=== PATIENT | female | born 1985 | race Caucasian/White ===

== ENCOUNTER 2017-02-28 13:53 | Emergency (ER) | payer OTHER ==
[2017-02-28 14:02] VITALS: TEMP 98.9; BMI 12.9
--- NOTE | 2017-02-28 14:42 | PDOC ---
History of Present Illness - General History Source: Patient Exam Limitations: No Limitations - History of Present Illness Initial Comments: 02/28/17 14:47 The patient is a 31 year-old woman with a significant past medical history of hypertension, elevated liver enzymes (1 year ago), gastroesophageal reflux disease and psoriasis who presents to the emergency department for further evaluation of right foot swelling and pain for the past week. Patient states that this has happened before with her left leg, for which she was informed that her leg swelling/pain was due to her elevated liver enzymes. She believes that her right leg is infected as she ripped and might've had a cut. She also notes redness upon her right leg for the past 2-3 days. She reports unbearable pain with a rated 10/10 in severity that is exacerbated when walking. She states that she is unable to move around and is currently ambulatory with her father's wheelchair. Today, she notes that her foot is draining, thus presenting to the ED. She also reports dramatic weight loss over the past 2-3 years. She believes she is currently 75 lbs. She denies loss of appetite. She denies fever, chills, weakness. No numbness, weakness and tingling sensations to her extremities No chest pain, lightheadedness, dizziness, headaches, visual changes No abdominal pain, nausea, vomiting, diarrhea. No urinary complaints She has an appointment with GI Specialist, Dr. Moss on 03/05/2017. Allergies: No Known Drug Allergies Past Surgical History: None reported. Social History: Current everyday smoker (5 cigarettes/day). Occasional ETOH use (recent ETOH use approximately 2 days ago ) No recreational drug use. Primary Care Physician: Dr. Oanh Cordon Retail Delivery Driver: Dr. Wesley Moss <Charlene Ayala - Last Filed: 02/28/17 15:27> <Clare Isabel - Last Filed: 02/28/17 17:59> - General Chief Complaint: Edema Stated Complaint: RT FOOT SWELLING Time Seen by Provider: 02/28/17 14:42 Past History <Charlene Ayala - Last Filed: 02/28/17 15:27> - Past Medical History GI Disorders: Yes (ACID REFLUX.) HTN: Yes Liver Disease: (ELEVATED LIVER ENZYMES.) Other medical history: PSORIASIS. - Psycho/Social/Smoking Cessation Hx Anxiety: No Suicidal Ideation: No Smoking History: Current every day smoker Number of Cigarettes Smoked Daily: 5 Information on smoking cessation initiated: No Hx Alcohol Use: Yes Drug/Substance Use Hx: No Substance Use Type: Alcohol <Clare Isabel - Last Filed: 02/28/17 17:59> - Past Medical History Allergies/Adverse Reactions: Allergies Allergy/AdvReac Type Severity Reaction Status Date / Time No Known Allergies Allergy Verified 02/28/17 13:58 Home Medications: Ambulatory Orders Methadone [Dolophine -] 30 mg PO DAILY 11/15/13 Cefpodoxime Proxetil [Vantin -] 100 mg PO BID #28 tablet 12/29/13 Cephalexin Monohydrate [Keflex -] 500 mg PO Q6H #28 capsule 02/28/17 Review of Systems - Review of Systems Able to Perform ROS?: Yes Comments:: 02/28/17 14:49 Constitutional - Pt denies Fever, Chills, weakness, HEENT: denies vision changes, sore throat Respiratory: Denies cough, sob, hemoptysis Cardiac: denies chest pain, palpitations, light headedness, leg swelling Abd/GI: denies abd pain, nausea, vomiting, blood per rectum, melena, diarrhea : denies dysuria, frequency, discharge Musculoskeletal - Right foot swelling/pain. denies back pain skin - History of psoriasis. denies bruising, erythema, rash neurological: denies headache, numbness, focal weakness, tingling, ataxia, weakness hematologic: denies anemia, easy bruising, easy bleeding <Charlene Ayala - Last Filed: 02/28/17 15:27> *Physical Exam - Vital Signs Last Vital Signs Temp Pulse Resp BP Pulse Ox 98.9 F 115 H 18 97/56 98 02/28/17 13:57 02/28/17 13:57 02/28/17 13:57 02/28/17 13:57 02/28/17 13:57 - Physical Exam Comments: 02/28/17 14:50 GENERAL: The patient is awake, alert, and fully oriented. In no acute distress. +Jaundiced. +Cachetic. Strong alcohol smell on breath. HEAD: Normocephalic, atraumatic. EYES: extraocular movements intact, +sclera icteric, conjunctiva clear. ENT: Normal voice, moist mucous membranes. NECK: Normal range of motion, supple without lymphadenopathy, JVD, or masses. LUNGS: Breath sounds equal, clear to auscultation bilaterally. No wheezes, no crackles, no rales. HEART: Regular rate and rhythm, normal S1 and S2 without murmur, rub or gallop. ABDOMEN: Soft, nontender, normoactive bowel sounds. No guarding, no rebound. No masses. EXTREMITIES: Normal range of motion, bilateral edema of both feet with weeping. No clubbing or cyanosis. No cords, erythema, or tenderness. NEUROLOGICAL: Fully Oriented, Alert, Normal Mood/Affect, Motor Strength 5/5. No facial assymetry, Normal speech SKIN: Jaundiced. <Charlene Ayala - Last Filed: 02/28/17 15:27> - Vital Signs Last Vital Signs Temp Pulse Resp BP Pulse Ox 98.9 F 115 H 18 97/56 98 02/28/17 13:57 02/28/17 13:57 02/28/17 13:57 02/28/17 13:57 02/28/17 13:57 <Clare Isabel - Last Filed: 02/28/17 17:59> Heart Score/ECG Review #1 02/28/17 15:27 Reviewed and interpreted by Dr. Clare Isabel IMPRESSION: Sinus rhythm at 98 bpm with an occasional PVC. No acute ST segment changes. <Charlene Ayala - Last Filed: 02/28/17 15:27> ED Treatment Course - LABORATORY CBC & Chemistry Diagram: 02/28/17 14:40 02/28/17 14:40 <Charlene Ayala - Last Filed: 02/28/17 15:27> - LABORATORY CBC & Chemistry Diagram: 02/28/17 14:40 02/28/17 14:40 <Clare Isabel - Last Filed: 02/28/17 17:59> Medical Decision Making - Medical Decision Making 02/28/17 16:20 I, Dr. Clare Isabel, attest that the scribes documentation that appears above has been prepared under my direction and personally reviewed by me. I confirmed that the note above accurately reflects all work, treatment, procedures, and medical decision-making performed by me. Pt is thin and cachectic, strong smell of alcohol on breathe, pt c/o severe pain in the foot to the point that she cannot walk. Uric acid level added to todays labs along with alcohol level, pt says her last drink was two days ago. Pt with elevated wbc, blood cx and antibiotics ordered will admit to hospital. xray o her foot ordered 02/28/17 16:22 02/28/17 17:56 Pt refusing admision, pt is aware of elevated wbc, liver enzymes, pt is aware that she is at risk for sepsis or even , pt's mother at her bedside. Pt with aob denied drinking in the last two days, alcohol level is 200, Pt still says she has not drank recently, Pt's mother says she will return she just has to take care of her pets, Both mother and pt are aware that she should stay in hospital will order crutches for pt, mother also has a wheel chair that pt can use at home because she says she cannot walk <Clare Isabel - Last Filed: 02/28/17 17:59> *DC/Admit/Observation/Transfer - Attestations Scribe Attestion: 02/28/17 14:50 Documentation prepared by Charlene Ayala, acting as medical staff services coordinator for Clare Isabel DO. <Charlene Ayala - Last Filed: 02/28/17 15:27> <Clare Isabel - Last Filed: 02/28/17 17:59> Diagnosis at time of Disposition: Foot pain - Discharge Dispostion Disposition: AGAINST MEDICAL ADVICE Condition at time of disposition: Stable - Prescriptions Prescriptions: Cephalexin Monohydrate [Keflex -] 500 mg PO Q6H #28 capsule - Referrals Referrals: Oanh Cordon [Primary Care Provider] - - Patient Instructions Printed Discharge Instructions: DI for Sepsis -- Adult, Liver Function Tests Additional Instructions: return to ed for fever, increase pain in feet , abdomen or as needed
[2017-02-28 14:55] LABS: BASOPHIL 0.6 % (0-2.0); MCH 34.4 pg (25.7-33.7); MCHC 33.8 g/dl (32.0-36.0); MEAN CELL VOLUME 101.6 fl (80-96); MEAN PLT VOLUME 7.8 fl (7.5-11.1); NEUTROPHILS 90.1 % (42.8-82.8); PLATELET COUNT 195 K/MM3 (134-434); RDW 13.8 % (11.6-15.6)
[2017-02-28 15:25] LABS: ALBUMIN 1.2 g/dl (3.4-5.0); ALK PHOS 661 U/L (45-117); ANION GAP 13 (8-16); CALCIUM 7.6 mg/dL (8.5-10.1); CO2 25 mmol/L (21-32); COCKROFT - GAULT 109.4375; CREATININE 0.4 mg/dL (0.55-1.02); GLUCOSE,RANDOM 97 mg/dL (74-106); SGOT/AST 277 U/L (15-37); SGPT/ALT 38 U/L (12-78); TOT PROT 7.4 g/dl (6.4-8.2)
[2017-02-28] MEDS ORDERED: CEFTRIAXONE 1 GM in DEXTROSE 5%-WATER - 100 ML IVPB ONE (15:27)
[2017-02-28] MEDS ORDERED: SODIUM CHLORIDE 1,000 ML IV SCH (15:30)
[2017-02-28] MEDS ORDERED: CEFTRIAXONE 50 ML ONE (16:12)
[2017-02-28 17:59] VITALS: BP 103/72; PULSE 113
--- NOTE | 2017-03-02 00:12 | EKG ---
Test Reason : Blood Pressure : / mmHG Vent. Rate : 098 BPM Atrial Rate : 098 BPM P-R Int : 116 ms QRS Dur : 076 ms QT Int : 386 ms P-R-T Axes : 075 082 068 degrees QTc Int : 492 ms POOR DATA QUALITY, INTERPRETATION MAY BE ADVERSELY AFFECTED SINUS RHYTHM WITH PREMATURE ATRIAL COMPLEXES POSSIBLE LEFT ATRIAL ENLARGEMENT NONSPECIFIC ST ABNORMALITY PROLONGED QT ABNORMAL ECG NO PREVIOUS ECGS AVAILABLE Confirmed by EMILIA TAVERAS, MAKENNA ([id number]) on 03/02/2017 12:12:24 AM Referred By: Confirmed By:MAKENNA NIETO MD
== END 2017-02-28 18:04 | disposition left against medical advice (07) ==
LOC: SUPCPDRO 13:53 → JER 13:53
DX: M79.671 Pain in right foot (principal); I10 Essential (primary) hypertension; R74.8 Abnormal levels of other serum enzymes; K21.9 Gastro-esophageal reflux disease without esophagitis; L40.9 Psoriasis, unspecified; F17.210 Nicotine dependence, cigarettes, uncomplicated; F10.10 Alcohol abuse, uncomplicated; Y90.7 Blood alcohol level of 200-239 mg/100 ml
CPT/HCPCS: 36415; 73630-TC-RT; 80053; 80307; 84550; 84703; 85025; 87040; 93005; 93010; 96365; 99284-25

== ENCOUNTER 2017-03-13 18:11 | Emergency (ER) | payer OTHER ==
[2017-03-13 18:35] VITALS: BP 91/54; PULSE 100; TEMP 97.5; BMI 14.1
[2017-03-13] MEDS ORDERED: FOLIC ACID INJECTION - 1 MG, THIAMINE HCL 100 MG, MULTIVIT INJECTION ADULT 10 ML in SOD... IVPB ONE (19:55)
[2017-03-13] MEDS ORDERED: LACTULOSE 20 GM/30 ML UDC (FOR ORAL USE ONLY) PO ONE (19:56)
[2017-03-13] MEDS ORDERED: MAGNESIUM SULF 50% (8.12 MEQ/2 ML-1 GM VIAL) IVPB ONE (19:56)
--- NOTE | 2017-03-13 20:00 | PDOC ---
History of Present Illness - General History Source: Patient Exam Limitations: No Limitations - History of Present Illness Initial Comments: 03/13/17 20:17 The patient is a 31 year old female with a significant past medical history of elevated liver enzymes, alcohol abuse, hypertension, GERD, psoriasis ( previously on a sample portion of Otezla), and significant weight loss, who presents to the ER with bilateral lower extremity swelling for one month. Patient localizes the swelling to the ankles. She states fluid has been draining from the area and the skin has been splitting secondary to edema. Patient has difficulty walking due to pain in swollen ankles. Patient reports she was at this ER one month ago for similar symptoms. She was 75 pounds then and now measures 82 pounds, secondary to the fluid retention. Patient refused admission at that time. She was given Cephalexin and finished the medication two days ago. Patient also complains of slight generalized abdominal pain accompanied with bloating and constipation. She admits she has difficulty breathing and is concerned she may have ascites. Patient also reports feeling chills. Patient denies loss of appetite and reports her last meal was rice, cheese, and vegetables. Patient reports she took a sample portion of Otezlo but her insurance is not able to approve her of additional medication. Denies chest pain, diaphoresis Denies fever Denies nausea, vomiting, diarrhea Social Hx: Patient states she drinks a few glasses of wine and a cocktail. She smokes 5 cigs/day. Allergies: NKDA GI: Dr. Moss <Serena Baker - Last Filed: 03/14/17 00:44> <Elidia Jordan - Last Filed: 03/14/17 05:21> - General Chief Complaint: Edema Stated Complaint: BOTH LEGS SWOLLEN/INFECTED Time Seen by Provider: 03/13/17 19:36 Past History <Serena Baker - Last Filed: 03/14/17 00:44> - Past Medical History GI Disorders: Yes (ACID REFLUX.) HTN: Yes Liver Disease: (ELEVATED LIVER ENZYMES.) Other medical history: PSORIASIS - Psycho/Social/Smoking Cessation Hx Anxiety: No Suicidal Ideation: No Smoking History: Current every day smoker Have you smoked in the past 12 months: Yes Number of Cigarettes Smoked Daily: 5 Information on smoking cessation initiated: No Hx Alcohol Use: Yes Drug/Substance Use Hx: No Substance Use Type: Alcohol <Elidia Jordan - Last Filed: 03/14/17 05:21> - Past Medical History Allergies/Adverse Reactions: Allergies Allergy/AdvReac Type Severity Reaction Status Date / Time No Known Allergies Allergy Verified 03/13/17 18:29 Home Medications: Ambulatory Orders Cephalexin Monohydrate [Keflex -] 500 mg PO Q6H #28 capsule 02/28/17 Cephalexin [Keflex] 250 mg PO QID #28 capsule 03/14/17 Review of Systems - Review of Systems Able to Perform ROS?: Yes Comments:: 03/13/17 20:17 CONSTITUTIONAL: Pesent: (+) chills Absent: fever, diaphoresis, generalized weakness, malaise, loss of appetite HEENT: Absent: rhinorrhea, nasal congestion, throat pain, throat swelling, difficulty swallowing, mouth swelling, ear pain, eye pain, visual Changes CARDIOVASCULAR: Absent: chest pain, syncope, palpitations, irregular heart rate, lightheadedness , peripheral edema RESPIRATORY: Absent: cough, shortness of breath, dyspnea with exertion, orthopnea, wheezing, stridor, hemoptysis GASTROINTESTINAL: Present: (+) abdominal pain, (+) constipation Absent: nausea, vomiting, diarrhea, melena, hematochezia GENITOURINARY: Absent: dysuria, frequency, urgency, hesitancy, hematuria, flank pain, genital pain MUSCULOSKELETAL: Present: (+) bilateral ankle swelling Absent: myalgia, arthralgia, joint swelling SKIN: Present: (+) psoriasis Absent: rash, itching, pallor HEMATOLOGIC/IMMUNOLOGIC: Absent: easy bleeding, easy bruising, lymphadenopathy, frequent infections ENDOCRINE: Present: (+) weight loss Absent: unexplained weight gain, heat intolerance, cold intolerance NEUROLOGIC: Absent: headache, focal weakness or paresthesias, dizziness, unsteady gait, seizure, mental status changes, bladder or bowel incontinence PSYCHIATRIC: Absent: anxiety, depression, suicidal or homicidal ideation, hallucinations. <Serena Baker - Last Filed: 03/14/17 00:44> *Physical Exam - Vital Signs Last Vital Signs Temp Pulse Resp BP Pulse Ox 97.5 F L 100 H 19 91/54 99 03/13/17 18:30 03/13/17 18:30 03/13/17 18:30 03/13/17 18:30 03/13/17 18:30 - Physical Exam Comments: 03/13/17 20:19 GENERAL: (+) Cachectic, well nourished. Awake and alert. No acute distress. HEENT: (+) Sclera icteric. Normocephalic, atraumatic. PERRLA, EOMI. No conjunctival pallor. Moist mucous membranes. Oropharynx is clear. NECK: Supple. Full ROM. No JVD. Carotid pulses 2+ and symmetric, without bruits. No thyromegaly. No lymphadenopathy. CARDIOVASCULAR: (+) Tachycardic. Regular rhythm. No murmurs, rubs, or gallops. Distal pulses are 2+ and symmetric. PULMONARY: No evidence of respiratory distress. Lungs clear to auscultation bilaterally. No wheezing, rales or rhonchi. ABDOMINAL: Soft. Non-tender. Non-distended. No rebound or guarding. No organomegaly. Normoactive bowel sounds. MUSCULOSKELETAL No flank pain. Normal range of motion at all joints. No bony deformities or tenderness. No CVA tenderness. EXTREMITIES: No cyanosis. No clubbing. No edema. No calf tenderness. SKIN: (+) Jaundive. (+) Psoriatic red patches on upper extremities. Weeping pitting edema in the bilateral lower extremities. Normal capillary refill. NEUROLOGICAL: Alert, awake, appropriate. Cranial nerves 2-12 intact. No deficits to light touch and temperature in face, upper extremities and lower extremities. No motor deficits in the in face, upper extremities and lower extremities. Normoreflexic in the upper and lower extremities. Normal speech. Toes are down- going bilaterally. Gait is normal without ataxia. PSYCHIATRIC: Cooperative. Good eye contact. Appropriate mood and affect. <OliviaSerena - Last Filed: 03/14/17 00:44> - Vital Signs Last Vital Signs Temp Pulse Resp BP Pulse Ox 97.5 F L 100 H 19 91/54 99 03/13/17 18:30 03/13/17 18:30 03/13/17 18:30 03/13/17 18:30 03/13/17 18:30 <Elidia Jordan - Last Filed: 03/14/17 05:21> ED Treatment Course - LABORATORY CBC & Chemistry Diagram: 03/13/17 20:24 03/13/17 20:24 - RADIOLOGY Radiograph Interpretation: 03/14/17 00:[address] impression reported by Dr. Kenny Lacey: Ascites. Mild hepatomegaly with a dense echotexture consistent with fatty infiltration versus hepatocellular disease. Gallbladder was no visualized. Limited visualization of a normal size common bile duct. US Uplex 2 legs: There is no evidence of deep venous thromboses in both lower extremities. <Serena Baker - Last Filed: 03/14/17 00:44> - LABORATORY CBC & Chemistry Diagram: 03/13/17 20:24 03/13/17 20:24 <Elidia Jordan - Last Filed: 03/14/17 05:21> Medical Decision Making - Medical Decision Making 03/13/17 22:13 Pt comes in appearing jaudiced and severely cachectic with edematous and weeping calves bilaterally. She has psoriasis that is untreated and she has a history of alcohol abuse and methadone use and tobacco use. Pt complains of leg swelling. SHe was here 2 weeks ago for cellulitis of her legs and she was treated with ceftriaxone in the ER, she refused admission at that time and was sent home with keflex. 03/13/17 22:23 WBC is improving, but still high; Pt's leg edema is worse and weeping bilaterally. Pt is severely jaundiced; T bili is elevated. 03/14/17 05:14 Sono demonstrates ascites. I spoke to Dr. Modi; we discussed admitting the patient. Patient is refusing to stay; she is making up excuses. Wants to go home; she claims she needs to care for her niece. <Elidia Jordan - Last Filed: 03/14/17 05:21> *DC/Admit/Observation/Transfer - Attestations Scribe Attestion: 03/13/17 20:22 Documentation prepared by Serena Baker, acting as medical office assistant instructor for Elidia Jordan MD. <Serena Baker - Last Filed: 03/14/17 00:44> <Elidia Jordan - Last Filed: 03/14/17 05:21> Diagnosis at time of Disposition: Jaundice, Hypoalbuminemia, Alcoholic liver damage, Cachexia, Peripheral edema - Discharge Dispostion Disposition: AGAINST MEDICAL ADVICE Condition at time of disposition: Poor - Prescriptions Prescriptions: Cephalexin [Keflex] 250 mg PO QID #28 capsule - Referrals Referrals: Oanh Cordon [Primary Care Provider] -
[2017-03-13] MEDS ORDERED: LACTULOSE 20 GM/30 ML UDC (FOR ORAL USE ONLY) ONE (20:32)
[2017-03-13] MEDS ORDERED: MAGNESIUM SULF 50% (8.12 MEQ/2 ML-1 GM VIAL) ONE (20:32)
[2017-03-13 20:33] LABS: BASOPHIL 0.8 % (0-2.0); EOSINOPHIL 0.6 % (0-4.5); MCH 34.4 pg (25.7-33.7); MCHC 33.5 g/dl (32.0-36.0); MEAN CELL VOLUME 102.6 fl (80-96); MEAN PLT VOLUME 8.2 fl (7.5-11.1); NEUTROPHILS 85.9 % (42.8-82.8); PLATELET COUNT 232 K/MM3 (134-434); RDW 15.5 % (11.6-15.6); WHITE BLOOD COUNT 15.6 K/mm3 (4.0-10.0)
[2017-03-13 21:10] LABS: ALBUMIN 1.3 g/dl (3.4-5.0); AMYLASE 80 U/L (25-115); ANION GAP 13 (8-16); CALCIUM 7.3 mg/dL (8.5-10.1); CO2 24 mmol/L (21-32); COCKROFT - GAULT 119.6545; CREATININE 0.4 mg/dL (0.55-1.02); GLUCOSE,RANDOM 76 mg/dL (74-106); SGOT/AST 205 U/L (15-37); SGPT/ALT 24 U/L (12-78)
[2017-03-13 21:12] LABS: ALK PHOS 623 U/L (45-117); BILIRUBIN,TOTAL 5.9 mg/dL (0.2-1.0); TOT PROT 7.6 g/dl (6.4-8.2)
--- NOTE | 2017-03-16 12:51 | EKG ---
Test Reason : Blood Pressure : / mmHG Vent. Rate : 073 BPM Atrial Rate : 073 BPM P-R Int : 132 ms QRS Dur : 084 ms QT Int : 448 ms P-R-T Axes : 072 083 068 degrees QTc Int : 493 ms NORMAL SINUS RHYTHM POSSIBLE LEFT ATRIAL ENLARGEMENT RSR' OR QR PATTERN IN V1 SUGGESTS RIGHT VENTRICULAR CONDUCTION DELAY PROLONGED QT ABNORMAL ECG WHEN COMPARED WITH ECG OF 28-FEB-2017 15:04, PREMATURE ATRIAL COMPLEXES ARE NO LONGER PRESENT Confirmed by SOTO GRAFF MD ([id number]) on 03/16/2017 12:51:17 PM Referred By: Confirmed By:SOTO GRAFF MD
== END 2017-03-14 00:45 | disposition left against medical advice (07) ==
LOC: JER 18:11
PROC: 3E0337Z Introduction of Electrolytic and Water Balance Substance into Peripheral Vein, Percutaneous Approach (ICD-10-PCS; principal; 2017-03-13)
PROC: 3E033GC Introduction of Other Therapeutic Substance into Peripheral Vein, Percutaneous Approach (ICD-10-PCS; 2017-03-13)
DX: R17 Unspecified jaundice (principal); L08.89 Other specified local infections of the skin and subcutaneous tissue; R18.8 Other ascites; I10 Essential (primary) hypertension; K21.9 Gastro-esophageal reflux disease without esophagitis; R94.5 Abnormal results of liver function studies; R63.4 Abnormal weight loss; Z68.1 Body mass index [BMI] 19.9 or less, adult; F10.10 Alcohol abuse, uncomplicated; F17.210 Nicotine dependence, cigarettes, uncomplicated
CPT/HCPCS: 36415; 76700-TC; 80053; 82140; 82150; 83690; 83880; 85025; 93005; 93010; 93970-TC; 96361; 96374; 99283-25

== ENCOUNTER 2017-03-19 15:28 | Inpatient (IN) | payer OTHER ==
[2017-03-19 15:38] VITALS: BMI 12.9
[2017-03-19] MEDS ORDERED: SODIUM CHLORIDE 1,000 ML IV ONE (17:18)
--- NOTE | 2017-03-19 17:18 | PDOC ---
History of Present Illness <Channing Cavazos - Last Filed: 03/19/17 19:14> - General History Source: Patient Exam Limitations: No Limitations - History of Present Illness Initial Comments: 03/19/17 20:29 The patient is a 31 year old female with a significant past medical history of elevated liver enzymes, alcohol abuse, hypertension, GERD, psoriasis, and significant weight loss, who presents to the emergency department complaining of midsternal burning for approximately 1 week. The patient reports she has been able to eat small amounts of food, and has some nausea, pt states the pain is similar to her hx of GERD. Patient report bilateral lower extremity swelling for approximately 1 month. She reports her swelling has worsened since her last presentation on 03/13/17, and extended up her right thigh into her right labia. Pt states she had a study to r/o DVT the last time she was here. Patient reports difficulty ambulating secondary to leg swelling and pain in L foot. Denies any chest pain, diaphoresis, or palpitations. Patient reports mild abdominal pain, but denies diarrhea or constipation. She denies any fever, chills, headache, or dizziness. She denies any dysuria, hematuria, frequency, or urgency. Allergies: NKDA Social History: Current everyday smoker. ETOH Abuse. No recreational drug use. GI: Dr. Moss <Mark Canela - Last Filed: 03/19/17 20:38> - General Chief Complaint: Wound Infection Stated Complaint: INFECTION, VOMITING Time Seen by Provider: 03/19/17 17:15 Past History <Channing Cavazos - Last Filed: 03/19/17 19:14> - Past Medical History GI Disorders: Yes (ACID REFLUX.) HTN: Yes Liver Disease: (ELEVATED LIVER ENZYMES.) - Psycho/Social/Smoking Cessation Hx Anxiety: No Suicidal Ideation: No Smoking History: Current every day smoker Have you smoked in the past 12 months: Yes Number of Cigarettes Smoked Daily: 5 Information on smoking cessation initiated: No Hx Alcohol Use: Yes Drug/Substance Use Hx: No Substance Use Type: Alcohol <Mark Canela - Last Filed: 03/19/17 20:38> - Past Medical History Allergies/Adverse Reactions: Allergies Allergy/AdvReac Type Severity Reaction Status Date / Time No Known Allergies Allergy Verified 03/19/17 15:36 Home Medications: Ambulatory Orders Cephalexin Monohydrate [Keflex -] 500 mg PO Q6H #28 capsule 02/28/17 Cephalexin [Keflex] 250 mg PO QID #28 capsule 03/14/17 Review of Systems - Review of Systems Able to Perform ROS?: Yes Comments:: 03/19/17 20:30 CONSTITUTIONAL: No reported: Fever, Chills, Diaphoresis, Generalized Weakness, Malaise, Loss of Appetite HEENT: No reported: Rhinorrhea, Nasal Congestion, Throat Pain, Throat Swelling, Difficulty Swallowing, Mouth Swelling, Ear Pain, Eye Pain, Visual Changes CARDIOVASCULAR: Present: +bilateral lower extremity edema, +right labial edema No reported: Chest Pain, Syncope, Palpitations, Irregular Heart Rate, Lightheadedness RESPIRATORY: No reported: Cough, Shortness of Breath, SOB with Exertion, Orthopnea, Wheezing , Stridor, Hemoptysis GASTROINTESTINAL: Present: +Abdominal pain, +Acid reflux No reported: Abdominal Distension, Nausea, Vomiting, Diarrhea, Constipation, Melena, Hematochezia GENITOURINARY: No reported: Dysuria, Frequency, Urgency, Hesitancy, Flank Pain, Genital Pain MUSCULOSKELETAL: No reported: Myalgia, Arthralgia, Joint Swelling, Back pain, Neck Pain SKIN: Present: +Psoriasis, wound on L foot. No reported: Rash, Itching, Pallor HEMEATOLOGIC/IMMUNOLOGIC: No reported: Easy Bleeding, Easy Bruising, Lymphadenopathy, Frequent infections ENDOCRINE: No reported: Unexplained Weight Gain, Unexplained Weight Loss, Heat Intolerance , Cold Intolerance NEUROLOGIC: No reported: Headache, Focal Weakness, Paresthesias, Vertigo, Lightheadedness, Unsteady Gait, Seizure, Mental Status Changes, Incontinence PSYCHIATRIC: No reported: Anxiety, Depression <Rola,Mark - Last Filed: 03/19/17 20:38> *Physical Exam - Vital Signs Last Vital Signs Temp Pulse Resp BP Pulse Ox 98.5 F 140 H 20 106/62 97 03/19/17 15:36 03/19/17 15:36 03/19/17 15:36 03/19/17 15:36 03/19/17 15:36 <CavazosChanning roth - Last Filed: 03/19/17 19:14> - Vital Signs Last Vital Signs Temp Pulse Resp BP Pulse Ox 98.5 F 140 H 20 106/62 97 03/19/17 15:36 03/19/17 15:36 03/19/17 15:36 03/19/17 15:36 03/19/17 15:36 - Physical Exam Comments: 03/19/17 20:30 GENERAL: The patient is awake, alert, and fully oriented, chacectic appearing. HEAD: Normocephalic, atraumatic. EYES: jaundiced sclera ENT: Normal voice, Moist mucous membranes. NECK: Normal range of motion, supple LUNGS: Breath sounds equal, clear to auscultation bilaterally. No wheezes, no rhonchi, no rales. HEART: Regular rate and rhythm, without murmur, rub or gallop. ABDOMEN: slightly distended abdomen, no focal tenderness, +fluid wave EXTREMITIES: Normal range of motion, +2 pitting edema in RLE, +1 in LLE,. No calf tenderenss. skin breakdown on dorsum of left foot without significant wamrth NEUROLOGICAL: No facial asymmetry, Normal speech. PSYCH: Normal mood, normal affect. SKIN: Warm, Dry, normal turgor, +psoriatic plaques on skin, <Rola,Mark - Last Filed: 03/19/17 20:38> Heart Score/ECG Review - ECG Impressions Comment:: 03/19/17 19:13 Twelve-lead EKG was performed and reviewed by me. There is normal sinus rhythm with a normal rate. Rate of 92 The axis is normal. QTc interval of 492. There is normal R wave progression Nonspecific ST-T wave changes <Rola,Mark - Last Filed: 03/19/17 20:38> ED Treatment Course - LABORATORY CBC & Chemistry Diagram: 03/19/17 16:42 03/19/17 16:42 - ADDITIONAL ORDERS Additional order review: Laboratory Results 03/19/17 03/19/17 03/19/17 16:42 16:42 16:42 Sodium 137 Potassium 3.4 L Chloride 97 L Carbon Dioxide 22 Anion Gap 18 H BUN 5 L D Creatinine 0.6 D Creat Clearance w eGFR > 60 Random Glucose 111 H D Lactic Acid 8.913 H* Calcium 7.9 L Total Bilirubin 6.1 H AST 215 H ALT 24 Alkaline Phosphatase 855 H D Total Protein 7.9 Albumin 1.3 L Serum , Qual Negative 03/19/17 16:42 RBC 2.88 L MCV 103.6 H MCHC 32.9 RDW 14.9 MPV 8.0 Neutrophils % 95.0 H Lymphocytes % 3.0 L D Monocytes % 2.0 L Eosinophils % 0.0 D Basophils % 0.0 - Medications Given in the ED: ED Medications Discontinued Medications Generic Name Dose Route Start Last Admin Trade Name Ruben PRN Reason Stop Dose Admin Al Hydroxide/Mg Hydroxide 30 ml 03/19/17 17:54 03/19/17 18:13 Mylanta Suspension - PO 03/19/17 17:55 30 ml ONCE ONE Administration Sodium Chloride 1,000 mls @ 1,000 mls/hr 03/19/17 17:18 03/19/17 18:13 Normal Saline - IV 03/19/17 18:17 1,000 mls/hr .Q1H ONE Administration Famotidine/Sodium Chloride 20 50 mls @ 100 mls/hr 03/19/17 17:54 03/19/17 18:13 mg/ Miscellaneous IVPB 03/19/17 18:23 100 mls/hr ONCE ONE Administration Ondansetron HCl 4 mg 03/19/17 17:33 03/19/17 18:13 Zofran Injection IVPB 03/19/17 17:34 4 mg ONCE ONE Administration <Channing Cavazos - Last Filed: 03/19/17 19:14> - LABORATORY CBC & Chemistry Diagram: 03/19/17 16:42 03/19/17 16:42 <RolaMark - Last Filed: 03/19/17 20:38> Medical Decision Making - Medical Decision Making 03/19/17 18:51 First call placed to Dr. Modi at 18:51. Awaiting call back. Second call placed to Dr. Modi at 19:15. Case discussed at this time. <Channing Cavazos - Last Filed: 03/19/17 19:14> - Medical Decision Making 03/19/17 18:38 31y F hx of psoriasis pts HR at traige was 140, but i beleive tihs was an error, her HR on my exam was <100 and on th ekg was 92 pt appears well, in no acute distress but does appear cachectic and jaundiced, + skin break down but no obvious souce of infection 03/19/17 19:18 pts labs reviwed noted for leukocytosis, left shift, increasd from prior visit pts LFTs noted with elevated bilirubin, lipase newly elevated --> will obtain GB US although pt had one recently ill give pt vanc zosyn for empiric coverage no abd tenderness on exam, unclear source of leukocytosis --> skin? vs GI case dw dr. Modi pt will likely need admission awaiting US to r/o cholecysitis or other pathology depending repeat LA and US results will dispo patient to med/surg vs. tele vs icu clinically, pt appears well, and is no distress, sitting comfortably in her stretcher and vitals are nroaml <Mark Canela - Last Filed: 03/19/17 20:38> *DC/Admit/Observation/Transfer <Channing Cavazos - Last Filed: 03/19/17 19:14> - Discharge Dispostion Admit: Yes <Mark Canela - Last Filed: 03/19/17 20:38> Diagnosis at time of Disposition: Cachexia, Jaundice, Hypoalbuminemia, Abdominal pain, Peripheral edema, Lactic acid acidosis - Referrals Referrals: Ralph Cordon MD [Primary Care Provider] -
[2017-03-19] MEDS ORDERED: ONDANSETRON 4 MG/2 ML VIAL IVPB ONE (17:33)
[2017-03-19] MEDS ORDERED: MAG HYDROX/AL HYDROX/SIMETH 355 ML ORAL.SUSP PO ONE (17:54)
[2017-03-19] MEDS ORDERED: FAMOTIDINE 20 MG/50 ML IVPB 20 MG in PREMIX 50 IVPB ONE (17:54)
[2017-03-19 17:55] LABS: MCH 34.1 pg (25.7-33.7); MCHC 32.9 g/dl (32.0-36.0); MEAN CELL VOLUME 103.6 fl (80-96); PLATELET COUNT 194 K/MM3 (134-434); RDW 14.9 % (11.6-15.6); WHITE BLOOD COUNT 18.7 K/mm3 (4.0-10.0)
[2017-03-19] MEDS ORDERED: MAG HYDROX/AL HYDROX/SIMETH 30 ML UNIT-DOSE CUP ONE (18:05)
[2017-03-19] MEDS ORDERED: FAMOTIDINE 20 MG/50 ML IVPB 50 ML IVPB ONE (18:06)
[2017-03-19] MEDS ORDERED: ONDANSETRON 4 MG/2 ML VIAL ONE (18:06)
[2017-03-19 18:37] LABS: ALBUMIN 1.3 g/dl (3.4-5.0); ANION GAP 18 (8-16); BILIRUBIN,TOTAL 6.1 mg/dL (0.2-1.0); CALCIUM 7.9 mg/dL (8.5-10.1); CO2 22 mmol/L (21-32); COCKROFT - GAULT 72.9555; CREATININE 0.6 mg/dL (0.55-1.02); GLUCOSE,RANDOM 111 mg/dL (74-106); SGOT/AST 215 U/L (15-37); SGPT/ALT 24 U/L (12-78); TOT PROT 7.9 g/dl (6.4-8.2)
[2017-03-19 18:38] LABS: ALK PHOS 855 U/L (45-117)
[2017-03-19] MEDS ORDERED: PIPERACILLIN/TAZOB 4.5 GM/100 ML PRE-DOCKED IVPB ONE (19:17)
[2017-03-19] MEDS ORDERED: VANCOMYCIN 1,000 MG in DEXTROSE 5%-WATER - 250 ML IVPB ONE (19:19)
[2017-03-19] MEDS ORDERED: VANCOMYCIN 1 GRAM (PRE-DOCKED) 250 ML IVPB ONE (21:33)
[2017-03-19 22:16] LABS: URINE APPEARANCE CLEAR; URINE COLOR AMBER; URINE GLUCOSE (UA) NEGATIVE (NEGATIVE); URINE KETONE NEGATIVE (NEGATIVE); URINE NITRITE NEGATIVE (NEGATIVE); URINE UROBILINOGEN 2.0 E.U/dl E.U./dl (0.2-1.0)
[2017-03-19 22:25] LABS: URINE BLOOD 1+ (NEGATIVE); URINE LEUK ESTERASE TRACE (NEGATIVE); URINE PROTEIN 1+ (NEGATIVE)
[2017-03-19 22:56] LABS: URINE RBC 1 /hpf (0-3); URINE WBC 9 /hpf (3-5)
[2017-03-19 22:57] LABS: URINE MUCUS MANY
[2017-03-19] MEDS ORDERED: PIPERACILLIN/TAZOB 4.5 GM 100 ML IVPB ONE (23:50)
[2017-03-20] MEDS ORDERED: DEXTROSE 5%-0.45% SALINE 1,000 ML IV SCH (01:30)
[2017-03-20] MEDS: PIPERACILLIN/TAZOB 3.375 GM/50 ML PRE-DOCKED IVPB SCH (04:22)
[2017-03-20 06:49] LABS: BASOPHIL 0.5 % (0-2.0); MCH 34.3 pg (25.7-33.7); MCHC 33.3 g/dl (32.0-36.0); MEAN CELL VOLUME 102.8 fl (80-96); MEAN PLT VOLUME 8.2 fl (7.5-11.1); NEUTROPHILS 89.8 % (42.8-82.8); PLATELET COUNT 158 K/MM3 (134-434); RDW 14.8 % (11.6-15.6); WHITE BLOOD COUNT 13.3 K/mm3 (4.0-10.0)
[2017-03-20 07:37] LABS: ALBUMIN 1.1 g/dl (3.4-5.0); AMYLASE 97 U/L (25-115); ANION GAP 14 (8-16); BILIRUBIN,TOTAL 5.7 mg/dL (0.2-1.0); CALCIUM 7.5 mg/dL (8.5-10.1); CO2 25 mmol/L (21-32); COCKROFT - GAULT 109.4375; CREATININE 0.4 mg/dL (0.55-1.02); GLUCOSE,RANDOM 84 mg/dL (74-106); SGOT/AST 167 U/L (15-37); SGPT/ALT 21 U/L (12-78); TOT PROT 6.9 g/dl (6.4-8.2)
[2017-03-20 07:38] LABS: ALK PHOS 744 U/L (45-117)
[2017-03-20] MEDS ORDERED: VANCOMYCIN 1 GRAM (PRE-DOCKED) 1,000 MG/250 ML BAG IVPB SCH (10:00)
--- NOTE | 2017-03-20 12:04 | CONSULT ---
Consult Consult Specialty:: infectious diseases Reason for Consultation:: cellulitis of the legs,ascites and blebs - History of Present Illness Chief Complaint: pain in the legs weakness bad distension ,inability to swallow History of Present Illness: 31 y/o female with PMH significant for chronic ETOH abuse, elevated LFT's, HTN, GERD, psoriasis cachexia. Pt presented to the ER bc of midsternal chest pain/ burning for approximately 1 week. Pt staates that this is similar to her GERD but she has been having more nausea. Pt was recently in the ER for similar complaints and left AMA. Pt also has bilateral lower extremity edema for 1 month. This now has spread up her rt thigh to her labia.She reports her swelling has worsened since her last presentation on 03/13/17, and extended up her right thigh into her right labia. patient also mentions that she has not been able to eat properly and lookng at ther she is extremely emaciated and inability to eat also patient has posriasis she has been non complaint and ahs not being taking treatment Reports midsternal burning that is worse than her baseline reflux. Poor oral intake. Significant N/V. Due to ascites, feels SOB when lying down. No fever or chills. No travel history or sick contacts. - History Source History Provided By: Patient, Medical Record Limitations to Obtaining History: Poor Historian - Alcohol/Substance Use Hx Alcohol Use: Yes - Smoking History Smoking history: Current every day smoker Have you smoked in the past 12 months: Yes Aproximately how many cigarettes per day: 5 Home Medications - Allergies Allergies/Adverse Reactions: Allergies Allergy/AdvReac Type Severity Reaction Status Date / Time No Known Allergies Allergy Verified 03/19/17 15:36 - Home Medications Home Medications: Ambulatory Orders Cephalexin 250 mg PO Q6H 03/21/17 Review of Systems - Review of Systems Constitutional: reports: Loss of Appetite, Weakness, Other Eyes: reports: No Symptoms HENT: reports: No Symptoms Neck: reports: No Symptoms Cardiovascular: reports: No Symptoms Respiratory: reports: No Symptoms Gastrointestinal: reports: Nausea, Vomiting, Other (inability to eat) Musculoskeletal: reports: Extremity Pain, Muscle Pain, Other Integumentary: reports: Rash, Wound, Other Neurological: reports: No Symptoms Endocrine: reports: No Symptoms Hematology/Lymphatic: reports: No Symptoms Psychiatric: reports: No Symptoms Physical Exam Vital Signs: Vital Signs Temperature 97.1 F L 03/20/17 06:42 Pulse Rate 83 03/20/17 08:17 Respiratory Rate 18 03/20/17 08:17 Blood Pressure 103/65 03/20/17 08:17 O2 Sat by Pulse Oximetry (%) 100 03/20/17 08:17 Constitutional: Yes: Anxious, Thin, Other (cahectic failure to thrive) Eyes: Yes: Sclera Icterus HENT: Yes: Atraumatic, Normocephalic Neck: Yes: Supple, Trachea Midline Cardiovascular: Yes: Regular Rate and Rhythm Respiratory: Yes: Poor Air Entry Gastrointestinal: Yes: Normal Bowel Sounds, Soft, Other (ascites) Musculoskeletal: Yes: Other Extremities: Yes: Other Integumentary: Yes: Rash, Other (blebs on the left foot) Neurological: Yes: Alert Psychiatric: Yes: Alert, Oriented Labs: CBC, BMP 03/20/17 06:10 03/20/17 06:10 Imaging - Results Chest X-ray: Report Reviewed, Image Reviewed Cat Scan: Report Reviewed, Image Reviewed Other: Report Reviewed, Image Reviewed Assessment/Plan Problem List - Problems (1) Sepsis Code(s): A41.9 - SEPSIS, UNSPECIFIED ORGANISM (2) Abdominal pain Code(s): R10.9 - UNSPECIFIED ABDOMINAL PAIN (3) Alcoholic liver damage Code(s): K70.9 - ALCOHOLIC LIVER DISEASE, UNSPECIFIED (4) Peripheral edema Code(s): R60.9 - EDEMA, UNSPECIFIED (5) Substance abuse Assessment/Plan: Will get psych consult Code(s): F19.10 - OTHER PSYCHOACTIVE SUBSTANCE ABUSE, UNCOMPLICATED (6) Jaundice Assessment/Plan: Due to liver dz Code(s): R17 - UNSPECIFIED JAUNDICE (7) Cachexia Code(s): R64 - CACHEXIA (8) Hypoalbuminemia Code(s): E88.09 - OTH DISORDERS OF PLASMA-PROTEIN METABOLISM, NEC (9) Lactic acid acidosis Code(s): E87.2 - ACIDOSIS (10) Peripheral edema Code(s): R60.9 - EDEMA, UNSPECIFIED after looking at the patient there is no doubt that she is extremly malnourished with dimnished immunity i also think there is some other issues going on plan will start patient on abx continue to monitor wbc close monitoring of the labial swelling and the ext swelling lactic acid follow rest as per primary
--- NOTE | 2017-03-20 13:27 | CON.PULM ---
Consult Consult Specialty:: PULM/CCM Referred by:: ER Reason for Consultation:: Elevated lactic acid - History of Present Illness Chief Complaint: N/V/SOB/abdominal swelling History of Present Illness: 31 F, ETOH abuse, likely cirrhosis, elevated liver enzymes, hypertension, severe GERD, and psoriasis. Was previously seen by Dr Moss and referred to [facility] for further workup and treatment. However, due to abdominal distention and leg edema, she could not make the visit. Reports midsternal burning that is worse than her baseline reflux. Poor oral intake. Significant N/V. Due to ascites, now feels SOB when lying down. No fever or chills. No travel history or sick contacts. CXR: Clear - History Source History Provided By: Patient Limitations to Obtaining History: No Limitations - Alcohol/Substance Use Hx Alcohol Use: Yes - Smoking History Smoking history: Current every day smoker Have you smoked in the past 12 months: Yes Aproximately how many cigarettes per day: 5 Home Medications - Allergies Allergies/Adverse Reactions: Allergies Allergy/AdvReac Type Severity Reaction Status Date / Time No Known Allergies Allergy Verified 03/19/17 15:36 - Home Medications Home Medications: Ambulatory Orders NK [No Known Home Medication] 03/19/17 Review of Systems - Review of Systems Constitutional: reports: Lethargy, Loss of Appetite, Malaise, Weakness. denies : Chills, Fever, Night Sweats, Unintentional Wgt. Loss Eyes: reports: No Symptoms HENT: reports: Difficult Swallowing. denies: Epistaxis Neck: reports: No Symptoms Cardiovascular: reports: Edema, Shortness of Breath. denies: Chest Pain, Palpitations Respiratory: reports: Cough, Orthopnea, SOB, SOB on Exertion. denies: Hemoptysis, Wheezing Gastrointestinal: reports: Bloating, Dysphagia, Indigestion, Nausea, Vomiting. denies: Diarrhea, Rectal Bleeding, Vomiting Blood Genitourinary: reports: Other (Labial swelling) Musculoskeletal: reports: Back Pain, Joint Pain, Joint Swelling, Muscle Pain, Muscle Cramps Integumentary: reports: Blister, Bruising, Change in Color, Erythema, Lesions, Pruritis, Rash Neurological: reports: No Symptoms Endocrine: reports: No Symptoms Hematology/Lymphatic: reports: No Symptoms Psychiatric: reports: No Symptoms Physical Exam Vital Sings: Vital Signs Temperature 97.1 F L 03/20/17 06:42 Pulse Rate 90 03/20/17 12:53 Respiratory Rate 18 03/20/17 12:53 Blood Pressure 100/65 03/20/17 12:53 O2 Sat by Pulse Oximetry (%) 100 03/20/17 12:53 Constitutional: Yes: Anxious, Cachectic Eyes: Yes: Conjunctiva Clear HENT: Yes: Atraumatic, Normocephalic Neck: Yes: Supple, Trachea Midline Cardiovascular: Yes: Tachycardia Respiratory: Yes: Cough, Diminished, Dullness. No: Accessory Muscle Use, Rales , Rhonchi, Stridor, Tachypnea, Wheezes ...Clubbing: No Gastrointestinal: Yes: Normal Bowel Sounds, Soft, Ascites, Distention, Vomiting. No: Palpable Mass, Pulsatile Mass Musculoskeletal: Yes: Back Pain Extremities: Yes: Erythema Edema: Yes Peripheral Pulses WNL: Yes Integumentary: Yes: Rash, Venous Stasis Changes Neurological: Yes: Alert, Oriented ...Motor Strength: WNL Psychiatric: Yes: WNL, Alert, Oriented Labs: CBC, BMP 03/20/17 06:10 03/20/17 06:10 Imaging - Results Chest X-ray: Report Reviewed, Image Reviewed Problem List - Problems (1) Abdominal pain Code(s): R10.9 - UNSPECIFIED ABDOMINAL PAIN (2) Cachexia Code(s): R64 - CACHEXIA (3) Hypoalbuminemia Code(s): E88.09 - OTH DISORDERS OF PLASMA-PROTEIN METABOLISM, NEC (4) Lactic acid acidosis Code(s): E87.2 - ACIDOSIS (5) Peripheral edema Code(s): R60.9 - EDEMA, UNSPECIFIED (6) Alcoholic liver damage Code(s): K70.9 - ALCOHOLIC LIVER DISEASE, UNSPECIFIED (7) Foot pain Code(s): M79.673 - PAIN IN UNSPECIFIED FOOT Assessment/Plan Suspect persistently elevated Lactic acid due to her liver's inability to clear Possible Cellulitis -> ABX per ID IVF O2 as needed GI evaluation -> Known to Dr Isa ALVAREZ At this time, she is afebrile, with stable hemodynamics, saturating 100% on RA. She can be monitored on the medical floor for now. Please call for any change in condition. Will follow Thank you. Dr Babb
[2017-03-20] MEDS: D5-NS + 40 MEQ KCL - 1,000 ML IV SCH (15:20)
--- NOTE | 2017-03-20 16:16 | EKG ---
Test Reason : Blood Pressure : / mmHG Vent. Rate : 092 BPM Atrial Rate : 100 BPM P-R Int : 112 ms QRS Dur : 070 ms QT Int : 398 ms P-R-T Axes : 077 084 073 degrees QTc Int : 492 ms NORMAL SINUS RHYTHM WITH SINUS ARRHYTHMIA NONSPECIFIC ST AND T WAVE ABNORMALITY PROLONGED QT ABNORMAL ECG WHEN COMPARED WITH ECG OF 13-MAR-2017 21:49, ST NOW DEPRESSED IN INFERIOR LEADS ST NOW DEPRESSED IN ANTERIOR LEADS NONSPECIFIC T WAVE ABNORMALITY NOW EVIDENT IN INFERIOR LEADS Confirmed by LAZARO RAMIREZ MD ([id number]) on 03/20/2017 4:16:09 PM Referred By: Confirmed By:ALZARO RAMIREZ MD
[2017-03-20] MEDS ORDERED: PIPERACILLIN/TAZOB 3.375 GM 50 ML IVPB ONE (16:25)
[2017-03-20] MEDS: PIPERACILLIN/TAZOB 3.375 GM 50 ML IVPB SCH ×2 (16:25→22:45)
--- NOTE | 2017-03-20 17:06 | HP ---
Admitting History and Physical - Admission History of Present Illness: Pt is a 31 y/o female with PMH significant for chronic ETOH abuse, elevated LFT' s, HTN, GERD, psoriasis cachexia. Pt presented to the ER bc of midsternal chest pain/burning for approximately 1 week. Pt staates that this is similar to her GERD but she has been having more nausea. Pt was recently in the ER for similar complaints and left AMA. Pt also has bilateral lower extremity edema for 1 month. This now has spread up her rt thigh to her labia.She reports her swelling has worsened since her last presentation on 03/13/17, and extended up her right thigh into her right labia. History Source: Patient, Medical Record - Past Medical History Gastrointestinal: Yes: Other (GERD) Hepatobiliary: Yes: Cirrhosis, Other (Elevated LFT's) Psych: Yes: Addictions - Smoking History Smoking history: Current every day smoker Have you smoked in the past 12 months: Yes Aproximately how many cigarettes per day: 5 - Alcohol/Substance Use Hx Alcohol Use: Yes Home Medications - Allergies Allergies/Adverse Reactions: Allergies Allergy/AdvReac Type Severity Reaction Status Date / Time No Known Allergies Allergy Verified 03/19/17 15:36 - Home Medications Home Medications: Ambulatory Orders Cephalexin 250 mg PO Q6H 03/21/17 Family Disease History - Family Disease History Family History: Unremarkable Review of Systems - Review of Systems Constitutional: reports: Loss of Appetite, Unintentional Wgt. Loss, Weakness Eyes: reports: No Symptoms HENT: reports: No Symptoms Neck: reports: No Symptoms Cardiovascular: reports: Chest Pain Respiratory: reports: No Symptoms Gastrointestinal: reports: Bloating, Nausea Physical Examination Vital Signs: Vital Signs Temperature 97.1 F L 03/20/17 06:42 Pulse Rate 90 03/20/17 12:53 Respiratory Rate 18 03/20/17 12:53 Blood Pressure 100/65 03/20/17 12:53 O2 Sat by Pulse Oximetry (%) 100 03/20/17 12:53 Constitutional: Yes: Cachectic Eyes: Yes: WNL HENT: Yes: WNL Neck: Yes: WNL Cardiovascular: Yes: WNL Respiratory: Yes: WNL, Regular, CTA Bilaterally Gastrointestinal: Yes: WNL, Normal Bowel Sounds, Distention Edema: Yes Edema: LLE: 1+, RLE: 1+ Neurological: Yes: WNL, Alert, Oriented ...Motor Strength: WNL Labs: CBC, BMP 03/20/17 06:10 03/20/17 06:10 Problem List - Problems (1) Abdominal pain Assessment/Plan: GI consult Cont IVF Advance diet as tolerated Long d/w pt about need to stop drinking wc she is actively still doing Will get psych consult Code(s): R10.9 - UNSPECIFIED ABDOMINAL PAIN (2) Jaundice Code(s): R17 - UNSPECIFIED JAUNDICE (3) Peripheral edema Code(s): R60.9 - EDEMA, UNSPECIFIED (4) Alcoholic liver damage Code(s): K70.9 - ALCOHOLIC LIVER DISEASE, UNSPECIFIED (5) Cachexia Code(s): R64 - CACHEXIA
--- NOTE | 2017-03-20 18:39 | CON.GI ---
Consult Consult Specialty:: GI Referred by:: Dr Modi/Ralph Cordon Reason for Consultation:: Abdominal pain, liver failure - History of Present Illness Chief Complaint: Patient with leg swelling/pain and unable to walk. History of Present Illness: 31 F seen as outpat by Dr Moss, s/p liver biopsy last month with result unk at this time, admitted with LE edema, cachexia, weakness. She has new ascites as well and lactate on admission was >8. She is actively drinking and BAL was 65. Patient is difficult to get history from as she confabulates and has rambling speech. - History Source History Provided By: Patient, Medical Record Limitations to Obtaining History: No Limitations - Past Medical History [employer]: Yes: Other (mild encephalopathy) Hepatobiliary: Yes: Cirrhosis Reproductive: Yes: Other (no menses for "years") - Alcohol/Substance Use Hx Alcohol Use: Yes - Smoking History Smoking history: Current every day smoker Have you smoked in the past 12 months: Yes Aproximately how many cigarettes per day: 5 Home Medications - Allergies Allergies/Adverse Reactions: Allergies Allergy/AdvReac Type Severity Reaction Status Date / Time No Known Allergies Allergy Verified 03/19/17 15:36 - Home Medications Home Medications: Ambulatory Orders Cephalexin 250 mg PO Q6H 03/21/17 Physical Exam-GI Vital Signs: Vital Signs Temperature 97.1 F L 03/20/17 06:42 Pulse Rate 90 03/20/17 12:53 Respiratory Rate 18 03/20/17 12:53 Blood Pressure 100/65 03/20/17 12:53 O2 Sat by Pulse Oximetry (%) 100 03/20/17 12:53 Constitutional: Yes: Cachectic (with bi-temporal wasting.) Eyes: Yes: Other (R exophthalmos with strabismus) HENT: Yes: Atraumatic Neck: Yes: Supple Cardiovascular: Yes: Regular Rate and Rhythm, Tachycardia Respiratory: Yes: CTA Bilaterally Gastrointestinal Inspection: Yes: Ascites ...Auscultate: Yes: Normoactive Bowel Sounds ...Palpate: Yes: Soft. No: Tenderness Breast(s): Yes: Other (no breast development) Musculoskeletal: Yes: Other (cachectic) Edema: LLE: 3+, RLE: 3+ Integumentary: Yes: Other (psoriasis wbilateral hand involvement) Labs: CBC, BMP 03/20/17 06:10 03/20/17 06:10 Hepatic Panel Total Bilirubin 5.7 mg/dL (0.2-1.0) H 03/20/17 06:10 Direct Bilirubin 5.0 mg/dL (0.0-0.2) H 03/19/17 16:42 AST 167 U/L (15-37) H D 03/20/17 06:10 ALT 21 U/L (12-78) 03/20/17 06:10 Alkaline Phosphatase 744 U/L (45-117) H 03/20/17 06:10 Albumin 1.1 g/dl (3.4-5.0) L 03/20/17 06:10 Imaging - Results Ultrasound: Report Reviewed (thick walled gb with stones. ascites. Hyperechoic liver) Assessment/Plan 31 F with ESLD admitted with a lactate of 9, ESLD with t bili >5 and alk phos ~ 900. She has no severe pain at this time. Likely chronic pancreatitis At this time her condition is tenuous. Will get CT with po contrast Check B12, hep C, HIV she belongs in the ICU until we get more information. Lactate down to 2.5 but 31yo with ESLD and pancreatitis.
[2017-03-20] MEDS ORDERED: VANCOMYCIN 1 GRAM (PRE-DOCKED) 250 ML IVPB ONE (21:34)
[2017-03-20] MEDS: VANCOMYCIN 1 GRAM (PRE-DOCKED) 1,000 MG/250 ML BAG IVPB SCH (21:35)
[2017-03-21 04:18] LABS: VENOUS PH 7.37 (7.32-7.42)
[2017-03-21 04:19] LABS: VENOUS BLOOD GAS HCO3 23.8 meq/L (19-25)
[2017-03-21] MEDS: PIPERACILLIN/TAZOB 3.375 GM 50 ML IVPB SCH ×3 (04:29→19:04)
[2017-03-21] MEDS ORDERED: PIPERACILLIN/TAZOB 3.375 GM 50 ML IVPB ONE ×2 (04:31→11:43)
[2017-03-21 08:35] LABS: HIV 1 & 2 AB NEGATIVE; HIV 1 AGp24 NEGATIVE
[2017-03-21] MEDS ORDERED: VANCOMYCIN 1,250 MG in DEXTROSE 5%-WATER - 250 ML IVPB SCH (10:00)
[2017-03-21 11:48] LABS: BASOPHIL 0.3 % (0-2.0); EOSINOPHIL 0.4 % (0-4.5); MCH 35.6 pg (25.7-33.7); MCHC 34.6 g/dl (32.0-36.0); MEAN CELL VOLUME 102.7 fl (80-96); MEAN PLT VOLUME 8.1 fl (7.5-11.1); NEUTROPHILS 90.6 % (42.8-82.8); PLATELET COUNT 111 K/MM3 (134-434); RDW 13.9 % (11.6-15.6); WHITE BLOOD COUNT 10.8 K/mm3 (4.0-10.0)
[2017-03-21 12:11] LABS: ALBUMIN 1.1 g/dl (3.4-5.0); ANION GAP 12 (8-16); CALCIUM 7.1 mg/dL (8.5-10.1); CO2 26 mmol/L (21-32); COCKROFT - GAULT 109.4375; CREATININE 0.4 mg/dL (0.55-1.02); GLUCOSE,RANDOM 75 mg/dL (74-106); SGOT/AST 133 U/L (15-37); SGPT/ALT 21 U/L (12-78)
[2017-03-21 12:13] LABS: ALK PHOS 635 U/L (45-117); BILIRUBIN,TOTAL 5.6 mg/dL (0.2-1.0); TOT PROT 6.1 g/dl (6.4-8.2)
[2017-03-21 13:00] LABS: URINE MARIJUANA THC NEGATIVE ng/ml (CUTOFF=50)
[2017-03-21] MEDS: D5-NS + 40 MEQ KCL - 1,000 ML IV SCH (13:46)
[2017-03-21] MEDS ORDERED: POTASSIUM CHLORIDE ORAL LIQUID 20 MEQ/15 ML PO ONE (16:00)
[2017-03-21] MEDS ORDERED: POTASSIUM CHLORIDE ORAL LIQUID 20 MEQ/15 ML ONE (17:55)
--- NOTE | 2017-03-21 18:39 | PN ---
Progress Note, Physician History of Present Illness: Pt found w/ "heroin" packages and police were call and felt all drug paraphanilia were confiscated - Current Medication List Current Medications: Active Medications Piperacillin Sod/Tazobactam Sod (Zosyn 3.375gm Ivpb (Pre-Docked)) 50 mls @ 100 mls/hr IVPB Q8H-IV RAUL PRN Reason: Protocol Last Admin: 03/21/17 11:30 Dose: 100 mls/hr Dextrose/Sodium Chloride (Dextrose 5%-Normal Saline+40 Meq Kcl -) 1,000 mls @ 83 mls/hr IV ASDIR RAUL Last Admin: 03/21/17 13:46 Dose: 83 mls/hr Vancomycin HCl (Vancomycin (Pre-Docked)) 1,000 mg IVPB DAILY@2100 RAUL Last Admin: 03/20/17 21:35 Dose: 1,000 mg - Objective Vital Signs: Vital Signs Temperature 98.3 F 03/21/17 17:45 Pulse Rate 81 03/21/17 17:45 Respiratory Rate 18 03/21/17 17:45 Blood Pressure 90/73 03/21/17 17:45 O2 Sat by Pulse Oximetry (%) 99 03/21/17 17:45 Constitutional: Yes: Cachectic Eyes: Yes: Sclera Icterus HENT: Yes: WNL Neck: Yes: Supple Cardiovascular: Yes: WNL, Regular Rate and Rhythm Respiratory: Yes: WNL, Regular, CTA Bilaterally Gastrointestinal: Yes: Normal Bowel Sounds, Distention Labs: CBC, BMP 03/21/17 11:40 03/21/17 11:40 Problem List - Problems (1) Abdominal pain Code(s): R10.9 - UNSPECIFIED ABDOMINAL PAIN (2) Cachexia Code(s): R64 - CACHEXIA (3) Jaundice Code(s): R17 - UNSPECIFIED JAUNDICE (4) Peripheral edema Code(s): R60.9 - EDEMA, UNSPECIFIED (5) Sepsis Code(s): A41.9 - SEPSIS, UNSPECIFIED ORGANISM (6) Substance abuse Code(s): F19.10 - OTHER PSYCHOACTIVE SUBSTANCE ABUSE, UNCOMPLICATED
--- NOTE | 2017-03-21 18:44 | PN ---
Progress Note, Physician History of Present Illness: still does not feel well swallowing is concerning her legs starting to feel better but still edmatous and heavy - Current Medication List Current Medications: Active Medications Piperacillin Sod/Tazobactam Sod (Zosyn 3.375gm Ivpb (Pre-Docked)) 50 mls @ 100 mls/hr IVPB Q8H-IV RAUL PRN Reason: Protocol Last Admin: 03/21/17 11:30 Dose: 100 mls/hr Dextrose/Sodium Chloride (Dextrose 5%-Normal Saline+40 Meq Kcl -) 1,000 mls @ 83 mls/hr IV ASDIR RAUL Last Admin: 03/21/17 13:46 Dose: 83 mls/hr Vancomycin HCl (Vancomycin (Pre-Docked)) 1,000 mg IVPB DAILY@2100 RAUL Last Admin: 03/20/17 21:35 Dose: 1,000 mg - Objective Vital Signs: Vital Signs Temperature 98.3 F 03/21/17 17:45 Pulse Rate 81 03/21/17 17:45 Respiratory Rate 18 03/21/17 17:45 Blood Pressure 90/73 03/21/17 17:45 O2 Sat by Pulse Oximetry (%) 99 03/21/17 17:45 Constitutional: Yes: Calm, Mild Distress, Other (failure to thrive,cachetic) Eyes: Yes: Sclera Icterus Cardiovascular: Yes: Regular Rate and Rhythm Respiratory: Yes: Regular, Other Gastrointestinal: Yes: Normal Bowel Sounds, Soft, Other (ascites) Musculoskeletal: Yes: Other Extremities: Yes: Other Edema: LLE: 2+, RLE: 2+ Integumentary: Yes: Rash, Venous Stasis Changes, Other Neurological: Yes: Alert, Oriented Psychiatric: Yes: Alert, Oriented Labs: CBC, BMP 03/21/17 11:40 03/21/17 11:40 Assessment/Plan Problem List - Problems (1) Sepsis Code(s): A41.9 - SEPSIS, UNSPECIFIED ORGANISM (2) Abdominal pain Code(s): R10.9 - UNSPECIFIED ABDOMINAL PAIN (3) Alcoholic liver damage Code(s): K70.9 - ALCOHOLIC LIVER DISEASE, UNSPECIFIED (4) Peripheral edema Code(s): R60.9 - EDEMA, UNSPECIFIED (5) Substance abuse Assessment/Plan: Will get psych consult Code(s): F19.10 - OTHER PSYCHOACTIVE SUBSTANCE ABUSE, UNCOMPLICATED (6) Jaundice Assessment/Plan: Due to liver dz Code(s): R17 - UNSPECIFIED JAUNDICE (7) Cachexia Code(s): R64 - CACHEXIA (8) Hypoalbuminemia Code(s): E88.09 - OTH DISORDERS OF PLASMA-PROTEIN METABOLISM, NEC (9) Lactic acid acidosis Code(s): E87.2 - ACIDOSIS (10) Peripheral edema Code(s): R60.9 - EDEMA, UNSPECIFIED plan will stop vanco will continue zosyn nutrition hydration gi to see the patient rest as per caden
[2017-03-21] MEDS: VANCOMYCIN 1 GRAM (PRE-DOCKED) 1,000 MG/250 ML BAG IVPB SCH (21:05)
[2017-03-22] MEDS: PIPERACILLIN/TAZOB 3.375 GM 50 ML IVPB SCH ×3 (01:01→17:13)
[2017-03-22] MEDS: D5-NS + 40 MEQ KCL - 1,000 ML IV SCH ×2 (01:09→17:13)
[2017-03-22] MEDS: PIPERACILLIN/TAZOB 3.375 GM/50 ML PRE-DOCKED IVPB SCH (08:05)
--- NOTE | 2017-03-22 13:54 | PN ---
GI Progress Note Subjective: Patient in bed. Pain in legs secondary to edema and ? cellulitis - Objective Vital Signs: Vital Signs Temperature 97.9 F 03/22/17 10:00 Pulse Rate 68 03/22/17 10:00 Respiratory Rate 20 03/22/17 10:00 Blood Pressure 96/50 03/22/17 10:00 O2 Sat by Pulse Oximetry (%) 98 03/22/17 10:00 Constitutional: Cachectic Eyes: Yes: Sclera Icterus, Other (R exophthalmos) Cardiovascular: Yes: Regular Rate and Rhythm Respiratory: Yes: CTA Bilaterally Gastrointestinal Inspection: Yes: Ascites, Distention, Other ...Auscultate: Yes: Normoactive Bowel Sounds ...Palpate: Yes: Firm/Rigid, Tenderness (mild diffuse tenderness) Labs: CBC, BMP 03/21/17 11:40 03/21/17 11:40 - ....Imaging Cat Scan: Report Reviewed (cirrhosis, marked ascites, thickened gb wall, gallstones) Assessment/Plan 31 F with ESLD admitted with a lactate of 9, ESLD with t bili >5 and alk phos ~ 900. She has no severe pain at this time. Likely chronic pancreatitis At this time her condition is tenuous. CT with po contrast with marked ascites and gs with thickened gb wall Unlikely cholecystitis-related to ascites. B12 elevated/normal, hep C, HIV negative She was found to have heroin in her possession in the ER and police were notified. She initially denied taking it but after further questioning admitted recent use. (+) Utox. Can't start diuretics because pressures are low Hold IVF Agree with AbRx as she may have SBP Needs large volume paracentesis. Will order
[2017-03-22] MEDS ORDERED: POTASSIUM CHLORIDE TABS 20 MEQ TABLET.ER (FP) PO ONE (19:21)
--- NOTE | 2017-03-22 19:22 | PN ---
Progress Note, Physician - Current Medication List Current Medications: Active Medications Piperacillin Sod/Tazobactam Sod (Zosyn 3.375gm Ivpb (Pre-Docked)) 50 mls @ 100 mls/hr IVPB Q8H-IV RAUL PRN Reason: Protocol Last Admin: 03/22/17 17:13 Dose: 100 mls/hr Dextrose/Sodium Chloride (Dextrose 5%-Normal Saline+40 Meq Kcl -) 1,000 mls @ 83 mls/hr IV ASDIR RAUL Last Admin: 03/22/17 17:13 Dose: 83 mls/hr Vancomycin HCl (Vancomycin (Pre-Docked)) 1,000 mg IVPB DAILY@2100 RAUL Last Admin: 03/21/17 21:05 Dose: 1,000 mg - Objective Vital Signs: Vital Signs Temperature 97.6 F 03/22/17 18:03 Pulse Rate 95 H 03/22/17 18:03 Respiratory Rate 18 03/22/17 18:03 Blood Pressure 120/64 03/22/17 18:03 O2 Sat by Pulse Oximetry (%) 98 03/22/17 10:00 Constitutional: Yes: Cachectic Eyes: Yes: Sclera Icterus HENT: Yes: Other (Temporal wasting) Neck: Yes: Supple Cardiovascular: Yes: WNL, Regular Rate and Rhythm Respiratory: Yes: WNL, Regular, CTA Bilaterally Gastrointestinal: Yes: Normal Bowel Sounds, Distention Edema: LLE: 1+, RLE: 1+ Labs: CBC, BMP 03/21/17 11:40 03/21/17 11:40 Problem List - Problems (1) Sepsis Assessment/Plan: WBC decreasing but lactic acid still elevated Repeat labs in am Cont IV zosyn/vanco Code(s): A41.9 - SEPSIS, UNSPECIFIED ORGANISM (2) Abdominal pain Assessment/Plan: As per GI Cont IVF Advance diet as tolerated Long d/w pt about need to stop drinking wc she is actively still doing Will get psych consult Cont to trend labs Code(s): R10.9 - UNSPECIFIED ABDOMINAL PAIN (3) Alcoholic liver damage Code(s): K70.9 - ALCOHOLIC LIVER DISEASE, UNSPECIFIED (4) Peripheral edema Code(s): R60.9 - EDEMA, UNSPECIFIED (5) Substance abuse Assessment/Plan: Will get psych consult Code(s): F19.10 - OTHER PSYCHOACTIVE SUBSTANCE ABUSE, UNCOMPLICATED (6) Jaundice Assessment/Plan: Due to liver dz Code(s): R17 - UNSPECIFIED JAUNDICE (7) Cachexia Code(s): R64 - CACHEXIA
[2017-03-22 20:26] LABS: ALK PHOS 559 U/L (45-117); ANION GAP 10 (8-16); CO2 22 mmol/L (21-32); COCKROFT - GAULT 75.2505; CREATININE 0.7 mg/dL (0.55-1.02); GLUCOSE,RANDOM 109 mg/dL (74-106); SGPT/ALT 18 U/L (12-78); TOT PROT 5.7 g/dl (6.4-8.2)
[2017-03-22 20:59] LABS: ALBUMIN 0.9 g/dl (3.4-5.0); SGOT/AST 115 U/L (15-37)
[2017-03-22 21:00] LABS: CALCIUM 6.9 mg/dL (8.5-10.1)
[2017-03-22] MEDS: VANCOMYCIN 1 GRAM (PRE-DOCKED) 1,000 MG/250 ML BAG IVPB SCH (21:31)
[2017-03-22] MEDS ORDERED: CALCIUM GLUCONATE 10% - 1,000 MG/10 ML VIAL IVPB ONE (23:45)
[2017-03-23] MEDS: PIPERACILLIN/TAZOB 3.375 GM 50 ML IVPB SCH ×3 (01:12→17:28)
[2017-03-23 08:00] LABS: BASOPHIL 0.4 % (0-2.0); EOSINOPHIL 1.3 % (0-4.5); MCH 35.2 pg (25.7-33.7); MEAN CELL VOLUME 103.5 fl (80-96); MEAN PLT VOLUME 8.8 fl (7.5-11.1); PLATELET COUNT 90 K/MM3 (134-434); RDW 14.2 % (11.6-15.6); WHITE BLOOD COUNT 6.8 K/mm3 (4.0-10.0)
[2017-03-23 08:42] LABS: ALK PHOS 546 U/L (45-117); ANION GAP 12 (8-16); BILIRUBIN,TOTAL 3.8 mg/dL (0.2-1.0); CALCIUM 7.1 mg/dL (8.5-10.1); CO2 21 mmol/L (21-32); CREATININE 0.6 mg/dL (0.55-1.02); GLUCOSE,RANDOM 83 mg/dL (74-106); SGOT/AST 96 U/L (15-37); SGPT/ALT 17 U/L (12-78); TOT PROT 5.4 g/dl (6.4-8.2)
[2017-03-23 08:44] LABS: ALBUMIN 0.9 g/dl (3.4-5.0)
[2017-03-23] MEDS: D5-NS + 40 MEQ KCL - 1,000 ML IV SCH ×3 (09:02→22:48)
[2017-03-23 10:15] LABS: INR 1.63 (0.82-1.09); PROTHROMBIN TIME (PATIENT) 18.1 SEC (9.98-11.88)
[2017-03-23] MEDS ORDERED: POTASSIUM CHLORIDE TABS 20 MEQ TABLET.ER (FP) PO ONE ×3 (11:00→13:15)
--- NOTE | 2017-03-23 17:14 | PN ---
Progress Note, Physician History of Present Illness: starting to feel better still with leg swelling that is one thing bothering her - Current Medication List Current Medications: Active Medications Piperacillin Sod/Tazobactam Sod (Zosyn 3.375gm Ivpb (Pre-Docked)) 50 mls @ 100 mls/hr IVPB Q8H-IV RALU PRN Reason: Protocol Last Admin: 03/23/17 09:01 Dose: 100 mls/hr Dextrose/Sodium Chloride (Dextrose 5%-Normal Saline+40 Meq Kcl -) 1,000 mls @ 83 mls/hr IV ASDIR [facility] Last Admin: 03/23/17 14:01 Dose: Not Given Vancomycin HCl (Vancomycin (Pre-Docked)) 1,000 mg IVPB DAILY@2100 RAUL Last Admin: 03/22/17 21:31 Dose: 1,000 mg - Objective Vital Signs: Vital Signs Temperature 97.7 F 03/23/17 14:38 Pulse Rate 94 H 03/23/17 14:38 Respiratory Rate 20 03/23/17 14:38 Blood Pressure 121/69 03/23/17 14:38 O2 Sat by Pulse Oximetry (%) 100 03/22/17 21:00 Constitutional: Yes: Calm, Mild Distress, Other (failure to thrive) Cardiovascular: Yes: Regular Rate and Rhythm Respiratory: Yes: Regular, CTA Bilaterally Gastrointestinal: Yes: Normal Bowel Sounds, Soft Extremities: Yes: Other (blister sites open now and healing) Edema: LLE: 3+, RLE: 3+ Integumentary: Yes: Other Neurological: Yes: Alert, Oriented Psychiatric: Yes: Alert, Oriented Labs: CBC, BMP 03/23/17 05:40 03/23/17 05:40 INR, PTT INR 1.63 (0.82-1.09) H 03/23/17 09:30 Assessment/Plan Problem List - Problems (1) Sepsis Code(s): A41.9 - SEPSIS, UNSPECIFIED ORGANISM (2) Abdominal pain Code(s): R10.9 - UNSPECIFIED ABDOMINAL PAIN (3) Alcoholic liver damage Code(s): K70.9 - ALCOHOLIC LIVER DISEASE, UNSPECIFIED (4) Peripheral edema Code(s): R60.9 - EDEMA, UNSPECIFIED (5) Substance abuse Assessment/Plan: Will get psych consult Code(s): F19.10 - OTHER PSYCHOACTIVE SUBSTANCE ABUSE, UNCOMPLICATED (6) Jaundice Assessment/Plan: Due to liver dz Code(s): R17 - UNSPECIFIED JAUNDICE (7) Cachexia Code(s): R64 - CACHEXIA (8) Hypoalbuminemia Code(s): E88.09 - OTH DISORDERS OF PLASMA-PROTEIN METABOLISM, NEC (9) Lactic acid acidosis Code(s): E87.2 - ACIDOSIS (10) Peripheral edema Code(s): R60.9 - EDEMA, UNSPECIFIED plan continue zosyn once patients erythema decreases will deescalate rest as per primary await for all reports
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
--- NOTE | 2017-03-23 21:01 | PN ---
Progress Note, Physician History of Present Illness: Pt still w/ diarrhea and not eating - Current Medication List Current Medications: Active Medications Piperacillin Sod/Tazobactam Sod (Zosyn 3.375gm Ivpb (Pre-Docked)) 50 mls @ 100 mls/hr IVPB Q8H-IV RAUL PRN Reason: Protocol Last Admin: 03/23/17 17:28 Dose: 100 mls/hr Dextrose/Sodium Chloride (Dextrose 5%-Normal Saline+40 Meq Kcl -) 1,000 mls @ 83 mls/hr IV ASDIR RAUL Last Admin: 03/23/17 14:01 Dose: Not Given - Objective Vital Signs: Vital Signs Temperature 97.6 F 03/23/17 17:55 Pulse Rate 91 H 03/23/17 17:55 Respiratory Rate 18 03/23/17 17:55 Blood Pressure 104/62 03/23/17 17:55 O2 Sat by Pulse Oximetry (%) 100 03/22/17 21:00 Constitutional: Yes: Cachectic Eyes: Yes: WNL HENT: Yes: Other ((+) temproal wasting) Neck: Yes: Supple Cardiovascular: Yes: WNL, Regular Rate and Rhythm Respiratory: Yes: WNL, Regular, CTA Bilaterally Gastrointestinal: Yes: Normal Bowel Sounds, Soft, Distention Labs: CBC, BMP 03/23/17 05:40 03/23/17 05:40 INR, PTT INR 1.63 (0.82-1.09) H 03/23/17 09:30 Problem List - Problems (1) Sepsis Assessment/Plan: Cont iv zosyn/vanco Repeat labs in am Relace K+ Code(s): A41.9 - SEPSIS, UNSPECIFIED ORGANISM (2) Abdominal pain Assessment/Plan: ESLD Pt still actively drinking LFT's not improving Cont liquid diet ?paracentesis as per GI GI consult appreciated Code(s): R10.9 - UNSPECIFIED ABDOMINAL PAIN (3) Cachexia Code(s): R64 - CACHEXIA (4) Jaundice Assessment/Plan: Due to liver dz Code(s): R17 - UNSPECIFIED JAUNDICE (5) Peripheral edema Code(s): R60.9 - EDEMA, UNSPECIFIED (6) Substance abuse Assessment/Plan: Psych consult noted Code(s): F19.10 - OTHER PSYCHOACTIVE SUBSTANCE ABUSE, UNCOMPLICATED
--- NOTE | 2017-03-23 21:05 | PN ---
GI Progress Note Subjective: Patient resting comfortably. S/P paracentesis earlier with significant relief She is taking po. - Objective Vital Signs: Vital Signs Temperature 97.6 F 03/23/17 17:55 Pulse Rate 91 H 03/23/17 17:55 Respiratory Rate 18 03/23/17 17:55 Blood Pressure 104/62 03/23/17 17:55 O2 Sat by Pulse Oximetry (%) 100 03/22/17 21:00 Constitutional: Cachectic HENT: Yes: Normocephalic, Other (bi-temporal wasting) Cardiovascular: Yes: Regular Rate and Rhythm, Tachycardia Respiratory: Yes: CTA Bilaterally Gastrointestinal Inspection: Yes: Distention ...Auscultate: Yes: Hyperactive Bowel Sounds ...Palpate: Yes: Firm/Rigid. No: Tenderness ...Percussion: Yes: Tympanitic Psychiatric: Yes: Other (see psych consult) Labs: CBC, BMP 03/23/17 05:40 03/23/17 05:40 INR, PTT INR 1.63 (0.82-1.09) H 03/23/17 09:30 Assessment/Plan Patient recovering from acute on chronic malnutrition and dehydration. She is profoundly malnourished and needs a nutrition consult prior to discharge Her liver status has improved with drop in t bili from 5.6 to 3.8. ESLD is chronic and will likely not improve much more. Once she has fully stabilized, she can be discharged. Psych eval read and appreciated. Overall prognosis poor.
[2017-03-24] MEDS: PIPERACILLIN/TAZOB 3.375 GM 50 ML IVPB SCH ×3 (01:31→17:37)
[2017-03-24 07:10] LABS: BASOPHIL 0.4 % (0-2.0); EOSINOPHIL 1.5 % (0-4.5); MCH 34.8 pg (25.7-33.7); MCHC 33.4 g/dl (32.0-36.0); MEAN CELL VOLUME 104.2 fl (80-96); MEAN PLT VOLUME 8.6 fl (7.5-11.1); NEUTROPHILS 81.5 % (42.8-82.8); PLATELET COUNT 90 K/MM3 (134-434); RDW 14.1 % (11.6-15.6); WHITE BLOOD COUNT 7.4 K/mm3 (4.0-10.0)
[2017-03-24 08:13] LABS: ANION GAP 13 (8-16); BILIRUBIN,TOTAL 3.6 mg/dL (0.2-1.0); CO2 20 mmol/L (21-32); CREATININE 0.6 mg/dL (0.55-1.02); GLUCOSE,RANDOM 72 mg/dL (74-106); SGOT/AST 88 U/L (15-37); SGPT/ALT 16 U/L (12-78); TOT PROT 5.6 g/dl (6.4-8.2)
[2017-03-24 08:15] LABS: ALK PHOS 540 U/L (45-117)
[2017-03-24 08:43] LABS: ALBUMIN 0.9 g/dl (3.4-5.0)
--- NOTE | 2017-03-24 10:10 | PN ---
Progress Note, Physician History of Present Illness: starting to feel better still with leg swelling no new issues apart from that - Current Medication List Current Medications: Active Medications Piperacillin Sod/Tazobactam Sod (Zosyn 3.375gm Ivpb (Pre-Docked)) 50 mls @ 100 mls/hr IVPB Q8H-IV RAUL PRN Reason: Protocol Last Admin: 03/24/17 09:34 Dose: 100 mls/hr Dextrose/Sodium Chloride (Dextrose 5%-Normal Saline+40 Meq Kcl -) 1,000 mls @ 83 mls/hr IV ASDIR RAUL Last Admin: 03/23/17 22:48 Dose: 83 mls/hr - Objective Vital Signs: Vital Signs Temperature 98.1 F 03/24/17 01:44 Pulse Rate 94 H 03/24/17 01:44 Respiratory Rate 16 03/24/17 01:44 Blood Pressure 103/69 03/24/17 01:44 O2 Sat by Pulse Oximetry (%) 100 03/22/17 21:00 Constitutional: Yes: Calm, Mild Distress Cardiovascular: Yes: Regular Rate and Rhythm Respiratory: Yes: Regular, CTA Bilaterally Gastrointestinal: Yes: Normal Bowel Sounds, Soft Musculoskeletal: Yes: Other Extremities: Yes: Other Edema: LLE: 3+, RLE: 3+ Integumentary: Yes: Other Wound/Incision: Yes: Clean/Dry, Open to air Neurological: Yes: Alert, Oriented Psychiatric: Yes: Alert, Oriented Labs: CBC, BMP 03/24/17 05:35 03/24/17 05:35 INR, PTT INR 1.63 (0.82-1.09) H 03/23/17 09:30 - ....Imaging Ultrasound: Report Reviewed, Image Reviewed Assessment/Plan Problem List - Problems (1) Sepsis Code(s): A41.9 - SEPSIS, UNSPECIFIED ORGANISM (2) Abdominal pain Code(s): R10.9 - UNSPECIFIED ABDOMINAL PAIN (3) Alcoholic liver damage Code(s): K70.9 - ALCOHOLIC LIVER DISEASE, UNSPECIFIED (4) Peripheral edema Code(s): R60.9 - EDEMA, UNSPECIFIED (5) Substance abuse Assessment/Plan: Will get psych consult Code(s): F19.10 - OTHER PSYCHOACTIVE SUBSTANCE ABUSE, UNCOMPLICATED (6) Jaundice Assessment/Plan: Due to liver dz Code(s): R17 - UNSPECIFIED JAUNDICE (7) Cachexia Code(s): R64 - CACHEXIA (8) Hypoalbuminemia Code(s): E88.09 - OTH DISORDERS OF PLASMA-PROTEIN METABOLISM, NEC (9) Lactic acid acidosis Code(s): E87.2 - ACIDOSIS (10) Peripheral edema Code(s): R60.9 - EDEMA, UNSPECIFIED plan continue zosyn elevation of the leg rest as per primary team
[2017-03-24] MEDS: D5-NS + 40 MEQ KCL - 1,000 ML IV SCH (14:00)
[2017-03-24 15:31] LABS: PERITONEAL FLUID LYMPHOCYTE 7 %; PERITONEAL FLUID MACROPHAGE 57 %; PERITONEAL FLUID MESOTHELIAL 2 %; PERITONEAL FLUID NEUTROPHIL 34 %
[2017-03-24] MEDS ORDERED: PT OWN MED DRAWER 7, Y5N ONE (16:56)
[2017-03-24] MEDS: NEOMYCIN/POLYMYXIN/BACITRACIN (TRIPLE ANTIBIOTIC) 28 GM OINTMENT TP SCH ×2 (17:35→20:59)
--- NOTE | 2017-03-24 19:07 | PN ---
Progress Note, Physician History of Present Illness: No new changes - Current Medication List Current Medications: Active Medications Piperacillin Sod/Tazobactam Sod (Zosyn 3.375gm Ivpb (Pre-Docked)) 50 mls @ 100 mls/hr IVPB Q8H-IV RAUL PRN Reason: Protocol Last Admin: 03/24/17 17:37 Dose: 100 mls/hr Dextrose/Sodium Chloride (Dextrose 5%-Normal Saline+40 Meq Kcl -) 1,000 mls @ 83 mls/hr IV ASDIR RAUL Last Admin: 03/24/17 14:00 Dose: 83 mls/hr Neomycin/Polymyxin/Bacitracin (Neosporin Topical Ointment -) 1 applic TP BID RAUL Last Admin: 03/24/17 17:35 Dose: 1 applic - Objective Vital Signs: Vital Signs Temperature 97.6 F 03/24/17 14:32 Pulse Rate 82 03/24/17 14:32 Respiratory Rate 20 03/24/17 14:32 Blood Pressure 112/74 03/24/17 14:32 O2 Sat by Pulse Oximetry (%) 100 03/22/17 21:00 Constitutional: Yes: Cachectic Eyes: Yes: WNL HENT: Yes: Other ((+) temporal wasting) Cardiovascular: Yes: WNL, Regular Rate and Rhythm Respiratory: Yes: WNL, Regular, CTA Bilaterally Gastrointestinal: Yes: Normal Bowel Sounds, Soft, Distention Labs: CBC, BMP 03/24/17 05:35 03/24/17 05:35 INR, PTT INR 1.63 (0.82-1.09) H 03/23/17 09:30 Problem List - Problems (1) Sepsis Assessment/Plan: Cont iv zosyn/vanco WBC normal Code(s): A41.9 - SEPSIS, UNSPECIFIED ORGANISM (2) Abdominal pain Assessment/Plan: ESLD Pt still actively drinking LFT's improving Advance diet Code(s): R10.9 - UNSPECIFIED ABDOMINAL PAIN (3) Cachexia Code(s): R64 - CACHEXIA (4) Jaundice Code(s): R17 - UNSPECIFIED JAUNDICE (5) Peripheral edema Code(s): R60.9 - EDEMA, UNSPECIFIED (6) Substance abuse Code(s): F19.10 - OTHER PSYCHOACTIVE SUBSTANCE ABUSE, UNCOMPLICATED
[2017-03-25] MEDS: D5-NS + 40 MEQ KCL - 1,000 ML IV SCH ×2 (00:28→13:40)
[2017-03-25] MEDS: PIPERACILLIN/TAZOB 3.375 GM 50 ML IVPB SCH ×3 (01:01→17:42)
[2017-03-25] MEDS: NEOMYCIN/POLYMYXIN/BACITRACIN (TRIPLE ANTIBIOTIC) 28 GM OINTMENT TP SCH ×2 (09:40→22:32)
--- NOTE | 2017-03-25 12:54 | PATH ---
Cytology Non-Gynecological Report Patient Name: MARILIN MADRID [facility]. Rec. #: [id number] /Age/Gender: 1985 (Age: 31) / F Account: [id number] Location: [facility] PEDS/ADOL Taken: 03/23/2017 Received: 03/24/2017 Reported: 03/25/2017 Physicians: Pepe Wiggins M.D. Specimen(s) Received A: ABDOMINAL FLUID IN 50% ALCOHOL B: ABDOMINAL FLUID FRESH Clinical History Ascites Final Diagnosis A,B. ABDOMINAL FLUID, PARACENTESIS: SATISFACTORY FOR EVALUATION. NO MALIGNANT CELLS IDENTIFIED. MESOTHELIAL CELLS, HISTIOCYTES AND LYMPHOCYTES. Electronically Signed Riki Lopez M.D. Gross Description A. Received is a 50 cc of yellow fluid in 50% alcohol. One cytofunnel slide and one cell block are made. B. Received is 4000 cc of yellow fluid fresh. One cytofunnel slide and one cell block are made.
[2017-03-25 15:52] LABS: HCV FIBRO RESUL SEE FILE COPY
--- NOTE | 2017-03-25 22:25 | PN ---
Progress Note, Physician History of Present Illness: No new changes - Current Medication List Current Medications: Active Medications Piperacillin Sod/Tazobactam Sod (Zosyn 3.375gm Ivpb (Pre-Docked)) 50 mls @ 100 mls/hr IVPB Q8H-IV RAUL PRN Reason: Protocol Last Admin: 03/25/17 17:42 Dose: 100 mls/hr Dextrose/Sodium Chloride (Dextrose 5%-Normal Saline+40 Meq Kcl -) 1,000 mls @ 83 mls/hr IV ASDIR RAUL Last Admin: 03/25/17 13:40 Dose: 83 mls/hr Neomycin/Polymyxin/Bacitracin (Neosporin Topical Ointment -) 1 applic TP BID RAUL Last Admin: 03/25/17 09:40 Dose: 1 applic - Objective Vital Signs: Vital Signs Temperature 97.6 F 03/25/17 18:00 Pulse Rate 91 H 03/25/17 18:00 Respiratory Rate 20 03/25/17 18:00 Blood Pressure 92/62 03/25/17 18:00 O2 Sat by Pulse Oximetry (%) 99 03/24/17 21:00 Constitutional: Yes: Cachectic Eyes: Yes: WNL HENT: Yes: Other ((+) temporal wasting) Neck: Yes: WNL Cardiovascular: Yes: WNL, Regular Rate and Rhythm Respiratory: Yes: WNL, Regular, CTA Bilaterally Gastrointestinal: Yes: Normal Bowel Sounds, Soft, Distention Labs: CBC, BMP 03/24/17 05:35 03/24/17 05:35 INR, PTT INR 1.63 (0.82-1.09) H 03/23/17 09:30 Problem List - Problems (1) Sepsis Assessment/Plan: Cont iv zosyn/vanco WBC normal Code(s): A41.9 - SEPSIS, UNSPECIFIED ORGANISM (2) Abdominal pain Assessment/Plan: ESLD Pt still actively drinking LFT's improving Code(s): R10.9 - UNSPECIFIED ABDOMINAL PAIN (3) Cachexia Code(s): R64 - CACHEXIA (4) Jaundice Assessment/Plan: Due to liver dz Code(s): R17 - UNSPECIFIED JAUNDICE (5) Peripheral edema Code(s): R60.9 - EDEMA, UNSPECIFIED (6) Substance abuse Code(s): F19.10 - OTHER PSYCHOACTIVE SUBSTANCE ABUSE, UNCOMPLICATED
[2017-03-25] MEDS ORDERED: PT OWN MED DRAWER 7, Y5N ONE (22:41)
[2017-03-26] MEDS: PIPERACILLIN/TAZOB 3.375 GM 50 ML IVPB SCH ×3 (01:34→18:00)
[2017-03-26] MEDS: D5-NS + 40 MEQ KCL - 1,000 ML IV SCH (01:37)
[2017-03-26 06:44] LABS: BASOPHIL 0.9 % (0-2.0); EOSINOPHIL 1.8 % (0-4.5); MCH 34.2 pg (25.7-33.7); MCHC 32.7 g/dl (32.0-36.0); MEAN CELL VOLUME 104.6 fl (80-96); MEAN PLT VOLUME 8.8 fl (7.5-11.1); NEUTROPHILS 72.8 % (42.8-82.8); PLATELET COUNT 96 K/MM3 (134-434); RDW 14.1 % (11.6-15.6); WHITE BLOOD COUNT 5.7 K/mm3 (4.0-10.0)
[2017-03-26 07:06] LABS: ANION GAP 10 (8-16); CO2 20 mmol/L (21-32); COCKROFT - GAULT 119.2125; CREATININE 0.5 mg/dL (0.55-1.02); GLUCOSE,RANDOM 76 mg/dL (74-106); SGOT/AST 71 U/L (15-37); SGPT/ALT 15 U/L (12-78)
[2017-03-26 07:07] LABS: ALK PHOS 429 U/L (45-117); BILIRUBIN,TOTAL 3.4 mg/dL (0.2-1.0); TOT PROT 5.2 g/dl (6.4-8.2)
[2017-03-26 07:31] LABS: ALBUMIN 0.9 g/dl (3.4-5.0)
[2017-03-26 07:32] LABS: CALCIUM 6.4 mg/dL (8.5-10.1)
[2017-03-26] MEDS ORDERED: D5-NS + 40 MEQ KCL - 1,000 ML IV SCH (09:15)
--- NOTE | 2017-03-26 14:26 | CONSULT ---
Consultation: REQUESTING PROVIDER: Dr. Modi CONSULT REQUEST: We have been asked to medically evaluate this patient for fluid overload HISTORY OF PRESENT ILLNESS: This is a 31 year old female with a current medical history of substance abuse, alcohol abuse, with End stage liver disease, who presented with nausea vomiting for a week, accompanied with progressively worsening bilateral leg swelling. Patient states that her leg swelling is chronic and usually resolved on its own. Currently the swelling has progressed up to her abdomen and back, which she states, causes her to become short of breath. Pedal swelling ahs caused skin breakdown and patient states, "foot infected." Upon admission total bilirubin, alk phos and lactate was elevated. We were called today to evaluate low BUN and creatinine, 1.5/ 0.5 respectively. Patient denies currently alcohol and substance abuse, although as per chart she was found to have heroin in the ER, and admitted to other providers of current alcohol use. Patient denies fever, chills, dysuria, hematuria. Patient has been nauseas, and has not followed regular healthy diet. Past Medical History: End stage liver disease, substance abuse, psoriasis, GERD, malnutrition Past Surgical History: S/p liver biopsy Social History: + alcohol and heroin use, denies tobacco use NKDA REVIEW OF SYSTEMS: CONSTITUTIONAL: Positive: generalized weakness, malaise, loss of appetite, Absent: fever, chills, diaphoresis, weight change HEENT: Absent: rhinorrhea, nasal congestion, throat pain, throat swelling, difficulty swallowing, mouth swelling, ear pain, eye pain, visual changes CARDIOVASCULAR: Absent: chest pain, syncope, palpitations, irregular heart rate, lightheadedness , peripheral edema RESPIRATORY: Positive: shortness of breath, dyspnea with exertion Absent: cough,, orthopnea, wheezing, stridor, hemoptysis GASTROINTESTINAL: Positive: abdominal pain, abdominal distension, nausea, vomiting Absent: , diarrhea, constipation, melena, hematochezia GENITOURINARY: Absent: dysuria, frequency, urgency, hesitancy, hematuria, flank pain, genital pain MUSCULOSKELETAL: Positive: back pain Absent: myalgia, arthralgia, joint swelling,, neck pain SKIN: Positive: skin scaling lesions Absent: rash, itching, pallor HEMATOLOGIC/IMMUNOLOGIC: Absent: easy bleeding, easy bruising, lymphadenopathy, frequent infections ENDOCRINE: Absent: unexplained weight gain, unexplained weight loss, heat intolerance, cold intolerance NEUROLOGIC: Absent: headache, focal weakness or paresthesias, dizziness, unsteady gait, seizure, mental status changes, bladder or bowel incontinence PSYCHIATRIC: Absent: anxiety, depression, suicidal or homicidal ideation, hallucinations. PHYSICAL EXAMINATION Vital Signs Period Temp Pulse Resp BP Sys/Campbell Pulse Ox Last 24 Hr 97.6 F-98.6 F 87-99 18-20 92-130/48-86 100-100 GENERAL: Awake, alert, and fully oriented, anxious, looks scared, short of breath with slight movement HEAD: Normal with no signs of trauma. EYES: sclera icturis LUNGS: Breath sounds equal, clear to auscultation bilaterally. No wheezes, and no crackles. No accessory muscle use. HEART: Regular rate and rhythm, normal S1 and S2 without murmur, rub or gallop. ABDOMEN: Soft, tender, distended, normoactive bowel sounds, no guarding, no rebound, no masses. ascending edema b/l lower quadrants MUSCULOSKELETAL: Normal range of motion at all joints. No bony deformities or tenderness. No CVA tenderness. UPPER EXTREMITIES: 2+ pulses, warm, well-perfused. No cyanosis. No clubbing. Cap refill <2 seconds. No peripheral edema. LOWER EXTREMITIES: 2+ pulses, warm, well-perfused. No calf tenderness. bilateral LE edema form bilateral feet extending up thighs, and back; patient with right foot wrapped due to skin break down/ulcer? SKIN: Warm, dry, normal turgor, severe psoriatic plaques bilateral leg as, knees , extending up abdomen ; no open lesion CBC, BMP 03/26/17 05:35 03/26/17 06:00 Active Medications Generic Name Dose Route Start Last Admin Trade Name Freq PRN Reason Stop Dose Admin Piperacillin Sod/Tazobactam Sod 50 mls @ 100 mls/hr 03/20/17 14:00 03/26/17 11: 18 Zosyn 3.375gm Ivpb (Pre-Docked) IVPB 100 mls/hr Q8H-IV RAUL Administration Protocol Dextrose/Sodium Chloride 1,000 mls @ 50 mls/hr 03/26/17 09:15 03/26/17 11:19 Dextrose 5%-Normal Saline+40 Meq Kcl - IV 50 mls/hr ASDIR RAUL Administration Neomycin/Polymyxin/Bacitracin 1 applic 03/24/17 13:00 03/25/17 22:32 Neosporin Topical Ointment - TP 1 applic BID RAUL Administration ASSESSMENT/PLAN: 31 year old female with ESLD from alcohol abuse, presents with worsening bilateral edema. 1. ascities 2. Liver cirrhosis 3. severe malnutrition 4. Substance abuse #ascities secondary end stage liver disease -stop IVF -restrict fluid to 1 Liter per day -start IV lasics 40mg bid -will add potassium while on diuretic #BUN/CR decreased secondary to severe malnutrition -nutrition consult Dispo: We will continue to follow the patient. Thank you for this consultative opportunity. Problem List - Problems (1) Cachexia Code(s): R64 - CACHEXIA (2) Hypoalbuminemia Code(s): E88.09 - OTH DISORDERS OF PLASMA-PROTEIN METABOLISM, NEC (3) Jaundice Code(s): R17 - UNSPECIFIED JAUNDICE (4) Peripheral edema Code(s): R60.9 - EDEMA, UNSPECIFIED (5) Substance abuse Code(s): F19.10 - OTHER PSYCHOACTIVE SUBSTANCE ABUSE, UNCOMPLICATED (6) Alcoholic liver damage Code(s): K70.9 - ALCOHOLIC LIVER DISEASE, UNSPECIFIED Visit type - Emergency Visit Emergency Visit: Yes ED Registration Date: 03/19/17 Care time: The patient presented to the Emergency Department on the above date and was hospitalized for further evaluation of their emergent condition. - New Patient This patient is new to me today: Yes Date on this admission: 03/26/17 - Critical Care Critical Care patient: No
[2017-03-26] MEDS ORDERED: PT OWN MED DRAWER 7, Y5N ONE ×2 (17:17→21:25)
[2017-03-26] MEDS: NEOMYCIN/POLYMYXIN/BACITRACIN (TRIPLE ANTIBIOTIC) 28 GM OINTMENT TP SCH ×2 (17:27→21:30)
--- NOTE | 2017-03-26 17:30 | PN ---
Teaching Attending Note Name of Resident: Stephanie Rodriguez (Nephrology) ATTENDING PHYSICIAN STATEMENT I saw and evaluated the patient. I reviewed the resident's note and discussed the case with the resident. I agree with the resident's findings and plan as documented. SUBJECTIVE: OBJECTIVE: ASSESSMENT AND PLAN: Nephrology Consult Pt seen and examined at bedside with resident. She presented to the er with midsternal burning initially. I was called to evaluate her for fluid overload. She has history of liver cirrhosis secondary to ETOH, GERD, HTN, and psoriasis. She is still actively drinking. She complains of increased edema to her thighs. She denies chest pain or shortness of breath at the moment. She denies fevers or chills. She did have a paracentesis. PMHX liver cirrhosis etoh abuse gerd psoriasis ascites nkda social hx etoh abuse, opioid use family hx denies ROS edema and swelling of legs Current Active Problems Cachexia (Acute) Hypoalbuminemia (Acute) Jaundice (Acute) Peripheral edema (Acute) Substance abuse (Acute) Last Vital Signs Temp Pulse Resp BP Pulse Ox 98.4 F 87 20 105/48 100 03/26/17 14:00 03/26/17 14:00 03/26/17 14:00 03/26/17 14:00 03/26/17 11:10 Laboratory Tests 03/19/17 03/19/17 03/20/17 16:42 16:42 08:00 Hgb Sodium Potassium Chloride Carbon Dioxide Anion Gap BUN Creatinine Creat Clearance w eGFR Random Glucose Calcium Total Bilirubin Albumin Urine Protein 1+ H Urine Blood 1+ H Opiates Screen Methadone Screen Barbiturate Screen Phencyclidine Screen Ur Amphetamines Screen MDMA (Ecstasy) Screen Benzodiazepines Screen Cocaine Screen U Marijuana (THC) Screen Alcohol, Quantitative 65.5 H* Hepatitis C Antibody Pending HIV 1&2 Antibody Screen HIV P24 Antigen 03/21/17 03/21/17 03/21/17 07:40 11:40 12:18 Hgb 9.2 L Sodium Potassium Chloride Carbon Dioxide Anion Gap BUN Creatinine Creat Clearance w eGFR Random Glucose Calcium Total Bilirubin Albumin Urine Protein Urine Blood Opiates Screen Positive Methadone Screen Negative Barbiturate Screen Negative Phencyclidine Screen Negative Ur Amphetamines Screen Negative MDMA (Ecstasy) Screen Negative Benzodiazepines Screen Negative Cocaine Screen Negative U Marijuana (THC) Screen Negative Alcohol, Quantitative Hepatitis C Antibody HIV 1&2 Antibody Screen Negative HIV P24 Antigen Negative 03/23/17 03/24/17 03/24/17 05:40 05:35 05:35 Hgb 8.3 L 8.7 L Sodium Potassium Chloride Carbon Dioxide Anion Gap BUN Creatinine Creat Clearance w eGFR Random Glucose Calcium 7.0 L Total Bilirubin 3.6 H Albumin Urine Protein Urine Blood Opiates Screen Methadone Screen Barbiturate Screen Phencyclidine Screen Ur Amphetamines Screen MDMA (Ecstasy) Screen Benzodiazepines Screen Cocaine Screen U Marijuana (THC) Screen Alcohol, Quantitative Hepatitis C Antibody HIV 1&2 Antibody Screen HIV P24 Antigen 03/26/17 03/26/17 05:35 06:00 Hgb 8.0 L Sodium 143 Potassium 3.5 Chloride 113 H Carbon Dioxide 20 L Anion Gap 10 BUN 1 L* D Creatinine 0.5 L Creat Clearance w eGFR > 60 Random Glucose 76 Calcium 6.4 L* Total Bilirubin 3.4 H Albumin 0.9 L Urine Protein Urine Blood Opiates Screen Methadone Screen Barbiturate Screen Phencyclidine Screen Ur Amphetamines Screen MDMA (Ecstasy) Screen Benzodiazepines Screen Cocaine Screen U Marijuana (THC) Screen Alcohol, Quantitative Hepatitis C Antibody HIV 1&2 Antibody Screen HIV P24 Antigen cardio s1s2 reg pulm clear GI ascites, umbilical hernia ext plus 3 edema skin psoriasis circ pos pulses neuro awake and alert Impression 1. Fluid overload 2. liver cirrhosis 3. ascites 4. hypoalbuminemia 5. GERD 6. etoh abuse 7. substance abuse 8. psoriasis Plan - will replace potassium - will start to diurese with lasix - repeat labs in am - check urine prot to vice president of operations ratio - repeat ua - GI follow up - will follow closely Thank you for this consultation Dr Chavez
[2017-03-26] MEDS ORDERED: POTASSIUM CHLORIDE TABS 20 MEQ TABLET.ER (FP) PO ONE (17:32)
[2017-03-26] MEDS ORDERED: FUROSEMIDE 40 MG/4 ML INJECTABLE VIAL IVPUSH ONE (17:32)
[2017-03-26] MEDS ORDERED: KCL 10 MEQ IVPB 100 ML IVPB ONE (17:45)
[2017-03-26] MEDS ORDERED: ALBUMIN HUMAN 25% 12.5 GM/50 ML VIAL IVPB ONE (19:30)
--- NOTE | 2017-03-26 20:38 | PN ---
Progress Note, Physician History of Present Illness: No new changes Pt states that she is eating well? - Current Medication List Current Medications: Active Medications Furosemide (Lasix Injection -) 20 mg IVPUSH BID@0600,1400 [facility] Piperacillin Sod/Tazobactam Sod (Zosyn 3.375gm Ivpb (Pre-Docked)) 50 mls @ 100 mls/hr IVPB Q8H-IV RAUL PRN Reason: Protocol Last Admin: 03/26/17 18:00 Dose: 100 mls/hr Neomycin/Polymyxin/Bacitracin (Neosporin Topical Ointment -) 1 applic TP BID RAUL Last Admin: 03/26/17 17:27 Dose: 1 applic - Objective Vital Signs: Vital Signs Temperature 98.2 F 03/26/17 18:40 Pulse Rate 94 H 03/26/17 18:40 Respiratory Rate 20 03/26/17 18:40 Blood Pressure 102/37 03/26/17 18:40 O2 Sat by Pulse Oximetry (%) 100 03/26/17 11:10 Constitutional: Yes: Cachectic Eyes: Yes: WNL HENT: Yes: WNL Neck: Yes: Supple Cardiovascular: Yes: WNL, Regular Rate and Rhythm Respiratory: Yes: WNL, Regular, CTA Bilaterally Gastrointestinal: Yes: Normal Bowel Sounds, Distention Edema: LLE: 1+, RLE: 1+ Labs: CBC, BMP 03/26/17 05:35 03/26/17 06:00 INR, PTT INR 1.63 (0.82-1.09) H 03/23/17 09:30 Problem List - Problems (1) Sepsis Assessment/Plan: Cont iv zosyn/vanco WBC normal Code(s): A41.9 - SEPSIS, UNSPECIFIED ORGANISM (2) Abdominal pain Assessment/Plan: ESLD Ascites due to hypoalbuminemia Pt now on IV lasix Code(s): R10.9 - UNSPECIFIED ABDOMINAL PAIN (3) Cachexia Code(s): R64 - CACHEXIA (4) Jaundice Code(s): R17 - UNSPECIFIED JAUNDICE (5) Peripheral edema Assessment/Plan: Cont IV lasix Code(s): R60.9 - EDEMA, UNSPECIFIED (6) Substance abuse Code(s): F19.10 - OTHER PSYCHOACTIVE SUBSTANCE ABUSE, UNCOMPLICATED
[2017-03-26 23:35] LABS: URINE CREATININE < 13.0 mg/dL (20-320)
[2017-03-26 23:37] LABS: URINE COLOR STRAW
[2017-03-26 23:38] LABS: URINE APPEARANCE CLEAR; URINE GLUCOSE (UA) NEGATIVE (NEGATIVE)
[2017-03-26 23:39] LABS: URINE BILIRUBIN NEGATIVE (NEGATIVE); URINE BLOOD NEGATIVE (NEGATIVE); URINE KETONE NEGATIVE (NEGATIVE); URINE PROTEIN NEGATIVE (NEGATIVE)
[2017-03-26 23:40] LABS: URINE UROBILINOGEN NORMAL (0.2-1.0)
[2017-03-26 23:41] LABS: URINE LEUK ESTERASE NEGATIVE (NEGATIVE); URINE NITRITE NEGATIVE (NEGATIVE)
[2017-03-27] MEDS: PIPERACILLIN/TAZOB 3.375 GM 50 ML IVPB SCH ×3 (00:59→17:07)
[2017-03-27] MEDS: FUROSEMIDE 40 MG/4 ML INJECTABLE VIAL IVPUSH SCH ×2 (06:26→17:59)
[2017-03-27 08:35] LABS: ALBUMIN 1.4 g/dl (3.4-5.0); ALK PHOS 372 U/L (45-117); ANION GAP 9 (8-16); BILIRUBIN,TOTAL 4.5 mg/dL (0.2-1.0); CO2 23 mmol/L (21-32); COCKROFT - GAULT 93.7465; CREATININE 0.6 mg/dL (0.55-1.02); GLUCOSE,RANDOM 60 mg/dL (74-106); MAGNESIUM 0.9 mg/dL (1.8-2.4); SGOT/AST 63 U/L (15-37); SGPT/ALT 15 U/L (12-78); TOT PROT 5.6 g/dl (6.4-8.2)
[2017-03-27 08:41] LABS: CALCIUM 6.4 mg/dL (8.5-10.1)
[2017-03-27] MEDS: NEOMYCIN/POLYMYXIN/BACITRACIN (TRIPLE ANTIBIOTIC) 28 GM OINTMENT TP SCH ×3 (09:15→21:11)
[2017-03-27] MEDS: KCL 10 MEQ IVPB 100 ML IVPB SCH ×4 (09:45→14:33)
[2017-03-27] MEDS ORDERED: CALCIUM GLUCONATE 10% - 1,000 MG/10 ML VIAL IVPB ONE (10:00)
[2017-03-27] MEDS ORDERED: MAGNESIUM OXIDE 400 MG TABLET (FP) PO ONE (10:00)
[2017-03-27] MEDS ORDERED: POTASSIUM CHLORIDE TABS 20 MEQ TABLET.ER (FP) PO ONE ×2 (12:00→20:18)
[2017-03-27] MEDS ORDERED: KCL 10 MEQ IVPB 100 ML IVPB ONE (14:30)
--- NOTE | 2017-03-27 18:28 | PN ---
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 - Current Medication List Current Medications: Active Medications Furosemide (Lasix Injection -) 20 mg IVPUSH BID@0600,1400 [facility] Last Admin: 03/27/17 17:59 Dose: 20 mg Piperacillin Sod/Tazobactam Sod (Zosyn 3.375gm Ivpb (Pre-Docked)) 50 mls @ 100 mls/hr IVPB Q8H-IV RAUL PRN Reason: Protocol Last Admin: 03/27/17 17:07 Dose: 100 mls/hr Neomycin/Polymyxin/Bacitracin (Neosporin Topical Ointment -) 1 applic TP BID [facility] Last Admin: 03/27/17 09:15 Dose: 1 applic - Objective Vital Signs: Vital Signs Temperature 97.7 F 03/27/17 13:52 Pulse Rate 88 03/27/17 13:52 Respiratory Rate 20 03/27/17 13:52 Blood Pressure 93/56 03/27/17 13:52 O2 Sat by Pulse Oximetry (%) 100 03/27/17 09:00 Constitutional: Yes: Calm, Cachectic Eyes: Yes: Sclera Icterus HENT: Yes: Atraumatic Neck: Yes: Supple Cardiovascular: Yes: Regular Rate and Rhythm Respiratory: Yes: CTA Bilaterally Gastrointestinal: Yes: Normal Bowel Sounds, Distention Extremities: Yes: WNL Edema: LLE: 2+, RLE: 2+ Integumentary: Yes: Other (psoriasis) Neurological: Yes: Alert, Oriented Labs: CBC, BMP 03/26/17 05:35 03/27/17 06:00 INR, PTT INR 1.63 (0.82-1.09) H 03/23/17 09:30 Problem List - Problems (1) Abdominal pain Assessment/Plan: RESOLVED Code(s): R10.9 - UNSPECIFIED ABDOMINAL PAIN (2) Cachexia Assessment/Plan: need nutrition consult gi consult Code(s): R64 - CACHEXIA (3) Hypoalbuminemia Assessment/Plan: WAS GIVEN ALBUMIN BY NEPHRO Code(s): E88.09 - OTH DISORDERS OF PLASMA-PROTEIN METABOLISM, NEC (4) Jaundice Assessment/Plan: FOLLOW UP LFTS Code(s): R17 - UNSPECIFIED JAUNDICE (5) Lactic acid acidosis Assessment/Plan: FOLLOW LEVEL Code(s): E87.2 - ACIDOSIS (6) Peripheral edema Assessment/Plan: on diuretics Code(s): R60.9 - EDEMA, UNSPECIFIED (7) Sepsis Assessment/Plan: ON ABX CX NEGATIVE TO DATE Code(s): A41.9 - SEPSIS, UNSPECIFIED ORGANISM (8) Substance abuse Code(s): F19.10 - OTHER PSYCHOACTIVE SUBSTANCE ABUSE, UNCOMPLICATED (9) Alcoholic liver damage Code(s): K70.9 - ALCOHOLIC LIVER DISEASE, UNSPECIFIED
[2017-03-27 19:50] LABS: COCKROFT - GAULT 80.359; CREATININE 0.7 mg/dL (0.55-1.02)
[2017-03-27 20:05] LABS: CALCIUM 6.9 mg/dL (8.5-10.1)
[2017-03-27] MEDS ORDERED: MAGNESIUM SULF 50% (8.12 MEQ/2 ML-1 GM VIAL) IVPB ONE (20:21)
--- NOTE | 2017-03-27 20:23 | PN ---
Progress Note, Physician History of Present Illness: Pt seen and examined at bedside. She is awake and alert. She feels that the edema is improving. - Current Medication List Current Medications: Active Medications Furosemide (Lasix Injection -) 20 mg IVPUSH BID@0600,1400 [facility] Last Admin: 03/27/17 17:59 Dose: 20 mg Piperacillin Sod/Tazobactam Sod (Zosyn 3.375gm Ivpb (Pre-Docked)) 50 mls @ 100 mls/hr IVPB Q8H-IV RAUL PRN Reason: Protocol Last Admin: 03/27/17 17:07 Dose: 100 mls/hr Neomycin/Polymyxin/Bacitracin (Neosporin Topical Ointment -) 1 applic TP BID [facility] Last Admin: 03/27/17 10:00 Dose: Not Given Potassium Chloride (K-Dur -) 40 meq PO ONCE ONE Stop: 03/27/17 20:19 - Objective Vital Signs: Vital Signs Temperature 98.1 F 03/27/17 18:35 Pulse Rate 65 03/27/17 18:35 Respiratory Rate 20 03/27/17 18:35 Blood Pressure 106/66 03/27/17 18:35 O2 Sat by Pulse Oximetry (%) 100 03/27/17 09:00 Constitutional: Yes: Calm Eyes: Yes: Conjunctiva Clear HENT: Yes: Atraumatic Neck: Yes: Supple Cardiovascular: Yes: S1, S2 Gastrointestinal: Yes: Ascites Genitourinary: Yes: WNL Musculoskeletal: Yes: Muscle Weakness Edema: Yes Edema: LLE: 2+, RLE: 2+ Neurological: Yes: Oriented Psychiatric: Yes: Oriented Labs: CBC, BMP 03/26/17 05:35 03/27/17 18:48 INR, PTT INR 1.63 (0.82-1.09) H 03/23/17 09:30 Problem List - Problems (1) Cachexia Code(s): R64 - CACHEXIA (2) Hypoalbuminemia Code(s): E88.09 - OTH DISORDERS OF PLASMA-PROTEIN METABOLISM, NEC (3) Peripheral edema Code(s): R60.9 - EDEMA, UNSPECIFIED (4) Substance abuse Code(s): F19.10 - OTHER PSYCHOACTIVE SUBSTANCE ABUSE, UNCOMPLICATED (5) Alcoholic liver damage Code(s): K70.9 - ALCOHOLIC LIVER DISEASE, UNSPECIFIED Assessment/Plan Current Medications Generic Name Dose Route Start Last Admin Trade Name Ruben PRN Reason Stop Dose Admin Furosemide 20 mg 03/27/17 06:00 03/27/17 17:59 Lasix Injection - IVPUSH 20 mg BID@0600,1400 RAUL Administration Piperacillin Sod/Tazobactam Sod 50 mls @ 100 mls/hr 03/20/17 14:00 03/27/17 17: 07 Zosyn 3.375gm Ivpb (Pre-Docked) IVPB 100 mls/hr Q8H-IV RAUL Administration Protocol Neomycin/Polymyxin/Bacitracin 1 applic 03/24/17 13:00 03/27/17 10:00 Neosporin Topical Ointment - TP Not Given BID [facility] Potassium Chloride 40 meq 03/27/17 20:18 K-Dur - PO 03/27/17 20:19 ONCE ONE Laboratory Tests 03/26/17 03/26/17 22:26 22:26 Urine Protein Negative Urine Blood Negative U Random Total Protein < 5 L Urine Creatinine < 13.0 L Impression 1. Fluid overload 2. liver cirrhosis 3. ascites 4. hypoalbuminemia 5. GERD 6. etoh abuse 7. substance abuse 8. psoriasis 9. hypokalemia Plan - cont with lasix - add spironolactone - assess for albumin tomorrow as well - replace potassium and mag - GI follow up - will follow closely Thank you for this consultation
[2017-03-27] MEDS ORDERED: PT OWN MED DRAWER 7, Y5N ONE (21:47)
[2017-03-27] MEDS: PANTOPRAZOLE 40 MG TABLET (FP) PO SCH (21:59)
[2017-03-27] MEDS ORDERED: MAG HYDROX/AL HYDROX/SIMETH 30 ML UNIT-DOSE CUP PO ONE (22:00)
[2017-03-28] MEDS: PIPERACILLIN/TAZOB 3.375 GM 50 ML IVPB SCH ×2 (02:25→10:14)
[2017-03-28] MEDS: FUROSEMIDE 40 MG/4 ML INJECTABLE VIAL IVPUSH SCH ×2 (06:12→14:58)
[2017-03-28 07:13] LABS: MCH 33.7 pg (25.7-33.7); MCHC 34.1 g/dl (32.0-36.0); MEAN CELL VOLUME 98.8 fl (80-96); MEAN PLT VOLUME 8.9 fl (7.5-11.1); PLATELET COUNT 106 K/MM3 (134-434); RDW 15.8 % (11.6-15.6); WHITE BLOOD COUNT 6.3 K/mm3 (4.0-10.0)
[2017-03-28 07:57] LABS: ALBUMIN 1.2 g/dl (3.4-5.0); ALK PHOS 347 U/L (45-117); ANION GAP 12 (8-16); BILIRUBIN,TOTAL 4.5 mg/dL (0.2-1.0); CO2 25 mmol/L (21-32); COCKROFT - GAULT 107.6865; CREATININE 0.5 mg/dL (0.55-1.02); GLUCOSE,RANDOM 70 mg/dL (74-106); MAGNESIUM 1.4 mg/dL (1.8-2.4); SGOT/AST 71 U/L (15-37); SGPT/ALT 15 U/L (12-78); TOT PROT 5.3 g/dl (6.4-8.2)
[2017-03-28 08:40] LABS: CALCIUM 6.5 mg/dL (8.5-10.1)
--- NOTE | 2017-03-28 10:11 | PN ---
Progress Note, Physician History of Present Illness: patient with complaint of swelling of the leg says appetitie improving patient starting to look much better - Current Medication List Current Medications: Active Medications Furosemide (Lasix Injection -) 20 mg IVPUSH BID@0600,1400 [facility] Last Admin: 03/28/17 06:12 Dose: Not Given Piperacillin Sod/Tazobactam Sod (Zosyn 3.375gm Ivpb (Pre-Docked)) 50 mls @ 100 mls/hr IVPB Q8H-IV RAUL PRN Reason: Protocol Last Admin: 03/28/17 02:25 Dose: 100 mls/hr Neomycin/Polymyxin/Bacitracin (Neosporin Topical Ointment -) 1 applic TP BID [facility] Last Admin: 03/27/17 21:11 Dose: 1 applic Pantoprazole Sodium (Protonix -) 40 mg PO DAILY [facility] Last Admin: 03/27/17 21:59 Dose: 40 mg Spironolactone (Aldactone -) 25 mg PO DAILY [facility] - Objective Vital Signs: Vital Signs Temperature 97.8 F 03/28/17 06:00 Pulse Rate 72 03/28/17 06:00 Respiratory Rate 18 03/28/17 06:00 Blood Pressure 88/52 03/28/17 06:00 O2 Sat by Pulse Oximetry (%) 100 03/27/17 20:18 Constitutional: Yes: Calm, Mild Distress, Other (failure to thrive) Cardiovascular: Yes: Regular Rate and Rhythm Respiratory: Yes: Regular, CTA Bilaterally Gastrointestinal: Yes: Normal Bowel Sounds, Soft Musculoskeletal: Yes: Other Extremities: Yes: Other Edema: LLE: 3+, RLE: 3+ Wound/Incision: Yes: Open to air Neurological: Yes: Alert, Oriented Psychiatric: Yes: Alert Labs: CBC, BMP 03/28/17 06:00 03/28/17 06:00 INR, PTT INR 1.63 (0.82-1.09) H 03/23/17 09:30 Assessment/Plan Problem List - Problems (1) Sepsis Code(s): A41.9 - SEPSIS, UNSPECIFIED ORGANISM (2) Abdominal pain Code(s): R10.9 - UNSPECIFIED ABDOMINAL PAIN (3) Alcoholic liver damage Code(s): K70.9 - ALCOHOLIC LIVER DISEASE, UNSPECIFIED (4) Peripheral edema Code(s): R60.9 - EDEMA, UNSPECIFIED (5) Substance abuse Assessment/Plan: Will get psych consult Code(s): F19.10 - OTHER PSYCHOACTIVE SUBSTANCE ABUSE, UNCOMPLICATED (6) Jaundice Assessment/Plan: Due to liver dz Code(s): R17 - UNSPECIFIED JAUNDICE (7) Cachexia Code(s): R64 - CACHEXIA (8) Hypoalbuminemia Code(s): E88.09 - OTH DISORDERS OF PLASMA-PROTEIN METABOLISM, NEC (9) Lactic acid acidosis Code(s): E87.2 - ACIDOSIS (10) Peripheral edema Code(s): R60.9 - EDEMA, UNSPECIFIED plan continue zosyn elevation of the leg rrenal planning to see the patient rest ct current mgmt
--- NOTE | 2017-03-28 10:13 | PN ---
Progress Note, Physician History of Present Illness: stable diet improving legs improving main issue is heaviness in the leg - Current Medication List Current Medications: Active Medications Furosemide (Lasix Injection -) 20 mg IVPUSH BID@0600,1400 [facility] Last Admin: 03/28/17 06:12 Dose: Not Given Piperacillin Sod/Tazobactam Sod (Zosyn 3.375gm Ivpb (Pre-Docked)) 50 mls @ 100 mls/hr IVPB Q8H-IV RAUL PRN Reason: Protocol Last Admin: 03/28/17 02:25 Dose: 100 mls/hr Neomycin/Polymyxin/Bacitracin (Neosporin Topical Ointment -) 1 applic TP BID [facility] Last Admin: 03/27/17 21:11 Dose: 1 applic Pantoprazole Sodium (Protonix -) 40 mg PO DAILY [facility] Last Admin: 03/27/17 21:59 Dose: 40 mg Spironolactone (Aldactone -) 25 mg PO DAILY [facility] - Objective Vital Signs: Vital Signs Temperature 97.8 F 03/28/17 06:00 Pulse Rate 72 03/28/17 06:00 Respiratory Rate 18 03/28/17 06:00 Blood Pressure 88/52 03/28/17 06:00 O2 Sat by Pulse Oximetry (%) 100 03/27/17 20:18 Constitutional: Yes: Calm, Mild Distress Cardiovascular: Yes: Regular Rate and Rhythm Respiratory: Yes: Regular, CTA Bilaterally Gastrointestinal: Yes: Normal Bowel Sounds, Soft Musculoskeletal: Yes: Other Extremities: Yes: Other Edema: LLE: 3+, RLE: 3+ Neurological: Yes: Alert, Oriented Psychiatric: Yes: Alert, Oriented Labs: CBC, BMP 03/28/17 06:00 03/28/17 06:00 INR, PTT INR 1.63 (0.82-1.09) H 03/23/17 09:30 Assessment/Plan Problem List - Problems (1) Sepsis Code(s): A41.9 - SEPSIS, UNSPECIFIED ORGANISM (2) Abdominal pain Code(s): R10.9 - UNSPECIFIED ABDOMINAL PAIN (3) Alcoholic liver damage Code(s): K70.9 - ALCOHOLIC LIVER DISEASE, UNSPECIFIED (4) Peripheral edema Code(s): R60.9 - EDEMA, UNSPECIFIED (5) Substance abuse Assessment/Plan: Will get psych consult Code(s): F19.10 - OTHER PSYCHOACTIVE SUBSTANCE ABUSE, UNCOMPLICATED (6) Jaundice Assessment/Plan: Due to liver dz Code(s): R17 - UNSPECIFIED JAUNDICE (7) Cachexia Code(s): R64 - CACHEXIA (8) Hypoalbuminemia Code(s): E88.09 - OTH DISORDERS OF PLASMA-PROTEIN METABOLISM, NEC (9) Lactic acid acidosis Code(s): E87.2 - ACIDOSIS (10) Peripheral edema Code(s): R60.9 - EDEMA, UNSPECIFIED plan continue zosyn elevation of the leg will see what renal says will deescalate abx by thursday all cx reports noted
[2017-03-28] MEDS: SPIRONOLACTONE 25 MG TABLET (FP) PO SCH (10:14)
[2017-03-28] MEDS: PANTOPRAZOLE 40 MG TABLET (FP) PO SCH (10:14)
[2017-03-28] MEDS: NEOMYCIN/POLYMYXIN/BACITRACIN (TRIPLE ANTIBIOTIC) 28 GM OINTMENT TP SCH ×2 (10:15→22:02)
--- NOTE | 2017-03-28 10:15 | PN ---
Progress Note, Physician History of Present Illness: feeling much better post diuresis renal following erythema resolved swelling of the leg has decreased - Current Medication List Current Medications: Active Medications Furosemide (Lasix Injection -) 20 mg IVPUSH BID@0600,1400 [facility] Last Admin: 03/28/17 06:12 Dose: Not Given Piperacillin Sod/Tazobactam Sod (Zosyn 3.375gm Ivpb (Pre-Docked)) 50 mls @ 100 mls/hr IVPB Q8H-IV RAUL PRN Reason: Protocol Last Admin: 03/28/17 02:25 Dose: 100 mls/hr Neomycin/Polymyxin/Bacitracin (Neosporin Topical Ointment -) 1 applic TP BID [facility] Last Admin: 03/27/17 21:11 Dose: 1 applic Pantoprazole Sodium (Protonix -) 40 mg PO DAILY [facility] Last Admin: 03/27/17 21:59 Dose: 40 mg Spironolactone (Aldactone -) 25 mg PO DAILY [facility] - Objective Vital Signs: Vital Signs Temperature 97.8 F 03/28/17 06:00 Pulse Rate 72 03/28/17 06:00 Respiratory Rate 18 03/28/17 06:00 Blood Pressure 88/52 03/28/17 06:00 O2 Sat by Pulse Oximetry (%) 100 03/27/17 20:18 Constitutional: Yes: Calm, Mild Distress Cardiovascular: Yes: Regular Rate and Rhythm Respiratory: Yes: Regular, CTA Bilaterally Gastrointestinal: Yes: Normal Bowel Sounds, Soft, Other (ascites) Musculoskeletal: Yes: Other Extremities: Yes: Other Edema: LLE: 2+, RLE: 2+ Wound/Incision: Yes: Clean/Dry Neurological: Yes: Alert, Oriented Labs: CBC, BMP 03/28/17 06:00 03/28/17 06:00 INR, PTT INR 1.63 (0.82-1.09) H 03/23/17 09:30 Assessment/Plan Problem List - Problems (1) Sepsis Code(s): A41.9 - SEPSIS, UNSPECIFIED ORGANISM (2) Abdominal pain Code(s): R10.9 - UNSPECIFIED ABDOMINAL PAIN (3) Alcoholic liver damage Code(s): K70.9 - ALCOHOLIC LIVER DISEASE, UNSPECIFIED (4) Peripheral edema Code(s): R60.9 - EDEMA, UNSPECIFIED (5) Substance abuse Assessment/Plan: Will get psych consult Code(s): F19.10 - OTHER PSYCHOACTIVE SUBSTANCE ABUSE, UNCOMPLICATED (6) Jaundice Assessment/Plan: Due to liver dz Code(s): R17 - UNSPECIFIED JAUNDICE (7) Cachexia Code(s): R64 - CACHEXIA (8) Hypoalbuminemia Code(s): E88.09 - OTH DISORDERS OF PLASMA-PROTEIN METABOLISM, NEC (9) Lactic acid acidosis Code(s): E87.2 - ACIDOSIS (10) Peripheral edema Code(s): R60.9 - EDEMA, UNSPECIFIED plan stopped abx will monitor off of abx continue diuresis as per renal rest as per primary team
--- NOTE | 2017-03-28 11:52 | PN ---
GI Progress Note Subjective: Patient states she feels better. States appetite improved. Some decrease in peripheral edema - Objective Vital Signs: Vital Signs Temperature 97.8 F 03/28/17 06:00 Pulse Rate 92 H 03/28/17 10:20 Respiratory Rate 16 03/28/17 10:20 Blood Pressure 99/50 03/28/17 10:20 O2 Sat by Pulse Oximetry (%) 100 03/27/17 20:18 Constitutional: Cachectic Eyes: Yes: Sclera Icterus HENT: Yes: Normocephalic, Other (Temporal wasting) Neck: Yes: Supple Cardiovascular: Yes: Regular Rate and Rhythm Respiratory: Yes: CTA Bilaterally Gastrointestinal Inspection: Yes: Other (scaphoid) Labs: CBC, BMP 03/28/17 06:00 03/28/17 06:00 INR, PTT INR 1.63 (0.82-1.09) H 03/23/17 09:30 Assessment/Plan Patient with profound malnutrition and ESLD Diuretics held today due to hypotension Hypokalemia, likely secondary to lasix Will replace K Hypocalcemia secondary to hypoproteinemia-calculated Ca is normal 8.5 Rec: Would diurese with care as she is baseline hypotensive and edema is secondary to hypoproteinemia-a condition that is not correctable in the short term. Albumin infusion is only a very temporary fix and will not have a meaningful clinical impact. Avoid Ca infusion. Nutrition consult done. Malnutrition and ESLD are chronic problems that can be followed as an outptient.
--- NOTE | 2017-03-28 12:06 | PN ---
Progress Note, Physician History of Present Illness: No new changes - Current Medication List Current Medications: Active Medications Furosemide (Lasix Injection -) 20 mg IVPUSH BID@0600,1400 [facility] Last Admin: 03/28/17 06:12 Dose: Not Given Neomycin/Polymyxin/Bacitracin (Neosporin Topical Ointment -) 1 applic TP BID [facility] Last Admin: 03/28/17 10:15 Dose: 1 applic Pantoprazole Sodium (Protonix -) 40 mg PO DAILY [facility] Last Admin: 03/28/17 10:14 Dose: 40 mg Spironolactone (Aldactone -) 25 mg PO DAILY [facility] Last Admin: 03/28/17 10:14 Dose: 25 mg - Objective Vital Signs: Vital Signs Temperature 97.8 F 03/28/17 06:00 Pulse Rate 92 H 03/28/17 10:20 Respiratory Rate 16 03/28/17 10:20 Blood Pressure 99/50 03/28/17 10:20 O2 Sat by Pulse Oximetry (%) 100 03/27/17 20:18 Constitutional: Yes: Cachectic Eyes: Yes: WNL HENT: Yes: WNL Neck: Yes: WNL Cardiovascular: Yes: WNL, Regular Rate and Rhythm Respiratory: Yes: WNL, Regular, CTA Bilaterally Gastrointestinal: Yes: WNL, Normal Bowel Sounds, Soft Labs: CBC, BMP 03/28/17 06:00 03/28/17 06:00 INR, PTT INR 1.63 (0.82-1.09) H 03/23/17 09:30 Problem List - Problems (1) Sepsis Code(s): A41.9 - SEPSIS, UNSPECIFIED ORGANISM (2) Abdominal pain Code(s): R10.9 - UNSPECIFIED ABDOMINAL PAIN (3) Cachexia Code(s): R64 - CACHEXIA (4) Jaundice Code(s): R17 - UNSPECIFIED JAUNDICE (5) Peripheral edema Code(s): R60.9 - EDEMA, UNSPECIFIED (6) Substance abuse Code(s): F19.10 - OTHER PSYCHOACTIVE SUBSTANCE ABUSE, UNCOMPLICATED
[2017-03-28] MEDS ORDERED: POTASSIUM CHLORIDE TABS 20 MEQ TABLET.ER (FP) PO SCH (12:15)
--- NOTE | 2017-03-28 12:45 | PN ---
Progress Note (short form) - Note Progress Note: RENAL Pt states she is better concerned about fluid in iv potassium had nausea but felt it was a gas pocket Last Vital Signs Temp Pulse Resp BP Pulse Ox 97.8 F 92 H 16 99/50 100 03/28/17 06:00 03/28/17 10:20 03/28/17 10:20 03/28/17 10:20 03/27/17 20:18 cachectic lungs clear cvs s1s2 rr abd soft ext +edema skin generalized psoriasis neuro a+ox3 Current Medications Generic Name Dose Route Start Last Admin Trade Name Freq PRN Reason Stop Dose Admin Furosemide 20 mg 03/27/17 06:00 03/28/17 06:12 Lasix Injection - IVPUSH Not Given BID@0600,1400 RAUL Neomycin/Polymyxin/Bacitracin 1 applic 03/24/17 13:00 03/28/17 10:15 Neosporin Topical Ointment - TP 1 applic BID RAUL Administration Pantoprazole Sodium 40 mg 03/27/17 22:00 03/28/17 10:14 Protonix - PO 40 mg DAILY RAUL Administration Potassium Chloride 40 meq 03/28/17 12:15 03/28/17 12:25 K-Dur - PO 40 meq DAILY RAUL Administration Spironolactone 25 mg 03/28/17 10:00 03/28/17 10:14 Aldactone - PO 25 mg DAILY RAUL Administration CBC, BMP 03/28/17 06:00 03/28/17 06:00 Impression 1. Fluid overload 2. liver cirrhosis 3. ascites 4. hypoalbuminemia 5. GERD 6. etoh abuse 7. substance abuse 8. psoriasis 9. hypokalemia Plan - hold lasix until k is controlled - can keep on spironolactone - replace potassium and mag - GI follow up noted MV
[2017-03-28] MEDS ORDERED: MAGNESIUM CL 64 MG TABLET.SA PO ONE (19:15)
[2017-03-28] MEDS ORDERED: PT OWN MED DRAWER 7, Y5N ONE (21:49)
[2017-03-28] MEDS: POTASSIUM CHLORIDE TABS 20 MEQ TABLET.ER (FP) PO SCH (22:01)
[2017-03-29 06:56] LABS: BASOPHIL 0.9 % (0-2.0); EOSINOPHIL 1.3 % (0-4.5); MCH 33.2 pg (25.7-33.7); MCHC 33.5 g/dl (32.0-36.0); MEAN CELL VOLUME 99.3 fl (80-96); MEAN PLT VOLUME 9.2 fl (7.5-11.1); NEUTROPHILS 61.7 % (42.8-82.8); PLATELET COUNT 137 K/MM3 (134-434); RDW 15.3 % (11.6-15.6); WHITE BLOOD COUNT 5.4 K/mm3 (4.0-10.0)
[2017-03-29 07:39] LABS: ALBUMIN 1.2 g/dl (3.4-5.0); ANION GAP 10 (8-16); CO2 27 mmol/L (21-32); COCKROFT - GAULT 106.2245; CREATININE 0.5 mg/dL (0.55-1.02); GLUCOSE,RANDOM 70 mg/dL (74-106); SGOT/AST 73 U/L (15-37); SGPT/ALT 16 U/L (12-78)
[2017-03-29 07:41] LABS: ALK PHOS 356 U/L (45-117); BILIRUBIN,TOTAL 3.5 mg/dL (0.2-1.0); TOT PROT 5.5 g/dl (6.4-8.2)
[2017-03-29 07:46] LABS: CALCIUM 6.9 mg/dL (8.5-10.1)
[2017-03-29] MEDS ORDERED: PT OWN MED DRAWER 7, Y5N ONE ×2 (08:52→09:23)
[2017-03-29] MEDS: POTASSIUM CHLORIDE TABS 20 MEQ TABLET.ER (FP) PO SCH (09:14)
[2017-03-29] MEDS: SPIRONOLACTONE 25 MG TABLET (FP) PO SCH (09:15)
[2017-03-29] MEDS: PANTOPRAZOLE 40 MG TABLET (FP) PO SCH (09:15)
[2017-03-29] MEDS: NEOMYCIN/POLYMYXIN/BACITRACIN (TRIPLE ANTIBIOTIC) 28 GM OINTMENT TP SCH (09:16)
[2017-03-29 09:33] VITALS: BP 106/64; PULSE 119; TEMP 99.2
[2017-03-29] MEDS ORDERED: MAGNESIUM CL 64 MG TABLET.SA PO SCH (10:00)
--- NOTE | 2017-03-29 11:14 | PN ---
Progress Note, Physician History of Present Illness: stable main concern is leg pain rt thigh swelling much better still foot edema - Current Medication List Current Medications: Active Medications Magnesium Chloride (Slow-Mag -) 128 mg PO DAILY [facility] Last Admin: 03/29/17 09:14 Dose: 128 mg Neomycin/Polymyxin/Bacitracin (Neosporin Topical Ointment -) 1 applic TP BID [facility] Last Admin: 03/29/17 09:16 Dose: 1 applic Pantoprazole Sodium (Protonix -) 40 mg PO DAILY [facility] Last Admin: 03/29/17 09:15 Dose: 40 mg Potassium Chloride (K-Dur -) 40 meq PO BID [facility] Last Admin: 03/29/17 09:14 Dose: 40 meq Spironolactone (Aldactone -) 25 mg PO DAILY [facility] Last Admin: 03/29/17 09:15 Dose: 25 mg - Objective Vital Signs: Vital Signs Temperature 99.2 F 03/29/17 09:17 Pulse Rate 119 H 03/29/17 09:17 Respiratory Rate 20 03/29/17 09:17 Blood Pressure 106/64 03/29/17 09:17 O2 Sat by Pulse Oximetry (%) 100 03/29/17 09:17 Constitutional: Yes: No Distress, Calm, Other (failure to thrive) Cardiovascular: Yes: Regular Rate and Rhythm Respiratory: Yes: Regular, CTA Bilaterally Gastrointestinal: Yes: Normal Bowel Sounds, Soft Musculoskeletal: Yes: Other Extremities: Yes: Other Edema: LLE: 2+, RLE: 2+ Integumentary: Yes: Other (psoriatic rashes) Neurological: Yes: Alert, Oriented Psychiatric: Yes: Alert, Oriented Labs: CBC, BMP 03/29/17 06:00 03/29/17 06:00 INR, PTT INR 1.63 (0.82-1.09) H 03/23/17 09:30 Assessment/Plan Problem List - Problems (1) Sepsis Code(s): A41.9 - SEPSIS, UNSPECIFIED ORGANISM (2) Abdominal pain Code(s): R10.9 - UNSPECIFIED ABDOMINAL PAIN (3) Alcoholic liver damage Code(s): K70.9 - ALCOHOLIC LIVER DISEASE, UNSPECIFIED (4) Peripheral edema Code(s): R60.9 - EDEMA, UNSPECIFIED (5) Substance abuse Assessment/Plan: Will get psych consult Code(s): F19.10 - OTHER PSYCHOACTIVE SUBSTANCE ABUSE, UNCOMPLICATED (6) Jaundice Assessment/Plan: Due to liver dz Code(s): R17 - UNSPECIFIED JAUNDICE (7) Cachexia Code(s): R64 - CACHEXIA (8) Hypoalbuminemia Code(s): E88.09 - OTH DISORDERS OF PLASMA-PROTEIN METABOLISM, NEC (9) Lactic acid acidosis Code(s): E87.2 - ACIDOSIS (10) Peripheral edema Code(s): R60.9 - EDEMA, UNSPECIFIED plan stable off of abx continue as per renal and primary
--- NOTE | 2017-03-29 11:58 | PN ---
Progress Note (short form) - Note Progress Note: RENAL Pt states she is better swelling is down Last Vital Signs Temp Pulse Resp BP Pulse Ox 99.2 F 119 H 20 106/64 100 03/29/17 09:17 03/29/17 09:17 03/29/17 09:17 03/29/17 09:17 03/29/17 09:17 cachectic lungs clear cvs s1s2 rr abd soft ext trace edema skin generalized psoriasis neuro a+ox3 Current Medications Generic Name Dose Route Start Last Admin Trade Name Ruben PRN Reason Stop Dose Admin Magnesium Chloride 128 mg 03/29/17 10:00 03/29/17 09:14 Slow-Mag - PO 128 mg DAILY RAUL Administration Neomycin/Polymyxin/Bacitracin 1 applic 03/24/17 13:00 03/29/17 09:16 Neosporin Topical Ointment - TP 1 applic BID RAUL Administration Pantoprazole Sodium 40 mg 03/27/17 22:00 03/29/17 09:15 Protonix - PO 40 mg DAILY RAUL Administration Potassium Chloride 40 meq 03/28/17 22:00 03/29/17 09:14 K-Dur - PO 40 meq BID RAUL Administration Spironolactone 25 mg 03/28/17 10:00 03/29/17 09:15 Aldactone - PO 25 mg DAILY RAUL Administration CBC, BMP 03/29/17 06:00 03/29/17 06:00 Impression 1. Fluid overload 2. liver cirrhosis 3. ascites 4. hypoalbuminemia 5. GERD 6. etoh abuse 7. substance abuse 8. psoriasis 9. hypokalemia Plan - hold lasix until k is controlled - can keep on spironolactone - continue k MV
--- NOTE | 2017-04-01 11:00 | PN ---
Progress Note (short form) - Note Progress Note: 04/01/17 Upon review of the chart pt does have a diagnosis of Severe protein calorie malnutrition Problem List - Problems (1) Sepsis Code(s): A41.9 - SEPSIS, UNSPECIFIED ORGANISM (2) Abdominal pain Code(s): R10.9 - UNSPECIFIED ABDOMINAL PAIN (3) Cachexia Code(s): R64 - CACHEXIA (4) Jaundice Code(s): R17 - UNSPECIFIED JAUNDICE (5) Peripheral edema Code(s): R60.9 - EDEMA, UNSPECIFIED (6) Substance abuse Code(s): F19.10 - OTHER PSYCHOACTIVE SUBSTANCE ABUSE, UNCOMPLICATED
== END 2017-03-29 14:10 | disposition home or self-care (01) | DRG 710 ==
LOC: JER 15:28 → JERBED 23:13 → J4S 03-21 18:16
PROVIDERS: ADMIT Internal Medicine; ATTEND Internal Medicine
PROC: 0W9G3ZX Drainage of Peritoneal Cavity, Percutaneous Approach, Diagnostic (ICD-10-PCS; principal; 2017-03-23)
DX: A41.9 Sepsis, unspecified organism (principal); R18.8 Other ascites; E43 Unspecified severe protein-calorie malnutrition; R64 Cachexia; E87.2 Acidosis; K70.31 Alcoholic cirrhosis of liver with ascites; E88.09 Other disorders of plasma-protein metabolism, not elsewhere classified; E87.70 Fluid overload, unspecified; E83.51 Hypocalcemia; E77.8 Other disorders of glycoprotein metabolism; K86.1 Other chronic pancreatitis; H05.20 Unspecified exophthalmos; L03.116 Cellulitis of left lower limb; L03.115 Cellulitis of right lower limb; K70.9 Alcoholic liver disease, unspecified; I10 Essential (primary) hypertension; K21.9 Gastro-esophageal reflux disease without esophagitis; L40.9 Psoriasis, unspecified; F17.210 Nicotine dependence, cigarettes, uncomplicated; Z68.1 Body mass index [BMI] 19.9 or less, adult; E87.6 Hypokalemia; R60.9 Edema, unspecified; F11.10 Opioid abuse, uncomplicated; R19.7 Diarrhea, unspecified; E86.0 Dehydration; F10.10 Alcohol abuse, uncomplicated; H50.9 Unspecified strabismus
CPT/HCPCS: 36415; 36430; 71020-TC; 74176-TC; 76705-TC; 76942-TC; 80048; 80053; 80307; 81003; 81015; 82042; 82140; 82150; 82172; 82248; 82570; 82607; 82945; 82977; 83010; 83605; 83615; 83690; 83735; 83883; 84134; 84156; 84157; 84460; 84478; 84703; 85025; 85027; 85610; 85730; 86803; 86850; 86900; 86901; 86922; 87070; 87075; 87102; 87116; 87205; 87206; 87210; 87389; 87899; 88108; 88305-TC; 89051; 93005; 93010; 99285-25; P9038; P9047; P9058

== ENCOUNTER 2019-02-01 09:03 | Emergency (ER) | payer OTHER ==
[2019-02-01] MEDS ORDERED: DEXTROSE 50%-WATER - 25 GM/50 ML VIAL ONE (09:09)
[2019-02-01] MEDS ORDERED: DEXTROSE 50%-WATER - 25 GM/50 ML VIAL IVPUSH STA (09:14)
[2019-02-01 09:17] VITALS: BMI 10.5
--- NOTE | 2019-02-01 09:18 | PDOC ---
History of Present Illness - History of Present Illness Initial Comments: 02/01/19 10:39 33-year-old female with a past medical history of anorexia nervosa, cirrhosis, ascites, chronic ETOH abuse, HTN, GERD, psoriasis, and cachexia presenting with lethargy and altered mental status since this morning. As per mother at bedside, patient woke up this morning with complaints of generalized weakness and nausea with no reported episodes of emesis. Per mother at bedside, patient was her normal self last night. At presentation, patient is lethargic/obtunded. ROS limited due to patients current clinical condition. Allergies: No Known Allergies Social History: Reported cigarette and alcohol use. Surgical History: Denies. PCP: Dr. Ralph Cordon <Phan Barba - Last Filed: 02/01/19 10:39> - General History Source: Family, Old Records Exam Limitations: Clinical Condition <Janet Crandall - Last Filed: 02/01/19 12:15> - General Chief Complaint: Weakness Stated Complaint: Weakness Time Seen by Provider: 02/01/19 09:13 Past History <Phan Barba - Last Filed: 02/01/19 10:39> - Past Medical History COPD: No GI Disorders: Yes (ACID REFLUX.) HTN: Yes Liver Disease: (ELEVATED LIVER ENZYMES.) - Suicide/Smoking/Psychosocial Hx Smoking History: Current every day smoker Have you smoked in the past 12 months: Yes Number of Cigarettes Smoked Daily: 5 Information on smoking cessation initiated: No Hx Alcohol Use: No Drug/Substance Use Hx: No Substance Use Type: Alcohol, Opiates, Prescribed Hx Substance Use Treatment: Yes ([facility] WALKED OFF March) <Janet Crandall - Last Filed: 02/01/19 12:15> - Past Medical History Allergies/Adverse Reactions: Allergies Allergy/AdvReac Type Severity Reaction Status Date / Time No Known Allergies Allergy Verified 03/19/17 15:36 Home Medications: Ambulatory Orders Cephalexin 250 mg PO Q6H 03/21/17 Amoxicillin/Potassium Clav [Augmentin 875-125 Tablet] 1 each PO BID #20 tablet 03/29/17 Spironolactone [Aldactone -] 25 mg PO DAILY #30 tablet 03/29/17 Review of Systems - Review of Systems Able to Perform ROS?: No (limited due to condition) Comments:: 02/01/19 10:39 ROS limited due to patients current clinical condition. <Phan Barba - Last Filed: 02/01/19 10:39> *Physical Exam - Vital Signs Last Vital Signs Temp Pulse Resp BP Pulse Ox 93.1 F L 60 22 H 113/79 100 02/01/19 09:15 02/01/19 10:07 02/01/19 09:15 02/01/19 09:15 02/01/19 09:15 - Physical Exam Comments: 02/01/19 10:39 General: (+)Disheveled and malnourished.(+)lethargic. (+)Very Cachetic. HEENT: (+)Front dental erosions, (+)dry and cracked lips. (+)Poor dentition. (+ )dry mucous membranes NCAT, PERRL, EOMI, clear conjunctiva, anicteric, clear oropharynx, no oral lesions. Neck: neck supple, FROM Chest wall: kyphotic, rib cage/margins visible Resp: CTAB, normal and even respirations, no respiratory distress CVS: Bradycardic, no murmurs, 2+ peripheral pulses throughout, no peripheral edema Abdomen: soft, NTND, no rebound or guarding. Back: nontender, normal inspection and ROM; kyphotic, bony prominences visible MSK: no edema, No clubbing or cyanosis. No bulk in musculature, very frail and cachectic Extremities: no calf tenderness Neuro: (+)obtunded. Skin: very cool and dry to touch, delayed cap refill =2 sec <FredaPhan - Last Filed: 02/01/19 10:39> - Vital Signs Last Vital Signs Temp Pulse Resp BP Pulse Ox 93.1 F L 40 L 22 H 113/79 100 02/01/19 09:15 02/01/19 09:15 02/01/19 09:15 02/01/19 09:15 02/01/19 09:15 <Janet Crandall - Last Filed: 02/01/19 12:15> Heart Score/ECG Review #1 ECG reviewed & interpreted by me at: 09:00 General ECG Interpretation: Sinus Rhythm Compared to previous ECG there are: Changes noted 02/01/19 11:40 EKG sinus bradycardia at 38 bpm, no interval abnormalities, narrow QRS, ST and T wave segments and morphology normal. Nonspecific T wave abnormalities, low voltage. <Janet Crandall - Last Filed: 02/01/19 12:15> ED Treatment Course - ADDITIONAL ORDERS Additional order review: Laboratory Results 02/01/19 02/01/19 09:27 09:07 POC Glucometer 110 < 10 02/01/19 02/01/19 09:27 09:07 POC Glucometer 110 < 10 - Medications Given in the ED: ED Medications Discontinued Medications Generic Name Dose Route Start Last Admin Trade Name Ruben PRN Reason Stop Dose Admin Dextrose 25 gm 02/01/19 09:14 02/01/19 09:38 D50w (Vial) - IVPUSH 02/01/19 09:15 25 gm NOW STA Administration <Phan Barba - Last Filed: 02/01/19 10:39> - LABORATORY CBC & Chemistry Diagram: 02/01/19 10:34 02/01/19 10:34 - ADDITIONAL ORDERS Additional order review: Laboratory Results 02/01/19 09:07 POC Glucometer < 10 02/01/19 09:07 POC Glucometer < 10 - RADIOLOGY Radiology Studies Ordered: Category Date Time Status CHEST X-RAY PORTABLE* [RAD] Stat Radiology 02/01/19 09:14 Ordered <Janet Crandall - Last Filed: 02/01/19 12:15> Medical Decision Making - Medical Decision Making 02/01/19 11:22 I, Janet Crandall MD, attest that this document has been prepared under my direction and personally reviewed by me in its entirety. I further attest, that it accurately reflects all work, treatment, procedures and medical decision -making performed by me. See HPI for details DDX electrolyte/metabolic derangements, encephalopathy, dehydration, arrhythmia , high ammonia. Vital signs reviewed, hypothermic/bradycardic; normotensive. Altered, lethargic. FS very low. Prior notes reviewed, including admissions, discharges and consultations. laboratory results and imaging reviewed, basic labs and lytes significant for - hyponatremia, likely hypovolemic vs malnutrition. - baseline anemia, no changes compared to prior - acute LFT elevation higher than last admit in 2017. AST >> ALT, c/w baseline alcohol cirrhosis, but worse compared to last results. - coags elevated given cirrhosis. UA and Utox ordered, pending awaiting sample Cardiac panel_neg trop. Lactic normal reassuring less likely severe sepsis, ischemia EKG sinus bradycardia at 38 bpm, no interval abnormalities, narrow QRS, ST and T wave segments and morphology normal. Nonspecific T wave abnormalities, low voltage. ED course - placed on Marvin hugger for low temp, likely hypothermia causing bradycardia, AMS and she is also notably initially hypoglycemic on BGM check. - D10 NS gtt and hydration given, now blood sugar improved, so stopped. - immediate reversal, mental status improving, warming up to 95 deg rectally, more alert and conversive on clinical recheck at 1115AM. - labs and lytes reviewed as above. - advised pt to be admitted to hospital for eval, hydration and correction of metabolic derangements, but pt adamantly refused. - extensive conversation with pt at bedside with her mother present, denying any history of eating disorder or malnutrition, but visibly cachectic with prior history of cirrhosis/ETOH abuse as well. - ambulated to the bathroom, steady gait. AAO x person time and place, oonversive able to repeat back indications, presentation and risks of leaving as cited below. - repeat VS normalizing, temp improved, 95 rectally, normotensive, HR improving , normal sats. The patient has requested to leave the ED against medical advice despite multiple attempts for admission for her metabolic derangements. The patient reason(s) for leaving include, but are not limited to, the following: refusing to be admitted for workup of her metabolic derangements, needs to "take care of things at home.." I believe this patient is of sound mind and competent to refuse medical care. The patient is responding and asking questions appropriately. The patient is oriented to person, place and time. The patient is not psychotic, delusional, suicidal, homicidal or hallucinating. The patient demonstrates a normal mental capacity to make decisions regarding their healthcare. The patient is clinically sober and does not appear to be under the influence of any illicit drugs at this time. The patient has been advised of the risks, in layman terms, of leaving AMA which include, but are not limited to: cardiac arrest, severe infection, dehydration, bleeding, liver failure, electrolyte and metabolic derangements, myocardial infarction, life threatening arrhythmia, stroke, respiratory failure, delay in diagnosis and management, loss of current lifestyle, loss of functional status, multiorgan failure, coma, severe disability and . Alternatives have been offered - the patient remains steadfast in their wish to leave. The patient has been advised that should they change their mind they are welcome to return to this hospital, or any other, at any time. The patient understands that in no way does an AMA discharge mean that I do not want them to have the best medical care available. To this end, I have provided appropriate prescriptions, referrals, and discharge instructions. The patient did/ sign AMA paperwork. The above discussion was witnessed by another member of staff - RN Ashley Villatoro. 02/01/19 11:38 02/01/19 11:41 02/01/19 12:14 02/01/19 12:14 02/01/19 12:15 <Janet Crandall - Last Filed: 02/01/19 12:15> *DC/Admit/Observation/Transfer - Attestations Scribe Attestion: 02/01/19 10:40 Documentation prepared by Phan Barba, acting as medical unit secretary for Janet Crandall MD. <Phan Barba - Last Filed: 02/01/19 10:39> <Janet rCandall - Last Filed: 02/01/19 12:15> Diagnosis at time of Disposition: Hypoglycemia, Altered mental status, unspecified, Hyponatremia, Liver cirrhosis , alcoholic - Discharge Dispostion Disposition: AGAINST MEDICAL ADVICE Condition at time of disposition: Fair - Referrals Referrals: Ralph Cordon MD [Primary Care Provider] - Agnes Modi MD [Staff Physician] - - Patient Instructions Printed Discharge Instructions: Weight Loss, Undesired (Alternative Therapy), DI for Hypothermia, DI for Hypoglycemia, DI for Hyponatremia, DI for Cirrhosis Additional Instructions: you are choosing to Leave Against Medical advice you have been deemed competent to refuse medical care, despite the following diagnoses that prompted your ED visit: low temperature, low glucose, dehydration and low sodium, liver failure. you have been advised of the risks, of leaving Against Medical advice which include, but are not limited to cardiac arrest, severe infection, dehydration, bleeding, liver failure, myocardial infarction, arrhythmia, stroke, respiratory failure, delay in diagnosis and management, loss of current lifestyle, loss of functional status, multiorgan failure, coma, severe disability and . Alternatives have been offered which was an admission for further treatment- If worsening symptoms, you can call 911 or come back to the Emergency Department for further evaluation. worsening symptoms may include the following: fevers, hypothermia, headache, vomiting, visual or hearing disturbances, abdominal pain, chest pain, shortness of breath, syncope, dehydration, inability to take things by mouth/vomiting, altered mental status, lethargy or worsening concerning symptoms. please follow up with primary care physician in 1-2 days. - Post Discharge Activity
[2019-02-01] MEDS ORDERED: DEXTROSE 5%-NORMAL SALINE 1,000 ML IV SCH (09:30)
[2019-02-01] MEDS ORDERED: SODIUM CHLORIDE 0.9% 500 ML INFUS.BAG IV ONE ×2 (10:21→10:33)
[2019-02-01 10:46] LABS: BASO % 0.1 % (0-2.0); EOS % 0.1 % (0-4.5); HEMATOCRIT 29.2 % (32.4-45.2); HEMOGLOBIN 9.9 GM/dL (10.7-15.3); LYMPH % 6.1 % (8-40); MCH 31.1 pg (25.7-33.7); MEAN CELL VOLUME 91.4 fl (80-96); MEAN PLT VOLUME 7.2 fl (7.5-11.1); NEUT % 90.7 % (42.8-82.8); PLATELET COUNT 177 K/MM3 (134-434); RDW 13.9 % (11.6-15.6); WHITE BLOOD COUNT 5.7 K/mm3 (4.0-10.0)
[2019-02-01 10:56] VITALS: TEMP 95
[2019-02-01 10:58] LABS: INR 1.74 (0.83-1.09); PROTHROMBIN TIME (PATIENT) 20.6 SEC (9.7-13.0)
[2019-02-01 11:15] LABS: ALK PHOS 192 U/L (45-117); ANION GAP 7 MMOL/L (8-16); BILIRUBIN,TOTAL 0.8 mg/dL (0.2-1); BLOOD UREA NITROGEN 36 mg/dL (7-18); CHLORIDE 95 mmol/L (98-107); CO2 23 mmol/L (21-32); CREATININE 0.8 mg/dL (0.55-1.3); POTASSIUM 3.9 mmol/L (3.5-5.1); SGOT/AST 801 U/L (15-37); SGPT/ALT 258 U/L (13-61); SODIUM 125 mmol/L (136-145); TOT PROT 6.1 g/dl (6.4-8.2)
[2019-02-01 11:16] LABS: GLUCOSE,RANDOM 515 mg/dL (74-106)
[2019-02-01 12:10] VITALS: BP 106/74; PULSE 54
--- NOTE | 2019-02-02 10:10 | EKG ---
Test Reason : Blood Pressure : / mmHG Vent. Rate : 038 BPM Atrial Rate : 038 BPM P-R Int : 144 ms QRS Dur : 062 ms QT Int : 510 ms P-R-T Axes : 087 086 -69 degrees QTc Int : 405 ms POOR DATA QUALITY, INTERPRETATION MAY BE ADVERSELY AFFECTED MARKED SINUS BRADYCARDIA SEPTAL INFARCT , AGE UNDETERMINED ABNORMAL ECG WHEN COMPARED WITH ECG OF 19-MAR-2017 17:59, SIGNIFICANT CHANGES HAVE OCCURRED Confirmed by KALI TAVERAS, JULIA ([id number]) on 02/02/2019 10:10:38 AM Referred By: Confirmed By:JULIA BASS MD
== END 2019-02-01 12:20 | disposition left against medical advice (07) ==
LOC: JER 09:03
PROC: 3E0337Z Introduction of Electrolytic and Water Balance Substance into Peripheral Vein, Percutaneous Approach (ICD-10-PCS; principal; 2019-02-01)
PROC: 3E0337Z Introduction of Electrolytic and Water Balance Substance into Peripheral Vein, Percutaneous Approach (ICD-10-PCS; 2019-02-01)
DX: E16.2 Hypoglycemia, unspecified (principal); E87.1 Hypo-osmolality and hyponatremia; K70.30 Alcoholic cirrhosis of liver without ascites; F10.10 Alcohol abuse, uncomplicated; F17.210 Nicotine dependence, cigarettes, uncomplicated; I10 Essential (primary) hypertension; K21.9 Gastro-esophageal reflux disease without esophagitis; L40.9 Psoriasis, unspecified
CPT/HCPCS: 36415; 80053; 82140; 82550; 82962; 83605; 84484; 84703; 85025; 85610; 93005; 93010; 96361; 96374; 99283-25

== ENCOUNTER 2020-06-26 17:39 | Emergency (ER) | payer OTHER ==
--- NOTE | 2020-06-26 17:44 | PDOC ---
Rapid Medical Evaluation Time Seen by Provider: 06/26/20 17:41 Medical Evaluation: Allergies Allergy/AdvReac Type Severity Reaction Status Date / Time No Known Allergies Allergy Verified 03/19/17 15:36 06/26/20 17:41 34 year old female pmhx of anorexia complaining of lower abdominal pain with associated nausea HIGH RISK FOR REFEEDING SYNDROME PE: Severely malnourished TTP to lower abdomen A/P: Labs and electrolytes UA NS Pt to precede to ED for further evaluation and treatment.
[2020-06-26 17:48] VITALS: BP 98/74; TEMP 98.4; BMI 22.0
[2020-06-26 19:06] VITALS: PULSE 100
--- NOTE | 2020-06-26 19:20 | PDOC ---
Attending Attestation - Resident Resident Name: Ellis Martinez - ED Attending Attestation I have performed the following: I have examined & evaluated the patient, The case was reviewed & discussed with the resident, I agree w/resident's findings & plan - HPI HPI: 06/26/20 20:53 see resident hpi - Physicial Exam PE: 06/26/20 20:54 see resident exam - Critical Care Time Total Critical Care Time: 90 Critical Care Statement: The care of this patient involved high complexity decision making to prevent further life threatening deterioration of the patient's condition and/or to evaluate & treat vital organ system(s) failure or risk of failure. - Medical Decision Making 06/26/20 20:54 34-year-old female, cachectic in appearance with steady decline in weight over several years now with right-sided abdominal pain We will proceed with CT scan of the abdomen and pelvis, chest x-ray Labs including sepsis evaluation Due to patient's physical condition will plan for admission pending results 06/26/20 23:31 Patient now states she has an emergency at home, she is refusing further care including CAT scan We will DC on antibiotics with strong recommendations to return should she reconsider or follow-up promptly with her primary care physician She was advised that by refusing care she is at risk for complications including but not limited to permanent disability or Patient is alert and oriented x4 and is able to understand instructions, there is no criteria to hold patient against her well at this time. Discharge - Discharge Information Problems reviewed: Yes Clinical Impression/Diagnosis: Abdominal pain, Cachexia, Sepsis UTI (urinary tract infection) Qualifiers: Urinary tract infection type: site unspecified Hematuria presence: without hematuria Qualified Code(s): N39.0 - Urinary tract infection, site not specified Condition: Fair Disposition: AGAINST MEDICAL ADVICE - Additional Discharge Information Prescriptions: Sulfamethoxazole/Trimethoprim [Bactrim Ds -] 1 tab PO BID #14 tablet - Follow up/Referral Referrals: Ralph Cordon MD [Primary Care Provider] - - Patient Discharge Instructions Additional Instructions: You are leaving against medical advise. You have a urinary tract infection. We recommended admission to get antibiotics through the IV. Since you are not staying in the hospital, I sent a prescription for an antibiotic for you to take, take is as directed. Stay well hydrated! Come back to the ER immediately if you feel lightheaded, get fevers, are vomiting, or if any new or concerning symptom develops. Thank you - Post Discharge Activity
--- NOTE | 2020-06-26 20:05 | PDOC ---
History of Present Illness - General Chief Complaint: Pain, Acute Stated Complaint: PELVIC PAIN Time Seen by Provider: 06/26/20 17:41 History Source: Patient - History of Present Illness Initial Comments: 06/26/20 20:04 34yo F with PMH of cachexia (presumed anorexia nervosa, but patient denies it), ETOH abuse complicated by ascites (resolved, and patient reports sobriety), cirrhosis, HTN, GERD, psoriasis, asthma, presenting with suprapubic pain for two days. Patient states it is two types of pain. She has a "muscle" pain that is constant, and an intermittent "gas" pain. She passes gas, but this does not relieve the pain. No exacerbating or relieving factors, no radiation. Mild nausea with the pain, but no vomiting, diarrhea, constipation, or urinary symptoms. No fever or chills. Has not had a period for 5-6 years and is not sexually active. States her urine smelled "sweet" for several months, but this went away when she was recently given antibiotics for a dental issue. PMH/PSH: as above Meds: symbicort Allergies: none PCP: Ralph MARSHALL GENERAL/CONSTITUTIONAL: No fever or chills. No weakness. HEAD, EYES, EARS, NOSE AND THROAT: No change in vision. No ear pain or discharge. No sore throat. CARDIOVASCULAR: No chest pain or shortness of breath RESPIRATORY: No cough, wheezing, or hemoptysis. GASTROINTESTINAL:abdominal pain, nausea. No vomiting, diarrhea or constipation. GENITOURINARY: No dysuria, frequency, or change in urination. MUSCULOSKELETAL: No joint or muscle swelling or pain. No neck or back pain. SKIN: No rash NEUROLOGIC: No headache, vertigo, loss of consciousness, or change in strength/sensation. ENDOCRINE: No increased thirst. No abnormal weight change HEMATOLOGIC/LYMPHATIC: No anemia, easy bleeding, or history of blood clots. ALLERGIC/IMMUNOLOGIC: No hives or skin allergy. PE GENERAL: Awake, alert, and fully oriented, in no acute distress. cachectic HEAD: No signs of trauma, normocephalic, atraumatic EYES: PERRLA, EOMI, sclera anicteric, conjunctiva clear ENT: Auricles normal inspection, hearing grossly normal, nares patent, oropharynx clear without exudates. Moist mucosa. poor dentition NECK: Normal ROM, supple, no lymphadenopathy, JVD, or masses LUNGS: No distress, speaks full sentences, clear to auscultation bilaterally HEART: Regular rate and rhythm, normal S1 and S2, no murmurs, rubs or gallops, peripheral pulses normal and equal bilaterally. ABDOMEN: Soft, suprapubic tenderness, normoactive bowel sounds. No guarding, no rebound. No masses EXTREMITIES : Normal inspection, Normal range of motion, no edema. No clubbing or cyanosis. NEUROLOGICAL: Cranial nerves II through XII grossly intact. Normal speech, no focal sensorimotor deficits SKIN: Warm, Dry, normal turgor, no rashes or lesions noted Vital Signs Temp Pulse Resp BP Pulse Ox 98.4 F 100 H 20 98/74 98 06/26/20 17:44 06/26/20 18:06 06/26/20 17:44 06/26/20 17:44 06/26/20 18:06 MDM 34yo F with PMH of cachexia (presumed anorexia nervosa, but patient denies it), ETOH abuse complicated by ascites (resolved, and patient reports sobriety), cirrhosis, HTN, GERD, psoriasis, asthma, presenting with suprapubic pain for two days. Physical exam notable for suprapubic tenderness. Patient denies having an eating disorder and is dissatisfied with the workup for her cachexia. Per our records and the patient's recollection, she had a CT in 2017, but no endoscopy or colonoscopy. 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 -EKG -CBC, CMP, lipase, coags, UA -CT A/P with oral and IV contrast 06/26/20 20:31 Labs notable for WBC 13.4 with neutrophil 95.6%, Hb 8.2, INR 1.81, BUN/Cr 28.2/0.5, and UA: turbid, 1+ protein, 2+ blood, positive nitrites, 2+ leukocyte esterase, WBC 591, RBC 35, 8 casts, 20 epithelial cells Dispo: admit at least for failure to thrive, UTI. Signed out to night team. Sent add on serum preg so she can get CT. Pending CT A/P. Past History - Medical History Allergies/Adverse Reactions: Allergies Allergy/AdvReac Type Severity Reaction Status Date / Time No Known Allergies Allergy Verified 08/25/20 17:43 Home Medications: Ambulatory Orders Cephalexin 250 mg PO Q6H 03/21/17 Amoxicillin/Potassium Clav [Augmentin 875-125 Tablet] 1 each PO BID #20 tablet 03/29/17 Spironolactone [Aldactone -] 25 mg PO DAILY #30 tablet 03/29/17 Sulfamethoxazole/Trimethoprim [Bactrim Ds -] 1 tab PO BID #14 tablet 06/26/20 COPD: No GI Disorders: Yes (ACID REFLUX.) Disorders: Yes HTN: Yes Liver Disease: Yes (ELEVATED LIVER ENZYMES.) - Reproductive History Is Patient Now?: No - Immunization History Immunization Up to Date: Yes - Psycho-Social/Smoking History Smoking History: Never smoked Have you smoked in the past 12 months: Yes Number of Cigarettes Smoked Daily: 5 - Substance Abuse Hx (Audit-C & DAST Scrn) How often the patient has a drink containing alcohol: Never Score: In Men: 4 or > Positive; In Women: 3 or > Positive: 0 Screen Result (Pos requires Nsg. Audit-10AR): Negative In the last yr the pt used illegal drug/Rx for NonMed reason: No Score: Yes response is considered Positive: 0 Screen Result (Positive result requires Nsg. DAST-10): Negative *Physical Exam - Vital Signs Last Vital Signs Temp Pulse Resp BP Pulse Ox 98.4 F 100 H 20 98/74 98 06/26/20 17:44 06/26/20 18:06 06/26/20 17:44 06/26/20 17:44 06/26/20 18:06 ED Treatment Course - LABORATORY CBC & Chemistry Diagram: 06/26/20 19:41 06/26/20 19:41 - RADIOLOGY Radiology Studies Ordered: Category Date Time Status ABDOMEN & PELVIS CT WITH CONTR [CT] Stat CT Scan 06/26/20 19:29 Ordered Discharge - Discharge Information Problems reviewed: Yes Clinical Impression/Diagnosis: Abdominal pain, Cachexia, Sepsis UTI (urinary tract infection) Qualifiers: Urinary tract infection type: site unspecified Hematuria presence: without hematuria Qualified Code(s): N39.0 - Urinary tract infection, site not specified Condition: Fair Disposition: AGAINST MEDICAL ADVICE - Additional Discharge Information Prescriptions: Sulfamethoxazole/Trimethoprim [Bactrim Ds -] 1 tab PO BID #14 tablet - Follow up/Referral Referrals: Ralph Cordon MD [Primary Care Provider] - - Patient Discharge Instructions Additional Instructions: You are leaving against medical advise. You have a urinary tract infection. We recommended admission to get antibiotics through the IV. Since you are not staying in the hospital, I sent a prescription for an antibiotic for you to take, take is as directed. Stay well hydrated! Come back to the ER immediately if you feel lightheaded, get fevers, are vomiting, or if any new or concerning symptom develops. Thank you - Post Discharge Activity
[2020-06-26 20:10] LABS: BASO % 0.2 % (0-2.0); EOS % 0.1 % (0-4.5); HEMATOCRIT 25.4 % (32.4-45.2); HEMOGLOBIN 8.2 GM/dL (10.7-15.3); LYMPH % 2.6 % (8-40); MCHC 32.3 g/dl (32.0-36.0); MEAN CELL VOLUME 89.9 fl (80-96); MEAN PLT VOLUME 7.1 fl (7.5-11.1); MONO % 1.5 % (3.8-10.2); NEUT % 95.6 % (42.8-82.8); PLATELET COUNT 231 K/MM3 (134-434); RBC 2.83 M/mm3 (3.60-5.2); RDW 14.4 % (11.6-15.6); WHITE BLOOD COUNT 13.4 K/mm3 (4.0-10.0)
[2020-06-26 20:19] LABS: INR 1.81 (0.83-1.09); PROTHROMBIN TIME (PATIENT) 21.5 SEC (9.7-13.0)
[2020-06-26 20:20] LABS: EPI CELLS 20 /uL (0-25.1); HYALINE CASTS 8 /uL (0-3.1); PH,URINE 8.5 (5.0-8.0); URINE APPEARANCE TURBID; URINE BILIRUBIN NEGATIVE (NEGATIVE); URINE GLUCOSE (UA) NEGATIVE (NEGATIVE); URINE KETONE NEGATIVE (NEGATIVE); URINE LEUK ESTERASE 2+ (NEGATIVE); URINE NITRITE POSITIVE (NEGATIVE); URINE PROTEIN 1+ (NEGATIVE); URINE RBC 35 /uL (0-23.9); URINE WBC 591 /uL (0-25.8)
[2020-06-26 20:22] LABS: ACTIVATED PTT 37.6 SECONDS (25.2-36.5)
[2020-06-26 20:35] LABS: MAGNESIUM 1.6 mg/dL (1.8-2.4); PHOSPHOROUS 3.2 mg/dL (2.5-4.9)
[2020-06-26 20:45] LABS: ALBUMIN 1.8 g/dl (3.4-5.0); ALK PHOS 109 U/L (45-117); ANION GAP 6 MMOL/L (8-16); BILIRUBIN,TOTAL 0.3 mg/dL (0.2-1); BLOOD UREA NITROGEN 28.2 mg/dL (7-18); CALCIUM 7.7 mg/dL (8.5-10.1); CHLORIDE 103 mmol/L (98-107); CO2 28 mmol/L (21-32); CREATININE 0.5 mg/dL (0.55-1.3); GLUCOSE,RANDOM 64 mg/dL (74-106); LIPASE 24 U/L (73-393); N-TERMINAL BNP 1990.8 pg/ml (5-125); POTASSIUM 4.5 mmol/L (3.5-5.1); SGOT/AST 36 U/L (15-37); SGPT/ALT 17 U/L (13-61); SODIUM 138 mmol/L (136-145); TOT PROT 6.8 g/dl (6.4-8.2)
[2020-06-26] MEDS ORDERED: SODIUM CHLORIDE 1,000 ML IV STA (22:57)
--- NOTE | 2020-06-26 23:21 | PDOC ---
*Physical Exam - Vital Signs Last Vital Signs Temp Pulse Resp BP Pulse Ox 98.4 F 100 H 20 98/74 98 06/26/20 17:44 06/26/20 18:06 06/26/20 17:44 06/26/20 17:44 06/26/20 18:06 ED Treatment Course - LABORATORY CBC & Chemistry Diagram: 06/26/20 19:41 06/26/20 19:41 - ADDITIONAL ORDERS Additional order review: Laboratory Results 06/26/20 06/26/20 06/26/20 21:30 19:45 19:41 PT with INR INR PTT (Actin FS) Sodium Potassium Chloride Carbon Dioxide Anion Gap BUN Creatinine Est GFR (CKD-EPI)AfAm Est GFR (CKD-EPI)NonAf Random Glucose Lactic Acid 2.2 H* Calcium Phosphorus Magnesium Total Bilirubin AST ALT Alkaline Phosphatase Creatine Kinase Troponin I B-Natriuretic Peptide Total Protein Albumin Lipase TSH Serum , Qual Negative Urine Color Yellow Urine Appearance Turbid Urine pH 8.5 H D Ur Specific [place] 1.020 Urine Protein 1+ H Urine Glucose (UA) Negative Urine Ketones Negative Urine Blood 2+ H Urine Nitrite Positive H Urine Bilirubin Negative Urine Urobilinogen 1.0 Ur Leukocyte Esterase 2+ H Urine WBC (Auto) 591 Urine RBC (Auto) 35 Urine Casts (Auto) 8 U Epithel Cells (Auto) 06/26/20 06/26/20 06/26/20 19:41 19:41 19:41 PT with INR 21.50 H INR 1.81 H PTT (Actin FS) 37.6 H Sodium 138 Potassium 4.5 Chloride 103 Carbon Dioxide 28 Anion Gap 6 L BUN 28.2 H Creatinine 0.5 L Est GFR (CKD-EPI)AfAm 146.35 Est GFR (CKD-EPI)NonAf 126.27 Random Glucose 64 L Lactic Acid Calcium 7.7 L Phosphorus 3.2 Magnesium 1.6 L Total Bilirubin 0.3 AST 36 ALT 17 Alkaline Phosphatase 109 Creatine Kinase 35 Troponin I < 0.02 B-Natriuretic Peptide 1990.8 H Total Protein 6.8 Albumin 1.8 L Lipase 24 L TSH 3.73 Serum , Qual Urine Color Urine Appearance Urine pH Ur Specific [place] Urine Protein Urine Glucose (UA) Urine Ketones Urine Blood Urine Nitrite Urine Bilirubin Urine Urobilinogen Ur Leukocyte Esterase Urine WBC (Auto) Urine RBC (Auto) Urine Casts (Auto) U Epithel Cells (Auto) 06/26/20 19:41 RBC 2.83 L MCV 89.9 MCHC 32.3 RDW 14.4 MPV 7.1 L Neutrophils % 95.6 H Lymphocytes % 2.6 L D Monocytes % 1.5 L Eosinophils % 0.1 Basophils % 0.2 - RADIOLOGY Radiology Studies Ordered: Category Date Time Status CXRPORT [CHEST X-RAY PORTABLE*] [RAD] Stat Radiology 06/26/20 20:53 Taken Medical Decision Making - Medical Decision Making 06/27/20 04:34 pt presenting for lower abdominal pain which feels like gas. rlq tenderness on exam. labs show white count 13, normocytic anemia. chem wnl, lactic 2.2. -fluids ordered UA positive for infection. pt could have cystitis, pyelonephritis. CT pending. will admit for iv abx, failure to thrive. pt stated that she had an emergency at home and wanted to sign out AMA. pt has capacity to make decisions. Pt was told reasons for admission and why it would benefit her. Leaving hospital could result in worsening infection, disability and/or . pt verbalized understanding of risks and stated that she wanted to go home. Says she has doctor appointments she does not want to miss and says she will f/u with her doctors. pt given dose of bactrim here in ER and script sent. Pt advised to return to ED immediately if symptoms worsen. Discharge - Discharge Information Problems reviewed: Yes Clinical Impression/Diagnosis: Abdominal pain, Cachexia, Sepsis UTI (urinary tract infection) Qualifiers: Urinary tract infection type: site unspecified Hematuria presence: without hematuria Qualified Code(s): N39.0 - Urinary tract infection, site not specified Condition: Fair Disposition: AGAINST MEDICAL ADVICE - Additional Discharge Information Prescriptions: Sulfamethoxazole/Trimethoprim [Bactrim Ds -] 1 tab PO BID #14 tablet - Follow up/Referral Referrals: Ralph Cordon MD [Primary Care Provider] - - Patient Discharge Instructions Additional Instructions: You are leaving against medical advise. You have a urinary tract infection. We recommended admission to get antibiotics through the IV. Since you are not staying in the hospital, I sent a prescription for an antibiotic for you to take, take is as directed. Stay well hydrated! Come back to the ER immediately if you feel lightheaded, get fevers, are vomit ing, or if any new or concerning symptom develops. Thank you - Post Discharge Activity
[2020-06-26] MEDS ORDERED: SULFAMETHOXAZOLE/TRIMETHOPRIM 800MG/160MG D.S. TABLET PO ONE (23:25)
[2020-06-26] MEDS ORDERED: SULFAMETHOXAZOLE/TRIMETHOPRIM 800MG/160MG D.S. TABLET ONE (23:32)
[2020-06-26 23:37] LABS: PLATELET ESTIMATE NORMAL
[2020-06-27 00:51] LABS: URINE BACTERIA 1200 /uL (0-1359); URINE COLOR YELLOW
== END 2020-06-27 01:18 | disposition left against medical advice (07) ==
LOC: JER 17:39
PROC: 3E0337Z Introduction of Electrolytic and Water Balance Substance into Peripheral Vein, Percutaneous Approach (ICD-10-PCS; principal; 2020-06-26)
DX: N39.0 Urinary tract infection, site not specified (principal)
CPT/HCPCS: 36415; 71045-TC-FY; 80053; 81003; 82550; 83605; 83690; 83735; 83880; 84100; 84443; 84484; 84703; 85025; 85610; 85730; 87040; 87086; 99291; 99292

== ENCOUNTER 2020-07-01 14:10 | Inpatient (IN) | payer OTHER ==
[2020-07-01] MEDS ORDERED: SODIUM CHLORIDE 1,000 ML IV STA (14:38)
--- NOTE | 2020-07-01 14:44 | PDOC ---
Attending Attestation - Resident Resident Name: John Quijano - ED Attending Attestation I have performed the following: I have examined & evaluated the patient, The case was reviewed & discussed with the resident, I agree w/resident's findings & plan, Exceptions are as noted - HPI HPI: 34 yo F history cachexia, EtOH abuse, heroin abuse, cirrhosis, HTN, GERD, psoriasis, asthma presents with AMS, found to have hypoglycemia with BGM of 34 by EMS. Pt was recently evaluated in this ED, found to have a UTI, signed out AMA. Unclear if she is taking abx, poor historian. Patient appears frail, limited verbal communication. - Physicial Exam PE: GENERAL: Awake, alert. Cachectic with temporal wasting. Appears frail and chronically ill. HEAD: No signs of trauma EYES: PERRLA, EOMI, sclera anicteric, conjunctiva clear ENT: Auricles normal inspection, hearing grossly normal, nares patent, oropharynx clear without exudates. Dry mucosa NECK: Normal ROM, supple, no lymphadenopathy, JVD, or masses LUNGS: Breath sounds equal, clear to auscultation bilaterally. No wheezes, and no crackles HEART: Regular rate and rhythm, normal S1 and S2, no murmurs, rubs or gallops ABDOMEN: Soft, nontender, normoactive bowel sounds. No guarding, no rebound. No masses EXTREMITIES: Normal range of motion, no edema. No clubbing or cyanosis. No cords, erythema, or tenderness NEUROLOGICAL: Cranial nerves II through XII grossly intact. Normal speech. Motor and sensation intact SKIN: Warm, dry, normal turgor, no rashes or lesions noted. - Medical Decision Making Pt with poor insight- stating she eats all day but continues to lose weight, but has clear signs of an eating disorder (tooth enamel is significantly worn down, lab abnormalities). Presents with sepsis and hypoglycemia, likely due to UTI and poor PO intake. Sepsis protocol initiated. Pt placed on D5LR for the hypoglycemia. Await labs and imaging, plan for ICU admission. Discharge - Discharge Information Problems reviewed: Yes Clinical Impression/Diagnosis: Hypoglycemia, At risk for electrolyte imbalance, Bowel obstruction, Pneumonia Sepsis Qualifiers: Sepsis type: sepsis due to unspecified organism Sepsis acute organ dysfunction status: unspecified Qualified Code(s): A41.9 - Sepsis, unspecified organism UTI (urinary tract infection) Qualifiers: Urinary tract infection type: site unspecified Hematuria presence: with hematuria Qualified Code(s): N39.0 - Urinary tract infection, site not specified Syncope Qualifiers: Syncope type: unspecified Qualified Code(s): R55 - Syncope and collapse Condition: Guarded - Follow up/Referral - Patient Discharge Instructions - Post Discharge Activity
[2020-07-01] MEDS ORDERED: DEXTROSE 5%-LACTATED RINGERS 1,000 ML IV SCH (14:45)
--- NOTE | 2020-07-01 14:45 | PDOC ---
History of Present Illness - General Chief Complaint: Blood Sugar Problem Stated Complaint: BLOOD SUGAR PROBLEM Time Seen by Provider: 07/01/20 14:42 History Source: Patient Exam Limitations: No Limitations - History of Present Illness Initial Comments: 07/01/20 14:43 PCP: Ralph Cordon GI: Isa HPI: 34 yo F pmh cachexia (bulimia vs anorexia vs mixed picture), ETOH abuse, heroin abuse, cirrhosis, HTN, GERD, psoriasis / psoriatic arthritis, asthma, presenting after episode of passing out with hypoglycemia at home. Patient BIBEMS with hypoglycemia, hypotension, hypoxia, hyperthermia. Reports she was seen here several days ago, diagnosed with UTI before leaving A with an tibiotics. Endorses generalized weakness and continued "gas pains" since last visit that do not improve with flatus. Denies chest pain, SOB, cough, fevers, nausea, vomiting, diarrhea, constipation, or urinary symptoms. Adamantly denies that she has an eating disorder, says something is wrong with her but no one can figure out what. Previously seen by psychiatry, noted at that time to hav extremely poor insight and judgment. Has not had a period for 5-6 years and is not sexually active. PMH/PSH: as above Meds: symbicort Allergies: none Past History - Travel History Traveled outside of the country in the last 30 days: No Close contact w/someone who was outside of country & ill: No - Medical History Allergies/Adverse Reactions: Allergies Allergy/AdvReac Type Severity Reaction Status Date / Time No Known Allergies Allergy Verified 07/01/20 14:36 Home Medications: Ambulatory Orders Sulfamethoxazole/Trimethoprim [Bactrim Ds -] 1 tab PO BID #14 tablet 06/26/20 COPD: No GI Disorders: Yes (ACID REFLUX.) Disorders: Yes HTN: Yes Liver Disease: Yes (ELEVATED LIVER ENZYMES.) - Reproductive History Is Patient Now?: No - Immunization History Immunization Up to Date: Yes - Psycho-Social/Smoking History Smoking History: Current every day smoker Have you smoked in the past 12 months: Yes Number of Cigarettes Smoked Daily: 3 Information on smoking cessation initiated: No - Substance Abuse Hx (Audit-C & DAST Scrn) How often the patient has a drink containing alcohol: Never Score: In Men: 4 or > Positive; In Women: 3 or > Positive: 0 Screen Result (Pos requires Nsg. Audit-10AR): Negative In the last yr the pt used illegal drug/Rx for NonMed reason: No Score: Yes response is considered Positive: 0 Screen Result (Positive result requires Nsg. DAST-10): Negative Review of Systems - Review of Systems Able to Perform ROS?: Yes Is the patient limited Croatian proficient: Yes Constitutional: Yes: Weakness. No: Chills, Fever HEENTM: No: Recent change in vision, Nose Congestion, Throat Pain Respiratory: No: Cough, Shortness of Breath, Wheezing Cardiac (ROS): No: Chest Pain, Edema, Irregular Heart Rate, Chest Tightness ABD/GI: Yes: See HPI. No: Abdominal Distended, Constipated, Diarrhea, Nausea, Vomiting : No: Burning, Dysuria, Frequency Musculoskeletal: No: Muscle Pain, Muscle Weakness, Neck Pain Integumentary: No: Bruising, Pruritus, Rash Neurological: No: Headache, Numbness, Tingling, Weakness Psychiatric: No: Stressors, Change in Appetite Endocrine: No: Increased Thirst, Increased Urine Hematologic/Lymphatic: No: Anemia, Blood Clots, Easy Bleeding All Other Systems: Reviewed and Negative *Physical Exam - Vital Signs Last Vital Signs Temp Pulse Resp BP Pulse Ox 92.4 F L 78 18 84/57 L 88 L 07/01/20 14:33 07/01/20 14:33 07/01/20 14:33 07/01/20 14:33 07/01/20 14:33 - Physical Exam 07/01/20 14:43 Vitals reviewed, hypotensive, hypothermic, hypoglycemic, hypoxic GEN: Cachectic, severely malnourished, poor dentition with profuse enamal e rosions, appears significantly older than stated age. HEENT: NCAT, EOMI, PERRL. Sclera anicteric, non-injected. No facial asymmetry. Moist mucous membranes. Faint voice. Thin wispy hair. CV: RRR, S1/S2, no murmurs / rubs / gallops appreciated. LUNG: CTABL, normal work of breathing. No wheezes, rales, rhonchi. No cough. Speaking full sentences. Desaturation with speaking. GI: Soft, Non-distended, TTP suprapubically, +BS, no guarding, no rebound. No masses. EXTREMITIES: 2+ distal pulses. No clubbing / cyanosis / edema. Extremely frail. No gross deformity in any extremity. SKIN: Warm, dry, no rashes appreciated, non-jaundiced. PSYCH: Poor insight and judgment, flat affect. NEURO: CN grossly intact. Moving all extremities well. Normal strength and sensation grossly. ED Treatment Course - LABORATORY CBC & Chemistry Diagram: 07/01/20 15:00 07/01/20 17:00 - ADDITIONAL ORDERS Additional order review: Laboratory Results 07/01/20 14:28 POC Glucometer 140 07/01/20 14:28 POC Glucometer 140 Medical Decision Making - Medical Decision Making 07/01/20 14:44 34 yo F pmh cachexia (bulimia vs anorexia vs mixed picture), ETOH abuse, heroin abuse, cirrhosis, HTN, GERD, psoriasis / psoriatic arthritis, asthma, presenting after episode of passing out with hypoglycemia at home. History concerning for most likely eating disorder, unstable vitals today with hypoglycemia, hypoxia, hypothermia, hypotension. Exam notable for severe malnutrition, cachectic as described above, suprapubic tenderness to palpation. DDX: Sepsis (recent UTI) vs end stage eating disorder / FTT vs electolyte abnormalities vs PNA (poor saturation) vs COVID-19. - Sepsis order set - Fluid Resus - COVID-19, hypoxic with improvement on NRB - Replete electrolytes as indicated - Warm blankets, Marvin Hugger as needed 07/01/20 17:35 - Repeat BMP ordered for suspected hemolysis - Patient endorsed to Dr. Modi for telemetry admission - Required telemetry for ?syncope, electrolyte abnormalities and high risk for dysrhythmias Admit Tele Discharge - Discharge Information Problems reviewed: Yes Clinical Impression/Diagnosis: Hypoglycemia, At risk for electrolyte imbalance Sepsis Qualifiers: Sepsis type: sepsis due to unspecified organism Sepsis acute organ dysfunction status: unspecified Qualified Code(s): A41.9 - Sepsis, unspecified organism UTI (urinary tract infection) Qualifiers: Urinary tract infection type: site unspecified Hematuria presence: with hematuria Qualified Code(s): N39.0 - Urinary tract infection, site not specified; R31.9 - Hematuria, unspecified Syncope Qualifiers: Syncope type: unspecified Qualified Code(s): R55 - Syncope and collapse Condition: Guarded - Follow up/Referral - Patient Discharge Instructions - Post Discharge Activity
[2020-07-01 15:19] LABS: BASO % 0.2 % (0-2.0); EOS % 0.4 % (0-4.5); HEMATOCRIT 27.6 % (32.4-45.2); HEMOGLOBIN 9.2 GM/dL (10.7-15.3); LYMPH % 1.4 % (8-40); MCH 28.7 pg (25.7-33.7); MCHC 33.3 g/dl (32.0-36.0); MEAN CELL VOLUME 86.3 fl (80-96); MEAN PLT VOLUME 6.7 fl (7.5-11.1); MONO % 0.2 % (3.8-10.2); NEUT % 97.8 % (42.8-82.8); PLATELET COUNT 375 K/MM3 (134-434); RDW 13.8 % (11.6-15.6); WHITE BLOOD COUNT 16.7 K/mm3 (4.0-10.0)
[2020-07-01 15:42] LABS: ANISOCYTOSIS 1+; MACROCYTOSIS 0; PLATELET ESTIMATE NORMAL
[2020-07-01 15:50] LABS: VENOUS O2 SATURATION 77.2 % (70-80); VENOUS PCO2 40.1 mmHg (38-52); VENOUS PH 7.377 (7.310-7.410)
[2020-07-01 15:56] LABS: INR 2.39 (0.83-1.09); PROTHROMBIN TIME (PATIENT) 28.5 SEC (9.7-13.0)
[2020-07-01 15:58] LABS: EPI CELLS >36 /uL (0-25.1); HYALINE CASTS 43 /uL (0-3.1); URINE APPEARANCE TURBID; URINE BACTERIA >9,000 /uL (0-1359); URINE BILIRUBIN NEGATIVE (NEGATIVE); URINE COLOR DK YELLOW; URINE GLUCOSE (UA) NEGATIVE (NEGATIVE); URINE KETONE NEGATIVE (NEGATIVE); URINE LEUK ESTERASE 3+ (NEGATIVE); URINE NITRITE NEGATIVE (NEGATIVE); URINE PROTEIN 1+ (NEGATIVE); URINE WBC 9751 /uL (0-25.8)
[2020-07-01 15:59] LABS: ACTIVATED PTT 36.1 SECONDS (25.2-36.5)
[2020-07-01 16:00] LABS: ALBUMIN 1.9 g/dl (3.4-5.0); ANION GAP 11 MMOL/L (8-16); BILIRUBIN,TOTAL 0.3 mg/dL (0.2-1); CALCIUM 7.8 mg/dL (8.5-10.1); CHLORIDE 93 mmol/L (98-107); CO2 24 mmol/L (21-32); CREATININE 0.8 mg/dL (0.55-1.3); GLUCOSE,RANDOM 85 mg/dL (74-106); MAGNESIUM 2.2 mg/dL (1.8-2.4); PHOSPHOROUS 4.9 mg/dL (2.5-4.9); SGOT/AST 264 U/L (15-37); SGPT/ALT 105 U/L (13-61); SODIUM 128 mmol/L (136-145); TOT PROT 6.4 g/dl (6.4-8.2)
[2020-07-01 16:08] LABS: ALK PHOS 206 U/L (45-117); BLOOD UREA NITROGEN 68.6 mg/dL (7-18)
[2020-07-01] MEDS ORDERED: VANCOMYCIN 1 GM in D5W (PRE-DOCKED) 1,000 MG/250 ML IVPB ONE (16:25)
[2020-07-01] MEDS ORDERED: PIPERACILLIN/TAZOB 3.375 GM 3.375 GM in DEXTROSE 5%-WATER - 50 ML IVPB ONE (16:25)
[2020-07-01 16:34] LABS: URINE RBC 705 /uL (0-23.9); YEAST NEGATIVE (NEGATIVE)
[2020-07-01] MEDS ORDERED: VANCOMYCIN 1 GRAM (PRE-DOCKED) 1,000 MG/250 ML BAG IVPB ONE (16:52)
[2020-07-01] MEDS ORDERED: PIPERACILLIN/TAZOB 3.375 GM 3.375 GM/50 ML BAG IVPB ONE (16:52)
[2020-07-01 17:42] LABS: COCAINE, UR NEGATIVE ng/ml (CUTOFF=300); PHENCYCLIDINE,URINE NEGATIVE ng/ml (CUTOFF=25); URINE AMPHETAMINES NEGATIVE ng/ml (CUTOFF=500); URINE BARBITURATES NEGATIVE ng/ml (CUTOFF=200)
[2020-07-01 17:45] LABS: METHADONE, UR NEGATIVE ng/ml (CUTOFF=300); URINE BENZODIAZEPINES NEGATIVE ng/ml (CUTOFF=200)
[2020-07-01 17:52] LABS: OPIATES, URI POSITIVE ng/ml (CUTOFF=300)
[2020-07-01 18:10] LABS: BLOOD UREA NITROGEN 63.5 mg/dL (7-18); CALCIUM 7.4 mg/dL (8.5-10.1); CREATININE 0.8 mg/dL (0.55-1.3); POTASSIUM 5.7 mmol/L (3.5-5.1)
[2020-07-01] MEDS ORDERED: ONDANSETRON 4 MG/2 ML VIAL IVPUSH ONE (23:10)
[2020-07-02] MEDS ORDERED: LACTATED RINGERS SOLUTION 1000 ML INFUS.BAG IV ONE (01:02)
[2020-07-02 01:12] LABS: BASO % 0.2 % (0-2.0); EOS % 0.7 % (0-4.5); HEMATOCRIT 25.4 % (32.4-45.2); HEMOGLOBIN 8.5 GM/dL (10.7-15.3); LYMPH % 1.6 % (8-40); MCH 28.5 pg (25.7-33.7); MCHC 33.4 g/dl (32.0-36.0); MEAN CELL VOLUME 85.3 fl (80-96); MEAN PLT VOLUME 6.6 fl (7.5-11.1); MONO % 0.9 % (3.8-10.2); NEUT % 96.6 % (42.8-82.8); PLATELET COUNT 261 K/MM3 (134-434); RBC 2.98 M/mm3 (3.60-5.2); RDW 13.7 % (11.6-15.6); WHITE BLOOD COUNT 13.9 K/mm3 (4.0-10.0)
[2020-07-02 01:31] LABS: ALBUMIN 1.6 g/dl (3.4-5.0); BILIRUBIN,TOTAL 0.4 mg/dL (0.2-1); BLOOD UREA NITROGEN 55.6 mg/dL (7-18); CALCIUM 7.5 mg/dL (8.5-10.1); CREATININE 0.7 mg/dL (0.55-1.3); POTASSIUM 5.3 mmol/L (3.5-5.1); TOT PROT 5.5 g/dl (6.4-8.2)
--- NOTE | 2020-07-02 01:33 | CONSULT ---
Consultation: REQUESTING PROVIDER: Rian CONSULT REQUEST: We have been asked to medically evaluate this patient for ICU admission HISTORY OF PRESENT ILLNESS: This is a 34 year old female with PMH of cachexia, polysubstance abuse (ETOH, heroin), cirrhosis, HTN, psoriasis, and asthma. She presented to the ER after an episode of hypoglycemia at home, and was BIBEMS with hypoglycemia, hypotension, hypoxia, hypothermia. On admission temp 92.4, BP 84/57, SpO2 88%. Currently endorses nausea, denies chest pain, SOB, cough, fevers, vomiting, diarrhea, constipation, or urinary symptoms. Pt was last seen at [facility] on 06/26 and was found to have a UTI. She left AMA before CT:AP could be completed, and was sent a prescription for Bactrim. REVIEW OF SYSTEMS: CONSTITUTIONAL: Absent: fever, chills, diaphoresis, generalized weakness, malaise, loss of appetite, weight change HEENT: Absent: rhinorrhea, nasal congestion, throat pain, throat swelling, difficulty swallowing, mouth swelling, ear pain, eye pain, visual changes CARDIOVASCULAR: Absent: chest pain, syncope, palpitations, irregular heart rate, lightheadedness, peripheral edema RESPIRATORY: Absent: cough, shortness of breath, dyspnea with exertion, orthopnea, wheezing, stridor, hemoptysis GASTROINTESTINAL: Absent: abdominal pain, abdominal distension, nausea, vomiting, diarrhea, constipation, melena, hematochezia GENITOURINARY: Absent: dysuria, frequency, urgency, hesitancy, hematuria, flank pain, genital pain MUSCULOSKELETAL: Absent: myalgia, arthralgia, joint swelling, back pain, neck pain SKIN: Absent: rash, itching, pallor HEMATOLOGIC/IMMUNOLOGIC: Absent: easy bleeding, easy bruising, lymphadenopathy, frequent infections ENDOCRINE: Absent: unexplained weight gain, unexplained weight loss, heat intolerance, cold intolerance NEUROLOGIC: Absent: headache, focal weakness or paresthesias, dizziness, unsteady gait, seizure, mental status changes, bladder or bowel incontinence PSYCHIATRIC: Absent: anxiety, depression, suicidal or homicidal ideation, hallucinations. PHYSICAL EXAMINATION Vital Signs - 24 hr 07/01/20 07/01/20 07/01/20 14:33 16:47 17:55 Temperature 92.4 F L 93.2 F L Pulse Rate 78 Pulse Rate [ 89 70 Apical] Respiratory 18 27 H 18 Rate Blood Pressure 84/57 L Blood Pressure 96/78 90/73 [Right Arm] O2 Sat by Pulse 88 L 100 Oximetry (%) 07/01/20 07/02/20 07/02/20 21:00 01:03 01:13 Temperature 96 F L 98.1 F Pulse Rate Pulse Rate [ 88 82 Apical] Respiratory 15 15 Rate Blood Pressure Blood Pressure 105/67 85/62 L [Right Arm] O2 Sat by Pulse 98 100 100 Oximetry (%) GENERAL: Awake, alert, and fully oriented, in no acute distress. HEAD: Normal with no signs of trauma. EYES: Pupils equal, round and reactive to light, extraocular movements intact, sclera anicteric, conjunctiva clear. No lid lag. EARS, NOSE, THROAT: Ears normal, nares patent, oropharynx clear without exudates. Moist mucous membranes. NECK: Normal range of motion, supple without lymphadenopathy, JVD, or masses. LUNGS: Breath sounds equal, clear to auscultation bilaterally. No wheezes, and no crackles. No accessory muscle use. HEART: Regular rate and rhythm, normal S1 and S2 without murmur, rub or gallop. ABDOMEN: Soft, nontender, not distended, normoactive bowel sounds, no guarding, no rebound, no masses. No hepatomegaly or splenomegaly. MUSCULOSKELETAL: Normal range of motion at all joints. No bony deformities or tenderness. No CVA tenderness. UPPER EXTREMITIES: 2+ pulses, warm, well-perfused. No cyanosis. No clubbing. Cap refill <2 seconds. No peripheral edema. LOWER EXTREMITIES: 2+ pulses, warm, well-perfused. No calf tenderness. No peripheral edema. NEUROLOGICAL: Cranial nerves II-XII intact. Normal speech. Normal gait. PSYCHIATRIC: Cooperative. Good eye contact. Appropriate mood and affect. SKIN: Warm, dry, normal turgor, no rashes or lesions noted. Laboratory Results - last 24 hr 07/01/20 07/01/20 07/01/20 14:28 14:50 15:00 WBC 16.7 H RBC 3.20 L Hgb 9.2 L Hct 27.6 L MCV 86.3 MCH 28.7 MCHC 33.3 RDW 13.8 Plt Count 375 D MPV 6.7 L Absolute Neuts (auto) 16.3 H Neutrophils % 97.8 H Neutrophils % (Manual) 94.0 H Band Neutrophils % 0.0 Lymphocytes % 1.4 L D Lymphocytes % (Manual) 3.0 L Monocytes % 0.2 L D Monocytes % (Manual) 3 L D Eosinophils % 0.4 D Eosinophils % (Manual) 0.0 Basophils % 0.2 Basophils % (Manual) 0.0 Myelocytes % (Man) 0 Promyelocytes % (Man) 0 Blast Cells % (Manual) 0 Nucleated RBC % 0 Metamyelocytes 0 Hypochromia 0 Platelet Estimate Normal Polychromasia 1+ Poikilocytosis 0 Anisocytosis 1+ Microcytosis 1+ Macrocytosis 0 PT with INR INR PTT (Actin FS) VBG pH POC VBG pCO2 POC VBG pO2 VBG HCO3 VBG O2 Sat (Meet) VBG Base Excess Sodium 128 L Potassium 6.0 H Chloride 93 L Carbon Dioxide 24 Anion Gap 11 BUN 68.6 H Creatinine 0.8 Est GFR (CKD-EPI)AfAm 111.48 Est GFR (CKD-EPI)NonAf 96.19 POC Glucometer 140 Random Glucose 85 Lactic Acid Calcium 7.8 L Phosphorus 4.9 Magnesium 2.2 Total Bilirubin 0.3 AST 264 H ALT 105 H Alkaline Phosphatase 206 H Troponin I < 0.02 Total Protein 6.4 Albumin 1.9 L Serum , Qual Urine Color Urine Appearance Urine pH Ur Specific [place] Urine Protein Urine Glucose (UA) Urine Ketones Urine Blood Urine Nitrite Urine Bilirubin Urine Urobilinogen Ur Leukocyte Esterase Urine WBC (Auto) Urine RBC (Auto) Urine Casts (Auto) U Pathogenic Cast Auto U Epithel Cells (Auto) Urine Bacteria (Auto) Urine Yeast (Auto) Opiates Screen Methadone Screen Barbiturate Screen Phencyclidine Screen Ur Amphetamines Screen MDMA (Ecstasy) Screen Benzodiazepines Screen Cocaine Screen U Marijuana (THC) Screen Alcohol, Quantitative < 3 07/01/20 07/01/20 07/01/20 15:00 15:43 15:43 WBC RBC Hgb Hct MCV MCH MCHC RDW Plt Count MPV Absolute Neuts (auto) Neutrophils % Neutrophils % (Manual) Band Neutrophils % Lymphocytes % Lymphocytes % (Manual) Monocytes % Monocytes % (Manual) Eosinophils % Eosinophils % (Manual) Basophils % Basophils % (Manual) Myelocytes % (Man) Promyelocytes % (Man) Blast Cells % (Manual) Nucleated RBC % Metamyelocytes Hypochromia Platelet Estimate Polychromasia Poikilocytosis Anisocytosis Microcytosis Macrocytosis PT with INR 28.50 H INR 2.39 H PTT (Actin FS) 36.1 VBG pH 7.377 POC VBG pCO2 40.1 POC VBG pO2 42.4 VBG HCO3 23.0 VBG O2 Sat (Meet) 77.2 VBG Base Excess -2.0 Sodium Potassium Chloride Carbon Dioxide Anion Gap BUN Creatinine Est GFR (CKD-EPI)AfAm Est GFR (CKD-EPI)NonAf POC Glucometer Random Glucose Lactic Acid 3.6 H* Calcium Phosphorus Magnesium Total Bilirubin AST ALT Alkaline Phosphatase Troponin I Total Protein Albumin Serum , Qual Urine Color Urine Appearance Urine pH Ur Specific [place] Urine Protein Urine Glucose (UA) Urine Ketones Urine Blood Urine Nitrite Urine Bilirubin Urine Urobilinogen Ur Leukocyte Esterase Urine WBC (Auto) Urine RBC (Auto) Urine Casts (Auto) U Pathogenic Cast Auto U Epithel Cells (Auto) Urine Bacteria (Auto) Urine Yeast (Auto) Opiates Screen Methadone Screen Barbiturate Screen Phencyclidine Screen Ur Amphetamines Screen MDMA (Ecstasy) Screen Benzodiazepines Screen Cocaine Screen U Marijuana (THC) Screen Alcohol, Quantitative 07/01/20 07/01/20 07/01/20 15:50 17:00 17:00 WBC RBC Hgb Hct MCV MCH MCHC RDW Plt Count MPV Absolute Neuts (auto) Neutrophils % Neutrophils % (Manual) Band Neutrophils % Lymphocytes % Lymphocytes % (Manual) Monocytes % Monocytes % (Manual) Eosinophils % Eosinophils % (Manual) Basophils % Basophils % (Manual) Myelocytes % (Man) Promyelocytes % (Man) Blast Cells % (Manual) Nucleated RBC % Metamyelocytes Hypochromia Platelet Estimate Polychromasia Poikilocytosis Anisocytosis Microcytosis Macrocytosis PT with INR INR PTT (Actin FS) VBG pH POC VBG pCO2 POC VBG pO2 VBG HCO3 VBG O2 Sat (Meet) VBG Base Excess Sodium Potassium Chloride Carbon Dioxide Anion Gap BUN Creatinine Est GFR (CKD-EPI)AfAm Est GFR (CKD-EPI)NonAf POC Glucometer Random Glucose Lactic Acid Calcium Phosphorus Magnesium Total Bilirubin AST ALT Alkaline Phosphatase Troponin I Total Protein Albumin Serum , Qual Negative Urine Color Dk yellow Urine Appearance Turbid Urine pH 7.0 Ur Specific [place] 1.023 Urine Protein 1+ H Urine Glucose (UA) Negative Urine Ketones Negative Urine Blood 3+ H Urine Nitrite Negative Urine Bilirubin Negative Urine Urobilinogen 1.0 Ur Leukocyte Esterase 3+ H Urine WBC (Auto) 9751 Urine RBC (Auto) 705 Urine Casts (Auto) 43 U Pathogenic Cast Auto Negative U Epithel Cells (Auto) >36 Urine Bacteria (Auto) >9,000 Urine Yeast (Auto) Negative Opiates Screen Positive A* Methadone Screen Negative Barbiturate Screen Negative Phencyclidine Screen Negative Ur Amphetamines Screen Negative MDMA (Ecstasy) Screen Negative Benzodiazepines Screen Negative Cocaine Screen Negative U Marijuana (THC) Screen Negative Alcohol, Quantitative 07/01/20 07/01/20 07/02/20 17:00 17:00 00:54 WBC 13.9 H RBC 2.98 L Hgb 8.5 L Hct 25.4 L MCV 85.3 MCH 28.5 MCHC 33.4 RDW 13.7 Plt Count 261 D MPV 6.6 L Absolute Neuts (auto) 13.5 H Neutrophils % 96.6 H Neutrophils % (Manual) Band Neutrophils % Lymphocytes % 1.6 L Lymphocytes % (Manual) Monocytes % 0.9 L D Monocytes % (Manual) Eosinophils % 0.7 Eosinophils % (Manual) Basophils % 0.2 Basophils % (Manual) Myelocytes % (Man) Promyelocytes % (Man) Blast Cells % (Manual) Nucleated RBC % 0 Metamyelocytes Hypochromia Platelet Estimate Polychromasia Poikilocytosis Anisocytosis Microcytosis Macrocytosis PT with INR INR PTT (Actin FS) VBG pH POC VBG pCO2 POC VBG pO2 VBG HCO3 VBG O2 Sat (Meet) VBG Base Excess Sodium 127 L Potassium 5.7 H Chloride 92 L Carbon Dioxide 22 Anion Gap 13 BUN 63.5 H Creatinine 0.8 Est GFR (CKD-EPI)AfAm 111.48 Est GFR (CKD-EPI)NonAf 96.19 POC Glucometer Random Glucose 230 H Lactic Acid 5.9 H* Calcium 7.4 L Phosphorus Magnesium Total Bilirubin AST ALT Alkaline Phosphatase Troponin I Total Protein Albumin Serum , Qual Urine Color Urine Appearance Urine pH Ur Specific [place] Urine Protein Urine Glucose (UA) Urine Ketones Urine Blood Urine Nitrite Urine Bilirubin Urine Urobilinogen Ur Leukocyte Esterase Urine WBC (Auto) Urine RBC (Auto) Urine Casts (Auto) U Pathogenic Cast Auto U Epithel Cells (Auto) Urine Bacteria (Auto) Urine Yeast (Auto) Opiates Screen Methadone Screen Barbiturate Screen Phencyclidine Screen Ur Amphetamines Screen MDMA (Ecstasy) Screen Benzodiazepines Screen Cocaine Screen U Marijuana (THC) Screen Alcohol, Quantitative Active Medications Generic Name Dose Route Start Last Admin Trade Name Ruben PRN Reason Stop Dose Admin Heparin Sodium (Porcine) 5,000 unit 07/02/20 10:00 Heparin - SQ BID RAUL Sodium Chloride 1,000 mls @ 100 mls/hr 07/01/20 22:45 1/2 Normal Saline IV ASDIR RAUL Piperacillin Sod/Tazobactam 50 mls @ 100 mls/hr 07/02/20 02:00 Sod 3.375 gm/ Dextrose IVPB Q8H-IV RAUL Protocol Piperacillin Sod/Tazobactam 50 mls @ 100 mls/hr 07/02/20 02:00 Sod 3.375 gm/ Dextrose IVPB 07/02/20 18:29 Q8H-IV RAUL Protocol ASSESSMENT/PLAN: 34F with PMH of cachexia, polysubstance abuse (ETOH, heroin), cirrhosis, HTN, psoriasis, and asthma, BIBEMS with hypoglycemia, hypotension, hypoxia, hypothermia. On admission temp 92.4, BP 84/57, SpO2 88%. Was diagnosed with UTI 5 days ago, left AMA with Bactrim. 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 Naik consulted, will assess - AST/ALT 264/105, ALP 206, TBili 0.3 - Alcoholic Hepatitis? Would recommend Hep panel, RUQ US - Tarik's discriminant function: 71.6 #Renal - Cr 0.8 #ID - UA with 3+ LE, >9k bacteria - Started on Zosyn #FEN - K+ 6.0 -> 5.7 -> Pending - LR bolus x1, continue N/S #Prophylaxis - Heparin #Dispo - Will continue to monitor the pt, if BP does not improve after further fluid resuscitation, will admit to ICU for closer monitoring/possible pressor support Visit type - Emergency Visit Emergency Visit: Yes ED Registration Date: 07/01/20 Care time: The patient presented to the Emergency Department on the above date and was hospitalized for further evaluation of their emergent condition. - New Patient This patient is new to me today: No - Critical Care Critical Care patient: No ATTENDING PHYSICIAN STATEMENT I saw and evaluated the patient. I reviewed the resident's note and discussed the case with the resident. I agree with the resident's findings and plan as documented. SUBJECTIVE: OBJECTIVE: ASSESSMENT AND PLAN:
[2020-07-02 03:03] LABS: PLATELET ESTIMATE ADEQUATE
[2020-07-02] MEDS ORDERED: PIPERACILLIN/TAZOB 3.375 GM 3.375 GM/50 ML BAG IVPB ONE ×3 (03:26→20:34)
[2020-07-02] MEDS ORDERED: DEXTROSE 50%-WATER - 25 GM/50 ML VIAL IVPUSH ONE ×2 (03:35→15:18)
[2020-07-02] MEDS ORDERED: DEXTROSE 50%-WATER 25 GM/50 ML DISP.SYRIN ONE ×2 (03:36→15:18)
[2020-07-02] MEDS ORDERED: HYDROCORTISONE SOD SUCCINATE 100 MG/2 ML VIAL IVPUSH ONE (03:42)
[2020-07-02] MEDS ORDERED: DEXTROSE 5%-0.45% SALINE 1,000 ML IV SCH ×2 (03:45→15:24)
[2020-07-02] MEDS: PIPERACILLIN/TAZOB 3.375 GM 3.375 GM in DEXTROSE 5%-WATER - 50 ML IVPB SCH ×5 (03:46→21:00)
[2020-07-02] MEDS: SODIUM CHLORIDE 0.45% 1,000 ML IV SCH (03:46)
[2020-07-02] MEDS ORDERED: HYDROCORTISONE SOD SUCCINATE 2 ML ONE (03:48)
--- NOTE | 2020-07-02 04:22 | PDOC ---
*Physical Exam - Vital Signs Last Vital Signs Temp Pulse Resp BP Pulse Ox 98.1 F 82 15 85/62 L 100 07/02/20 01:13 07/02/20 01:13 07/02/20 01:13 07/02/20 01:13 07/02/20 01:13 - Physical Exam 07/02/20 06:35 drowsy but awake, cachectic appearing, hair loss. poor dentitiion, lungs clear bilat heart reg tachycardia. no mrg abd flat, cachectic. skin warm and dry. abrasions over knuckles noted. ED Treatment Course - LABORATORY CBC & Chemistry Diagram: 07/02/20 00:54 07/02/20 00:54 - ADDITIONAL ORDERS Additional order review: Laboratory Results 07/01/20 07/01/20 07/01/20 17:00 17:00 17:00 PT with INR INR PTT (Actin FS) Sodium 127 L Potassium 5.7 H Chloride 92 L Carbon Dioxide 22 Anion Gap 13 BUN 63.5 H Creatinine 0.8 Est GFR (CKD-EPI)AfAm 111.48 Est GFR (CKD-EPI)NonAf 96.19 Random Glucose 230 H Lactic Acid 5.9 H* Calcium 7.4 L Phosphorus Magnesium Total Bilirubin AST ALT Alkaline Phosphatase Troponin I Total Protein Albumin Serum , Qual Urine Color Urine Appearance Urine pH Ur Specific [place] Urine Protein Urine Glucose (UA) Urine Ketones Urine Blood Urine Nitrite Urine Bilirubin Urine Urobilinogen Ur Leukocyte Esterase Urine WBC (Auto) Urine RBC (Auto) Urine Casts (Auto) U Pathogenic Cast Auto U Epithel Cells (Auto) Urine Bacteria (Auto) Urine Yeast (Auto) Opiates Screen Positive A* Methadone Screen Negative Barbiturate Screen Negative Phencyclidine Screen Negative Ur Amphetamines Screen Negative MDMA (Ecstasy) Screen Negative Benzodiazepines Screen Negative Cocaine Screen Negative U Marijuana (THC) Screen Negative Alcohol, Quantitative 07/01/20 07/01/20 07/01/20 17:00 15:50 15:43 PT with INR 28.50 H INR 2.39 H PTT (Actin FS) 36.1 Sodium Potassium Chloride Carbon Dioxide Anion Gap BUN Creatinine Est GFR (CKD-EPI)AfAm Est GFR (CKD-EPI)NonAf Random Glucose Lactic Acid Calcium Phosphorus Magnesium Total Bilirubin AST ALT Alkaline Phosphatase Troponin I Total Protein Albumin Serum , Qual Negative Urine Color Dk yellow Urine Appearance Turbid Urine pH 7.0 Ur Specific [place] 1.023 Urine Protein 1+ H Urine Glucose (UA) Negative Urine Ketones Negative Urine Blood 3+ H Urine Nitrite Negative Urine Bilirubin Negative Urine Urobilinogen 1.0 Ur Leukocyte Esterase 3+ H Urine WBC (Auto) 9751 Urine RBC (Auto) 705 Urine Casts (Auto) 43 U Pathogenic Cast Auto Negative U Epithel Cells (Auto) >36 Urine Bacteria (Auto) >9,000 Urine Yeast (Auto) Negative Opiates Screen Methadone Screen Barbiturate Screen Phencyclidine Screen Ur Amphetamines Screen MDMA (Ecstasy) Screen Benzodiazepines Screen Cocaine Screen U Marijuana (THC) Screen Alcohol, Quantitative 07/01/20 14:50 PT with INR INR PTT (Actin FS) Sodium 128 L Potassium 6.0 H Chloride 93 L Carbon Dioxide 24 Anion Gap 11 BUN 68.6 H Creatinine 0.8 Est GFR (CKD-EPI)AfAm 111.48 Est GFR (CKD-EPI)NonAf 96.19 Random Glucose 85 Lactic Acid Calcium 7.8 L Phosphorus 4.9 Magnesium 2.2 Total Bilirubin 0.3 AST 264 H ALT 105 H Alkaline Phosphatase 206 H Troponin I < 0.02 Total Protein 6.4 Albumin 1.9 L Serum , Qual Urine Color Urine Appearance Urine pH Ur Specific [place] Urine Protein Urine Glucose (UA) Urine Ketones Urine Blood Urine Nitrite Urine Bilirubin Urine Urobilinogen Ur Leukocyte Esterase Urine WBC (Auto) Urine RBC (Auto) Urine Casts (Auto) U Pathogenic Cast Auto U Epithel Cells (Auto) Urine Bacteria (Auto) Urine Yeast (Auto) Opiates Screen Methadone Screen Barbiturate Screen Phencyclidine Screen Ur Amphetamines Screen MDMA (Ecstasy) Screen Benzodiazepines Screen Cocaine Screen U Marijuana (THC) Screen Alcohol, Quantitative < 3 07/01/20 07/01/20 15:00 14:28 RBC 3.20 L MCV 86.3 MCHC 33.3 RDW 13.8 MPV 6.7 L Neutrophils % 97.8 H Lymphocytes % 1.4 L D Monocytes % 0.2 L D Eosinophils % 0.4 D Basophils % 0.2 POC Glucometer 140 - Medications Given in the ED: ED Medications Discontinued Medications Generic Name Dose Route Start Last Admin Trade Name Freq PRN Reason Stop Dose Admin Dextrose/Lactated Ringer's 1,000 mls @ 250 mls/hr 07/01/20 14:45 07/01/20 15:15 D5-Lr - IV 250 mls/hr ASDIR RAUL Administration Piperacillin Sod/Tazobactam 50 mls @ 100 mls/hr 07/01/20 16:25 07/01/20 17:01 Sod 3.375 gm/ Dextrose IVPB 07/01/20 16:54 100 mls/hr ONCE ONE Administration Protocol Lactated Ringer's 1,000 ml 07/02/20 01:02 07/02/20 00:45 Lactated Ringers Solution IV 07/02/20 01:03 1,000 ml ONCE ONE Administration Ondansetron HCl 4 mg 07/01/20 23:10 07/02/20 00:45 Zofran Injection IVPUSH 07/01/20 23:11 4 mg NOW ONE Administration Vancomycin HCl 1,000 mg 07/01/20 16:25 07/01/20 17:47 Vancomycin (Pre-Docked) IVPB 07/01/20 16:26 1,000 mg ONCE ONE Administration Protocol Medical Decision Making - Medical Decision Making 07/02/20 05:14 34 yo F h/o etoh abuse, suspected eating disorder, severe cachexia here with supsected uti/ pt was seen one week ago, diagnosed with uti, concerns for sepsis, pt left ama. tonight feeling worse. signed out to me by day team pt admitted for uti / sepsis. severe FTT/ eating disorder. pt had recurrent hypoglycemia throughout the night. hyperkalemia and hyponatremia. due to eating disorder, sepsis, concerns for adrenal insufficiency. given 100mg hydrocortisone. also given amp d 50 for hypoglycemia. started on D% 1/2 NS at 50 ml / hr. focused ED sono TTE to eval contractility, h/o eating disorder difficult view pt with overall preservd contractility, no appreiciated pericardial effusion no RV dilation or strain. IVC sliver like, complete collapse c/w dehydration, septic shock incidentally noted bilat plueral effusion at the base. plan to obtain ct a/p r/o septic stone, other pathology. ICU consulted as pt with recurrent hypoglycemia, hypotensive, dr Modi informed. 07/02/20 06:[address] a/p noted to have high grade bowel obstruction. d/w dr turner, will see in hospital. Discharge - Discharge Information Problems reviewed: Yes Clinical Impression/Diagnosis: Hypoglycemia, At risk for electrolyte imbalance, Bowel obstruction, Pneumonia Sepsis Qualifiers: Sepsis type: sepsis due to unspecified organism Sepsis acute organ dysfunction status: unspecified Qualified Code(s): A41.9 - Sepsis, unspecified organism UTI (urinary tract infection) Qualifiers: Urinary tract infection type: site unspecified Hematuria presence: with hematuria Qualified Code(s): N39.0 - Urinary tract infection, site not specified Syncope Qualifiers: Syncope type: unspecified Qualified Code(s): R55 - Syncope and collapse Condition: Guarded - Follow up/Referral - Patient Discharge Instructions - Post Discharge Activity
[2020-07-02 07:28] LABS: HEMOGLOBIN 8.7 GM/dL (10.7-15.3); MCH 28.3 pg (25.7-33.7); MCHC 33.6 g/dl (32.0-36.0); MEAN CELL VOLUME 84.2 fl (80-96); MEAN PLT VOLUME 6.9 fl (7.5-11.1); PLATELET COUNT 277 K/MM3 (134-434); RBC 3.09 M/mm3 (3.60-5.2); RDW 13.6 % (11.6-15.6); WHITE BLOOD COUNT 12.7 K/mm3 (4.0-10.0)
[2020-07-02 07:31] LABS: ALBUMIN 1.6 g/dl (3.4-5.0); BILIRUBIN,TOTAL 0.4 mg/dL (0.2-1); CALCIUM 7.6 mg/dL (8.5-10.1); CREATININE 0.6 mg/dL (0.55-1.3); POTASSIUM 4.7 mmol/L (3.5-5.1); TOT PROT 5.5 g/dl (6.4-8.2)
--- NOTE | 2020-07-02 07:41 | CONSULT ---
Consult Consult Specialty:: Nephrology Reason for Consultation:: hyponatremia - History of Present Illness Chief Complaint: hypoglycemia History of Present Illness: Pt is a 34 year old female with pmhx of cachexia, etoh abuse, heroin abuse, liver corrhosis, htn, psoriasis and asthma who presents to the ER for hypoglycemia. She was found to be hypotensive and hypothermic. I was called to evaluate her for hyponatremia, hyperkalemia and azotemia. She is known to me from previous admissions. She is unable to give much history. She did complain of nausea. - History Source History Provided By: Medical Record - Past Medical History [employer] FORMULATOR: Yes: Other (mild encephalopathy) Gastrointestinal: Yes: Other (GERD) Hepatobiliary: Yes: Cirrhosis, Other (Elevated LFT's) ...LMP: 02/01/20 ...: No Psych: Yes: Addictions - Alcohol/Substance Use Hx Alcohol Use: No - Smoking History Smoking history: Current every day smoker Have you smoked in the past 12 months: Yes Aproximately how many cigarettes per day: 3 - Social History Usual Living Arrangement: With Parent (clean and neat) Home Medications - Allergies Allergies/Adverse Reactions: Allergies Allergy/AdvReac Type Severity Reaction Status Date / Time No Known Allergies Allergy Verified 07/01/20 14:36 - Home Medications Home Medications: Ambulatory Orders Sulfamethoxazole/Trimethoprim [Bactrim Ds -] 1 tab PO BID #14 tablet 06/26/20 Family Medical History Family History: Unable to Obtain Review of Systems Unable to obtain ROS, reason: lethargic,not cooperative Physical Exam Vital Signs: Vital Signs Temperature 98.3 F 07/02/20 07:03 Pulse Rate 105 H 07/02/20 07:03 Respiratory Rate 22 H 07/02/20 07:03 Blood Pressure 87/63 L 07/02/20 07:03 O2 Sat by Pulse Oximetry (%) 100 07/02/20 07:03 Constitutional: Yes: Cachectic Cardiovascular: Yes: S1, S2 Respiratory: Yes: On Nasal O2 Gastrointestinal: Yes: Soft Renal/: Yes: Uribe Present Musculoskeletal: Yes: Muscle Weakness Edema: No Integumentary: No: Rash Neurological: Yes: Lethargy Labs: CBC, BMP 07/02/20 06:50 Laboratory Tests 02/01/19 06/26/20 07/01/20 10:34 19:41 14:50 WBC Hgb Sodium 128 L Potassium 6.0 H BUN 68.6 H Creatinine 0.8 0.5 L Lactic Acid 07/01/20 07/02/20 07/02/20 17:00 00:54 06:50 WBC 12.7 H Hgb 8.7 L Sodium 127 L 127 L Potassium 5.7 H 5.3 H BUN Creatinine 0.8 0.7 Lactic Acid 07/02/20 07/02/20 06:50 06:50 WBC Hgb Sodium 129 L Potassium 4.7 BUN 50.0 H Creatinine 0.6 Lactic Acid 2.9 H* Imaging - Results Cat Scan: Report Reviewed Problem List - Problems (1) Hypoglycemia Code(s): E16.2 - HYPOGLYCEMIA, UNSPECIFIED (2) Sepsis Code(s): A41.9 - SEPSIS, UNSPECIFIED ORGANISM Qualifiers: Sepsis type: sepsis due to unspecified organism Sepsis acute organ dysfunction status: unspecified Qualified Code(s): A41.9 - Sepsis, unspecified organism (3) Hypoalbuminemia Code(s): E88.09 - OTH DISORDERS OF PLASMA-PROTEIN METABOLISM, NEC (4) Hyponatremia Code(s): E87.1 - HYPO-OSMOLALITY AND HYPONATREMIA Assessment/Plan Current Medications Generic Name Dose Route Start Last Admin Trade Name Freq PRN Reason Stop Dose Admin Heparin Sodium (Porcine) 5,000 unit 07/02/20 10:00 Heparin - SQ BID RAUL Sodium Chloride 1,000 mls @ 100 mls/hr 07/01/20 22:45 07/02/20 03:46 1/2 Normal Saline IV Not Given ASDIR RAUL Piperacillin Sod/Tazobactam 50 mls @ 100 mls/hr 07/02/20 02:00 Sod 3.375 gm/ Dextrose IVPB Q8H-IV RAUL Protocol Piperacillin Sod/Tazobactam 50 mls @ 100 mls/hr 07/02/20 02:00 07/02/20 03:46 Sod 3.375 gm/ Dextrose IVPB 07/02/20 18:29 100 mls/hr Q8H-IV RAUL Administration Protocol Dextrose/Sodium Chloride 1,000 mls @ 50 mls/hr 07/02/20 03:45 07/02/20 04:00 D5-1/2ns - IV 50 mls/hr ASDIR RAUL Administration Impression 1. azotemia 2. hyponatremia 3. hyperkalemia 4. hypotension 5. sepsis 6. sbo 7. uti 8. liver cirrhosis 9. hypoalbuminemia 10. etoh abuse 11. substance abuse 12. psoriasis Plan - cont fluids - monitor bp - sodium is improving - potassium improving - cont abx - follow cultures - monitor lytes - psych eval once she is more stable
--- NOTE | 2020-07-02 08:41 | CONSULT ---
<Vipin Leal P - Last Filed: 07/02/20 09:32> - Consultation REQUESTING PROVIDER: Brandon Naik - General Surgery CONSULT REQUEST: We have been asked to surgically evaluate this patient for SBO. PCP: Agnes Modi HPI: Called to kita 34 yo female with PMHx as noted below. BIBA to [facility] ED for emergent evaluation s/p syncopal episode 2/2 hypoglycemia, hypotension and hypothermia. Patient recently seen here at for UTI but signed out AMA. On admission temp 92.4, BP 84/57, SpO2 88%. Denies PSHx. While in ED, patient had an ABD/PELVIS CT scan which identified bilat LL PNA (R>L) with small bilateral pleural effusions, possibly due to aspiration. SBO without abscess, free or discrete transition point. Small amount of ascites. Currently, in bed win slight trendelenberg position. States she feels a little nauseous. Denies n/v/f/c, CP, palpitations, SOB or FULLER. PMHx: Cachexia (bulemia vs. anorexia), EtOH abuse, Heroin abuse, Cirrhosis, HTN, GERD, Psoriasis / psoriatic arthritis, Asthma PSHx: None. Home Medications: Bactrim DS 1 tab PO BID Symbicort Allergies: NKDA ROS: 12 systems reviewed and considered negative except for what's contained in the HPI. PE: GENERAL: Awake, cachexia EYES: PERRL, sclera anicteric, conjunctiva clear. LUNGS: HEART: RRR ABD: Soft, nontender, not distended, hypoactive bowel sounds in all quadrants. No guarding, no rebound. MUSCULOSKELETAL: No CVA tenderness bilateral UE: 2+ pulses, warm, well-perfused. No cyanosis. Cap refill <2 seconds. No peripheral edema. LE: 2+ pulses, warm, well-perfused. No calf tenderness. No peripheral edema. NEUROLOGICAL: Normal speech, gait not observed. Last Vital Signs Temp Pulse Resp BP Pulse Ox 98.3 F 105 H 22 H 87/63 L 100 07/02/20 07:03 07/02/20 07:03 07/02/20 07:03 07/02/20 07:03 07/02/20 07:03 CBC, BMP 07/02/20 06:50 07/02/20 06:50 Hepatic Panel Total Bilirubin 0.4 mg/dL (0.2-1) 07/02/20 06:50 AST 243 U/L (15-37) H 07/02/20 06:50 ALT 117 U/L (13-61) H 07/02/20 06:50 Alkaline Phosphatase 196 U/L (45-117) H 07/02/20 06:50 Albumin 1.6 g/dl (3.4-5.0) L 07/02/20 06:50 INR, PTT INR 2.39 (0.83-1.09) H 07/01/20 15:43 Urine Test Results Urine Color Dk yellow 07/01/20 15:50 Urine Appearance Turbid 07/01/20 15:50 Urine pH 7.0 (5.0-8.0) 07/01/20 15:50 Ur Specific [place] 1.023 (1.010-1.035) 07/01/20 15:50 Urine Protein 1+ (NEGATIVE) H 07/01/20 15:50 Urine Glucose (UA) Negative (NEGATIVE) 07/01/20 15:50 Urine Ketones Negative (NEGATIVE) 07/01/20 15:50 Urine Blood 3+ (NEGATIVE) H 07/01/20 15:50 Urine Nitrite Negative (NEGATIVE) 07/01/20 15:50 Urine Bilirubin Negative (NEGATIVE) 07/01/20 15:50 Ur Leukocyte Esterase 3+ (NEGATIVE) H 07/01/20 15:50 Serology Tests 07/01/20 07/02/20 15:14 00:54 COVID-19 (ALYSIA) Not detected HIV Ag/Ab Combo Qual Negative A/P: 34 yo female with PMHx of EtOH abuse, heroin abuse, cirrhosis, severe malnutrition/cachexia/FTT, recently treated for UTI but signed out AMA. Returns to ED via ambulance 2/2 syncopal episode, hypoglycemia, hyponatremia, hypotensive and hypothermic. CT scan identified an SBO (most likely associated with elyte abnormality seeing as patient has no surgical scars on her abdomen). -NPO -IVF -GI PPx -DVT PPx -Recommend NGT prn -Nutrition consult -Correct elyte abnormalities -Serial abd exam & xrays -Covid negative -ICU consult pending -Renal Consult pending -- ^ BUN -Trend H/H -No surgical intervention planned -Cont medical management -Above plan discussed with Dr. Naik and agrees. Problem List - Problems (1) SBO (small bowel obstruction) Code(s): K56.609 - UNSP INTESTNL OBST, UNSP TO PARTIAL VERSUS COMPLETE OBST (2) At risk for electrolyte imbalance Code(s): Z91.89 - OTH PERSONAL RISK FACTORS, NOT ELSEWHERE CLASSIFIED (3) Pneumonia Code(s): J18.9 - PNEUMONIA, UNSPECIFIED ORGANISM (4) Alcoholic liver damage Code(s): K70.9 - ALCOHOLIC LIVER DISEASE, UNSPECIFIED (5) Cachexia Code(s): R64 - CACHEXIA (6) Hypoalbuminemia Code(s): E88.09 - OTH DISORDERS OF PLASMA-PROTEIN METABOLISM, NEC (7) Hyponatremia Code(s): E87.1 - HYPO-OSMOLALITY AND HYPONATREMIA (8) Liver cirrhosis, alcoholic Code(s): K70.30 - ALCOHOLIC CIRRHOSIS OF LIVER WITHOUT ASCITES Visit type - Case Type Case Type: ED Admission - Emergency Emergency Visit: Yes ED Registration Date: 07/01/20 Care time: The patient presented to the Emergency Department on the above date and was hospitalized for further evaluation of their emergent condition. - New patient This patient is new to me today: Yes Date on this admission: 07/02/20 <Brandon Naik - Last Filed: 07/24/20 08:41> - Consultation Attending Surgeon: I personally saw and examined the patient. My examination reveals a patient with # [id number] medical comorbidities and probable ileus. I discussed the case with the surgical PA and agree with their findings and plan of care with any exceptions as noted. ~ Brandon Naik MD, FACS
[2020-07-02 10:54] LABS: ANISOCYTOSIS 1+; MACROCYTOSIS 1+; OVALOCYTE 1+; PLATELET ESTIMATE NORMAL; TEAR DROP CELLS 1+
--- NOTE | 2020-07-02 11:16 | EKG ---
Test Reason : Blood Pressure : / mmHG Vent. Rate : 088 BPM Atrial Rate : 088 BPM P-R Int : 102 ms QRS Dur : 072 ms QT Int : 288 ms P-R-T Axes : 086 097 087 degrees QTc Int : 348 ms SINUS RHYTHM WITH SHORT VT POSSIBLE LEFT ATRIAL ENLARGEMENT LOW VOLTAGE QRS POSSIBLE ANTEROLATERAL INFARCT (CITED ON OR BEFORE 01-JUL-2020) ABNORMAL ECG WHEN COMPARED WITH ECG OF 01-JUL-2020 15:21, T WAVE VARIATION Confirmed by SOTO GRAFF MD ([id number]) on 07/02/2020 11:16:06 AM Referred By: Confirmed By:SOTO GRAFF MD
--- NOTE | 2020-07-02 11:17 | EKG ---
Test Reason : Blood Pressure : / mmHG Vent. Rate : 075 BPM Atrial Rate : 075 BPM P-R Int : 114 ms QRS Dur : 086 ms QT Int : 424 ms P-R-T Axes : 084 097 101 degrees QTc Int : 473 ms NORMAL SINUS RHYTHM POSSIBLE LEFT ATRIAL ENLARGEMENT LOW VOLTAGE QRS POSSIBLE ANTEROLATERAL INFARCT (CITED ON OR BEFORE 01-FEB-2019) ABNORMAL ECG WHEN COMPARED WITH ECG OF 01-FEB-2019 08:54, VENT. RATE HAS INCREASED BY 37 BPM Confirmed by SOTO GRAFF MD ([id number]) on 07/02/2020 11:17:27 AM Referred By: Confirmed By:SOTO GRAFF MD
[2020-07-02] MEDS ORDERED: HEPARIN NA (PORCINE) 5,000 UNITS/ML 1ML VIAL ONE (11:41)
[2020-07-02] MEDS: HEPARIN NA (PORCINE) 5,000 UNITS/ML 1ML VIAL SQ SCH (11:55)
[2020-07-02] MEDS ORDERED: SODIUM CHLORIDE 1,000 ML IV STA (12:05)
--- NOTE | 2020-07-02 12:43 | CON.ID ---
Consult Consult Specialty:: infectious diseases Referred by:: hospitalist Reason for Consultation:: infection,cachesxia,drug abuse,hypoglycemia - History of Present Illness Chief Complaint: pneumonia,resp failure History of Present Illness: 34 year old female with PMH of cachexia, polysubstance abuse (ETOH, heroin), cirrhosis, HTN, psoriasis, and asthma. She presented to the ER after an episode of hypoglycemia at home, and was BIBEMS with hypoglycemia, hypotension, hypoxia, hypothermia. On admission temp 92.4, BP 84/57, SpO2 88%. Currently endorses nausea, denies chest pain, SOB, cough, fevers, vomiting, diarrhea, constipation, or urinary symptoms. Pt was last seen at [facility] on 06/26 and was found to have a UTI. She left AMA before CT:AP could be completed, and was sent a prescription for Bactrim. 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) Gastrointestinal: Yes: Other (GERD) Hepatobiliary: Yes: Cirrhosis, Other (Elevated LFT's) ...LMP: 02/01/20 ...: No Psych: Yes: Addictions - Alcohol/Substance Use Hx Alcohol Use: No - Smoking History Smoking history: Current every day smoker Have you smoked in the past 12 months: Yes Aproximately how many cigarettes per day: 3 - Social History Usual Living Arrangement: With Parent (clean and neat) Home Medications - Allergies Allergies/Adverse Reactions: Allergies Allergy/AdvReac Type Severity Reaction Status Date / Time No Known Allergies Allergy Verified 07/01/20 14:36 - Home Medications Home Medications: Ambulatory Orders Sulfamethoxazole/Trimethoprim [Bactrim Ds -] 1 tab PO BID #14 tablet 06/26/20 Review of Systems Unable to obtain ROS, reason: unable to obtain - Review of Systems Constitutional: reports: Weakness, Other Eyes: reports: No Symptoms HENT: reports: No Symptoms Neck: reports: No Symptoms Cardiovascular: reports: No Symptoms Respiratory: reports: No Symptoms Gastrointestinal: reports: No Symptoms Genitourinary: reports: No Symptoms Musculoskeletal: reports: No Symptoms Integumentary: reports: No Symptoms Neurological: reports: No Symptoms Endocrine: reports: No Symptoms Hematology/Lymphatic: reports: No Symptoms Psychiatric: reports: No Symptoms Physical Exam Vital Signs: Vital Signs Temperature 98.3 F 07/02/20 07:03 Pulse Rate 105 H 07/02/20 07:03 Respiratory Rate 22 H 07/02/20 07:03 Blood Pressure 87/63 L 07/02/20 07:03 O2 Sat by Pulse Oximetry (%) 100 07/02/20 07:03 Constitutional: Yes: Other (cachetic,failure to thrive,weak) Eyes: Yes: Conjunctiva Clear HENT: Yes: Atraumatic, Normocephalic Neck: Yes: Supple, Trachea Midline Cardiovascular: Yes: Regular Rate and Rhythm Respiratory: Yes: Regular, CTA Bilaterally Gastrointestinal: Yes: Normal Bowel Sounds, Soft Musculoskeletal: Yes: WNL Extremities: Yes: WNL Neurological: Yes: Alert, Oriented Psychiatric: Yes: Alert, Oriented Labs: CBC, BMP 07/02/20 06:50 07/02/20 06:50 Imaging - Results Chest X-ray: Report Reviewed, Image Reviewed Cat Scan: Report Reviewed, Image Reviewed Assessment/Plan Pneumonia likely Aspiration UTI Sepsis Hyponatremia SBO resolving Alcohol/Heroin Abuse Anemia Failure to Thrive Severe Protein Calorie Malnutrition plan patient extremely hypothermic and probably septic going to icu for further mgmt will start her on abx await for all cx warm the patient will need lot of support nutrition monitor resp status and patient is having some resp distress cc 45 min
[2020-07-02] MEDS: SODIUM CHLORIDE 1,000 ML IV SCH (13:11)
--- NOTE | 2020-07-02 15:53 | PN ---
Progress Note (short form) - Note Progress Note: 34 yo female with pmh cachexia (bulimia vs anorexia vs mixed picture), ETOH abuse, heroin abuse, cirrhosis, HTN, GERD, psoriasis / psoriatic arthritis, asthma, presenting after episode of passing out with hypoglycemia at home. Dr. Armijo spoke to Dr. Gallagher and Dr. Gallagher states that pt is stable for telemetry due to BP and positive trending labs. IF indications for ICU is needed will happy to consult.
[2020-07-02] MEDS ORDERED: VANCOMYCIN 1 GRAM (PRE-DOCKED) 1,000 MG/250 ML BAG IVPB ONE (16:06)
[2020-07-02] MEDS: VANCOMYCIN HCL 1,250 MG in DEXTROSE 5%-WATER - 250 ML IVPB SCH (16:31)
[2020-07-02] MEDS ORDERED: SODIUM CHLORIDE 0.9% 250 ML INFUS.BAG IV ONE (22:27)
--- NOTE | 2020-07-02 22:32 | PN ---
Progress Note, Physician History of Present Illness: Pt seems more lethargic - Current Medication List Current Medications: Active Medications Heparin Sodium (Porcine) (Heparin -) 5,000 unit SQ BID RAUL Last Admin: 07/02/20 11:55 Dose: 5,000 unit Documented by: Sodium Chloride (1/2 Normal Saline) 1,000 mls @ 100 mls/hr IV ASDIR RAUL Last Admin: 07/02/20 03:46 Dose: Not Given Documented by: Sodium Chloride (Normal Saline -) 1,000 mls @ 75 mls/hr IV ASDIR RAUL Last Admin: 07/02/20 13:11 Dose: 75 mls/hr Documented by: Piperacillin Sod/Tazobactam (Sod 3.375 gm/ Dextrose) 50 mls @ 100 mls/hr IVPB Q8H-IV RAUL; Protocol Last Admin: 07/02/20 21:00 Dose: 100 mls/hr Documented by: Vancomycin HCl 1,250 mg/ (Dextrose) 250 mls @ 250 mls/2 hr IVPB Q24H RAUL; Protocol Last Admin: 07/02/20 16:31 Dose: 250 mls/2 hr Documented by: Dextrose/Sodium Chloride (D5-1/2ns -) 1,000 mls @ 75 mls/hr IV ASDIR RAUL Last Admin: 07/02/20 15:46 Dose: 75 mls/hr Documented by: - Objective Vital Signs: Vital Signs Temperature 96.8 F L 07/02/20 21:00 Pulse Rate 75 07/02/20 21:00 Respiratory Rate 22 H 07/02/20 21:00 Blood Pressure 75/53 L 07/02/20 21:00 O2 Sat by Pulse Oximetry (%) 100 07/02/20 21:00 Constitutional: Yes: Cachectic Neck: Yes: WNL, Supple Cardiovascular: Yes: WNL, Regular Rate and Rhythm Respiratory: Yes: WNL, Regular, CTA Bilaterally Gastrointestinal: Yes: WNL, Normal Bowel Sounds, Soft Labs: CBC, BMP 07/02/20 06:50 07/02/20 06:50 INR, PTT INR 2.39 (0.83-1.09) H 07/01/20 15:43 Problem List - Problems (1) Sepsis Assessment/Plan: Lactic acidosis Cont IVF Will bolus NS for hypotension Cont IV antibxs Blood culture/urine culture negative to date Repeat lactic acid in am As per ID Code(s): A41.9 - SEPSIS, UNSPECIFIED ORGANISM Qualifiers: Sepsis type: sepsis due to unspecified organism Sepsis acute organ dysfunc tion status: unspecified Qualified Code(s): A41.9 - Sepsis, unspecified organism (2) At risk for electrolyte imbalance Assessment/Plan: Electrolytes improving Cont to monitor Code(s): Z91.89 - OTH PERSONAL RISK FACTORS, NOT ELSEWHERE CLASSIFIED (3) SBO (small bowel obstruction) Assessment/Plan: Seen by surgery No intervention at this time Code(s): K56.609 - UNSP INTESTNL OBST, UNSP TO PARTIAL VERSUS COMPLETE OBST (4) Liver cirrhosis, alcoholic Assessment/Plan: Will check ammonia level Cont to trend LFT's Code(s): K70.30 - ALCOHOLIC CIRRHOSIS OF LIVER WITHOUT ASCITES (5) Hypoalbuminemia Code(s): E88.09 - OTH DISORDERS OF PLASMA-PROTEIN METABOLISM, NEC (6) Substance abuse Assessment/Plan: Psych consult ?Competency Code(s): F19.10 - OTHER PSYCHOACTIVE SUBSTANCE ABUSE, UNCOMPLICATED (7) Cachexia Assessment/Plan: Due to severe protein malnutrition Code(s): R64 - CACHEXIA
[2020-07-02] MEDS ORDERED: SODIUM CHLORIDE 250 ML IV STA (23:58)
[2020-07-03 01:05] LABS: BLOOD UREA NITROGEN 38.3 mg/dL (7-18); CREATININE 0.5 mg/dL (0.55-1.3); MAGNESIUM 1.5 mg/dL (1.8-2.4); PHOSPHOROUS 2.4 mg/dL (2.5-4.9); POTASSIUM 3.9 mmol/L (3.5-5.1)
[2020-07-03 01:26] LABS: CALCIUM 6.6 mg/dL (8.5-10.1)
[2020-07-03] MEDS: SODIUM CHLORIDE 0.45% 1,000 ML IV SCH (02:15)
[2020-07-03] MEDS ORDERED: SODIUM CHLORIDE 500 ML IV STA (04:16)
--- NOTE | 2020-07-03 04:19 | PN ---
Progress Note (short form) - Note Progress Note: Pt found to be desatting 87% on NC 2L with minimal improvement on 4L, tachypnic to 40s with BP 70s/40s and MAP 65, started on NRB, will bolus 500cc N/S, and will admit to ICU for further monitoring, possible pressors for septic shock.
[2020-07-03] MEDS: HEPARIN NA (PORCINE) 5,000 UNITS/ML 1ML VIAL SQ SCH ×3 (04:26→21:34)
[2020-07-03] MEDS ORDERED: PIPERACILLIN/TAZOB 3.375 GM 3.375 GM/50 ML BAG IVPB ONE (05:30)
[2020-07-03] MEDS ORDERED: MAGNESIUM 1GM/D5W - 1 GM/100 ML IVPB IVPB ONE (05:30)
[2020-07-03] MEDS: PIPERACILLIN/TAZOB 3.375 GM 3.375 GM in DEXTROSE 5%-WATER - 50 ML IVPB SCH ×3 (05:46→18:28)
[2020-07-03 06:09] LABS: BASO % 1.4 % (0-2.0); EOS % 1.6 % (0-4.5); HEMATOCRIT 22.8 % (32.4-45.2); HEMOGLOBIN 7.6 GM/dL (10.7-15.3); LYMPH % 1.3 % (8-40); MCH 28.2 pg (25.7-33.7); MCHC 33.4 g/dl (32.0-36.0); MEAN CELL VOLUME 84.5 fl (80-96); MEAN PLT VOLUME 6.9 fl (7.5-11.1); MONO % 0.5 % (3.8-10.2); NEUT % 95.2 % (42.8-82.8); PLATELET COUNT 251 K/MM3 (134-434); RDW 13.8 % (11.6-15.6); WHITE BLOOD COUNT 14.4 K/mm3 (4.0-10.0)
[2020-07-03 06:56] LABS: ALBUMIN 1.3 g/dl (3.4-5.0); CREATININE 0.6 mg/dL (0.55-1.3); MAGNESIUM 1.5 mg/dL (1.8-2.4); TOT PROT 4.7 g/dl (6.4-8.2)
[2020-07-03 06:57] LABS: BILIRUBIN,TOTAL 0.3 mg/dL (0.2-1); PHOSPHOROUS 2.6 mg/dL (2.5-4.9)
[2020-07-03 08:05] LABS: CALCIUM 6.4 mg/dL (8.5-10.1)
--- NOTE | 2020-07-03 08:46 | PN ---
Progress Note (short form) - Note Progress Note: GENERAL SURGERY 34 yo female severely malnourished, cachexia. Admitted to hospital s/p syncopal episode, hyponatremia, hypothermia and SBO most likely attributed to her elyte abnormalities. While on the floor, it was noted she was 87% on NC 2L with minimal improvement on 4L, tachypenic to 40s with BP 70s/40s and MAP 65. She was switched to a NRB and transferred to ICU for septic shock work-up. Last Vital Signs Temp Pulse Resp BP Pulse Ox 97.9 F 108 H 24 H 94/69 94 L 07/03/20 04:00 07/03/20 06:14 07/03/20 06:14 07/03/20 06:14 07/03/20 06:14 CBC, BMP 07/03/20 05:29 07/03/20 05:52 GEN: PULM: COR: slightly tachy at 108 ABD: soft. NT. ND. : mistry to gravity LE: SCDs bilat. A/P: 34 yo female with PMHx of EtOH abuse, heroin abuse, cirrhosis, severe malnutrition/cachexia/FTT, recently treated for UTI but signed out AMA. Returns to ED via ambulance 2/2 syncopal episode, hypoglycemia, hyponatremia, hypotensive and hypothermic. CT scan identified an SBO (most likely associated with elyte abnormality seeing as patient has no surgical scars on her abdomen). 1.NPO 2.IVF 3.GI PPx 4.DVT PPx 5.Recommend NGT prn 6.Nutrition consult 7.Correct elyte abnormalities 8.Serial abd exam & xrays 9.Renal following 10.Trend H/H 11.No surgical intervention planned 12.Cont ICU management 13.Given her poor nutritional status, she is at increased risk for tissue breakdown. -Reposition every two hours while in bed -Air mattress recommended -Use drawsheets and Trendelenburg when repositioning to reduce friction and shear -Manageincontinence via timely cleansing, use of appropriate incontinence disposables and use of barrier ointment to intact skin -Ensure adequate hydration/nutrition, supplementation per primary team -Ensure off-loading to all bony areas (heels, ankles, hips and tailbone) with Allevyn/Optifoam Above plan discussed with Dr. Naik and agrees. <Vipin Leal P - Last Filed: 07/03/20 09:06> - Note Progress Note: Attending Surgeon: I personally saw and examined the patient. My examination reveals a patient with failure to thrive. I discussed the case with the surgical PA and agree with their findings and plan of care with any exceptions as noted. ~ Brandon Naik MD, FACS <Brandon Naik N - Last Filed: 07/06/20 10:46> Problem List - Problems (1) SBO (small bowel obstruction) Code(s): K56.609 - UNSP INTESTNL OBST, UNSP TO PARTIAL VERSUS COMPLETE OBST (2) At risk for electrolyte imbalance Code(s): Z91.89 - OTH PERSONAL RISK FACTORS, NOT ELSEWHERE CLASSIFIED (3) Pneumonia Code(s): J18.9 - PNEUMONIA, UNSPECIFIED ORGANISM (4) Alcoholic liver damage Code(s): K70.9 - ALCOHOLIC LIVER DISEASE, UNSPECIFIED (5) Cachexia Code(s): R64 - CACHEXIA (6) Hypoalbuminemia Code(s): E88.09 - OTH DISORDERS OF PLASMA-PROTEIN METABOLISM, NEC (7) Hyponatremia Code(s): E87.1 - HYPO-OSMOLALITY AND HYPONATREMIA (8) Liver cirrhosis, alcoholic Code(s): K70.30 - ALCOHOLIC CIRRHOSIS OF LIVER WITHOUT ASCITES <Vipin Leal - Last Filed: 07/03/20 09:06>
[2020-07-03] MEDS ORDERED: PIPERACILLIN/TAZOBACTAM 3.375 GM VIAL IVPB ONE ×2 (08:50→18:26)
[2020-07-03] MEDS ORDERED: DEXTROSE 5%-WATER - 50 ML IVPB ONE ×2 (08:50→18:26)
[2020-07-03] MEDS ORDERED: MAGNESIUM 2GM/50ML STERILE WATER IVPB IVPB ONE (09:15)
[2020-07-03 10:44] LABS: ANISOCYTOSIS 1+; MACROCYTOSIS 0; PLATELET ESTIMATE NORMAL
--- NOTE | 2020-07-03 11:48 | PN ---
Teaching Attending Note Name of Resident: Gio Howard ATTENDING PHYSICIAN STATEMENT I saw and evaluated the patient. I reviewed the resident's note and discussed the case with the resident. I agree with the resident's findings and plan as documented. SUBJECTIVE: Pt seen and examined in the ICU. Lethargic but blood pressures improving with IVF. More normothermic on aretha hugger. Having diarrhea per nursing. OBJECTIVE: Vital Signs Period Temp Pulse Resp BP Sys/Campbell Pulse Ox Last 24 Hr 96.4 F-98.9 F 64-116 15-95 73-95/48-73 94-100 Intake & Output 06/30/20 07/01/20 07/02/20 07/03/20 23:59 23:59 23:59 23:59 Output Total 900 Balance -900 Weight 27.216 kg 27.216 kg Gen: lethargic, cachectic Heart: RRR Lung: decreased breath sounds at the bases Abd: soft, nontender Ext: no edema CBC, BMP 07/03/20 05:29 07/03/20 05:52 Active Medications Chlorhexidine Gluconate (Hibiclens For Decolonization -) 1 applic TP HS RAUL Heparin Sodium (Porcine) (Heparin -) 5,000 unit SQ BID RAUL Last Admin: 07/03/20 10:46 Dose: 5,000 unit Documented by: Sodium Chloride (1/2 Normal Saline) 1,000 mls @ 100 mls/hr IV ASDIR RAUL Last Admin: 07/03/20 02:15 Dose: Not Given Documented by: Sodium Chloride (Normal Saline -) 1,000 mls @ 75 mls/hr IV ASDIR [facility] Last Admin: 07/02/20 13:11 Dose: 75 mls/hr Documented by: Piperacillin Sod/Tazobactam (Sod 3.375 gm/ Dextrose) 50 mls @ 100 mls/hr IVPB Q8H-IV RAUL; Protocol Last Admin: 07/03/20 10:46 Dose: 100 mls/hr Documented by: Vancomycin HCl 1,250 mg/ (Dextrose) 250 mls @ 250 mls/2 hr IVPB Q24H RAUL; Protocol Last Admin: 07/02/20 16:31 Dose: 250 mls/2 hr Documented by: Dextrose/Sodium Chloride (D5-1/2ns -) 1,000 mls @ 75 mls/hr IV ASDIR RAUL Last Admin: 07/02/20 15:46 Dose: 75 mls/hr Documented by: Multivitamins/Minerals (Infuvite Adult -) 10 ml IV DAILY [facility] Mupirocin (Bactroban Ointment (For Decolonization) -) 1 applic NS BID [facility] Stop: 07/08/20 09:59 Thiamine HCl (Vitamin B1 Injection -) 100 mg IVPB ONCE ONE Stop: 07/03/20 11:44 ASSESSMENT AND PLAN: Pneumonia likely Aspiration UTI Sepsis Hyponatremia SBO resolving Alcohol/Heroin Abuse Anemia Failure to Thrive Severe Protein Calorie Malnutrition - IV antibiotics - f/u cultures - O2 to keep SpO2 >90% - IVF - monitor lytes - NGT - start enteral feeds - DVT prophylaxis
[2020-07-03] MEDS ORDERED: THIAMINE HCL 200 MG/2 ML VIAL IVPB ONE (12:00)
[2020-07-03] MEDS ORDERED: DEXTROSE 5%-NORMAL SALINE 1,000 ML IV SCH (12:15)
--- NOTE | 2020-07-03 13:31 | PN ---
Physical Exam: SUBJECTIVE: Patient seen and examined. This is a 34 year old female with PMH of cachexia, polysubstance abuse (ETOH, heroin), cirrhosis, HTN, psoriasis, and asthma. She presented to the ER after an episode of hypoglycemia at home, and was BIBEMS with hypoglycemia, hypotension, hypoxia, hypothermia. Pt is unreliable historian due to AMS. Pt mother was called and history given who states pt does not have eating disorder and is followed by Dr. Moss. Pt started losing weight three years ago. According to mother pt eats "alot". Pt used to drink 196 proof alcohol heavily according to mother. Pt now drinks occasional alcohol and snorts heroin occasionally. Pt was feeling generalized weakness throughout the week denies fever. No psychiatric follow up. Pt today unable to give history but nurse states pt having multiple episodes of diarrhea. PMH: polysubstance abuse (EtOH, heroin), cirrhosis, htn, asthma Home Meds: symbicort Social: Currently occasional drinker and heroin snorter FHx: remote maternal aunt unknown cancer OBJECTIVE: GENERAL: Awake, alert, and oriented to person HEAD: No signs of trauma, normocephalic, atraumatic EYES: PERRLA, EOMI, sclera anicteric, conjunctiva clear ENT: Auricles normal inspection, hearing grossly normal, nares patentHt NECK: Normal ROM, supple, no lymphadenopathy, JVD, or masses LUNGS: No distress, speaks full sentences, clear to auscultation bilaterally HEART: Regular rate and rhythm, normal S1 and S2, no murmurs, rubs or gallops, peripheral pulses normal and equal bilaterally. ABDOMEN: Soft, nontender, normoactive bowel sounds. No guarding, no rebound. No masses EXTREMITIES : cachectic NEUROLOGICAL: Cranial nerves II through XII grossly intact. Normal speech, SKIN:Cachectic Vital Signs Period Temp Pulse Resp BP Sys/Campbell Pulse Ox Last 24 Hr 96.8 F-98.9 F 64-116 17-95 73-95/48-73 94-100 Laboratory Results - last 24 hr 07/02/20 07/02/20 07/02/20 15:17 15:43 22:25 WBC RBC Hgb Hct MCV MCH MCHC RDW Plt Count MPV Absolute Neuts (auto) Neutrophils % Neutrophils % (Manual) Band Neutrophils % Lymphocytes % Lymphocytes % (Manual) Monocytes % Monocytes % (Manual) Eosinophils % Eosinophils % (Manual) Basophils % Basophils % (Manual) Myelocytes % (Man) Promyelocytes % (Man) Blast Cells % (Manual) Nucleated RBC % Metamyelocytes Hypochromia Platelet Estimate Polychromasia Poikilocytosis Anisocytosis Microcytosis Macrocytosis Ho Cells Sodium Potassium Chloride Carbon Dioxide Anion Gap BUN Creatinine Est GFR (CKD-EPI)AfAm Est GFR (CKD-EPI)NonAf POC Glucometer 37 240 131 Random Glucose Lactic Acid Calcium Phosphorus Magnesium Total Bilirubin AST ALT Alkaline Phosphatase Total Protein Albumin 07/03/20 07/03/20 07/03/20 00:15 00:15 05:29 WBC 14.4 H RBC 2.70 L Hgb 7.6 L Hct 22.8 L MCV 84.5 MCH 28.2 MCHC 33.4 RDW 13.8 Plt Count 251 MPV 6.9 L Absolute Neuts (auto) 13.7 H Neutrophils % 95.2 H Neutrophils % (Manual) 93.0 H Band Neutrophils % 5.0 Lymphocytes % 1.3 L Lymphocytes % (Manual) 1.0 L D Monocytes % 0.5 L Monocytes % (Manual) 0 L Eosinophils % 1.6 D Eosinophils % (Manual) 1.0 D Basophils % 1.4 D Basophils % (Manual) 0.0 Myelocytes % (Man) 0 Promyelocytes % (Man) 0 Blast Cells % (Manual) 0 Nucleated RBC % 0 Metamyelocytes 0 Hypochromia 0 Platelet Estimate Normal Polychromasia 1+ Poikilocytosis 2+ Anisocytosis 1+ Microcytosis 1+ Macrocytosis 0 Ho Cells 2+ Sodium 130 L Potassium 3.9 Chloride 101 Carbon Dioxide 20 L Anion Gap 10 BUN 38.3 H Creatinine 0.5 L Est GFR (CKD-EPI)AfAm 146.35 Est GFR (CKD-EPI)NonAf 126.27 POC Glucometer Random Glucose 121 H Lactic Acid 2.3 H* Calcium 6.6 L* Phosphorus 2.4 L Magnesium 1.5 L Total Bilirubin AST ALT Alkaline Phosphatase Total Protein Albumin 07/03/20 07/03/20 07/03/20 05:29 05:52 06:10 WBC RBC Hgb Hct MCV MCH MCHC RDW Plt Count MPV Absolute Neuts (auto) Neutrophils % Neutrophils % (Manual) Band Neutrophils % Lymphocytes % Lymphocytes % (Manual) Monocytes % Monocytes % (Manual) Eosinophils % Eosinophils % (Manual) Basophils % Basophils % (Manual) Myelocytes % (Man) Promyelocytes % (Man) Blast Cells % (Manual) Nucleated RBC % Metamyelocytes Hypochromia Platelet Estimate Polychromasia Poikilocytosis Anisocytosis Microcytosis Macrocytosis Ho Cells Sodium 130 L Potassium 4.0 Chloride 103 Carbon Dioxide 18 L Anion Gap 9 BUN 43.0 H Creatinine 0.6 Est GFR (CKD-EPI)AfAm 137.83 Est GFR (CKD-EPI)NonAf 118.92 POC Glucometer 116 Random Glucose 121 H Lactic Acid 1.7 Calcium 6.4 L* Phosphorus 2.6 Magnesium 1.5 L Total Bilirubin 0.3 AST 194 H ALT 116 H Alkaline Phosphatase 170 H Total Protein 4.7 L Albumin 1.3 L 07/03/20 11:59 WBC RBC Hgb Hct MCV MCH MCHC RDW Plt Count MPV Absolute Neuts (auto) Neutrophils % Neutrophils % (Manual) Band Neutrophils % Lymphocytes % Lymphocytes % (Manual) Monocytes % Monocytes % (Manual) Eosinophils % Eosinophils % (Manual) Basophils % Basophils % (Manual) Myelocytes % (Man) Promyelocytes % (Man) Blast Cells % (Manual) Nucleated RBC % Metamyelocytes Hypochromia Platelet Estimate Polychromasia Poikilocytosis Anisocytosis Microcytosis Macrocytosis Ho Cells Sodium Potassium Chloride Carbon Dioxide Anion Gap BUN Creatinine Est GFR (CKD-EPI)AfAm Est GFR (CKD-EPI)NonAf POC Glucometer 93 Random Glucose Lactic Acid Calcium Phosphorus Magnesium Total Bilirubin AST ALT Alkaline Phosphatase Total Protein Albumin Active Medications Generic Name Dose Route Start Last Admin Trade Name Florencioq PRN Reason Stop Dose Admin Chlorhexidine Gluconate 1 applic 07/03/20 22:00 Hibiclens For Decolonization - TP HS RAUL Heparin Sodium (Porcine) 5,000 unit 07/02/20 10:00 07/03/20 10:46 Heparin - SQ 5,000 unit BID RAUL Administration Sodium Chloride 1,000 mls @ 75 mls/hr 07/02/20 12:15 07/02/20 13:11 Normal Saline - IV 75 mls/hr ASDIR RAUL Administration Piperacillin Sod/Tazobactam 50 mls @ 100 mls/hr 07/02/20 18:00 07/03/20 10:46 Sod 3.375 gm/ Dextrose IVPB 100 mls/hr Q8H-IV RAUL Administration Protocol Vancomycin HCl 1,250 mg/ 250 mls @ 250 mls/2 hr 07/02/20 16:00 07/02/20 16:31 Dextrose IVPB 250 mls/2 hr Q24H RAUL Administration Protocol Dextrose/Sodium Chloride 1,000 mls @ 75 mls/hr 07/02/20 15:24 07/02/20 15:46 D5-1/2ns - IV 75 mls/hr ASDIR RAUL Administration Amino Acids 1,000 mls @ 42 mls/hr 07/03/20 12:15 Clinimix - IV Q24H RAUL Dextrose/Sodium Chloride 1,000 mls @ 75 mls/hr 07/03/20 12:15 D5-Ns - IV ASDIR RAUL Multivitamins/Minerals 10 ml 07/04/20 10:00 Infuvite Adult - IV DAILY RAUL Mupirocin 1 applic 07/03/20 10:00 Bactroban Ointment (For Decolonization) - NS 07/08/20 09:59 BID RAUL ASSESSMENT/PLAN: Neuro - Altered Mental Status- Most likely due to hypoglycemia. Cardiac - HTN- will hold bp meds Resp - pt has history of asthma- will give albuterol if pt has asthma - pt on currently 2L NC saturating at 100% GI - SBO - Appreciate Surgery consult - Will do NG tube PRN - WIll keep pt NPO and give IV hydration ID - Sepsis secondary UTI vs Right sided PNA - Treating via vancomycin and zosyn - ID consult appreciated Endocrine - Hypoglycemia vs refeeding syndrome - Nutirition consult appreciated who states keep daily glucose under 150gm a day - pt keeps going hypoglycemic will monitor q2hr and give more glucose if hypoglycemic and symptomatic FEN - monitor electrolytes including phosphate and magnesium possible refeeding syndrome - Hyponatremia- gave D5NS - Hypomagnesmia- gave Mag PPx - DVT- heparin 5000 units per day Visit type - Emergency Visit Emergency Visit: Yes ED Registration Date: 07/01/20 Care time: The patient presented to the Emergency Department on the above date and was hospitalized for further evaluation of their emergent condition. - New Patient This patient is new to me today: No - Critical Care Critical Care patient: Yes Total Critical Care Time (in minutes): 36 Critical Care Statement: The care of this patient involved high complexity decision making to prevent further life threatening deterioration of the patient's condition and/or to evaluate & treat vital organ system(s) failure or risk of failure. ATTENDING PHYSICIAN STATEMENT I saw and evaluated the patient. I reviewed the resident's note and discussed the case with the resident. I agree with the resident's findings and plan as documented. SUBJECTIVE: OBJECTIVE: ASSESSMENT AND PLAN:
[2020-07-03] MEDS: MUPIROCIN 2% TOPICAL OINTMENT FOR DECOLONIZATION NS SCH ×2 (13:39→21:34)
--- NOTE | 2020-07-03 14:04 | PN ---
Progress Note, Physician History of Present Illness: Pt seen and examined at bedside. She is more awake today. - Current Medication List Current Medications: Active Medications Chlorhexidine Gluconate (Hibiclens For Decolonization -) 1 applic TP HS RAUL Heparin Sodium (Porcine) (Heparin -) 5,000 unit SQ BID RAUL Last Admin: 07/03/20 10:46 Dose: 5,000 unit Documented by: Sodium Chloride (Normal Saline -) 1,000 mls @ 75 mls/hr IV ASDIR RAUL Last Admin: 07/02/20 13:11 Dose: 75 mls/hr Documented by: Piperacillin Sod/Tazobactam (Sod 3.375 gm/ Dextrose) 50 mls @ 100 mls/hr IVPB Q8H-IV RAUL; Protocol Last Admin: 07/03/20 10:46 Dose: 100 mls/hr Documented by: Vancomycin HCl 1,250 mg/ (Dextrose) 250 mls @ 250 mls/2 hr IVPB Q24H RAUL; Protocol Last Admin: 07/02/20 16:31 Dose: 250 mls/2 hr Documented by: Amino Acids (Clinimix -) 1,000 mls @ 42 mls/hr IV Q24H RAUL Dextrose/Sodium Chloride (D5-Ns -) 1,000 mls @ 75 mls/hr IV ASDIR [facility] Last Admin: 07/03/20 09:00 Dose: 75 mls/hr Documented by: Multivitamins/Minerals (Infuvite Adult -) 10 ml IV DAILY RAUL Mupirocin (Bactroban Ointment (For Decolonization) -) 1 applic NS BID RAUL Stop: 07/08/20 09:59 Last Admin: 07/03/20 13:39 Dose: 1 applic Documented by: - Objective Vital Signs: Vital Signs Temperature 97.2 F L 07/03/20 10:00 Pulse Rate 101 H 07/03/20 12:00 Respiratory Rate 24 H 07/03/20 12:00 Blood Pressure 93/65 07/03/20 12:00 O2 Sat by Pulse Oximetry (%) 100 07/03/20 12:00 Constitutional: Yes: Calm Eyes: Yes: Conjunctiva Clear HENT: Yes: Atraumatic Neck: Yes: Supple Cardiovascular: Yes: S1, S2 Respiratory: Yes: CTA Bilaterally, On Nasal O2 Gastrointestinal: Yes: Soft Genitourinary: Yes: WNL Musculoskeletal: Yes: WNL Extremities: Yes: WNL Edema: No Neurological: Yes: Oriented Psychiatric: Yes: Oriented Labs: CBC, BMP 07/03/20 05:29 07/03/20 05:52 INR, PTT INR 2.39 (0.83-1.09) H 07/01/20 15:43 Problem List - Problems (1) Hypoglycemia Code(s): E16.2 - HYPOGLYCEMIA, UNSPECIFIED (2) Sepsis Code(s): A41.9 - SEPSIS, UNSPECIFIED ORGANISM Qualifiers: Sepsis type: sepsis due to unspecified organism Sepsis acute organ dysfunction status: unspecified Qualified Code(s): A41.9 - Sepsis, unspecified organism (3) Hypoalbuminemia Code(s): E88.09 - OTH DISORDERS OF PLASMA-PROTEIN METABOLISM, NEC (4) Hyponatremia Code(s): E87.1 - HYPO-OSMOLALITY AND HYPONATREMIA Assessment/Plan Impression 1. azotemia 2. hyponatremia 3. hyperkalemia 4. hypotension 5. sepsis 6. sbo 7. uti 8. liver cirrhosis 9. hypoalbuminemia 10. etoh abuse 11. substance abuse 12. psoriasis Plan - cont normal saline - repeat labs in am - cont abx - follow cultures - monitor lytes - psych eval once she is more stable - replace mag Current Medications Generic Name Dose Route Start Last Admin Trade Name Ruben PRN Reason Stop Dose Admin Chlorhexidine Gluconate 1 applic 07/03/20 22:00 Hibiclens For Decolonization - TP HS RAUL Heparin Sodium (Porcine) 5,000 unit 07/02/20 10:00 07/03/20 10:46 Heparin - SQ 5,000 unit BID RAUL Administration Sodium Chloride 1,000 mls @ 75 mls/hr 07/02/20 12:15 07/02/20 13:11 Normal Saline - IV 75 mls/hr ASDIR RAUL Administration Piperacillin Sod/Tazobactam 50 mls @ 100 mls/hr 07/02/20 18:00 07/03/20 10:46 Sod 3.375 gm/ Dextrose IVPB 100 mls/hr Q8H-IV RAUL Administration Protocol Vancomycin HCl 1,250 mg/ 250 mls @ 250 mls/2 hr 07/02/20 16:00 07/02/20 16:31 Dextrose IVPB 250 mls/2 hr Q24H RAUL Administration Protocol Amino Acids 1,000 mls @ 42 mls/hr 07/03/20 12:15 Clinimix - IV Q24H RAUL Dextrose/Sodium Chloride 1,000 mls @ 75 mls/hr 07/03/20 12:15 07/03/20 09:00 D5-Ns - IV 75 mls/hr ASDIR RAUL Administration Multivitamins/Minerals 10 ml 07/04/20 10:00 Infuvite Adult - IV DAILY RAUL Mupirocin 1 applic 07/03/20 10:00 07/03/20 13:39 Bactroban Ointment (For Decolonization) - NS 07/08/20 09:59 1 applic BID RAUL Administration
--- NOTE | 2020-07-03 14:23 | PN ---
Progress Note, Physician History of Present Illness: still lethargic was vomiting ng in place failure to thrive - Current Medication List Current Medications: Active Medications Chlorhexidine Gluconate (Hibiclens For Decolonization -) 1 applic TP HS RAUL Heparin Sodium (Porcine) (Heparin -) 5,000 unit SQ BID RAUL Last Admin: 07/03/20 10:46 Dose: 5,000 unit Documented by: Sodium Chloride (Normal Saline -) 1,000 mls @ 75 mls/hr IV ASDIR RAUL Last Admin: 07/02/20 13:11 Dose: 75 mls/hr Documented by: Piperacillin Sod/Tazobactam (Sod 3.375 gm/ Dextrose) 50 mls @ 100 mls/hr IVPB Q8H-IV RAUL; Protocol Last Admin: 07/03/20 10:46 Dose: 100 mls/hr Documented by: Vancomycin HCl 1,250 mg/ (Dextrose) 250 mls @ 250 mls/2 hr IVPB Q24H RAUL; Protocol Last Admin: 07/02/20 16:31 Dose: 250 mls/2 hr Documented by: Amino Acids (Clinimix -) 1,000 mls @ 42 mls/hr IV Q24H RAUL Dextrose/Sodium Chloride (D5-Ns -) 1,000 mls @ 75 mls/hr IV ASDIR [facility] Last Admin: 07/03/20 09:00 Dose: 75 mls/hr Documented by: Multivitamins/Minerals (Infuvite Adult -) 10 ml IV DAILY [facility] Mupirocin (Bactroban Ointment (For Decolonization) -) 1 applic NS BID [facility] Stop: 07/08/20 09:59 Last Admin: 07/03/20 13:39 Dose: 1 applic Documented by: - Objective Vital Signs: Vital Signs Temperature 97.2 F L 07/03/20 10:00 Pulse Rate 101 H 07/03/20 12:00 Respiratory Rate 24 H 07/03/20 12:00 Blood Pressure 93/65 07/03/20 12:00 O2 Sat by Pulse Oximetry (%) 100 07/03/20 12:00 Constitutional: Yes: Other (failure to thrive) Neck: Yes: Supple Cardiovascular: Yes: S1, S2 Respiratory: Yes: Regular, CTA Bilaterally Gastrointestinal: Yes: Soft, Hypoactive Bowel Sounds, Other (ng in place) Musculoskeletal: Yes: WNL Extremities: Yes: WNL Neurological: Yes: Lethargy Labs: CBC, BMP 07/03/20 05:29 07/03/20 05:52 INR, PTT INR 2.39 (0.83-1.09) H 07/01/20 15:43 - ....Imaging Chest X-ray: Report Reviewed, Image Reviewed Cat Scan: Report Reviewed, Image Reviewed Assessment/Plan Pneumonia likely Aspiration UTI Sepsis Hyponatremia SBO resolving Alcohol/Heroin Abuse Anemia Failure to Thrive Severe Protein Calorie Malnutrition plan continue current mgmt abx nutrition awaiting finalization rest as per icu cc 40 min
[2020-07-03] MEDS ORDERED: PT OWN MED DRAWER 7, Y5N ONE (18:26)
[2020-07-03] MEDS: VANCOMYCIN HCL 1,250 MG in DEXTROSE 5%-WATER - 250 ML IVPB SCH (18:29)
[2020-07-03] MEDS: SODIUM CHLORIDE 1,000 ML IV SCH (18:30)
[2020-07-03] MEDS: AMINO ACIDS 4.25%/D5W 1,000 ML IV SCH (18:31)
[2020-07-03] MEDS: CHLORHEXIDINE GLUCONATE 4% CLEANSER FOR DECOLONIZATION TP SCH (21:34)
--- NOTE | 2020-07-03 22:34 | PN ---
Progress Note, Physician History of Present Illness: Above events noted: Hypotensive Hypoxic Hypoglycemic - Current Medication List Current Medications: Active Medications Chlorhexidine Gluconate (Hibiclens For Decolonization -) 1 applic TP HS [facility] Last Admin: 07/03/20 21:34 Dose: 1 applic Documented by: Heparin Sodium (Porcine) (Heparin -) 5,000 unit SQ BID RAUL Last Admin: 07/03/20 21:34 Dose: 5,000 unit Documented by: Sodium Chloride (Normal Saline -) 1,000 mls @ 75 mls/hr IV ASDIR RAUL Last Admin: 07/03/20 18:30 Dose: 75 mls/hr Documented by: Piperacillin Sod/Tazobactam (Sod 3.375 gm/ Dextrose) 50 mls @ 100 mls/hr IVPB Q8H-IV RAUL; Protocol Last Admin: 07/03/20 18:28 Dose: 100 mls/hr Documented by: Vancomycin HCl 1,250 mg/ (Dextrose) 250 mls @ 250 mls/2 hr IVPB Q24H [facility]; Protocol Last Admin: 07/03/20 18:29 Dose: 250 mls/2 hr Documented by: Amino Acids (Clinimix -) 1,000 mls @ 42 mls/hr IV Q24H RAUL Last Admin: 07/03/20 18:31 Dose: 42 mls/hr Documented by: Multivitamins/Minerals (Infuvite Adult -) 10 ml IV DAILY [facility] Mupirocin (Bactroban Ointment (For Decolonization) -) 1 applic NS BID [facility] Stop: 07/08/20 09:59 Last Admin: 07/03/20 21:34 Dose: 1 applic Documented by: - Objective Vital Signs: Vital Signs Temperature 95.8 F L 07/03/20 18:00 Pulse Rate 64 07/03/20 20:00 Respiratory Rate 30 H 07/03/20 20:00 Blood Pressure 85/54 L 07/03/20 20:00 O2 Sat by Pulse Oximetry (%) 98 07/03/20 20:56 Constitutional: Yes: Cachectic Cardiovascular: Yes: WNL, Regular Rate and Rhythm Respiratory: Yes: Diminished Gastrointestinal: Yes: WNL, Normal Bowel Sounds, Soft Labs: CBC, BMP 07/03/20 05:29 07/03/20 05:52 INR, PTT INR 2.39 (0.83-1.09) H 07/01/20 15:43 Problem List - Problems (1) At risk for electrolyte imbalance Assessment/Plan: Electrolytes improving Cont to monitor Code(s): Z91.89 - OT PERSONAL RISK FACTORS, NOT ELSEWHERE CLASSIFIED (2) Sepsis Assessment/Plan: Lactic acidosis Cont IVF Will bolus NS for hypotension Cont IV antibxs Blood culture/urine culture negative to date Repeat lactic acid in am As per ID Code(s): A41.9 - SEPSIS, UNSPECIFIED ORGANISM Qualifiers: Sepsis type: sepsis due to unspecified organism Sepsis acute organ dysf unction status: unspecified Qualified Code(s): A41.9 - Sepsis, unspecified organism (3) SBO (small bowel obstruction) Assessment/Plan: Surgical consult noted Cont NPO Cont IVF Monitor serial abdominal axrays Monitor hypoglycemia CT scan abd showed probable anasacra/ascites Code(s): K56.609 - UNSP INTESTNL OBST, UNSP TO PARTIAL VERSUS COMPLETE OBST (4) Respiratory failure Assessment/Plan: RLL infiltrates ?Asp pneumonia Cont IV antibxs Code(s): J96.90 - RESPIRATORY FAILURE, UNSP, UNSP W HYPOXIA OR HYPERCAPNIA (5) Liver cirrhosis, alcoholic Code(s): K70.30 - ALCOHOLIC CIRRHOSIS OF LIVER WITHOUT ASCITES (6) Hypoalbuminemia Code(s): E88.09 - OT DISORDERS OF PLASMA-PROTEIN METABOLISM, NEC (7) Substance abuse Code(s): F19.10 - OTHER PSYCHOACTIVE SUBSTANCE ABUSE, UNCOMPLICATED (8) Cachexia Code(s): R64 - CACHEXIA
[2020-07-04] MEDS ORDERED: DEXTROSE 50%-WATER - 25 GM/50 ML VIAL IVPUSH ONE ×2 (01:08→11:15)
[2020-07-04] MEDS ORDERED: DEXTROSE 5%-WATER - 50 ML IVPB ONE ×3 (01:27→17:38)
[2020-07-04] MEDS ORDERED: PIPERACILLIN/TAZOBACTAM 3.375 GM VIAL IVPB ONE ×3 (01:27→17:38)
[2020-07-04] MEDS: PIPERACILLIN/TAZOB 3.375 GM 3.375 GM in DEXTROSE 5%-WATER - 50 ML IVPB SCH ×3 (01:29→18:33)
[2020-07-04] MEDS ORDERED: ONDANSETRON 4 MG/2 ML VIAL IVPUSH ONE (02:13)
[2020-07-04] MEDS ORDERED: LORazepam 2 MG/ML SDV VIAL IM ONE (03:22)
[2020-07-04] MEDS ORDERED: LORazepam 2 MG/ML SDV VIAL IVPUSH ONE (03:31)
[2020-07-04] MEDS ORDERED: SODIUM CHLORIDE 1,000 ML IV SCH (05:36)
[2020-07-04 07:01] LABS: BASO % 0.3 % (0-2.0); EOS % 1.2 % (0-4.5); HEMATOCRIT 21.2 % (32.4-45.2); LYMPH % 0.2 % (8-40); MCH 28.2 pg (25.7-33.7); MCHC 32.8 g/dl (32.0-36.0); MEAN PLT VOLUME 7.4 fl (7.5-11.1); MONO % 0.1 % (3.8-10.2); NEUT % 98.2 % (42.8-82.8); PLATELET COUNT 203 K/MM3 (134-434); RBC 2.46 M/mm3 (3.60-5.2); RDW 14.2 % (11.6-15.6)
[2020-07-04 07:16] LABS: WHITE BLOOD COUNT 31.2 K/mm3 (4.0-10.0)
[2020-07-04 07:17] LABS: HEMOGLOBIN 6.9 GM/dL (10.7-15.3)
[2020-07-04 07:35] LABS: BILIRUBIN,TOTAL 0.5 mg/dL (0.2-1); MAGNESIUM 1.3 mg/dL (1.8-2.4); PHOSPHOROUS 1.8 mg/dL (2.5-4.9)
[2020-07-04 08:47] LABS: CALCIUM 5.7 mg/dL (8.5-10.1)
[2020-07-04] MEDS ORDERED: POTASSIUM PHOSPHATE 20 MM in SODIUM CHLORIDE 250 ML IVPB ONE (08:47)
[2020-07-04] MEDS: MUPIROCIN 2% TOPICAL OINTMENT FOR DECOLONIZATION NS SCH ×2 (10:38→22:12)
[2020-07-04 11:07] LABS: HEMATOCRIT 22.9 % (32.4-45.2); HEMOGLOBIN 7.5 GM/dL (10.7-15.3); MCH 27.9 pg (25.7-33.7); MCHC 32.9 g/dl (32.0-36.0); MEAN CELL VOLUME 84.7 fl (80-96); MEAN PLT VOLUME 7.2 fl (7.5-11.1); PLATELET COUNT 191 K/MM3 (134-434); RBC 2.71 M/mm3 (3.60-5.2); RDW 13.8 % (11.6-15.6)
[2020-07-04] MEDS ORDERED: CALCIUM GLUCONATE 10% - 1,000 MG/10 ML VIAL IVPB ONE ×2 (11:15→17:10)
[2020-07-04 11:27] LABS: ANISOCYTOSIS 1+; MACROCYTOSIS 0; PLATELET ESTIMATE NORMAL
[2020-07-04 11:30] LABS: ARTERIAL BLD GAS O2 SATURATION 95.8 mmHg (95-98); ARTERIAL BLOOD GAS BASE EXCESS -8.8 mmol/L (-2-2); ARTERIAL BLOOD GAS PO2 81.3 mmHg (80-100); ARTERIAL BLOOD GAS pH 7.359 (7.350-7.450)
[2020-07-04 11:31] LABS: ALLENS TEST POSITIVE
[2020-07-04 11:41] LABS: WHITE BLOOD COUNT 38.7 K/mm3 (4.0-10.0)
--- NOTE | 2020-07-04 11:41 | PN ---
Progress Note (short form) - Note Progress Note: Pt seen and examined. Lethargic, not responding to questioning. No issues overnight per RN notes. Vital Signs Temp 95.5 F L 07/04/20 10:00 Pulse 104 H 07/04/20 10:00 Resp 44 H 07/04/20 10:00 BP 84/58 L 07/04/20 10:00 Pulse Ox 100 07/04/20 10:00 Intake & Output 07/03/20 07/03/20 07/04/20 11:59 23:59 11:59 Intake Total 1530.5 1036 Output Total 900 500 600 Balance -900 1030.5 436 Weight 67 lb 66 lb 6.4 oz Intake: IV 1180.5 936 D5-Ns - 1,000 ml @ 75 mls 1012.5 /hr IV ASDIR RAUL Rx#: [id number] LUE#22 07/03/20 s/l 168 336 Normal Saline - 1,000 ml 600 @ 100 mls/hr IV ASDIR RAUL Rx#:[id number] IVPB 350 100 Output: Urine 900 500 600 Uribe 900 500 600 Other: Voiding Method Indwelling Catheter Indwelling Catheter Indwelling Catheter Bowel Movement Yes Yes # Bowel Movements 3 2 Height 5 ft 4 in Body Mass Index (BMI) 11.5 Weight Measurement Method Built in [facility] CBC, BMP 07/04/20 10:45 07/04/20 10:45 Gen: lethargic, opens eyes to name but doesn't respond. Resp: tachypnic on nrb cv: tachy to low 100s Abdo: soft, distended, does not appear to be ttp, hypoactive bowel sounds, no prior surgical incisions noted A/P: 34 y/o F w/ PMHx bulemia/anorexia, polysubstance abuse (ETOH, heroin), cirrhosis, HTN, psoriasis, and asthma, BIBEMS with hypoglycemia, hypotension, hypoxia, hypothermia. Found to have SBO, general surgery consulted hypothermic, tachycardic, hypotensive, tachypnic lethargic with icnreased work of breathing significantly elevated wbc as compared to yesterday, per RN pt having diarrhea-??cdiff ngt in place, output overnight not documented axr reviewed with attending polymicrobial urine culture (ecoli, pseudomonas, strep) blood culture neg -recommend r/o cdiff -continue ngt -ct A/P with oral contrast once stable -NPO -IVF -GI PPx -DVT PPx -Continue to correct elyte abnormalities -Serial abd exam & xrays -Cont ICU management -Given her poor nutritional status, she is at increased risk for tissue breakdown. -Reposition every two hours while in bed -Air mattress recommended -Use drawsheets and Trendelenburg when repositioning to reduce friction and shear -Manageincontinence via timely cleansing, use of appropriate incontinence disposables and use of barrier ointment to intact skin -Ensure adequate hydration/nutrition, supplementation per primary team -Ensure off-loading to all bony areas (heels, ankles, hips and tailbone) with Allevyn/Optifoam Above plan discussed with Dr. Naik and agrees. <Kylah Higgins - Last Filed: 07/04/20 12:13> - Note Progress Note: Attending Surgeon: I personally saw and examined the patient. My examination reveals a patient with failure to thrive. I discussed the case with the surgical PA and agree with their findings and plan of care with any exceptions as noted. ~ Brandon Naik MD, FACS <Brandon Naik - Last Filed: 07/06/20 10:29>
[2020-07-04 11:51] LABS: ALBUMIN 1.3 g/dl (3.4-5.0); BILIRUBIN,TOTAL 0.4 mg/dL (0.2-1); BLOOD UREA NITROGEN 38.2 mg/dL (7-18); CREATININE 0.4 mg/dL (0.55-1.3); POTASSIUM 3.5 mmol/L (3.5-5.1); TOT PROT 4.5 g/dl (6.4-8.2)
--- NOTE | 2020-07-04 11:51 | PN ---
Teaching Attending Note Name of Resident: Gio Howard ATTENDING PHYSICIAN STATEMENT I saw and evaluated the patient. I reviewed the resident's note and discussed the case with the resident. I agree with the resident's findings and plan as documented. SUBJECTIVE: Pt seen and examined in the ICU. More awake today but tachypneic, now on NRB. OBJECTIVE: Vital Signs Period Temp Pulse Resp BP Sys/Campbell Pulse Ox Last 24 Hr 95.1 F-97 F 64-116 24-44 78-101/50-86 98-100 Intake & Output 07/01/20 07/02/20 07/03/20 07/04/20 23:59 23:59 23:59 23:59 Intake Total 1530.5 1036 Output Total 1400 600 Balance 130.5 436 Weight 27.216 kg 27.216 kg 30.391 kg 30.119 kg Gen: tachypneic on NRB Heart: RRR Lung: decreased breath sounds at the bases Abd: soft, nontender Ext: no edema CBC, BMP 07/04/20 10:45 Active Medications Chlorhexidine Gluconate (Hibiclens For Decolonization -) 1 applic TP HS RAUL Last Admin: 07/03/20 21:34 Dose: 1 applic Documented by: Heparin Sodium (Porcine) (Heparin -) 5,000 unit SQ BID RAUL Last Admin: 07/03/20 21:34 Dose: 5,000 unit Documented by: Piperacillin Sod/Tazobactam (Sod 3.375 gm/ Dextrose) 50 mls @ 100 mls/hr IVPB Q8H-IV RAUL; Protocol Last Admin: 07/04/20 10:38 Dose: 100 mls/hr Documented by: Vancomycin HCl 1,250 mg/ (Dextrose) 250 mls @ 250 mls/2 hr IVPB Q24H RAUL; Protocol Last Admin: 07/03/20 18:29 Dose: 250 mls/2 hr Documented by: Amino Acids (Clinimix -) 1,000 mls @ 42 mls/hr IV Q24H RAUL Last Admin: 07/03/20 18:31 Dose: 42 mls/hr Documented by: Sodium Chloride (Normal Saline -) 1,000 mls @ 100 mls/hr IV ASDIR RAUL Last Admin: 07/04/20 06:36 Dose: 100 mls/hr Documented by: Potassium Phosphate 30 mm/ (Sodium Chloride) 260 mls @ 43.333 mls/hr IVPB ONCE ONE Stop: 07/04/20 15:30 Multivitamins/Minerals (Infuvite Adult -) 10 ml IV DAILY RAUL Mupirocin (Bactroban Ointment (For Decolonization) -) 1 applic NS BID RAUL Stop: 07/08/20 09:59 Last Admin: 07/04/20 10:38 Dose: 1 applic Documented by: ASSESSMENT AND PLAN: Acute Hypoxic Respiratory Failure Pneumonia likely Aspiration UTI Sepsis Hyponatremia Small Bowel Obstruction Alcohol/Heroin Abuse Anemia Failure to Thrive Severe Protein Calorie Malnutrition - check ABG - may need intubation - continue antibiotics - f/u cultures - O2 to keep SpO2 >90% - IVF - monitor lytes - enteral feeds - DVT prophylaxis critical care time spent in reviewing chart, evaluating patient and formulating plan 35 min
[2020-07-04 12:14] LABS: CALCIUM 6.1 mg/dL (8.5-10.1)
[2020-07-04] MEDS: DEXTROSE 5%-NORMAL SALINE 1,000 ML IV SCH (12:30)
[2020-07-04 12:36] LABS: ANISOCYTOSIS 0; MACROCYTOSIS 0; PLATELET ESTIMATE NORMAL
--- NOTE | 2020-07-04 12:45 | PN ---
Progress Note, Physician History of Present Illness: Pt seen and examined at bedside. SHe is lethargic. - Current Medication List Current Medications: Active Medications Chlorhexidine Gluconate (Hibiclens For Decolonization -) 1 applic TP HS RAUL Last Admin: 07/03/20 21:34 Dose: 1 applic Documented by: Heparin Sodium (Porcine) (Heparin -) 5,000 unit SQ BID RAUL Last Admin: 07/03/20 21:34 Dose: 5,000 unit Documented by: Piperacillin Sod/Tazobactam (Sod 3.375 gm/ Dextrose) 50 mls @ 100 mls/hr IVPB Q8H-IV RAUL; Protocol Last Admin: 07/04/20 10:38 Dose: 100 mls/hr Documented by: Vancomycin HCl 1,250 mg/ (Dextrose) 250 mls @ 250 mls/2 hr IVPB Q24H RAUL; Protocol Last Admin: 07/03/20 18:29 Dose: 250 mls/2 hr Documented by: Amino Acids (Clinimix -) 1,000 mls @ 42 mls/hr IV Q24H RAUL Last Admin: 07/03/20 18:31 Dose: 42 mls/hr Documented by: Sodium Chloride (Normal Saline -) 1,000 mls @ 100 mls/hr IV ASDIR [facility] Last Admin: 07/04/20 06:36 Dose: 100 mls/hr Documented by: Potassium Phosphate 30 mm/ (Sodium Chloride) 260 mls @ 43.333 mls/hr IVPB ONCE ONE Stop: 07/04/20 15:30 Dextrose/Sodium Chloride (D5-Ns -) 1,000 mls @ 75 mls/hr IV ASDIR [facility] Multivitamins/Minerals (Infuvite Adult -) 10 ml IV DAILY [facility] Mupirocin (Bactroban Ointment (For Decolonization) -) 1 applic NS BID [facility] Stop: 07/08/20 09:59 Last Admin: 07/04/20 10:38 Dose: 1 applic Documented by: - Objective Vital Signs: Vital Signs Temperature 95.5 F L 07/04/20 10:00 Pulse Rate 122 H 07/04/20 12:00 Respiratory Rate 41 H 07/04/20 12:00 Blood Pressure 85/64 L 07/04/20 12:00 O2 Sat by Pulse Oximetry (%) 100 07/04/20 12:00 Constitutional: Yes: Moderate Distress HENT: Yes: Atraumatic Cardiovascular: Yes: S1, S2 Respiratory: Yes: On Venti-Mask Gastrointestinal: Yes: Soft Genitourinary: Yes: Uribe Present Musculoskeletal: Yes: Muscle Weakness Edema: No Integumentary: Yes: WNL Neurological: Yes: Confusion Labs: CBC, BMP 07/04/20 10:45 07/04/20 10:45 INR, PTT INR 2.39 (0.83-1.09) H 07/01/20 15:43 - ....Imaging Chest X-ray: Report Reviewed Problem List - Problems (1) Hypoglycemia Code(s): E16.2 - HYPOGLYCEMIA, UNSPECIFIED (2) Sepsis Code(s): A41.9 - SEPSIS, UNSPECIFIED ORGANISM Qualifiers: Sepsis type: sepsis due to unspecified organism Sepsis acute organ dysfunction status: unspecified Qualified Code(s): A41.9 - Sepsis, unspecified organism (3) Hypoalbuminemia Code(s): E88.09 - OTH DISORDERS OF PLASMA-PROTEIN METABOLISM, NEC (4) Hyponatremia Code(s): E87.1 - HYPO-OSMOLALITY AND HYPONATREMIA Assessment/Plan Current Medications Generic Name Dose Route Start Last Admin Trade Name Freq PRN Reason Stop Dose Admin Chlorhexidine Gluconate 1 applic 07/03/20 22:00 07/03/20 21:34 Hibiclens For Decolonization - TP 1 applic HS RAUL Administration Heparin Sodium (Porcine) 5,000 unit 07/02/20 10:00 07/03/20 21:34 Heparin - SQ 5,000 unit BID RAUL Administration Piperacillin Sod/Tazobactam 50 mls @ 100 mls/hr 07/02/20 18:00 07/04/20 10:38 Sod 3.375 gm/ Dextrose IVPB 100 mls/hr Q8H-IV RAUL Administration Protocol Vancomycin HCl 1,250 mg/ 250 mls @ 250 mls/2 hr 07/02/20 16:00 07/03/20 18:29 Dextrose IVPB 250 mls/2 hr Q24H RAUL Administration Protocol Amino Acids 1,000 mls @ 42 mls/hr 07/03/20 12:15 07/03/20 18:31 Clinimix - IV 42 mls/hr Q24H RAUL Administration Sodium Chloride 1,000 mls @ 100 mls/hr 07/04/20 05:36 07/04/20 06:36 Normal Saline - IV 100 mls/hr ASDIR RAUL Administration Potassium Phosphate 30 mm/ 260 mls @ 43.333 mls/hr 07/04/20 09:31 Sodium Chloride IVPB 07/04/20 15:30 ONCE ONE 30 MM/6 HR Dextrose/Sodium Chloride 1,000 mls @ 75 mls/hr 07/04/20 12:30 D5-Ns - IV ASDIR RAUL Multivitamins/Minerals 10 ml 07/04/20 10:00 Infuvite Adult - IV DAILY RAUL Mupirocin 1 applic 07/03/20 10:00 07/04/20 10:38 Bactroban Ointment (For Decolonization) - NS 07/08/20 09:59 1 applic BID RAUL Administration Impression 1. azotemia 2. hyponatremia 3. hyperkalemia 4. hypotension 5. sepsis 6. sbo 7. uti 8. liver cirrhosis 9. hypoalbuminemia 10. etoh abuse 11. substance abuse 12. psoriasis Plan - repeat labs improved - cont dextrose - cont d5ns - monitor lytes closely - am labs likely drawn close to IV - cont ICU care - psych eval once she is more stable
[2020-07-04] MEDS: HEPARIN NA (PORCINE) 5,000 UNITS/ML 1ML VIAL SQ SCH ×2 (12:48→22:12)
[2020-07-04] MEDS ORDERED: PT OWN MED DRAWER 7, Y5N ONE ×2 (14:01→17:11)
--- NOTE | 2020-07-04 14:02 | CON.GI ---
Consult Consult Specialty:: GI - History of Present Illness History of Present Illness: 34 y/o F with PMH of cirrhosis, polysubstance abuse alcohol abuse, protein malnutriotn, ascitis was admitted with Urosepsis, Pneumonia complicated by Respiratory failure and hypotension. Patient Liver enzymes was noted to be 30 times normal. - Past Medical History [employer]: Yes: Other (mild encephalopathy) Gastrointestinal: Yes: Other (GERD) Hepatobiliary: Yes: Cirrhosis, Other (Elevated LFT's) ...LMP: 02/01/20 ...: No Psych: Yes: Addictions - Alcohol/Substance Use Hx Alcohol Use: No - Smoking History Smoking history: Current every day smoker Have you smoked in the past 12 months: Yes Aproximately how many cigarettes per day: 3 - Social History Usual Living Arrangement: With Parent (clean and neat) Home Medications - Allergies Allergies/Adverse Reactions: Allergies Allergy/AdvReac Type Severity Reaction Status Date / Time No Known Allergies Allergy Verified 07/01/20 14:36 - Home Medications Home Medications: Ambulatory Orders Sulfamethoxazole/Trimethoprim [Bactrim Ds -] 1 tab PO BID #14 tablet 06/26/20 Family Medical History Family History: Unable to Obtain Physical Exam-GI Vital Signs: Vital Signs Temperature 95.5 F L 07/04/20 10:00 Pulse Rate 122 H 07/04/20 12:00 Respiratory Rate 41 H 07/04/20 12:00 Blood Pressure 85/64 L 07/04/20 12:00 O2 Sat by Pulse Oximetry (%) 98 07/04/20 12:45 Constitutional: Yes: Cachectic, Other (cachectic,on a nonrebreather,NGT minimal drainage) HENT: Yes: Other (severe bitemporal wasting) Cardiovascular: Yes: Regular Rate and Rhythm Respiratory: Yes: Diminished ...Palpate: Yes: Soft. No: Firm/Rigid, Guarding, Hepatomegaly, Pulsatile Mass, Splenomegaly, Tenderness ...Percussion: Yes: Tympanitic Labs: CBC, BMP 07/04/20 10:45 07/04/20 10:45 INR, PTT INR 2.39 (0.83-1.09) H 07/01/20 15:43 CBC,CMP WBC 38.7 K/mm3 (4.0-10.0) H* 07/04/20 10:45 RBC 2.71 M/mm3 (3.60-5.2) L 07/04/20 10:45 Hgb 7.5 GM/dL (10.7-15.3) L 07/04/20 10:45 Hct 22.9 % (32.4-45.2) L 07/04/20 10:45 MCV 84.7 fl (80-96) 07/04/20 10:45 MCH 27.9 pg (25.7-33.7) 07/04/20 10:45 MCHC 32.9 g/dl (32.0-36.0) 07/04/20 10:45 RDW 13.8 % (11.6-15.6) 07/04/20 10:45 Plt Count 191 K/MM3 (134-434) 07/04/20 10:45 MPV 7.2 fl (7.5-11.1) L 07/04/20 10:45 Absolute Neuts (auto) 30.7 K/mm3 (1.5-8.0) H 07/04/20 06:25 Total Counted 100 07/04/20 10:45 Neutrophils % No Result Required. 07/04/20 10:45 Neutrophils % (Manual) 71.0 % (42.8-82.8) 07/04/20 10:45 Band Neutrophils % 26.0 % 07/04/20 10:45 Lymphocytes % No Result Required. 07/04/20 10:45 Lymphocytes % (Manual) 0.0 % (8-40) L 07/04/20 10:45 Monocytes % 0.1 % (3.8-10.2) L 07/04/20 06:25 Monocytes % (Manual) 0 % (3.8-10.2) L 07/04/20 10:45 Eosinophils % 1.2 % (0-4.5) 07/04/20 06:25 Eosinophils % (Manual) 3.0 % (0-4.5) 07/04/20 10:45 Basophils % 0.3 % (0-2.0) 07/04/20 06:25 Basophils % (Manual) 0.0 % (0-2.0) 07/04/20 10:45 Myelocytes % (Man) 0 % (0-2) 07/04/20 10:45 Promyelocytes % (Man) 0 % (0-2) 07/04/20 10:45 Blast Cells % (Manual) 0 % (0-0) 07/04/20 10:45 Nucleated RBC % 0 % (0-0) 07/04/20 10:45 Metamyelocytes 0 % (0-2) 07/04/20 10:45 Hypochromia 0 07/04/20 10:45 Platelet Estimate Normal 07/04/20 10:45 Platelet Comment No clotting detected 07/02/20 00:54 Platelet Comment No clumping noted 07/02/20 00:54 Polychromasia 0 07/04/20 10:45 Poikilocytosis 2+ 07/04/20 10:45 Anisocytosis 0 07/04/20 10:45 Microcytosis 0 07/04/20 10:45 Macrocytosis 0 07/04/20 10:45 Tear Drop Cells 1+ 07/02/20 06:50 Ovalocytes 1+ 07/02/20 06:50 [place] Cells 2+ 07/03/20 05:29 Fragmented RBCs Occasional 07/02/20 00:54 Schistocytes 2+ 07/02/20 06:50 Sodium 128 mmol/L (136-145) L 07/04/20 10:45 Potassium 3.5 mmol/L (3.5-5.1) 07/04/20 10:45 Chloride 103 mmol/L (98-107) 07/04/20 10:45 Carbon Dioxide 16 mmol/L (21-32) L 07/04/20 10:45 Anion Gap 9 MMOL/L (8-16) 07/04/20 10:45 BUN 38.2 mg/dL (7-18) H 07/04/20 10:45 Creatinine 0.4 mg/dL (0.55-1.3) L 07/04/20 10:45 Est GFR (CKD-EPI)AfAm 157.50 07/04/20 10:45 Est GFR (CKD-EPI)NonAf 135.89 07/04/20 10:45 POC Glucometer 120 UNITS (80-120) 07/04/20 14:18 Random Glucose 30 mg/dL (74-106) L* 07/04/20 10:45 Lactic Acid 1.7 mmol/L (0.4-2.0) 07/03/20 05:29 Calcium 6.1 mg/dL (8.5-10.1) L* 07/04/20 10:45 Phosphorus 1.9 mg/dL (2.5-4.9) L 07/04/20 10:45 Magnesium 1.4 mg/dL (1.8-2.4) L 07/04/20 10:45 Total Bilirubin 0.4 mg/dL (0.2-1) 07/04/20 10:45 AST 908 U/L (15-37) H 07/04/20 10:45 ALT 462 U/L (13-61) H 07/04/20 10:45 Alkaline Phosphatase 659 U/L (45-117) H 07/04/20 10:45 Creatine Kinase 325 U/L (26-192) H 07/04/20 06:25 Creatine Kinase Index 5.2 % (0.0-5.0) H 07/04/20 06:25 CK-MB (CK-2) 17.0 ng/mL (0.5-3.6) H 07/04/20 06:25 Troponin I < 0.02 ng/ml (0.00-0.05) 07/01/20 14:50 B-Natriuretic Peptide 69293.8 pg/ml (5-125) H 07/04/20 06:25 Total Protein 4.5 g/dl (6.4-8.2) L 07/04/20 10:45 Albumin 1.3 g/dl (3.4-5.0) L 07/04/20 10:45 Vitamin B12 2423 pg/ml (193-986) H 07/04/20 06:25 Serum Folate 10 ng/mL (3.1-17.5) 07/04/20 06:25 Serum , Qual Negative 07/01/20 17:00 Problem List - Problems (1) Ischemic hepatitis Assessment/Plan: patients severe hepatocellular injury is most likely secondary to ischemic hepatitis brought about by Sepsis R> 1)Keep well hydrated 2)continue antibiotics The patients liver enzymes will start trending downwards once sepsis is controlled which results in better perfusion of the liver 3) serial LFTS Code(s): K75.9 - INFLAMMATORY LIVER DISEASE, UNSPECIFIED
--- NOTE | 2020-07-04 14:31 | PN ---
Progress Note, Physician History of Present Illness: GETTING INTUBATED - Current Medication List Current Medications: Active Medications Chlorhexidine Gluconate (Hibiclens For Decolonization -) 1 applic TP HS RAUL Last Admin: 07/03/20 21:34 Dose: 1 applic Documented by: Heparin Sodium (Porcine) (Heparin -) 5,000 unit SQ BID RAUL Last Admin: 07/04/20 12:48 Dose: 5,000 unit Documented by: Piperacillin Sod/Tazobactam (Sod 3.375 gm/ Dextrose) 50 mls @ 100 mls/hr IVPB Q8H-IV RAUL; Protocol Last Admin: 07/04/20 10:38 Dose: 100 mls/hr Documented by: Vancomycin HCl 1,250 mg/ (Dextrose) 250 mls @ 250 mls/2 hr IVPB Q24H RAUL; Protocol Last Admin: 07/03/20 18:29 Dose: 250 mls/2 hr Documented by: Amino Acids (Clinimix -) 1,000 mls @ 42 mls/hr IV Q24H RAUL Last Admin: 07/03/20 18:31 Dose: 42 mls/hr Documented by: Sodium Chloride (Normal Saline -) 1,000 mls @ 100 mls/hr IV ASDIR [facility]UL Last Admin: 07/04/20 06:36 Dose: 100 mls/hr Documented by: Potassium Phosphate 30 mm/ (Sodium Chloride) 260 mls @ 43.333 mls/hr IVPB ONCE ONE Stop: 07/04/20 15:30 Dextrose/Sodium Chloride (D5-Ns -) 1,000 mls @ 75 mls/hr IV ASDIR [facility] Last Admin: 07/04/20 12:30 Dose: 75 mls/hr Documented by: Multivitamins/Minerals (Infuvite Adult -) 10 ml IV DAILY [facility] Mupirocin (Bactroban Ointment (For Decolonization) -) 1 applic NS BID RAUL Stop: 07/08/20 09:59 Last Admin: 07/04/20 10:38 Dose: 1 applic Documented by: - Objective Vital Signs: Vital Signs Temperature 95.5 F L 07/04/20 10:00 Pulse Rate 122 H 07/04/20 12:00 Respiratory Rate 41 H 07/04/20 12:00 Blood Pressure 85/64 L 07/04/20 12:00 O2 Sat by Pulse Oximetry (%) 98 09/02/20 12:45 Constitutional: Yes: No Distress HENT: Yes: Atraumatic Neck: Yes: Supple Cardiovascular: Yes: Regular Rate and Rhythm Respiratory: Yes: Rhonchi Gastrointestinal: Yes: Hypoactive Bowel Sounds Extremities: Yes: WNL Neurological: Yes: Lethargy Labs: CBC, BMP 07/04/20 10:45 07/04/20 10:45 INR, PTT INR 2.39 (0.83-1.09) H 07/01/20 15:43 Problem List - Problems (1) At risk for electrolyte imbalance Assessment/Plan: MONITOR AND REPLACE Code(s): Z91.89 - OT PERSONAL RISK FACTORS, NOT ELSEWHERE CLASSIFIED (2) SBO (small bowel obstruction) Assessment/Plan: NPO Code(s): K56.609 - UNSP INTESTNL OBST, UNSP TO PARTIAL VERSUS COMPLETE OBST (3) Sepsis Assessment/Plan: ON IV ABX CXS NOTED ID ON BOARD Code(s): A41.9 - SEPSIS, UNSPECIFIED ORGANISM Qualifiers: Sepsis type: sepsis due to unspecified organism Sepsis acute organ dysfunction status: unspecified Qualified Code(s): A41.9 - Sepsis, unspecified organism (4) Alcoholic liver damage Code(s): K70.9 - ALCOHOLIC LIVER DISEASE, UNSPECIFIED (5) Hypoalbuminemia Code(s): E88.09 - OTH DISORDERS OF PLASMA-PROTEIN METABOLISM, NEC (6) Hyponatremia Code(s): E87.1 - HYPO-OSMOLALITY AND HYPONATREMIA (7) Liver cirrhosis, alcoholic Code(s): K70.30 - ALCOHOLIC CIRRHOSIS OF LIVER WITHOUT ASCITES (8) Ischemic hepatitis Code(s): K75.9 - INFLAMMATORY LIVER DISEASE, UNSPECIFIED (9) Respiratory failure Assessment/Plan: INTUBATED AND SEDATED NOW Code(s): J96.90 - RESPIRATORY FAILURE, UNSP, UNSP W HYPOXIA OR HYPERCAPNIA (10) UTI (urinary tract infection) Assessment/Plan: SEPSIS ON IV ABX Code(s): N39.0 - URINARY TRACT INFECTION, SITE NOT SPECIFIED Qualifiers: Urinary tract infection type: site unspecified Hematuria presence: with hematuria Qualified Code(s): N39.0 - Urinary tract infection, site not specified; R31.9 - Hematuria, unspecified (11) Elevated LFTs Assessment/Plan: SEPSIS , ISCHEMIC TREAT SEPSIS AND HOPEFULLY LFTS WILL TREND DOWN Code(s): R79.89 - OTHER SPECIFIED ABNORMAL FINDINGS OF BLOOD CHEMISTRY Assessment/Plan COVERING FOR DR FOREMAN TODAY SHE IS AWAE OF PATIENTS CONDITION ICU CC TIME 35 MIN
[2020-07-04 15:10] LABS: MAGNESIUM 1.4 mg/dL (1.8-2.4); PHOSPHOROUS 1.9 mg/dL (2.5-4.9)
[2020-07-04 15:25] LABS: POTASSIUM 3.4 mmol/L (3.5-5.1)
[2020-07-04] MEDS: AMINO ACIDS 4.25%/D5W 1,000 ML IV SCH (15:33)
[2020-07-04] MEDS: MULTIVIT INJ. ADULT COMBO WITH VIT K 1 COMBO 10 ML VIAL IV SCH (15:34)
[2020-07-04] MEDS: POTASSIUM PHOSPHATE 30 MM in SODIUM CHLORIDE 250 ML IVPB ONE ×2 (15:36→15:44)
[2020-07-04] MEDS ORDERED: RAPID SEQUENCE INTUBATION KIT NR ONE (15:48)
[2020-07-04 15:58] LABS: ALBUMIN 1.3 g/dl (3.4-5.0); BLOOD UREA NITROGEN 37.3 mg/dL (7-18); CREATININE 0.5 mg/dL (0.55-1.3); N-TERMINAL BNP 21136.8 pg/ml (5-125); TOT PROT 4.3 g/dl (6.4-8.2)
[2020-07-04] MEDS ORDERED: FENTANYL NS IVPB 500 MCG/100 ML BAG IVPB SCH (16:24)
[2020-07-04] MEDS: FENTANYL NS IVPB 500 MCG/100 ML BAG IVPB SCH (16:50)
[2020-07-04] MEDS ORDERED: MAGNESIUM SULF 50% (8.12 MEQ/2 ML-1 GM VIAL) IVPB ONE (17:09)
--- NOTE | 2020-07-04 17:11 | PN ---
Progress Note (short form) - Note Progress Note: Attending Surgeon Seen in f/u in ICU; appears agonal on ventilatory support abdo-tense; not tender and w/o evidence of an acute surgical abdomen; fluid wave is present labs and imaging noted IMP: sepsis of urinary tract origin and pulmonary origin/protein calorie ma lnutrtion and # medical co-mobidities. PLAN: Suggest NGT to LCS; consider CT scan a/p w/oral contrast; no indication for surgical intervention at this time; goals of care should be discussed w/next of kin. Brandon Naik MD FACS
[2020-07-04] MEDS ORDERED: NAPH,MB-DB/K PH,MBDB POWDER PACKET PO ONE (17:13)
[2020-07-04] MEDS: VANCOMYCIN HCL 1,250 MG in DEXTROSE 5%-WATER - 250 ML IVPB SCH (17:15)
--- NOTE | 2020-07-04 17:18 | PROC ---
Intubation - Intubation Reason for Intubation: Respiratory Insufficiency (Xray murphy pt tube is in place ) Time of Intubation: 16:00 Intubation Method: orotracheal Blade used: Glidescope Tube Size (cm): 7.5 Tube position @ lip (cm): 20 Tube position confirmed by: Direct visualization Breath Sounds after Intubation: equal Post Intubation Xray: Yes
--- NOTE | 2020-07-04 17:18 | PN ---
Physical Exam: SUBJECTIVE: Patient seen and examined minimally arousable at baseline and now intubated today. OBJECTIVE: GENERAL: Awake, alert, and oriented to person HEAD: No signs of trauma, normocephalic, atraumatic EYES: PERRLA, EOMI, sclera anicteric, conjunctiva clear ENT: Auricles normal inspection, hearing grossly normal, nares patent NECK: Normal ROM, supple, no lymphadenopathy, JVD, or masses LUNGS: dec breath sounds at bilateral bases HEART: Regular rate and rhythm, normal S1 and S2, no murmurs, rubs or gallops, peripheral pulses normal and equal bilaterally. ABDOMEN: Soft, nontender, normoactive bowel sounds. No guarding, no rebound. No masses EXTREMITIES : cachectic NEUROLOGICAL: Cranial nerves II through XII grossly intact. Normal speech, SKIN:Cachectic Vital Signs Period Temp Pulse Resp BP Sys/Campbell Pulse Ox Last 24 Hr 95.1 F-97.8 F 64-122 30-45 78-100/50-86 98-100 Laboratory Results - last 24 hr 07/03/20 07/03/20 07/03/20 18:59 19:56 22:08 WBC RBC Hgb Hct MCV MCH MCHC RDW Plt Count MPV Absolute Neuts (auto) Total Counted Neutrophils % Neutrophils % (Manual) Band Neutrophils % Lymphocytes % Lymphocytes % (Manual) Monocytes % Monocytes % (Manual) Eosinophils % Eosinophils % (Manual) Basophils % Basophils % (Manual) Myelocytes % (Man) Promyelocytes % (Man) Blast Cells % (Manual) Nucleated RBC % Metamyelocytes Hypochromia Platelet Estimate Polychromasia Poikilocytosis Anisocytosis Microcytosis Macrocytosis Anticoagulation Therapy Puncture Site Patient Temperature ABG pH ABG pCO2 ABG pO2 ABG HCO3 ABG O2 Sat (Measured) ABG O2 Content ABG Base Excess Yandel Test Patient On Oxygen O2 Delivery Device Oxygen Flow Rate Vent Mode Vent Rate Mechanical Rate PEEP Pressure Support Vent Sodium Potassium Chloride Carbon Dioxide Anion Gap BUN Creatinine Est GFR (CKD-EPI)AfAm Est GFR (CKD-EPI)NonAf POC Glucometer 52 80 83 Random Glucose Calcium Phosphorus Magnesium Total Bilirubin AST ALT Alkaline Phosphatase Creatine Kinase Creatine Kinase Index CK-MB (CK-2) B-Natriuretic Peptide Total Protein Albumin Vitamin B12 Serum Folate Blood Type Antibody Screen Crossmatch 07/04/20 07/04/20 07/04/20 00:06 01:04 02:14 WBC RBC Hgb Hct MCV MCH MCHC RDW Plt Count MPV Absolute Neuts (auto) Total Counted Neutrophils % Neutrophils % (Manual) Band Neutrophils % Lymphocytes % Lymphocytes % (Manual) Monocytes % Monocytes % (Manual) Eosinophils % Eosinophils % (Manual) Basophils % Basophils % (Manual) Myelocytes % (Man) Promyelocytes % (Man) Blast Cells % (Manual) Nucleated RBC % Metamyelocytes Hypochromia Platelet Estimate Polychromasia Poikilocytosis Anisocytosis Microcytosis Macrocytosis Anticoagulation Therapy Puncture Site Patient Temperature ABG pH ABG pCO2 ABG pO2 ABG HCO3 ABG O2 Sat (Measured) ABG O2 Content ABG Base Excess Yandel Test Patient On Oxygen O2 Delivery Device Oxygen Flow Rate Vent Mode Vent Rate Mechanical Rate PEEP Pressure Support Vent Sodium Potassium Chloride Carbon Dioxide Anion Gap BUN Creatinine Est GFR (CKD-EPI)AfAm Est GFR (CKD-EPI)NonAf POC Glucometer 58 46 209 Random Glucose Calcium Phosphorus Magnesium Total Bilirubin AST ALT Alkaline Phosphatase Creatine Kinase Creatine Kinase Index CK-MB (CK-2) B-Natriuretic Peptide Total Protein Albumin Vitamin B12 Serum Folate Blood Type Antibody Screen Crossmatch 07/04/20 07/04/20 07/04/20 04:01 06:12 06:25 WBC RBC Hgb Hct MCV MCH MCHC RDW Plt Count MPV Absolute Neuts (auto) Total Counted Neutrophils % Neutrophils % (Manual) Band Neutrophils % Lymphocytes % Lymphocytes % (Manual) Monocytes % Monocytes % (Manual) Eosinophils % Eosinophils % (Manual) Basophils % Basophils % (Manual) Myelocytes % (Man) Promyelocytes % (Man) Blast Cells % (Manual) Nucleated RBC % Metamyelocytes Hypochromia Platelet Estimate Polychromasia Poikilocytosis Anisocytosis Microcytosis Macrocytosis Anticoagulation Therapy Puncture Site Patient Temperature ABG pH ABG pCO2 ABG pO2 ABG HCO3 ABG O2 Sat (Measured) ABG O2 Content ABG Base Excess Yandel Test Patient On Oxygen O2 Delivery Device Oxygen Flow Rate Vent Mode Vent Rate Mechanical Rate PEEP Pressure Support Vent Sodium 119 L Potassium 3.4 L Chloride 92 L Carbon Dioxide 14 L Anion Gap 14 BUN 37.3 H Creatinine 0.5 L Est GFR (CKD-EPI)AfAm 146.35 Est GFR (CKD-EPI)NonAf 126.27 POC Glucometer 127 83 Random Glucose 359 H Calcium 5.7 L* Phosphorus 1.8 L Magnesium 1.3 L Total Bilirubin 0.5 AST 1129 H ALT 484 H Alkaline Phosphatase 643 H Creatine Kinase 325 H Creatine Kinase Index 5.2 H CK-MB (CK-2) 17.0 H B-Natriuretic Peptide 52081.8 H Total Protein 4.3 L Albumin 1.3 L Vitamin B12 2423 H Serum Folate 10 Blood Type Antibody Screen Crossmatch 07/04/20 07/04/20 07/04/20 06:25 07:51 08:34 WBC 31.2 H* RBC 2.46 L Hgb 6.9 L* Hct 21.2 L MCV 86.0 MCH 28.2 MCHC 32.8 RDW 14.2 Plt Count 203 MPV 7.4 L Absolute Neuts (auto) 30.7 H Total Counted Neutrophils % 98.2 H Neutrophils % (Manual) 76.2 Band Neutrophils % 21.9 Lymphocytes % 0.2 L Lymphocytes % (Manual) 0.0 L Monocytes % 0.1 L Monocytes % (Manual) 0 L Eosinophils % 1.2 Eosinophils % (Manual) 1.9 D Basophils % 0.3 Basophils % (Manual) 0.0 Myelocytes % (Man) 0 Promyelocytes % (Man) 0 Blast Cells % (Manual) 0 Nucleated RBC % 0 Metamyelocytes 0 Hypochromia 0 Platelet Estimate Normal Polychromasia 0 Poikilocytosis 0 Anisocytosis 1+ Microcytosis 0 Macrocytosis 0 Anticoagulation Therapy Puncture Site Patient Temperature ABG pH ABG pCO2 ABG pO2 ABG HCO3 ABG O2 Sat (Measured) ABG O2 Content ABG Base Excess Yandel Test Patient On Oxygen O2 Delivery Device Oxygen Flow Rate Vent Mode Vent Rate Mechanical Rate PEEP Pressure Support Vent Sodium Potassium Chloride Carbon Dioxide Anion Gap BUN Creatinine Est GFR (CKD-EPI)AfAm Est GFR (CKD-EPI)NonAf POC Glucometer 63 64 Random Glucose Calcium Phosphorus Magnesium Total Bilirubin AST ALT Alkaline Phosphatase Creatine Kinase Creatine Kinase Index CK-MB (CK-2) B-Natriuretic Peptide Total Protein Albumin Vitamin B12 Serum Folate Blood Type Antibody Screen Crossmatch 07/04/20 07/04/20 07/04/20 10:45 10:45 10:45 WBC 38.7 H* RBC 2.71 L Hgb 7.5 L Hct 22.9 L MCV 84.7 MCH 27.9 MCHC 32.9 RDW 13.8 Plt Count 191 MPV 7.2 L Absolute Neuts (auto) Total Counted 100 Neutrophils % No Result Required. Neutrophils % (Manual) 71.0 Band Neutrophils % 26.0 Lymphocytes % No Result Required. Lymphocytes % (Manual) 0.0 L Monocytes % Monocytes % (Manual) 0 L Eosinophils % Eosinophils % (Manual) 3.0 Basophils % Basophils % (Manual) 0.0 Myelocytes % (Man) 0 Promyelocytes % (Man) 0 Blast Cells % (Manual) 0 Nucleated RBC % 0 Metamyelocytes 0 Hypochromia 0 Platelet Estimate Normal Polychromasia 0 Poikilocytosis 2+ Anisocytosis 0 Microcytosis 0 Macrocytosis 0 Anticoagulation Therapy Puncture Site Patient Temperature ABG pH ABG pCO2 ABG pO2 ABG HCO3 ABG O2 Sat (Measured) ABG O2 Content ABG Base Excess Yandel Test Patient On Oxygen O2 Delivery Device Oxygen Flow Rate Vent Mode Vent Rate Mechanical Rate PEEP Pressure Support Vent Sodium 128 L Potassium 3.5 Chloride 103 Carbon Dioxide 16 L Anion Gap 9 BUN 38.2 H Creatinine 0.4 L Est GFR (CKD-EPI)AfAm 157.50 Est GFR (CKD-EPI)NonAf 135.89 POC Glucometer Random Glucose 30 L* Calcium 6.1 L* Phosphorus 1.9 L Magnesium 1.4 L Total Bilirubin 0.4 AST 908 H ALT 462 H Alkaline Phosphatase 659 H Creatine Kinase Creatine Kinase Index CK-MB (CK-2) B-Natriuretic Peptide Total Protein 4.5 L Albumin 1.3 L Vitamin B12 Serum Folate Blood Type O POSITIVE Antibody Screen Negative Crossmatch See Detail 07/04/20 07/04/20 07/04/20 10:49 10:51 11:10 WBC RBC Hgb Hct MCV MCH MCHC RDW Plt Count MPV Absolute Neuts (auto) Total Counted Neutrophils % Neutrophils % (Manual) Band Neutrophils % Lymphocytes % Lymphocytes % (Manual) Monocytes % Monocytes % (Manual) Eosinophils % Eosinophils % (Manual) Basophils % Basophils % (Manual) Myelocytes % (Man) Promyelocytes % (Man) Blast Cells % (Manual) Nucleated RBC % Metamyelocytes Hypochromia Platelet Estimate Polychromasia Poikilocytosis Anisocytosis Microcytosis Macrocytosis Anticoagulation Therapy No Result Required. Puncture Site Left radial Patient Temperature No Result Required. ABG pH 7.359 ABG pCO2 28.50 L ABG pO2 81.3 ABG HCO3 15.7 L ABG O2 Sat (Measured) 95.8 ABG O2 Content No Result Required. ABG Base Excess -8.8 L Yandel Test Positive Patient On Oxygen Yes O2 Delivery Device Nonrebreather Oxygen Flow Rate 100 Vent Mode No Result Required. Vent Rate No Result Required. Mechanical Rate No Result Required. PEEP No Result Required. Pressure Support Vent No Result Required. Sodium Potassium Chloride Carbon Dioxide Anion Gap BUN Creatinine Est GFR (CKD-EPI)AfAm Est GFR (CKD-EPI)NonAf POC Glucometer 48 50 Random Glucose Calcium Phosphorus Magnesium Total Bilirubin AST ALT Alkaline Phosphatase Creatine Kinase Creatine Kinase Index CK-MB (CK-2) B-Natriuretic Peptide Total Protein Albumin Vitamin B12 Serum Folate Blood Type Antibody Screen Crossmatch 07/04/20 07/04/20 12:20 14:18 WBC RBC Hgb Hct MCV MCH MCHC RDW Plt Count MPV Absolute Neuts (auto) Total Counted Neutrophils % Neutrophils % (Manual) Band Neutrophils % Lymphocytes % Lymphocytes % (Manual) Monocytes % Monocytes % (Manual) Eosinophils % Eosinophils % (Manual) Basophils % Basophils % (Manual) Myelocytes % (Man) Promyelocytes % (Man) Blast Cells % (Manual) Nucleated RBC % Metamyelocytes Hypochromia Platelet Estimate Polychromasia Poikilocytosis Anisocytosis Microcytosis Macrocytosis Anticoagulation Therapy Puncture Site Patient Temperature ABG pH ABG pCO2 ABG pO2 ABG HCO3 ABG O2 Sat (Measured) ABG O2 Content ABG Base Excess Yandel Test Patient On Oxygen O2 Delivery Device Oxygen Flow Rate Vent Mode Vent Rate Mechanical Rate PEEP Pressure Support Vent Sodium Potassium Chloride Carbon Dioxide Anion Gap BUN Creatinine Est GFR (CKD-EPI)AfAm Est GFR (CKD-EPI)NonAf POC Glucometer 135 120 Random Glucose Calcium Phosphorus Magnesium Total Bilirubin AST ALT Alkaline Phosphatase Creatine Kinase Creatine Kinase Index CK-MB (CK-2) B-Natriuretic Peptide Total Protein Albumin Vitamin B12 Serum Folate Blood Type Antibody Screen Crossmatch Active Medications Generic Name Dose Route Start Last Admin Trade Name Freq PRN Reason Stop Dose Admin Calcium Gluconate 1,000 mg 07/04/20 17:10 Calcium Gluconate 10% - IVPB 07/04/20 17:11 ONCE ONE Chlorhexidine Gluconate 1 applic 07/03/20 22:00 07/03/20 21:34 Hibiclens For Decolonization - TP 1 applic HS RAUL Administration Heparin Sodium (Porcine) 5,000 unit 07/02/20 10:00 07/04/20 12:48 Heparin - SQ 5,000 unit BID RAUL Administration Piperacillin Sod/Tazobactam 50 mls @ 100 mls/hr 07/02/20 18:00 07/04/20 10:38 Sod 3.375 gm/ Dextrose IVPB 100 mls/hr Q8H-IV RAUL Administration Protocol Vancomycin HCl 1,250 mg/ 250 mls @ 250 mls/2 hr 07/02/20 16:00 07/04/20 17:15 Dextrose IVPB 250 mls/2 hr Q24H RAUL Administration Protocol Amino Acids 1,000 mls @ 42 mls/hr 07/03/20 12:15 07/04/20 15:33 Clinimix - IV 42 mls/hr Q24H RAUL Administration Dextrose/Sodium Chloride 1,000 mls @ 75 mls/hr 07/04/20 12:30 07/04/20 12:30 D5-Ns - IV 75 mls/hr ASDIR RAUL Administration Fentanyl 500 mcg in 100 mls @ 3 mls/hr 07/04/20 16:30 07/04/20 16:55 Sublimaze Ivpb IVPB 25 mcg/hr TITR RAUL 5 mls/hr Titration 15 MCG/HR Magnesium Sulfate 2 gm 07/04/20 17:09 Magnesium Sulfate IVPB 07/04/20 17:10 ONCE ONE Multivitamins/Minerals 10 ml 07/04/20 10:00 07/04/20 15:34 Infuvite Adult - IV 10 ml DAILY RAUL Administration Mupirocin 1 applic 07/03/20 10:00 07/04/20 10:38 Bactroban Ointment (For Decolonization) - NS 07/08/20 09:59 1 applic BID RAUL Administration Potassium Phos/Sodium Phos 1 packet 07/04/20 17:13 Phos-Nak Packet - PO 07/04/20 17:14 ONCE ONE ASSESSMENT/PLAN: Neuro - Altered Mental Status- Most likely due to hypoglycemia. - Pt now intubated and sedated on 50 Fentanyl. Propofol cautiously used due to dropping MAP Cardiac - HTN- will hold bp meds Resp - pt has history of asthma- will give albuterol if pt has asthma - Pt was tachypnic and having trouble breathing so was intubated today now saturating at 100% GI - SBO - Appreciate Surgery consult - Will do NG tube PRN - WIll keep pt NPO and give IV hydration - CT of abd/pelvis with oral contrast ordered -Liver enzymes likely elevated due to sepsis. WIll down trend with sepsis treated. Appreciate GI consult - repeat labs improved - cont dextrose - cont d5ns - monitor lytes closely - am labs likely drawn close to IV ID - Sepsis secondary UTI vs Right sided PNA - Treating via vancomycin and zosyn - ID consult appreciated Endocrine - Hypoglycemia vs refeeding syndrome - Nutirition consult appreciated who states keep daily glucose under 150gm a day - pt keeps going hypoglycemic will monitor q2hr and give more glucose if hypoglycemic and symptomatic FEN - monitor electrolytes including phosphate and magnesium possible refeeding syndrome - Hyponatremia- gave D5NS - Hypomagnesmia- gave Mag - Hypophospatemia- gave phosphorous - Hypocalcemia- gave Calcium PPx - DVT- heparin 5000 units per day Visit type - Emergency Visit Emergency Visit: Yes ED Registration Date: 07/01/20 Care time: The patient presented to the Emergency Department on the above date and was hospitalized for further evaluation of their emergent condition. - New Patient This patient is new to me today: No - Critical Care Critical Care patient: Yes Total Critical Care Time (in minutes): 36 Critical Care Statement: The care of this patient involved high complexity decision making to prevent further life threatening deterioration of the patient's condition and/or to evaluate & treat vital organ system(s) failure or risk of failure. ATTENDING PHYSICIAN STATEMENT I saw and evaluated the patient. I reviewed the resident's note and discussed the case with the resident. I agree with the resident's findings and plan as documented. SUBJECTIVE: OBJECTIVE: ASSESSMENT AND PLAN:
[2020-07-04] MEDS ORDERED: MAGNESIUM 2GM/50ML STERILE WATER IVPB IVPB ONE (18:45)
[2020-07-04] MEDS ORDERED: MIDAZOLAM IN 0.9 % SOD.CHLORID 1 MG/1 ML PLAST..BAG ONE (21:03)
[2020-07-04] MEDS: MIDAZOLAM 100 MG in SODIUM CHLORIDE 100 ML IVPB SCH (21:15)
[2020-07-04] MEDS: CHLORHEXIDINE GLUCONATE 4% CLEANSER FOR DECOLONIZATION TP SCH (22:12)
[2020-07-05] MEDS ORDERED: DEXTROSE 5%-WATER - 50 ML IVPB ONE ×3 (02:03→17:20)
[2020-07-05] MEDS ORDERED: PIPERACILLIN/TAZOBACTAM 3.375 GM VIAL IVPB ONE ×3 (02:03→17:20)
[2020-07-05] MEDS: PIPERACILLIN/TAZOB 3.375 GM 3.375 GM in DEXTROSE 5%-WATER - 50 ML IVPB SCH ×3 (02:06→17:48)
[2020-07-05] MEDS: FENTANYL NS IVPB 500 MCG/100 ML BAG IVPB SCH ×3 (05:00→20:16)
[2020-07-05 06:57] LABS: BASO % 0.2 % (0-2.0); EOS % 4.2 % (0-4.5); HEMATOCRIT 19.6 % (32.4-45.2); LYMPH % 1.7 % (8-40); MCH 28.4 pg (25.7-33.7); MCHC 34.6 g/dl (32.0-36.0); MEAN CELL VOLUME 82.1 fl (80-96); MEAN PLT VOLUME 7.3 fl (7.5-11.1); MONO % 0.6 % (3.8-10.2); NEUT % 93.3 % (42.8-82.8); PLATELET COUNT 104 K/MM3 (134-434); RBC 2.39 M/mm3 (3.60-5.2); RDW 13.7 % (11.6-15.6); WHITE BLOOD COUNT 10.5 K/mm3 (4.0-10.0)
[2020-07-05 08:18] LABS: HEMOGLOBIN 6.8 GM/dL (10.7-15.3)
[2020-07-05 08:41] LABS: BILIRUBIN,TOTAL 0.5 mg/dL (0.2-1); BLOOD UREA NITROGEN 29.2 mg/dL (7-18); CREATININE 0.2 mg/dL (0.55-1.3); MAGNESIUM 1.7 mg/dL (1.8-2.4); TOT PROT 3.8 g/dl (6.4-8.2)
[2020-07-05 08:45] LABS: CALCIUM 5.6 mg/dL (8.5-10.1); POTASSIUM 2.2 mmol/L (3.5-5.1)
[2020-07-05] MEDS: MUPIROCIN 2% TOPICAL OINTMENT FOR DECOLONIZATION NS SCH ×2 (09:09→21:08)
[2020-07-05] MEDS: THIAMINE HCL 200 MG/2 ML VIAL IVPB SCH ×2 (09:11→20:14)
[2020-07-05] MEDS ORDERED: SODIUM PHOSPHATE IVPB SCH (10:44)
[2020-07-05] MEDS ORDERED: AMINO ACIDS IVPB SCH (10:44)
[2020-07-05] MEDS ORDERED: POTASSIUM PHOSPHATE IVPB SCH (10:44)
[2020-07-05] MEDS ORDERED: [UNRECOGNIZED DRUG - OTHER] IVPB SCH (10:44)
[2020-07-05] MEDS ORDERED: POTASSIUM CHLORIDE ORAL LIQUID 20 MEQ/15 ML PO SCH (10:45)
[2020-07-05] MEDS ORDERED: POTASSIUM CHLORIDE ORAL LIQUID 20 MEQ/15 ML PO ONE (10:45)
[2020-07-05] MEDS: KCL 10 MEQ IVPB 10 MEQ/100 ML INFUS.BAG IVPB SCH ×3 (10:49→14:09)
[2020-07-05] MEDS ORDERED: MAGNESIUM SULF 50% (8.12 MEQ/2 ML-1 GM VIAL) IVPB ONE (10:52)
[2020-07-05 10:57] LABS: ANISOCYTOSIS 0; MACROCYTOSIS 0; PLATELET ESTIMATE DECREASED
[2020-07-05] MEDS ORDERED: MAGNESIUM SULFATE IN WATER 2 GM/50 ML IVPB IVPB ONE (11:00)
[2020-07-05] MEDS ORDERED: PANTOPRAZOLE SODIUM 40 MG VIAL IVPUSH SCH (11:45)
[2020-07-05] MEDS ORDERED: POTASSIUM PHOSPHATE 30 MM in SODIUM CHLORIDE 250 ML IVPB ONE (12:00)
[2020-07-05] MEDS: HEPARIN NA (PORCINE) 5,000 UNITS/ML 1ML VIAL SQ SCH ×2 (12:20→21:42)
[2020-07-05] MEDS ORDERED: CALCIUM GLUCONATE 10% - 1,000 MG/10 ML VIAL IVPB ONE (12:33)
--- NOTE | 2020-07-05 12:40 | PN ---
Teaching Attending Note Name of Resident: Gio Howard ATTENDING PHYSICIAN STATEMENT I saw and evaluated the patient. I reviewed the resident's note and discussed the case with the resident. I agree with the resident's findings and plan as documented. SUBJECTIVE: Pt seen and examined in the ICU. Remains intubated, sedated. No pressors. OBJECTIVE: Vital Signs Period Temp Pulse Resp BP Sys/Campbell Pulse Ox Last 24 Hr 91.7 F-97.8 F 62-109 15-45 77-102/52-87 98-100 Intake & Output 07/02/20 07/03/20 07/04/20 07/05/20 23:59 23:59 23:59 23:59 Intake Total 1530.5 2798 1098 Output Total 1400 1050 650 Balance 130.5 1748 448 Weight 27.216 kg 30.391 kg 30.119 kg 31.751 kg Gen: intubated, sedated Heart: RRR Lung: decreased breath sounds at the bases Abd: soft, nontender Ext: no edema CBC, BMP 07/05/20 06:25 07/05/20 06:25 Active Medications Calcium Gluconate (Calcium Gluconate 10% -) 1,000 mg IVPB ONCE ONE Stop: 07/05/20 12:34 Chlorhexidine Gluconate (Hibiclens For Decolonization -) 1 applic TP HS RAUL Last Admin: 07/04/20 22:12 Dose: 1 applic Documented by: Heparin Sodium (Porcine) (Heparin -) 5,000 unit SQ BID RAUL Last Admin: 07/05/20 12:20 Dose: 5,000 unit Documented by: Piperacillin Sod/Tazobactam (Sod 3.375 gm/ Dextrose) 50 mls @ 100 mls/hr IVPB Q8H-IV RAUL; Protocol Last Admin: 07/05/20 09:09 Dose: 100 mls/hr Documented by: Vancomycin HCl 1,250 mg/ (Dextrose) 250 mls @ 250 mls/2 hr IVPB Q24H RAUL; Protocol Last Admin: 07/04/20 17:15 Dose: 250 mls/2 hr Documented by: Dextrose/Sodium Chloride (D5-Ns -) 1,000 mls @ 75 mls/hr IV ASDIR RAUL Last Admin: 07/04/20 12:30 Dose: 75 mls/hr Documented by: Fentanyl (Sublimaze Ivpb) 500 mcg in 100 mls @ 3 mls/hr IVPB TITR [facility] Last Admin: 07/05/20 05:00 Dose: 50 mcg/hr, 10 mls/hr Documented by: Midazolam HCl 100 mg/ Sodium (Chloride) 100 mls @ 1 mls/hr IVPB TITR [facility]; Protocol Last Titration: 07/05/20 08:00 Dose: 0 mg/hr, 0 mls/hr Documented by: Potassium Chloride (Potassium Chloride 10 Meq Premix Ivpb -) 10 meq in 100 mls @ 100 mls/hr IVPB Q60M [facility] Stop: 07/05/20 13:44 Last Admin: 07/05/20 10:49 Dose: 100 mls/hr Documented by: Potassium Phosphate 30 mm/Sodium Phosphate 30 mm/ Amino Acids 1,020 mls @ 42 mls/hr IVPB Q24H [facility] Last Admin: 07/05/20 12:06 Dose: 42 mls/hr Documented by: Potassium Phosphate 30 mm/ (Sodium Chloride) 260 mls @ 43.333 mls/hr IVPB ONCE ONE Stop: 07/05/20 17:59 Last Admin: 07/05/20 12:19 Dose: 43.333 mls/hr Documented by: Multivitamins/Minerals (Infuvite Adult -) 10 ml IV DAILY [facility] Last Admin: 07/04/20 15:34 Dose: 10 ml Documented by: Mupirocin (Bactroban Ointment (For Decolonization) -) 1 applic NS BID [facility] Stop: 07/08/20 09:59 Last Admin: 07/05/20 09:09 Dose: 1 applic Documented by: Pantoprazole Sodium (Protonix Iv) 40 mg IVPUSH DAILY [facility] Last Admin: 07/05/20 12:20 Dose: 40 mg Documented by: Thiamine HCl (Vitamin B1 Injection -) 100 mg IVPB DAILY [facility] Stop: 07/05/20 23:59 Last Admin: 07/05/20 09:11 Dose: 100 mg Documented by: ASSESSMENT AND PLAN: Acute Hypoxic Respiratory Failure Pneumonia likely Aspiration UTI Sepsis Hyponatremia Small Bowel Obstruction Alcohol/Heroin Abuse Anemia Failure to Thrive Severe Protein Calorie Malnutrition Refeeding Syndrome - replete lytes - monitor BMP closely - continue antibiotics - f/u cultures - O2 to keep SpO2 >90% - sedate for vent synchrony - continue volume assist control - start trickle enteral feeds - DVT prophylaxis - ICU monitoring critical care time spent in reviewing chart, evaluating patient and formulating plan 35 min
[2020-07-05] MEDS: DEXTROSE 5%-NORMAL SALINE 1,000 ML IV SCH ×3 (13:01→20:09)
--- NOTE | 2020-07-05 14:22 | PN ---
Progress Note, Physician History of Present Illness: events noted patient went into further resp failure now intubated failure to thrive - Current Medication List Current Medications: Active Medications Chlorhexidine Gluconate (Hibiclens For Decolonization -) 1 applic TP HS [facility] Last Admin: 07/04/20 22:12 Dose: 1 applic Documented by: Heparin Sodium (Porcine) (Heparin -) 5,000 unit SQ BID RAUL Last Admin: 07/05/20 12:20 Dose: 5,000 unit Documented by: Piperacillin Sod/Tazobactam (Sod 3.375 gm/ Dextrose) 50 mls @ 100 mls/hr IVPB Q8H-IV RAUL; Protocol Last Admin: 07/05/20 09:09 Dose: 100 mls/hr Documented by: Fentanyl (Sublimaze Ivpb) 500 mcg in 100 mls @ 3 mls/hr IVPB TITR [facility] Last Admin: 07/05/20 05:00 Dose: 50 mcg/hr, 10 mls/hr Documented by: Midazolam HCl 100 mg/ Sodium (Chloride) 100 mls @ 1 mls/hr IVPB TITR [facility]; Protocol Last Titration: 07/05/20 08:00 Dose: 0 mg/hr, 0 mls/hr Documented by: Potassium Phosphate 30 mm/ (Sodium Chloride) 260 mls @ 43.333 mls/hr IVPB ONCE ONE Stop: 07/05/20 17:59 Last Admin: 07/05/20 12:19 Dose: 43.333 mls/hr Documented by: Dextrose/Sodium Chloride (D5-Ns -) 1,000 mls @ 30 mls/hr IV ASDIR [facility] Last Admin: 07/05/20 14:09 Dose: 30 mls/hr Documented by: Multivitamins/Minerals (Infuvite Adult -) 10 ml IV DAILY [facility] Last Admin: 07/04/20 15:34 Dose: 10 ml Documented by: Mupirocin (Bactroban Ointment (For Decolonization) -) 1 applic NS BID [facility] Stop: 07/08/20 09:59 Last Admin: 07/05/20 09:09 Dose: 1 applic Documented by: Pantoprazole Sodium (Protonix Iv) 40 mg IVPUSH DAILY [facility] Last Admin: 07/05/20 12:20 Dose: 40 mg Documented by: Thiamine HCl (Vitamin B1 Injection -) 100 mg IVPB DAILY [facility] Stop: 07/09/20 23:59 Last Admin: 07/05/20 09:11 Dose: 100 mg Documented by: - Objective Vital Signs: Vital Signs Temperature 97.1 F L 07/05/20 14:00 Pulse Rate 90 07/05/20 14:00 Respiratory Rate 23 H 07/05/20 14:00 Blood Pressure 76/52 L 07/05/20 14:00 O2 Sat by Pulse Oximetry (%) 100 07/05/20 14:00 Constitutional: Yes: Other (failure to thrive) Cardiovascular: Yes: S1, S2 Respiratory: Yes: Intubated, Mechanically Ventilated Gastrointestinal: Yes: Normal Bowel Sounds, Soft Musculoskeletal: Yes: WNL Extremities: Yes: WNL Labs: CBC, BMP 07/05/20 06:25 INR, PTT INR 2.39 (0.83-1.09) H 07/01/20 15:43 - ....Imaging Chest X-ray: Report Reviewed, Image Reviewed Assessment/Plan Pneumonia likely Aspiration UTI Sepsis Hyponatremia SBO resolving Alcohol/Heroin Abuse Anemia Failure to Thrive Severe Protein Calorie Malnutrition plan continue current mgmt abx nutrition awaiting finalization rest as per icu will stop vanco await for sputum cx cc 40 min
[2020-07-05 14:44] LABS: BLOOD UREA NITROGEN 30.8 mg/dL (7-18); CREATININE 0.3 mg/dL (0.55-1.3); MAGNESIUM 2.9 mg/dL (1.8-2.4); PHOSPHOROUS 1.8 mg/dL (2.5-4.9); POTASSIUM 4.1 mmol/L (3.5-5.1)
[2020-07-05] MEDS: MULTIVIT INJ. ADULT COMBO WITH VIT K 1 COMBO 10 ML VIAL IV SCH (14:47)
[2020-07-05 14:59] LABS: BILIRUBIN,TOTAL 0.6 mg/dL (0.2-1)
[2020-07-05 15:22] LABS: CALCIUM 5.5 mg/dL (8.5-10.1)
--- NOTE | 2020-07-05 17:42 | PN ---
Progress Note, Physician History of Present Illness: Pt seen and examined at bedside. She is intubated. - Current Medication List Current Medications: Active Medications Chlorhexidine Gluconate (Hibiclens For Decolonization -) 1 applic TP HS [facility] Last Admin: 07/04/20 22:12 Dose: 1 applic Documented by: Heparin Sodium (Porcine) (Heparin -) 5,000 unit SQ BID RAUL Last Admin: 07/05/20 12:20 Dose: 5,000 unit Documented by: Piperacillin Sod/Tazobactam (Sod 3.375 gm/ Dextrose) 50 mls @ 100 mls/hr IVPB Q8H-IV RAUL; Protocol Last Admin: 07/05/20 09:09 Dose: 100 mls/hr Documented by: Fentanyl (Sublimaze Ivpb) 500 mcg in 100 mls @ 3 mls/hr IVPB TITR [facility] Last Admin: 07/05/20 14:50 Dose: 50 mcg/hr, 10 mls/hr Documented by: Midazolam HCl 100 mg/ Sodium (Chloride) 100 mls @ 1 mls/hr IVPB TITR [facility]; Protocol Last Titration: 07/05/20 08:00 Dose: 0 mg/hr, 0 mls/hr Documented by: Potassium Phosphate 30 mm/ (Sodium Chloride) 260 mls @ 43.333 mls/hr IVPB ONCE ONE Stop: 07/05/20 17:59 Last Admin: 07/05/20 12:19 Dose: 43.333 mls/hr Documented by: Dextrose/Sodium Chloride (D5-Ns -) 1,000 mls @ 30 mls/hr IV ASDIR [facility] Last Admin: 07/05/20 14:09 Dose: 30 mls/hr Documented by: Multivitamins/Minerals (Infuvite Adult -) 10 ml IV DAILY [facility] Last Admin: 07/05/20 14:47 Dose: Not Given Documented by: Multivitamins/Minerals (Certavite-Antioxidant Liquid) 15 ml PO DAILY [facility] Mupirocin (Bactroban Ointment (For Decolonization) -) 1 applic NS BID [facility] Stop: 07/08/20 09:59 Last Admin: 07/05/20 09:09 Dose: 1 applic Documented by: Pantoprazole Sodium (Protonix Iv) 40 mg IVPUSH DAILY [facility] Last Admin: 07/05/20 12:20 Dose: 40 mg Documented by: Thiamine HCl (Vitamin B1 Injection -) 100 mg IVPB DAILY RAUL Stop: 07/09/20 23:59 Last Admin: 07/05/20 09:11 Dose: 100 mg Documented by: - Objective Vital Signs: Vital Signs Temperature 97.5 F L 07/05/20 16:00 Pulse Rate 64 07/05/20 16:00 Respiratory Rate 28 H 07/05/20 16:10 Blood Pressure 84/54 L 07/05/20 16:00 O2 Sat by Pulse Oximetry (%) 99 07/05/20 16:10 Constitutional: Yes: Calm Eyes: Yes: Conjunctiva Clear HENT: Yes: Atraumatic Cardiovascular: Yes: S1, S2 Respiratory: Yes: Mechanically Ventilated Gastrointestinal: Yes: Normal Bowel Sounds, Soft Genitourinary: Yes: Uribe Present Edema: Yes Edema: LUE: Trace, RUE: Trace, LLE: Trace, RLE: Trace Neurological: Yes: Lethargy Labs: CBC, BMP 07/05/20 06:25 07/05/20 13:35 INR, PTT INR 2.39 (0.83-1.09) H 07/01/20 15:43 Problem List - Problems (1) Hypoglycemia Code(s): E16.2 - HYPOGLYCEMIA, UNSPECIFIED (2) Sepsis Code(s): A41.9 - SEPSIS, UNSPECIFIED ORGANISM Qualifiers: Sepsis type: sepsis due to unspecified organism Sepsis acute organ dysfunction status: unspecified Qualified Code(s): A41.9 - Sepsis, unspecified organism (3) Hypoalbuminemia Code(s): E88.09 - OTH DISORDERS OF PLASMA-PROTEIN METABOLISM, NEC (4) Hyponatremia Code(s): E87.1 - HYPO-OSMOLALITY AND HYPONATREMIA Assessment/Plan Current Medications Generic Name Dose Route Start Last Admin Trade Name Freq PRN Reason Stop Dose Admin Chlorhexidine Gluconate 1 applic 07/03/20 22:00 07/04/20 22:12 Hibiclens For Decolonization - TP 1 applic HS RAUL Administration Heparin Sodium (Porcine) 5,000 unit 07/02/20 10:00 07/05/20 12:20 Heparin - SQ 5,000 unit BID RAUL Administration Piperacillin Sod/Tazobactam 50 mls @ 100 mls/hr 07/02/20 18:00 07/05/20 09:09 Sod 3.375 gm/ Dextrose IVPB 100 mls/hr Q8H-IV RAUL Administration Protocol Fentanyl 500 mcg in 100 mls @ 3 mls/hr 07/04/20 16:30 07/05/20 14:50 Sublimaze Ivpb IVPB 50 mcg/hr TITR RAUL 10 mls/hr Administration 15 MCG/HR Midazolam HCl 100 mg/ Sodium 100 mls @ 1 mls/hr 07/04/20 20:45 07/05/20 08:00 Chloride IVPB 0 mg/hr TITR RAUL 0 mls/hr Titration Protocol 1 MG/HR Potassium Phosphate 30 mm/ 260 mls @ 43.333 mls/hr 07/05/20 12:00 07/05/20 12:19 Sodium Chloride IVPB 07/05/20 17:59 43.333 mls/hr ONCE ONE Administration Dextrose/Sodium Chloride 1,000 mls @ 30 mls/hr 07/05/20 13:30 07/05/20 14:09 D5-Ns - IV 30 mls/hr ASDIR RAUL Administration Multivitamins/Minerals 10 ml 07/04/20 10:00 07/05/20 14:47 Infuvite Adult - IV Not Given DAILY RAUL Multivitamins/Minerals 15 ml 07/06/20 10:00 Certavite-Antioxidant Liquid PO DAILY RAUL Mupirocin 1 applic 07/03/20 10:00 07/05/20 09:09 Bactroban Ointment (For Decolonization) - NS 07/08/20 09:59 1 applic BID RAUL Administration Pantoprazole Sodium 40 mg 07/05/20 11:45 07/05/20 12:20 Protonix Iv IVPUSH 40 mg DAILY RALU Administration Thiamine HCl 100 mg 07/04/20 18:15 07/05/20 09:11 Vitamin B1 Injection - IVPB 07/09/20 23:59 100 mg DAILY RUAL Administration Impression 1. azotemia 2. hyponatremia 3. hyperkalemia 4. hypotension 5. sepsis 6. sbo 7. uti 8. liver cirrhosis 9. hypoalbuminemia 10. etoh abuse 11. substance abuse 12. psoriasis 13. acute resp failure Plan - repeat labs are improved - pt evaluated earlier today - discussed with ICU, tube feeds to be started at 10 cc per hour - cont to monitor lytes and monitor for signs of refeeding syndrome - cont ICU care - cont vent support
--- NOTE | 2020-07-05 17:55 | PN.GI ---
GI Progress Note Subjective: GI: For Dr. Isa Steele for refeeding syndrome (whole not being fed, has been getting dextrose though IV soilutions) No acute events Lytes continue to be corrected Receiving 1 U PRBC No overt bleeding reported + loose bowel movements Repeat CT scan revealed persistent SBO, however with improvement in caliber of bowel distention - Objective Vital Signs: Vital Signs Temperature 97.5 F L 07/05/20 16:00 Pulse Rate 64 07/05/20 16:00 Respiratory Rate 28 H 07/05/20 16:10 Blood Pressure 84/54 L 07/05/20 16:00 O2 Sat by Pulse Oximetry (%) 99 07/05/20 16:10 Constitutional: Calm Eyes: Yes: Sclera Icterus Cardiovascular: Yes: Regular Rate and Rhythm. No: Murmur Respiratory: Yes: Diminished (at bases bilaterally) Gastrointestinal Inspection: Yes: Distention ...Auscultate: Yes: Normoactive Bowel Sounds ...Palpate: No: Tenderness (No grimacing upon palpation) Edema: No (No LE edema) Labs: CBC, BMP 07/05/20 06:25 07/05/20 13:35 INR, PTT INR 2.39 (0.83-1.09) H 07/01/20 15:43 Problem List - Problems (1) SBO (small bowel obstruction) Assessment/Plan: SBO vs. Ileus Surgery following NGT suction Correct lytes Stopped protonix as this can contribute to hypomagnesemia Code(s): K56.609 - UNSP INTESTNL OBST, UNSP TO PARTIAL VERSUS COMPLETE OBST (2) Cirrhosis Assessment/Plan: history of cirrhosis per chart and Dr. Moss's note (? etiology, ? etoh induced, ? if follows at a liver center) with acute dysfunction leading to acute on chronic liver failure. ? ischemic hepatopahty in setting of sepsis. Continuing supportive measures Monitor liver chemistries/coags Avoid hepatotoxic agents Goals of care will need to be clarified. Overall poor prognosis Code(s): K74.60 - UNSPECIFIED CIRRHOSIS OF LIVER Qualifiers: Ascites presence: unspecified
--- NOTE | 2020-07-05 18:06 | PN ---
Physical Exam: SUBJECTIVE: Patient seen and examined intubated and sedated. OBJECTIVE: GENERAL: Intubated and sedated HEAD: No signs of trauma, normocephalic, atraumatic EYES: PERRLA, EOMI, sclera anicteric, conjunctiva clear ENT: Auricles normal inspection, hearing grossly normal, nares patent NECK: Normal ROM, supple, no lymphadenopathy, JVD, or masses LUNGS: dec breath sounds at bilateral bases HEART: Regular rate and rhythm, normal S1 and S2, no murmurs, rubs or gallops, peripheral pulses normal and equal bilaterally. ABDOMEN: Soft, nontender, normoactive bowel sounds. No guarding, no rebound. No masses EXTREMITIES : cachectic NEUROLOGICAL: Cranial nerves II through XII grossly intact. Normal speech, SKIN:Cachectic Vital Signs Period Temp Pulse Resp BP Sys/Campbell Pulse Ox Last 24 Hr 91.7 F-97.6 F 62-90 19-28 76-84/52-66 98-100 Laboratory Results - last 24 hr 07/04/20 07/04/20 07/04/20 10:45 18:48 20:23 WBC RBC Hgb Hct MCV MCH MCHC RDW Plt Count MPV Absolute Neuts (auto) Neutrophils % Neutrophils % (Manual) Band Neutrophils % Lymphocytes % Lymphocytes % (Manual) Monocytes % Monocytes % (Manual) Eosinophils % Eosinophils % (Manual) Basophils % Basophils % (Manual) Myelocytes % (Man) Promyelocytes % (Man) Blast Cells % (Manual) Nucleated RBC % Metamyelocytes Hypochromia Platelet Estimate Polychromasia Poikilocytosis Anisocytosis Microcytosis Macrocytosis Sodium Potassium Chloride Carbon Dioxide Anion Gap BUN Creatinine Est GFR (CKD-EPI)AfAm Est GFR (CKD-EPI)NonAf POC Glucometer 126 117 Random Glucose Calcium Phosphorus Magnesium Total Bilirubin AST ALT Alkaline Phosphatase Total Protein Albumin Blood Type O POSITIVE Antibody Screen Negative Crossmatch See Detail 07/04/20 07/05/20 07/05/20 22:10 00:32 05:40 WBC RBC Hgb Hct MCV MCH MCHC RDW Plt Count MPV Absolute Neuts (auto) Neutrophils % Neutrophils % (Manual) Band Neutrophils % Lymphocytes % Lymphocytes % (Manual) Monocytes % Monocytes % (Manual) Eosinophils % Eosinophils % (Manual) Basophils % Basophils % (Manual) Myelocytes % (Man) Promyelocytes % (Man) Blast Cells % (Manual) Nucleated RBC % Metamyelocytes Hypochromia Platelet Estimate Polychromasia Poikilocytosis Anisocytosis Microcytosis Macrocytosis Sodium Potassium Chloride Carbon Dioxide Anion Gap BUN Creatinine Est GFR (CKD-EPI)AfAm Est GFR (CKD-EPI)NonAf POC Glucometer 121 115 117 Random Glucose Calcium Phosphorus Magnesium Total Bilirubin AST ALT Alkaline Phosphatase Total Protein Albumin Blood Type Antibody Screen Crossmatch 07/05/20 07/05/20 07/05/20 06:25 06:25 09:00 WBC 10.5 H RBC 2.39 L Hgb 6.8 L* Hct 19.6 L MCV 82.1 MCH 28.4 MCHC 34.6 RDW 13.7 Plt Count 104 L D MPV 7.3 L Absolute Neuts (auto) 9.8 H Neutrophils % 93.3 H Neutrophils % (Manual) 74.5 Band Neutrophils % 18.4 Lymphocytes % 1.7 L D Lymphocytes % (Manual) 3.0 L D Monocytes % 0.6 L D Monocytes % (Manual) 0 L Eosinophils % 4.2 D Eosinophils % (Manual) 4.1 Basophils % 0.2 Basophils % (Manual) 0.0 Myelocytes % (Man) 0 Promyelocytes % (Man) 0 Blast Cells % (Manual) 0 Nucleated RBC % 0 Metamyelocytes 0 Hypochromia 0 Platelet Estimate Decreased Polychromasia 0 Poikilocytosis 0 Anisocytosis 0 Microcytosis 0 Macrocytosis 0 Sodium 125 L Potassium 2.2 L* Chloride 100 Carbon Dioxide 15 L Anion Gap 10 BUN 29.2 H Creatinine 0.2 L Est GFR (CKD-EPI)AfAm 197.84 Est GFR (CKD-EPI)NonAf 170.70 POC Glucometer 133 Random Glucose 124 H Calcium 5.6 L* Phosphorus 1.0 L* Magnesium 1.7 L Total Bilirubin 0.5 AST 268 H ALT 289 H Alkaline Phosphatase 477 H Total Protein 3.8 L Albumin 1.0 L Blood Type Antibody Screen Crossmatch 07/05/20 07/05/20 07/05/20 12:25 13:35 14:37 WBC RBC Hgb Hct MCV MCH MCHC RDW Plt Count MPV Absolute Neuts (auto) Neutrophils % Neutrophils % (Manual) Band Neutrophils % Lymphocytes % Lymphocytes % (Manual) Monocytes % Monocytes % (Manual) Eosinophils % Eosinophils % (Manual) Basophils % Basophils % (Manual) Myelocytes % (Man) Promyelocytes % (Man) Blast Cells % (Manual) Nucleated RBC % Metamyelocytes Hypochromia Platelet Estimate Polychromasia Poikilocytosis Anisocytosis Microcytosis Macrocytosis Sodium 128 L Potassium 4.1 Chloride 103 Carbon Dioxide 16 L Anion Gap 9 BUN 30.8 H Creatinine 0.3 L Est GFR (CKD-EPI)AfAm 173.14 Est GFR (CKD-EPI)NonAf 149.38 POC Glucometer 82 Random Glucose 86 Calcium 5.5 L* Phosphorus 1.8 L Magnesium 2.9 H Total Bilirubin 0.6 AST 438 H ALT 339 H Alkaline Phosphatase 654 H Total Protein 4.0 L Albumin 1.0 L Blood Type Cancelled Antibody Screen Cancelled Crossmatch Active Medications Generic Name Dose Route Start Last Admin Trade Name Freq PRN Reason Stop Dose Admin Chlorhexidine Gluconate 1 applic 07/03/20 22:00 07/04/20 22:12 Hibiclens For Decolonization - TP 1 applic HS RAUL Administration Heparin Sodium (Porcine) 5,000 unit 07/02/20 10:00 07/05/20 12:20 Heparin - SQ 5,000 unit BID RAUL Administration Piperacillin Sod/Tazobactam 50 mls @ 100 mls/hr 07/02/20 18:00 07/05/20 17:48 Sod 3.375 gm/ Dextrose IVPB 100 mls/hr Q8H-IV RAUL Administration Protocol Fentanyl 500 mcg in 100 mls @ 3 mls/hr 07/04/20 16:30 07/05/20 14:50 Sublimaze Ivpb IVPB 50 mcg/hr TITR RAUL 10 mls/hr Administration 15 MCG/HR Midazolam HCl 100 mg/ Sodium 100 mls @ 1 mls/hr 07/04/20 20:45 07/05/20 08:00 Chloride IVPB 0 mg/hr TITR RAUL 0 mls/hr Titration Protocol 1 MG/HR Dextrose/Sodium Chloride 1,000 mls @ 30 mls/hr 07/05/20 13:30 07/05/20 14:09 D5-Ns - IV 30 mls/hr ASDIR RAUL Administration Multivitamins/Minerals 10 ml 07/04/20 10:00 07/05/20 14:47 Infuvite Adult - IV Not Given DAILY RAUL Multivitamins/Minerals 15 ml 07/06/20 10:00 Certavite-Antioxidant Liquid PO DAILY RAUL Mupirocin 1 applic 07/03/20 10:00 07/05/20 09:09 Bactroban Ointment (For Decolonization) - NS 07/08/20 09:59 1 applic BID RAUL Administration Thiamine HCl 100 mg 07/04/20 18:15 07/05/20 09:11 Vitamin B1 Injection - IVPB 07/09/20 23:59 100 mg DAILY RAUL Administration ASSESSMENT/PLAN: Neuro - Altered Mental Status- Most likely due to hypoglycemia. - Pt now intubated and sedated on 50 Fentanyl and midazolam Cardiac - HTN- will hold bp meds - Monitoring BP keep >65. Resp - pt has history of asthma- will give albuterol if pt has asthma - Pt was tachypnic and having trouble breathing so was intubated 07/04 now saturating at 100% GI - SBO - Appreciate Surgery consult - Will do NG tube PRN - WIll keep pt NPO and give IV hydration - CT of abd/pelvis with oral contrast- SBO with moderate improvement will continue to monitor Xrays -Liver enzymes likely elevated due to sepsis. WIll down trend with sepsis treated. Appreciate GI consult - repeat labs improved - cont d5ns - Start feeds vital 1.2 @10cc ONLY - Repleted K phos, mg, and calcium - monitor lytes closely ID - Sepsis secondary UTI vs Right sided PNA - Treating via vancomycin and zosyn - ID consult appreciated Endocrine - Hypoglycemia vs refeeding syndrome - Nutirition consult appreciated who states keep daily glucose under 150gm a day - pt keeps going hypoglycemic will monitor q2hr and give more glucose if hypoglycemic and symptomatic FEN - monitor electrolytes including phosphate and magnesium possible refeeding syndrome - Pt will get BMP Mg and Phos BID to monitor electrolyte def PPx - DVT- heparin 5000 units per day - Protonix held due to hypomagnesmia Visit type - Emergency Visit Emergency Visit: Yes ED Registration Date: 07/01/20 Care time: The patient presented to the Emergency Department on the above date and was hospitalized for further evaluation of their emergent condition. - New Patient This patient is new to me today: No - Critical Care Critical Care patient: Yes Total Critical Care Time (in minutes): 36 Critical Care Statement: The care of this patient involved high complexity decision making to prevent further life threatening deterioration of the patient's condition and/or to evaluate & treat vital organ system(s) failure or risk of failure. ATTENDING PHYSICIAN STATEMENT I saw and evaluated the patient. I reviewed the resident's note and discussed the case with the resident. I agree with the resident's findings and plan as documented. SUBJECTIVE: OBJECTIVE: ASSESSMENT AND PLAN:
[2020-07-05] MEDS ORDERED: DEXTROSE 50%-WATER 25 GM/50 ML DISP.SYRIN ONE ×2 (18:53→21:57)
[2020-07-05] MEDS ORDERED: DEXTROSE 50%-WATER - 25 GM/50 ML VIAL IVPUSH ONE ×3 (18:56→21:56)
--- NOTE | 2020-07-05 20:54 | PN ---
Progress Note, Physician - Current Medication List Current Medications: Active Medications Chlorhexidine Gluconate (Hibiclens For Decolonization -) 1 applic TP HS RAUL Last Admin: 07/04/20 22:12 Dose: 1 applic Documented by: Heparin Sodium (Porcine) (Heparin -) 5,000 unit SQ BID RAUL Last Admin: 07/05/20 12:20 Dose: 5,000 unit Documented by: Piperacillin Sod/Tazobactam (Sod 3.375 gm/ Dextrose) 50 mls @ 100 mls/hr IVPB Q8H-IV RAUL; Protocol Last Admin: 07/05/20 17:48 Dose: 100 mls/hr Documented by: Fentanyl (Sublimaze Ivpb) 500 mcg in 100 mls @ 3 mls/hr IVPB TITR RAUL Last Admin: 07/05/20 20:16 Dose: 80 mcg/hr, 16 mls/hr Documented by: Midazolam HCl 100 mg/ Sodium (Chloride) 100 mls @ 1 mls/hr IVPB TITR [facility]; Protocol Last Titration: 07/05/20 20:08 Dose: 1 mg/hr, 1 mls/hr Documented by: Dextrose/Sodium Chloride (D5-Ns -) 1,000 mls @ 30 mls/hr IV ASDIR RAUL Last Admin: 07/05/20 20:09 Dose: 30 mls/hr Documented by: Multivitamins/Minerals (Infuvite Adult -) 10 ml IV DAILY [facility] Last Admin: 07/05/20 14:47 Dose: Not Given Documented by: Multivitamins/Minerals (Certavite-Antioxidant Liquid) 15 ml PO DAILY [facility] Mupirocin (Bactroban Ointment (For Decolonization) -) 1 applic NS BID [facility] Stop: 07/08/20 09:59 Last Admin: 07/05/20 09:09 Dose: 1 applic Documented by: Thiamine HCl (Vitamin B1 Injection -) 100 mg IVPB DAILY RAUL Stop: 07/09/20 23:59 Last Admin: 07/05/20 20:14 Dose: Not Given Documented by: - Objective Vital Signs: Vital Signs Temperature 97.5 F L 07/05/20 16:00 Pulse Rate 64 07/05/20 16:00 Respiratory Rate 28 H 07/05/20 16:10 Blood Pressure 84/54 L 07/05/20 16:00 O2 Sat by Pulse Oximetry (%) 99 07/05/20 16:10 Labs: CBC, BMP 07/05/20 06:25 07/05/20 13:35 INR, PTT INR 2.39 (0.83-1.09) H 07/01/20 15:43 Problem List - Problems (1) At risk for electrolyte imbalance Code(s): Z91.89 - OT PERSONAL RISK FACTORS, NOT ELSEWHERE CLASSIFIED (2) Sepsis Code(s): A41.9 - SEPSIS, UNSPECIFIED ORGANISM Qualifiers: Sepsis type: sepsis due to unspecified organism Sepsis acute organ dysfunction status: unspecified Qualified Code(s): A41.9 - Sepsis, unspecified organism (3) SBO (small bowel obstruction) Code(s): K56.609 - UNSP INTESTNL OBST, UNSP TO PARTIAL VERSUS COMPLETE OBST (4) Respiratory failure Code(s): J96.90 - RESPIRATORY FAILURE, UNSP, UNSP W HYPOXIA OR HYPERCAPNIA (5) Liver cirrhosis, alcoholic Code(s): K70.30 - ALCOHOLIC CIRRHOSIS OF LIVER WITHOUT ASCITES (6) Hypoalbuminemia Code(s): E88.09 - OT DISORDERS OF PLASMA-PROTEIN METABOLISM, NEC (7) Substance abuse Code(s): F19.10 - OTHER PSYCHOACTIVE SUBSTANCE ABUSE, UNCOMPLICATED (8) Cachexia Code(s): R64 - CACHEXIA
[2020-07-05] MEDS: MIDAZOLAM 100 MG in SODIUM CHLORIDE 100 ML IVPB SCH (21:07)
[2020-07-05] MEDS: CHLORHEXIDINE GLUCONATE 4% CLEANSER FOR DECOLONIZATION TP SCH (21:08)
[2020-07-06 00:40] LABS: BLOOD UREA NITROGEN 25.4 mg/dL (7-18); CREATININE 0.2 mg/dL (0.55-1.3); MAGNESIUM 2.2 mg/dL (1.8-2.4); PHOSPHOROUS 2.4 mg/dL (2.5-4.9)
[2020-07-06 01:02] LABS: CALCIUM 6.1 mg/dL (8.5-10.1)
[2020-07-06] MEDS ORDERED: PIPERACILLIN/TAZOBACTAM 3.375 GM VIAL IVPB ONE ×4 (01:18→23:37)
[2020-07-06] MEDS ORDERED: DEXTROSE 5%-WATER - 50 ML IVPB ONE ×4 (01:19→23:37)
[2020-07-06] MEDS: PIPERACILLIN/TAZOB 3.375 GM 3.375 GM in DEXTROSE 5%-WATER - 50 ML IVPB SCH ×3 (02:45→17:00)
[2020-07-06] MEDS ORDERED: DEXTROSE 50%-WATER - 25 GM/50 ML VIAL ONE (05:52)
[2020-07-06] MEDS ORDERED: DEXTROSE 50%-WATER - 25 GM/50 ML VIAL IVPUSH ONE ×2 (05:55→21:33)
[2020-07-06] MEDS: FENTANYL NS IVPB 500 MCG/100 ML BAG IVPB SCH ×2 (06:01→17:29)
[2020-07-06 06:53] LABS: ARTERIAL BLD GAS O2 SATURATION 99.7 mmHg (95-98); ARTERIAL BLOOD GAS BASE EXCESS -9.8 mmol/L (-2-2); ARTERIAL BLOOD GAS PO2 298.1 mmHg (80-100)
[2020-07-06 07:02] LABS: ALLENS TEST POSITIVE
[2020-07-06 07:03] LABS: VENT MODE A/C; VENT RATE 15
[2020-07-06] MEDS: THIAMINE HCL 200 MG/2 ML VIAL IVPB SCH (08:59)
[2020-07-06] MEDS: HEPARIN NA (PORCINE) 5,000 UNITS/ML 1ML VIAL SQ SCH ×2 (09:00→21:45)
[2020-07-06] MEDS: MUPIROCIN 2% TOPICAL OINTMENT FOR DECOLONIZATION NS SCH ×2 (09:00→21:45)
[2020-07-06] MEDS: FOLIC ACID 1 MG TABLET (FP) NGT SCH (09:01)
[2020-07-06] MEDS: MULTIVIT INJ. ADULT COMBO WITH VIT K 1 COMBO 10 ML VIAL IV SCH (09:01)
[2020-07-06 09:35] LABS: BASO % 0.3 % (0-2.0); HEMATOCRIT 31.6 % (32.4-45.2); HEMOGLOBIN 10.6 GM/dL (10.7-15.3); LYMPH % 3.6 % (8-40); MCH 28.6 pg (25.7-33.7); MCHC 33.6 g/dl (32.0-36.0); MEAN CELL VOLUME 85.1 fl (80-96); MEAN PLT VOLUME 7.3 fl (7.5-11.1); MONO % 1.4 % (3.8-10.2); NEUT % 91.7 % (42.8-82.8); PLATELET COUNT 64 K/MM3 (134-434); RBC 3.72 M/mm3 (3.60-5.2); RDW 13.8 % (11.6-15.6); WHITE BLOOD COUNT 14.6 K/mm3 (4.0-10.0)
[2020-07-06 09:36] LABS: INR 2.08 (0.83-1.09); PROTHROMBIN TIME (PATIENT) 24.7 SEC (9.7-13.0)
[2020-07-06] MEDS ORDERED: MULTIVIT-MINERALS ORAL LIQUID PO SCH (10:00)
[2020-07-06 10:08] LABS: ALBUMIN 1.2 g/dl (3.4-5.0); BILIRUBIN,TOTAL 0.9 mg/dL (0.2-1); CREATININE 0.3 mg/dL (0.55-1.3); POTASSIUM 3.6 mmol/L (3.5-5.1); TOT PROT 4.5 g/dl (6.4-8.2)
[2020-07-06 10:11] LABS: BLOOD UREA NITROGEN 25.6 mg/dL (7-18)
[2020-07-06 10:19] LABS: CALCIUM 6.1 mg/dL (8.5-10.1)
--- NOTE | 2020-07-06 11:20 | PN ---
Teaching Attending Note Name of Resident: Gio Howard ATTENDING PHYSICIAN STATEMENT I saw and evaluated the patient. I reviewed the resident's note and discussed the case with the resident. I agree with the resident's findings and plan as documented. SUBJECTIVE: Pt seen and examined in the ICU. Remains intubated, sedated. No pressors. Lytes being repleted. No fevers recorded. OBJECTIVE: Vital Signs Period Temp Pulse Resp BP Sys/Campbell Pulse Ox Last 24 Hr 97.0 F-98.4 F 64-103 16-28 75-90/52-68 98-100 Intake & Output 07/03/20 07/04/20 07/05/20 07/06/20 23:59 23:59 23:59 23:59 Intake Total 1530.5 2798 1920 776 Output Total 1400 1050 1450 600 Balance 130.5 1748 470 176 Weight 30.391 kg 30.119 kg 31.751 kg 33.883 kg Gen: intubated, sedated Heart: RRR Lung: decreased breath sounds at the bases Abd: soft, nontender Ext: no edema CBC, BMP 07/06/20 08:05 07/06/20 08:05 Active Medications Chlorhexidine Gluconate (Hibiclens For Decolonization -) 1 applic TP HS RAUL Last Admin: 07/05/20 21:08 Dose: 1 applic Documented by: Folic Acid (Folic Acid -) 1 mg NGT DAILY RAUL Last Admin: 07/06/20 09:01 Dose: 1 mg Documented by: Heparin Sodium (Porcine) (Heparin -) 5,000 unit SQ BID RAUL Last Admin: 07/06/20 09:00 Dose: 5,000 unit Documented by: Piperacillin Sod/Tazobactam (Sod 3.375 gm/ Dextrose) 50 mls @ 100 mls/hr IVPB Q8H-IV RAUL; Protocol Last Admin: 07/06/20 08:59 Dose: 100 mls/hr Documented by: Fentanyl (Sublimaze Ivpb) 500 mcg in 100 mls @ 3 mls/hr IVPB TITR RAUL Last Admin: 07/06/20 06:01 Dose: 75 mcg/hr, 15 mls/hr Documented by: Midazolam HCl 100 mg/ Sodium (Chloride) 100 mls @ 1 mls/hr IVPB TITR RAUL; Protocol Last Titration: 07/05/20 21:37 Dose: 0.5 mg/hr, 0.5 mls/hr Documented by: Dextrose/Sodium Chloride (D5-Ns -) 1,000 mls @ 30 mls/hr IV ASDIR [facility] Last Admin: 07/05/20 20:09 Dose: 30 mls/hr Documented by: Multivitamins/Minerals (Infuvite Adult -) 10 ml IV DAILY [facility] Last Admin: 07/06/20 09:01 Dose: Not Given Documented by: Mupirocin (Bactroban Ointment (For Decolonization) -) 1 applic NS BID [facility] Stop: 07/08/20 09:59 Last Admin: 07/06/20 09:00 Dose: 1 applic Documented by: Thiamine HCl (Vitamin B1 Injection -) 100 mg IVPB DAILY [facility] Stop: 07/09/20 23:59 Last Admin: 07/06/20 08:59 Dose: 100 mg Documented by: ASSESSMENT AND PLAN: Acute Hypoxic Respiratory Failure Pneumonia likely Aspiration UTI Sepsis Hyponatremia Small Bowel Obstruction Alcohol/Heroin Abuse Anemia Failure to Thrive Severe Protein Calorie Malnutrition Refeeding Syndrome - replete lytes - monitor BMP closely - continue antibiotics - f/u cultures - titrate O2 to keep SpO2 >90% - sedate for vent synchrony - continue volume assist control - slowly increase enteral feeds - DVT prophylaxis - continue ICU monitoring critical care time spent in reviewing chart, evaluating patient and formulating plan 35 min
[2020-07-06 11:24] LABS: ANISOCYTOSIS 0; MACROCYTOSIS 0; PLATELET ESTIMATE DECREASED
[2020-07-06] MEDS: MULTIVIT-MINERALS ORAL LIQUID NGT SCH (12:30)
[2020-07-06] MEDS ORDERED: POTASSIUM PHOSPHATE 30 MM in SODIUM CHLORIDE 500 ML IVPB ONE (12:30)
[2020-07-06] MEDS: DEXTROSE 5%-NORMAL SALINE 1,000 ML IV SCH (14:00)
--- NOTE | 2020-07-06 14:01 | PN ---
Progress Note, Physician History of Present Illness: continues to be intubated wbc has jumped up - Current Medication List Current Medications: Active Medications Chlorhexidine Gluconate (Hibiclens For Decolonization -) 1 applic TP HS [facility] Last Admin: 07/05/20 21:08 Dose: 1 applic Documented by: Folic Acid (Folic Acid -) 1 mg NGT DAILY [facility] Last Admin: 07/06/20 09:01 Dose: 1 mg Documented by: Heparin Sodium (Porcine) (Heparin -) 5,000 unit SQ BID RAUL Last Admin: 07/06/20 09:00 Dose: 5,000 unit Documented by: Piperacillin Sod/Tazobactam (Sod 3.375 gm/ Dextrose) 50 mls @ 100 mls/hr IVPB Q8H-IV [facility]; Protocol Last Admin: 07/06/20 08:59 Dose: 100 mls/hr Documented by: Fentanyl (Sublimaze Ivpb) 500 mcg in 100 mls @ 3 mls/hr IVPB TITR [facility] Last Admin: 07/06/20 06:01 Dose: 75 mcg/hr, 15 mls/hr Documented by: Midazolam HCl 100 mg/ Sodium (Chloride) 100 mls @ 1 mls/hr IVPB TITR [facility]; Protocol Last Titration: 07/05/20 21:37 Dose: 0.5 mg/hr, 0.5 mls/hr Documented by: Dextrose/Sodium Chloride (D5-Ns -) 1,000 mls @ 30 mls/hr IV ASDIR [facility] Last Admin: 07/05/20 20:09 Dose: 30 mls/hr Documented by: Potassium Phosphate 30 mm/ (Sodium Chloride) 510 mls @ 62.5 mls/hr IVPB ONCE ONE Stop: 07/06/20 20:39 Last Admin: 07/06/20 12:30 Dose: 62.5 mls/hr Documented by: Multivitamins/Minerals (Certavite-Antioxidant Liquid) 15 ml NGT DAILY [facility] Last Admin: 07/06/20 12:30 Dose: 15 ml Documented by: Mupirocin (Bactroban Ointment (For Decolonization) -) 1 applic NS BID [facility] Stop: 07/08/20 09:59 Last Admin: 07/06/20 09:00 Dose: 1 applic Documented by: Thiamine HCl (Vitamin B1 Injection -) 100 mg IVPB DAILY [facility]UL Stop: 07/09/20 23:59 Last Admin: 07/06/20 08:59 Dose: 100 mg Documented by: - Objective Vital Signs: Vital Signs Temperature 97.1 F L 07/06/20 10:00 Pulse Rate 77 07/06/20 12:00 Respiratory Rate 17 07/06/20 12:09 Blood Pressure 75/55 L 07/06/20 12:00 O2 Sat by Pulse Oximetry (%) 99 07/06/20 12:29 Constitutional: Yes: Thin, Other (failure to thrive) Cardiovascular: Yes: S1, S2 Respiratory: Yes: Intubated, Mechanically Ventilated Musculoskeletal: Yes: WNL Extremities: Yes: WNL Labs: CBC, BMP 07/06/20 08:05 07/06/20 08:05 INR, PTT INR 2.08 (0.83-1.09) H 07/06/20 08:05 Assessment/Plan Pneumonia likely Aspiration UTI Sepsis Hyponatremia SBO resolving Alcohol/Heroin Abuse Anemia Failure to Thrive Severe Protein Calorie Malnutrition plan continue current mgmt abx nutrition rest as per icu will stop vanco consider changing the mistry wbc has increased monitor wbc losely if continues to increase--pat culture cc 40 min
--- NOTE | 2020-07-06 14:26 | PN ---
Progress Note, Physician History of Present Illness: INTUBATED AND SEDATED - Current Medication List Current Medications: Active Medications Chlorhexidine Gluconate (Hibiclens For Decolonization -) 1 applic TP HS [facility] Last Admin: 07/05/20 21:08 Dose: 1 applic Documented by: Folic Acid (Folic Acid -) 1 mg NGT DAILY [facility] Last Admin: 07/06/20 09:01 Dose: 1 mg Documented by: Heparin Sodium (Porcine) (Heparin -) 5,000 unit SQ BID [facility] Last Admin: 07/06/20 09:00 Dose: 5,000 unit Documented by: Piperacillin Sod/Tazobactam (Sod 3.375 gm/ Dextrose) 50 mls @ 100 mls/hr IVPB Q8H-IV [facility]; Protocol Last Admin: 07/06/20 08:59 Dose: 100 mls/hr Documented by: Fentanyl (Sublimaze Ivpb) 500 mcg in 100 mls @ 3 mls/hr IVPB TITR [facility] Last Admin: 07/06/20 06:01 Dose: 75 mcg/hr, 15 mls/hr Documented by: Midazolam HCl 100 mg/ Sodium (Chloride) 100 mls @ 1 mls/hr IVPB TITR [facility]; Protocol Last Titration: 07/05/20 21:37 Dose: 0.5 mg/hr, 0.5 mls/hr Documented by: Dextrose/Sodium Chloride (D5-Ns -) 1,000 mls @ 30 mls/hr IV ASDIR [facility] Last Admin: 07/05/20 20:09 Dose: 30 mls/hr Documented by: Potassium Phosphate 30 mm/ (Sodium Chloride) 510 mls @ 62.5 mls/hr IVPB ONCE ONE Stop: 07/06/20 20:39 Last Admin: 07/06/20 12:30 Dose: 62.5 mls/hr Documented by: Multivitamins/Minerals (Certavite-Antioxidant Liquid) 15 ml NGT DAILY [facility] Last Admin: 07/06/20 12:30 Dose: 15 ml Documented by: Mupirocin (Bactroban Ointment (For Decolonization) -) 1 applic NS BID [facility] Stop: 07/08/20 09:59 Last Admin: 07/06/20 09:00 Dose: 1 applic Documented by: Thiamine HCl (Vitamin B1 Injection -) 100 mg IVPB DAILY [facility] Stop: 07/09/20 23:59 Last Admin: 09/04/20 08:59 Dose: 100 mg Documented by: - Objective Vital Signs: Vital Signs Temperature 97.1 F L 07/06/20 10:00 Pulse Rate 77 07/06/20 12:00 Respiratory Rate 17 07/06/20 12:09 Blood Pressure 75/55 L 07/06/20 12:00 O2 Sat by Pulse Oximetry (%) 99 07/06/20 12:29 HENT: Yes: Atraumatic Neck: Yes: Supple Cardiovascular: Yes: Regular Rate and Rhythm Respiratory: Yes: Rhonchi Gastrointestinal: Yes: Normal Bowel Sounds Extremities: Yes: WNL Labs: CBC, BMP 07/06/20 08:05 07/06/20 08:05 INR, PTT INR 2.08 (0.83-1.09) H 07/06/20 08:05 Problem List - Problems (1) At risk for electrolyte imbalance Assessment/Plan: MONITOR AND REPLACE Code(s): Z91.89 - OT PERSONAL RISK FACTORS, NOT ELSEWHERE CLASSIFIED (2) SBO (small bowel obstruction) Assessment/Plan: NPO Code(s): K56.609 - UNSP INTESTNL OBST, UNSP TO PARTIAL VERSUS COMPLETE OBST (3) Sepsis Assessment/Plan: ON IV ABX CXS NOTED ID ON BOARD Code(s): A41.9 - SEPSIS, UNSPECIFIED ORGANISM Qualifiers: Sepsis type: sepsis due to unspecified organism Sepsis acute organ dysfunction status: unspecified Qualified Code(s): A41.9 - Sepsis, unspecified organism (4) Alcoholic liver damage Code(s): K70.9 - ALCOHOLIC LIVER DISEASE, UNSPECIFIED (5) Hypoalbuminemia Code(s): E88.09 - OTH DISORDERS OF PLASMA-PROTEIN METABOLISM, NEC (6) Hyponatremia Code(s): E87.1 - HYPO-OSMOLALITY AND HYPONATREMIA (7) Liver cirrhosis, alcoholic Code(s): K70.30 - ALCOHOLIC CIRRHOSIS OF LIVER WITHOUT ASCITES (8) Ischemic hepatitis Code(s): K75.9 - INFLAMMATORY LIVER DISEASE, UNSPECIFIED (9) Respiratory failure Assessment/Plan: INTUBATED AND SEDATED Code(s): J96.90 - RESPIRATORY FAILURE, UNSP, UNSP W HYPOXIA OR HYPERCAPNIA (10) UTI (urinary tract infection) Assessment/Plan: SEPSIS ON IV ABX Code(s): N39.0 - URINARY TRACT INFECTION, SITE NOT SPECIFIED Qualifiers: Urinary tract infection type: site unspecified Hematuria presence: with hematuria Qualified Code(s): N39.0 - Urinary tract infection, site not specified; R31.9 - Hematuria, unspecified (11) Elevated LFTs Code(s): R79.89 - OTHER SPECIFIED ABNORMAL FINDINGS OF BLOOD CHEMISTRY Assessment/Plan COVERING FOR DR FOREMAN TODAY ICU CC TIME 35 MIN
--- NOTE | 2020-07-06 15:18 | PN ---
Progress Note, Physician History of Present Illness: Pt seen and examined at bedside. She remains in the ICU. She remains intubated. - Current Medication List Current Medications: Active Medications Chlorhexidine Gluconate (Hibiclens For Decolonization -) 1 applic TP HS [facility] Last Admin: 07/05/20 21:08 Dose: 1 applic Documented by: Folic Acid (Folic Acid -) 1 mg NGT DAILY [facility] Last Admin: 07/06/20 09:01 Dose: 1 mg Documented by: Heparin Sodium (Porcine) (Heparin -) 5,000 unit SQ BID [facility] Last Admin: 07/06/20 09:00 Dose: 5,000 unit Documented by: Piperacillin Sod/Tazobactam (Sod 3.375 gm/ Dextrose) 50 mls @ 100 mls/hr IVPB Q8H-IV [facility]; Protocol Last Admin: 07/06/20 08:59 Dose: 100 mls/hr Documented by: Fentanyl (Sublimaze Ivpb) 500 mcg in 100 mls @ 3 mls/hr IVPB TITR [facility] Last Admin: 07/06/20 06:01 Dose: 75 mcg/hr, 15 mls/hr Documented by: Midazolam HCl 100 mg/ Sodium (Chloride) 100 mls @ 1 mls/hr IVPB TITR [facility]; Protocol Last Titration: 07/05/20 21:37 Dose: 0.5 mg/hr, 0.5 mls/hr Documented by: Dextrose/Sodium Chloride (D5-Ns -) 1,000 mls @ 30 mls/hr IV ASDIR [facility] Last Admin: 07/05/20 20:09 Dose: 30 mls/hr Documented by: Potassium Phosphate 30 mm/ (Sodium Chloride) 510 mls @ 62.5 mls/hr IVPB ONCE ONE Stop: 07/06/20 20:39 Last Admin: 07/06/20 12:30 Dose: 62.5 mls/hr Documented by: Multivitamins/Minerals (Certavite-Antioxidant Liquid) 15 ml NGT DAILY [facility] Last Admin: 07/06/20 12:30 Dose: 15 ml Documented by: Mupirocin (Bactroban Ointment (For Decolonization) -) 1 applic NS BID [facility] Stop: 07/08/20 09:59 Last Admin: 07/06/20 09:00 Dose: 1 applic Documented by: Thiamine HCl (Vitamin B1 Injection -) 100 mg IVPB DAILY [facility] Stop: 07/09/20 23:59 Last Admin: 07/06/20 08:59 Dose: 100 mg Documented by: - Objective Vital Signs: Vital Signs Temperature 97.2 F L 07/06/20 14:00 Pulse Rate 84 07/06/20 14:00 Respiratory Rate 17 07/06/20 14:00 Blood Pressure 78/60 L 07/06/20 14:00 O2 Sat by Pulse Oximetry (%) 100 07/06/20 14:00 Constitutional: Yes: Calm, Cachectic HENT: Yes: Atraumatic Neck: Yes: Supple Cardiovascular: Yes: S1, S2 Respiratory: Yes: Mechanically Ventilated Gastrointestinal: Yes: Normal Bowel Sounds, Soft Musculoskeletal: Yes: Muscle Weakness Edema: No Neurological: Yes: Lethargy Labs: CBC, BMP 07/06/20 08:05 07/06/20 08:05 INR, PTT INR 2.08 (0.83-1.09) H 07/06/20 08:05 Problem List - Problems (1) Hypoglycemia Code(s): E16.2 - HYPOGLYCEMIA, UNSPECIFIED (2) Sepsis Code(s): A41.9 - SEPSIS, UNSPECIFIED ORGANISM Qualifiers: Sepsis type: sepsis due to unspecified organism Sepsis acute organ dysfunction status: unspecified Qualified Code(s): A41.9 - Sepsis, unspecified organism (3) Hypoalbuminemia Code(s): E88.09 - OTH DISORDERS OF PLASMA-PROTEIN METABOLISM, NEC (4) Hyponatremia Code(s): E87.1 - HYPO-OSMOLALITY AND HYPONATREMIA Assessment/Plan Current Medications Generic Name Dose Route Start Last Admin Trade Name Ruben PRN Reason Stop Dose Admin Chlorhexidine Gluconate 1 applic 07/03/20 22:00 07/05/20 21:08 Hibiclens For Decolonization - TP 1 applic HS [facility] Administration Folic Acid 1 mg 07/06/20 10:00 07/06/20 09:01 Folic Acid - NGT 1 mg DAILY [facility] Administration Heparin Sodium (Porcine) 5,000 unit 07/02/20 10:00 07/06/20 09:00 Heparin - SQ 5,000 unit BID [facility] Administration Piperacillin Sod/Tazobactam 50 mls @ 100 mls/hr 07/02/20 18:00 07/06/20 08:59 Sod 3.375 gm/ Dextrose IVPB 100 mls/hr Q8H-IV [facility] Administration Protocol Fentanyl 500 mcg in 100 mls @ 3 mls/hr 07/04/20 16:30 07/06/20 06:01 Sublimaze Ivpb IVPB 75 mcg/hr TITR [facility] 15 mls/hr Administration 15 MCG/HR Midazolam HCl 100 mg/ Sodium 100 mls @ 1 mls/hr 07/04/20 20:45 07/05/20 21:37 Chloride IVPB 0.5 mg/hr TITR [facility] 0.5 mls/hr Titration Protocol 1 MG/HR Dextrose/Sodium Chloride 1,000 mls @ 30 mls/hr 07/05/20 13:30 07/05/20 20:09 D5-Ns - IV 30 mls/hr ASDIR [facility] Administration Potassium Phosphate 30 mm/ 510 mls @ 62.5 mls/hr 07/06/20 12:30 07/06/20 12:30 Sodium Chloride IVPB 07/06/20 20:39 62.5 mls/hr ONCE ONE Administration Multivitamins/Minerals 15 ml 07/06/20 11:45 07/06/20 12:30 Certavite-Antioxidant Liquid NGT 15 ml DAILY [facility] Administration Mupirocin 1 applic 07/03/20 10:00 07/06/20 09:00 Bactroban Ointment (For Decolonization) - NS 07/08/20 09:59 1 applic BID [facility] Administration Thiamine HCl 100 mg 07/04/20 18:15 07/06/20 08:59 Vitamin B1 Injection - IVPB 07/09/20 23:59 100 mg DAILY [facility] Administration Impression 1. azotemia 2. hyponatremia 3. hyperkalemia 4. hypotension 5. sepsis 6. sbo 7. uti 8. liver cirrhosis 9. hypoalbuminemia 10. etoh abuse 11. substance abuse 12. psoriasis 13. acute resp failure 14. malnutrition Plan - cont to titrate feeds - replace lytes - cont vent support - monitor bicarb level - monitor glucose - discussed with ICU team
[2020-07-06 17:31] LABS: ALBUMIN 1.2 g/dl (3.4-5.0); BILIRUBIN,TOTAL 1.2 mg/dL (0.2-1); BLOOD UREA NITROGEN 23.6 mg/dL (7-18); CREATININE 0.3 mg/dL (0.55-1.3); MAGNESIUM 2.1 mg/dL (1.8-2.4); PHOSPHOROUS 3.6 mg/dL (2.5-4.9); POTASSIUM 3.8 mmol/L (3.5-5.1); TOT PROT 4.4 g/dl (6.4-8.2)
[2020-07-06 17:47] LABS: CALCIUM 6.1 mg/dL (8.5-10.1)
--- NOTE | 2020-07-06 18:16 | PN ---
Physical Exam: SUBJECTIVE: Patient seen and examined intubated and sedated OBJECTIVE: GENERAL: Intubated and sedated HEAD: No signs of trauma, normocephalic, atraumatic EYES: PERRLA, EOMI, sclera anicteric, conjunctiva clear ENT: Auricles normal inspection, hearing grossly normal, nares patent NECK: Normal ROM, supple, no lymphadenopathy, JVD, or masses LUNGS: dec breath sounds at bilateral bases HEART: Regular rate and rhythm, normal S1 and S2, no murmurs, rubs or gallops, peripheral pulses normal and equal bilaterally. ABDOMEN: Soft, nontender, normoactive bowel sounds. No guarding, no rebound. No masses EXTREMITIES : cachectic NEUROLOGICAL: Pt able to respond to command SKIN:Cachectic Vital Signs Period Temp Pulse Resp BP Sys/Campbell Pulse Ox Last 24 Hr 97.1 F-98.4 F 65-103 16-28 75-90/54-68 99-100 Laboratory Results - last 24 hr 07/05/20 07/05/20 07/05/20 14:50 18:50 18:52 WBC RBC Hgb Hct MCV MCH MCHC RDW Plt Count MPV Absolute Neuts (auto) Neutrophils % Neutrophils % (Manual) Band Neutrophils % Lymphocytes % Lymphocytes % (Manual) Monocytes % Monocytes % (Manual) Eosinophils % Eosinophils % (Manual) Basophils % Basophils % (Manual) Myelocytes % (Man) Promyelocytes % (Man) Blast Cells % (Manual) Nucleated RBC % Metamyelocytes Hypochromia Platelet Estimate Polychromasia Poikilocytosis Anisocytosis Microcytosis Macrocytosis PT with INR INR Anticoagulation Therapy Puncture Site Patient Temperature ABG pH ABG pCO2 ABG pO2 ABG HCO3 ABG O2 Sat (Measured) ABG O2 Content ABG Base Excess Yandel Test Patient On Oxygen O2 Delivery Device Oxygen Flow Rate Vent Mode Vent Rate Mechanical Rate PEEP Pressure Support Vent Sodium Potassium Chloride Carbon Dioxide Anion Gap BUN Creatinine Est GFR (CKD-EPI)AfAm Est GFR (CKD-EPI)NonAf POC Glucometer 47 46 Random Glucose Calcium Phosphorus Magnesium Total Bilirubin AST ALT Alkaline Phosphatase Total Protein Albumin Stool Occult Blood Positive 07/05/20 07/05/20 07/06/20 21:44 23:41 05:30 WBC RBC Hgb Hct MCV MCH MCHC RDW Plt Count MPV Absolute Neuts (auto) Neutrophils % Neutrophils % (Manual) Band Neutrophils % Lymphocytes % Lymphocytes % (Manual) Monocytes % Monocytes % (Manual) Eosinophils % Eosinophils % (Manual) Basophils % Basophils % (Manual) Myelocytes % (Man) Promyelocytes % (Man) Blast Cells % (Manual) Nucleated RBC % Metamyelocytes Hypochromia Platelet Estimate Polychromasia Poikilocytosis Anisocytosis Microcytosis Macrocytosis PT with INR INR Anticoagulation Therapy No Result Required. Puncture Site Right radial Patient Temperature No Result Required. ABG pH 7.460 H ABG pCO2 17.20 L ABG pO2 298.1 H ABG HCO3 12.0 L ABG O2 Sat (Measured) 99.7 H ABG O2 Content No Result Required. ABG Base Excess -9.8 L Yandel Test Positive Patient On Oxygen Yes O2 Delivery Device Vent Oxygen Flow Rate 100% Vent Mode A/c Vent Rate 15 Mechanical Rate Yes PEEP 5.0 Pressure Support Vent 350 Sodium 130 L Potassium 4.0 Chloride 105 Carbon Dioxide 14 L Anion Gap 10 BUN 25.4 H Creatinine 0.2 L Est GFR (CKD-EPI)AfAm 197.84 Est GFR (CKD-EPI)NonAf 170.70 POC Glucometer 68 Random Glucose 86 Calcium 6.1 L* Phosphorus 2.4 L Magnesium 2.2 Total Bilirubin AST ALT Alkaline Phosphatase Total Protein Albumin Stool Occult Blood 07/06/20 07/06/20 07/06/20 05:45 05:47 08:05 WBC 14.6 H RBC 3.72 Hgb 10.6 L Hct 31.6 L D MCV 85.1 MCH 28.6 MCHC 33.6 RDW 13.8 Plt Count 64 L D MPV 7.3 L Absolute Neuts (auto) 13.4 H Neutrophils % 91.7 H Neutrophils % (Manual) 90.1 H Band Neutrophils % 0.0 Lymphocytes % 3.6 L D Lymphocytes % (Manual) 5.9 L D Monocytes % 1.4 L D Monocytes % (Manual) 2 L D Eosinophils % 3.0 Eosinophils % (Manual) 2.0 Basophils % 0.3 Basophils % (Manual) 0.0 Myelocytes % (Man) 0 Promyelocytes % (Man) 0 Blast Cells % (Manual) 0 Nucleated RBC % 0 Metamyelocytes 0 Hypochromia 0 Platelet Estimate Decreased Polychromasia 0 Poikilocytosis 0 Anisocytosis 0 Microcytosis 0 Macrocytosis 0 PT with INR INR Anticoagulation Therapy Puncture Site Patient Temperature ABG pH ABG pCO2 ABG pO2 ABG HCO3 ABG O2 Sat (Measured) ABG O2 Content ABG Base Excess Yandel Test Patient On Oxygen O2 Delivery Device Oxygen Flow Rate Vent Mode Vent Rate Mechanical Rate PEEP Pressure Support Vent Sodium Potassium Chloride Carbon Dioxide Anion Gap BUN Creatinine Est GFR (CKD-EPI)AfAm Est GFR (CKD-EPI)NonAf POC Glucometer 56 55 Random Glucose Calcium Phosphorus Magnesium Total Bilirubin AST ALT Alkaline Phosphatase Total Protein Albumin Stool Occult Blood 07/06/20 07/06/20 07/06/20 08:05 08:05 10:02 WBC RBC Hgb Hct MCV MCH MCHC RDW Plt Count MPV Absolute Neuts (auto) Neutrophils % Neutrophils % (Manual) Band Neutrophils % Lymphocytes % Lymphocytes % (Manual) Monocytes % Monocytes % (Manual) Eosinophils % Eosinophils % (Manual) Basophils % Basophils % (Manual) Myelocytes % (Man) Promyelocytes % (Man) Blast Cells % (Manual) Nucleated RBC % Metamyelocytes Hypochromia Platelet Estimate Polychromasia Poikilocytosis Anisocytosis Microcytosis Macrocytosis PT with INR 24.70 H INR 2.08 H Anticoagulation Therapy Puncture Site Patient Temperature ABG pH ABG pCO2 ABG pO2 ABG HCO3 ABG O2 Sat (Measured) ABG O2 Content ABG Base Excess Yandel Test Patient On Oxygen O2 Delivery Device Oxygen Flow Rate Vent Mode Vent Rate Mechanical Rate PEEP Pressure Support Vent Sodium 130 L Potassium 3.6 Chloride 104 Carbon Dioxide 15 L Anion Gap 10 BUN 25.6 H Creatinine 0.3 L Est GFR (CKD-EPI)AfAm 173.14 Est GFR (CKD-EPI)NonAf 149.38 POC Glucometer 85 Random Glucose 62 L Calcium 6.1 L* Phosphorus 2.0 L Magnesium 2.0 Total Bilirubin 0.9 AST 800 H ALT 573 H Alkaline Phosphatase 967 H Total Protein 4.5 L Albumin 1.2 L Stool Occult Blood 07/06/20 16:25 WBC RBC Hgb Hct MCV MCH MCHC RDW Plt Count MPV Absolute Neuts (auto) Neutrophils % Neutrophils % (Manual) Band Neutrophils % Lymphocytes % Lymphocytes % (Manual) Monocytes % Monocytes % (Manual) Eosinophils % Eosinophils % (Manual) Basophils % Basophils % (Manual) Myelocytes % (Man) Promyelocytes % (Man) Blast Cells % (Manual) Nucleated RBC % Metamyelocytes Hypochromia Platelet Estimate Polychromasia Poikilocytosis Anisocytosis Microcytosis Macrocytosis PT with INR INR Anticoagulation Therapy Puncture Site Patient Temperature ABG pH ABG pCO2 ABG pO2 ABG HCO3 ABG O2 Sat (Measured) ABG O2 Content ABG Base Excess Yandel Test Patient On Oxygen O2 Delivery Device Oxygen Flow Rate Vent Mode Vent Rate Mechanical Rate PEEP Pressure Support Vent Sodium 131 L Potassium 3.8 Chloride 106 Carbon Dioxide 17 L Anion Gap 9 BUN 23.6 H Creatinine 0.3 L Est GFR (CKD-EPI)AfAm 173.14 Est GFR (CKD-EPI)NonAf 149.38 POC Glucometer Random Glucose 56 L Calcium 6.1 L* Phosphorus 3.6 Magnesium 2.1 Total Bilirubin 1.2 H AST 1059 H ALT 702 H Alkaline Phosphatase 1081 H Total Protein 4.4 L Albumin 1.2 L Stool Occult Blood Active Medications Generic Name Dose Route Start Last Admin Trade Name Freq PRN Reason Stop Dose Admin Chlorhexidine Gluconate 1 applic 07/03/20 22:00 07/05/20 21:08 Hibiclens For Decolonization - TP 1 applic HS [facility] Administration Folic Acid 1 mg 07/06/20 10:00 07/06/20 09:01 Folic Acid - NGT 1 mg DAILY [facility] Administration Heparin Sodium (Porcine) 5,000 unit 07/02/20 10:00 07/06/20 09:00 Heparin - SQ 5,000 unit BID [facility] Administration Piperacillin Sod/Tazobactam 50 mls @ 100 mls/hr 07/02/20 18:00 07/06/20 17:00 Sod 3.375 gm/ Dextrose IVPB 100 mls/hr Q8H-IV [facility] Administration Protocol Fentanyl 500 mcg in 100 mls @ 3 mls/hr 07/04/20 16:30 07/06/20 17:29 Sublimaze Ivpb IVPB 75 mcg/hr TITR [facility] 15 mls/hr Administration 15 MCG/HR Midazolam HCl 100 mg/ Sodium 100 mls @ 1 mls/hr 07/04/20 20:45 07/05/20 21:37 Chloride IVPB 0.5 mg/hr TITR [facility] 0.5 mls/hr Titration Protocol 1 MG/HR Dextrose/Sodium Chloride 1,000 mls @ 30 mls/hr 07/05/20 13:30 07/06/20 14:00 D5-Ns - IV 30 mls/hr ASDIR [facility] Administration Potassium Phosphate 30 mm/ 510 mls @ 62.5 mls/hr 07/06/20 12:30 07/06/20 12:30 Sodium Chloride IVPB 07/06/20 20:39 62.5 mls/hr ONCE ONE Administration Multivitamins/Minerals 15 ml 07/06/20 11:45 07/06/20 12:30 Certavite-Antioxidant Liquid NGT 15 ml DAILY [facility] Administration Mupirocin 1 applic 07/03/20 10:00 07/06/20 09:00 Bactroban Ointment (For Decolonization) - NS 07/08/20 09:59 1 applic BID [facility] Administration Thiamine HCl 100 mg 07/04/20 18:15 07/06/20 08:59 Vitamin B1 Injection - IVPB 07/09/20 23:59 100 mg DAILY [facility] Administration ASSESSMENT/PLAN: 34 yo female coming in to ICU due to possible sepsis due to UTI and PNA, Refeeding syndrome, and SBO Neuro - Altered Mental Status- Most likely due to hypoglycemia. - Pt now intubated and sedated on Fentanyl and midazolam Cardiac - HTN- will hold bp meds - Monitoring BP keep >65. Resp - pt has history of asthma- will give albuterol if pt has asthma - Pt was tachypnic and having trouble breathing so was intubated 07/04 now saturating at 100% - pts vent settings RR 15, Vt: 350 FiO2: 100 PEEP 5 GI - SBO - Appreciate Surgery consult - Will do NG tube PRN - WIll keep pt NPO and give IV hydration - CT of abd/pelvis with oral contrast- SBO with moderate improvement will continue to monitor Xrays - xray 07/06- shows moderate improvement of SBO -Liver enzymes likely elevated due to sepsis. WIll down trend with sepsis treated. Appreciate GI consult - repeat labs improved - cont d5ns - Repleted K phos, mg, and calcium - monitor lytes closely ID - Sepsis secondary UTI vs Right sided PNA - Treating via zosyn - ID consult appreciated - Will change mistry - if wbc continues uptrending will panculture Endocrine - Hypoglycemia vs refeeding syndrome - Nutirition consult appreciated who states keep daily glucose under 150gm a day - pt keeps going hypoglycemic will monitor q2hr and give more glucose if hypoglycemic and symptomatic (give only half of D25) - Start feeds vital 1.2 @10cc ONLY. Will increase feeds on 07/08 to 20cc only if electrolytes are coming back normal. Then will increase to 30cc on 07/10 if electrolytes again are coming back normal. Goal rate is 42. FEN - monitor electrolytes including phosphate and magnesium possible refeeding syndrome - Pt will get BMP Mg and Phos BID to monitor electrolyte def PPx - DVT- heparin 5000 units per day - Protonix held due to hypomagnesmia Visit type - Emergency Visit Emergency Visit: Yes ED Registration Date: 07/01/20 Care time: The patient presented to the Emergency Department on the above date and was hospitalized for further evaluation of their emergent condition. - New Patient This patient is new to me today: No - Critical Care Critical Care patient: Yes Total Critical Care Time (in minutes): 36 Critical Care Statement: The care of this patient involved high complexity decision making to prevent further life threatening deterioration of the patient's condition and/or to evaluate & treat vital organ system(s) failure or risk of failure. ATTENDING PHYSICIAN STATEMENT I saw and evaluated the patient. I reviewed the resident's note and discussed the case with the resident. I agree with the resident's findings and plan as documented. SUBJECTIVE: OBJECTIVE: ASSESSMENT AND PLAN:
[2020-07-06] MEDS: CHLORHEXIDINE GLUCONATE 4% CLEANSER FOR DECOLONIZATION TP SCH (21:45)
[2020-07-06] MEDS: MIDAZOLAM 100 MG in SODIUM CHLORIDE 100 ML IVPB SCH (21:45)
[2020-07-07] MEDS: PIPERACILLIN/TAZOB 3.375 GM 3.375 GM in DEXTROSE 5%-WATER - 50 ML IVPB SCH ×3 (02:15→17:12)
[2020-07-07] MEDS ORDERED: DEXTROSE 50%-WATER - 25 GM/50 ML VIAL IVPUSH ONE (02:31)
[2020-07-07] MEDS: FENTANYL NS IVPB 500 MCG/100 ML BAG IVPB SCH ×2 (03:55→16:30)
[2020-07-07 06:16] LABS: ARTERIAL BLD GAS O2 SATURATION 99.5 mmHg (95-98); ARTERIAL BLOOD GAS BASE EXCESS -8.1 mmol/L (-2-2); ARTERIAL BLOOD GAS PO2 208.8 mmHg (80-100); ARTERIAL BLOOD GAS pH 7.451 (7.350-7.450)
[2020-07-07 06:26] LABS: ALLENS TEST POSITIVE; VENT MODE A/C; VENT RATE 15
[2020-07-07] MEDS ORDERED: DEXTROSE 5%-WATER - 50 ML IVPB ONE ×2 (08:13→17:05)
[2020-07-07] MEDS ORDERED: PIPERACILLIN/TAZOBACTAM 3.375 GM VIAL IVPB ONE ×2 (08:13→17:05)
[2020-07-07] MEDS: HEPARIN NA (PORCINE) 5,000 UNITS/ML 1ML VIAL SQ SCH ×2 (09:10→22:02)
[2020-07-07] MEDS: MUPIROCIN 2% TOPICAL OINTMENT FOR DECOLONIZATION NS SCH ×2 (09:10→22:02)
[2020-07-07] MEDS: THIAMINE HCL 200 MG/2 ML VIAL IVPB SCH (09:10)
[2020-07-07] MEDS: FOLIC ACID 1 MG TABLET (FP) NGT SCH (09:10)
[2020-07-07] MEDS ORDERED: PT OWN MED DRAWER 7, Y5N ONE (09:15)
[2020-07-07] MEDS: MULTIVIT-MINERALS ORAL LIQUID NGT SCH (09:17)
--- NOTE | 2020-07-07 12:32 | PN ---
Progress Note, Physician History of Present Illness: continues to be intubated - Current Medication List Current Medications: Active Medications Chlorhexidine Gluconate (Hibiclens For Decolonization -) 1 applic TP HS [facility] Last Admin: 07/06/20 21:45 Dose: 1 applic Documented by: Folic Acid (Folic Acid -) 1 mg NGT DAILY [facility] Last Admin: 07/07/20 09:10 Dose: 1 mg Documented by: Heparin Sodium (Porcine) (Heparin -) 5,000 unit SQ BID [facility] Last Admin: 07/07/20 09:10 Dose: 5,000 unit Documented by: Piperacillin Sod/Tazobactam (Sod 3.375 gm/ Dextrose) 50 mls @ 100 mls/hr IVPB Q8H-IV [facility]; Protocol Last Admin: 07/07/20 09:09 Dose: 100 mls/hr Documented by: Fentanyl (Sublimaze Ivpb) 500 mcg in 100 mls @ 3 mls/hr IVPB TITR [facility] Last Admin: 07/07/20 03:55 Dose: 75 mcg/hr, 15 mls/hr Documented by: Midazolam HCl 100 mg/ Sodium (Chloride) 100 mls @ 1 mls/hr IVPB TITR [facility]; Protocol Last Admin: 07/06/20 21:45 Dose: Not Given Documented by: Dextrose/Sodium Chloride (D5-Ns -) 1,000 mls @ 30 mls/hr IV ASDIR [facility] Last Admin: 07/06/20 14:00 Dose: 30 mls/hr Documented by: Multivitamins/Minerals (Certavite-Antioxidant Liquid) 15 ml NGT DAILY [facility] Last Admin: 07/07/20 09:17 Dose: 15 ml Documented by: Mupirocin (Bactroban Ointment (For Decolonization) -) 1 applic NS BID [facility] Stop: 07/08/20 09:59 Last Admin: 07/07/20 09:10 Dose: 1 applic Documented by: Thiamine HCl (Vitamin B1 Injection -) 100 mg IVPB DAILY [facility] Stop: 07/09/20 23:59 Last Admin: 07/07/20 09:10 Dose: 100 mg Documented by: - Objective Vital Signs: Vital Signs Temperature 97.7 F 07/07/20 06:00 Pulse Rate 87 07/07/20 12:04 Respiratory Rate 21 H 07/07/20 12:04 Blood Pressure 85/68 L 07/07/20 06:00 O2 Sat by Pulse Oximetry (%) 100 07/07/20 12:04 Constitutional: Yes: No Distress, Calm Cardiovascular: Yes: Regular Rate and Rhythm Respiratory: Yes: Intubated, Mechanically Ventilated Gastrointestinal: Yes: Normal Bowel Sounds, Soft Musculoskeletal: Yes: WNL Extremities: Yes: WNL Psychiatric: Yes: Other Labs: INR, PTT INR 2.08 (0.83-1.09) H 07/06/20 08:05 - ....Imaging Chest X-ray: Report Reviewed, Image Reviewed Assessment/Plan Pneumonia likely Aspiration UTI Sepsis Hyponatremia SBO resolving Alcohol/Heroin Abuse Anemia Failure to Thrive Severe Protein Calorie Malnutrition plan continue abx feeding resp support rest as per icu cc 36 min
[2020-07-07 12:41] LABS: BASO % 0.5 % (0-2.0); EOS % 3.9 % (0-4.5); HEMATOCRIT 25.9 % (32.4-45.2); LYMPH % 8.3 % (8-40); MCH 29.6 pg (25.7-33.7); MCHC 34.8 g/dl (32.0-36.0); MEAN CELL VOLUME 85.1 fl (80-96); MEAN PLT VOLUME 8.3 fl (7.5-11.1); MONO % 2.7 % (3.8-10.2); NEUT % 84.6 % (42.8-82.8); PLATELET COUNT 52 K/MM3 (134-434); RBC 3.04 M/mm3 (3.60-5.2); RDW 13.9 % (11.6-15.6); WHITE BLOOD COUNT 7.6 K/mm3 (4.0-10.0)
[2020-07-07 13:09] LABS: BILIRUBIN,TOTAL 1.2 mg/dL (0.2-1); BLOOD UREA NITROGEN 20.1 mg/dL (7-18); CREATININE 0.2 mg/dL (0.55-1.3); MAGNESIUM 1.7 mg/dL (1.8-2.4); PHOSPHOROUS 2.3 mg/dL (2.5-4.9); POTASSIUM 3.3 mmol/L (3.5-5.1)
[2020-07-07 13:55] LABS: CALCIUM 6.1 mg/dL (8.5-10.1)
--- NOTE | 2020-07-07 15:13 | PN ---
Progress Note (short form) - Note Progress Note: PULM/CCM Pt seen and examined in the ICU. Remains intubated, sedated. Remains off pressors. Sedated, RASS -3. Patient had episodes of mucous plugging, started on duonebs Vital Signs Period Temp Pulse Resp BP Sys/Campbell Pulse Ox Last 24 Hr 96.8 F-97.7 F 60-105 15-30 74-85/52-68 96-100 Intake & Output 07/04/20 07/05/20 07/06/20 07/07/20 23:59 23:59 23:59 23:59 Intake Total 2798 1920 2304 605 Output Total 1050 1450 1275 600 Balance 5267 211 0443 5 Weight 30.119 kg 31.751 kg 33.883 kg 34.609 kg Gen: intubated, sedated Heart: RRR Lung: decreased breath sounds at the bases Abd: soft, nontender Ext: no edema CBC, BMP 07/07/20 12:00 07/07/20 12:00 Active Medications Albuterol/Ipratropium (Duoneb -) 1 amp NEB Q6H PRN PRN Reason: SHORTNESS OF BREATH Chlorhexidine Gluconate (Hibiclens For Decolonization -) 1 applic TP HS [facility] Last Admin: 07/06/20 21:45 Dose: 1 applic Documented by: Folic Acid (Folic Acid -) 1 mg NGT DAILY [facility] Last Admin: 07/07/20 09:10 Dose: 1 mg Documented by: Heparin Sodium (Porcine) (Heparin -) 5,000 unit SQ BID [facility] Last Admin: 07/07/20 09:10 Dose: 5,000 unit Documented by: Piperacillin Sod/Tazobactam (Sod 3.375 gm/ Dextrose) 50 mls @ 100 mls/hr IVPB Q8H-IV [facility]; Protocol Last Admin: 07/07/20 17:12 Dose: 100 mls/hr Documented by: Fentanyl (Sublimaze Ivpb) 500 mcg in 100 mls @ 3 mls/hr IVPB TITR [facility] Last Admin: 07/07/20 16:30 Dose: 75 mcg/hr, 15 mls/hr Documented by: Midazolam HCl 100 mg/ Sodium (Chloride) 100 mls @ 1 mls/hr IVPB TITR [facility]; Protocol Last Admin: 07/06/20 21:45 Dose: Not Given Documented by: Dextrose/Sodium Chloride (D5-Ns -) 1,000 mls @ 30 mls/hr IV ASDIR [facility] Last Admin: 07/07/20 16:00 Dose: 30 mls/hr Documented by: Multivitamins/Minerals (Certavite-Antioxidant Liquid) 15 ml NGT DAILY [facility] Last Admin: 07/07/20 09:17 Dose: 15 ml Documented by: Mupirocin (Bactroban Ointment (For Decolonization) -) 1 applic NS BID [facility] Stop: 07/08/20 09:59 Last Admin: 07/07/20 09:10 Dose: 1 applic Documented by: Thiamine HCl (Vitamin B1 Injection -) 100 mg IVPB DAILY [facility] Stop: 07/09/20 23:59 Last Admin: 07/07/20 09:10 Dose: 100 mg Documented by: ASSESSMENT AND PLAN: Acute Hypoxic Respiratory Failure Pneumonia likely Aspiration UTI Sepsis Hyponatremia Small Bowel Obstruction Alcohol/Heroin Abuse Anemia Failure to Thrive Severe Protein Calorie Malnutrition Refeeding Syndrome - replete lytes - monitor BMP closely q 8 hours, keep K>4, Mg>2 - continue Zosyn for PNA - f/u cultures, blood cultures NTD - titrate O2 to keep SpO2 >90% - sedate for vent synchrony - continue volume assist control - slowly increase enteral feeds, will increase to 20 ml on 07/08 - Heparin SQ for DVT prophylaxis - Liver function improving - continue ICU monitoring Neda Zavala ACNP [id number]
[2020-07-07] MEDS ORDERED: KCL 10 MEQ IVPB 10 MEQ/100 ML INFUS.BAG IVPB SCH (15:15)
[2020-07-07] MEDS: DEXTROSE 5%-NORMAL SALINE 1,000 ML IV SCH (16:00)
[2020-07-07] MEDS ORDERED: fentaNYL CITRATE 250 MCG/5 ML VIAL ONE (17:06)
[2020-07-07] MEDS ORDERED: FENTANYL IVPB 500 MCG/100 ML BAG IVPB ONE (17:08)
[2020-07-07] MEDS ORDERED: ALBUTEROL SO4 2.5/IPRATROPIUM 0.5 INH SOL 3 ML VIAL.NEB. NEB PRN (19:45)
--- NOTE | 2020-07-07 21:10 | PN ---
Progress Note, Physician - Current Medication List Current Medications: Active Medications Albuterol/Ipratropium (Duoneb -) 1 amp NEB Q6H PRN PRN Reason: SHORTNESS OF BREATH Chlorhexidine Gluconate (Hibiclens For Decolonization -) 1 applic TP HS [facility] Last Admin: 07/06/20 21:45 Dose: 1 applic Documented by: Folic Acid (Folic Acid -) 1 mg NGT DAILY [facility] Last Admin: 07/07/20 09:10 Dose: 1 mg Documented by: Heparin Sodium (Porcine) (Heparin -) 5,000 unit SQ BID [facility] Last Admin: 07/07/20 09:10 Dose: 5,000 unit Documented by: Piperacillin Sod/Tazobactam (Sod 3.375 gm/ Dextrose) 50 mls @ 100 mls/hr IVPB Q8H-IV [facility]; Protocol Last Admin: 07/07/20 17:12 Dose: 100 mls/hr Documented by: Fentanyl (Sublimaze Ivpb) 500 mcg in 100 mls @ 3 mls/hr IVPB TITR [facility] Last Admin: 07/07/20 16:30 Dose: 75 mcg/hr, 15 mls/hr Documented by: Midazolam HCl 100 mg/ Sodium (Chloride) 100 mls @ 1 mls/hr IVPB TITR [facility]; Protocol Last Admin: 07/06/20 21:45 Dose: Not Given Documented by: Dextrose/Sodium Chloride (D5-Ns -) 1,000 mls @ 30 mls/hr IV ASDIR [facility] Last Admin: 07/07/20 16:00 Dose: 30 mls/hr Documented by: Multivitamins/Minerals (Certavite-Antioxidant Liquid) 15 ml NGT DAILY [facility] Last Admin: 07/07/20 09:17 Dose: 15 ml Documented by: Mupirocin (Bactroban Ointment (For Decolonization) -) 1 applic NS BID [facility] Stop: 07/08/20 09:59 Last Admin: 07/07/20 09:10 Dose: 1 applic Documented by: Thiamine HCl (Vitamin B1 Injection -) 100 mg IVPB DAILY [facility] Stop: 07/09/20 23:59 Last Admin: 07/07/20 09:10 Dose: 100 mg Documented by: - Objective Vital Signs: Vital Signs Temperature 97 F L 07/07/20 12:00 Pulse Rate 79 09/05/20 18:00 Respiratory Rate 21 H 07/07/20 20:23 Blood Pressure 79/52 L 07/07/20 18:00 O2 Sat by Pulse Oximetry (%) 96 07/07/20 20:23 Labs: CBC, BMP 07/07/20 12:00 07/07/20 12:00 INR, PTT INR 2.08 (0.83-1.09) H 07/06/20 08:05 Problem List - Problems (1) At risk for electrolyte imbalance Code(s): Z91.89 - OT PERSONAL RISK FACTORS, NOT ELSEWHERE CLASSIFIED (2) Sepsis Code(s): A41.9 - SEPSIS, UNSPECIFIED ORGANISM Qualifiers: Sepsis type: sepsis due to unspecified organism Sepsis acute organ dysfunction status: unspecified Qualified Code(s): A41.9 - Sepsis, unspecified organism (3) SBO (small bowel obstruction) Code(s): K56.609 - UNSP INTESTNL OBST, UNSP TO PARTIAL VERSUS COMPLETE OBST (4) Respiratory failure Code(s): J96.90 - RESPIRATORY FAILURE, UNSP, UNSP W HYPOXIA OR HYPERCAPNIA (5) Liver cirrhosis, alcoholic Code(s): K70.30 - ALCOHOLIC CIRRHOSIS OF LIVER WITHOUT ASCITES (6) Hypoalbuminemia Code(s): E88.09 - OTH DISORDERS OF PLASMA-PROTEIN METABOLISM, NEC (7) Substance abuse Code(s): F19.10 - OTHER PSYCHOACTIVE SUBSTANCE ABUSE, UNCOMPLICATED (8) Cachexia Code(s): R64 - [place]
[2020-07-07] MEDS: CHLORHEXIDINE GLUCONATE 4% CLEANSER FOR DECOLONIZATION TP SCH (22:03)
[2020-07-07] MEDS ORDERED: DEXTROSE 50%-WATER 25 GM/50 ML DISP.SYRIN ONE (23:57)
[2020-07-08] MEDS ORDERED: SODIUM CHLORIDE 250 ML IV STA (01:06)
[2020-07-08] MEDS: PIPERACILLIN/TAZOB 3.375 GM 3.375 GM in DEXTROSE 5%-WATER - 50 ML IVPB SCH ×3 (02:30→17:19)
[2020-07-08] MEDS ORDERED: VASOPRESSIN 20 UNITS/ML VIAL IV ONE (02:52)
[2020-07-08] MEDS: VASOPRESSIN 40 UNITS in SODIUM CHLORIDE 98 ML IVPB SCH ×2 (03:37→10:05)
[2020-07-08] MEDS ORDERED: PIPERACILLIN/TAZOBACTAM 3.375 GM VIAL IVPB ONE ×3 (03:43→16:29)
[2020-07-08] MEDS ORDERED: DEXTROSE 5%-WATER - 50 ML IVPB ONE ×3 (03:43→16:29)
[2020-07-08] MEDS ORDERED: MIDAZOLAM IN 0.9 % SOD.CHLORID 1 MG/1 ML PLAST..BAG ONE (06:01)
[2020-07-08] MEDS ORDERED: DEXTROSE 50%-WATER 25 GM/50 ML DISP.SYRIN ONE (06:01)
[2020-07-08 06:24] LABS: ARTERIAL BLD GAS O2 SATURATION 98.9 mmHg (95-98); ARTERIAL BLOOD GAS PO2 147.4 mmHg (80-100); ARTERIAL BLOOD GAS pH 7.389 (7.350-7.450)
[2020-07-08] MEDS: MIDAZOLAM 100 MG in SODIUM CHLORIDE 100 ML IVPB SCH (06:36)
[2020-07-08 07:07] LABS: BASO % 0.6 % (0-2.0); EOS % 2.9 % (0-4.5); HEMATOCRIT 24.8 % (32.4-45.2); HEMOGLOBIN 8.6 GM/dL (10.7-15.3); LYMPH % 6.2 % (8-40); MCH 29.4 pg (25.7-33.7); MCHC 34.5 g/dl (32.0-36.0); MEAN CELL VOLUME 85.1 fl (80-96); MEAN PLT VOLUME 9.3 fl (7.5-11.1); MONO % 2.4 % (3.8-10.2); NEUT % 87.9 % (42.8-82.8); PLATELET COUNT 53 K/MM3 (134-434); RBC 2.91 M/mm3 (3.60-5.2); RDW 14.4 % (11.6-15.6); WHITE BLOOD COUNT 10.1 K/mm3 (4.0-10.0)
--- NOTE | 2020-07-08 07:13 | PN ---
Progress Note (short form) - Note Progress Note: Pt remains intubated, nonresponsive. I cannot hear any bowel sounds. Yseterday's abd film shows contrast in colon. Yesterday's labs show ominous fall in platelet count (52K), rise in alk phos to 880, small rise in bilirubin to 1.2. WBC is down but given the drop in platelet count as well this may be marrow exhaustion/failure rather than an improvement in her condition. Prognosis very poor.
[2020-07-08 07:21] LABS: BILIRUBIN,TOTAL 0.8 mg/dL (0.2-1); BLOOD UREA NITROGEN 20.1 mg/dL (7-18); CREATININE 0.2 mg/dL (0.55-1.3); MAGNESIUM 1.8 mg/dL (1.8-2.4); PHOSPHOROUS 1.9 mg/dL (2.5-4.9); POTASSIUM 3.7 mmol/L (3.5-5.1); TOT PROT 3.9 g/dl (6.4-8.2)
[2020-07-08 07:28] LABS: ALLENS TEST POSITIVE
[2020-07-08 07:29] LABS: VENT MODE A/C; VENT RATE 15
[2020-07-08] MEDS: DEXTROSE 50%-WATER - 25 GM/50 ML VIAL IVPUSH PRN (07:38)
[2020-07-08] MEDS ORDERED: PT OWN MED DRAWER 7, Y5N ONE (08:00)
--- NOTE | 2020-07-08 09:07 | PN ---
Progress Note (short form) - Note Progress Note: PULM/CCM Pt seen and examined in the ICU. Pt appears wasted, toxic, & gravely ill (BMI = 13). Pt Remains intubated & sedated requiring low dose peripheral pressors. Serum Ca2+ = 6.0 but corrected for an Alb of 1.0 serum Ca2+ is actually ~ 8.4mg/dl (My Calc). LFTs are defervescing: Alk Phos 880 --> 763 AST 368 --> 170 ALT 478 -> 351 T Bili: 1.2 --> 0.8 PLTS Stable in the 50's Active Medications Albuterol/Ipratropium (Duoneb -) 1 amp NEB Q6H PRN PRN Reason: SHORTNESS OF BREATH Last Admin: 07/07/20 22:03 Dose: 1 amp Documented by: Dextrose (D50w (Vial) -) 12.5 gm IVPUSH PRN PRN PRN Reason: HYPOGLYCEMIA Last Admin: 07/08/20 07:38 Dose: 12.5 gm Documented by: Folic Acid (Folic Acid -) 1 mg NGT DAILY [facility] Last Admin: 07/07/20 09:10 Dose: 1 mg Documented by: Heparin Sodium (Porcine) (Heparin -) 5,000 unit SQ BID [facility] Last Admin: 07/07/20 22:02 Dose: 5,000 unit Documented by: Piperacillin Sod/Tazobactam (Sod 3.375 gm/ Dextrose) 50 mls @ 100 mls/hr IVPB Q8H-IV [facility]; Protocol Last Admin: 07/08/20 02:30 Dose: 100 mls/hr Documented by: Fentanyl (Sublimaze Ivpb) 500 mcg in 100 mls @ 3 mls/hr IVPB TITR [facility] Last Admin: 07/07/20 16:30 Dose: 75 mcg/hr, 15 mls/hr Documented by: Dextrose/Sodium Chloride (D5-Ns -) 1,000 mls @ 30 mls/hr IV ASDIR [facility] Last Admin: 07/07/20 16:00 Dose: 30 mls/hr Documented by: Vasopressin 40 units/ Sodium (Chloride) 100 mls @ 5 mls/hr IVPB ASDIR [facility]; Protocol Last Admin: 07/08/20 03:37 Dose: 4 units/hr, 10 mls/hr Documented by: Midazolam HCl 100 mg/ Sodium (Chloride) 100 mls @ 1 mls/hr IVPB TITR [facility]; Protocol Last Admin: 07/08/20 06:36 Dose: 1 mg/hr, 1 mls/hr Documented by: Multivitamins/Minerals (Certavite-Antioxidant Liquid) 15 ml NGT DAILY [facility] Last Admin: 07/07/20 09:17 Dose: 15 ml Documented by: Thiamine HCl (Vitamin B1 Injection -) 100 mg IVPB DAILY [facility] Stop: 07/09/20 23:59 Last Admin: 07/07/20 09:10 Dose: 100 mg Documented by: Vital Signs Period Temp Pulse Resp BP Sys/Campbell Pulse Ox Last 24 Hr 95.8 F-97.5 F 51-103 15-30 65-88/52-63 96-100 Intake & Output 07/05/20 07/06/20 07/07/20 07/08/20 23:59 23:59 23:59 23:59 Intake Total 1920 2304 855 752 Output Total 1450 1275 600 300 Balance 470 1029 255 452 Weight 31.751 kg 33.883 kg 34.609 kg 35.1 kg GEN: Wasted (BMI = 13), severely ill young woman intubated & sedated on the Vent HEENT: gross temporal wasting, PERRL, sclera slightly icteric, dry MM PULM: CTAB Heart: RRR ABD: scaphoid, silent BS, S/S N/T X4Q SKIN: pale, cool, w/ multiple small patches of ecchymosis in different stages of healing EXT: peripheral edema CBC, BMP 07/08/20 05:40 07/08/20 05:40 ABG Results ABG pH 7.389 (7.350-7.450) 07/08/20 05:20 ABG HCO3 15.9 mmol/L (22-27) L 07/08/20 05:20 ABG O2 Sat (Measured) 98.9 mmHg (95-98) H 07/08/20 05:20 ABG O2 Content No Result Required. 07/08/20 05:20 ABG Base Excess -8.0 mmol/L (-2-2) L 07/08/20 05:20 Microbiology 07/04/20 17:00 Sputum - Endotrachea Suction/Ventilator Gram Stain - Final 07/04/20 17:00 Sputum - Endotrachea Suction/Ventilator Sputum Culture - Final Yeast Like Organism 07/01/20 15:50 Blood - Peripheral Venous Blood Culture - Final NO GROWTH AFTER 5 DAYS INCUBATION 07/01/20 15:43 Blood - Peripheral Venous Blood Culture - Final NO GROWTH AFTER 5 DAYS INCUBATION 07/01/20 15:50 Urine - Urine Suprapubic Urine Culture - Final Pseudomonas Aeruginosa Escherichia Coli Enterococcus Avium RECENT IMAGING TO NOTE: CXR 07/07: Single view the chest reveals an endotracheal tube with its tip just below the thoracic inlet and this could be advanced slightly lower. An NG tube remains with its tip below the GE junction and assumably in the stomach. Again are due to congestive and infiltrative changes with pleural fluid. Mediastinum is not widened. Correlation recommended Impression: No significant change since prior study. ET tube could be advanced several centimeters. KUB 07/06: One view of the abdomen again reveals contrast in the colon with some air distended loops of small bowel and no sign of free air or pneumatosis. NG tube is in place. There are bibasilar pulmonary and pleural changes. There is a pelvic probe. There is a groundglass appearance of the abdomen compatible with a scites. The findings indicate again the small bowel obstruction is still undergoing partial resolution. Follow-up recommended. CTAP 07/05: IMPRESSION: 1. Persistent small bowel obstruction with associated edema and prominent wall thickening demonstrates modest interval improvement in caliber of dilatation. No discernible transition point identified. Recommend continued interval follow-ups. 2. High attenuation focus at the terminal ileum may represent retained enteric contrast from prior study or enhancing soft tissue lesion. 3. Large volume ascites. 4. Interval development of large left pleural effusion with left lower lobar atelectasis. Moderate interval size increase of right pleural effusion. Previously noted patchy opacities at the right base demonstrate improved aeration. Superimposed pneumonia at the aforementioned right basilar opacities or left lower lobar atelectasis cannot be excluded in the appropriate clinical context. 5. Cholelithiasis. Evaluation of possible associated gallbladder inflammation is limited by adjacent ascites. Recommend clinical correlation. ASSESS: -Acute Hypoxic Respiratory Fail m/l asp pna -Liver Fail -Bone Marrow Fail -MSOF -UTI -Sepsis -Hyponatremia -SBO -Alcohol/Heroin Abuse -Anemia -FTT -Severe Protein Calorie Malnutrition -Refeeding Syndrome PLAN: - Increase enteral feeds --> Restore weight ЕЛЕНА - D/C Fent in an attemp to promote bowel Fxn - Monitor e-lyes closely & replete prn --> keep K>4, Mg>2, PO4 > 3.5 - F/u w/ Nutrition - F/u w/ GI - continue Zosyn for UTI +/- ASP PNA - f/u cultures, blood cultures NTD - titrate O2 to keep SpO2 >90% - sedate for vent synchrony - continue volume assist control - Heparin SQ for DVT prophylaxis - continue ICU monitoring - Prognosis is grim --> contact family [facility] ICU PULM/CCM [id number]
[2020-07-08] MEDS: FOLIC ACID 1 MG TABLET (FP) NGT SCH (09:18)
[2020-07-08] MEDS: HEPARIN NA (PORCINE) 5,000 UNITS/ML 1ML VIAL SQ SCH ×2 (09:18→21:37)
[2020-07-08] MEDS: THIAMINE HCL 200 MG/2 ML VIAL IVPB SCH (09:19)
[2020-07-08] MEDS: MULTIVIT-MINERALS ORAL LIQUID NGT SCH (10:04)
--- NOTE | 2020-07-08 15:43 | PN ---
Progress Note, Physician History of Present Illness: INTUBATED - Current Medication List Current Medications: Active Medications Albuterol/Ipratropium (Duoneb -) 1 amp NEB Q6H PRN PRN Reason: SHORTNESS OF BREATH Last Admin: 07/07/20 22:03 Dose: 1 amp Documented by: Dextrose (D50w (Vial) -) 12.5 gm IVPUSH PRN PRN PRN Reason: HYPOGLYCEMIA Last Admin: 07/08/20 07:38 Dose: 12.5 gm Documented by: Folic Acid (Folic Acid -) 1 mg NGT DAILY [facility] Last Admin: 07/08/20 09:18 Dose: 1 mg Documented by: Heparin Sodium (Porcine) (Heparin -) 5,000 unit SQ BID [facility] Last Admin: 07/08/20 09:18 Dose: 5,000 unit Documented by: Piperacillin Sod/Tazobactam (Sod 3.375 gm/ Dextrose) 50 mls @ 100 mls/hr IVPB Q8H-IV [facility]; Protocol Last Admin: 07/08/20 09:20 Dose: 100 mls/hr Documented by: Dextrose/Sodium Chloride (D5-Ns -) 1,000 mls @ 30 mls/hr IV ASDIR [facility] Last Admin: 07/07/20 16:00 Dose: 30 mls/hr Documented by: Vasopressin 40 units/ Sodium (Chloride) 100 mls @ 5 mls/hr IVPB ASDIR [facility]; Protocol Last Admin: 07/08/20 10:05 Dose: 5 units/hr, 12.5 mls/hr Documented by: Midazolam HCl 100 mg/ Sodium (Chloride) 100 mls @ 1 mls/hr IVPB TITR [facility]; Protocol Last Admin: 07/08/20 06:36 Dose: 1 mg/hr, 1 mls/hr Documented by: Fentanyl (Sublimaze Ivpb) 500 mcg in 100 mls @ 5 mls/hr IVPB TITR [facility] Multivitamins/Minerals (Certavite-Antioxidant Liquid) 15 ml NGT DAILY [facility] Last Admin: 07/08/20 10:04 Dose: 15 ml Documented by: Thiamine HCl (Vitamin B1 Injection -) 100 mg IVPB DAILY [facility] Stop: 07/09/20 23:59 Last Admin: 07/08/20 09:19 Dose: 100 mg Documented by: - Objective Vital Signs: Vital Signs Temperature 95.9 F L 07/08/20 08:00 Pulse Rate 80 07/08/20 10:05 Respiratory Rate 17 07/08/20 11:50 Blood Pressure 68/54 L 07/08/20 10:05 O2 Sat by Pulse Oximetry (%) 99 07/08/20 13:02 Constitutional: Yes: No Distress HENT: Yes: Atraumatic Neck: Yes: Supple Cardiovascular: Yes: Regular Rate and Rhythm Respiratory: Yes: Rhonchi Gastrointestinal: Yes: Normal Bowel Sounds Extremities: Yes: WNL Neurological: Yes: Other (AWAKE) Labs: CBC, BMP 07/08/20 05:40 07/08/20 05:40 INR, PTT INR 2.08 (0.83-1.09) H 07/06/20 08:05 Problem List - Problems (1) At risk for electrolyte imbalance Assessment/Plan: MONITOR AND REPLACE Code(s): Z91.89 - [facility] PERSONAL RISK FACTORS, NOT ELSEWHERE CLASSIFIED (2) SBO (small bowel obstruction) Assessment/Plan: ON TUBE FEEDS NOW Code(s): K56.609 - UNSP INTESTNL OBST, UNSP TO PARTIAL VERSUS COMPLETE OBST (3) Sepsis Assessment/Plan: ON IV ABX CXS NOTED ID ON BOARD Code(s): A41.9 - SEPSIS, UNSPECIFIED ORGANISM Qualifiers: Sepsis type: sepsis due to unspecified organism Sepsis acute organ dysfunction status: unspecified Qualified Code(s): A41.9 - Sepsis, unspecified organism (4) Alcoholic liver damage Code(s): K70.9 - ALCOHOLIC LIVER DISEASE, UNSPECIFIED (5) Hypoalbuminemia Code(s): E88.09 - OT DISORDERS OF PLASMA-PROTEIN METABOLISM, NEC (6) Hyponatremia Code(s): E87.1 - HYPO-OSMOLALITY AND HYPONATREMIA (7) Liver cirrhosis, alcoholic Code(s): K70.30 - ALCOHOLIC CIRRHOSIS OF LIVER WITHOUT ASCITES (8) Ischemic hepatitis Code(s): K75.9 - INFLAMMATORY LIVER DISEASE, UNSPECIFIED (9) Respiratory failure Assessment/Plan: INTUBATED Code(s): J96.90 - RESPIRATORY FAILURE, UNSP, UNSP W HYPOXIA OR HYPERCAPNIA (10) UTI (urinary tract infection) Assessment/Plan: SEPSIS ON IV ABX Code(s): N39.0 - URINARY TRACT INFECTION, SITE NOT SPECIFIED Qualifiers: Urinary tract infection type: site unspecified Hematuria presence: with hematuria Qualified Code(s): N39.0 - Urinary tract infection, site not specified; R31.9 - Hematuria, unspecified (11) Elevated LFTs Assessment/Plan: IMPROVING Code(s): R79.89 - OTHER SPECIFIED ABNORMAL FINDINGS OF BLOOD CHEMISTRY Assessment/Plan COVERING FOR DR FOREMAN TODAY ICU CC TIME 35 MIN
[2020-07-08] MEDS: FENTANYL NS IVPB 500 MCG/100 ML BAG IVPB SCH (17:18)
[2020-07-08] MEDS: DEXTROSE 5%-NORMAL SALINE 1,000 ML IV SCH (17:18)
[2020-07-09] MEDS ORDERED: PIPERACILLIN/TAZOBACTAM 3.375 GM VIAL IVPB ONE ×3 (00:25→17:19)
[2020-07-09] MEDS ORDERED: DEXTROSE 5%-WATER - 50 ML IVPB ONE ×3 (00:25→17:19)
[2020-07-09] MEDS: PIPERACILLIN/TAZOB 3.375 GM 3.375 GM in DEXTROSE 5%-WATER - 50 ML IVPB SCH ×3 (02:06→18:11)
--- NOTE | 2020-07-09 07:20 | PN ---
Progress Note (short form) - Note Progress Note: Pt now receiving Vital-HN via NG tube, tolerating it. Remains intubated, unresponsive, sedated, cachectic. Abdomen: again, I cannot hear bowel sounds but it is not rigid. WBC 10.1 yesterday, platelets 53K. LFTs down slightly but still very elevated; unclear whether she is improving or has just run out of liver. Case discussed with ICU team. Prognosis remains poor.
[2020-07-09] MEDS: VASOPRESSIN 40 UNITS in SODIUM CHLORIDE 98 ML IVPB SCH (07:30)
[2020-07-09] MEDS: MIDAZOLAM 100 MG in SODIUM CHLORIDE 100 ML IVPB SCH (07:30)
[2020-07-09] MEDS ORDERED: PT OWN MED DRAWER 7, Y5N ONE (08:38)
[2020-07-09] MEDS: FOLIC ACID 1 MG TABLET (FP) NGT SCH (10:27)
[2020-07-09] MEDS: MULTIVIT-MINERALS ORAL LIQUID NGT SCH (10:27)
[2020-07-09] MEDS: THIAMINE HCL 200 MG/2 ML VIAL IVPB SCH (10:28)
--- NOTE | 2020-07-09 11:22 | PN ---
Progress Note, Physician History of Present Illness: continues to be intubated cachestic - Current Medication List Current Medications: Active Medications Albuterol/Ipratropium (Duoneb -) 1 amp NEB Q6H PRN PRN Reason: SHORTNESS OF BREATH Last Admin: 07/07/20 22:03 Dose: 1 amp Documented by: Dextrose (D50w (Vial) -) 12.5 gm IVPUSH PRN PRN PRN Reason: HYPOGLYCEMIA Last Admin: 07/08/20 07:38 Dose: 12.5 gm Documented by: Folic Acid (Folic Acid -) 1 mg NGT DAILY [facility] Last Admin: 07/09/20 10:27 Dose: 1 mg Documented by: Piperacillin Sod/Tazobactam (Sod 3.375 gm/ Dextrose) 50 mls @ 100 mls/hr IVPB Q8H-IV [facility]; Protocol Last Admin: 07/09/20 10:26 Dose: 100 mls/hr Documented by: Dextrose/Sodium Chloride (D5-Ns -) 1,000 mls @ 30 mls/hr IV ASDIR [facility] Last Admin: 07/08/20 17:18 Dose: 30 mls/hr Documented by: Vasopressin 40 units/ Sodium (Chloride) 100 mls @ 5 mls/hr IVPB ASDIR [facility]; Protocol Last Admin: 07/09/20 07:30 Dose: 5 units/hr, 12.5 mls/hr Documented by: Midazolam HCl 100 mg/ Sodium (Chloride) 100 mls @ 1 mls/hr IVPB TITR [facility]; Protocol Last Admin: 07/09/20 07:30 Dose: 6 mg/hr, 6 mls/hr Documented by: Fentanyl (Sublimaze Ivpb) 500 mcg in 100 mls @ 5 mls/hr IVPB TITR [facility] Last Admin: 07/08/20 17:18 Dose: 25 mcg/hr, 5 mls/hr Documented by: Multivitamins/Minerals (Certavite-Antioxidant Liquid) 15 ml NGT DAILY [facility] Last Admin: 07/09/20 10:27 Dose: 15 ml Documented by: Thiamine HCl (Vitamin B1 Injection -) 100 mg IVPB DAILY [facility] Stop: 07/09/20 23:59 Last Admin: 07/09/20 10:28 Dose: 100 mg Documented by: - Objective Vital Signs: Vital Signs Temperature 97.1 F L 07/09/20 08:00 Pulse Rate 54 L 07/09/20 08:16 Respiratory Rate 19 07/09/20 09:00 Blood Pressure 84/60 L 07/09/20 08:00 O2 Sat by Pulse Oximetry (%) 100 07/09/20 09:00 Constitutional: Yes: Other Cardiovascular: Yes: S1, S2 Respiratory: Yes: Intubated, Mechanically Ventilated Gastrointestinal: Yes: Normal Bowel Sounds, Soft Musculoskeletal: Yes: WNL Extremities: Yes: WNL Labs: CBC, BMP 07/08/20 05:40 07/08/20 05:40 INR, PTT INR 2.08 (0.83-1.09) H 07/06/20 08:05 - ....Imaging Chest X-ray: Report Reviewed, Image Reviewed Assessment/Plan Pneumonia likely Aspiration UTI Sepsis Hyponatremia SBO resolving Alcohol/Heroin Abuse Anemia Failure to Thrive Severe Protein Calorie Malnutrition plan continue current mgmt abx nutrition rest as per icu will stop vanco cc 40 min
[2020-07-09] MEDS ORDERED: VASOPRESSIN 20 UNITS/ML VIAL IV ONE ×3 (11:38→18:41)
--- NOTE | 2020-07-09 11:39 | PN ---
Progress Note, Physician History of Present Illness: continues to be intubated cachestic - Current Medication List Current Medications: Active Medications Albuterol/Ipratropium (Duoneb -) 1 amp NEB Q6H PRN PRN Reason: SHORTNESS OF BREATH Last Admin: 07/07/20 22:03 Dose: 1 amp Documented by: Dextrose (D50w (Vial) -) 12.5 gm IVPUSH PRN PRN PRN Reason: HYPOGLYCEMIA Last Admin: 07/08/20 07:38 Dose: 12.5 gm Documented by: Folic Acid (Folic Acid -) 1 mg NGT DAILY [facility] Last Admin: 07/09/20 10:27 Dose: 1 mg Documented by: Piperacillin Sod/Tazobactam (Sod 3.375 gm/ Dextrose) 50 mls @ 100 mls/hr IVPB Q8H-IV [facility]; Protocol Last Admin: 07/09/20 10:26 Dose: 100 mls/hr Documented by: Dextrose/Sodium Chloride (D5-Ns -) 1,000 mls @ 30 mls/hr IV ASDIR [facility] Last Admin: 07/08/20 17:18 Dose: 30 mls/hr Documented by: Vasopressin 40 units/ Sodium (Chloride) 100 mls @ 5 mls/hr IVPB ASDIR [facility]; Protocol Last Admin: 07/09/20 07:30 Dose: 5 units/hr, 12.5 mls/hr Documented by: Midazolam HCl 100 mg/ Sodium (Chloride) 100 mls @ 1 mls/hr IVPB TITR [facility]; Protocol Last Admin: 07/09/20 07:30 Dose: 6 mg/hr, 6 mls/hr Documented by: Fentanyl (Sublimaze Ivpb) 500 mcg in 100 mls @ 5 mls/hr IVPB TITR [facility] Last Admin: 07/08/20 17:18 Dose: 25 mcg/hr, 5 mls/hr Documented by: Multivitamins/Minerals (Certavite-Antioxidant Liquid) 15 ml NGT DAILY [facility] Last Admin: 07/09/20 10:27 Dose: 15 ml Documented by: Thiamine HCl (Vitamin B1 Injection -) 100 mg IVPB DAILY [facility] Stop: 07/09/20 23:59 Last Admin: 07/09/20 10:28 Dose: 100 mg Documented by: - Objective Vital Signs: Vital Signs Temperature 97.1 F L 07/09/20 08:00 Pulse Rate 54 L 07/09/20 08:16 Respiratory Rate 15 07/09/20 11:30 Blood Pressure 84/60 L 07/09/20 08:00 O2 Sat by Pulse Oximetry (%) 100 07/09/20 11:30 Constitutional: Yes: Other Cardiovascular: Yes: S1, S2 Respiratory: Yes: Intubated, Mechanically Ventilated Gastrointestinal: Yes: Normal Bowel Sounds, Soft Musculoskeletal: Yes: WNL Extremities: Yes: WNL Labs: CBC, BMP 07/08/20 05:40 07/08/20 05:40 INR, PTT INR 2.08 (0.83-1.09) H 07/06/20 08:05 - ....Imaging Chest X-ray: Report Reviewed, Image Reviewed Assessment/Plan Pneumonia likely Aspiration UTI Sepsis Hyponatremia SBO resolving Alcohol/Heroin Abuse Anemia Failure to Thrive Severe Protein Calorie Malnutrition plan continue current mgmt abx nutrition rest as per icu will stop vanco cc 40 min
--- NOTE | 2020-07-09 12:19 | PN ---
Teaching Attending Note Name of Resident: Gio Howard ATTENDING PHYSICIAN STATEMENT I saw and evaluated the patient. I reviewed the resident's note and discussed the case with the resident. I agree with the resident's findings and plan as documented. SUBJECTIVE: Patient seen and examined in the ICU. Remains intubated and sedated. Remains on low dose pressors. Intake & Output 07/06/20 07/07/20 07/08/20 07/09/20 23:59 23:59 23:59 23:59 Intake Total 2304 855 1154 682 Output Total 1275 600 750 Balance 1029 255 404 682 Weight 74 lb 11.2 oz 76 lb 4.8 oz 77 lb 6.116 oz 170 lb 10.205 oz Last Vital Signs Temp Pulse Resp BP Pulse Ox 97.1 F L 54 L 15 84/60 L 100 07/09/20 08:00 07/09/20 08:16 07/09/20 11:30 07/09/20 08:00 07/09/20 11:30 Active Medications Albuterol/Ipratropium (Duoneb -) 1 amp NEB Q6H PRN PRN Reason: SHORTNESS OF BREATH Last Admin: 07/07/20 22:03 Dose: 1 amp Documented by: Dextrose (D50w (Vial) -) 12.5 gm IVPUSH PRN PRN PRN Reason: HYPOGLYCEMIA Last Admin: 07/08/20 07:38 Dose: 12.5 gm Documented by: Folic Acid (Folic Acid -) 1 mg NGT DAILY RAUL Last Admin: 07/09/20 10:27 Dose: 1 mg Documented by: Piperacillin Sod/Tazobactam (Sod 3.375 gm/ Dextrose) 50 mls @ 100 mls/hr IVPB Q8H-IV RAUL; Protocol Last Admin: 07/09/20 10:26 Dose: 100 mls/hr Documented by: Dextrose/Sodium Chloride (D5-Ns -) 1,000 mls @ 30 mls/hr IV ASDIR RAUL Last Admin: 07/08/20 17:18 Dose: 30 mls/hr Documented by: Vasopressin 40 units/ Sodium (Chloride) 100 mls @ 5 mls/hr IVPB ASDIR RAUL; Protocol Last Admin: 07/09/20 07:30 Dose: 5 units/hr, 12.5 mls/hr Documented by: Midazolam HCl 100 mg/ Sodium (Chloride) 100 mls @ 1 mls/hr IVPB TITR RAUL; Protocol Last Admin: 07/09/20 07:30 Dose: 6 mg/hr, 6 mls/hr Documented by: Fentanyl (Sublimaze Ivpb) 500 mcg in 100 mls @ 5 mls/hr IVPB TITR [facility] Last Admin: 07/08/20 17:18 Dose: 25 mcg/hr, 5 mls/hr Documented by: Multivitamins/Minerals (Certavite-Antioxidant Liquid) 15 ml NGT DAILY [facility] Last Admin: 07/09/20 10:27 Dose: 15 ml Documented by: Thiamine HCl (Vitamin B1 Injection -) 100 mg IVPB DAILY [facility] Stop: 07/09/20 23:59 Last Admin: 07/09/20 10:28 Dose: 100 mg Documented by: GEN: Wasted (BMI = 13), intubated & sedated HEENT: temporal wasting, sclera slightly icteric, dry MM PULM: Vented, Clear Heart: RRR ABD: scaphoid, (+) BS, S/S N/T SKIN: pale, cool, w/ multiple small patches of ecchymosis in different stages of healing EXT: peripheral edema Laboratory Results - last 24 hr 07/04/20 07/08/20 07/08/20 10:45 12:18 17:07 POC Glucometer 104 79 Blood Type O POSITIVE Antibody Screen Negative Crossmatch See Detail ASSESS: -Acute Hypoxic Respiratory Failure due to Aspiration PNA -Liver Failure -Bone Marrow Failure -MSOF -UTI -Sepsis -Hyponatremia -SBO -Alcohol/Heroin Abuse -Anemia -FTT -Severe Protein Calorie Malnutrition -Refeeding Syndrome PLAN: - Increase enteral feeds to 20ml/hr - Monitor off Fentanyl - Monitor e-lyes closely & replete prn --> keep K>4, Mg>2, PO4 > 3.5 - continue Zosyn for UTI +/- ASP PNA - f/u cultures - titrate O2 to keep SpO2 >90% - Sedation vacation - Heparin SQ for DVT prophylaxis - continue ICU monitoring - Prognosis is grim --> contact family Dr Babb Critical care time spent in reviewing chart, evaluating patient and formulating plan - 36 minutes.
[2020-07-09] MEDS ORDERED: MAGNESIUM 2GM/50ML STERILE WATER IVPB IVPB ONE (12:52)
--- NOTE | 2020-07-09 13:19 | PN ---
Progress Note, Physician History of Present Illness: Pt seen and examined at bedside. She remains in the ICU. She remains intubated. - Current Medication List Current Medications: Active Medications Albuterol/Ipratropium (Duoneb -) 1 amp NEB Q6H PRN PRN Reason: SHORTNESS OF BREATH Last Admin: 07/07/20 22:03 Dose: 1 amp Documented by: Calcium Gluconate (Calcium Gluconate 10% -) 1,000 mg IVPB ONCE ONE Stop: 07/09/20 13:17 Dextrose (D50w (Vial) -) 12.5 gm IVPUSH PRN PRN PRN Reason: HYPOGLYCEMIA Last Admin: 07/08/20 07:38 Dose: 12.5 gm Documented by: Folic Acid (Folic Acid -) 1 mg NGT DAILY RAUL Last Admin: 07/09/20 10:27 Dose: 1 mg Documented by: Piperacillin Sod/Tazobactam (Sod 3.375 gm/ Dextrose) 50 mls @ 100 mls/hr IVPB Q8H-IV RAUL; Protocol Last Admin: 07/09/20 10:26 Dose: 100 mls/hr Documented by: Dextrose/Sodium Chloride (D5-Ns -) 1,000 mls @ 30 mls/hr IV ASDIR RAUL Last Admin: 07/08/20 17:18 Dose: 30 mls/hr Documented by: Vasopressin 40 units/ Sodium (Chloride) 100 mls @ 5 mls/hr IVPB ASDIR RAUL; Protocol Last Admin: 07/09/20 07:30 Dose: 5 units/hr, 12.5 mls/hr Documented by: Midazolam HCl 100 mg/ Sodium (Chloride) 100 mls @ 1 mls/hr IVPB TITR RAUL; Pr otocol Last Admin: 07/09/20 07:30 Dose: 6 mg/hr, 6 mls/hr Documented by: Fentanyl (Sublimaze Ivpb) 500 mcg in 100 mls @ 5 mls/hr IVPB TITR RAUL Last Admin: 07/08/20 17:18 Dose: 25 mcg/hr, 5 mls/hr Documented by: Multivitamins/Minerals (Certavite-Antioxidant Liquid) 15 ml NGT DAILY RAUL Last Admin: 07/09/20 10:27 Dose: 15 ml Documented by: Potassium Phos/Sodium Phos (Phos-Nak Packet -) 1 packet PO TID RAUL Thiamine HCl (Vitamin B1 Injection -) 100 mg IVPB DAILY RAUL Stop: 07/09/20 23:59 Last Admin: 07/09/20 10:28 Dose: 100 mg Documented by: - Objective Vital Signs: Vital Signs Temperature 97.1 F L 07/09/20 08:00 Pulse Rate 54 L 07/09/20 08:16 Respiratory Rate 15 07/09/20 11:30 Blood Pressure 84/60 L 07/09/20 08:00 O2 Sat by Pulse Oximetry (%) 100 07/09/20 11:30 Constitutional: Yes: Calm, Cachectic HENT: Yes: Atraumatic Neck: Yes: Supple Cardiovascular: Yes: S1, S2 Respiratory: Yes: Mechanically Ventilated Gastrointestinal: Yes: Soft Genitourinary: Yes: Uribe Present Musculoskeletal: Yes: Muscle Weakness Edema: Yes Edema: LLE: Trace, RLE: Trace Neurological: Yes: Lethargy Labs: CBC, BMP 07/08/20 05:40 07/08/20 05:40 INR, PTT INR 2.08 (0.83-1.09) H 07/06/20 08:05 Problem List - Problems (1) Hypoglycemia Code(s): E16.2 - HYPOGLYCEMIA, UNSPECIFIED (2) Sepsis Code(s): A41.9 - SEPSIS, UNSPECIFIED ORGANISM Qualifiers: Sepsis type: sepsis due to unspecified organism Sepsis acute organ dysfunction status: unspecified Qualified Code(s): A41.9 - Sepsis, unspecified organism (3) Hypoalbuminemia Code(s): E88.09 - OTH DISORDERS OF PLASMA-PROTEIN METABOLISM, NEC (4) Hyponatremia Code(s): E87.1 - HYPO-OSMOLALITY AND HYPONATREMIA Assessment/Plan Current Medications Generic Name Dose Route Start Last Admin Trade Name Freq PRN Reason Stop Dose Admin Albuterol/Ipratropium 1 amp 07/07/20 19:45 07/07/20 22:03 Duoneb - NEB 1 amp Q6H PRN Administration SHORTNESS OF BREATH Calcium Gluconate 1,000 mg 07/09/20 13:16 Calcium Gluconate 10% - IVPB 07/09/20 13:17 ONCE ONE Dextrose 12.5 gm 07/08/20 07:08 07/08/20 07:38 D50w (Vial) - IVPUSH 12.5 gm PRN PRN Administration HYPOGLYCEMIA Folic Acid 1 mg 07/06/20 10:00 07/09/20 10:27 Folic Acid - NGT 1 mg DAILY RAUL Administration Piperacillin Sod/Tazobactam 50 mls @ 100 mls/hr 07/02/20 18:00 07/09/20 10:26 Sod 3.375 gm/ Dextrose IVPB 100 mls/hr Q8H-IV RAUL Administration Protocol Dextrose/Sodium Chloride 1,000 mls @ 30 mls/hr 07/05/20 13:30 07/08/20 17:18 D5-Ns - IV 30 mls/hr ASDIR RAUL Administration Vasopressin 40 units/ Sodium 100 mls @ 5 mls/hr 07/08/20 07:00 07/09/20 07:30 Chloride IVPB 5 units/hr ASDIR RAUL 12.5 mls/hr Administration Protocol 2 UNITS/HR Midazolam HCl 100 mg/ Sodium 100 mls @ 1 mls/hr 07/08/20 07:15 07/09/20 07:30 Chloride IVPB 6 mg/hr TITR RAUL 6 mls/hr Administration Protocol 1 MG/HR Fentanyl 500 mcg in 100 mls @ 5 mls/hr 07/08/20 15:00 07/08/20 17:18 Sublimaze Ivpb IVPB 25 mcg/hr TITR RAUL 5 mls/hr Administration 25 MCG/HR Multivitamins/Minerals 15 ml 07/06/20 11:45 07/09/20 10:27 Certavite-Antioxidant Liquid NGT 15 ml DAILY RAUL Administration Potassium Phos/Sodium Phos 1 packet 07/09/20 14:00 Phos-Nak Packet - PO TID RAUL Thiamine HCl 100 mg 07/04/20 18:15 07/09/20 10:28 Vitamin B1 Injection - IVPB 07/09/20 23:59 100 mg DAILY RAUL Administration Impression 1. azotemia 2. hyponatremia 3. hyperkalemia 4. hypotension 5. sepsis 6. sbo 7. uti 8. liver cirrhosis 9. hypoalbuminemia 10. etoh abuse 11. substance abuse 12. psoriasis 13. acute resp failure 14. malnutrition Plan - cont feeds, can start to titrate up - dietary follow up - repeat labs in am - replace lytes - monitor glucose - cont vent support
[2020-07-09] MEDS ORDERED: CALCIUM GLUCONATE 10% - 1,000 MG/10 ML VIAL IVPB ONE (13:45)
[2020-07-09] MEDS: NAPH,MB-DB/K PH,MBDB POWDER PACKET PO SCH ×2 (14:14→22:15)
[2020-07-09 15:45] LABS: HEMATOCRIT 17.9 % (32.4-45.2); MCH 29.5 pg (25.7-33.7); MCHC 34.8 g/dl (32.0-36.0); MEAN CELL VOLUME 84.8 fl (80-96); MEAN PLT VOLUME 9.8 fl (7.5-11.1); RBC 2.11 M/mm3 (3.60-5.2); WHITE BLOOD COUNT 5.7 K/mm3 (4.0-10.0)
[2020-07-09 15:52] LABS: HEMOGLOBIN 6.2 GM/dL (10.7-15.3)
[2020-07-09 15:53] LABS: PLATELET COUNT 36 K/MM3 (134-434)
[2020-07-09 16:11] LABS: ALBUMIN 0.9 g/dl (3.4-5.0); BILIRUBIN,DIRECT 0.3 mg/dL (0.0-0.2); BILIRUBIN,TOTAL 0.8 mg/dL (0.2-1); BLOOD UREA NITROGEN 16.5 mg/dL (7-18); CHLORIDE 105 mmol/L (98-107); CO2 18 mmol/L (21-32); CREATININE < 0.2 mg/dL (0.55-1.3); GLUCOSE,RANDOM 93 mg/dL (74-106); MAGNESIUM 3.1 mg/dL (1.8-2.4); PHOSPHOROUS 1.9 mg/dL (2.5-4.9); SGOT/AST 66 U/L (15-37); SGPT/ALT 211 U/L (13-61); SODIUM 133 mmol/L (136-145); TOT PROT 3.4 g/dl (6.4-8.2)
[2020-07-09 16:13] LABS: ALK PHOS 513 U/L (45-117); ANION GAP 10 MMOL/L (8-16)
[2020-07-09 16:20] LABS: POTASSIUM 2.8 mmol/L (3.5-5.1)
[2020-07-09] MEDS ORDERED: POTASSIUM CHLORIDE ORAL LIQUID 20 MEQ/15 ML PO ONE (16:21)
--- NOTE | 2020-07-09 16:26 | PN ---
Physical Exam: SUBJECTIVE: Patient seen and examined intubated and sedated. OBJECTIVE: Vital Signs Period Temp Pulse Resp BP Sys/Campbell Pulse Ox Last 24 Hr 96.3 F-97.1 F 46-100 14-22 70-87/54-71 100-100 GENERAL: Intubated and sedated HEAD: No signs of trauma, normocephalic, atraumatic EYES: PERRLA, EOMI, sclera anicteric, conjunctiva clear ENT: Auricles normal inspection, hearing grossly normal, nares patent NECK: Normal ROM, supple, no lymphadenopathy, JVD, or masses LUNGS: dec breath sounds at bilateral bases HEART: Regular rate and rhythm, normal S1 and S2, no murmurs, rubs or gallops, peripheral pulses normal and equal bilaterally. ABDOMEN: Soft, nontender No guarding, no rebound. No masses EXTREMITIES : cachectic NEUROLOGICAL: Pt fully sedated unable to respond to command SKIN:Cachectic Laboratory Results - last 24 hr 07/08/20 07/09/20 07/09/20 17:07 15:30 15:30 WBC 5.7 RBC 2.11 L Hgb 6.2 L* Hct 17.9 L D MCV 84.8 MCH 29.5 MCHC 34.8 RDW 14.0 Plt Count 36 L* D MPV 9.8 Sodium 133 L Potassium 2.8 L* Chloride 105 Carbon Dioxide 18 L Anion Gap 10 BUN 16.5 Creatinine < 0.2 L Est GFR (CKD-EPI)AfAm 197.85 Est GFR (CKD-EPI)NonAf 170.70 POC Glucometer 79 Random Glucose 93 Calcium 6.0 L* Phosphorus 1.9 L Magnesium 3.1 H Total Bilirubin 0.8 Direct Bilirubin 0.3 H AST 66 H ALT 211 H Alkaline Phosphatase 513 H Creatine Kinase 38 Total Protein 3.4 L Albumin 0.9 L Active Medications Generic Name Dose Route Start Last Admin Trade Name Freq PRN Reason Stop Dose Admin Albuterol/Ipratropium 1 amp 07/07/20 19:45 07/07/20 22:03 Duoneb - NEB 1 amp Q6H PRN Administration SHORTNESS OF BREATH Dextrose 12.5 gm 07/08/20 07:08 07/08/20 07:38 D50w (Vial) - IVPUSH 12.5 gm PRN PRN Administration HYPOGLYCEMIA Folic Acid 1 mg 07/06/20 10:00 07/09/20 10:27 Folic Acid - NGT 1 mg DAILY RAUL Administration Piperacillin Sod/Tazobactam 50 mls @ 100 mls/hr 07/02/20 18:00 07/09/20 10:26 Sod 3.375 gm/ Dextrose IVPB 100 mls/hr Q8H-IV RAUL Administration Protocol Dextrose/Sodium Chloride 1,000 mls @ 30 mls/hr 07/05/20 13:30 07/08/20 17:18 D5-Ns - IV 30 mls/hr ASDIR RAUL Administration Vasopressin 40 units/ Sodium 100 mls @ 5 mls/hr 07/08/20 07:00 07/09/20 07:30 Chloride IVPB 5 units/hr ASDIR RAUL 12.5 mls/hr Administration Protocol 2 UNITS/HR Midazolam HCl 100 mg/ Sodium 100 mls @ 1 mls/hr 07/08/20 07:15 07/09/20 07:30 Chloride IVPB 6 mg/hr TITR RAUL 6 mls/hr Administration Protocol 1 MG/HR Fentanyl 500 mcg in 100 mls @ 5 mls/hr 07/08/20 15:00 07/08/20 17:18 Sublimaze Ivpb IVPB 25 mcg/hr TITR RAUL 5 mls/hr Administration 25 MCG/HR Potassium Chloride 10 meq in 100 mls @ 100 mls/hr 07/09/20 16:30 Potassium Chloride 10 Meq Premix Ivpb - IVPB 07/09/20 19:29 Q60M RAUL Multivitamins/Minerals 15 ml 07/06/20 11:45 07/09/20 10:27 Certavite-Antioxidant Liquid NGT 15 ml DAILY RAUL Administration Potassium Chloride 40 meq 07/09/20 16:21 Potassium Chloride Oral Liquid PO 07/09/20 16:22 ONCE ONE Potassium Phos/Sodium Phos 1 packet 07/09/20 14:00 07/09/20 14:14 Phos-Nak Packet - PO 1 packet TID RAUL Administration Thiamine HCl 100 mg 07/04/20 18:15 07/09/20 10:28 Vitamin B1 Injection - IVPB 07/09/20 23:59 100 mg DAILY RAUL Administration ASSESSMENT/PLAN: 34 yo female coming in to ICU due to possible sepsis due to UTI and PNA, Refeeding syndrome, and SBO Neuro - Altered Mental Status- Most likely due to hypoglycemia. - Pt now intubated and sedated on midazolam. D/c fentanyl due to SBO Cardiac - HTN- will hold bp meds - Monitoring BP keep >65. Resp - pt has history of asthma- will give albuterol if pt has asthma - Pt was tachypnic and having trouble breathing so was intubated 07/04 now saturating at 100% - pts vent settings RR 15, Vt: 350 FiO2: 100 PEEP 5 GI - SBO - Appreciate Surgery consult - Will do NG tube PRN - WIll keep pt NPO and give IV hydration - CT of abd/pelvis with oral contrast- SBO with moderate improvement will continue to monitor Xrays - xray 07/06- shows moderate improvement of SBO - Appreciate GI consult - repeat labs improved - Repleted K phos, mg, and calcium--> Monitor e-lyes closely & replete prn --> keep K>4, Mg>2, PO4 > 3.5. - 07/09 given 2 gms mg prophylactically, nutriphos TID, will also replete K given 3 riders and 40 liquid, will also give Ca Gluconate, and will also give K phos prn - monitor lytes closely Heme - Pt hemoglobin 6.1 will give one PRBC - will continue to monitor - Pt has postive FOBT ID - Sepsis secondary UTI vs Right sided PNA - Treating via zosyn - ID consult appreciated - WBC came down. Will cont to monitor. Endocrine - Hypoglycemia vs refeeding syndrome - Nutirition consult appreciated who states keep daily glucose under 150gm a day - pt keeps going hypoglycemic will monitor q2hr and give more glucose if hypoglycemic and symptomatic (give only half of D25) - vital 1.2 now at 20cc . Then will increase to 30cc on 07/10 if electrolytes again are coming back normal. Goal rate is 42. FEN - monitor electrolytes including phosphate and magnesium possible refeeding syndrome - Pt will get BMP Mg and Phos BID to monitor electrolyte def PPx - DVT- heparin 5000 units per day - Protonix held due to hypomagnesmia Visit type - Emergency Visit Emergency Visit: Yes ED Registration Date: 07/01/20 Care time: The patient presented to the Emergency Department on the above date and was hospitalized for further evaluation of their emergent condition. - New Patient This patient is new to me today: No - Critical Care Critical Care patient: Yes Total Critical Care Time (in minutes): 36 Critical Care Statement: The care of this patient involved high complexity decision making to prevent further life threatening deterioration of the patient's condition and/or to evaluate & treat vital organ system(s) failure or risk of failure. ATTENDING PHYSICIAN STATEMENT I saw and evaluated the patient. I reviewed the resident's note and discussed the case with the resident. I agree with the resident's findings and plan as documented. SUBJECTIVE: OBJECTIVE: ASSESSMENT AND PLAN:
[2020-07-09] MEDS: DEXTROSE 5%-NORMAL SALINE 1,000 ML IV SCH (17:49)
[2020-07-09] MEDS: KCL 10 MEQ IVPB 10 MEQ/100 ML INFUS.BAG IVPB SCH ×3 (17:49→22:16)
[2020-07-09] MEDS ORDERED: POTASSIUM PHOSPHATE 30 MM in SODIUM CHLORIDE 250 ML IVPB ONE (18:00)
[2020-07-09] MEDS ORDERED: FENTANYL NS IVPB 500 MCG/100 ML BAG IVPB ONE (20:01)
[2020-07-09] MEDS ORDERED: MIDAZOLAM IN 0.9 % SOD.CHLORID 1 MG/1 ML PLAST..BAG ONE (20:02)
[2020-07-09 20:31] LABS: BASO % 0.4 % (0-2.0); EOS % 1.1 % (0-4.5); HEMATOCRIT 17.1 % (32.4-45.2); LYMPH % 13.2 % (8-40); MCH 29.8 pg (25.7-33.7); MCHC 35.3 g/dl (32.0-36.0); MEAN CELL VOLUME 84.4 fl (80-96); MEAN PLT VOLUME 8.9 fl (7.5-11.1); MONO % 5.2 % (3.8-10.2); NEUT % 80.1 % (42.8-82.8); RBC 2.03 M/mm3 (3.60-5.2); WHITE BLOOD COUNT 5.2 K/mm3 (4.0-10.0)
[2020-07-09 20:34] LABS: HEMOGLOBIN 6.1 GM/dL (10.7-15.3); PLATELET COUNT 31 K/MM3 (134-434)
--- NOTE | 2020-07-09 21:28 | PN ---
Progress Note, Physician History of Present Illness: Pt remains intubated - Current Medication List Current Medications: Active Medications Albuterol/Ipratropium (Duoneb -) 1 amp NEB Q6H PRN PRN Reason: SHORTNESS OF BREATH Last Admin: 07/07/20 22:03 Dose: 1 amp Documented by: Dextrose (D50w (Vial) -) 12.5 gm IVPUSH PRN PRN PRN Reason: HYPOGLYCEMIA Last Admin: 07/08/20 07:38 Dose: 12.5 gm Documented by: Folic Acid (Folic Acid -) 1 mg NGT DAILY RAUL Last Admin: 07/09/20 10:27 Dose: 1 mg Documented by: Piperacillin Sod/Tazobactam (Sod 3.375 gm/ Dextrose) 50 mls @ 100 mls/hr IVPB Q8H-IV RAUL; Protocol Last Admin: 07/09/20 18:11 Dose: 100 mls/hr Documented by: Dextrose/Sodium Chloride (D5-Ns -) 1,000 mls @ 30 mls/hr IV ASDIR RAUL Last Admin: 07/09/20 17:49 Dose: 30 mls/hr Documented by: Vasopressin 40 units/ Sodium (Chloride) 100 mls @ 5 mls/hr IVPB ASDIR RAUL; Protocol Last Admin: 07/09/20 07:30 Dose: 5 units/hr, 12.5 mls/hr Documented by: Midazolam HCl 100 mg/ Sodium (Chloride) 100 mls @ 1 mls/hr IVPB TITR RAUL; Protocol Last Admin: 07/09/20 07:30 Dose: 6 mg/hr, 6 mls/hr Documented by: Fentanyl (Sublimaze Ivpb) 500 mcg in 100 mls @ 5 mls/hr IVPB TITR RAUL Last Admin: 07/08/20 17:18 Dose: 25 mcg/hr, 5 mls/hr Documented by: Potassium Phosphate 30 mm/ (Sodium Chloride) 260 mls @ 40 mls/hr IVPB ONCE ONE Stop: 07/10/20 00:29 Last Admin: 07/09/20 18:11 Dose: 40 mls/hr Documented by: Multivitamins/Minerals (Certavite-Antioxidant Liquid) 15 ml NGT DAILY RAUL Last Admin: 07/09/20 10:27 Dose: 15 ml Documented by: Potassium Phos/Sodium Phos (Phos-Nak Packet -) 1 packet PO TID [facility] Last Admin: 07/09/20 14:14 Dose: 1 packet Documented by: Thiamine HCl (Vitamin B1 Injection -) 100 mg IVPB DAILY [facility] Stop: 07/09/20 23:59 Last Admin: 07/09/20 10:28 Dose: 100 mg Documented by: - Objective Vital Signs: Vital Signs Temperature 98.2 F 07/09/20 16:58 Pulse Rate 62 07/09/20 21:08 Respiratory Rate 16 07/09/20 20:00 Blood Pressure 73/52 L 07/09/20 16:58 O2 Sat by Pulse Oximetry (%) 100 07/09/20 21:08 Constitutional: Yes: Cachectic Cardiovascular: Yes: Tachycardia Respiratory: Yes: Diminished Gastrointestinal: Yes: WNL, Normal Bowel Sounds, Soft Labs: CBC, BMP 07/09/20 18:30 07/09/20 15:30 INR, PTT INR 2.08 (0.83-1.09) H 07/06/20 08:05 Problem List - Problems (1) At risk for electrolyte imbalance Assessment/Plan: Electrolytes improving Cont to monitor Code(s): Z91.89 - OT PERSONAL RISK FACTORS, NOT ELSEWHERE CLASSIFIED (2) Sepsis Assessment/Plan: Lactic acidosis Cont IVF Cont IV antibxs UTI vs Aspiration pneumonia Blood culture/urine culture negative to date Code(s): A41.9 - SEPSIS, UNSPECIFIED ORGANISM Qualifiers: Sepsis type: sepsis due to unspecified organism Sepsis acute organ dysfunction status: unspecified Qualified Code(s): A41.9 - Sepsis, unspecified organism (3) SBO (small bowel obstruction) Assessment/Plan: Surgical consult noted Cont NPO Cont IVF Monitor serial abdominal xrays Monitor hypoglycemia CT scan abd showed probable anasacra/ascites Code(s): K56.609 - UNSP INTESTNL OBST, UNSP TO PARTIAL VERSUS COMPLETE OBST (4) Respiratory failure Assessment/Plan: RLL infiltrates ?Asp pneumonia Cont IV antibxs Code(s): J96.90 - RESPIRATORY FAILURE, UNSP, UNSP W HYPOXIA OR HYPERCAPNIA (5) Liver cirrhosis, alcoholic Code(s): K70.30 - ALCOHOLIC CIRRHOSIS OF LIVER WITHOUT ASCITES (6) Hypoalbuminemia Code(s): E88.09 - OTH DISORDERS OF PLASMA-PROTEIN METABOLISM, NEC (7) Substance abuse Code(s): F19.10 - OTHER PSYCHOACTIVE SUBSTANCE ABUSE, UNCOMPLICATED (8) Cachexia Code(s): R64 - CACHEXIA
[2020-07-09] MEDS: FENTANYL NS IVPB 500 MCG/100 ML BAG IVPB SCH (22:15)
[2020-07-10] MEDS ORDERED: DEXTROSE 5%-WATER - 50 ML IVPB ONE ×3 (00:16→16:21)
[2020-07-10] MEDS ORDERED: PIPERACILLIN/TAZOBACTAM 3.375 GM VIAL IVPB ONE ×3 (00:16→16:21)
[2020-07-10] MEDS: PIPERACILLIN/TAZOB 3.375 GM 3.375 GM in DEXTROSE 5%-WATER - 50 ML IVPB SCH ×3 (01:39→17:49)
[2020-07-10] MEDS ORDERED: FENTANYL IVPB 500 MCG/100 ML BAG IVPB ONE (02:17)
[2020-07-10] MEDS: NAPH,MB-DB/K PH,MBDB POWDER PACKET PO SCH ×3 (06:27→23:00)
[2020-07-10] MEDS: VASOPRESSIN 40 UNITS in SODIUM CHLORIDE 98 ML IVPB SCH (06:27)
[2020-07-10] MEDS: MIDAZOLAM 100 MG in SODIUM CHLORIDE 100 ML IVPB SCH ×2 (06:35→23:55)
[2020-07-10] MEDS ORDERED: VASOPRESSIN 20 UNITS/ML VIAL IV ONE ×2 (08:31→14:43)
[2020-07-10] MEDS ORDERED: PT OWN MED DRAWER 7, Y5N ONE (08:45)
[2020-07-10] MEDS: MULTIVIT-MINERALS ORAL LIQUID NGT SCH (09:09)
[2020-07-10] MEDS: FOLIC ACID 1 MG TABLET (FP) NGT SCH (09:09)
[2020-07-10 11:11] LABS: BASO % 0.3 % (0-2.0); EOS % 0.2 % (0-4.5); HEMATOCRIT 30.1 % (32.4-45.2); HEMOGLOBIN 10.6 GM/dL (10.7-15.3); LYMPH % 8.9 % (8-40); MCH 30.4 pg (25.7-33.7); MCHC 35.2 g/dl (32.0-36.0); MEAN CELL VOLUME 86.5 fl (80-96); MEAN PLT VOLUME 10.3 fl (7.5-11.1); MONO % 3.1 % (3.8-10.2); NEUT % 87.5 % (42.8-82.8); PLATELET COUNT 56 K/MM3 (134-434); RBC 3.48 M/mm3 (3.60-5.2); RDW 14.2 % (11.6-15.6); WHITE BLOOD COUNT 8.9 K/mm3 (4.0-10.0)
[2020-07-10 11:25] LABS: ALBUMIN 1.1 g/dl (3.4-5.0); ANION GAP 9 MMOL/L (8-16); BILIRUBIN,TOTAL 1.4 mg/dL (0.2-1); BLOOD UREA NITROGEN 20.1 mg/dL (7-18); CHLORIDE 105 mmol/L (98-107); CO2 17 mmol/L (21-32); CREATININE < 0.2 mg/dL (0.55-1.3); GLUCOSE,RANDOM 66 mg/dL (74-106); POTASSIUM 4.5 mmol/L (3.5-5.1); SGOT/AST 82 U/L (15-37); SGPT/ALT 218 U/L (13-61); SODIUM 131 mmol/L (136-145); TOT PROT 4.2 g/dl (6.4-8.2)
[2020-07-10 11:39] LABS: ALK PHOS 576 U/L (45-117)
[2020-07-10] MEDS ORDERED: MORPHINE SULFATE 2 MG/ML VIAL ONE (12:07)
[2020-07-10] MEDS: MORPHINE SULFATE 2 MG/ML VIAL IVPUSH PRN ×2 (12:08→17:48)
[2020-07-10 13:11] LABS: CALCIUM 6.3 mg/dL (8.5-10.1)
--- NOTE | 2020-07-10 13:50 | PN ---
Progress Note, Physician History of Present Illness: continues to be intubated plan to change the central line - Current Medication List Current Medications: Active Medications Albuterol/Ipratropium (Duoneb -) 1 amp NEB Q6H PRN PRN Reason: SHORTNESS OF BREATH Last Admin: 07/07/20 22:03 Dose: 1 amp Documented by: Dextrose (D50w (Vial) -) 12.5 gm IVPUSH PRN PRN PRN Reason: HYPOGLYCEMIA Last Admin: 07/08/20 07:38 Dose: 12.5 gm Documented by: Folic Acid (Folic Acid -) 1 mg NGT DAILY RAUL Last Admin: 07/10/20 09:09 Dose: 1 mg Documented by: Piperacillin Sod/Tazobactam (Sod 3.375 gm/ Dextrose) 50 mls @ 100 mls/hr IVPB Q8H-IV RAUL; Protocol Last Admin: 07/10/20 09:10 Dose: 100 mls/hr Documented by: Dextrose/Sodium Chloride (D5-Ns -) 1,000 mls @ 30 mls/hr IV ASDIR RAUL Last Admin: 07/09/20 17:49 Dose: 30 mls/hr Documented by: Vasopressin 40 units/ Sodium (Chloride) 100 mls @ 5 mls/hr IVPB ASDIR RAUL; Protocol Last Titration: 07/10/20 07:04 Dose: 4 units/hr, 10 mls/hr Documented by: Midazolam HCl 100 mg/ Sodium (Chloride) 100 mls @ 1 mls/hr IVPB TITR RAUL; Protocol Last Admin: 07/10/20 06:35 Dose: 6 mg/hr, 6 mls/hr Documented by: Morphine Sulfate (Morphine Sulfate) 2 mg IVPUSH ONCE PRN PRN Reason: PAIN LEVEL 4 - 6 Stop: 07/11/20 12:03 Last Admin: 07/10/20 12:08 Dose: 2 mg Documented by: Multivitamins/Minerals (Certavite-Antioxidant Liquid) 15 ml NGT DAILY RAUL Last Admin: 07/10/20 09:09 Dose: 15 ml Documented by: Potassium Phos/Sodium Phos (Phos-Nak Packet -) 1 packet PO TID RAUL Last Admin: 07/10/20 06:27 Dose: 1 packet Documented by: - Objective Vital Signs: Vital Signs Temperature 97.7 F 07/10/20 12:41 Pulse Rate 62 07/10/20 12:42 Respiratory Rate 16 07/10/20 12:42 Blood Pressure 90/73 07/10/20 12:00 O2 Sat by Pulse Oximetry (%) 100 07/10/20 12:15 Constitutional: Yes: Other Cardiovascular: Yes: S1, S2 Respiratory: Yes: Intubated, Mechanically Ventilated Gastrointestinal: Yes: Normal Bowel Sounds, Soft, Other (og tube in place) Genitourinary: Yes: Uribe Present Musculoskeletal: Yes: WNL Extremities: Yes: WNL Labs: CBC, BMP 07/10/20 08:30 07/10/20 08:30 INR, PTT INR 2.08 (0.83-1.09) H 07/06/20 08:05 - ....Imaging Chest X-ray: Report Reviewed, Image Reviewed Cat Scan: Report Reviewed, Image Reviewed Assessment/Plan Pneumonia likely Aspiration UTI Sepsis Hyponatremia SBO resolving Alcohol/Heroin Abuse Anemia Failure to Thrive Severe Protein Calorie Malnutrition uti plan continue current mgmt abx nutrition rest as per icu cc 36 min
--- NOTE | 2020-07-10 14:36 | PN ---
Progress Note, Physician History of Present Illness: Pt seen and examined at bedside. She remains in the ICU. She remains intubated. - Current Medication List Current Medications: Active Medications Albuterol/Ipratropium (Duoneb -) 1 amp NEB Q6H PRN PRN Reason: SHORTNESS OF BREATH Last Admin: 07/07/20 22:03 Dose: 1 amp Documented by: Dextrose (D50w (Vial) -) 12.5 gm IVPUSH PRN PRN PRN Reason: HYPOGLYCEMIA Last Admin: 07/08/20 07:38 Dose: 12.5 gm Documented by: Folic Acid (Folic Acid -) 1 mg NGT DAILY RAUL Last Admin: 07/10/20 09:09 Dose: 1 mg Documented by: Piperacillin Sod/Tazobactam (Sod 3.375 gm/ Dextrose) 50 mls @ 100 mls/hr IVPB Q8H-IV RAUL; Protocol Last Admin: 07/10/20 09:10 Dose: 100 mls/hr Documented by: Dextrose/Sodium Chloride (D5-Ns -) 1,000 mls @ 30 mls/hr IV ASDIR RAUL Last Admin: 07/09/20 17:49 Dose: 30 mls/hr Documented by: Vasopressin 40 units/ Sodium (Chloride) 100 mls @ 5 mls/hr IVPB ASDIR RAUL; Protocol Last Titration: 07/10/20 07:04 Dose: 4 units/hr, 10 mls/hr Documented by: Midazolam HCl 100 mg/ Sodium (Chloride) 100 mls @ 1 mls/hr IVPB TITR RAUL; Protocol Last Admin: 07/10/20 06:35 Dose: 6 mg/hr, 6 mls/hr Documented by: Morphine Sulfate (Morphine Sulfate) 2 mg IVPUSH ONCE PRN PRN Reason: PAIN LEVEL 4 - 6 Stop: 07/11/20 12:03 Last Admin: 07/10/20 12:08 Dose: 2 mg Documented by: Multivitamins/Minerals (Certavite-Antioxidant Liquid) 15 ml NGT DAILY RAUL Last Admin: 07/10/20 09:09 Dose: 15 ml Documented by: Potassium Phos/Sodium Phos (Phos-Nak Packet -) 1 packet PO TID RAUL Last Admin: 07/10/20 06:27 Dose: 1 packet Documented by: - Objective Vital Signs: Vital Signs Temperature 97.7 F 07/10/20 12:41 Pulse Rate 68 07/10/20 14:00 Respiratory Rate 20 07/10/20 14:00 Blood Pressure 92/73 07/10/20 14:00 O2 Sat by Pulse Oximetry (%) 100 07/10/20 12:15 Constitutional: Yes: Calm, Cachectic Eyes: Yes: Conjunctiva Clear Cardiovascular: Yes: S1, S2 Respiratory: Yes: Mechanically Ventilated Gastrointestinal: Yes: Soft Genitourinary: Yes: Uribe Present Musculoskeletal: Yes: Muscle Weakness Edema: Yes Edema: LLE: Trace, RLE: Trace Integumentary: Yes: WNL Neurological: Yes: Lethargy Labs: CBC, BMP 07/10/20 08:30 07/10/20 08:30 INR, PTT INR 2.08 (0.83-1.09) H 07/06/20 08:05 Problem List - Problems (1) Hypoglycemia Code(s): E16.2 - HYPOGLYCEMIA, UNSPECIFIED (2) Sepsis Code(s): A41.9 - SEPSIS, UNSPECIFIED ORGANISM Qualifiers: Sepsis type: sepsis due to unspecified organism Sepsis acute organ dysfunction status: unspecified Qualified Code(s): A41.9 - Sepsis, unspecified organism (3) Hypoalbuminemia Code(s): E88.09 - OTH DISORDERS OF PLASMA-PROTEIN METABOLISM, NEC (4) Hyponatremia Code(s): E87.1 - HYPO-OSMOLALITY AND HYPONATREMIA Assessment/Plan Current Medications Generic Name Dose Route Start Last Admin Trade Name Freq PRN Reason Stop Dose Admin Albuterol/Ipratropium 1 amp 07/07/20 19:45 07/07/20 22:03 Duoneb - NEB 1 amp Q6H PRN Administration SHORTNESS OF BREATH Dextrose 12.5 gm 07/08/20 07:08 07/08/20 07:38 D50w (Vial) - IVPUSH 12.5 gm PRN PRN Administration HYPOGLYCEMIA Folic Acid 1 mg 07/06/20 10:00 07/10/20 09:09 Folic Acid - NGT 1 mg DAILY RAUL Administration Piperacillin Sod/Tazobactam 50 mls @ 100 mls/hr 07/02/20 18:00 07/10/20 09:10 Sod 3.375 gm/ Dextrose IVPB 100 mls/hr Q8H-IV RAUL Administration Protocol Dextrose/Sodium Chloride 1,000 mls @ 30 mls/hr 07/05/20 13:30 07/09/20 17:49 D5-Ns - IV 30 mls/hr ASDIR RAUL Administration Vasopressin 40 units/ Sodium 100 mls @ 5 mls/hr 07/08/20 07:00 07/10/20 07:04 Chloride IVPB 4 units/hr ASDIR RAUL 10 mls/hr Titration Protocol 2 UNITS/HR Midazolam HCl 100 mg/ Sodium 100 mls @ 1 mls/hr 07/08/20 07:15 07/10/20 06:35 Chloride IVPB 6 mg/hr TITR RAUL 6 mls/hr Administration Protocol 1 MG/HR Morphine Sulfate 2 mg 07/10/20 12:04 07/10/20 12:08 Morphine Sulfate IVPUSH 07/11/20 12:03 2 mg ONCE PRN Administration PAIN LEVEL 4 - 6 Multivitamins/Minerals 15 ml 07/06/20 11:45 07/10/20 09:09 Certavite-Antioxidant Liquid NGT 15 ml DAILY RAUL Administration Potassium Phos/Sodium Phos 1 packet 07/09/20 14:00 07/10/20 06:27 Phos-Nak Packet - PO 1 packet TID RAUL Administration Impression 1. azotemia 2. hyponatremia 3. hyperkalemia 4. hypotension 5. sepsis 6. sbo 7. uti 8. liver cirrhosis 9. hypoalbuminemia 10. etoh abuse 11. substance abuse 12. psoriasis 13. acute resp failure 14. malnutrition Plan - potassium stable - cont feeds and advance as tolerated - dietary follow up - repeat labs in am - discussed with ICU team - monitor glucose - cont vent support
--- NOTE | 2020-07-10 14:58 | PN ---
Teaching Attending Note Name of Resident: Gio Howard ATTENDING PHYSICIAN STATEMENT I saw and evaluated the patient. I reviewed the resident's note and discussed the case with the resident. I agree with the resident's findings and plan as documented. SUBJECTIVE: Patient seen and examined in the ICU. Remains intubated and sedated. AC Mode of vent. PPlat : 10 4 units of Vasopressin for hemodynamic support. Diarrhea : feedings were doubled to 20cc yesterday. Intake & Output 07/07/20 07/08/20 07/09/20 07/10/20 23:59 23:59 23:59 23:59 Intake Total 855 1154 1858 1444 Output Total 600 750 100 350 Balance 085 735 1513 1094 Weight 76 lb 4.8 oz 77 lb 6.116 oz 170 lb 10.205 oz 73 lb 8 oz Last Vital Signs Temp Pulse Resp BP Pulse Ox 97.7 F 68 20 92/73 100 07/10/20 12:41 07/10/20 14:00 07/10/20 14:00 07/10/20 14:00 07/10/20 12:15 Active Medications Albuterol/Ipratropium (Duoneb -) 1 amp NEB Q6H PRN PRN Reason: SHORTNESS OF BREATH Last Admin: 07/07/20 22:03 Dose: 1 amp Documented by: Dextrose (D50w (Vial) -) 12.5 gm IVPUSH PRN PRN PRN Reason: HYPOGLYCEMIA Last Admin: 07/08/20 07:38 Dose: 12.5 gm Documented by: Folic Acid (Folic Acid -) 1 mg NGT DAILY RAUL Last Admin: 07/10/20 09:09 Dose: 1 mg Documented by: Piperacillin Sod/Tazobactam (Sod 3.375 gm/ Dextrose) 50 mls @ 100 mls/hr IVPB Q8H-IV RAUL; Protocol Last Admin: 07/10/20 09:10 Dose: 100 mls/hr Documented by: Dextrose/Sodium Chloride (D5-Ns -) 1,000 mls @ 30 mls/hr IV ASDIR RAUL Last Admin: 07/09/20 17:49 Dose: 30 mls/hr Documented by: Vasopressin 40 units/ Sodium (Chloride) 100 mls @ 5 mls/hr IVPB ASDIR RAUL; Protocol Last Titration: 07/10/20 07:04 Dose: 4 units/hr, 10 mls/hr Documented by: Midazolam HCl 100 mg/ Sodium (Chloride) 100 mls @ 1 mls/hr IVPB TITR [facility]; Protocol Last Admin: 07/10/20 06:35 Dose: 6 mg/hr, 6 mls/hr Documented by: Morphine Sulfate (Morphine Sulfate) 2 mg IVPUSH ONCE PRN PRN Reason: PAIN LEVEL 4 - 6 Stop: 07/11/20 12:03 Last Admin: 07/10/20 12:08 Dose: 2 mg Documented by: Multivitamins/Minerals (Certavite-Antioxidant Liquid) 15 ml NGT DAILY [facility] Last Admin: 07/10/20 09:09 Dose: 15 ml Documented by: Potassium Phos/Sodium Phos (Phos-Nak Packet -) 1 packet PO TID [facility] Last Admin: 07/10/20 14:44 Dose: 1 packet Documented by: GEN: Wasted (BMI = 13), intubated & sedated HEENT: temporal wasting, sclera slightly icteric, dry MM PULM: Vented, Clear Heart: RRR ABD: scaphoid, (+) BS, S/S N/T SKIN: pale, cool, w/ multiple small patches of ecchymosis in different stages of healing EXT: peripheral edema Laboratory Results - last 24 hr 07/09/20 07/09/20 07/09/20 15:30 15:30 16:28 WBC 5.7 RBC 2.11 L Hgb 6.2 L* Hct 17.9 L D MCV 84.8 MCH 29.5 MCHC 34.8 RDW 14.0 Plt Count 36 L* D MPV 9.8 Absolute Neuts (auto) Neutrophils % Lymphocytes % Monocytes % Eosinophils % Basophils % Nucleated RBC % Sodium 133 L Potassium 2.8 L* Chloride 105 Carbon Dioxide 18 L Anion Gap 10 BUN 16.5 Creatinine < 0.2 L Est GFR (CKD-EPI)AfAm 197.85 Est GFR (CKD-EPI)NonAf 170.70 POC Glucometer 94 Random Glucose 93 Calcium 6.0 L* Phosphorus 1.9 L Magnesium 3.1 H Total Bilirubin 0.8 Direct Bilirubin 0.3 H AST 66 H ALT 211 H Alkaline Phosphatase 513 H Creatine Kinase 38 Total Protein 3.4 L Albumin 0.9 L Blood Type Antibody Screen Crossmatch 09/05/2107/09/20 07/10/20 18:30 18:30 08:30 WBC 5.2 8.9 RBC 2.03 L 3.48 L Hgb 6.1 L* 10.6 L Hct 17.1 L 30.1 L D MCV 84.4 86.5 MCH 29.8 30.4 MCHC 35.3 35.2 RDW 14.0 14.2 Plt Count 31 L* 56 L D MPV 8.9 10.3 D Absolute Neuts (auto) 4.2 7.8 Neutrophils % 80.1 87.5 H Lymphocytes % 13.2 D 8.9 D Monocytes % 5.2 D 3.1 L Eosinophils % 1.1 0.2 D Basophils % 0.4 0.3 Nucleated RBC % 0 0 Sodium Potassium Chloride Carbon Dioxide Anion Gap BUN Creatinine Est GFR (CKD-EPI)AfAm Est GFR (CKD-EPI)NonAf POC Glucometer Random Glucose Calcium Phosphorus Magnesium Total Bilirubin Direct Bilirubin AST ALT Alkaline Phosphatase Creatine Kinase Total Protein Albumin Blood Type O POSITIVE Antibody Screen Negative Crossmatch See Detail 07/10/20 07/10/20 08:30 11:40 WBC RBC Hgb Hct MCV MCH MCHC RDW Plt Count MPV Absolute Neuts (auto) Neutrophils % Lymphocytes % Monocytes % Eosinophils % Basophils % Nucleated RBC % Sodium 131 L Potassium 4.5 Chloride 105 Carbon Dioxide 17 L Anion Gap 9 BUN 20.1 H Creatinine < 0.2 L Est GFR (CKD-EPI)AfAm 197.85 Est GFR (CKD-EPI)NonAf 170.70 POC Glucometer 96 Random Glucose 66 L Calcium 6.3 L* Phosphorus 3.0 Magnesium 2.0 Total Bilirubin 1.4 H Direct Bilirubin AST 82 H ALT 218 H Alkaline Phosphatase 576 H Creatine Kinase Total Protein 4.2 L Albumin 1.1 L Blood Type Antibody Screen Crossmatch ASSESS: -Acute Hypoxic Respiratory Failure due to Aspiration PNA -Liver Failure -Bone Marrow Failure -MSOF -UTI -Sepsis -Hyponatremia -SBO -Alcohol/Heroin Abuse -Anemia -FTT -Severe Protein Calorie Malnutrition -Refeeding Syndrome PLAN: - Insert TLC and Griffin - Continue Enteral feeds @ 20ml/hr : Add banana flakes - Monitor off Fentanyl - Monitor e-lyes closely & replete prn --> keep K>4, Mg>2, PO4 > 3.5 - continue Zosyn for UTI +/- ASP PNA - f/u cultures - titrate O2 to keep SpO2 >90% - Sedation vacation - Heparin SQ for DVT prophylaxis - continue ICU monitoring - Prognosis is grim --> Will need to discuss further GOC with family Dr Babb Critical care time spent in reviewing chart, evaluating patient and formulating plan - 36 minutes.
--- NOTE | 2020-07-10 15:30 | PN ---
Physical Exam: SUBJECTIVE: Patient seen and examined intubated and sedated OBJECTIVE: Vital Signs Period Temp Pulse Resp BP Sys/Campbell Pulse Ox Last 24 Hr 95.5 F-98.4 F 44-68 14-20 73-97/40-73 81-100 GENERAL: Intubated and sedated HEAD: No signs of trauma, normocephalic, atraumatic EYES: PERRLA, EOMI, sclera anicteric, conjunctiva clear ENT: Auricles normal inspection, hearing grossly normal, nares patent NECK: Normal ROM, supple, no lymphadenopathy, JVD, or masses LUNGS: dec breath sounds at bilateral bases HEART: Regular rate and rhythm, normal S1 and S2, no murmurs, rubs or gallops, peripheral pulses normal and equal bilaterally. ABDOMEN: Grimacing when palpating abdomen EXTREMITIES : cachectic and weeping with bilateral pitting edema in upper and lower ext NEUROLOGICAL: Pt awake and able to follow commands and open eyes spontaneously SKIN:Cachectic Laboratory Results - last 24 hr 07/09/20 07/09/20 07/09/20 15:30 15:30 16:28 WBC 5.7 RBC 2.11 L Hgb 6.2 L* Hct 17.9 L D MCV 84.8 MCH 29.5 MCHC 34.8 RDW 14.0 Plt Count 36 L* D MPV 9.8 Absolute Neuts (auto) Neutrophils % Lymphocytes % Monocytes % Eosinophils % Basophils % Nucleated RBC % Sodium 133 L Potassium 2.8 L* Chloride 105 Carbon Dioxide 18 L Anion Gap 10 BUN 16.5 Creatinine < 0.2 L Est GFR (CKD-EPI)AfAm 197.85 Est GFR (CKD-EPI)NonAf 170.70 POC Glucometer 94 Random Glucose 93 Calcium 6.0 L* Phosphorus 1.9 L Magnesium 3.1 H Total Bilirubin 0.8 Direct Bilirubin 0.3 H AST 66 H ALT 211 H Alkaline Phosphatase 513 H Creatine Kinase 38 Total Protein 3.4 L Albumin 0.9 L Blood Type Antibody Screen Crossmatch 07/09/20 07/09/20 07/10/20 18:30 18:30 08:30 WBC 5.2 8.9 RBC 2.03 L 3.48 L Hgb 6.1 L* 10.6 L Hct 17.1 L 30.1 L D MCV 84.4 86.5 MCH 29.8 30.4 MCHC 35.3 35.2 RDW 14.0 14.2 Plt Count 31 L* 56 L D MPV 8.9 10.3 D Absolute Neuts (auto) 4.2 7.8 Neutrophils % 80.1 87.5 H Lymphocytes % 13.2 D 8.9 D Monocytes % 5.2 D 3.1 L Eosinophils % 1.1 0.2 D Basophils % 0.4 0.3 Nucleated RBC % 0 0 Sodium Potassium Chloride Carbon Dioxide Anion Gap BUN Creatinine Est GFR (CKD-EPI)AfAm Est GFR (CKD-EPI)NonAf POC Glucometer Random Glucose Calcium Phosphorus Magnesium Total Bilirubin Direct Bilirubin AST ALT Alkaline Phosphatase Creatine Kinase Total Protein Albumin Blood Type O POSITIVE Antibody Screen Negative Crossmatch See Detail 07/10/20 07/10/20 08:30 11:40 WBC RBC Hgb Hct MCV MCH MCHC RDW Plt Count MPV Absolute Neuts (auto) Neutrophils % Lymphocytes % Monocytes % Eosinophils % Basophils % Nucleated RBC % Sodium 131 L Potassium 4.5 Chloride 105 Carbon Dioxide 17 L Anion Gap 9 BUN 20.1 H Creatinine < 0.2 L Est GFR (CKD-EPI)AfAm 197.85 Est GFR (CKD-EPI)NonAf 170.70 POC Glucometer 96 Random Glucose 66 L Calcium 6.3 L* Phosphorus 3.0 Magnesium 2.0 Total Bilirubin 1.4 H Direct Bilirubin AST 82 H ALT 218 H Alkaline Phosphatase 576 H Creatine Kinase Total Protein 4.2 L Albumin 1.1 L Blood Type Antibody Screen Crossmatch Active Medications Generic Name Dose Route Start Last Admin Trade Name Freq PRN Reason Stop Dose Admin Albuterol/Ipratropium 1 amp 07/07/20 19:45 07/07/20 22:03 Duoneb - NEB 1 amp Q6H PRN Administration SHORTNESS OF BREATH Dextrose 12.5 gm 07/08/20 07:08 07/08/20 07:38 D50w (Vial) - IVPUSH 12.5 gm PRN PRN Administration HYPOGLYCEMIA Folic Acid 1 mg 07/06/20 10:00 07/10/20 09:09 Folic Acid - NGT 1 mg DAILY RAUL Administration Piperacillin Sod/Tazobactam 50 mls @ 100 mls/hr 07/02/20 18:00 07/10/20 09:10 Sod 3.375 gm/ Dextrose IVPB 100 mls/hr Q8H-IV RAUL Administration Protocol Dextrose/Sodium Chloride 1,000 mls @ 30 mls/hr 07/05/20 13:30 07/09/20 17:49 D5-Ns - IV 30 mls/hr ASDIR RAUL Administration Vasopressin 40 units/ Sodium 100 mls @ 5 mls/hr 07/08/20 07:00 07/10/20 07:04 Chloride IVPB 4 units/hr ASDIR RAUL 10 mls/hr Titration Protocol 2 UNITS/HR Midazolam HCl 100 mg/ Sodium 100 mls @ 1 mls/hr 07/08/20 07:15 07/10/20 06:35 Chloride IVPB 6 mg/hr TITR RAUL 6 mls/hr Administration Protocol 1 MG/HR Morphine Sulfate 2 mg 07/10/20 12:04 07/10/20 12:08 Morphine Sulfate IVPUSH 07/11/20 12:03 2 mg ONCE PRN Administration PAIN LEVEL 4 - 6 Multivitamins/Minerals 15 ml 07/06/20 11:45 07/10/20 09:09 Certavite-Antioxidant Liquid NGT 15 ml DAILY RAUL Administration Potassium Phos/Sodium Phos 1 packet 07/09/20 14:00 07/10/20 14:44 Phos-Nak Packet - PO 1 packet TID RAUL Administration ASSESSMENT/PLAN: 34 yo female coming in to ICU due to possible sepsis due to UTI and PNA, Refeeding syndrome, and SBO Neuro - Altered Mental Status- Most likely due to hypoglycemia. - Pt now intubated and sedated on midazolam. D/c fentanyl due to SBO. Started Morphine Prn due to pain. Cardiac - HTN- will hold bp meds - Monitoring BP keep >65. - on 4 of vasopressin Resp - pt has history of asthma- will give albuterol if pt has asthma - Pt was tachypnic and having trouble breathing so was intubated 07/04 now saturating at 100% - pts vent settings RR 15, Vt: 350 FiO2: 50% PEEP 5. Pt FiO2 came down because pt was not desaturating anymore. GI - SBO - Appreciate Surgery consult - Will do NG tube PRN - WIll keep pt NPO and give IV hydration - CT of abd/pelvis with oral contrast- SBO with moderate improvement will continue to monitor Xrays - xray 07/06- shows moderate improvement of SBO - Appreciate GI consult - pt having massive diarrhea so added banana flakes to diet - repeat labs improved - Repleted K phos, mg, and calcium--> Monitor e-lyes closely & replete prn --> keep K>4, Mg>2, PO4 > 3.5. - 07/10 pt lytes today were WNL will continue to monitor daily - monitor lytes closely Heme - Pt hemoglobin 10 will cont to monitor - will continue to monitor - Pt has postive FOBT ID - Sepsis secondary UTI vs Right sided PNA - Treating via zosyn - ID consult appreciated - WBC came down. Will cont to monitor. Endocrine - Hypoglycemia vs refeeding syndrome - Nutirition consult appreciated who states keep daily glucose under 150gm a day - pt keeps going hypoglycemic will monitor q2hr and give more glucose if hypoglycemic and symptomatic (give only half of D25) - vital 1.2 now at 20cc Pt has increased diarrhea possibly due to increased feeds. Will increase to 30cc tomorrow if pt electrolyte and diarrhea decreases Goal rate is 42. FEN - monitor electrolytes including phosphate and magnesium possible refeeding syndrome Lines - central line in [facility] 07/10 - arterial line planned to place tomorrow PPx - DVT- heparin 5000 units per day Held due to anemia and Stool occult positive will restart due to Hgb now at 10 - Protonix held due to hypomagnesmia Visit type - Emergency Visit Emergency Visit: Yes ED Registration Date: 07/01/20 Care time: The patient presented to the Emergency Department on the above date and was hospitalized for further evaluation of their emergent condition. - New Patient This patient is new to me today: No - Critical Care Critical Care patient: Yes Total Critical Care Time (in minutes): 36 Critical Care Statement: The care of this patient involved high complexity decision making to prevent further life threatening deterioration of the patient's condition and/or to evaluate & treat vital organ system(s) failure or risk of failure. ATTENDING PHYSICIAN STATEMENT I saw and evaluated the patient. I reviewed the resident's note and discussed the case with the resident. I agree with the resident's findings and plan as documented. SUBJECTIVE: OBJECTIVE: ASSESSMENT AND PLAN:
--- NOTE | 2020-07-10 15:30 | PROC ---
Central Line Insertion Indication: Poor Venous Access Risks and Benefits Explained: Yes Consent on Chart: Yes Central Line: Triple Lumen Catheter Anesthesia: 1% Lidocaine Sterile Technique: Yes Ultrasound Guided Assistance: Yes Position: Right Internal Jugular Post Insertion: Yes: Chest X-Ray Ordered Sterile Dressing Applied: Yes
[2020-07-10 16:08] LABS: SOLUBLE LIVER ANTIGEN ABS IgG 1.4 units (0.0-20.0)
[2020-07-10] MEDS ORDERED: MIDAZOLAM IN 0.9 % SOD.CHLORID 1 MG/1 ML PLAST..BAG ONE (16:21)
--- NOTE | 2020-07-10 16:22 | PN ---
Progress Note, Physician History of Present Illness: INTUBATED - Current Medication List Current Medications: Active Medications Albuterol/Ipratropium (Duoneb -) 1 amp NEB Q6H PRN PRN Reason: SHORTNESS OF BREATH Last Admin: 07/07/20 22:03 Dose: 1 amp Documented by: Dextrose (D50w (Vial) -) 12.5 gm IVPUSH PRN PRN PRN Reason: HYPOGLYCEMIA Last Admin: 07/08/20 07:38 Dose: 12.5 gm Documented by: Folic Acid (Folic Acid -) 1 mg NGT DAILY RAUL Last Admin: 07/10/20 09:09 Dose: 1 mg Documented by: Piperacillin Sod/Tazobactam (Sod 3.375 gm/ Dextrose) 50 mls @ 100 mls/hr IVPB Q8H-IV RAUL; Protocol Last Admin: 07/10/20 09:10 Dose: 100 mls/hr Documented by: Dextrose/Sodium Chloride (D5-Ns -) 1,000 mls @ 30 mls/hr IV ASDIR RAUL Last Admin: 07/09/20 17:49 Dose: 30 mls/hr Documented by: Vasopressin 40 units/ Sodium (Chloride) 100 mls @ 5 mls/hr IVPB ASDIR RAUL; Protocol Last Titration: 07/10/20 07:04 Dose: 4 units/hr, 10 mls/hr Documented by: Midazolam HCl 100 mg/ Sodium (Chloride) 100 mls @ 1 mls/hr IVPB TITR [facility]UL; Protocol Last Admin: 07/10/20 06:35 Dose: 6 mg/hr, 6 mls/hr Documented by: Morphine Sulfate (Morphine Sulfate) 2 mg IVPUSH ONCE PRN PRN Reason: PAIN LEVEL 4 - 6 Stop: 07/11/20 12:03 Last Admin: 07/10/20 12:08 Dose: 2 mg Documented by: Multivitamins/Minerals (Certavite-Antioxidant Liquid) 15 ml NGT DAILY RAUL Last Admin: 07/10/20 09:09 Dose: 15 ml Documented by: Potassium Phos/Sodium Phos (Phos-Nak Packet -) 1 packet PO TID RAUL Last Admin: 07/10/20 14:44 Dose: 1 packet Documented by: - Objective Vital Signs: Vital Signs Temperature 97.7 F 07/10/20 12:41 Pulse Rate 76 07/10/20 16:00 Respiratory Rate 20 09/08/20 16:00 Blood Pressure 80/69 L 07/10/20 16:00 O2 Sat by Pulse Oximetry (%) 100 07/10/20 12:15 Constitutional: Yes: Calm HENT: Yes: Atraumatic Neck: Yes: Supple Cardiovascular: Yes: Regular Rate and Rhythm Respiratory: Yes: Mechanically Ventilated, Rhonchi Gastrointestinal: Yes: Normal Bowel Sounds Extremities: Yes: WNL Neurological: Yes: Other (SEDATED) Labs: CBC, BMP 07/10/20 08:30 07/10/20 08:30 INR, PTT INR 2.08 (0.83-1.09) H 07/06/20 08:05 Problem List - Problems (1) At risk for electrolyte imbalance Assessment/Plan: MONITOR AND REPLACE Code(s): Z91.89 - OT PERSONAL RISK FACTORS, NOT ELSEWHERE CLASSIFIED (2) SBO (small bowel obstruction) Assessment/Plan: ON TUBE FEEDS NOW Code(s): K56.609 - UNSP INTESTNL OBST, UNSP TO PARTIAL VERSUS COMPLETE OBST (3) Sepsis Assessment/Plan: ON IV ABX CXS NOTED ID ON BOARD Code(s): A41.9 - SEPSIS, UNSPECIFIED ORGANISM Qualifiers: Sepsis type: sepsis due to unspecified organism Sepsis acute organ dysfunction status: unspecified Qualified Code(s): A41.9 - Sepsis, unspecified organism (4) Alcoholic liver damage Code(s): K70.9 - ALCOHOLIC LIVER DISEASE, UNSPECIFIED (5) Hypoalbuminemia Code(s): E88.09 - OTH DISORDERS OF PLASMA-PROTEIN METABOLISM, NEC (6) Hyponatremia Code(s): E87.1 - HYPO-OSMOLALITY AND HYPONATREMIA (7) Liver cirrhosis, alcoholic Code(s): K70.30 - ALCOHOLIC CIRRHOSIS OF LIVER WITHOUT ASCITES (8) Ischemic hepatitis Code(s): K75.9 - INFLAMMATORY LIVER DISEASE, UNSPECIFIED (9) Respiratory failure Assessment/Plan: INTUBATED Code(s): J96.90 - RESPIRATORY FAILURE, UNSP, UNSP W HYPOXIA OR HYPERCAPNIA (10) UTI (urinary tract infection) Assessment/Plan: SEPSIS..RESOLVING ON IV ABX Code(s): N39.0 - URINARY TRACT INFECTION, SITE NOT SPECIFIED Qualifiers: Urinary tract infection type: site unspecified Hematuria presence: with hem aturia Qualified Code(s): N39.0 - Urinary tract infection, site not specified; R31.9 - Hematuria, unspecified (11) Elevated LFTs Assessment/Plan: IMPROVING Code(s): R79.89 - OTHER SPECIFIED ABNORMAL FINDINGS OF BLOOD CHEMISTRY Assessment/Plan COVERING FOR DR FOREMAN TODAY ICU CC TIME 35 MIN
[2020-07-10 18:08] LABS: HEP B CORE AB, TOT Negative (Negative)
[2020-07-10] MEDS: DEXTROSE 5%-NORMAL SALINE 1,000 ML IV SCH (18:24)
[2020-07-10] MEDS: BANATROL PLUS POWDER PACKET GT SCH (23:00)
[2020-07-10] MEDS: HEPARIN NA (PORCINE) 5,000 UNITS/ML 1ML VIAL SQ SCH (23:00)
[2020-07-11] MEDS ORDERED: PIPERACILLIN/TAZOBACTAM 3.375 GM VIAL IVPB ONE ×3 (01:35→18:37)
[2020-07-11] MEDS ORDERED: DEXTROSE 5%-WATER - 50 ML IVPB ONE ×3 (01:35→18:37)
[2020-07-11] MEDS: PIPERACILLIN/TAZOB 3.375 GM 3.375 GM in DEXTROSE 5%-WATER - 50 ML IVPB SCH ×3 (03:06→18:40)
[2020-07-11] MEDS ORDERED: MIDAZOLAM IN 0.9 % SOD.CHLORID 1 MG/1 ML PLAST..BAG ONE ×2 (05:35→20:23)
[2020-07-11 06:49] LABS: BASO % 0.2 % (0-2.0); EOS % 0.1 % (0-4.5); HEMATOCRIT 27.2 % (32.4-45.2); HEMOGLOBIN 9.4 GM/dL (10.7-15.3); LYMPH % 6.6 % (8-40); MCH 29.7 pg (25.7-33.7); MCHC 34.5 g/dl (32.0-36.0); MEAN PLT VOLUME 10.2 fl (7.5-11.1); MONO % 3.1 % (3.8-10.2); PLATELET COUNT 80 K/MM3 (134-434); RBC 3.17 M/mm3 (3.60-5.2); RDW 14.4 % (11.6-15.6); WHITE BLOOD COUNT 12.8 K/mm3 (4.0-10.0)
[2020-07-11] MEDS: BANATROL PLUS POWDER PACKET GT SCH ×3 (07:07→22:18)
[2020-07-11] MEDS: HEPARIN NA (PORCINE) 5,000 UNITS/ML 1ML VIAL SQ SCH ×3 (07:07→22:18)
[2020-07-11] MEDS: VASOPRESSIN 40 UNITS in SODIUM CHLORIDE 98 ML IVPB SCH (07:08)
[2020-07-11] MEDS: NAPH,MB-DB/K PH,MBDB POWDER PACKET PO SCH ×3 (07:08→22:19)
[2020-07-11] MEDS: MIDAZOLAM 100 MG in SODIUM CHLORIDE 100 ML IVPB SCH ×2 (07:12→20:25)
[2020-07-11 07:15] LABS: ALBUMIN 1.1 g/dl (3.4-5.0); BILIRUBIN,TOTAL 1.1 mg/dL (0.2-1); BLOOD UREA NITROGEN 23.3 mg/dL (7-18); CREATININE 0.2 mg/dL (0.55-1.3); MAGNESIUM 1.5 mg/dL (1.8-2.4); PHOSPHOROUS 2.2 mg/dL (2.5-4.9); POTASSIUM 3.4 mmol/L (3.5-5.1); TOT PROT 4.2 g/dl (6.4-8.2)
[2020-07-11 07:23] LABS: CALCIUM 5.9 mg/dL (8.5-10.1)
[2020-07-11] MEDS ORDERED: MAGNESIUM 1GM/D5W 100ML - 100 ML IVPB IVPB ONE (07:28)
[2020-07-11] MEDS ORDERED: POTASSIUM CHLORIDE 20 MEQ PREMIX IVPB 100 ML IVPB ONE (07:30)
[2020-07-11] MEDS ORDERED: MAGNESIUM SULF 50% (8.12 MEQ/2 ML-1 GM VIAL) IVPB ONE (08:20)
[2020-07-11] MEDS ORDERED: POTASSIUM PHOSPHATE 30 MM in SODIUM CHLORIDE 250 ML IVPB ONE (08:21)
[2020-07-11] MEDS: FOLIC ACID 1 MG TABLET (FP) NGT SCH (11:06)
[2020-07-11] MEDS: MULTIVIT-MINERALS ORAL LIQUID NGT SCH (11:08)
[2020-07-11] MEDS ORDERED: PT OWN MED DRAWER 7, Y5N ONE (11:08)
--- NOTE | 2020-07-11 12:42 | PN ---
Teaching Attending Note Name of Resident: Gio Howard ATTENDING PHYSICIAN STATEMENT I saw and evaluated the patient. I reviewed the resident's note and discussed the case with the resident. I agree with the resident's findings and plan as documented. SUBJECTIVE: Pt seen and examined in the ICU. Remains intubated, sedated on vasopressin gtt. Noted to have a sacral decubitus ulcer. OBJECTIVE: Vital Signs Period Temp Pulse Resp BP Sys/Campbell Pulse Ox Last 24 Hr 93.9 F-97.7 F 50-76 15-28 80-100/63-73 96-100 Intake & Output 07/08/20 07/09/20 07/10/20 07/11/20 23:59 23:59 23:59 23:59 Intake Total 1154 1858 2476 1294 Output Total 750 100 650 350 Balance 404 1758 1826 944 Weight 35.1 kg 77.4 kg 33.339 kg 33.475 kg Gen: intubated, sedated Heart: RRR Lung: scattered rhonchi Abd: soft, nontender, +ascites Ext: + edema CBC, BMP 07/11/20 05:15 07/11/20 05:15 Active Medications Albuterol/Ipratropium (Duoneb -) 1 amp NEB Q6H PRN PRN Reason: SHORTNESS OF BREATH Last Admin: 07/07/20 22:03 Dose: 1 amp Documented by: Amino Acids (Prosource No Carb Liquid Pkt) 30 ml PO BID@0800,1730 [facility] Banana Based Medical Food (Banatrol Plus Powder Packet) 1 packet GT TID [facility] Last Admin: 07/11/20 07:07 Dose: 1 packet Documented by: Dextrose (D50w (Vial) -) 12.5 gm IVPUSH PRN PRN PRN Reason: HYPOGLYCEMIA Last Admin: 07/08/20 07:38 Dose: 12.5 gm Documented by: Folic Acid (Folic Acid -) 1 mg NGT DAILY [facility] Last Admin: 07/11/20 11:06 Dose: 1 mg Documented by: Heparin Sodium (Porcine) (Heparin -) 5,000 unit SQ TID [facility] Last Admin: 07/11/20 07:07 Dose: 5,000 unit Documented by: Piperacillin Sod/Tazobactam (Sod 3.375 gm/ Dextrose) 50 mls @ 100 mls/hr IVPB Q8H-IV [facility]; Protocol Last Admin: 07/11/20 11:06 Dose: 100 mls/hr Documented by: Dextrose/Sodium Chloride (D5-Ns -) 1,000 mls @ 30 mls/hr IV [facility] Last Admin: 07/10/20 18:24 Dose: 30 mls/hr Documented by: Vasopressin 40 units/ Sodium (Chloride) 100 mls @ 5 mls/hr IVPB [facility]; Protocol Last Admin: 07/11/20 07:08 Dose: 2 units/hr, 5 mls/hr Documented by: Midazolam HCl 100 mg/ Sodium (Chloride) 100 mls @ 1 mls/hr IVPB TITR [facility]; Protocol Last Admin: 07/11/20 07:12 Dose: 7 mg/hr, 7 mls/hr Documented by: Multivitamins/Minerals (Certavite-Antioxidant Liquid) 15 ml NGT DAILY [facility] Last Admin: 07/11/20 11:08 Dose: 15 ml Documented by: Potassium Phos/Sodium Phos (Phos-Nak Packet -) 1 packet PO TID [facility] Last Admin: 07/11/20 07:08 Dose: 1 packet Documented by: ASSESSMENT AND PLAN: Acute Hypoxic Respiratory Failure Pneumonia likely Aspiration UTI Sepsis Hyponatremia Small Bowel Obstruction Alcohol/Heroin Abuse Anemia Failure to Thrive Severe Protein Calorie Malnutrition Refeeding Syndrome - replete lytes - monitor BMP closely - continue antibiotics - titrate pressors to maintain MAP >65 - titrate O2 to keep SpO2 >90% - sedate for vent synchrony - continue volume assist control - slowly increase enteral feeds - DVT prophylaxis - continue ICU monitoring critical care time spent in reviewing chart, evaluating patient and formulating plan 35 min
--- NOTE | 2020-07-11 13:42 | PN ---
Progress Note, Physician History of Present Illness: patient continues to be intubated on pressors - Current Medication List Current Medications: Active Medications Albuterol/Ipratropium (Duoneb -) 1 amp NEB Q6H PRN PRN Reason: SHORTNESS OF BREATH Last Admin: 07/07/20 22:03 Dose: 1 amp Documented by: Amino Acids (Prosource No Carb Liquid Pkt) 30 ml PO BID@0800,1730 [facility] Banana Based Medical Food (Banatrol Plus Powder Packet) 1 packet GT TID [facility] Last Admin: 07/11/20 07:07 Dose: 1 packet Documented by: Dextrose (D50w (Vial) -) 12.5 gm IVPUSH PRN PRN PRN Reason: HYPOGLYCEMIA Last Admin: 07/08/20 07:38 Dose: 12.5 gm Documented by: Folic Acid (Folic Acid -) 1 mg NGT DAILY [facility] Last Admin: 07/11/20 11:06 Dose: 1 mg Documented by: Heparin Sodium (Porcine) (Heparin -) 5,000 unit SQ TID [facility] Last Admin: 07/11/20 07:07 Dose: 5,000 unit Documented by: Piperacillin Sod/Tazobactam (Sod 3.375 gm/ Dextrose) 50 mls @ 100 mls/hr IVPB Q8H-IV [facility]; Protocol Last Admin: 07/11/20 11:06 Dose: 100 mls/hr Documented by: Dextrose/Sodium Chloride (D5-Ns -) 1,000 mls @ 30 mls/hr IV [facility]IR [facility] Last Admin: 07/10/20 18:24 Dose: 30 mls/hr Documented by: Vasopressin 40 units/ Sodium (Chloride) 100 mls @ 5 mls/hr IVPB [facility]; Protocol Last Admin: 07/11/20 07:08 Dose: 2 units/hr, 5 mls/hr Documented by: Midazolam HCl 100 mg/ Sodium (Chloride) 100 mls @ 1 mls/hr IVPB TITR [facility]; Protocol Last Admin: 07/11/20 07:12 Dose: 7 mg/hr, 7 mls/hr Documented by: Multivitamins/Minerals (Certavite-Antioxidant Liquid) 15 ml NGT DAILY [facility] Last Admin: 07/11/20 11:08 Dose: 15 ml Documented by: Potassium Phos/Sodium Phos (Phos-Nak Packet -) 1 packet PO TID [facility] Last Admin: 07/11/20 07:08 Dose: 1 packet Documented by: Thiamine HCl (Vitamin B1 Injection -) 100 mg IVPB DAILY [facility] - Objective Vital Signs: Vital Signs Temperature 96.6 F L 07/11/20 12:00 Pulse Rate 66 07/11/20 12:00 Respiratory Rate 15 07/11/20 12:28 Blood Pressure 92/63 07/11/20 12:00 O2 Sat by Pulse Oximetry (%) 100 07/11/20 12:28 Constitutional: Yes: Other Cardiovascular: Yes: S1, S2 Respiratory: Yes: Intubated, Mechanically Ventilated Musculoskeletal: Yes: WNL Extremities: Yes: WNL Labs: CBC, BMP 07/11/20 05:15 07/11/20 05:15 INR, PTT INR 2.08 (0.83-1.09) H 07/06/20 08:05 - ....Imaging Chest X-ray: Report Reviewed, Image Reviewed Assessment/Plan Pneumonia likely Aspiration UTI Sepsis Hyponatremia SBO resolving Alcohol/Heroin Abuse Anemia Failure to Thrive Severe Protein Calorie Malnutrition uti plan continue current mgmt abx nutrition rest as per icu monitor wbc wbc has increased cc 36 min
[2020-07-11] MEDS ORDERED: CALCIUM GLUCONATE 10% - 1,000 MG/10 ML VIAL IVPB ONE (14:35)
[2020-07-11] MEDS: THIAMINE HCL 200 MG/2 ML VIAL IVPB SCH (15:09)
[2020-07-11] MEDS: DEXTROSE 5%-NORMAL SALINE 1,000 ML IV SCH (15:12)
--- NOTE | 2020-07-11 18:21 | PN ---
Progress Note, Physician History of Present Illness: Pt seen and examined at bedside. She remains intubated. - Current Medication List Current Medications: Active Medications Albuterol/Ipratropium (Duoneb -) 1 amp NEB Q6H PRN PRN Reason: SHORTNESS OF BREATH Last Admin: 07/07/20 22:03 Dose: 1 amp Documented by: Amino Acids (Prosource No Carb Liquid Pkt) 30 ml PO BID@0800,1730 [facility] Banana Based Medical Food (Banatrol Plus Powder Packet) 1 packet GT TID [facility] Last Admin: 07/11/20 15:16 Dose: 1 packet Documented by: Dextrose (D50w (Vial) -) 12.5 gm IVPUSH PRN PRN PRN Reason: HYPOGLYCEMIA Last Admin: 07/08/20 07:38 Dose: 12.5 gm Documented by: Folic Acid (Folic Acid -) 1 mg NGT DAILY [facility] Last Admin: 07/11/20 11:06 Dose: 1 mg Documented by: Heparin Sodium (Porcine) (Heparin -) 5,000 unit SQ TID [facility] Last Admin: 07/11/20 15:10 Dose: 5,000 unit Documented by: Piperacillin Sod/Tazobactam (Sod 3.375 gm/ Dextrose) 50 mls @ 100 mls/hr IVPB Q8H-IV [facility]; Protocol Last Admin: 07/11/20 11:06 Dose: 100 mls/hr Documented by: Dextrose/Sodium Chloride (D5-Ns -) 1,000 mls @ 30 mls/hr IV [facility] Last Admin: 07/11/20 15:12 Dose: 30 mls/hr Documented by: Vasopressin 40 units/ Sodium (Chloride) 100 mls @ 5 mls/hr IVPB [facility]; Protocol Last Admin: 07/11/20 07:08 Dose: 2 units/hr, 5 mls/hr Documented by: Midazolam HCl 100 mg/ Sodium (Chloride) 100 mls @ 1 mls/hr IVPB TITR [facility]; Protocol Last Admin: 07/11/20 07:12 Dose: 7 mg/hr, 7 mls/hr Documented by: Multivitamins/Minerals (Certavite-Antioxidant Liquid) 15 ml NGT DAILY [facility] Last Admin: 07/11/20 11:08 Dose: 15 ml Documented by: Potassium Phos/Sodium Phos (Phos-Nak Packet -) 1 packet PO TID [facility] Last Admin: 07/11/20 15:07 Dose: 1 packet Documented by: Thiamine HCl (Vitamin B1 Injection -) 100 mg IVPB DAILY [facility] Last Admin: 07/11/20 15:09 Dose: 100 mg Documented by: - Objective Vital Signs: Vital Signs Temperature 98.6 F 07/11/20 16:00 Pulse Rate 84 07/11/20 16:00 Respiratory Rate 17 07/11/20 16:39 Blood Pressure 87/61 L 07/11/20 16:00 O2 Sat by Pulse Oximetry (%) 99 07/11/20 16:39 Constitutional: Yes: Cachectic Eyes: Yes: Conjunctiva Clear HENT: Yes: Atraumatic Neck: Yes: Supple Cardiovascular: Yes: S1, S2 Respiratory: Yes: Mechanically Ventilated Gastrointestinal: Yes: Soft Genitourinary: Yes: Uribe Present Musculoskeletal: Yes: Muscle Weakness Edema: Yes Edema: LLE: 1+, RLE: 1+ Neurological: Yes: Lethargy Labs: CBC, BMP 07/11/20 05:15 07/11/20 05:15 INR, PTT INR 2.08 (0.83-1.09) H 07/06/20 08:05 Problem List - Problems (1) Hypoglycemia Code(s): E16.2 - HYPOGLYCEMIA, UNSPECIFIED (2) Sepsis Code(s): A41.9 - SEPSIS, UNSPECIFIED ORGANISM Qualifiers: Sepsis type: sepsis due to unspecified organism Sepsis acute organ dy sfunction status: unspecified Qualified Code(s): A41.9 - Sepsis, unspecified organism (3) Hypoalbuminemia Code(s): E88.09 - OTH DISORDERS OF PLASMA-PROTEIN METABOLISM, NEC (4) Hyponatremia Code(s): E87.1 - HYPO-OSMOLALITY AND HYPONATREMIA Assessment/Plan Current Medications Generic Name Dose Route Start Last Admin Trade Name Freq PRN Reason Stop Dose Admin Albuterol/Ipratropium 1 amp 07/07/20 19:45 07/07/20 22:03 Duoneb - NEB 1 amp Q6H PRN Administration SHORTNESS OF BREATH Amino Acids 30 ml 07/11/20 17:30 Prosource No Carb Liquid Pkt PO BID@0800,1730 [facility] Banana Based Medical Food 1 packet 07/10/20 22:00 07/11/20 15:16 Banatrol Plus Powder Packet GT 1 packet TID [facility] Administration Dextrose 12.5 gm 07/08/20 07:08 07/08/20 07:38 D50w (Vial) - IVPUSH 12.5 gm PRN PRN Administration HYPOGLYCEMIA Folic Acid 1 mg 07/06/20 10:00 07/11/20 11:06 Folic Acid - NGT 1 mg DAILY [facility] Administration Heparin Sodium (Porcine) 5,000 unit 07/10/20 22:00 07/11/20 15:10 Heparin - SQ 5,000 unit TID [facility] Administration Piperacillin Sod/Tazobactam 50 mls @ 100 mls/hr 07/02/20 18:00 07/11/20 11:06 Sod 3.375 gm/ Dextrose IVPB 100 mls/hr Q8H-IV [facility] Administration Protocol Dextrose/Sodium Chloride 1,000 mls @ 30 mls/hr 07/05/20 13:30 07/11/20 15:12 D5-Ns - IV 30 mls/hr ASDIR [facility] Administration Vasopressin 40 units/ Sodium 100 mls @ 5 mls/hr 07/08/20 07:00 07/11/20 07:08 Chloride IVPB 2 units/hr ASDIR [facility] 5 mls/hr Administration Protocol 2 UNITS/HR Midazolam HCl 100 mg/ Sodium 100 mls @ 1 mls/hr 07/08/20 07:15 07/11/20 07:12 Chloride IVPB 7 mg/hr TITR [facility] 7 mls/hr Administration Protocol 1 MG/HR Multivitamins/Minerals 15 ml 07/06/20 11:45 07/11/20 11:08 Certavite-Antioxidant Liquid NGT 15 ml DAILY [facility] Administration Potassium Phos/Sodium Phos 1 packet 07/09/20 14:00 07/11/20 15:07 Phos-Nak Packet - PO 1 packet TID [facility] Administration Thiamine HCl 100 mg 07/11/20 12:45 07/11/20 15:09 Vitamin B1 Injection - IVPB 100 mg DAILY [facility] Administration Impression 1. azotemia 2. hyponatremia 3. hyperkalemia 4. hypotension 5. sepsis 6. sbo 7. uti 8. liver cirrhosis 9. hypoalbuminemia 10. etoh abuse 11. substance abuse 12. psoriasis 13. acute resp failure 14. malnutrition Plan - cont feeds - titrate as tolerated - replace lytes - d/c d5ns if glucose stable - cont vent support - monitor lytes
--- NOTE | 2020-07-11 18:36 | PN ---
Physical Exam: SUBJECTIVE: Patient seen and examined intubated and sedated. OBJECTIVE: GENERAL: Intubated and sedated HEAD: No signs of trauma, normocephalic, atraumatic EYES: PERRLA, EOMI, sclera anicteric, conjunctiva clear ENT: Auricles normal inspection, nares patent NECK: Normal ROM, supple, no lymphadenopathy, JVD, or masses LUNGS: dec breath sounds at bilateral bases HEART: Regular rate and rhythm, normal S1 and S2, no murmurs, rubs or gallops, peripheral pulses normal and equal bilaterally. abdomen: soft EXTREMITIES : cachectic and weeping with bilateral pitting edema in upper and lower ext improved from yesterday NEUROLOGICAL: Pt fully sedated SKIN:Cachectic Vital Signs Period Temp Pulse Resp BP Sys/Campbell Pulse Ox Last 24 Hr 93.9 F-98.6 F 50-84 15-28 87-100/61-73 96-100 Laboratory Results - last 24 hr 07/10/20 07/11/20 07/11/20 23:24 03:34 05:15 WBC 12.8 H RBC 3.17 L Hgb 9.4 L Hct 27.2 L MCV 86.0 MCH 29.7 MCHC 34.5 RDW 14.4 Plt Count 80 L D MPV 10.2 Absolute Neuts (auto) 11.5 H Neutrophils % 90.0 H Lymphocytes % 6.6 L D Monocytes % 3.1 L Eosinophils % 0.1 Basophils % 0.2 Nucleated RBC % 0 Sodium Potassium Chloride Carbon Dioxide Anion Gap BUN Creatinine Est GFR (CKD-EPI)AfAm Est GFR (CKD-EPI)NonAf POC Glucometer 112 145 Random Glucose Calcium Phosphorus Magnesium Total Bilirubin AST ALT Alkaline Phosphatase Total Protein Albumin 07/11/20 07/11/20 07/11/20 05:15 07:10 13:05 WBC RBC Hgb Hct MCV MCH MCHC RDW Plt Count MPV Absolute Neuts (auto) Neutrophils % Lymphocytes % Monocytes % Eosinophils % Basophils % Nucleated RBC % Sodium 133 L Potassium 3.4 L Chloride 106 Carbon Dioxide 20 L Anion Gap 8 BUN 23.3 H Creatinine 0.2 L Est GFR (CKD-EPI)AfAm 197.84 Est GFR (CKD-EPI)NonAf 170.70 POC Glucometer 122 115 Random Glucose 125 H Calcium 5.9 L* Phosphorus 2.2 L Magnesium 1.5 L Total Bilirubin 1.1 H AST 55 H ALT 185 H Alkaline Phosphatase 510 H Total Protein 4.2 L Albumin 1.1 L 07/11/20 17:56 WBC RBC Hgb Hct MCV MCH MCHC RDW Plt Count MPV Absolute Neuts (auto) Neutrophils % Lymphocytes % Monocytes % Eosinophils % Basophils % Nucleated RBC % Sodium Potassium Chloride Carbon Dioxide Anion Gap BUN Creatinine Est GFR (CKD-EPI)AfAm Est GFR (CKD-EPI)NonAf POC Glucometer 109 Random Glucose Calcium Phosphorus Magnesium Total Bilirubin AST ALT Alkaline Phosphatase Total Protein Albumin Active Medications Generic Name Dose Route Start Last Admin Trade Name Freq PRN Reason Stop Dose Admin Albuterol/Ipratropium 1 amp 07/07/20 19:45 07/07/20 22:03 Duoneb - NEB 1 amp Q6H PRN Administration SHORTNESS OF BREATH Amino Acids 30 ml 07/11/20 17:30 Prosource No Carb Liquid Pkt PO BID@0800,1730 [facility] Banana Based Medical Food 1 packet 07/10/20 22:00 07/11/20 15:16 Banatrol Plus Powder Packet GT 1 packet TID [facility] Administration Dextrose 12.5 gm 07/08/20 07:08 07/08/20 07:38 D50w (Vial) - IVPUSH 12.5 gm PRN PRN Administration HYPOGLYCEMIA Folic Acid 1 mg 07/06/20 10:00 07/11/20 11:06 Folic Acid - NGT 1 mg DAILY [facility] Administration Heparin Sodium (Porcine) 5,000 unit 07/10/20 22:00 07/11/20 15:10 Heparin - SQ 5,000 unit TID [facility] Administration Piperacillin Sod/Tazobactam 50 mls @ 100 mls/hr 07/02/20 18:00 07/11/20 11:06 Sod 3.375 gm/ Dextrose IVPB 100 mls/hr Q8H-IV [facility] Administration Protocol Dextrose/Sodium Chloride 1,000 mls @ 30 mls/hr 07/05/20 13:30 07/11/20 15:12 D5-Ns - IV 30 mls/hr ASDIR [facility] Administration Vasopressin 40 units/ Sodium 100 mls @ 5 mls/hr 07/08/20 07:00 07/11/20 07:08 Chloride IVPB 2 units/hr ASDIR [facility] 5 mls/hr Administration Protocol 2 UNITS/HR Midazolam HCl 100 mg/ Sodium 100 mls @ 1 mls/hr 07/08/20 07:15 07/11/20 07:12 Chloride IVPB 7 mg/hr TITR [facility] 7 mls/hr Administration Protocol 1 MG/HR Multivitamins/Minerals 15 ml 07/06/20 11:45 07/11/20 11:08 Certavite-Antioxidant Liquid NGT 15 ml DAILY [facility] Administration Potassium Phos/Sodium Phos 1 packet 07/09/20 14:00 07/11/20 15:07 Phos-Nak Packet - PO 1 packet TID [facility] Administration Thiamine HCl 100 mg 07/11/20 12:45 07/11/20 15:09 Vitamin B1 Injection - IVPB 100 mg DAILY [facility] Administration ASSESSMENT/PLAN: 34 yo female coming in to ICU due to possible sepsis due to UTI and PNA, Refeeding syndrome, and SBO Neuro - Altered Mental Status- Most likely due to hypoglycemia. - Pt now intubated and sedated on midazolam. D/c fentanyl due to SBO. Started Morphine Prn due to pain. Cardiac - HTN- will hold bp meds - Monitoring BP keep >65. - on 2 of vasopressin Resp - pt has history of asthma- will give albuterol if pt has asthma - Pt was tachypnic and having trouble breathing so was intubated 07/04 now saturating at 100% - pts vent settings RR 15, Vt: 350 FiO2: 50% PEEP 5. GI - SBO - Appreciate Surgery consult - Will do NG tube PRN - WIll keep pt NPO and give IV hydration - CT of abd/pelvis with oral contrast- SBO with moderate improvement will continue to monitor Xrays - xray 07/06- shows moderate improvement of SBO - Appreciate GI consult - pt having massive diarrhea so added banana flakes to diet and pt diarrhea has improved slightly - repeat labs improved - Repleted K phos, mg, and calcium--> Monitor e-lyes closely & replete prn --> keep K>4, Mg>2, PO4 > 3.5. - 07/11 pts electrolytes K low repleted, Phos low repleted, Mg low repleted, Ca low repleted - monitor lytes closely Heme - Pt hemoglobin 9.4 will cont to monitor - will continue to monitor - Pt has postive FOBT ID - Sepsis secondary UTI vs Right sided PNA - Treating via zosyn - ID consult appreciated - WBC has risen to 12 from 5 48 hours prior. Pt still has low temperatures requiring warming blanket. Will pat culture. Endocrine - Hypoglycemia vs refeeding syndrome - Nutirition consult appreciated who states keep daily glucose under 150gm a day - pt keeps going hypoglycemic will monitor q2hr and give more glucose if hypoglycemic and symptomatic (give only half of D25) - vital 1.2 now at 20cc Pt has increased diarrhea possibly due to increased feeds. Goal rate 42. FEN - monitor electrolytes including phosphate and magnesium possible refeeding syndrome Lines - central line in [facility] 07/10 PPx - DVT- heparin 5000 units per TID - Protonix held due to hypomagnesmia Visit type - Emergency Visit Emergency Visit: Yes ED Registration Date: 07/01/20 Care time: The patient presented to the Emergency Department on the above date and was hospitalized for further evaluation of their emergent condition. - New Patient This patient is new to me today: No - Critical Care Critical Care patient: Yes Total Critical Care Time (in minutes): 36 Critical Care Statement: The care of this patient involved high complexity decision making to prevent further life threatening deterioration of the patient's condition and/or to evaluate & treat vital organ system(s) failure or risk of failure. ATTENDING PHYSICIAN STATEMENT I saw and evaluated the patient. I reviewed the resident's note and discussed the case with the resident. I agree with the resident's findings and plan as documented. SUBJECTIVE: OBJECTIVE: ASSESSMENT AND PLAN:
[2020-07-11] MEDS ORDERED: CALCIUM GLUCONATE 10% - 1,000 MG/10 ML VIAL ONE (18:37)
[2020-07-11] MEDS: AMINO ACIDS/PROTEIN HYDROLYS 30 ML LIQUID.PKT PO SCH (18:42)
--- NOTE | 2020-07-11 21:37 | PN ---
Progress Note, Physician - Current Medication List Current Medications: Active Medications Albuterol/Ipratropium (Duoneb -) 1 amp NEB Q6H PRN PRN Reason: SHORTNESS OF BREATH Last Admin: 07/07/20 22:03 Dose: 1 amp Documented by: Amino Acids (Prosource No Carb Liquid Pkt) 30 ml PO BID@0800,1730 [facility] Last Admin: 07/11/20 18:42 Dose: 30 ml Documented by: Banana Based Medical Food (Banatrol Plus Powder Packet) 1 packet GT TID RAUL Last Admin: 07/11/20 15:16 Dose: 1 packet Documented by: Dextrose (D50w (Vial) -) 12.5 gm IVPUSH PRN PRN PRN Reason: HYPOGLYCEMIA Last Admin: 07/08/20 07:38 Dose: 12.5 gm Documented by: Folic Acid (Folic Acid -) 1 mg NGT DAILY [facility] Last Admin: 07/11/20 11:06 Dose: 1 mg Documented by: Heparin Sodium (Porcine) (Heparin -) 5,000 unit SQ TID RAUL Last Admin: 07/11/20 15:10 Dose: 5,000 unit Documented by: Piperacillin Sod/Tazobactam (Sod 3.375 gm/ Dextrose) 50 mls @ 100 mls/hr IVPB Q8H-IV RAUL; Protocol Last Admin: 07/11/20 18:40 Dose: 100 mls/hr Documented by: Dextrose/Sodium Chloride (D5-Ns -) 1,000 mls @ 30 mls/hr IV ASDIR RAUL Last Admin: 07/11/20 15:12 Dose: 30 mls/hr Documented by: Vasopressin 40 units/ Sodium (Chloride) 100 mls @ 5 mls/hr IVPB ASDIR RAUL; Protocol Last Admin: 07/11/20 07:08 Dose: 2 units/hr, 5 mls/hr Documented by: Midazolam HCl 100 mg/ Sodium (Chloride) 100 mls @ 1 mls/hr IVPB TITR RAUL; Protocol Last Admin: 07/11/20 20:25 Dose: 7 mg/hr, 7 mls/hr Documented by: Multivitamins/Minerals (Certavite-Antioxidant Liquid) 15 ml NGT DAILY [facility] Last Admin: 07/11/20 11:08 Dose: 15 ml Documented by: Potassium Phos/Sodium Phos (Phos-Nak Packet -) 1 packet PO TID [facility] Last Admin: 07/11/20 15:07 Dose: 1 packet Documented by: Thiamine HCl (Vitamin B1 Injection -) 100 mg IVPB DAILY [facility] Last Admin: 07/11/20 15:09 Dose: 100 mg Documented by: - Objective Vital Signs: Vital Signs Temperature 97.2 F L 07/11/20 20:00 Pulse Rate 90 07/11/20 20:00 Respiratory Rate 21 H 07/11/20 20:35 Blood Pressure 96/67 07/11/20 20:00 O2 Sat by Pulse Oximetry (%) 100 07/11/20 20:35 Labs: CBC, BMP 07/11/20 05:15 07/11/20 05:15 INR, PTT INR 2.08 (0.83-1.09) H 07/06/20 08:05 <Agnes Modi - Last Filed: 07/11/20 21:37> History of Present Illness: continues to be intubated failure to thrive - Current Medication List Current Medications: Active Medications Banana Based Medical Food (Banatrol Plus Powder Packet) 1 packet GT TID [facility] Last Admin: 07/16/20 13:34 Dose: 1 packet Documented by: Dextrose (D50w (Vial) -) 12.5 gm IVPUSH PRN PRN PRN Reason: HYPOGLYCEMIA Last Admin: 07/08/20 07:38 Dose: 12.5 gm Documented by: Folic Acid (Folic Acid -) 1 mg NGT DAILY [facility] Last Admin: 07/16/20 09:20 Dose: 1 mg Documented by: Furosemide (Lasix Injection -) 40 mg IVPUSH ONCE ONE Stop: 07/16/20 14:31 Last Admin: 07/16/20 13:34 Dose: 40 mg Documented by: Heparin Sodium (Porcine) (Heparin -) 5,000 unit SQ TID [facility] Last Admin: 07/16/20 13:34 Dose: 5,000 unit Documented by: Piperacillin Sod/Tazobactam (Sod 3.375 gm/ Dextrose) 50 mls @ 100 mls/hr IVPB Q8H-IV RAUL; Protocol Last Admin: 07/16/20 09:20 Dose: 100 mls/hr Documented by: Vasopressin 40 units/ Sodium (Chloride) 100 mls @ 5 mls/hr IVPB ASDIR [facility]; Protocol Last Titration: 07/16/20 11:30 Dose: 3 units/hr, 7.5 mls/hr Documented by: Dextrose/Lactated Ringer's (D5-Lr+20 Meq Kcl -) 20 meq in 1,000 mls @ 30 mls/hr IV ASDIR [facility] Last Admin: 07/15/20 23:30 Dose: Not Given Documented by: Midazolam HCl (Midazolam 100mg/100ml-0.9%Nacl) 100 mg in 100 mls @ 1 mls/hr IVP B TITR [facility]; Protocol Last Titration: 07/16/20 10:30 Dose: 0 mg/hr, 0 mls/hr Documented by: Morphine Sulfate (Morphine Sulfate) 1 mg IVPUSH Q6H PRN PRN Reason: PAIN LEVEL 6-10 Multivitamins/Minerals (Certavite-Antioxidant Liquid) 15 ml NGT DAILY [facility] Last Admin: 07/16/20 09:19 Dose: 15 ml Documented by: Potassium Phos/Sodium Phos (Phos-Nak Packet -) 1 packet PO TID [facility] Last Admin: 07/16/20 13:34 Dose: 1 packet Documented by: Thiamine HCl (Vitamin B1 Injection -) 100 mg IVPB DAILY [facility] Last Admin: 07/16/20 09:20 Dose: 100 mg Documented by: - Objective Vital Signs: Vital Signs Temperature 98.4 F 07/16/20 12:40 Pulse Rate 118 H 07/16/20 14:25 Respiratory Rate 16 07/16/20 14:25 Blood Pressure 92/80 07/16/20 14:25 O2 Sat by Pulse Oximetry (%) 99 07/16/20 11:33 Constitutional: Yes: Other (failure to thrive) Cardiovascular: Yes: S1, S2 Respiratory: Yes: Intubated, Mechanically Ventilated Gastrointestinal: Yes: Normal Bowel Sounds, Soft Musculoskeletal: Yes: WNL Extremities: Yes: WNL Labs: CBC, BMP 07/16/20 05:30 07/16/20 06:00 INR, PTT INR 2.08 (0.83-1.09) H 07/06/20 08:05 <Brock Martines M - Last Filed: 07/16/20 14:31> Problem List - Problems (1) Respiratory failure Code(s): J96.90 - RESPIRATORY FAILURE, UNSP, UNSP W HYPOXIA OR HYPERCAPNIA (2) Sepsis Code(s): A41.9 - SEPSIS, UNSPECIFIED ORGANISM Qualifiers: Sepsis type: sepsis due to unspecified organism Sepsis acute organ dysfunction status: unspecified Qualified Code(s): A41.9 - Sepsis, unspecified organism (3) At risk for electrolyte imbalance Code(s): Z91.89 - OT PERSONAL RISK FACTORS, NOT ELSEWHERE CLASSIFIED (4) SBO (small bowel obstruction) Code(s): K56.609 - UNSP INTESTNL OBST, UNSP TO PARTIAL VERSUS COMPLETE OBST (5) Liver cirrhosis, alcoholic Code(s): K70.30 - ALCOHOLIC CIRRHOSIS OF LIVER WITHOUT ASCITES (6) Hypoalbuminemia Code(s): E88.09 - OTH DISORDERS OF PLASMA-PROTEIN METABOLISM, NEC (7) Substance abuse Code(s): F19.10 - OTHER PSYCHOACTIVE SUBSTANCE ABUSE, UNCOMPLICATED (8) Cachexia Code(s): R64 - CACHEXIA <Agnes Modi - Last Filed: 07/11/20 21:37>
[2020-07-12] MEDS ORDERED: PIPERACILLIN/TAZOBACTAM 3.375 GM VIAL IVPB ONE ×3 (01:10→14:50)
[2020-07-12] MEDS ORDERED: DEXTROSE 5%-WATER - 50 ML IVPB ONE ×3 (01:10→14:50)
[2020-07-12] MEDS: PIPERACILLIN/TAZOB 3.375 GM 3.375 GM in DEXTROSE 5%-WATER - 50 ML IVPB SCH ×3 (01:33→17:02)
[2020-07-12] MEDS: HEPARIN NA (PORCINE) 5,000 UNITS/ML 1ML VIAL SQ SCH ×3 (06:20→22:32)
[2020-07-12] MEDS: BANATROL PLUS POWDER PACKET GT SCH ×3 (06:20→22:32)
[2020-07-12] MEDS: NAPH,MB-DB/K PH,MBDB POWDER PACKET PO SCH ×3 (06:20→22:32)
[2020-07-12] MEDS: VASOPRESSIN 40 UNITS in SODIUM CHLORIDE 98 ML IVPB SCH ×2 (06:20→23:35)
[2020-07-12 06:53] LABS: BASO % 0.1 % (0-2.0); HEMATOCRIT 25.6 % (32.4-45.2); HEMOGLOBIN 8.7 GM/dL (10.7-15.3); LYMPH % 7.5 % (8-40); MCH 29.4 pg (25.7-33.7); MCHC 33.8 g/dl (32.0-36.0); MEAN CELL VOLUME 86.8 fl (80-96); MEAN PLT VOLUME 8.9 fl (7.5-11.1); MONO % 2.9 % (3.8-10.2); NEUT % 89.5 % (42.8-82.8); PLATELET COUNT 84 K/MM3 (134-434); RBC 2.95 M/mm3 (3.60-5.2); RDW 14.6 % (11.6-15.6); WHITE BLOOD COUNT 12.1 K/mm3 (4.0-10.0)
[2020-07-12 07:23] LABS: BILIRUBIN,TOTAL 0.8 mg/dL (0.2-1); BLOOD UREA NITROGEN 21.3 mg/dL (7-18); CREATININE 0.2 mg/dL (0.55-1.3); MAGNESIUM 1.6 mg/dL (1.8-2.4); PHOSPHOROUS 2.1 mg/dL (2.5-4.9); POTASSIUM 3.3 mmol/L (3.5-5.1); TOT PROT 4.2 g/dl (6.4-8.2)
[2020-07-12 07:38] LABS: CALCIUM 6.2 mg/dL (8.5-10.1)
[2020-07-12] MEDS ORDERED: PT OWN MED DRAWER 7, Y5N ONE ×4 (08:12→16:22)
[2020-07-12] MEDS: AMINO ACIDS/PROTEIN HYDROLYS 30 ML LIQUID.PKT PO SCH ×2 (08:14→16:55)
[2020-07-12] MEDS ORDERED: MAGNESIUM 2GM/50ML STERILE WATER IVPB IVPB ONE (08:25)
[2020-07-12] MEDS: KCL 10 MEQ IVPB 10 MEQ/100 ML INFUS.BAG IVPB SCH ×3 (09:08→09:21)
[2020-07-12] MEDS: FOLIC ACID 1 MG TABLET (FP) NGT SCH (09:09)
[2020-07-12] MEDS: THIAMINE HCL 200 MG/2 ML VIAL IVPB SCH (09:10)
[2020-07-12] MEDS: MULTIVIT-MINERALS ORAL LIQUID NGT SCH (09:19)
[2020-07-12] MEDS ORDERED: MIDAZOLAM IN 0.9 % SOD.CHLORID 1 MG/1 ML PLAST..BAG ONE ×2 (09:41→23:22)
[2020-07-12] MEDS: MIDAZOLAM 100 MG in SODIUM CHLORIDE 100 ML IVPB SCH ×2 (09:44→23:35)
--- NOTE | 2020-07-12 09:58 | PN ---
Progress Note, Physician History of Present Illness: continues to be intubated failure to thrive - Current Medication List Current Medications: Active Medications Albuterol/Ipratropium (Duoneb -) 1 amp NEB Q6H PRN PRN Reason: SHORTNESS OF BREATH Last Admin: 07/07/20 22:03 Dose: 1 amp Documented by: Amino Acids (Prosource No Carb Liquid Pkt) 30 ml PO BID@0800,1730 [facility] Last Admin: 07/12/20 08:14 Dose: 30 ml Documented by: Banana Based Medical Food (Banatrol Plus Powder Packet) 1 packet GT TID RAUL Last Admin: 07/12/20 06:20 Dose: 1 packet Documented by: Dextrose (D50w (Vial) -) 12.5 gm IVPUSH PRN PRN PRN Reason: HYPOGLYCEMIA Last Admin: 07/08/20 07:38 Dose: 12.5 gm Documented by: Folic Acid (Folic Acid -) 1 mg NGT DAILY [facility] Last Admin: 07/12/20 09:09 Dose: 1 mg Documented by: Heparin Sodium (Porcine) (Heparin -) 5,000 unit SQ TID RAUL Last Admin: 07/12/20 06:20 Dose: 5,000 unit Documented by: Piperacillin Sod/Tazobactam (Sod 3.375 gm/ Dextrose) 50 mls @ 100 mls/hr IVPB Q8H-IV RAUL; Protocol Last Admin: 07/12/20 09:09 Dose: 100 mls/hr Documented by: Dextrose/Sodium Chloride (D5-Ns -) 1,000 mls @ 30 mls/hr IV ASDIR RAUL Last Admin: 07/11/20 15:12 Dose: 30 mls/hr Documented by: Vasopressin 40 units/ Sodium (Chloride) 100 mls @ 5 mls/hr IVPB ASDIR RAUL; Protocol Last Admin: 07/12/20 06:20 Dose: 2 units/hr, 5 mls/hr Documented by: Midazolam HCl 100 mg/ Sodium (Chloride) 100 mls @ 1 mls/hr IVPB TITR RAUL; Protocol Last Admin: 07/12/20 09:44 Dose: 7 mg/hr, 7 mls/hr Documented by: Potassium Chloride (Potassium Chloride 10 Meq Premix Ivpb -) 10 meq in 100 mls @ 100 mls/hr IVPB Q60M [facility] Stop: 07/12/20 11:14 Last Admin: 07/12/20 09:21 Dose: 100 mls/hr Documented by: Multivitamins/Minerals (Certavite-Antioxidant Liquid) 15 ml NGT DAILY [facility] Last Admin: 07/12/20 09:19 Dose: 15 ml Documented by: Potassium Phos/Sodium Phos (Phos-Nak Packet -) 1 packet PO TID [facility] Last Admin: 07/12/20 06:20 Dose: 1 packet Documented by: Thiamine HCl (Vitamin B1 Injection -) 100 mg IVPB DAILY [facility] Last Admin: 07/12/20 09:10 Dose: 100 mg Documented by: - Objective Vital Signs: Vital Signs Temperature 96.7 F L 07/12/20 08:00 Pulse Rate 76 07/12/20 08:21 Respiratory Rate 18 07/12/20 08:30 Blood Pressure 83/75 L 07/12/20 08:00 O2 Sat by Pulse Oximetry (%) 100 07/12/20 08:30 Constitutional: Yes: Other (failure to thrive) Cardiovascular: Yes: S1, S2 Respiratory: Yes: Regular, CTA Bilaterally Gastrointestinal: Yes: Soft Musculoskeletal: Yes: WNL Extremities: Yes: WNL Labs: CBC, BMP 07/12/20 05:30 07/12/20 05:30 INR, PTT INR 2.08 (0.83-1.09) H 07/06/20 08:05 - ....Imaging Chest X-ray: Report Reviewed, Image Reviewed Assessment/Plan Pneumonia likely Aspiration UTI Sepsis Hyponatremia SBO resolving Alcohol/Heroin Abuse Anemia Failure to Thrive Severe Protein Calorie Malnutrition uti plan continue current mgmt abx nutrition rest as per icu monitor wbc wbc decreasing cc 36 min
[2020-07-12] MEDS ORDERED: DEXTROSE 5%-LACTATED RINGERS 1,000 ML IV SCH (12:30)
[2020-07-12] MEDS ORDERED: MORPHINE SULFATE 2 MG/ML VIAL IVPUSH PRN (13:16)
--- NOTE | 2020-07-12 13:51 | PN ---
Physical Exam: SUBJECTIVE: Patient seen and examined intubated and complying to commands. OBJECTIVE: GENERAL: Intubated and sedated HEAD: No signs of trauma, normocephalic, atraumatic EYES: PERRLA, EOMI, sclera anicteric, conjunctiva clear ENT: Auricles normal inspection, nares patent NECK: Normal ROM, supple, no lymphadenopathy, JVD, or masses LUNGS: dec breath sounds at bilateral bases HEART: Regular rate and rhythm, normal S1 and S2, no murmurs, rubs or gallops, peripheral pulses normal and equal bilaterally. abdomen: soft EXTREMITIES : cachectic and weeping with bilateral pitting edema in upper and lower ext improved from yesterday NEUROLOGICAL: Pt able to comply to commands SKIN:Cachectic Vital Signs Period Temp Pulse Resp BP Sys/Campbell Pulse Ox Last 24 Hr 95 F-955 F 64-91 15-24 83-96/60-77 96-100 Laboratory Results - last 24 hr 07/11/20 07/11/20 07/12/20 17:56 22:17 02:21 WBC RBC Hgb Hct MCV MCH MCHC RDW Plt Count MPV Absolute Neuts (auto) Neutrophils % Lymphocytes % Monocytes % Eosinophils % Basophils % Nucleated RBC % Sodium Potassium Chloride Carbon Dioxide Anion Gap BUN Creatinine Est GFR (CKD-EPI)AfAm Est GFR (CKD-EPI)NonAf POC Glucometer 109 115 70 Random Glucose Calcium Phosphorus Magnesium Total Bilirubin AST ALT Alkaline Phosphatase Total Protein Albumin 07/12/20 07/12/20 07/12/20 05:04 05:30 05:30 WBC 12.1 H RBC 2.95 L Hgb 8.7 L Hct 25.6 L MCV 86.8 MCH 29.4 MCHC 33.8 RDW 14.6 Plt Count 84 L MPV 8.9 D Absolute Neuts (auto) 10.8 H Neutrophils % 89.5 H Lymphocytes % 7.5 L Monocytes % 2.9 L Eosinophils % 0.0 D Basophils % 0.1 Nucleated RBC % 0 Sodium 136 Potassium 3.3 L Chloride 109 H Carbon Dioxide 20 L Anion Gap 8 BUN 21.3 H Creatinine 0.2 L Est GFR (CKD-EPI)AfAm 197.84 Est GFR (CKD-EPI)NonAf 170.70 POC Glucometer 109 Random Glucose 83 Calcium 6.2 L* Phosphorus 2.1 L Magnesium 1.6 L Total Bilirubin 0.8 AST 34 ALT 136 H Alkaline Phosphatase 438 H Total Protein 4.2 L Albumin 1.0 L Active Medications Generic Name Dose Route Start Last Admin Trade Name Ruben PRN Reason Stop Dose Admin Albuterol/Ipratropium 1 amp 07/07/20 19:45 07/07/20 22:03 Duoneb - NEB 1 amp Q6H PRN Administration SHORTNESS OF BREATH Amino Acids 30 ml 07/11/20 17:30 07/12/20 08:14 Prosource No Carb Liquid Pkt PO 30 ml BID@0800,1730 RAUL Administration Banana Based Medical Food 1 packet 07/10/20 22:00 07/12/20 13:01 Banatrol Plus Powder Packet GT 1 packet TID RAUL Administration Dextrose 12.5 gm 07/08/20 07:08 07/08/20 07:38 D50w (Vial) - IVPUSH 12.5 gm PRN PRN Administration HYPOGLYCEMIA Folic Acid 1 mg 07/06/20 10:00 07/12/20 09:09 Folic Acid - NGT 1 mg DAILY RAUL Administration Heparin Sodium (Porcine) 5,000 unit 07/10/20 22:00 07/12/20 13:02 Heparin - SQ 5,000 unit TID RAUL Administration Piperacillin Sod/Tazobactam 50 mls @ 100 mls/hr 07/02/20 18:00 07/12/20 09:09 Sod 3.375 gm/ Dextrose IVPB 100 mls/hr Q8H-IV RAUL Administration Protocol Vasopressin 40 units/ Sodium 100 mls @ 5 mls/hr 07/08/20 07:00 07/12/20 06:20 Chloride IVPB 2 units/hr ASDIR RAUL 5 mls/hr Administration Protocol 2 UNITS/HR Midazolam HCl 100 mg/ Sodium 100 mls @ 1 mls/hr 07/08/20 07:15 07/12/20 09:44 Chloride IVPB 7 mg/hr TITR RAUL 7 mls/hr Administration Protocol 1 MG/HR Dextrose/Lactated Ringer's 1,000 mls @ 30 mls/hr 07/12/20 12:30 07/12/20 12:43 D5-Lr - IV 30 mls/hr ASDIR RAUL Administration Morphine Sulfate 2 mg 07/12/20 13:16 Morphine Sulfate IVPUSH Q6H PRN PAIN LEVEL 7 - 10 Multivitamins/Minerals 15 ml 07/06/20 11:45 07/12/20 09:19 Certavite-Antioxidant Liquid NGT 15 ml DAILY RAUL Administration Potassium Phos/Sodium Phos 1 packet 07/09/20 14:00 07/12/20 13:02 Phos-Nak Packet - PO 1 packet TID RAUL Administration Thiamine HCl 100 mg 07/11/20 12:45 07/12/20 09:10 Vitamin B1 Injection - IVPB 100 mg DAILY RAUL Administration ASSESSMENT/PLAN: 34 yo female coming in to ICU due to possible sepsis due to UTI and PNA, Refeeding syndrome, and SBO Neuro - Altered Mental Status- Most likely due to hypoglycemia. - Pt now intubated and sedated on midazolam. Started Morphine Prn due to pain. Cardiac - HTN- will hold bp meds - Monitoring BP keep >65. - on 2 of vasopressin Resp - pt has history of asthma- will give albuterol if pt has asthma - Pt was tachypnic and having trouble breathing so was intubated 07/04 now saturating at 100% - pts vent settings RR 15, Vt: 350 FiO2: 40% PEEP 5. GI - SBO - Appreciate Surgery consult - Will do NG tube PRN - WIll keep pt NPO and give IV hydration - CT of abd/pelvis with oral contrast- SBO with moderate improvement - xray 07/06- shows moderate improvement of SBO - Appreciate GI consult - pt having massive diarrhea so added banana flakes to diet and pt diarrhea has improved slightly - pt feeds have been advanced to 30 cc/hr under dietary recommendations. - repeat labs improved - Repleted K phos, mg, and calcium--> Monitor e-lyes closely & replete prn --> keep K>4, Mg>2, PO4 > 3.5. - 07/12 pts electrolytes K low repleted, Phos low repleted, Mg low repleted - monitor lytes closely Heme - Pt hemoglobin 9.4 will cont to monitor - will continue to monitor - Pt has postive FOBT ID - Sepsis secondary UTI vs Right sided PNA - Treating via zosyn - ID consult appreciated - WBC has plateaued at 12. Endocrine - Hypoglycemia vs refeeding syndrome - Nutirition consult appreciated who states keep daily glucose under 150gm a day - pt keeps going hypoglycemic will monitor q2hr and give more glucose if hypoglycemic and symptomatic (give only half of D25) - vital 1.2 now at 20cc Pt has increased diarrhea possibly due to increased feeds. Goal rate 42. FEN - monitor electrolytes including phosphate and magnesium possible refeeding syndrome Lines - central line in RIJ 07/10 PPx - DVT- heparin 5000 units per TID - Protonix held due to hypomagnesmia Visit type - Emergency Visit Emergency Visit: Yes ED Registration Date: 07/01/20 Care time: The patient presented to the Emergency Department on the above date and was hospitalized for further evaluation of their emergent condition. - New Patient This patient is new to me today: No - Critical Care Critical Care patient: Yes Total Critical Care Time (in minutes): 36 Critical Care Statement: The care of this patient involved high complexity decision making to prevent further life threatening deterioration of the patient's condition and/or to evaluate & treat vital organ system(s) failure or risk of failure. ATTENDING PHYSICIAN STATEMENT I saw and evaluated the patient. I reviewed the resident's note and discussed the case with the resident. I agree with the resident's findings and plan as documented. SUBJECTIVE: OBJECTIVE: ASSESSMENT AND PLAN:
[2020-07-12] MEDS ORDERED: POTASSIUM PHOSPHATE 30 MM in SODIUM CHLORIDE 250 ML IVPB ONE (14:24)
--- NOTE | 2020-07-12 14:38 | PN ---
Teaching Attending Note Name of Resident: Gio Howard ATTENDING PHYSICIAN STATEMENT I saw and evaluated the patient. I reviewed the resident's note and discussed the case with the resident. I agree with the resident's findings and plan as documented. SUBJECTIVE: Patient seen and examined in the ICU. Remains intubated and sedated. AC Mode of vent. PPlat : 10 2 units of Vasopressin for hemodynamic support. Intake & Output 07/09/20 07/10/20 07/11/20 07/12/20 23:59 23:59 23:59 23:59 Intake Total 1858 2476 2398 974 Output Total 100 650 630 75 Balance 1758 1826 1768 899 Weight 170 lb 10.205 oz 73 lb 8 oz 73 lb 12.8 oz 68 lb 1.6 oz Last Vital Signs Temp Pulse Resp BP Pulse Ox 95 F L 66 15 90/68 100 07/12/20 11:00 07/12/20 12:45 07/12/20 12:45 07/12/20 12:00 07/12/20 11:29 Active Medications Albuterol/Ipratropium (Duoneb -) 1 amp NEB Q6H PRN PRN Reason: SHORTNESS OF BREATH Last Admin: 07/07/20 22:03 Dose: 1 amp Documented by: Amino Acids (Prosource No Carb Liquid Pkt) 30 ml PO BID@0800,1730 [facility] Last Admin: 07/12/20 08:14 Dose: 30 ml Documented by: Banana Based Medical Food (Banatrol Plus Powder Packet) 1 packet GT TID RAUL Last Admin: 07/12/20 13:01 Dose: 1 packet Documented by: Dextrose (D50w (Vial) -) 12.5 gm IVPUSH PRN PRN PRN Reason: HYPOGLYCEMIA Last Admin: 07/08/20 07:38 Dose: 12.5 gm Documented by: Folic Acid (Folic Acid -) 1 mg NGT DAILY [facility] Last Admin: 07/12/20 09:09 Dose: 1 mg Documented by: Heparin Sodium (Porcine) (Heparin -) 5,000 unit SQ TID [facility] Last Admin: 07/12/20 13:02 Dose: 5,000 unit Documented by: Piperacillin Sod/Tazobactam (Sod 3.375 gm/ Dextrose) 50 mls @ 100 mls/hr IVPB Q8H-IV RAUL; Protocol Last Admin: 07/12/20 09:09 Dose: 100 mls/hr Documented by: Vasopressin 40 units/ Sodium (Chloride) 100 mls @ 5 mls/hr IVPB ASDIR RAUL; Protocol Last Admin: 07/12/20 06:20 Dose: 2 units/hr, 5 mls/hr Documented by: Midazolam HCl 100 mg/ Sodium (Chloride) 100 mls @ 1 mls/hr IVPB TITR RAUL; Protocol Last Admin: 07/12/20 09:44 Dose: 7 mg/hr, 7 mls/hr Documented by: Dextrose/Lactated Ringer's (D5-Lr -) 1,000 mls @ 30 mls/hr IV ASDIR RAUL Last Admin: 07/12/20 12:43 Dose: 30 mls/hr Documented by: Potassium Phosphate 30 mm/ (Sodium Chloride) 260 mls @ 62.5 mls/hr IVPB ONCE ONE Stop: 07/12/20 18:33 Morphine Sulfate (Morphine Sulfate) 2 mg IVPUSH Q6H PRN PRN Reason: PAIN LEVEL 7 - 10 Multivitamins/Minerals (Certavite-Antioxidant Liquid) 15 ml NGT DAILY [facility] Last Admin: 07/12/20 09:19 Dose: 15 ml Documented by: Potassium Phos/Sodium Phos (Phos-Nak Packet -) 1 packet PO TID [facility] Last Admin: 07/12/20 13:02 Dose: 1 packet Documented by: Thiamine HCl (Vitamin B1 Injection -) 100 mg IVPB DAILY [facility] Last Admin: 07/12/20 09:10 Dose: 100 mg Documented by: GEN: Wasted, intubated & sedated HEENT: temporal wasting, sclera slightly icteric, dry MM PULM: Vented, Clear Heart: RRR ABD: scaphoid, (+) BS, S/S N/T SKIN: pale, cool, w/ multiple small patches of ecchymosis in different stages of healing EXT: peripheral edema Laboratory Results - last 24 hr 07/11/20 07/11/20 07/12/20 17:56 22:17 02:21 WBC RBC Hgb Hct MCV MCH MCHC RDW Plt Count MPV Absolute Neuts (auto) Neutrophils % Lymphocytes % Monocytes % Eosinophils % Basophils % Nucleated RBC % Sodium Potassium Chloride Carbon Dioxide Anion Gap BUN Creatinine Est GFR (CKD-EPI)AfAm Est GFR (CKD-EPI)NonAf POC Glucometer 109 115 70 Random Glucose Calcium Phosphorus Magnesium Total Bilirubin AST ALT Alkaline Phosphatase Total Protein Albumin 07/12/20 07/12/20 07/12/20 05:04 05:30 05:30 WBC 12.1 H RBC 2.95 L Hgb 8.7 L Hct 25.6 L MCV 86.8 MCH 29.4 MCHC 33.8 RDW 14.6 Plt Count 84 L MPV 8.9 D Absolute Neuts (auto) 10.8 H Neutrophils % 89.5 H Lymphocytes % 7.5 L Monocytes % 2.9 L Eosinophils % 0.0 D Basophils % 0.1 Nucleated RBC % 0 Sodium 136 Potassium 3.3 L Chloride 109 H Carbon Dioxide 20 L Anion Gap 8 BUN 21.3 H Creatinine 0.2 L Est GFR (CKD-EPI)AfAm 197.84 Est GFR (CKD-EPI)NonAf 170.70 POC Glucometer 109 Random Glucose 83 Calcium 6.2 L* Phosphorus 2.1 L Magnesium 1.6 L Total Bilirubin 0.8 AST 34 ALT 136 H Alkaline Phosphatase 438 H Total Protein 4.2 L Albumin 1.0 L ASSESS: -Acute Hypoxic Respiratory Failure due to Aspiration PNA -Liver Failure -Bone Marrow Failure -MSOF -UTI -Sepsis -Hyponatremia -SBO -Alcohol/Heroin Abuse -Anemia -FTT -Severe Protein Calorie Malnutrition -Refeeding Syndrome PLAN: - AC Mode of vent - Continue Enteral feeds as tolerated - Monitor off Fentanyl - Monitor e-lyes closely & replete prn --> keep K>4, Mg>2, PO4 > 3.5 - continue Zosyn for UTI +/- ASP PNA - f/u cultures - titrate O2 to keep SpO2 >90% - Sedation vacation - Heparin SQ for DVT prophylaxis - continue ICU monitoring - Prognosis is grim --> Will need to discuss further GOC with family Dr Babb Critical care time spent in reviewing chart, evaluating patient and formulating plan - 36 minutes.
--- NOTE | 2020-07-12 15:12 | PN ---
Progress Note, Physician History of Present Illness: Pt seen and examined at bedside. SHe remains in the ICU intubated. - Current Medication List Current Medications: Active Medications Albuterol/Ipratropium (Duoneb -) 1 amp NEB Q6H PRN PRN Reason: SHORTNESS OF BREATH Last Admin: 07/07/20 22:03 Dose: 1 amp Documented by: Amino Acids (Prosource No Carb Liquid Pkt) 30 ml PO BID@0800,1730 [facility] Last Admin: 07/12/20 08:14 Dose: 30 ml Documented by: Banana Based Medical Food (Banatrol Plus Powder Packet) 1 packet GT TID [facility] Last Admin: 07/12/20 13:01 Dose: 1 packet Documented by: Dextrose (D50w (Vial) -) 12.5 gm IVPUSH PRN PRN PRN Reason: HYPOGLYCEMIA Last Admin: 07/08/20 07:38 Dose: 12.5 gm Documented by: Folic Acid (Folic Acid -) 1 mg NGT DAILY [facility] Last Admin: 07/12/20 09:09 Dose: 1 mg Documented by: Heparin Sodium (Porcine) (Heparin -) 5,000 unit SQ TID [facility] Last Admin: 07/12/20 13:02 Dose: 5,000 unit Documented by: Piperacillin Sod/Tazobactam (Sod 3.375 gm/ Dextrose) 50 mls @ 100 mls/hr IVPB Q8H-IV [facility]; Protocol Last Admin: 07/12/20 09:09 Dose: 100 mls/hr Documented by: Vasopressin 40 units/ Sodium (Chloride) 100 mls @ 5 mls/hr IVPB ASDIR [facility]; Protocol Last Admin: 07/12/20 06:20 Dose: 2 units/hr, 5 mls/hr Documented by: Midazolam HCl 100 mg/ Sodium (Chloride) 100 mls @ 1 mls/hr IVPB TITR [facility]; Protocol Last Admin: 07/12/20 09:44 Dose: 7 mg/hr, 7 mls/hr Documented by: Dextrose/Lactated Ringer's (D5-Lr -) 1,000 mls @ 30 mls/hr IV ASDIR [facility] Last Admin: 07/12/20 12:43 Dose: 30 mls/hr Documented by: Potassium Phosphate 30 mm/ (Sodium Chloride) 260 mls @ 62.5 mls/hr IVPB ONCE ONE Stop: 07/12/20 18:33 Morphine Sulfate (Morphine Sulfate) 2 mg IVPUSH Q6H PRN PRN Reason: PAIN LEVEL 7 - 10 Last Admin: 07/12/20 14:55 Dose: 2 mg Documented by: Multivitamins/Minerals (Certavite-Antioxidant Liquid) 15 ml NGT DAILY [facility] Last Admin: 07/12/20 09:19 Dose: 15 ml Documented by: Potassium Phos/Sodium Phos (Phos-Nak Packet -) 1 packet PO TID [facility] Last Admin: 07/12/20 13:02 Dose: 1 packet Documented by: Thiamine HCl (Vitamin B1 Injection -) 100 mg IVPB DAILY [facility] Last Admin: 07/12/20 09:10 Dose: 100 mg Documented by: - Objective Vital Signs: Vital Signs Temperature 97.0 F L 07/12/20 14:00 Pulse Rate 58 L 07/12/20 15:07 Respiratory Rate 16 07/12/20 15:07 Blood Pressure 86/63 L 07/12/20 15:07 O2 Sat by Pulse Oximetry (%) 100 07/12/20 14:00 Constitutional: Yes: Calm Eyes: Yes: Conjunctiva Clear HENT: Yes: Atraumatic Cardiovascular: Yes: S1, S2 Respiratory: Yes: Mechanically Ventilated Gastrointestinal: Yes: Soft Genitourinary: Yes: Uribe Present Musculoskeletal: Yes: Muscle Weakness Edema: Yes Edema: LLE: 1+, RLE: 1+ Neurological: Yes: Lethargy Labs: CBC, BMP 07/12/20 05:30 07/12/20 05:30 INR, PTT INR 2.08 (0.83-1.09) H 07/06/20 08:05 Problem List - Problems (1) Hypoglycemia Code(s): E16.2 - HYPOGLYCEMIA, UNSPECIFIED (2) Sepsis Code(s): A41.9 - SEPSIS, UNSPECIFIED ORGANISM Qualifiers: Sepsis type: sepsis due to unspecified organism Sepsis acute organ dysfunction status: unspecified Qualified Code(s): A41.9 - Sepsis, unspecified organism (3) Hypoalbuminemia Code(s): E88.09 - OTH DISORDERS OF PLASMA-PROTEIN METABOLISM, NEC (4) Hyponatremia Code(s): E87.1 - HYPO-OSMOLALITY AND HYPONATREMIA Assessment/Plan Current Medications Generic Name Dose Route Start Last Admin Trade Name Freq PRN Reason Stop Dose Admin Albuterol/Ipratropium 1 amp 07/07/20 19:45 07/07/20 22:03 Duoneb - NEB 1 amp Q6H PRN Administration SHORTNESS OF BREATH Amino Acids 30 ml 07/11/20 17:30 07/12/20 08:14 Prosource No Carb Liquid Pkt PO 30 ml BID@0800,1730 RAUL Administration Banana Based Medical Food 1 packet 07/10/20 22:00 07/12/20 13:01 Banatrol Plus Powder Packet GT 1 packet TID [facility] Administration Dextrose 12.5 gm 07/08/20 07:08 07/08/20 07:38 D50w (Vial) - IVPUSH 12.5 gm PRN PRN Administration HYPOGLYCEMIA Folic Acid 1 mg 07/06/20 10:00 07/12/20 09:09 Folic Acid - NGT 1 mg DAILY [facility] Administration Heparin Sodium (Porcine) 5,000 unit 07/10/20 22:00 07/12/20 13:02 Heparin - SQ 5,000 unit TID [facility] Administration Piperacillin Sod/Tazobactam 50 mls @ 100 mls/hr 07/02/20 18:00 07/12/20 09:09 Sod 3.375 gm/ Dextrose IVPB 100 mls/hr Q8H-IV [facility] Administration Protocol Vasopressin 40 units/ Sodium 100 mls @ 5 mls/hr 07/08/20 07:00 07/12/20 06:20 Chloride IVPB 2 units/hr ASDIR RAUL 5 mls/hr Administration Protocol 2 UNITS/HR Midazolam HCl 100 mg/ Sodium 100 mls @ 1 mls/hr 07/08/20 07:15 07/12/20 09:44 Chloride IVPB 7 mg/hr TITR [facility] 7 mls/hr Administration Protocol 1 MG/HR Dextrose/Lactated Ringer's 1,000 mls @ 30 mls/hr 07/12/20 12:30 07/12/20 12:43 D5-Lr - IV 30 mls/hr ASDIR [facility]UL Administration Potassium Phosphate 30 mm/ 260 mls @ 62.5 mls/hr 07/12/20 14:24 Sodium Chloride IVPB 07/12/20 18:33 ONCE ONE Morphine Sulfate 2 mg 07/12/20 13:16 07/12/20 14:55 Morphine Sulfate IVPUSH 2 mg Q6H PRN Administration PAIN LEVEL 7 - 10 Multivitamins/Minerals 15 ml 07/06/20 11:45 07/12/20 09:19 Certavite-Antioxidant Liquid NGT 15 ml DAILY [facility] Administration Potassium Phos/Sodium Phos 1 packet 07/09/20 14:00 07/12/20 13:02 Phos-Nak Packet - PO 1 packet TID [facility] Administration Thiamine HCl 100 mg 07/11/20 12:45 07/12/20 09:10 Vitamin B1 Injection - IVPB 100 mg DAILY [facility] Administration Impression 1. azotemia 2. hyponatremia 3. hyperkalemia 4. hypotension 5. sepsis 6. sbo 7. uti 8. liver cirrhosis 9. hypoalbuminemia 10. etoh abuse 11. substance abuse 12. psoriasis 13. acute resp failure 14. malnutrition Plan - replace lytes - cont feeds - vent support - dietary follow up for recs - monitor bp, maintain map 65
--- NOTE | 2020-07-12 17:15 | PN ---
Progress Note, Physician History of Present Illness: INTUBATED - Current Medication List Current Medications: Active Medications Albuterol/Ipratropium (Duoneb -) 1 amp NEB Q6H PRN PRN Reason: SHORTNESS OF BREATH Last Admin: 07/07/20 22:03 Dose: 1 amp Documented by: Amino Acids (Prosource No Carb Liquid Pkt) 30 ml PO BID@0800,1730 [facility] Last Admin: 07/12/20 16:55 Dose: 30 ml Documented by: Banana Based Medical Food (Banatrol Plus Powder Packet) 1 packet GT TID [facility] Last Admin: 07/12/20 13:01 Dose: 1 packet Documented by: Dextrose (D50w (Vial) -) 12.5 gm IVPUSH PRN PRN PRN Reason: HYPOGLYCEMIA Last Admin: 07/08/20 07:38 Dose: 12.5 gm Documented by: Folic Acid (Folic Acid -) 1 mg NGT DAILY [facility] Last Admin: 07/12/20 09:09 Dose: 1 mg Documented by: Heparin Sodium (Porcine) (Heparin -) 5,000 unit SQ TID [facility] Last Admin: 07/12/20 13:02 Dose: 5,000 unit Documented by: Piperacillin Sod/Tazobactam (Sod 3.375 gm/ Dextrose) 50 mls @ 100 mls/hr IVPB Q8H-IV [facility]; Protocol Last Admin: 07/12/20 17:02 Dose: 100 mls/hr Documented by: Vasopressin 40 units/ Sodium (Chloride) 100 mls @ 5 mls/hr IVPB ASDIR [facility]; Protocol Last Admin: 07/12/20 06:20 Dose: 2 units/hr, 5 mls/hr Documented by: Midazolam HCl 100 mg/ Sodium (Chloride) 100 mls @ 1 mls/hr IVPB TITR [facility]; Protocol Last Admin: 07/12/20 09:44 Dose: 7 mg/hr, 7 mls/hr Documented by: Dextrose/Lactated Ringer's (D5-Lr -) 1,000 mls @ 30 mls/hr IV ASDIR [facility] Last Admin: 07/12/20 12:43 Dose: 30 mls/hr Documented by: Potassium Phosphate 30 mm/ (Sodium Chloride) 260 mls @ 62.5 mls/hr IVPB ONCE ONE Stop: 07/12/20 18:33 Last Admin: 07/12/20 16:55 Dose: 62.5 mls/hr Documented by: Morphine Sulfate (Morphine Sulfate) 2 mg IVPUSH Q6H PRN PRN Reason: PAIN LEVEL 7 - 10 Last Admin: 07/12/20 14:55 Dose: 2 mg Documented by: Multivitamins/Minerals (Certavite-Antioxidant Liquid) 15 ml NGT DAILY [facility] Last Admin: 07/12/20 09:19 Dose: 15 ml Documented by: Potassium Phos/Sodium Phos (Phos-Nak Packet -) 1 packet PO TID [facility] Last Admin: 07/12/20 13:02 Dose: 1 packet Documented by: Thiamine HCl (Vitamin B1 Injection -) 100 mg IVPB DAILY [facility] Last Admin: 07/12/20 09:10 Dose: 100 mg Documented by: - Objective Vital Signs: Vital Signs Temperature 97.0 F L 07/12/20 14:00 Pulse Rate 58 L 07/12/20 15:07 Respiratory Rate 17 07/12/20 15:39 Blood Pressure 86/63 L 07/12/20 15:07 O2 Sat by Pulse Oximetry (%) 100 07/12/20 15:39 Constitutional: Yes: No Distress HENT: Yes: Atraumatic Neck: Yes: Supple Cardiovascular: Yes: Regular Rate and Rhythm Respiratory: Yes: Mechanically Ventilated Gastrointestinal: Yes: Normal Bowel Sounds Extremities: Yes: WNL Labs: CBC, BMP 07/12/20 05:30 07/12/20 05:30 INR, PTT INR 2.08 (0.83-1.09) H 07/06/20 08:05 Problem List - Problems (1) At risk for electrolyte imbalance Assessment/Plan: MONITOR AND REPLACE Code(s): Z91.89 - OTH PERSONAL RISK FACTORS, NOT ELSEWHERE CLASSIFIED (2) SBO (small bowel obstruction) Assessment/Plan: ON TUBE FEEDS NOW Code(s): K56.609 - UNSP INTESTNL OBST, UNSP TO PARTIAL VERSUS COMPLETE OBST (3) Sepsis Assessment/Plan: ON IV ABX CXS NOTED RESOLVING Code(s): A41.9 - SEPSIS, UNSPECIFIED ORGANISM Qualifiers: Sepsis type: sepsis due to unspecified organism Sepsis acute organ dysfun ction status: unspecified Qualified Code(s): A41.9 - Sepsis, unspecified organism (4) Alcoholic liver damage Code(s): K70.9 - ALCOHOLIC LIVER DISEASE, UNSPECIFIED (5) Hypoalbuminemia Code(s): E88.09 - OTH DISORDERS OF PLASMA-PROTEIN METABOLISM, NEC (6) Hyponatremia Code(s): E87.1 - HYPO-OSMOLALITY AND HYPONATREMIA (7) Liver cirrhosis, alcoholic Code(s): K70.30 - ALCOHOLIC CIRRHOSIS OF LIVER WITHOUT ASCITES (8) Ischemic hepatitis Code(s): K75.9 - INFLAMMATORY LIVER DISEASE, UNSPECIFIED (9) Respiratory failure Assessment/Plan: INTUBATED Code(s): J96.90 - RESPIRATORY FAILURE, UNSP, UNSP W HYPOXIA OR HYPERCAPNIA (10) UTI (urinary tract infection) Assessment/Plan: SEPSIS..RESOLVING ON IV ABX Code(s): N39.0 - URINARY TRACT INFECTION, SITE NOT SPECIFIED Qualifiers: Urinary tract infection type: site unspecified Hematuria presence: with hematuria Qualified Code(s): N39.0 - Urinary tract infection, site not specified; R31.9 - Hematuria, unspecified (11) Elevated LFTs Assessment/Plan: IMPROVING MONITOR Code(s): R79.89 - OTHER SPECIFIED ABNORMAL FINDINGS OF BLOOD CHEMISTRY (12) Hypothermia Assessment/Plan: ON BEAR HUGGER TEMP IMPROVING Code(s): T68.XXXA - HYPOTHERMIA, INITIAL ENCOUNTER Assessment/Plan COVERING FOR DR FOREMAN TODAY ICU CC TIME 35 MIN
[2020-07-12] MEDS: D5-LR+20 MEQ KCL - 20 MEQ/1,000 ML INFUS.BAG IV SCH (23:33)
[2020-07-13] MEDS ORDERED: PIPERACILLIN/TAZOBACTAM 3.375 GM VIAL IVPB ONE ×3 (01:52→17:32)
[2020-07-13] MEDS ORDERED: DEXTROSE 5%-WATER - 50 ML IVPB ONE ×3 (01:52→17:32)
[2020-07-13] MEDS: PIPERACILLIN/TAZOB 3.375 GM 3.375 GM in DEXTROSE 5%-WATER - 50 ML IVPB SCH ×3 (02:07→17:39)
[2020-07-13 06:51] LABS: BASO % 0.1 % (0-2.0); EOS % 0.2 % (0-4.5); HEMATOCRIT 23.7 % (32.4-45.2); HEMOGLOBIN 8.1 GM/dL (10.7-15.3); MCH 29.8 pg (25.7-33.7); MCHC 34.1 g/dl (32.0-36.0); MEAN CELL VOLUME 87.5 fl (80-96); MEAN PLT VOLUME 9.7 fl (7.5-11.1); MONO % 3.4 % (3.8-10.2); NEUT % 89.3 % (42.8-82.8); PLATELET COUNT 91 K/MM3 (134-434); RDW 14.3 % (11.6-15.6); WHITE BLOOD COUNT 10.9 K/mm3 (4.0-10.0)
[2020-07-13] MEDS: VASOPRESSIN 40 UNITS in SODIUM CHLORIDE 98 ML IVPB SCH (06:57)
[2020-07-13] MEDS: BANATROL PLUS POWDER PACKET GT SCH ×3 (06:57→23:14)
[2020-07-13] MEDS: HEPARIN NA (PORCINE) 5,000 UNITS/ML 1ML VIAL SQ SCH ×3 (06:57→23:14)
[2020-07-13] MEDS: NAPH,MB-DB/K PH,MBDB POWDER PACKET PO SCH ×3 (06:57→23:14)
[2020-07-13] MEDS: MIDAZOLAM 100 MG in SODIUM CHLORIDE 100 ML IVPB SCH ×2 (06:58→15:53)
[2020-07-13 07:19] LABS: ANION GAP 7 MMOL/L (8-16); BILIRUBIN,TOTAL 0.5 mg/dL (0.2-1); BLOOD UREA NITROGEN 18.8 mg/dL (7-18); CHLORIDE 108 mmol/L (98-107); CO2 20 mmol/L (21-32); CREATININE < 0.2 mg/dL (0.55-1.3); GLUCOSE,RANDOM 84 mg/dL (74-106); MAGNESIUM 1.6 mg/dL (1.8-2.4); PHOSPHOROUS 2.7 mg/dL (2.5-4.9); POTASSIUM 3.5 mmol/L (3.5-5.1); SGOT/AST 28 U/L (15-37); SGPT/ALT 104 U/L (13-61); SODIUM 134 mmol/L (136-145); TOT PROT 4.1 g/dl (6.4-8.2)
[2020-07-13 08:29] LABS: ALK PHOS 369 U/L (45-117)
[2020-07-13] MEDS ORDERED: MAGNESIUM 2GM/50ML STERILE WATER IVPB IVPB ONE (09:00)
[2020-07-13 09:09] LABS: CALCIUM 6.2 mg/dL (8.5-10.1)
[2020-07-13] MEDS ORDERED: PT OWN MED DRAWER 7, Y5N ONE (09:37)
[2020-07-13] MEDS: AMINO ACIDS/PROTEIN HYDROLYS 30 ML LIQUID.PKT PO SCH (09:43)
[2020-07-13] MEDS: FOLIC ACID 1 MG TABLET (FP) NGT SCH (09:48)
[2020-07-13] MEDS: MULTIVIT-MINERALS ORAL LIQUID NGT SCH (09:48)
[2020-07-13] MEDS: THIAMINE HCL 200 MG/2 ML VIAL IVPB SCH (09:59)
--- NOTE | 2020-07-13 11:25 | CON.PSY ---
Psychiatry Consult Chief Complaint: unable to Psych evlka. Patient is intubated.. - Current Medications Current Medications: Active Medications Banana Based Medical Food (Banatrol Plus Powder Packet) 1 packet GT TID [facility] Last Admin: 07/13/20 06:57 Dose: 1 packet Documented by: Dextrose (D50w (Vial) -) 12.5 gm IVPUSH PRN PRN PRN Reason: HYPOGLYCEMIA Last Admin: 07/08/20 07:38 Dose: 12.5 gm Documented by: Folic Acid (Folic Acid -) 1 mg NGT DAILY [facility] Last Admin: 07/13/20 09:48 Dose: 1 mg Documented by: Heparin Sodium (Porcine) (Heparin -) 5,000 unit SQ TID [facility] Last Admin: 07/13/20 06:57 Dose: 5,000 unit Documented by: Piperacillin Sod/Tazobactam (Sod 3.375 gm/ Dextrose) 50 mls @ 100 mls/hr IVPB Q8H-IV RAUL; Protocol Last Admin: 07/13/20 09:49 Dose: 100 mls/hr Documented by: Vasopressin 40 units/ Sodium (Chloride) 100 mls @ 5 mls/hr IVPB ASDIR [facility]; Protocol Last Admin: 07/13/20 06:57 Dose: Not Given Documented by: Midazolam HCl 100 mg/ Sodium (Chloride) 100 mls @ 1 mls/hr IVPB TITR RAUL; Protocol Last Admin: 07/13/20 06:58 Dose: Not Given Documented by: Dextrose/Lactated Ringer's (D5-Lr+20 Meq Kcl -) 20 meq in 1,000 mls @ 30 mls/hr IV ASDIR [facility] Last Admin: 07/12/20 23:33 Dose: 30 mls/hr Documented by: Morphine Sulfate (Morphine Sulfate) 2 mg IVPUSH Q6H PRN PRN Reason: PAIN LEVEL 7 - 10 Last Admin: 07/12/20 14:55 Dose: 2 mg Documented by: Multivitamins/Minerals (Certavite-Antioxidant Liquid) 15 ml NGT DAILY [facility] Last Admin: 07/13/20 09:48 Dose: 15 ml Documented by: Potassium Phos/Sodium Phos (Phos-Nak Packet -) 1 packet PO TID [facility] Last Admin: 07/13/20 06:57 Dose: 1 packet Documented by: Thiamine HCl (Vitamin B1 Injection -) 100 mg IVPB DAILY [facility] Last Admin: 07/13/20 09:59 Dose: 100 mg Documented by: - Allergies Allergies: Allergies Allergy/AdvReac Type Severity Reaction Status Date / Time No Known Allergies Allergy Verified 07/01/20 14:36
--- NOTE | 2020-07-13 14:11 | PN ---
Teaching Attending Note Name of Resident: Gio Howard ATTENDING PHYSICIAN STATEMENT I saw and evaluated the patient. I reviewed the resident's note and discussed the case with the resident. I agree with the resident's findings and plan as documented. SUBJECTIVE: Patient seen and examined in the ICU. Remains intubated and sedated. AC Mode of vent. PPlat : 11 2 units of Vasopressin for hemodynamic support. Intake & Output 07/10/20 07/11/20 07/12/20 07/13/20 23:59 23:59 23:59 23:59 Intake Total 2476 2398 2884 744 Output Total 650 630 225 350 Balance 1826 8208 6079 394 Weight 73 lb 8 oz 73 lb 12.8 oz 68 lb 1.6 oz 66 lb 8 oz Last Vital Signs Temp Pulse Resp BP Pulse Ox 97.6 F 74 21 H 90/69 98 07/13/20 06:00 07/13/20 12:00 07/13/20 12:13 07/13/20 12:00 07/13/20 12:14 Active Medications Banana Based Medical Food (Banatrol Plus Powder Packet) 1 packet GT TID [facility] Last Admin: 07/13/20 06:57 Dose: 1 packet Documented by: Dextrose (D50w (Vial) -) 12.5 gm IVPUSH PRN PRN PRN Reason: HYPOGLYCEMIA Last Admin: 07/08/20 07:38 Dose: 12.5 gm Documented by: Folic Acid (Folic Acid -) 1 mg NGT DAILY [facility] Last Admin: 07/13/20 09:48 Dose: 1 mg Documented by: Heparin Sodium (Porcine) (Heparin -) 5,000 unit SQ TID [facility] Last Admin: 07/13/20 06:57 Dose: 5,000 unit Documented by: Piperacillin Sod/Tazobactam (Sod 3.375 gm/ Dextrose) 50 mls @ 100 mls/hr IVPB Q8H-IV [facility]; Protocol Last Admin: 07/13/20 09:49 Dose: 100 mls/hr Documented by: Vasopressin 40 units/ Sodium (Chloride) 100 mls @ 5 mls/hr IVPB ASDIR [facility]; Protocol Last Admin: 07/13/20 06:57 Dose: Not Given Documented by: Midazolam HCl 100 mg/ Sodium (Chloride) 100 mls @ 1 mls/hr IVPB TITR [facility]; Protocol Last Admin: 07/13/20 06:58 Dose: Not Given Documented by: Dextrose/Lactated Ringer's (D5-Lr+20 Meq Kcl -) 20 meq in 1,000 mls @ 30 mls/hr IV ASDIR RAUL Last Admin: 07/12/20 23:33 Dose: 30 mls/hr Documented by: Morphine Sulfate (Morphine Sulfate) 2 mg IVPUSH Q6H PRN PRN Reason: PAIN LEVEL 7 - 10 Last Admin: 07/12/20 14:55 Dose: 2 mg Documented by: Multivitamins/Minerals (Certavite-Antioxidant Liquid) 15 ml NGT DAILY [facility] Last Admin: 07/13/20 09:48 Dose: 15 ml Documented by: Potassium Phos/Sodium Phos (Phos-Nak Packet -) 1 packet PO TID [facility] Last Admin: 07/13/20 06:57 Dose: 1 packet Documented by: Thiamine HCl (Vitamin B1 Injection -) 100 mg IVPB DAILY [facility] Last Admin: 07/13/20 09:59 Dose: 100 mg Documented by: GEN: Wasted, intubated & sedated HEENT: temporal wasting, sclera slightly icteric, dry MM PULM: Vented, Clear Heart: RRR ABD: scaphoid, (+) BS, S/S N/T SKIN: pale, cool, w/ multiple small patches of ecchymosis in different stages of healing EXT: peripheral edema Laboratory Results - last 24 hr 07/09/20 07/12/20 07/12/20 18:30 16:08 23:03 WBC RBC Hgb Hct MCV MCH MCHC RDW Plt Count MPV Absolute Neuts (auto) Neutrophils % Lymphocytes % Monocytes % Eosinophils % Basophils % Nucleated RBC % Sodium Potassium Chloride Carbon Dioxide Anion Gap BUN Creatinine Est GFR (CKD-EPI)AfAm Est GFR (CKD-EPI)NonAf POC Glucometer 92 74 Random Glucose Calcium Phosphorus Magnesium Total Bilirubin AST ALT Alkaline Phosphatase Total Protein Albumin TSH Free T4 Blood Type O POSITIVE Antibody Screen Negative Crossmatch See Detail 07/13/20 07/13/20 07/13/20 02:58 05:30 05:30 WBC 10.9 H RBC 2.70 L Hgb 8.1 L Hct 23.7 L MCV 87.5 MCH 29.8 MCHC 34.1 RDW 14.3 Plt Count 91 L MPV 9.7 Absolute Neuts (auto) 9.7 H Neutrophils % 89.3 H Lymphocytes % 7.0 L Monocytes % 3.4 L Eosinophils % 0.2 D Basophils % 0.1 Nucleated RBC % 0 Sodium 134 L Potassium 3.5 Chloride 108 H Carbon Dioxide 20 L Anion Gap 7 L BUN 18.8 H Creatinine < 0.2 L Est GFR (CKD-EPI)AfAm 197.85 Est GFR (CKD-EPI)NonAf 170.70 POC Glucometer 95 Random Glucose 84 Calcium 6.2 L* Phosphorus 2.7 Magnesium 1.6 L Total Bilirubin 0.5 AST 28 ALT 104 H Alkaline Phosphatase 369 H Total Protein 4.1 L Albumin 1.0 L TSH 6.61 H Free T4 0.46 L Blood Type Antibody Screen Crossmatch 07/13/20 07/13/20 05:46 13:53 WBC RBC Hgb Hct MCV MCH MCHC RDW Plt Count MPV Absolute Neuts (auto) Neutrophils % Lymphocytes % Monocytes % Eosinophils % Basophils % Nucleated RBC % Sodium Potassium Chloride Carbon Dioxide Anion Gap BUN Creatinine Est GFR (CKD-EPI)AfAm Est GFR (CKD-EPI)NonAf POC Glucometer 85 67 Random Glucose Calcium Phosphorus Magnesium Total Bilirubin AST ALT Alkaline Phosphatase Total Protein Albumin TSH Free T4 Blood Type Antibody Screen Crossmatch ASSESS: -Acute Hypoxic Respiratory Failure due to Aspiration PNA -Liver Failure -Bone Marrow Failure -MSOF -UTI -Sepsis -Hyponatremia -SBO -Alcohol/Heroin Abuse -Anemia -FTT -Severe Protein Calorie Malnutrition -Refeeding Syndrome PLAN: - AC Mode of vent - Continue Enteral feeds as tolerated - Monitor off Fentanyl - Monitor e-lyes closely & replete prn --> keep K>4, Mg>2, PO4 > 3.5 - continue Zosyn for UTI +/- ASP PNA - f/u cultures - titrate O2 to keep SpO2 >90% - Sedation vacation - Heparin SQ for DVT prophylaxis - continue ICU monitoring - Prognosis is grim --> Will need to discuss further GOC with family Dr Babb Critical care time spent in reviewing chart, evaluating patient and formulating plan - 36 minutes.
--- NOTE | 2020-07-13 14:19 | PN ---
Progress Note, Physician History of Present Illness: Pt seen and examined at bedside. She remains in the ICU. She remains intubated. - Current Medication List Current Medications: Active Medications Banana Based Medical Food (Banatrol Plus Powder Packet) 1 packet GT TID [facility] Last Admin: 07/13/20 14:11 Dose: 1 packet Documented by: Dextrose (D50w (Vial) -) 12.5 gm IVPUSH PRN PRN PRN Reason: HYPOGLYCEMIA Last Admin: 07/08/20 07:38 Dose: 12.5 gm Documented by: Folic Acid (Folic Acid -) 1 mg NGT DAILY [facility] Last Admin: 07/13/20 09:48 Dose: 1 mg Documented by: Heparin Sodium (Porcine) (Heparin -) 5,000 unit SQ TID [facility] Last Admin: 07/13/20 14:11 Dose: 5,000 unit Documented by: Piperacillin Sod/Tazobactam (Sod 3.375 gm/ Dextrose) 50 mls @ 100 mls/hr IVPB Q8H-IV [facility]; Protocol Last Admin: 07/13/20 09:49 Dose: 100 mls/hr Documented by: Vasopressin 40 units/ Sodium (Chloride) 100 mls @ 5 mls/hr IVPB ASDIR [facility]; Protocol Last Admin: 07/13/20 06:57 Dose: Not Given Documented by: Midazolam HCl 100 mg/ Sodium (Chloride) 100 mls @ 1 mls/hr IVPB TITR [facility]; Protocol Last Admin: 07/13/20 06:58 Dose: Not Given Documented by: Dextrose/Lactated Ringer's (D5-Lr+20 Meq Kcl -) 20 meq in 1,000 mls @ 30 mls/hr IV ASDIR [facility] Last Admin: 07/12/20 23:33 Dose: 30 mls/hr Documented by: Morphine Sulfate (Morphine Sulfate) 2 mg IVPUSH Q6H PRN PRN Reason: PAIN LEVEL 7 - 10 Last Admin: 07/12/20 14:55 Dose: 2 mg Documented by: Multivitamins/Minerals (Certavite-Antioxidant Liquid) 15 ml NGT DAILY [facility] Last Admin: 07/13/20 09:48 Dose: 15 ml Documented by: Potassium Phos/Sodium Phos (Phos-Nak Packet -) 1 packet PO TID [facility] Last Admin: 07/13/20 14:11 Dose: 1 packet Documented by: Thiamine HCl (Vitamin B1 Injection -) 100 mg IVPB DAILY [facility] Last Admin: 07/13/20 09:59 Dose: 100 mg Documented by: - Objective Vital Signs: Vital Signs Temperature 97.6 F 07/13/20 06:00 Pulse Rate 74 07/13/20 12:00 Respiratory Rate 21 H 07/13/20 12:13 Blood Pressure 90/69 07/13/20 12:00 O2 Sat by Pulse Oximetry (%) 98 07/13/20 12:14 Constitutional: Yes: Calm Eyes: Yes: Conjunctiva Clear Cardiovascular: Yes: S1, S2 Respiratory: Yes: Mechanically Ventilated Gastrointestinal: Yes: Soft Genitourinary: Yes: Uribe Present Musculoskeletal: Yes: Muscle Weakness Edema: Yes Edema: LLE: 1+, RLE: 1+ Neurological: Yes: Lethargy Labs: CBC, BMP 07/13/20 05:30 07/13/20 05:30 INR, PTT INR 2.08 (0.83-1.09) H 07/06/20 08:05 Problem List - Problems (1) Hypoglycemia Code(s): E16.2 - HYPOGLYCEMIA, UNSPECIFIED (2) Sepsis Code(s): A41.9 - SEPSIS, UNSPECIFIED ORGANISM Qualifiers: Sepsis type: sepsis due to unspecified organism Sepsis acute organ dysfunction status: unspecified Qualified Code(s): A41.9 - Sepsis, unspecified organism (3) Hypoalbuminemia Code(s): E88.09 - OTH DISORDERS OF PLASMA-PROTEIN METABOLISM, NEC (4) Hyponatremia Code(s): E87.1 - HYPO-OSMOLALITY AND HYPONATREMIA Assessment/Plan Current Medications Generic Name Dose Route Start Last Admin Trade Name Freq PRN Reason Stop Dose Admin Banana Based Medical Food 1 packet 07/10/20 22:00 07/13/20 14:11 Banatrol Plus Powder Packet GT 1 packet TID [facility] Administration Dextrose 12.5 gm 07/08/20 07:08 07/08/20 07:38 D50w (Vial) - IVPUSH 12.5 gm PRN PRN Administration HYPOGLYCEMIA Folic Acid 1 mg 07/06/20 10:00 07/13/20 09:48 Folic Acid - NGT 1 mg DAILY [facility] Administration Heparin Sodium (Porcine) 5,000 unit 07/10/20 22:00 07/13/20 14:11 Heparin - SQ 5,000 unit TID [facility] Administration Piperacillin Sod/Tazobactam 50 mls @ 100 mls/hr 07/02/20 18:00 07/13/20 09:49 Sod 3.375 gm/ Dextrose IVPB 100 mls/hr Q8H-IV [facility] Administration Protocol Vasopressin 40 units/ Sodium 100 mls @ 5 mls/hr 07/08/20 07:00 07/13/20 06:57 Chloride IVPB Not Given ASDIR [facility] Protocol 2 UNITS/HR Midazolam HCl 100 mg/ Sodium 100 mls @ 1 mls/hr 07/08/20 07:15 07/13/20 06:58 Chloride IVPB Not Given TITR [facility] Protocol 1 MG/HR Dextrose/Lactated Ringer's 20 meq in 1,000 mls @ 30 mls/hr 07/12/20 23:30 07/12/20 23:33 D5-Lr+20 Meq Kcl - IV 30 mls/hr ASDIR [facility] Administration Morphine Sulfate 2 mg 07/12/20 13:16 07/12/20 14:55 Morphine Sulfate IVPUSH 2 mg Q6H PRN Administration PAIN LEVEL 7 - 10 Multivitamins/Minerals 15 ml 07/06/20 11:45 07/13/20 09:48 Certavite-Antioxidant Liquid NGT 15 ml DAILY [facility] Administration Potassium Phos/Sodium Phos 1 packet 07/09/20 14:00 07/13/20 14:11 Phos-Nak Packet - PO 1 packet TID [facility] Administration Thiamine HCl 100 mg 07/11/20 12:45 07/13/20 09:59 Vitamin B1 Injection - IVPB 100 mg DAILY [facility] Administration Impression 1. azotemia 2. hyponatremia 3. hyperkalemia 4. hypotension 5. sepsis 6. sbo 7. uti 8. liver cirrhosis 9. hypoalbuminemia 10. etoh abuse 11. substance abuse 12. psoriasis 13. acute resp failure 14. malnutrition Plan - cont feeds - titrate as tolerated - monitor lytes - repeat labs in am - dietary follow up for recs - monitor bp, maintain map 65
--- NOTE | 2020-07-13 14:31 | PN ---
Progress Note, Physician History of Present Illness: continues to be intubated and on pressors cx reports noted - Current Medication List Current Medications: Active Medications Banana Based Medical Food (Banatrol Plus Powder Packet) 1 packet GT TID RAUL Last Admin: 07/13/20 14:11 Dose: 1 packet Documented by: Dextrose (D50w (Vial) -) 12.5 gm IVPUSH PRN PRN PRN Reason: HYPOGLYCEMIA Last Admin: 07/08/20 07:38 Dose: 12.5 gm Documented by: Folic Acid (Folic Acid -) 1 mg NGT DAILY RAUL Last Admin: 07/13/20 09:48 Dose: 1 mg Documented by: Heparin Sodium (Porcine) (Heparin -) 5,000 unit SQ TID RAUL Last Admin: 07/13/20 14:11 Dose: 5,000 unit Documented by: Piperacillin Sod/Tazobactam (Sod 3.375 gm/ Dextrose) 50 mls @ 100 mls/hr IVPB Q8H-IV RAUL; Protocol Last Admin: 07/13/20 09:49 Dose: 100 mls/hr Documented by: Vasopressin 40 units/ Sodium (Chloride) 100 mls @ 5 mls/hr IVPB ASDIR RAUL; Protocol Last Admin: 07/13/20 06:57 Dose: Not Given Documented by: Midazolam HCl 100 mg/ Sodium (Chloride) 100 mls @ 1 mls/hr IVPB TITR RAUL; Protocol Last Admin: 07/13/20 06:58 Dose: Not Given Documented by: Dextrose/Lactated Ringer's (D5-Lr+20 Meq Kcl -) 20 meq in 1,000 mls @ 30 mls/hr IV ASDIR RAUL Last Admin: 07/12/20 23:33 Dose: 30 mls/hr Documented by: Morphine Sulfate (Morphine Sulfate) 2 mg IVPUSH Q6H PRN PRN Reason: PAIN LEVEL 7 - 10 Last Admin: 07/12/20 14:55 Dose: 2 mg Documented by: Multivitamins/Minerals (Certavite-Antioxidant Liquid) 15 ml NGT DAILY [facility] Last Admin: 07/13/20 09:48 Dose: 15 ml Documented by: Potassium Phos/Sodium Phos (Phos-Nak Packet -) 1 packet PO TID RAUL Last Admin: 07/13/20 14:11 Dose: 1 packet Documented by: Thiamine HCl (Vitamin B1 Injection -) 100 mg IVPB DAILY RAUL Last Admin: 07/13/20 09:59 Dose: 100 mg Documented by: - Objective Vital Signs: Vital Signs Temperature 96.1 F L 07/13/20 14:00 Pulse Rate 70 07/13/20 14:00 Respiratory Rate 17 07/13/20 14:00 Blood Pressure 85/63 L 07/13/20 14:00 O2 Sat by Pulse Oximetry (%) 98 07/13/20 12:14 Constitutional: Yes: No Distress, Calm Respiratory: Yes: Intubated, Mechanically Ventilated Gastrointestinal: Yes: Normal Bowel Sounds, Soft Musculoskeletal: Yes: WNL Extremities: Yes: Other Neurological: Yes: Other Labs: CBC, BMP 07/13/20 05:30 07/13/20 05:30 INR, PTT INR 2.08 (0.83-1.09) H 07/06/20 08:05 Assessment/Plan Pneumonia likely Aspiration UTI Sepsis Hyponatremia SBO resolving Alcohol/Heroin Abuse Anemia Failure to Thrive Severe Protein Calorie Malnutrition uti plan continue current mgmt abx nutrition rest as per icu monitor wbc wbc decreasing cc 36 min
[2020-07-13] MEDS ORDERED: MIDAZOLAM IN 0.9 % SOD.CHLORID 1 MG/1 ML PLAST..BAG ONE (15:02)
[2020-07-13] MEDS: D5-LR+20 MEQ KCL - 20 MEQ/1,000 ML INFUS.BAG IV SCH (19:00)
--- NOTE | 2020-07-13 20:00 | PN ---
Progress Note (short form) - Note Progress Note: Ethics Consult from Resident MD: Dr. Howard Re: ""Grim prognosis; are we making the correct decision regarding current care?" Medical futility is a recurrent question for recent ICU patients. We are in fact going to have an Ethics Committee meeting via Zoom on Jul at 12:30 on this subject. Anyone may participate. The underlying issue is what are the goals of care: for example in this case if the patient had previously expressed that she wanted all treatments and supportive care continued as long as she was still alive in spite of possible pain or possible suffering during invasive procedures,then the current care should be continued as long as the treatments are not harmful, contraindicated or against accepted medical standards. If she did not leave any direction then her Mom would have to make those decisions unless she had a domestic partner or child of her own as she is listed as single. Naturally there is room for interpretation of these words and ethics is often 51% VS 49% in decision making. We have to make certain that our opinion about what is futile is not forced upon the patient or their surrogate. If however the patient has said if he/she would not want to continue care if they were not to return to their normal sate of health or function then supportive care would not be indicated. I will follow.
--- NOTE | 2020-07-13 22:15 | PN ---
Physical Exam: SUBJECTIVE: Patient seen and examined intubated and sedated OBJECTIVE: GENERAL: Intubated and sedated HEAD: No signs of trauma, normocephalic, atraumatic ENT: Auricles normal inspection, nares patent NECK: Normal ROM, supple, no lymphadenopathy, JVD, or masses LUNGS: dec breath sounds at bilateral bases HEART: Regular rate and rhythm, normal S1 and S2, no murmurs, rubs or gallops, peripheral pulses normal and equal bilaterally. abdomen: soft EXTREMITIES : cachectic and weeping with bilateral pitting edema in upper and lower ext improved from yesterday NEUROLOGICAL: Pt able to comply to commands SKIN:Cachectic Vital Signs Period Temp Pulse Resp BP Sys/Campbell Pulse Ox Last 24 Hr 95 F-97.8 F 64-82 15-21 84-99/63-73 98-100 Laboratory Results - last 24 hr 07/12/20 07/13/20 07/13/20 23:03 02:58 05:30 WBC 10.9 H RBC 2.70 L Hgb 8.1 L Hct 23.7 L MCV 87.5 MCH 29.8 MCHC 34.1 RDW 14.3 Plt Count 91 L MPV 9.7 Absolute Neuts (auto) 9.7 H Neutrophils % 89.3 H Lymphocytes % 7.0 L Monocytes % 3.4 L Eosinophils % 0.2 D Basophils % 0.1 Nucleated RBC % 0 Sodium Potassium Chloride Carbon Dioxide Anion Gap BUN Creatinine Est GFR (CKD-EPI)AfAm Est GFR (CKD-EPI)NonAf POC Glucometer 74 95 Random Glucose Calcium Phosphorus Magnesium Total Bilirubin AST ALT Alkaline Phosphatase Total Protein Albumin TSH Free T4 07/13/20 07/13/20 07/13/20 05:30 05:46 13:53 WBC RBC Hgb Hct MCV MCH MCHC RDW Plt Count MPV Absolute Neuts (auto) Neutrophils % Lymphocytes % Monocytes % Eosinophils % Basophils % Nucleated RBC % Sodium 134 L Potassium 3.5 Chloride 108 H Carbon Dioxide 20 L Anion Gap 7 L BUN 18.8 H Creatinine < 0.2 L Est GFR (CKD-EPI)AfAm 197.85 Est GFR (CKD-EPI)NonAf 170.70 POC Glucometer 85 67 Random Glucose 84 Calcium 6.2 L* Phosphorus 2.7 Magnesium 1.6 L Total Bilirubin 0.5 AST 28 ALT 104 H Alkaline Phosphatase 369 H Total Protein 4.1 L Albumin 1.0 L TSH 6.61 H Free T4 0.46 L 07/13/20 07/13/20 15:29 18:26 WBC RBC Hgb Hct MCV MCH MCHC RDW Plt Count MPV Absolute Neuts (auto) Neutrophils % Lymphocytes % Monocytes % Eosinophils % Basophils % Nucleated RBC % Sodium Potassium Chloride Carbon Dioxide Anion Gap BUN Creatinine Est GFR (CKD-EPI)AfAm Est GFR (CKD-EPI)NonAf POC Glucometer 70 96 Random Glucose Calcium Phosphorus Magnesium Total Bilirubin AST ALT Alkaline Phosphatase Total Protein Albumin TSH Free T4 Active Medications Generic Name Dose Route Start Last Admin Trade Name Freq PRN Reason Stop Dose Admin Banana Based Medical Food 1 packet 07/10/20 22:00 07/13/20 14:11 Banatrol Plus Powder Packet GT 1 packet TID RAUL Administration Dextrose 12.5 gm 07/08/20 07:08 07/08/20 07:38 D50w (Vial) - IVPUSH 12.5 gm PRN PRN Administration HYPOGLYCEMIA Folic Acid 1 mg 07/06/20 10:00 07/13/20 09:48 Folic Acid - NGT 1 mg DAILY RAUL Administration Heparin Sodium (Porcine) 5,000 unit 07/10/20 22:00 07/13/20 14:11 Heparin - SQ 5,000 unit TID RAUL Administration Piperacillin Sod/Tazobactam 50 mls @ 100 mls/hr 07/02/20 18:00 07/13/20 17:39 Sod 3.375 gm/ Dextrose IVPB 100 mls/hr Q8H-IV RAUL Administration Protocol Vasopressin 40 units/ Sodium 100 mls @ 5 mls/hr 07/08/20 07:00 07/13/20 18:30 Chloride IVPB 2 units/hr ASDIR RAUL 5 mls/hr Titration Protocol 2 UNITS/HR Midazolam HCl 100 mg/ Sodium 100 mls @ 1 mls/hr 07/08/20 07:15 07/13/20 15:53 Chloride IVPB 7 mg/hr TITR RAUL 7 mls/hr Administration Protocol 1 MG/HR Dextrose/Lactated Ringer's 20 meq in 1,000 mls @ 30 mls/hr 07/12/20 23:30 07/12/20 23:33 D5-Lr+20 Meq Kcl - IV 30 mls/hr ASDIR RAUL Administration Morphine Sulfate 2 mg 07/12/20 13:16 07/12/20 14:55 Morphine Sulfate IVPUSH 2 mg Q6H PRN Administration PAIN LEVEL 7 - 10 Multivitamins/Minerals 15 ml 07/06/20 11:45 07/13/20 09:48 Certavite-Antioxidant Liquid NGT 15 ml DAILY RAUL Administration Potassium Phos/Sodium Phos 1 packet 07/09/20 14:00 07/13/20 14:11 Phos-Nak Packet - PO 1 packet TID RAUL Administration Thiamine HCl 100 mg 07/11/20 12:45 07/13/20 09:59 Vitamin B1 Injection - IVPB 100 mg DAILY RAUL Administration ASSESSMENT/PLAN: 34 yo female coming in to ICU due to possible sepsis due to UTI and PNA, Refeeding syndrome, and SBO Neuro - Altered Mental Status- Most likely due to hypoglycemia. - Pt now intubated and sedated on midazolam. Started Morphine Prn due to pain. Cardiac - HTN- will hold bp meds - Monitoring BP keep >65. - on 2 of vasopressin Resp - pt has history of asthma- will give albuterol if pt has asthma - Pt was tachypnic and having trouble breathing so was intubated 07/04 now saturating at 100% - pts vent settings RR 15, Vt: 350 FiO2: 40% PEEP 5. GI - SBO - Appreciate Surgery consult - Will do NG tube PRN - WIll keep pt NPO and give IV hydration - CT of abd/pelvis with oral contrast- SBO with moderate improvement - xray 07/06- shows moderate improvement of SBO - Appreciate GI consult - pt having massive diarrhea so added banana flakes to diet and pt diarrhea has improved slightly - pt feeds have been advanced to 30 cc/hr under dietary recommendations. PT feeds were held due to residual of 380 but restarted after bowel movement will maintain feeds at 30 and will up feeds to 40 tomorrow via dietary recommendation and possible change of feeds - repeat labs improved - Repleted K phos, mg, and calcium--> Monitor e-lyes closely & replete prn --> keep K>4, Mg>2, PO4 > 3.5. - 07/13 K was normal but MG and phosphate were low so repleted - monitor lytes closely Heme - Pt hemoglobin 8.1 will cont to monitor - will continue to monitor - Pt has postive FOBT ID - Sepsis secondary UTI vs Right sided PNA - Treating via zosyn - ID consult appreciated - WBC has plateaued at 12. Endocrine - Hypoglycemia vs refeeding syndrome - Nutirition consult appreciated who states keep daily glucose under 150gm a day - pt keeps going hypoglycemic will monitor q2hr and give more glucose if hypoglycemic and symptomatic (give only half of D25) - vital 1.2 now at 30cc Pt has increased diarrhea possibly due to increased feeds. Goal rate 42. FEN - monitor electrolytes including phosphate and magnesium possible refeeding syndrome Lines - central line in RIJ 07/10 PPx - DVT- heparin 5000 units per TID - Protonix held due to hypomagnesmia Dispo - GOC of care discussed with mother who wants everything for child. Ethics has been consulted for case Visit type - Emergency Visit Emergency Visit: Yes ED Registration Date: 07/01/20 Care time: The patient presented to the Emergency Department on the above date and was hospitalized for further evaluation of their emergent condition. - New Patient This patient is new to me today: No - Critical Care Critical Care patient: Yes Total Critical Care Time (in minutes): 36 Critical Care Statement: The care of this patient involved high complexity decision making to prevent further life threatening deterioration of the patient's condition and/or to evaluate & treat vital organ system(s) failure or risk of failure. ATTENDING PHYSICIAN STATEMENT I saw and evaluated the patient. I reviewed the resident's note and discussed the case with the resident. I agree with the resident's findings and plan as documented. SUBJECTIVE: OBJECTIVE: ASSESSMENT AND PLAN:
--- NOTE | 2020-07-13 22:20 | PN ---
Progress Note, Physician - Current Medication List Current Medications: Active Medications Banana Based Medical Food (Banatrol Plus Powder Packet) 1 packet GT TID RAUL Last Admin: 07/13/20 14:11 Dose: 1 packet Documented by: Dextrose (D50w (Vial) -) 12.5 gm IVPUSH PRN PRN PRN Reason: HYPOGLYCEMIA Last Admin: 07/08/20 07:38 Dose: 12.5 gm Documented by: Folic Acid (Folic Acid -) 1 mg NGT DAILY RAUL Last Admin: 07/13/20 09:48 Dose: 1 mg Documented by: Heparin Sodium (Porcine) (Heparin -) 5,000 unit SQ TID RAUL Last Admin: 07/13/20 14:11 Dose: 5,000 unit Documented by: Piperacillin Sod/Tazobactam (Sod 3.375 gm/ Dextrose) 50 mls @ 100 mls/hr IVPB Q8H-IV RAUL; Protocol Last Admin: 07/13/20 17:39 Dose: 100 mls/hr Documented by: Vasopressin 40 units/ Sodium (Chloride) 100 mls @ 5 mls/hr IVPB ASDIR RAUL; Protocol Last Titration: 07/13/20 18:30 Dose: 2 units/hr, 5 mls/hr Documented by: Midazolam HCl 100 mg/ Sodium (Chloride) 100 mls @ 1 mls/hr IVPB TITR RAUL; Protocol Last Admin: 07/13/20 15:53 Dose: 7 mg/hr, 7 mls/hr Documented by: Dextrose/Lactated Ringer's (D5-Lr+20 Meq Kcl -) 20 meq in 1,000 mls @ 30 mls/hr IV ASDIR RAUL Last Admin: 07/12/20 23:33 Dose: 30 mls/hr Documented by: Morphine Sulfate (Morphine Sulfate) 2 mg IVPUSH Q6H PRN PRN Reason: PAIN LEVEL 7 - 10 Last Admin: 07/12/20 14:55 Dose: 2 mg Documented by: Multivitamins/Minerals (Certavite-Antioxidant Liquid) 15 ml NGT DAILY RAUL Last Admin: 07/13/20 09:48 Dose: 15 ml Documented by: Potassium Phos/Sodium Phos (Phos-Nak Packet -) 1 packet PO TID RAUL Last Admin: 07/13/20 14:11 Dose: 1 packet Documented by: Thiamine HCl (Vitamin B1 Injection -) 100 mg IVPB DAILY [facility] Last Admin: 07/13/20 09:59 Dose: 100 mg Documented by: - Objective Vital Signs: Vital Signs Temperature 97 F L 07/13/20 18:00 Pulse Rate 66 07/13/20 18:00 Respiratory Rate 17 07/13/20 20:20 Blood Pressure 85/63 L 07/13/20 18:00 O2 Sat by Pulse Oximetry (%) 100 07/13/20 20:20 Labs: CBC, BMP 07/13/20 05:30 07/13/20 05:30 INR, PTT INR 2.08 (0.83-1.09) H 07/06/20 08:05 Problem List - Problems (1) At risk for electrolyte imbalance Code(s): Z91.89 - OT PERSONAL RISK FACTORS, NOT ELSEWHERE CLASSIFIED (2) Sepsis Code(s): A41.9 - SEPSIS, UNSPECIFIED ORGANISM Qualifiers: Qualified Code(s): A41.9 - Sepsis, unspecified organism (3) SBO (small bowel obstruction) Code(s): K56.609 - UNSP INTESTNL OBST, UNSP TO PARTIAL VERSUS COMPLETE OBST (4) Respiratory failure Code(s): J96.90 - RESPIRATORY FAILURE, UNSP, UNSP W HYPOXIA OR HYPERCAPNIA (5) Liver cirrhosis, alcoholic Code(s): K70.30 - ALCOHOLIC CIRRHOSIS OF LIVER WITHOUT ASCITES (6) Hypoalbuminemia Code(s): E88.09 - OT DISORDERS OF PLASMA-PROTEIN METABOLISM, NEC (7) Substance abuse Code(s): F19.10 - OTHER PSYCHOACTIVE SUBSTANCE ABUSE, UNCOMPLICATED (8) Cachexia Code(s): R64 - CACHEXIA
[2020-07-14] MEDS: PIPERACILLIN/TAZOB 3.375 GM 3.375 GM in DEXTROSE 5%-WATER - 50 ML IVPB SCH ×3 (02:14→17:49)
[2020-07-14] MEDS ORDERED: MIDAZOLAM IN 0.9 % SOD.CHLORID 1 MG/1 ML PLAST..BAG ONE ×2 (05:36→17:46)
[2020-07-14] MEDS: BANATROL PLUS POWDER PACKET GT SCH ×3 (06:49→21:41)
[2020-07-14] MEDS: HEPARIN NA (PORCINE) 5,000 UNITS/ML 1ML VIAL SQ SCH ×3 (06:49→21:42)
[2020-07-14] MEDS: NAPH,MB-DB/K PH,MBDB POWDER PACKET PO SCH ×3 (06:49→21:41)
[2020-07-14 07:20] LABS: BASO % 0.1 % (0-2.0); EOS % 0.1 % (0-4.5); HEMATOCRIT 22.6 % (32.4-45.2); HEMOGLOBIN 7.7 GM/dL (10.7-15.3); LYMPH % 4.7 % (8-40); MCH 29.7 pg (25.7-33.7); MCHC 33.8 g/dl (32.0-36.0); MEAN CELL VOLUME 87.8 fl (80-96); MEAN PLT VOLUME 8.7 fl (7.5-11.1); MONO % 2.7 % (3.8-10.2); NEUT % 92.4 % (42.8-82.8); PLATELET COUNT 114 K/MM3 (134-434); RBC 2.58 M/mm3 (3.60-5.2); RDW 14.5 % (11.6-15.6); WHITE BLOOD COUNT 13.5 K/mm3 (4.0-10.0)
[2020-07-14 07:43] LABS: ALBUMIN 1.1 g/dl (3.4-5.0); ANION GAP 7 MMOL/L (8-16); BILIRUBIN,TOTAL 0.4 mg/dL (0.2-1); BLOOD UREA NITROGEN 18.5 mg/dL (7-18); CHLORIDE 109 mmol/L (98-107); CO2 21 mmol/L (21-32); CREATININE < 0.2 mg/dL (0.55-1.3); GLUCOSE,RANDOM 66 mg/dL (74-106); MAGNESIUM 1.9 mg/dL (1.8-2.4); PHOSPHOROUS 1.9 mg/dL (2.5-4.9); POTASSIUM 3.2 mmol/L (3.5-5.1); SGOT/AST 30 U/L (15-37); SGPT/ALT 85 U/L (13-61); SODIUM 137 mmol/L (136-145); TOT PROT 4.2 g/dl (6.4-8.2)
[2020-07-14 08:03] LABS: ALK PHOS 335 U/L (45-117)
[2020-07-14 08:17] LABS: CALCIUM 6.2 mg/dL (8.5-10.1)
[2020-07-14] MEDS ORDERED: MORPHINE SULFATE 2 MG/ML VIAL IVPUSH PRN (08:24)
[2020-07-14 09:20] LABS: ANISOCYTOSIS 1+; MACROCYTOSIS 0; PLATELET ESTIMATE DECREASED
--- NOTE | 2020-07-14 10:15 | PN ---
Teaching Attending Note Name of Resident: Yadira Hamilton ATTENDING PHYSICIAN STATEMENT I saw and evaluated the patient. I reviewed the resident's note and discussed the case with the resident. I agree with the resident's findings and plan as documented. SUBJECTIVE: Patient seen and examined in the ICU. Remains intubated and sedated. AC Mode of vent. PPlat : 10 6 units of Vasopressin for hemodynamic support. Intake & Output 07/11/20 07/12/20 07/13/20 07/14/20 23:59 23:59 23:59 23:59 Intake Total 2398 2884 2154 Output Total 630 225 800 200 Balance 1768 2659 1354 -200 Weight 73 lb 12.8 oz 68 lb 1.6 oz 66 lb 8 oz 68 lb 6.4 oz Last Vital Signs Temp Pulse Resp BP Pulse Ox 98.7 F 73 23 H 90/67 100 07/14/20 06:00 07/14/20 06:00 07/14/20 08:35 07/14/20 06:00 07/14/20 08:35 Active Medications Banana Based Medical Food (Banatrol Plus Powder Packet) 1 packet GT TID [facility] Last Admin: 07/14/20 06:49 Dose: 1 packet Documented by: Dextrose (D50w (Vial) -) 12.5 gm IVPUSH PRN PRN PRN Reason: HYPOGLYCEMIA Last Admin: 07/08/20 07:38 Dose: 12.5 gm Documented by: Folic Acid (Folic Acid -) 1 mg NGT DAILY [facility] Last Admin: 07/13/20 09:48 Dose: 1 mg Documented by: Heparin Sodium (Porcine) (Heparin -) 5,000 unit SQ TID RAUL Last Admin: 07/14/20 06:49 Dose: 5,000 unit Documented by: Piperacillin Sod/Tazobactam (Sod 3.375 gm/ Dextrose) 50 mls @ 100 mls/hr IVPB Q8H-IV RAUL; Protocol Last Admin: 07/14/20 02:14 Dose: 100 mls/hr Documented by: Vasopressin 40 units/ Sodium (Chloride) 100 mls @ 5 mls/hr IVPB ASDIR RAUL; Protocol Last Titration: 07/13/20 19:00 Dose: 2 units/hr, 5 mls/hr Documented by: Midazolam HCl 100 mg/ Sodium (Chloride) 100 mls @ 1 mls/hr IVPB TITR RAUL; Protocol Last Titration: 07/13/20 19:00 Dose: 7 mg/hr, 7 mls/hr Documented by: Dextrose/Lactated Ringer's (D5-Lr+20 Meq Kcl -) 20 meq in 1,000 mls @ 30 mls/hr IV ASDIR [facility] Last Admin: 07/13/20 19:00 Dose: 30 mls/hr Documented by: Morphine Sulfate (Morphine Sulfate) 2 mg IVPUSH Q6H PRN PRN Reason: PAIN LEVEL 7 - 10 Last Admin: 07/12/20 14:55 Dose: 2 mg Documented by: Morphine Sulfate (Morphine Sulfate) 1 mg IVPUSH Q6H PRN PRN Reason: PAIN LEVEL 6-10 Multivitamins/Minerals (Certavite-Antioxidant Liquid) 15 ml NGT DAILY [facility] Last Admin: 07/13/20 09:48 Dose: 15 ml Documented by: Potassium Phos/Sodium Phos (Phos-Nak Packet -) 1 packet PO TID [facility] Last Admin: 07/14/20 06:49 Dose: 1 packet Documented by: Thiamine HCl (Vitamin B1 Injection -) 100 mg IVPB DAILY [facility] Last Admin: 07/13/20 09:59 Dose: 100 mg Documented by: GEN: Wasted, intubated & sedated HEENT: temporal wasting, sclera slightly icteric, dry MM PULM: Vented, Clear Heart: RRR ABD: scaphoid, (+) BS, S/S N/T SKIN: pale, cool, w/ multiple small patches of ecchymosis in different stages of healing EXT: peripheral edema Laboratory Results - last 24 hr 07/13/20 07/13/20 07/13/20 05:30 13:53 15:29 WBC RBC Hgb Hct MCV MCH MCHC RDW Plt Count MPV Absolute Neuts (auto) Neutrophils % Neutrophils % (Manual) Band Neutrophils % Lymphocytes % Lymphocytes % (Manual) Monocytes % Monocytes % (Manual) Eosinophils % Eosinophils % (Manual) Basophils % Basophils % (Manual) Myelocytes % (Man) Promyelocytes % (Man) Blast Cells % (Manual) Nucleated RBC % Metamyelocytes Hypochromia Platelet Estimate Polychromasia Anisocytosis Microcytosis Macrocytosis [place] Cells Fragmented RBCs Sodium Potassium Chloride Carbon Dioxide Anion Gap BUN Creatinine Est GFR (CKD-EPI)AfAm Est GFR (CKD-EPI)NonAf POC Glucometer 67 70 Random Glucose Calcium Phosphorus Magnesium Total Bilirubin AST ALT Alkaline Phosphatase Total Protein Albumin Free T3 1.0 L 07/13/20 07/13/20 07/14/20 18:26 23:34 05:14 WBC RBC Hgb Hct MCV MCH MCHC RDW Plt Count MPV Absolute Neuts (auto) Neutrophils % Neutrophils % (Manual) Band Neutrophils % Lymphocytes % Lymphocytes % (Manual) Monocytes % Monocytes % (Manual) Eosinophils % Eosinophils % (Manual) Basophils % Basophils % (Manual) Myelocytes % (Man) Promyelocytes % (Man) Blast Cells % (Manual) Nucleated RBC % Metamyelocytes Hypochromia Platelet Estimate Polychromasia Anisocytosis Microcytosis Macrocytosis Ho Cells Fragmented RBCs Sodium Potassium Chloride Carbon Dioxide Anion Gap BUN Creatinine Est GFR (CKD-EPI)AfAm Est GFR (CKD-EPI)NonAf POC Glucometer 96 120 71 Random Glucose Calcium Phosphorus Magnesium Total Bilirubin AST ALT Alkaline Phosphatase Total Protein Albumin Free T3 07/14/20 07/14/20 05:16 05:16 WBC 13.5 H RBC 2.58 L Hgb 7.7 L Hct 22.6 L MCV 87.8 MCH 29.7 MCHC 33.8 RDW 14.5 Plt Count 114 L D MPV 8.7 D Absolute Neuts (auto) 12.5 H Neutrophils % 92.4 H Neutrophils % (Manual) 93.1 H Band Neutrophils % 0.0 Lymphocytes % 4.7 L D Lymphocytes % (Manual) 5.9 L Monocytes % 2.7 L Monocytes % (Manual) 1 L Eosinophils % 0.1 Eosinophils % (Manual) 0.0 D Basophils % 0.1 Basophils % (Manual) 0.0 Myelocytes % (Man) 0 Promyelocytes % (Man) 0 Blast Cells % (Manual) 0 Nucleated RBC % 0 Metamyelocytes 0 Hypochromia 0 Platelet Estimate Decreased Polychromasia 0 Anisocytosis 1+ Microcytosis 1+ Macrocytosis 0 Ho Cells 1+ Fragmented RBCs 1+ Sodium 137 Potassium 3.2 L Chloride 109 H Carbon Dioxide 21 Anion Gap 7 L BUN 18.5 H Creatinine < 0.2 L Est GFR (CKD-EPI)AfAm 197.85 Est GFR (CKD-EPI)NonAf 170.70 POC Glucometer Random Glucose 66 L Calcium 6.2 L* Phosphorus 1.9 L Magnesium 1.9 Total Bilirubin 0.4 AST 30 ALT 85 H Alkaline Phosphatase 335 H Total Protein 4.2 L Albumin 1.1 L Free T3 ASSESS: -Acute Hypoxic Respiratory Failure due to Aspiration PNA -Liver Failure -Bone Marrow Failure -MSOF -UTI -Sepsis -Hyponatremia -SBO -Alcohol/Heroin Abuse -Anemia -FTT -Severe Protein Calorie Malnutrition -Refeeding Syndrome PLAN: - AC Mode of vent - Continue Enteral feeds as tolerated - Monitor off Fentanyl - Monitor e-lyes closely & replete prn --> keep K>4, Mg>2, PO4 > 3.5 - continue Zosyn for UTI +/- ASP PNA - f/u cultures - titrate O2 to keep SpO2 >90% - Sedation vacation - Heparin SQ for DVT prophylaxis - continue ICU monitoring - Prognosis is grim --> Will need to discuss further GOC with family Dr Babb Critical care time spent in reviewing chart, evaluating patient and formulating plan - 36 minutes.
[2020-07-14] MEDS ORDERED: PIPERACILLIN/TAZOBACTAM 3.375 GM VIAL IVPB ONE ×2 (10:37→17:41)
[2020-07-14] MEDS ORDERED: DEXTROSE 5%-WATER - 50 ML IVPB ONE ×2 (10:37→17:41)
[2020-07-14] MEDS: THIAMINE HCL 200 MG/2 ML VIAL IVPB SCH (10:45)
[2020-07-14] MEDS ORDERED: PT OWN MED DRAWER 7, Y5N ONE ×2 (10:49→18:31)
[2020-07-14] MEDS: FOLIC ACID 1 MG TABLET (FP) NGT SCH (10:49)
[2020-07-14] MEDS: VASOPRESSIN 40 UNITS in SODIUM CHLORIDE 98 ML IVPB SCH ×2 (10:50→21:58)
[2020-07-14] MEDS: MULTIVIT-MINERALS ORAL LIQUID NGT SCH (10:50)
[2020-07-14] MEDS: MIDAZOLAM 100 MG in SODIUM CHLORIDE 100 ML IVPB SCH ×2 (10:51→17:49)
[2020-07-14] MEDS ORDERED: DEXTROSE 50%-WATER 25 GM/50 ML DISP.SYRIN ONE (12:41)
[2020-07-14] MEDS ORDERED: DEXTROSE 50%-WATER - 25 GM/50 ML VIAL IVPUSH ONE (13:00)
--- NOTE | 2020-07-14 15:41 | PN ---
Progress Note, Physician History of Present Illness: Pt seen and examined at bedside. She remains in the ICU. She remains vented. - Current Medication List Current Medications: Active Medications Banana Based Medical Food (Banatrol Plus Powder Packet) 1 packet GT TID RAUL Last Admin: 07/14/20 14:36 Dose: 1 packet Documented by: Dextrose (D50w (Vial) -) 12.5 gm IVPUSH PRN PRN PRN Reason: HYPOGLYCEMIA Last Admin: 07/08/20 07:38 Dose: 12.5 gm Documented by: Folic Acid (Folic Acid -) 1 mg NGT DAILY RAUL Last Admin: 07/14/20 10:49 Dose: 1 mg Documented by: Heparin Sodium (Porcine) (Heparin -) 5,000 unit SQ TID RAUL Last Admin: 07/14/20 14:40 Dose: 5,000 unit Documented by: Piperacillin Sod/Tazobactam (Sod 3.375 gm/ Dextrose) 50 mls @ 100 mls/hr IVPB Q8H-IV RAUL; Protocol Last Admin: 07/14/20 10:45 Dose: 100 mls/hr Documented by: Vasopressin 40 units/ Sodium (Chloride) 100 mls @ 5 mls/hr IVPB ASDIR RAUL; Protocol Last Admin: 07/14/20 10:50 Dose: Not Given Documented by: Midazolam HCl 100 mg/ Sodium (Chloride) 100 mls @ 1 mls/hr IVPB TITR RAUL; Protocol Last Admin: 07/14/20 10:51 Dose: Not Given Documented by: Dextrose/Lactated Ringer's (D5-Lr+20 Meq Kcl -) 20 meq in 1,000 mls @ 30 mls/hr IV ASDIR RAUL Last Admin: 07/13/20 19:00 Dose: 30 mls/hr Documented by: Morphine Sulfate (Morphine Sulfate) 2 mg IVPUSH Q6H PRN PRN Reason: PAIN LEVEL 7 - 10 Last Admin: 07/12/20 14:55 Dose: 2 mg Documented by: Morphine Sulfate (Morphine Sulfate) 1 mg IVPUSH Q6H PRN PRN Reason: PAIN LEVEL 6-10 Multivitamins/Minerals (Certavite-Antioxidant Liquid) 15 ml NGT DAILY RAUL Last Admin: 07/14/20 10:50 Dose: 15 ml Documented by: Potassium Phos/Sodium Phos (Phos-Nak Packet -) 1 packet PO TID RAUL Last Admin: 07/14/20 14:36 Dose: 1 packet Documented by: Thiamine HCl (Vitamin B1 Injection -) 100 mg IVPB DAILY RAUL Last Admin: 07/14/20 10:45 Dose: 100 mg Documented by: - Objective Vital Signs: Vital Signs Temperature 98.7 F 07/14/20 06:00 Pulse Rate 73 07/14/20 06:00 Respiratory Rate 23 H 07/14/20 08:35 Blood Pressure 90/67 07/14/20 06:00 O2 Sat by Pulse Oximetry (%) 100 07/14/20 08:35 Constitutional: Yes: Calm, Cachectic HENT: Yes: Atraumatic Neck: Yes: Supple Cardiovascular: Yes: S1, S2 Respiratory: Yes: Mechanically Ventilated Gastrointestinal: Yes: Normal Bowel Sounds, Soft Genitourinary: Yes: Incontinence Musculoskeletal: Yes: Muscle Weakness Edema: No Neurological: Yes: Lethargy Labs: CBC, BMP 07/14/20 05:16 07/14/20 05:16 INR, PTT INR 2.08 (0.83-1.09) H 07/06/20 08:05 Problem List - Problems (1) Hypoglycemia Code(s): E16.2 - HYPOGLYCEMIA, UNSPECIFIED (2) Sepsis Code(s): A41.9 - SEPSIS, UNSPECIFIED ORGANISM Qualifiers: Sepsis type: sepsis due to unspecified organism Sepsis acute organ dysfunction status: unspecified Qualified Code(s): A41.9 - Sepsis, unspecified organism (3) Hypoalbuminemia Code(s): E88.09 - OTH DISORDERS OF PLASMA-PROTEIN METABOLISM, NEC (4) Hyponatremia Code(s): E87.1 - HYPO-OSMOLALITY AND HYPONATREMIA Assessment/Plan Current Medications Generic Name Dose Route Start Last Admin Trade Name Freq PRN Reason Stop Dose Admin Banana Based Medical Food 1 packet 07/10/20 22:00 07/14/20 14:36 Banatrol Plus Powder Packet GT 1 packet TID [facility] Administration Dextrose 12.5 gm 07/08/20 07:08 07/08/20 07:38 D50w (Vial) - IVPUSH 12.5 gm PRN PRN Administration HYPOGLYCEMIA Folic Acid 1 mg 07/06/20 10:00 07/14/20 10:49 Folic Acid - NGT 1 mg DAILY RAUL Administration Heparin Sodium (Porcine) 5,000 unit 07/10/20 22:00 07/14/20 14:40 Heparin - SQ 5,000 unit TID RAUL Administration Piperacillin Sod/Tazobactam 50 mls @ 100 mls/hr 07/02/20 18:00 07/14/20 10:45 Sod 3.375 gm/ Dextrose IVPB 100 mls/hr Q8H-IV RAUL Administration Protocol Vasopressin 40 units/ Sodium 100 mls @ 5 mls/hr 07/08/20 07:00 07/14/20 10:50 Chloride IVPB Not Given ASDIR RAUL Protocol 2 UNITS/HR Midazolam HCl 100 mg/ Sodium 100 mls @ 1 mls/hr 07/08/20 07:15 07/14/20 10:51 Chloride IVPB Not Given TITR RAUL Protocol 1 MG/HR Dextrose/Lactated Ringer's 20 meq in 1,000 mls @ 30 mls/hr 07/12/20 23:30 07/13/20 19:00 D5-Lr+20 Meq Kcl - IV 30 mls/hr ASDIR RAUL Administration Morphine Sulfate 2 mg 07/12/20 13:16 07/12/20 14:55 Morphine Sulfate IVPUSH 2 mg Q6H PRN Administration PAIN LEVEL 7 - 10 Morphine Sulfate 1 mg 07/14/20 08:24 Morphine Sulfate IVPUSH Q6H PRN PAIN LEVEL 6-10 Multivitamins/Minerals 15 ml 07/06/20 11:45 07/14/20 10:50 Certavite-Antioxidant Liquid NGT 15 ml DAILY RAUL Administration Potassium Phos/Sodium Phos 1 packet 07/09/20 14:00 07/14/20 14:36 Phos-Nak Packet - PO 1 packet TID RAUL Administration Thiamine HCl 100 mg 07/11/20 12:45 07/14/20 10:45 Vitamin B1 Injection - IVPB 100 mg DAILY RAUL Administration Impression 1. azotemia 2. hyponatremia 3. hyperkalemia 4. hypotension 5. sepsis 6. sbo 7. uti 8. liver cirrhosis 9. hypoalbuminemia 10. etoh abuse 11. substance abuse 12. psoriasis 13. acute resp failure 14. malnutrition Plan - replace lytes - vent support - cont feeds - discussed with ICU - monitor bp, maintain map 65
--- NOTE | 2020-07-14 16:03 | PN ---
Physical Exam: SUBJECTIVE: Patient seen and examined this morning. Very cachectic with increased temporal wasting. Patient trying to talk but is too weak. Blinking 1x for yes for pain. OBJECTIVE: Vital Signs Temp Pulse Resp BP Pulse Ox 98.7 F 73 16 90/67 100 07/14/20 06:00 07/14/20 06:00 07/14/20 13:00 07/14/20 06:00 07/14/20 08:35 GENERAL: Intubated, alert, too weak to move HEAD: No signs of trauma, temporal wasting EYES: PERRLA, EOMI, sclera anicteric ENT: intubated, ET tube in place NECK: supple LUNGS: dec breath sounds at bilateral bases HEART: RRR normal S1 and S2, ABDOMEN: soft, extremely emaciated EXTREMITIES : cachectic and weeping with bilateral pitting edema in upper and lower ext NEUROLOGICAL: Pt able to comply to commands SKIN: thin, fragile Intake & Output 07/13/20 07/14/20 07/14/20 23:59 07:59 15:59 Intake Total 1410 Output Total 350 200 Balance 1060 -200 Weight 68 lb 6.4 oz Intake: IV 900 D5-LR+20 MEQ KCL - 20 meq 612 In 1,000 ml @ 30 mls/hr IV ASDIR RAUL Rx#: [id number] Pitressin - 40 Units In 120 Normal Saline - 98 ml @ 2 UNITS/HR 5 mls/hr IVPB ASDIR RAUL Rx#:[id number] Versed - 100 mg In Normal 168 Saline - 100 ml @ 1 MG/ HR 1 mls/hr IVPB TITR RAUL Rx#:[id number] IVPB 150 Tube Feeding 360 Output: Urine 350 200 Uribe 350 200 Other: Voiding Method Indwelling Catheter Weight Measurement Method Built in [facility] Laboratory Results - last 24 hr 07/13/20 07/13/20 07/13/20 05:30 18:26 23:34 WBC RBC Hgb Hct MCV MCH MCHC RDW Plt Count MPV Absolute Neuts (auto) Neutrophils % Neutrophils % (Manual) Band Neutrophils % Lymphocytes % Lymphocytes % (Manual) Monocytes % Monocytes % (Manual) Eosinophils % Eosinophils % (Manual) Basophils % Basophils % (Manual) Myelocytes % (Man) Promyelocytes % (Man) Blast Cells % (Manual) Nucleated RBC % Metamyelocytes Hypochromia Platelet Estimate Polychromasia Anisocytosis Microcytosis Macrocytosis Ho Cells Fragmented RBCs Sodium Potassium Chloride Carbon Dioxide Anion Gap BUN Creatinine Est GFR (CKD-EPI)AfAm Est GFR (CKD-EPI)NonAf POC Glucometer 96 120 Random Glucose Calcium Phosphorus Magnesium Total Bilirubin AST ALT Alkaline Phosphatase Total Protein Albumin Free T3 1.0 L 07/14/20 07/14/20 07/14/20 05:14 05:16 05:16 WBC 13.5 H RBC 2.58 L Hgb 7.7 L Hct 22.6 L MCV 87.8 MCH 29.7 MCHC 33.8 RDW 14.5 Plt Count 114 L D MPV 8.7 D Absolute Neuts (auto) 12.5 H Neutrophils % 92.4 H Neutrophils % (Manual) 93.1 H Band Neutrophils % 0.0 Lymphocytes % 4.7 L D Lymphocytes % (Manual) 5.9 L Monocytes % 2.7 L Monocytes % (Manual) 1 L Eosinophils % 0.1 Eosinophils % (Manual) 0.0 D Basophils % 0.1 Basophils % (Manual) 0.0 Myelocytes % (Man) 0 Promyelocytes % (Man) 0 Blast Cells % (Manual) 0 Nucleated RBC % 0 Metamyelocytes 0 Hypochromia 0 Platelet Estimate Decreased Polychromasia 0 Anisocytosis 1+ Microcytosis 1+ Macrocytosis 0 Ho Cells 1+ Fragmented RBCs 1+ Sodium 137 Potassium 3.2 L Chloride 109 H Carbon Dioxide 21 Anion Gap 7 L BUN 18.5 H Creatinine < 0.2 L Est GFR (CKD-EPI)AfAm 197.85 Est GFR (CKD-EPI)NonAf 170.70 POC Glucometer 71 Random Glucose 66 L Calcium 6.2 L* Phosphorus 1.9 L Magnesium 1.9 Total Bilirubin 0.4 AST 30 ALT 85 H Alkaline Phosphatase 335 H Total Protein 4.2 L Albumin 1.1 L Free T3 07/14/20 07/14/20 12:39 13:30 WBC RBC Hgb Hct MCV MCH MCHC RDW Plt Count MPV Absolute Neuts (auto) Neutrophils % Neutrophils % (Manual) Band Neutrophils % Lymphocytes % Lymphocytes % (Manual) Monocytes % Monocytes % (Manual) Eosinophils % Eosinophils % (Manual) Basophils % Basophils % (Manual) Myelocytes % (Man) Promyelocytes % (Man) Blast Cells % (Manual) Nucleated RBC % Metamyelocytes Hypochromia Platelet Estimate Polychromasia Anisocytosis Microcytosis Macrocytosis Ho Cells Fragmented RBCs Sodium Potassium Chloride Carbon Dioxide Anion Gap BUN Creatinine Est GFR (CKD-EPI)AfAm Est GFR (CKD-EPI)NonAf POC Glucometer 41 174 Random Glucose Calcium Phosphorus Magnesium Total Bilirubin AST ALT Alkaline Phosphatase Total Protein Albumin Free T3 Active Medications Generic Name Dose Route Start Last Admin Trade Name Freq PRN Reason Stop Dose Admin Banana Based Medical Food 1 packet 07/10/20 22:00 07/14/20 14:36 Banatrol Plus Powder Packet GT 1 packet TID RAUL Administration Dextrose 12.5 gm 07/08/20 07:08 07/08/20 07:38 D50w (Vial) - IVPUSH 12.5 gm PRN PRN Administration HYPOGLYCEMIA Folic Acid 1 mg 07/06/20 10:00 07/14/20 10:49 Folic Acid - NGT 1 mg DAILY RAUL Administration Heparin Sodium (Porcine) 5,000 unit 07/10/20 22:00 07/14/20 14:40 Heparin - SQ 5,000 unit TID RAUL Administration Piperacillin Sod/Tazobactam 50 mls @ 100 mls/hr 07/02/20 18:00 07/14/20 10:45 Sod 3.375 gm/ Dextrose IVPB 100 mls/hr Q8H-IV RAUL Administration Protocol Vasopressin 40 units/ Sodium 100 mls @ 5 mls/hr 07/08/20 07:00 07/14/20 10:50 Chloride IVPB Not Given ASDIR RAUL Protocol 2 UNITS/HR Midazolam HCl 100 mg/ Sodium 100 mls @ 1 mls/hr 07/08/20 07:15 07/14/20 10:51 Chloride IVPB Not Given TITR RAUL Protocol 1 MG/HR Dextrose/Lactated Ringer's 20 meq in 1,000 mls @ 30 mls/hr 07/12/20 23:30 07/13/20 19:00 D5-Lr+20 Meq Kcl - IV 30 mls/hr ASDIR RAUL Administration Morphine Sulfate 2 mg 07/12/20 13:16 07/12/20 14:55 Morphine Sulfate IVPUSH 2 mg Q6H PRN Administration PAIN LEVEL 7 - 10 Morphine Sulfate 1 mg 07/14/20 08:24 Morphine Sulfate IVPUSH Q6H PRN PAIN LEVEL 6-10 Multivitamins/Minerals 15 ml 07/06/20 11:45 07/14/20 10:50 Certavite-Antioxidant Liquid NGT 15 ml DAILY RAUL Administration Potassium Phos/Sodium Phos 1 packet 07/09/20 14:00 07/14/20 14:36 Phos-Nak Packet - PO 1 packet TID RAUL Administration Thiamine HCl 100 mg 07/11/20 12:45 07/14/20 10:45 Vitamin B1 Injection - IVPB 100 mg DAILY RAUL Administration ASSESSMENT/PLAN: This is a 34 year old female with PMH of cachexia, polysubstance abuse (ETOH, heroin), cirrhosis, HTN, psoriasis, and asthma. She presented to the ER after an episode of hypoglycemia at home, and was BIBEMS with hypoglycemia, hypotension, hypoxia, hypothermia. Admitted to ICU due to possible sepsis due to UTI and PNA, Refeeding syndrome, and SBO. Neuro - lethargic, arousable but weak - Pt now intubated and on versed Cardiac - Hx of HTN >> hold bp meds - Monitoring BP keep > 65. - on 2 of vasopressin Resp - pt has history of asthma/ albuterol PRN - intubated 07/04 GI - pt having massive diarrhea so added banana flakes to diet and pt diarrhea has improved slightly - SBO improved - Transaminitis trending down, continue to monitor - Pt had + FOBT Heme - Pt hemoglobin 7.7 will cont to monitor ID - Sepsis secondary UTI vs Right sided PNA - ID consult appreciated continue Zosyn day 13 monitor wbc if continues to increase will add empiric Vancomycin Endocrine - patient needed 25mg bolus dextrose today, continue to monitor sugars - TSH elevated, fT4 low, reevaluate once patient is more stable FEN - monitor electrolytes including phosphate and magnesium possible refeeding syndrome - keep K> 4, Mg> 2, PO4 > 3.5. - feeds 30 cc/hr, goal rate 42cc/hr - feeds were for an unknown reason turned off last night. Patient restarted on feeds today, dietary unable to advance due to time off feeds. Lines - central line in FLJ 07/10 PPx - DVT- heparin 5000 units per TID - Protonixs held due to hypomagnesmia Dispo Ethics: Medical futility is a recurrent question for recent ICU patients. We are in fact going to have an Ethics Committee meeting via Zoom on Jul at 12:30 on this subject. Anyone may participate. The underlying issue is what are the goals of care: for example in this case if the patient had previously expressed that she wanted all treatments and supportive care continued as long as she was still alive in spite of possible pain or possible suffering during invasive procedures,then the current care should be continued as long as the treatments are not harmful, contraindicated or against accepted medical standards. If she did not leave any direction then her Mom would have to make those decisions unless she had a domestic partner or child of her own as she is listed as single. Naturally there is room for interpretation of these words and ethics is often 51% VS 49% in decision making. We have to make certain that our opinion about what is futile is not forced upon the patient or their surrogate. If however the patient has said if he/she would not want to continue care if they were not to return to their normal sate of health or function then supportive care would not be indicated. I will follow. Visit type - Emergency Visit Emergency Visit: Yes ED Registration Date: 07/01/20 Care time: The patient presented to the Emergency Department on the above date and was hospitalized for further evaluation of their emergent condition. - New Patient This patient is new to me today: No - Critical Care Critical Care patient: Yes Total Critical Care Time (in minutes): 35 Critical Care Statement: The care of this patient involved high complexity decision making to prevent further life threatening deterioration of the patient's condition and/or to evaluate & treat vital organ system(s) failure or risk of failure. - Discharge Referral Referred to [facility] Med [facility].C.: No ATTENDING PHYSICIAN STATEMENT I saw and evaluated the patient. I reviewed the resident's note and discussed the case with the resident. I agree with the resident's findings and plan as documented. SUBJECTIVE: OBJECTIVE: ASSESSMENT AND PLAN:
--- NOTE | 2020-07-14 16:31 | PN ---
Progress Note, Physician History of Present Illness: Pt remains intubated, on pressors. - Current Medication List Current Medications: Active Medications Banana Based Medical Food (Banatrol Plus Powder Packet) 1 packet GT TID RAUL Last Admin: 07/14/20 14:36 Dose: 1 packet Documented by: Dextrose (D50w (Vial) -) 12.5 gm IVPUSH PRN PRN PRN Reason: HYPOGLYCEMIA Last Admin: 07/08/20 07:38 Dose: 12.5 gm Documented by: Folic Acid (Folic Acid -) 1 mg NGT DAILY RAUL Last Admin: 07/14/20 10:49 Dose: 1 mg Documented by: Heparin Sodium (Porcine) (Heparin -) 5,000 unit SQ TID RAUL Last Admin: 07/14/20 14:40 Dose: 5,000 unit Documented by: Piperacillin Sod/Tazobactam (Sod 3.375 gm/ Dextrose) 50 mls @ 100 mls/hr IVPB Q8H-IV RAUL; Protocol Last Admin: 07/14/20 10:45 Dose: 100 mls/hr Documented by: Vasopressin 40 units/ Sodium (Chloride) 100 mls @ 5 mls/hr IVPB ASDIR RAUL; Protocol Last Admin: 07/14/20 10:50 Dose: Not Given Documented by: Midazolam HCl 100 mg/ Sodium (Chloride) 100 mls @ 1 mls/hr IVPB TITR RAUL; Protocol Last Admin: 07/14/20 10:51 Dose: Not Given Documented by: Dextrose/Lactated Ringer's (D5-Lr+20 Meq Kcl -) 20 meq in 1,000 mls @ 30 mls/hr IV ASDIR RAUL Last Admin: 07/13/20 19:00 Dose: 30 mls/hr Documented by: Morphine Sulfate (Morphine Sulfate) 2 mg IVPUSH Q6H PRN PRN Reason: PAIN LEVEL 7 - 10 Last Admin: 07/12/20 14:55 Dose: 2 mg Documented by: Morphine Sulfate (Morphine Sulfate) 1 mg IVPUSH Q6H PRN PRN Reason: PAIN LEVEL 6-10 Multivitamins/Minerals (Certavite-Antioxidant Liquid) 15 ml NGT DAILY RAUL Last Admin: 07/14/20 10:50 Dose: 15 ml Documented by: Potassium Phos/Sodium Phos (Phos-Nak Packet -) 1 packet PO TID RAUL Last Admin: 07/14/20 14:36 Dose: 1 packet Documented by: Thiamine HCl (Vitamin B1 Injection -) 100 mg IVPB DAILY [facility] Last Admin: 07/14/20 10:45 Dose: 100 mg Documented by: - Objective Vital Signs: Vital Signs Temperature 98.7 F 07/14/20 06:00 Pulse Rate 73 07/14/20 06:00 Respiratory Rate 16 07/14/20 13:00 Blood Pressure 90/67 07/14/20 06:00 O2 Sat by Pulse Oximetry (%) 100 07/14/20 08:35 Constitutional: Yes: No Distress Eyes: Yes: Conjunctiva Clear Cardiovascular: Yes: Regular Rate and Rhythm Respiratory: Yes: Regular, Mechanically Ventilated Gastrointestinal: Yes: Normal Bowel Sounds, Soft Genitourinary: Yes: Uribe Present Neurological: Yes: Other (sedated) Labs: CBC, BMP 07/14/20 05:16 07/14/20 05:16 INR, PTT INR 2.08 (0.83-1.09) H 07/06/20 08:05 Microbiology 07/11/20 22:00 Sputum - Endotrachea Suction/Ventilator Gram Stain - Final 07/11/20 22:00 Sputum - Endotrachea Suction/Ventilator Sputum Culture - Final Yeast Like Organism 07/11/20 23:45 Urine - Urine - Catheterized Urine Culture - Final Yeast Like Organism Pseudomonas Aeruginosa 07/11/20 23:45 Blood - Peripheral Venous Blood Culture - Preliminary NO GROWTH OBTAINED AFTER 48 HOURS, INCUBATION TO CONTINUE FOR 3 DAYS. 07/04/20 17:00 Sputum - Endotrachea Suction/Ventilator Gram Stain - Final 07/04/20 17:00 Sputum - Endotrachea Suction/Ventilator Sputum Culture - Fin al Yeast Like Organism 07/01/20 15:50 Blood - Peripheral Venous Blood Culture - Final NO GROWTH AFTER 5 DAYS INCUBATION 07/01/20 15:43 Blood - Peripheral Venous Blood Culture - Final NO GROWTH AFTER 5 DAYS INCUBATION 07/01/20 15:50 Urine - Urine Suprapubic Urine Culture - Final Pseudomonas Aeruginosa Escherichia Coli Enterococcus Avium - ....Imaging Chest X-ray: Report Reviewed Cat Scan: Report Reviewed Problem List - Problems (1) Bowel obstruction Code(s): K56.609 - UNSP INTESTNL OBST, UNSP TO PARTIAL VERSUS COMPLETE OBST (2) Hypothermia Code(s): T68.XXXA - HYPOTHERMIA, INITIAL ENCOUNTER (3) Pneumonia Code(s): J18.9 - PNEUMONIA, UNSPECIFIED ORGANISM (4) SBO (small bowel obstruction) Code(s): K56.609 - UNSP INTESTNL OBST, UNSP TO PARTIAL VERSUS COMPLETE OBST (5) Sepsis Code(s): A41.9 - SEPSIS, UNSPECIFIED ORGANISM Qualifiers: Sepsis type: sepsis due to unspecified organism Sepsis acute organ dysfunction status: unspecified Qualified Code(s): A41.9 - Sepsis, unspecified organism (6) UTI (urinary tract infection) Code(s): N39.0 - URINARY TRACT INFECTION, SITE NOT SPECIFIED Qualifiers: Urinary tract infection type: site unspecified Hematuria presence: with hematuria Qualified Code(s): N39.0 - Urinary tract infection, site not specified; R31.9 - Hematuria, unspecified (7) Alcoholic liver damage Code(s): K70.9 - ALCOHOLIC LIVER DISEASE, UNSPECIFIED (8) Cachexia Code(s): R64 - CACHEXIA (9) Lactic acid acidosis Code(s): E87.2 - ACIDOSIS (10) Substance abuse Code(s): F19.10 - OTHER PSYCHOACTIVE SUBSTANCE ABUSE, UNCOMPLICATED Assessment/Plan Acute respiratory failure on MV Sepsis/shock PNA, Possible Aspiration UTI SBO ETOH/Heroin abuse Failure to thrive Severe malnutrition Leukocytosis -- Pt remains intubated/on vasopressors -- imaging/culture results reviewed -- blood cultures negative -- afebrile, wbc trending up -- continue Zosyn, monitor wbc if continues to increase will add empiric Vancomycin -- prognosis poor cc time: 38 min
[2020-07-14] MEDS ORDERED: POTASSIUM CHLORIDE 20 MEQ PREMIX IVPB 100 ML IVPB ONE (16:52)
--- NOTE | 2020-07-14 22:28 | PN ---
Progress Note, Physician - Current Medication List Current Medications: Active Medications Banana Based Medical Food (Banatrol Plus Powder Packet) 1 packet GT TID RAUL Last Admin: 07/14/20 21:41 Dose: 1 packet Documented by: Dextrose (D50w (Vial) -) 12.5 gm IVPUSH PRN PRN PRN Reason: HYPOGLYCEMIA Last Admin: 07/08/20 07:38 Dose: 12.5 gm Documented by: Folic Acid (Folic Acid -) 1 mg NGT DAILY RAUL Last Admin: 07/14/20 10:49 Dose: 1 mg Documented by: Heparin Sodium (Porcine) (Heparin -) 5,000 unit SQ TID RAUL Last Admin: 07/14/20 21:42 Dose: 5,000 unit Documented by: Piperacillin Sod/Tazobactam (Sod 3.375 gm/ Dextrose) 50 mls @ 100 mls/hr IVPB Q8H-IV RAUL; Protocol Last Admin: 07/14/20 17:49 Dose: 100 mls/hr Documented by: Vasopressin 40 units/ Sodium (Chloride) 100 mls @ 5 mls/hr IVPB ASDIR RAUL; Protocol Last Admin: 07/14/20 21:58 Dose: 2 units/hr, 5 mls/hr Documented by: Midazolam HCl 100 mg/ Sodium (Chloride) 100 mls @ 1 mls/hr IVPB TITR RAUL; Protocol Last Admin: 07/14/20 17:49 Dose: 7 mg/hr, 7 mls/hr Documented by: Dextrose/Lactated Ringer's (D5-Lr+20 Meq Kcl -) 20 meq in 1,000 mls @ 30 mls/hr IV ASDIR RAUL Last Admin: 07/13/20 19:00 Dose: 30 mls/hr Documented by: Morphine Sulfate (Morphine Sulfate) 2 mg IVPUSH Q6H PRN PRN Reason: PAIN LEVEL 7 - 10 Last Admin: 07/12/20 14:55 Dose: 2 mg Documented by: Morphine Sulfate (Morphine Sulfate) 1 mg IVPUSH Q6H PRN PRN Reason: PAIN LEVEL 6-10 Multivitamins/Minerals (Certavite-Antioxidant Liquid) 15 ml NGT DAILY RAUL Last Admin: 07/14/20 10:50 Dose: 15 ml Documented by: Potassium Phos/Sodium Phos (Phos-Nak Packet -) 1 packet PO TID RAUL Last Admin: 07/14/20 21:41 Dose: 1 packet Documented by: Thiamine HCl (Vitamin B1 Injection -) 100 mg IVPB DAILY [facility] Last Admin: 07/14/20 10:45 Dose: 100 mg Documented by: - Objective Vital Signs: Vital Signs Temperature 97.6 F 07/14/20 20:05 Pulse Rate 88 07/14/20 21:58 Respiratory Rate 15 07/14/20 20:25 Blood Pressure 103/82 07/14/20 21:58 O2 Sat by Pulse Oximetry (%) 100 07/14/20 20:25 Labs: CBC, BMP 07/14/20 05:16 07/14/20 05:16 INR, PTT INR 2.08 (0.83-1.09) H 07/06/20 08:05 Problem List - Problems (1) At risk for electrolyte imbalance Code(s): Z91.89 - OT PERSONAL RISK FACTORS, NOT ELSEWHERE CLASSIFIED (2) Sepsis Code(s): A41.9 - SEPSIS, UNSPECIFIED ORGANISM Qualifiers: Sepsis type: sepsis due to unspecified organism Sepsis acute organ dysfunction status: unspecified Qualified Code(s): A41.9 - Sepsis, unspecified organism (3) SBO (small bowel obstruction) Code(s): K56.609 - UNSP INTESTNL OBST, UNSP TO PARTIAL VERSUS COMPLETE OBST (4) Respiratory failure Code(s): J96.90 - RESPIRATORY FAILURE, UNSP, UNSP W HYPOXIA OR HYPERCAPNIA (5) Liver cirrhosis, alcoholic Code(s): K70.30 - ALCOHOLIC CIRRHOSIS OF LIVER WITHOUT ASCITES (6) Hypoalbuminemia Code(s): E88.09 - OT DISORDERS OF PLASMA-PROTEIN METABOLISM, NEC (7) Substance abuse Code(s): F19.10 - OTHER PSYCHOACTIVE SUBSTANCE ABUSE, UNCOMPLICATED (8) Cachexia Code(s): R64 - CACHEXIA
[2020-07-15] MEDS ORDERED: DEXTROSE 5%-WATER - 50 ML IVPB ONE ×3 (00:31→17:23)
[2020-07-15] MEDS ORDERED: PIPERACILLIN/TAZOBACTAM 3.375 GM VIAL IVPB ONE ×3 (00:31→17:23)
[2020-07-15] MEDS: PIPERACILLIN/TAZOB 3.375 GM 3.375 GM in DEXTROSE 5%-WATER - 50 ML IVPB SCH ×3 (01:16→17:33)
[2020-07-15 07:20] LABS: HEMATOCRIT 22.9 % (32.4-45.2); HEMOGLOBIN 7.9 GM/dL (10.7-15.3); MCH 29.9 pg (25.7-33.7); MCHC 34.2 g/dl (32.0-36.0); MEAN CELL VOLUME 87.4 fl (80-96); PLATELET COUNT 151 K/MM3 (134-434); RBC 2.63 M/mm3 (3.60-5.2); RDW 14.5 % (11.6-15.6); WHITE BLOOD COUNT 12.4 K/mm3 (4.0-10.0)
[2020-07-15 07:48] LABS: ALBUMIN 1.1 g/dl (3.4-5.0); BILIRUBIN,TOTAL 0.3 mg/dL (0.2-1); BLOOD UREA NITROGEN 21.4 mg/dL (7-18); CREATININE 0.2 mg/dL (0.55-1.3); MAGNESIUM 1.7 mg/dL (1.8-2.4); POTASSIUM 3.4 mmol/L (3.5-5.1); TOT PROT 4.5 g/dl (6.4-8.2)
[2020-07-15] MEDS ORDERED: MAGNESIUM SULF 50% (8.12 MEQ/2 ML-1 GM VIAL) IVPB ONE (08:06)
[2020-07-15] MEDS ORDERED: MAGNESIUM SULFATE IN WATER 2 GM/50 ML IVPB IVPB ONE (08:15)
[2020-07-15] MEDS ORDERED: KCL 10 MEQ IVPB 10 MEQ/100 ML INFUS.BAG IVPB SCH (08:15)
[2020-07-15 08:16] LABS: CALCIUM 6.5 mg/dL (8.5-10.1)
[2020-07-15] MEDS ORDERED: SODIUM CHLORIDE IVPB ONE (09:00)
[2020-07-15] MEDS ORDERED: POTASSIUM PHOSPHATE IVPB ONE (09:00)
[2020-07-15] MEDS: MIDAZOLAM IN 0.9 % SOD.CHLORID 100 MG/100 ML PLAST..BAG IVPB SCH (09:37)
[2020-07-15] MEDS: FOLIC ACID 1 MG TABLET (FP) NGT SCH (09:38)
[2020-07-15] MEDS: THIAMINE HCL 200 MG/2 ML VIAL IVPB SCH (09:39)
[2020-07-15] MEDS: D5-LR+20 MEQ KCL - 20 MEQ/1,000 ML INFUS.BAG IV SCH ×2 (09:39→23:30)
[2020-07-15] MEDS: VASOPRESSIN 40 UNITS in SODIUM CHLORIDE 98 ML IVPB SCH (09:40)
[2020-07-15] MEDS: BANATROL PLUS POWDER PACKET GT SCH ×3 (09:40→21:44)
[2020-07-15] MEDS ORDERED: PT OWN MED DRAWER 7, Y5N ONE (09:58)
[2020-07-15] MEDS: MULTIVIT-MINERALS ORAL LIQUID NGT SCH (10:00)
[2020-07-15] MEDS ORDERED: POTASSIUM PHOSPHATE 30 MM in SODIUM CHLORIDE 500 ML IVPB ONE (10:30)
--- NOTE | 2020-07-15 12:34 | PN ---
Progress Note (short form) - Note Progress Note: Patient seen and examined in the ICU. Remains intubated and sedated. AC Mode of vent. 2 units of Vasopressin for hemodynamic support. Feeds : 30cc and tolerating. Intake & Output 07/12/20 07/13/20 07/14/20 07/15/20 23:59 23:59 23:59 23:59 Intake Total 2884 2154 744 914 Output Total 225 800 400 200 Balance 2659 1354 344 714 Weight 68 lb 1.6 oz 66 lb 8 oz 68 lb 6.4 oz Last Vital Signs Temp Pulse Resp BP Pulse Ox 97.2 F L 108 H 16 112/68 96 07/15/20 10:00 07/15/20 12:00 07/15/20 12:00 07/15/20 12:00 07/15/20 09:00 Active Medications Banana Based Medical Food (Banatrol Plus Powder Packet) 1 packet GT TID [facility]UL Last Admin: 07/15/20 09:40 Dose: 1 packet Documented by: Dextrose (D50w (Vial) -) 12.5 gm IVPUSH PRN PRN PRN Reason: HYPOGLYCEMIA Last Admin: 07/08/20 07:38 Dose: 12.5 gm Documented by: Folic Acid (Folic Acid -) 1 mg NGT DAILY [facility] Last Admin: 07/15/20 09:38 Dose: 1 mg Documented by: Heparin Sodium (Porcine) (Heparin -) 5,000 unit SQ TID [facility] Last Admin: 07/14/20 21:42 Dose: 5,000 unit Documented by: Piperacillin Sod/Tazobactam (Sod 3.375 gm/ Dextrose) 50 mls @ 100 mls/hr IVPB Q8H-IV [facility]UL; Protocol Last Admin: 07/15/20 09:41 Dose: 100 mls/hr Documented by: Vasopressin 40 units/ Sodium (Chloride) 100 mls @ 5 mls/hr IVPB ASDIR [facility]; Protocol Last Admin: 07/15/20 09:40 Dose: 2 units/hr, 5 mls/hr Documented by: Dextrose/Lactated Ringer's (D5-Lr+20 Meq Kcl -) 20 meq in 1,000 mls @ 30 mls/hr IV ASDIR [facility]UL Last Admin: 07/15/20 09:39 Dose: 30 mls/hr Documented by: Midazolam HCl (Midazolam 100mg/100ml-0.9%Nacl) 100 mg in 100 mls @ 1 mls/hr IVPB TITR [facility]UL; Protocol Last Admin: 07/15/20 09:37 Dose: 1 mg/hr, 1 mls/hr Documented by: Potassium Phosphate 30 mm/ (Sodium Chloride) 510 mls @ 85 mls/hr IVPB ONCE ONE Stop: 07/15/20 16:29 Last Admin: 07/15/20 12:22 Dose: 85 mls/hr Documented by: Morphine Sulfate (Morphine Sulfate) 1 mg IVPUSH Q6H PRN PRN Reason: PAIN LEVEL 6-10 Multivitamins/Minerals (Certavite-Antioxidant Liquid) 15 ml NGT DAILY [facility] Last Admin: 07/15/20 10:00 Dose: 15 ml Documented by: Potassium Phos/Sodium Phos (Phos-Nak Packet -) 1 packet PO TID [facility] Last Admin: 07/14/20 21:41 Dose: 1 packet Documented by: Thiamine HCl (Vitamin B1 Injection -) 100 mg IVPB DAILY [facility] Last Admin: 07/15/20 09:39 Dose: 100 mg Documented by: GEN: Wasted, intubated & sedated HEENT: temporal wasting, sclera slightly icteric, dry MM PULM: Vented, Clear Heart: RRR ABD: scaphoid, (+) BS, S/S N/T SKIN: pale, cool, w/ multiple small patches of ecchymosis in different stages of healing EXT: peripheral edema Laboratory Results - last 24 hr 07/14/20 07/14/20 07/14/20 12:39 13:30 16:50 WBC RBC Hgb Hct MCV MCH MCHC RDW Plt Count MPV Sodium Potassium Chloride Carbon Dioxide Anion Gap BUN Creatinine Est GFR (CKD-EPI)AfAm Est GFR (CKD-EPI)NonAf POC Glucometer 41 174 97 Random Glucose Calcium Phosphorus Magnesium Total Bilirubin AST ALT Alkaline Phosphatase Total Protein Albumin 07/14/20 07/15/20 07/15/20 22:12 05:30 05:30 WBC 12.4 H RBC 2.63 L Hgb 7.9 L Hct 22.9 L MCV 87.4 MCH 29.9 MCHC 34.2 RDW 14.5 Plt Count 151 D MPV 9.0 Sodium 135 L Potassium 3.4 L Chloride 108 H Carbon Dioxide 23 Anion Gap 5 L BUN 21.4 H Creatinine 0.2 L Est GFR (CKD-EPI)AfAm 197.84 Est GFR (CKD-EPI)NonAf 170.70 POC Glucometer 95 Random Glucose 113 H Calcium 6.5 L* Phosphorus 2.0 L Magnesium 1.7 L Total Bilirubin 0.3 AST 28 ALT 74 H Alkaline Phosphatase 333 H Total Protein 4.5 L Albumin 1.1 L 07/15/20 06:21 WBC RBC Hgb Hct MCV MCH MCHC RDW Plt Count MPV Sodium Potassium Chloride Carbon Dioxide Anion Gap BUN Creatinine Est GFR (CKD-EPI)AfAm Est GFR (CKD-EPI)NonAf POC Glucometer 117 Random Glucose Calcium Phosphorus Magnesium Total Bilirubin AST ALT Alkaline Phosphatase Total Protein Albumin ASSESS: -Acute Hypoxic Respiratory Failure due to Aspiration PNA -Liver Failure -Bone Marrow Failure -MSOF -UTI -Sepsis -Hyponatremia -SBO -Alcohol/Heroin Abuse -Anemia -FTT -Severe Protein Calorie Malnutrition -Refeeding Syndrome PLAN: - AC Mode of vent - Continue Enteral feeds as tolerated - Monitor off Fentanyl - Monitor e-lyes closely & replete prn - ABX per ID - Sedation vacation to assess mental status - Heparin SQ for DVT prophylaxis - continue ICU monitoring - Prognosis is grim --> Will need to discuss further GOC with family Dr Babb Critical care time spent in reviewing chart, evaluating patient and formulating plan - 36 minutes.
--- NOTE | 2020-07-15 14:04 | PN ---
Progress Note, Physician History of Present Illness: Pt seen and examined at bedside. She remains in the ICU. She remains intubated. - Current Medication List Current Medications: Active Medications Banana Based Medical Food (Banatrol Plus Powder Packet) 1 packet GT TID [facility] Last Admin: 07/15/20 09:40 Dose: 1 packet Documented by: Dextrose (D50w (Vial) -) 12.5 gm IVPUSH PRN PRN PRN Reason: HYPOGLYCEMIA Last Admin: 07/08/20 07:38 Dose: 12.5 gm Documented by: Folic Acid (Folic Acid -) 1 mg NGT DAILY [facility] Last Admin: 07/15/20 09:38 Dose: 1 mg Documented by: Heparin Sodium (Porcine) (Heparin -) 5,000 unit SQ TID [facility] Last Admin: 07/14/20 21:42 Dose: 5,000 unit Documented by: Piperacillin Sod/Tazobactam (Sod 3.375 gm/ Dextrose) 50 mls @ 100 mls/hr IVPB Q8H-IV RAUL; Protocol Last Admin: 07/15/20 09:41 Dose: 100 mls/hr Documented by: Vasopressin 40 units/ Sodium (Chloride) 100 mls @ 5 mls/hr IVPB ASDIR RAUL; Protocol Last Admin: 07/15/20 09:40 Dose: 2 units/hr, 5 mls/hr Documented by: Dextrose/Lactated Ringer's (D5-Lr+20 Meq Kcl -) 20 meq in 1,000 mls @ 30 mls/hr IV ASDIR [facility] Last Admin: 07/15/20 09:39 Dose: 30 mls/hr Documented by: Midazolam HCl (Midazolam 100mg/100ml-0.9%Nacl) 100 mg in 100 mls @ 1 mls/hr IVPB TITR [facility]UL; Protocol Last Admin: 07/15/20 09:37 Dose: 1 mg/hr, 1 mls/hr Documented by: Potassium Phosphate 30 mm/ (Sodium Chloride) 510 mls @ 85 mls/hr IVPB ONCE ONE Stop: 07/15/20 16:29 Last Admin: 07/15/20 12:22 Dose: 85 mls/hr Documented by: Morphine Sulfate (Morphine Sulfate) 1 mg IVPUSH Q6H PRN PRN Reason: PAIN LEVEL 6-10 Multivitamins/Minerals (Certavite-Antioxidant Liquid) 15 ml NGT DAILY [facility] Last Admin: 07/15/20 10:00 Dose: 15 ml Documented by: Potassium Phos/Sodium Phos (Phos-Nak Packet -) 1 packet PO TID [facility] Last Admin: 07/14/20 21:41 Dose: 1 packet Documented by: Thiamine HCl (Vitamin B1 Injection -) 100 mg IVPB DAILY [facility] Last Admin: 07/15/20 09:39 Dose: 100 mg Documented by: - Objective Vital Signs: Vital Signs Temperature 97.2 F L 07/15/20 10:00 Pulse Rate 108 H 07/15/20 12:00 Respiratory Rate 16 07/15/20 12:00 Blood Pressure 112/68 07/15/20 12:00 O2 Sat by Pulse Oximetry (%) 96 07/15/20 09:00 Constitutional: Yes: Calm, Cachectic Cardiovascular: Yes: S1, S2 Respiratory: Yes: Mechanically Ventilated Gastrointestinal: Yes: Soft, Abdomen, Obese Genitourinary: Yes: Uribe Present Musculoskeletal: Yes: Muscle Weakness Edema: No Neurological: Yes: Lethargy Labs: CBC, BMP 07/15/20 05:30 07/15/20 05:30 INR, PTT INR 2.08 (0.83-1.09) H 07/06/20 08:05 Problem List - Problems (1) Hypoglycemia Code(s): E16.2 - HYPOGLYCEMIA, UNSPECIFIED (2) Sepsis Code(s): A41.9 - SEPSIS, UNSPECIFIED ORGANISM Qualifiers: Sepsis type: sepsis due to unspecified organism Sepsis acute organ dysfunction status: unspecified Qualified Code(s): A41.9 - Sepsis, unspecified organism (3) Hypoalbuminemia Code(s): E88.09 - OTH DISORDERS OF PLASMA-PROTEIN METABOLISM, NEC (4) Hyponatremia Code(s): E87.1 - HYPO-OSMOLALITY AND HYPONATREMIA Assessment/Plan Current Medications Generic Name Dose Route Start Last Admin Trade Name Freq PRN Reason Stop Dose Admin Banana Based Medical Food 1 packet 07/10/20 22:00 07/15/20 09:40 Banatrol Plus Powder Packet GT 1 packet TID [facility] Administration Dextrose 12.5 gm 07/08/20 07:08 07/08/20 07:38 D50w (Vial) - IVPUSH 12.5 gm PRN PRN Administration HYPOGLYCEMIA Folic Acid 1 mg 07/06/20 10:00 07/15/20 09:38 Folic Acid - NGT 1 mg DAILY [facility]UL Administration Heparin Sodium (Porcine) 5,000 unit 07/10/20 22:00 07/14/20 21:42 Heparin - SQ 5,000 unit TID [facility]UL Administration Piperacillin Sod/Tazobactam 50 mls @ 100 mls/hr 07/02/20 18:00 07/15/20 09:41 Sod 3.375 gm/ Dextrose IVPB 100 mls/hr Q8H-IV RAUL Administration Protocol Vasopressin 40 units/ Sodium 100 mls @ 5 mls/hr 07/08/20 07:00 07/15/20 09:40 Chloride IVPB 2 units/hr ASDIR RAUL 5 mls/hr Administration Protocol 2 UNITS/HR Dextrose/Lactated Ringer's 20 meq in 1,000 mls @ 30 mls/hr 07/12/20 23:30 07/15/20 09:39 D5-Lr+20 Meq Kcl - IV 30 mls/hr ASDIR RAUL Administration Midazolam HCl 100 mg in 100 mls @ 1 mls/hr 07/15/20 08:15 07/15/20 09:37 Midazolam 100mg/100ml-0.9%Nacl IVPB 1 mg/hr TITR RAUL 1 mls/hr Administration Protocol 1 MG/HR Potassium Phosphate 30 mm/ 510 mls @ 85 mls/hr 07/15/20 10:30 07/15/20 12:22 Sodium Chloride IVPB 07/15/20 16:29 85 mls/hr ONCE ONE Administration Morphine Sulfate 1 mg 07/14/20 08:24 Morphine Sulfate IVPUSH Q6H PRN PAIN LEVEL 6-10 Multivitamins/Minerals 15 ml 07/06/20 11:45 07/15/20 10:00 Certavite-Antioxidant Liquid NGT 15 ml DAILY [facility] Administration Potassium Phos/Sodium Phos 1 packet 07/09/20 14:00 07/14/20 21:41 Phos-Nak Packet - PO 1 packet TID [facility]UL Administration Thiamine HCl 100 mg 07/11/20 12:45 07/15/20 09:39 Vitamin B1 Injection - IVPB 100 mg DAILY [facility] Administration Impression 1. azotemia 2. hyponatremia 3. hyperkalemia 4. hypotension 5. sepsis 6. sbo 7. uti 8. liver cirrhosis 9. hypoalbuminemia 10. etoh abuse 11. substance abuse 12. psoriasis 13. acute resp failure 14. malnutrition Plan - vent support - cont feeds - monitor blood sugar - discussed with dietary - replace lytes - discussed with ICU - monitor bp, maintain map 65
[2020-07-15] MEDS: HEPARIN NA (PORCINE) 5,000 UNITS/ML 1ML VIAL SQ SCH ×2 (15:02→21:44)
[2020-07-15] MEDS: NAPH,MB-DB/K PH,MBDB POWDER PACKET PO SCH ×2 (15:02→21:44)
--- NOTE | 2020-07-15 16:29 | PN ---
Progress Note, Physician History of Present Illness: Pt remains in ICU intubated/sedated. - Current Medication List Current Medications: Active Medications Banana Based Medical Food (Banatrol Plus Powder Packet) 1 packet GT TID [facility] Last Admin: 07/15/20 15:02 Dose: 1 packet Documented by: Dextrose (D50w (Vial) -) 12.5 gm IVPUSH PRN PRN PRN Reason: HYPOGLYCEMIA Last Admin: 07/08/20 07:38 Dose: 12.5 gm Documented by: Folic Acid (Folic Acid -) 1 mg NGT DAILY [facility] Last Admin: 07/15/20 09:38 Dose: 1 mg Documented by: Heparin Sodium (Porcine) (Heparin -) 5,000 unit SQ TID [facility] Last Admin: 07/15/20 15:02 Dose: 5,000 unit Documented by: Piperacillin Sod/Tazobactam (Sod 3.375 gm/ Dextrose) 50 mls @ 100 mls/hr IVPB Q8H-IV RAUL; Protocol Last Admin: 07/15/20 09:41 Dose: 100 mls/hr Documented by: Vasopressin 40 units/ Sodium (Chloride) 100 mls @ 5 mls/hr IVPB ASDIR RAUL; Protocol Last Admin: 07/15/20 09:40 Dose: 2 units/hr, 5 mls/hr Documented by: Dextrose/Lactated Ringer's (D5-Lr+20 Meq Kcl -) 20 meq in 1,000 mls @ 30 mls/hr IV ASDIR RAUL Last Admin: 07/15/20 09:39 Dose: 30 mls/hr Documented by: Midazolam HCl (Midazolam 100mg/100ml-0.9%Nacl) 100 mg in 100 mls @ 1 mls/hr IVPB TITR RAUL; Protocol Last Admin: 07/15/20 09:37 Dose: 1 mg/hr, 1 mls/hr Documented by: Potassium Phosphate 30 mm/ (Sodium Chloride) 510 mls @ 85 mls/hr IVPB ONCE ONE Stop: 07/15/20 16:29 Last Admin: 07/15/20 12:22 Dose: 85 mls/hr Documented by: Morphine Sulfate (Morphine Sulfate) 1 mg IVPUSH Q6H PRN PRN Reason: PAIN LEVEL 6-10 Multivitamins/Minerals (Certavite-Antioxidant Liquid) 15 ml NGT DAILY [facility] Last Admin: 07/15/20 10:00 Dose: 15 ml Documented by: Potassium Phos/Sodium Phos (Phos-Nak Packet -) 1 packet PO TID [facility] Last Admin: 07/15/20 15:02 Dose: 1 packet Documented by: Thiamine HCl (Vitamin B1 Injection -) 100 mg IVPB DAILY [facility] Last Admin: 07/15/20 09:39 Dose: 100 mg Documented by: - Objective Vital Signs: Vital Signs Temperature 97.2 F L 07/15/20 14:00 Pulse Rate 108 H 07/15/20 14:00 Respiratory Rate 16 07/15/20 14:00 Blood Pressure 103/89 07/15/20 14:00 O2 Sat by Pulse Oximetry (%) 95 07/15/20 13:10 Constitutional: Yes: Cachectic, Other (sedated) Neck: Yes: Supple Cardiovascular: Yes: Tachycardia Respiratory: Yes: Mechanically Ventilated Gastrointestinal: Yes: Normal Bowel Sounds, Soft Genitourinary: Yes: Uribe Present Extremities: Yes: WNL Neurological: Yes: Other (sedated) Labs: CBC, BMP 07/15/20 05:30 07/15/20 05:30 INR, PTT INR 2.08 (0.83-1.09) H 07/06/20 08:05 Microbiology 07/11/20 23:45 Blood - Peripheral Venous Blood Culture - Preliminary NO GROWTH OBTAINED AFTER 72 HOURS, INCUBATION TO CONTINUE FOR 2 DAYS. 07/11/20 22:00 Sputum - Endotrachea Suction/Ventilator Gram Stain - Final 07/11/20 22:00 Sputum - Endotrachea Suction/Ventilator Sputum Culture - Final Yeast Like Organism 07/11/20 23:45 Urine - Urine - Catheterized Urine Culture - Final Yeast Like Organism Pseudomonas Aeruginosa 07/04/20 17:00 Sputum - Endotrachea Suction/Ventilator Gram Stain - Final 07/04/20 17:00 Sputum - Endotrachea Suction/Ventilator Sputum Culture - Final Yeast Like Organism 07/01/20 15:50 Blood - Peripheral Venous Blood Culture - Final NO GROWTH AFTER 5 DAYS INCUBATION 07/01/20 15:43 Blood - Peripheral Venous Blood Culture - Final NO GROWTH AFTER 5 DAYS INCUBATION 07/01/20 15:50 Urine - Urine Suprapubic Urine Culture - Final Pseudomonas Aeruginosa Escherichia Coli Enterococcus Avium Problem List - Problems (1) Bowel obstruction Code(s): K56.609 - UNSP INTESTNL OBST, UNSP TO PARTIAL VERSUS COMPLETE OBST (2) Hypothermia Code(s): T68.XXXA - HYPOTHERMIA, INITIAL ENCOUNTER (3) Pneumonia Code(s): J18.9 - PNEUMONIA, UNSPECIFIED ORGANISM (4) SBO (small bowel obstruction) Code(s): K56.609 - UNSP INTESTNL OBST, UNSP TO PARTIAL VERSUS COMPLETE OBST (5) Sepsis Code(s): A41.9 - SEPSIS, UNSPECIFIED ORGANISM Qualifiers: Sepsis type: sepsis due to unspecified organism Sepsis acute organ dysfunction status: unspecified Qualified Code(s): A41.9 - Sepsis, unspecified organism (6) UTI (urinary tract infection) Code(s): N39.0 - URINARY TRACT INFECTION, SITE NOT SPECIFIED Qualifiers: Urinary tract infection type: site unspecified Hematuria presence: with hematuria Qualified Code(s): N39.0 - Urinary tract infection, site not specified; R31.9 - Hematuria, unspecified (7) Alcoholic liver damage Code(s): K70.9 - ALCOHOLIC LIVER DISEASE, UNSPECIFIED (8) Cachexia Code(s): R64 - CACHEXIA (9) Lactic acid acidosis Code(s): E87.2 - ACIDOSIS (10) Substance abuse Code(s): F19.10 - OTHER PSYCHOACTIVE SUBSTANCE ABUSE, UNCOMPLICATED Assessment/Plan Acute respiratory failure on MV Sepsis/shock PNA, Likely Aspiration UTI SBO ETOH/Heroin abuse Failure to thrive Severe malnutrition Leukocytosis -- Pt remains intubated/sedated, critically ill -- latest cultures neg -- afebrile, wbc trended down -- continue Zosyn -- prognosis poor cc time: 37 min
--- NOTE | 2020-07-15 23:03 | PN ---
Progress Note, Physician History of Present Illness: Pt remains intubated but awake - Current Medication List Current Medications: Active Medications Banana Based Medical Food (Banatrol Plus Powder Packet) 1 packet GT TID [facility] Last Admin: 07/15/20 21:44 Dose: 1 packet Documented by: Dextrose (D50w (Vial) -) 12.5 gm IVPUSH PRN PRN PRN Reason: HYPOGLYCEMIA Last Admin: 07/08/20 07:38 Dose: 12.5 gm Documented by: Folic Acid (Folic Acid -) 1 mg NGT DAILY [facility] Last Admin: 07/15/20 09:38 Dose: 1 mg Documented by: Heparin Sodium (Porcine) (Heparin -) 5,000 unit SQ TID [facility] Last Admin: 07/15/20 21:44 Dose: 5,000 unit Documented by: Piperacillin Sod/Tazobactam (Sod 3.375 gm/ Dextrose) 50 mls @ 100 mls/hr IVPB Q8H-IV RAUL; Protocol Last Admin: 07/15/20 17:33 Dose: 100 mls/hr Documented by: Vasopressin 40 units/ Sodium (Chloride) 100 mls @ 5 mls/hr IVPB ASDIR RAUL; Protocol Last Titration: 07/15/20 19:30 Dose: 6 units/hr, 15 mls/hr Documented by: Dextrose/Lactated Ringer's (D5-Lr+20 Meq Kcl -) 20 meq in 1,000 mls @ 30 mls/hr IV ASDIR RAUL Last Admin: 07/15/20 09:39 Dose: 30 mls/hr Documented by: Midazolam HCl (Midazolam 100mg/100ml-0.9%Nacl) 100 mg in 100 mls @ 1 mls/hr IVPB TITR RAUL; Protocol Last Titration: 07/15/20 20:00 Dose: 10 mg/hr, 10 mls/hr Documented by: Morphine Sulfate (Morphine Sulfate) 1 mg IVPUSH Q6H PRN PRN Reason: PAIN LEVEL 6-10 Multivitamins/Minerals (Certavite-Antioxidant Liquid) 15 ml NGT DAILY [facility] Last Admin: 07/15/20 10:00 Dose: 15 ml Documented by: Potassium Phos/Sodium Phos (Phos-Nak Packet -) 1 packet PO TID [facility] Last Admin: 07/15/20 21:44 Dose: 1 packet Documented by: Thiamine HCl (Vitamin B1 Injection -) 100 mg IVPB DAILY [facility] Last Admin: 07/15/20 09:39 Dose: 100 mg Documented by: - Objective Vital Signs: Vital Signs Temperature 97.3 F L 07/15/20 20:00 Pulse Rate 93 H 07/15/20 20:00 Respiratory Rate 21 H 07/15/20 20:11 Blood Pressure 93/76 07/15/20 20:00 O2 Sat by Pulse Oximetry (%) 98 07/15/20 20:11 Constitutional: Yes: Cachectic, Other (Intubated) Neck: Yes: WNL, Supple Cardiovascular: Yes: Tachycardia Respiratory: Yes: Diminished Gastrointestinal: Yes: WNL, Normal Bowel Sounds, Soft Labs: CBC, BMP 07/15/20 05:30 07/15/20 05:30 INR, PTT INR 2.08 (0.83-1.09) H 07/06/20 08:05 Problem List - Problems (1) Respiratory failure Assessment/Plan: Acute on chronic respiratory failure Multifactorial RLL infiltrates ?Asp pneumonia Cont IV Zosyn Trial off sedation? as per pulmonary Code(s): J96.90 - RESPIRATORY FAILURE, UNSP, UNSP W HYPOXIA OR HYPERCAPNIA (2) Sepsis Assessment/Plan: Lactic acidosis Cont IVF Cont IV Zosyn Pt on pressor UTI vs Aspiration pneumonia Blood culture/urine culture negative to date Code(s): A41.9 - SEPSIS, UNSPECIFIED ORGANISM Qualifiers: Sepsis type: sepsis due to unspecified organism Sepsis acute organ dysfunction status: unspecified Qualified Code(s): A41.9 - Sepsis, unspecified organism (3) At risk for electrolyte imbalance Assessment/Plan: Electrolytes improved Cont to monitor Code(s): Z91.89 - OTH PERSONAL RISK FACTORS, NOT ELSEWHERE CLASSIFIED (4) SBO (small bowel obstruction) Assessment/Plan: Surgical consult noted Cont NPO Cont IVF Monitor serial abdominal xrays Monitor hypoglycemia CT scan abd showed probable anasacra/ascites Pt now on enteral feeds Code(s): K56.609 - UNSP INTESTNL OBST, UNSP TO PARTIAL VERSUS COMPLETE OBST (5) Liver cirrhosis, alcoholic Assessment/Plan: Cont to monitor Poor prognosis Code(s): K70.30 - ALCOHOLIC CIRRHOSIS OF LIVER WITHOUT ASCITES (6) Hypoalbuminemia Code(s): E88.09 - OTH DISORDERS OF PLASMA-PROTEIN METABOLISM, NEC (7) Substance abuse Assessment/Plan: Psych consult ?Competency Code(s): F19.10 - OTHER PSYCHOACTIVE SUBSTANCE ABUSE, UNCOMPLICATED (8) Cachexia Assessment/Plan: Due to severe protein malnutrition Code(s): R64 - CACHEXIA (9) Anemia Assessment/Plan: Monitor H/H Transfuse as needed Code(s): D64.9 - ANEMIA, UNSPECIFIED (10) Severe malnutrition Code(s): E43 - UNSPECIFIED SEVERE PROTEIN-CALORIE MALNUTRITION
[2020-07-16] MEDS ORDERED: DEXTROSE 5%-WATER - 50 ML IVPB ONE ×3 (01:12→16:37)
[2020-07-16] MEDS ORDERED: PIPERACILLIN/TAZOBACTAM 3.375 GM VIAL IVPB ONE ×3 (01:12→16:37)
[2020-07-16] MEDS: HEPARIN NA (PORCINE) 5,000 UNITS/ML 1ML VIAL SQ SCH ×4 (01:26→22:44)
[2020-07-16] MEDS: PIPERACILLIN/TAZOB 3.375 GM 3.375 GM in DEXTROSE 5%-WATER - 50 ML IVPB SCH ×3 (01:37→18:17)
[2020-07-16] MEDS: VASOPRESSIN 40 UNITS in SODIUM CHLORIDE 98 ML IVPB SCH (04:50)
[2020-07-16 06:37] LABS: BASO % 0.1 % (0-2.0); EOS % 0.1 % (0-4.5); HEMATOCRIT 18.8 % (32.4-45.2); LYMPH % 4.6 % (8-40); MCH 30.5 pg (25.7-33.7); MCHC 34.6 g/dl (32.0-36.0); MEAN CELL VOLUME 88.3 fl (80-96); MEAN PLT VOLUME 8.5 fl (7.5-11.1); MONO % 2.9 % (3.8-10.2); NEUT % 92.3 % (42.8-82.8); PLATELET COUNT 111 K/MM3 (134-434); RBC 2.13 M/mm3 (3.60-5.2); RDW 14.7 % (11.6-15.6); WHITE BLOOD COUNT 7.7 K/mm3 (4.0-10.0)
[2020-07-16 06:58] LABS: ANION GAP 6 MMOL/L (8-16); BILIRUBIN,TOTAL 0.7 mg/dL (0.2-1); BLOOD UREA NITROGEN 18.2 mg/dL (7-18); CHLORIDE 109 mmol/L (98-107); CO2 21 mmol/L (21-32); CREATININE < 0.2 mg/dL (0.55-1.3); GLUCOSE,RANDOM 100 mg/dL (74-106); PHOSPHOROUS 2.3 mg/dL (2.5-4.9); POTASSIUM 3.6 mmol/L (3.5-5.1); SGOT/AST 20 U/L (15-37); SGPT/ALT 54 U/L (13-61); SODIUM 135 mmol/L (136-145); TOT PROT 3.7 g/dl (6.4-8.2)
[2020-07-16 07:00] LABS: ALK PHOS 242 U/L (45-117)
[2020-07-16] MEDS: NAPH,MB-DB/K PH,MBDB POWDER PACKET PO SCH ×3 (07:10→22:44)
[2020-07-16] MEDS: BANATROL PLUS POWDER PACKET GT SCH ×3 (07:10→22:44)
[2020-07-16 07:14] LABS: CALCIUM 6.3 mg/dL (8.5-10.1)
[2020-07-16 08:08] LABS: HEMOGLOBIN 6.5 GM/dL (10.7-15.3)
[2020-07-16 09:09] LABS: ANISOCYTOSIS 2+; MACROCYTOSIS 0; PLATELET ESTIMATE DECREASED
[2020-07-16] MEDS ORDERED: PT OWN MED DRAWER 7, Y5N ONE (09:16)
[2020-07-16] MEDS: MULTIVIT-MINERALS ORAL LIQUID NGT SCH (09:19)
[2020-07-16] MEDS: MIDAZOLAM IN 0.9 % SOD.CHLORID 100 MG/100 ML PLAST..BAG IVPB SCH (09:19)
[2020-07-16] MEDS: THIAMINE HCL 200 MG/2 ML VIAL IVPB SCH (09:20)
[2020-07-16] MEDS: FOLIC ACID 1 MG TABLET (FP) NGT SCH (09:20)
--- NOTE | 2020-07-16 11:10 | PN ---
Teaching Attending Note Name of Resident: Yadira Hamilton ATTENDING PHYSICIAN STATEMENT I saw and evaluated the patient. I reviewed the resident's note and discussed the case with the resident. I agree with the resident's findings and plan as documented. SUBJECTIVE: Pt seen and examined in the ICU. Remains intubated, sedated on vasopressin gtt. OBJECTIVE: Vital Signs Period Temp Pulse Resp BP Sys/Campbell Pulse Ox Last 24 Hr 96.1 F-98.3 F 84-112 16-28 87-124/62-89 95-100 Intake & Output 07/13/20 07/14/20 07/15/20 07/16/20 23:59 23:59 23:59 23:59 Intake Total 2154 744 2420 1040 Output Total 800 400 300 200 Balance 2773 162 7200 840 Weight 30.164 kg 31.026 kg 31.099 kg Gen: intubated, sedated Heart: RRR Lung: scattered rhonchi Abd: soft, nontender, +ascites Ext: + edema CBC, BMP 07/16/20 05:30 07/16/20 06:00 Active Medications Banana Based Medical Food (Banatrol Plus Powder Packet) 1 packet GT TID [facility] Last Admin: 07/16/20 07:10 Dose: 1 packet Documented by: Dextrose (D50w (Vial) -) 12.5 gm IVPUSH PRN PRN PRN Reason: HYPOGLYCEMIA Last Admin: 07/08/20 07:38 Dose: 12.5 gm Documented by: Folic Acid (Folic Acid -) 1 mg NGT DAILY [facility] Last Admin: 07/16/20 09:20 Dose: 1 mg Documented by: Heparin Sodium (Porcine) (Heparin -) 5,000 unit SQ TID [facility] Last Admin: 07/16/20 07:10 Dose: 5,000 unit Documented by: Piperacillin Sod/Tazobactam (Sod 3.375 gm/ Dextrose) 50 mls @ 100 mls/hr IVPB Q8H-IV RAUL; Protocol Last Admin: 07/16/20 09:20 Dose: 100 mls/hr Documented by: Vasopressin 40 units/ Sodium (Chloride) 100 mls @ 5 mls/hr IVPB ASDIR RAUL; Protocol Last Admin: 07/16/20 04:50 Dose: 6 units/hr, 15 mls/hr Documented by: Dextrose/Lactated Ringer's (D5-Lr+20 Meq Kcl -) 20 meq in 1,000 mls @ 30 mls/hr IV ASDIR [facility] Last Admin: 07/15/20 23:30 Dose: Not Given Documented by: Midazolam HCl (Midazolam 100mg/100ml-0.9%Nacl) 100 mg in 100 mls @ 1 mls/hr IVPB TITR RAUL; Protocol Last Admin: 07/16/20 09:19 Dose: 7 mg/hr, 7 mls/hr Documented by: Morphine Sulfate (Morphine Sulfate) 1 mg IVPUSH Q6H PRN PRN Reason: PAIN LEVEL 6-10 Multivitamins/Minerals (Certavite-Antioxidant Liquid) 15 ml NGT DAILY [facility] Last Admin: 07/16/20 09:19 Dose: 15 ml Documented by: Potassium Phos/Sodium Phos (Phos-Nak Packet -) 1 packet PO TID [facility] Last Admin: 07/16/20 07:10 Dose: 1 packet Documented by: Thiamine HCl (Vitamin B1 Injection -) 100 mg IVPB DAILY [facility] Last Admin: 07/16/20 09:20 Dose: 100 mg Documented by: ASSESSMENT AND PLAN: Acute Hypoxic Respiratory Failure Pneumonia likely Aspiration UTI Sepsis Hyponatremia Small Bowel Obstruction Alcohol/Heroin Abuse Anemia Failure to Thrive Severe Protein Calorie Malnutrition Refeeding Syndrome - transfuse PRBC - lasix today - monitor urine output, creatinine - replete lytes - continue antibiotics - titrate pressors to maintain MAP >65 - titrate O2 to keep SpO2 >90% - hold sedation to assess mental status - spontaneous breathing trials as tolerated when mental status improved - titrate enteral feeds to goal - DVT/GI prophylaxis - continue ICU monitoring critical care time spent in reviewing chart, evaluating patient and formulating plan 35 min
[2020-07-16] MEDS ORDERED: FUROSEMIDE 40 MG/4 ML INJECTABLE VIAL IVPUSH ONE (14:30)
--- NOTE | 2020-07-16 14:33 | PN ---
Progress Note, Physician History of Present Illness: continues to be intubated on vasopressin - Current Medication List Current Medications: Active Medications Banana Based Medical Food (Banatrol Plus Powder Packet) 1 packet GT TID [facility] [place] Last Admin: 07/16/20 13:34 Dose: 1 packet Documented by: Dextrose (D50w (Vial) -) 12.5 gm IVPUSH PRN PRN PRN Reason: HYPOGLYCEMIA Last Admin: 07/08/20 07:38 Dose: 12.5 gm Documented by: Folic Acid (Folic Acid -) 1 mg NGT DAILY RAUL Last Admin: 07/16/20 09:20 Dose: 1 mg Documented by: Heparin Sodium (Porcine) (Heparin -) 5,000 unit SQ TID RAUL Last Admin: 07/16/20 13:34 Dose: 5,000 unit Documented by: Piperacillin Sod/Tazobactam (Sod 3.375 gm/ Dextrose) 50 mls @ 100 mls/hr IVPB Q8H-IV RAUL; Protocol Last Admin: 07/16/20 09:20 Dose: 100 mls/hr Documented by: Vasopressin 40 units/ Sodium (Chloride) 100 mls @ 5 mls/hr IVPB ASDIR RAUL; Protocol Last Titration: 07/16/20 11:30 Dose: 3 units/hr, 7.5 mls/hr Documented by: Dextrose/Lactated Ringer's (D5-Lr+20 Meq Kcl -) 20 meq in 1,000 mls @ 30 mls/hr IV ASDIR RAUL Last Admin: 07/15/20 23:30 Dose: Not Given Documented by: Midazolam HCl (Midazolam 100mg/100ml-0.9%Nacl) 100 mg in 100 mls @ 1 mls/hr IVPB TITR RAUL; Protocol Last Titration: 07/16/20 10:30 Dose: 0 mg/hr, 0 mls/hr Documented by: Morphine Sulfate (Morphine Sulfate) 1 mg IVPUSH Q6H PRN PRN Reason: PAIN LEVEL 6-10 Multivitamins/Minerals (Certavite-Antioxidant Liquid) 15 ml NGT DAILY [facility] [place] Last Admin: 07/16/20 09:19 Dose: 15 ml Documented by: Potassium Phos/Sodium Phos (Phos-Nak Packet -) 1 packet PO TID [facility] [place] Last Admin: 07/16/20 13:34 Dose: 1 packet Documented by: Thiamine HCl (Vitamin B1 Injection -) 100 mg IVPB DAILY RAUL Last Admin: 07/16/20 09:20 Dose: 100 mg Documented by: - Objective Vital Signs: Vital Signs Temperature 98.4 F 07/16/20 12:40 Pulse Rate 118 H 07/16/20 14:25 Respiratory Rate 16 07/16/20 14:25 Blood Pressure 92/80 07/16/20 14:25 O2 Sat by Pulse Oximetry (%) 99 07/16/20 11:33 Cardiovascular: Yes: S1, S2 Respiratory: Yes: Intubated, Mechanically Ventilated Gastrointestinal: Yes: Normal Bowel Sounds, Soft Musculoskeletal: Yes: WNL Extremities: Yes: WNL Neurological: Yes: Other Labs: CBC, BMP 07/16/20 05:30 07/16/20 06:00 INR, PTT INR 2.08 (0.83-1.09) H 07/06/20 08:05 - ....Imaging Chest X-ray: Report Reviewed, Image Reviewed Assessment/Plan Pneumonia likely Aspiration UTI Sepsis Hyponatremia SBO resolving Alcohol/Heroin Abuse Anemia Failure to Thrive Severe Protein Calorie Malnutrition uti plan continue current mgmt abx nutrition rest as per icu monitor wbc wbc decreasing cc 36 min
--- NOTE | 2020-07-16 14:43 | PN ---
Physical Exam: SUBJECTIVE: Patient seen and examined this morning. No events overnight. Patient versed shut off this morning. OBJECTIVE: Vital Signs Temp Pulse Resp BP Pulse Ox 98.4 F 118 H 16 92/80 99 07/16/20 12:40 07/16/20 14:25 07/16/20 14:25 07/16/20 14:25 07/16/20 11:33 GENERAL: Intubated, alert, too weak to move HEAD: No signs of trauma, temporal wasting EYES: PERRLA, EOMI, sclera anicteric ENT: intubated, ET tube in place NECK: supple LUNGS: dec breath sounds at bilateral bases HEART: RRR normal S1 and S2, ABDOMEN: soft, extremely emaciated EXTREMITIES : cachectic and weeping with bilateral pitting edema in upper and lower ext NEUROLOGICAL: Pt able to comply to commands SKIN: thin, fragile Intake & Output 07/13/20 07/14/20 07/15/20 07/16/20 23:59 23:59 23:59 23:59 Intake Total 2154 744 2420 1040 Output Total 800 400 300 200 Balance 6925 546 4187 840 Weight 66 lb 8 oz 68 lb 6.4 oz 68 lb 9 oz Laboratory Results - last 24 hr 07/16/20 07/16/20 07/16/20 01:35 05:30 05:33 WBC 7.7 RBC 2.13 L Hgb 6.5 L* Hct 18.8 L D MCV 88.3 MCH 30.5 MCHC 34.6 RDW 14.7 Plt Count 111 L D MPV 8.5 Absolute Neuts (auto) 7.1 Neutrophils % 92.3 H Neutrophils % (Manual) 88.2 H Band Neutrophils % 2.0 Lymphocytes % 4.6 L Lymphocytes % (Manual) 6.9 L Monocytes % 2.9 L Monocytes % (Manual) 3 L D Eosinophils % 0.1 Eosinophils % (Manual) 0.0 Basophils % 0.1 Basophils % (Manual) 0.0 Myelocytes % (Man) 0 Promyelocytes % (Man) 0 Blast Cells % (Manual) 0 Nucleated RBC % 0 Metamyelocytes 0 Hypochromia 0 Platelet Estimate Decreased Polychromasia 1+ Poikilocytosis 2+ Anisocytosis 2+ Microcytosis 2+ Macrocytosis 0 Acanthocytes (Spur) 1+ Schistocytes 2+ Sodium Potassium Chloride Carbon Dioxide Anion Gap BUN Creatinine Est GFR (CKD-EPI)AfAm Est GFR (CKD-EPI)NonAf POC Glucometer 126 101 Random Glucose Calcium Phosphorus Magnesium Total Bilirubin AST ALT Alkaline Phosphatase Total Protein Albumin Hepatitis C Genotype Blood Type Antibody Screen Crossmatch 07/16/20 07/16/20 06:00 08:38 WBC RBC Hgb Hct MCV MCH MCHC RDW Plt Count MPV Absolute Neuts (auto) Neutrophils % Neutrophils % (Manual) Band Neutrophils % Lymphocytes % Lymphocytes % (Manual) Monocytes % Monocytes % (Manual) Eosinophils % Eosinophils % (Manual) Basophils % Basophils % (Manual) Myelocytes % (Man) Promyelocytes % (Man) Blast Cells % (Manual) Nucleated RBC % Metamyelocytes Hypochromia Platelet Estimate Polychromasia Poikilocytosis Anisocytosis Microcytosis Macrocytosis Acanthocytes (Spur) Schistocytes Sodium 135 L Potassium 3.6 Chloride 109 H Carbon Dioxide 21 Anion Gap 6 L BUN 18.2 H Creatinine < 0.2 L Est GFR (CKD-EPI)AfAm 196.46 Est GFR (CKD-EPI)NonAf 169.51 POC Glucometer Random Glucose 100 Calcium 6.3 L* Phosphorus 2.3 L Magnesium 2.0 Total Bilirubin 0.7 AST 20 ALT 54 Alkaline Phosphatase 242 H Total Protein 3.7 L Albumin 1.0 L Hepatitis C Genotype Blood Type O POSITIVE Antibody Screen Negative Crossmatch See Detail Active Medications Generic Name Dose Route Start Last Admin Trade Name Freq PRN Reason Stop Dose Admin Banana Based Medical Food 1 packet 07/10/20 22:00 07/16/20 13:34 Banatrol Plus Powder Packet GT 1 packet TID RAUL Administration Dextrose 12.5 gm 07/08/20 07:08 07/08/20 07:38 D50w (Vial) - IVPUSH 12.5 gm PRN PRN Administration HYPOGLYCEMIA Folic Acid 1 mg 07/06/20 10:00 07/16/20 09:20 Folic Acid - NGT 1 mg DAILY RAUL Administration Furosemide 40 mg 07/16/20 14:30 07/16/20 13:34 Lasix Injection - IVPUSH 07/16/20 14:31 40 mg ONCE ONE Administration Heparin Sodium (Porcine) 5,000 unit 07/10/20 22:00 07/16/20 13:34 Heparin - SQ 5,000 unit TID RAUL Administration Piperacillin Sod/Tazobactam 50 mls @ 100 mls/hr 07/02/20 18:00 07/16/20 09:20 Sod 3.375 gm/ Dextrose IVPB 100 mls/hr Q8H-IV RAUL Administration Protocol Vasopressin 40 units/ Sodium 100 mls @ 5 mls/hr 07/08/20 07:00 07/16/20 11:30 Chloride IVPB 3 units/hr ASDIR RAUL 7.5 mls/hr Titration Protocol 2 UNITS/HR Dextrose/Lactated Ringer's 20 meq in 1,000 mls @ 30 mls/hr 07/12/20 23:30 07/15/20 23:30 D5-Lr+20 Meq Kcl - IV Not Given ASDIR RAUL Midazolam HCl 100 mg in 100 mls @ 1 mls/hr 07/15/20 08:15 07/16/20 10:30 Midazolam 100mg/100ml-0.9%Nacl IVPB 0 mg/hr TITR RAUL 0 mls/hr Titration Protocol 1 MG/HR Morphine Sulfate 1 mg 07/14/20 08:24 Morphine Sulfate IVPUSH Q6H PRN PAIN LEVEL 6-10 Multivitamins/Minerals 15 ml 07/06/20 11:45 07/16/20 09:19 Certavite-Antioxidant Liquid NGT 15 ml DAILY RAUL Administration Potassium Phos/Sodium Phos 1 packet 07/09/20 14:00 07/16/20 13:34 Phos-Nak Packet - PO 1 packet TID RAUL Administration Thiamine HCl 100 mg 07/11/20 12:45 07/16/20 09:20 Vitamin B1 Injection - IVPB 100 mg DAILY RAUL Administration ASSESSMENT/PLAN: This is a 34 year old female with PMH of cachexia, polysubstance abuse (ETOH, heroin), cirrhosis, HTN, psoriasis, and asthma. She presented to the ER after an episode of hypoglycemia at home, and was BIBEMS with hypoglycemia, hypotension, hypoxia, hypothermia. Admitted to ICU due to possible sepsis due to UTI and PNA, Refeeding syndrome, and SBO. Neuro - lethargic, arousable but weak - Pt now intubated and on versed >> shut off for sedation vacation - start precedex and continue to try to stay off versed Cardiac - Hx of HTN >> hold bp meds - Monitoring BP keep > 65. - on vasso, continue to taper down Resp - pt has history of asthma/ albuterol PRN - intubated 07/04 - attempt to wean off vent today/tomorrow GI - pt still having diarrhea - Transaminitis trending down, continue to monitor - Pt had + FOBT Heme - Pt hemoglobin 6.6 >> 1 unit PRBC ordered - repeat CBC this afternoon ID - Sepsis secondary UTI vs Right sided PNA - ID consult appreciated continue Zosyn day 15 monitor wbc if continues to increase will add empiric Vancomycin - repeat CXR Renal - patient 3rd spacing - 40 IV lasixs after blood today, repeat BMP this afternoon Endocrine - continue to monitor sugars - TSH elevated, fT4 low, reevaluate once patient is more stable FEN - monitor electrolytes including phosphate and magnesium possible refeeding syndrome - keep K> 4, Mg> 2, PO4 > 3.5. - feeds increased to 40cc today Lines - central line in [facility] 07/10 PPx - DVT- heparin 5000 units per TID - Protonixs held due to hypomagnesmia Dispo: ethics consulted Visit type - Emergency Visit Emergency Visit: Yes ED Registration Date: 07/01/20 Care time: The patient presented to the Emergency Department on the above date and was hospitalized for further evaluation of their emergent condition. - New Patient This patient is new to me today: No - Critical Care Critical Care patient: Yes Total Critical Care Time (in minutes): 35 Critical Care Statement: The care of this patient involved high complexity decision making to prevent further life threatening deterioration of the patient's condition and/or to evaluate & treat vital organ system(s) failure or risk of failure. - Discharge Referral Referred to [facility] No ATTENDING PHYSICIAN STATEMENT I saw and evaluated the patient. I reviewed the resident's note and discussed the case with the resident. I agree with the resident's findings and plan as documented. SUBJECTIVE: OBJECTIVE: ASSESSMENT AND PLAN:
--- NOTE | 2020-07-16 15:58 | PN ---
Progress Note, Physician History of Present Illness: Pt seen and examined at bedside. She remains in the ICU. She remains intubated. - Current Medication List Current Medications: Active Medications Banana Based Medical Food (Banatrol Plus Powder Packet) 1 packet GT TID RAUL Last Admin: 07/16/20 13:34 Dose: 1 packet Documented by: Dextrose (D50w (Vial) -) 12.5 gm IVPUSH PRN PRN PRN Reason: HYPOGLYCEMIA Last Admin: 07/08/20 07:38 Dose: 12.5 gm Documented by: Folic Acid (Folic Acid -) 1 mg NGT DAILY RAUL Last Admin: 07/16/20 09:20 Dose: 1 mg Documented by: Heparin Sodium (Porcine) (Heparin -) 5,000 unit SQ TID RAUL Last Admin: 07/16/20 13:34 Dose: 5,000 unit Documented by: Piperacillin Sod/Tazobactam (Sod 3.375 gm/ Dextrose) 50 mls @ 100 mls/hr IVPB Q8H-IV RAUL; Protocol Last Admin: 07/16/20 09:20 Dose: 100 mls/hr Documented by: Vasopressin 40 units/ Sodium (Chloride) 100 mls @ 5 mls/hr IVPB ASDIR RAUL; Protocol Last Titration: 07/16/20 11:30 Dose: 3 units/hr, 7.5 mls/hr Documented by: Dextrose/Lactated Ringer's (D5-Lr+20 Meq Kcl -) 20 meq in 1,000 mls @ 30 mls/hr IV ASDIR RAUL Last Admin: 07/15/20 23:30 Dose: Not Given Documented by: Midazolam HCl (Midazolam 100mg/100ml-0.9%Nacl) 100 mg in 100 mls @ 1 mls/hr IVPB TITR RAUL; Protocol Last Titration: 07/16/20 10:30 Dose: 0 mg/hr, 0 mls/hr Documented by: Dexmedetomidine/Sodium Chloride (Precedex 400 Mcg/100 Ml Inject) 400 mcg in 100 mls @ 1.555 mls/hr IVPB TITR RAUL Morphine Sulfate (Morphine Sulfate) 1 mg IVPUSH Q6H PRN PRN Reason: PAIN LEVEL 6-10 Multivitamins/Minerals (Certavite-Antioxidant Liquid) 15 ml NGT DAILY RAUL Last Admin: 07/16/20 09:19 Dose: 15 ml Documented by: Potassium Phos/Sodium Phos (Phos-Nak Packet -) 1 packet PO TID RAUL Last Admin: 07/16/20 13:34 Dose: 1 packet Documented by: Thiamine HCl (Vitamin B1 Injection -) 100 mg IVPB DAILY RAUL Last Admin: 07/16/20 09:20 Dose: 100 mg Documented by: - Objective Vital Signs: Vital Signs Temperature 98.4 F 07/16/20 12:40 Pulse Rate 118 H 07/16/20 14:25 Respiratory Rate 15 07/16/20 15:41 Blood Pressure 92/80 07/16/20 14:25 O2 Sat by Pulse Oximetry (%) 98 07/16/20 15:41 Constitutional: Yes: Calm Eyes: Yes: Conjunctiva Clear HENT: Yes: Atraumatic Neck: Yes: Supple Cardiovascular: Yes: S1, S2 Respiratory: Yes: Mechanically Ventilated Gastrointestinal: Yes: Soft Genitourinary: Yes: Uribe Present Musculoskeletal: Yes: Muscle Weakness Edema: No Neurological: Yes: Lethargy Labs: CBC, BMP 07/16/20 05:30 07/16/20 06:00 INR, PTT INR 2.08 (0.83-1.09) H 07/06/20 08:05 Problem List - Problems (1) Hypoglycemia Code(s): E16.2 - HYPOGLYCEMIA, UNSPECIFIED (2) Sepsis Code(s): A41.9 - SEPSIS, UNSPECIFIED ORGANISM Qualifiers: Sepsis type: sepsis due to unspecified organism Sepsis acute organ dysfunction status: unspecified Qualified Code(s): A41.9 - Sepsis, unspecified organism (3) Hypoalbuminemia Code(s): E88.09 - OTH DISORDERS OF PLASMA-PROTEIN METABOLISM, NEC (4) Hyponatremia Code(s): E87.1 - HYPO-OSMOLALITY AND HYPONATREMIA Assessment/Plan Current Medications Generic Name Dose Route Start Last Admin Trade Name Freq PRN Reason Stop Dose Admin Banana Based Medical Food 1 packet 07/10/20 22:00 07/16/20 13:34 Banatrol Plus Powder Packet GT 1 packet TID RAUL Administration Dextrose 12.5 gm 07/08/20 07:08 07/08/20 07:38 D50w (Vial) - IVPUSH 12.5 gm PRN PRN Administration HYPOGLYCEMIA Folic Acid 1 mg 07/06/20 10:00 07/16/20 09:20 Folic Acid - NGT 1 mg DAILY RAUL Administration Heparin Sodium (Porcine) 5,000 unit 07/10/20 22:00 07/16/20 13:34 Heparin - SQ 5,000 unit TID RAUL Administration Piperacillin Sod/Tazobactam 50 mls @ 100 mls/hr 07/02/20 18:00 07/16/20 09:20 Sod 3.375 gm/ Dextrose IVPB 100 mls/hr Q8H-IV RAUL Administration Protocol Vasopressin 40 units/ Sodium 100 mls @ 5 mls/hr 07/08/20 07:00 07/16/20 11:30 Chloride IVPB 3 units/hr ASDIR RAUL 7.5 mls/hr Titration Protocol 2 UNITS/HR Dextrose/Lactated Ringer's 20 meq in 1,000 mls @ 30 mls/hr 07/12/20 23:30 07/15/20 23:30 D5-Lr+20 Meq Kcl - IV Not Given ASDIR RAUL Midazolam HCl 100 mg in 100 mls @ 1 mls/hr 07/15/20 08:15 07/16/20 10:30 Midazolam 100mg/100ml-0.9%Nacl IVPB 0 mg/hr TITR RAUL 0 mls/hr Titration Protocol 1 MG/HR Dexmedetomidine/Sodium Chloride 400 mcg in 100 mls @ 1.555 mls/hr 07/16/20 15:30 Precedex 400 Mcg/100 Ml Inject IVPB TITR RAUL 0.2 MCG/KG/HR Morphine Sulfate 1 mg 07/14/20 08:24 Morphine Sulfate IVPUSH Q6H PRN PAIN LEVEL 6-10 Multivitamins/Minerals 15 ml 07/06/20 11:45 07/16/20 09:19 Certavite-Antioxidant Liquid NGT 15 ml DAILY RAUL Administration Potassium Phos/Sodium Phos 1 packet 07/09/20 14:00 07/16/20 13:34 Phos-Nak Packet - PO 1 packet TID RAUL Administration Thiamine HCl 100 mg 07/11/20 12:45 07/16/20 09:20 Vitamin B1 Injection - IVPB 100 mg DAILY RAUL Administration Impression 1. azotemia 2. hyponatremia 3. hyperkalemia 4. hypotension 5. sepsis 6. sbo 7. uti 8. liver cirrhosis 9. hypoalbuminemia 10. etoh abuse 11. substance abuse 12. psoriasis 13. acute resp failure 14. malnutrition Plan - cont feeds - cont vent support - monitor blood sugar - replace lytes - discussed with ICU - monitor bp, maintain map 65
[2020-07-16] MEDS: DEXMEDETOMIDINE IN 0.9 % NACL 400 MCG/100 ML VIAL IVPB SCH (16:55)
[2020-07-16 18:52] LABS: HEMATOCRIT 30.2 % (32.4-45.2); HEMOGLOBIN 10.3 GM/dL (10.7-15.3); MCH 28.2 pg (25.7-33.7); MCHC 34.2 g/dl (32.0-36.0); MEAN CELL VOLUME 82.4 fl (80-96); MEAN PLT VOLUME 8.2 fl (7.5-11.1); PLATELET COUNT 119 K/MM3 (134-434); RBC 3.66 M/mm3 (3.60-5.2); RDW 17.7 % (11.6-15.6); WHITE BLOOD COUNT 7.9 K/mm3 (4.0-10.0)
--- NOTE | 2020-07-16 21:01 | PN ---
Progress Note, Physician - Current Medication List Current Medications: Active Medications Banana Based Medical Food (Banatrol Plus Powder Packet) 1 packet GT TID RAUL Last Admin: 07/16/20 13:34 Dose: 1 packet Documented by: Dextrose (D50w (Vial) -) 12.5 gm IVPUSH PRN PRN PRN Reason: HYPOGLYCEMIA Last Admin: 07/08/20 07:38 Dose: 12.5 gm Documented by: Folic Acid (Folic Acid -) 1 mg NGT DAILY RAUL Last Admin: 07/16/20 09:20 Dose: 1 mg Documented by: Heparin Sodium (Porcine) (Heparin -) 5,000 unit SQ TID RAUL Last Admin: 07/16/20 13:34 Dose: 5,000 unit Documented by: Piperacillin Sod/Tazobactam (Sod 3.375 gm/ Dextrose) 50 mls @ 100 mls/hr IVPB Q8H-IV RAUL; Protocol Last Admin: 07/16/20 18:17 Dose: 100 mls/hr Documented by: Vasopressin 40 units/ Sodium (Chloride) 100 mls @ 5 mls/hr IVPB ASDIR RAUL; Protocol Last Titration: 07/16/20 11:30 Dose: 3 units/hr, 7.5 mls/hr Documented by: Dextrose/Lactated Ringer's (D5-Lr+20 Meq Kcl -) 20 meq in 1,000 mls @ 30 mls/hr IV ASDIR RAUL Last Admin: 07/15/20 23:30 Dose: Not Given Documented by: Midazolam HCl (Midazolam 100mg/100ml-0.9%Nacl) 100 mg in 100 mls @ 1 mls/hr IVPB TITR RAUL; Protocol Last Titration: 07/16/20 16:59 Dose: 7 mg/hr, 7 mls/hr Documented by: Dexmedetomidine/Sodium Chloride (Precedex 400 Mcg/100 Ml Inject) 400 mcg in 100 mls @ 1.555 mls/hr IVPB TITR RAUL Last Admin: 07/16/20 16:55 Dose: 0.2 mcg/kg/hr, 1.555 mls/hr Documented by: Morphine Sulfate (Morphine Sulfate) 1 mg IVPUSH Q6H PRN PRN Reason: PAIN LEVEL 6-10 Multivitamins/Minerals (Certavite-Antioxidant Liquid) 15 ml NGT DAILY RAUL Last Admin: 09/14/20 09:19 Dose: 15 ml Documented by: Potassium Phos/Sodium Phos (Phos-Nak Packet -) 1 packet PO TID [facility] Last Admin: 07/16/20 13:34 Dose: 1 packet Documented by: Thiamine HCl (Vitamin B1 Injection -) 100 mg IVPB DAILY [facility] Last Admin: 07/16/20 09:20 Dose: 100 mg Documented by: - Objective Vital Signs: Vital Signs Temperature 98 F 07/16/20 17:00 Pulse Rate 104 H 07/16/20 17:00 Respiratory Rate 16 07/16/20 17:00 Blood Pressure 95/75 07/16/20 17:00 O2 Sat by Pulse Oximetry (%) 98 07/16/20 15:41 Constitutional: Yes: Cachectic, Other (Intubated) Neck: Yes: WNL Cardiovascular: Yes: WNL, Tachycardia Respiratory: Yes: Rhonchi Gastrointestinal: Yes: WNL, Normal Bowel Sounds, Soft Edema: Yes Labs: CBC, BMP 07/16/20 18:00 07/16/20 06:00 INR, PTT INR 2.08 (0.83-1.09) H 07/06/20 08:05 Problem List - Problems (1) Respiratory failure Assessment/Plan: Acute on chronic respiratory failure Multifactorial RLL infiltrates ?Asp pneumonia Cont IV Zosyn Trial off sedation Repeat CXR Code(s): J96.90 - RESPIRATORY FAILURE, UNSP, UNSP W HYPOXIA OR HYPERCAPNIA (2) Sepsis Assessment/Plan: Lactic acidosis Cont IVF Cont IV Zosyn Pt on pressor UTI vs Aspiration pneumonia Blood culture/urine culture negative to date Repeat CXR not much change Code(s): A41.9 - SEPSIS, UNSPECIFIED ORGANISM Qualifiers: Sepsis type: sepsis due to unspecified organism Sepsis acute organ dysfunction status: unspecified Qualified Code(s): A41.9 - Sepsis, unspecified organism (3) Anemia Assessment/Plan: Monitor H/H S/p transfusion PRBC's H/H improved Code(s): D64.9 - ANEMIA, UNSPECIFIED (4) At risk for electrolyte imbalance Code(s): Z91.89 - OTH PERSONAL RISK FACTORS, NOT ELSEWHERE CLASSIFIED (5) SBO (small bowel obstruction) Assessment/Plan: Surgical consult noted Cont NPO Cont IVF Monitor serial abdominal xrays Monitor hypoglycemia CT scan abd showed probable anasacra/ascites Pt now on enteral feeds Code(s): K56.609 - UNSP INTESTNL OBST, UNSP TO PARTIAL VERSUS COMPLETE OBST (6) Liver cirrhosis, alcoholic Code(s): K70.30 - ALCOHOLIC CIRRHOSIS OF LIVER WITHOUT ASCITES (7) Hypoalbuminemia Code(s): E88.09 - OTH DISORDERS OF PLASMA-PROTEIN METABOLISM, NEC (8) Substance abuse Code(s): F19.10 - OTHER PSYCHOACTIVE SUBSTANCE ABUSE, UNCOMPLICATED (9) Cachexia Code(s): R64 - CACHEXIA (10) Severe malnutrition Code(s): E43 - UNSPECIFIED SEVERE PROTEIN-CALORIE MALNUTRITION
[2020-07-17] MEDS ORDERED: FUROSEMIDE 40 MG/4 ML INJECTABLE VIAL IVPUSH ONE ×2 (01:30→13:30)
[2020-07-17] MEDS ORDERED: PIPERACILLIN/TAZOBACTAM 3.375 GM VIAL IVPB ONE ×3 (01:50→18:00)
[2020-07-17] MEDS ORDERED: DEXTROSE 5%-WATER - 50 ML IVPB ONE ×3 (01:50→18:00)
[2020-07-17] MEDS: PIPERACILLIN/TAZOB 3.375 GM 3.375 GM in DEXTROSE 5%-WATER - 50 ML IVPB SCH ×3 (01:52→18:35)
[2020-07-17] MEDS: MIDAZOLAM IN 0.9 % SOD.CHLORID 100 MG/100 ML PLAST..BAG IVPB SCH ×2 (01:52→08:15)
[2020-07-17] MEDS: D5-LR+20 MEQ KCL - 20 MEQ/1,000 ML INFUS.BAG IV SCH (01:57)
[2020-07-17] MEDS: BANATROL PLUS POWDER PACKET GT SCH ×3 (05:36→21:50)
[2020-07-17] MEDS: HEPARIN NA (PORCINE) 5,000 UNITS/ML 1ML VIAL SQ SCH ×3 (05:36→21:50)
[2020-07-17] MEDS: NAPH,MB-DB/K PH,MBDB POWDER PACKET PO SCH ×3 (05:49→21:50)
[2020-07-17 06:20] LABS: HEMOGLOBIN 10.1 GM/dL (10.7-15.3); MCH 28.6 pg (25.7-33.7); MCHC 34.9 g/dl (32.0-36.0); MEAN CELL VOLUME 81.8 fl (80-96); PLATELET COUNT 109 K/MM3 (134-434); RBC 3.55 M/mm3 (3.60-5.2); RDW 18.1 % (11.6-15.6); WHITE BLOOD COUNT 6.2 K/mm3 (4.0-10.0)
[2020-07-17 06:26] LABS: ALBUMIN 1.1 g/dl (3.4-5.0); BILIRUBIN,TOTAL 0.6 mg/dL (0.2-1); BLOOD UREA NITROGEN 16.1 mg/dL (7-18); CREATININE 0.2 mg/dL (0.55-1.3); MAGNESIUM 1.4 mg/dL (1.8-2.4); PHOSPHOROUS 2.2 mg/dL (2.5-4.9); TOT PROT 4.4 g/dl (6.4-8.2)
[2020-07-17 06:42] LABS: CALCIUM 6.5 mg/dL (8.5-10.1)
[2020-07-17] MEDS: VASOPRESSIN 40 UNITS in SODIUM CHLORIDE 98 ML IVPB SCH ×2 (07:00→14:00)
[2020-07-17] MEDS ORDERED: POTASSIUM CHLORIDE ORAL LIQUID 20 MEQ/15 ML PO ONE (07:57)
[2020-07-17] MEDS ORDERED: MAGNESIUM SULF 50% (8.12 MEQ/2 ML-1 GM VIAL) IVPB ONE ×2 (07:58→18:00)
[2020-07-17] MEDS ORDERED: NAPH,MB-DB/K PH,MBDB POWDER PACKET PO ONE (07:59)
[2020-07-17] MEDS ORDERED: MAGNESIUM 1GM/D5W - 1 GM/100 ML IVPB IVPB ONE (08:30)
[2020-07-17] MEDS ORDERED: POTASSIUM CHLORIDE 20 MEQ PREMIX IVPB 100 ML IVPB ONE (08:30)
--- NOTE | 2020-07-17 09:10 | PN ---
Progress Note, Physician History of Present Illness: continues to intubated dooing poorly on pressors - Current Medication List Current Medications: Active Medications Banana Based Medical Food (Banatrol Plus Powder Packet) 1 packet GT TID RAUL Last Admin: 07/17/20 05:36 Dose: 1 packet Documented by: Dextrose (D50w (Vial) -) 12.5 gm IVPUSH PRN PRN PRN Reason: HYPOGLYCEMIA Last Admin: 07/08/20 07:38 Dose: 12.5 gm Documented by: Folic Acid (Folic Acid -) 1 mg NGT DAILY RAUL Last Admin: 07/16/20 09:20 Dose: 1 mg Documented by: Heparin Sodium (Porcine) (Heparin -) 5,000 unit SQ TID RAUL Last Admin: 07/17/20 05:36 Dose: 5,000 unit Documented by: Piperacillin Sod/Tazobactam (Sod 3.375 gm/ Dextrose) 50 mls @ 100 mls/hr IVPB Q8H-IV RAUL; Protocol Last Admin: 07/17/20 01:52 Dose: 100 mls/hr Documented by: Vasopressin 40 units/ Sodium (Chloride) 100 mls @ 5 mls/hr IVPB ASDIR RAUL; Protocol Last Titration: 07/17/20 00:00 Dose: 0 units/hr, 0 mls/hr Documented by: Dextrose/Lactated Ringer's (D5-Lr+20 Meq Kcl -) 20 meq in 1,000 mls @ 30 mls/hr IV ASDIR RAUL Last Admin: 07/17/20 01:57 Dose: 30 mls/hr Documented by: Midazolam HCl (Midazolam 100mg/100ml-0.9%Nacl) 100 mg in 100 mls @ 1 mls/hr IVPB TITR RAUL; Protocol Last Titration: 07/17/20 04:03 Dose: 7 mg/hr, 7 mls/hr Documented by: Dexmedetomidine/Sodium Chloride (Precedex 400 Mcg/100 Ml Inject) 400 mcg in 100 mls @ 1.555 mls/hr IVPB TITR RAUL Last Infusion: 07/17/20 05:37 Dose: 0.7 mcg/kg/hr, 5.442 mls/hr Documented by: Magnesium Sulfate/Dextrose (Magnesium 1gm/D5w -) 1 gm in 100 mls @ 100 mls/hr IVPB ONCE ONE Stop: 07/17/20 09:29 Morphine Sulfate (Morphine Sulfate) 1 mg IVPUSH Q6H PRN PRN Reason: PAIN LEVEL 6-10 Multivitamins/Minerals (Certavite-Antioxidant Liquid) 15 ml NGT DAILY [facility] Last Admin: 07/16/20 09:19 Dose: 15 ml Documented by: Potassium Phos/Sodium Phos (Phos-Nak Packet -) 1 packet PO TID [facility] Last Admin: 07/17/20 05:49 Dose: 1 packet Documented by: Thiamine HCl (Vitamin B1 Injection -) 100 mg IVPB DAILY [facility] Last Admin: 07/16/20 09:20 Dose: 100 mg Documented by: - Objective Vital Signs: Vital Signs Temperature 97.8 F 07/17/20 06:04 Pulse Rate 66 07/17/20 08:18 Respiratory Rate 15 07/17/20 08:18 Blood Pressure 70/58 L 07/17/20 06:04 O2 Sat by Pulse Oximetry (%) 99 07/17/20 08:18 Constitutional: Yes: Other (failure to thrive) Cardiovascular: Yes: S1, S2 Respiratory: Yes: Intubated, Mechanically Ventilated Gastrointestinal: Yes: Normal Bowel Sounds, Soft Musculoskeletal: Yes: WNL Extremities: Yes: WNL Neurological: Yes: Other Labs: CBC, BMP 07/17/20 05:50 07/17/20 05:50 INR, PTT INR 2.08 (0.83-1.09) H 07/06/20 08:05 - ....Imaging Chest X-ray: Report Reviewed, Image Reviewed Assessment/Plan Pneumonia likely Aspiration UTI Sepsis Hyponatremia SBO resolving Alcohol/Heroin Abuse Anemia Failure to Thrive Severe Protein Calorie Malnutrition uti sacral wounds plan continue abx nutrition as per icu vent mgmt repeat cx if needed close watch cc 38 min
[2020-07-17] MEDS: THIAMINE HCL 200 MG/2 ML VIAL IVPB SCH (09:18)
[2020-07-17] MEDS: FOLIC ACID 1 MG TABLET (FP) NGT SCH (09:18)
[2020-07-17] MEDS ORDERED: PT OWN MED DRAWER 7, Y5N ONE (09:50)
[2020-07-17] MEDS: MULTIVIT-MINERALS ORAL LIQUID NGT SCH (09:51)
--- NOTE | 2020-07-17 10:53 | PN ---
Teaching Attending Note Name of Resident: Yadira Hamilton ATTENDING PHYSICIAN STATEMENT I saw and evaluated the patient. I reviewed the resident's note and discussed the case with the resident. I agree with the resident's findings and plan as documented. SUBJECTIVE: Pt seen and examined in the ICU. Remains intubated, sedated on vasopressin gtt. OBJECTIVE: Vital Signs Period Temp Pulse Resp BP Sys/Campbell Pulse Ox Last 24 Hr 97.6 F-98.4 F 66-132 15-24 70-107/57-94 94-100 Intake & Output 07/14/20 07/15/20 07/16/20 07/17/20 23:59 23:59 23:59 23:59 Intake Total 744 2420 2313 1148 Output Total 145 397 0881 1200 Balance 344 2120 1313 -52 Weight 31.026 kg 31.099 kg 31.933 kg Gen: intubated, sedated, cachectic Heart: RRR Lung: scattered rhonchi Abd: soft, nontender, +ascites Ext: no edema CBC, BMP 07/17/20 05:50 07/17/20 05:50 Active Medications Albumin Human (Albumin Human 25%) 12.5 gm IVPB Q30M RAUL Stop: 07/17/20 11:16 Banana Based Medical Food (Banatrol Plus Powder Packet) 1 packet GT TID RAUL Last Admin: 07/17/20 05:36 Dose: 1 packet Documented by: Dextrose (D50w (Vial) -) 12.5 gm IVPUSH PRN PRN PRN Reason: HYPOGLYCEMIA Last Admin: 07/08/20 07:38 Dose: 12.5 gm Documented by: Folic Acid (Folic Acid -) 1 mg NGT DAILY RAUL Last Admin: 07/17/20 09:18 Dose: 1 mg Documented by: Heparin Sodium (Porcine) (Heparin -) 5,000 unit SQ TID RAUL Last Admin: 07/17/20 05:36 Dose: 5,000 unit Documented by: Piperacillin Sod/Tazobactam (Sod 3.375 gm/ Dextrose) 50 mls @ 100 mls/hr IVPB Q8H-IV RAUL; Protocol Last Admin: 07/17/20 09:17 Dose: 100 mls/hr Documented by: Vasopressin 40 units/ Sodium (Chloride) 100 mls @ 5 mls/hr IVPB ASDIR RAUL; Prot ocol Last Titration: 07/17/20 08:00 Dose: 3 units/hr, 7.5 mls/hr Documented by: Dextrose/Lactated Ringer's (D5-Lr+20 Meq Kcl -) 20 meq in 1,000 mls @ 30 mls/hr IV ASDIR RAUL Last Admin: 07/17/20 01:57 Dose: 30 mls/hr Documented by: Midazolam HCl (Midazolam 100mg/100ml-0.9%Nacl) 100 mg in 100 mls @ 1 mls/hr IVPB TITR RAUL; Protocol Last Titration: 07/17/20 08:30 Dose: 5 mg/hr, 5 mls/hr Documented by: Dexmedetomidine/Sodium Chloride (Precedex 400 Mcg/100 Ml Inject) 400 mcg in 100 mls @ 1.555 mls/hr IVPB TITR RAUL Last Infusion: 07/17/20 08:00 Dose: 1 mcg/kg/hr, 7.775 mls/hr Documented by: Morphine Sulfate (Morphine Sulfate) 1 mg IVPUSH Q6H PRN PRN Reason: PAIN LEVEL 6-10 Multivitamins/Minerals (Certavite-Antioxidant Liquid) 15 ml NGT DAILY [facility] Last Admin: 07/17/20 09:51 Dose: 15 ml Documented by: Potassium Phos/Sodium Phos (Phos-Nak Packet -) 1 packet PO TID RAUL Last Admin: 07/17/20 05:49 Dose: 1 packet Documented by: Thiamine HCl (Vitamin B1 Injection -) 100 mg IVPB DAILY [facility] Last Admin: 07/17/20 09:18 Dose: 100 mg Documented by: ASSESSMENT AND PLAN: Acute Hypoxic Respiratory Failure Pneumonia likely Aspiration UTI Sepsis Hyponatremia Small Bowel Obstruction Alcohol/Heroin Abuse Anemia Failure to Thrive Severe Protein Calorie Malnutrition Refeeding Syndrome - albumin/lasix today - monitor urine output, creatinine - replete lytes - continue antibiotics - titrate pressors to maintain MAP >65 - titrate O2 to keep SpO2 >90% - hold sedation to assess mental status - spontaneous breathing trials as tolerated - titrate enteral feeds to goal - DVT/GI prophylaxis - continue ICU monitoring critical care time spent in reviewing chart, evaluating patient and formulating plan 35 min
--- NOTE | 2020-07-17 11:34 | PN ---
Physical Exam: SUBJECTIVE: Patient seen and examined bedside. Intubated. Last night was off vaso and versed, only on precedex. This morning BP was on the lower side and pateitn tachy, drips restarted by nurse @ 7:30 AM. Patient still having diarrhea. OBJECTIVE: Vital Signs Temp Pulse Resp BP Pulse Ox 97.8 F 66 15 102/82 99 07/17/20 06:04 07/17/20 08:18 07/17/20 08:18 07/17/20 08:00 07/17/20 08:18 GENERAL: Intubated, alert, too weak to move HEAD: No signs of trauma, temporal wasting EYES: PERRLA, EOMI, sclera anicteric ENT: intubated, ET tube in place NECK: supple LUNGS: dec breath sounds at bilateral bases HEART: RRR normal S1 and S2, ABDOMEN: soft, extremely emaciated EXTREMITIES : cachectic and weeping with bilateral pitting edema in upper and lower ext NEUROLOGICAL: Pt able to comply to commands SKIN: thin, fragile. Skin around rectum is raw and slightly bloody. Stage 2 sacral ulcer dressed. Intake & Output 07/14/20 07/15/20 07/16/20 07/17/20 23:59 23:59 23:59 23:59 Intake Total 744 2420 2313 1148 Output Total 179 911 8493 1200 Balance 344 2120 1313 -52 Weight 68 lb 6.4 oz 68 lb 9 oz 70 lb 6.4 oz Laboratory Results - last 24 hr 07/16/20 07/17/20 07/17/20 18:00 04:32 05:50 WBC 7.9 6.2 RBC 3.66 3.55 L Hgb 10.3 L 10.1 L Hct 30.2 L D 29.0 L MCV 82.4 81.8 MCH 28.2 28.6 MCHC 34.2 34.9 RDW 17.7 H 18.1 H Plt Count 119 L 109 L MPV 8.2 8.0 Sodium Potassium Chloride Carbon Dioxide Anion Gap BUN Creatinine Est GFR (CKD-EPI)AfAm Est GFR (CKD-EPI)NonAf POC Glucometer 89 Random Glucose Calcium Phosphorus Magnesium Total Bilirubin AST ALT Alkaline Phosphatase Total Protein Albumin 07/17/20 05:50 WBC RBC Hgb Hct MCV MCH MCHC RDW Plt Count MPV Sodium 138 Potassium 3.0 L Chloride 108 H Carbon Dioxide 24 Anion Gap 6 L BUN 16.1 Creatinine 0.2 L Est GFR (CKD-EPI)AfAm 196.46 Est GFR (CKD-EPI)NonAf 169.51 POC Glucometer Random Glucose 91 Calcium 6.5 L* Phosphorus 2.2 L Magnesium 1.4 L Total Bilirubin 0.6 AST 24 ALT 52 Alkaline Phosphatase 257 H Total Protein 4.4 L Albumin 1.1 L Active Medications Generic Name Dose Route Start Last Admin Trade Name Freq PRN Reason Stop Dose Admin Banana Based Medical Food 1 packet 07/10/20 22:00 07/17/20 05:36 Banatrol Plus Powder Packet GT 1 packet TID RAUL Administration Dextrose 12.5 gm 07/08/20 07:08 07/08/20 07:38 D50w (Vial) - IVPUSH 12.5 gm PRN PRN Administration HYPOGLYCEMIA Folic Acid 1 mg 07/06/20 10:00 07/17/20 09:18 Folic Acid - NGT 1 mg DAILY RAUL Administration Heparin Sodium (Porcine) 5,000 unit 07/10/20 22:00 07/17/20 05:36 Heparin - SQ 5,000 unit TID RAUL Administration Piperacillin Sod/Tazobactam 50 mls @ 100 mls/hr 07/02/20 18:00 07/17/20 09:17 Sod 3.375 gm/ Dextrose IVPB 100 mls/hr Q8H-IV RAUL Administration Protocol Vasopressin 40 units/ Sodium 100 mls @ 5 mls/hr 07/08/20 07:00 07/17/20 08:00 Chloride IVPB 3 units/hr ASDIR RAUL 7.5 mls/hr Titration Protocol 2 UNITS/HR Dextrose/Lactated Ringer's 20 meq in 1,000 mls @ 30 mls/hr 07/12/20 23:30 07/17/20 01:57 D5-Lr+20 Meq Kcl - IV 30 mls/hr ASDIR RAUL Administration Midazolam HCl 100 mg in 100 mls @ 1 mls/hr 07/15/20 08:15 07/17/20 08:30 Midazolam 100mg/100ml-0.9%Nacl IVPB 5 mg/hr TITR RAUL 5 mls/hr Titration Protocol 1 MG/HR Dexmedetomidine/Sodium Chloride 400 mcg in 100 mls @ 1.555 mls/hr 07/16/20 15:30 07/17/20 08:00 Precedex 400 Mcg/100 Ml Inject IVPB 1 mcg/kg/hr TITR RAUL 7.775 mls/hr Infusion 0.2 MCG/KG/HR Morphine Sulfate 1 mg 07/14/20 08:24 Morphine Sulfate IVPUSH Q6H PRN PAIN LEVEL 6-10 Multivitamins/Minerals 15 ml 07/06/20 11:45 07/17/20 09:51 Certavite-Antioxidant Liquid NGT 15 ml DAILY RAUL Administration Potassium Phos/Sodium Phos 1 packet 07/09/20 14:00 07/17/20 05:49 Phos-Nak Packet - PO 1 packet TID RAUL Administration Thiamine HCl 100 mg 07/11/20 12:45 07/17/20 09:18 Vitamin B1 Injection - IVPB 100 mg DAILY RAUL Administration ASSESSMENT/PLAN: This is a 34 year old female with PMH of cachexia, polysubstance abuse (ETOH, heroin), cirrhosis, HTN, psoriasis, and asthma. She presented to the ER after an episode of hypoglycemia at home, and was BIBEMS with hypoglycemia, hypotension, hypoxia, hypothermia. Admitted to ICU due to possible sepsis due to UTI and PNA, Refeeding syndrome, and SBO. Neuro - lethargic, arousable, & weak - Pt intubated, on precedex, continue sedation vacation - start precedex and continue to try to stay off versed Cardiac - Hx of HTN >> hold bp meds - Vasso only if MAP < 65 - continue to wean pressors Resp - pt has history of asthma/ albuterol PRN - intubated 07/04 - patient on CPAP today, continue to wean - CXR 07/16 shows overall improvement with mild increase in R LL infiltrates - Repeat CXR tomorrow GI - pt still having diarrhea - Transaminitis trending down, continue to monitor Heme - 1 unit PRBC yesterday >> hbg now 10.1 - continue to monitor ID - Sepsis secondary UTI vs Right sided PNA - ID consult appreciated (Dr. Martines) Zosyn day 16 - repeat CXR tomorrow morning Renal - net neg 52 cc from yesterday - give albumin and then 40 mg IV lasixs today Endocrine - continue to monitor sugars - TSH elevated, fT4 low, reevaluate once patient is more stable FEN - monitor electrolytes including phosphate and magnesium possible refeeding syndrome - keep K> 4, Mg> 2, PO4 > 3.5. - potassium, mg, & phos repleated today - feeds increased to 40cc Lines - central line in RIJ 07/10 plan to remove and replace line today PPx - DVT- heparin 5000 units per TID - Protonixs held due to hypomagnesmia Dispo: ethics consulted Visit type - Emergency Visit Emergency Visit: Yes ED Registration Date: 07/01/20 Care time: The patient presented to the Emergency Department on the above date and was hospitalized for further evaluation of their emergent condition. - New Patient This patient is new to me today: No - Critical Care Critical Care patient: Yes Total Critical Care Time (in minutes): 37 Critical Care Statement: The care of this patient involved high complexity decision making to prevent further life threatening deterioration of the patient's condition and/or to evaluate & treat vital organ system(s) failure or risk of failure. - Discharge Referral Referred to [facility] Med [facility].C[facility] No ATTENDING PHYSICIAN STATEMENT I saw and evaluated the patient. I reviewed the resident's note and discussed the case with the resident. I agree with the resident's findings and plan as documented. SUBJECTIVE: OBJECTIVE: ASSESSMENT AND PLAN:
[2020-07-17] MEDS: ALBUMIN HUMAN 25% 12.5 GM/50 ML VIAL IVPB SCH ×2 (11:52→12:25)
[2020-07-17] MEDS: POTASSIUM CHLORIDE ORAL LIQUID 20 MEQ/15 ML PO SCH (14:00)
--- NOTE | 2020-07-17 14:15 | PROC ---
Central Line Insertion Indication: Sepsis Risks and Benefits Explained: No (emergency line) Consent on Chart: Yes Central Line: Triple Lumen Catheter Anesthesia: 1% Lidocaine Sterile Technique: Yes Ultrasound Guided Assistance: Yes Position: Left Internal Jugular Post Insertion: Yes: Chest X-Ray Ordered Sterile Dressing Applied: Yes
[2020-07-17] MEDS ORDERED: VASOPRESSIN 20 UNITS/ML VIAL IV ONE (14:54)
--- NOTE | 2020-07-17 16:34 | PN ---
Progress Note, Physician History of Present Illness: Pt seen and examined at bedside. She remains in the ICU. She remains intubated. - Current Medication List Current Medications: Active Medications Banana Based Medical Food (Banatrol Plus Powder Packet) 1 packet GT TID RAUL Last Admin: 07/17/20 05:36 Dose: 1 packet Documented by: Dextrose (D50w (Vial) -) 12.5 gm IVPUSH PRN PRN PRN Reason: HYPOGLYCEMIA Last Admin: 07/08/20 07:38 Dose: 12.5 gm Documented by: Folic Acid (Folic Acid -) 1 mg NGT DAILY RAUL Last Admin: 07/17/20 09:18 Dose: 1 mg Documented by: Heparin Sodium (Porcine) (Heparin -) 5,000 unit SQ TID RAUL Last Admin: 07/17/20 05:36 Dose: 5,000 unit Documented by: Piperacillin Sod/Tazobactam (Sod 3.375 gm/ Dextrose) 50 mls @ 100 mls/hr IVPB Q8H-IV RAUL; Protocol Last Admin: 07/17/20 09:17 Dose: 100 mls/hr Documented by: Vasopressin 40 units/ Sodium (Chloride) 100 mls @ 5 mls/hr IVPB ASDIR RAUL; Protocol Last Titration: 07/17/20 08:00 Dose: 3 units/hr, 7.5 mls/hr Documented by: Dextrose/Lactated Ringer's (D5-Lr+20 Meq Kcl -) 20 meq in 1,000 mls @ 30 mls/hr IV ASDIR RAUL Last Admin: 07/17/20 01:57 Dose: 30 mls/hr Documented by: Midazolam HCl (Midazolam 100mg/100ml-0.9%Nacl) 100 mg in 100 mls @ 1 mls/hr IVPB TITR RAUL; Protocol Last Titration: 07/17/20 09:30 Dose: 0 mg/hr, 0 mls/hr Documented by: Dexmedetomidine/Sodium Chloride (Precedex 400 Mcg/100 Ml Inject) 400 mcg in 100 mls @ 1.555 mls/hr IVPB TITR RAUL Last Infusion: 07/17/20 08:00 Dose: 1 mcg/kg/hr, 7.775 mls/hr Documented by: Morphine Sulfate (Morphine Sulfate) 1 mg IVPUSH Q6H PRN PRN Reason: PAIN LEVEL 6-10 Multivitamins/Minerals (Certavite-Antioxidant Liquid) 15 ml NGT DAILY [facility] Last Admin: 07/17/20 09:51 Dose: 15 ml Documented by: Potassium Chloride (Potassium Chloride Oral Liquid) 40 meq PO DAILY [facility] Potassium Phos/Sodium Phos (Phos-Nak Packet -) 1 packet PO TID RAUL Last Admin: 07/17/20 05:49 Dose: 1 packet Documented by: Thiamine HCl (Vitamin B1 Injection -) 100 mg IVPB DAILY [facility] Last Admin: 07/17/20 09:18 Dose: 100 mg Documented by: - Objective Vital Signs: Vital Signs Temperature 98.2 F 07/17/20 14:00 Pulse Rate 102 H 07/17/20 14:00 Respiratory Rate 34 H 07/17/20 15:50 Blood Pressure 83/65 L 07/17/20 14:00 O2 Sat by Pulse Oximetry (%) 99 07/17/20 15:50 Constitutional: Yes: Cachectic Eyes: Yes: Conjunctiva Clear HENT: Yes: Atraumatic Neck: Yes: Supple Cardiovascular: Yes: S1, S2 Respiratory: Yes: Mechanically Ventilated Gastrointestinal: Yes: Normal Bowel Sounds, Soft Genitourinary: Yes: Uribe Present Musculoskeletal: Yes: Muscle Weakness Edema: No Neurological: Yes: Lethargy Labs: CBC, BMP 07/17/20 05:50 07/17/20 05:50 INR, PTT INR 2.08 (0.83-1.09) H 07/06/20 08:05 Problem List - Problems (1) Hypoglycemia Code(s): E16.2 - HYPOGLYCEMIA, UNSPECIFIED (2) Sepsis Code(s): A41.9 - SEPSIS, UNSPECIFIED ORGANISM Qualifiers: Sepsis type: sepsis due to unspecified organism Sepsis acute organ dysfunction status: unspecified Qualified Code(s): A41.9 - Sepsis, unspecified organism (3) Hypoalbuminemia Code(s): E88.09 - OTH DISORDERS OF PLASMA-PROTEIN METABOLISM, NEC (4) Hyponatremia Code(s): E87.1 - HYPO-OSMOLALITY AND HYPONATREMIA Assessment/Plan Current Medications Generic Name Dose Route Start Last Admin Trade Name Freq PRN Reason Stop Dose Admin Banana Based Medical Food 1 packet 07/10/20 22:00 07/17/20 05:36 Banatrol Plus Powder Packet GT 1 packet TID [facility] Administration Dextrose 12.5 gm 07/08/20 07:08 07/08/20 07:38 D50w (Vial) - IVPUSH 12.5 gm PRN PRN Administration HYPOGLYCEMIA Folic Acid 1 mg 07/06/20 10:00 07/17/20 09:18 Folic Acid - NGT 1 mg DAILY RAUL Administration Heparin Sodium (Porcine) 5,000 unit 07/10/20 22:00 07/17/20 05:36 Heparin - SQ 5,000 unit TID RAUL Administration Piperacillin Sod/Tazobactam 50 mls @ 100 mls/hr 07/02/20 18:00 07/17/20 09:17 Sod 3.375 gm/ Dextrose IVPB 100 mls/hr Q8H-IV RAUL Administration Protocol Vasopressin 40 units/ Sodium 100 mls @ 5 mls/hr 07/08/20 07:00 07/17/20 08:00 Chloride IVPB 3 units/hr ASDIR RAUL 7.5 mls/hr Titration Protocol 2 UNITS/HR Dextrose/Lactated Ringer's 20 meq in 1,000 mls @ 30 mls/hr 07/12/20 23:30 07/17/20 01:57 D5-Lr+20 Meq Kcl - IV 30 mls/hr ASDIR RAUL Administration Midazolam HCl 100 mg in 100 mls @ 1 mls/hr 07/15/20 08:15 07/17/20 09:30 Midazolam 100mg/100ml-0.9%Nacl IVPB 0 mg/hr TITR RAUL 0 mls/hr Titration Protocol 1 MG/HR Dexmedetomidine/Sodium Chloride 400 mcg in 100 mls @ 1.555 mls/hr 07/16/20 15:30 07/17/20 08:00 Precedex 400 Mcg/100 Ml Inject IVPB 1 mcg/kg/hr TITR RAUL 7.775 mls/hr Infusion 0.2 MCG/KG/HR Magnesium Sulfate 1 gm 07/17/20 18:00 Magnesium Sulfate IVPB 07/17/20 18:01 ONCE ONE Morphine Sulfate 1 mg 07/14/20 08:24 Morphine Sulfate IVPUSH Q6H PRN PAIN LEVEL 6-10 Multivitamins/Minerals 15 ml 07/06/20 11:45 07/17/20 09:51 Certavite-Antioxidant Liquid NGT 15 ml DAILY RAUL Administration Potassium Chloride 40 meq 07/17/20 12:30 Potassium Chloride Oral Liquid PO DAILY [facility] Potassium Phos/Sodium Phos 1 packet 07/09/20 14:00 07/17/20 05:49 Phos-Nak Packet - PO 1 packet TID RAUL Administration Thiamine HCl 100 mg 07/11/20 12:45 07/17/20 09:18 Vitamin B1 Injection - IVPB 100 mg DAILY RAUL Administration Impression 1. azotemia 2. hyponatremia 3. hyperkalemia 4. hypotension 5. sepsis 6. sbo 7. uti 8. liver cirrhosis 9. hypoalbuminemia 10. etoh abuse 11. substance abuse 12. psoriasis 13. acute resp failure 14. malnutrition Plan - replace lytes - feeds as tolerated - vent support - discussed with ICU - monitor bp, maintain map 65
[2020-07-17] MEDS: DEXMEDETOMIDINE IN 0.9 % NACL 400 MCG/100 ML VIAL IVPB SCH (18:00)
--- NOTE | 2020-07-17 18:22 | PN ---
Progress Note, Physician History of Present Illness: INTUBATED awake and communicating with eyes and nodding - Current Medication List Current Medications: Active Medications Banana Based Medical Food (Banatrol Plus Powder Packet) 1 packet GT TID RAUL Last Admin: 07/17/20 05:36 Dose: 1 packet Documented by: Dextrose (D50w (Vial) -) 12.5 gm IVPUSH PRN PRN PRN Reason: HYPOGLYCEMIA Last Admin: 07/08/20 07:38 Dose: 12.5 gm Documented by: Folic Acid (Folic Acid -) 1 mg NGT DAILY RAUL Last Admin: 07/17/20 09:18 Dose: 1 mg Documented by: Heparin Sodium (Porcine) (Heparin -) 5,000 unit SQ TID RAUL Last Admin: 07/17/20 05:36 Dose: 5,000 unit Documented by: Piperacillin Sod/Tazobactam (Sod 3.375 gm/ Dextrose) 50 mls @ 100 mls/hr IVPB Q8H-IV RAUL; Protocol Last Admin: 07/17/20 09:17 Dose: 100 mls/hr Documented by: Vasopressin 40 units/ Sodium (Chloride) 100 mls @ 5 mls/hr IVPB ASDIR RAUL; Protocol Last Titration: 07/17/20 08:00 Dose: 3 units/hr, 7.5 mls/hr Documented by: Dextrose/Lactated Ringer's (D5-Lr+20 Meq Kcl -) 20 meq in 1,000 mls @ 30 mls/hr IV ASDIR RAUL Last Admin: 07/17/20 01:57 Dose: 30 mls/hr Documented by: Midazolam HCl (Midazolam 100mg/100ml-0.9%Nacl) 100 mg in 100 mls @ 1 mls/hr IVPB TITR RAUL; Protocol Last Titration: 07/17/20 09:30 Dose: 0 mg/hr, 0 mls/hr Documented by: Dexmedetomidine/Sodium Chloride (Precedex 400 Mcg/100 Ml Inject) 400 mcg in 100 mls @ 1.555 mls/hr IVPB TITR RAUL Last Infusion: 07/17/20 08:00 Dose: 1 mcg/kg/hr, 7.775 mls/hr Documented by: Morphine Sulfate (Morphine Sulfate) 1 mg IVPUSH Q6H PRN PRN Reason: PAIN LEVEL 6-10 Multivitamins/Minerals (Certavite-Antioxidant Liquid) 15 ml NGT DAILY [facility] Last Admin: 07/17/20 09:51 Dose: 15 ml Documented by: Potassium Chloride (Potassium Chloride Oral Liquid) 40 meq PO DAILY [facility] Potassium Phos/Sodium Phos (Phos-Nak Packet -) 1 packet PO TID [facility] Last Admin: 07/17/20 05:49 Dose: 1 packet Documented by: Thiamine HCl (Vitamin B1 Injection -) 100 mg IVPB DAILY [facility] Last Admin: 07/17/20 09:18 Dose: 100 mg Documented by: - Objective Vital Signs: Vital Signs Temperature 98.2 F 07/17/20 14:00 Pulse Rate 102 H 07/17/20 14:00 Respiratory Rate 34 H 07/17/20 15:50 Blood Pressure 83/65 L 07/17/20 14:00 O2 Sat by Pulse Oximetry (%) 99 07/17/20 15:50 Constitutional: Yes: No Distress HENT: Yes: Atraumatic Neck: Yes: Supple Cardiovascular: Yes: Regular Rate and Rhythm Respiratory: Yes: Rhonchi Gastrointestinal: Yes: Normal Bowel Sounds Extremities: Yes: WNL Neurological: Yes: Alert Labs: CBC, BMP 07/17/20 05:50 07/17/20 05:50 INR, PTT INR 2.08 (0.83-1.09) H 07/06/20 08:05 Problem List - Problems (1) At risk for electrolyte imbalance Assessment/Plan: MONITOR AND REPLACE Code(s): Z91.89 - OT PERSONAL RISK FACTORS, NOT ELSEWHERE CLASSIFIED (2) SBO (small bowel obstruction) Assessment/Plan: ON TUBE FEEDS NOW Code(s): K56.609 - UNSP INTESTNL OBST, UNSP TO PARTIAL VERSUS COMPLETE OBST (3) Sepsis Assessment/Plan: ON IV ABX CXS NOTED wbc wnl Code(s): A41.9 - SEPSIS, UNSPECIFIED ORGANISM Qualifiers: Sepsis type: sepsis due to unspecified organism Sepsis acute organ dysfunction status: unspecified Qualified Code(s): A41.9 - Sepsis, unspecified organism (4) Alcoholic liver damage Code(s): K70.9 - ALCOHOLIC LIVER DISEASE, UNSPECIFIED (5) Hypoalbuminemia Code(s): E88.09 - OTH DISORDERS OF PLASMA-PROTEIN METABOLISM, NEC (6) Hyponatremia Code(s): E87.1 - HYPO-OSMOLALITY AND HYPONATREMIA (7) Liver cirrhosis, alcoholic Code(s): K70.30 - ALCOHOLIC CIRRHOSIS OF LIVER WITHOUT ASCITES (8) Ischemic hepatitis Code(s): K75.9 - INFLAMMATORY LIVER DISEASE, UNSPECIFIED (9) Respiratory failure Assessment/Plan: INTUBATED Code(s): J96.90 - RESPIRATORY FAILURE, UNSP, UNSP W HYPOXIA OR HYPERCAPNIA (10) UTI (urinary tract infection) Assessment/Plan: SEPSIS..RESOLVING ON IV ABX Code(s): N39.0 - URINARY TRACT INFECTION, SITE NOT SPECIFIED Qualifiers: Urinary tract infection type: site unspecified Hematuria presence: with hematuria Qualified Code(s): N39.0 - Urinary tract infection, site not specified; R31.9 - Hematuria, unspecified (11) Elevated LFTs Assessment/Plan: IMPROVING MONITOR Code(s): R79.89 - OTHER SPECIFIED ABNORMAL FINDINGS OF BLOOD CHEMISTRY (12) Hypothermia Assessment/Plan: stable Code(s): T68.XXXA - HYPOTHERMIA, INITIAL ENCOUNTER Assessment/Plan COVERING FOR DR FOREMAN TODAY ICU CC TIME 35 MIN
[2020-07-18] MEDS ORDERED: PIPERACILLIN/TAZOBACTAM 3.375 GM VIAL IVPB ONE ×2 (02:49→09:33)
[2020-07-18] MEDS ORDERED: DEXTROSE 5%-WATER - 50 ML IVPB ONE ×2 (02:50→09:33)
[2020-07-18] MEDS: PIPERACILLIN/TAZOB 3.375 GM 3.375 GM in DEXTROSE 5%-WATER - 50 ML IVPB SCH ×2 (02:53→09:42)
[2020-07-18] MEDS: D5-LR+20 MEQ KCL - 20 MEQ/1,000 ML INFUS.BAG IV SCH (02:53)
[2020-07-18] MEDS: NAPH,MB-DB/K PH,MBDB POWDER PACKET PO SCH ×3 (05:40→21:18)
[2020-07-18] MEDS: HEPARIN NA (PORCINE) 5,000 UNITS/ML 1ML VIAL SQ SCH ×3 (05:40→21:18)
[2020-07-18] MEDS: BANATROL PLUS POWDER PACKET GT SCH ×3 (05:40→21:18)
[2020-07-18] MEDS: VASOPRESSIN 40 UNITS in SODIUM CHLORIDE 98 ML IVPB SCH ×2 (06:13→10:08)
[2020-07-18 06:40] LABS: HEMATOCRIT 22.3 % (32.4-45.2); HEMOGLOBIN 7.8 GM/dL (10.7-15.3); MCH 28.8 pg (25.7-33.7); MCHC 35.1 g/dl (32.0-36.0); MEAN CELL VOLUME 82.1 fl (80-96); MEAN PLT VOLUME 7.6 fl (7.5-11.1); PLATELET COUNT 60 K/MM3 (134-434); RBC 2.72 M/mm3 (3.60-5.2); RDW 18.5 % (11.6-15.6); WHITE BLOOD COUNT 3.5 K/mm3 (4.0-10.0)
[2020-07-18 07:13] LABS: ALBUMIN 1.5 g/dl (3.4-5.0); BILIRUBIN,TOTAL 0.8 mg/dL (0.2-1); BLOOD UREA NITROGEN 12.9 mg/dL (7-18); CHLORIDE 104 mmol/L (98-107); CO2 26 mmol/L (21-32); CREATININE < 0.2 mg/dL (0.55-1.3); GLUCOSE,RANDOM 103 mg/dL (74-106); MAGNESIUM 1.6 mg/dL (1.8-2.4); SGOT/AST 22 U/L (15-37); SGPT/ALT 38 U/L (13-61); SODIUM 136 mmol/L (136-145)
[2020-07-18 07:45] LABS: ALK PHOS 181 U/L (45-117); ANION GAP 6 MMOL/L (8-16)
[2020-07-18] MEDS ORDERED: MAGNESIUM SULF 50% (8.12 MEQ/2 ML-1 GM VIAL) IVPB ONE ×2 (08:00→08:09)
[2020-07-18 08:12] LABS: CALCIUM 6.6 mg/dL (8.5-10.1); POTASSIUM 2.8 mmol/L (3.5-5.1)
[2020-07-18] MEDS ORDERED: MAGNESIUM SULFATE IN WATER 2 GM/50 ML IVPB IVPB ONE (08:15)
[2020-07-18] MEDS ORDERED: MAGNESIUM 1GM/D5W - 1 GM/100 ML IVPB IVPB ONE (08:15)
[2020-07-18] MEDS ORDERED: SODIUM PHOSPHATE - 20 MM in SODIUM CHLORIDE 250 ML IVPB ONE (09:00)
[2020-07-18] MEDS ORDERED: POTASSIUM PHOSPHATE 30 MM in SODIUM CHLORIDE 250 ML IVPB ONE (09:00)
[2020-07-18] MEDS ORDERED: PT OWN MED DRAWER 7, Y5N ONE (09:33)
[2020-07-18] MEDS: POTASSIUM CHLORIDE ORAL LIQUID 20 MEQ/15 ML PO SCH (09:37)
[2020-07-18] MEDS: ALBUMIN HUMAN 25% 100 ML VIAL IVPB SCH ×2 (09:38→10:07)
[2020-07-18] MEDS: MIDAZOLAM IN 0.9 % SOD.CHLORID 100 MG/100 ML PLAST..BAG IVPB SCH (09:40)
[2020-07-18] MEDS: FOLIC ACID 1 MG TABLET (FP) NGT SCH (09:42)
[2020-07-18] MEDS: THIAMINE HCL 200 MG/2 ML VIAL IVPB SCH (09:42)
[2020-07-18] MEDS: MULTIVIT-MINERALS ORAL LIQUID NGT SCH (09:42)
[2020-07-18] MEDS: DEXMEDETOMIDINE IN 0.9 % NACL 400 MCG/100 ML VIAL IVPB SCH ×2 (10:00→15:30)
[2020-07-18] MEDS ORDERED: ZINC OXIDE 20% TOPICAL OINTMENT 30 GM TUBE TP ONE (11:47)
--- NOTE | 2020-07-18 11:49 | PN ---
Teaching Attending Note Name of Resident: Yadira Hamilton ATTENDING PHYSICIAN STATEMENT I saw and evaluated the patient. I reviewed the resident's note and discussed the case with the resident. I agree with the resident's findings and plan as documented. SUBJECTIVE: Pt seen and examined in the ICU. Remains intubated, awake off sedation on vasopressin gtt. Placed on CPAP/PS with good respiratory effort and RSBI so susbsequently extubated to HFOT 50% Fio2. OBJECTIVE: Vital Signs Period Temp Pulse Resp BP Sys/Campbell Pulse Ox Last 24 Hr 97.8 F-98.6 F 59-112 15-39 76-112/57-81 87-100 Intake & Output 07/15/20 07/16/20 07/17/20 07/18/20 23:59 23:59 23:59 23:59 Intake Total 2420 2313 2371.6 1021 Output Total 300 1000 2750 300 Balance 2120 1313 -378.4 721 Weight 31.099 kg 31.933 kg 32.114 kg Gen: extubated, cachectic Heart: RRR Lung: scattered rhonchi Abd: soft, nontender, +ascites Ext: no edema CBC, BMP 07/18/20 06:00 07/18/20 06:00 Active Medications Amino Acids (Prosource No Carb Liquid Pkt) 30 ml PO DAILY [facility] Banana Based Medical Food (Banatrol Plus Powder Packet) 1 packet GT TID [facility] Last Admin: 07/18/20 05:40 Dose: 1 packet Documented by: Dextrose (D50w (Vial) -) 12.5 gm IVPUSH PRN PRN PRN Reason: HYPOGLYCEMIA Last Admin: 07/08/20 07:38 Dose: 12.5 gm Documented by: Folic Acid (Folic Acid -) 1 mg NGT DAILY [facility] Last Admin: 07/18/20 09:42 Dose: 1 mg Documented by: Heparin Sodium (Porcine) (Heparin -) 5,000 unit SQ TID [facility] Last Admin: 07/18/20 05:40 Dose: 5,000 unit Documented by: Piperacillin Sod/Tazobactam (Sod 3.375 gm/ Dextrose) 50 mls @ 100 mls/hr IVPB Q8H-IV [facility]; Protocol Last Admin: 07/18/20 09:42 Dose: 100 mls/hr Documented by: Vasopressin 40 units/ Sodium (Chloride) 100 mls @ 5 mls/hr IVPB ASDIR ARUL; Protocol Last Admin: 07/18/20 10:08 Dose: Not Given Documented by: Dextrose/Lactated Ringer's (D5-Lr+20 Meq Kcl -) 20 meq in 1,000 mls @ 30 mls/hr IV ASDIR RAUL Last Admin: 07/18/20 02:53 Dose: Not Given Documented by: Midazolam HCl (Midazolam 100mg/100ml-0.9%Nacl) 100 mg in 100 mls @ 1 mls/hr IVPB TITR [facility]; Protocol Last Admin: 07/18/20 09:40 Dose: Not Given Documented by: Dexmedetomidine/Sodium Chloride (Precedex 400 Mcg/100 Ml Inject) 400 mcg in 100 mls @ 1.555 mls/hr IVPB TITR [facility] Last Infusion: 07/18/20 10:10 Dose: 0.3 mcg/kg/hr, 2.332 mls/hr Documented by: Potassium Phosphate 30 mm/ (Sodium Chloride) 260 mls @ 65 mls/hr IVPB ONCE ONE Stop: 07/18/20 12:59 Last Admin: 07/18/20 10:08 Dose: 65 mls/hr Documented by: Morphine Sulfate (Morphine Sulfate) 1 mg IVPUSH Q6H PRN PRN Reason: PAIN LEVEL 6-10 Multivitamins/Minerals (Certavite-Antioxidant Liquid) 15 ml NGT DAILY [facility] Last Admin: 07/18/20 09:42 Dose: 15 ml Documented by: Potassium Chloride (Potassium Chloride Oral Liquid) 40 meq PO DAILY [facility] Last Admin: 07/18/20 09:37 Dose: 40 meq Documented by: Potassium Phos/Sodium Phos (Phos-Nak Packet -) 1 packet PO TID [facility] Last Admin: 07/18/20 05:40 Dose: 1 packet Documented by: Thiamine HCl (Vitamin B1 Injection -) 100 mg IVPB DAILY [facility] Last Admin: 07/18/20 09:42 Dose: 100 mg Documented by: ASSESSMENT AND PLAN: Acute Hypoxic Respiratory Failure Pneumonia likely Aspiration UTI Sepsis Hyponatremia Small Bowel Obstruction Alcohol/Heroin Abuse Anemia Failure to Thrive Severe Protein Calorie Malnutrition Refeeding Syndrome - pt extubated - monitor urine output, creatinine - replete lytes - continue antibiotics - titrate pressors to maintain MAP >65 - titrate HFOT to keep SpO2 >90% - titrate enteral feeds to goal - DVT/GI prophylaxis - continue ICU monitoring critical care time spent in reviewing chart, evaluating patient and formulating plan 35 min
[2020-07-18 12:07] LABS: ANISOCYTOSIS 1+; MACROCYTOSIS 0; PLATELET ESTIMATE DECREASED
--- NOTE | 2020-07-18 12:29 | PN ---
Progress Note, Physician History of Present Illness: Pt seen and examined at bedside. She is awake and on a weaning trial. - Current Medication List Current Medications: Active Medications Amino Acids (Prosource No Carb Liquid Pkt) 30 ml PO DAILY [facility] Banana Based Medical Food (Banatrol Plus Powder Packet) 1 packet GT TID [facility] Last Admin: 07/18/20 05:40 Dose: 1 packet Documented by: Dextrose (D50w (Vial) -) 12.5 gm IVPUSH PRN PRN PRN Reason: HYPOGLYCEMIA Last Admin: 07/08/20 07:38 Dose: 12.5 gm Documented by: Folic Acid (Folic Acid -) 1 mg NGT DAILY [facility] Last Admin: 07/18/20 09:42 Dose: 1 mg Documented by: Heparin Sodium (Porcine) (Heparin -) 5,000 unit SQ TID [facility] Last Admin: 07/18/20 05:40 Dose: 5,000 unit Documented by: Piperacillin Sod/Tazobactam (Sod 3.375 gm/ Dextrose) 50 mls @ 100 mls/hr IVPB Q8H-IV [facility]; Protocol Last Admin: 07/18/20 09:42 Dose: 100 mls/hr Documented by: Vasopressin 40 units/ Sodium (Chloride) 100 mls @ 5 mls/hr IVPB ASDIR RAUL; Protocol Last Admin: 07/18/20 10:08 Dose: Not Given Documented by: Dextrose/Lactated Ringer's (D5-Lr+20 Meq Kcl -) 20 meq in 1,000 mls @ 30 mls/hr IV ASDIR RAUL Last Admin: 07/18/20 02:53 Dose: Not Given Documented by: Midazolam HCl (Midazolam 100mg/100ml-0.9%Nacl) 100 mg in 100 mls @ 1 mls/hr IVPB TITR [facility]; Protocol Last Admin: 07/18/20 09:40 Dose: Not Given Documented by: Dexmedetomidine/Sodium Chloride (Precedex 400 Mcg/100 Ml Inject) 400 mcg in 100 mls @ 1.555 mls/hr IVPB TITR [facility] Last Infusion: 07/18/20 10:10 Dose: 0.3 mcg/kg/hr, 2.332 mls/hr Documented by: Potassium Phosphate 30 mm/ (Sodium Chloride) 260 mls @ 65 mls/hr IVPB ONCE ONE Stop: 07/18/20 12:59 Last Admin: 07/18/20 10:08 Dose: 65 mls/hr Documented by: Morphine Sulfate (Morphine Sulfate) 1 mg IVPUSH Q6H PRN PRN Reason: PAIN LEVEL 6-10 Multivitamins/Minerals (Certavite-Antioxidant Liquid) 15 ml NGT DAILY [facility] Last Admin: 07/18/20 09:42 Dose: 15 ml Documented by: Potassium Chloride (Potassium Chloride Oral Liquid) 40 meq PO DAILY [facility] Last Admin: 07/18/20 09:37 Dose: 40 meq Documented by: Potassium Phos/Sodium Phos (Phos-Nak Packet -) 1 packet PO TID [facility] Last Admin: 07/18/20 05:40 Dose: 1 packet Documented by: Thiamine HCl (Vitamin B1 Injection -) 100 mg IVPB DAILY [facility] Last Admin: 07/18/20 09:42 Dose: 100 mg Documented by: - Objective Vital Signs: Vital Signs Temperature 98.3 F 07/18/20 06:00 Pulse Rate 74 07/18/20 10:00 Respiratory Rate 19 07/18/20 10:00 Blood Pressure 79/65 L 07/18/20 10:00 O2 Sat by Pulse Oximetry (%) 92 L 07/18/20 10:50 Constitutional: Yes: Calm, Cachectic Eyes: Yes: Conjunctiva Clear HENT: Yes: Atraumatic Neck: Yes: Supple Cardiovascular: Yes: S1, S2 Respiratory: Yes: Mechanically Ventilated Gastrointestinal: Yes: Soft Genitourinary: Yes: Uribe Present Musculoskeletal: Yes: Muscle Weakness Neurological: Yes: Other (awake) Labs: CBC, BMP 07/18/20 06:00 07/18/20 06:00 INR, PTT INR 2.08 (0.83-1.09) H 07/06/20 08:05 Problem List - Problems (1) Hypoglycemia Code(s): E16.2 - HYPOGLYCEMIA, UNSPECIFIED (2) Sepsis Code(s): A41.9 - SEPSIS, UNSPECIFIED ORGANISM Qualifiers: Sepsis type: sepsis due to unspecified organism Sepsis acute organ dysfunction status: unspecified Qualified Code(s): A41.9 - Sepsis, unspecified organism (3) Hypoalbuminemia Code(s): E88.09 - OTH DISORDERS OF PLASMA-PROTEIN METABOLISM, NEC (4) Hyponatremia Code(s): E87.1 - HYPO-OSMOLALITY AND HYPONATREMIA Assessment/Plan Current Medications Generic Name Dose Route Start Last Admin Trade Name Freq PRN Reason Stop Dose Admin Amino Acids 30 ml 07/19/20 10:00 Prosource No Carb Liquid Pkt PO DAILY [facility] Banana Based Medical Food 1 packet 07/10/20 22:00 07/18/20 05:40 Banatrol Plus Powder Packet GT 1 packet TID [facility] Administration Dextrose 12.5 gm 07/08/20 07:08 07/08/20 07:38 D50w (Vial) - IVPUSH 12.5 gm PRN PRN Administration HYPOGLYCEMIA Folic Acid 1 mg 07/06/20 10:00 07/18/20 09:42 Folic Acid - NGT 1 mg DAILY [facility] Administration Heparin Sodium (Porcine) 5,000 unit 07/10/20 22:00 07/18/20 05:40 Heparin - SQ 5,000 unit TID [facility] Administration Piperacillin Sod/Tazobactam 50 mls @ 100 mls/hr 07/02/20 18:00 07/18/20 09:42 Sod 3.375 gm/ Dextrose IVPB 100 mls/hr Q8H-IV [facility] Administration Protocol Vasopressin 40 units/ Sodium 100 mls @ 5 mls/hr 07/08/20 07:00 07/18/20 10:08 Chloride IVPB Not Given ASDIR RAUL Protocol 2 UNITS/HR Dextrose/Lactated Ringer's 20 meq in 1,000 mls @ 30 mls/hr 07/12/20 23:30 07/18/20 02:53 D5-Lr+20 Meq Kcl - IV Not Given ASDIR RAUL Midazolam HCl 100 mg in 100 mls @ 1 mls/hr 07/15/20 08:15 07/18/20 09:40 Midazolam 100mg/100ml-0.9%Nacl IVPB Not Given TITR [facility] Protocol 1 MG/HR Dexmedetomidine/Sodium Chloride 400 mcg in 100 mls @ 1.555 mls/hr 07/16/20 15:30 07/18/20 10:10 Precedex 400 Mcg/100 Ml Inject IVPB 0.3 mcg/kg/hr TITR [facility] 2.332 mls/hr Infusion 0.2 MCG/KG/HR Potassium Phosphate 30 mm/ 260 mls @ 65 mls/hr 07/18/20 09:00 07/18/20 10:08 Sodium Chloride IVPB 07/18/20 12:59 65 mls/hr ONCE ONE Administration 30 MM/4 HR Morphine Sulfate 1 mg 07/14/20 08:24 Morphine Sulfate IVPUSH Q6H PRN PAIN LEVEL 6-10 Multivitamins/Minerals 15 ml 07/06/20 11:45 07/18/20 09:42 Certavite-Antioxidant Liquid NGT 15 ml DAILY [facility] Administration Potassium Chloride 40 meq 07/17/20 12:30 07/18/20 09:37 Potassium Chloride Oral Liquid PO 40 meq DAILY [facility] Administration Potassium Phos/Sodium Phos 1 packet 07/09/20 14:00 07/18/20 05:40 Phos-Nak Packet - PO 1 packet TID [facility] Administration Thiamine HCl 100 mg 07/11/20 12:45 07/18/20 09:42 Vitamin B1 Injection - IVPB 100 mg DAILY [facility] Administration Impression 1. azotemia 2. hyponatremia 3. hyperkalemia 4. hypotension 5. sepsis 6. sbo 7. uti 8. liver cirrhosis 9. hypoalbuminemia 10. etoh abuse 11. substance abuse 12. psoriasis 13. acute resp failure 14. malnutrition Plan - cont feeds - repeat lytes - vent support - weaning per pulm - if extubated cont ng tube for feeding - discussed with ICU - monitor bp, maintain map 65
--- NOTE | 2020-07-18 12:40 | CONSULT ---
Admitting History and Physical - Admission History of Present Illness: 34 y/o F with PMH of cirrhosis, polysubstance abuse alcohol abuse, protein malnutriotn, ascitis was admitted with Urosepsis, Pneumonia complicated by Respiratory failure and hypotension. Patient Liver enzymes was noted to be 30 times normal. Selected Entries 07/18/20 07/18/20 07/18/20 00:00 00:07 01:00 Breakfast Skin Risk Level Total Score - Skin Risk Assessment Temperature Pulse Rate 60 69 Respiratory 17 16 20 Rate Respiratory Depth Respiratory Effort Blood Pressure 103/65 112/76 O2 Sat by Pulse 95 98 98 Oximetry (%) Oxygen Delivery Method Fraction of 40 Inspired Oxygen (FIO2) 07/18/20 07/18/20 07/18/20 02:00 03:00 04:00 Breakfast Skin Risk Level Total Score - Skin Risk Assessment Temperature 97.9 F Pulse Rate 78 79 72 Respiratory 16 16 16 Rate Respiratory Depth Respiratory Effort Blood Pressure 94/67 102/71 96/68 O2 Sat by Pulse 95 100 93 L Oximetry (%) Oxygen Delivery Method Fraction of Inspired Oxygen (FIO2) 07/18/20 07/18/20 07/18/20 04:20 05:00 06:00 Breakfast Skin Risk Level Total Score - Skin Risk Assessment Temperature 98.3 F Pulse Rate 81 78 87 Respiratory 18 18 18 Rate Respiratory Depth Respiratory Effort Blood Pressure 105/75 97/72 O2 Sat by Pulse 100 100 100 Oximetry (%) Oxygen Delivery Mechanical Method Ventilator Fraction of 40 Inspired Oxygen (FIO2) 07/18/20 07/18/20 07/18/20 06:13 07:00 08:00 Breakfast Skin Risk Level Total Score - Skin Risk Assessment Temperature Pulse Rate 89 59 L 68 Respiratory 16 18 Rate Respiratory Depth Respiratory Effort Blood Pressure 97/72 92/66 93/64 O2 Sat by Pulse 100 Oximetry (%) Oxygen Delivery Method Fraction of 40 40 Inspired Oxygen (FIO2) 07/18/20 07/18/20 07/18/20 08:35 08:38 09:00 Breakfast Skin Risk Level Total Score - Skin Risk Assessment Temperature Pulse Rate 81 74 Respiratory 22 H 16 Rate Respiratory Shallow Depth Respiratory Mechanically Effort Ventilated Blood Pressure 82/61 L O2 Sat by Pulse 100 100 100 Oximetry (%) Oxygen Delivery Mechanical Mechanical Method Ventilator Ventilator Fraction of 40 40 Inspired Oxygen (FIO2) 07/18/20 07/18/20 07/18/20 09:19 10:00 10:50 Breakfast NPO Skin Risk Level Very High Risk Total Score - 7 Skin Risk Assessment Temperature Pulse Rate 74 Respiratory 19 Rate Respiratory Depth Respiratory Effort Blood Pressure 79/65 L O2 Sat by Pulse 100 92 L Oximetry (%) Oxygen Delivery Method Fraction of 50 Inspired Oxygen (FIO2) Laboratory Tests 07/01/20 07/15/20 07/16/20 15:14 05:30 05:30 WBC 12.4 H 7.7 COVID-19 (ALYSIA) Not detected 07/17/20 07/18/20 05:50 06:00 WBC 6.2 3.5 L COVID-19 (ALYSIA) Intubated 07/04-Extubated today. Acute Hypoxic Respiratory Failure Pneumonia likely Aspiration UTI Sepsis Hyponatremia Small Bowel Obstruction Alcohol/Heroin Abuse Anemia Failure to Thrive Severe Protein Calorie Malnutrition Refeeding Syndrome History Source: Medical Record Limitations to Obtaining History: Clinical Condition - Past Medical History [employer]: Yes: Other (mild encephalopathy) Gastrointestinal: Yes: Other (GERD) Hepatobiliary: Yes: Cirrhosis, Other (Elevated LFT's) ...LMP: 02/01/20 ...: No Psych: Yes: Addictions - Smoking History Smoking history: Current every day smoker Have you smoked in the past 12 months: Yes Aproximately how many cigarettes per day: 3 - Alcohol/Substance Use Hx Alcohol Use: No History - Admission Reason For Visit: ABDOMINAL PAIN,HYPONATREMIA,ALCOLHOLIC CIRRHOSIS, - Diagnostics X-ray: Report Reviewed - General Mental Status: Awake and Alert, Able to Follow Commands, Flat Affect Attention: Intact Ability to Follow Directions: Fair Head/Neck Control: Needs Assist - Hearing Hearing: Functional Speech Evaluation - Communication Primary Language: BRITISH Oral Expression Ability: Yes: Non-Vocal (Extubated today. Very weak.) - Speech Characteristics Voice Loudness: Hypophonia Voice Phonatory-based Quality: Yes: Loss of Voice (aphonia) - Swallow Evaluation/Bedside Assessment Current Nutritional Intake: NPO, NG Tube Recommendations - Speech Evaluation, Impression/Plan Impression: Pt extubated today. Aphonic. Profoundly undernourished/weak. Diarrhea/ TF. Although pt may be able to swallow as she gets stronger, I doubt she will accept/tolerate enough nutrition by mouth to thrive/recover. Prognosis? Pt's end of life wishes? Consider PEG insertion? Possibly PO in future, once stronger - Disposition Discharge to: To be Determined - Dysphagia Impressions/Plan Swallowing Skills: Impaired (extubated today. To reassess as pt becomes stronger) - Recommendations Diet Consistency: NPO, Other (ngt) Liquids: NPO
--- NOTE | 2020-07-18 12:49 | PN ---
Physical Exam: SUBJECTIVE: Patient seen and examined this morning. Has been off versed since yesterday afternoon. In no distress. Placed on Cpap, plan to extubate today OBJECTIVE: Vital Signs Temp Pulse Resp BP Pulse Ox 98.3 F 74 19 79/65 L 92 L 07/18/20 06:00 07/18/20 10:00 07/18/20 10:00 07/18/20 10:00 07/18/20 10:50 GENERAL: Alert, extubated, on high flow EYES: PERRLA, EOMI, sclera anicteric ENT: NG tube in place NECK: supple LUNGS: Breath sounds CTA BL, on high flow O2 HEART: RRR normal S1 and S2, ABDOMEN: soft, extremely emaciated EXTREMITIES : cachectic and weeping with bilateral pitting edema in upper and lower ext NEUROLOGICAL: Pt able to comply to commands SKIN: thin, fragile. Skin around rectum is raw and slightly bloody. Stage 2 sacral ulcer dressed. Laboratory Results - last 24 hr 07/17/20 07/17/20 07/18/20 12:56 19:32 02:27 WBC RBC Hgb Hct MCV MCH MCHC RDW Plt Count MPV Neutrophils % (Manual) Band Neutrophils % Lymphocytes % (Manual) Monocytes % (Manual) Eosinophils % (Manual) Basophils % (Manual) Myelocytes % (Man) Promyelocytes % (Man) Blast Cells % (Manual) Nucleated RBC % Metamyelocytes Hypochromia Platelet Estimate Polychromasia Anisocytosis Macrocytosis Ruso Cells Fragmented RBCs Sodium Potassium Chloride Carbon Dioxide Anion Gap BUN Creatinine Est GFR (CKD-EPI)AfAm Est GFR (CKD-EPI)NonAf POC Glucometer 73 81 93 Random Glucose Calcium Phosphorus Magnesium Total Bilirubin AST ALT Alkaline Phosphatase Total Protein Albumin 07/18/20 07/18/20 07/18/20 06:00 06:00 06:22 WBC 3.5 L RBC 2.72 L Hgb 7.8 L Hct 22.3 L D MCV 82.1 MCH 28.8 MCHC 35.1 RDW 18.5 H Plt Count 60 L D MPV 7.6 Neutrophils % (Manual) 82.7 Band Neutrophils % 2.7 Lymphocytes % (Manual) 10.9 D Monocytes % (Manual) 4 Eosinophils % (Manual) 0.0 Basophils % (Manual) 0.0 Myelocytes % (Man) 0 Promyelocytes % (Man) 0 Blast Cells % (Manual) 0 Nucleated RBC % 0 Metamyelocytes 0 Hypochromia 0 Platelet Estimate Decreased Polychromasia 1+ Anisocytosis 1+ Macrocytosis 0 Ho Cells 1+ Fragmented RBCs 1+ Sodium 136 Potassium 2.8 L* Chloride 104 Carbon Dioxide 26 Anion Gap 6 L BUN 12.9 Creatinine < 0.2 L Est GFR (CKD-EPI)AfAm 196.46 Est GFR (CKD-EPI)NonAf 169.51 POC Glucometer 84 Random Glucose 103 Calcium 6.6 L* Phosphorus 2.0 L Magnesium 1.6 L Total Bilirubin 0.8 AST 22 ALT 38 Alkaline Phosphatase 181 H Total Protein 4.0 L Albumin 1.5 L Active Medications Generic Name Dose Route Start Last Admin Trade Name Freq PRN Reason Stop Dose Admin Amino Acids 30 ml 07/19/20 10:00 Prosource No Carb Liquid Pkt PO DAILY [facility] Banana Based Medical Food 1 packet 07/10/20 22:00 07/18/20 05:40 Banatrol Plus Powder Packet GT 1 packet TID [facility] Administration Dextrose 12.5 gm 07/08/20 07:08 07/08/20 07:38 D50w (Vial) - IVPUSH 12.5 gm PRN PRN Administration HYPOGLYCEMIA Folic Acid 1 mg 07/06/20 10:00 07/18/20 09:42 Folic Acid - NGT 1 mg DAILY [facility] Administration Heparin Sodium (Porcine) 5,000 unit 07/10/20 22:00 07/18/20 05:40 Heparin - SQ 5,000 unit TID [facility] Administration Vasopressin 40 units/ Sodium 100 mls @ 5 mls/hr 07/08/20 07:00 07/18/20 10:08 Chloride IVPB Not Given ASDIR RAUL Protocol 2 UNITS/HR Dextrose/Lactated Ringer's 20 meq in 1,000 mls @ 30 mls/hr 07/12/20 23:30 07/18/20 02:53 D5-Lr+20 Meq Kcl - IV Not Given ASDIR RAUL Midazolam HCl 100 mg in 100 mls @ 1 mls/hr 07/15/20 08:15 07/18/20 09:40 Midazolam 100mg/100ml-0.9%Nacl IVPB Not Given TITR [facility] Protocol 1 MG/HR Dexmedetomidine/Sodium Chloride 400 mcg in 100 mls @ 1.555 mls/hr 07/16/20 15:30 07/18/20 10:10 Precedex 400 Mcg/100 Ml Inject IVPB 0.3 mcg/kg/hr TITR [facility] 2.332 mls/hr Infusion 0.2 MCG/KG/HR Potassium Phosphate 30 mm/ 260 mls @ 65 mls/hr 07/18/20 09:00 07/18/20 10:08 Sodium Chloride IVPB 07/18/20 12:59 65 mls/hr ONCE ONE Administration 30 MM/4 HR Morphine Sulfate 1 mg 07/14/20 08:24 Morphine Sulfate IVPUSH Q6H PRN PAIN LEVEL 6-10 Multivitamins/Minerals 15 ml 07/06/20 11:45 07/18/20 09:42 Certavite-Antioxidant Liquid NGT 15 ml DAILY [facility] Administration Potassium Chloride 40 meq 07/17/20 12:30 07/18/20 09:37 Potassium Chloride Oral Liquid PO 40 meq DAILY [facility] Administration Potassium Phos/Sodium Phos 1 packet 07/09/20 14:00 07/18/20 05:40 Phos-Nak Packet - PO 1 packet TID [facility] Administration Thiamine HCl 100 mg 07/11/20 12:45 07/18/20 09:42 Vitamin B1 Injection - IVPB 100 mg DAILY [facility] Administration ASSESSMENT/PLAN: This is a 34 year old female with PMH of cachexia, polysubstance abuse (ETOH, heroin), cirrhosis, HTN, psoriasis, and asthma. She presented to the ER after an episode of hypoglycemia at home, and was BIBEMS with hypoglycemia, hypotension, hypoxia, hypothermia. Admitted to ICU due to possible sepsis due to UTI and PNA, Refeeding syndrome, and SBO. Neuro - lethargic, arousable, & weak. Off sedation - communicates with head nodes, yes/no questions. Still too weak to talk - on precedex >> stopped for extubation Cardiac - Hx of HTN >> hold bp meds - Vasso only if MAP < 65 - continue to wean off pressors, currently vasso @ 1 Resp - pt has history of asthma/ albuterol PRN - intubated 07/04 - extubated 07/18 - patient on highflow o2 GI - pt still having diarrhea, flexi seal placed yesterday - Transaminitis resolved Heme - Hbg dropped again this morning, possibly diluted from central line draw repeat cbc at 2pm ID - Sepsis secondary UTI vs Right sided PNA >> resolved - ID consult appreciated (Dr. Martines) Zosyn day 17: stopped today Renal - net - 378.4 cc (total 3.5 L urine output) - albumin given today - continue to monitor urine output Endocrine - continue to monitor sugars - TSH elevated, fT4 low, reevaluate once patient is more stable FEN - monitor electrolytes including phosphate and magnesium possible refeeding syndrome - keep K> 4, Mg> 2, PO4 > 3.5. - repleated electrolytes today repeat bmp @ 2 pm - feeds increased to 45cc today (Vital) - started prosource daily - tomorrow start perative feeds 45cc/hr Lines - central line in [facility] 07/17 PPx - DVT- heparin 5000 units per TID - Protonixs held due to hypomagnesmia - SCDs Dispo: ethics consulted Visit type - Emergency Visit Emergency Visit: Yes ED Registration Date: 07/01/20 Care time: The patient presented to the Emergency Department on the above date and was hospitalized for further evaluation of their emergent condition. - New Patient This patient is new to me today: No - Critical Care Critical Care patient: Yes Total Critical Care Time (in minutes): 38 Critical Care Statement: The care of this patient involved high complexity decision making to prevent further life threatening deterioration of the patient's condition and/or to evaluate & treat vital organ system(s) failure or risk of failure. - Discharge Referral Referred to [facility] Med [facility] No ATTENDING PHYSICIAN STATEMENT I saw and evaluated the patient. I reviewed the resident's note and discussed the case with the resident. I agree with the resident's findings and plan as documented. SUBJECTIVE: OBJECTIVE: ASSESSMENT AND PLAN:
--- NOTE | 2020-07-18 16:00 | PN ---
Progress Note, Physician History of Present Illness: extubated awake - Current Medication List Current Medications: Active Medications Amino Acids (Prosource No Carb Liquid Pkt) 30 ml PO DAILY [facility] Banana Based Medical Food (Banatrol Plus Powder Packet) 1 packet GT TID RAUL Last Admin: 07/18/20 05:40 Dose: 1 packet Documented by: Dextrose (D50w (Vial) -) 12.5 gm IVPUSH PRN PRN PRN Reason: HYPOGLYCEMIA Last Admin: 07/08/20 07:38 Dose: 12.5 gm Documented by: Folic Acid (Folic Acid -) 1 mg NGT DAILY [facility] Last Admin: 07/18/20 09:42 Dose: 1 mg Documented by: Heparin Sodium (Porcine) (Heparin -) 5,000 unit SQ TID RAUL Last Admin: 07/18/20 05:40 Dose: 5,000 unit Documented by: Vasopressin 40 units/ Sodium (Chloride) 100 mls @ 5 mls/hr IVPB ASDIR RAUL; Protocol Last Admin: 07/18/20 10:08 Dose: Not Given Documented by: Dextrose/Lactated Ringer's (D5-Lr+20 Meq Kcl -) 20 meq in 1,000 mls @ 30 mls/hr IV ASDIR RAUL Last Admin: 07/18/20 02:53 Dose: Not Given Documented by: Midazolam HCl (Midazolam 100mg/100ml-0.9%Nacl) 100 mg in 100 mls @ 1 mls/hr IVPB TITR [facility]UL; Protocol Last Admin: 07/18/20 09:40 Dose: Not Given Documented by: Dexmedetomidine/Sodium Chloride (Precedex 400 Mcg/100 Ml Inject) 400 mcg in 100 mls @ 1.555 mls/hr IVPB TITR RAUL Last Infusion: 07/18/20 10:10 Dose: 0.3 mcg/kg/hr, 2.332 mls/hr Documented by: Morphine Sulfate (Morphine Sulfate) 1 mg IVPUSH Q6H PRN PRN Reason: PAIN LEVEL 6-10 Multivitamins/Minerals (Certavite-Antioxidant Liquid) 15 ml NGT DAILY [facility] Last Admin: 07/18/20 09:42 Dose: 15 ml Documented by: Potassium Chloride (Potassium Chloride Oral Liquid) 40 meq PO DAILY [facility] Last Admin: 07/18/20 09:37 Dose: 40 meq Documented by: Potassium Phos/Sodium Phos (Phos-Nak Packet -) 1 packet PO TID [facility] Last Admin: 07/18/20 05:40 Dose: 1 packet Documented by: Thiamine HCl (Vitamin B1 Injection -) 100 mg IVPB DAILY [facility] Last Admin: 07/18/20 09:42 Dose: 100 mg Documented by: - Objective Vital Signs: Vital Signs Temperature 98.3 F 07/18/20 06:00 Pulse Rate 76 07/18/20 14:00 Respiratory Rate 19 07/18/20 14:00 Blood Pressure 107/77 07/18/20 14:00 O2 Sat by Pulse Oximetry (%) 92 L 07/18/20 10:50 Constitutional: Yes: Calm, Cachectic HENT: Yes: Atraumatic Neck: Yes: Supple Cardiovascular: Yes: Regular Rate and Rhythm Respiratory: Yes: Rhonchi Gastrointestinal: Yes: Normal Bowel Sounds Extremities: Yes: WNL Edema: No Neurological: Yes: Alert Labs: CBC, BMP 07/18/20 06:00 07/18/20 06:00 INR, PTT INR 2.08 (0.83-1.09) H 07/06/20 08:05 Problem List - Problems (1) At risk for electrolyte imbalance Assessment/Plan: MONITOR AND REPLACE Code(s): Z91.89 - OT PERSONAL RISK FACTORS, NOT ELSEWHERE CLASSIFIED (2) SBO (small bowel obstruction) Assessment/Plan: ON TUBE FEEDS NOW Code(s): K56.609 - UNSP INTESTNL OBST, UNSP TO PARTIAL VERSUS COMPLETE OBST (3) Sepsis Assessment/Plan: ON IV ABX CXS NOTED wbc wnl Code(s): A41.9 - SEPSIS, UNSPECIFIED ORGANISM Qualifiers: Sepsis type: sepsis due to unspecified organism Sepsis acute organ dysfunction status: unspecified Qualified Code(s): A41.9 - Sepsis, unspecified organism (4) Alcoholic liver damage Code(s): K70.9 - ALCOHOLIC LIVER DISEASE, UNSPECIFIED (5) Hypoalbuminemia Code(s): E88.09 - OTH DISORDERS OF PLASMA-PROTEIN METABOLISM, NEC (6) Hyponatremia Code(s): E87.1 - HYPO-OSMOLALITY AND HYPONATREMIA (7) Liver cirrhosis, alcoholic Code(s): K70.30 - ALCOHOLIC CIRRHOSIS OF LIVER WITHOUT ASCITES (8) Ischemic hepatitis Code(s): K75.9 - INFLAMMATORY LIVER DISEASE, UNSPECIFIED (9) Respiratory failure Assessment/Plan: extubated now on NC Code(s): J96.90 - RESPIRATORY FAILURE, UNSP, UNSP W HYPOXIA OR HYPERCAPNIA (10) UTI (urinary tract infection) Assessment/Plan: SEPSIS..RESOLVING ON IV ABX Code(s): N39.0 - URINARY TRACT INFECTION, SITE NOT SPECIFIED Qualifiers: Urinary tract infection type: site unspecified Hematuria presence: with hematuria Qualified Code(s): N39.0 - Urinary tract infection, site not specified; R31.9 - Hematuria, unspecified (11) Elevated LFTs Code(s): R79.89 - OTHER SPECIFIED ABNORMAL FINDINGS OF BLOOD CHEMISTRY (12) Hypothermia Code(s): T68.XXXA - HYPOTHERMIA, INITIAL ENCOUNTER Assessment/Plan COVERING FOR DR FOREMAN TODAY ICU CC TIME 35 MIN
[2020-07-18] MEDS ORDERED: AMINO ACIDS/PROTEIN HYDROLYS 30 ML LIQUID.PKT PO SCH (17:30)
[2020-07-18 17:36] LABS: HEMATOCRIT 25.3 % (32.4-45.2); HEMOGLOBIN 8.7 GM/dL (10.7-15.3); MCH 28.7 pg (25.7-33.7); MCHC 34.2 g/dl (32.0-36.0); MEAN CELL VOLUME 83.9 fl (80-96); MEAN PLT VOLUME 7.5 fl (7.5-11.1); PLATELET COUNT 88 K/MM3 (134-434); RBC 3.02 M/mm3 (3.60-5.2); WHITE BLOOD COUNT 4.4 K/mm3 (4.0-10.0)
[2020-07-18 18:01] LABS: BLOOD UREA NITROGEN 12.4 mg/dL (7-18); CREATININE 0.2 mg/dL (0.55-1.3); MAGNESIUM 2.3 mg/dL (1.8-2.4); PHOSPHOROUS 4.6 mg/dL (2.5-4.9); POTASSIUM 4.9 mmol/L (3.5-5.1)
[2020-07-18 18:04] LABS: CALCIUM 6.8 mg/dL (8.5-10.1)
[2020-07-18] MEDS ORDERED: RAPID SEQUENCE INTUBATION KIT NR ONE (18:57)
--- NOTE | 2020-07-18 19:15 | PN ---
Progress Note (short form) - Note Progress Note: Anesthesia on Chopra Stat call to ICU #3 Post extubation respiratory failure DL x 2 Amanda [employer] under supervision Glydescope used Propofol 50mg img versed IV 96/47 sat 100% #7 ett passed +ETCO2 +BS = BL Tube taped at 20cm at the lip care left to ICU team Kin Matta MD
--- NOTE | 2020-07-19 00:33 | PN ---
Progress Note (short form) - Note Progress Note: 35 yo female in ICU for SBO, UTI, aspiration pna recently reintubated. Pt on xray tube was well above thoracic inlet and at 18 at the lip. Pt tube was moved to 20 at the lip. Pt saturating fine with bilateral breath sounds. WIll repeat cxr for the morning. GENERAL: Alert, intubated, sedated EYES: PERRLA, EOMI, sclera anicteric ENT: NG tube in place, ET tube in place NECK: supple LUNGS: Decreased LLL breath sounds. Venti breath sounds BL HEART: RRR normal S1 and S2 ABDOMEN: soft, extremely emaciated EXTREMITIES: cachectic NEUROLOGICAL: Pt able to comply to commands SKIN: thin, fragile. Skin around rectum is raw and slightly bloody. Stage 2 sacral ulcer dressed.
[2020-07-19] MEDS: D5-LR+20 MEQ KCL - 20 MEQ/1,000 ML INFUS.BAG IV SCH (06:00)
[2020-07-19] MEDS: NAPH,MB-DB/K PH,MBDB POWDER PACKET PO SCH ×3 (06:03→22:08)
[2020-07-19] MEDS: BANATROL PLUS POWDER PACKET GT SCH ×3 (06:03→22:08)
[2020-07-19] MEDS: HEPARIN NA (PORCINE) 5,000 UNITS/ML 1ML VIAL SQ SCH ×2 (06:03→13:15)
[2020-07-19] MEDS: VASOPRESSIN 40 UNITS in SODIUM CHLORIDE 98 ML IVPB SCH (07:00)
[2020-07-19] MEDS: MIDAZOLAM IN 0.9 % SOD.CHLORID 100 MG/100 ML PLAST..BAG IVPB SCH ×2 (07:00→08:15)
[2020-07-19 07:28] LABS: HEMATOCRIT 22.8 % (32.4-45.2); HEMOGLOBIN 7.8 GM/dL (10.7-15.3); MCH 28.8 pg (25.7-33.7); MCHC 34.2 g/dl (32.0-36.0); MEAN CELL VOLUME 84.3 fl (80-96); MEAN PLT VOLUME 8.3 fl (7.5-11.1); PLATELET COUNT 83 K/MM3 (134-434); RBC 2.71 M/mm3 (3.60-5.2); WHITE BLOOD COUNT 4.9 K/mm3 (4.0-10.0)
[2020-07-19 08:01] LABS: ALBUMIN 1.8 g/dl (3.4-5.0); BILIRUBIN,TOTAL 0.8 mg/dL (0.2-1); BLOOD UREA NITROGEN 16.7 mg/dL (7-18); CREATININE 0.2 mg/dL (0.55-1.3); MAGNESIUM 1.9 mg/dL (1.8-2.4); PHOSPHOROUS 2.8 mg/dL (2.5-4.9); POTASSIUM 4.2 mmol/L (3.5-5.1); TOT PROT 4.3 g/dl (6.4-8.2)
[2020-07-19 08:36] LABS: CALCIUM 6.8 mg/dL (8.5-10.1)
[2020-07-19 09:08] LABS: HEMATOCRIT 21.9 % (32.4-45.2); HEMOGLOBIN 7.7 GM/dL (10.7-15.3); MCH 29.1 pg (25.7-33.7); MEAN CELL VOLUME 83.1 fl (80-96); MEAN PLT VOLUME 8.3 fl (7.5-11.1); PLATELET COUNT 83 K/MM3 (134-434); RBC 2.64 M/mm3 (3.60-5.2); RDW 17.7 % (11.6-15.6); WHITE BLOOD COUNT 4.3 K/mm3 (4.0-10.0)
[2020-07-19] MEDS ORDERED: PT OWN MED DRAWER 7, Y5N ONE (09:53)
[2020-07-19] MEDS: POTASSIUM CHLORIDE ORAL LIQUID 20 MEQ/15 ML PO SCH (10:03)
[2020-07-19] MEDS: AMINO ACIDS/PROTEIN HYDROLYS 30 ML LIQUID.PKT PO SCH (10:03)
[2020-07-19] MEDS: FOLIC ACID 1 MG TABLET (FP) NGT SCH (10:04)
[2020-07-19] MEDS: MULTIVIT-MINERALS ORAL LIQUID NGT SCH (10:04)
[2020-07-19] MEDS: THIAMINE HCL 200 MG/2 ML VIAL IVPB SCH (10:07)
--- NOTE | 2020-07-19 11:19 | PN ---
Teaching Attending Note Name of Resident: Yadira Hamilton ATTENDING PHYSICIAN STATEMENT I saw and evaluated the patient. I reviewed the resident's note and discussed the case with the resident. I agree with the resident's findings and plan as documented. SUBJECTIVE: Pt seen and examined in the ICU. Overnight events noted, pt reintubated, remains on vasopressin gtt. No fevers recorded. Minimal secretions. OBJECTIVE: Vital Signs Period Temp Pulse Resp BP Sys/Campbell Pulse Ox Last 24 Hr 95.9 F-98.9 F 65-125 14-35 77-119/48-98 82-100 Intake & Output 07/16/20 07/17/20 07/18/20 07/19/20 23:59 23:59 23:59 23:59 Intake Total 2313 2371.6 2005.7 1105 Output Total 1000 2750 600 Balance 1313 -378.4 1405.7 1105 Weight 31.099 kg 31.933 kg 32.114 kg 28.6 kg Gen: intubated, sedated, cachectic Heart: RRR Lung: scattered rhonchi Abd: soft, nontender, +ascites Ext: no edema CBC, BMP 07/19/20 08:20 07/19/20 06:25 Active Medications Amino Acids (Prosource No Carb Liquid Pkt) 30 ml PO DAILY [facility] Last Admin: 07/19/20 10:03 Dose: 30 ml Documented by: Banana Based Medical Food (Banatrol Plus Powder Packet) 1 packet GT TID RAUL Last Admin: 07/19/20 06:03 Dose: 1 packet Documented by: Dextrose (D50w (Vial) -) 12.5 gm IVPUSH PRN PRN PRN Reason: HYPOGLYCEMIA Last Admin: 07/08/20 07:38 Dose: 12.5 gm Documented by: Folic Acid (Folic Acid -) 1 mg NGT DAILY [facility] Last Admin: 07/19/20 10:04 Dose: 1 mg Documented by: Heparin Sodium (Porcine) (Heparin -) 5,000 unit SQ TID RAUL Last Admin: 07/19/20 06:03 Dose: 5,000 unit Documented by: Vasopressin 40 units/ Sodium (Chloride) 100 mls @ 5 mls/hr IVPB ASDIR [facility]; Protocol Last Titration: 07/19/20 10:39 Dose: 1 units/hr, 2.5 mls/hr Documented by: Midazolam HCl (Midazolam 100mg/100ml-0.9%Nacl) 100 mg in 100 mls @ 1 mls/hr IVPB TITR RAUL; Protocol Last Admin: 07/19/20 08:15 Dose: Not Given Documented by: Dexmedetomidine/Sodium Chloride (Precedex 400 Mcg/100 Ml Inject) 400 mcg in 100 mls @ 1.555 mls/hr IVPB TITR [facility] Last Admin: 07/18/20 15:30 Dose: Not Given Documented by: Morphine Sulfate (Morphine Sulfate) 1 mg IVPUSH Q6H PRN PRN Reason: PAIN LEVEL 6-10 Multivitamins/Minerals (Certavite-Antioxidant Liquid) 15 ml NGT DAILY [facility] Last Admin: 07/19/20 10:04 Dose: 15 ml Documented by: Potassium Chloride (Potassium Chloride Oral Liquid) 40 meq PO DAILY [facility] Last Admin: 07/19/20 10:03 Dose: 40 meq Documented by: Potassium Phos/Sodium Phos (Phos-Nak Packet -) 1 packet PO TID [facility] Last Admin: 07/19/20 06:03 Dose: 1 packet Documented by: Thiamine HCl (Vitamin B1 Injection -) 100 mg IVPB DAILY [facility] Last Admin: 07/19/20 10:07 Dose: 100 mg Documented by: ASSESSMENT AND PLAN: Acute Hypoxic Respiratory Failure Pneumonia likely Aspiration UTI Sepsis Hyponatremia Small Bowel Obstruction Alcohol/Heroin Abuse Anemia/Thrombocytopenia Failure to Thrive Severe Protein Calorie Malnutrition Refeeding Syndrome - monitor urine output, creatinine - replete lytes - continue antibiotics - titrate pressors to maintain MAP >65 - titrate FiO2 to keep SpO2 >90% - spontaneous breathing trials as tolerated - titrate enteral feeds to goal - DVT/GI prophylaxis - continue ICU monitoring - may need tracheostomy due to severe malnutrition and deconditioning critical care time spent in reviewing chart, evaluating patient and formulating plan 35 min
--- NOTE | 2020-07-19 11:20 | PN ---
Physical Exam: SUBJECTIVE: Patient seen and examined bedside. Reintubated yesterday. Tube this morning at 18, pushed down to 22. OBJECTIVE: Vital Signs Temp Pulse Resp BP Pulse Ox 98.9 F 89 15 80/51 L 96 07/19/20 10:00 07/19/20 10:39 07/19/20 10:00 07/19/20 10:39 07/19/20 10:00 GENERAL: Alert, intubated, sedated on versed 10 EYES: PERRLA, EOMI, sclera anicteric ENT: NG tube in place, ET tube in place NECK: supple LUNGS: Decreased LLL breath sounds. Venti breath sounds BL HEART: RRR normal S1 and S2 ABDOMEN: soft, extremely emaciated EXTREMITIES: cachectic NEUROLOGICAL: Pt able to comply to commands SKIN: thin, fragile. Skin around rectum is raw and slightly bloody. Stage 2 sacral ulcer dressed. Intake & Output 07/16/20 07/17/20 07/18/20 07/19/20 23:59 23:59 23:59 23:59 Intake Total 2313 2371.6 2005.7 1105 Output Total 1000 2750 600 Balance 1313 -378.4 1405.7 1105 Weight 68 lb 9 oz 70 lb 6.4 oz 70 lb 12.8 oz 63 lb 0.835 oz Laboratory Results - last 24 hr 07/18/20 07/18/20 07/18/20 06:00 14:00 16:30 WBC 4.4 RBC 3.02 L Hgb 8.7 L Hct 25.3 L MCV 83.9 MCH 28.7 MCHC 34.2 RDW 18.0 H Plt Count 88 L D MPV 7.5 Neutrophils % (Manual) 82.7 Band Neutrophils % 2.7 Lymphocytes % (Manual) 10.9 D Monocytes % (Manual) 4 Eosinophils % (Manual) 0.0 Basophils % (Manual) 0.0 Myelocytes % (Man) 0 Promyelocytes % (Man) 0 Blast Cells % (Manual) 0 Nucleated RBC % 0 Metamyelocytes 0 Hypochromia 0 Platelet Estimate Decreased Polychromasia 1+ Anisocytosis 1+ Macrocytosis 0 Ho Cells 1+ Fragmented RBCs 1+ Sodium 139 Potassium 4.9 Chloride 108 H Carbon Dioxide 25 Anion Gap 6 L BUN 12.4 Creatinine 0.2 L Est GFR (CKD-EPI)AfAm 196.46 Est GFR (CKD-EPI)NonAf 169.51 Random Glucose 79 Calcium 6.8 L* Phosphorus 4.6 Magnesium 2.3 Total Bilirubin AST ALT Alkaline Phosphatase Total Protein Albumin 07/19/20 07/19/20 07/19/20 06:25 06:25 08:20 WBC 4.9 4.3 RBC 2.71 L 2.64 L Hgb 7.8 L 7.7 L Hct 22.8 L 21.9 L MCV 84.3 83.1 MCH 28.8 29.1 MCHC 34.2 35.0 RDW 18.0 H 17.7 H Plt Count 83 L 83 L MPV 8.3 D 8.3 Neutrophils % (Manual) Band Neutrophils % Lymphocytes % (Manual) Monocytes % (Manual) Eosinophils % (Manual) Basophils % (Manual) Myelocytes % (Man) Promyelocytes % (Man) Blast Cells % (Manual) Nucleated RBC % Metamyelocytes Hypochromia Platelet Estimate Polychromasia Anisocytosis Macrocytosis Ho Cells Fragmented RBCs Sodium 137 Potassium 4.2 Chloride 107 Carbon Dioxide 25 Anion Gap 6 L BUN 16.7 Creatinine 0.2 L Est GFR (CKD-EPI)AfAm 196.46 Est GFR (CKD-EPI)NonAf 169.51 Random Glucose 119 H Calcium 6.8 L* Phosphorus 2.8 Magnesium 1.9 Total Bilirubin 0.8 AST 24 ALT 32 Alkaline Phosphatase 178 H Total Protein 4.3 L Albumin 1.8 L Active Medications Generic Name Dose Route Start Last Admin Trade Name Freq PRN Reason Stop Dose Admin Amino Acids 30 ml 07/19/20 10:00 07/19/20 10:03 Prosource No Carb Liquid Pkt PO 30 ml DAILY [facility] Administration Banana Based Medical Food 1 packet 07/10/20 22:00 07/19/20 06:03 Banatrol Plus Powder Packet GT 1 packet TID RAUL Administration Dextrose 12.5 gm 07/08/20 07:08 07/08/20 07:38 D50w (Vial) - IVPUSH 12.5 gm PRN PRN Administration HYPOGLYCEMIA Folic Acid 1 mg 07/06/20 10:00 07/19/20 10:04 Folic Acid - NGT 1 mg DAILY [facility] Administration Heparin Sodium (Porcine) 5,000 unit 07/10/20 22:00 07/19/20 06:03 Heparin - SQ 5,000 unit TID RAUL Administration Vasopressin 40 units/ Sodium 100 mls @ 5 mls/hr 07/08/20 07:00 07/19/20 10:39 Chloride IVPB 1 units/hr ASDIR RAUL 2.5 mls/hr Titration Protocol 2 UNITS/HR Dextrose/Lactated Ringer's 20 meq in 1,000 mls @ 30 mls/hr 07/12/20 23:30 07/19/20 06:00 D5-Lr+20 Meq Kcl - IV 30 mls/hr ASDIR RAUL Administration Midazolam HCl 100 mg in 100 mls @ 1 mls/hr 07/15/20 08:15 07/19/20 08:15 Midazolam 100mg/100ml-0.9%Nacl IVPB Not Given TITR RAUL Protocol 1 MG/HR Dexmedetomidine/Sodium Chloride 400 mcg in 100 mls @ 1.555 mls/hr 07/16/20 15:30 07/18/20 15:30 Precedex 400 Mcg/100 Ml Inject IVPB Not Given TITR RAUL 0.2 MCG/KG/HR Morphine Sulfate 1 mg 07/14/20 08:24 Morphine Sulfate IVPUSH Q6H PRN PAIN LEVEL 6-10 Multivitamins/Minerals 15 ml 07/06/20 11:45 07/19/20 10:04 Certavite-Antioxidant Liquid NGT 15 ml DAILY [facility] Administration Potassium Chloride 40 meq 07/17/20 12:30 07/19/20 10:03 Potassium Chloride Oral Liquid PO 40 meq DAILY [facility] Administration Potassium Phos/Sodium Phos 1 packet 07/09/20 14:00 07/19/20 06:03 Phos-Nak Packet - PO 1 packet TID [facility] Administration Thiamine HCl 100 mg 07/11/20 12:45 07/19/20 10:07 Vitamin B1 Injection - IVPB 100 mg DAILY [facility] Administration ASSESSMENT/PLAN: This is a 34 year old female with PMH of cachexia, polysubstance abuse (ETOH, heroin), cirrhosis, HTN, psoriasis, and asthma. She presented to the ER after an episode of hypoglycemia at home, and was BIBEMS with hypoglycemia, hypotension, hypoxia, hypothermia. Admitted to ICU due to possible sepsis due to UTI and PNA, Refeeding syndrome, and SBO. Neuro - lethargic, arousable - sedated on versed since reintubation>> wean off versed - restart precedex Cardiac - Hx of HTN >> hold bp meds - Vasso only if MAP < 65 - continue to wean off pressors, currently on vasso 0.8 Resp - pt has history of asthma/ albuterol PRN - intubated 07/04 - extubated 07/18 - reintubated on 07/18 in afternoon because patient was desaturaing - ET tube slipped up, was at 18, patient desaturating to high 80s. pushed tube to 22, patient sat 100% GI - Transaminitis resolved - dark green diarrhea in flexi seal - as per old records, hx of cirrhosis with hepatic encephalopahthy ammonia levels & PT/INR orderd - Child-blackwell score using last coags: 9 (class B) Heme - Hbg continues to fluctuate despite proper draws from central line - continue to monitor & transfuse if hbg < 7 ID - new infiltrates on CXR, possibly aspiration, continue to monitor for signs/symptoms of infection - Sepsis secondary UTI vs Right sided PNA >> resolved - ID consult appreciated (Dr. Martines) >> s/p 17 days of zosyn - Wound care consult for sacral ulcer, is debridement necessary? - TP zinc for ulcer and broken skin Renal - 600 cc urine output yesterday - continue to monitor urine output Endocrine - continue to monitor sugars - TSH elevated, fT4 low, reevaluate once patient is more stable FEN - monitor electrolyt >>> keep K > 4, Mg > 2, PO4 > 3.5. - electrolytes stable today >> continue to monitor - perative started today @ 45cc/hr - prosource daily - d/c standing IVF Lines - central line in [facility] 07/17 PPx - DVT- heparin 500o TID decreased to BID b/c of her weight - Protonixs held due to hypomagnesmia - SCDs Dispo: ethics consulted Visit type - Emergency Visit Emergency Visit: Yes ED Registration Date: 07/01/20 Care time: The patient presented to the Emergency Department on the above date and was hospitalized for further evaluation of their emergent condition. - New Patient This patient is new to me today: No - Critical Care Critical Care patient: Yes Total Critical Care Time (in minutes): 36 Critical Care Statement: The care of this patient involved high complexity decision making to prevent further life threatening deterioration of the patient's condition and/or to evaluate & treat vital organ system(s) failure or risk of failure. - Discharge Referral Referred to [facility] Med P.C.: No ATTENDING PHYSICIAN STATEMENT I saw and evaluated the patient. I reviewed the resident's note and discussed the case with the resident. I agree with the resident's findings and plan as documented. SUBJECTIVE: OBJECTIVE: ASSESSMENT AND PLAN:
[2020-07-19] MEDS ORDERED: NYSTATIN 100000 UNIT/GM TOPICAL OINTMENT 15 GM TUBE TP SCH (13:30)
--- NOTE | 2020-07-19 13:45 | PN ---
Progress Note, Physician History of Present Illness: Pt seen and examined at bedside. She remains in the ICU. - Current Medication List Current Medications: Active Medications Amino Acids (Prosource No Carb Liquid Pkt) 30 ml PO DAILY [facility] Last Admin: 07/19/20 10:03 Dose: 30 ml Documented by: Banana Based Medical Food (Banatrol Plus Powder Packet) 1 packet GT TID [facility] Last Admin: 07/19/20 13:17 Dose: 1 packet Documented by: Dextrose (D50w (Vial) -) 12.5 gm IVPUSH PRN PRN PRN Reason: HYPOGLYCEMIA Last Admin: 07/08/20 07:38 Dose: 12.5 gm Documented by: Folic Acid (Folic Acid -) 1 mg NGT DAILY [facility] Last Admin: 07/19/20 10:04 Dose: 1 mg Documented by: Heparin Sodium (Porcine) (Heparin -) 5,000 unit SQ BID RAUL Vasopressin 40 units/ Sodium (Chloride) 100 mls @ 5 mls/hr IVPB ASDIR [facility]; Protocol Last Titration: 07/19/20 10:39 Dose: 1 units/hr, 2.5 mls/hr Documented by: Midazolam HCl (Midazolam 100mg/100ml-0.9%Nacl) 100 mg in 100 mls @ 1 mls/hr IVPB TITR [facility]; Protocol Last Titration: 07/19/20 13:17 Dose: 3 mg/hr, 3 mls/hr Documented by: Dexmedetomidine/Sodium Chloride (Precedex 400 Mcg/100 Ml Inject) 400 mcg in 100 mls @ 1.555 mls/hr IVPB TITR RAUL Last Infusion: 07/19/20 11:51 Dose: 0.5 mcg/kg/hr, 3.887 mls/hr Documented by: Morphine Sulfate (Morphine Sulfate) 1 mg IVPUSH Q6H PRN PRN Reason: PAIN LEVEL 6-10 Multi-Ingredient Ointment (Zinc Oxide) 1 applic TP DAILY [facility] Multivitamins/Minerals (Certavite-Antioxidant Liquid) 15 ml NGT DAILY [facility] Last Admin: 07/19/20 10:04 Dose: 15 ml Documented by: Nystatin (Mycostatin Ointment -) 1 applic TP DAILY [facility] Potassium Chloride (Potassium Chloride Oral Liquid) 40 meq PO DAILY [facility] Last Admin: 07/19/20 10:03 Dose: 40 meq Documented by: Potassium Phos/Sodium Phos (Phos-Nak Packet -) 1 packet PO TID [facility]UL Last Admin: 07/19/20 13:17 Dose: 1 packet Documented by: Thiamine HCl (Vitamin B1 Injection -) 100 mg IVPB DAILY [facility] Last Admin: 07/19/20 10:07 Dose: 100 mg Documented by: - Objective Vital Signs: Vital Signs Temperature 98.9 F 07/19/20 10:00 Pulse Rate 86 07/19/20 12:00 Respiratory Rate 15 07/19/20 12:00 Blood Pressure 95/71 07/19/20 12:00 O2 Sat by Pulse Oximetry (%) 99 07/19/20 12:00 Constitutional: Yes: Calm Eyes: Yes: Conjunctiva Clear HENT: Yes: Atraumatic Neck: Yes: Supple Cardiovascular: Yes: S1, S2 Respiratory: Yes: Mechanically Ventilated Gastrointestinal: Yes: Soft Genitourinary: Yes: Uribe Present Musculoskeletal: Yes: Muscle Weakness Edema: No Neurological: Yes: Lethargy Labs: CBC, BMP 07/19/20 08:20 07/19/20 06:25 INR, PTT INR 2.08 (0.83-1.09) H 07/06/20 08:05 Problem List - Problems (1) Hypoglycemia Code(s): E16.2 - HYPOGLYCEMIA, UNSPECIFIED (2) Sepsis Code(s): A41.9 - SEPSIS, UNSPECIFIED ORGANISM Qualifiers: Sepsis type: sepsis due to unspecified organism Sepsis acute organ dysfunction status: unspecified Qualified Code(s): A41.9 - Sepsis, unspecified organism (3) Hypoalbuminemia Code(s): E88.09 - OTH DISORDERS OF PLASMA-PROTEIN METABOLISM, NEC (4) Hyponatremia Code(s): E87.1 - HYPO-OSMOLALITY AND HYPONATREMIA Assessment/Plan Current Medications Generic Name Dose Route Start Last Admin Trade Name Freq PRN Reason Stop Dose Admin Amino Acids 30 ml 07/19/20 10:00 07/19/20 10:03 Prosource No Carb Liquid Pkt PO 30 ml DAILY [facility]UL Administration Banana Based Medical Food 1 packet 07/10/20 22:00 07/19/20 13:17 Banatrol Plus Powder Packet GT 1 packet TID RAUL Administration Dextrose 12.5 gm 07/08/20 07:08 07/08/20 07:38 D50w (Vial) - IVPUSH 12.5 gm PRN PRN Administration HYPOGLYCEMIA Folic Acid 1 mg 07/06/20 10:00 07/19/20 10:04 Folic Acid - NGT 1 mg DAILY [facility] Administration Heparin Sodium (Porcine) 5,000 unit 07/20/20 10:00 Heparin - SQ BID RAUL Vasopressin 40 units/ Sodium 100 mls @ 5 mls/hr 07/08/20 07:00 07/19/20 10:39 Chloride IVPB 1 units/hr ASDIR RAUL 2.5 mls/hr Titration Protocol 2 UNITS/HR Midazolam HCl 100 mg in 100 mls @ 1 mls/hr 07/15/20 08:15 07/19/20 13:17 Midazolam 100mg/100ml-0.9%Nacl IVPB 3 mg/hr TITR RAUL 3 mls/hr Titration Protocol 1 MG/HR Dexmedetomidine/Sodium Chloride 400 mcg in 100 mls @ 1.555 mls/hr 07/16/20 15:30 07/19/20 11:51 Precedex 400 Mcg/100 Ml Inject IVPB 0.5 mcg/kg/hr TITR RAUL 3.887 mls/hr Infusion 0.2 MCG/KG/HR Morphine Sulfate 1 mg 07/14/20 08:24 Morphine Sulfate IVPUSH Q6H PRN PAIN LEVEL 6-10 Multi-Ingredient Ointment 1 applic 07/19/20 13:30 Zinc Oxide TP DAILY [facility] Multivitamins/Minerals 15 ml 07/06/20 11:45 07/19/20 10:04 Certavite-Antioxidant Liquid NGT 15 ml DAILY [facility] Administration Nystatin 1 applic 07/19/20 13:45 Mycostatin Ointment - TP DAILY [facility] Potassium Chloride 40 meq 07/17/20 12:30 07/19/20 10:03 Potassium Chloride Oral Liquid PO 40 meq DAILY [facility] Administration Potassium Phos/Sodium Phos 1 packet 07/09/20 14:00 07/19/20 13:17 Phos-Nak Packet - PO 1 packet TID [facility] Administration Thiamine HCl 100 mg 07/11/20 12:45 07/19/20 10:07 Vitamin B1 Injection - IVPB 100 mg DAILY RAUL Administration Impression 1. azotemia 2. hyponatremia 3. hyperkalemia 4. hypotension 5. sepsis 6. sbo 7. uti 8. liver cirrhosis 9. hypoalbuminemia 10. etoh abuse 11. substance abuse 12. psoriasis 13. acute resp failure 14. malnutrition Plan - lytes are stabilizing - vent support - cont feeds - discussed with ICU - cont to monitor lytes
[2020-07-19] MEDS: ZINC OXIDE 20% TOPICAL OINTMENT 30 GM TUBE TP SCH (14:00)
[2020-07-19 14:12] LABS: INR 2.62 (0.83-1.09); PROTHROMBIN TIME (PATIENT) 31.2 SEC (9.7-13.0)
--- NOTE | 2020-07-19 15:15 | PN ---
Progress Note, Physician History of Present Illness: patient extubated' looks stable - Current Medication List Current Medications: Active Medications Amino Acids (Prosource No Carb Liquid Pkt) 30 ml PO DAILY [facility] Last Admin: 07/19/20 10:03 Dose: 30 ml Documented by: Banana Based Medical Food (Banatrol Plus Powder Packet) 1 packet GT TID [facility]UL Last Admin: 07/19/20 13:17 Dose: 1 packet Documented by: Dextrose (D50w (Vial) -) 12.5 gm IVPUSH PRN PRN PRN Reason: HYPOGLYCEMIA Last Admin: 07/08/20 07:38 Dose: 12.5 gm Documented by: Folic Acid (Folic Acid -) 1 mg NGT DAILY [facility] Last Admin: 07/19/20 10:04 Dose: 1 mg Documented by: Heparin Sodium (Porcine) (Heparin -) 5,000 unit SQ BID [facility] Vasopressin 40 units/ Sodium (Chloride) 100 mls @ 5 mls/hr IVPB ASDIR [facility]; Protocol Last Titration: 07/19/20 10:39 Dose: 1 units/hr, 2.5 mls/hr Documented by: Midazolam HCl (Midazolam 100mg/100ml-0.9%Nacl) 100 mg in 100 mls @ 1 mls/hr IVPB TITR [facility]; Protocol Last Titration: 07/19/20 13:17 Dose: 3 mg/hr, 3 mls/hr Documented by: Dexmedetomidine/Sodium Chloride (Precedex 400 Mcg/100 Ml Inject) 400 mcg in 100 mls @ 1.555 mls/hr IVPB TITR [facility] Last Infusion: 07/19/20 11:51 Dose: 0.5 mcg/kg/hr, 3.887 mls/hr Documented by: Morphine Sulfate (Morphine Sulfate) 1 mg IVPUSH Q6H PRN PRN Reason: PAIN LEVEL 6-10 Multi-Ingredient Ointment (Zinc Oxide) 1 applic TP DAILY [facility] Multivitamins/Minerals (Certavite-Antioxidant Liquid) 15 ml NGT DAILY [facility] Last Admin: 07/19/20 10:04 Dose: 15 ml Documented by: Nystatin (Mycostatin Ointment -) 1 applic TP DAILY [facility] Potassium Chloride (Potassium Chloride Oral Liquid) 40 meq PO DAILY [facility] Last Admin: 07/19/20 10:03 Dose: 40 meq Documented by: Potassium Phos/Sodium Phos (Phos-Nak Packet -) 1 packet PO TID [facility] Last Admin: 07/19/20 13:17 Dose: 1 packet Documented by: Thiamine HCl (Vitamin B1 Injection -) 100 mg IVPB DAILY [facility] Last Admin: 07/19/20 10:07 Dose: 100 mg Documented by: - Objective Vital Signs: Vital Signs Temperature 99.9 F H 07/19/20 14:00 Pulse Rate 82 07/19/20 14:00 Respiratory Rate 16 07/19/20 14:00 Blood Pressure 89/65 L 07/19/20 14:00 O2 Sat by Pulse Oximetry (%) 100 07/19/20 14:00 Constitutional: Yes: No Distress, Calm Cardiovascular: Yes: S1, S2 Respiratory: Yes: Regular, CTA Bilaterally Gastrointestinal: Yes: Normal Bowel Sounds, Soft Musculoskeletal: Yes: WNL Extremities: Yes: Other Neurological: Yes: Alert Psychiatric: Yes: Alert Labs: CBC, BMP 07/19/20 08:20 07/19/20 06:25 INR, PTT INR 2.62 (0.83-1.09) H 07/19/20 13:50 Assessment/Plan Pneumonia likely Aspiration UTI Sepsis Hyponatremia SBO resolving Alcohol/Heroin Abuse Anemia Failure to Thrive Severe Protein Calorie Malnutrition uti plan extubated stable stop abx monitor cc 35 min
--- NOTE | 2020-07-19 15:17 | PN ---
Progress Note, Physician History of Present Illness: stable extubated no new issues - Current Medication List Current Medications: Active Medications Amino Acids (Prosource No Carb Liquid Pkt) 30 ml PO DAILY [facility] Last Admin: 07/19/20 10:03 Dose: 30 ml Documented by: Banana Based Medical Food (Banatrol Plus Powder Packet) 1 packet GT TID [facility]UL Last Admin: 07/19/20 13:17 Dose: 1 packet Documented by: Dextrose (D50w (Vial) -) 12.5 gm IVPUSH PRN PRN PRN Reason: HYPOGLYCEMIA Last Admin: 07/08/20 07:38 Dose: 12.5 gm Documented by: Folic Acid (Folic Acid -) 1 mg NGT DAILY [facility] Last Admin: 07/19/20 10:04 Dose: 1 mg Documented by: Heparin Sodium (Porcine) (Heparin -) 5,000 unit SQ BID RAUL Vasopressin 40 units/ Sodium (Chloride) 100 mls @ 5 mls/hr IVPB ASDIR [facility]; Protocol Last Titration: 07/19/20 10:39 Dose: 1 units/hr, 2.5 mls/hr Documented by: Midazolam HCl (Midazolam 100mg/100ml-0.9%Nacl) 100 mg in 100 mls @ 1 mls/hr IVPB TITR [facility]; Protocol Last Titration: 07/19/20 13:17 Dose: 3 mg/hr, 3 mls/hr Documented by: Dexmedetomidine/Sodium Chloride (Precedex 400 Mcg/100 Ml Inject) 400 mcg in 100 mls @ 1.555 mls/hr IVPB TITR [facility] Last Infusion: 07/19/20 11:51 Dose: 0.5 mcg/kg/hr, 3.887 mls/hr Documented by: Morphine Sulfate (Morphine Sulfate) 1 mg IVPUSH Q6H PRN PRN Reason: PAIN LEVEL 6-10 Multi-Ingredient Ointment (Zinc Oxide) 1 applic TP DAILY [facility] Multivitamins/Minerals (Certavite-Antioxidant Liquid) 15 ml NGT DAILY [facility] Last Admin: 07/19/20 10:04 Dose: 15 ml Documented by: Nystatin (Mycostatin Ointment -) 1 applic TP DAILY [facility] Potassium Chloride (Potassium Chloride Oral Liquid) 40 meq PO DAILY [facility] Last Admin: 07/19/20 10:03 Dose: 40 meq Documented by: Potassium Phos/Sodium Phos (Phos-Nak Packet -) 1 packet PO TID [facility]UL Last Admin: 07/19/20 13:17 Dose: 1 packet Documented by: Thiamine HCl (Vitamin B1 Injection -) 100 mg IVPB DAILY [facility] Last Admin: 07/19/20 10:07 Dose: 100 mg Documented by: - Objective Vital Signs: Vital Signs Temperature 99.9 F H 07/19/20 14:00 Pulse Rate 82 07/19/20 14:00 Respiratory Rate 16 07/19/20 14:00 Blood Pressure 89/65 L 07/19/20 14:00 O2 Sat by Pulse Oximetry (%) 100 07/19/20 14:00 Constitutional: Yes: No Distress, Calm, Thin, Other (failure to thrive) Cardiovascular: Yes: S1, S2 Respiratory: Yes: Regular, On Nasal O2, Poor Air Entry Gastrointestinal: Yes: Normal Bowel Sounds, Soft Musculoskeletal: Yes: WNL Extremities: Yes: WNL Neurological: Yes: Alert Psychiatric: Yes: Other Labs: CBC, BMP 07/19/20 08:20 07/19/20 06:25 INR, PTT INR 2.62 (0.83-1.09) H 07/19/20 13:50 Assessment/Plan Pneumonia likely Aspiration UTI Sepsis Hyponatremia SBO resolving Alcohol/Heroin Abuse Anemia Failure to Thrive Severe Protein Calorie Malnutrition uti plan extubated consider stopping abx close watch rest as per the icu cc 37 min
[2020-07-19] MEDS: NYSTATIN 100000 UNIT/GM TOPICAL OINTMENT 15 GM TUBE TP SCH ×2 (16:18→18:40)
[2020-07-19] MEDS: DEXMEDETOMIDINE IN 0.9 % NACL 400 MCG/100 ML VIAL IVPB SCH ×2 (16:19→18:37)
[2020-07-19] MEDS ORDERED: PCA PUMP NR ONE (20:30)
[2020-07-19] MEDS ORDERED: MIDAZOLAM IN 0.9 % SOD.CHLORID 1 MG/1 ML PLAST..BAG ONE (21:28)
--- NOTE | 2020-07-19 21:50 | PN ---
Progress Note, Physician - Current Medication List Current Medications: Active Medications Amino Acids (Prosource No Carb Liquid Pkt) 30 ml PO DAILY [facility]UL Last Admin: 07/19/20 10:03 Dose: 30 ml Documented by: Banana Based Medical Food (Banatrol Plus Powder Packet) 1 packet GT TID [facility]UL Last Admin: 07/19/20 13:17 Dose: 1 packet Documented by: Dextrose (D50w (Vial) -) 12.5 gm IVPUSH PRN PRN PRN Reason: HYPOGLYCEMIA Last Admin: 07/08/20 07:38 Dose: 12.5 gm Documented by: Folic Acid (Folic Acid -) 1 mg NGT DAILY [facility] Last Admin: 07/19/20 10:04 Dose: 1 mg Documented by: Heparin Sodium (Porcine) (Heparin -) 5,000 unit SQ BID [facility] Vasopressin 40 units/ Sodium (Chloride) 100 mls @ 5 mls/hr IVPB ASDIR [facility]; Protocol Last Titration: 07/19/20 10:39 Dose: 1 units/hr, 2.5 mls/hr Documented by: Midazolam HCl (Midazolam 100mg/100ml-0.9%Nacl) 100 mg in 100 mls @ 1 mls/hr IVPB TITR [facility]; Protocol Last Titration: 07/19/20 15:30 Dose: 0 mg/hr, 0 mls/hr Documented by: Dexmedetomidine/Sodium Chloride (Precedex 400 Mcg/100 Ml Inject) 400 mcg in 100 mls @ 1.555 mls/hr IVPB TITR [facility] Last Admin: 07/19/20 18:37 Dose: 0.7 mcg/kg/hr, 5.442 mls/hr Documented by: Morphine Sulfate (Morphine Sulfate) 1 mg IVPUSH Q6H PRN PRN Reason: PAIN LEVEL 6-10 Multi-Ingredient Ointment (Zinc Oxide) 1 applic TP DAILY [facility] Last Admin: 07/19/20 14:00 Dose: 1 applic Documented by: Multivitamins/Minerals (Certavite-Antioxidant Liquid) 15 ml NGT DAILY [facility] Last Admin: 07/19/20 10:04 Dose: 15 ml Documented by: Nystatin (Mycostatin Ointment -) 1 applic TP DAILY [facility] Last Admin: 07/19/20 18:40 Dose: 1 applic Documented by: Potassium Chloride (Potassium Chloride Oral Liquid) 40 meq PO DAILY [facility] Last Admin: 07/19/20 10:03 Dose: 40 meq Documented by: Potassium Phos/Sodium Phos (Phos-Nak Packet -) 1 packet PO TID [facility] Last Admin: 07/19/20 13:17 Dose: 1 packet Documented by: Thiamine HCl (Vitamin B1 Injection -) 100 mg IVPB DAILY [facility] Last Admin: 07/19/20 10:07 Dose: 100 mg Documented by: - Objective Vital Signs: Vital Signs Temperature 99.2 F 07/19/20 18:00 Pulse Rate 98 H 07/19/20 18:00 Respiratory Rate 21 H 07/19/20 19:43 Blood Pressure 88/59 L 07/19/20 18:00 O2 Sat by Pulse Oximetry (%) 100 07/19/20 19:43 Labs: CBC, BMP 07/19/20 08:20 07/19/20 06:25 INR, PTT INR 2.62 (0.83-1.09) H 07/19/20 13:50 Problem List - Problems (1) Respiratory failure Code(s): J96.90 - RESPIRATORY FAILURE, UNSP, UNSP W HYPOXIA OR HYPERCAPNIA (2) Sepsis Code(s): A41.9 - SEPSIS, UNSPECIFIED ORGANISM Qualifiers: Sepsis type: sepsis due to unspecified organism Sepsis acute organ dysfunction status: unspecified Qualified Code(s): A41.9 - Sepsis, unspecified organism (3) Anemia Code(s): D64.9 - ANEMIA, UNSPECIFIED (4) At risk for electrolyte imbalance Code(s): Z91.89 - OTH PERSONAL RISK FACTORS, NOT ELSEWHERE CLASSIFIED (5) SBO (small bowel obstruction) Code(s): K56.609 - UNSP INTESTNL OBST, UNSP TO PARTIAL VERSUS COMPLETE OBST (6) Liver cirrhosis, alcoholic Code(s): K70.30 - ALCOHOLIC CIRRHOSIS OF LIVER WITHOUT ASCITES (7) Hypoalbuminemia Code(s): E88.09 - OTH DISORDERS OF PLASMA-PROTEIN METABOLISM, NEC (8) Substance abuse Code(s): F19.10 - OTHER PSYCHOACTIVE SUBSTANCE ABUSE, UNCOMPLICATED (9) Cachexia Code(s): R64 - CACHEXIA (10) Severe malnutrition Code(s): E43 - UNSPECIFIED SEVERE PROTEIN-CALORIE MALNUTRITION
[2020-07-20] MEDS: VASOPRESSIN 40 UNITS in SODIUM CHLORIDE 98 ML IVPB SCH (01:00)
[2020-07-20] MEDS: BANATROL PLUS POWDER PACKET GT SCH ×3 (06:16→22:00)
[2020-07-20] MEDS: NAPH,MB-DB/K PH,MBDB POWDER PACKET PO SCH ×3 (06:16→22:00)
[2020-07-20 07:34] LABS: INR 2.44 (0.83-1.09)
[2020-07-20 07:37] LABS: HEMOGLOBIN 7.1 GM/dL (10.7-15.3); MCH 28.9 pg (25.7-33.7); MCHC 33.7 g/dl (32.0-36.0); MEAN CELL VOLUME 85.7 fl (80-96); MEAN PLT VOLUME 7.9 fl (7.5-11.1); PLATELET COUNT 59 K/MM3 (134-434); RBC 2.45 M/mm3 (3.60-5.2); WHITE BLOOD COUNT 2.5 K/mm3 (4.0-10.0)
[2020-07-20 08:09] LABS: CHLORIDE 108 mmol/L (98-107); POTASSIUM 4.2 mmol/L (3.5-5.1); SODIUM 138 mmol/L (136-145)
[2020-07-20 08:41] LABS: ALBUMIN 1.5 g/dl (3.4-5.0); ALK PHOS 175 U/L (45-117); ANION GAP 7 MMOL/L (8-16); BILIRUBIN,TOTAL 0.6 mg/dL (0.2-1); BLOOD UREA NITROGEN 20.8 mg/dL (7-18); CO2 23 mmol/L (21-32); CREATININE < 0.2 mg/dL (0.55-1.3); GLUCOSE,RANDOM 100 mg/dL (74-106); MAGNESIUM 1.8 mg/dL (1.8-2.4); SGOT/AST 19 U/L (15-37); SGPT/ALT 26 U/L (13-61); TOT PROT 3.9 g/dl (6.4-8.2)
[2020-07-20 08:49] LABS: CALCIUM 6.7 mg/dL (8.5-10.1)
[2020-07-20] MEDS ORDERED: PT OWN MED DRAWER 7, Y5N ONE (09:24)
[2020-07-20 09:35] LABS: IRON SERUM 23 ug/dL (50-175); TOTAL IRON BINDING CAPACITY 88 ug/dL (250-450)
[2020-07-20] MEDS: AMINO ACIDS/PROTEIN HYDROLYS 30 ML LIQUID.PKT PO SCH (09:35)
[2020-07-20] MEDS: FOLIC ACID 1 MG TABLET (FP) NGT SCH (09:35)
[2020-07-20] MEDS: MULTIVIT-MINERALS ORAL LIQUID NGT SCH (09:35)
[2020-07-20] MEDS: POTASSIUM CHLORIDE ORAL LIQUID 20 MEQ/15 ML PO SCH (09:35)
[2020-07-20] MEDS: THIAMINE HCL 200 MG/2 ML VIAL IVPB SCH (09:40)
[2020-07-20] MEDS: NYSTATIN 100000 UNIT/GM TOPICAL OINTMENT 15 GM TUBE TP SCH (09:40)
[2020-07-20] MEDS: ZINC OXIDE 20% TOPICAL OINTMENT 30 GM TUBE TP SCH (09:41)
--- NOTE | 2020-07-20 09:55 | CON.HO ---
Consult Consult Specialty:: Hematology Reason for Consultation:: "Anemia and elevated INR" - History of Present Illness Chief Complaint: Hypoglycemia History of Present Illness: Hx taken from EMR as patient is currently intubated and sedated: 35F with PMHx of polysubstance use, Asthma, Cirrhosis initially presented to ER on 07/01 for AMS found to be hypoglycemic. On arrival to ER she was found to be in septic shock and was intubated. Patient also had severe transaminitis concerning for ischemia from hypotesion which has since normalized. She was star jeremie on broad spectrum antibiotics for UTI and PNA . She was extubated on 07/18 but was reintubated and prognosis is guarded. Hematology has been consulted for low hb and elevated INR. On review of her labs; patient's baseline Hb runs 8-9 (currently 7.1) plts were 200k in june (now 59k) and INR was 1.8 in June, now 2.4. Iron studies with low iron and iron sat of 26. B12 elevated to 2423, folate WNL. Of note, patient has severe malnutrition as she weighs 63lbs and albumin is less than 2. 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) Gastrointestinal: Yes: Other (GERD) Hepatobiliary: Yes: Cirrhosis, Other (Elevated LFT's) ...LMP: 02/01/20 ...: No Psych: Yes: Addictions - Alcohol/Substance Use Hx Alcohol Use: No - Smoking History Smoking history: Current every day smoker Have you smoked in the past 12 months: Yes Aproximately how many cigarettes per day: 3 - Social History Usual Living Arrangement: With Parent (clean and neat) Home Medications - Allergies Allergies/Adverse Reactions: Allergies Allergy/AdvReac Type Severity Reaction Status Date / Time No Known Allergies Allergy Verified 07/01/20 14:36 - Home Medications Home Medications: Ambulatory Orders Sulfamethoxazole/Trimethoprim [Bactrim Ds -] 1 tab PO BID #14 tablet 06/26/20 Family Medical History Family History: Unable to Obtain Review of Systems Unable to obtain ROS, reason: Intubated and Sedated Physical Exam Vital Signs: Vital Signs Temperature 98.4 F 07/20/20 07:59 Pulse Rate 84 07/20/20 08:03 Respiratory Rate 17 07/20/20 08:03 Blood Pressure 81/57 L 07/20/20 07:59 O2 Sat by Pulse Oximetry (%) 99 07/20/20 08:03 Constitutional: Yes: Other (severely cachectic, awake and sedated on precedex; able to answer yes or no questions, lethargic) Eyes: Yes: Conjunctiva Clear HENT: Yes: Atraumatic, Normocephalic Cardiovascular: Yes: Tachycardia, Other Respiratory: Yes: Other (anterior lung aguirre with mechanical breath sounds) Gastrointestinal: Yes: Soft Extremities: Yes: Other (no ll edema) Integumentary: Yes: Pressure Ulcer Neurological: Yes: Alert Labs: CBC, BMP 07/20/20 06:00 07/20/20 06:00 Assessment/Plan 35F with hx of polysubstance abuse, 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 If normal/increased most consistent with Liver failure) -if Fibrinogen is <150, can supplement with Cryoprecipitate -if above labs are consistent with DIC; can supplement FFP as needed for supportive care Anemia, Thrombocytopenia -multifactorial;most likely 2/2 bone marrow suppression due to acute illness -iron 23, iron sat 26, B12 2423, folate WNL -would transfuse for hb<7, plts <10k unless actively bleeding -follow up above labs
[2020-07-20] MEDS ORDERED: POTASSIUM PHOSPHATE 30 MM in DEXTROSE 5%-WATER - 250 ML IVPB ONE (10:00)
[2020-07-20 10:19] LABS: RETICULOCYTES 4.15 % (0.5-1.5)
[2020-07-20 10:55] LABS: EPI CELLS >36 /uL (0-25.1); HYALINE CASTS 98 /uL (0-3.1); PH,URINE 6.5 (5.0-8.0); URINE APPEARANCE TURBID; URINE BACTERIA 6938 /uL (0-1359); URINE BILIRUBIN 2+ (NEGATIVE); URINE COLOR DK YELLOW; URINE GLUCOSE (UA) NEGATIVE (NEGATIVE); URINE KETONE NEGATIVE (NEGATIVE); URINE LEUK ESTERASE 2+ (NEGATIVE); URINE NITRITE NEGATIVE (NEGATIVE); URINE PROTEIN 2+ (NEGATIVE); URINE WBC 8075 /uL (0-25.8)
[2020-07-20 11:18] LABS: URINE RBC 376.6 /uL (0-23.9); YEAST NON SEEN (NEGATIVE)
[2020-07-20] MEDS ORDERED: PHYTONADIONE 10 MG/1 ML AMP IVPB ONE (12:00)
--- NOTE | 2020-07-20 12:38 | PN ---
Teaching Attending Note Name of Resident: Yadira Hamilton ATTENDING PHYSICIAN STATEMENT I saw and evaluated the patient. I reviewed the resident's note and discussed the case with the resident. I agree with the resident's findings and plan as documented. SUBJECTIVE: Patient seen and examined in the ICU. Intubated. Wasted. No pressors. Dense, dark output from mistry (?) Fistula Apparently Continuing care has been unable to reach her mother to discuss GOC. OBJECTIVE: Intake & Output 07/17/20 07/18/20 07/19/20 07/20/20 23:59 23:59 23:59 23:59 Intake Total 2371.6 2005.7 2359.5 801.0 Output Total 2750 600 500 200 Balance -378.4 1405.7 1859.5 601.0 Weight 70 lb 6.4 oz 70 lb 12.8 oz 63 lb 0.835 oz 63 lb 0.835 oz Last Vital Signs Temp Pulse Resp BP Pulse Ox 98.4 F 96 H 27 H 57/47 L 99 07/20/20 07:59 07/20/20 09:00 07/20/20 12:04 07/20/20 09:00 07/20/20 12:04 Active Medications Amino Acids (Prosource No Carb Liquid Pkt) 30 ml PO DAILY [facility] Last Admin: 07/20/20 09:35 Dose: 30 ml Documented by: Banana Based Medical Food (Banatrol Plus Powder Packet) 1 packet GT TID RAUL Last Admin: 07/20/20 06:16 Dose: 1 packet Documented by: Dextrose (D50w (Vial) -) 12.5 gm IVPUSH PRN PRN PRN Reason: HYPOGLYCEMIA Last Admin: 07/08/20 07:38 Dose: 12.5 gm Documented by: Folic Acid (Folic Acid -) 1 mg NGT DAILY [facility] Last Admin: 07/20/20 09:35 Dose: 1 mg Documented by: Heparin Sodium (Porcine) (Heparin -) 5,000 unit SQ BID [facility] Vasopressin 40 units/ Sodium (Chloride) 100 mls @ 5 mls/hr IVPB ASDIR [facility]; Protocol Last Titration: 07/20/20 07:00 Dose: 0 units/hr, 0 mls/hr Documented by: Midazolam HCl (Midazolam 100mg/100ml-0.9%Nacl) 100 mg in 100 mls @ 1 mls/hr IVPB TITR [facility]; Protocol Last Titration: 07/19/20 22:08 Dose: 5 mg/hr, 5 mls/hr Documented by: Dexmedetomidine/Sodium Chloride (Precedex 400 Mcg/100 Ml Inject) 400 mcg in 100 mls @ 1.555 mls/hr IVPB TITR [facility] Last Admin: 07/19/20 18:37 Dose: 0.7 mcg/kg/hr, 5.442 mls/hr Documented by: Potassium Phosphate 30 mm/ (Dextrose) 260 mls @ 62.5 mls/hr IVPB ONCE ONE Stop: 07/20/20 14:09 Last Admin: 07/20/20 09:37 Dose: 62.5 mls/hr Documented by: Morphine Sulfate (Morphine Sulfate) 1 mg IVPUSH Q6H PRN PRN Reason: PAIN LEVEL 6-10 Multi-Ingredient Ointment (Zinc Oxide) 1 applic TP DAILY [facility] Last Admin: 07/20/20 09:41 Dose: 1 applic Documented by: Multivitamins/Minerals (Certavite-Antioxidant Liquid) 15 ml NGT DAILY [facility] Last Admin: 07/20/20 09:35 Dose: 15 ml Documented by: Nystatin (Mycostatin Ointment -) 1 applic TP DAILY [facility] Last Admin: 07/20/20 09:40 Dose: 1 applic Documented by: Potassium Chloride (Potassium Chloride Oral Liquid) 40 meq PO DAILY [facility] Last Admin: 07/20/20 09:35 Dose: 40 meq Documented by: Potassium Phos/Sodium Phos (Phos-Nak Packet -) 1 packet PO TID [facility] Last Admin: 07/20/20 06:16 Dose: 1 packet Documented by: Thiamine HCl (Vitamin B1 Injection -) 100 mg IVPB DAILY [facility] Last Admin: 07/20/20 09:40 Dose: 100 mg Documented by: Gen: intubated, sedated, cachectic Heart: RRR Lung: scattered rhonchi Abd: soft, nontender, +ascites Ext: no edema Laboratory Results - last 24 hr 07/19/20 07/19/20 07/19/20 13:50 13:50 14:18 WBC RBC Hgb Hct MCV MCH MCHC RDW Plt Count MPV Retic Count PT with INR 31.20 H INR 2.62 H Sodium Potassium Chloride Carbon Dioxide Anion Gap BUN Creatinine Est GFR (CKD-EPI)AfAm Est GFR (CKD-EPI)NonAf POC Glucometer 108 Random Glucose Calcium Phosphorus Magnesium Iron TIBC Iron Saturation Unsaturated IBC Total Bilirubin AST ALT Alkaline Phosphatase Ammonia 38.60 H Total Protein Albumin Urine Color Urine Appearance Urine pH Ur Specific [place] Urine Protein Urine Glucose (UA) Urine Ketones Urine Blood Urine Nitrite Urine Bilirubin Urine Urobilinogen Ur Leukocyte Esterase Urine WBC (Auto) Urine RBC (Auto) Urine Casts (Auto) U Pathogenic Cast Auto U Epithel Cells (Auto) U Sm Round Cell (Auto) Urine Bacteria (Auto) Urine Yeast (Auto) 07/19/20 07/20/20 07/20/20 18:11 06:00 06:00 WBC 2.5 L RBC 2.45 L Hgb 7.1 L Hct 21.0 L MCV 85.7 MCH 28.9 MCHC 33.7 RDW 18.0 H Plt Count 59 L D MPV 7.9 Retic Count 4.15 H PT with INR INR Sodium 138 Potassium 4.2 Chloride 108 H Carbon Dioxide 23 Anion Gap 7 L BUN 20.8 H Creatinine < 0.2 L Est GFR (CKD-EPI)AfAm 196.46 Est GFR (CKD-EPI)NonAf 169.51 POC Glucometer 114 Random Glucose 100 Calcium 6.7 L* Phosphorus 2.0 L Magnesium 1.8 Iron 23 L TIBC 88 L Iron Saturation 26 Unsaturated IBC 65 L Total Bilirubin 0.6 AST 19 ALT 26 Alkaline Phosphatase 175 H Ammonia Total Protein 3.9 L Albumin 1.5 L Urine Color Urine Appearance Urine pH Ur Specific [place] Urine Protein Urine Glucose (UA) Urine Ketones Urine Blood Urine Nitrite Urine Bilirubin Urine Urobilinogen Ur Leukocyte Esterase Urine WBC (Auto) Urine RBC (Auto) Urine Casts (Auto) U Pathogenic Cast Auto U Epithel Cells (Auto) U Sm Round Cell (Auto) Urine Bacteria (Auto) Urine Yeast (Auto) 07/20/20 07/20/20 07/20/20 06:00 06:06 10:15 WBC RBC Hgb Hct MCV MCH MCHC RDW Plt Count MPV Retic Count PT with INR 29.00 H INR 2.44 H Sodium Potassium Chloride Carbon Dioxide Anion Gap BUN Creatinine Est GFR (CKD-EPI)AfAm Est GFR (CKD-EPI)NonAf POC Glucometer 92 Random Glucose Calcium Phosphorus Magnesium Iron TIBC Iron Saturation Unsaturated IBC Total Bilirubin AST ALT Alkaline Phosphatase Ammonia Total Protein Albumin Urine Color Dk yellow Urine Appearance Turbid Urine pH 6.5 Ur Specific [place] 1.014 Urine Protein 2+ H Urine Glucose (UA) Negative Urine Ketones Negative Urine Blood 3+ H Urine Nitrite Negative Urine Bilirubin 2+ H Urine Urobilinogen 1.0 Ur Leukocyte Esterase 2+ H Urine WBC (Auto) 8075 Urine RBC (Auto) 376.6 Urine Casts (Auto) 98 U Pathogenic Cast Auto Non seen U Epithel Cells (Auto) >36 U Sm Round Cell (Auto) Non seen Urine Bacteria (Auto) 6938 Urine Yeast (Auto) Non seen ASSESSMENT AND PLAN: Acute Hypoxic Respiratory Failure Pneumonia likely Aspiration UTI Sepsis Hyponatremia Small Bowel Obstruction Alcohol/Heroin Abuse Anemia/Thrombocytopenia Failure to Thrive Severe Protein Calorie Malnutrition Refeeding Syndrome (?) Fistula - Imaging to R/O fistula - monitor urine output, creatinine - replete lytes - ABX per ID - titrate pressors to maintain MAP >65 - titrate FiO2 to keep SpO2 >90% - spontaneous breathing trials as tolerated - titrate enteral feeds to goal - DVT/GI prophylaxis - continue ICU monitoring - may need tracheostomy due to severe malnutrition and deconditioning : will D/W mother as soon as she returns our calls Dr Babb Critical care time spent in reviewing chart, evaluating patient and formulating plan 35 min
--- NOTE | 2020-07-20 12:48 | PN ---
Progress Note, Physician History of Present Illness: events noted urine dirty seems fecal material in the urine continues to be intubated - Current Medication List Current Medications: Active Medications Amino Acids (Prosource No Carb Liquid Pkt) 30 ml PO DAILY [facility] Last Admin: 07/20/20 09:35 Dose: 30 ml Documented by: Banana Based Medical Food (Banatrol Plus Powder Packet) 1 packet GT TID [facility] Last Admin: 07/20/20 06:16 Dose: 1 packet Documented by: Dextrose (D50w (Vial) -) 12.5 gm IVPUSH PRN PRN PRN Reason: HYPOGLYCEMIA Last Admin: 07/08/20 07:38 Dose: 12.5 gm Documented by: Folic Acid (Folic Acid -) 1 mg NGT DAILY [facility] Last Admin: 07/20/20 09:35 Dose: 1 mg Documented by: Heparin Sodium (Porcine) (Heparin -) 5,000 unit SQ BID [facility] Vasopressin 40 units/ Sodium (Chloride) 100 mls @ 5 mls/hr IVPB ASDIR [facility]; Protocol Last Titration: 07/20/20 07:00 Dose: 0 units/hr, 0 mls/hr Documented by: Midazolam HCl (Midazolam 100mg/100ml-0.9%Nacl) 100 mg in 100 mls @ 1 mls/hr IVPB TITR [facility]; Protocol Last Titration: 07/19/20 22:08 Dose: 5 mg/hr, 5 mls/hr Documented by: Dexmedetomidine/Sodium Chloride (Precedex 400 Mcg/100 Ml Inject) 400 mcg in 100 mls @ 1.555 mls/hr IVPB TITR [facility] Last Admin: 07/19/20 18:37 Dose: 0.7 mcg/kg/hr, 5.442 mls/hr Documented by: Potassium Phosphate 30 mm/ (Dextrose) 260 mls @ 62.5 mls/hr IVPB ONCE ONE Stop: 07/20/20 14:09 Last Admin: 07/20/20 09:37 Dose: 62.5 mls/hr Documented by: Morphine Sulfate (Morphine Sulfate) 1 mg IVPUSH Q6H PRN PRN Reason: PAIN LEVEL 6-10 Multi-Ingredient Ointment (Zinc Oxide) 1 applic TP DAILY [facility] Last Admin: 07/20/20 09:41 Dose: 1 applic Documented by: Multivitamins/Minerals (Certavite-Antioxidant Liquid) 15 ml NGT DAILY [facility] Last Admin: 07/20/20 09:35 Dose: 15 ml Documented by: Nystatin (Mycostatin Ointment -) 1 applic TP DAILY [facility] Last Admin: 07/20/20 09:40 Dose: 1 applic Documented by: Potassium Chloride (Potassium Chloride Oral Liquid) 40 meq PO DAILY [facility] Last Admin: 07/20/20 09:35 Dose: 40 meq Documented by: Potassium Phos/Sodium Phos (Phos-Nak Packet -) 1 packet PO TID [facility] Last Admin: 07/20/20 06:16 Dose: 1 packet Documented by: Thiamine HCl (Vitamin B1 Injection -) 100 mg IVPB DAILY [facility] Last Admin: 07/20/20 09:40 Dose: 100 mg Documented by: - Objective Vital Signs: Vital Signs Temperature 98.4 F 07/20/20 07:59 Pulse Rate 96 H 07/20/20 09:00 Respiratory Rate 27 H 07/20/20 12:04 Blood Pressure 57/47 L 07/20/20 09:00 O2 Sat by Pulse Oximetry (%) 99 07/20/20 12:04 Constitutional: Yes: No Distress, Calm Cardiovascular: Yes: S1, S2 Respiratory: Yes: Intubated, Mechanically Ventilated Gastrointestinal: Yes: Normal Bowel Sounds, Soft Genitourinary: Yes: Uribe Present, Other (dirty urine) Musculoskeletal: Yes: WNL Extremities: Yes: WNL Neurological: Yes: Alert, Oriented Psychiatric: Yes: Alert, Oriented Labs: CBC, BMP 07/20/20 06:00 07/20/20 06:00 INR, PTT INR 2.44 (0.83-1.09) H 07/20/20 06:00 Assessment/Plan Pneumonia likely Aspiration UTI Sepsis Hyponatremia SBO resolving Alcohol/Heroin Abuse Anemia Failure to Thrive Severe Protein Calorie Malnutrition uti vesico intestinal fistula plan will restart abx confirm if she has vesico intestinal fistula will need nutrition failure to thrive cc 38 min
--- NOTE | 2020-07-20 12:57 | PN ---
Physical Exam: SUBJECTIVE: Patient seen and examined bedside. Intubated. No acute events overnight. OBJECTIVE: Vital Signs Temp Pulse Resp BP Pulse Ox 98.4 F 96 H 27 H 57/47 L 99 07/20/20 07:59 07/20/20 09:00 07/20/20 12:04 07/20/20 09:00 07/20/20 12:04 GENERAL: Alert, intubated EYES: PERRLA, EOMI, sclera anicteric ENT: NG tube in place, ET tube in place NECK: supple LUNGS: Venti breath sounds BL HEART: RRR normal S1 and S2 ABDOMEN: soft, extremely emaciated EXTREMITIES: cachectic : mistry draining dark brown urine with sediment. When nurses put pressure on flexi seal, output from mistry NEUROLOGICAL: Pt able to comply to commands SKIN: thin, fragile. Stage 2 sacral ulcer dressed. Intake & Output 07/17/20 07/18/20 07/19/20 07/20/20 23:59 23:59 23:59 23:59 Intake Total 2371.6 2005.7 2359.5 801.0 Output Total 2750 600 500 200 Balance -378.4 1405.7 1859.5 601.0 Weight 70 lb 6.4 oz 70 lb 12.8 oz 63 lb 0.835 oz 63 lb 0.835 oz Laboratory Results - last 24 hr 07/19/20 07/19/20 07/19/20 13:50 13:50 14:18 WBC RBC Hgb Hct MCV MCH MCHC RDW Plt Count MPV Retic Count PT with INR 31.20 H INR 2.62 H Sodium Potassium Chloride Carbon Dioxide Anion Gap BUN Creatinine Est GFR (CKD-EPI)AfAm Est GFR (CKD-EPI)NonAf POC Glucometer 108 Random Glucose Calcium Phosphorus Magnesium Iron TIBC Iron Saturation Unsaturated IBC Total Bilirubin AST ALT Alkaline Phosphatase Ammonia 38.60 H Total Protein Albumin Urine Color Urine Appearance Urine pH Ur Specific [place] Urine Protein Urine Glucose (UA) Urine Ketones Urine Blood Urine Nitrite Urine Bilirubin Urine Urobilinogen Ur Leukocyte Esterase Urine WBC (Auto) Urine RBC (Auto) Urine Casts (Auto) U Pathogenic Cast Auto U Epithel Cells (Auto) U Sm Round Cell (Auto) Urine Bacteria (Auto) Urine Yeast (Auto) 09/17/20 09/18/20 09/18/20 18:11 06:00 06:00 WBC 2.5 L RBC 2.45 L Hgb 7.1 L Hct 21.0 L MCV 85.7 MCH 28.9 MCHC 33.7 RDW 18.0 H Plt Count 59 L D MPV 7.9 Retic Count 4.15 H PT with INR INR Sodium 138 Potassium 4.2 Chloride 108 H Carbon Dioxide 23 Anion Gap 7 L BUN 20.8 H Creatinine < 0.2 L Est GFR (CKD-EPI)AfAm 196.46 Est GFR (CKD-EPI)NonAf 169.51 POC Glucometer 114 Random Glucose 100 Calcium 6.7 L* Phosphorus 2.0 L Magnesium 1.8 Iron 23 L TIBC 88 L Iron Saturation 26 Unsaturated IBC 65 L Total Bilirubin 0.6 AST 19 ALT 26 Alkaline Phosphatase 175 H Ammonia Total Protein 3.9 L Albumin 1.5 L Urine Color Urine Appearance Urine pH Ur Specific [place] Urine Protein Urine Glucose (UA) Urine Ketones Urine Blood Urine Nitrite Urine Bilirubin Urine Urobilinogen Ur Leukocyte Esterase Urine WBC (Auto) Urine RBC (Auto) Urine Casts (Auto) U Pathogenic Cast Auto U Epithel Cells (Auto) U Sm Round Cell (Auto) Urine Bacteria (Auto) Urine Yeast (Auto) 07/20/20 07/20/20 07/20/20 06:00 06:06 10:15 WBC RBC Hgb Hct MCV MCH MCHC RDW Plt Count MPV Retic Count PT with INR 29.00 H INR 2.44 H Sodium Potassium Chloride Carbon Dioxide Anion Gap BUN Creatinine Est GFR (CKD-EPI)AfAm Est GFR (CKD-EPI)NonAf POC Glucometer 92 Random Glucose Calcium Phosphorus Magnesium Iron TIBC Iron Saturation Unsaturated IBC Total Bilirubin AST ALT Alkaline Phosphatase Ammonia Total Protein Albumin Urine Color Dk yellow Urine Appearance Turbid Urine pH 6.5 Ur Specific [place] 1.014 Urine Protein 2+ H Urine Glucose (UA) Negative Urine Ketones Negative Urine Blood 3+ H Urine Nitrite Negative Urine Bilirubin 2+ H Urine Urobilinogen 1.0 Ur Leukocyte Esterase 2+ H Urine WBC (Auto) 8075 Urine RBC (Auto) 376.6 Urine Casts (Auto) 98 U Pathogenic Cast Auto Non seen U Epithel Cells (Auto) >36 U Sm Round Cell (Auto) Non seen Urine Bacteria (Auto) 6938 Urine Yeast (Auto) Non seen Active Medications Generic Name Dose Route Start Last Admin Trade Name Freq PRN Reason Stop Dose Admin Amino Acids 30 ml 07/19/20 10:00 07/20/20 09:35 Prosource No Carb Liquid Pkt PO 30 ml DAILY RAUL Administration Banana Based Medical Food 1 packet 07/10/20 22:00 07/20/20 06:16 Banatrol Plus Powder Packet GT 1 packet TID RAUL Administration Dextrose 12.5 gm 07/08/20 07:08 07/08/20 07:38 D50w (Vial) - IVPUSH 12.5 gm PRN PRN Administration HYPOGLYCEMIA Folic Acid 1 mg 07/06/20 10:00 07/20/20 09:35 Folic Acid - NGT 1 mg DAILY RAUL Administration Heparin Sodium (Porcine) 5,000 unit 07/20/20 10:00 Heparin - SQ BID RAUL Vasopressin 40 units/ Sodium 100 mls @ 5 mls/hr 07/08/20 07:00 07/20/20 07:00 Chloride IVPB 0 units/hr ASDIR RAUL 0 mls/hr Titration Protocol 2 UNITS/HR Midazolam HCl 100 mg in 100 mls @ 1 mls/hr 07/15/20 08:15 07/19/20 22:08 Midazolam 100mg/100ml-0.9%Nacl IVPB 5 mg/hr TITR RAUL 5 mls/hr Titration Protocol 1 MG/HR Dexmedetomidine/Sodium Chloride 400 mcg in 100 mls @ 1.555 mls/hr 07/16/20 15:30 07/19/20 18:37 Precedex 400 Mcg/100 Ml Inject IVPB 0.7 mcg/kg/hr TITR RAUL 5.442 mls/hr Administration 0.2 MCG/KG/HR Potassium Phosphate 30 mm/ 260 mls @ 62.5 mls/hr 07/20/20 10:00 07/20/20 09:37 Dextrose IVPB 07/20/20 14:09 62.5 mls/hr ONCE ONE Administration Morphine Sulfate 1 mg 07/14/20 08:24 Morphine Sulfate IVPUSH Q6H PRN PAIN LEVEL 6-10 Multi-Ingredient Ointment 1 applic 07/19/20 13:30 07/20/20 09:41 Zinc Oxide TP 1 applic DAILY RAUL Administration Multivitamins/Minerals 15 ml 07/06/20 11:45 07/20/20 09:35 Certavite-Antioxidant Liquid NGT 15 ml DAILY RAUL Administration Nystatin 1 applic 07/19/20 13:45 07/20/20 09:40 Mycostatin Ointment - TP 1 applic DAILY RAUL Administration Potassium Chloride 40 meq 07/17/20 12:30 07/20/20 09:35 Potassium Chloride Oral Liquid PO 40 meq DAILY RAUL Administration Potassium Phos/Sodium Phos 1 packet 07/09/20 14:00 07/20/20 06:16 Phos-Nak Packet - PO 1 packet TID RAUL Administration Thiamine HCl 100 mg 07/11/20 12:45 07/20/20 09:40 Vitamin B1 Injection - IVPB 100 mg DAILY RAUL Administration ASSESSMENT/PLAN: This is a 34 year old female with PMH of cachexia, polysubstance abuse (ETOH, heroin), cirrhosis, HTN, psoriasis, and asthma. She presented to the ER after an episode of hypoglycemia at home, and was BIBEMS with hypoglycemia, hypotension, hypoxia, hypothermia. Admitted to ICU due to possible sepsis due to UTI and PNA, Refeeding syndrome, and SBO. Neuro - lethargic, arousable, off sedation - precedex Cardiac - Hx of HTN >> hold bp meds - Vasso only if MAP < 65 - continue to wean off pressors Pulm - pt has history of asthma/ albuterol PRN - intubated 07/04 - extubated 07/18 - reintubated on 07/18 in afternoon because patient was desaturaing - CXR mild improvement in R lung GI - Transaminitis resolved - dark green diarrhea in flexi seal - as per old records, hx of cirrhosis with hepatic encephalopahthy ammonia levels & PT/INR orderd - Child-blackwell score using last coags: 9 (class B) Heme - Hbg continues to fluctuate despite proper draws from central line - continue to monitor & transfuse if hbg < 7 - Heme consulted most likely 2/2 nutritional status and cirrhosis can give IV vitamin K 5mg would also obtain the following labs to rule out DIC LDH, Haptoglobin, d-dimer obtain factor VIII Daily labs should include: PT/PTT, Fibrinogen if Fibrinogen is <150, can supplement with Cryoprecipitate ID - new infiltrates on CXR, possibly aspiration, continue to monitor for signs/symptoms of infection - Sepsis secondary UTI vs Right sided PNA - ID consult appreciated (Dr. Martines) >> s/p 17 days of zosyn - possible Rectourethral fistula, restart zosyn today : - possible Rectourethral fistula - GI consulted, patient can't have MRI and is not good surgical candidate - Consult urology - Pelvic CT ordered There is a large amount of ascites throughout the pelvis. There is a Mistry catheter within the urinary bladder. No pelvic masses could be identified. IMPRESSION: Severely limited study with a large amount of ascites. Renal - continue to monitor urine output Endocrine - continue to monitor sugars - TSH elevated, fT4 low, reevaluate once patient is more stable FEN - monitor electrolyt >>> keep K > 4, Mg > 2, PO4 > 3.5. - electrolytes stable today >> continue to monitor - perative started today @ 45cc/hr - prosource daily - d/c standing IVF Lines - central line in [facility] 07/17 PPx - DVT- heparin heparin held until blood loss source can be determined - Protonixs held due to hypomagnesmia - SCDs Visit type - Emergency Visit Emergency Visit: Yes ED Registration Date: 07/01/20 Care time: The patient presented to the Emergency Department on the above date and was hospitalized for further evaluation of their emergent condition. - New Patient This patient is new to me today: No - Critical Care Critical Care patient: Yes Total Critical Care Time (in minutes): 37 Critical Care Statement: The care of this patient involved high complexity decision making to prevent further life threatening deterioration of the patient's condition and/or to evaluate & treat vital organ system(s) failure or risk of failure. - Discharge Referral Referred to [facility] Med [facility] No ATTENDING PHYSICIAN STATEMENT I saw and evaluated the patient. I reviewed the resident's note and discussed the case with the resident. I agree with the resident's findings and plan as documented. SUBJECTIVE: OBJECTIVE: ASSESSMENT AND PLAN:
[2020-07-20] MEDS: MIDAZOLAM IN 0.9 % SOD.CHLORID 100 MG/100 ML PLAST..BAG IVPB SCH (13:08)
[2020-07-20] MEDS ORDERED: PIPERACILLIN/TAZOBACTAM 3.375 GM VIAL IVPB ONE ×2 (13:24→17:22)
[2020-07-20] MEDS ORDERED: DEXTROSE 5%-WATER - 50 ML IVPB ONE ×2 (13:25→17:22)
[2020-07-20] MEDS: PIPERACILLIN/TAZOB 3.375 GM 3.375 GM in DEXTROSE 5%-WATER - 50 ML IVPB SCH ×2 (13:26→17:23)
--- NOTE | 2020-07-20 14:12 | PN ---
Progress Note, Physician History of Present Illness: Pt seen and examined at bedside. She remains in the ICU intubated. - Current Medication List Current Medications: Active Medications Amino Acids (Prosource No Carb Liquid Pkt) 30 ml PO DAILY RAUL Last Admin: 07/20/20 09:35 Dose: 30 ml Documented by: Banana Based Medical Food (Banatrol Plus Powder Packet) 1 packet GT TID RAUL Last Admin: 07/20/20 13:32 Dose: 1 packet Documented by: Dextrose (D50w (Vial) -) 12.5 gm IVPUSH PRN PRN PRN Reason: HYPOGLYCEMIA Last Admin: 07/08/20 07:38 Dose: 12.5 gm Documented by: Folic Acid (Folic Acid -) 1 mg NGT DAILY RAUL Last Admin: 07/20/20 09:35 Dose: 1 mg Documented by: Heparin Sodium (Porcine) (Heparin -) 5,000 unit SQ BID RAUL Vasopressin 40 units/ Sodium (Chloride) 100 mls @ 5 mls/hr IVPB ASDIR RAUL; Protocol Last Titration: 07/20/20 07:00 Dose: 0 units/hr, 0 mls/hr Documented by: Midazolam HCl (Midazolam 100mg/100ml-0.9%Nacl) 100 mg in 100 mls @ 1 mls/hr IVPB TITR RAUL; Protocol Last Admin: 07/20/20 13:08 Dose: Not Given Documented by: Dexmedetomidine/Sodium Chloride (Precedex 400 Mcg/100 Ml Inject) 400 mcg in 100 mls @ 1.555 mls/hr IVPB TITR RAUL Last Admin: 07/19/20 18:37 Dose: 0.7 mcg/kg/hr, 5.442 mls/hr Documented by: Piperacillin Sod/Tazobactam (Sod 3.375 gm/ Dextrose) 50 mls @ 100 mls/hr IVPB Q8H-IV RAUL; Protocol Last Admin: 07/20/20 13:26 Dose: 100 mls/hr Documented by: Morphine Sulfate (Morphine Sulfate) 1 mg IVPUSH Q6H PRN PRN Reason: PAIN LEVEL 6-10 Multi-Ingredient Ointment (Zinc Oxide) 1 applic TP DAILY RAUL Last Admin: 07/20/20 09:41 Dose: 1 applic Documented by: Multivitamins/Minerals (Certavite-Antioxidant Liquid) 15 ml NGT DAILY RAUL Last Admin: 07/20/20 09:35 Dose: 15 ml Documented by: Nystatin (Mycostatin Ointment -) 1 applic TP DAILY [facility] Last Admin: 07/20/20 09:40 Dose: 1 applic Documented by: Potassium Chloride (Potassium Chloride Oral Liquid) 40 meq PO DAILY [facility] Last Admin: 07/20/20 09:35 Dose: 40 meq Documented by: Potassium Phos/Sodium Phos (Phos-Nak Packet -) 1 packet PO TID [facility] Last Admin: 07/20/20 13:32 Dose: 1 packet Documented by: Thiamine HCl (Vitamin B1 Injection -) 100 mg IVPB DAILY [facility] Last Admin: 07/20/20 09:40 Dose: 100 mg Documented by: - Objective Vital Signs: Vital Signs Temperature 98.4 F 07/20/20 07:59 Pulse Rate 96 H 07/20/20 09:00 Respiratory Rate 27 H 07/20/20 12:04 Blood Pressure 57/47 L 07/20/20 09:00 O2 Sat by Pulse Oximetry (%) 99 07/20/20 12:04 Constitutional: Yes: Calm Eyes: Yes: Conjunctiva Clear HENT: Yes: Atraumatic Neck: Yes: Supple Cardiovascular: Yes: S1, S2 Respiratory: Yes: CTA Bilaterally Gastrointestinal: Yes: Normal Bowel Sounds, Soft Genitourinary: Yes: WNL Musculoskeletal: Yes: WNL Edema: No Neurological: Yes: Oriented Psychiatric: Yes: Oriented Labs: CBC, BMP 07/20/20 06:00 07/20/20 06:00 INR, PTT INR 2.44 (0.83-1.09) H 07/20/20 06:00 Problem List - Problems (1) Hypoglycemia Code(s): E16.2 - HYPOGLYCEMIA, UNSPECIFIED (2) Sepsis Code(s): A41.9 - SEPSIS, UNSPECIFIED ORGANISM Qualifiers: Sepsis type: sepsis due to unspecified organism Sepsis acute organ dysfunction status: unspecified Qualified Code(s): A41.9 - Sepsis, unspecified organism (3) Hypoalbuminemia Code(s): E88.09 - OTH DISORDERS OF PLASMA-PROTEIN METABOLISM, NEC (4) Hyponatremia Code(s): E87.1 - HYPO-OSMOLALITY AND HYPONATREMIA Assessment/Plan Current Medications Generic Name Dose Route Start Last Admin Trade Name Freq PRN Reason Stop Dose Admin Amino Acids 30 ml 07/19/20 10:00 07/20/20 09:35 Prosource No Carb Liquid Pkt PO 30 ml DAILY RAUL Administration Banana Based Medical Food 1 packet 07/10/20 22:00 07/20/20 13:32 Banatrol Plus Powder Packet GT 1 packet TID RAUL Administration Dextrose 12.5 gm 07/08/20 07:08 07/08/20 07:38 D50w (Vial) - IVPUSH 12.5 gm PRN PRN Administration HYPOGLYCEMIA Folic Acid 1 mg 07/06/20 10:00 07/20/20 09:35 Folic Acid - NGT 1 mg DAILY RAUL Administration Heparin Sodium (Porcine) 5,000 unit 07/20/20 10:00 Heparin - SQ BID RAUL Vasopressin 40 units/ Sodium 100 mls @ 5 mls/hr 07/08/20 07:00 07/20/20 07:00 Chloride IVPB 0 units/hr ASDIR RAUL 0 mls/hr Titration Protocol 2 UNITS/HR Midazolam HCl 100 mg in 100 mls @ 1 mls/hr 07/15/20 08:15 07/20/20 13:08 Midazolam 100mg/100ml-0.9%Nacl IVPB Not Given TITR RAUL Protocol 1 MG/HR Dexmedetomidine/Sodium Chloride 400 mcg in 100 mls @ 1.555 mls/hr 07/16/20 15:30 07/19/20 18:37 Precedex 400 Mcg/100 Ml Inject IVPB 0.7 mcg/kg/hr TITR RAUL 5.442 mls/hr Administration 0.2 MCG/KG/HR Piperacillin Sod/Tazobactam 50 mls @ 100 mls/hr 07/20/20 13:30 07/20/20 13:26 Sod 3.375 gm/ Dextrose IVPB 100 mls/hr Q8H-IV RAUL Administration Protocol Morphine Sulfate 1 mg 07/14/20 08:24 Morphine Sulfate IVPUSH Q6H PRN PAIN LEVEL 6-10 Multi-Ingredient Ointment 1 applic 07/19/20 13:30 07/20/20 09:41 Zinc Oxide TP 1 applic DAILY RAUL Administration Multivitamins/Minerals 15 ml 07/06/20 11:45 07/20/20 09:35 Certavite-Antioxidant Liquid NGT 15 ml DAILY RAUL Administration Nystatin 1 applic 07/19/20 13:45 07/20/20 09:40 Mycostatin Ointment - TP 1 applic DAILY RAUL Administration Potassium Chloride 40 meq 07/17/20 12:30 07/20/20 09:35 Potassium Chloride Oral Liquid PO 40 meq DAILY RAUL Administration Potassium Phos/Sodium Phos 1 packet 07/09/20 14:00 07/20/20 13:32 Phos-Nak Packet - PO 1 packet TID RAUL Administration Thiamine HCl 100 mg 07/11/20 12:45 07/20/20 09:40 Vitamin B1 Injection - IVPB 100 mg DAILY RAUL Administration Impression 1. azotemia 2. hyponatremia 3. hyperkalemia 4. hypotension 5. sepsis 6. sbo 7. uti 8. liver cirrhosis 9. hypoalbuminemia 10. etoh abuse 11. substance abuse 12. psoriasis 13. acute resp failure 14. malnutrition Plan - replace lytes - cont feeds - vent support - cont feeds
--- NOTE | 2020-07-20 15:53 | PN ---
Progress Note, Physician History of Present Illness: INTUBATED - Current Medication List Current Medications: Active Medications Amino Acids (Prosource No Carb Liquid Pkt) 30 ml PO DAILY RAUL Last Admin: 07/20/20 09:35 Dose: 30 ml Documented by: Banana Based Medical Food (Banatrol Plus Powder Packet) 1 packet GT TID RAUL Last Admin: 07/20/20 13:32 Dose: 1 packet Documented by: Dextrose (D50w (Vial) -) 12.5 gm IVPUSH PRN PRN PRN Reason: HYPOGLYCEMIA Last Admin: 07/08/20 07:38 Dose: 12.5 gm Documented by: Folic Acid (Folic Acid -) 1 mg NGT DAILY RAUL Last Admin: 07/20/20 09:35 Dose: 1 mg Documented by: Heparin Sodium (Porcine) (Heparin -) 5,000 unit SQ BID [facility] Vasopressin 40 units/ Sodium (Chloride) 100 mls @ 5 mls/hr IVPB ASDIR RAUL; Protocol Last Titration: 07/20/20 07:00 Dose: 0 units/hr, 0 mls/hr Documented by: Midazolam HCl (Midazolam 100mg/100ml-0.9%Nacl) 100 mg in 100 mls @ 1 mls/hr IVPB TITR RAUL; Protocol Last Admin: 07/20/20 13:08 Dose: Not Given Documented by: Dexmedetomidine/Sodium Chloride (Precedex 400 Mcg/100 Ml Inject) 400 mcg in 100 mls @ 1.555 mls/hr IVPB TITR RAUL Last Admin: 07/19/20 18:37 Dose: 0.7 mcg/kg/hr, 5.442 mls/hr Documented by: Piperacillin Sod/Tazobactam (Sod 3.375 gm/ Dextrose) 50 mls @ 100 mls/hr IVPB Q8H-IV RAUL; Protocol Last Admin: 07/20/20 13:26 Dose: 100 mls/hr Documented by: Morphine Sulfate (Morphine Sulfate) 1 mg IVPUSH Q6H PRN PRN Reason: PAIN LEVEL 6-10 Multi-Ingredient Ointment (Zinc Oxide) 1 applic TP DAILY [facility] Last Admin: 07/20/20 09:41 Dose: 1 applic Documented by: Multivitamins/Minerals (Certavite-Antioxidant Liquid) 15 ml NGT DAILY RAUL Last Admin: 07/20/20 09:35 Dose: 15 ml Documented by: Nystatin (Mycostatin Ointment -) 1 applic TP DAILY [facility] Last Admin: 07/20/20 09:40 Dose: 1 applic Documented by: Potassium Chloride (Potassium Chloride Oral Liquid) 40 meq PO DAILY [facility] Last Admin: 07/20/20 09:35 Dose: 40 meq Documented by: Potassium Phos/Sodium Phos (Phos-Nak Packet -) 1 packet PO TID [facility] Last Admin: 07/20/20 13:32 Dose: 1 packet Documented by: Thiamine HCl (Vitamin B1 Injection -) 100 mg IVPB DAILY [facility] Last Admin: 07/20/20 09:40 Dose: 100 mg Documented by: - Objective Vital Signs: Vital Signs Temperature 98.4 F 07/20/20 07:59 Pulse Rate 96 H 07/20/20 09:00 Respiratory Rate 27 H 07/20/20 12:04 Blood Pressure 57/47 L 07/20/20 09:00 O2 Sat by Pulse Oximetry (%) 99 07/20/20 12:04 Constitutional: Yes: Calm, Cachectic HENT: Yes: Atraumatic Neck: Yes: Supple Cardiovascular: Yes: Regular Rate and Rhythm Respiratory: Yes: Rhonchi Gastrointestinal: Yes: Normal Bowel Sounds Extremities: Yes: WNL Neurological: Yes: Alert Labs: CBC, BMP 07/20/20 06:00 07/20/20 06:00 INR, PTT INR 2.44 (0.83-1.09) H 07/20/20 06:00 Fibrinogen 320.0 mg/dL (238-498) 07/20/20 13:00 Problem List - Problems (1) At risk for electrolyte imbalance Assessment/Plan: MONITOR AND REPLACE Code(s): Z91.89 - [facility] PERSONAL RISK FACTORS, NOT ELSEWHERE CLASSIFIED (2) SBO (small bowel obstruction) Assessment/Plan: ON TUBE FEEDS NOW Code(s): K56.609 - UNSP INTESTNL OBST, UNSP TO PARTIAL VERSUS COMPLETE OBST (3) Sepsis Assessment/Plan: ON IV ABX CXS NOTED wbc wnl Code(s): A41.9 - SEPSIS, UNSPECIFIED ORGANISM Qualifiers: Sepsis type: sepsis due to unspecified organism Sepsis acute organ dysfunction status: unspecified Qualified Code(s): A41.9 - Sepsis, unspecified organism (4) Alcoholic liver damage Code(s): K70.9 - ALCOHOLIC LIVER DISEASE, UNSPECIFIED (5) Hypoalbuminemia Code(s): E88.09 - OTH DISORDERS OF PLASMA-PROTEIN METABOLISM, NEC (6) Hyponatremia Code(s): E87.1 - HYPO-OSMOLALITY AND HYPONATREMIA (7) Liver cirrhosis, alcoholic Code(s): K70.30 - ALCOHOLIC CIRRHOSIS OF LIVER WITHOUT ASCITES (8) Ischemic hepatitis Code(s): K75.9 - INFLAMMATORY LIVER DISEASE, UNSPECIFIED (9) Respiratory failure Assessment/Plan: INTUBATED Code(s): J96.90 - RESPIRATORY FAILURE, UNSP, UNSP W HYPOXIA OR HYPERCAPNIA (10) UTI (urinary tract infection) Assessment/Plan: SEPSIS..RESOLVING ON IV ABX URINE STILL TURBID Code(s): N39.0 - URINARY TRACT INFECTION, SITE NOT SPECIFIED Qualifiers: Urinary tract infection type: site unspecified Hematuria presence: with hematuria Qualified Code(s): N39.0 - Urinary tract infection, site not specified; R31.9 - Hematuria, unspecified (11) Elevated LFTs Assessment/Plan: IMPROVING MONITOR Code(s): R79.89 - OTHER SPECIFIED ABNORMAL FINDINGS OF BLOOD CHEMISTRY (12) Hypothermia Assessment/Plan: stable PRN ANAHI EDERER Code(s): T68.XXXA - HYPOTHERMIA, INITIAL ENCOUNTER Assessment/Plan COVERING FOR DR FOREMAN TODAY ICU CC TIME 35 MIN DIAGNOSES 1. azotemia 2. hyponatremia 3. hyperkalemia 4. hypotension 5. sepsis 6. sbo 7. uti 8. liver cirrhosis 9. hypoalbuminemia 10. etoh abuse 11. substance abuse 12. psoriasis 13. acute resp failure 14. malnutrition
[2020-07-20] MEDS: DEXMEDETOMIDINE IN 0.9 % NACL 400 MCG/100 ML VIAL IVPB SCH (17:22)
[2020-07-20 19:55] LABS: EPI CELLS >36 /uL (0-25.1); HYALINE CASTS 16 /uL (0-3.1); URINE APPEARANCE TURBID; URINE BACTERIA >9,000 /uL (0-1359); URINE BILIRUBIN 2+ (NEGATIVE); URINE COLOR DK YELLOW; URINE GLUCOSE (UA) NEGATIVE (NEGATIVE); URINE KETONE NEGATIVE (NEGATIVE); URINE LEUK ESTERASE 2+ (NEGATIVE); URINE NITRITE NEGATIVE (NEGATIVE); URINE PROTEIN 1+ (NEGATIVE); URINE UROBILINOGEN 0.2 mg/dL (0.2-1.0); URINE WBC 4719 /uL (0-25.8)
[2020-07-20 20:37] LABS: URINE RBC 291.4 /uL (0-23.9); YEAST NEGATIVE (NEGATIVE)
[2020-07-21] MEDS: DEXMEDETOMIDINE IN 0.9 % NACL 400 MCG/100 ML VIAL IVPB SCH (00:08)
[2020-07-21] MEDS ORDERED: DEXTROSE 5%-WATER - 50 ML IVPB ONE ×3 (02:00→17:27)
[2020-07-21] MEDS ORDERED: PIPERACILLIN/TAZOBACTAM 3.375 GM VIAL IVPB ONE ×3 (02:00→17:27)
[2020-07-21] MEDS: PIPERACILLIN/TAZOB 3.375 GM 3.375 GM in DEXTROSE 5%-WATER - 50 ML IVPB SCH ×3 (02:00→17:30)
[2020-07-21] MEDS: BANATROL PLUS POWDER PACKET GT SCH ×3 (05:36→22:00)
[2020-07-21] MEDS: NAPH,MB-DB/K PH,MBDB POWDER PACKET PO SCH ×3 (05:36→22:00)
[2020-07-21 06:45] LABS: HEMOGLOBIN 8.1 GM/dL (10.7-15.3); MCH 28.9 pg (25.7-33.7); MCHC 33.7 g/dl (32.0-36.0); MEAN CELL VOLUME 85.8 fl (80-96); MEAN PLT VOLUME 8.5 fl (7.5-11.1); PLATELET COUNT 86 K/MM3 (134-434); WHITE BLOOD COUNT 4.4 K/mm3 (4.0-10.0)
[2020-07-21 07:00] LABS: INR 1.46 (0.83-1.09); PROTHROMBIN TIME (PATIENT) 17.3 SEC (9.7-13.0)
[2020-07-21 07:03] LABS: ACTIVATED PTT 31.6 SECONDS (25.2-36.5)
[2020-07-21 07:13] LABS: ALBUMIN 1.4 g/dl (3.4-5.0); BILIRUBIN,TOTAL 0.6 mg/dL (0.2-1); BLOOD UREA NITROGEN 15.3 mg/dL (7-18); CREATININE 0.2 mg/dL (0.55-1.3); MAGNESIUM 1.7 mg/dL (1.8-2.4); PHOSPHOROUS 1.8 mg/dL (2.5-4.9); POTASSIUM 3.6 mmol/L (3.5-5.1); TOT PROT 4.4 g/dl (6.4-8.2)
[2020-07-21 07:19] LABS: CALCIUM 6.3 mg/dL (8.5-10.1)
--- NOTE | 2020-07-21 07:52 | PN ---
Progress Note (short form) - Note Progress Note: SUBJECTIVE: Patient seen and examined in the ICU. -remains intubated -no fecal material in UA, CT with Rectal contrast not pursued Apparently Continuing care has been unable to reach her mother to discuss GOC. OBJECTIVE: Vital Signs Temp 99.1 F 07/21/20 05:00 Pulse 109 H 07/21/20 05:00 Resp 17 07/21/20 05:00 BP 93/76 07/21/20 05:00 Pulse Ox 95 07/21/20 05:00 Intake & Output 07/20/20 07/20/20 07/21/20 11:59 23:59 11:59 Intake Total 801.0 1004.4 1242 Output Total 200 1350 680 Balance 601.0 -345.6 562 Weight 28.6 kg 28.7 kg Intake: IV 86.0 102.4 62 PRECEDEX 400 MCG/100 ML 60.5 59.4 62 INJECT 400 mcg In 100 ml @ 0.2 MCG/KG/HR 1.555 mls /hr IVPB TITR [facility] Rx#: [id number] Pitressin - 40 Units In 25.5 43 Normal Saline - 98 ml @ 2 UNITS/HR 5 mls/hr IVPB ASDIR [facility]UL Rx#:[id number] IVPB 250 100 Tube Feeding 495 385 540 Packed Cells 300 Tube Irrigant (Tube 220 267 240 Feeding Water) Output: Urine 200 350 480 Uribe 200 350 480 Fecal Drainage 1000 200 Other: Voiding Method Indwelling Catheter Indwelling Catheter Indwelling Catheter Bowel Movement Yes Yes Yes # Bowel Movements 1 Weight Measurement Method [facility] in [facility] Active Medications Amino Acids (Prosource No Carb Liquid Pkt) 30 ml PO DAILY [facility] Last Admin: 07/20/20 09:35 Dose: 30 ml Documented by: Banana Based Medical Food (Banatrol Plus Powder Packet) 1 packet GT TID [facility] Last Admin: 07/21/20 05:36 Dose: 1 packet Documented by: Dextrose (D50w (Vial) -) 12.5 gm IVPUSH PRN PRN PRN Reason: HYPOGLYCEMIA Last Admin: 07/08/20 07:38 Dose: 12.5 gm Documented by: Folic Acid (Folic Acid -) 1 mg NGT DAILY [facility] Last Admin: 07/20/20 09:35 Dose: 1 mg Documented by: Heparin Sodium (Porcine) (Heparin -) 5,000 unit SQ BID [facility] Vasopressin 40 units/ Sodium (Chloride) 100 mls @ 5 mls/hr IVPB ASDIR RAUL; Protocol Last Titration: 07/20/20 18:14 Dose: 2 units/hr, 5 mls/hr Documented by: Midazolam HCl (Midazolam 100mg/100ml-0.9%Nacl) 100 mg in 100 mls @ 1 mls/hr IVPB TITR [facility]UL; Protocol Last Admin: 07/20/20 13:08 Dose: Not Given Documented by: Dexmedetomidine/Sodium Chloride (Precedex 400 Mcg/100 Ml Inject) 400 mcg in 100 mls @ 1.555 mls/hr IVPB TITR [facility] Last Admin: 07/21/20 00:08 Dose: 0.7 mcg/kg/hr, 5.442 mls/hr Documented by: Piperacillin Sod/Tazobactam (Sod 3.375 gm/ Dextrose) 50 mls @ 100 mls/hr IVPB Q8H-IV RAUL; Protocol Last Admin: 07/21/20 02:00 Dose: 100 mls/hr Documented by: Morphine Sulfate (Morphine Sulfate) 1 mg IVPUSH Q6H PRN PRN Reason: PAIN LEVEL 6-10 Multi-Ingredient Ointment (Zinc Oxide) 1 applic TP DAILY [facility] Last Admin: 07/20/20 09:41 Dose: 1 applic Documented by: Multivitamins/Minerals (Certavite-Antioxidant Liquid) 15 ml NGT DAILY [facility] Last Admin: 07/20/20 09:35 Dose: 15 ml Documented by: Nystatin (Mycostatin Ointment -) 1 applic TP DAILY [facility] Last Admin: 07/20/20 09:40 Dose: 1 applic Documented by: Potassium Chloride (Potassium Chloride Oral Liquid) 40 meq PO DAILY [facility] Last Admin: 07/20/20 09:35 Dose: 40 meq Documented by: Potassium Phos/Sodium Phos (Phos-Nak Packet -) 1 packet PO TID [facility] Last Admin: 07/21/20 05:36 Dose: 1 packet Documented by: Thiamine HCl (Vitamin B1 Injection -) 100 mg IVPB DAILY [facility] Last Admin: 07/20/20 09:40 Dose: 100 mg Documented by: Gen: intubated, sedated, cachectic Heart: RRR Lung: scattered rhonchi Abd: soft, nontender, +ascites, hypoactive bs Ext: no edema CBC, BMP 09/19/20 06:00 07/21/20 06:00 ASSESSMENT AND PLAN: Acute Hypoxic Respiratory Failure Pneumonia likely Aspiration UTI Sepsis Hyponatremia Small Bowel Obstruction Alcohol/Heroin Abuse Anemia/Thrombocytopenia Failure to Thrive Severe Protein Calorie Malnutrition Refeeding Syndrome (?) Fistula - monitor urine output, creatinine - replete lytes - ABX per ID , remains on zosyn - titrate pressors to maintain MAP >65 - titrate FiO2 to keep SpO2 >90% - spontaneous breathing trials as tolerated - titrate enteral feeds to goal - DVT/GI prophylaxis - continue ICU monitoring - may need tracheostomy due to severe malnutrition and deconditioning : will D/W mother as soon as she returns our calls Questa ACNP
[2020-07-21] MEDS: VASOPRESSIN 40 UNITS in SODIUM CHLORIDE 98 ML IVPB SCH (09:45)
[2020-07-21] MEDS: MIDAZOLAM IN 0.9 % SOD.CHLORID 100 MG/100 ML PLAST..BAG IVPB SCH (09:45)
[2020-07-21] MEDS: FOLIC ACID 1 MG TABLET (FP) NGT SCH (09:54)
[2020-07-21] MEDS: POTASSIUM CHLORIDE ORAL LIQUID 20 MEQ/15 ML PO SCH (09:54)
[2020-07-21] MEDS: AMINO ACIDS/PROTEIN HYDROLYS 30 ML LIQUID.PKT PO SCH (09:55)
[2020-07-21] MEDS: ZINC OXIDE 20% TOPICAL OINTMENT 30 GM TUBE TP SCH (10:01)
[2020-07-21] MEDS: NYSTATIN 100000 UNIT/GM TOPICAL OINTMENT 15 GM TUBE TP SCH (10:01)
[2020-07-21] MEDS ORDERED: PT OWN MED DRAWER 7, Y5N ONE (10:34)
[2020-07-21] MEDS: MULTIVIT-MINERALS ORAL LIQUID NGT SCH (10:35)
[2020-07-21] MEDS: THIAMINE HCL 200 MG/2 ML VIAL IVPB SCH (10:36)
[2020-07-21] MEDS: MORPHINE SULFATE 2 MG/ML VIAL IVPUSH PRN (10:51)
--- NOTE | 2020-07-21 14:25 | PN ---
Progress Note, Physician History of Present Illness: stable improving much better awake,alert off of pressors afebrile - Current Medication List Current Medications: Active Medications Amino Acids (Prosource No Carb Liquid Pkt) 30 ml PO DAILY [facility] Last Admin: 07/21/20 09:55 Dose: 30 ml Documented by: Banana Based Medical Food (Banatrol Plus Powder Packet) 1 packet GT TID [facility] Last Admin: 07/21/20 13:33 Dose: 1 packet Documented by: Dextrose (D50w (Vial) -) 12.5 gm IVPUSH PRN PRN PRN Reason: HYPOGLYCEMIA Last Admin: 07/08/20 07:38 Dose: 12.5 gm Documented by: Folic Acid (Folic Acid -) 1 mg NGT DAILY [facility] Last Admin: 07/21/20 09:54 Dose: 1 mg Documented by: Heparin Sodium (Porcine) (Heparin -) 5,000 unit SQ BID [facility] Vasopressin 40 units/ Sodium (Chloride) 100 mls @ 5 mls/hr IVPB ASDIR RAUL; Protocol Last Admin: 07/21/20 09:45 Dose: Not Given Documented by: Midazolam HCl (Midazolam 100mg/100ml-0.9%Nacl) 100 mg in 100 mls @ 1 mls/hr IVPB TITR [facility]UL; Protocol Last Admin: 07/21/20 09:45 Dose: Not Given Documented by: Dexmedetomidine/Sodium Chloride (Precedex 400 Mcg/100 Ml Inject) 400 mcg in 100 mls @ 1.555 mls/hr IVPB TITR [facility] Last Admin: 07/21/20 00:08 Dose: 0.7 mcg/kg/hr, 5.442 mls/hr Documented by: Piperacillin Sod/Tazobactam (Sod 3.375 gm/ Dextrose) 50 mls @ 100 mls/hr IVPB Q8H-IV RAUL; Protocol Last Admin: 07/21/20 09:55 Dose: 100 mls/hr Documented by: Morphine Sulfate (Morphine Sulfate) 1 mg IVPUSH Q6H PRN PRN Reason: PAIN LEVEL 6-10 Last Admin: 07/21/20 10:51 Dose: 1 mg Documented by: Multi-Ingredient Ointment (Zinc Oxide) 1 applic TP DAILY [facility] Last Admin: 07/21/20 10:01 Dose: 1 applic Documented by: Multivitamins/Minerals (Certavite-Antioxidant Liquid) 15 ml NGT DAILY [facility] Last Admin: 07/21/20 10:35 Dose: 15 ml Documented by: Nystatin (Mycostatin Ointment -) 1 applic TP DAILY [facility] Last Admin: 07/21/20 10:01 Dose: 1 applic Documented by: Potassium Chloride (Potassium Chloride Oral Liquid) 40 meq PO DAILY [facility] Last Admin: 07/21/20 09:54 Dose: 40 meq Documented by: Potassium Phos/Sodium Phos (Phos-Nak Packet -) 1 packet PO TID [facility] Last Admin: 07/21/20 13:33 Dose: 1 packet Documented by: Thiamine HCl (Vitamin B1 Injection -) 100 mg IVPB DAILY [facility] Last Admin: 07/21/20 10:36 Dose: 100 mg Documented by: - Objective Vital Signs: Vital Signs Temperature 97.9 F 07/21/20 12:00 Pulse Rate 127 H 07/21/20 12:00 Respiratory Rate 19 07/21/20 12:00 Blood Pressure 96/48 L 07/21/20 12:00 O2 Sat by Pulse Oximetry (%) 100 07/21/20 12:00 Constitutional: Yes: No Distress, Calm Cardiovascular: Yes: S1, S2 Respiratory: Yes: Intubated, Mechanically Ventilated Gastrointestinal: Yes: Normal Bowel Sounds, Soft, Other (ng tube in place) Musculoskeletal: Yes: WNL Extremities: Yes: WNL Neurological: Yes: Alert Psychiatric: Yes: Alert Labs: CBC, BMP 07/21/20 06:00 07/21/20 06:00 INR, PTT INR 1.46 (0.83-1.09) H 07/21/20 06:00 Fibrinogen 344.0 mg/dL (238-498) 07/21/20 06:00 - ....Imaging Chest X-ray: Report Reviewed, Image Reviewed Assessment/Plan Pneumonia likely Aspiration UTI Sepsis Hyponatremia SBO resolving Alcohol/Heroin Abuse Anemia Failure to Thrive Severe Protein Calorie Malnutrition uti vesico intestinal fistula plan continue abx monitor closely rest as per icu improving cc 38 min
--- NOTE | 2020-07-21 17:03 | PN.HO ---
Progress Note (short form) - Note Progress Note: Hx taken mostly from EMR as patient is currently intubated. She is able to write answer in her board. Asking about going home. 35 y/o lady with PMHx of polysubstance use, Asthma, Cirrhosis initially presented to ER on 07/01 for AMS found to be hypoglycemic. On arrival to ER she was found to be in septic shock and was intubated. Patient also had severe transaminitis concerning for ischemia from hypotesion which has since normalized. She was started on broad spectrum antibiotics for UTI and PNA . She was extubated on 07/18 but was reintubated and prognosis is guarded. Hematology has been consulted for low hb and elevated INR. On review of her labs; patient's baseline Hb runs 8-9 (currently 7.1) plts were 200k in june (now 59k) and INR was 1.8 in June, now 2.4. Iron studies with low iron and iron sat of 26. B12 elevated to 2423, folate WNL. Of note, patient has severe malnutrition as she weighs 63lbs and albumin is less than 2. 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) Gastrointestinal: Yes: Other (GERD) Hepatobiliary: Yes: Cirrhosis, Other (Elevated LFT's) ...LMP: 02/01/20 ...: No Psych: Yes: Addictions - Alcohol/Substance Use Hx Alcohol Use: No - Smoking History Smoking history: Current every day smoker Have you smoked in the past 12 months: Yes Aproximately how many cigarettes per day: 3 - Social History Usual Living Arrangement: With Parent (clean and neat) Home Medications - Allergies Allergies/Adverse Reactions: Allergies Allergy/AdvReac Type Severity Reaction Status Date / Time No Known Allergies Allergy Verified 07/01/20 14:36 - Home Medications Home Medications: Ambulatory Orders Sulfamethoxazole/Trimethoprim [Bactrim Ds -] 1 tab PO BID #14 tablet 06/26/20 Family Medical History Family History: Unable to Obtain Review of Systems Unable to obtain ROS, reason: Intubated and Sedated Physical Exam Last Vital Signs Temp Pulse Resp BP Pulse Ox 97.9 F 127 H 32 H 96/48 L 100 07/21/20 12:00 07/21/20 12:00 07/21/20 16:13 07/21/20 12:00 07/21/20 16:13 Constitutional: Yes: Other (severely cachectic, awake and sedated on precedex; able to answer yes or no questions, lethargic) Eyes: Yes: Conjunctiva Clear HENT: Yes: Atraumatic, Normocephalic Cardiovascular: Yes: Tachycardia, Other Respiratory: Yes: Other (anterior lung aguirre with mechanical breath sounds) Gastrointestinal: Yes: Soft Extremities: Yes: Other (no ll edema) Integumentary: Yes: Pressure Ulcer Neurological: Yes: Alert 07/21/20 06:00 07/21/20 06:00 Assessment/Plan 35 y/o lady with hx of polysubstance abuse, 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 If normal/increased most consistent with Liver failure) and also factor V and factor VII -if Fibrinogen is <150, can supplement with Cryoprecipitate -if above labs are consistent with DIC; can supplement FFP as needed for supportive care Anemia, Thrombocytopenia -multifactorial;most likely 2/2 bone marrow suppression due to acute illness -iron 23, iron sat 26, B12 2423, folate WNL -would transfuse for hb<7, plts <10k unless actively bleeding -follow up above labs
--- NOTE | 2020-07-21 22:24 | PN ---
Progress Note, Physician - Current Medication List Current Medications: Active Medications Amino Acids (Prosource No Carb Liquid Pkt) 30 ml PO DAILY [facility] Last Admin: 07/21/20 09:55 Dose: 30 ml Documented by: Banana Based Medical Food (Banatrol Plus Powder Packet) 1 packet GT TID [facility] Last Admin: 07/21/20 13:33 Dose: 1 packet Documented by: Dextrose (D50w (Vial) -) 12.5 gm IVPUSH PRN PRN PRN Reason: HYPOGLYCEMIA Last Admin: 07/08/20 07:38 Dose: 12.5 gm Documented by: Folic Acid (Folic Acid -) 1 mg NGT DAILY [facility] Last Admin: 07/21/20 09:54 Dose: 1 mg Documented by: Heparin Sodium (Porcine) (Heparin -) 5,000 unit SQ BID [facility] Vasopressin 40 units/ Sodium (Chloride) 100 mls @ 5 mls/hr IVPB ASDIR RAUL; Protocol Last Admin: 07/21/20 09:45 Dose: Not Given Documented by: Midazolam HCl (Midazolam 100mg/100ml-0.9%Nacl) 100 mg in 100 mls @ 1 mls/hr IVPB TITR RAUL; Protocol Last Admin: 07/21/20 09:45 Dose: Not Given Documented by: Dexmedetomidine/Sodium Chloride (Precedex 400 Mcg/100 Ml Inject) 400 mcg in 100 mls @ 1.555 mls/hr IVPB TITR [facility] Last Admin: 07/21/20 00:08 Dose: 0.7 mcg/kg/hr, 5.442 mls/hr Documented by: Piperacillin Sod/Tazobactam (Sod 3.375 gm/ Dextrose) 50 mls @ 100 mls/hr IVPB Q8H-IV [facility]; Protocol Last Admin: 07/21/20 17:30 Dose: 100 mls/hr Documented by: Morphine Sulfate (Morphine Sulfate) 1 mg IVPUSH Q6H PRN PRN Reason: PAIN LEVEL 6-10 Last Admin: 07/21/20 10:51 Dose: 1 mg Documented by: Multi-Ingredient Ointment (Zinc Oxide) 1 applic TP DAILY [facility] Last Admin: 07/21/20 10:01 Dose: 1 applic Documented by: Multivitamins/Minerals (Certavite-Antioxidant Liquid) 15 ml NGT DAILY [facility] Last Admin: 07/21/20 10:35 Dose: 15 ml Documented by: Nystatin (Mycostatin Ointment -) 1 applic TP DAILY [facility] Last Admin: 07/21/20 10:01 Dose: 1 applic Documented by: Potassium Chloride (Potassium Chloride Oral Liquid) 40 meq PO DAILY [facility] Last Admin: 07/21/20 09:54 Dose: 40 meq Documented by: Potassium Phos/Sodium Phos (Phos-Nak Packet -) 1 packet PO TID [facility] Last Admin: 07/21/20 13:33 Dose: 1 packet Documented by: Thiamine HCl (Vitamin B1 Injection -) 100 mg IVPB DAILY [facility] Last Admin: 07/21/20 10:36 Dose: 100 mg Documented by: - Objective Vital Signs: Vital Signs Temperature 98.1 F 07/21/20 20:00 Pulse Rate 119 H 07/21/20 20:15 Respiratory Rate 24 H 07/21/20 21:00 Blood Pressure 191/124 H 07/21/20 20:00 O2 Sat by Pulse Oximetry (%) 100 07/21/20 21:00 Labs: CBC, BMP 07/21/20 06:00 07/21/20 06:00 INR, PTT INR 1.46 (0.83-1.09) H 07/21/20 06:00 Fibrinogen 344.0 mg/dL (238-498) 07/21/20 06:00 Problem List - Problems (1) Respiratory failure Code(s): J96.90 - RESPIRATORY FAILURE, UNSP, UNSP W HYPOXIA OR HYPERCAPNIA (2) Sepsis Code(s): A41.9 - SEPSIS, UNSPECIFIED ORGANISM Qualifiers: Sepsis type: sepsis due to unspecified organism Sepsis acute organ dysfunction status: unspecified Qualified Code(s): A41.9 - Sepsis, unspecified organism (3) Anemia Code(s): D64.9 - ANEMIA, UNSPECIFIED (4) At risk for electrolyte imbalance Code(s): Z91.89 - OTH PERSONAL RISK FACTORS, NOT ELSEWHERE CLASSIFIED (5) SBO (small bowel obstruction) Code(s): K56.609 - UNSP INTESTNL OBST, UNSP TO PARTIAL VERSUS COMPLETE OBST (6) Liver cirrhosis, alcoholic Code(s): K70.30 - ALCOHOLIC CIRRHOSIS OF LIVER WITHOUT ASCITES (7) Hypoalbuminemia Code(s): E88.09 - OTH DISORDERS OF PLASMA-PROTEIN METABOLISM, NEC (8) Substance abuse Code(s): F19.10 - OTHER PSYCHOACTIVE SUBSTANCE ABUSE, UNCOMPLICATED (9) Cachexia Code(s): R64 - CACHEXIA (10) Severe malnutrition Code(s): E43 - UNSPECIFIED SEVERE PROTEIN-CALORIE MALNUTRITION
[2020-07-22] MEDS: PIPERACILLIN/TAZOB 3.375 GM 3.375 GM in DEXTROSE 5%-WATER - 50 ML IVPB SCH ×3 (02:00→18:02)
[2020-07-22] MEDS ORDERED: DEXTROSE 5%-WATER - 50 ML IVPB ONE ×3 (02:59→17:58)
[2020-07-22] MEDS ORDERED: PIPERACILLIN/TAZOBACTAM 3.375 GM VIAL IVPB ONE ×3 (02:59→17:58)
[2020-07-22] MEDS: BANATROL PLUS POWDER PACKET GT SCH ×3 (05:28→23:01)
[2020-07-22] MEDS: NAPH,MB-DB/K PH,MBDB POWDER PACKET PO SCH ×3 (05:28→23:01)
[2020-07-22] MEDS: MORPHINE SULFATE 2 MG/ML VIAL IVPUSH PRN ×2 (05:39→14:49)
--- NOTE | 2020-07-22 08:52 | PN ---
Progress Note, Physician History of Present Illness: more awake continues to be intubated still on pressors failure to thrive - Current Medication List Current Medications: Active Medications Amino Acids (Prosource No Carb Liquid Pkt) 30 ml PO DAILY [facility] Last Admin: 07/21/20 09:55 Dose: 30 ml Documented by: Banana Based Medical Food (Banatrol Plus Powder Packet) 1 packet GT TID [facility] Last Admin: 07/22/20 05:28 Dose: 1 packet Documented by: Dextrose (D50w (Vial) -) 12.5 gm IVPUSH PRN PRN PRN Reason: HYPOGLYCEMIA Last Admin: 07/08/20 07:38 Dose: 12.5 gm Documented by: Folic Acid (Folic Acid -) 1 mg NGT DAILY [facility] Last Admin: 07/21/20 09:54 Dose: 1 mg Documented by: Heparin Sodium (Porcine) (Heparin -) 5,000 unit SQ BID [facility] Vasopressin 40 units/ Sodium (Chloride) 100 mls @ 5 mls/hr IVPB ASDIR RAUL; Protocol Last Admin: 07/21/20 09:45 Dose: Not Given Documented by: Dexmedetomidine/Sodium Chloride (Precedex 400 Mcg/100 Ml Inject) 400 mcg in 100 mls @ 1.555 mls/hr IVPB TITR [facility] Last Admin: 07/21/20 00:08 Dose: 0.7 mcg/kg/hr, 5.442 mls/hr Documented by: Piperacillin Sod/Tazobactam (Sod 3.375 gm/ Dextrose) 50 mls @ 100 mls/hr IVPB Q8H-IV [facility]; Protocol Last Admin: 07/22/20 02:00 Dose: 100 mls/hr Documented by: Morphine Sulfate (Morphine Sulfate) 1 mg IVPUSH Q6H PRN PRN Reason: PAIN LEVEL 6-10 Last Admin: 07/22/20 05:39 Dose: 1 mg Documented by: Multi-Ingredient Ointment (Zinc Oxide) 1 applic TP DAILY [facility] Last Admin: 07/21/20 10:01 Dose: 1 applic Documented by: Multivitamins/Minerals (Certavite-Antioxidant Liquid) 15 ml NGT DAILY [facility] Last Admin: 07/21/20 10:35 Dose: 15 ml Documented by: Nystatin (Mycostatin Ointment -) 1 applic TP DAILY [facility] Last Admin: 07/21/20 10:01 Dose: 1 applic Documented by: Potassium Chloride (Potassium Chloride Oral Liquid) 40 meq PO DAILY [facility] Last Admin: 07/21/20 09:54 Dose: 40 meq Documented by: Potassium Phos/Sodium Phos (Phos-Nak Packet -) 1 packet PO TID [facility] Last Admin: 07/22/20 05:28 Dose: 1 packet Documented by: Thiamine HCl (Vitamin B1 Injection -) 100 mg IVPB DAILY [facility] Last Admin: 07/21/20 10:36 Dose: 100 mg Documented by: - Objective Vital Signs: Vital Signs Temperature 97.9 F 07/22/20 04:00 Pulse Rate 105 H 07/22/20 08:05 Respiratory Rate 35 H 07/22/20 08:22 Blood Pressure 91/62 07/22/20 07:38 O2 Sat by Pulse Oximetry (%) 100 07/22/20 08:22 Constitutional: Yes: Thin, Other (failure to thrive) Cardiovascular: Yes: Tachycardia, S1, S2 Respiratory: Yes: Intubated, Mechanically Ventilated Gastrointestinal: Yes: Normal Bowel Sounds, Soft Genitourinary: Yes: Uribe Present Musculoskeletal: Yes: Other Extremities: Yes: Other Neurological: Yes: Alert, Other Labs: INR, PTT INR 1.46 (0.83-1.09) H 07/21/20 06:00 Fibrinogen 344.0 mg/dL (238-498) 07/21/20 06:00 - ....Imaging Chest X-ray: Report Reviewed, Image Reviewed Assessment/Plan Pneumonia likely Aspiration UTI Sepsis Hyponatremia SBO resolving Alcohol/Heroin Abuse Anemia Failure to Thrive Severe Protein Calorie Malnutrition uti sacral wounds plan continue abx nutrition as per icu vent mgmt repeat cx if needed close watch cc 38 min
[2020-07-22 09:08] LABS: HEMATOCRIT 20.4 % (32.4-45.2); HEMOGLOBIN 7.2 GM/dL (10.7-15.3); MCH 30.2 pg (25.7-33.7); MEAN CELL VOLUME 86.2 fl (80-96); MEAN PLT VOLUME 8.8 fl (7.5-11.1); PLATELET COUNT 72 K/MM3 (134-434); RBC 2.37 M/mm3 (3.60-5.2); WHITE BLOOD COUNT 3.4 K/mm3 (4.0-10.0)
[2020-07-22 09:21] LABS: ALBUMIN 1.2 g/dl (3.4-5.0); BILIRUBIN,DIRECT 0.3 mg/dL (0.0-0.2); BILIRUBIN,TOTAL 0.5 mg/dL (0.2-1); BLOOD UREA NITROGEN 17.2 mg/dL (7-18); CREATININE 0.2 mg/dL (0.55-1.3); MAGNESIUM 1.7 mg/dL (1.8-2.4); PHOSPHOROUS 1.7 mg/dL (2.5-4.9); POTASSIUM 3.9 mmol/L (3.5-5.1)
[2020-07-22] MEDS ORDERED: PT OWN MED DRAWER 7, Y5N ONE (09:29)
[2020-07-22] MEDS: AMINO ACIDS/PROTEIN HYDROLYS 30 ML LIQUID.PKT PO SCH (09:33)
[2020-07-22] MEDS: MULTIVIT-MINERALS ORAL LIQUID NGT SCH (09:33)
[2020-07-22] MEDS: VASOPRESSIN 40 UNITS in SODIUM CHLORIDE 98 ML IVPB SCH (09:33)
[2020-07-22] MEDS: POTASSIUM CHLORIDE ORAL LIQUID 20 MEQ/15 ML PO SCH (09:33)
[2020-07-22] MEDS: THIAMINE HCL 200 MG/2 ML VIAL IVPB SCH (09:33)
[2020-07-22] MEDS: ZINC OXIDE 20% TOPICAL OINTMENT 30 GM TUBE TP SCH (09:34)
[2020-07-22] MEDS: FOLIC ACID 1 MG TABLET (FP) NGT SCH (09:34)
--- NOTE | 2020-07-22 10:59 | PN ---
Progress Note (short form) - Note Progress Note: PULM/CCM SUBJECTIVE: Patient seen and examined in the ICU. Patient awake, alert, following commands, able to use board for writing -remains intubated, vent: AC 14/350/60%-->40/+8-->5, tolerating SBT. Vital Signs Period Temp Pulse Resp BP Sys/Campbell Pulse Ox Last 24 Hr 97.7 F-98.4 F 93-130 19-35 84-191/41-124 96-100 Intake & Output 07/19/20 07/20/20 07/21/20 07/22/20 23:59 23:59 23:59 23:59 Intake Total 2359.5 1805.4 2095.4 769.4 Output Total 500 1550 1380 160 Balance 1859.5 255.4 715.4 609.4 Weight 28.6 kg 28.6 kg 28.7 kg 28.7 kg Active Medications Amino Acids (Prosource No Carb Liquid Pkt) 30 ml PO DAILY [facility] Last Admin: 07/22/20 09:33 Dose: 30 ml Documented by: Banana Based Medical Food (Banatrol Plus Powder Packet) 1 packet GT TID [facility] Last Admin: 07/22/20 05:28 Dose: 1 packet Documented by: Dextrose (D50w (Vial) -) 12.5 gm IVPUSH PRN PRN PRN Reason: HYPOGLYCEMIA Last Admin: 07/08/20 07:38 Dose: 12.5 gm Documented by: Folic Acid (Folic Acid -) 1 mg NGT DAILY [facility] Last Admin: 07/22/20 09:34 Dose: 1 mg Documented by: Heparin Sodium (Porcine) (Heparin -) 5,000 unit SQ BID [facility] Vasopressin 40 units/ Sodium (Chloride) 100 mls @ 5 mls/hr IVPB ASDIR [facility]; Protocol Last Admin: 07/22/20 09:33 Dose: Not Given Documented by: Dexmedetomidine/Sodium Chloride (Precedex 400 Mcg/100 Ml Inject) 400 mcg in 100 mls @ 1.555 mls/hr IVPB TITR [facility] Last Admin: 07/21/20 00:08 Dose: 0.7 mcg/kg/hr, 5.442 mls/hr Documented by: Piperacillin Sod/Tazobactam (Sod 3.375 gm/ Dextrose) 50 mls @ 100 mls/hr IVPB Q8H-IV [facility]; Protocol Last Admin: 07/22/20 09:34 Dose: 100 mls/hr Documented by: Morphine Sulfate (Morphine Sulfate) 1 mg IVPUSH Q6H PRN PRN Reason: PAIN LEVEL 6-10 Last Admin: 07/22/20 05:39 Dose: 1 mg Documented by: Multi-Ingredient Ointment (Zinc Oxide) 1 applic TP DAILY [facility] Last Admin: 07/22/20 09:34 Dose: 1 applic Documented by: Multivitamins/Minerals (Certavite-Antioxidant Liquid) 15 ml NGT DAILY [facility] Last Admin: 07/22/20 09:33 Dose: 15 ml Documented by: Nystatin (Mycostatin Ointment -) 1 applic TP DAILY [facility] Last Admin: 07/21/20 10:01 Dose: 1 applic Documented by: Potassium Chloride (Potassium Chloride Oral Liquid) 40 meq PO DAILY [facility] Last Admin: 07/22/20 09:33 Dose: 40 meq Documented by: Potassium Phos/Sodium Phos (Phos-Nak Packet -) 1 packet PO TID [facility] Last Admin: 07/22/20 05:28 Dose: 1 packet Documented by: Thiamine HCl (Vitamin B1 Injection -) 100 mg IVPB DAILY [facility] Last Admin: 07/22/20 09:33 Dose: 100 mg Documented by: Gen: intubated, sedated, cachectic Heart: RRR Lung: scattered rhonchi Abd: soft, nontender, +ascites, hypoactive bs Ext: no edema CBC, BMP 07/22/20 06:00 07/22/20 06:00 ASSESSMENT AND PLAN: Acute Hypoxic Respiratory Failure Pneumonia likely Aspiration UTI Sepsis Hyponatremia Small Bowel Obstruction Alcohol/Heroin Abuse Anemia/Thrombocytopenia Failure to Thrive Severe Protein Calorie Malnutrition Refeeding Syndrome (?) Fistula - spontaneous breathing trials as tolerated - titrate FiO2 to keep SpO2 >90% - Pulmonary toileting - Keep MAP>65, no pressors at this time - ABX per ID , remains on zosyn - monitor urine output, creatinine - replete lytes - Continue TF - DVT/GI prophylaxis - continue ICU monitoring - may need tracheostomy due to severe malnutrition and deconditioning : will D/W mother as soon as she returns our calls Neda Zavala ACNP [id number]
[2020-07-22] MEDS: NYSTATIN 100000 UNIT/GM TOPICAL OINTMENT 15 GM TUBE TP SCH (11:00)
[2020-07-22 11:01] LABS: CALCIUM 6.3 mg/dL (8.5-10.1)
--- NOTE | 2020-07-22 13:48 | PN ---
Progress Note (short form) - Note Progress Note: Problems 1. azotemia 2. hyponatremia 3. hyperkalemia 4. hypotension 5. sepsis 6. sbo 7. uti 8. liver cirrhosis 9. hypoalbuminemia 10. etoh abuse 11. substance abuse 12. psoriasis 13. acute resp failure 14. malnutrition Active Medications Amino Acids (Prosource No Carb Liquid Pkt) 30 ml PO DAILY [facility] Last Admin: 07/22/20 09:33 Dose: 30 ml Documented by: Banana Based Medical Food (Banatrol Plus Powder Packet) 1 packet GT TID [facility] Last Admin: 07/22/20 13:03 Dose: 1 packet Documented by: Dextrose (D50w (Vial) -) 12.5 gm IVPUSH PRN PRN PRN Reason: HYPOGLYCEMIA Last Admin: 07/08/20 07:38 Dose: 12.5 gm Documented by: Folic Acid (Folic Acid -) 1 mg NGT DAILY [facility] Last Admin: 07/22/20 09:34 Dose: 1 mg Documented by: Heparin Sodium (Porcine) (Heparin -) 5,000 unit SQ BID [facility] Vasopressin 40 units/ Sodium (Chloride) 100 mls @ 5 mls/hr IVPB ASDIR [facility]; Protocol Last Admin: 07/22/20 09:33 Dose: Not Given Documented by: Dexmedetomidine/Sodium Chloride (Precedex 400 Mcg/100 Ml Inject) 400 mcg in 100 mls @ 1.555 mls/hr IVPB TITR [facility] Last Admin: 07/21/20 00:08 Dose: 0.7 mcg/kg/hr, 5.442 mls/hr Documented by: Piperacillin Sod/Tazobactam (Sod 3.375 gm/ Dextrose) 50 mls @ 100 mls/hr IVPB Q8H-IV [facility]; Protocol Last Admin: 07/22/20 09:34 Dose: 100 mls/hr Documented by: Morphine Sulfate (Morphine Sulfate) 1 mg IVPUSH Q6H PRN PRN Reason: PAIN LEVEL 6-10 Last Admin: 07/22/20 05:39 Dose: 1 mg Documented by: Multi-Ingredient Ointment (Zinc Oxide) 1 applic TP DAILY [facility] Last Admin: 07/22/20 09:34 Dose: 1 applic Documented by: Multivitamins/Minerals (Certavite-Antioxidant Liquid) 15 ml NGT DAILY [facility] Last Admin: 09/20/20 09:33 Dose: 15 ml Documented by: Nystatin (Mycostatin Ointment -) 1 applic TP DAILY [facility] Last Admin: 07/22/20 11:00 Dose: 1 applic Documented by: Potassium Chloride (Potassium Chloride Oral Liquid) 40 meq PO DAILY [facility] Last Admin: 07/22/20 09:33 Dose: 40 meq Documented by: Potassium Phos/Sodium Phos (Phos-Nak Packet -) 1 packet PO TID [facility] Last Admin: 07/22/20 13:03 Dose: 1 packet Documented by: Thiamine HCl (Vitamin B1 Injection -) 100 mg IVPB DAILY [facility] Last Admin: 07/22/20 09:33 Dose: 100 mg Documented by: Last Vital Signs Temp Pulse Resp BP Pulse Ox 97.9 F 105 H 40 H 91/62 99 07/22/20 04:00 07/22/20 08:05 07/22/20 11:46 07/22/20 07:38 07/22/20 11:46 intubated, on vent attends during exam Lungs rhonchi l base anteriorly Heart reg on monitor Abd soft CBC, BMP 07/22/20 06:00 07/22/20 06:00 IMP- Prerenal anemia emaciated loose bm Plan - replace lytes - cont feeds - vent support - cont feeds
--- NOTE | 2020-07-22 17:31 | PN.HO ---
Progress Note (short form) - Note Progress Note: Hx taken mostly from EMR as patient is currently intubated. She is able to write answer in her board. Asking about going home. 35 y/o lady with PMHx of polysubstance use, Asthma, Cirrhosis initially presented to ER on 07/01 for AMS found to be hypoglycemic. On arrival to ER she was found to be in septic shock and was intubated. Patient also had severe transaminitis concerning for ischemia from hypotesion which has since normalized. She was started on broad spectrum antibiotics for UTI and PNA . She was extubated on 07/18 but was reintubated and prognosis is guarded. Hematology has been consulted for low hb and elevated INR. On review of her labs; patient's baseline Hb runs 8-9 (currently 7.1) plts were 200k in june (now 59k) and INR was 1.8 in June, now 2.4. Iron studies with low iron and iron sat of 26. B12 elevated to 2423, folate WNL. Of note, patient has severe malnutrition as she weighs 63lbs and albumin is less than 2. 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) Gastrointestinal: Yes: Other (GERD) Hepatobiliary: Yes: Cirrhosis, Other (Elevated LFT's) ...LMP: 02/01/20 ...: No Psych: Yes: Addictions - Alcohol/Substance Use Hx Alcohol Use: No - Smoking History Smoking history: Current every day smoker Have you smoked in the past 12 months: Yes Aproximately how many cigarettes per day: 3 - Social History Usual Living Arrangement: With Parent (clean and neat) Home Medications - Allergies Allergies/Adverse Reactions: Allergies Allergy/AdvReac Type Severity Reaction Status Date / Time No Known Allergies Allergy Verified 07/01/20 14:36 - Home Medications Home Medications: Ambulatory Orders Sulfamethoxazole/Trimethoprim [Bactrim Ds -] 1 tab PO BID #14 tablet 06/26/20 Family Medical History Family History: Unable to Obtain Review of Systems Unable to obtain ROS, reason: Intubated and Sedated Physical Exam Last Vital Signs Temp Pulse Resp BP Pulse Ox 99.4 F 131 H 29 H 97/68 100 07/22/20 17:00 07/22/20 17:00 07/22/20 17:00 07/22/20 17:00 07/22/20 17:00 Constitutional: Yes: Other (severely cachectic, awake and sedated on precedex; able to answer yes or no questions, lethargic) Eyes: Yes: Conjunctiva Clear HENT: Yes: Atraumatic, Normocephalic Cardiovascular: Yes: Tachycardia, Other Respiratory: Yes: Other (anterior lung aguirre with mechanical breath sounds) Gastrointestinal: Yes: Soft Extremities: Yes: Other (no ll edema) Integumentary: Yes: Pressure Ulcer Neurological: Yes: Alert 07/21/20 06:00 07/21/20 06:00 Assessment/Plan 35 y/o lady with hx of polysubstance abuse, 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 If normal/increased most consistent with Liver failure) and also factor V and factor VII -if Fibrinogen is <150, can supplement with Cryoprecipitate -if above labs are consistent with DIC; can supplement FFP as needed for supportive care Anemia, Thrombocytopenia -multifactorial;most likely 2/2 bone marrow suppression due to acute illness -iron 23, iron sat 26, B12 2423, folate WNL -would transfuse for hb<7, plts <10k unless actively bleeding -follow up above labs
[2020-07-22] MEDS ORDERED: ACETAMINOPHEN 1000 MG/100 ML VIAL (NON FORMULARY) IVPB ONE (18:12)
[2020-07-22] MEDS: DEXMEDETOMIDINE IN 0.9 % NACL 400 MCG/100 ML VIAL IVPB SCH (18:39)
--- NOTE | 2020-07-22 20:49 | PN ---
Progress Note, Physician History of Present Illness: Pt more awake Pt remains intubated - Current Medication List Current Medications: Active Medications Amino Acids (Prosource No Carb Liquid Pkt) 30 ml PO DAILY [facility] Last Admin: 07/22/20 09:33 Dose: 30 ml Documented by: Banana Based Medical Food (Banatrol Plus Powder Packet) 1 packet GT TID [facility] Last Admin: 07/22/20 13:03 Dose: 1 packet Documented by: Dextrose (D50w (Vial) -) 12.5 gm IVPUSH PRN PRN PRN Reason: HYPOGLYCEMIA Last Admin: 07/08/20 07:38 Dose: 12.5 gm Documented by: Folic Acid (Folic Acid -) 1 mg NGT DAILY [facility] Last Admin: 07/22/20 09:34 Dose: 1 mg Documented by: Heparin Sodium (Porcine) (Heparin -) 5,000 unit SQ BID [facility] Vasopressin 40 units/ Sodium (Chloride) 100 mls @ 5 mls/hr IVPB ASDIR [facility]; Protocol Last Admin: 07/22/20 09:33 Dose: Not Given Documented by: Dexmedetomidine/Sodium Chloride (Precedex 400 Mcg/100 Ml Inject) 400 mcg in 100 mls @ 1.555 mls/hr IVPB TITR [facility] Last Admin: 07/22/20 18:39 Dose: 0.7 mcg/kg/hr, 5.442 mls/hr Documented by: Piperacillin Sod/Tazobactam (Sod 3.375 gm/ Dextrose) 50 mls @ 100 mls/hr IVPB Q8H-IV [facility]; Protocol Last Admin: 07/22/20 18:02 Dose: 100 mls/hr Documented by: Morphine Sulfate (Morphine Sulfate) 1 mg IVPUSH Q6H PRN PRN Reason: PAIN LEVEL 6-10 Last Admin: 07/22/20 14:49 Dose: 1 mg Documented by: Multi-Ingredient Ointment (Zinc Oxide) 1 applic TP DAILY [facility] Last Admin: 07/22/20 09:34 Dose: 1 applic Documented by: Multivitamins/Minerals (Certavite-Antioxidant Liquid) 15 ml NGT DAILY [facility] Last Admin: 07/22/20 09:33 Dose: 15 ml Documented by: Nystatin (Mycostatin Ointment -) 1 applic TP DAILY [facility] Last Admin: 07/22/20 11:00 Dose: 1 applic Documented by: Potassium Chloride (Potassium Chloride Oral Liquid) 40 meq PO DAILY [facility] Last Admin: 07/22/20 09:33 Dose: 40 meq Documented by: Potassium Phos/Sodium Phos (Phos-Nak Packet -) 1 packet PO TID [facility] Last Admin: 07/22/20 13:03 Dose: 1 packet Documented by: Thiamine HCl (Vitamin B1 Injection -) 100 mg IVPB DAILY [facility] Last Admin: 07/22/20 09:33 Dose: 100 mg Documented by: - Objective Vital Signs: Vital Signs Temperature 99.4 F 07/22/20 17:00 Pulse Rate 125 H 07/22/20 20:10 Respiratory Rate 26 H 07/22/20 20:10 Blood Pressure 97/68 07/22/20 17:00 O2 Sat by Pulse Oximetry (%) 100 07/22/20 20:10 Constitutional: Yes: Cachectic, Other (Intubated) Cardiovascular: Yes: Tachycardia Respiratory: Yes: Diminished Gastrointestinal: Yes: WNL, Normal Bowel Sounds, Soft Labs: CBC, BMP 07/22/20 06:00 07/22/20 06:00 INR, PTT INR 1.46 (0.83-1.09) H 07/21/20 06:00 Fibrinogen 344.0 mg/dL (238-498) 07/21/20 06:00 Problem List - Problems (1) Respiratory failure Assessment/Plan: Acute on chronic respiratory failure Multifactorial RLL infiltrates ?Asp pneumonia Cont IV Zosyn Weaning trials As per pulmonary Code(s): J96.90 - RESPIRATORY FAILURE, UNSP, UNSP W HYPOXIA OR HYPERCAPNIA (2) Sepsis Assessment/Plan: Lactic acidosis Cont IVF Cont IV Zosyn Pt on pressor UTI vs Aspiration pneumonia Blood culture/urine culture negative to date Repeat CXR not much change Code(s): A41.9 - SEPSIS, UNSPECIFIED ORGANISM Qualifiers: Sepsis type: sepsis due to unspecified organism Sepsis acute organ dysfunction status: unspecified Qualified Code(s): A41.9 - Sepsis, unspecified organism (3) Anemia Assessment/Plan: Monitor H/H S/p transfusion PRBC's H/H improved Code(s): D64.9 - ANEMIA, UNSPECIFIED (4) At risk for electrolyte imbalance Assessment/Plan: Electrolytes improved Cont to monitor Code(s): Z91.89 - OTH PERSONAL RISK FACTORS, NOT ELSEWHERE CLASSIFIED (5) SBO (small bowel obstruction) Assessment/Plan: Surgical consult noted Cont NPO Cont IVF Monitor serial abdominal xrays Monitor hypoglycemia CT scan abd showed probable anasacra/ascites Pt now on enteral feeds Code(s): K56.609 - UNSP INTESTNL OBST, UNSP TO PARTIAL VERSUS COMPLETE OBST (6) Liver cirrhosis, alcoholic Assessment/Plan: Cont to monitor Poor prognosis Code(s): K70.30 - ALCOHOLIC CIRRHOSIS OF LIVER WITHOUT ASCITES (7) Hypoalbuminemia Code(s): E88.09 - OTH DISORDERS OF PLASMA-PROTEIN METABOLISM, NEC (8) Substance abuse Code(s): F19.10 - OTHER PSYCHOACTIVE SUBSTANCE ABUSE, UNCOMPLICATED (9) Cachexia Assessment/Plan: Due to severe protein malnutrition Code(s): R64 - CACHEXIA (10) Severe malnutrition Code(s): E43 - UNSPECIFIED SEVERE PROTEIN-CALORIE MALNUTRITION
[2020-07-23] MEDS: PIPERACILLIN/TAZOB 3.375 GM 3.375 GM in DEXTROSE 5%-WATER - 50 ML IVPB SCH ×3 (02:00→17:55)
[2020-07-23] MEDS ORDERED: PIPERACILLIN/TAZOBACTAM 3.375 GM VIAL IVPB ONE ×4 (03:14→17:50)
[2020-07-23] MEDS ORDERED: DEXTROSE 5%-WATER - 50 ML IVPB ONE ×3 (03:15→17:49)
[2020-07-23] MEDS: BANATROL PLUS POWDER PACKET GT SCH ×3 (06:32→23:01)
[2020-07-23] MEDS: NAPH,MB-DB/K PH,MBDB POWDER PACKET PO SCH ×3 (06:32→23:01)
[2020-07-23] MEDS: MORPHINE SULFATE 2 MG/ML VIAL IVPUSH PRN ×2 (06:33→19:28)
[2020-07-23 06:48] LABS: ARTERIAL BLOOD GAS BASE EXCESS -4.1 mmol/L (-2-2); ARTERIAL BLOOD GAS PO2 142.3 mmHg (80-100); ARTERIAL BLOOD GAS pH 7.472 (7.350-7.450)
[2020-07-23 06:59] LABS: ALLENS TEST POSITIVE
[2020-07-23 07:00] LABS: VENT MODE A/C
[2020-07-23 07:01] LABS: VENT RATE 14
[2020-07-23 07:58] LABS: BASO % 0.4 % (0-2.0); EOS % 2.9 % (0-4.5); HEMATOCRIT 20.9 % (32.4-45.2); HEMOGLOBIN 7.3 GM/dL (10.7-15.3); LYMPH % 7.9 % (8-40); MCH 30.3 pg (25.7-33.7); MCHC 34.8 g/dl (32.0-36.0); MONO % 7.9 % (3.8-10.2); NEUT % 80.9 % (42.8-82.8); PLATELET COUNT 121 K/MM3 (134-434); RDW 19.2 % (11.6-15.6); WHITE BLOOD COUNT 5.5 K/mm3 (4.0-10.0)
[2020-07-23 08:32] LABS: BLOOD UREA NITROGEN 20.8 mg/dL (7-18); CREATININE 0.2 mg/dL (0.55-1.3); MAGNESIUM 1.9 mg/dL (1.8-2.4); PHOSPHOROUS 2.2 mg/dL (2.5-4.9); POTASSIUM 4.1 mmol/L (3.5-5.1)
[2020-07-23 08:51] LABS: CALCIUM 6.6 mg/dL (8.5-10.1)
[2020-07-23] MEDS: VASOPRESSIN 40 UNITS in SODIUM CHLORIDE 98 ML IVPB SCH (09:20)
[2020-07-23] MEDS ORDERED: PT OWN MED DRAWER 7, Y5N ONE (09:41)
[2020-07-23] MEDS: MULTIVIT-MINERALS ORAL LIQUID NGT SCH (09:51)
[2020-07-23] MEDS: THIAMINE HCL 200 MG/2 ML VIAL IVPB SCH (09:51)
[2020-07-23] MEDS: FOLIC ACID 1 MG TABLET (FP) NGT SCH (09:51)
[2020-07-23] MEDS: POTASSIUM CHLORIDE ORAL LIQUID 20 MEQ/15 ML PO SCH (09:52)
[2020-07-23] MEDS: AMINO ACIDS/PROTEIN HYDROLYS 30 ML LIQUID.PKT PO SCH (09:52)
[2020-07-23] MEDS: ZINC OXIDE 20% TOPICAL OINTMENT 30 GM TUBE TP SCH (09:52)
[2020-07-23] MEDS: NYSTATIN 100000 UNIT/GM TOPICAL OINTMENT 15 GM TUBE TP SCH (09:52)
--- NOTE | 2020-07-23 10:07 | CONSULT ---
- Consultation WOUND CARE CONSULT Patient well known to the Surgery Service as we were initially consulted (General Surgery) on 07/02/2020. Called to evaluate sacral ulcer Intubated on admission due to severe sepsis 07/02/2020 Extubated 07/18/2020 but quickly reintubated Severe malnutrition as she weighs 63lbs; Albumin < 2. GEN: cachexia. alert. nad. intubated Back: Beginning of sacral eschar 6 cm x 5 cm (soft, not infected, non- boggy/indurated. No periwound erythema) : mistry to gravity Rectal: Tube in place A/P 35 yo female severely cachexia, intubated, sacral ulcer -Reposition every two hours while in bed -Air mattress recommended -Use drawsheets and Trendelenburg when repositioning to reduce friction and shear -Manageincontinence via timely cleansing, use of appropriate incontinence disposables and use of barrier ointment to intact skin -Ensure adequate hydration/nutrition, supplementation per primary team -Ensure off-loading to all bony areas (heels, ankles, hips and tailbone) with Allevyn/Optifoam -No surgical intervention. -Cont ICU management -Reconsult PRN Above plan discussed with Dr. Mcintosh and agrees. Problem List - Problems (1) SBO (small bowel obstruction) Code(s): K56.609 - UNSP INTESTNL OBST, UNSP TO PARTIAL VERSUS COMPLETE OBST (2) At risk for electrolyte imbalance Code(s): Z91.89 - OTH PERSONAL RISK FACTORS, NOT ELSEWHERE CLASSIFIED (3) Pneumonia Code(s): J18.9 - PNEUMONIA, UNSPECIFIED ORGANISM (4) Alcoholic liver damage Code(s): K70.9 - ALCOHOLIC LIVER DISEASE, UNSPECIFIED (5) Cachexia Code(s): R64 - CACHEXIA (6) Hypoalbuminemia Code(s): E88.09 - OTH DISORDERS OF PLASMA-PROTEIN METABOLISM, NEC (7) Hyponatremia Code(s): E87.1 - HYPO-OSMOLALITY AND HYPONATREMIA (8) Liver cirrhosis, alcoholic Code(s): K70.30 - ALCOHOLIC CIRRHOSIS OF LIVER WITHOUT ASCITES
[2020-07-23] MEDS: HEPARIN NA (PORCINE) 5,000 UNITS/ML 1ML VIAL SQ SCH ×2 (10:30→23:01)
--- NOTE | 2020-07-23 13:17 | PN ---
Teaching Attending Note Name of Resident: Masha Eduardo ATTENDING PHYSICIAN STATEMENT I saw and evaluated the patient. I reviewed the resident's note and discussed the case with the resident. I agree with the resident's findings and plan as documented. SUBJECTIVE: Patient seen and examined in the ICU. Intubated. Wasted. Awake and able to answer some questions. Low dose Vasopressin. OBJECTIVE: Intake & Output 07/20/20 07/21/20 07/22/20 07/23/20 23:59 23:59 23:59 23:59 Intake Total 1805.4 2095.4 1823.8 609.4 Output Total 1550 1380 560 300 Balance 255.4 715.4 1263.8 309.4 Weight 63 lb 0.835 oz 63 lb 4.363 oz 63 lb 4.363 oz 63 lb 4.363 oz Last Vital Signs Temp Pulse Resp BP Pulse Ox 99.1 F 123 H 33 H 52/35 L 100 07/23/20 09:00 07/23/20 09:20 07/23/20 11:35 07/23/20 09:20 07/23/20 11:35 Active Medications Amino Acids (Prosource No Carb Liquid Pkt) 30 ml PO DAILY [facility] Last Admin: 07/23/20 09:52 Dose: 30 ml Documented by: Banana Based Medical Food (Banatrol Plus Powder Packet) 1 packet GT TID [facility] Last Admin: 07/23/20 06:32 Dose: 1 packet Documented by: Dextrose (D50w (Vial) -) 12.5 gm IVPUSH PRN PRN PRN Reason: HYPOGLYCEMIA Last Admin: 07/08/20 07:38 Dose: 12.5 gm Documented by: Folic Acid (Folic Acid -) 1 mg NGT DAILY [facility] Last Admin: 07/23/20 09:51 Dose: 1 mg Documented by: Heparin Sodium (Porcine) (Heparin -) 5,000 unit SQ BID [facility] Vasopressin 40 units/ Sodium (Chloride) 100 mls @ 5 mls/hr IVPB ASDIR [facility]; Protocol Last Admin: 07/23/20 09:20 Dose: 2 units/hr, 5 mls/hr Documented by: Dexmedetomidine/Sodium Chloride (Precedex 400 Mcg/100 Ml Inject) 400 mcg in 100 mls @ 1.555 mls/hr IVPB TITR [facility] Last Admin: 07/22/20 18:39 Dose: 0.7 mcg/kg/hr, 5.442 mls/hr Documented by: Piperacillin Sod/Tazobactam (Sod 3.375 gm/ Dextrose) 50 mls @ 100 mls/hr IVPB Q8H-IV [facility]; Protocol Last Admin: 07/23/20 09:51 Dose: 100 mls/hr Documented by: Morphine Sulfate (Morphine Sulfate) 1 mg IVPUSH Q6H PRN PRN Reason: PAIN LEVEL 6-10 Last Admin: 07/23/20 06:33 Dose: 1 mg Documented by: Multi-Ingredient Ointment (Zinc Oxide) 1 applic TP DAILY [facility] Last Admin: 07/23/20 09:52 Dose: 1 applic Documented by: Multivitamins/Minerals (Certavite-Antioxidant Liquid) 15 ml NGT DAILY [facility] Last Admin: 07/23/20 09:51 Dose: 15 ml Documented by: Nystatin (Mycostatin Ointment -) 1 applic TP DAILY [facility] Last Admin: 07/23/20 09:52 Dose: 1 applic Documented by: Potassium Chloride (Potassium Chloride Oral Liquid) 40 meq PO DAILY [facility] Last Admin: 07/23/20 09:52 Dose: 40 meq Documented by: Potassium Phos/Sodium Phos (Phos-Nak Packet -) 1 packet PO TID [facility] Last Admin: 07/23/20 06:32 Dose: 1 packet Documented by: Thiamine HCl (Vitamin B1 Injection -) 100 mg IVPB DAILY [facility] Last Admin: 07/23/20 09:51 Dose: 100 mg Documented by: Gen: intubated, awake, cachectic Heart: RRR Lung: Vented, scattered rhonchi Abd: soft, nontender, +ascites Ext: no edema Laboratory Results - last 24 hr 07/22/20 07/23/20 07/23/20 18:08 00:25 05:20 WBC RBC Hgb Hct MCV MCH MCHC RDW Plt Count MPV Absolute Neuts (auto) Neutrophils % Lymphocytes % Monocytes % Eosinophils % Basophils % Nucleated RBC % Anticoagulation Therapy No Result Required. Puncture Site Right brachial Patient Temperature No Result Required. ABG pH 7.472 H ABG pCO2 26.50 L ABG pO2 142.3 H ABG HCO3 18.9 L ABG O2 Sat (Measured) 99.0 H ABG O2 Content No Result Required. ABG Base Excess -4.1 L Yandel Test Positive Patient On Oxygen Yes O2 Delivery Device Vent Oxygen Flow Rate 40% Vent Mode A/c Vent Rate 14 Mechanical Rate Yes PEEP 5.0 Pressure Support Vent 350 Sodium Potassium Chloride Carbon Dioxide Anion Gap BUN Creatinine Est GFR (CKD-EPI)AfAm Est GFR (CKD-EPI)NonAf POC Glucometer 105 111 Random Glucose Calcium Phosphorus Magnesium 07/23/20 07/23/20 07/23/20 05:30 05:30 06:18 WBC 5.5 RBC 2.40 L Hgb 7.3 L Hct 20.9 L MCV 87.0 MCH 30.3 MCHC 34.8 RDW 19.2 H Plt Count 121 L D MPV 9.0 Absolute Neuts (auto) 4.4 Neutrophils % 80.9 Lymphocytes % 7.9 L D Monocytes % 7.9 D Eosinophils % 2.9 D Basophils % 0.4 D Nucleated RBC % 0 Anticoagulation Therapy Puncture Site Patient Temperature ABG pH ABG pCO2 ABG pO2 ABG HCO3 ABG O2 Sat (Measured) ABG O2 Content ABG Base Excess Yandel Test Patient On Oxygen O2 Delivery Device Oxygen Flow Rate Vent Mode Vent Rate Mechanical Rate PEEP Pressure Support Vent Sodium 137 Potassium 4.1 Chloride 108 H Carbon Dioxide 22 Anion Gap 7 L BUN 20.8 H Creatinine 0.2 L Est GFR (CKD-EPI)AfAm 196.46 Est GFR (CKD-EPI)NonAf 169.51 POC Glucometer 124 Random Glucose 120 H Calcium 6.6 L* Phosphorus 2.2 L Magnesium 1.9 ASSESSMENT AND PLAN: Acute Hypoxic Respiratory Failure Pneumonia likely Aspiration UTI Sepsis Hyponatremia Small Bowel Obstruction Alcohol/Heroin Abuse Anemia/Thrombocytopenia Failure to Thrive Severe Protein Calorie Malnutrition Refeeding Syndrome (?) Fistula - Imaging to R/O fistula - monitor urine output, creatinine - replete lytes - ABX per ID - titrate pressors to maintain MAP >65 - titrate FiO2 to keep SpO2 >90% - titrate enteral feeds to goal - DVT/GI prophylaxis - continue ICU monitoring - Will offer mother tracheostomy due to severe malnutrition and deconditioning : will obtain consent from mother as soon as she returns our calls Dr aBbb Critical care time spent in reviewing chart, evaluating patient and formulating plan 35 min
[2020-07-23] MEDS ORDERED: PROPOFOL 200 MG/20 ML VIAL IVPUSH ONE ×3 (13:27)
[2020-07-23] MEDS ORDERED: RAPID SEQUENCE INTUBATION KIT NR ONE (13:52)
--- NOTE | 2020-07-23 14:45 | PN ---
Progress Note, Physician History of Present Illness: Pt seen and examined at bedside. She is awake but remains intubated. - Current Medication List Current Medications: Active Medications Amino Acids (Prosource No Carb Liquid Pkt) 30 ml PO DAILY [facility] Last Admin: 07/23/20 09:52 Dose: 30 ml Documented by: Banana Based Medical Food (Banatrol Plus Powder Packet) 1 packet GT TID [facility] Last Admin: 07/23/20 06:32 Dose: 1 packet Documented by: Dextrose (D50w (Vial) -) 12.5 gm IVPUSH PRN PRN PRN Reason: HYPOGLYCEMIA Last Admin: 07/08/20 07:38 Dose: 12.5 gm Documented by: Folic Acid (Folic Acid -) 1 mg NGT DAILY [facility] Last Admin: 07/23/20 09:51 Dose: 1 mg Documented by: Heparin Sodium (Porcine) (Heparin -) 5,000 unit SQ BID [facility] Vasopressin 40 units/ Sodium (Chloride) 100 mls @ 5 mls/hr IVPB ASDIR [facility]; Protocol Last Admin: 07/23/20 09:20 Dose: 2 units/hr, 5 mls/hr Documented by: Dexmedetomidine/Sodium Chloride (Precedex 400 Mcg/100 Ml Inject) 400 mcg in 100 mls @ 1.555 mls/hr IVPB TITR [facility] Last Admin: 07/22/20 18:39 Dose: 0.7 mcg/kg/hr, 5.442 mls/hr Documented by: Piperacillin Sod/Tazobactam (Sod 3.375 gm/ Dextrose) 50 mls @ 100 mls/hr IVPB Q8H-IV [facility]; Protocol Last Admin: 07/23/20 09:51 Dose: 100 mls/hr Documented by: Morphine Sulfate (Morphine Sulfate) 1 mg IVPUSH Q6H PRN PRN Reason: PAIN LEVEL 6-10 Last Admin: 07/23/20 06:33 Dose: 1 mg Documented by: Multi-Ingredient Ointment (Zinc Oxide) 1 applic TP DAILY [facility] Last Admin: 07/23/20 09:52 Dose: 1 applic Documented by: Multivitamins/Minerals (Certavite-Antioxidant Liquid) 15 ml NGT DAILY [facility] Last Admin: 07/23/20 09:51 Dose: 15 ml Documented by: Nystatin (Mycostatin Ointment -) 1 applic TP DAILY [facility] Last Admin: 07/23/20 09:52 Dose: 1 applic Documented by: Potassium Chloride (Potassium Chloride Oral Liquid) 40 meq PO DAILY [facility] Last Admin: 07/23/20 09:52 Dose: 40 meq Documented by: Potassium Phos/Sodium Phos (Phos-Nak Packet -) 1 packet PO TID [facility] Last Admin: 07/23/20 06:32 Dose: 1 packet Documented by: Thiamine HCl (Vitamin B1 Injection -) 100 mg IVPB DAILY [facility] Last Admin: 07/23/20 09:51 Dose: 100 mg Documented by: - Objective Vital Signs: Vital Signs Temperature 99.1 F 07/23/20 09:00 Pulse Rate 123 H 07/23/20 09:20 Respiratory Rate 33 H 07/23/20 11:35 Blood Pressure 52/35 L 07/23/20 09:20 O2 Sat by Pulse Oximetry (%) 100 07/23/20 11:35 Constitutional: Yes: Calm, Cachectic Eyes: Yes: Conjunctiva Clear HENT: Yes: Atraumatic Neck: Yes: Supple Cardiovascular: Yes: S1, S2 Respiratory: Yes: Mechanically Ventilated Gastrointestinal: Yes: Soft Genitourinary: Yes: Uribe Present Musculoskeletal: Yes: Muscle Weakness Neurological: Yes: Other (awake) Labs: CBC, BMP 07/23/20 05:30 07/23/20 05:30 INR, PTT INR 1.46 (0.83-1.09) H 07/21/20 06:00 Fibrinogen 344.0 mg/dL (238-498) 07/21/20 06:00 Problem List - Problems (1) Hypoglycemia Code(s): E16.2 - HYPOGLYCEMIA, UNSPECIFIED (2) Sepsis Code(s): A41.9 - SEPSIS, UNSPECIFIED ORGANISM Qualifiers: Sepsis type: sepsis due to unspecified organism Sepsis acute organ dysfunction status: unspecified Qualified Code(s): A41.9 - Sepsis, unspecified organism (3) Hypoalbuminemia Code(s): E88.09 - OTH DISORDERS OF PLASMA-PROTEIN METABOLISM, NEC (4) Hyponatremia Code(s): E87.1 - HYPO-OSMOLALITY AND HYPONATREMIA Assessment/Plan Current Medications Generic Name Dose Route Start Last Admin Trade Name Freq PRN Reason Stop Dose Admin Amino Acids 30 ml 07/19/20 10:00 07/23/20 09:52 Prosource No Carb Liquid Pkt PO 30 ml DAILY [facility] Administration Banana Based Medical Food 1 packet 07/10/20 22:00 07/23/20 06:32 Banatrol Plus Powder Packet GT 1 packet TID [facility] Administration Dextrose 12.5 gm 07/08/20 07:08 07/08/20 07:38 D50w (Vial) - IVPUSH 12.5 gm PRN PRN Administration HYPOGLYCEMIA Folic Acid 1 mg 07/06/20 10:00 07/23/20 09:51 Folic Acid - NGT 1 mg DAILY [facility] Administration Heparin Sodium (Porcine) 5,000 unit 07/20/20 10:00 Heparin - SQ BID [facility] Vasopressin 40 units/ Sodium 100 mls @ 5 mls/hr 07/08/20 07:00 07/23/20 09:20 Chloride IVPB 2 units/hr ASDIR [facility] 5 mls/hr Administration Protocol 2 UNITS/HR Dexmedetomidine/Sodium Chloride 400 mcg in 100 mls @ 1.555 mls/hr 07/16/20 15:30 07/22/20 18:39 Precedex 400 Mcg/100 Ml Inject IVPB 0.7 mcg/kg/hr TITR [facility] 5.442 mls/hr Administration 0.2 MCG/KG/HR Piperacillin Sod/Tazobactam 50 mls @ 100 mls/hr 07/20/20 13:30 07/23/20 09:51 Sod 3.375 gm/ Dextrose IVPB 100 mls/hr Q8H-IV [facility] Administration Protocol Morphine Sulfate 1 mg 07/21/20 05:22 07/23/20 06:33 Morphine Sulfate IVPUSH 1 mg Q6H PRN Administration PAIN LEVEL 6-10 Multi-Ingredient Ointment 1 applic 07/19/20 13:30 07/23/20 09:52 Zinc Oxide TP 1 applic DAILY [facility] Administration Multivitamins/Minerals 15 ml 07/06/20 11:45 07/23/20 09:51 Certavite-Antioxidant Liquid NGT 15 ml DAILY [facility] Administration Nystatin 1 applic 07/19/20 13:45 07/23/20 09:52 Mycostatin Ointment - TP 1 applic DAILY [facility] Administration Potassium Chloride 40 meq 07/17/20 12:30 07/23/20 09:52 Potassium Chloride Oral Liquid PO 40 meq DAILY [facility] Administration Potassium Phos/Sodium Phos 1 packet 07/09/20 14:00 07/23/20 06:32 Phos-Nak Packet - PO 1 packet TID [facility] Administration Thiamine HCl 100 mg 07/11/20 12:45 07/23/20 09:51 Vitamin B1 Injection - IVPB 100 mg DAILY [facility] Administration Impression 1. azotemia 2. hyponatremia 3. hyperkalemia 4. hypotension 5. sepsis 6. sbo 7. uti 8. liver cirrhosis 9. hypoalbuminemia 10. etoh abuse 11. substance abuse 12. psoriasis 13. acute resp failure 14. malnutrition Plan - cont with feeds - vent support - replace lytes - cont supplements - maintain map of 65
--- NOTE | 2020-07-23 15:40 | PN ---
Progress Note, Physician History of Present Illness: more awake continues to be intubated still on pressors failure to thrive able to talk a bit and understand - Current Medication List Current Medications: Active Medications Amino Acids (Prosource No Carb Liquid Pkt) 30 ml PO DAILY [facility] Last Admin: 07/23/20 09:52 Dose: 30 ml Documented by: Banana Based Medical Food (Banatrol Plus Powder Packet) 1 packet GT TID [facility] Last Admin: 07/23/20 14:55 Dose: 1 packet Documented by: Dextrose (D50w (Vial) -) 12.5 gm IVPUSH PRN PRN PRN Reason: HYPOGLYCEMIA Last Admin: 07/08/20 07:38 Dose: 12.5 gm Documented by: Folic Acid (Folic Acid -) 1 mg NGT DAILY [facility] Last Admin: 07/23/20 09:51 Dose: 1 mg Documented by: Heparin Sodium (Porcine) (Heparin -) 5,000 unit SQ BID [facility] Last Admin: 07/23/20 10:30 Dose: Not Given Documented by: Vasopressin 40 units/ Sodium (Chloride) 100 mls @ 5 mls/hr IVPB ASDIR [facility]; Protocol Last Admin: 07/23/20 09:20 Dose: 2 units/hr, 5 mls/hr Documented by: Piperacillin Sod/Tazobactam (Sod 3.375 gm/ Dextrose) 50 mls @ 100 mls/hr IVPB Q8H-IV [facility]; Protocol Last Admin: 07/23/20 09:51 Dose: 100 mls/hr Documented by: Morphine Sulfate (Morphine Sulfate) 1 mg IVPUSH Q6H PRN PRN Reason: PAIN LEVEL 6-10 Last Admin: 07/23/20 06:33 Dose: 1 mg Documented by: Multi-Ingredient Ointment (Zinc Oxide) 1 applic TP DAILY [facility] Last Admin: 07/23/20 09:52 Dose: 1 applic Documented by: Multivitamins/Minerals (Certavite-Antioxidant Liquid) 15 ml NGT DAILY [facility] Last Admin: 07/23/20 09:51 Dose: 15 ml Documented by: Nystatin (Mycostatin Ointment -) 1 applic TP DAILY [facility] Last Admin: 07/23/20 09:52 Dose: 1 applic Documented by: Potassium Chloride (Potassium Chloride Oral Liquid) 40 meq PO DAILY [facility] Last Admin: 07/23/20 09:52 Dose: 40 meq Documented by: Potassium Phos/Sodium Phos (Phos-Nak Packet -) 1 packet PO TID [facility] Last Admin: 07/23/20 14:55 Dose: 1 packet Documented by: Thiamine HCl (Vitamin B1 Injection -) 100 mg IVPB DAILY [facility] Last Admin: 07/23/20 09:51 Dose: 100 mg Documented by: - Objective Vital Signs: Vital Signs Temperature 99.1 F 07/23/20 09:00 Pulse Rate 123 H 07/23/20 09:20 Respiratory Rate 18 07/23/20 15:36 Blood Pressure 52/35 L 07/23/20 09:20 O2 Sat by Pulse Oximetry (%) 100 07/23/20 15:36 Constitutional: Yes: Other Cardiovascular: Yes: Tachycardia, S1, S2 Respiratory: Yes: Intubated, Mechanically Ventilated Gastrointestinal: Yes: Normal Bowel Sounds, Soft Genitourinary: Yes: Uribe Present Musculoskeletal: Yes: WNL Extremities: Yes: WNL Neurological: Yes: Alert Labs: CBC, BMP 07/23/20 05:30 07/23/20 05:30 INR, PTT INR 1.46 (0.83-1.09) H 07/21/20 06:00 Fibrinogen 344.0 mg/dL (238-498) 07/21/20 06:00 - ....Imaging Chest X-ray: Report Reviewed, Image Reviewed Assessment/Plan Pneumonia likely Aspiration UTI Sepsis Hyponatremia SBO resolving Alcohol/Heroin Abuse Anemia Failure to Thrive Severe Protein Calorie Malnutrition uti sacral wounds plan continue abx nutrition as per icu vent mgmt repeat cx if needed close watch plan for trach after talking to mother cc 38 min
[2020-07-23] MEDS: DEXMEDETOMIDINE IN 0.9 % NACL 400 MCG/100 ML VIAL IVPB SCH (17:55)
[2020-07-23] MEDS ORDERED: ACETAMINOPHEN 1000 MG/100 ML VIAL (NON FORMULARY) IVPB PRN ×3 (19:10→19:53)
--- NOTE | 2020-07-23 19:34 | PN ---
Progress Note, Physician History of Present Illness: 35 yo female with PMH of eating disorder, cachexia, alcohol abuse, heroin, cirrhosis, htn, asthma. Pt is intubated, alert, able to follow commands, able to communicate via writing. She desires to be extubated and complains about back pain and wanting to sit up. - Current Medication List Current Medications: Active Medications Acetaminophen (Ofirmev Injection -) 1,000 mg IVPB Q6H PRN PRN Reason: PAIN Stop: 07/24/20 19:10 Amino Acids (Prosource No Carb Liquid Pkt) 30 ml PO DAILY [facility] Last Admin: 07/23/20 09:52 Dose: 30 ml Documented by: Banana Based Medical Food (Banatrol Plus Powder Packet) 1 packet GT TID [facility] Last Admin: 07/23/20 14:55 Dose: 1 packet Documented by: Dextrose (D50w (Vial) -) 12.5 gm IVPUSH PRN PRN PRN Reason: HYPOGLYCEMIA Last Admin: 07/08/20 07:38 Dose: 12.5 gm Documented by: Folic Acid (Folic Acid -) 1 mg NGT DAILY [facility] Last Admin: 07/23/20 09:51 Dose: 1 mg Documented by: Heparin Sodium (Porcine) (Heparin -) 5,000 unit SQ BID [facility] Last Admin: 07/23/20 10:30 Dose: Not Given Documented by: Vasopressin 40 units/ Sodium (Chloride) 100 mls @ 5 mls/hr IVPB ASDIR [facility]; Protocol Last Titration: 07/23/20 12:00 Dose: 0 units/hr, 0 mls/hr Documented by: Piperacillin Sod/Tazobactam (Sod 3.375 gm/ Dextrose) 50 mls @ 100 mls/hr IVPB Q8H-IV [facility]; Protocol Last Admin: 07/23/20 17:55 Dose: 100 mls/hr Documented by: Morphine Sulfate (Morphine Sulfate) 1 mg IVPUSH Q6H PRN PRN Reason: PAIN LEVEL 6-10 Last Admin: 07/23/20 06:33 Dose: 1 mg Documented by: Multi-Ingredient Ointment (Zinc Oxide) 1 applic TP DAILY [facility] Last Admin: 07/23/20 09:52 Dose: 1 applic Documented by: Multivitamins/Minerals (Certavite-Antioxidant Liquid) 15 ml NGT DAILY [facility] Last Admin: 07/23/20 09:51 Dose: 15 ml Documented by: Nystatin (Mycostatin Ointment -) 1 applic TP DAILY [facility] Last Admin: 07/23/20 09:52 Dose: 1 applic Documented by: Potassium Chloride (Potassium Chloride Oral Liquid) 40 meq PO DAILY [facility] Last Admin: 07/23/20 09:52 Dose: 40 meq Documented by: Potassium Phos/Sodium Phos (Phos-Nak Packet -) 1 packet PO TID [facility] Last Admin: 07/23/20 14:55 Dose: 1 packet Documented by: Thiamine HCl (Vitamin B1 Injection -) 100 mg IVPB DAILY [facility] Last Admin: 07/23/20 09:51 Dose: 100 mg Documented by: - Objective Vital Signs: Vital Signs Temperature 97.4 F L 07/23/20 17:00 Pulse Rate 120 H 07/23/20 17:00 Respiratory Rate 28 H 07/23/20 17:00 Blood Pressure 87/75 L 07/23/20 17:00 O2 Sat by Pulse Oximetry (%) 100 07/23/20 17:00 Constitutional: Yes: Cachectic, Moderate Distress, Thin. No: Well Nourished Cardiovascular: Yes: Regular Rate and Rhythm, Tachycardia, S1, S2. No: JVD, Murmur Gastrointestinal: Yes: Normal Bowel Sounds, Soft Musculoskeletal: Yes: Back Pain Extremities: Yes: Delayed Capillary Refill. No: Cold, Cool, Deformity Integumentary: Yes: Other (sacral ulcer, stage 1) Neurological: Yes: Alert Psychiatric: Yes: Alert, Agitated Labs: CBC, BMP 07/23/20 05:30 07/23/20 05:30 INR, PTT INR 1.46 (0.83-1.09) H 07/21/20 06:00 Fibrinogen 344.0 mg/dL (238-498) 07/21/20 06:00 Impression/Plan Impression/Plan: # Acute Respiratory Failure - Pneumonia - Intubated - Failed previous extubation - Weaning Trial- lasted 6 hours yesterday - Vent Setting: RR 14, TV 350, O2 40%, PEEP 5 - RSBI = 40 - Pt consented for tracheotomy by mother over the phone #Metabolic - K replacement - Phos replacement - Folic Acid - Thiamine - Pt consented for PEG tube by mother over the phone #Heme/Onc - Hb 7.2 & Plt 121 - Transfuse if Hb <7 #Respiratory Alkalosis - pH 7.47 - pCO2 26.5 - HCO3 18.9 Visit type - Emergency Visit Emergency Visit: Yes ED Registration Date: 07/01/20 Care time: The patient presented to the Emergency Department on the above date and was hospitalized for further evaluation of their emergent condition. - New Patient This patient is new to me today: Yes Date on this admission: 07/24/20 - Critical Care Critical Care patient: Yes Total Critical Care Time (in minutes): 0 ATTENDING PHYSICIAN STATEMENT I saw and evaluated the patient. I reviewed the resident's note and discussed the case with the resident. I agree with the resident's findings and plan as documented. SUBJECTIVE: OBJECTIVE: ASSESSMENT AND PLAN:
[2020-07-23] MEDS ORDERED: ACETAMINOPHEN 325 MG TABLET (FP) PO ONE (20:04)
[2020-07-23] MEDS ORDERED: ACETAMINOPHEN 650 MG/20.3 ML ORAL SOLUTION (CUPS) PO ONE (20:08)
--- NOTE | 2020-07-23 21:33 | PN ---
Progress Note, Physician History of Present Illness: Pt awake Pt remains intubated - Current Medication List Current Medications: Active Medications Amino Acids (Prosource No Carb Liquid Pkt) 30 ml PO DAILY [facility] Last Admin: 07/23/20 09:52 Dose: 30 ml Documented by: Banana Based Medical Food (Banatrol Plus Powder Packet) 1 packet GT TID [facility] Last Admin: 07/23/20 14:55 Dose: 1 packet Documented by: Dextrose (D50w (Vial) -) 12.5 gm IVPUSH PRN PRN PRN Reason: HYPOGLYCEMIA Last Admin: 07/08/20 07:38 Dose: 12.5 gm Documented by: Folic Acid (Folic Acid -) 1 mg NGT DAILY [facility] Last Admin: 07/23/20 09:51 Dose: 1 mg Documented by: Heparin Sodium (Porcine) (Heparin -) 5,000 unit SQ BID [facility] Last Admin: 07/23/20 10:30 Dose: Not Given Documented by: Vasopressin 40 units/ Sodium (Chloride) 100 mls @ 5 mls/hr IVPB ASDIR [facility]; Protocol Last Titration: 07/23/20 12:00 Dose: 0 units/hr, 0 mls/hr Documented by: Piperacillin Sod/Tazobactam (Sod 3.375 gm/ Dextrose) 50 mls @ 100 mls/hr IVPB Q8H-IV [facility]; Protocol Last Admin: 07/23/20 17:55 Dose: 100 mls/hr Documented by: Morphine Sulfate (Morphine Sulfate) 1 mg IVPUSH Q6H PRN PRN Reason: PAIN LEVEL 6-10 Last Admin: 07/23/20 19:28 Dose: 1 mg Documented by: Multi-Ingredient Ointment (Zinc Oxide) 1 applic TP DAILY [facility] Last Admin: 07/23/20 09:52 Dose: 1 applic Documented by: Multivitamins/Minerals (Certavite-Antioxidant Liquid) 15 ml NGT DAILY [facility] Last Admin: 07/23/20 09:51 Dose: 15 ml Documented by: Nystatin (Mycostatin Ointment -) 1 applic TP DAILY [facility] Last Admin: 07/23/20 09:52 Dose: 1 applic Documented by: Potassium Chloride (Potassium Chloride Oral Liquid) 40 meq PO DAILY [facility] Last Admin: 07/23/20 09:52 Dose: 40 meq Documented by: Potassium Phos/Sodium Phos (Phos-Nak Packet -) 1 packet PO TID [facility] Last Admin: 07/23/20 14:55 Dose: 1 packet Documented by: Thiamine HCl (Vitamin B1 Injection -) 100 mg IVPB DAILY [facility] Last Admin: 07/23/20 09:51 Dose: 100 mg Documented by: - Objective Vital Signs: Vital Signs Temperature 97.4 F L 07/23/20 17:00 Pulse Rate 120 H 07/23/20 17:00 Respiratory Rate 26 H 07/23/20 20:00 Blood Pressure 87/75 L 07/23/20 17:00 O2 Sat by Pulse Oximetry (%) 97 07/23/20 20:00 Constitutional: Yes: Cachectic HENT: Yes: Other (Intubated) Cardiovascular: Yes: Tachycardia Respiratory: Yes: Diminished Gastrointestinal: Yes: WNL, Normal Bowel Sounds, Soft Labs: CBC, BMP 07/23/20 05:30 07/23/20 05:30 INR, PTT INR 1.46 (0.83-1.09) H 07/21/20 06:00 Fibrinogen 344.0 mg/dL (238-498) 07/21/20 06:00 Problem List - Problems (1) Respiratory failure Assessment/Plan: Acute on chronic respiratory failure Multifactorial RLL infiltrates ?Asp pneumonia Cont IV Zosyn Weaning trials Pt on pressors(low dose) Code(s): J96.90 - RESPIRATORY FAILURE, UNSP, UNSP W HYPOXIA OR HYPERCAPNIA (2) Sepsis Assessment/Plan: Lactic acidosis Cont IVF Cont IV Zosyn Pt on pressor UTI vs Aspiration pneumonia Blood culture/urine culture negative to date Repeat CXR not much change Code(s): A41.9 - SEPSIS, UNSPECIFIED ORGANISM Qualifiers: Sepsis type: sepsis due to unspecified organism Sepsis acute organ dysfunction status: unspecified Qualified Code(s): A41.9 - Sepsis, unspecified organism (3) Anemia Assessment/Plan: Monitor H/H S/p transfusion PRBC's H/H improved Code(s): D64.9 - ANEMIA, UNSPECIFIED (4) At risk for electrolyte imbalance Assessment/Plan: Electrolytes improved Cont to monitor Code(s): Z91.89 - OTH PERSONAL RISK FACTORS, NOT ELSEWHERE CLASSIFIED (5) SBO (small bowel obstruction) Assessment/Plan: Surgical consult noted Cont NPO Cont IVF Monitor serial abdominal xrays Monitor hypoglycemia CT scan abd showed probable anasacra/ascites Pt now on enteral feeds Code(s): K56.609 - UNSP INTESTNL OBST, UNSP TO PARTIAL VERSUS COMPLETE OBST (6) Liver cirrhosis, alcoholic Assessment/Plan: Cont to monitor Poor prognosis Code(s): K70.30 - ALCOHOLIC CIRRHOSIS OF LIVER WITHOUT ASCITES (7) Hypoalbuminemia Code(s): E88.09 - OTH DISORDERS OF PLASMA-PROTEIN METABOLISM, NEC (8) Substance abuse Assessment/Plan: Psych consult ?Competency Code(s): F19.10 - OTHER PSYCHOACTIVE SUBSTANCE ABUSE, UNCOMPLICATED (9) Cachexia Assessment/Plan: Due to severe protein malnutrition Code(s): R64 - CACHEXIA (10) Severe malnutrition Code(s): E43 - UNSPECIFIED SEVERE PROTEIN-CALORIE MALNUTRITION (11) Sacral ulcer Assessment/Plan: Surgical consult noted Cont wound care No surgical intervention at this time Code(s): L98.429 - NON-PRESSURE CHRONIC ULCER OF BACK WITH UNSPECIFIED SEVERITY
[2020-07-23] MEDS ORDERED: LORazepam 2 MG/ML SDV VIAL ONE (22:48)
[2020-07-23] MEDS ORDERED: LORazepam 2 MG/ML SDV VIAL IVPUSH ONE (22:58)
[2020-07-24 00:25] LABS: BASO % 0.6 % (0-2.0); EOS % 1.3 % (0-4.5); HEMATOCRIT 18.9 % (32.4-45.2); LYMPH % 7.1 % (8-40); MCH 30.2 pg (25.7-33.7); MCHC 34.5 g/dl (32.0-36.0); MEAN CELL VOLUME 87.7 fl (80-96); MEAN PLT VOLUME 8.6 fl (7.5-11.1); MONO % 7.3 % (3.8-10.2); NEUT % 83.7 % (42.8-82.8); PLATELET COUNT 137 K/MM3 (134-434); RBC 2.15 M/mm3 (3.60-5.2); RDW 20.1 % (11.6-15.6); WHITE BLOOD COUNT 5.3 K/mm3 (4.0-10.0)
[2020-07-24 00:28] LABS: HEMOGLOBIN 6.5 GM/dL (10.7-15.3)
[2020-07-24] MEDS ORDERED: PIPERACILLIN/TAZOBACTAM 3.375 GM VIAL IVPB ONE ×3 (01:50→17:14)
[2020-07-24] MEDS ORDERED: DEXTROSE 5%-WATER - 50 ML IVPB ONE ×3 (01:50→17:14)
[2020-07-24] MEDS: PIPERACILLIN/TAZOB 3.375 GM 3.375 GM in DEXTROSE 5%-WATER - 50 ML IVPB SCH ×3 (01:53→17:18)
[2020-07-24] MEDS ORDERED: ACETAMINOPHEN 1000 MG/100 ML VIAL (NON FORMULARY) IVPB ONE ×4 (02:00→23:13)
[2020-07-24 02:57] LABS: EPI CELLS 3 /uL (0-25.1); HYALINE CASTS 2 /uL (0-3.1); PH,URINE 5.5 (5.0-8.0); URINE APPEARANCE TURBID; URINE BACTERIA 2900 /uL (0-1359); URINE BILIRUBIN NEGATIVE (NEGATIVE); URINE COLOR DK YELLOW; URINE GLUCOSE (UA) NEGATIVE (NEGATIVE); URINE KETONE NEGATIVE (NEGATIVE); URINE LEUK ESTERASE 3+ (NEGATIVE); URINE NITRITE POSITIVE (NEGATIVE); URINE PROTEIN 1+ (NEGATIVE); URINE UROBILINOGEN 0.2 mg/dL (0.2-1.0); URINE WBC 1786 /uL (0-25.8)
[2020-07-24 02:59] LABS: ALBUMIN 1.1 g/dl (3.4-5.0); BILIRUBIN,TOTAL 0.4 mg/dL (0.2-1); CREATININE 0.2 mg/dL (0.55-1.3); TOT PROT 3.8 g/dl (6.4-8.2)
[2020-07-24 03:03] LABS: BLOOD UREA NITROGEN 21.2 mg/dL (7-18)
[2020-07-24 03:06] LABS: CALCIUM 6.5 mg/dL (8.5-10.1)
[2020-07-24] MEDS ORDERED: VANCOMYCIN 1 GM in D5W (PRE-DOCKED) 1,000 MG/250 ML IVPB ONE (05:00)
[2020-07-24] MEDS: VANCOMYCIN 500 MG in DEXTROSE 5%-WATER 100 ML IVPB SCH ×3 (05:25→17:43)
[2020-07-24] MEDS: NAPH,MB-DB/K PH,MBDB POWDER PACKET PO SCH ×3 (05:25→21:34)
[2020-07-24] MEDS: BANATROL PLUS POWDER PACKET GT SCH ×3 (05:25→21:34)
[2020-07-24] MEDS ORDERED: LORazepam 2 MG/ML SDV VIAL IVPUSH ONE (05:46)
[2020-07-24] MEDS ORDERED: LORazepam 2 MG/ML SDV VIAL ONE (05:47)
[2020-07-24] MEDS ORDERED: DEXMEDETOMIDINE HCL 200 MCG in SODIUM CHLORIDE 48 ML IVPB SCH (06:00)
[2020-07-24 08:57] LABS: MAGNESIUM 1.9 mg/dL (1.8-2.4); PHOSPHOROUS 2.9 mg/dL (2.5-4.9)
[2020-07-24] MEDS ORDERED: PT OWN MED DRAWER 7, Y5N ONE ×6 (09:04→20:20)
[2020-07-24 09:07] LABS: HEMATOCRIT 26.8 % (32.4-45.2); HEMOGLOBIN 9.2 GM/dL (10.7-15.3); MCH 30.1 pg (25.7-33.7); MCHC 34.4 g/dl (32.0-36.0); MEAN CELL VOLUME 87.5 fl (80-96); MEAN PLT VOLUME 8.7 fl (7.5-11.1); PLATELET COUNT 200 K/MM3 (134-434); RBC 3.06 M/mm3 (3.60-5.2); RDW 16.8 % (11.6-15.6); WHITE BLOOD COUNT 8.2 K/mm3 (4.0-10.0)
[2020-07-24] MEDS: MULTIVIT-MINERALS ORAL LIQUID NGT SCH (09:15)
[2020-07-24] MEDS: FOLIC ACID 1 MG TABLET (FP) NGT SCH (09:16)
[2020-07-24] MEDS: AMINO ACIDS/PROTEIN HYDROLYS 30 ML LIQUID.PKT PO SCH (09:17)
[2020-07-24] MEDS: POTASSIUM CHLORIDE ORAL LIQUID 20 MEQ/15 ML PO SCH (09:18)
[2020-07-24] MEDS: THIAMINE HCL 200 MG/2 ML VIAL IVPB SCH (09:19)
[2020-07-24 09:44] LABS: INR 1.55 (0.83-1.09); PROTHROMBIN TIME (PATIENT) 18.4 SEC (9.7-13.0)
[2020-07-24 09:47] LABS: ACTIVATED PTT 29.8 SECONDS (25.2-36.5)
[2020-07-24] MEDS: HEPARIN NA (PORCINE) 5,000 UNITS/ML 1ML VIAL SQ SCH (10:15)
[2020-07-24] MEDS: ZINC OXIDE 20% TOPICAL OINTMENT 30 GM TUBE TP SCH (10:18)
[2020-07-24] MEDS: NYSTATIN 100000 UNIT/GM TOPICAL OINTMENT 15 GM TUBE TP SCH (10:48)
[2020-07-24] MEDS: MORPHINE SULFATE 2 MG/ML VIAL IVPUSH PRN ×2 (11:31→23:58)
[2020-07-24] MEDS ORDERED: PHYTONADIONE 10 MG/1 ML AMP IVPB ONE (12:00)
--- NOTE | 2020-07-24 12:01 | PN ---
Progress Note, Physician - Current Medication List Current Medications: 35 yo female with PMH of cachexia 2/2 to eating do, cirrhosis, alcohol/heroin abuse. Pt is resting comfortably, following commands, able to communicate thru writing. Active Medications Amino Acids (Prosource No Carb Liquid Pkt) 30 ml PO DAILY [facility] Last Admin: 07/24/20 09:17 Dose: 30 ml Documented by: Banana Based Medical Food (Banatrol Plus Powder Packet) 1 packet GT TID [facility] Last Admin: 07/24/20 05:25 Dose: 1 packet Documented by: Dextrose (D50w (Vial) -) 12.5 gm IVPUSH PRN PRN PRN Reason: HYPOGLYCEMIA Last Admin: 07/08/20 07:38 Dose: 12.5 gm Documented by: Folic Acid (Folic Acid -) 1 mg NGT DAILY [facility] Last Admin: 07/24/20 09:16 Dose: 1 mg Documented by: Heparin Sodium (Porcine) (Heparin -) 5,000 unit SQ BID [facility] Last Admin: 07/24/20 10:15 Dose: 5,000 unit Documented by: Vasopressin 40 units/ Sodium (Chloride) 100 mls @ 5 mls/hr IVPB ASDIR [facility]; Protocol Last Titration: 07/23/20 12:00 Dose: 0 units/hr, 0 mls/hr Documented by: Piperacillin Sod/Tazobactam (Sod 3.375 gm/ Dextrose) 50 mls @ 100 mls/hr IVPB Q8H-IV [facility]; Protocol Last Admin: 07/24/20 09:18 Dose: 100 mls/hr Documented by: Vancomycin HCl 500 mg/ (Dextrose) 100 mls @ 100 mls/hr IVPB Q8H-IV [facility] Stop: 07/24/20 18:59 Last Admin: 07/24/20 05:25 Dose: 100 mls/hr Documented by: Dexmedetomidine HCl 200 mcg/ (Sodium Chloride) 50 mls @ 1.54 mls/hr IVPB TITR [facility] Stop: 07/25/20 05:59 Last Admin: 07/24/20 10:13 Dose: 0.7 mcg/kg/hr, 5.39 mls/hr Documented by: Morphine Sulfate (Morphine Sulfate) 1 mg IVPUSH Q6H PRN PRN Reason: PAIN LEVEL 6-10 Last Admin: 07/24/20 11:31 Dose: 1 mg Documented by: Multi-Ingredient Ointment (Zinc Oxide) 1 applic TP DAILY [facility] Last Admin: 07/24/20 10:18 Dose: 1 applic Documented by: Multivitamins/Minerals (Certavite-Antioxidant Liquid) 15 ml NGT DAILY [facility] Last Admin: 07/24/20 09:15 Dose: 15 ml Documented by: Phytonadione (Aqua Mephyton Injection -) 10 mg IVPB ONCE ONE Stop: 07/24/20 12:01 Potassium Chloride (Potassium Chloride Oral Liquid) 40 meq PO DAILY [facility] Last Admin: 07/24/20 09:18 Dose: 40 meq Documented by: Potassium Phos/Sodium Phos (Phos-Nak Packet -) 1 packet PO TID [facility] Last Admin: 07/24/20 05:25 Dose: 1 packet Documented by: Thiamine HCl (Vitamin B1 Injection -) 100 mg IVPB DAILY [facility] Last Admin: 07/24/20 09:19 Dose: 100 mg Documented by: Vancomycin HCl (Vancomycin (Pre-Docked)) 1,000 mg IVPB ONCE ONE; Protocol Stop: 07/24/20 05:01 - Objective Vital Signs: Vital Signs Temperature 100.0 F H 07/24/20 11:00 Pulse Rate 100 H 07/24/20 11:00 Respiratory Rate 20 07/24/20 11:00 Blood Pressure 84/53 L 07/24/20 11:00 O2 Sat by Pulse Oximetry (%) 99 07/24/20 11:00 Labs: CBC, BMP 07/24/20 07:50 07/24/20 02:15 INR, PTT INR 1.55 (0.83-1.09) H 07/24/20 08:55 Fibrinogen 344.0 mg/dL (238-498) 07/21/20 06:00 ATTENDING PHYSICIAN STATEMENT I saw and evaluated the patient. I reviewed the resident's note and discussed the case with the resident. I agree with the resident's findings and plan as documented. SUBJECTIVE: OBJECTIVE: ASSESSMENT AND PLAN:
--- NOTE | 2020-07-24 12:03 | PN ---
Physical Exam: SUBJECTIVE: 35 yo female with PMH of eating disorder, cachexia, alcohol abuse, heroin, cirrhosis, htn, asthma. Patient seen and examined at bedside. Pt intubated, alert, able to follow commands, able to communicate thru writing but unable to answer questions due to fatigue when writing. OBJECTIVE: Vital Signs Period Temp Pulse Resp BP Sys/Campbell Pulse Ox Last 24 Hr 97.4 F-100.8 F 100-138 15-28 74-101/51-78 92-100 Vent Setting:RR 14, TV 350, FiO2 40%, PEEP 5 GENERAL: The patient is awake, alert, and not oriented, in no acute distress. HEAD: Normal with no signs of trauma, temporal wasting, intubated, NG tube, EYES: PERRL, extraocular movements intact, sclera anicteric, conjunctiva clear. No ptosis. ENT: Ears normal, nares patent, oropharynx clear without exudates, moist mucous membranes. NECK: Trachea midline, full range of motion, supple. LUNGS: Breath sounds diminished on right basilar, crackles on right basilar, clear to auscultation bilaterally, no wheezes, no accessory muscle use. HEART: tachycardic, regular rhythm, S1, S2 without murmur, rub or gallop. ABDOMEN: thin, Soft, nontender, nondistended, normoactive bowel sounds, no guarding, no rebound, no hepatosplenomegaly, no masses. EXTREMITIES: 2+ pulses, warm, well-perfused, no edema. NEUROLOGICAL: Cranial nerves II through XII grossly intact, gait not observed. PSYCH: Normal mood, normal affect. SKIN: Warm, dry, normal turgor, sacral ulcer (unstagable) Laboratory Results - last 24 hr Hb 6.5 LA 6.5 UA: (+) LE, (+) Bacteria X-Ray- shows ET tube too proximal Active Medications Generic Name Dose Route Start Last Admin Trade Name Freq PRN Reason Stop Dose Admin Amino Acids 30 ml 07/19/20 10:00 07/24/20 09:17 Prosource No Carb Liquid Pkt PO 30 ml DAILY RAUL Administration Banana Based Medical Food 1 packet 07/10/20 22:00 07/24/20 05:25 Banatrol Plus Powder Packet GT 1 packet TID RAUL Administration Dextrose 12.5 gm 07/08/20 07:08 07/08/20 07:38 D50w (Vial) - IVPUSH 12.5 gm PRN PRN Administration HYPOGLYCEMIA Folic Acid 1 mg 07/06/20 10:00 07/24/20 09:16 Folic Acid - NGT 1 mg DAILY RAUL Administration Heparin Sodium (Porcine) 5,000 unit 07/20/20 10:00 07/24/20 10:15 Heparin - SQ 5,000 unit BID RAUL Administration Vasopressin 40 units/ Sodium 100 mls @ 5 mls/hr 07/08/20 07:00 07/23/20 12:00 Chloride IVPB 0 units/hr ASDIR RAUL 0 mls/hr Titration Protocol 2 UNITS/HR Piperacillin Sod/Tazobactam 50 mls @ 100 mls/hr 07/20/20 13:30 07/24/20 09:18 Sod 3.375 gm/ Dextrose IVPB 100 mls/hr Q8H-IV RAUL Administration Protocol Vancomycin HCl 500 mg/ 100 mls @ 100 mls/hr 07/24/20 04:30 07/24/20 05:25 Dextrose IVPB 07/24/20 18:59 100 mls/hr Q8H-IV RAUL Administration Dexmedetomidine HCl 200 mcg/ 50 mls @ 1.54 mls/hr 07/24/20 06:00 07/24/20 10:13 Sodium Chloride IVPB 07/25/20 05:59 0.7 mcg/kg/hr TITR RAUL 5.39 mls/hr Administration 0.2 MCG/KG/HR Morphine Sulfate 1 mg 07/21/20 05:22 07/24/20 11:31 Morphine Sulfate IVPUSH 1 mg Q6H PRN Administration PAIN LEVEL 6-10 Multi-Ingredient Ointment 1 applic 07/19/20 13:30 07/24/20 10:18 Zinc Oxide TP 1 applic DAILY RAUL Administration Multivitamins/Minerals 15 ml 07/06/20 11:45 07/24/20 09:15 Certavite-Antioxidant Liquid NGT 15 ml DAILY RAUL Administration Potassium Chloride 40 meq 07/17/20 12:30 07/24/20 09:18 Potassium Chloride Oral Liquid PO 40 meq DAILY RAUL Administration Potassium Phos/Sodium Phos 1 packet 07/09/20 14:00 07/24/20 05:25 Phos-Nak Packet - PO 1 packet TID RAUL Administration Thiamine HCl 100 mg 07/11/20 12:45 07/24/20 09:19 Vitamin B1 Injection - IVPB 100 mg DAILY RAUL Administration Vancomycin HCl 1,000 mg 07/24/20 05:00 Vancomycin (Pre-Docked) IVPB 07/24/20 05:01 ONCE ONE Protocol ASSESSMENT/PLAN: #Sepsis - Pneumonia - CXR shows left lower lobe infiltrate - UTI- - UA shows + LE, + Bacteria - Central line changed on right IJ - Urine/Blood cultures - Vanc/Zosyn # Acute Respiratory Failure - Intubated, failed previous extubation - Vent Setting: RR 14, TV 350, O2 40%, PEEP 5 - Pt consented for tracheotomy by mother over the phone - Consulted Dr Gill for tracheotomy, currently waiting on return call #Metabolic - K replacement - Phos replacement - Folic Acid - Thiamine - Pt consented for PEG tube by mother over the phone - Consulted Dr. Barkley for PEG, he will access the patient #Heme/Onc - Hb 6.5, transfused 1 L blood - Plt 121 Visit type - Emergency Visit Emergency Visit: Yes ED Registration Date: 07/01/20 Care time: The patient presented to the Emergency Department on the above date and was hospitalized for further evaluation of their emergent condition. - New Patient This patient is new to me today: No - Critical Care Critical Care patient: Yes Total Critical Care Time (in minutes): 30 Critical Care Statement: The care of this patient involved high complexity decis ion making to prevent further life threatening deterioration of the patient's condition and/or to evaluate & treat vital organ system(s) failure or risk of failure. ATTENDING PHYSICIAN STATEMENT I saw and evaluated the patient. I reviewed the resident's note and discussed the case with the resident. I agree with the resident's findings and plan as documented. SUBJECTIVE: OBJECTIVE: ASSESSMENT AND PLAN:
--- NOTE | 2020-07-24 13:50 | PN ---
Teaching Attending Note Name of Resident: Masha Eduardo ATTENDING PHYSICIAN STATEMENT I saw and evaluated the patient. I reviewed the resident's note and discussed the case with the resident. I agree with the resident's findings and plan as documented. SUBJECTIVE: Patient seen and examined in the ICU. Intubated. AC Mode of vent, 40% FiO2 / PEEP 5. Wasted. More lethargic today. Low dose Vasopressin. OBJECTIVE: Intake & Output 07/21/20 07/22/20 07/23/20 07/24/20 23:59 23:59 23:59 23:59 Intake Total 2095.4 1823.8 1423.4 1291 Output Total 1380 560 500 520 Balance 715.4 1263.8 923.4 771 Weight 63 lb 4.363 oz 63 lb 4.363 oz 63 lb 4.363 oz 67 lb 14.4 oz Last Vital Signs Temp Pulse Resp BP Pulse Ox 100.6 F H 116 H 25 H 81/67 L 100 07/24/20 13:03 07/24/20 13:03 07/24/20 13:03 07/24/20 13:03 07/24/20 13:03 Active Medications Amino Acids (Prosource No Carb Liquid Pkt) 30 ml PO DAILY [facility] Last Admin: 07/24/20 09:17 Dose: 30 ml Documented by: Banana Based Medical Food (Banatrol Plus Powder Packet) 1 packet GT TID [facility] Last Admin: 07/24/20 05:25 Dose: 1 packet Documented by: Dextrose (D50w (Vial) -) 12.5 gm IVPUSH PRN PRN PRN Reason: HYPOGLYCEMIA Last Admin: 07/08/20 07:38 Dose: 12.5 gm Documented by: Folic Acid (Folic Acid -) 1 mg NGT DAILY [facility] Last Admin: 07/24/20 09:16 Dose: 1 mg Documented by: Heparin Sodium (Porcine) (Heparin -) 5,000 unit SQ BID [facility] Last Admin: 07/24/20 10:15 Dose: 5,000 unit Documented by: Vasopressin 40 units/ Sodium (Chloride) 100 mls @ 5 mls/hr IVPB ASDIR [facility]; Protocol Last Titration: 07/23/20 12:00 Dose: 0 units/hr, 0 mls/hr Documented by: Piperacillin Sod/Tazobactam (Sod 3.375 gm/ Dextrose) 50 mls @ 100 mls/hr IVPB Q8H-IV [facility]; Protocol Last Admin: 07/24/20 09:18 Dose: 100 mls/hr Documented by: Vancomycin HCl 500 mg/ (Dextrose) 100 mls @ 100 mls/hr IVPB Q8H-IV RAUL Stop: 07/24/20 18:59 Last Admin: 07/24/20 12:30 Dose: 100 mls/hr Documented by: Dexmedetomidine HCl 200 mcg/ (Sodium Chloride) 50 mls @ 1.54 mls/hr IVPB TITR RAUL Stop: 07/25/20 05:59 Last Admin: 07/24/20 10:13 Dose: 0.7 mcg/kg/hr, 5.39 mls/hr Documented by: Morphine Sulfate (Morphine Sulfate) 1 mg IVPUSH Q6H PRN PRN Reason: PAIN LEVEL 6-10 Last Admin: 07/24/20 11:31 Dose: 1 mg Documented by: Multi-Ingredient Ointment (Zinc Oxide) 1 applic TP DAILY [facility] Last Admin: 07/24/20 10:18 Dose: 1 applic Documented by: Multivitamins/Minerals (Certavite-Antioxidant Liquid) 15 ml NGT DAILY [facility] Last Admin: 07/24/20 09:15 Dose: 15 ml Documented by: Potassium Chloride (Potassium Chloride Oral Liquid) 40 meq PO DAILY [facility] Last Admin: 07/24/20 09:18 Dose: 40 meq Documented by: Potassium Phos/Sodium Phos (Phos-Nak Packet -) 1 packet PO TID [facility] Last Admin: 07/24/20 05:25 Dose: 1 packet Documented by: Thiamine HCl (Vitamin B1 Injection -) 100 mg IVPB DAILY [facility] Last Admin: 07/24/20 09:19 Dose: 100 mg Documented by: Vancomycin HCl (Vancomycin (Pre-Docked)) 1,000 mg IVPB ONCE ONE; Protocol Stop: 07/24/20 05:01 Gen: intubated, Lethargic, cachectic Heart: RRR Lung: Vented, scattered rhonchi Abd: soft, nontender, +ascites Ext: no edema Laboratory Results - last 24 hr 07/23/20 07/24/20 07/24/20 15:44 00:00 00:00 WBC 5.3 RBC 2.15 L Hgb 6.5 L* Hct 18.9 L MCV 87.7 MCH 30.2 MCHC 34.5 RDW 20.1 H Plt Count 137 MPV 8.6 Absolute Neuts (auto) 4.4 Neutrophils % 83.7 H Lymphocytes % 7.1 L Monocytes % 7.3 Eosinophils % 1.3 Basophils % 0.6 Nucleated RBC % 0 PT with INR INR PTT (Actin FS) Sodium Cancelled Potassium Cancelled Chloride Cancelled Carbon Dioxide Cancelled Anion Gap Cancelled BUN Cancelled Creatinine Cancelled Est GFR (CKD-EPI)AfAm Cancelled Est GFR (CKD-EPI)NonAf Cancelled POC Glucometer 76 Random Glucose Cancelled Lactic Acid Calcium Cancelled Phosphorus Cancelled Magnesium Cancelled Total Bilirubin AST ALT Alkaline Phosphatase Total Protein Albumin Urine Color Urine Appearance Urine pH Ur Specific [place] Urine Protein Urine Glucose (UA) Urine Ketones Urine Blood Urine Nitrite Urine Bilirubin Urine Urobilinogen Ur Leukocyte Esterase Urine WBC (Auto) Urine Casts (Auto) U Epithel Cells (Auto) Urine Bacteria (Auto) Blood Type Antibody Screen Crossmatch 07/24/20 07/24/20 07/24/20 01:31 01:31 02:15 WBC RBC Hgb Hct MCV MCH MCHC RDW Plt Count MPV Absolute Neuts (auto) Neutrophils % Lymphocytes % Monocytes % Eosinophils % Basophils % Nucleated RBC % PT with INR INR PTT (Actin FS) Sodium 139 Potassium 4.0 Chloride 111 H Carbon Dioxide 24 Anion Gap 5 L BUN 21.2 H Creatinine 0.2 L Est GFR (CKD-EPI)AfAm 196.46 Est GFR (CKD-EPI)NonAf 169.51 POC Glucometer Random Glucose 97 Lactic Acid Calcium 6.5 L* Phosphorus 2.9 Magnesium 1.9 Total Bilirubin 0.4 AST 24 ALT 30 Alkaline Phosphatase 183 H Total Protein 3.8 L Albumin 1.1 L Urine Color Dk yellow Urine Appearance Turbid Urine pH 5.5 D Ur Specific [place] 1.028 Urine Protein 1+ H Urine Glucose (UA) Negative Urine Ketones Negative Urine Blood 3+ H Urine Nitrite Positive H Urine Bilirubin Negative Urine Urobilinogen 0.2 Ur Leukocyte Esterase 3+ H Urine WBC (Auto) 1786 Urine Casts (Auto) 2 U Epithel Cells (Auto) 3 Urine Bacteria (Auto) 2900 Blood Type O POSITIVE Antibody Screen Negative Crossmatch See Detail 07/24/20 07/24/20 07/24/20 02:15 06:21 07:50 WBC 8.2 RBC 3.06 L Hgb 9.2 L Hct 26.8 L D MCV 87.5 MCH 30.1 MCHC 34.4 RDW 16.8 H Plt Count 200 D MPV 8.7 Absolute Neuts (auto) Neutrophils % Lymphocytes % Monocytes % Eosinophils % Basophils % Nucleated RBC % PT with INR INR PTT (Actin FS) Sodium Potassium Chloride Carbon Dioxide Anion Gap BUN Creatinine Est GFR (CKD-EPI)AfAm Est GFR (CKD-EPI)NonAf POC Glucometer 130 Random Glucose Lactic Acid 1.6 Calcium Phosphorus Magnesium Total Bilirubin AST ALT Alkaline Phosphatase Total Protein Albumin Urine Color Urine Appearance Urine pH Ur Specific [place] Urine Protein Urine Glucose (UA) Urine Ketones Urine Blood Urine Nitrite Urine Bilirubin Urine Urobilinogen Ur Leukocyte Esterase Urine WBC (Auto) Urine Casts (Auto) U Epithel Cells (Auto) Urine Bacteria (Auto) Blood Type Antibody Screen Crossmatch 07/24/20 07/24/20 08:55 11:08 WBC RBC Hgb Hct MCV MCH MCHC RDW Plt Count MPV Absolute Neuts (auto) Neutrophils % Lymphocytes % Monocytes % Eosinophils % Basophils % Nucleated RBC % PT with INR 18.40 H INR 1.55 H PTT (Actin FS) 29.8 Sodium Potassium Chloride Carbon Dioxide Anion Gap BUN Creatinine Est GFR (CKD-EPI)AfAm Est GFR (CKD-EPI)NonAf POC Glucometer 91 Random Glucose Lactic Acid Calcium Phosphorus Magnesium Total Bilirubin AST ALT Alkaline Phosphatase Total Protein Albumin Urine Color Urine Appearance Urine pH Ur Specific [place] Urine Protein Urine Glucose (UA) Urine Ketones Urine Blood Urine Nitrite Urine Bilirubin Urine Urobilinogen Ur Leukocyte Esterase Urine WBC (Auto) Urine Casts (Auto) U Epithel Cells (Auto) Urine Bacteria (Auto) Blood Type Antibody Screen Crossmatch ASSESSMENT AND PLAN: Acute Hypoxic Respiratory Failure Pneumonia likely Aspiration UTI Sepsis Hyponatremia Small Bowel Obstruction Alcohol/Heroin Abuse Anemia/Thrombocytopenia Failure to Thrive Severe Protein Calorie Malnutrition Refeeding Syndrome (?) Fistula - monitor urine output, creatinine - replete lytes - ABX per ID - titrate pressors to maintain MAP >65 - titrate FiO2 to keep SpO2 >90% - titrate enteral feeds to goal - DVT/GI prophylaxis - continue ICU monitoring - Mother has apparently agreed to tracheostomy. Required due to severe malnutrition and deconditioning : will schedule ЕЛЕНА. Dr Babb Critical care time spent in reviewing chart, evaluating patient and formulating plan 35 min
--- NOTE | 2020-07-24 14:20 | PN ---
Progress Note, Physician History of Present Illness: Pt seen and examined at bedside. She remains intubated. - Current Medication List Current Medications: Active Medications Amino Acids (Prosource No Carb Liquid Pkt) 30 ml PO DAILY RAUL Last Admin: 07/24/20 09:17 Dose: 30 ml Documented by: Banana Based Medical Food (Banatrol Plus Powder Packet) 1 packet GT TID RAUL Last Admin: 07/24/20 05:25 Dose: 1 packet Documented by: Dextrose (D50w (Vial) -) 12.5 gm IVPUSH PRN PRN PRN Reason: HYPOGLYCEMIA Last Admin: 07/08/20 07:38 Dose: 12.5 gm Documented by: Folic Acid (Folic Acid -) 1 mg NGT DAILY RAUL Last Admin: 07/24/20 09:16 Dose: 1 mg Documented by: Heparin Sodium (Porcine) (Heparin -) 5,000 unit SQ BID RAUL Last Admin: 07/24/20 10:15 Dose: 5,000 unit Documented by: Vasopressin 40 units/ Sodium (Chloride) 100 mls @ 5 mls/hr IVPB ASDIR RAUL; Protocol Last Titration: 07/23/20 12:00 Dose: 0 units/hr, 0 mls/hr Documented by: Piperacillin Sod/Tazobactam (Sod 3.375 gm/ Dextrose) 50 mls @ 100 mls/hr IVPB Q8H-IV RAUL; Protocol Last Admin: 07/24/20 09:18 Dose: 100 mls/hr Documented by: Vancomycin HCl 500 mg/ (Dextrose) 100 mls @ 100 mls/hr IVPB Q8H-IV RAUL Stop: 07/24/20 18:59 Last Admin: 07/24/20 12:30 Dose: 100 mls/hr Documented by: Dexmedetomidine HCl 200 mcg/ (Sodium Chloride) 50 mls @ 1.54 mls/hr IVPB TITR RAUL Stop: 07/25/20 05:59 Last Admin: 07/24/20 10:13 Dose: 0.7 mcg/kg/hr, 5.39 mls/hr Documented by: Morphine Sulfate (Morphine Sulfate) 1 mg IVPUSH Q6H PRN PRN Reason: PAIN LEVEL 6-10 Last Admin: 07/24/20 11:31 Dose: 1 mg Documented by: Multi-Ingredient Ointment (Zinc Oxide) 1 applic TP DAILY RAUL Last Admin: 07/24/20 10:18 Dose: 1 applic Documented by: Multivitamins/Minerals (Certavite-Antioxidant Liquid) 15 ml NGT DAILY [facility] Last Admin: 07/24/20 09:15 Dose: 15 ml Documented by: Potassium Chloride (Potassium Chloride Oral Liquid) 40 meq PO DAILY [facility] Last Admin: 07/24/20 09:18 Dose: 40 meq Documented by: Potassium Phos/Sodium Phos (Phos-Nak Packet -) 1 packet PO TID [facility] Last Admin: 07/24/20 05:25 Dose: 1 packet Documented by: Thiamine HCl (Vitamin B1 Injection -) 100 mg IVPB DAILY [facility] Last Admin: 07/24/20 09:19 Dose: 100 mg Documented by: Vancomycin HCl (Vancomycin (Pre-Docked)) 1,000 mg IVPB ONCE ONE; Protocol Stop: 07/24/20 05:01 - Objective Vital Signs: Vital Signs Temperature 100.6 F H 07/24/20 13:03 Pulse Rate 116 H 07/24/20 13:03 Respiratory Rate 25 H 07/24/20 13:03 Blood Pressure 81/67 L 07/24/20 13:03 O2 Sat by Pulse Oximetry (%) 100 07/24/20 13:03 Constitutional: Yes: Calm, Cachectic Eyes: Yes: Conjunctiva Clear HENT: Yes: Atraumatic Neck: Yes: Supple Cardiovascular: Yes: S1, S2 Respiratory: Yes: Mechanically Ventilated Gastrointestinal: Yes: Soft Genitourinary: Yes: Uribe Present Musculoskeletal: Yes: Muscle Weakness Neurological: Yes: Lethargy Labs: CBC, BMP 07/24/20 07:50 07/24/20 02:15 INR, PTT INR 1.55 (0.83-1.09) H 07/24/20 08:55 Fibrinogen 344.0 mg/dL (238-498) 07/21/20 06:00 Problem List - Problems (1) Hypoglycemia Code(s): E16.2 - HYPOGLYCEMIA, UNSPECIFIED (2) Sepsis Code(s): A41.9 - SEPSIS, UNSPECIFIED ORGANISM Qualifiers: Sepsis type: sepsis due to unspecified organism Sepsis acute organ dysfunction status: unspecified Qualified Code(s): A41.9 - Sepsis, unspecified organism (3) Hypoalbuminemia Code(s): E88.09 - OTH DISORDERS OF PLASMA-PROTEIN METABOLISM, NEC (4) Hyponatremia Code(s): E87.1 - HYPO-OSMOLALITY AND HYPONATREMIA Assessment/Plan Current Medications Generic Name Dose Route Start Last Admin Trade Name Freq PRN Reason Stop Dose Admin Amino Acids 30 ml 07/19/20 10:00 07/24/20 09:17 Prosource No Carb Liquid Pkt PO 30 ml DAILY RAUL Administration Banana Based Medical Food 1 packet 07/10/20 22:00 07/24/20 05:25 Banatrol Plus Powder Packet GT 1 packet TID RAUL Administration Dextrose 12.5 gm 07/08/20 07:08 07/08/20 07:38 D50w (Vial) - IVPUSH 12.5 gm PRN PRN Administration HYPOGLYCEMIA Folic Acid 1 mg 07/06/20 10:00 07/24/20 09:16 Folic Acid - NGT 1 mg DAILY RAUL Administration Heparin Sodium (Porcine) 5,000 unit 07/20/20 10:00 07/24/20 10:15 Heparin - SQ 5,000 unit BID RAUL Administration Vasopressin 40 units/ Sodium 100 mls @ 5 mls/hr 07/08/20 07:00 07/23/20 12:00 Chloride IVPB 0 units/hr ASDIR RAUL 0 mls/hr Titration Protocol 2 UNITS/HR Piperacillin Sod/Tazobactam 50 mls @ 100 mls/hr 07/20/20 13:30 07/24/20 09:18 Sod 3.375 gm/ Dextrose IVPB 100 mls/hr Q8H-IV RAUL Administration Protocol Vancomycin HCl 500 mg/ 100 mls @ 100 mls/hr 07/24/20 04:30 07/24/20 12:30 Dextrose IVPB 07/24/20 18:59 100 mls/hr Q8H-IV RAUL Administration Dexmedetomidine HCl 200 mcg/ 50 mls @ 1.54 mls/hr 07/24/20 06:00 07/24/20 10:13 Sodium Chloride IVPB 07/25/20 05:59 0.7 mcg/kg/hr TITR RAUL 5.39 mls/hr Administration 0.2 MCG/KG/HR Morphine Sulfate 1 mg 07/21/20 05:22 07/24/20 11:31 Morphine Sulfate IVPUSH 1 mg Q6H PRN Administration PAIN LEVEL 6-10 Multi-Ingredient Ointment 1 applic 07/19/20 13:30 07/24/20 10:18 Zinc Oxide TP 1 applic DAILY RAUL Administration Multivitamins/Minerals 15 ml 07/06/20 11:45 07/24/20 09:15 Certavite-Antioxidant Liquid NGT 15 ml DAILY RAUL Administration Potassium Chloride 40 meq 07/17/20 12:30 07/24/20 09:18 Potassium Chloride Oral Liquid PO 40 meq DAILY RAUL Administration Potassium Phos/Sodium Phos 1 packet 07/09/20 14:00 07/24/20 05:25 Phos-Nak Packet - PO 1 packet TID RAUL Administration Thiamine HCl 100 mg 07/11/20 12:45 07/24/20 09:19 Vitamin B1 Injection - IVPB 100 mg DAILY RAUL Administration Vancomycin HCl 1,000 mg 07/24/20 05:00 Vancomycin (Pre-Docked) IVPB 07/24/20 05:01 ONCE ONE Protocol Impression 1. azotemia 2. hyponatremia 3. hyperkalemia 4. hypotension 5. sepsis 6. sbo 7. uti 8. liver cirrhosis 9. hypoalbuminemia 10. etoh abuse 11. substance abuse 12. psoriasis 13. acute resp failure 14. malnutrition Plan - cont feeds - vent support - cont supplements - maintain map of 65 - discussed with ICU
--- NOTE | 2020-07-24 14:32 | PN ---
Progress Note, Physician History of Present Illness: continues to be intubated more lethargic on pressors still - Current Medication List Current Medications: Active Medications Amino Acids (Prosource No Carb Liquid Pkt) 30 ml PO DAILY [facility] Last Admin: 07/24/20 09:17 Dose: 30 ml Documented by: Banana Based Medical Food (Banatrol Plus Powder Packet) 1 packet GT TID [facility]UL Last Admin: 07/24/20 05:25 Dose: 1 packet Documented by: Dextrose (D50w (Vial) -) 12.5 gm IVPUSH PRN PRN PRN Reason: HYPOGLYCEMIA Last Admin: 07/08/20 07:38 Dose: 12.5 gm Documented by: Folic Acid (Folic Acid -) 1 mg NGT DAILY [facility] Last Admin: 07/24/20 09:16 Dose: 1 mg Documented by: Heparin Sodium (Porcine) (Heparin -) 5,000 unit SQ BID [facility] Last Admin: 07/24/20 10:15 Dose: 5,000 unit Documented by: Vasopressin 40 units/ Sodium (Chloride) 100 mls @ 5 mls/hr IVPB ASDIR RAUL; Protocol Last Titration: 07/23/20 12:00 Dose: 0 units/hr, 0 mls/hr Documented by: Piperacillin Sod/Tazobactam (Sod 3.375 gm/ Dextrose) 50 mls @ 100 mls/hr IVPB Q8H-IV RAUL; Protocol Last Admin: 07/24/20 09:18 Dose: 100 mls/hr Documented by: Vancomycin HCl 500 mg/ (Dextrose) 100 mls @ 100 mls/hr IVPB Q8H-IV RAUL Stop: 07/24/20 18:59 Last Admin: 07/24/20 12:30 Dose: 100 mls/hr Documented by: Dexmedetomidine HCl 200 mcg/ (Sodium Chloride) 50 mls @ 1.54 mls/hr IVPB TITR RAUL Stop: 07/25/20 05:59 Last Admin: 07/24/20 10:13 Dose: 0.7 mcg/kg/hr, 5.39 mls/hr Documented by: Morphine Sulfate (Morphine Sulfate) 1 mg IVPUSH Q6H PRN PRN Reason: PAIN LEVEL 6-10 Last Admin: 07/24/20 11:31 Dose: 1 mg Documented by: Multi-Ingredient Ointment (Zinc Oxide) 1 applic TP DAILY [facility] Last Admin: 07/24/20 10:18 Dose: 1 applic Documented by: Multivitamins/Minerals (Certavite-Antioxidant Liquid) 15 ml NGT DAILY [facility] Last Admin: 07/24/20 09:15 Dose: 15 ml Documented by: Potassium Chloride (Potassium Chloride Oral Liquid) 40 meq PO DAILY [facility] Last Admin: 07/24/20 09:18 Dose: 40 meq Documented by: Potassium Phos/Sodium Phos (Phos-Nak Packet -) 1 packet PO TID [facility] Last Admin: 07/24/20 05:25 Dose: 1 packet Documented by: Thiamine HCl (Vitamin B1 Injection -) 100 mg IVPB DAILY [facility] Last Admin: 07/24/20 09:19 Dose: 100 mg Documented by: Vancomycin HCl (Vancomycin (Pre-Docked)) 1,000 mg IVPB ONCE ONE; Protocol Stop: 07/24/20 05:01 - Objective Vital Signs: Vital Signs Temperature 100.3 F H 07/24/20 14:00 Pulse Rate 108 H 07/24/20 14:00 Respiratory Rate 34 H 07/24/20 14:00 Blood Pressure 89/69 L 07/24/20 14:00 O2 Sat by Pulse Oximetry (%) 100 07/24/20 14:00 Constitutional: Yes: Other Cardiovascular: Yes: Tachycardia, S1, S2 Respiratory: Yes: Intubated, Mechanically Ventilated Gastrointestinal: Yes: Normal Bowel Sounds, Soft Musculoskeletal: Yes: Other Extremities: Yes: WNL Neurological: Yes: Lethargy Labs: CBC, BMP 07/24/20 07:50 07/24/20 02:15 INR, PTT INR 1.55 (0.83-1.09) H 07/24/20 08:55 Fibrinogen 344.0 mg/dL (238-498) 07/21/20 06:00 Assessment/Plan Pneumonia likely Aspiration UTI Sepsis Hyponatremia SBO resolving Alcohol/Heroin Abuse Anemia Failure to Thrive Severe Protein Calorie Malnutrition uti sacral wounds plan continue abx nutrition as per icu vent mgmt repeat cx if needed close watch plan for trach after talking to mother cc 38 min
[2020-07-24] MEDS ORDERED: ACETAMINOPHEN INJECTION 100 ML IVPB ONE (16:29)
[2020-07-24 17:48] LABS: INR 1.52 (0.83-1.09)
[2020-07-24 17:51] LABS: ACTIVATED PTT 31.7 SECONDS (25.2-36.5)
[2020-07-24] MEDS: VASOPRESSIN 40 UNITS in SODIUM CHLORIDE 98 ML IVPB SCH (19:15)
--- NOTE | 2020-07-24 22:05 | PN ---
Progress Note, Physician History of Present Illness: Pt awake Pt remains intubated - Current Medication List Current Medications: Active Medications Amino Acids (Prosource No Carb Liquid Pkt) 30 ml PO DAILY [facility] Last Admin: 07/24/20 09:17 Dose: 30 ml Documented by: Banana Based Medical Food (Banatrol Plus Powder Packet) 1 packet GT TID [facility] Last Admin: 07/24/20 21:34 Dose: 1 packet Documented by: Dextrose (D50w (Vial) -) 12.5 gm IVPUSH PRN PRN PRN Reason: HYPOGLYCEMIA Last Admin: 07/08/20 07:38 Dose: 12.5 gm Documented by: Folic Acid (Folic Acid -) 1 mg NGT DAILY [facility] Last Admin: 07/24/20 09:16 Dose: 1 mg Documented by: Heparin Sodium (Porcine) (Heparin -) 5,000 unit SQ BID [facility] Last Admin: 07/24/20 10:15 Dose: 5,000 unit Documented by: Vasopressin 40 units/ Sodium (Chloride) 100 mls @ 5 mls/hr IVPB ASDIR [facility]; Protocol Last Admin: 07/24/20 19:15 Dose: Not Given Documented by: Piperacillin Sod/Tazobactam (Sod 3.375 gm/ Dextrose) 50 mls @ 100 mls/hr IVPB Q8H-IV [facility]; Protocol Last Admin: 07/24/20 17:18 Dose: 100 mls/hr Documented by: Dexmedetomidine HCl 200 mcg/ (Sodium Chloride) 50 mls @ 1.54 mls/hr IVPB TITR [facility] Stop: 07/25/20 05:59 Last Infusion: 07/24/20 16:13 Dose: 0.7 mcg/kg/hr, 5.39 mls/hr Documented by: Morphine Sulfate (Morphine Sulfate) 1 mg IVPUSH Q6H PRN PRN Reason: PAIN LEVEL 6-10 Last Admin: 07/24/20 11:31 Dose: 1 mg Documented by: Multi-Ingredient Ointment (Zinc Oxide) 1 applic TP DAILY [facility] Last Admin: 07/24/20 10:18 Dose: 1 applic Documented by: Multivitamins/Minerals (Certavite-Antioxidant Liquid) 15 ml NGT DAILY [facility] Last Admin: 07/24/20 09:15 Dose: 15 ml Documented by: Potassium Chloride (Potassium Chloride Oral Liquid) 40 meq PO DAILY [facility] Last Admin: 07/24/20 09:18 Dose: 40 meq Documented by: Potassium Phos/Sodium Phos (Phos-Nak Packet -) 1 packet PO TID [facility] Last Admin: 07/24/20 21:34 Dose: 1 packet Documented by: Thiamine HCl (Vitamin B1 Injection -) 100 mg IVPB DAILY [facility] Last Admin: 07/24/20 09:19 Dose: 100 mg Documented by: Vancomycin HCl (Vancomycin (Pre-Docked)) 1,000 mg IVPB ONCE ONE; Protocol Stop: 07/24/20 05:01 - Objective Vital Signs: Vital Signs Temperature 100.7 F H 07/24/20 18:24 Pulse Rate 122 H 07/24/20 18:24 Respiratory Rate 22 H 07/24/20 20:00 Blood Pressure 81/58 L 07/24/20 18:24 O2 Sat by Pulse Oximetry (%) 100 07/24/20 18:24 Cardiovascular: Yes: WNL, Regular Rate and Rhythm Respiratory: Yes: WNL, Regular, CTA Bilaterally Gastrointestinal: Yes: WNL, Normal Bowel Sounds, Soft Labs: CBC, BMP 07/24/20 07:50 07/24/20 02:15 INR, PTT INR 1.52 (0.83-1.09) H 07/24/20 15:50 Fibrinogen 344.0 mg/dL (238-498) 07/21/20 06:00 Problem List - Problems (1) Respiratory failure Assessment/Plan: Acute on chronic respiratory failure Multifactorial RLL infiltrates ?Asp pneumonia Cont IV Zosyn As per pulmonary mother has agreed to tracheostomy Pt on pressors(low dose) Code(s): J96.90 - RESPIRATORY FAILURE, UNSP, UNSP W HYPOXIA OR HYPERCAPNIA (2) Sepsis Assessment/Plan: Lactic acidosis Cont IVF Cont IV Zosyn Pt on pressor UTI vs Aspiration pneumonia Blood culture/urine culture negative to date Repeat CXR not much change Code(s): A41.9 - SEPSIS, UNSPECIFIED ORGANISM Qualifiers: Sepsis type: sepsis due to unspecified organism Sepsis acute organ dysfunction status: unspecified Qualified Code(s): A41.9 - Sepsis, unspecified organism (3) Anemia Assessment/Plan: Monitor H/H S/p transfusion PRBC's H/H improved Code(s): D64.9 - ANEMIA, UNSPECIFIED (4) At risk for electrolyte imbalance Assessment/Plan: Electrolytes improved Cont to monitor Code(s): Z91.89 - OT PERSONAL RISK FACTORS, NOT ELSEWHERE CLASSIFIED (5) SBO (small bowel obstruction) Assessment/Plan: Surgical consult noted Cont NPO Cont IVF Monitor serial abdominal xrays Monitor hypoglycemia CT scan abd showed probable anasacra/ascites Pt now on enteral feeds Code(s): K56.609 - UNSP INTESTNL OBST, UNSP TO PARTIAL VERSUS COMPLETE OBST (6) Liver cirrhosis, alcoholic Assessment/Plan: Cont to monitor Poor prognosis Code(s): K70.30 - ALCOHOLIC CIRRHOSIS OF LIVER WITHOUT ASCITES (7) Hypoalbuminemia Code(s): E88.09 - OT DISORDERS OF PLASMA-PROTEIN METABOLISM, NEC (8) Substance abuse Assessment/Plan: Psych consult ?Competency Code(s): F19.10 - OTHER PSYCHOACTIVE SUBSTANCE ABUSE, UNCOMPLICATED (9) Cachexia Assessment/Plan: Due to severe protein malnutrition Code(s): R64 - CACHEXIA (10) Severe malnutrition Code(s): E43 - UNSPECIFIED SEVERE PROTEIN-CALORIE MALNUTRITION (11) Sacral ulcer Assessment/Plan: Surgical consult noted Cont wound care No surgical intervention at this time Code(s): L98.429 - NON-PRESSURE CHRONIC ULCER OF BACK WITH UNSPECIFIED SEVERITY
[2020-07-25] MEDS ORDERED: DEXTROSE 5%-WATER - 50 ML IVPB ONE ×3 (02:09→16:18)
[2020-07-25] MEDS ORDERED: PIPERACILLIN/TAZOBACTAM 3.375 GM VIAL IVPB ONE ×3 (02:09→16:18)
[2020-07-25] MEDS: PIPERACILLIN/TAZOB 3.375 GM 3.375 GM in DEXTROSE 5%-WATER - 50 ML IVPB SCH ×3 (02:36→17:27)
[2020-07-25] MEDS: VANCOMYCIN 500 MG in DEXTROSE 5%-WATER 100 ML IVPB SCH ×2 (02:36→13:51)
[2020-07-25] MEDS: NAPH,MB-DB/K PH,MBDB POWDER PACKET PO SCH ×3 (06:30→21:30)
[2020-07-25] MEDS: BANATROL PLUS POWDER PACKET GT SCH ×3 (06:30→21:30)
[2020-07-25 06:52] LABS: HEMATOCRIT 25.2 % (32.4-45.2); HEMOGLOBIN 8.8 GM/dL (10.7-15.3); MCH 30.5 pg (25.7-33.7); MEAN PLT VOLUME 8.6 fl (7.5-11.1); PLATELET COUNT 232 K/MM3 (134-434); RDW 17.1 % (11.6-15.6); WHITE BLOOD COUNT 7.9 K/mm3 (4.0-10.0)
[2020-07-25 07:00] LABS: INR 1.48 (0.83-1.09); PROTHROMBIN TIME (PATIENT) 17.5 SEC (9.7-13.0)
[2020-07-25] MEDS: VASOPRESSIN 40 UNITS in SODIUM CHLORIDE 98 ML IVPB SCH ×2 (07:00→16:35)
[2020-07-25 07:10] LABS: ALBUMIN 1.1 g/dl (3.4-5.0); ANION GAP 5 MMOL/L (8-16); BILIRUBIN,TOTAL 0.9 mg/dL (0.2-1); BLOOD UREA NITROGEN 21.4 mg/dL (7-18); CHLORIDE 107 mmol/L (98-107); CO2 24 mmol/L (21-32); PHOSPHOROUS 3.1 mg/dL (2.5-4.9); POTASSIUM 4.2 mmol/L (3.5-5.1); SGOT/AST 21 U/L (15-37); SGPT/ALT 30 U/L (13-61); SODIUM 136 mmol/L (136-145); TOT PROT 4.1 g/dl (6.4-8.2)
[2020-07-25] MEDS ORDERED: ACETAMINOPHEN 1000 MG/100 ML VIAL (NON FORMULARY) IVPB ONE (07:34)
[2020-07-25 07:46] LABS: ALK PHOS 207 U/L (45-117)
[2020-07-25 07:59] LABS: CREATININE < 0.2 mg/dL (0.55-1.3)
[2020-07-25 08:01] LABS: CALCIUM 6.5 mg/dL (8.5-10.1); GLUCOSE,RANDOM 33 mg/dL (74-106)
[2020-07-25] MEDS ORDERED: DEXTROSE 50%-WATER 25 GM/50 ML DISP.SYRIN ONE (08:05)
[2020-07-25] MEDS ORDERED: DEXTROSE 50%-WATER - 25 GM/50 ML VIAL IVPUSH ONE (08:07)
[2020-07-25] MEDS ORDERED: DEXTROSE 10%-WATER - 1,000 ML IV SCH (08:30)
[2020-07-25] MEDS ORDERED: MORPHINE SULFATE 2 MG/ML VIAL IVPUSH PRN (08:30)
[2020-07-25] MEDS ORDERED: PT OWN MED DRAWER 7, Y5N ONE ×2 (09:17→13:49)
[2020-07-25] MEDS: MULTIVIT-MINERALS ORAL LIQUID NGT SCH (09:34)
[2020-07-25] MEDS: AMINO ACIDS/PROTEIN HYDROLYS 30 ML LIQUID.PKT PO SCH (09:34)
[2020-07-25] MEDS: POTASSIUM CHLORIDE ORAL LIQUID 20 MEQ/15 ML PO SCH (09:34)
[2020-07-25] MEDS: FOLIC ACID 1 MG TABLET (FP) NGT SCH (09:34)
[2020-07-25] MEDS ORDERED: PROPOFOL 200 MG/20 ML VIAL IVPUSH ONE ×2 (09:41)
[2020-07-25] MEDS ORDERED: PROPOFOL 1,000,000 MCG/100 ML VIAL ONE (09:41)
[2020-07-25] MEDS ORDERED: VECURONIUM BROMIDE 10 MG/10 ML VIAL ONE (09:42)
[2020-07-25] MEDS ORDERED: VECURONIUM BROMIDE 10 MG/10 ML VIAL IVPUSH ONE (09:44)
[2020-07-25] MEDS ORDERED: VECURONIUM BROMIDE 100 MG/100 ML BAG IVPB SCH (09:45)
[2020-07-25] MEDS: THIAMINE HCL 200 MG/2 ML VIAL IVPB SCH (09:52)
[2020-07-25] MEDS ORDERED: VANCOMYCIN 500 MG in DEXTROSE 5%-WATER - 100 ML IVPB SCH (10:00)
[2020-07-25] MEDS ORDERED: LIDOCAINE 1%/EPI 1:100000 (20 ML MULTI DOSE VIAL) IJ ONE (10:37)
[2020-07-25] MEDS: HEPARIN NA (PORCINE) 5,000 UNITS/ML 1ML VIAL SQ SCH ×2 (10:51→21:30)
--- NOTE | 2020-07-25 10:54 | OPR ---
Patient Name: Elisabeth Em MR#:[id number] Procedure Date: 07/25/2020 Inpatient Procedure Preoperative Diagnosis: 1. Respiratory failure; 2. Anorexia. Postoperative Diagnosis: same. Procedure: 1. Flexible Bronchoscopy (performed by Dr. Gallagher); 2. Percutaneous tracheostomy with #8 Portex; Indication: Respiratory failure; Surgeon(s): Apolinar Gill MD Cosurgeon: Dr. Alfred Gallagher Anesthesia: General endotracheal; Findings: Minimal secretions. Specimens Sent: 1. na; Complications: none Drains / Tubes / Catheters: na Hardware / Implants: na Blood / Fluid Losses: minimal Post-Operative Condition: Stable. Indications: This patient is a 35 year-old female with anorexia and respiratory failure. I was consulted by the ICU team to assist in a percutaneous tracheostomy in conjunction with Dr. Gallagher. Risks, benefits, and alternatives of the procedure were explained by the ICU team to the family. All questions were addressed and they agreed. Details of Procedure: The procedure was done at the bedside. We began with bronchoscopy to clear the airway for the procedure. After this, the neck was prepared and draped in standard fashion. We then made a transverse incision below the cricoid cartilage. We withdrew the endotracheal airway until we were close to the vocal cords. We inserted the needle from the percutaneous bronchoscopy kit under direct bronchoscopic vision identifying approximately the 2nd to 3rd ring. We then passed a wire under vision. We then dilated up and inserted the tracheostomy (#8 Portex). We put the cuff up and connected the ventilator. We placed the bronchoscope through the tracheostomy and then above. There was no significant bleeding and placement was good.
[2020-07-25] MEDS: ZINC OXIDE 20% TOPICAL OINTMENT 30 GM TUBE TP SCH (11:28)
--- NOTE | 2020-07-25 11:57 | PROC ---
Procedure Note Procedure: BRONCHOSCOPY After discussing the risks and benefits of the procedure with the mother, informed consent was obtained. Glidescope Bflex fiberoptic bronchoscope was passed via the ETT and the airways were examined down to the subsegmental level. The yoshi was sharp, there were no endobronchial lesions seen in either lung. The trachea was directly visualized as the surgeon placed a percutaneous tracheostomy Portex cuffed 8.0. The bronchoscope was then passed via the new tracheostomy confirming placement. Bronchoscope then withdrawn and procedure terminated. No immediate complications. Alfred Gallagher MD
--- NOTE | 2020-07-25 12:02 | PN ---
Progress Note, Physician History of Present Illness: patient s/p trach stable - Current Medication List Current Medications: Active Medications Acetaminophen (Ofirmev Injection -) 500 mg IVPB Q6H PRN PRN Reason: pain and/or fever Amino Acids (Prosource No Carb Liquid Pkt) 30 ml PO DAILY [facility] Last Admin: 07/25/20 09:34 Dose: Not Given Documented by: Banana Based Medical Food (Banatrol Plus Powder Packet) 1 packet GT TID [facility] Last Admin: 07/25/20 06:30 Dose: 1 packet Documented by: Dextrose (D50w (Vial) -) 12.5 gm IVPUSH PRN PRN PRN Reason: HYPOGLYCEMIA Last Admin: 07/08/20 07:38 Dose: 12.5 gm Documented by: Folic Acid (Folic Acid -) 1 mg NGT DAILY [facility] Last Admin: 07/25/20 09:34 Dose: Not Given Documented by: Heparin Sodium (Porcine) (Heparin -) 5,000 unit SQ BID [facility] Last Admin: 07/24/20 10:15 Dose: 5,000 unit Documented by: Vasopressin 40 units/ Sodium (Chloride) 100 mls @ 5 mls/hr IVPB ASDIR [facility]; Protocol Last Admin: 07/25/20 07:00 Dose: Not Given Documented by: Piperacillin Sod/Tazobactam (Sod 3.375 gm/ Dextrose) 50 mls @ 100 mls/hr IVPB Q8H-IV [facility]; Protocol Last Admin: 07/25/20 08:59 Dose: 100 mls/hr Documented by: Vancomycin HCl 500 mg/ (Dextrose) 100 mls @ 100 mls/hr IVPB Q12H [facility] Stop: 07/25/20 14:59 Last Admin: 07/25/20 02:36 Dose: 100 mls/hr Documented by: Dextrose (D10w -) 1,000 mls @ 75 mls/hr IV ASDIR [facility] Last Admin: 07/25/20 08:25 Dose: 75 mls/hr Documented by: Dexmedetomidine/Sodium Chloride (Precedex 400 Mcg/100 Ml Inject) 400 mcg in 100 mls @ 1.542 mls/hr IVPB TITR [facility] Morphine Sulfate (Morphine Sulfate) 1 mg IVPUSH Q6H PRN PRN Reason: PAIN LEVEL 7 - 10 Last Admin: 07/25/20 08:58 Dose: 1 mg Documented by: Multi-Ingredient Ointment (Zinc Oxide) 1 applic TP DAILY [facility] Last Admin: 07/24/20 10:18 Dose: 1 applic Documented by: Multivitamins/Minerals (Certavite-Antioxidant Liquid) 15 ml NGT DAILY [facility] Last Admin: 07/25/20 09:34 Dose: Not Given Documented by: Potassium Chloride (Potassium Chloride Oral Liquid) 40 meq PO DAILY [facility] Last Admin: 07/25/20 09:34 Dose: Not Given Documented by: Potassium Phos/Sodium Phos (Phos-Nak Packet -) 1 packet PO TID [facility] Last Admin: 07/25/20 06:30 Dose: 1 packet Documented by: Thiamine HCl (Vitamin B1 Injection -) 100 mg IVPB DAILY [facility] Last Admin: 07/25/20 09:52 Dose: 100 mg Documented by: - Objective Vital Signs: Vital Signs Temperature 97.9 F 07/25/20 11:55 Pulse Rate 112 H 07/25/20 11:55 Respiratory Rate 20 07/25/20 11:55 Blood Pressure 96/67 07/25/20 11:55 O2 Sat by Pulse Oximetry (%) 98 07/25/20 11:55 Constitutional: Yes: No Distress, Calm Cardiovascular: Yes: S1 Respiratory: Yes: Diminished, Other (trach in place) Gastrointestinal: Yes: Normal Bowel Sounds, Soft Musculoskeletal: Yes: WNL Extremities: Yes: WNL Neurological: Yes: Alert Labs: CBC, BMP 07/25/20 05:40 07/25/20 05:40 INR, PTT INR 1.48 (0.83-1.09) H 07/25/20 05:40 Fibrinogen 344.0 mg/dL (238-498) 07/21/20 06:00 Assessment/Plan Pneumonia likely Aspiration UTI Sepsis Hyponatremia SBO resolving Alcohol/Heroin Abuse Anemia Failure to Thrive Severe Protein Calorie Malnutrition uti sacral wounds plan continue abx nutrition as per icu vent mgmt repeat cx if needed close watch cc 38 min
--- NOTE | 2020-07-25 12:09 | PN ---
Teaching Attending Note Name of Resident: Masha Eduardo ATTENDING PHYSICIAN STATEMENT I saw and evaluated the patient. I reviewed the resident's note and discussed the case with the resident. I agree with the resident's findings and plan as documented. SUBJECTIVE: Pt seen and examined in the ICU. s/p tracheostomy this AM. Low grade fevers this AM. OBJECTIVE: Vital Signs Period Temp Pulse Resp BP Sys/Campbell Pulse Ox Last 24 Hr 97.9 F-100.9 F 69-122 14-34 75-104/52-80 95-100 Intake & Output 07/22/20 07/23/20 07/24/20 07/25/20 23:59 23:59 23:59 23:59 Intake Total 1823.8 1423.4 2675 43 Output Total 459 861 0123 300 Balance 1263.8 923.4 1655 -257 Weight 28.7 kg 28.7 kg 30.799 kg 30.844 kg Gen: intubated, sedated, cachectic Heart: RRR Lung: scattered rhonchi Abd: soft, nontender, +ascites Ext: no edema CBC, BMP 07/25/20 05:40 07/25/20 05:40 Active Medications Acetaminophen (Ofirmev Injection -) 500 mg IVPB Q6H PRN PRN Reason: pain and/or fever Amino Acids (Prosource No Carb Liquid Pkt) 30 ml PO DAILY [facility] Last Admin: 07/25/20 09:34 Dose: Not Given Documented by: Banana Based Medical Food (Banatrol Plus Powder Packet) 1 packet GT TID [facility] Last Admin: 07/25/20 06:30 Dose: 1 packet Documented by: Dextrose (D50w (Vial) -) 12.5 gm IVPUSH PRN PRN PRN Reason: HYPOGLYCEMIA Last Admin: 07/08/20 07:38 Dose: 12.5 gm Documented by: Folic Acid (Folic Acid -) 1 mg NGT DAILY [facility] Last Admin: 07/25/20 09:34 Dose: Not Given Documented by: Heparin Sodium (Porcine) (Heparin -) 5,000 unit SQ BID [facility] Last Admin: 07/24/20 10:15 Dose: 5,000 unit Documented by: Vasopressin 40 units/ Sodium (Chloride) 100 mls @ 5 mls/hr IVPB ASDIR [facility]; Protocol Last Admin: 07/25/20 07:00 Dose: Not Given Documented by: Piperacillin Sod/Tazobactam (Sod 3.375 gm/ Dextrose) 50 mls @ 100 mls/hr IVPB Q8H-IV [facility]; Protocol Last Admin: 07/25/20 08:59 Dose: 100 mls/hr Documented by: Vancomycin HCl 500 mg/ (Dextrose) 100 mls @ 100 mls/hr IVPB Q12H [facility] Stop: 07/25/20 14:59 Last Admin: 07/25/20 02:36 Dose: 100 mls/hr Documented by: Dextrose (D10w -) 1,000 mls @ 75 mls/hr IV ASDIR [facility] Last Admin: 07/25/20 08:25 Dose: 75 mls/hr Documented by: Dexmedetomidine/Sodium Chloride (Precedex 400 Mcg/100 Ml Inject) 400 mcg in 100 mls @ 1.542 mls/hr IVPB TITR [facility] Morphine Sulfate (Morphine Sulfate) 1 mg IVPUSH Q6H PRN PRN Reason: PAIN LEVEL 7 - 10 Last Admin: 07/25/20 08:58 Dose: 1 mg Documented by: Multi-Ingredient Ointment (Zinc Oxide) 1 applic TP DAILY [facility] Last Admin: 07/24/20 10:18 Dose: 1 applic Documented by: Multivitamins/Minerals (Certavite-Antioxidant Liquid) 15 ml NGT DAILY [facility] Last Admin: 07/25/20 09:34 Dose: Not Given Documented by: Potassium Chloride (Potassium Chloride Oral Liquid) 40 meq PO DAILY [facility] Last Admin: 07/25/20 09:34 Dose: Not Given Documented by: Potassium Phos/Sodium Phos (Phos-Nak Packet -) 1 packet PO TID [facility] Last Admin: 07/25/20 06:30 Dose: 1 packet Documented by: Thiamine HCl (Vitamin B1 Injection -) 100 mg IVPB DAILY [facility] Last Admin: 07/25/20 09:52 Dose: 100 mg Documented by: ASSESSMENT AND PLAN: Acute Hypoxic Respiratory Failure Pneumonia likely Aspiration UTI Sepsis Hyponatremia Small Bowel Obstruction Alcohol/Heroin Abuse Anemia/Thrombocytopenia Failure to Thrive Severe Protein Calorie Malnutrition Refeeding Syndrome - monitor urine output, creatinine - replete lytes - continue antibiotics - off pressors, maintain MAP >65 - titrate FiO2 to keep SpO2 >90% - spontaneous breathing trials as tolerated - resume enteral feeds - DVT/GI prophylaxis - continue ICU monitoring critical care time spent in reviewing chart, evaluating patient and formulating plan 35 min
--- NOTE | 2020-07-25 12:12 | PN ---
Progress Note, Physician - Current Medication List Current Medications: Active Medications Acetaminophen (Ofirmev Injection -) 500 mg IVPB Q6H PRN PRN Reason: pain and/or fever Amino Acids (Prosource No Carb Liquid Pkt) 30 ml PO DAILY [facility] Last Admin: 07/25/20 09:34 Dose: Not Given Documented by: Banana Based Medical Food (Banatrol Plus Powder Packet) 1 packet GT TID [facility] Last Admin: 07/25/20 06:30 Dose: 1 packet Documented by: Dextrose (D50w (Vial) -) 12.5 gm IVPUSH PRN PRN PRN Reason: HYPOGLYCEMIA Last Admin: 07/08/20 07:38 Dose: 12.5 gm Documented by: Folic Acid (Folic Acid -) 1 mg NGT DAILY [facility] Last Admin: 07/25/20 09:34 Dose: Not Given Documented by: Heparin Sodium (Porcine) (Heparin -) 5,000 unit SQ BID [facility] Last Admin: 07/24/20 10:15 Dose: 5,000 unit Documented by: Vasopressin 40 units/ Sodium (Chloride) 100 mls @ 5 mls/hr IVPB ASDIR [facility]; Protocol Last Admin: 07/25/20 07:00 Dose: Not Given Documented by: Piperacillin Sod/Tazobactam (Sod 3.375 gm/ Dextrose) 50 mls @ 100 mls/hr IVPB Q8H-IV [facility]; Protocol Last Admin: 07/25/20 08:59 Dose: 100 mls/hr Documented by: Vancomycin HCl 500 mg/ (Dextrose) 100 mls @ 100 mls/hr IVPB Q12H [facility] Stop: 07/25/20 14:59 Last Admin: 07/25/20 02:36 Dose: 100 mls/hr Documented by: Dextrose (D10w -) 1,000 mls @ 75 mls/hr IV ASDIR [facility] Last Admin: 07/25/20 08:25 Dose: 75 mls/hr Documented by: Dexmedetomidine/Sodium Chloride (Precedex 400 Mcg/100 Ml Inject) 400 mcg in 100 mls @ 1.542 mls/hr IVPB TITR [facility] Morphine Sulfate (Morphine Sulfate) 1 mg IVPUSH Q6H PRN PRN Reason: PAIN LEVEL 7 - 10 Last Admin: 07/25/20 08:58 Dose: 1 mg Documented by: Multi-Ingredient Ointment (Zinc Oxide) 1 applic TP DAILY [facility] Last Admin: 07/24/20 10:18 Dose: 1 applic Documented by: Multivitamins/Minerals (Certavite-Antioxidant Liquid) 15 ml NGT DAILY [facility] Last Admin: 07/25/20 09:34 Dose: Not Given Documented by: Potassium Chloride (Potassium Chloride Oral Liquid) 40 meq PO DAILY [facility] Last Admin: 07/25/20 09:34 Dose: Not Given Documented by: Potassium Phos/Sodium Phos (Phos-Nak Packet -) 1 packet PO TID [facility] Last Admin: 07/25/20 06:30 Dose: 1 packet Documented by: Thiamine HCl (Vitamin B1 Injection -) 100 mg IVPB DAILY [facility] Last Admin: 07/25/20 09:52 Dose: 100 mg Documented by: - Objective Vital Signs: Vital Signs Temperature 97.9 F 07/25/20 11:55 Pulse Rate 112 H 07/25/20 11:55 Respiratory Rate 20 07/25/20 11:55 Blood Pressure 96/67 07/25/20 11:55 O2 Sat by Pulse Oximetry (%) 98 07/25/20 11:55 Labs: CBC, BMP 07/25/20 05:40 07/25/20 05:40 INR, PTT INR 1.48 (0.83-1.09) H 07/25/20 05:40 Fibrinogen 344.0 mg/dL (238-498) 07/21/20 06:00
[2020-07-25] MEDS ORDERED: LORazepam 2 MG/ML SDV VIAL ONE (12:25)
[2020-07-25] MEDS ORDERED: MORPHINE SULFATE 2 MG/ML VIAL ONE ×2 (12:26→12:28)
--- NOTE | 2020-07-25 13:12 | PN ---
Progress Note, Physician History of Present Illness: Pt is assessed at bedside. Resting comfortable and in acute distress. Pt has trach and is responsive and able to write for communication. - Current Medication List Current Medications: Active Medications Acetaminophen (Ofirmev Injection -) 500 mg IVPB Q6H PRN PRN Reason: pain and/or fever Amino Acids (Prosource No Carb Liquid Pkt) 30 ml PO DAILY [facility] Last Admin: 07/25/20 09:34 Dose: Not Given Documented by: Banana Based Medical Food (Banatrol Plus Powder Packet) 1 packet GT TID [facility] Last Admin: 07/25/20 06:30 Dose: 1 packet Documented by: Dextrose (D50w (Vial) -) 12.5 gm IVPUSH PRN PRN PRN Reason: HYPOGLYCEMIA Last Admin: 07/08/20 07:38 Dose: 12.5 gm Documented by: Folic Acid (Folic Acid -) 1 mg NGT DAILY [facility] Last Admin: 07/25/20 09:34 Dose: Not Given Documented by: Heparin Sodium (Porcine) (Heparin -) 5,000 unit SQ BID [facility] Last Admin: 07/24/20 10:15 Dose: 5,000 unit Documented by: Vasopressin 40 units/ Sodium (Chloride) 100 mls @ 5 mls/hr IVPB ASDIR [facility]; Protocol Last Admin: 07/25/20 07:00 Dose: Not Given Documented by: Piperacillin Sod/Tazobactam (Sod 3.375 gm/ Dextrose) 50 mls @ 100 mls/hr IVPB Q8H-IV [facility]; Protocol Last Admin: 07/25/20 08:59 Dose: 100 mls/hr Documented by: Vancomycin HCl 500 mg/ (Dextrose) 100 mls @ 100 mls/hr IVPB Q12H [facility] Stop: 07/25/20 14:59 Last Admin: 07/25/20 02:36 Dose: 100 mls/hr Documented by: Dexmedetomidine/Sodium Chloride (Precedex 400 Mcg/100 Ml Inject) 400 mcg in 100 mls @ 1.542 mls/hr IVPB TITR [facility] Morphine Sulfate (Morphine Sulfate) 1 mg IVPUSH Q6H PRN PRN Reason: PAIN LEVEL 7 - 10 Last Admin: 07/25/20 08:58 Dose: 1 mg Documented by: Multi-Ingredient Ointment (Zinc Oxide) 1 applic TP DAILY [facility] Last Admin: 07/25/20 11:28 Dose: 1 applic Documented by: Multivitamins/Minerals (Certavite-Antioxidant Liquid) 15 ml NGT DAILY [facility] Last Admin: 07/25/20 09:34 Dose: Not Given Documented by: Potassium Chloride (Potassium Chloride Oral Liquid) 40 meq PO DAILY [facility] Last Admin: 07/25/20 09:34 Dose: Not Given Documented by: Potassium Phos/Sodium Phos (Phos-Nak Packet -) 1 packet PO TID [facility] Last Admin: 07/25/20 06:30 Dose: 1 packet Documented by: Thiamine HCl (Vitamin B1 Injection -) 100 mg IVPB DAILY [facility] Last Admin: 07/25/20 09:52 Dose: 100 mg Documented by: - Objective Vital Signs: Vital Signs Temperature 97.9 F 07/25/20 11:55 Pulse Rate 112 H 07/25/20 11:55 Respiratory Rate 20 07/25/20 11:55 Blood Pressure 96/67 07/25/20 11:55 O2 Sat by Pulse Oximetry (%) 98 07/25/20 11:55 Integumentary: Yes: WNL Neurological: Yes: WNL, Alert, Oriented ...Motor Strength: WNL Psychiatric: Yes: WNL Additional Findings/Remarks: Vent Setting:RR 14, TV 350, FiO2 40%, PEEP 5 GENERAL: The patient is awake, alert, oriented, in no acute distress. HEAD: Normal with no signs of trauma, temporal wasting, intubated, NG tube, EYES: PERRL, extraocular movements intact, sclera anicteric, conjunctiva clear. No ptosis. ENT: Ears normal, nares patent, oropharynx clear without exudates, moist mucous membranes. NECK: Trachea midline, full range of motion, supple. LUNGS: Breath sounds diminished on right basilar, crackles on right basilar, clear to auscultation bilaterally, no wheezes, no accessory muscle use. HEART: tachycardic, regular rhythm, S1, S2 without murmur, rub or gallop. ABDOMEN: thin, Soft, nontender, nondistended, normoactive bowel sounds, no guarding, no rebound, no hepatosplenomegaly, no masses. EXTREMITIES: 2+ pulses, warm, well-perfused, no edema. NEUROLOGICAL: Cranial nerves II through XII grossly intact, gait not observed. PSYCH: Normal mood, normal affect. SKIN: Warm, dry, normal turgor, sacral ulcer (unstagable) Labs: CBC, BMP 07/25/20 05:40 07/25/20 05:40 INR, PTT INR 1.48 (0.83-1.09) H 07/25/20 05:40 Fibrinogen 344.0 mg/dL (238-498) 07/21/20 06:00 Impression/Plan Impression/Plan: ASSESSMENT/PLAN: 35 yo female with PMH of malnutrition (anorexia vs bulemia), cirrhosis (2/2 alcohol abuse), heroin abuse in ICU with sepsis and acute respiratory failure, #Neuro - Alert, responsive, able to communicate with blinking and writing - Morphine (q6, PRN) - Precedix (400 mcg) #CV - Hypotension (MAP 60) s/p 4 units morphine - Given 2L NS and Vasporessin #Respiratory - Acute respiratory failure - Tracheotomy (07/25) by Dr. Gill - Vent Setting: RR 14, TV 350, O2 40%, PEEP 5 #PEN/GI - Pt on NG tube feeding currently - K replacement - Phos replacement - Folic Acid - Thiamine - Hypoglycemic - glucose 33, secondary to NPO after midnight for trach - continued tube feeding - PEG Tube scheduled for 07/[address] Barkley - consented by phone from mother, pt agreeable to plan - Presurgery Recs for 07/26 -NPO after midnight -Hold heparin tonight -D5 & 1/2NS due to hypoglycemia when off tube feds, monitor glucose -IR nurse will administer prep #ID - Septic - UTI - Indwelling mistry - Urine cultures: G-, lactose fermenting, bacilli - Pneumonia - consistent left lower lobe infiltrates vs atelectasis - new right lower atelectasis -Antibiotics - Zosyn (3.375gm) (since 07/20) - Vanc (1.5g) (1x 07/24) #Heme/Onc - Hb 8.8 (uptrending) - Plt wnl DVT Prophylaxis: Heparin (500, BID) Will hold 07/26 night for PEG tube placement 07/27 Lines: Central Line (right IJ) 07/24 Visit type - Emergency Visit Emergency Visit: Yes ED Registration Date: 07/01/20 Care time: The patient presented to the Emergency Department on the above date and was hospitalized for further evaluation of their emergent condition. - New Patient This patient is new to me today: Yes Date on this admission: 07/26/20 - Critical Care Critical Care patient: No ATTENDING PHYSICIAN STATEMENT I saw and evaluated the patient. I reviewed the resident's note and discussed the case with the resident. I agree with the resident's findings and plan as documented. SUBJECTIVE: OBJECTIVE: ASSESSMENT AND PLAN:
[2020-07-25] MEDS ORDERED: morphine CARPU-JECT 4 MG/1 ML DISP.SYRIN IVPUSH ONE (13:20)
[2020-07-25] MEDS ORDERED: morphine SULFATE 4 MG/ML VIAL IVPUSH ONE (13:20)
--- NOTE | 2020-07-25 13:23 | PN ---
Progress Note, GEAR CUTTER - Note Progress Note: Selected Entries 07/24/20 07/24/20 07/24/20 00:00 00:21 01:00 Skin Risk Level Supper NPO Temperature 100.0 F H Pulse Rate 112 H 112 H Blood Pressure 78/51 L 83/57 L 07/24/20 07/24/20 07/24/20 02:00 03:00 04:00 Skin Risk Level Supper Temperature 100.8 F H 100.6 F H Pulse Rate 110 H 117 H 101 H Blood Pressure 77/55 L 89/62 L 77/55 L 07/24/20 07/24/20 07/24/20 05:00 06:00 07:45 Skin Risk Level Supper NPO Temperature Pulse Rate 107 H 106 H Blood Pressure 83/56 L 92/65 07/24/20 07/24/20 07/24/20 08:00 09:00 10:00 Skin Risk Level Supper Temperature 100.4 F H 100.8 F H 100.7 F H Pulse Rate 107 H 104 H 124 H Blood Pressure 85/65 L 88/62 L 84/62 L 07/24/20 07/24/20 07/24/20 11:00 12:00 13:03 Skin Risk Level Supper Temperature 100.0 F H 100.6 F H 100.6 F H Pulse Rate 100 H 101 H 116 H Blood Pressure 84/53 L 144/132 H 81/67 L 07/24/20 07/24/20 07/24/20 14:00 15:00 16:00 Skin Risk Level Supper NPO Temperature 100.3 F H 100.5 F H 100.9 F H Pulse Rate 108 H 98 H 116 H Blood Pressure 89/69 L 82/63 L 84/63 L 07/24/20 07/24/20 07/24/20 17:00 18:24 20:00 Skin Risk Level Supper Temperature 100.7 F H 100.7 F H 100.5 F H Pulse Rate 120 H 122 H 119 H Blood Pressure 80/61 L 81/58 L 87/66 L 07/24/20 07/25/20 07/25/20 22:00 00:00 02:00 Skin Risk Level Supper Temperature 100.3 F H 99.8 F H Pulse Rate 112 H 106 H 89 Blood Pressure 94/60 75/52 L 77/60 L 07/25/20 07/25/20 07/25/20 04:00 06:00 07:35 Skin Risk Level Supper Temperature 99.3 F 99.2 F 98.5 F Pulse Rate 90 103 H 86 Blood Pressure 80/61 L 79/57 L 80/62 L 07/25/20 07/25/20 07/25/20 08:03 10:15 10:28 Skin Risk Level Very High Risk Supper Temperature 98.3 F Pulse Rate 94 H 69 Blood Pressure 91/62 07/25/20 07/25/20 07/25/20 10:41 10:55 11:10 Skin Risk Level Supper Temperature 98.2 F 98.2 F 98.0 F Pulse Rate 100 H 84 91 H Blood Pressure 103/80 104/74 94/71 07/25/20 07/25/20 07/25/20 11:25 11:40 11:55 Skin Risk Level Supper Temperature 98.0 F 98.0 F 97.9 F Pulse Rate 91 H 85 112 H Blood Pressure 94/68 94/68 96/67 Laboratory Tests 07/25/20 05:40 WBC 7.9 Percutaneous tracheostomy with #8 Portex; placed today. Case reviewed with medical team. Pt may need to downsize trach in order to successfully use PMV in future, once medically stable. Plan is for PEG insertion. To follow, as indicated. Please let me know when I can be of assistance.
[2020-07-25] MEDS ORDERED: SODIUM CHLORIDE 1,000 ML IV STA (13:31)
[2020-07-25] MEDS: DEXMEDETOMIDINE IN 0.9 % NACL 400 MCG/100 ML VIAL IVPB SCH (13:34)
--- NOTE | 2020-07-25 13:40 | PN ---
Progress Note, Physician History of Present Illness: Pt seen and examined at bedside. She is getting a trache today. - Current Medication List Current Medications: Active Medications Acetaminophen (Ofirmev Injection -) 500 mg IVPB Q6H PRN PRN Reason: pain and/or fever Amino Acids (Prosource No Carb Liquid Pkt) 30 ml PO DAILY RAUL Last Admin: 07/25/20 09:34 Dose: Not Given Documented by: Banana Based Medical Food (Banatrol Plus Powder Packet) 1 packet GT TID RAUL Last Admin: 07/25/20 06:30 Dose: 1 packet Documented by: Dextrose (D50w (Vial) -) 12.5 gm IVPUSH PRN PRN PRN Reason: HYPOGLYCEMIA Last Admin: 07/08/20 07:38 Dose: 12.5 gm Documented by: Folic Acid (Folic Acid -) 1 mg NGT DAILY [facility]UL Last Admin: 07/25/20 09:34 Dose: Not Given Documented by: Heparin Sodium (Porcine) (Heparin -) 5,000 unit SQ BID RAUL Last Admin: 07/24/20 10:15 Dose: 5,000 unit Documented by: Vasopressin 40 units/ Sodium (Chloride) 100 mls @ 5 mls/hr IVPB ASDIR RAUL; Protocol Last Admin: 07/25/20 07:00 Dose: Not Given Documented by: Piperacillin Sod/Tazobactam (Sod 3.375 gm/ Dextrose) 50 mls @ 100 mls/hr IVPB Q8H-IV RAUL; Protocol Last Admin: 07/25/20 08:59 Dose: 100 mls/hr Documented by: Vancomycin HCl 500 mg/ (Dextrose) 100 mls @ 100 mls/hr IVPB Q12H RAUL Stop: 07/25/20 14:59 Last Admin: 07/25/20 02:36 Dose: 100 mls/hr Documented by: Dexmedetomidine/Sodium Chloride (Precedex 400 Mcg/100 Ml Inject) 400 mcg in 100 mls @ 1.542 mls/hr IVPB TITR RAUL Last Admin: 07/25/20 13:34 Dose: 0.7 mcg/kg/hr, 5.398 mls/hr Documented by: Sodium Chloride (Normal Saline -) 1,000 mls @ 1,000 mls/hr IV ASDIR STA Stop: 07/25/20 14:30 Last Admin: 07/25/20 13:32 Dose: 1,000 mls/hr Documented by: Morphine Sulfate (Morphine Sulfate) 1 mg IVPUSH Q6H PRN PRN Reason: PAIN LEVEL 7 - 10 Last Admin: 07/25/20 08:58 Dose: 1 mg Documented by: Morphine Sulfate (Morphine Injection -) 4 mg IVPUSH ONCE ONE Stop: 07/25/20 13:21 Last Admin: 07/25/20 12:30 Dose: 4 mg Documented by: Multi-Ingredient Ointment (Zinc Oxide) 1 applic TP DAILY [facility] Last Admin: 07/25/20 11:28 Dose: 1 applic Documented by: Multivitamins/Minerals (Certavite-Antioxidant Liquid) 15 ml NGT DAILY [facility] Last Admin: 07/25/20 09:34 Dose: Not Given Documented by: Potassium Chloride (Potassium Chloride Oral Liquid) 40 meq PO DAILY [facility] Last Admin: 07/25/20 09:34 Dose: Not Given Documented by: Potassium Phos/Sodium Phos (Phos-Nak Packet -) 1 packet PO TID [facility] Last Admin: 07/25/20 06:30 Dose: 1 packet Documented by: Thiamine HCl (Vitamin B1 Injection -) 100 mg IVPB DAILY [facility] Last Admin: 07/25/20 09:52 Dose: 100 mg Documented by: - Objective Vital Signs: Vital Signs Temperature 97.3 F L 07/25/20 13:36 Pulse Rate 74 07/25/20 13:36 Respiratory Rate 16 07/25/20 13:36 Blood Pressure 76/55 L 07/25/20 13:30 O2 Sat by Pulse Oximetry (%) 98 07/25/20 11:55 Constitutional: Yes: Calm Eyes: Yes: Conjunctiva Clear HENT: Yes: Atraumatic Cardiovascular: Yes: S1, S2 Respiratory: Yes: Mechanically Ventilated Gastrointestinal: Yes: Soft Genitourinary: Yes: Uribe Present Musculoskeletal: Yes: Muscle Weakness Edema: No Neurological: Yes: Lethargy Labs: CBC, BMP 07/25/20 05:40 07/25/20 05:40 INR, PTT INR 1.48 (0.83-1.09) H 07/25/20 05:40 Fibrinogen 344.0 mg/dL (238-498) 07/21/20 06:00 Problem List - Problems (1) Hypoglycemia Code(s): E16.2 - HYPOGLYCEMIA, UNSPECIFIED (2) Sepsis Code(s): A41.9 - SEPSIS, UNSPECIFIED ORGANISM Qualifiers: Qualified Code(s): A41.9 - Sepsis, unspecified organism (3) Hypoalbuminemia Code(s): E88.09 - OTH DISORDERS OF PLASMA-PROTEIN METABOLISM, NEC (4) Hyponatremia Code(s): E87.1 - HYPO-OSMOLALITY AND HYPONATREMIA Assessment/Plan Current Medications Generic Name Dose Route Start Last Admin Trade Name Freq PRN Reason Stop Dose Admin Acetaminophen 500 mg 07/25/20 03:37 Ofirmev Injection - IVPB Q6H PRN pain and/or fever Amino Acids 30 ml 07/19/20 10:00 07/25/20 09:34 Prosource No Carb Liquid Pkt PO Not Given DAILY RAUL Banana Based Medical Food 1 packet 07/10/20 22:00 07/25/20 06:30 Banatrol Plus Powder Packet GT 1 packet TID RAUL Administration Dextrose 12.5 gm 07/08/20 07:08 07/08/20 07:38 D50w (Vial) - IVPUSH 12.5 gm PRN PRN Administration HYPOGLYCEMIA Folic Acid 1 mg 07/06/20 10:00 07/25/20 09:34 Folic Acid - NGT Not Given DAILY RAUL Heparin Sodium (Porcine) 5,000 unit 07/20/20 10:00 07/24/20 10:15 Heparin - SQ 5,000 unit BID RAUL Administration Vasopressin 40 units/ Sodium 100 mls @ 5 mls/hr 07/08/20 07:00 07/25/20 07:00 Chloride IVPB Not Given ASDIR RAUL Protocol 2 UNITS/HR Piperacillin Sod/Tazobactam 50 mls @ 100 mls/hr 07/20/20 13:30 07/25/20 08:59 Sod 3.375 gm/ Dextrose IVPB 100 mls/hr Q8H-IV RAUL Administration Protocol Vancomycin HCl 500 mg/ 100 mls @ 100 mls/hr 07/25/20 02:00 07/25/20 02:36 Dextrose IVPB 07/25/20 14:59 100 mls/hr Q12H RAUL Administration Dexmedetomidine/Sodium Chloride 400 mcg in 100 mls @ 1.542 mls/hr 07/25/20 11:15 07/25/20 13:34 Precedex 400 Mcg/100 Ml Inject IVPB 0.7 mcg/kg/hr TITR RAUL 5.398 mls/hr Administration 0.2 MCG/KG/HR Sodium Chloride 1,000 mls @ 1,000 mls/hr 07/25/20 13:31 07/25/20 13:32 Normal Saline - IV 07/25/20 14:30 1,000 mls/hr ASDIR STA Administration Morphine Sulfate 1 mg 07/25/20 08:30 07/25/20 08:58 Morphine Sulfate IVPUSH 1 mg Q6H PRN Administration PAIN LEVEL 7 - 10 Morphine Sulfate 4 mg 07/25/20 13:20 07/25/20 12:30 Morphine Injection - IVPUSH 07/25/20 13:21 4 mg ONCE ONE Administration Multi-Ingredient Ointment 1 applic 07/19/20 13:30 07/25/20 11:28 Zinc Oxide TP 1 applic DAILY RAUL Administration Multivitamins/Minerals 15 ml 07/06/20 11:45 07/25/20 09:34 Certavite-Antioxidant Liquid NGT Not Given DAILY RAUL Potassium Chloride 40 meq 07/17/20 12:30 07/25/20 09:34 Potassium Chloride Oral Liquid PO Not Given DAILY RAUL Potassium Phos/Sodium Phos 1 packet 07/09/20 14:00 07/25/20 06:30 Phos-Nak Packet - PO 1 packet TID RAUL Administration Thiamine HCl 100 mg 07/11/20 12:45 07/25/20 09:52 Vitamin B1 Injection - IVPB 100 mg DAILY RAUL Administration Impression 1. azotemia 2. hyponatremia 3. hyperkalemia 4. hypotension 5. sepsis 6. sbo 7. uti 8. liver cirrhosis 9. hypoalbuminemia 10. etoh abuse 11. substance abuse 12. psoriasis 13. acute resp failure 14. malnutrition Plan - feeds on hold for procedure - monitor glucose - resume feeds once possible - d/c fluids once feeds started and glucose is stable
[2020-07-25] MEDS ORDERED: VASOPRESSIN 20 UNITS/ML VIAL IV ONE (16:18)
[2020-07-25] MEDS ORDERED: SODIUM CHLORIDE 0.9% 500 ML INFUS.BAG IV ONE (16:24)
--- NOTE | 2020-07-25 17:40 | PN ---
Progress Note, Physician History of Present Illness: S/P TRACH AWAKE - Current Medication List Current Medications: Active Medications Acetaminophen (Ofirmev Injection -) 500 mg IVPB Q6H PRN PRN Reason: pain and/or fever Amino Acids (Prosource No Carb Liquid Pkt) 30 ml PO DAILY [facility] Last Admin: 07/25/20 09:34 Dose: Not Given Documented by: Banana Based Medical Food (Banatrol Plus Powder Packet) 1 packet GT TID RAUL Last Admin: 07/25/20 16:29 Dose: 1 packet Documented by: Dextrose (D50w (Vial) -) 12.5 gm IVPUSH PRN PRN PRN Reason: HYPOGLYCEMIA Last Admin: 07/08/20 07:38 Dose: 12.5 gm Documented by: Folic Acid (Folic Acid -) 1 mg NGT DAILY [facility] Last Admin: 07/25/20 09:34 Dose: Not Given Documented by: Heparin Sodium (Porcine) (Heparin -) 5,000 unit SQ BID [facility] Last Admin: 07/25/20 10:51 Dose: Not Given Documented by: Piperacillin Sod/Tazobactam (Sod 3.375 gm/ Dextrose) 50 mls @ 100 mls/hr IVPB Q8H-IV RAUL; Protocol Last Admin: 07/25/20 17:27 Dose: 100 mls/hr Documented by: Dexmedetomidine/Sodium Chloride (Precedex 400 Mcg/100 Ml Inject) 400 mcg in 100 mls @ 1.542 mls/hr IVPB TITR RAUL Last Admin: 07/25/20 13:34 Dose: 0.7 mcg/kg/hr, 5.398 mls/hr Documented by: Vasopressin 40 units/ Sodium (Chloride) 100 mls @ 5 mls/hr IVPB ASDIR RAUL; Protocol Last Admin: 07/25/20 16:35 Dose: 2 units/hr, 5 mls/hr Documented by: Morphine Sulfate (Morphine Sulfate) 1 mg IVPUSH Q6H PRN PRN Reason: PAIN LEVEL 7 - 10 Last Admin: 07/25/20 08:58 Dose: 1 mg Documented by: Multi-Ingredient Ointment (Zinc Oxide) 1 applic TP DAILY [facility] Last Admin: 07/25/20 11:28 Dose: 1 applic Documented by: Multivitamins/Minerals (Certavite-Antioxidant Liquid) 15 ml NGT DAILY [facility] Last Admin: 07/25/20 09:34 Dose: Not Given Documented by: Potassium Chloride (Potassium Chloride Oral Liquid) 40 meq PO DAILY [facility] Last Admin: 07/25/20 09:34 Dose: Not Given Documented by: Potassium Phos/Sodium Phos (Phos-Nak Packet -) 1 packet PO TID [facility] Last Admin: 07/25/20 16:29 Dose: 1 packet Documented by: Thiamine HCl (Vitamin B1 Injection -) 100 mg IVPB DAILY [facility] Last Admin: 07/25/20 09:52 Dose: 100 mg Documented by: - Objective Vital Signs: Vital Signs Temperature 98.4 F 07/25/20 16:07 Pulse Rate 94 H 07/25/20 16:35 Respiratory Rate 24 H 07/25/20 16:30 Blood Pressure 74/53 L 07/25/20 16:35 O2 Sat by Pulse Oximetry (%) 98 07/25/20 17:03 Constitutional: Yes: No Distress HENT: Yes: Atraumatic Neck: Yes: Supple Cardiovascular: Yes: Regular Rate and Rhythm Respiratory: Yes: Rhonchi, Wheezes Gastrointestinal: Yes: Normal Bowel Sounds Extremities: Yes: WNL Integumentary: Yes: Other (SKIN IS PEELING CARLITO AT BONY PROMINENCE..) Neurological: Yes: Alert Labs: CBC, BMP 07/25/20 05:40 07/25/20 05:40 INR, PTT INR 1.48 (0.83-1.09) H 07/25/20 05:40 Fibrinogen 344.0 mg/dL (238-498) 07/21/20 06:00 Problem List - Problems (1) At risk for electrolyte imbalance Assessment/Plan: MONITOR AND REPLACE Code(s): Z91.89 - [facility] PERSONAL RISK FACTORS, NOT ELSEWHERE CLASSIFIED (2) SBO (small bowel obstruction) Assessment/Plan: ON TUBE FEEDS Code(s): K56.609 - UNSP INTESTNL OBST, UNSP TO PARTIAL VERSUS COMPLETE OBST (3) Sepsis Assessment/Plan: ON IV ABX CXS NOTED wbc wnl Code(s): A41.9 - SEPSIS, UNSPECIFIED ORGANISM Qualifiers: Sepsis type: sepsis due to unspecified organism Sepsis acute organ dysfunction status: unspecified Qualified Code(s): A41.9 - Sepsis, unspecified organism (4) Alcoholic liver damage Code(s): K70.9 - ALCOHOLIC LIVER DISEASE, UNSPECIFIED (5) Hypoalbuminemia Code(s): E88.09 - OTH DISORDERS OF PLASMA-PROTEIN METABOLISM, NEC (6) Hyponatremia Code(s): E87.1 - HYPO-OSMOLALITY AND HYPONATREMIA (7) Liver cirrhosis, alcoholic Code(s): K70.30 - ALCOHOLIC CIRRHOSIS OF LIVER WITHOUT ASCITES (8) Ischemic hepatitis Code(s): K75.9 - INFLAMMATORY LIVER DISEASE, UNSPECIFIED (9) Respiratory failure Assessment/Plan: S/P TRACH Code(s): J96.90 - RESPIRATORY FAILURE, UNSP, UNSP W HYPOXIA OR HYPERCAPNIA (10) UTI (urinary tract infection) Assessment/Plan: SEPSIS..RESOLVING ON IV ABX URINE STILL TURBID Code(s): N39.0 - URINARY TRACT INFECTION, SITE NOT SPECIFIED Qualifiers: Urinary tract infection type: site unspecified Hematuria presence: with hematuria Qualified Code(s): N39.0 - Urinary tract infection, site not specified; R31.9 - Hematuria, unspecified (11) Elevated LFTs Assessment/Plan: IMPROVING MONITOR Code(s): R79.89 - OTHER SPECIFIED ABNORMAL FINDINGS OF BLOOD CHEMISTRY (12) Hypothermia Assessment/Plan: stable PRN BEAR HUGGER Code(s): T68.XXXA - HYPOTHERMIA, INITIAL ENCOUNTER (13) Skin abrasion Assessment/Plan: AIR MATTRESS WILL BENEFIT Code(s): T14.8XXA - OTHER INJURY OF UNSPECIFIED BODY REGION, INITIAL ENCOUNTER Assessment/Plan critical care time spent in reviewing chart, evaluating patient and formulating plan [address] KELLEN PATEL
[2020-07-25] MEDS: ACETAMINOPHEN 1000 MG/100 ML VIAL (NON FORMULARY) IVPB PRN (17:53)
[2020-07-25] MEDS ORDERED: ALBUTEROL SO4 2.5/IPRATROPIUM 0.5 INH SOL 3 ML VIAL.NEB. NEB ONE (18:15)
[2020-07-25] MEDS ORDERED: HYDROmorphone HCl 2 MG/ML VIAL ONE (18:28)
[2020-07-25] MEDS ORDERED: HYDROmorphone HCL CARPU-JECT 2 MG/1 ML DISP.SYRIN IVPUSH ONE (18:28)
[2020-07-25] MEDS ORDERED: HYDROmorphone HCl 2 MG/ML VIAL IVPUSH PRN (20:33)
[2020-07-26] MEDS: LIDOCAINE HCL 5% TOP OINTMENT 50 GM TUBE TP SCH ×2 (01:29→09:33)
[2020-07-26] MEDS ORDERED: DEXTROSE 5%-WATER - 50 ML IVPB ONE ×2 (02:19→08:26)
[2020-07-26] MEDS ORDERED: PIPERACILLIN/TAZOBACTAM 3.375 GM VIAL IVPB ONE ×2 (02:19→08:26)
[2020-07-26] MEDS: PIPERACILLIN/TAZOB 3.375 GM 3.375 GM in DEXTROSE 5%-WATER - 50 ML IVPB SCH ×2 (02:48→09:26)
[2020-07-26] MEDS: ACETAMINOPHEN 1000 MG/100 ML VIAL (NON FORMULARY) IVPB PRN ×3 (03:35→22:20)
[2020-07-26] MEDS: DEXMEDETOMIDINE IN 0.9 % NACL 400 MCG/100 ML VIAL IVPB SCH ×2 (05:09→18:11)
[2020-07-26] MEDS: VASOPRESSIN 40 UNITS in SODIUM CHLORIDE 98 ML IVPB SCH ×2 (05:09→18:00)
[2020-07-26] MEDS: NAPH,MB-DB/K PH,MBDB POWDER PACKET PO SCH ×3 (06:04→22:11)
[2020-07-26] MEDS: BANATROL PLUS POWDER PACKET GT SCH ×3 (06:04→22:10)
[2020-07-26 07:18] LABS: HEMATOCRIT 23.3 % (32.4-45.2); HEMOGLOBIN 7.9 GM/dL (10.7-15.3); MCH 29.5 pg (25.7-33.7); MCHC 33.7 g/dl (32.0-36.0); MEAN CELL VOLUME 87.5 fl (80-96); MEAN PLT VOLUME 8.7 fl (7.5-11.1); PLATELET COUNT 244 K/MM3 (134-434); RBC 2.67 M/mm3 (3.60-5.2); RDW 17.7 % (11.6-15.6); WHITE BLOOD COUNT 8.5 K/mm3 (4.0-10.0)
[2020-07-26 07:39] LABS: INR 1.62 (0.83-1.09); PROTHROMBIN TIME (PATIENT) 19.2 SEC (9.7-13.0)
[2020-07-26 07:41] LABS: ACTIVATED PTT 30.5 SECONDS (25.2-36.5)
[2020-07-26 07:42] LABS: ALBUMIN 0.9 g/dl (3.4-5.0); ALK PHOS 209 U/L (45-117); ANION GAP 6 MMOL/L (8-16); BLOOD UREA NITROGEN 19.6 mg/dL (7-18); CHLORIDE 109 mmol/L (98-107); CO2 21 mmol/L (21-32); GLUCOSE,RANDOM 135 mg/dL (74-106); MAGNESIUM 1.6 mg/dL (1.8-2.4); PHOSPHOROUS 2.7 mg/dL (2.5-4.9); POTASSIUM 3.6 mmol/L (3.5-5.1); SGOT/AST 19 U/L (15-37); SGPT/ALT 25 U/L (13-61); SODIUM 136 mmol/L (136-145); TOT PROT 3.5 g/dl (6.4-8.2)
--- NOTE | 2020-07-26 07:52 | PN ---
Progress Note, Physician History of Present Illness: Pt assessed at beside. Able to communicate by mouthing words. Refuses to write. Able to understand that she is in pain. Overnight: BP dropped, MAP 50-60, O2 80s, given duoneb, increased O2 to 80% - Current Medication List Current Medications: Active Medications Acetaminophen (Ofirmev Injection -) 500 mg IVPB Q6H PRN PRN Reason: pain and/or fever Last Admin: 07/26/20 03:35 Dose: 500 mg Documented by: Amino Acids (Prosource No Carb Liquid Pkt) 30 ml PO DAILY RAUL Last Admin: 07/25/20 09:34 Dose: Not Given Documented by: Banana Based Medical Food (Banatrol Plus Powder Packet) 1 packet GT TID RAUL Last Admin: 07/26/20 06:04 Dose: 1 packet Documented by: Dextrose (D50w (Vial) -) 12.5 gm IVPUSH PRN PRN PRN Reason: HYPOGLYCEMIA Last Admin: 07/08/20 07:38 Dose: 12.5 gm Documented by: Folic Acid (Folic Acid -) 1 mg NGT DAILY RAUL Last Admin: 07/25/20 09:34 Dose: Not Given Documented by: Heparin Sodium (Porcine) (Heparin -) 5,000 unit SQ BID RAUL Last Admin: 07/25/20 21:30 Dose: 5,000 unit Documented by: Hydromorphone HCl (Dilaudid Vial -) 0.5 mg IVPUSH Q8H PRN PRN Reason: PAIN LEVEL 7 - 10 Last Admin: 07/26/20 02:37 Dose: 0.5 mg Documented by: Piperacillin Sod/Tazobactam (Sod 3.375 gm/ Dextrose) 50 mls @ 100 mls/hr IVPB Q8H-IV RAUL; Protocol Last Admin: 07/26/20 02:48 Dose: 100 mls/hr Documented by: Dexmedetomidine/Sodium Chloride (Precedex 400 Mcg/100 Ml Inject) 400 mcg in 100 mls @ 1.542 mls/hr IVPB TITR RAUL Last Admin: 07/26/20 05:09 Dose: 0.7 mcg/kg/hr, 5.398 mls/hr Documented by: Vasopressin 40 units/ Sodium (Chloride) 100 mls @ 5 mls/hr IVPB ASDIR RAUL; Protocol Last Admin: 07/26/20 05:09 Dose: 3 units/hr, 7.5 mls/hr Documented by: Lidocaine HCl (Xylocaine 5% Top. Ointment) 1 applic TP DAILY [facility] Last Admin: 07/26/20 01:29 Dose: 1 applic Documented by: Multi-Ingredient Ointment (Zinc Oxide) 1 applic TP DAILY [facility] Last Admin: 07/25/20 11:28 Dose: 1 applic Documented by: Multivitamins/Minerals (Certavite-Antioxidant Liquid) 15 ml NGT DAILY [facility] Last Admin: 07/25/20 09:34 Dose: Not Given Documented by: Potassium Chloride (Potassium Chloride Oral Liquid) 40 meq PO DAILY [facility] Last Admin: 07/25/20 09:34 Dose: Not Given Documented by: Potassium Phos/Sodium Phos (Phos-Nak Packet -) 1 packet PO TID [facility] Last Admin: 07/26/20 06:04 Dose: 1 packet Documented by: Thiamine HCl (Vitamin B1 Injection -) 100 mg IVPB DAILY [facility] Last Admin: 07/25/20 09:52 Dose: 100 mg Documented by: - Objective Vital Signs: Vital Signs Temperature 99.5 F 07/26/20 06:00 Pulse Rate 65 07/26/20 06:00 Respiratory Rate 15 07/26/20 06:00 Blood Pressure 86/59 L 07/26/20 06:00 O2 Sat by Pulse Oximetry (%) 100 07/26/20 06:00 Additional Findings/Remarks: Vent Setting:RR 14, TV 350, FiO2 80%, PEEP 5 GENERAL: The patient is awake, alert, oriented, in no acute distress. HEAD: Normal with no signs of trauma, temporal wasting, intubated, NG tube, EYES: PERRL, extraocular movements intact, sclera anicteric, conjunctiva clear. No ptosis. ENT: Ears normal, nares patent, oropharynx clear without exudates, moist mucous membranes. NECK: Trachea midline, full range of motion, supple. LUNGS: Breath sounds diminished on right basilar, crackles on right basilar, clear to auscultation bilaterally, no wheezes, no accessory muscle use. HEART: tachycardic, regular rhythm, S1, S2 without murmur, rub or gallop. ABDOMEN: thin, Soft, nontender, nondistended, normoactive bowel sounds, no guarding, no rebound, no hepatosplenomegaly, no masses. EXTREMITIES: 2+ pulses, warm, well-perfused, no edema. NEUROLOGICAL: Cranial nerves II through XII grossly intact, gait not observed. PSYCH: Normal mood, normal affect. SKIN: Warm, dry, normal turgor, sacral ulcer (unstagable), peritoneal ulcer Labs: Hb 7.9, INR 1.6 07/26/20 05:15 07/26/20 05:15 INR, PTT INR 1.62 (0.83-1.09) H 07/26/20 05:15 Fibrinogen 344.0 mg/dL (238-498) 07/21/20 06:00 Impression/Plan Impression/Plan: Impression/Plan: ASSESSMENT/PLAN: 35 yo female with PMH of malnutrition (anorexia vs bulemia), cirrhosis (2/2 alcohol abuse), heroin abuse in ICU with sepsis and acute respiratory failure, #Neuro - Alert, responsive, able to communicate with blinking and writing - Dilaudid 1.0, q8 - Fentanyl 100mcg - Precedix (400 mcg) #CV - Hypotension (90/69) (MAP 75) - Vasporessin (3 units) #Respiratory - Acute respiratory failure - Tracheotomy (07/25) by Dr. Gill - Vent Setting: RR 14, TV 350, O2 80%, PEEP 5, needed to increase O2 due to desating #PEN/GI - Pt on NG tube feeding currently - Supplements - K replacement - Phos replacement - Folic Acid - Thiamine - PEG Tube scheduled for 07/[address] Barkley - consented by phone from mother, pt agreeable to plan - Presurgery Recs for 07/26 -NPO after midnight -Hold heparin tonight -D5 & 1/2NS due to hypoglycemia when off tube feds, monitor glucose -IR nurse will administer prep - INR 1.6, IR needs <1.5 -FFP (1unit), Vit K (10) given -Check INR at 5pm -Recheck IRN at 3am, give FFP if >1.5 #ID - Septic - UTI - Indwelling mistry - Urine cultures: G-, lactose fermenting, bacilli - Pneumonia - consistent left lower lobe infiltrates vs atelectasis - new right lower atelectasis -Antibiotics (per ID recs) - start Meropanem - discontinue Zosyn - discontinue Vanco #Heme/Onc - Hb 7.9 - Plt wnl DVT Prophylaxis: -Heparin (500, BID) -Will hold 07/26 night for PEG tube placement 07/27 Lines: Central Line (right IJ) 07/24 Visit type - Emergency Visit Emergency Visit: Yes ED Registration Date: 07/01/20 Care time: The patient presented to the Emergency Department on the above date and was hospitalized for further evaluation of their emergent condition. - New Patient This patient is new to me today: No - Critical Care Critical Care patient: No ATTENDING PHYSICIAN STATEMENT I saw and evaluated the patient. I reviewed the resident's note and discussed the case with the resident. I agree with the resident's findings and plan as documented. SUBJECTIVE: OBJECTIVE: ASSESSMENT AND PLAN:
[2020-07-26 09:01] LABS: BILIRUBIN,TOTAL 0.4 mg/dL (0.2-1)
[2020-07-26 09:07] LABS: CALCIUM 6.2 mg/dL (8.5-10.1)
[2020-07-26] MEDS: HEPARIN NA (PORCINE) 5,000 UNITS/ML 1ML VIAL SQ SCH (09:27)
[2020-07-26] MEDS: THIAMINE HCL 200 MG/2 ML VIAL IVPB SCH (09:27)
[2020-07-26] MEDS: FOLIC ACID 1 MG TABLET (FP) NGT SCH (09:27)
[2020-07-26] MEDS: POTASSIUM CHLORIDE ORAL LIQUID 20 MEQ/15 ML PO SCH (09:27)
[2020-07-26 09:29] LABS: CREATININE < 0.2 mg/dL (0.55-1.3)
[2020-07-26] MEDS ORDERED: PT OWN MED DRAWER 7, Y5N ONE (09:30)
[2020-07-26] MEDS: MULTIVIT-MINERALS ORAL LIQUID NGT SCH (09:31)
[2020-07-26] MEDS: AMINO ACIDS/PROTEIN HYDROLYS 30 ML LIQUID.PKT PO SCH ×3 (09:32→17:10)
[2020-07-26] MEDS: ZINC OXIDE 20% TOPICAL OINTMENT 30 GM TUBE TP SCH (09:33)
[2020-07-26] MEDS ORDERED: HYDROmorphone HCl 2 MG/ML VIAL IVPUSH PRN ×2 (10:14→13:35)
--- NOTE | 2020-07-26 10:34 | PN ---
Progress Note, Physician History of Present Illness: awake/alert s/p trach on pressors - Current Medication List Current Medications: Active Medications Acetaminophen (Ofirmev Injection -) 500 mg IVPB Q6H PRN PRN Reason: FEVER Last Admin: 07/26/20 03:35 Dose: 500 mg Documented by: Amino Acids (Prosource No Carb Liquid Pkt) 30 ml PO DAILY [facility] Last Admin: 07/26/20 09:32 Dose: 30 ml Documented by: Banana Based Medical Food (Banatrol Plus Powder Packet) 1 packet GT TID RAUL Last Admin: 07/26/20 06:04 Dose: 1 packet Documented by: Dextrose (D50w (Vial) -) 12.5 gm IVPUSH PRN PRN PRN Reason: HYPOGLYCEMIA Last Admin: 07/08/20 07:38 Dose: 12.5 gm Documented by: Folic Acid (Folic Acid -) 1 mg NGT DAILY [facility] Last Admin: 07/26/20 09:27 Dose: 1 mg Documented by: Heparin Sodium (Porcine) (Heparin -) 5,000 unit SQ BID RAUL Last Admin: 07/26/20 09:27 Dose: 5,000 unit Documented by: Hydromorphone HCl (Dilaudid Vial -) 1 mg IVPUSH Q8H PRN PRN Reason: PAIN LEVEL 7 - 10 Last Admin: 07/26/20 10:24 Dose: 1 mg Documented by: Dexmedetomidine/Sodium Chloride (Precedex 400 Mcg/100 Ml Inject) 400 mcg in 100 mls @ 1.542 mls/hr IVPB TITR RAUL Last Admin: 07/26/20 05:09 Dose: 0.7 mcg/kg/hr, 5.398 mls/hr Documented by: Vasopressin 40 units/ Sodium (Chloride) 100 mls @ 5 mls/hr IVPB ASDIR RAUL; Protocol Last Admin: 07/26/20 05:09 Dose: 3 units/hr, 7.5 mls/hr Documented by: Meropenem 1 gm/ Dextrose 100 mls @ 200 mls/hr IVPB Q8H-IV RAUL Lidocaine HCl (Xylocaine 5% Top. Ointment) 1 applic TP DAILY [facility] Last Admin: 07/26/20 09:33 Dose: 1 applic Documented by: Multi-Ingredient Ointment (Zinc Oxide) 1 applic TP DAILY [facility] Last Admin: 07/26/20 09:33 Dose: 1 applic Documented by: Multivitamins/Minerals (Certavite-Antioxidant Liquid) 15 ml NGT DAILY [facility] Last Admin: 07/26/20 09:31 Dose: 15 ml Documented by: Potassium Chloride (Potassium Chloride Oral Liquid) 40 meq PO DAILY [facility] Last Admin: 07/26/20 09:27 Dose: 40 meq Documented by: Potassium Phos/Sodium Phos (Phos-Nak Packet -) 1 packet PO TID [facility] Last Admin: 07/26/20 06:04 Dose: 1 packet Documented by: Thiamine HCl (Vitamin B1 Injection -) 100 mg IVPB DAILY [facility] Last Admin: 07/26/20 09:27 Dose: 100 mg Documented by: - Objective Vital Signs: Vital Signs Temperature 99.5 F 07/26/20 06:00 Pulse Rate 57 L 07/26/20 08:07 Respiratory Rate 18 07/26/20 09:00 Blood Pressure 79/57 L 07/26/20 08:00 O2 Sat by Pulse Oximetry (%) 99 07/26/20 09:00 Constitutional: Yes: Other (failure to thrive) Cardiovascular: Yes: S1, S2 Respiratory: Yes: Mechanically Ventilated, Other (s/p trach) Gastrointestinal: Yes: Normal Bowel Sounds, Soft Musculoskeletal: Yes: WNL Extremities: Yes: WNL Neurological: Yes: Alert Labs: CBC, BMP 07/26/20 05:15 07/26/20 05:15 INR, PTT INR 1.62 (0.83-1.09) H 07/26/20 05:15 Fibrinogen 344.0 mg/dL (238-498) 07/21/20 06:00 Assessment/Plan Pneumonia likely Aspiration UTI Sepsis Hyponatremia SBO resolving Alcohol/Heroin Abuse Anemia Failure to Thrive Severe Protein Calorie Malnutrition uti vesico intestinal fistula plan ct abx await for sensitivities close watch nutrition asp precautions rest as per icu cc 38 min
[2020-07-26] MEDS ORDERED: PHYTONADIONE 10 MG/1 ML AMP IVPB ONE (10:51)
--- NOTE | 2020-07-26 10:54 | PN ---
Teaching Attending Note Name of Resident: Masha Clark ATTENDING PHYSICIAN STATEMENT I saw and evaluated the patient. I reviewed the resident's note and discussed the case with the resident. I agree with the resident's findings and plan as documented. SUBJECTIVE: I saw and evaluated the patient. I reviewed the resident's note and discussed the case with the resident. I agree with the resident's findings and plan as documented. SUBJECTIVE: Patient seen and examined in the ICU. S/P tracheostomy yesterday. Awake and alert and responsive. Vasopressin @ 3 units for hemodynamic support. Reports diffuse pain. OBJECTIVE: Intake & Output 07/23/20 07/24/20 07/25/20 07/26/20 23:59 23:59 23:59 23:59 Intake Total 1423.4 2675 2993 1039.8 Output Total 500 1020 1100 175 Balance 923.4 1655 1893 864.8 Weight 63 lb 4.363 oz 67 lb 14.4 oz 68 lb 68 lb 9.6 oz Last Vital Signs Temp Pulse Resp BP Pulse Ox 99.5 F 57 L 18 79/57 L 99 07/26/20 06:00 07/26/20 08:07 07/26/20 09:00 07/26/20 08:00 07/26/20 09:00 Gen: Awake, Trached, cachectic Heart: RRR Lung: Trached, vented, scattered rhonchi Abd: soft, nontender, (+) BS Ext: no edema Laboratory Results - last 24 hr 07/25/20 07/25/20 07/25/20 11:08 14:08 20:13 WBC RBC Hgb Hct MCV MCH MCHC RDW Plt Count MPV PT with INR INR PTT (Actin FS) Sodium Potassium Chloride Carbon Dioxide Anion Gap BUN Creatinine Est GFR (CKD-EPI)AfAm Est GFR (CKD-EPI)NonAf POC Glucometer 157 118 95 Random Glucose Calcium Phosphorus Magnesium Total Bilirubin AST ALT Alkaline Phosphatase Total Protein Albumin 07/26/20 07/26/20 07/26/20 05:15 05:15 05:15 WBC 8.5 RBC 2.67 L Hgb 7.9 L Hct 23.3 L MCV 87.5 MCH 29.5 MCHC 33.7 RDW 17.7 H Plt Count 244 MPV 8.7 PT with INR 19.20 H INR 1.62 H PTT (Actin FS) 30.5 Sodium 136 Potassium 3.6 Chloride 109 H Carbon Dioxide 21 Anion Gap 6 L BUN 19.6 H Creatinine < 0.2 L Est GFR (CKD-EPI)AfAm 196.46 Est GFR (CKD-EPI)NonAf 169.51 POC Glucometer Random Glucose 135 H Calcium 6.2 L* Phosphorus 2.7 Magnesium 1.6 L Total Bilirubin 0.4 AST 19 ALT 25 Alkaline Phosphatase 209 H Total Protein 3.5 L Albumin 0.9 L ASSESSMENT AND PLAN: Acute Hypoxic Respiratory Failure S/P Trach Septic Shock Pneumonia likely Aspiration UTI Sepsis Hyponatremia Small Bowel Obstruction Alcohol/Heroin Abuse Anemia/Thrombocytopenia Failure to Thrive Severe Protein Calorie Malnutrition Refeeding Syndrome - Pressors to maintain MAP > 65 - monitor urine output, creatinine - replete lytes - continue antibiotics - titrate FiO2 to keep SpO2 >95% - spontaneous breathing trials as tolerated - Enteral feeds - DVT/GI prophylaxis - Continue ICU monitoring for pressors Dr Babb Critical care time spent in reviewing chart, evaluating patient and formulating plan 35 min
[2020-07-26] MEDS ORDERED: MAGNESIUM SULF 50% (8.12 MEQ/2 ML-1 GM VIAL) IVPB ONE (11:20)
[2020-07-26] MEDS ORDERED: NAPH,MB-DB/K PH,MBDB POWDER PACKET PO ONE (11:20)
[2020-07-26] MEDS ORDERED: MAGNESIUM 1GM/D5W - 1 GM/100 ML IVPB IVPB ONE (11:30)
--- NOTE | 2020-07-26 13:05 | PN ---
Progress Note, APPLIED ANTHROPOLOGIST - Note Progress Note: Selected Entries 07/25/20 07/25/20 07/26/20 14:34 15:00 00:00 Supper NPO NPO Temperature Pulse Rate 62 Blood Pressure 95/64 Oxygen Delivery Method 07/26/20 07/26/20 07/26/20 01:00 03:00 04:00 Supper Temperature 100.5 F H 98.9 F 99.1 F Pulse Rate 61 58 L 67 Blood Pressure 95/64 89/65 L 104/47 L Oxygen Delivery Method 07/26/20 07/26/20 07/26/20 04:41 05:09 06:00 Supper Temperature 99.5 F Pulse Rate 63 65 Blood Pressure 85/59 L 86/59 L Oxygen Delivery Mechanical Method Ventilator 07/26/20 07/26/20 07/26/20 08:00 08:07 09:00 Supper Temperature Pulse Rate 62 57 L Blood Pressure 79/57 L Oxygen Delivery Mechanical Mechanical Method Ventilator Ventilator 07/26/20 10:00 Supper Temperature 99.9 F H Pulse Rate 65 Blood Pressure 86/63 L Oxygen Delivery Method Laboratory Tests 07/26/20 05:15 WBC 8.5 Attempting to verbalize, Aponic, new trach, Pending PEG placement- reviewed with RD Plan is for PMV assessment to follow. May need to downsize trach for PMV success.
--- NOTE | 2020-07-26 15:48 | PN ---
Progress Note, Physician History of Present Illness: Pt seen and examine at bedside. She is more awake and interactive. She is s/p trach. - Current Medication List Current Medications: Active Medications Acetaminophen (Ofirmev Injection -) 500 mg IVPB Q6H PRN PRN Reason: FEVER Last Admin: 07/26/20 11:23 Dose: 500 mg Documented by: Amino Acids (Prosource No Carb Liquid Pkt) 30 ml PO BID@0800,1730 [facility] Banana Based Medical Food (Banatrol Plus Powder Packet) 1 packet GT TID [facility] Last Admin: 07/26/20 13:03 Dose: 1 packet Documented by: Dextrose (D50w (Vial) -) 12.5 gm IVPUSH PRN PRN PRN Reason: HYPOGLYCEMIA Last Admin: 07/08/20 07:38 Dose: 12.5 gm Documented by: Folic Acid (Folic Acid -) 1 mg NGT DAILY [facility] Last Admin: 07/26/20 09:27 Dose: 1 mg Documented by: Heparin Sodium (Porcine) (Heparin -) 5,000 unit SQ BID [facility] Last Admin: 07/26/20 09:27 Dose: 5,000 unit Documented by: Hydromorphone HCl (Dilaudid Vial -) 1 mg IVPUSH Q3H PRN PRN Reason: PAIN LEVEL 7 - 10 Dexmedetomidine/Sodium Chloride (Precedex 400 Mcg/100 Ml Inject) 400 mcg in 100 mls @ 1.542 mls/hr IVPB TITR [facility] Last Admin: 07/26/20 05:09 Dose: 0.7 mcg/kg/hr, 5.398 mls/hr Documented by: Vasopressin 40 units/ Sodium (Chloride) 100 mls @ 5 mls/hr IVPB ASDIR [facility]; Protocol Last Admin: 07/26/20 05:09 Dose: 3 units/hr, 7.5 mls/hr Documented by: Meropenem 1 gm/ Dextrose 100 mls @ 200 mls/hr IVPB Q8H-IV [facility] Lidocaine HCl (Xylocaine 5% Top. Ointment) 1 applic TP DAILY [facility] Last Admin: 07/26/20 09:33 Dose: 1 applic Documented by: Multi-Ingredient Ointment (Zinc Oxide) 1 applic TP DAILY [facility] Last Admin: 07/26/20 09:33 Dose: 1 applic Documented by: Multivitamins/Minerals (Certavite-Antioxidant Liquid) 15 ml NGT DAILY [facility] Last Admin: 07/26/20 09:31 Dose: 15 ml Documented by: Potassium Chloride (Potassium Chloride Oral Liquid) 40 meq PO DAILY [facility] Last Admin: 07/26/20 09:27 Dose: 40 meq Documented by: Potassium Phos/Sodium Phos (Phos-Nak Packet -) 1 packet PO TID [facility] Last Admin: 07/26/20 13:03 Dose: 1 packet Documented by: Thiamine HCl (Vitamin B1 Injection -) 100 mg IVPB DAILY [facility] Last Admin: 07/26/20 09:27 Dose: 100 mg Documented by: - Objective Vital Signs: Vital Signs Temperature 99.9 F H 07/26/20 12:00 Pulse Rate 74 07/26/20 12:00 Respiratory Rate 21 H 07/26/20 15:35 Blood Pressure 85/57 L 07/26/20 12:00 O2 Sat by Pulse Oximetry (%) 100 07/26/20 15:35 Constitutional: Yes: Calm, Cachectic Eyes: Yes: Conjunctiva Clear HENT: Yes: Atraumatic Neck: Yes: Supple Cardiovascular: Yes: S1, S2 Respiratory: Yes: Mechanically Ventilated Gastrointestinal: Yes: Normal Bowel Sounds, Soft Genitourinary: Yes: Uribe Present Musculoskeletal: Yes: Muscle Weakness Edema: No Neurological: Yes: Oriented Labs: CBC, BMP 07/26/20 05:15 07/26/20 05:15 INR, PTT INR 1.62 (0.83-1.09) H 07/26/20 05:15 Fibrinogen 344.0 mg/dL (238-498) 07/21/20 06:00 Problem List - Problems (1) Hypoglycemia Code(s): E16.2 - HYPOGLYCEMIA, UNSPECIFIED (2) Sepsis Code(s): A41.9 - SEPSIS, UNSPECIFIED ORGANISM Qualifiers: Sepsis type: sepsis due to unspecified organism Sepsis acute organ dysfunction status: unspecified Qualified Code(s): A41.9 - Sepsis, unspecified organism (3) Hypoalbuminemia Code(s): E88.09 - OTH DISORDERS OF PLASMA-PROTEIN METABOLISM, NEC (4) Hyponatremia Code(s): E87.1 - HYPO-OSMOLALITY AND HYPONATREMIA Assessment/Plan Current Medications Generic Name Dose Route Start Last Admin Trade Name Freq PRN Reason Stop Dose Admin Acetaminophen 500 mg 07/25/20 03:37 07/26/20 11:23 Ofirmev Injection - IVPB 500 mg Q6H PRN Administration FEVER Amino Acids 30 ml 07/26/20 14:15 Prosource No Carb Liquid Pkt PO BID@0800,1730 [facility] Banana Based Medical Food 1 packet 07/10/20 22:00 07/26/20 13:03 Banatrol Plus Powder Packet GT 1 packet TID [facility] Administration Dextrose 12.5 gm 07/08/20 07:08 07/08/20 07:38 D50w (Vial) - IVPUSH 12.5 gm PRN PRN Administration HYPOGLYCEMIA Folic Acid 1 mg 07/06/20 10:00 07/26/20 09:27 Folic Acid - NGT 1 mg DAILY [facility] Administration Heparin Sodium (Porcine) 5,000 unit 07/20/20 10:00 07/26/20 09:27 Heparin - SQ 5,000 unit BID [facility] Administration Hydromorphone HCl 1 mg 07/26/20 13:39 Dilaudid Vial - IVPUSH Q3H PRN PAIN LEVEL 7 - 10 Dexmedetomidine/Sodium Chloride 400 mcg in 100 mls @ 1.542 mls/hr 07/25/20 11:15 07/26/20 05:09 Precedex 400 Mcg/100 Ml Inject IVPB 0.7 mcg/kg/hr TITR [facility] 5.398 mls/hr Administration 0.2 MCG/KG/HR Vasopressin 40 units/ Sodium 100 mls @ 5 mls/hr 07/25/20 16:30 07/26/20 05:09 Chloride IVPB 3 units/hr ASDIR [facility] 7.5 mls/hr Administration Protocol 2 UNITS/HR Meropenem 1 gm/ Dextrose 100 mls @ 200 mls/hr 07/26/20 18:00 IVPB Q8H-IV [facility] Lidocaine HCl 1 applic 07/25/20 21:50 07/26/20 09:33 Xylocaine 5% Top. Ointment TP 1 applic DAILY [facility] Administration Multi-Ingredient Ointment 1 applic 07/19/20 13:30 07/26/20 09:33 Zinc Oxide TP 1 applic DAILY [facility] Administration Multivitamins/Minerals 15 ml 07/06/20 11:45 07/26/20 09:31 Certavite-Antioxidant Liquid NGT 15 ml DAILY [facility] Administration Potassium Chloride 40 meq 07/17/20 12:30 07/26/20 09:27 Potassium Chloride Oral Liquid PO 40 meq DAILY [facility] Administration Potassium Phos/Sodium Phos 1 packet 07/09/20 14:00 07/26/20 13:03 Phos-Nak Packet - PO 1 packet TID [facility] Administration Thiamine HCl 100 mg 07/11/20 12:45 07/26/20 09:27 Vitamin B1 Injection - IVPB 100 mg DAILY [facility] Administration Impression 1. azotemia 2. hyponatremia 3. hyperkalemia 4. hypotension 5. sepsis 6. sbo 7. uti 8. liver cirrhosis 9. hypoalbuminemia 10. etoh abuse 11. substance abuse 12. psoriasis 13. acute resp failure 14. malnutrition Plan - cont feeds - monitor lytes - monitor glucose - discussed with dietary - vent support
[2020-07-26] MEDS ORDERED: DEXTROSE 5%-WATER 100 ML IVPB ONE ×2 (16:42→17:45)
[2020-07-26] MEDS ORDERED: MEROPENEM 1 GM VIAL (RESTRICTED TO ID) IVPB ONE ×2 (16:42→17:45)
[2020-07-26] MEDS: MEROPENEM 1 GM in DEXTROSE 5%-WATER 100 ML IVPB SCH (17:10)
[2020-07-26] MEDS: HYDROmorphone HCl 2 MG/ML VIAL IVPUSH PRN ×2 (17:16→20:31)
[2020-07-26] MEDS ORDERED: VASOPRESSIN 20 UNITS/ML VIAL IV ONE (17:47)
[2020-07-26 17:54] LABS: INR 1.7 (0.83-1.09); PROTHROMBIN TIME (PATIENT) 20.2 SEC (9.7-13.0)
[2020-07-26] MEDS ORDERED: DEXTROSE 5%-LACTATED RINGERS 1,000 ML IV SCH (18:15)
[2020-07-26 18:47] LABS: INR 1.38 (0.83-1.09); PROTHROMBIN TIME (PATIENT) 16.3 SEC (9.7-13.0)
[2020-07-26 18:50] LABS: ACTIVATED PTT 30.3 SECONDS (25.2-36.5)
--- NOTE | 2020-07-26 21:43 | PN ---
Progress Note, Physician - Current Medication List Current Medications: Active Medications Acetaminophen (Ofirmev Injection -) 500 mg IVPB Q6H PRN PRN Reason: FEVER Last Admin: 07/26/20 11:23 Dose: 500 mg Documented by: Amino Acids (Prosource No Carb Liquid Pkt) 30 ml PO BID@0800,1730 [facility] Last Admin: 07/26/20 17:10 Dose: 30 ml Documented by: Banana Based Medical Food (Banatrol Plus Powder Packet) 1 packet GT TID [facility] Last Admin: 07/26/20 13:03 Dose: 1 packet Documented by: Dextrose (D50w (Vial) -) 12.5 gm IVPUSH PRN PRN PRN Reason: HYPOGLYCEMIA Last Admin: 07/08/20 07:38 Dose: 12.5 gm Documented by: Folic Acid (Folic Acid -) 1 mg NGT DAILY [facility] Last Admin: 07/26/20 09:27 Dose: 1 mg Documented by: Heparin Sodium (Porcine) (Heparin -) 5,000 unit SQ BID [facility] Last Admin: 07/26/20 09:27 Dose: 5,000 unit Documented by: Hydromorphone HCl (Dilaudid Vial -) 1 mg IVPUSH Q3H PRN PRN Reason: PAIN LEVEL 7 - 10 Last Admin: 07/26/20 20:31 Dose: 1 mg Documented by: Dexmedetomidine/Sodium Chloride (Precedex 400 Mcg/100 Ml Inject) 400 mcg in 100 mls @ 1.542 mls/hr IVPB TITR [facility] Last Admin: 07/26/20 18:11 Dose: Not Given Documented by: Vasopressin 40 units/ Sodium (Chloride) 100 mls @ 5 mls/hr IVPB ASDIR RA[facility]; Protocol Last Admin: 07/26/20 18:00 Dose: 3 units/hr, 7.5 mls/hr Documented by: Meropenem 1 gm/ Dextrose 100 mls @ 200 mls/hr IVPB Q8H-IV [facility] Last Admin: 07/26/20 17:10 Dose: 200 mls/hr Documented by: Dextrose/Lactated Ringer's (D5-Lr -) 1,000 mls @ 42 mls/hr IV ASDIR [facility] Last Admin: 07/26/20 18:12 Dose: 42 mls/hr Documented by: Lidocaine HCl (Xylocaine 5% Top. Ointment) 1 applic TP DAILY [facility] Last Admin: 07/26/20 09:33 Dose: 1 applic Documented by: Multi-Ingredient Ointment (Zinc Oxide) 1 applic TP DAILY [facility] Last Admin: 07/26/20 09:33 Dose: 1 applic Documented by: Multivitamins/Minerals (Certavite-Antioxidant Liquid) 15 ml NGT DAILY [facility] Last Admin: 07/26/20 09:31 Dose: 15 ml Documented by: Potassium Chloride (Potassium Chloride Oral Liquid) 40 meq PO DAILY [facility] Last Admin: 07/26/20 09:27 Dose: 40 meq Documented by: Potassium Phos/Sodium Phos (Phos-Nak Packet -) 1 packet PO TID [facility] Last Admin: 07/26/20 13:03 Dose: 1 packet Documented by: Thiamine HCl (Vitamin B1 Injection -) 100 mg IVPB DAILY [facility] Last Admin: 07/26/20 09:27 Dose: 100 mg Documented by: - Objective Vital Signs: Vital Signs Temperature 97.9 F 07/26/20 18:00 Pulse Rate 64 07/26/20 18:00 Respiratory Rate 16 07/26/20 20:00 Blood Pressure 82/61 L 07/26/20 18:00 O2 Sat by Pulse Oximetry (%) 100 07/26/20 20:00 Labs: CBC, BMP 07/26/20 05:15 07/26/20 05:15 INR, PTT INR 1.38 (0.83-1.09) H 07/26/20 18:10 Fibrinogen 344.0 mg/dL (238-498) 07/21/20 06:00 Problem List - Problems (1) Respiratory failure Code(s): J96.90 - RESPIRATORY FAILURE, UNSP, UNSP W HYPOXIA OR HYPERCAPNIA (2) Sepsis Code(s): A41.9 - SEPSIS, UNSPECIFIED ORGANISM Qualifiers: Sepsis type: sepsis due to unspecified organism Sepsis acute organ dysfunction status: unspecified Qualified Code(s): A41.9 - Sepsis, unspecified organism (3) Anemia Code(s): D64.9 - ANEMIA, UNSPECIFIED (4) At risk for electrolyte imbalance Code(s): Z91.89 - OTH PERSONAL RISK FACTORS, NOT ELSEWHERE CLASSIFIED (5) SBO (small bowel obstruction) Code(s): K56.609 - UNSP INTESTNL OBST, UNSP TO PARTIAL VERSUS COMPLETE OBST (6) Liver cirrhosis, alcoholic Code(s): K70.30 - ALCOHOLIC CIRRHOSIS OF LIVER WITHOUT ASCITES (7) Hypoalbuminemia Code(s): E88.09 - OTH DISORDERS OF PLASMA-PROTEIN METABOLISM, NEC (8) Substance abuse Code(s): F19.10 - OTHER PSYCHOACTIVE SUBSTANCE ABUSE, UNCOMPLICATED (9) Cachexia Code(s): R64 - CACHEXIA (10) Severe malnutrition Code(s): E43 - UNSPECIFIED SEVERE PROTEIN-CALORIE MALNUTRITION (11) Sacral ulcer Code(s): L98.429 - NON-PRESSURE CHRONIC ULCER OF BACK WITH UNSPECIFIED SEVERITY
[2020-07-27] MEDS: HYDROmorphone HCl 2 MG/ML VIAL IVPUSH PRN ×6 (02:28→20:35)
[2020-07-27] MEDS ORDERED: MEROPENEM 1 GM VIAL (RESTRICTED TO ID) IVPB ONE ×2 (02:32→09:11)
[2020-07-27] MEDS ORDERED: DEXTROSE 5%-WATER 100 ML IVPB ONE ×2 (02:32→09:11)
[2020-07-27] MEDS: MEROPENEM 1 GM in DEXTROSE 5%-WATER 100 ML IVPB SCH ×2 (02:34→09:45)
[2020-07-27 04:35] LABS: BASO % 0.2 % (0-2.0); EOS % 0.7 % (0-4.5); HEMATOCRIT 22.6 % (32.4-45.2); HEMOGLOBIN 7.7 GM/dL (10.7-15.3); LYMPH % 5.2 % (8-40); MCH 30.4 pg (25.7-33.7); MCHC 34.3 g/dl (32.0-36.0); MEAN CELL VOLUME 88.7 fl (80-96); MEAN PLT VOLUME 8.4 fl (7.5-11.1); MONO % 3.8 % (3.8-10.2); NEUT % 90.1 % (42.8-82.8); PLATELET COUNT 243 K/MM3 (134-434); RBC 2.55 M/mm3 (3.60-5.2); RDW 18.4 % (11.6-15.6); WHITE BLOOD COUNT 7.6 K/mm3 (4.0-10.0)
[2020-07-27 04:57] LABS: ANION GAP 5 MMOL/L (8-16); BLOOD UREA NITROGEN 18.9 mg/dL (7-18); CHLORIDE 105 mmol/L (98-107); CO2 23 mmol/L (21-32); GLUCOSE,RANDOM 69 mg/dL (74-106); MAGNESIUM 1.8 mg/dL (1.8-2.4); POTASSIUM 3.9 mmol/L (3.5-5.1); SODIUM 133 mmol/L (136-145)
[2020-07-27 05:00] LABS: INR 1.53 (0.83-1.09); PROTHROMBIN TIME (PATIENT) 18.1 SEC (9.7-13.0)
[2020-07-27] MEDS: BANATROL PLUS POWDER PACKET GT SCH ×3 (05:38→21:18)
[2020-07-27] MEDS: NAPH,MB-DB/K PH,MBDB POWDER PACKET PO SCH ×3 (05:38→21:19)
[2020-07-27] MEDS ORDERED: PHYTONADIONE 10 MG/1 ML AMP IVPB ONE (05:55)
[2020-07-27] MEDS ORDERED: DEXTROSE 50%-WATER - 25 GM/50 ML VIAL IVPUSH ONE (05:55)
[2020-07-27] MEDS ORDERED: DEXTROSE 50%-WATER 25 GM/50 ML DISP.SYRIN ONE ×2 (06:05→21:57)
[2020-07-27] MEDS: DEXTROSE 50%-WATER - 25 GM/50 ML VIAL IVPUSH PRN ×2 (06:22→22:02)
[2020-07-27 06:33] LABS: CREATININE < 0.2 mg/dL (0.55-1.3)
[2020-07-27 06:47] LABS: CALCIUM 6.6 mg/dL (8.5-10.1)
[2020-07-27] MEDS: AMINO ACIDS/PROTEIN HYDROLYS 30 ML LIQUID.PKT PO SCH (07:26)
--- NOTE | 2020-07-27 07:39 | PN ---
Progress Note, Physician History of Present Illness: Pt evaluated at bedside. Pain has improved with the new pain regimen. Overnight: Blood pressure decreased requiring an increase in vasopressin from 3 to 6. Oxygenation has improved allowing a decrease in O2 from 80 to 40. - Current Medication List Current Medications: Active Medications Amino Acids (Prosource No Carb Liquid Pkt) 30 ml PO BID@0800,1730 [facility] Last Admin: 07/27/20 07:26 Dose: Not Given Documented by: Banana Based Medical Food (Banatrol Plus Powder Packet) 1 packet GT TID [facility] Last Admin: 07/27/20 05:38 Dose: 1 packet Documented by: Dextrose (D50w (Vial) -) 12.5 gm IVPUSH PRN PRN PRN Reason: HYPOGLYCEMIA Last Admin: 07/27/20 06:22 Dose: 12.5 gm Documented by: Folic Acid (Folic Acid -) 1 mg NGT DAILY [facility] Last Admin: 07/26/20 09:27 Dose: 1 mg Documented by: Heparin Sodium (Porcine) (Heparin -) 5,000 unit SQ BID [facility] Last Admin: 07/26/20 09:27 Dose: 5,000 unit Documented by: Hydromorphone HCl (Dilaudid Vial -) 1 mg IVPUSH Q3H PRN PRN Reason: PAIN LEVEL 7 - 10 Last Admin: 07/27/20 06:57 Dose: 1 mg Documented by: Dexmedetomidine/Sodium Chloride (Precedex 400 Mcg/100 Ml Inject) 400 mcg in 100 mls @ 1.542 mls/hr IVPB TITR [facility] Last Admin: 07/26/20 18:11 Dose: Not Given Documented by: Vasopressin 40 units/ Sodium (Chloride) 100 mls @ 5 mls/hr IVPB ASDIR [facility]; Protocol Last Titration: 07/26/20 19:05 Dose: 6 units/hr, 15 mls/hr Documented by: Meropenem 1 gm/ Dextrose 100 mls @ 200 mls/hr IVPB Q8H-IV [facility] Last Admin: 07/27/20 02:34 Dose: 200 mls/hr Documented by: Dextrose/Lactated Ringer's (D5-Lr -) 1,000 mls @ 42 mls/hr IV ASDIR [facility] Last Admin: 07/26/20 18:12 Dose: 42 mls/hr Documented by: Lidocaine HCl (Xylocaine 5% Top. Ointment) 1 applic TP DAILY [facility] Last Admin: 07/26/20 09:33 Dose: 1 applic Documented by: Multi-Ingredient Ointment (Zinc Oxide) 1 applic TP DAILY [facility] Last Admin: 07/26/20 09:33 Dose: 1 applic Documented by: Multivitamins/Minerals (Certavite-Antioxidant Liquid) 15 ml NGT DAILY [facility] Last Admin: 07/26/20 09:31 Dose: 15 ml Documented by: Potassium Chloride (Potassium Chloride Oral Liquid) 40 meq PO DAILY [facility] Last Admin: 07/26/20 09:27 Dose: 40 meq Documented by: Potassium Phos/Sodium Phos (Phos-Nak Packet -) 1 packet PO TID [facility] Last Admin: 07/27/20 05:38 Dose: 1 packet Documented by: Thiamine HCl (Vitamin B1 Injection -) 100 mg IVPB DAILY [facility] Last Admin: 07/26/20 09:27 Dose: 100 mg Documented by: - Objective Vital Signs: Vital Signs Temperature 97.9 F 07/26/20 19:00 Pulse Rate 52 L 07/27/20 04:00 Respiratory Rate 16 07/27/20 04:00 Blood Pressure 91/55 L 07/27/20 04:00 O2 Sat by Pulse Oximetry (%) 100 07/27/20 04:00 Additional Findings/Remarks: Additional Findings/Remarks: Vent Setting:RR 14, TV 350, FiO2 40%, PEEP 5 GENERAL: The patient is awake, alert, oriented, in no acute distress. HEAD: Normal with no signs of trauma, temporal wasting, intubated, NG tube, EYES: PERRL, extraocular movements intact, sclera anicteric, conjunctiva clear. No ptosis. ENT: Ears normal, nares patent, oropharynx clear without exudates, moist mucous membranes. NECK: Trachea midline, full range of motion, supple. LUNGS: Breath sounds diminished on right basilar, crackles on right base, clear to auscultation bilaterally, no wheezes, no accessory muscle use. HEART: tachycardic, regular rhythm, S1, S2 without murmur, rub or gallop. ABDOMEN: thin, Soft, nontender, nondistended, normoactive bowel sounds, no guarding, no rebound, no hepatosplenomegaly, no masses. EXTREMITIES: 2+ pulses, warm, well-perfused, no edema. NEUROLOGICAL: Cranial nerves II through XII grossly intact, gait not observed. PSYCH: Normal mood, normal affect. SKIN: Warm, dry, normal turgor, sacral ulcer (unstagable), peritoneal ulcer Labs: Hb 7.7 Phos 2.0 Mg 1.8 INR 1.53 CBC, BMP 07/27/20 04:05 07/27/20 04:05 INR, PTT INR 1.53 (0.83-1.09) H 07/27/20 04:05 Fibrinogen 344.0 mg/dL (238-498) 07/21/20 06:00 Impression/Plan Impression/Plan: Impression/Plan: ASSESSMENT/PLAN: 35 yo female with PMH of malnutrition (anorexia vs bulemia), cirrhosis (2/2 alcohol abuse), heroin abuse in ICU with sepsis and acute respiratory failure, #Neuro - Alert, responsive, able to communicate with blinking and writing - Pain managment has improved - Dilaudid 1g, q8 - Fentanyl 100mcg - Precedix (400 mcg) #CV - Hypotension (90/65) (MAP 75) - Vasporessin (6 units) #Respiratory - Acute respiratory failure - Tracheotomy (07/25) by Dr. Gill - Vent Setting: RR 14, TV 350, O2 40%, PEEP 5 #PEN/GI - Pt on NG tube feeding currently (increase feeding) - NG Tube Feeding Perative Tube feeds @ 30, titrate up to 55 - Supplements - K replacement - Mg, Phos replacement - Folic Acid - Thiamine - Vitamin C - Zinc - Pigtail Drain inserted to drain ascites (07/27) - PEG Tube scheduled for 07/[address] Barkley - consented by phone from mother, pt agreeable to plan - ascites found, preventing PEG tube insertion - Presurgery Recs for surgery (need to reschedule) -NPO after midnight -Held heparin tonight -D5 & 1/2NS due to hypoglycemia when off tube feds, monitor glucose -IR nurse will administer prep - INR 1.53 (3am), repeat INR 1.34 -Vit K (10) given -FFP x2 #ID - Septic - UTI - Indwelling mistry - Urine cultures: ESBL Klebsiella - Pneumonia - consistent left lower lobe infiltrates vs atelectasis - new right lower atelectasis -Antibiotics (per ID recs) - start Tigecycline - discontinue Meropanem - discontinue Zosyn - discontinue Vanco #Heme/Onc - Hb 7.7 - Plt wnl DVT Prophylaxis: -Hold Heparin (500, BID) -Will hold 07/26 night for PEG tube placement 07/27 Lines: Central Line (right IJ) 07/24 Visit type - Emergency Visit Emergency Visit: Yes ED Registration Date: 07/01/20 Care time: The patient presented to the Emergency Department on the above date and was hospitalized for further evaluation of their emergent condition. - New Patient This patient is new to me today: No - Critical Care Critical Care patient: Yes Total Critical Care Time (in minutes): 35 Critical Care Statement: The care of this patient involved high complexity decision making to prevent further life threatening deterioration of the patient's condition and/or to evaluate & treat vital organ system(s) failure or risk of failure. ATTENDING PHYSICIAN STATEMENT I saw and evaluated the patient. I reviewed the resident's note and discussed the case with the resident. I agree with the resident's findings and plan as documented. SUBJECTIVE: OBJECTIVE: ASSESSMENT AND PLAN:
[2020-07-27] MEDS: MULTIVIT-MINERALS ORAL LIQUID NGT SCH (09:19)
[2020-07-27] MEDS: POTASSIUM CHLORIDE ORAL LIQUID 20 MEQ/15 ML PO SCH (09:19)
[2020-07-27] MEDS: FOLIC ACID 1 MG TABLET (FP) NGT SCH (09:19)
[2020-07-27] MEDS: ZINC OXIDE 20% TOPICAL OINTMENT 30 GM TUBE TP SCH (09:45)
[2020-07-27] MEDS: LIDOCAINE HCL 5% TOP OINTMENT 50 GM TUBE TP SCH (09:45)
[2020-07-27] MEDS ORDERED: NAPH,MB-DB/K PH,MBDB POWDER PACKET PO ONE (09:45)
[2020-07-27] MEDS ORDERED: MAGNESIUM SULF 50% (8.12 MEQ/2 ML-1 GM VIAL) IVPB ONE (10:00)
[2020-07-27] MEDS: THIAMINE HCL 200 MG/2 ML VIAL IVPB SCH (10:20)
[2020-07-27] MEDS ORDERED: POTASSIUM PHOSPHATE 30 MM in DEXTROSE 5%-WATER - 250 ML IVPB ONE (10:48)
[2020-07-27] MEDS ORDERED: SODIUM CHLORIDE 1,000 ML IV STA (11:20)
[2020-07-27 11:30] LABS: INR 1.34 (0.83-1.09); PROTHROMBIN TIME (PATIENT) 15.9 SEC (9.7-13.0)
[2020-07-27] MEDS: DEXMEDETOMIDINE IN 0.9 % NACL 400 MCG/100 ML VIAL IVPB SCH (11:30)
--- NOTE | 2020-07-27 11:52 | PN ---
Progress Note, Physician History of Present Illness: awake/alert trached on pressors - Current Medication List Current Medications: Active Medications Amino Acids (Prosource No Carb Liquid Pkt) 30 ml PO BID@0800,1730 RAUL Last Admin: 07/27/20 07:26 Dose: Not Given Documented by: Banana Based Medical Food (Banatrol Plus Powder Packet) 1 packet GT TID RAUL Last Admin: 07/27/20 05:38 Dose: 1 packet Documented by: Dextrose (D50w (Vial) -) 12.5 gm IVPUSH PRN PRN PRN Reason: HYPOGLYCEMIA Last Admin: 07/27/20 06:22 Dose: 12.5 gm Documented by: Folic Acid (Folic Acid -) 1 mg NGT DAILY RAUL Last Admin: 07/27/20 09:19 Dose: Not Given Documented by: Heparin Sodium (Porcine) (Heparin -) 5,000 unit SQ BID [facility]UL Last Admin: 07/26/20 09:27 Dose: 5,000 unit Documented by: Hydromorphone HCl (Dilaudid Vial -) 1 mg IVPUSH Q3H PRN PRN Reason: PAIN LEVEL 7 - 10 Last Admin: 07/27/20 09:59 Dose: 1 mg Documented by: Dexmedetomidine/Sodium Chloride (Precedex 400 Mcg/100 Ml Inject) 400 mcg in 100 mls @ 1.542 mls/hr IVPB TITR RAUL Last Admin: 07/27/20 11:30 Dose: Not Given Documented by: Vasopressin 40 units/ Sodium (Chloride) 100 mls @ 5 mls/hr IVPB ASDIR RAUL; Protocol Last Titration: 07/26/20 19:05 Dose: 6 units/hr, 15 mls/hr Documented by: Meropenem 1 gm/ Dextrose 100 mls @ 200 mls/hr IVPB Q8H-IV RAUL Last Admin: 07/27/20 09:45 Dose: 200 mls/hr Documented by: Dextrose/Lactated Ringer's (D5-Lr -) 1,000 mls @ 42 mls/hr IV ASDIR RAUL Last Admin: 07/26/20 18:12 Dose: 42 mls/hr Documented by: Potassium Phosphate 30 mm/ (Dextrose) 260 mls @ 62.5 mls/hr IVPB ONCE ONE Stop: 07/27/20 14:57 Sodium Chloride (Normal Saline -) 1,000 mls @ 1,000 mls/hr IV ASDIR STA Stop: 07/27/20 12:19 Lidocaine HCl (Xylocaine 5% Top. Ointment) 1 applic TP DAILY [facility] Last Admin: 07/27/20 09:45 Dose: 1 applic Documented by: Multi-Ingredient Ointment (Zinc Oxide) 1 applic TP DAILY [facility] Last Admin: 07/27/20 09:45 Dose: 1 applic Documented by: Multivitamins/Minerals (Certavite-Antioxidant Liquid) 15 ml NGT DAILY [facility] Last Admin: 07/27/20 09:19 Dose: Not Given Documented by: Potassium Chloride (Potassium Chloride Oral Liquid) 40 meq PO DAILY [facility] Last Admin: 07/27/20 09:19 Dose: Not Given Documented by: Potassium Phos/Sodium Phos (Phos-Nak Packet -) 1 packet PO TID [facility] Last Admin: 07/27/20 05:38 Dose: 1 packet Documented by: Thiamine HCl (Vitamin B1 Injection -) 100 mg IVPB DAILY [facility] Last Admin: 07/27/20 10:20 Dose: 100 mg Documented by: - Objective Vital Signs: Vital Signs Temperature 97.8 F 07/27/20 10:00 Pulse Rate 57 L 07/27/20 10:00 Respiratory Rate 24 H 07/27/20 11:42 Blood Pressure 88/56 L 07/27/20 10:00 O2 Sat by Pulse Oximetry (%) 100 07/27/20 11:42 Constitutional: Yes: Calm, Other (failure to thrive) Cardiovascular: Yes: S1, S2 Respiratory: Yes: Mechanically Ventilated, Other (trach) Gastrointestinal: Yes: Normal Bowel Sounds, Soft Musculoskeletal: Yes: WNL Extremities: Yes: Other Neurological: Yes: Alert Labs: CBC, BMP 07/27/20 04:05 07/27/20 04:05 INR, PTT INR 1.34 (0.83-1.09) H 07/27/20 11:00 Fibrinogen 344.0 mg/dL (238-498) 07/21/20 06:00 - ....Imaging Chest X-ray: Report Reviewed, Image Reviewed Assessment/Plan Pneumonia likely Aspiration UTI Sepsis Hyponatremia SBO resolving Alcohol/Heroin Abuse Anemia Failure to Thrive Severe Protein Calorie Malnutrition 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
[2020-07-27] MEDS ORDERED: TIGECYCLINE 100 MG in DEXTROSE 5%-WATER - 100 ML IVPB ONE (11:55)
--- NOTE | 2020-07-27 12:16 | PN ---
Teaching Attending Note Name of Resident: Masha Clark ATTENDING PHYSICIAN STATEMENT I saw and evaluated the patient. I reviewed the resident's note and discussed the case with the resident. I agree with the resident's findings and plan as documented. SUBJECTIVE: I saw and evaluated the patient. I reviewed the resident's note and discussed the case with the resident. I agree with the resident's findings and plan as documented. SUBJECTIVE: Patient seen and examined in the ICU. Vented via Trach. Awake and alert and responsive. Vasopressin @ 6 units for hemodynamic support. Reports pain is better today. OBJECTIVE: Intake & Output 07/24/20 07/25/20 07/26/20 07/27/20 23:59 23:59 23:59 23:59 Intake Total 2675 2993 2176.6 1066 Output Total 1020 6780 917 9334 Balance 1655 1893 1701.6 -84 Weight 67 lb 14.4 oz 68 lb 68 lb 9.6 oz Last Vital Signs Temp Pulse Resp BP Pulse Ox 97.8 F 98 H 24 H 94/60 100 07/27/20 10:00 07/27/20 12:11 07/27/20 11:42 07/27/20 12:11 07/27/20 11:42 Active Medications Amino Acids (Prosource No Carb Liquid Pkt) 30 ml PO BID@0800,1730 [facility] Last Admin: 07/27/20 07:26 Dose: Not Given Documented by: Banana Based Medical Food (Banatrol Plus Powder Packet) 1 packet GT TID [facility] Last Admin: 07/27/20 05:38 Dose: 1 packet Documented by: Dextrose (D50w (Vial) -) 12.5 gm IVPUSH PRN PRN PRN Reason: HYPOGLYCEMIA Last Admin: 07/27/20 06:22 Dose: 12.5 gm Documented by: Folic Acid (Folic Acid -) 1 mg NGT DAILY [facility] Last Admin: 07/27/20 09:19 Dose: Not Given Documented by: Heparin Sodium (Porcine) (Heparin -) 5,000 unit SQ BID [facility] Last Admin: 07/26/20 09:27 Dose: 5,000 unit Documented by: Hydromorphone HCl (Dilaudid Vial -) 1 mg IVPUSH Q3H PRN PRN Reason: PAIN LEVEL 7 - 10 Last Admin: 07/27/20 09:59 Dose: 1 mg Documented by: Dexmedetomidine/Sodium Chloride (Precedex 400 Mcg/100 Ml Inject) 400 mcg in 100 mls @ 1.542 mls/hr IVPB TITR RAUL Last Admin: 07/27/20 11:30 Dose: Not Given Documented by: Vasopressin 40 units/ Sodium (Chloride) 100 mls @ 5 mls/hr IVPB ASDIR RAUL; Protocol Last Titration: 07/27/20 12:11 Dose: 4 units/hr, 10 mls/hr Documented by: Dextrose/Lactated Ringer's (D5-Lr -) 1,000 mls @ 42 mls/hr IV ASDIR RAUL Last Admin: 07/26/20 18:12 Dose: 42 mls/hr Documented by: Potassium Phosphate 30 mm/ (Dextrose) 260 mls @ 62.5 mls/hr IVPB ONCE ONE Stop: 07/27/20 14:57 Sodium Chloride (Normal Saline -) 1,000 mls @ 1,000 mls/hr IV ASDIR STA Stop: 07/27/20 12:19 Last Admin: 07/27/20 12:12 Dose: 1,000 mls/hr Documented by: Tigecycline 100 mg/ Dextrose 100 mls @ 100 mls/hr IVPB ONCE ONE; Protocol Stop: 07/27/20 12:54 Tigecycline 50 mg/ Dextrose 100 mls @ 100 mls/hr IVPB BID RAUL; Protocol Lidocaine HCl (Xylocaine 5% Top. Ointment) 1 applic TP DAILY [facility] Last Admin: 07/27/20 09:45 Dose: 1 applic Documented by: Multi-Ingredient Ointment (Zinc Oxide) 1 applic TP DAILY [facility] Last Admin: 07/27/20 09:45 Dose: 1 applic Documented by: Multivitamins/Minerals (Certavite-Antioxidant Liquid) 15 ml NGT DAILY [facility] Last Admin: 07/27/20 09:19 Dose: Not Given Documented by: Potassium Chloride (Potassium Chloride Oral Liquid) 40 meq PO DAILY [facility] Last Admin: 07/27/20 09:19 Dose: Not Given Documented by: Potassium Phos/Sodium Phos (Phos-Nak Packet -) 1 packet PO TID [facility]UL Last Admin: 07/27/20 05:38 Dose: 1 packet Documented by: Thiamine HCl (Vitamin B1 Injection -) 100 mg IVPB DAILY [facility] Last Admin: 07/27/20 10:20 Dose: 100 mg Documented by: Gen: Awake, Trached, cachectic Heart: RRR Lung: Trached, vented, scattered rhonchi Abd: soft, nontender, (+) BS Ext: no edema ASSESSMENT AND PLAN: Acute Hypoxic Respiratory Failure S/P Trach Septic Shock Pneumonia likely Aspiration UTI Sepsis Hyponatremia Small Bowel Obstruction Alcohol/Heroin Abuse Anemia/Thrombocytopenia Failure to Thrive Severe Protein Calorie Malnutrition Refeeding Syndrome - For GT today by IR - Pressors to maintain MAP > 65 - monitor urine output, creatinine - replete lytes - continue antibiotics - titrate FiO2 to keep SpO2 >95% - spontaneous breathing trials as tolerated - Enteral feeds - DVT/GI prophylaxis - Continue ICU monitoring for pressors Dr Babb Critical care time spent in reviewing chart, evaluating patient and formulating plan 35 min
[2020-07-27] MEDS ORDERED: POTASSIUM PHOSPHATE 10 MM in DEXTROSE 5%-WATER - 250 ML IVPB ONE (13:00)
[2020-07-27] MEDS ORDERED: ZINC SULFATE 220 MG CAPSULE (FP) PO ONE (13:00)
[2020-07-27] MEDS ORDERED: LIDOCAINE HCL 1%, 10 MG/ML (20ML VIAL) ONE (13:06)
--- NOTE | 2020-07-27 13:45 | PN ---
Progress Note, Physician History of Present Illness: Pt seen and examined at bedside. She is awake. She is npo for peg tube. - Current Medication List Current Medications: Active Medications Amino Acids (Prosource No Carb Liquid Pkt) 30 ml PO BID@0800,1730 [facility] Last Admin: 07/27/20 07:26 Dose: Not Given Documented by: Ascorbic Acid (Vitamin C -) 500 mg PO DAILY [facility] Banana Based Medical Food (Banatrol Plus Powder Packet) 1 packet GT TID [facility] Last Admin: 07/27/20 05:38 Dose: 1 packet Documented by: Dextrose (D50w (Vial) -) 12.5 gm IVPUSH PRN PRN PRN Reason: HYPOGLYCEMIA Last Admin: 07/27/20 06:22 Dose: 12.5 gm Documented by: Folic Acid (Folic Acid -) 1 mg NGT DAILY [facility] Last Admin: 07/27/20 09:19 Dose: Not Given Documented by: Heparin Sodium (Porcine) (Heparin -) 5,000 unit SQ BID [facility] Last Admin: 07/26/20 09:27 Dose: 5,000 unit Documented by: Hydromorphone HCl (Dilaudid Vial -) 1 mg IVPUSH Q3H PRN PRN Reason: PAIN LEVEL 7 - 10 Last Admin: 07/27/20 13:11 Dose: 1 mg Documented by: Dexmedetomidine/Sodium Chloride (Precedex 400 Mcg/100 Ml Inject) 400 mcg in 100 mls @ 1.542 mls/hr IVPB TITR [facility] Last Admin: 07/27/20 11:30 Dose: Not Given Documented by: Vasopressin 40 units/ Sodium (Chloride) 100 mls @ 5 mls/hr IVPB ASDIR [facility]; Protocol Last Titration: 07/27/20 12:23 Dose: 3 units/hr, 7.5 mls/hr Documented by: Dextrose/Lactated Ringer's (D5-Lr -) 1,000 mls @ 42 mls/hr IV ASDIR [facility] Last Admin: 07/26/20 18:12 Dose: 42 mls/hr Documented by: Tigecycline 50 mg/ Dextrose 100 mls @ 100 mls/hr IVPB BID [facility]; Protocol Potassium Phosphate 10 mm/ (Dextrose) 253.3333 mls @ 63.333 mls/hr IVPB ONCE ONE Stop: 07/27/20 16:59 Lidocaine HCl (Xylocaine 5% Top. Ointment) 1 applic TP DAILY [facility] Last Admin: 07/27/20 09:45 Dose: 1 applic Documented by: Multi-Ingredient Ointment (Zinc Oxide) 1 applic TP DAILY [facility] Last Admin: 07/27/20 09:45 Dose: 1 applic Documented by: Multivitamins/Minerals (Certavite-Antioxidant Liquid) 15 ml NGT DAILY [facility] Last Admin: 07/27/20 09:19 Dose: Not Given Documented by: Potassium Chloride (Potassium Chloride Oral Liquid) 40 meq PO DAILY [facility] Last Admin: 07/27/20 09:19 Dose: Not Given Documented by: Potassium Phos/Sodium Phos (Phos-Nak Packet -) 1 packet PO TID [facility] Last Admin: 07/27/20 05:38 Dose: 1 packet Documented by: Thiamine HCl (Vitamin B1 Injection -) 100 mg IVPB DAILY [facility] Last Admin: 07/27/20 10:20 Dose: 100 mg Documented by: - Objective Vital Signs: Vital Signs Temperature 97.8 F 07/27/20 10:00 Pulse Rate 98 H 07/27/20 12:23 Respiratory Rate 24 H 07/27/20 11:42 Blood Pressure 100/78 07/27/20 12:23 O2 Sat by Pulse Oximetry (%) 100 07/27/20 11:42 Constitutional: Yes: Calm Eyes: Yes: Conjunctiva Clear Neck: Yes: Other (trache) Cardiovascular: Yes: S1, S2 Respiratory: Yes: Mechanically Ventilated Gastrointestinal: Yes: Soft Genitourinary: Yes: Uribe Present Musculoskeletal: Yes: Muscle Weakness Edema: No Neurological: Yes: Other (awake) Labs: CBC, BMP 07/27/20 04:05 07/27/20 04:05 INR, PTT INR 1.34 (0.83-1.09) H 07/27/20 11:00 Fibrinogen 344.0 mg/dL (238-498) 07/21/20 06:00 Problem List - Problems (1) Hypoglycemia Code(s): E16.2 - HYPOGLYCEMIA, UNSPECIFIED (2) Sepsis Code(s): A41.9 - SEPSIS, UNSPECIFIED ORGANISM Qualifiers: Sepsis type: sepsis due to unspecified organism Sepsis acute organ dysfunction status: unspecified Qualified Code(s): A41.9 - Sepsis, unspecified organism (3) Hypoalbuminemia Code(s): E88.09 - OTH DISORDERS OF PLASMA-PROTEIN METABOLISM, NEC (4) Hyponatremia Code(s): E87.1 - HYPO-OSMOLALITY AND HYPONATREMIA Assessment/Plan Current Medications Generic Name Dose Route Start Last Admin Trade Name Freq PRN Reason Stop Dose Admin Amino Acids 30 ml 07/26/20 14:15 07/27/20 07:26 Prosource No Carb Liquid Pkt PO Not Given BID@0800,1730 RAUL Ascorbic Acid 500 mg 07/27/20 13:00 Vitamin C - PO DAILY [facility]UL Banana Based Medical Food 1 packet 07/10/20 22:00 07/27/20 05:38 Banatrol Plus Powder Packet GT 1 packet TID RAUL Administration Dextrose 12.5 gm 07/08/20 07:08 07/27/20 06:22 D50w (Vial) - IVPUSH 12.5 gm PRN PRN Administration HYPOGLYCEMIA Folic Acid 1 mg 07/06/20 10:00 07/27/20 09:19 Folic Acid - NGT Not Given DAILY RAUL Heparin Sodium (Porcine) 5,000 unit 07/20/20 10:00 07/26/20 09:27 Heparin - SQ 5,000 unit BID RAUL Administration Hydromorphone HCl 1 mg 07/26/20 13:39 07/27/20 13:11 Dilaudid Vial - IVPUSH 1 mg Q3H PRN Administration PAIN LEVEL 7 - 10 Dexmedetomidine/Sodium Chloride 400 mcg in 100 mls @ 1.542 mls/hr 07/25/20 11:15 07/27/20 11:30 Precedex 400 Mcg/100 Ml Inject IVPB Not Given TITR RAUL 0.2 MCG/KG/HR Vasopressin 40 units/ Sodium 100 mls @ 5 mls/hr 07/25/20 16:30 07/27/20 12:23 Chloride IVPB 3 units/hr ASDIR RAUL 7.5 mls/hr Titration Protocol 2 UNITS/HR Dextrose/Lactated Ringer's 1,000 mls @ 42 mls/hr 07/26/20 18:15 07/26/20 18:12 D5-Lr - IV 42 mls/hr ASDIR RAUL Administration Tigecycline 50 mg/ Dextrose 100 mls @ 100 mls/hr 07/28/20 10:00 IVPB BID RAUL Protocol Potassium Phosphate 10 mm/ 253.3333 mls @ 63.333 mls/hr 07/27/20 13:00 Dextrose IVPB 07/27/20 16:59 ONCE ONE Lidocaine HCl 1 applic 07/25/20 21:50 07/27/20 09:45 Xylocaine 5% Top. Ointment TP 1 applic DAILY [facility]UL Administration Multi-Ingredient Ointment 1 applic 07/19/20 13:30 07/27/20 09:45 Zinc Oxide TP 1 applic DAILY [facility] Administration Multivitamins/Minerals 15 ml 07/06/20 11:45 07/27/20 09:19 Certavite-Antioxidant Liquid NGT Not Given DAILY [facility]UL Potassium Chloride 40 meq 07/17/20 12:30 07/27/20 09:19 Potassium Chloride Oral Liquid PO Not Given DAILY [facility]UL Potassium Phos/Sodium Phos 1 packet 07/09/20 14:00 07/27/20 05:38 Phos-Nak Packet - PO 1 packet TID [facility]UL Administration Thiamine HCl 100 mg 07/11/20 12:45 07/27/20 10:20 Vitamin B1 Injection - IVPB 100 mg DAILY RAUL Administration Impression 1. azotemia 2. hyponatremia 3. hyperkalemia 4. hypotension 5. sepsis 6. sbo 7. uti 8. liver cirrhosis 9. hypoalbuminemia 10. etoh abuse 11. substance abuse 12. psoriasis 13. acute resp failure 14. malnutrition Plan - resume feeds once cleared by GI - monitor bennett - discussed with dietary - vent support - will follow prn
[2020-07-27] MEDS: ASCORBIC ACID 500 MG TABLET (FP) PO SCH (13:52)
--- NOTE | 2020-07-27 15:49 | PN ---
Progress Note, Physician History of Present Illness: FOR TRACH - Current Medication List Current Medications: Active Medications Amino Acids (Prosource No Carb Liquid Pkt) 30 ml PO BID@0800,1730 [facility] Last Admin: 07/27/20 07:26 Dose: Not Given Documented by: Ascorbic Acid (Vitamin C -) 500 mg PO DAILY [facility] Last Admin: 07/27/20 13:52 Dose: Not Given Documented by: Banana Based Medical Food (Banatrol Plus Powder Packet) 1 packet GT TID [facility] Last Admin: 07/27/20 13:58 Dose: Not Given Documented by: Dextrose (D50w (Vial) -) 12.5 gm IVPUSH PRN PRN PRN Reason: HYPOGLYCEMIA Last Admin: 07/27/20 06:22 Dose: 12.5 gm Documented by: Folic Acid (Folic Acid -) 1 mg NGT DAILY [facility] Last Admin: 07/27/20 09:19 Dose: Not Given Documented by: Heparin Sodium (Porcine) (Heparin -) 5,000 unit SQ BID [facility] Last Admin: 07/26/20 09:27 Dose: 5,000 unit Documented by: Hydromorphone HCl (Dilaudid Vial -) 1 mg IVPUSH Q3H PRN PRN Reason: PAIN LEVEL 7 - 10 Last Admin: 07/27/20 13:11 Dose: 1 mg Documented by: Dexmedetomidine/Sodium Chloride (Precedex 400 Mcg/100 Ml Inject) 400 mcg in 100 mls @ 1.542 mls/hr IVPB TITR [facility] Last Admin: 07/27/20 11:30 Dose: Not Given Documented by: Vasopressin 40 units/ Sodium (Chloride) 100 mls @ 5 mls/hr IVPB ASDIR [facility]UL; Protocol Last Titration: 07/27/20 14:00 Dose: 2 units/hr, 5 mls/hr Documented by: Dextrose/Lactated Ringer's (D5-Lr -) 1,000 mls @ 42 mls/hr IV ASDIR RAUL Last Admin: 07/26/20 18:12 Dose: 42 mls/hr Documented by: Tigecycline 50 mg/ Dextrose 100 mls @ 100 mls/hr IVPB BID [facility]; Protocol Potassium Phosphate 10 mm/ (Dextrose) 253.3333 mls @ 63.333 mls/hr IVPB ONCE ONE Stop: 07/27/20 16:59 Last Admin: 07/27/20 13:52 Dose: 63.333 mls/hr Documented by: Lidocaine HCl (Xylocaine 5% Top. Ointment) 1 applic TP DAILY [facility] Last Admin: 07/27/20 09:45 Dose: 1 applic Documented by: Multi-Ingredient Ointment (Zinc Oxide) 1 applic TP DAILY [facility] Last Admin: 07/27/20 09:45 Dose: 1 applic Documented by: Multivitamins/Minerals (Certavite-Antioxidant Liquid) 15 ml NGT DAILY [facility] Last Admin: 07/27/20 09:19 Dose: Not Given Documented by: Potassium Chloride (Potassium Chloride Oral Liquid) 40 meq PO DAILY [facility] Last Admin: 07/27/20 09:19 Dose: Not Given Documented by: Potassium Phos/Sodium Phos (Phos-Nak Packet -) 1 packet PO TID [facility] Last Admin: 07/27/20 13:58 Dose: Not Given Documented by: Thiamine HCl (Vitamin B1 Injection -) 100 mg IVPB DAILY [facility] Last Admin: 07/27/20 10:20 Dose: 100 mg Documented by: - Objective Vital Signs: Vital Signs Temperature 97.6 F 07/27/20 14:15 Pulse Rate 115 H 07/27/20 15:09 Respiratory Rate 14 07/27/20 15:09 Blood Pressure 109/84 07/27/20 15:09 O2 Sat by Pulse Oximetry (%) 100 07/27/20 14:15 Constitutional: Yes: No Distress HENT: Yes: Atraumatic Neck: Yes: Other (trach) Cardiovascular: Yes: Regular Rate and Rhythm Respiratory: Yes: Rhonchi Gastrointestinal: Yes: Normal Bowel Sounds Extremities: Yes: WNL Neurological: Yes: Other (AWAKE) Labs: CBC, BMP 07/27/20 04:05 07/27/20 04:05 INR, PTT INR 1.34 (0.83-1.09) H 07/27/20 11:00 Fibrinogen 344.0 mg/dL (238-498) 07/21/20 06:00 Problem List - Problems (1) At risk for electrolyte imbalance Assessment/Plan: MONITOR AND REPLACE Code(s): Z91.89 - OTH PERSONAL RISK FACTORS, NOT ELSEWHERE CLASSIFIED (2) SBO (small bowel obstruction) Assessment/Plan: FOR PEG TODAY Code(s): K56.609 - UNSP INTESTNL OBST, UNSP TO PARTIAL VERSUS COMPLETE OBST (3) Sepsis Assessment/Plan: ON IV ABX CXS NOTED wbc wnl Code(s): A41.9 - SEPSIS, UNSPECIFIED ORGANISM Qualifiers: Sepsis type: sepsis due to unspecified organism Sepsis acute organ dysfunction status: unspecified Qualified Code(s): A41.9 - Sepsis, unspecified organism (4) Alcoholic liver damage Code(s): K70.9 - ALCOHOLIC LIVER DISEASE, UNSPECIFIED (5) Hypoalbuminemia Code(s): E88.09 - OTH DISORDERS OF PLASMA-PROTEIN METABOLISM, NEC (6) Hyponatremia Code(s): E87.1 - HYPO-OSMOLALITY AND HYPONATREMIA (7) Liver cirrhosis, alcoholic Code(s): K70.30 - ALCOHOLIC CIRRHOSIS OF LIVER WITHOUT ASCITES (8) Ischemic hepatitis Code(s): K75.9 - INFLAMMATORY LIVER DISEASE, UNSPECIFIED (9) Respiratory failure Assessment/Plan: S/P TRACH Code(s): J96.90 - RESPIRATORY FAILURE, UNSP, UNSP W HYPOXIA OR HYPERCAPNIA (10) UTI (urinary tract infection) Assessment/Plan: SEPSIS..RESOLVING ON IV ABX URINE STILL TURBID Code(s): N39.0 - URINARY TRACT INFECTION, SITE NOT SPECIFIED Qualifiers: Urinary tract infection type: site unspecified Hematuria presence: with hematuria Qualified Code(s): N39.0 - Urinary tract infection, site not specified; R31.9 - Hematuria, unspecified (11) Elevated LFTs Assessment/Plan: IMPROVING MONITOR Code(s): R79.89 - OTHER SPECIFIED ABNORMAL FINDINGS OF BLOOD CHEMISTRY (12) Hypothermia Assessment/Plan: stable PRN BEAR HUGGER Code(s): T68.XXXA - HYPOTHERMIA, INITIAL ENCOUNTER (13) Skin abrasion Assessment/Plan: AIR MATTRESS WILL BENEFIT Code(s): T14.8XXA - OTHER INJURY OF UNSPECIFIED BODY REGION, INITIAL ENCOUNTER
[2020-07-27] MEDS: VASOPRESSIN 40 UNITS in SODIUM CHLORIDE 98 ML IVPB SCH (17:22)
[2020-07-27 18:17] LABS: BF WBC & OTHER NUCLEATED CELLS 59 /mm3; BODY FLUID MACROPHAGES 24 %; BODY FLUID MONOCYTE 13 %
[2020-07-27] MEDS: DEXTROSE 5%-LACTATED RINGERS 1,000 ML IV SCH (18:27)
[2020-07-27] MEDS ORDERED: PT OWN MED DRAWER 7, Y5N ONE (19:45)
[2020-07-27] MEDS ORDERED: INSULIN (NOVOLOG) ASPART 100 UNITS/ML 10ML VIAL ONE (19:45)
[2020-07-27] MEDS: HEPARIN NA (PORCINE) 5,000 UNITS/ML 1ML VIAL SQ SCH (21:19)
[2020-07-27] MEDS ORDERED: ACETAMINOPHEN 1000 MG/100 ML VIAL (NON FORMULARY) IVPB PRN (21:30)
[2020-07-28] MEDS: HYDROmorphone HCl 2 MG/ML VIAL IVPUSH PRN ×5 (00:15→18:15)
[2020-07-28] MEDS: BANATROL PLUS POWDER PACKET GT SCH ×3 (06:26→21:28)
[2020-07-28] MEDS: NAPH,MB-DB/K PH,MBDB POWDER PACKET PO SCH ×3 (06:26→21:29)
[2020-07-28 07:02] LABS: ANION GAP 6 MMOL/L (8-16); BLOOD UREA NITROGEN 20.5 mg/dL (7-18); CHLORIDE 101 mmol/L (98-107); CO2 23 mmol/L (21-32); GLUCOSE,RANDOM 178 mg/dL (74-106); MAGNESIUM 1.8 mg/dL (1.8-2.4); POTASSIUM 3.9 mmol/L (3.5-5.1); SODIUM 131 mmol/L (136-145)
[2020-07-28 07:12] LABS: CALCIUM 6.4 mg/dL (8.5-10.1)
[2020-07-28 07:28] LABS: CREATININE < 0.2 mg/dL (0.55-1.3)
[2020-07-28] MEDS ORDERED: MAGNESIUM SULF 50% (8.12 MEQ/2 ML-1 GM VIAL) IVPB ONE (08:06)
[2020-07-28] MEDS ORDERED: POTASSIUM PHOSPHATE 10 MM in DEXTROSE 5%-WATER - 250 ML IVPB ONE (08:06)
[2020-07-28 08:10] LABS: ALBUMIN 1.1 g/dl (3.4-5.0)
[2020-07-28] MEDS ORDERED: MAGNESIUM 1GM/D5W - 1 GM/100 ML IVPB IVPB ONE (08:15)
[2020-07-28 08:46] LABS: HEMATOCRIT 22.3 % (32.4-45.2); HEMOGLOBIN 7.7 GM/dL (10.7-15.3); MCH 30.6 pg (25.7-33.7); MCHC 34.5 g/dl (32.0-36.0); MEAN CELL VOLUME 88.6 fl (80-96); MEAN PLT VOLUME 8.8 fl (7.5-11.1); PLATELET COUNT 323 K/MM3 (134-434); RBC 2.51 M/mm3 (3.60-5.2); RDW 19.3 % (11.6-15.6); WHITE BLOOD COUNT 9.5 K/mm3 (4.0-10.0)
[2020-07-28] MEDS ORDERED: PT OWN MED DRAWER 7, Y5N ONE (09:09)
--- NOTE | 2020-07-28 09:10 | PN ---
Physical Exam: SUBJECTIVE: Patient seen and examined at bedside. Pt unable to get PEG yesterday due to presence of ascites. Instead pigtail catheter was placed in peritoneum for drainage, total 1400cc output so far. Pt still complains of pain. Per nurse, no other acute events overnight. Pt remains on vasopressin 4 Vent settings: 14/350/7/80% OBJECTIVE: Vital Signs Period Temp Pulse Resp BP Sys/Campbell Pulse Ox Last 24 Hr 97.2 F-97.9 F 46-115 14-26 75-110/50-84 99-100 GENERAL: Awake and alert. NAD. Cachectic. Able to converse via mouthing words/writing. HEENT: Normal with no signs of trauma. EOMI. +temporal wasting. Ears normal. Oral secretions present. NECK: Trachea midline, full range of motion, supple. LUNGS: Remains trach to vent. Breath sounds diminished on right basilar, crackles on right base, no wheezes, no accessory muscle use. HEART: RRR, S1, S2 without murmur, rub or gallop. ABDOMEN: Thin, soft, NT/ND. Pigtail catheter in place draining clear yellow ascitic fluid, dressing c/d/i. GI: Rectal tube in place. : Uribe in place draining clear yellow urine EXTREMITIES: 2+ pulses, warm, well-perfused, no edema. NEUROLOGICAL: Cranial nerves II through XII grossly intact, gait not observed. PSYCH: Normal mood, normal affect. SKIN: Warm, dry, normal turgor, sacral ulcer (unstageable), peritoneal ulcer CBCD WBC 9.5 K/mm3 (4.0-10.0) 07/28/20 06:10 RBC 2.51 M/mm3 (3.60-5.2) L 07/28/20 06:10 Hgb 7.7 GM/dL (10.7-15.3) L 07/28/20 06:10 Hct 22.3 % (32.4-45.2) L 07/28/20 06:10 MCV 88.6 fl (80-96) 07/28/20 06:10 MCHC 34.5 g/dl (32.0-36.0) 07/28/20 06:10 RDW 19.3 % (11.6-15.6) H 07/28/20 06:10 Plt Count 323 K/MM3 (134-434) D 07/28/20 06:10 MPV 8.8 fl (7.5-11.1) 07/28/20 06:10 CMP Sodium 131 mmol/L (136-145) L 07/28/20 06:10 Potassium 3.9 mmol/L (3.5-5.1) 07/28/20 06:10 Chloride 101 mmol/L (98-107) 07/28/20 06:10 Carbon Dioxide 23 mmol/L (21-32) 07/28/20 06:10 Anion Gap 6 MMOL/L (8-16) L 07/28/20 06:10 BUN 20.5 mg/dL (7-18) H 07/28/20 06:10 Creatinine < 0.2 mg/dL (0.55-1.3) L 07/28/20 06:10 Calcium 6.4 mg/dL (8.5-10.1) L* 07/28/20 06:10 Total Bilirubin 0.4 mg/dL (0.2-1) 07/26/20 05:15 AST 19 U/L (15-37) 07/26/20 05:15 ALT 25 U/L (13-61) 07/26/20 05:15 Alkaline Phosphatase 209 U/L (45-117) H 07/26/20 05:15 Total Protein 3.5 g/dl (6.4-8.2) L 07/26/20 05:15 Albumin 1.1 g/dl (3.4-5.0) L 07/28/20 06:10 Active Medications Generic Name Dose Route Start Last Admin Trade Name Ruben PRN Reason Stop Dose Admin Acetaminophen 500 mg 07/27/20 21:30 07/27/20 21:56 Ofirmev Injection - IVPB 500 mg Q6H PRN Administration PAIN LEVEL 1-5 Ascorbic Acid 500 mg 07/27/20 13:00 07/27/20 13:52 Vitamin C - PO Not Given DAILY RAUL Banana Based Medical Food 1 packet 07/10/20 22:00 07/28/20 06:26 Banatrol Plus Powder Packet GT 1 packet TID RAUL Administration Dextrose 12.5 gm 07/08/20 07:08 07/27/20 22:02 D50w (Vial) - IVPUSH 12.5 gm PRN PRN Administration HYPOGLYCEMIA Folic Acid 1 mg 07/06/20 10:00 07/27/20 09:19 Folic Acid - NGT Not Given DAILY [facility] Heparin Sodium (Porcine) 5,000 unit 07/20/20 10:00 07/27/20 21:19 Heparin - SQ 5,000 unit BID RAUL Administration Hydromorphone HCl 1 mg 07/26/20 13:39 07/28/20 06:26 Dilaudid Vial - IVPUSH 1 mg Q3H PRN Administration PAIN LEVEL 7 - 10 Dexmedetomidine/Sodium Chloride 400 mcg in 100 mls @ 1.542 mls/hr 07/25/20 11:15 07/27/20 11:30 Precedex 400 Mcg/100 Ml Inject IVPB Not Given TITR RAUL 0.2 MCG/KG/HR Vasopressin 40 units/ Sodium 100 mls @ 5 mls/hr 07/25/20 16:30 07/28/20 07:16 Chloride IVPB 4 units/hr ASDIR RAUL 10 mls/hr Titration Protocol 2 UNITS/HR Tigecycline 50 mg/ Dextrose 100 mls @ 100 mls/hr 07/28/20 10:00 IVPB BID RAUL Protocol Dextrose/Lactated Ringer's 1,000 mls @ 42 mls/hr 07/27/20 18:15 07/27/20 18:27 D5-Lr - IV 42 mls/hr ASDIR RAUL Administration Sodium Phosphate 40 mm/ Sodium 513.3333 mls @ 64.167 mls/hr 07/28/20 09:00 Chloride IVPB 07/28/20 16:59 ONCE ONE Magnesium Sulfate/Dextrose 1 gm in 100 mls @ 100 mls/hr 07/28/20 08:15 Magnesium 1gm/D5w - IVPB 07/28/20 09:14 ONCE ONE Lidocaine HCl 1 applic 07/25/20 21:50 07/27/20 09:45 Xylocaine 5% Top. Ointment TP 1 applic DAILY RAUL Administration Multi-Ingredient Ointment 1 applic 07/19/20 13:30 07/27/20 09:45 Zinc Oxide TP 1 applic DAILY RAUL Administration Multivitamins/Minerals 15 ml 07/06/20 11:45 07/27/20 09:19 Certavite-Antioxidant Liquid NGT Not Given DAILY RAUL Potassium Chloride 40 meq 07/17/20 12:30 07/27/20 09:19 Potassium Chloride Oral Liquid PO Not Given DAILY RAUL Potassium Phos/Sodium Phos 1 packet 07/09/20 14:00 07/28/20 06:26 Phos-Nak Packet - PO 1 packet TID RAUL Administration Thiamine HCl 100 mg 07/11/20 12:45 07/27/20 10:20 Vitamin B1 Injection - IVPB 100 mg DAILY RAUL Administration ASSESSMENT/PLAN: 35 yo female with PMH of malnutrition (? anorexia vs. bulimia), cirrhosis (2/2 alcohol abuse), heroin abuse in ICU with sepsis and acute hypoxic respiratory failure, now s/p trach. Neuro -Alert, responsive, able to communicate with blinking and writing -Pain management has improved -Dilaudid 1g, q3, Fentanyl 100 mcg IVP -Dexmedetomidine (400 mcg) CV #Septic Shock -Baseline BP with systolic ~80s; close hemodynamic monitoring while pt is on Dilaudid -Currently on Vasopressin 4, titrate accordingly; maintain MAP >65 -IVf, IV abx Respiratory #Acute Hypoxic Respiratory Failure, s/p Tracheostomy #Likely Aspiration Pneumonia -s/p trach on 07/25; maintain SpO2 >90% -Remains hypoxic requiring vent -Vent Setting: RR 14, TV 350, O2 40%, PEEP 5 -Aspiration precautions GI #SBO #Severe Protein Calorie Malnutrition #Refeeding Syndrome #Ascites s/p Peritoneal drain placement #Cirrhosis; ? etiology -Seen by surgery; not a candidate for surgical intervention -Perative Tube feeds @ 55, titrate up to 55 -Peritoneal drain placed on 07/27; ascites fluid studies pending -Folic acid 1 mg, Thiamine, Vitamin C -PEG Tube scheduled for 07/30: Will need keep pt NPO after midnight on Thursday night, check coags and give Vit K/FFP as needed for goal INR <1.5, hold heparin. PO contrast prep to be administered prior to procedure. Turn off TF on night prior to procedure and cont D5-LR to prevent hypoglycemia. Renal #Hyponatremia #Hypokalemia #Hypomagnesemia #Hypophosphatemia #Hypoalbuminemia; 2/2 severe malnutrition -K, Mg, Phos all repleted -Cont to trend daily; replete PRN -Renal following ID #Septic Shock; multifactorial 2/2 UTI, likely Aspiration pneumonia #Likely Aspiration Pneumonia -UCx +ESBL Klebsiella pneumo, carbapenem-resistent -S/p Vanc/Zosyn/Meropenem; currently on Tigecycline 50 mg IV BID (Day 2) -ID following Heme #Elevated INR #Anemia/Thrombocytopenia -s/p 2U FFP, Vit K x2 -check coags daily Psych #Hx of Alcohol/Heroin Abuse -Drug cessation counseling Derm #Multiple Sacral Ulcers -Daily wound care, air mattress -Off-loading to all bony areas (heels, ankles, hips and tailbone) with Al levyn/Optifoam Prophylaxis DVT: SQH - hold after 07/29 after midnight, for PEG tube placement on 07/30 FEN -D5-LR -recheck lytes in AM (K, Mg, Phos repleted) -TF Perative LTD Central Line (R IJ) - 07/24 Trach - 07/25 Pigtail catheter (R abd) - 07/27 Rectal tube Uribe Dispo -Cont to monitor in ICU Visit type - Emergency Visit Emergency Visit: Yes ED Registration Date: 07/01/20 Care time: The patient presented to the Emergency Department on the above date and was hospitalized for further evaluation of their emergent condition. - New Patient This patient is new to me today: No - Critical Care Critical Care patient: Yes Total Critical Care Time (in minutes): 40 Critical Care Statement: The care of this patient involved high complexity decision making to prevent further life threatening deterioration of the patient's condition and/or to evaluate & treat vital organ system(s) failure or risk of failure. ATTENDING PHYSICIAN STATEMENT I saw and evaluated the patient. I reviewed the resident's note and discussed the case with the resident. I agree with the resident's findings and plan as documented. SUBJECTIVE: OBJECTIVE: ASSESSMENT AND PLAN:
[2020-07-28] MEDS: SODIUM PHOSPHATE - 40 MM in SODIUM CHLORIDE 500 ML IVPB ONE ×2 (09:55→10:48)
--- NOTE | 2020-07-28 10:20 | PN ---
Teaching Attending Note Name of Resident: Breanna Orozco ATTENDING PHYSICIAN STATEMENT I saw and evaluated the patient. I reviewed the resident's note and discussed the case with the resident. I agree with the resident's findings and plan as documented. SUBJECTIVE: Pt seen and examined in the ICU. Vented, awake. c/o pain all over. Peritoneal drain drained 1400mL so far. Remains on vasopressin gtt. OBJECTIVE: Vital Signs Period Temp Pulse Resp BP Sys/Campbell Pulse Ox Last 24 Hr 97.2 F-97.9 F 46-115 14-26 75-110/50-84 99-100 Intake & Output 07/25/20 07/26/20 07/27/20 07/28/20 23:59 23:59 23:59 23:59 Intake Total 2993 2176.6 2985 729 Output Total 1413 563 8601 815 Balance 1893 1701.6 245 -86 Weight 30.844 kg 31.116 kg 38.7 kg Gen: intubated, sedated, cachectic Heart: RRR Lung: scattered rhonchi Abd: soft, nontender, +ascites Ext: no edema CBC, BMP 07/28/20 06:10 07/28/20 06:10 Active Medications Acetaminophen (Ofirmev Injection -) 500 mg IVPB Q6H PRN PRN Reason: PAIN LEVEL 1-5 Last Admin: 07/27/20 21:56 Dose: 500 mg Documented by: Ascorbic Acid (Vitamin C -) 500 mg PO DAILY [facility] Last Admin: 07/27/20 13:52 Dose: Not Given Documented by: Banana Based Medical Food (Banatrol Plus Powder Packet) 1 packet GT TID [facility] Last Admin: 07/28/20 06:26 Dose: 1 packet Documented by: Dextrose (D50w (Vial) -) 12.5 gm IVPUSH PRN PRN PRN Reason: HYPOGLYCEMIA Last Admin: 07/27/20 22:02 Dose: 12.5 gm Documented by: Folic Acid (Folic Acid -) 1 mg NGT DAILY [facility] Last Admin: 07/27/20 09:19 Dose: Not Given Documented by: Heparin Sodium (Porcine) (Heparin -) 5,000 unit SQ BID [facility] Last Admin: 07/27/20 21:19 Dose: 5,000 unit Documented by: Hydromorphone HCl (Dilaudid Vial -) 1 mg IVPUSH Q3H PRN PRN Reason: PAIN LEVEL 7 - 10 Last Admin: 07/28/20 06:26 Dose: 1 mg Documented by: Dexmedetomidine/Sodium Chloride (Precedex 400 Mcg/100 Ml Inject) 400 mcg in 100 mls @ 1.542 mls/hr IVPB TITR RAUL Last Admin: 07/27/20 11:30 Dose: Not Given Documented by: Vasopressin 40 units/ Sodium (Chloride) 100 mls @ 5 mls/hr IVPB ASDIR RAUL; Protocol Last Titration: 07/28/20 07:16 Dose: 4 units/hr, 10 mls/hr Documented by: Tigecycline 50 mg/ Dextrose 100 mls @ 100 mls/hr IVPB BID [facility]; Protocol Dextrose/Lactated Ringer's (D5-Lr -) 1,000 mls @ 42 mls/hr IV ASDIR RAUL Last Admin: 07/27/20 18:27 Dose: 42 mls/hr Documented by: Sodium Phosphate 40 mm/ Sodium (Chloride) 513.3333 mls @ 64.167 mls/hr IVPB ONCE ONE Stop: 07/28/20 16:59 Last Admin: 07/28/20 09:55 Dose: 62.5 mls/hr Documented by: Lidocaine HCl (Xylocaine 5% Top. Ointment) 1 applic TP DAILY [facility] Last Admin: 07/27/20 09:45 Dose: 1 applic Documented by: Multi-Ingredient Ointment (Zinc Oxide) 1 applic TP DAILY [facility] Last Admin: 07/27/20 09:45 Dose: 1 applic Documented by: Multivitamins/Minerals (Certavite-Antioxidant Liquid) 15 ml NGT DAILY [facility] Last Admin: 07/27/20 09:19 Dose: Not Given Documented by: Potassium Chloride (Potassium Chloride Oral Liquid) 40 meq PO DAILY [facility] Last Admin: 07/27/20 09:19 Dose: Not Given Documented by: Potassium Phos/Sodium Phos (Phos-Nak Packet -) 1 packet PO TID [facility] Last Admin: 07/28/20 06:26 Dose: 1 packet Documented by: Thiamine HCl (Vitamin B1 Injection -) 100 mg IVPB DAILY [facility] Last Admin: 07/27/20 10:20 Dose: 100 mg Documented by: ASSESSMENT AND PLAN: Acute Hypoxic Respiratory Failure s/p Tracheostomy Pneumonia likely Aspiration UTI Sepsis Hyponatremia Small Bowel Obstruction Ascites s/p Peritoneal drain placement Alcohol/Heroin Abuse Anemia/Thrombocytopenia Failure to Thrive Severe Protein Calorie Malnutrition Refeeding Syndrome - monitor urine output, creatinine - replete lytes - continue antibiotics - titrate pressors to maintain MAP >65 - titrate FiO2 to keep SpO2 >90% - spontaneous breathing trials as tolerated - enteral feeds, will need PEG placement - DVT/GI prophylaxis - continue ICU monitoring critical care time spent in reviewing chart, evaluating patient and formulating plan 35 min
[2020-07-28] MEDS ORDERED: VASOPRESSIN 20 UNITS/ML VIAL IV ONE (10:34)
[2020-07-28] MEDS: ASCORBIC ACID 500 MG TABLET (FP) PO SCH (10:49)
[2020-07-28] MEDS: FOLIC ACID 1 MG TABLET (FP) NGT SCH (10:49)
[2020-07-28] MEDS: MULTIVIT-MINERALS ORAL LIQUID NGT SCH (10:49)
[2020-07-28] MEDS: POTASSIUM CHLORIDE ORAL LIQUID 20 MEQ/15 ML PO SCH (10:50)
[2020-07-28] MEDS: HEPARIN NA (PORCINE) 5,000 UNITS/ML 1ML VIAL SQ SCH ×2 (11:07→21:29)
[2020-07-28] MEDS: DEXMEDETOMIDINE IN 0.9 % NACL 400 MCG/100 ML VIAL IVPB SCH (11:15)
[2020-07-28] MEDS: TIGECYCLINE 50 MG in DEXTROSE 5%-WATER - 100 ML IVPB SCH ×2 (11:44→21:29)
[2020-07-28] MEDS ORDERED: ALBUMIN HUMAN 25% 12.5 GM/50 ML VIAL IVPB SCH (12:00)
[2020-07-28] MEDS ORDERED: ALBUMIN HUMAN 25% 100 ML VIAL IVPB SCH (12:01)
[2020-07-28] MEDS ORDERED: ALBUMIN HUMAN 25% 100 ML VIAL IVPB ONE (12:11)
[2020-07-28] MEDS ORDERED: FUROSEMIDE 40 MG/4 ML INJECTABLE VIAL IVPUSH ONE (12:15)
[2020-07-28] MEDS: THIAMINE HCL 200 MG/2 ML VIAL IVPB SCH (13:15)
[2020-07-28] MEDS: LIDOCAINE HCL 5% TOP OINTMENT 50 GM TUBE TP SCH (13:55)
[2020-07-28] MEDS ORDERED: HYDROmorphone HCl 2 MG/ML VIAL IVPUSH ONE ×2 (14:05→18:49)
[2020-07-28] MEDS: ZINC OXIDE 20% TOPICAL OINTMENT 30 GM TUBE TP SCH (14:30)
[2020-07-28] MEDS: VASOPRESSIN 40 UNITS in SODIUM CHLORIDE 98 ML IVPB SCH (17:00)
--- NOTE | 2020-07-28 17:50 | PN ---
Progress Note, Physician History of Present Illness: Pt seen in ICU. Alert and responsive, afebrile. s/p trach, remains on pressors. s/p peritoneal drain. - Current Medication List Current Medications: Active Medications Acetaminophen (Ofirmev Injection -) 500 mg IVPB Q6H PRN PRN Reason: PAIN LEVEL 1-5 Last Admin: 07/27/20 21:56 Dose: 500 mg Documented by: Ascorbic Acid (Vitamin C -) 500 mg PO DAILY [facility] Last Admin: 07/28/20 10:49 Dose: 500 mg Documented by: Banana Based Medical Food (Banatrol Plus Powder Packet) 1 packet GT TID [facility]UL Last Admin: 07/28/20 14:53 Dose: Not Given Documented by: Dextrose (D50w (Vial) -) 12.5 gm IVPUSH PRN PRN PRN Reason: HYPOGLYCEMIA Last Admin: 07/27/20 22:02 Dose: 12.5 gm Documented by: Folic Acid (Folic Acid -) 1 mg NGT DAILY [facility] Last Admin: 07/28/20 10:49 Dose: 1 mg Documented by: Heparin Sodium (Porcine) (Heparin -) 5,000 unit SQ BID RAUL Last Admin: 07/28/20 11:07 Dose: 5,000 unit Documented by: Hydromorphone HCl (Dilaudid Vial -) 1 mg IVPUSH Q3H PRN PRN Reason: PAIN LEVEL 7 - 10 Last Admin: 07/28/20 13:39 Dose: 1 mg Documented by: Dexmedetomidine/Sodium Chloride (Precedex 400 Mcg/100 Ml Inject) 400 mcg in 100 mls @ 1.542 mls/hr IVPB TITR [facility]UL Last Admin: 07/28/20 11:15 Dose: 0.7 mcg/kg/hr, 5.398 mls/hr Documented by: Vasopressin 40 units/ Sodium (Chloride) 100 mls @ 5 mls/hr IVPB ASDIR [facility]; Protocol Last Titration: 07/28/20 07:16 Dose: 4 units/hr, 10 mls/hr Documented by: Tigecycline 50 mg/ Dextrose 100 mls @ 100 mls/hr IVPB BID RAUL; Protocol Last Admin: 07/28/20 11:44 Dose: 100 mls/hr Documented by: Dextrose/Lactated Ringer's (D5-Lr -) 1,000 mls @ 42 mls/hr IV ASDIR [facility]UL Last Admin: 07/27/20 18:27 Dose: 42 mls/hr Documented by: Lidocaine HCl (Xylocaine 5% Top. Ointment) 1 applic TP DAILY [facility] Last Admin: 07/28/20 13:55 Dose: 1 applic Documented by: Multi-Ingredient Ointment (Zinc Oxide) 1 applic TP DAILY [facility] Last Admin: 07/28/20 14:30 Dose: 1 applic Documented by: Multivitamins/Minerals (Certavite-Antioxidant Liquid) 15 ml NGT DAILY [facility] Last Admin: 07/28/20 10:49 Dose: 15 ml Documented by: Potassium Chloride (Potassium Chloride Oral Liquid) 40 meq PO DAILY [facility] Last Admin: 07/28/20 10:50 Dose: 40 meq Documented by: Potassium Phos/Sodium Phos (Phos-Nak Packet -) 1 packet PO TID [facility] Last Admin: 07/28/20 13:27 Dose: 1 packet Documented by: Thiamine HCl (Vitamin B1 Injection -) 100 mg IVPB DAILY [facility] Last Admin: 07/28/20 13:15 Dose: 100 mg Documented by: - Objective Vital Signs: Vital Signs Temperature 98.3 F 07/28/20 13:00 Pulse Rate 123 H 07/28/20 14:01 Respiratory Rate 24 H 07/28/20 15:45 Blood Pressure 102/71 07/28/20 14:01 O2 Sat by Pulse Oximetry (%) 100 07/28/20 15:45 Constitutional: Yes: No Distress, Calm Eyes: Yes: Conjunctiva Clear Neck: Yes: Other (+trach) Cardiovascular: Yes: Tachycardia Respiratory: Yes: Regular, Mechanically Ventilated Gastrointestinal: Yes: Other (+peritoneal drain) Genitourinary: Yes: WNL Wound/Incision: Yes: Dressing Dry and Intact Neurological: Yes: Alert Labs: CBC, BMP 07/28/20 06:10 07/28/20 06:10 INR, PTT INR 1.34 (0.83-1.09) H 07/27/20 11:00 Fibrinogen 344.0 mg/dL (238-498) 07/21/20 06:00 Laboratory Last Values WBC 9.5 K/mm3 (4.0-10.0) 07/28/20 06:10 RBC 2.51 M/mm3 (3.60-5.2) L 07/28/20 06:10 Hgb 7.7 GM/dL (10.7-15.3) L 07/28/20 06:10 Hct 22.3 % (32.4-45.2) L 07/28/20 06:10 MCV 88.6 fl (80-96) 07/28/20 06:10 MCH 30.6 pg (25.7-33.7) 07/28/20 06:10 MCHC 34.5 g/dl (32.0-36.0) 07/28/20 06:10 RDW 19.3 % (11.6-15.6) H 07/28/20 06:10 Plt Count 323 K/MM3 (134-434) D 07/28/20 06:10 MPV 8.8 fl (7.5-11.1) 07/28/20 06:10 Absolute Neuts (auto) 6.8 K/mm3 (1.5-8.0) 07/27/20 04:05 Total Counted 100 07/04/20 10:45 Neutrophils % 90.1 % (42.8-82.8) H 07/27/20 04:05 Neutrophils % (Manual) 82.7 % (42.8-82.8) 07/18/20 06:00 Band Neutrophils % 2.7 % 07/18/20 06:00 Lymphocytes % 5.2 % (8-40) L D 07/27/20 04:05 Lymphocytes % (Manual) 10.9 % (8-40) D 07/18/20 06:00 Monocytes % 3.8 % (3.8-10.2) 07/27/20 04:05 Monocytes % (Manual) 4 % (3.8-10.2) 07/18/20 06:00 Eosinophils % 0.7 % (0-4.5) 07/27/20 04:05 Eosinophils % (Manual) 0.0 % (0-4.5) 07/18/20 06:00 Basophils % 0.2 % (0-2.0) 07/27/20 04:05 Basophils % (Manual) 0.0 % (0-2.0) 07/18/20 06:00 Myelocytes % (Man) 0 % (0-2) 07/18/20 06:00 Promyelocytes % (Man) 0 % (0-2) 07/18/20 06:00 Blast Cells % (Manual) 0 % (0-0) 07/18/20 06:00 Nucleated RBC % 0 % (0-0) 07/27/20 04:05 Metamyelocytes 0 % (0-2) 07/18/20 06:00 Hypochromia 0 07/18/20 06:00 Platelet Estimate Decreased 07/18/20 06:00 Platelet Comment No clotting detected 07/02/20 00:54 Platelet Comment No clumping noted 07/02/20 00:54 Polychromasia 1+ 07/18/20 06:00 Poikilocytosis 2+ 07/16/20 05:30 Anisocytosis 1+ 07/18/20 06:00 Microcytosis 2+ 07/16/20 05:30 Macrocytosis 0 07/18/20 06:00 Tear Drop Cells 1+ 07/02/20 06:50 Ovalocytes 1+ 07/02/20 06:50 [place] Cells 1+ 07/18/20 06:00 Acanthocytes (Spur) 1+ 07/16/20 05:30 Fragmented RBCs 1+ 07/18/20 06:00 Schistocytes 2+ 07/16/20 05:30 Retic Count 4.15 % (0.5-1.5) H 07/20/20 06:00 Haptoglobin 148 mg/dL (33-278) 07/20/20 15:45 PT with INR 15.90 SEC (9.7-13.0) H 07/27/20 11:00 INR 1.34 (0.83-1.09) H 07/27/20 11:00 PTT (Actin FS) 30.0 SECONDS (25.2-36.5) 07/27/20 11:00 Fibrinogen 344.0 mg/dL (238-498) 07/21/20 06:00 D-Dimer 1728 ng/ml (0-500) H 07/20/20 13:00 Anticoagulation Therapy No Result Required. 07/23/20 05:20 Puncture Site Right brachial 07/23/20 05:20 Patient Temperature No Result Required. 07/23/20 05:20 ABG pH 7.472 (7.350-7.450) H 07/23/20 05:20 ABG pCO2 26.50 mmHg (35-45) L 07/23/20 05:20 ABG pO2 142.3 mmHg (80-100) H 07/23/20 05:20 ABG HCO3 18.9 mmol/L (22-27) L 07/23/20 05:20 ABG O2 Sat (Measured) 99.0 mmHg (95-98) H 07/23/20 05:20 ABG O2 Content No Result Required. 07/23/20 05:20 ABG Base Excess -4.1 mmol/L (-2-2) L 07/23/20 05:20 Yandel Test Positive 07/23/20 05:20 VBG pH 7.377 (7.310-7.410) 07/01/20 15:43 POC VBG pCO2 40.1 mmHg (38-52) 07/01/20 15:43 POC VBG pO2 42.4 mmHg (28-48) 07/01/20 15:43 VBG HCO3 23.0 mmol/L (23-29) 07/01/20 15:43 VBG O2 Sat (Meet) 77.2 % (70-80) 07/01/20 15:43 VBG Base Excess -2.0 mmol/L (-2-2) 07/01/20 15:43 Patient On Oxygen Yes 07/23/20 05:20 O2 Delivery Device Vent 07/23/20 05:20 Oxygen Flow Rate 40% 07/23/20 05:20 Vent Mode A/c 07/23/20 05:20 Vent Rate 14 07/23/20 05:20 Mechanical Rate Yes 07/23/20 05:20 PEEP 5.0 cmH2O 07/23/20 05:20 Pressure Support Vent 350 07/23/20 05:20 Sodium 131 mmol/L (136-145) L 07/28/20 06:10 Potassium 3.9 mmol/L (3.5-5.1) 07/28/20 06:10 Chloride 101 mmol/L (98-107) 07/28/20 06:10 Carbon Dioxide 23 mmol/L (21-32) 07/28/20 06:10 Anion Gap 6 MMOL/L (8-16) L 07/28/20 06:10 BUN 20.5 mg/dL (7-18) H 07/28/20 06:10 Creatinine < 0.2 mg/dL (0.55-1.3) L 07/28/20 06:10 Est GFR (CKD-EPI)AfAm 196.46 07/28/20 06:10 Est GFR (CKD-EPI)NonAf 169.51 07/28/20 06:10 POC Glucometer 146 UNITS (80-120) 07/28/20 12:25 Random Glucose 178 mg/dL (74-106) H 07/28/20 06:10 Lactic Acid 1.6 mmol/L (0.4-2.0) 07/24/20 02:15 Calcium 6.4 mg/dL (8.5-10.1) L* 07/28/20 06:10 Phosphorus 2.0 mg/dL (2.5-4.9) L 07/28/20 06:10 Magnesium 1.8 mg/dL (1.8-2.4) 07/28/20 06:10 Iron 23 ug/dL (50-175) L 07/20/20 06:00 TIBC 88 ug/dL (250-450) L 07/20/20 06:00 Iron Saturation 26 % (17.5-39) 07/20/20 06:00 Unsaturated IBC 65 ug/dL (200-275) L 07/20/20 06:00 Total Bilirubin 0.4 mg/dL (0.2-1) 07/26/20 05:15 Direct Bilirubin 0.3 mg/dL (0.0-0.2) H 07/22/20 06:00 AST 19 U/L (15-37) 07/26/20 05:15 ALT 25 U/L (13-61) 07/26/20 05:15 Alkaline Phosphatase 209 U/L (45-117) H 07/26/20 05:15 Ammonia 38.60 umol/L (11-32) H 07/19/20 13:50 LD Total 242 U/L (84-246) 07/20/20 15:45 Creatine Kinase 38 U/L (26-192) 07/09/20 15:30 Creatine Kinase Index 5.2 % (0.0-5.0) H 07/04/20 06:25 CK-MB (CK-2) 17.0 ng/mL (0.5-3.6) H 07/04/20 06:25 Troponin I < 0.02 ng/ml (0.00-0.05) 07/01/20 14:50 B-Natriuretic Peptide 61125.8 pg/ml (5-125) H 07/04/20 06:25 Total Protein 3.5 g/dl (6.4-8.2) L 07/26/20 05:15 Albumin 1.1 g/dl (3.4-5.0) L 07/28/20 06:10 Tumor Marker AFP 1.8 ng/ml (0.0-8.3) 07/07/20 12:00 Vitamin B12 2423 pg/ml (193-986) H 07/04/20 06:25 Serum Folate 10 ng/mL (3.1-17.5) 07/04/20 06:25 TSH 6.61 uIU/ml (0.358-3.74) H 07/13/20 05:30 Free T4 0.46 ng/dl (0.76-1.46) L 07/13/20 05:30 Free T3 1.0 pg/ml (2.0-4.4) L 07/13/20 05:30 Serum , Qual Negative 07/01/20 17:00 Urine Color Dk yellow 07/24/20 01:31 Urine Appearance Turbid 07/24/20 01:31 Urine pH 5.5 (5.0-8.0) D 07/24/20 01:31 Ur Specific [place] 1.028 (1.010-1.035) 07/24/20 01:31 Urine Protein 1+ (NEGATIVE) H 07/24/20 01:31 Urine Glucose (UA) Negative (NEGATIVE) 07/24/20 01: Urine Ketones Negative (NEGATIVE) 07/24/20 01:31 Urine Blood 3+ (NEGATIVE) H 07/24/20 01:31 Urine Nitrite Positive (NEGATIVE) H 07/24/20 01:31 Urine Bilirubin Negative (NEGATIVE) 07/24/20 01: Urine Urobilinogen 0.2 mg/dL (0.2-1.0) 07/24/20 01:31 Ur Leukocyte Esterase 3+ (NEGATIVE) H 07/24/20 01:31 Urine WBC (Auto) 1786 /uL (0-25.8) 07/24/20 01:31 Urine RBC (Auto) 291.4 /uL (0-23.9) 07/20/20 17:30 Urine Casts (Auto) 2 /uL (0-3.1) 07/24/20 01:31 U Pathogenic Cast Auto Negative /lpf (NEGATIVE) 07/20/20 17:30 U Epithel Cells (Auto) 3 /uL (0-25.1) 07/24/20 01:31 U Sm Round Cell (Auto) Non seen 07/20/20 10:15 Urine Bacteria (Auto) 2900 /uL (0-1359) 07/24/20 01:31 Urine Yeast (Auto) Negative (NEGATIVE) 07/20/20 17:30 Fluid Source Peritoneal 07/27/20 16:15 Fluid WBC 59 /mm3 07/27/20 16:15 Fluid RBC 187 /mm3 07/27/20 16:15 Fluid Neutrophils 50 % 07/27/20 16:15 Fluid Lymphocytes 12 % 07/27/20 16:15 Pleural Monocytes 13 % 07/27/20 16:15 Pleural Macrophages 24 % 07/27/20 16:15 Pleural Diff Comment 07/27/20 16:15 Stool Occult Blood Positive (NEGATIVE) 07/05/20 14:50 Vancomycin Pre-Dose 14.8 ug/ml (5-10) H 07/25/20 02:15 Opiates Screen Positive ng/ml (SGZMFJ=096) A* 07/01/20 17:00 Methadone Screen Negative ng/ml (MNVCCB=022) 07/01/20 17:00 Barbiturate Screen Negative ng/ml (KZITJP=685) 07/01/20 17:00 Phencyclidine Screen Negative ng/ml (CUTOFF=25) 07/01/20 17:00 Ur Amphetamines Screen Negative ng/ml (KNBHGH=034) 07/01/20 17:00 MDMA (Ecstasy) Screen Negative ng/ml (YTGOMZ=937) 07/01/20 17:00 Benzodiazepines Screen Negative ng/ml (XPEKKX=756) 07/01/20 17:00 Cocaine Screen Negative ng/ml (OOLHCV=865) 07/01/20 17:00 U Marijuana (THC) Screen Negative ng/ml (CUTOFF=50) 07/01/20 17:00 Alcohol, Quantitative < 3 mg/dL (0.0-5.0) 07/01/20 14:50 Soluble Liver Ag IgG Ab 1.4 units (0.0-20.0) 07/07/20 12:00 Smooth Musc [employer] Intrp 4 Units (0-19) 07/07/20 12:00 COVID-19 (ALYSIA) Not detected (Not Detected) 07/01/20 15:14 Hep A IgM Ab Confirm Negative (Negative) 07/07/20 12:00 Hepatitis A Ab Total Negative (Negative) 07/07/20 12:00 Hep Bs Antigen Negative (Negative) 07/07/20 12:00 Hep Bs Antibody Non reactive (.) 07/07/20 12:00 Hep B Core Total Ab Negative (Negative) 07/07/20 12:00 Hep B Core IgM Ab Negative (Negative) 07/07/20 12:00 Hepatitis Be Antibody Negative (Negative) 07/07/20 12:00 Hepatitis Be Antigen Negative (Negative) 07/07/20 12:00 Hepatitis C Genotype (.) 07/07/20 12:00 HIV Ag/Ab Combo Qual Negative (NEGATIVE) 07/02/20 00:54 Blood Type O POSITIVE 07/24/20 01:31 Antibody Screen Negative 07/24/20 01:31 Crossmatch See Detail 07/24/20 01:31 Microbiology 07/27/20 16:15 Peritoneal Fluid Gram Stain - Final 07/24/20 03:35 Blood - Peripheral Venous Blood Culture - Preliminary NO GROWTH OBTAINED AFTER 96 HOURS, INCUBATION TO CONTINUE FOR 1 DAYS. 07/24/20 03:00 Blood - Peripheral Venous Blood Culture - Preliminary NO GROWTH OBTAINED AFTER 96 HOURS, INCUBATION TO CONTINUE FOR 1 DAYS. 07/24/20 10:32 Urine - Urine Uribe Urine Culture - Final Klebsiella Pneumoniae - Esbl 07/22/20 18:30 Sputum - Endotrachea Suction/Ventilator Gram Stain - Final 07/22/20 18:30 Sputum - Endotrachea Suction/Ventilator Sputum Culture - Final Yeast Like Organism Fungal Isolate: Mold 07/11/20 23:45 Blood - Peripheral Venous Blood Culture - Final NO GROWTH AFTER 5 DAYS INCUBATION 07/11/20 22:00 Sputum - Endotrachea Suction/Ventilator Gram Stain - Final 07/11/20 22:00 Sputum - Endotrachea Suction/Ventilator Sputum Culture - Final Yeast Like Organism 07/11/20 23:45 Urine - Urine - Catheterized Urine Culture - Final Yeast Like Organism Pseudomonas Aeruginosa 07/04/20 17:00 Sputum - Endotrachea Suction/Ventilator Gram Stain - Final 07/04/20 17:00 Sputum - Endotrachea Suction/Ventilator Sputum Culture - Final Yeast Like Organism 07/01/20 15:50 Blood - Peripheral Venous Blood Culture - Final NO GROWTH AFTER 5 DAYS INCUBATION 07/01/20 15:43 Blood - Peripheral Venous Blood Culture - Final NO GROWTH AFTER 5 DAYS INCUBATION 07/01/20 15:50 Urine - Urine Suprapubic Urine Culture - Final Pseudomonas Aeruginosa Escherichia Coli Enterococcus Avium - ....Imaging Chest X-ray: Report Reviewed Problem List - Problems (1) Bowel obstruction Code(s): K56.609 - UNSP INTESTNL OBST, UNSP TO PARTIAL VERSUS COMPLETE OBST (2) Hypothermia Code(s): T68.XXXA - HYPOTHERMIA, INITIAL ENCOUNTER (3) Pneumonia Code(s): J18.9 - PNEUMONIA, UNSPECIFIED ORGANISM (4) SBO (small bowel obstruction) Code(s): K56.609 - UNSP INTESTNL OBST, UNSP TO PARTIAL VERSUS COMPLETE OBST (5) Sepsis Code(s): A41.9 - SEPSIS, UNSPECIFIED ORGANISM Qualifiers: Sepsis type: sepsis due to unspecified organism Sepsis acute organ dysfunction status: unspecified Qualified Code(s): A41.9 - Sepsis, unspecified organism (6) UTI (urinary tract infection) Code(s): N39.0 - URINARY TRACT INFECTION, SITE NOT SPECIFIED Qualifiers: Urinary tract infection type: site unspecified Hematuria presence: with hematuria Qualified Code(s): N39.0 - Urinary tract infection, site not specified; R31.9 - Hematuria, unspecified (7) Alcoholic liver damage Code(s): K70.9 - ALCOHOLIC LIVER DISEASE, UNSPECIFIED (8) Cachexia Code(s): R64 - CACHEXIA (9) Lactic acid acidosis Code(s): E87.2 - ACIDOSIS (10) Substance abuse Code(s): F19.10 - OTHER PSYCHOACTIVE SUBSTANCE ABUSE, UNCOMPLICATED Assessment/Plan Acute respiratory failure on MV s/p trach Sepsis/shock on vasopressor PNA, Likely Aspiration Carbapenem resistant UTI SBO resolving Ascites s/p drain placement ETOH/Heroin abuse Failure to thrive Severe malnutrition Vesiculo-intestinal fistula -- labs/imaging results reviewed, events noted -- Pt alert, afebrile, remains on pressors -- latest cultures neg, follow up peritoneal cutures -- afebrile, wbc trended down -- continue Tigecycline cc: 38 min
[2020-07-28] MEDS: DEXTROSE 5%-LACTATED RINGERS 1,000 ML IV SCH (18:19)
--- NOTE | 2020-07-28 22:10 | PN ---
Progress Note, Physician - Current Medication List Current Medications: Active Medications Acetaminophen (Tylenol -) 500 mg PO Q6H PRN PRN Reason: PAIN LEVEL 1-5 Ascorbic Acid (Vitamin C -) 500 mg PO DAILY [facility] Last Admin: 07/28/20 10:49 Dose: 500 mg Documented by: Banana Based Medical Food (Banatrol Plus Powder Packet) 1 packet GT TID [facility] Last Admin: 07/28/20 21:28 Dose: 1 packet Documented by: Dextrose (D50w (Vial) -) 12.5 gm IVPUSH PRN PRN PRN Reason: HYPOGLYCEMIA Last Admin: 07/27/20 22:02 Dose: 12.5 gm Documented by: Folic Acid (Folic Acid -) 1 mg NGT DAILY [facility] Last Admin: 07/28/20 10:49 Dose: 1 mg Documented by: Heparin Sodium (Porcine) (Heparin -) 5,000 unit SQ BID [facility] Last Admin: 07/28/20 21:29 Dose: 5,000 unit Documented by: Hydromorphone HCl (Dilaudid Vial -) 1 mg IVPUSH Q3H PRN PRN Reason: PAIN LEVEL 7 - 10 Last Admin: 07/28/20 18:15 Dose: 1 mg Documented by: Dexmedetomidine/Sodium Chloride (Precedex 400 Mcg/100 Ml Inject) 400 mcg in 100 mls @ 1.542 mls/hr IVPB TITR [facility] Last Admin: 07/28/20 11:15 Dose: 0.7 mcg/kg/hr, 5.398 mls/hr Documented by: Vasopressin 40 units/ Sodium (Chloride) 100 mls @ 5 mls/hr IVPB ASDIR [facility]; Protocol Last Titration: 07/28/20 17:05 Dose: 5 units/hr, 12.5 mls/hr Documented by: Tigecycline 50 mg/ Dextrose 100 mls @ 100 mls/hr IVPB BID [facility]; Protocol Last Admin: 07/28/20 21:29 Dose: 100 mls/hr Documented by: Dextrose/Lactated Ringer's (D5-Lr -) 1,000 mls @ 42 mls/hr IV ASDIR [facility] Last Admin: 07/28/20 18:19 Dose: 42 mls/hr Documented by: Lidocaine HCl (Xylocaine 5% Top. Ointment) 1 applic TP DAILY [facility] Last Admin: 07/28/20 13:55 Dose: 1 applic Documented by: Multi-Ingredient Ointment (Zinc Oxide) 1 applic TP DAILY [facility] Last Admin: 07/28/20 14:30 Dose: 1 applic Documented by: Multivitamins/Minerals (Certavite-Antioxidant Liquid) 15 ml NGT DAILY [facility] Last Admin: 07/28/20 10:49 Dose: 15 ml Documented by: Potassium Chloride (Potassium Chloride Oral Liquid) 40 meq PO DAILY [facility] Last Admin: 07/28/20 10:50 Dose: 40 meq Documented by: Potassium Phos/Sodium Phos (Phos-Nak Packet -) 1 packet PO TID [facility] Last Admin: 07/28/20 21:29 Dose: 1 packet Documented by: Thiamine HCl (Vitamin B1 Injection -) 100 mg IVPB DAILY [facility] Last Admin: 07/28/20 13:15 Dose: 100 mg Documented by: - Objective Vital Signs: Vital Signs Temperature 98.3 F 07/28/20 18:00 Pulse Rate 70 07/28/20 20:00 Respiratory Rate 19 07/28/20 20:00 Blood Pressure 97/65 07/28/20 20:00 O2 Sat by Pulse Oximetry (%) 100 07/28/20 20:00 Labs: CBC, BMP 07/28/20 06:10 07/28/20 06:10 INR, PTT INR 1.34 (0.83-1.09) H 07/27/20 11:00 Fibrinogen 344.0 mg/dL (238-498) 07/21/20 06:00 Problem List - Problems (1) Respiratory failure Code(s): J96.90 - RESPIRATORY FAILURE, UNSP, UNSP W HYPOXIA OR HYPERCAPNIA (2) Sepsis Code(s): A41.9 - SEPSIS, UNSPECIFIED ORGANISM Qualifiers: Sepsis type: sepsis due to unspecified organism Sepsis acute organ dysfunction status: unspecified Qualified Code(s): A41.9 - Sepsis, unspecified organism (3) Anemia Code(s): D64.9 - ANEMIA, UNSPECIFIED (4) At risk for electrolyte imbalance Code(s): Z91.89 - OTH PERSONAL RISK FACTORS, NOT ELSEWHERE CLASSIFIED (5) SBO (small bowel obstruction) Code(s): K56.609 - UNSP INTESTNL OBST, UNSP TO PARTIAL VERSUS COMPLETE OBST (6) Liver cirrhosis, alcoholic Code(s): K70.30 - ALCOHOLIC CIRRHOSIS OF LIVER WITHOUT ASCITES (7) Hypoalbuminemia Code(s): E88.09 - OTH DISORDERS OF PLASMA-PROTEIN METABOLISM, NEC (8) Substance abuse Code(s): F19.10 - OTHER PSYCHOACTIVE SUBSTANCE ABUSE, UNCOMPLICATED (9) Cachexia Code(s): R64 - CACHEXIA (10) Severe malnutrition Code(s): E43 - UNSPECIFIED SEVERE PROTEIN-CALORIE MALNUTRITION (11) Sacral ulcer Code(s): L98.429 - NON-PRESSURE CHRONIC ULCER OF BACK WITH UNSPECIFIED SEVERITY
[2020-07-29] MEDS: HYDROmorphone HCl 2 MG/ML VIAL IVPUSH PRN ×7 (04:06→21:50)
[2020-07-29] MEDS: BANATROL PLUS POWDER PACKET GT SCH ×3 (05:52→21:49)
[2020-07-29] MEDS: NAPH,MB-DB/K PH,MBDB POWDER PACKET PO SCH ×3 (05:52→21:49)
[2020-07-29 07:00] LABS: BASO % 0.1 % (0-2.0); EOS % 0.6 % (0-4.5); HEMATOCRIT 22.7 % (32.4-45.2); HEMOGLOBIN 7.8 GM/dL (10.7-15.3); MCHC 34.2 g/dl (32.0-36.0); MEAN CELL VOLUME 87.7 fl (80-96); MEAN PLT VOLUME 8.2 fl (7.5-11.1); MONO % 5.2 % (3.8-10.2); NEUT % 87.1 % (42.8-82.8); PLATELET COUNT 287 K/MM3 (134-434); RBC 2.58 M/mm3 (3.60-5.2); RDW 19.3 % (11.6-15.6); WHITE BLOOD COUNT 7.6 K/mm3 (4.0-10.0)
[2020-07-29] MEDS ORDERED: VASOPRESSIN 20 UNITS/ML VIAL IV ONE (07:08)
[2020-07-29] MEDS: VASOPRESSIN 40 UNITS in SODIUM CHLORIDE 98 ML IVPB SCH ×2 (07:14→19:00)
[2020-07-29 07:15] LABS: INR 1.74 (0.83-1.09); PROTHROMBIN TIME (PATIENT) 20.7 SEC (9.7-13.0)
[2020-07-29 07:17] LABS: ACTIVATED PTT 40.3 SECONDS (25.2-36.5)
[2020-07-29 07:21] LABS: ALBUMIN 1.6 g/dl (3.4-5.0); ANION GAP 7 MMOL/L (8-16); BILIRUBIN,TOTAL 0.4 mg/dL (0.2-1); CHLORIDE 101 mmol/L (98-107); CO2 24 mmol/L (21-32); GLUCOSE,RANDOM 141 mg/dL (74-106); MAGNESIUM 1.6 mg/dL (1.8-2.4); PHOSPHOROUS 1.8 mg/dL (2.5-4.9); POTASSIUM 4.1 mmol/L (3.5-5.1); SGOT/AST 33 U/L (15-37); SGPT/ALT 32 U/L (13-61); SODIUM 131 mmol/L (136-145); TOT PROT 3.7 g/dl (6.4-8.2)
[2020-07-29 07:27] LABS: ALK PHOS 385 U/L (45-117)
[2020-07-29 07:31] LABS: CALCIUM 6.1 mg/dL (8.5-10.1); CREATININE < 0.2 mg/dL (0.55-1.3)
[2020-07-29] MEDS ORDERED: PHYTONADIONE 5 MG TABLET PO ONE (07:59)
[2020-07-29] MEDS ORDERED: CALCIUM CARBONATE SUSPENSION - 500 MG/5 ML ML PO SCH (08:00)
[2020-07-29] MEDS ORDERED: MAGNESIUM SULF 50% (8.12 MEQ/2 ML-1 GM VIAL) IVPB ONE (08:45)
[2020-07-29] MEDS: THIAMINE HCL 200 MG/2 ML VIAL IVPB SCH (09:11)
[2020-07-29] MEDS: TIGECYCLINE 50 MG in DEXTROSE 5%-WATER - 100 ML IVPB SCH ×2 (09:12→21:50)
[2020-07-29] MEDS: ASCORBIC ACID 500 MG TABLET (FP) PO SCH (09:13)
[2020-07-29] MEDS: FOLIC ACID 1 MG TABLET (FP) NGT SCH (09:13)
[2020-07-29] MEDS: POTASSIUM CHLORIDE ORAL LIQUID 20 MEQ/15 ML PO SCH (09:13)
[2020-07-29] MEDS: HEPARIN NA (PORCINE) 5,000 UNITS/ML 1ML VIAL SQ SCH (09:15)
[2020-07-29] MEDS: ACETAMINOPHEN 500 MG TABLET (FP) PO PRN ×2 (09:16→17:29)
[2020-07-29] MEDS: ZINC OXIDE 20% TOPICAL OINTMENT 30 GM TUBE TP SCH (09:16)
[2020-07-29] MEDS ORDERED: PT OWN MED DRAWER 7, Y5N ONE ×2 (09:27→12:43)
[2020-07-29] MEDS: MULTIVIT-MINERALS ORAL LIQUID NGT SCH (09:29)
[2020-07-29] MEDS ORDERED: SODIUM PHOSPHATE - 20 MM in SODIUM CHLORIDE 250 ML IVPB ONE (09:30)
[2020-07-29] MEDS: LIDOCAINE HCL 5% TOP OINTMENT 50 GM TUBE TP SCH (09:30)
--- NOTE | 2020-07-29 09:33 | PN ---
Teaching Attending Note Name of Resident: Ehsan Escobar ATTENDING PHYSICIAN STATEMENT I saw and evaluated the patient. I reviewed the resident's note and discussed the case with the resident. I agree with the resident's findings and plan as documented. SUBJECTIVE: Pt seen and examined in the ICU. Vented, awake. Still c/o pain all over. Remains on vasopressin gtt. OBJECTIVE: Vital Signs Period Temp Pulse Resp BP Sys/Campbell Pulse Ox Last 24 Hr 98.1 F-98.6 F 55-130 14-29 81-119/53-93 95-100 Intake & Output 07/26/20 07/27/20 07/28/20 07/29/20 23:59 23:59 23:59 23:59 Intake Total 2176.6 2985 3360 1718.8 Output Total 475 2740 4080 1700 Balance 1701.6 245 -720 18.8 Weight 31.116 kg 38.7 kg 38.7 kg Gen: intubated, sedated, cachectic Heart: RRR Lung: scattered rhonchi Abd: soft, nontender, +ascites Ext: no edema CBC, BMP 07/29/20 05:00 07/29/20 05:00 Active Medications Acetaminophen (Tylenol -) 500 mg PO Q6H PRN PRN Reason: PAIN LEVEL 1-5 Last Admin: 07/29/20 09:16 Dose: 500 mg Documented by: Ascorbic Acid (Vitamin C -) 500 mg PO DAILY [facility] Last Admin: 07/29/20 09:13 Dose: 500 mg Documented by: Banana Based Medical Food (Banatrol Plus Powder Packet) 1 packet GT TID [facility] Last Admin: 07/29/20 05:52 Dose: 1 packet Documented by: Calcium Carbonate (Calcium Carb Oral Suspension -) 500 mg PO Q8H [facility] Stop: 07/29/20 18:01 Dextrose (D50w (Vial) -) 12.5 gm IVPUSH PRN PRN PRN Reason: HYPOGLYCEMIA Last Admin: 07/27/20 22:02 Dose: 12.5 gm Documented by: Folic Acid (Folic Acid -) 1 mg NGT DAILY [facility] Last Admin: 07/29/20 09:13 Dose: 1 mg Documented by: Heparin Sodium (Porcine) (Heparin -) 5,000 unit SQ BID [facility] Last Admin: 07/29/20 09:15 Dose: 5,000 unit Documented by: Hydromorphone HCl (Dilaudid Vial -) 1 mg IVPUSH Q3H PRN PRN Reason: PAIN LEVEL 7 - 10 Last Admin: 07/29/20 07:04 Dose: 1 mg Documented by: Dexmedetomidine/Sodium Chloride (Precedex 400 Mcg/100 Ml Inject) 400 mcg in 100 mls @ 1.542 mls/hr IVPB TITR [facility] Last Admin: 07/28/20 11:15 Dose: 0.7 mcg/kg/hr, 5.398 mls/hr Documented by: Vasopressin 40 units/ Sodium (Chloride) 100 mls @ 5 mls/hr IVPB ASDIR [facility]; Protocol Last Admin: 07/29/20 07:14 Dose: 5 units/hr, 12.5 mls/hr Documented by: Tigecycline 50 mg/ Dextrose 100 mls @ 100 mls/hr IVPB BID RAUL; Protocol Last Admin: 07/29/20 09:12 Dose: 100 mls/hr Documented by: Dextrose/Lactated Ringer's (D5-Lr -) 1,000 mls @ 42 mls/hr IV ASDIR RAUL Last Admin: 07/28/20 18:19 Dose: 42 mls/hr Documented by: Sodium Phosphate 20 mm/ Sodium (Chloride) 256.6667 mls @ 62.5 mls/hr IVPB ONCE ONE Stop: 07/29/20 13:36 Lidocaine HCl (Xylocaine 5% Top. Ointment) 1 applic TP DAILY [facility] Last Admin: 07/29/20 09:30 Dose: Not Given Documented by: Multi-Ingredient Ointment (Zinc Oxide) 1 applic TP DAILY [facility] Last Admin: 07/29/20 09:16 Dose: 1 applic Documented by: Multivitamins/Minerals (Certavite-Antioxidant Liquid) 15 ml NGT DAILY [facility] Last Admin: 07/29/20 09:29 Dose: 15 ml Documented by: Potassium Chloride (Potassium Chloride Oral Liquid) 40 meq PO DAILY [facility] Last Admin: 07/29/20 09:13 Dose: 40 meq Documented by: Potassium Phos/Sodium Phos (Phos-Nak Packet -) 1 packet PO TID [facility] Last Admin: 07/29/20 05:52 Dose: 1 packet Documented by: Thiamine HCl (Vitamin B1 Injection -) 100 mg IVPB DAILY [facility] Last Admin: 07/29/20 09:11 Dose: 100 mg Documented by: ASSESSMENT AND PLAN: Acute Hypoxic Respiratory Failure s/p Tracheostomy Pneumonia likely Aspiration UTI Sepsis Hyponatremia Small Bowel Obstruction Ascites s/p Peritoneal drain placement Alcohol/Heroin Abuse Anemia/Thrombocytopenia Failure to Thrive Severe Protein Calorie Malnutrition Refeeding Syndrome - pain control - monitor urine output, creatinine - replete lytes - continue antibiotics - titrate pressors to maintain MAP >65 - titrate FiO2 to keep SpO2 >90% - spontaneous breathing trials as tolerated - enteral feeds, will need PEG placement - DVT/GI prophylaxis - continue ICU monitoring critical care time spent in reviewing chart, evaluating patient and formulating plan 35 min
[2020-07-29] MEDS: CALCIUM CARBONATE SUSPENSION - 500 MG/5 ML ML PO SCH ×2 (10:22→17:29)
[2020-07-29] MEDS ORDERED: ALBUMIN HUMAN 25% 12.5 GM/50 ML VIAL IVPB SCH (12:30)
[2020-07-29] MEDS ORDERED: FUROSEMIDE 40 MG/4 ML INJECTABLE VIAL IVPUSH ONE (12:40)
[2020-07-29] MEDS: DEXMEDETOMIDINE IN 0.9 % NACL 400 MCG/100 ML VIAL IVPB SCH (13:08)
--- NOTE | 2020-07-29 13:23 | PN ---
Progress Note, Physician History of Present Illness: Pt is alert and responsive, remains afebrile without distress. On MV with trach. Remains on vasopressor. + peritoneal drain with fluids. - Current Medication List Current Medications: Active Medications Acetaminophen (Tylenol -) 500 mg PO Q6H PRN PRN Reason: PAIN LEVEL 1-5 Last Admin: 07/29/20 09:16 Dose: 500 mg Documented by: Ascorbic Acid (Vitamin C -) 500 mg PO DAILY [facility] Last Admin: 07/29/20 09:13 Dose: 500 mg Documented by: Banana Based Medical Food (Banatrol Plus Powder Packet) 1 packet GT TID [facility] Last Admin: 07/29/20 13:15 Dose: 1 packet Documented by: Calcium Carbonate (Calcium Carb Oral Suspension -) 500 mg PO Q8H [facility] Stop: 07/29/20 18:01 Last Admin: 07/29/20 10:22 Dose: 500 mg Documented by: Dextrose (D50w (Vial) -) 12.5 gm IVPUSH PRN PRN PRN Reason: HYPOGLYCEMIA Last Admin: 07/27/20 22:02 Dose: 12.5 gm Documented by: Folic Acid (Folic Acid -) 1 mg NGT DAILY [facility] Last Admin: 07/29/20 09:13 Dose: 1 mg Documented by: Heparin Sodium (Porcine) (Heparin -) 5,000 unit SQ BID [facility] Last Admin: 07/29/20 09:15 Dose: 5,000 unit Documented by: Hydromorphone HCl (Dilaudid Vial -) 1 mg IVPUSH Q3H PRN PRN Reason: PAIN LEVEL 7 - 10 Last Admin: 07/29/20 13:00 Dose: 1 mg Documented by: Dexmedetomidine/Sodium Chloride (Precedex 400 Mcg/100 Ml Inject) 400 mcg in 100 mls @ 1.542 mls/hr IVPB TITR [facility] Last Admin: 07/29/20 13:08 Dose: 0.7 mcg/kg/hr, 5.398 mls/hr Documented by: Vasopressin 40 units/ Sodium (Chloride) 100 mls @ 5 mls/hr IVPB ASDIR [facility]; Protocol Last Admin: 07/29/20 07:14 Dose: 5 units/hr, 12.5 mls/hr Documented by: Tigecycline 50 mg/ Dextrose 100 mls @ 100 mls/hr IVPB BID RAUL; Protocol Last Admin: 07/29/20 09:12 Dose: 100 mls/hr Documented by: Dextrose/Lactated Ringer's (D5-Lr -) 1,000 mls @ 42 mls/hr IV ASDIR [facility] Last Admin: 07/28/20 18:19 Dose: 42 mls/hr Documented by: Sodium Phosphate 20 mm/ Sodium (Chloride) 256.6667 mls @ 62.5 mls/hr IVPB ONCE ONE Stop: 07/29/20 13:36 Last Admin: 07/29/20 10:21 Dose: 62.5 mls/hr Documented by: Lidocaine HCl (Xylocaine 5% Top. Ointment) 1 applic TP DAILY [facility] Last Admin: 07/29/20 09:30 Dose: Not Given Documented by: Multi-Ingredient Ointment (Zinc Oxide) 1 applic TP DAILY [facility] Last Admin: 07/29/20 09:16 Dose: 1 applic Documented by: Multivitamins/Minerals (Certavite-Antioxidant Liquid) 15 ml NGT DAILY [facility] Last Admin: 07/29/20 09:29 Dose: 15 ml Documented by: Potassium Chloride (Potassium Chloride Oral Liquid) 40 meq PO DAILY [facility] Last Admin: 07/29/20 09:13 Dose: 40 meq Documented by: Potassium Phos/Sodium Phos (Phos-Nak Packet -) 1 packet PO TID [facility] Last Admin: 07/29/20 13:15 Dose: 1 packet Documented by: Thiamine HCl (Vitamin B1 Injection -) 100 mg IVPB DAILY [facility] Last Admin: 07/29/20 09:11 Dose: 100 mg Documented by: - Objective Vital Signs: Vital Signs Temperature 97 F L 07/29/20 09:37 Pulse Rate 56 L 07/29/20 11:11 Respiratory Rate 16 07/29/20 12:08 Blood Pressure 99/64 07/29/20 13:00 O2 Sat by Pulse Oximetry (%) 100 07/29/20 12:08 Constitutional: Yes: No Distress, Calm Cardiovascular: Yes: Regular Rate and Rhythm Respiratory: Yes: Mechanically Ventilated, Rhonchi Gastrointestinal: Yes: Normal Bowel Sounds, Soft, Other (peritoneal drain with copious fluid draining) ...Rectal Exam: Yes: Other (rectal tube with less watery stools) Genitourinary: Yes: Uribe Present Extremities: Yes: WNL Edema: No Integumentary: Yes: Pressure Ulcer (unstageable) Neurological: Yes: Alert Labs: CBC, BMP 07/29/20 05:00 07/29/20 05:00 INR, PTT INR 1.74 (0.83-1.09) H 07/29/20 05:00 Fibrinogen 344.0 mg/dL (238-498) 07/21/20 06:00 Laboratory Last Values WBC 7.6 K/mm3 (4.0-10.0) 07/29/20 05:00 RBC 2.58 M/mm3 (3.60-5.2) L 07/29/20 05:00 Hgb 7.8 GM/dL (10.7-15.3) L 07/29/20 05:00 Hct 22.7 % (32.4-45.2) L 07/29/20 05:00 MCV 87.7 fl (80-96) 07/29/20 05:00 MCH 30.0 pg (25.7-33.7) 07/29/20 05:00 MCHC 34.2 g/dl (32.0-36.0) 07/29/20 05:00 RDW 19.3 % (11.6-15.6) H 07/29/20 05:00 Plt Count 287 K/MM3 (134-434) 07/29/20 05:00 MPV 8.2 fl (7.5-11.1) 07/29/20 05:00 Absolute Neuts (auto) 6.7 K/mm3 (1.5-8.0) 07/29/20 05:00 Total Counted 100 07/04/20 10:45 Neutrophils % 87.1 % (42.8-82.8) H 07/29/20 05:00 Neutrophils % (Manual) 82.7 % (42.8-82.8) 07/18/20 06:00 Band Neutrophils % 2.7 % 07/18/20 06:00 Lymphocytes % 7.0 % (8-40) L D 07/29/20 05:00 Lymphocytes % (Manual) 10.9 % (8-40) D 07/18/20 06:00 Monocytes % 5.2 % (3.8-10.2) 07/29/20 05:00 Monocytes % (Manual) 4 % (3.8-10.2) 07/18/20 06:00 Eosinophils % 0.6 % (0-4.5) 07/29/20 05:00 Eosinophils % (Manual) 0.0 % (0-4.5) 07/18/20 06:00 Basophils % 0.1 % (0-2.0) 07/29/20 05:00 Basophils % (Manual) 0.0 % (0-2.0) 07/18/20 06:00 Myelocytes % (Man) 0 % (0-2) 07/18/20 06:00 Promyelocytes % (Man) 0 % (0-2) 07/18/20 06:00 Blast Cells % (Manual) 0 % (0-0) 07/18/20 06:00 Nucleated RBC % 0 % (0-0) 07/29/20 05:00 Metamyelocytes 0 % (0-2) 07/18/20 06:00 Hypochromia 0 07/18/20 06:00 Platelet Estimate Decreased 07/18/20 06:00 Platelet Comment No clotting detected 07/02/20 00:54 Platelet Comment No clumping noted 07/02/20 00:54 Polychromasia 1+ 07/18/20 06:00 Poikilocytosis 2+ 07/16/20 05:30 Anisocytosis 1+ 07/18/20 06:00 Microcytosis 2+ 07/16/20 05:30 Macrocytosis 0 07/18/20 06:00 Tear Drop Cells 1+ 07/02/20 06:50 Ovalocytes 1+ 07/02/20 06:50 Ho Cells 1+ 07/18/20 06:00 Acanthocytes (Spur) 1+ 07/16/20 05:30 Fragmented RBCs 1+ 07/18/20 06:00 Schistocytes 2+ 07/16/20 05:30 Retic Count 4.15 % (0.5-1.5) H 07/20/20 06:00 Haptoglobin 148 mg/dL (33-278) 07/20/20 15:45 PT with INR 20.70 SEC (9.7-13.0) H 07/29/20 05:00 INR 1.74 (0.83-1.09) H 07/29/20 05:00 PTT (Actin FS) 40.3 SECONDS (25.2-36.5) H 07/29/20 05:00 Fibrinogen 344.0 mg/dL (238-498) 07/21/20 06:00 D-Dimer 1728 ng/ml (0-500) H 07/20/20 13:00 Anticoagulation Therapy No Result Required. 07/23/20 05:20 Puncture Site Right brachial 07/23/20 05:20 Patient Temperature No Result Required. 07/23/20 05:20 ABG pH 7.472 (7.350-7.450) H 07/23/20 05:20 ABG pCO2 26.50 mmHg (35-45) L 07/23/20 05:20 ABG pO2 142.3 mmHg (80-100) H 07/23/20 05:20 ABG HCO3 18.9 mmol/L (22-27) L 07/23/20 05:20 ABG O2 Sat (Measured) 99.0 mmHg (95-98) H 07/23/20 05:20 ABG O2 Content No Result Required. 07/23/20 05:20 ABG Base Excess -4.1 mmol/L (-2-2) L 07/23/20 05:20 Yandel Test Positive 07/23/20 05:20 VBG pH 7.377 (7.310-7.410) 07/01/20 15:43 POC VBG pCO2 40.1 mmHg (38-52) 07/01/20 15:43 POC VBG pO2 42.4 mmHg (28-48) 07/01/20 15:43 VBG HCO3 23.0 mmol/L (23-29) 07/01/20 15:43 VBG O2 Sat (Meet) 77.2 % (70-80) 07/01/20 15:43 VBG Base Excess -2.0 mmol/L (-2-2) 07/01/20 15:43 Patient On Oxygen Yes 07/23/20 05:20 O2 Delivery Device Vent 07/23/20 05:20 Oxygen Flow Rate 40% 07/23/20 05:20 Vent Mode A/c 07/23/20 05:20 Vent Rate 14 07/23/20 05:20 Mechanical Rate Yes 07/23/20 05:20 PEEP 5.0 cmH2O 07/23/20 05:20 Pressure Support Vent 350 07/23/20 05:20 Sodium 131 mmol/L (136-145) L 07/29/20 05:00 Potassium 4.1 mmol/L (3.5-5.1) 07/29/20 05:00 Chloride 101 mmol/L (98-107) 07/29/20 05:00 Carbon Dioxide 24 mmol/L (21-32) 07/29/20 05:00 Anion Gap 7 MMOL/L (8-16) L 07/29/20 05:00 BUN 18.0 mg/dL (7-18) 07/29/20 05:00 Creatinine < 0.2 mg/dL (0.55-1.3) L 07/29/20 05:00 Est GFR (CKD-EPI)AfAm 196.46 07/29/20 05:00 Est GFR (CKD-EPI)NonAf 169.51 07/29/20 05:00 POC Glucometer 127 UNITS (80-120) 07/29/20 11:14 Random Glucose 141 mg/dL (74-106) H 07/29/20 05:00 Lactic Acid 1.6 mmol/L (0.4-2.0) 07/24/20 02:15 Calcium 6.1 mg/dL (8.5-10.1) L* 07/29/20 05:00 Phosphorus 1.8 mg/dL (2.5-4.9) L 07/29/20 05:00 Magnesium 1.6 mg/dL (1.8-2.4) L 07/29/20 05:00 Iron 23 ug/dL (50-175) L 07/20/20 06:00 TIBC 88 ug/dL (250-450) L 07/20/20 06:00 Iron Saturation 26 % (17.5-39) 07/20/20 06:00 Unsaturated IBC 65 ug/dL (200-275) L 07/20/20 06:00 Total Bilirubin 0.4 mg/dL (0.2-1) 07/29/20 05:00 Direct Bilirubin 0.3 mg/dL (0.0-0.2) H 07/22/20 06:00 AST 33 U/L (15-37) 07/29/20 05:00 ALT 32 U/L (13-61) 07/29/20 05:00 Alkaline Phosphatase 385 U/L (45-117) H 07/29/20 05:00 Ammonia 38.60 umol/L (11-32) H 07/19/20 13:50 LD Total 242 U/L (84-246) 07/20/20 15:45 Creatine Kinase 38 U/L (26-192) 07/09/20 15:30 Creatine Kinase Index 5.2 % (0.0-5.0) H 07/04/20 06:25 CK-MB (CK-2) 17.0 ng/mL (0.5-3.6) H 07/04/20 06:25 Troponin I < 0.02 ng/ml (0.00-0.05) 07/01/20 14:50 B-Natriuretic Peptide 34086.8 pg/ml (5-125) H 07/04/20 06:25 Total Protein 3.7 g/dl (6.4-8.2) L 07/29/20 05:00 Albumin 1.6 g/dl (3.4-5.0) L 07/29/20 05:00 Tumor Marker AFP 1.8 ng/ml (0.0-8.3) 07/07/20 12:00 Vitamin B12 2423 pg/ml (193-986) H 07/04/20 06:25 Serum Folate 10 ng/mL (3.1-17.5) 07/04/20 06:25 TSH 6.61 uIU/ml (0.358-3.74) H 07/13/20 05:30 Free T4 0.46 ng/dl (0.76-1.46) L 07/13/20 05:30 Free T3 1.0 pg/ml (2.0-4.4) L 07/13/20 05:30 Serum , Qual Negative 07/01/20 17:00 Urine Color Dk yellow 07/24/20 01:31 Urine Appearance Turbid 07/24/20 01:31 Urine pH 5.5 (5.0-8.0) D 07/24/20 01:31 Ur Specific Stollings 1.028 (1.010-1.035) 07/24/20 01:31 Urine Protein 1+ (NEGATIVE) H 07/24/20 01:31 Urine Glucose (UA) Negative (NEGATIVE) 07/24/20 01:31 Urine Ketones Negative (NEGATIVE) 09/22/20 01:31 Urine Blood 3+ (NEGATIVE) H 07/24/20 01:31 Urine Nitrite Positive (NEGATIVE) H 07/24/20 01:31 Urine Bilirubin Negative (NEGATIVE) 07/24/20 01:31 Urine Urobilinogen 0.2 mg/dL (0.2-1.0) 07/24/20 01:31 Ur Leukocyte Esterase 3+ (NEGATIVE) H 07/24/20 01:31 Urine WBC (Auto) 1786 /uL (0-25.8) 07/24/20 01:31 Urine RBC (Auto) 291.4 /uL (0-23.9) 07/20/20 17:30 Urine Casts (Auto) 2 /uL (0-3.1) 07/24/20 01:31 U Pathogenic Cast Auto Negative /lpf (NEGATIVE) 07/20/20 17:30 U Epithel Cells (Auto) 3 /uL (0-25.1) 07/24/20 01:31 U Sm Round Cell (Auto) Non seen 07/20/20 10:15 Urine Bacteria (Auto) 2900 /uL (0-1359) 07/24/20 01:31 Urine Yeast (Auto) Negative (NEGATIVE) 07/20/20 17:30 Fluid Source Peritoneal 07/27/20 16:15 Fluid WBC 59 /mm3 07/27/20 16:15 Fluid RBC 187 /mm3 07/27/20 16:15 Fluid Neutrophils 50 % 07/27/20 16:15 Fluid Lymphocytes 12 % 07/27/20 16:15 Pleural Monocytes 13 % 07/27/20 16:15 Pleural Macrophages 24 % 07/27/20 16:15 Pleural Diff Comment 07/27/20 16:15 Stool Occult Blood Positive (NEGATIVE) 07/05/20 14:50 Vancomycin Pre-Dose 14.8 ug/ml (5-10) H 07/25/20 02:15 Opiates Screen Positive ng/ml (BSWOOM=660) A* 07/01/20 17:00 Methadone Screen Negative ng/ml (ZYZVYO=579) 07/01/20 17:00 Barbiturate Screen Negative ng/ml (QLDHEZ=017) 07/01/20 17:00 Phencyclidine Screen Negative ng/ml (CUTOFF=25) 07/01/20 17:00 Ur Amphetamines Screen Negative ng/ml (HBDONN=773) 07/01/20 17:00 MDMA (Ecstasy) Screen Negative ng/ml (RXEJYQ=830) 07/01/20 17:00 Benzodiazepines Screen Negative ng/ml (AEBMBX=513) 07/01/20 17:00 Cocaine Screen Negative ng/ml (WFHYWH=491) 07/01/20 17:00 U Marijuana (THC) Screen Negative ng/ml (CUTOFF=50) 07/01/20 17:00 Alcohol, Quantitative < 3 mg/dL (0.0-5.0) 07/01/20 14:50 Soluble Liver Ag IgG Ab 1.4 units (0.0-20.0) 07/07/20 12:00 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 Intrp 4 Units (0-19) 07/07/20 12:00 COVID-19 (ALYSIA) Not detected (Not Detected) 07/01/20 15:14 Hep A IgM Ab Confirm Negative (Negative) 07/07/20 12:00 Hepatitis A Ab Total Negative (Negative) 07/07/20 12:00 Hep Bs Antigen Negative (Negative) 07/07/20 12:00 Hep Bs Antibody Non reactive (.) 07/07/20 12:00 Hep B Core Total Ab Negative (Negative) 07/07/20 12:00 Hep B Core IgM Ab Negative (Negative) 07/07/20 12:00 Hepatitis Be Antibody Negative (Negative) 07/07/20 12:00 Hepatitis Be Antigen Negative (Negative) 07/07/20 12:00 Hepatitis C Genotype (.) 07/07/20 12:00 HIV Ag/Ab Combo Qual Negative (NEGATIVE) 07/02/20 00:54 Blood Type O POSITIVE 07/24/20 01:31 Antibody Screen Negative 07/24/20 01:31 Crossmatch See Detail 07/24/20 01:31 Microbiology 07/27/20 16:15 Peritoneal Fluid Gram Stain - Final 07/27/20 16:15 Peritoneal Fluid Body Fluid Culture - Preliminary NO AEROBIC GROWTH, 24 HRS 07/24/20 03:35 Blood - Peripheral Venous Blood Culture - Final NO GROWTH AFTER 5 DAYS INCUBATION 07/24/20 03:00 Blood - Peripheral Venous Blood Culture - Final NO GROWTH AFTER 5 DAYS INCUBATION 07/24/20 10:32 Urine - Urine Uribe Urine Culture - Final Klebsiella Pneumoniae - Esbl 07/22/20 18:30 Sputum - Endotrachea Suction/Ventilator Gram Stain - Final 07/22/20 18:30 Sputum - Endotrachea Suction/Ventilator Sputum Culture - Final Yeast Like Organism Fungal Isolate: Mold 07/11/20 23:45 Blood - Peripheral Venous Blood Culture - Final NO GROWTH AFTER 5 DAYS INCUBATION 07/11/20 22:00 Sputum - Endotrachea Suction/Ventilator Gram Stain - Final 07/11/20 22:00 Sputum - Endotrachea Suction/Ventilator Sputum Culture - Final Yeast Like Organism 07/11/20 23:45 Urine - Urine - Catheterized Urine Culture - Final Yeast Like Organism Pseudomonas Aeruginosa 07/04/20 17:00 Sputum - Endotrachea Suction/Ventilator Gram Stain - Final 07/04/20 17:00 Sputum - Endotrachea Suction/Ventilator Sputum Culture - Final Yeast Like Organism 07/01/20 15:50 Blood - Peripheral Venous Blood Culture - Final NO GROWTH AFTER 5 DAYS INCUBATION 07/01/20 15:43 Blood - Peripheral Venous Blood Culture - Final NO GROWTH AFTER 5 DAYS INCUBATION 07/01/20 15:50 Urine - Urine Suprapubic Urine Culture - Final Pseudomonas Aeruginosa Escherichia Coli Enterococcus Avium Problem List - Problems (1) Bowel obstruction Code(s): K56.609 - UNSP INTESTNL OBST, UNSP TO PARTIAL VERSUS COMPLETE OBST (2) Hypothermia Code(s): T68.XXXA - HYPOTHERMIA, INITIAL ENCOUNTER (3) Pneumonia Code(s): J18.9 - PNEUMONIA, UNSPECIFIED ORGANISM (4) SBO (small bowel obstruction) Code(s): K56.609 - UNSP INTESTNL OBST, UNSP TO PARTIAL VERSUS COMPLETE OBST (5) Sepsis Code(s): A41.9 - SEPSIS, UNSPECIFIED ORGANISM Qualifiers: Sepsis type: sepsis due to unspecified organism Sepsis acute organ dysfunction status: unspecified Qualified Code(s): A41.9 - Sepsis, unspecified organism (6) UTI (urinary tract infection) Code(s): N39.0 - URINARY TRACT INFECTION, SITE NOT SPECIFIED Qualifiers: Urinary tract infection type: site unspecified Hematuria presence: with hematuria Qualified Code(s): N39.0 - Urinary tract infection, site not specified; R31.9 - Hematuria, unspecified (7) Alcoholic liver damage Code(s): K70.9 - ALCOHOLIC LIVER DISEASE, UNSPECIFIED (8) Cachexia Code(s): R64 - CACHEXIA (9) Lactic acid acidosis Code(s): E87.2 - ACIDOSIS (10) Substance abuse Code(s): F19.10 - OTHER PSYCHOACTIVE SUBSTANCE ABUSE, UNCOMPLICATED Assessment/Plan Acute respiratory failure on MV s/p trach Sepsis/shock on vasopressor PNA, Likely Aspiration Carbapenem resistant UTI SBO resolving Ascites s/p drain placement ETOH/Heroin abuse Failure to thrive Severe malnutrition Vesiculo-intestinal fistula -- Pt alert, afebrile, remains on pressors, MV/trach -- follow up final peritoneal culture -- afebrile, wbc normal -- continue Tigecycline cc: 36 min
--- NOTE | 2020-07-29 18:48 | PN ---
Physical Exam: SUBJECTIVE: Patient seen and examined NAEON. Pt endorsing diffuse upper chest and back pain. Mouthing words Mild tachy 110s. On vasopressin 4 with SBP to 110s. Vent: 14/350/7/60% OBJECTIVE: Vital Signs Period Temp Pulse Resp BP Sys/Campbell Pulse Ox Last 24 Hr 97 F-98.6 F 56-130 14-28 81-110/53-93 100-100 GENERAL: Awake and alert. NAD. Cachectic. Able to converse via mouthing words/writing. HEENT: Normal with no signs of trauma. EOMI. +temporal wasting. Ears normal. Oral secretions present. NECK: Trachea midline, full range of motion, supple. LUNGS: Remains trach to vent. Breath sounds diminished on right basilar, crackles on right base, no wheezes, no accessory muscle use. HEART: RRR, S1, S2 without murmur, rub or gallop. ABDOMEN: Thin, soft, NT/ND. Pigtail catheter in Right abd draining clear yellow ascitic fluid into collection bag, dressing c/d/i. GI: Rectal tube in place with dark hunt fecal matter : Uribe in place draining clear yellow urine EXTREMITIES: 2+ pulses, warm, well-perfused, no edema. NEUROLOGICAL: Cranial nerves II through XII grossly intact, gait not observed. PSYCH: Normal mood, normal affect. SKIN: Warm, dry, normal turgor, sacral ulcer (unstageable), peritoneal ulcer Laboratory Results - last 24 hr 07/29/20 07/29/20 07/29/20 01:50 05:00 05:00 WBC 7.6 RBC 2.58 L Hgb 7.8 L Hct 22.7 L MCV 87.7 MCH 30.0 MCHC 34.2 RDW 19.3 H Plt Count 287 MPV 8.2 Absolute Neuts (auto) 6.7 Neutrophils % 87.1 H Lymphocytes % 7.0 L D Monocytes % 5.2 Eosinophils % 0.6 Basophils % 0.1 Nucleated RBC % 0 PT with INR INR PTT (Actin FS) Sodium 131 L Potassium 4.1 Chloride 101 Carbon Dioxide 24 Anion Gap 7 L BUN 18.0 Creatinine < 0.2 L Est GFR (CKD-EPI)AfAm 196.46 Est GFR (CKD-EPI)NonAf 169.51 POC Glucometer 141 Random Glucose 141 H Calcium 6.1 L* Phosphorus 1.8 L Magnesium 1.6 L Total Bilirubin 0.4 AST 33 ALT 32 Alkaline Phosphatase 385 H Total Protein 3.7 L Albumin 1.6 L 07/29/20 07/29/20 07/29/20 05:00 06:20 11:14 WBC RBC Hgb Hct MCV MCH MCHC RDW Plt Count MPV Absolute Neuts (auto) Neutrophils % Lymphocytes % Monocytes % Eosinophils % Basophils % Nucleated RBC % PT with INR 20.70 H INR 1.74 H PTT (Actin FS) 40.3 H Sodium Potassium Chloride Carbon Dioxide Anion Gap BUN Creatinine Est GFR (CKD-EPI)AfAm Est GFR (CKD-EPI)NonAf POC Glucometer 153 127 Random Glucose Calcium Phosphorus Magnesium Total Bilirubin AST ALT Alkaline Phosphatase Total Protein Albumin Active Medications Generic Name Dose Route Start Last Admin Trade Name Freq PRN Reason Stop Dose Admin Acetaminophen 500 mg 07/28/20 21:45 07/29/20 17:29 Tylenol - PO 500 mg Q6H PRN Administration PAIN LEVEL 1-5 Ascorbic Acid 500 mg 07/27/20 13:00 07/29/20 09:13 Vitamin C - PO 500 mg DAILY RAUL Administration Banana Based Medical Food 1 packet 07/10/20 22:00 07/29/20 13:15 Banatrol Plus Powder Packet GT 1 packet TID RAUL Administration Dextrose 12.5 gm 07/08/20 07:08 07/27/20 22:02 D50w (Vial) - IVPUSH 12.5 gm PRN PRN Administration HYPOGLYCEMIA Folic Acid 1 mg 07/06/20 10:00 07/29/20 09:13 Folic Acid - NGT 1 mg DAILY RAUL Administration Heparin Sodium (Porcine) 5,000 unit 07/20/20 10:00 07/29/20 09:15 Heparin - SQ 5,000 unit BID RAUL Administration Hydromorphone HCl 1 mg 07/26/20 13:39 07/29/20 16:05 Dilaudid Vial - IVPUSH 1 mg Q3H PRN Administration PAIN LEVEL 7 - 10 Dexmedetomidine/Sodium Chloride 400 mcg in 100 mls @ 1.542 mls/hr 07/25/20 11:15 07/29/20 13:08 Precedex 400 Mcg/100 Ml Inject IVPB 0.7 mcg/kg/hr TITR RAUL 5.398 mls/hr Administration 0.2 MCG/KG/HR Vasopressin 40 units/ Sodium 100 mls @ 5 mls/hr 07/25/20 16:30 07/29/20 07:14 Chloride IVPB 5 units/hr ASDIR RAUL 12.5 mls/hr Administration Protocol 2 UNITS/HR Tigecycline 50 mg/ Dextrose 100 mls @ 100 mls/hr 07/28/20 10:00 07/29/20 09:12 IVPB 100 mls/hr BID RAUL Administration Protocol Dextrose/Lactated Ringer's 1,000 mls @ 42 mls/hr 07/27/20 18:15 07/28/20 18:19 D5-Lr - IV 42 mls/hr ASDIR RAUL Administration Lidocaine HCl 1 applic 07/25/20 21:50 07/29/20 09:30 Xylocaine 5% Top. Ointment TP Not Given DAILY RAUL Multi-Ingredient Ointment 1 applic 07/19/20 13:30 07/29/20 09:16 Zinc Oxide TP 1 applic DAILY RAUL Administration Multivitamins/Minerals 15 ml 07/06/20 11:45 07/29/20 09:29 Certavite-Antioxidant Liquid NGT 15 ml DAILY RAUL Administration Potassium Chloride 40 meq 07/17/20 12:30 07/29/20 09:13 Potassium Chloride Oral Liquid PO 40 meq DAILY RAUL Administration Potassium Phos/Sodium Phos 1 packet 07/09/20 14:00 07/29/20 13:15 Phos-Nak Packet - PO 1 packet TID RAUL Administration Thiamine HCl 100 mg 07/11/20 12:45 07/29/20 09:11 Vitamin B1 Injection - IVPB 100 mg DAILY RAUL Administration ASSESSMENT/PLAN: 35 yo female with PMH of malnutrition (? anorexia vs. bulimia), cirrhosis (2/2 alcohol abuse), heroin abuse in ICU with sepsis and acute hypoxic respiratory failure, now s/p trach, sp abdominal peritoneal drain. Pt is awaiting PEG Neuro -Alert, responsive, able to communicate with blinking and writing -Pain management has improved -Dilaudid 1g, q3, Fentanyl 100 mcg IVP -Dexmedetomidine (400 mcg) CV #Septic Shock -Baseline BP with systolic ~80s; close hemodynamic monitoring while pt is on Dilaudid -Currently on Vasopressin 4, titrate accordingly; goal of SBP ~80s, and MAP >65 -IVf, IV abx Respiratory #Acute Hypoxic Respiratory Failure, s/p Tracheostomy #Likely Aspiration Pneumonia -s/p trach on 07/25; maintain SpO2 >90% -Remains hypoxic requiring vent -Vent Setting: RR 14, TV 350, O2 60%, PEEP 7 -Aspiration precautions GI #SBO --resolved #Severe Protein Calorie Malnutrition #Refeeding Syndrome Risk #Ascites --likely 2/2 severe hypoalbuminemia now s/p Peritoneal drain placement #likely no SBP as PMNs are <250 -Seen by surgery; not a candidate for surgical intervention -Perative Tube feeds @ 55, titrate up to 55 -Peritoneal drain placed on 07/27; ascites fluid studies pending -Folic acid 1 mg, Thiamine, Vitamin C -PEG Tube scheduled for 07/30: Will need keep pt NPO after midnight on Thursday night, check coags and give Vit K/FFP as needed for goal INR <1.5, hold heparin. PO contrast prep to be administered prior to procedure. Turn off TF on night prior to procedure and cont D5-LR to prevent hypoglycemia. Renal #Hyponatremia #Hypokalemia #Hypomagnesemia #Hypophosphatemia #Hypoalbuminemia; 2/2 severe malnutrition -Mg, Phosph; repleted -Cont to trend daily; replete PRN -Renal following ID #Septic Shock; multifactorial 2/2 UTI and likely Aspiration pneumonia #Likely Aspiration Pneumonia -UCx +ESBL Klebsiella pneumo, carbapenem-resistent -S/p Vanc/Zosyn/Meropenem; currently on Tigecycline 50 mg IV BID (Day 3) -ID following Heme #Elevated INR #Anemia/Thrombocytopenia -s/p 2U FFP, Vit K x3 -check coags daily --fu INR @ 0300, prior to planned PEG on 07/30/20 Psych #Hx of Alcohol/Heroin Abuse -Drug cessation counseling Derm #Multiple Sacral Ulcers -Daily wound care, air mattress -Off-loading to all bony areas (heels, ankles, hips and tailbone) with Allevyn/Optifoam Prophylaxis DVT: SQH - hold after 07/29 after midnight, for PEG tube placement on 07/30 FEN -D5-LR -recheck lytes in AM (Mg, Phos repleted) -TF Perative, which will be held at 07/29 evening prior to PEG on 07/30 LTD Central Line (R IJ) - 07/24 Trach - 07/25 Pigtail catheter (R abd) - 07/27 Rectal tube Uribe Dispo -Cont to monitor in ICU Visit type - Emergency Visit Emergency Visit: No - New Patient This patient is new to me today: Yes Date on this admission: 07/29/20 - Critical Care Critical Care patient: Yes Total Critical Care Time (in minutes): 35 Critical Care Statement: The care of this patient involved high complexity decision making to prevent further life threatening deterioration of the patient's condition and/or to evaluate & treat vital organ system(s) failure or risk of failure. ATTENDING PHYSICIAN STATEMENT I saw and evaluated the patient. I reviewed the resident's note and discussed the case with the resident. I agree with the resident's findings and plan as documented. SUBJECTIVE: OBJECTIVE: ASSESSMENT AND PLAN:
[2020-07-29] MEDS: DEXTROSE 5%-LACTATED RINGERS 1,000 ML IV SCH (19:02)
--- NOTE | 2020-07-29 22:20 | PN ---
Progress Note, Physician History of Present Illness: Pt awake - Current Medication List Current Medications: Active Medications Acetaminophen (Tylenol -) 500 mg PO Q6H PRN PRN Reason: PAIN LEVEL 1-5 Last Admin: 07/29/20 17:29 Dose: 500 mg Documented by: Ascorbic Acid (Vitamin C -) 500 mg PO DAILY [facility] Last Admin: 07/29/20 09:13 Dose: 500 mg Documented by: Banana Based Medical Food (Banatrol Plus Powder Packet) 1 packet GT TID [facility] Last Admin: 07/29/20 21:49 Dose: 1 packet Documented by: Dextrose (D50w (Vial) -) 12.5 gm IVPUSH PRN PRN PRN Reason: HYPOGLYCEMIA Last Admin: 07/27/20 22:02 Dose: 12.5 gm Documented by: Folic Acid (Folic Acid -) 1 mg NGT DAILY [facility] Last Admin: 07/29/20 09:13 Dose: 1 mg Documented by: Heparin Sodium (Porcine) (Heparin -) 5,000 unit SQ BID [facility] Last Admin: 07/29/20 09:15 Dose: 5,000 unit Documented by: Hydromorphone HCl (Dilaudid Vial -) 1 mg IVPUSH Q3H PRN PRN Reason: PAIN LEVEL 7 - 10 Last Admin: 07/29/20 21:50 Dose: 1 mg Documented by: Dexmedetomidine/Sodium Chloride (Precedex 400 Mcg/100 Ml Inject) 400 mcg in 100 mls @ 1.542 mls/hr IVPB TITR [facility] Last Admin: 07/29/20 13:08 Dose: 0.7 mcg/kg/hr, 5.398 mls/hr Documented by: Vasopressin 40 units/ Sodium (Chloride) 100 mls @ 5 mls/hr IVPB ASDIR [facility]; Protocol Last Admin: 07/29/20 19:00 Dose: Not Given Documented by: Tigecycline 50 mg/ Dextrose 100 mls @ 100 mls/hr IVPB BID [facility]; Protocol Last Admin: 07/29/20 21:50 Dose: 100 mls/hr Documented by: Dextrose/Lactated Ringer's (D5-Lr -) 1,000 mls @ 42 mls/hr IV ASDIR [facility] Last Admin: 07/29/20 19:02 Dose: 42 mls/hr Documented by: Lidocaine HCl (Xylocaine 5% Top. Ointment) 1 applic TP DAILY [facility] Last Admin: 07/29/20 09:30 Dose: Not Given Documented by: Multi-Ingredient Ointment (Zinc Oxide) 1 applic TP DAILY [facility] Last Admin: 07/29/20 09:16 Dose: 1 applic Documented by: Multivitamins/Minerals (Certavite-Antioxidant Liquid) 15 ml NGT DAILY [facility] Last Admin: 07/29/20 09:29 Dose: 15 ml Documented by: Potassium Chloride (Potassium Chloride Oral Liquid) 40 meq PO DAILY [facility] Last Admin: 07/29/20 09:13 Dose: 40 meq Documented by: Potassium Phos/Sodium Phos (Phos-Nak Packet -) 1 packet PO TID [facility] Last Admin: 07/29/20 21:49 Dose: 1 packet Documented by: Thiamine HCl (Vitamin B1 Injection -) 100 mg IVPB DAILY [facility] Last Admin: 07/29/20 09:11 Dose: 100 mg Documented by: - Objective Vital Signs: Vital Signs Temperature 98.6 F 07/29/20 16:13 Pulse Rate 60 07/29/20 20:00 Respiratory Rate 18 07/29/20 20:01 Blood Pressure 110/68 07/29/20 20:00 O2 Sat by Pulse Oximetry (%) 100 07/29/20 20:01 Constitutional: Yes: Cachectic Neck: Yes: Other ((+) Tracheostomy) Cardiovascular: Yes: Tachycardia Respiratory: Yes: Diminished Gastrointestinal: Yes: WNL, Normal Bowel Sounds, Soft Labs: CBC, BMP 07/29/20 05:00 07/29/20 05:00 INR, PTT INR 1.74 (0.83-1.09) H 07/29/20 05:00 Fibrinogen 344.0 mg/dL (238-498) 07/21/20 06:00 Problem List - Problems (1) Respiratory failure Assessment/Plan: Acute on chronic respiratory failure Multifactorial RLL infiltrates ?Asp pneumonia Cont IV Zosyn S/P tracheostomy Code(s): J96.90 - RESPIRATORY FAILURE, UNSP, UNSP W HYPOXIA OR HYPERCAPNIA (2) Sepsis Assessment/Plan: Lactic acidosis Cont IVF Cont IV Tigacil Pt on pressors UTI vs Aspiration pneumonia Blood culture/urine culture negative to date Repeat CXR not much change Code(s): A41.9 - SEPSIS, UNSPECIFIED ORGANISM Qualifiers: Sepsis type: sepsis due to unspecified organism Sepsis acute organ dysfunction status: unspecified Qualified Code(s): A41.9 - Sepsis, unspecified organism (3) Anemia Code(s): D64.9 - ANEMIA, UNSPECIFIED (4) At risk for electrolyte imbalance Code(s): Z91.89 - OT PERSONAL RISK FACTORS, NOT ELSEWHERE CLASSIFIED (5) SBO (small bowel obstruction) Code(s): K56.609 - UNSP INTESTNL OBST, UNSP TO PARTIAL VERSUS COMPLETE OBST (6) Liver cirrhosis, alcoholic Code(s): K70.30 - ALCOHOLIC CIRRHOSIS OF LIVER WITHOUT ASCITES (7) Hypoalbuminemia Code(s): E88.09 - OT DISORDERS OF PLASMA-PROTEIN METABOLISM, NEC (8) Substance abuse Code(s): F19.10 - OTHER PSYCHOACTIVE SUBSTANCE ABUSE, UNCOMPLICATED (9) Cachexia Code(s): R64 - CACHEXIA (10) Severe malnutrition Code(s): E43 - UNSPECIFIED SEVERE PROTEIN-CALORIE MALNUTRITION (11) Sacral ulcer Code(s): L98.429 - NON-PRESSURE CHRONIC ULCER OF BACK WITH UNSPECIFIED SEVERITY
[2020-07-30] MEDS: HYDROmorphone HCl 2 MG/ML VIAL IVPUSH PRN ×7 (03:30→21:00)
[2020-07-30] MEDS: NAPH,MB-DB/K PH,MBDB POWDER PACKET PO SCH ×3 (06:06→21:49)
[2020-07-30] MEDS: BANATROL PLUS POWDER PACKET GT SCH ×3 (06:06→21:23)
[2020-07-30 06:37] LABS: HEMATOCRIT 23.3 % (32.4-45.2); HEMOGLOBIN 7.8 GM/dL (10.7-15.3); MCH 29.6 pg (25.7-33.7); MCHC 33.6 g/dl (32.0-36.0); MEAN CELL VOLUME 88.1 fl (80-96); MEAN PLT VOLUME 8.4 fl (7.5-11.1); PLATELET COUNT 146 K/MM3 (134-434); RBC 2.65 M/mm3 (3.60-5.2); RDW 19.2 % (11.6-15.6); WHITE BLOOD COUNT 9.7 K/mm3 (4.0-10.0)
[2020-07-30 06:42] LABS: INR 1.65 (0.83-1.09); PROTHROMBIN TIME (PATIENT) 19.6 SEC (9.7-13.0)
[2020-07-30 07:14] LABS: ANION GAP 5 MMOL/L (8-16); CHLORIDE 98 mmol/L (98-107); CO2 26 mmol/L (21-32); GLUCOSE,RANDOM 77 mg/dL (74-106); MAGNESIUM 1.6 mg/dL (1.8-2.4); PHOSPHOROUS 2.2 mg/dL (2.5-4.9); SODIUM 129 mmol/L (136-145)
[2020-07-30 07:21] LABS: CALCIUM 6.7 mg/dL (8.5-10.1); CREATININE < 0.2 mg/dL (0.55-1.3)
[2020-07-30] MEDS ORDERED: NAPH,MB-DB/K PH,MBDB POWDER PACKET PO ONE (07:38)
[2020-07-30] MEDS ORDERED: MAGNESIUM OXIDE 400 MG TABLET (FP) PO ONE (07:38)
[2020-07-30] MEDS ORDERED: PHYTONADIONE 10 MG/1 ML AMP IVPB ONE (07:43)
[2020-07-30] MEDS ORDERED: MAGNESIUM 1GM/D5W - 1 GM/100 ML IVPB IVPB ONE (08:34)
[2020-07-30] MEDS ORDERED: SODIUM PHOSPHATE - 10 MM in DEXTROSE 5%-WATER - 250 ML IVPB ONE (08:34)
[2020-07-30] MEDS: POTASSIUM CHLORIDE ORAL LIQUID 20 MEQ/15 ML PO SCH (09:04)
[2020-07-30] MEDS: FOLIC ACID 1 MG TABLET (FP) NGT SCH (09:04)
[2020-07-30] MEDS: ASCORBIC ACID 500 MG TABLET (FP) PO SCH (09:04)
[2020-07-30] MEDS: MULTIVIT-MINERALS ORAL LIQUID NGT SCH (09:05)
[2020-07-30] MEDS: THIAMINE HCL 200 MG/2 ML VIAL IVPB SCH (09:05)
[2020-07-30] MEDS: LIDOCAINE HCL 5% TOP OINTMENT 50 GM TUBE TP SCH (10:34)
[2020-07-30] MEDS: ZINC OXIDE 20% TOPICAL OINTMENT 30 GM TUBE TP SCH (10:34)
--- NOTE | 2020-07-30 10:45 | PN ---
Teaching Attending Note Name of Resident: Yadira Hamilton ATTENDING PHYSICIAN STATEMENT I saw and evaluated the patient. I reviewed the resident's note and discussed the case with the resident. I agree with the resident's findings and plan as documented. SUBJECTIVE: Pt seen and examined in the ICU. Vented, awake. Still c/o pain all over. Remains on vasopressin gtt. OBJECTIVE: Vital Signs Period Temp Pulse Resp BP Sys/Campbell Pulse Ox Last 24 Hr 97.2 F-98.6 F 52-84 14-20 80-112/54-84 100-100 Intake & Output 07/27/20 07/28/20 07/29/20 07/30/20 23:59 23:59 23:59 23:59 Intake Total 2985 3360 3993.8 1295 Output Total 2740 4080 3700 1100 Balance 245 -720 293.8 195 Weight 38.7 kg 38.7 kg 38.7 kg Gen: intubated, sedated, cachectic Heart: RRR Lung: scattered rhonchi Abd: soft, nontender, +ascites Ext: no edema CBC, BMP 07/30/20 05:30 07/30/20 05:30 Active Medications Acetaminophen (Tylenol -) 500 mg PO Q6H PRN PRN Reason: PAIN LEVEL 1-5 Last Admin: 07/29/20 17:29 Dose: 500 mg Documented by: Ascorbic Acid (Vitamin C -) 500 mg PO DAILY [facility] Last Admin: 07/30/20 09:04 Dose: 500 mg Documented by: Banana Based Medical Food (Banatrol Plus Powder Packet) 1 packet GT TID [facility] Last Admin: 07/30/20 06:06 Dose: Not Given Documented by: Dextrose (D50w (Vial) -) 12.5 gm IVPUSH PRN PRN PRN Reason: HYPOGLYCEMIA Last Admin: 07/27/20 22:02 Dose: 12.5 gm Documented by: Folic Acid (Folic Acid -) 1 mg NGT DAILY [facility] Last Admin: 07/30/20 09:04 Dose: 1 mg Documented by: Heparin Sodium (Porcine) (Heparin -) 5,000 unit SQ BID [facility] Last Admin: 07/29/20 09:15 Dose: 5,000 unit Documented by: Hydromorphone HCl (Dilaudid Vial -) 1 mg IVPUSH Q3H PRN PRN Reason: PAIN LEVEL 7 - 10 Last Admin: 07/30/20 06:04 Dose: 1 mg Documented by: Dexmedetomidine/Sodium Chloride (Precedex 400 Mcg/100 Ml Inject) 400 mcg in 100 mls @ 1.542 mls/hr IVPB TITR [facility] Last Admin: 07/29/20 13:08 Dose: 0.7 mcg/kg/hr, 5.398 mls/hr Documented by: Vasopressin 40 units/ Sodium (Chloride) 100 mls @ 5 mls/hr IVPB ASDIR [facility]; Protocol Last Admin: 07/29/20 19:00 Dose: Not Given Documented by: Tigecycline 50 mg/ Dextrose 100 mls @ 100 mls/hr IVPB BID [facility]; Protocol Last Admin: 07/29/20 21:50 Dose: 100 mls/hr Documented by: Dextrose/Lactated Ringer's (D5-Lr -) 1,000 mls @ 42 mls/hr IV ASDIR [facility] Last Admin: 07/29/20 19:02 Dose: 42 mls/hr Documented by: Sodium Phosphate 10 mm/ (Dextrose) 253.3333 mls @ 62.5 mls/hr IVPB ONCE ONE Stop: 07/30/20 12:37 Last Admin: 07/30/20 10:10 Dose: 62.5 mls/hr Documented by: Lidocaine HCl (Xylocaine 5% Top. Ointment) 1 applic TP DAILY [facility] Last Admin: 07/30/20 10:34 Dose: 1 applic Documented by: Multi-Ingredient Ointment (Zinc Oxide) 1 applic TP DAILY [facility] Last Admin: 07/30/20 10:34 Dose: 1 applic Documented by: Multivitamins/Minerals (Certavite-Antioxidant Liquid) 15 ml NGT DAILY [facility] Last Admin: 07/30/20 09:05 Dose: 15 ml Documented by: Potassium Chloride (Potassium Chloride Oral Liquid) 40 meq PO DAILY [facility] Last Admin: 07/30/20 09:04 Dose: 40 meq Documented by: Potassium Phos/Sodium Phos (Phos-Nak Packet -) 1 packet PO TID [facility] Last Admin: 07/30/20 06:06 Dose: Not Given Documented by: Thiamine HCl (Vitamin B1 Injection -) 100 mg IVPB DAILY [facility] Last Admin: 07/30/20 09:05 Dose: 100 mg Documented by: ASSESSMENT AND PLAN: Acute Hypoxic Respiratory Failure s/p Tracheostomy Pneumonia likely Aspiration UTI Sepsis Hyponatremia Small Bowel Obstruction Ascites s/p Peritoneal drain placement Alcohol/Heroin Abuse Anemia/Thrombocytopenia Failure to Thrive Severe Protein Calorie Malnutrition Refeeding Syndrome - pain control - monitor urine output, creatinine - replete lytes - continue antibiotics - titrate pressors to maintain MAP >65 - titrate FiO2 to keep SpO2 >90% - spontaneous breathing trials as tolerated, placed on SIMV - enteral feeds, will need PEG placement - DVT/GI prophylaxis - continue ICU monitoring critical care time spent in reviewing chart, evaluating patient and formulating plan 35 min
--- NOTE | 2020-07-30 11:02 | PN ---
Physical Exam: SUBJECTIVE: Patient seen and examined bedside. Awake, alert, writing and mouthing words to communicate. Patient in moderate amount of pain. No events overnight. OBJECTIVE: Vital Signs Temp Pulse Resp BP Pulse Ox 98.2 F 81 20 90/69 100 07/30/20 06:00 07/30/20 08:00 07/30/20 08:00 07/30/20 08:00 07/30/20 10:00 GENERAL: The patient is awake, alert, and fully oriented HEAD: temporal wasting EYES: PERRL, EOMI. ENT: moist mucous membranes. NECK: Trach placed LUNGS: CTA BL HEART: RRR ABDOMEN: very cachectic, pig tail cath in place on righ lower abdomen. mistry in place, rectal flexi seal in place EXTREMITIES: no edema, extreme muscle wasting NEUROLOGICAL: Cranial nerves II through XII grossly intact PSYCH: Normal mood, normal affect. SKIN: Sacral ulcer stage 4. Skin breakdown in perianal area. Intake & Output 07/27/20 07/28/20 07/29/20 07/30/20 23:59 23:59 23:59 23:59 Intake Total 2985 3360 3993.8 1295 Output Total 2740 4080 3700 1100 Balance 245 -720 293.8 195 Weight 85 lb 5.102 oz 85 lb 5.102 oz 85 lb 5.102 oz Laboratory Results - last 24 hr 07/29/20 07/30/20 07/30/20 11:14 00:20 05:30 WBC 9.7 RBC 2.65 L Hgb 7.8 L Hct 23.3 L MCV 88.1 MCH 29.6 MCHC 33.6 RDW 19.2 H Plt Count 146 D MPV 8.4 PT with INR INR Sodium Potassium Chloride Carbon Dioxide Anion Gap BUN Creatinine Est GFR (CKD-EPI)AfAm Est GFR (CKD-EPI)NonAf POC Glucometer 127 152 Random Glucose Calcium Phosphorus Magnesium 07/30/20 07/30/20 05:30 05:30 WBC RBC Hgb Hct MCV MCH MCHC RDW Plt Count MPV PT with INR 19.60 H INR 1.65 H Sodium 129 L Potassium 4.0 Chloride 98 Carbon Dioxide 26 Anion Gap 5 L BUN 19.0 H Creatinine < 0.2 L Est GFR (CKD-EPI)AfAm 196.46 Est GFR (CKD-EPI)NonAf 169.51 POC Glucometer Random Glucose 77 Calcium 6.7 L* Phosphorus 2.2 L Magnesium 1.6 L Active Medications Generic Name Dose Route Start Last Admin Trade Name Freq PRN Reason Stop Dose Admin Acetaminophen 500 mg 07/28/20 21:45 07/29/20 17:29 Tylenol - PO 500 mg Q6H PRN Administration PAIN LEVEL 1-5 Ascorbic Acid 500 mg 07/27/20 13:00 07/30/20 09:04 Vitamin C - PO 500 mg DAILY [facility]UL Administration Banana Based Medical Food 1 packet 07/10/20 22:00 07/30/20 06:06 Banatrol Plus Powder Packet GT Not Given TID RAUL Dextrose 12.5 gm 07/08/20 07:08 07/27/20 22:02 D50w (Vial) - IVPUSH 12.5 gm PRN PRN Administration HYPOGLYCEMIA Folic Acid 1 mg 07/06/20 10:00 07/30/20 09:04 Folic Acid - NGT 1 mg DAILY [facility] Administration Heparin Sodium (Porcine) 5,000 unit 07/20/20 10:00 07/29/20 09:15 Heparin - SQ 5,000 unit BID [facility] Administration Hydromorphone HCl 1 mg 07/26/20 13:39 07/30/20 06:04 Dilaudid Vial - IVPUSH 1 mg Q3H PRN Administration PAIN LEVEL 7 - 10 Dexmedetomidine/Sodium Chloride 400 mcg in 100 mls @ 1.542 mls/hr 07/25/20 11:15 07/29/20 13:08 Precedex 400 Mcg/100 Ml Inject IVPB 0.7 mcg/kg/hr TITR [facility] 5.398 mls/hr Administration 0.2 MCG/KG/HR Vasopressin 40 units/ Sodium 100 mls @ 5 mls/hr 07/25/20 16:30 07/29/20 19:00 Chloride IVPB Not Given ASDIR [facility] Protocol 2 UNITS/HR Tigecycline 50 mg/ Dextrose 100 mls @ 100 mls/hr 07/28/20 10:00 07/29/20 21:50 IVPB 100 mls/hr BID [facility]UL Administration Protocol Dextrose/Lactated Ringer's 1,000 mls @ 42 mls/hr 07/27/20 18:15 07/29/20 19:02 D5-Lr - IV 42 mls/hr ASDIR [facility] Administration Sodium Phosphate 10 mm/ 253.3333 mls @ 62.5 mls/hr 07/30/20 08:34 07/30/20 10:10 Dextrose IVPB 07/30/20 12:37 62.5 mls/hr ONCE ONE Administration Lidocaine HCl 1 applic 07/25/20 21:50 07/30/20 10:34 Xylocaine 5% Top. Ointment TP 1 applic DAILY [facility] Administration Multi-Ingredient Ointment 1 applic 07/19/20 13:30 07/30/20 10:34 Zinc Oxide TP 1 applic DAILY [facility] Administration Multivitamins/Minerals 15 ml 07/06/20 11:45 07/30/20 09:05 Certavite-Antioxidant Liquid NGT 15 ml DAILY [facility] Administration Potassium Chloride 40 meq 07/17/20 12:30 07/30/20 09:04 Potassium Chloride Oral Liquid PO 40 meq DAILY [facility] Administration Potassium Phos/Sodium Phos 1 packet 07/09/20 14:00 07/30/20 06:06 Phos-Nak Packet - PO Not Given TID [facility] Thiamine HCl 100 mg 07/11/20 12:45 07/30/20 09:05 Vitamin B1 Injection - IVPB 100 mg DAILY [facility] Administration ASSESSMENT/PLAN: 35 yo female with PMH of malnutrition 2/2 bulimia and polysubstance use disorder , cirrhosis, & heroin abuse, in ICU with sepsis and acute hypoxic respiratory failure, now s/p trach, sp abdominal peritoneal drain. Peg placement pending. Neuro - Alert, responsive, able to communicate with writing and mouthing words - Dilaudid 1g, q3, Fentanyl 100 mcg IVP - Dexmedetomidine (400 mcg) CV - Septic Shock 2/2 UTI - Baseline BP with systolic ~80s; close hemodynamic monitoring while pt is on Dilaudid - Currently on Vasopressin 5, titrate down as tolerated Respiratory - Acute Hypoxic Respiratory Failure, s/p Tracheostomy - Likely Aspiration Pneumonia - s/p trach on 07/25; maintain SpO2 >90% trials of cpap with pressure and breath supports today - Aspiration precautions GI - SBO --resolved - Refeeding Syndrome Risk - Ascites: likely 2/2 severe hypoalbuminemia now s/p Peritoneal drain placement likely no SBP as PMNs are <250 - Peritoneal drain placed on 07/27; ascites fluid studies pending - PEG Tube scheduled for 07/30 delayed b/c barium prep and KUB not done night before - mistry in place - UTI - Azo today for urethral burning, may discolor urine Renal - Hypoalbuminemia; 2/2 severe malnutrition - Renal following (Dr. Chavez) - s/p 40 IV lasix yesterday ID - Septic Shock; multifactorial 2/2 UTI and likely Aspiration pneumonia - Likely Aspiration Pneumonia - Urine Cx +ESBL Klebsiella pneumo, carbapenem-resistent - S/p Vanc/Zosyn/Meropenem - currently on Tigecycline (Day 3) - ID following (Dr. Martines) Heme - Elevated INR, 1.63 today >> 1 unit FFP and vitamin K today for PEG - Anemia/Thrombocytopenia, most likely 2/2 liver cirrhosis - check coags daily Psych - Hx of Alcohol/Heroin Abuse - Drug cessation counseling - bulimia/eating disorder Derm - Multiple Sacral Ulcers (stage 4) - Daily wound care, air mattress - Off-loading to all bony areas (heels, ankles, hips and tailbone) with Allevyn/Optifoam Prophylaxis - DVT ppx: BID SQH because of low bodyweight hold tonight for PEG placement 07/31 FEN - D5-LR - check and repleat electrolytes as needed - NPO for peg placement/ otherwise, Perative Tube feeds titrate up to 55 LTD - Central Line (R IJ) - 07/24 - Trach - 07/25 - Pigtail catheter (07/27) drained 2500 cc over last 24hrs - Rectal tube - Mistry Dispo -Cont to monitor in ICU Visit type - Emergency Visit Emergency Visit: Yes ED Registration Date: 07/01/20 Care time: The patient presented to the Emergency Department on the above date and was hospitalized for further evaluation of their emergent condition. - New Patient This patient is new to me today: No - Critical Care Critical Care patient: Yes Total Critical Care Time (in minutes): 36 Critical Care Statement: The care of this patient involved high complexity decision making to prevent further life threatening deterioration of the patien t's condition and/or to evaluate & treat vital organ system(s) failure or risk of failure. - Discharge Referral Referred to [facility] No ATTENDING PHYSICIAN STATEMENT I saw and evaluated the patient. I reviewed the resident's note and discussed the case with the resident. I agree with the resident's findings and plan as documented. SUBJECTIVE: OBJECTIVE: ASSESSMENT AND PLAN:
[2020-07-30] MEDS: DEXMEDETOMIDINE IN 0.9 % NACL 400 MCG/100 ML VIAL IVPB SCH ×2 (11:24→18:22)
[2020-07-30] MEDS: TIGECYCLINE 50 MG in DEXTROSE 5%-WATER - 100 ML IVPB SCH ×2 (11:24→21:24)
[2020-07-30] MEDS ORDERED: PHENAZOPYRIDINE HCL 100 MG TABLET (FP) PO ONE (11:37)
[2020-07-30] MEDS: HEPARIN NA (PORCINE) 5,000 UNITS/ML 1ML VIAL SQ SCH (13:00)
--- NOTE | 2020-07-30 14:49 | PN ---
Progress Note, Physician History of Present Illness: stable no new issues - Current Medication List Current Medications: Active Medications Acetaminophen (Tylenol -) 500 mg PO Q6H PRN PRN Reason: PAIN LEVEL 1-5 Last Admin: 07/29/20 17:29 Dose: 500 mg Documented by: Ascorbic Acid (Vitamin C -) 500 mg PO DAILY [facility] Last Admin: 07/30/20 09:04 Dose: 500 mg Documented by: Banana Based Medical Food (Banatrol Plus Powder Packet) 1 packet GT TID [facility] Last Admin: 07/30/20 06:06 Dose: Not Given Documented by: Dextrose (D50w (Vial) -) 12.5 gm IVPUSH PRN PRN PRN Reason: HYPOGLYCEMIA Last Admin: 07/27/20 22:02 Dose: 12.5 gm Documented by: Folic Acid (Folic Acid -) 1 mg NGT DAILY [facility] Last Admin: 07/30/20 09:04 Dose: 1 mg Documented by: Heparin Sodium (Porcine) (Heparin -) 5,000 unit SQ BID [facility] Last Admin: 07/29/20 09:15 Dose: 5,000 unit Documented by: Hydromorphone HCl (Dilaudid Vial -) 1 mg IVPUSH Q3H PRN PRN Reason: PAIN LEVEL 7 - 10 Last Admin: 07/30/20 06:04 Dose: 1 mg Documented by: Dexmedetomidine/Sodium Chloride (Precedex 400 Mcg/100 Ml Inject) 400 mcg in 100 mls @ 1.542 mls/hr IVPB TITR [facility] Last Admin: 07/30/20 11:24 Dose: Not Given Documented by: Vasopressin 40 units/ Sodium (Chloride) 100 mls @ 5 mls/hr IVPB ASDIR [facility]; Protocol Last Admin: 07/29/20 19:00 Dose: Not Given Documented by: Tigecycline 50 mg/ Dextrose 100 mls @ 100 mls/hr IVPB BID [facility]; Protocol Last Admin: 07/30/20 11:24 Dose: 100 mls/hr Documented by: Dextrose/Lactated Ringer's (D5-Lr -) 1,000 mls @ 42 mls/hr IV ASDIR [facility] Last Admin: 07/29/20 19:02 Dose: 42 mls/hr Documented by: Lidocaine HCl (Xylocaine 5% Top. Ointment) 1 applic TP DAILY [facility] Last Admin: 07/30/20 10:34 Dose: 1 applic Documented by: Multi-Ingredient Ointment (Zinc Oxide) 1 applic TP DAILY [facility] Last Admin: 07/30/20 10:34 Dose: 1 applic Documented by: Multivitamins/Minerals (Certavite-Antioxidant Liquid) 15 ml NGT DAILY [facility] Last Admin: 07/30/20 09:05 Dose: 15 ml Documented by: Potassium Chloride (Potassium Chloride Oral Liquid) 40 meq PO DAILY [facility] Last Admin: 07/30/20 09:04 Dose: 40 meq Documented by: Potassium Phos/Sodium Phos (Phos-Nak Packet -) 1 packet PO TID [facility] Last Admin: 07/30/20 06:06 Dose: Not Given Documented by: Thiamine HCl (Vitamin B1 Injection -) 100 mg IVPB DAILY [facility] Last Admin: 07/30/20 09:05 Dose: 100 mg Documented by: - Objective Vital Signs: Vital Signs Temperature 98.2 F 07/30/20 10:00 Pulse Rate 55 L 07/30/20 12:00 Respiratory Rate 17 07/30/20 12:00 Blood Pressure 82/65 L 07/30/20 12:00 O2 Sat by Pulse Oximetry (%) 99 07/30/20 11:41 Constitutional: Yes: No Distress, Calm, Other (failure to thrive) Cardiovascular: Yes: S1, S2 Respiratory: Yes: Regular, CTA Bilaterally Gastrointestinal: Yes: Soft Musculoskeletal: Yes: WNL Extremities: Yes: WNL Neurological: Yes: Alert Psychiatric: Yes: Alert, Oriented Labs: CBC, BMP 07/30/20 05:30 07/30/20 05:30 INR, PTT INR 1.65 (0.83-1.09) H 07/30/20 05:30 Fibrinogen 344.0 mg/dL (238-498) 07/21/20 06:00 Assessment/Plan Pneumonia likely Aspiration UTI Sepsis Hyponatremia SBO resolving Alcohol/Heroin Abuse Anemia Failure to Thrive Severe Protein Calorie Malnutrition uti vesico intestinal fistula plan ct abx await for sensitivities close watch nutrition asp precautions rest as per icu plan for peg tube cc 38 min
--- NOTE | 2020-07-30 15:59 | PN ---
Progress Note, Physician History of Present Illness: Pt seen and examined at bedside. She is awake. No great change. - Current Medication List Current Medications: Active Medications Acetaminophen (Tylenol -) 500 mg PO Q6H PRN PRN Reason: PAIN LEVEL 1-5 Last Admin: 07/29/20 17:29 Dose: 500 mg Documented by: Ascorbic Acid (Vitamin C -) 500 mg PO DAILY [facility]UL Last Admin: 07/30/20 09:04 Dose: 500 mg Documented by: Banana Based Medical Food (Banatrol Plus Powder Packet) 1 packet GT TID [facility]UL Last Admin: 07/30/20 15:19 Dose: 1 packet Documented by: Dextrose (D50w (Vial) -) 12.5 gm IVPUSH PRN PRN PRN Reason: HYPOGLYCEMIA Last Admin: 07/27/20 22:02 Dose: 12.5 gm Documented by: Folic Acid (Folic Acid -) 1 mg NGT DAILY [facility] Last Admin: 07/30/20 09:04 Dose: 1 mg Documented by: Heparin Sodium (Porcine) (Heparin -) 5,000 unit SQ BID [facility] Last Admin: 07/30/20 13:00 Dose: 5,000 unit Documented by: Hydromorphone HCl (Dilaudid Vial -) 1 mg IVPUSH Q3H PRN PRN Reason: PAIN LEVEL 7 - 10 Last Admin: 07/30/20 15:17 Dose: 1 mg Documented by: Dexmedetomidine/Sodium Chloride (Precedex 400 Mcg/100 Ml Inject) 400 mcg in 100 mls @ 1.542 mls/hr IVPB TITR [facility]UL Last Admin: 07/30/20 11:24 Dose: Not Given Documented by: Vasopressin 40 units/ Sodium (Chloride) 100 mls @ 5 mls/hr IVPB ASDIR [facility]; Protocol Last Admin: 07/29/20 19:00 Dose: Not Given Documented by: Tigecycline 50 mg/ Dextrose 100 mls @ 100 mls/hr IVPB BID [facility]UL; Protocol Last Admin: 07/30/20 11:24 Dose: 100 mls/hr Documented by: Dextrose/Lactated Ringer's (D5-Lr -) 1,000 mls @ 42 mls/hr IV ASDIR [facility] Last Admin: 07/29/20 19:02 Dose: 42 mls/hr Documented by: Lidocaine HCl (Xylocaine 5% Top. Ointment) 1 applic TP DAILY [facility] Last Admin: 07/30/20 10:34 Dose: 1 applic Documented by: Multi-Ingredient Ointment (Zinc Oxide) 1 applic TP DAILY [facility] Last Admin: 07/30/20 10:34 Dose: 1 applic Documented by: Multivitamins/Minerals (Certavite-Antioxidant Liquid) 15 ml NGT DAILY [facility] Last Admin: 07/30/20 09:05 Dose: 15 ml Documented by: Potassium Chloride (Potassium Chloride Oral Liquid) 40 meq PO DAILY [facility] Last Admin: 07/30/20 09:04 Dose: 40 meq Documented by: Potassium Phos/Sodium Phos (Phos-Nak Packet -) 1 packet PO TID [facility] Last Admin: 07/30/20 15:19 Dose: 1 packet Documented by: Thiamine HCl (Vitamin B1 Injection -) 100 mg IVPB DAILY [facility] Last Admin: 07/30/20 09:05 Dose: 100 mg Documented by: - Objective Vital Signs: Vital Signs Temperature 98.2 F 07/30/20 10:00 Pulse Rate 55 L 07/30/20 12:00 Respiratory Rate 21 H 07/30/20 15:36 Blood Pressure 82/65 L 07/30/20 12:00 O2 Sat by Pulse Oximetry (%) 96 07/30/20 15:36 Constitutional: Yes: Calm Eyes: Yes: Conjunctiva Clear HENT: Yes: Atraumatic Cardiovascular: Yes: S1, S2 Respiratory: Yes: Mechanically Ventilated Gastrointestinal: Yes: Soft Genitourinary: Yes: Uribe Present Musculoskeletal: Yes: Muscle Weakness Edema: No Neurological: Yes: Oriented Labs: CBC, BMP 07/30/20 05:30 07/30/20 05:30 INR, PTT INR 1.65 (0.83-1.09) H 07/30/20 05:30 Fibrinogen 344.0 mg/dL (238-498) 07/21/20 06:00 Problem List - Problems (1) Hypoglycemia Code(s): E16.2 - HYPOGLYCEMIA, UNSPECIFIED (2) Sepsis Code(s): A41.9 - SEPSIS, UNSPECIFIED ORGANISM Qualifiers: Sepsis type: sepsis due to unspecified organism Sepsis acute organ dysfunction status: unspecified Qualified Code(s): A41.9 - Sepsis, unspecified organism (3) Hypoalbuminemia Code(s): E88.09 - OTH DISORDERS OF PLASMA-PROTEIN METABOLISM, NEC (4) Hyponatremia Code(s): E87.1 - HYPO-OSMOLALITY AND HYPONATREMIA Assessment/Plan Current Medications Generic Name Dose Route Start Last Admin Trade Name Freq PRN Reason Stop Dose Admin Acetaminophen 500 mg 07/28/20 21:45 07/29/20 17:29 Tylenol - PO 500 mg Q6H PRN Administration PAIN LEVEL 1-5 Ascorbic Acid 500 mg 07/27/20 13:00 07/30/20 09:04 Vitamin C - PO 500 mg DAILY RAUL Administration Banana Based Medical Food 1 packet 07/10/20 22:00 07/30/20 15:19 Banatrol Plus Powder Packet GT 1 packet TID RAUL Administration Dextrose 12.5 gm 07/08/20 07:08 07/27/20 22:02 D50w (Vial) - IVPUSH 12.5 gm PRN PRN Administration HYPOGLYCEMIA Folic Acid 1 mg 07/06/20 10:00 07/30/20 09:04 Folic Acid - NGT 1 mg DAILY RAUL Administration Heparin Sodium (Porcine) 5,000 unit 07/20/20 10:00 07/30/20 13:00 Heparin - SQ 5,000 unit BID RAUL Administration Hydromorphone HCl 1 mg 07/26/20 13:39 07/30/20 15:17 Dilaudid Vial - IVPUSH 1 mg Q3H PRN Administration PAIN LEVEL 7 - 10 Dexmedetomidine/Sodium Chloride 400 mcg in 100 mls @ 1.542 mls/hr 07/25/20 11:15 07/30/20 11:24 Precedex 400 Mcg/100 Ml Inject IVPB Not Given TITR RAUL 0.2 MCG/KG/HR Vasopressin 40 units/ Sodium 100 mls @ 5 mls/hr 07/25/20 16:30 07/29/20 19:00 Chloride IVPB Not Given ASDIR RAUL Protocol 2 UNITS/HR Tigecycline 50 mg/ Dextrose 100 mls @ 100 mls/hr 07/28/20 10:00 07/30/20 11:24 IVPB 100 mls/hr BID RAUL Administration Protocol Dextrose/Lactated Ringer's 1,000 mls @ 42 mls/hr 07/27/20 18:15 07/29/20 19:02 D5-Lr - IV 42 mls/hr ASDIR RAUL Administration Lidocaine HCl 1 applic 07/25/20 21:50 07/30/20 10:34 Xylocaine 5% Top. Ointment TP 1 applic DAILY [facility]UL Administration Multi-Ingredient Ointment 1 applic 07/19/20 13:30 07/30/20 10:34 Zinc Oxide TP 1 applic DAILY [facility]UL Administration Multivitamins/Minerals 15 ml 07/06/20 11:45 07/30/20 09:05 Certavite-Antioxidant Liquid NGT 15 ml DAILY [facility]UL Administration Potassium Chloride 40 meq 07/17/20 12:30 07/30/20 09:04 Potassium Chloride Oral Liquid PO 40 meq DAILY RAUL Administration Potassium Phos/Sodium Phos 1 packet 07/09/20 14:00 07/30/20 15:19 Phos-Nak Packet - PO 1 packet TID RAUL Administration Thiamine HCl 100 mg 07/11/20 12:45 07/30/20 09:05 Vitamin B1 Injection - IVPB 100 mg DAILY RAUL Administration Impression 1. azotemia 2. hyponatremia 3. hyperkalemia 4. hypotension 5. sepsis 6. sbo 7. uti 8. liver cirrhosis 9. hypoalbuminemia 10. etoh abuse 11. substance abuse 12. psoriasis 13. acute resp failure 14. malnutrition Plan - replace lytes - decrease free water with feeds as sodium is dropping - discussed with ICU team - vent support
[2020-07-30] MEDS: VASOPRESSIN 40 UNITS in SODIUM CHLORIDE 98 ML IVPB SCH (18:21)
[2020-07-30] MEDS: DEXTROSE 5%-LACTATED RINGERS 1,000 ML IV SCH (18:21)
--- NOTE | 2020-07-30 20:01 | PN ---
Progress Note, Physician History of Present Illness: AWAKE - Current Medication List Current Medications: Active Medications Acetaminophen (Tylenol -) 500 mg PO Q6H PRN PRN Reason: PAIN LEVEL 1-5 Last Admin: 07/29/20 17:29 Dose: 500 mg Documented by: Ascorbic Acid (Vitamin C -) 500 mg PO DAILY [facility] Last Admin: 07/30/20 09:04 Dose: 500 mg Documented by: Banana Based Medical Food (Banatrol Plus Powder Packet) 1 packet GT TID [facility] Last Admin: 07/30/20 15:19 Dose: 1 packet Documented by: Dextrose (D50w (Vial) -) 12.5 gm IVPUSH PRN PRN PRN Reason: HYPOGLYCEMIA Last Admin: 07/27/20 22:02 Dose: 12.5 gm Documented by: Folic Acid (Folic Acid -) 1 mg NGT DAILY [facility] Last Admin: 07/30/20 09:04 Dose: 1 mg Documented by: Heparin Sodium (Porcine) (Heparin -) 5,000 unit SQ BID [facility] Last Admin: 07/30/20 13:00 Dose: 5,000 unit Documented by: Hydromorphone HCl (Dilaudid Vial -) 1 mg IVPUSH Q3H PRN PRN Reason: PAIN LEVEL 7 - 10 Last Admin: 07/30/20 18:10 Dose: 1 mg Documented by: Dexmedetomidine/Sodium Chloride (Precedex 400 Mcg/100 Ml Inject) 400 mcg in 100 mls @ 1.542 mls/hr IVPB TITR [facility] Last Admin: 07/30/20 18:22 Dose: 0.7 mcg/kg/hr, 5.398 mls/hr Documented by: Vasopressin 40 units/ Sodium (Chloride) 100 mls @ 5 mls/hr IVPB ASDIR [facility]; Protocol Last Admin: 07/30/20 18:21 Dose: 2 units/hr, 5 mls/hr Documented by: Tigecycline 50 mg/ Dextrose 100 mls @ 100 mls/hr IVPB BID [facility]; Protocol Last Admin: 07/30/20 11:24 Dose: 100 mls/hr Documented by: Dextrose/Lactated Ringer's (D5-Lr -) 1,000 mls @ 42 mls/hr IV ASDIR [facility] Last Admin: 07/30/20 18:21 Dose: 42 mls/hr Documented by: Lidocaine HCl (Xylocaine 5% Top. Ointment) 1 applic TP DAILY [facility] Last Admin: 07/30/20 10:34 Dose: 1 applic Documented by: Multi-Ingredient Ointment (Zinc Oxide) 1 applic TP DAILY [facility] Last Admin: 07/30/20 10:34 Dose: 1 applic Documented by: Multivitamins/Minerals (Certavite-Antioxidant Liquid) 15 ml NGT DAILY [facility] Last Admin: 07/30/20 09:05 Dose: 15 ml Documented by: Potassium Chloride (Potassium Chloride Oral Liquid) 40 meq PO DAILY [facility] Last Admin: 07/30/20 09:04 Dose: 40 meq Documented by: Potassium Phos/Sodium Phos (Phos-Nak Packet -) 1 packet PO TID [facility] Last Admin: 07/30/20 15:19 Dose: 1 packet Documented by: Thiamine HCl (Vitamin B1 Injection -) 100 mg IVPB DAILY [facility] Last Admin: 07/30/20 09:05 Dose: 100 mg Documented by: - Objective Vital Signs: Vital Signs Temperature 97.6 F 07/30/20 18:00 Pulse Rate 63 07/30/20 18:21 Respiratory Rate 20 07/30/20 18:00 Blood Pressure 94/76 07/30/20 18:21 O2 Sat by Pulse Oximetry (%) 96 07/30/20 18:00 Constitutional: Yes: Calm HENT: Yes: Other (trach collar) Cardiovascular: Yes: Regular Rate and Rhythm Respiratory: Yes: Rhonchi, Wheezes Gastrointestinal: Yes: Normal Bowel Sounds Extremities: Yes: WNL Edema: No Neurological: Yes: Other (awake) Labs: CBC, BMP 07/30/20 05:30 07/30/20 05:30 INR, PTT INR 1.65 (0.83-1.09) H 07/30/20 05:30 Fibrinogen 344.0 mg/dL (238-498) 07/21/20 06:00 Problem List - Problems (1) At risk for electrolyte imbalance Assessment/Plan: MONITOR AND REPLACE Code(s): Z91.89 - OTH PERSONAL RISK FACTORS, NOT ELSEWHERE CLASSIFIED (2) SBO (small bowel obstruction) Assessment/Plan: FOR PEG TODAY Code(s): K56.609 - UNSP INTESTNL OBST, UNSP TO PARTIAL VERSUS COMPLETE OBST (3) Sepsis Assessment/Plan: ON IV ABX CXS NOTED wbc wnl Code(s): A41.9 - SEPSIS, UNSPECIFIED ORGANISM Qualifiers: Sepsis type: sepsis due to unspecified organism Sepsis acute organ dysfunction status: unspecified Qualified Code(s): A41.9 - Sepsis, unspecified organism (4) Alcoholic liver damage Code(s): K70.9 - ALCOHOLIC LIVER DISEASE, UNSPECIFIED (5) Hypoalbuminemia Code(s): E88.09 - OTH DISORDERS OF PLASMA-PROTEIN METABOLISM, NEC (6) Hyponatremia Code(s): E87.1 - HYPO-OSMOLALITY AND HYPONATREMIA (7) Liver cirrhosis, alcoholic Code(s): K70.30 - ALCOHOLIC CIRRHOSIS OF LIVER WITHOUT ASCITES (8) Ischemic hepatitis Code(s): K75.9 - INFLAMMATORY LIVER DISEASE, UNSPECIFIED (9) Respiratory failure Assessment/Plan: S/P TRACH Code(s): J96.90 - RESPIRATORY FAILURE, UNSP, UNSP W HYPOXIA OR HYPERCAPNIA (10) UTI (urinary tract infection) Assessment/Plan: SEPSIS..RESOLVING ON IV ABX URINE STILL TURBID Code(s): N39.0 - URINARY TRACT INFECTION, SITE NOT SPECIFIED Qualifiers: Urinary tract infection type: site unspecified Hematuria presence: with hematuria Qualified Code(s): N39.0 - Urinary tract infection, site not specified; R31.9 - Hematuria, unspecified (11) Elevated LFTs Code(s): R79.89 - OTHER SPECIFIED ABNORMAL FINDINGS OF BLOOD CHEMISTRY (12) Hypothermia Assessment/Plan: stable PRN BEAR HUGGER Code(s): T68.XXXA - HYPOTHERMIA, INITIAL ENCOUNTER (13) Skin abrasion Assessment/Plan: AIR MATTRESS helping in healing Code(s): T14.8XXA - OTHER INJURY OF UNSPECIFIED BODY REGION, INITIAL ENCOUNTER (14) Sacral ulcer Code(s): L98.429 - NON-PRESSURE CHRONIC ULCER OF BACK WITH UNSPECIFIED SEVERITY (15) Severe malnutrition Assessment/Plan: for peg placement Code(s): E43 - UNSPECIFIED SEVERE PROTEIN-CALORIE MALNUTRITION Assessment/Plan COVERING FOR DR KELLEN PATEL CC TIME 35 MIN
[2020-07-31] MEDS: HYDROmorphone HCl 2 MG/ML VIAL IVPUSH PRN ×7 (03:04→21:41)
[2020-07-31 04:37] LABS: ALBUMIN 1.7 g/dl (3.4-5.0); ANION GAP 4 MMOL/L (8-16); BILIRUBIN,TOTAL 0.5 mg/dL (0.2-1); BLOOD UREA NITROGEN 18.1 mg/dL (7-18); CHLORIDE 94 mmol/L (98-107); CO2 27 mmol/L (21-32); GLUCOSE,RANDOM 79 mg/dL (74-106); POTASSIUM 4.4 mmol/L (3.5-5.1); SGOT/AST 33 U/L (15-37); SGPT/ALT 34 U/L (13-61); SODIUM 125 mmol/L (136-145); TOT PROT 3.9 g/dl (6.4-8.2)
[2020-07-31 05:33] LABS: HEMATOCRIT 21.6 % (32.4-45.2); HEMOGLOBIN 7.2 GM/dL (10.7-15.3); MCH 29.4 pg (25.7-33.7); MCHC 33.2 g/dl (32.0-36.0); MEAN CELL VOLUME 88.4 fl (80-96); MEAN PLT VOLUME 8.4 fl (7.5-11.1); PLATELET COUNT 238 K/MM3 (134-434); RBC 2.44 M/mm3 (3.60-5.2); RDW 18.8 % (11.6-15.6); WHITE BLOOD COUNT 8.2 K/mm3 (4.0-10.0)
[2020-07-31 05:41] LABS: INR 1.83 (0.83-1.09); PROTHROMBIN TIME (PATIENT) 21.7 SEC (9.7-13.0)
[2020-07-31] MEDS ORDERED: PHYTONADIONE 10 MG/1 ML AMP IVPB ONE (05:45)
[2020-07-31] MEDS: BANATROL PLUS POWDER PACKET GT SCH ×3 (05:55→21:14)
[2020-07-31] MEDS: NAPH,MB-DB/K PH,MBDB POWDER PACKET PO SCH ×3 (05:55→21:14)
[2020-07-31 06:12] LABS: MAGNESIUM 1.6 mg/dL (1.8-2.4); PHOSPHOROUS 2.9 mg/dL (2.5-4.9)
[2020-07-31 06:15] LABS: ALK PHOS 285 U/L (45-117)
[2020-07-31 06:17] LABS: CREATININE < 0.2 mg/dL (0.55-1.3)
[2020-07-31 06:18] LABS: CALCIUM 6.8 mg/dL (8.5-10.1)
[2020-07-31] MEDS ORDERED: DEXTROSE 50%-WATER 25 GM/50 ML DISP.SYRIN ONE (06:33)
[2020-07-31] MEDS: DEXTROSE 50%-WATER - 25 GM/50 ML VIAL IVPUSH PRN (06:34)
[2020-07-31] MEDS: MAGNESIUM 1GM/D5W 100ML - 100 ML IVPB IVPB ONE ×2 (08:56→12:00)
[2020-07-31] MEDS: DEXTROSE 5%-NORMAL SALINE 1,000 ML IV SCH (09:14)
[2020-07-31] MEDS: ASCORBIC ACID 500 MG TABLET (FP) PO SCH (09:31)
[2020-07-31] MEDS: POTASSIUM CHLORIDE ORAL LIQUID 20 MEQ/15 ML PO SCH (09:31)
[2020-07-31] MEDS: FOLIC ACID 1 MG TABLET (FP) NGT SCH (09:32)
[2020-07-31] MEDS: MULTIVIT-MINERALS ORAL LIQUID NGT SCH (09:32)
[2020-07-31] MEDS: THIAMINE HCL 200 MG/2 ML VIAL IVPB SCH (09:32)
[2020-07-31] MEDS: ZINC OXIDE 20% TOPICAL OINTMENT 30 GM TUBE TP SCH (09:33)
[2020-07-31] MEDS: LIDOCAINE HCL 5% TOP OINTMENT 50 GM TUBE TP SCH (09:33)
--- NOTE | 2020-07-31 10:56 | PN ---
Teaching Attending Note Name of Resident: Yadira Hamilton ATTENDING PHYSICIAN STATEMENT I saw and evaluated the patient. I reviewed the resident's note and discussed the case with the resident. I agree with the resident's findings and plan as documented. SUBJECTIVE: Pt seen and examined in the ICU. Vented, awake. Remains on vasopressin gtt. For PEG today. Hungry. OBJECTIVE: Vital Signs Period Temp Pulse Resp BP Sys/Campbell Pulse Ox Last 24 Hr 97 F-98 F 46-97 14-26 82-114/40-89 96-100 Intake & Output 07/28/20 07/29/20 07/30/20 07/31/20 23:59 23:59 23:59 23:59 Intake Total 3360 3993.8 3155.8 1630 Output Total 4080 3700 1400 450 Balance -720 293.8 1755.8 1180 Weight 38.7 kg 38.7 kg 33.1 kg 33.566 kg Gen: vented, cachectic Heart: RRR Lung: scattered rhonchi Abd: soft, nontender, +ascites Ext: no edema CBC, BMP 07/31/20 04:00 07/31/20 04:00 Active Medications Acetaminophen (Tylenol -) 500 mg PO Q6H PRN PRN Reason: PAIN LEVEL 1-5 Last Admin: 07/29/20 17:29 Dose: 500 mg Documented by: Ascorbic Acid (Vitamin C -) 500 mg PO DAILY [facility] Last Admin: 07/31/20 09:31 Dose: Not Given Documented by: Banana Based Medical Food (Banatrol Plus Powder Packet) 1 packet GT TID [facility] Last Admin: 07/31/20 05:55 Dose: Not Given Documented by: Dextrose (D50w (Vial) -) 12.5 gm IVPUSH PRN PRN PRN Reason: HYPOGLYCEMIA Last Admin: 07/31/20 06:34 Dose: 12.5 gm Documented by: Folic Acid (Folic Acid -) 1 mg NGT DAILY [facility] Last Admin: 07/31/20 09:32 Dose: Not Given Documented by: Heparin Sodium (Porcine) (Heparin -) 5,000 unit SQ BID [facility] Last Admin: 07/30/20 13:00 Dose: 5,000 unit Documented by: Hydromorphone HCl (Dilaudid Vial -) 1 mg IVPUSH Q3H PRN PRN Reason: PAIN LEVEL 7 - 10 Last Admin: 07/31/20 08:54 Dose: 1 mg Documented by: Dexmedetomidine/Sodium Chloride (Precedex 400 Mcg/100 Ml Inject) 400 mcg in 100 mls @ 1.542 mls/hr IVPB TITR [facility] Last Admin: 07/30/20 18:22 Dose: 0.7 mcg/kg/hr, 5.398 mls/hr Documented by: Vasopressin 40 units/ Sodium (Chloride) 100 mls @ 5 mls/hr IVPB ASDIR [facility]; Protocol Last Admin: 07/30/20 18:21 Dose: 2 units/hr, 5 mls/hr Documented by: Tigecycline 50 mg/ Dextrose 100 mls @ 100 mls/hr IVPB BID [facility]; Protocol Last Admin: 07/30/20 21:24 Dose: 100 mls/hr Documented by: Dextrose/Sodium Chloride (D5-Ns -) 1,000 mls @ 42 mls/hr IV ASDIR [facility] Last Admin: 07/31/20 09:14 Dose: 42 mls/hr Documented by: Lidocaine HCl (Xylocaine 5% Top. Ointment) 1 applic TP DAILY [facility] Last Admin: 07/31/20 09:33 Dose: 1 applic Documented by: Multi-Ingredient Ointment (Zinc Oxide) 1 applic TP DAILY [facility] Last Admin: 07/31/20 09:33 Dose: 1 applic Documented by: Multivitamins/Minerals (Certavite-Antioxidant Liquid) 15 ml NGT DAILY [facility] Last Admin: 07/31/20 09:32 Dose: Not Given Documented by: Potassium Chloride (Potassium Chloride Oral Liquid) 40 meq PO DAILY [facility] Last Admin: 07/31/20 09:31 Dose: Not Given Documented by: Potassium Phos/Sodium Phos (Phos-Nak Packet -) 1 packet PO TID [facility] Last Admin: 07/31/20 05:55 Dose: Not Given Documented by: Thiamine HCl (Vitamin B1 Injection -) 100 mg IVPB DAILY [facility] Last Admin: 07/31/20 09:32 Dose: 100 mg Documented by: ASSESSMENT AND PLAN: Acute Hypoxic Respiratory Failure s/p Tracheostomy Pneumonia likely Aspiration UTI Sepsis Hyponatremia Small Bowel Obstruction Ascites s/p Peritoneal drain placement Alcohol/Heroin Abuse Anemia/Thrombocytopenia Failure to Thrive Severe Protein Calorie Malnutrition Refeeding Syndrome - pain control - monitor urine output, creatinine - replete lytes - continue antibiotics - titrate pressors to maintain MAP >65 - titrate FiO2 to keep SpO2 >90% - spontaneous breathing trials as tolerated - for PEG placement - DVT/GI prophylaxis - continue ICU monitoring critical care time spent in reviewing chart, evaluating patient and formulating plan 35 min
[2020-07-31] MEDS: TIGECYCLINE 50 MG in DEXTROSE 5%-WATER - 100 ML IVPB SCH ×2 (11:00→21:14)
[2020-07-31] MEDS ORDERED: MAGNESIUM SULF 50% (8.12 MEQ/2 ML-1 GM VIAL) ONE (11:28)
[2020-07-31 12:07] LABS: BODY FLUID ALBUMIN 0.5 g/dL (Not Estab.)
[2020-07-31 12:18] LABS: HEMATOCRIT 31.4 % (32.4-45.2); HEMOGLOBIN 10.4 GM/dL (10.7-15.3); MCH 29.9 pg (25.7-33.7); MCHC 33.3 g/dl (32.0-36.0); MEAN CELL VOLUME 89.7 fl (80-96); MEAN PLT VOLUME 9.2 fl (7.5-11.1); PLATELET COUNT 144 K/MM3 (134-434); RDW 17.2 % (11.6-15.6); WHITE BLOOD COUNT 10.7 K/mm3 (4.0-10.0)
--- NOTE | 2020-07-31 12:20 | PN ---
Physical Exam: SUBJECTIVE: Patient seen and examined bedside. Pain well controlled. NPO for peg placement today. OBJECTIVE: Vital Signs Temperature 97 F L 07/31/20 06:00 Pulse Rate 66 07/31/20 11:55 Respiratory Rate 21 H 07/31/20 11:55 Blood Pressure 97/40 L 07/31/20 06:00 O2 Sat by Pulse Oximetry (%) 90 L 07/31/20 11:55 GENERAL: The patient is awake, alert, and fully oriented HEAD: temporal wasting EYES: PERRL, EOMI. ENT: moist mucous membranes. NECK: Trach placed LUNGS: diminished breath sounds BL HEART: RRR ABDOMEN: very cachectic, pig tail cath in place on righ lower abdomen. mistry in place, rectal flexi seal in place EXTREMITIES: no edema, extreme muscle wasting NEUROLOGICAL: Cranial nerves II through XII grossly intact PSYCH: Normal mood, normal affect. SKIN: Sacral ulcer stage 4. Skin breakdown in perianal area. Intake & Output 07/28/20 07/29/20 07/30/20 07/31/20 23:59 23:59 23:59 23:59 Intake Total 3360 3993.8 3155.8 1630 Output Total 4080 3700 1400 450 Balance -720 293.8 1755.8 1180 Weight 85 lb 5.102 oz 85 lb 5.102 oz 72 lb 15.568 oz 74 lb Laboratory Results WBC 8.2 K/mm3 (4.0-10.0) 07/31/20 04:00 RBC 2.44 M/mm3 (3.60-5.2) L 07/31/20 04:00 Hgb 7.2 GM/dL (10.7-15.3) L 07/31/20 04:00 Hct 21.6 % (32.4-45.2) L 07/31/20 04:00 MCV 88.4 fl (80-96) 07/31/20 04:00 MCH 29.4 pg (25.7-33.7) 07/31/20 04:00 MCHC 33.2 g/dl (32.0-36.0) 07/31/20 04:00 RDW 18.8 % (11.6-15.6) H 07/31/20 04:00 Plt Count 238 K/MM3 (134-434) D 07/31/20 04:00 MPV 8.4 fl (7.5-11.1) 07/31/20 04:00 Absolute Neuts (auto) 6.7 K/mm3 (1.5-8.0) 07/29/20 05:00 Total Counted 100 07/04/20 10:45 Neutrophils % 87.1 % (42.8-82.8) H 07/29/20 05:00 Neutrophils % (Manual) 82.7 % (42.8-82.8) 07/18/20 06:00 Band Neutrophils % 2.7 % 07/18/20 06:00 Lymphocytes % 7.0 % (8-40) L D 07/29/20 05:00 Lymphocytes % (Manual) 10.9 % (8-40) D 07/18/20 06:00 Monocytes % 5.2 % (3.8-10.2) 07/29/20 05:00 Monocytes % (Manual) 4 % (3.8-10.2) 07/18/20 06:00 Eosinophils % 0.6 % (0-4.5) 07/29/20 05:00 Eosinophils % (Manual) 0.0 % (0-4.5) 07/18/20 06:00 Basophils % 0.1 % (0-2.0) 07/29/20 05:00 Basophils % (Manual) 0.0 % (0-2.0) 07/18/20 06:00 Myelocytes % (Man) 0 % (0-2) 07/18/20 06:00 Promyelocytes % (Man) 0 % (0-2) 07/18/20 06:00 Blast Cells % (Manual) 0 % (0-0) 07/18/20 06:00 Nucleated RBC % 0 % (0-0) 07/29/20 05:00 Metamyelocytes 0 % (0-2) 07/18/20 06:00 Hypochromia 0 07/18/20 06:00 Platelet Estimate Decreased 07/18/20 06:00 Platelet Comment No clotting detected 07/02/20 00:54 Platelet Comment No clumping noted 07/02/20 00:54 Polychromasia 1+ 07/18/20 06:00 Poikilocytosis 2+ 07/16/20 05:30 Anisocytosis 1+ 07/18/20 06:00 Microcytosis 2+ 07/16/20 05:30 Macrocytosis 0 07/18/20 06:00 Tear Drop Cells 1+ 07/02/20 06:50 Ovalocytes 1+ 07/02/20 06:50 Ho Cells 1+ 07/18/20 06:00 Acanthocytes (Spur) 1+ 07/16/20 05:30 Fragmented RBCs 1+ 07/18/20 06:00 Schistocytes 2+ 07/16/20 05:30 Retic Count 4.15 % (0.5-1.5) H 07/20/20 06:00 Haptoglobin 148 mg/dL (33-278) 07/20/20 15:45 PT with INR 21.70 SEC (9.7-13.0) H 07/31/20 04:00 INR 1.83 (0.83-1.09) H 07/31/20 04:00 PTT (Actin FS) 40.3 SECONDS (25.2-36.5) H 07/29/20 05:00 Fibrinogen 344.0 mg/dL (238-498) 07/21/20 06:00 D-Dimer 1728 ng/ml (0-500) H 07/20/20 13:00 Anticoagulation Therapy No Result Required. 07/23/20 05:20 Puncture Site Right brachial 07/23/20 05:20 Patient Temperature No Result Required. 07/23/20 05:20 ABG pH 7.472 (7.350-7.450) H 07/23/20 05:20 ABG pCO2 26.50 mmHg (35-45) L 07/23/20 05:20 ABG pO2 142.3 mmHg (80-100) H 07/23/20 05:20 ABG HCO3 18.9 mmol/L (22-27) L 07/23/20 05:20 ABG O2 Sat (Measured) 99.0 mmHg (95-98) H 07/23/20 05:20 ABG O2 Content No Result Required. 07/23/20 05:20 ABG Base Excess -4.1 mmol/L (-2-2) L 07/23/20 05:20 Yandel Test Positive 07/23/20 05:20 VBG pH 7.377 (7.310-7.410) 07/01/20 15:43 POC VBG pCO2 40.1 mmHg (38-52) 07/01/20 15:43 POC VBG pO2 42.4 mmHg (28-48) 07/01/20 15:43 VBG HCO3 23.0 mmol/L (23-29) 07/01/20 15:43 VBG O2 Sat (Meet) 77.2 % (70-80) 07/01/20 15:43 VBG Base Excess -2.0 mmol/L (-2-2) 07/01/20 15:43 Patient On Oxygen Yes 07/23/20 05:20 O2 Delivery Device Vent 07/23/20 05:20 Oxygen Flow Rate 40% 07/23/20 05:20 Vent Mode A/c 07/23/20 05:20 Vent Rate 14 07/23/20 05:20 Mechanical Rate Yes 07/23/20 05:20 PEEP 5.0 cmH2O 07/23/20 05:20 Pressure Support Vent 350 07/23/20 05:20 Sodium 125 mmol/L (136-145) L 07/31/20 04:00 Potassium 4.4 mmol/L (3.5-5.1) 07/31/20 04:00 Chloride 94 mmol/L (98-107) L 07/31/20 04:00 Carbon Dioxide 27 mmol/L (21-32) 07/31/20 04:00 Anion Gap 4 MMOL/L (8-16) L 07/31/20 04:00 BUN 18.1 mg/dL (7-18) H 07/31/20 04:00 Creatinine < 0.2 mg/dL (0.55-1.3) L 07/31/20 04:00 Est GFR (CKD-EPI)AfAm 196.46 07/31/20 04:00 Est GFR (CKD-EPI)NonAf 169.51 07/31/20 04:00 POC Glucometer 110 UNITS (80-120) 07/31/20 11:06 Random Glucose 79 mg/dL (74-106) 07/31/20 04:00 Lactic Acid 1.6 mmol/L (0.4-2.0) 07/24/20 02:15 Calcium 6.8 mg/dL (8.5-10.1) L* 07/31/20 04:00 Phosphorus 2.9 mg/dL (2.5-4.9) 07/31/20 04:00 Phosphorus Cancelled 07/31/20 04:00 Magnesium 1.6 mg/dL (1.8-2.4) L 07/31/20 04:00 Magnesium Cancelled 07/31/20 04:00 Iron 23 ug/dL (50-175) L 07/20/20 06:00 TIBC 88 ug/dL (250-450) L 07/20/20 06:00 Iron Saturation 26 % (17.5-39) 07/20/20 06:00 Unsaturated IBC 65 ug/dL (200-275) L 07/20/20 06:00 Total Bilirubin 0.5 mg/dL (0.2-1) 07/31/20 04:00 Direct Bilirubin 0.3 mg/dL (0.0-0.2) H 07/22/20 06:00 AST 33 U/L (15-37) 07/31/20 04:00 ALT 34 U/L (13-61) 07/31/20 04:00 Alkaline Phosphatase 285 U/L (45-117) H 07/31/20 04:00 Ammonia 38.60 umol/L (11-32) H 07/19/20 13:50 LD Total 242 U/L (84-246) 07/20/20 15:45 Creatine Kinase 38 U/L (26-192) 07/09/20 15:30 Creatine Kinase Index 5.2 % (0.0-5.0) H 07/04/20 06:25 CK-MB (CK-2) 17.0 ng/mL (0.5-3.6) H 07/04/20 06:25 Troponin I < 0.02 ng/ml (0.00-0.05) 07/01/20 14:50 B-Natriuretic Peptide 77881.8 pg/ml (5-125) H 07/04/20 06:25 Total Protein 3.9 g/dl (6.4-8.2) L 07/31/20 04:00 Albumin 1.7 g/dl (3.4-5.0) L 07/31/20 04:00 Tumor Marker AFP 1.8 ng/ml (0.0-8.3) 07/07/20 12:00 Vitamin B12 2423 pg/ml (193-986) H 07/04/20 06:25 Serum Folate 10 ng/mL (3.1-17.5) 07/04/20 06:25 TSH 6.61 uIU/ml (0.358-3.74) H 07/13/20 05:30 Free T4 0.46 ng/dl (0.76-1.46) L 07/13/20 05:30 Free T3 1.0 pg/ml (2.0-4.4) L 07/13/20 05:30 Serum , Qual Negative 07/01/20 17:00 Urine Color Dk yellow 07/24/20 01:31 Urine Appearance Turbid 07/24/20 01:31 Urine pH 5.5 (5.0-8.0) D 07/24/20 01:31 Ur Specific [place] 1.028 (1.010-1.035) 07/24/20 01:31 Urine Protein 1+ (NEGATIVE) H 07/24/20 01:31 Urine Glucose (UA) Negative (NEGATIVE) 07/24/20 01:31 Urine Ketones Negative (NEGATIVE) 07/24/20 01:31 Urine Blood 3+ (NEGATIVE) H 07/24/20 01:31 Urine Nitrite Positive (NEGATIVE) H 07/24/20 01:31 Urine Bilirubin Negative (NEGATIVE) 07/24/20 01:31 Urine Urobilinogen 0.2 mg/dL (0.2-1.0) 07/24/20 01:31 Ur Leukocyte Esterase 3+ (NEGATIVE) H 07/24/20 01:31 Urine WBC (Auto) 1786 /uL (0-25.8) 07/24/20 01:31 Urine RBC (Auto) 291.4 /uL (0-23.9) 07/20/20 17:30 Urine Casts (Auto) 2 /uL (0-3.1) 07/24/20 01:31 U Pathogenic Cast Auto Negative /lpf (NEGATIVE) 07/20/20 17:30 U Epithel Cells (Auto) 3 /uL (0-25.1) 07/24/20 01:31 U Sm Round Cell (Auto) Non seen 07/20/20 10:15 Urine Bacteria (Auto) 2900 /uL (0-1359) 07/24/20 01:31 Urine Yeast (Auto) Negative (NEGATIVE) 07/20/20 17:30 Fluid Source Peritoneal 07/27/20 16:15 Fluid WBC 59 /mm3 07/27/20 16:15 Fluid RBC 187 /mm3 07/27/20 16:15 Fluid Neutrophils 50 % 07/27/20 16:15 Fluid Lymphocytes 12 % 07/27/20 16:15 Fluid Glucose 113 mg/dL (.) 07/27/20 16:15 Fluid Total Protein 1.0 g/dL (.) 07/27/20 16:15 Fluid Albumin 0.5 g/dL (Not Estab.) 07/27/20 16:15 Body Fluid LDH Source 84 IU/L (.) 07/27/20 16:15 Fluid Amylase 29 U/L (.) 07/27/20 16:15 Fluid Triglycerides 23 mg/dL (Not Estab.) 07/27/20 16:15 Pleural Monocytes 13 % 07/27/20 16:15 Pleural Macrophages 24 % 07/27/20 16:15 Pleural Diff Comment 07/27/20 16:15 Stool Occult Blood Positive (NEGATIVE) 07/05/20 14:50 Vancomycin Pre-Dose 14.8 ug/ml (5-10) H 07/25/20 02:15 Opiates Screen Positive ng/ml (WSMLDI=729) A* 07/01/20 17:00 Methadone Screen Negative ng/ml (DAEOVM=698) 07/01/20 17:00 Barbiturate Screen Negative ng/ml (SMMQIK=916) 07/01/20 17:00 Phencyclidine Screen Negative ng/ml (CUTOFF=25) 07/01/20 17:00 Ur Amphetamines Screen Negative ng/ml (MHJYZB=196) 07/01/20 17:00 MDMA (Ecstasy) Screen Negative ng/ml (NMGIPH=013) 07/01/20 17:00 Benzodiazepines Screen Negative ng/ml (AKMOBV=419) 07/01/20 17:00 Cocaine Screen Negative ng/ml (SNNXSQ=669) 07/01/20 17:00 U Marijuana (THC) Screen Negative ng/ml (CUTOFF=50) 07/01/20 17:00 Alcohol, Quantitative < 3 mg/dL (0.0-5.0) 07/01/20 14:50 Soluble Liver Ag IgG Ab 1.4 units (0.0-20.0) 07/07/20 12:00 Smooth [employer] Intrp 4 Units (0-19) 07/07/20 12:00 COVID-19 (ALYSIA) Not detected (Not Detected) 07/01/20 15:14 Hep A IgM Ab Confirm Negative (Negative) 07/07/20 12:00 Hepatitis A Ab Total Negative (Negative) 07/07/20 12:00 Hep Bs Antigen Negative (Negative) 07/07/20 12:00 Hep Bs Antibody Non reactive (.) 07/07/20 12:00 Hep B Core Total Ab Negative (Negative) 07/07/20 12:00 Hep B Core IgM Ab Negative (Negative) 07/07/20 12:00 Hepatitis Be Antibody Negative (Negative) 07/07/20 12:00 Hepatitis Be Antigen Negative (Negative) 07/07/20 12:00 Hepatitis C Genotype (.) 07/07/20 12:00 HIV Ag/Ab Combo Qual Negative (NEGATIVE) 07/02/20 00:54 Blood Type O POSITIVE 07/30/20 08:30 Antibody Screen Negative 07/30/20 08:30 Crossmatch See Detail 07/30/20 08:30 Active Medications Generic Name Dose Route Start Last Admin Trade Name Freq PRN Reason Stop Dose Admin Acetaminophen 500 mg 07/28/20 21:45 07/29/20 17:29 Tylenol - PO 500 mg Q6H PRN Administration PAIN LEVEL 1-5 Ascorbic Acid 500 mg 07/27/20 13:00 07/31/20 09:31 Vitamin C - PO Not Given DAILY [facility] Banana Based Medical Food 1 packet 07/10/20 22:00 07/31/20 05:55 Banatrol Plus Powder Packet GT Not Given TID [facility] Dextrose 12.5 gm 07/08/20 07:08 07/31/20 06:34 D50w (Vial) - IVPUSH 12.5 gm PRN PRN Administration HYPOGLYCEMIA Folic Acid 1 mg 07/06/20 10:00 07/31/20 09:32 Folic Acid - NGT Not Given DAILY [facility] Heparin Sodium (Porcine) 5,000 unit 07/20/20 10:00 07/30/20 13:00 Heparin - SQ 5,000 unit BID RAUL Administration Hydromorphone HCl 1 mg 07/26/20 13:39 07/31/20 08:54 Dilaudid Vial - IVPUSH 1 mg Q3H PRN Administration PAIN LEVEL 7 - 10 Dexmedetomidine/Sodium Chloride 400 mcg in 100 mls @ 1.542 mls/hr 07/25/20 11:15 07/30/20 18:22 Precedex 400 Mcg/100 Ml Inject IVPB 0.7 mcg/kg/hr TITR RAUL 5.398 mls/hr Administration 0.2 MCG/KG/HR Vasopressin 40 units/ Sodium 100 mls @ 5 mls/hr 07/25/20 16:30 07/30/20 18:21 Chloride IVPB 2 units/hr ASDIR RAUL 5 mls/hr Administration Protocol 2 UNITS/HR Tigecycline 50 mg/ Dextrose 100 mls @ 100 mls/hr 07/28/20 10:00 07/30/20 21:24 IVPB 100 mls/hr BID RAUL Administration Protocol Dextrose/Sodium Chloride 1,000 mls @ 42 mls/hr 07/31/20 06:45 07/31/20 09:14 D5-Ns - IV 42 mls/hr ASDIR RAUL Administration Lidocaine HCl 1 applic 07/25/20 21:50 07/31/20 09:33 Xylocaine 5% Top. Ointment TP 1 applic DAILY RAUL Administration Multi-Ingredient Ointment 1 applic 07/19/20 13:30 07/31/20 09:33 Zinc Oxide TP 1 applic DAILY RAUL Administration Multivitamins/Minerals 15 ml 07/06/20 11:45 07/31/20 09:32 Certavite-Antioxidant Liquid NGT Not Given DAILY RAUL Potassium Chloride 40 meq 07/17/20 12:30 07/31/20 09:31 Potassium Chloride Oral Liquid PO Not Given DAILY RAUL Potassium Phos/Sodium Phos 1 packet 07/09/20 14:00 07/31/20 05:55 Phos-Nak Packet - PO Not Given TID RAUL Thiamine HCl 100 mg 07/11/20 12:45 07/31/20 09:32 Vitamin B1 Injection - IVPB 100 mg DAILY RAUL Administration ASSESSMENT/PLAN: 35 yo female with PMH of malnutrition 2/2 bulimia and polysubstance use disorder, cirrhosis, & heroin abuse, in ICU with sepsis and acute hypoxic r espiratory failure, now s/p trach, sp abdominal peritoneal drain. Peg placement for today. Neuro - Alert, responsive, able to communicate with writing and mouthing words - Dilaudid 1g, q3h - Dexmedetomidine CV - Septic Shock 2/2 UTI - Baseline BP with systolic 80s - Currently off vaso, BP stable Respiratory - Acute Hypoxic Respiratory Failure, s/p Tracheostomy - Likely Aspiration Pneumonia - s/p trach on 07/25; maintain SpO2 >90% continue CPAP with supported breaths - Aspiration precautions GI - SBO >> resolved - Refeeding Syndrome Risk - Ascites: likely 2/2 severe hypoalbuminemia now s/p Peritoneal drain placement likely no SBP as PMNs are <250 - Peritoneal drain placed on 07/27; ascites fluid studies pending - PEG Tube scheduled for 07/30 delayed b/c barium prep and KUB not done night before - mistry in place - UTI - Azo today for urethral burning, may discolor urine Renal - Hypoalbuminemia; 2/2 severe malnutrition - Renal following (Dr. Chavez) ID - Septic Shock; multifactorial 2/2 UTI and likely Aspiration pneumonia - Likely Aspiration Pneumonia - Urine Cx +ESBL Klebsiella pneumo, carbapenem-resistent - S/p Vanc/Zosyn/Meropenem - currently on Tigecycline (Day 4) - ID following (Dr. Martines) Heme - Elevated INR, 1.83 >> 1 unit FFP & vitamin K today for PEG - Hbg 7.2, 1 unit pRBC given before peg procedure - Anemia/Thrombocytopenia, most likely 2/2 liver cirrhosis - check coags daily Psych - Hx of Alcohol/Heroin Abuse - Drug cessation counseling - bulimia/eating disorder Derm - Multiple Sacral Ulcers (stage 4) - Daily wound care, air mattress - Off-loading to all bony areas (heels, ankles, hips and tailbone) with Allevyn/Optifoam Prophylaxis - DVT ppx: BID SQH because of low bodyweight - restart heparin after PEG FEN - Hyponatremia, start restricting fluids - check and replete electrolytes as needed - NPO for peg placement/ otherwise, Perative Tube feeds titrate up to 55 LTD - Central Line (R IJ) - 07/24 >> remove today - Trach - 07/25 - Pigtail catheter (07/27) drained 850 cc over last 24hrs - Rectal tube - Mistry Dispo -Cont to monitor in ICU Visit type - Emergency Visit Emergency Visit: Yes ED Registration Date: 07/01/20 Care time: The patient presented to the Emergency Department on the above date and was hospitalized for further evaluation of their emergent condition. - New Patient This patient is new to me today: No - Critical Care Critical Care patient: Yes Total Critical Care Time (in minutes): 36 Critical Care Statement: The care of this patient involved high complexity decision making to prevent further life threatening deterioration of the patient's condition and/or to evaluate & treat vital organ system(s) failure or risk of failure. - Discharge Referral Referred to [facility] Med P.C.: No ATTENDING PHYSICIAN STATEMENT I saw and evaluated the patient. I reviewed the resident's note and discussed the case with the resident. I agree with the resident's findings and plan as documented. SUBJECTIVE: OBJECTIVE: ASSESSMENT AND PLAN:
[2020-07-31] MEDS: DEXMEDETOMIDINE IN 0.9 % NACL 400 MCG/100 ML VIAL IVPB SCH (12:33)
[2020-07-31 12:43] LABS: ANION GAP 6 MMOL/L (8-16); BLOOD UREA NITROGEN 18.3 mg/dL (7-18); CHLORIDE 94 mmol/L (98-107); CO2 26 mmol/L (21-32); GLUCOSE,RANDOM 106 mg/dL (74-106); POTASSIUM 4.2 mmol/L (3.5-5.1); SODIUM 126 mmol/L (136-145)
[2020-07-31 12:47] LABS: INR 1.59 (0.83-1.09); PROTHROMBIN TIME (PATIENT) 18.5 SEC (9.7-13.0)
[2020-07-31 12:50] LABS: CREATININE < 0.2 mg/dL (0.55-1.3)
[2020-07-31 12:53] LABS: CALCIUM 6.9 mg/dL (8.5-10.1)
--- NOTE | 2020-07-31 13:54 | PN ---
Progress Note, Physician History of Present Illness: Pt seen and examined at bedside. She is awake. She remains on vent. - Current Medication List Current Medications: Active Medications Acetaminophen (Tylenol -) 500 mg PO Q6H PRN PRN Reason: PAIN LEVEL 1-5 Last Admin: 07/29/20 17:29 Dose: 500 mg Documented by: Ascorbic Acid (Vitamin C -) 500 mg PO DAILY RAUL Last Admin: 07/31/20 09:31 Dose: Not Given Documented by: Banana Based Medical Food (Banatrol Plus Powder Packet) 1 packet GT TID RAUL Last Admin: 07/31/20 05:55 Dose: Not Given Documented by: Dextrose (D50w (Vial) -) 12.5 gm IVPUSH PRN PRN PRN Reason: HYPOGLYCEMIA Last Admin: 07/31/20 06:34 Dose: 12.5 gm Documented by: Folic Acid (Folic Acid -) 1 mg NGT DAILY RAUL Last Admin: 07/31/20 09:32 Dose: Not Given Documented by: Heparin Sodium (Porcine) (Heparin -) 5,000 unit SQ BID RAUL Last Admin: 07/30/20 13:00 Dose: 5,000 unit Documented by: Hydromorphone HCl (Dilaudid Vial -) 1 mg IVPUSH Q3H PRN PRN Reason: PAIN LEVEL 7 - 10 Last Admin: 07/31/20 12:10 Dose: 1 mg Documented by: Dexmedetomidine/Sodium Chloride (Precedex 400 Mcg/100 Ml Inject) 400 mcg in 100 mls @ 1.542 mls/hr IVPB TITR [facility] Last Admin: 07/31/20 12:33 Dose: Not Given Documented by: Vasopressin 40 units/ Sodium (Chloride) 100 mls @ 5 mls/hr IVPB ASDIR [facility]; Protocol Last Titration: 07/31/20 10:00 Dose: 0 units/hr, 0 mls/hr Documented by: Tigecycline 50 mg/ Dextrose 100 mls @ 100 mls/hr IVPB BID RAUL; Protocol Last Admin: 07/31/20 11:00 Dose: 100 mls/hr Documented by: Dextrose/Sodium Chloride (D5-Ns -) 1,000 mls @ 42 mls/hr IV ASDIR RAUL Last Admin: 07/31/20 09:14 Dose: 42 mls/hr Documented by: Lidocaine HCl (Xylocaine 5% Top. Ointment) 1 applic TP DAILY [facility] Last Admin: 07/31/20 09:33 Dose: 1 applic Documented by: Multi-Ingredient Ointment (Zinc Oxide) 1 applic TP DAILY [facility] Last Admin: 07/31/20 09:33 Dose: 1 applic Documented by: Multivitamins/Minerals (Certavite-Antioxidant Liquid) 15 ml NGT DAILY [facility] Last Admin: 07/31/20 09:32 Dose: Not Given Documented by: Potassium Chloride (Potassium Chloride Oral Liquid) 40 meq PO DAILY [facility] Last Admin: 07/31/20 09:31 Dose: Not Given Documented by: Potassium Phos/Sodium Phos (Phos-Nak Packet -) 1 packet PO TID [facility] Last Admin: 07/31/20 05:55 Dose: Not Given Documented by: Thiamine HCl (Vitamin B1 Injection -) 100 mg IVPB DAILY [facility] Last Admin: 07/31/20 09:32 Dose: 100 mg Documented by: - Objective Vital Signs: Vital Signs Temperature 97 F L 07/31/20 06:00 Pulse Rate 66 07/31/20 11:55 Respiratory Rate 21 H 07/31/20 11:55 Blood Pressure 118/79 07/31/20 10:00 O2 Sat by Pulse Oximetry (%) 90 L 07/31/20 11:55 Constitutional: Yes: Calm Eyes: Yes: Conjunctiva Clear HENT: Yes: Atraumatic Cardiovascular: Yes: S1, S2 Respiratory: Yes: Mechanically Ventilated Gastrointestinal: Yes: Soft Genitourinary: Yes: Incontinence Musculoskeletal: Yes: Muscle Weakness Edema: No Integumentary: Yes: WNL Neurological: Yes: Oriented Labs: CBC, BMP 07/31/20 10:45 07/31/20 10:45 INR, PTT INR 1.59 (0.83-1.09) H 07/31/20 10:45 Fibrinogen 344.0 mg/dL (238-498) 07/21/20 06:00 - ....Imaging Chest X-ray: Report Reviewed Problem List - Problems (1) Hypoglycemia Code(s): E16.2 - HYPOGLYCEMIA, UNSPECIFIED (2) Sepsis Code(s): A41.9 - SEPSIS, UNSPECIFIED ORGANISM Qualifiers: Sepsis type: sepsis due to unspecified organism Sepsis acute organ dysfunction status: unspecified Qualified Code(s): A41.9 - Sepsis, unspecified organism (3) Hypoalbuminemia Code(s): E88.09 - OTH DISORDERS OF PLASMA-PROTEIN METABOLISM, NEC (4) Hyponatremia Code(s): E87.1 - HYPO-OSMOLALITY AND HYPONATREMIA Assessment/Plan Current Medications Generic Name Dose Route Start Last Admin Trade Name Freq PRN Reason Stop Dose Admin Acetaminophen 500 mg 07/28/20 21:45 07/29/20 17:29 Tylenol - PO 500 mg Q6H PRN Administration PAIN LEVEL 1-5 Ascorbic Acid 500 mg 07/27/20 13:00 07/31/20 09:31 Vitamin C - PO Not Given DAILY [facility] Banana Based Medical Food 1 packet 07/10/20 22:00 07/31/20 05:55 Banatrol Plus Powder Packet GT Not Given TID RAUL Dextrose 12.5 gm 07/08/20 07:08 07/31/20 06:34 D50w (Vial) - IVPUSH 12.5 gm PRN PRN Administration HYPOGLYCEMIA Folic Acid 1 mg 07/06/20 10:00 07/31/20 09:32 Folic Acid - NGT Not Given DAILY [facility] Heparin Sodium (Porcine) 5,000 unit 07/20/20 10:00 07/30/20 13:00 Heparin - SQ 5,000 unit BID RAUL Administration Hydromorphone HCl 1 mg 07/26/20 13:39 07/31/20 12:10 Dilaudid Vial - IVPUSH 1 mg Q3H PRN Administration PAIN LEVEL 7 - 10 Dexmedetomidine/Sodium Chloride 400 mcg in 100 mls @ 1.542 mls/hr 07/25/20 11:15 07/31/20 12:33 Precedex 400 Mcg/100 Ml Inject IVPB Not Given TITR RAUL 0.2 MCG/KG/HR Vasopressin 40 units/ Sodium 100 mls @ 5 mls/hr 07/25/20 16:30 07/31/20 10:00 Chloride IVPB 0 units/hr ASDIR RAUL 0 mls/hr Titration Protocol 2 UNITS/HR Tigecycline 50 mg/ Dextrose 100 mls @ 100 mls/hr 07/28/20 10:00 07/31/20 11:00 IVPB 100 mls/hr BID RAUL Administration Protocol Dextrose/Sodium Chloride 1,000 mls @ 42 mls/hr 07/31/20 06:45 07/31/20 09:14 D5-Ns - IV 42 mls/hr ASDIR RAUL Administration Lidocaine HCl 1 applic 07/25/20 21:50 07/31/20 09:33 Xylocaine 5% Top. Ointment TP 1 applic DAILY RAUL Administration Multi-Ingredient Ointment 1 applic 07/19/20 13:30 07/31/20 09:33 Zinc Oxide TP 1 applic DAILY RAUL Administration Multivitamins/Minerals 15 ml 07/06/20 11:45 07/31/20 09:32 Certavite-Antioxidant Liquid NGT Not Given DAILY RAUL Potassium Chloride 40 meq 07/17/20 12:30 07/31/20 09:31 Potassium Chloride Oral Liquid PO Not Given DAILY RAUL Potassium Phos/Sodium Phos 1 packet 07/09/20 14:00 07/31/20 05:55 Phos-Nak Packet - PO Not Given TID RAUL Thiamine HCl 100 mg 07/11/20 12:45 07/31/20 09:32 Vitamin B1 Injection - IVPB 100 mg DAILY RAUL Administration Impression 1. azotemia 2. hyponatremia 3. hyperkalemia 4. hypotension 5. sepsis 6. sbo 7. uti 8. liver cirrhosis 9. hypoalbuminemia 10. etoh abuse 11. substance abuse 12. psoriasis 13. acute resp failure 14. malnutrition Plan - sodium is dropping - avoid any drips with hypotonic fluids, mix in ns if possible - stop the free water flushes - monitor sodium closely - monitor response to saline - vent support
[2020-07-31] MEDS: VASOPRESSIN 40 UNITS in SODIUM CHLORIDE 98 ML IVPB SCH (18:21)
[2020-07-31] MEDS ORDERED: PT OWN MED DRAWER 7, Y5N ONE (21:04)
[2020-07-31] MEDS: HEPARIN NA (PORCINE) 5,000 UNITS/ML 1ML VIAL SQ SCH (21:14)
--- NOTE | 2020-07-31 22:28 | PN ---
Progress Note, Physician - Current Medication List Current Medications: Active Medications Acetaminophen (Tylenol -) 500 mg PO Q6H PRN PRN Reason: PAIN LEVEL 1-5 Last Admin: 07/29/20 17:29 Dose: 500 mg Documented by: Ascorbic Acid (Vitamin C -) 500 mg PO DAILY [facility] Last Admin: 07/31/20 09:31 Dose: Not Given Documented by: Banana Based Medical Food (Banatrol Plus Powder Packet) 1 packet GT TID [facility] Last Admin: 07/31/20 21:14 Dose: 1 packet Documented by: Dextrose (D50w (Vial) -) 12.5 gm IVPUSH PRN PRN PRN Reason: HYPOGLYCEMIA Last Admin: 07/31/20 06:34 Dose: 12.5 gm Documented by: Folic Acid (Folic Acid -) 1 mg NGT DAILY [facility] Last Admin: 07/31/20 09:32 Dose: Not Given Documented by: Heparin Sodium (Porcine) (Heparin -) 5,000 unit SQ BID [facility] Last Admin: 07/31/20 21:14 Dose: 5,000 unit Documented by: Hydromorphone HCl (Dilaudid Vial -) 1 mg IVPUSH Q3H PRN PRN Reason: PAIN LEVEL 7 - 10 Last Admin: 07/31/20 21:41 Dose: 1 mg Documented by: Dexmedetomidine/Sodium Chloride (Precedex 400 Mcg/100 Ml Inject) 400 mcg in 100 mls @ 1.542 mls/hr IVPB TITR [facility] Last Admin: 07/31/20 12:33 Dose: Not Given Documented by: Vasopressin 40 units/ Sodium (Chloride) 100 mls @ 5 mls/hr IVPB ASDIR [facility]; Protocol Last Admin: 07/31/20 18:21 Dose: Not Given Documented by: Tigecycline 50 mg/ Dextrose 100 mls @ 100 mls/hr IVPB BID [facility]; Protocol Last Admin: 07/31/20 21:14 Dose: 100 mls/hr Documented by: Dextrose/Sodium Chloride (D5-Ns -) 1,000 mls @ 42 mls/hr IV ASDIR [facility] Last Admin: 07/31/20 09:14 Dose: 42 mls/hr Documented by: Lidocaine HCl (Xylocaine 5% Top. Ointment) 1 applic TP DAILY [facility] Last Admin: 07/31/20 09:33 Dose: 1 applic Documented by: Multi-Ingredient Ointment (Zinc Oxide) 1 applic TP DAILY [facility] Last Admin: 07/31/20 09:33 Dose: 1 applic Documented by: Multivitamins/Minerals (Certavite-Antioxidant Liquid) 15 ml NGT DAILY [facility] Last Admin: 07/31/20 09:32 Dose: Not Given Documented by: Potassium Chloride (Potassium Chloride Oral Liquid) 40 meq PO DAILY [facility] Last Admin: 07/31/20 09:31 Dose: Not Given Documented by: Potassium Phos/Sodium Phos (Phos-Nak Packet -) 1 packet PO TID [facility] Last Admin: 07/31/20 21:14 Dose: 1 packet Documented by: Thiamine HCl (Vitamin B1 Injection -) 100 mg IVPB DAILY [facility] Last Admin: 07/31/20 09:32 Dose: 100 mg Documented by: - Objective Vital Signs: Vital Signs Temperature 97.9 F 07/31/20 18:00 Pulse Rate 84 07/31/20 20:00 Respiratory Rate 18 07/31/20 20:00 Blood Pressure 82/72 L 07/31/20 20:00 O2 Sat by Pulse Oximetry (%) 94 L 07/31/20 20:00 Labs: CBC, BMP 07/31/20 10:45 07/31/20 10:45 INR, PTT INR 1.59 (0.83-1.09) H 07/31/20 10:45 Fibrinogen 344.0 mg/dL (238-498) 07/21/20 06:00 Problem List - Problems (1) Respiratory failure Code(s): J96.90 - RESPIRATORY FAILURE, UNSP, UNSP W HYPOXIA OR HYPERCAPNIA (2) Sepsis Code(s): A41.9 - SEPSIS, UNSPECIFIED ORGANISM Qualifiers: Sepsis type: sepsis due to unspecified organism Sepsis acute organ dysfunction status: unspecified Qualified Code(s): A41.9 - Sepsis, unspecified organism (3) Anemia Code(s): D64.9 - ANEMIA, UNSPECIFIED (4) At risk for electrolyte imbalance Code(s): Z91.89 - OTH PERSONAL RISK FACTORS, NOT ELSEWHERE CLASSIFIED (5) SBO (small bowel obstruction) Code(s): K56.609 - UNSP INTESTNL OBST, UNSP TO PARTIAL VERSUS COMPLETE OBST (6) Liver cirrhosis, alcoholic Code(s): K70.30 - ALCOHOLIC CIRRHOSIS OF LIVER WITHOUT ASCITES (7) Hypoalbuminemia Code(s): E88.09 - OTH DISORDERS OF PLASMA-PROTEIN METABOLISM, NEC (8) Substance abuse Code(s): F19.10 - OTHER PSYCHOACTIVE SUBSTANCE ABUSE, UNCOMPLICATED (9) Cachexia Code(s): R64 - CACHEXIA (10) Severe malnutrition Code(s): E43 - UNSPECIFIED SEVERE PROTEIN-CALORIE MALNUTRITION (11) Sacral ulcer Code(s): L98.429 - NON-PRESSURE CHRONIC ULCER OF BACK WITH UNSPECIFIED SEVERITY
[2020-08-01] MEDS ORDERED: DEXTROSE 50%-WATER 25 GM/50 ML DISP.SYRIN ONE (00:01)
[2020-08-01] MEDS ORDERED: DEXTROSE 10%-WATER 500 ML INFUS.BAG IV ONE (00:10)
[2020-08-01] MEDS: HYDROmorphone HCl 2 MG/ML VIAL IVPUSH PRN ×6 (01:09→21:18)
[2020-08-01] MEDS: NAPH,MB-DB/K PH,MBDB POWDER PACKET PO SCH ×3 (06:31→21:13)
[2020-08-01] MEDS: BANATROL PLUS POWDER PACKET GT SCH ×3 (06:31→21:13)
[2020-08-01] MEDS: DEXTROSE 5%-NORMAL SALINE 1,000 ML IV SCH (07:06)
[2020-08-01 07:41] LABS: HEMATOCRIT 38.3 % (32.4-45.2); HEMOGLOBIN 12.8 GM/dL (10.7-15.3); MCH 29.8 pg (25.7-33.7); MCHC 33.5 g/dl (32.0-36.0); MEAN CELL VOLUME 88.7 fl (80-96); MEAN PLT VOLUME 7.5 fl (7.5-11.1); PLATELET COUNT 279 K/MM3 (134-434); RBC 4.31 M/mm3 (3.60-5.2); RDW 16.9 % (11.6-15.6); WHITE BLOOD COUNT 11.1 K/mm3 (4.0-10.0)
[2020-08-01 07:42] LABS: INR 1.75 (0.83-1.09); PROTHROMBIN TIME (PATIENT) 20.8 SEC (9.7-13.0)
[2020-08-01 07:44] LABS: ACTIVATED PTT 40.7 SECONDS (25.2-36.5)
[2020-08-01 08:07] LABS: ALBUMIN 2.1 g/dl (3.4-5.0); ALK PHOS 308 U/L (45-117); ANION GAP 6 MMOL/L (8-16); BILIRUBIN,TOTAL 2.1 mg/dL (0.2-1); BLOOD UREA NITROGEN 13.5 mg/dL (7-18); CALCIUM 7.4 mg/dL (8.5-10.1); CHLORIDE 104 mmol/L (98-107); CO2 26 mmol/L (21-32); CREATININE < 0.2 mg/dL (0.55-1.3); GLUCOSE,RANDOM 83 mg/dL (74-106); MAGNESIUM 2.2 mg/dL (1.8-2.4); PHOSPHOROUS 3.2 mg/dL (2.5-4.9); POTASSIUM 3.8 mmol/L (3.5-5.1); SGOT/AST 23 U/L (15-37); SGPT/ALT 35 U/L (13-61); SODIUM 137 mmol/L (136-145); TOT PROT 4.8 g/dl (6.4-8.2)
[2020-08-01] MEDS: LIDOCAINE HCL 5% TOP OINTMENT 50 GM TUBE TP SCH (09:00)
[2020-08-01] MEDS: ACETAMINOPHEN 1000 MG/100 ML VIAL (NON FORMULARY) IVPB SCH ×3 (09:35→21:14)
[2020-08-01] MEDS: POTASSIUM CHLORIDE ORAL LIQUID 20 MEQ/15 ML PO SCH (10:16)
[2020-08-01] MEDS: ASCORBIC ACID 500 MG TABLET (FP) PO SCH (10:16)
[2020-08-01] MEDS: FOLIC ACID 1 MG TABLET (FP) NGT SCH (10:16)
[2020-08-01] MEDS: HEPARIN NA (PORCINE) 5,000 UNITS/ML 1ML VIAL SQ SCH ×2 (10:18→21:19)
[2020-08-01] MEDS: THIAMINE HCL 200 MG/2 ML VIAL IVPB SCH (10:18)
--- NOTE | 2020-08-01 10:21 | PN ---
Progress Note, Physician History of Present Illness: stable on pressors still with mechanical vent plan for peg tube - Current Medication List Current Medications: Active Medications Acetaminophen (Ofirmev Injection -) 500 mg IVPB Q6H [facility] Last Admin: 08/01/20 09:35 Dose: 500 mg Documented by: Ascorbic Acid (Vitamin C -) 500 mg PO DAILY [facility] Last Admin: 07/31/20 09:31 Dose: Not Given Documented by: Banana Based Medical Food (Banatrol Plus Powder Packet) 1 packet GT TID [facility] Last Admin: 08/01/20 06:31 Dose: 1 packet Documented by: Dextrose (D50w (Vial) -) 12.5 gm IVPUSH PRN PRN PRN Reason: HYPOGLYCEMIA Last Admin: 07/31/20 06:34 Dose: 12.5 gm Documented by: Folic Acid (Folic Acid -) 1 mg NGT DAILY [facility] Last Admin: 07/31/20 09:32 Dose: Not Given Documented by: Heparin Sodium (Porcine) (Heparin -) 5,000 unit SQ BID [facility] Last Admin: 07/31/20 21:14 Dose: 5,000 unit Documented by: Hydromorphone HCl (Dilaudid Vial -) 1 mg IVPUSH Q3H PRN PRN Reason: PAIN LEVEL 7 - 10 Last Admin: 08/01/20 08:19 Dose: 1 mg Documented by: Dexmedetomidine/Sodium Chloride (Precedex 400 Mcg/100 Ml Inject) 400 mcg in 100 mls @ 1.542 mls/hr IVPB TITR [facility] Last Admin: 07/31/20 12:33 Dose: Not Given Documented by: Tigecycline 50 mg/ Dextrose 100 mls @ 100 mls/hr IVPB BID [facility]; Protocol Last Admin: 07/31/20 21:14 Dose: 100 mls/hr Documented by: Dextrose/Sodium Chloride (D5-Ns -) 1,000 mls @ 42 mls/hr IV ASDIR [facility] Last Admin: 08/01/20 07:06 Dose: Not Given Documented by: Lidocaine HCl (Xylocaine 5% Top. Ointment) 1 applic TP DAILY [facility] Last Admin: 08/01/20 09:00 Dose: 1 applic Documented by: Multi-Ingredient Ointment (Zinc Oxide) 1 applic TP DAILY [facility] Last Admin: 07/31/20 09:33 Dose: 1 applic Documented by: Multivitamins/Minerals (Certavite-Antioxidant Liquid) 15 ml NGT DAILY [facility] Last Admin: 07/31/20 09:32 Dose: Not Given Documented by: Potassium Chloride (Potassium Chloride Oral Liquid) 40 meq PO DAILY [facility] Last Admin: 07/31/20 09:31 Dose: Not Given Documented by: Potassium Phos/Sodium Phos (Phos-Nak Packet -) 1 packet PO TID [facility] Last Admin: 08/01/20 06:31 Dose: 1 packet Documented by: Thiamine HCl (Vitamin B1 Injection -) 100 mg IVPB DAILY [facility] Last Admin: 07/31/20 09:32 Dose: 100 mg Documented by: - Objective Vital Signs: Vital Signs Temperature 97.5 F L 08/01/20 10:00 Pulse Rate 120 H 08/01/20 10:00 Respiratory Rate 23 H 08/01/20 10:00 Blood Pressure 82/63 L 08/01/20 10:00 O2 Sat by Pulse Oximetry (%) 96 08/01/20 10:00 Constitutional: Yes: Other (failure to thrive) Cardiovascular: Yes: S1, S2 Respiratory: Yes: Mechanically Ventilated, Other (trach) Gastrointestinal: Yes: Normal Bowel Sounds, Soft Neurological: Yes: Alert Labs: CBC, BMP 08/01/20 06:10 08/01/20 06:10 INR, PTT INR 1.75 (0.83-1.09) H 08/01/20 06:10 Fibrinogen 344.0 mg/dL (238-498) 07/21/20 06:00 Assessment/Plan Pneumonia likely Aspiration UTI Sepsis Hyponatremia SBO resolving Alcohol/Heroin Abuse Anemia Failure to Thrive Severe Protein Calorie Malnutrition uti vesico intestinal fistula plan ct abx for peg tube close watch nutrition asp precautions rest as per icu wean of pressors as needed cc 38 min
[2020-08-01] MEDS: TIGECYCLINE 50 MG in DEXTROSE 5%-WATER - 100 ML IVPB SCH ×2 (10:22→21:13)
--- NOTE | 2020-08-01 10:22 | PN ---
Progress Note, Physician History of Present Illness: patient better peg in place off of pressors maintaining pressure still with loose stools - Current Medication List Current Medications: Active Medications Acetaminophen (Ofirmev Injection -) 500 mg IVPB Q6H [facility] Last Admin: 08/01/20 09:35 Dose: 500 mg Documented by: Ascorbic Acid (Vitamin C -) 500 mg PO DAILY [facility] Last Admin: 07/31/20 09:31 Dose: Not Given Documented by: Banana Based Medical Food (Banatrol Plus Powder Packet) 1 packet GT TID [facility] Last Admin: 08/01/20 06:31 Dose: 1 packet Documented by: Dextrose (D50w (Vial) -) 12.5 gm IVPUSH PRN PRN PRN Reason: HYPOGLYCEMIA Last Admin: 07/31/20 06:34 Dose: 12.5 gm Documented by: Folic Acid (Folic Acid -) 1 mg NGT DAILY [facility] Last Admin: 07/31/20 09:32 Dose: Not Given Documented by: Heparin Sodium (Porcine) (Heparin -) 5,000 unit SQ BID [facility] Last Admin: 07/31/20 21:14 Dose: 5,000 unit Documented by: Hydromorphone HCl (Dilaudid Vial -) 1 mg IVPUSH Q3H PRN PRN Reason: PAIN LEVEL 7 - 10 Last Admin: 08/01/20 08:19 Dose: 1 mg Documented by: Dexmedetomidine/Sodium Chloride (Precedex 400 Mcg/100 Ml Inject) 400 mcg in 100 mls @ 1.542 mls/hr IVPB TITR [facility] Last Admin: 07/31/20 12:33 Dose: Not Given Documented by: Tigecycline 50 mg/ Dextrose 100 mls @ 100 mls/hr IVPB BID [facility]; Protocol Last Admin: 07/31/20 21:14 Dose: 100 mls/hr Documented by: Dextrose/Sodium Chloride (D5-Ns -) 1,000 mls @ 42 mls/hr IV ASDIR [facility] Last Admin: 08/01/20 07:06 Dose: Not Given Documented by: Lidocaine HCl (Xylocaine 5% Top. Ointment) 1 applic TP DAILY [facility] Last Admin: 08/01/20 09:00 Dose: 1 applic Documented by: Multi-Ingredient Ointment (Zinc Oxide) 1 applic TP DAILY [facility] Last Admin: 07/31/20 09:33 Dose: 1 applic Documented by: Multivitamins/Minerals (Certavite-Antioxidant Liquid) 15 ml NGT DAILY [facility] Last Admin: 07/31/20 09:32 Dose: Not Given Documented by: Potassium Chloride (Potassium Chloride Oral Liquid) 40 meq PO DAILY [facility] Last Admin: 07/31/20 09:31 Dose: Not Given Documented by: Potassium Phos/Sodium Phos (Phos-Nak Packet -) 1 packet PO TID [facility] Last Admin: 08/01/20 06:31 Dose: 1 packet Documented by: Thiamine HCl (Vitamin B1 Injection -) 100 mg IVPB DAILY [facility] Last Admin: 07/31/20 09:32 Dose: 100 mg Documented by: - Objective Vital Signs: Vital Signs Temperature 97.5 F L 08/01/20 10:00 Pulse Rate 120 H 08/01/20 10:00 Respiratory Rate 23 H 08/01/20 10:00 Blood Pressure 82/63 L 08/01/20 10:00 O2 Sat by Pulse Oximetry (%) 96 08/01/20 10:00 Constitutional: Yes: No Distress, Calm, Thin, Other (failure to thrive) Cardiovascular: Yes: S1, S2 Respiratory: Yes: Regular, Mechanically Ventilated, Other (trach) Gastrointestinal: Yes: Normal Bowel Sounds, Soft, Other (peg) Musculoskeletal: Yes: WNL Extremities: Yes: WNL Neurological: Yes: Alert Labs: CBC, BMP 08/01/20 06:10 08/01/20 06:10 INR, PTT INR 1.75 (0.83-1.09) H 08/01/20 06:10 Fibrinogen 344.0 mg/dL (238-498) 07/21/20 06:00 Assessment/Plan Pneumonia likely Aspiration UTI Sepsis Hyponatremia SBO resolving Alcohol/Heroin Abuse Anemia Failure to Thrive Severe Protein Calorie Malnutrition uti vesico intestinal fistula plan ct abx for peg tube close watch nutrition asp precautions rest as per icu cc 38 min
[2020-08-01] MEDS: ZINC OXIDE 20% TOPICAL OINTMENT 30 GM TUBE TP SCH (10:44)
[2020-08-01] MEDS: MULTIVIT-MINERALS ORAL LIQUID NGT SCH (10:44)
[2020-08-01] MEDS: DEXMEDETOMIDINE IN 0.9 % NACL 400 MCG/100 ML VIAL IVPB SCH ×2 (11:00→18:17)
--- NOTE | 2020-08-01 11:06 | PN ---
Teaching Attending Note Name of Resident: Yadira Hamilton ATTENDING PHYSICIAN STATEMENT I saw and evaluated the patient. I reviewed the resident's note and discussed the case with the resident. I agree with the resident's findings and plan as documented. SUBJECTIVE: Pt seen and examined in the ICU. Vented, awake. s/p PEG placement. Off va sopressin gtt. AM CXR with left sided pneumothorax. Ppk 16. OBJECTIVE: Vital Signs Period Temp Pulse Resp BP Sys/Campbell Pulse Ox Last 24 Hr 97.5 F-98.5 F 66-120 12-26 74-121/56-92 89-100 Intake & Output 07/29/20 07/30/20 07/31/20 08/01/20 23:59 23:59 23:59 23:59 Intake Total 3993.8 3155.8 3421.4 776 Output Total 3700 1400 2550 1200 Balance 293.8 1755.8 871.4 -424 Weight 38.7 kg 33.1 kg 33.566 kg Gen: vented, cachectic Heart: RRR Lung: scattered rhonchi Abd: soft, nontender, +ascites Ext: no edema CBC, BMP 08/01/20 06:10 08/01/20 06:10 Active Medications Acetaminophen (Ofirmev Injection -) 500 mg IVPB Q6H [facility] Last Admin: 08/01/20 09:35 Dose: 500 mg Documented by: Ascorbic Acid (Vitamin C -) 500 mg PO DAILY [facility] Last Admin: 08/01/20 10:16 Dose: 500 mg Documented by: Banana Based Medical Food (Banatrol Plus Powder Packet) 1 packet GT TID [facility] Last Admin: 08/01/20 06:31 Dose: 1 packet Documented by: Dextrose (D50w (Vial) -) 12.5 gm IVPUSH PRN PRN PRN Reason: HYPOGLYCEMIA Last Admin: 07/31/20 06:34 Dose: 12.5 gm Documented by: Folic Acid (Folic Acid -) 1 mg NGT DAILY [facility] Last Admin: 08/01/20 10:16 Dose: 1 mg Documented by: Heparin Sodium (Porcine) (Heparin -) 5,000 unit SQ BID [facility] Last Admin: 08/01/20 10:18 Dose: 5,000 unit Documented by: Hydromorphone HCl (Dilaudid Vial -) 1 mg IVPUSH Q3H PRN PRN Reason: PAIN LEVEL 7 - 10 Last Admin: 08/01/20 08:19 Dose: 1 mg Documented by: Dexmedetomidine/Sodium Chloride (Precedex 400 Mcg/100 Ml Inject) 400 mcg in 100 mls @ 1.542 mls/hr IVPB TITR [facility] Last Admin: 07/31/20 12:33 Dose: Not Given Documented by: Tigecycline 50 mg/ Dextrose 100 mls @ 100 mls/hr IVPB BID [facility]; Protocol Last Admin: 08/01/20 10:22 Dose: 100 mls/hr Documented by: Dextrose/Sodium Chloride (D5-Ns -) 1,000 mls @ 42 mls/hr IV ASDIR [facility] Last Admin: 08/01/20 07:06 Dose: Not Given Documented by: Lidocaine HCl (Xylocaine 5% Top. Ointment) 1 applic TP DAILY [facility] Last Admin: 08/01/20 09:00 Dose: 1 applic Documented by: Multi-Ingredient Ointment (Zinc Oxide) 1 applic TP DAILY [facility] Last Admin: 08/01/20 10:44 Dose: 1 applic Documented by: Multivitamins/Minerals (Certavite-Antioxidant Liquid) 15 ml NGT DAILY [facility] Last Admin: 08/01/20 10:44 Dose: 15 ml Documented by: Potassium Chloride (Potassium Chloride Oral Liquid) 40 meq PO DAILY [facility] Last Admin: 08/01/20 10:16 Dose: 40 meq Documented by: Potassium Phos/Sodium Phos (Phos-Nak Packet -) 1 packet PO TID [facility] Last Admin: 08/01/20 06:31 Dose: 1 packet Documented by: Thiamine HCl (Vitamin B1 Injection -) 100 mg IVPB DAILY [facility] Last Admin: 08/01/20 10:18 Dose: 100 mg Documented by: ASSESSMENT AND PLAN: Acute Hypoxic Respiratory Failure s/p Tracheostomy Pneumonia likely Aspiration UTI Sepsis Hyponatremia Small Bowel Obstruction Ascites s/p Peritoneal drain placement Alcohol/Heroin Abuse Anemia/Thrombocytopenia Failure to Thrive Severe Protein Calorie Malnutrition Refeeding Syndrome - repeat CXR - pain control - monitor urine output, creatinine - replete lytes - continue antibiotics - off pressors, maintain MAP >65 - titrate FiO2 to keep SpO2 >90% - spontaneous breathing trials as tolerated - DVT/GI prophylaxis - continue ICU monitoring critical care time spent in reviewing chart, evaluating patient and formulating plan 35 min
--- NOTE | 2020-08-01 11:17 | PN ---
Physical Exam: SUBJECTIVE: Patient seen and examined bedside. Having some pain at sight of peg placement yesterday. No events overnight. Put back on CPAP this morning. OBJECTIVE: Vital Signs Temp Pulse Resp BP Pulse Ox 97.5 F L 108 H 19 86/68 L 100 08/01/20 10:00 08/01/20 11:00 08/01/20 11:00 08/01/20 11:00 08/01/20 11:00 GENERAL: The patient is awake, alert, and fully oriented HEAD: temporal wasting improving EYES: PERRL, EOMI. ENT: moist mucous membranes. NECK: Trach placed LUNGS: Decreased breath sounds at bases BL, worse on L side HEART: RRR, of pressors ABDOMEN: very cachectic, pig tail cath in place on right lower abdomen. EXTREMITIES: no edema, extreme muscle wasting NEUROLOGICAL: Cranial nerves II through XII grossly intact PSYCH: Normal mood, normal affect. SKIN: Sacral ulcer stage 4. Intake & Output 07/31/20 08/01/20 23:59 07:59 Intake Total 1791.4 776 Output Total 2100 1200 Balance -308.6 -424 Intake: IV 584.4 576 D5-Ns - 1,000 ml @ 42 mls 504 504 /hr IV ASDIR [facility] Rx#: [id number] PRECEDEX 400 MCG/100 ML 64.8 72 INJECT 400 mcg In 100 ml @ 0.2 MCG/KG/HR 1.542 mls /hr IVPB TITR [facility] Rx#: [id number] Pitressin - 40 Units In 15.6 Normal Saline - 98 ml @ 2 UNITS/HR 5 mls/hr IVPB ASDIR [facility] Rx#:[id number] IVPB 400 100 Packed Cells 350 Fresh Frozen Plasma 357 Tube Irrigant (Tube 100 100 Feeding Water) Output: Gastric Drainage 100 Drainage 1400 600 Right Abdomen 1400 600 Urine 700 500 Mistry 700 500 Other: Voiding Method Indwelling Catheter Indwelling Catheter Bowel Movement Yes No ` Laboratory Results - last 24 hr 07/27/20 07/31/20 07/31/20 16:15 10:45 10:45 WBC 10.7 H RBC 3.50 L Hgb 10.4 L Hct 31.4 L D MCV 89.7 MCH 29.9 MCHC 33.3 RDW 17.2 H Plt Count 144 D MPV 9.2 PT with INR 18.50 H INR 1.59 H PTT (Actin FS) Sodium Potassium Chloride Carbon Dioxide Anion Gap BUN Creatinine Est GFR (CKD-EPI)AfAm Est GFR (CKD-EPI)NonAf POC Glucometer Random Glucose Calcium Phosphorus Magnesium Total Bilirubin AST ALT Alkaline Phosphatase Total Protein Albumin POC Fluid pH 8.3 Fluid Glucose 113 Fluid Total Protein 1.0 Fluid Albumin 0.5 Body Fluid LDH Source 84 Fluid Amylase 29 Fluid Cholesterol 11 Fluid Triglycerides 23 07/31/20 07/31/20 08/01/20 10:45 18:47 00:00 WBC RBC Hgb Hct MCV MCH MCHC RDW Plt Count MPV PT with INR INR PTT (Actin FS) Sodium 126 L Potassium 4.2 Chloride 94 L Carbon Dioxide 26 Anion Gap 6 L BUN 18.3 H Creatinine < 0.2 L Est GFR (CKD-EPI)AfAm 196.46 Est GFR (CKD-EPI)NonAf 169.51 POC Glucometer 76 47 Random Glucose 106 Calcium 6.9 L* Phosphorus Magnesium Total Bilirubin AST ALT Alkaline Phosphatase Total Protein Albumin POC Fluid pH Fluid Glucose Fluid Total Protein Fluid Albumin Body Fluid LDH Source Fluid Amylase Fluid Cholesterol Fluid Triglycerides 08/01/20 08/01/20 08/01/20 03:28 06:10 06:10 WBC 11.1 H RBC 4.31 Hgb 12.8 Hct 38.3 D MCV 88.7 MCH 29.8 MCHC 33.5 RDW 16.9 H Plt Count 279 D MPV 7.5 D PT with INR 20.80 H INR 1.75 H PTT (Actin FS) 40.7 H Sodium Potassium Chloride Carbon Dioxide Anion Gap BUN Creatinine Est GFR (CKD-EPI)AfAm Est GFR (CKD-EPI)NonAf POC Glucometer 104 Random Glucose Calcium Phosphorus Magnesium Total Bilirubin AST ALT Alkaline Phosphatase Total Protein Albumin POC Fluid pH Fluid Glucose Fluid Total Protein Fluid Albumin Body Fluid LDH Source Fluid Amylase Fluid Cholesterol Fluid Triglycerides 08/01/20 08/01/20 06:10 06:18 WBC RBC Hgb Hct MCV MCH MCHC RDW Plt Count MPV PT with INR INR PTT (Actin FS) Sodium 137 Potassium 3.8 Chloride 104 Carbon Dioxide 26 Anion Gap 6 L BUN 13.5 Creatinine < 0.2 L Est GFR (CKD-EPI)AfAm 196.46 Est GFR (CKD-EPI)NonAf 169.51 POC Glucometer 84 Random Glucose 83 Calcium 7.4 L Phosphorus 3.2 Magnesium 2.2 Total Bilirubin 2.1 H AST 23 ALT 35 Alkaline Phosphatase 308 H Total Protein 4.8 L Albumin 2.1 L POC Fluid pH Fluid Glucose Fluid Total Protein Fluid Albumin Body Fluid LDH Source Fluid Amylase Fluid Cholesterol Fluid Triglycerides Active Medications Generic Name Dose Route Start Last Admin Trade Name Freq PRN Reason Stop Dose Admin Acetaminophen 500 mg 08/01/20 10:00 08/01/20 09:35 Ofirmev Injection - IVPB 500 mg Q6H [facility] Administration Ascorbic Acid 500 mg 07/27/20 13:00 08/01/20 10:16 Vitamin C - PO 500 mg DAILY [facility] Administration Banana Based Medical Food 1 packet 07/10/20 22:00 08/01/20 06:31 Banatrol Plus Powder Packet GT 1 packet TID [facility] Administration Dextrose 12.5 gm 07/08/20 07:08 07/31/20 06:34 D50w (Vial) - IVPUSH 12.5 gm PRN PRN Administration HYPOGLYCEMIA Folic Acid 1 mg 07/06/20 10:00 08/01/20 10:16 Folic Acid - NGT 1 mg DAILY [facility] Administration Heparin Sodium (Porcine) 5,000 unit 07/20/20 10:00 08/01/20 10:18 Heparin - SQ 5,000 unit BID [facility] Administration Hydromorphone HCl 1 mg 07/26/20 13:39 08/01/20 08:19 Dilaudid Vial - IVPUSH 1 mg Q3H PRN Administration PAIN LEVEL 7 - 10 Dexmedetomidine/Sodium Chloride 400 mcg in 100 mls @ 1.542 mls/hr 07/25/20 11:15 07/31/20 12:33 Precedex 400 Mcg/100 Ml Inject IVPB Not Given TITR [facility]UL 0.2 MCG/KG/HR Tigecycline 50 mg/ Dextrose 100 mls @ 100 mls/hr 07/28/20 10:00 08/01/20 10:22 IVPB 100 mls/hr BID [facility] Administration Protocol Dextrose/Sodium Chloride 1,000 mls @ 42 mls/hr 07/31/20 06:45 08/01/20 07:06 D5-Ns - IV Not Given ASDIR [facility] Lidocaine HCl 1 applic 07/25/20 21:50 08/01/20 09:00 Xylocaine 5% Top. Ointment TP 1 applic DAILY [facility] Administration Multi-Ingredient Ointment 1 applic 07/19/20 13:30 08/01/20 10:44 Zinc Oxide TP 1 applic DAILY [facility] Administration Multivitamins/Minerals 15 ml 07/06/20 11:45 08/01/20 10:44 Certavite-Antioxidant Liquid NGT 15 ml DAILY [facility] Administration Potassium Chloride 40 meq 07/17/20 12:30 08/01/20 10:16 Potassium Chloride Oral Liquid PO 40 meq DAILY [facility] Administration Potassium Phos/Sodium Phos 1 packet 07/09/20 14:00 08/01/20 06:31 Phos-Nak Packet - PO 1 packet TID [facility] Administration Thiamine HCl 100 mg 07/11/20 12:45 08/01/20 10:18 Vitamin B1 Injection - IVPB 100 mg DAILY [facility] Administration ASSESSMENT/PLAN: 35 yo female with PMH of malnutrition 2/2 bulimia and polysubstance use disorder, cirrhosis, & heroin abuse, in ICU with sepsis and acute hypoxic respiratory failure, now s/p trach, sp abdominal peritoneal drain, s/p peg placement. Neuro - Alert, responsive, able to communicate with writing and mouthing words - Dilaudid 1g, q3h - Dexmedetomidine CV - Septic Shock 2/2 UTI - Baseline BP with systolic 80s - off vaso, BP stable Respiratory - Acute Hypoxic Respiratory Failure, s/p Tracheostomy - Likely Aspiration Pneumonia - s/p trach on 07/25; maintain SpO2 >90% - continue daily trials of CPAP with supported breaths - Aspiration precautions - Possibly L upper lobe pneumo on CXR, repeat CXR @12PM continue to watch, if worsens consider chest tube placement GI - SBO >> resolved - Refeeding Syndrome Risk - Ascites, 2/2 to hypoalbunemia/cirrhosis - Peritoneal drain placed on 07/27 - SAAG score < 1.1 (less likely from portal HTN) - PEG Tube placed 07/31 - IV Tylenol 500 mg Q6h: keep to 2 g daily for liver disease - mistry in place - UTI Renal - Hypoalbuminemia; 2/2 severe malnutrition - Renal following (Dr. Chavez) - Na over corrected, recheck CMP @ 12 PM today ID - Septic Shock; multifactorial 2/2 UTI and likely Aspiration pneumonia - Likely Aspiration Pneumonia - Urine Cx +ESBL Klebsiella pneumo, carbapenem-resistent - S/p Vanc/Zosyn/Meropenem - currently on Tigecycline (Day 5) - ID following (Dr. Martines) Heme - Chronically Elevated PT/INR & PTT - Anemia/Thrombocytopenia, most likely 2/2 liver cirrhosis - check coags daily Psych - Hx of Alcohol/Heroin Abuse - Drug cessation counseling - bulimia/eating disorder Derm - Multiple Sacral Ulcers (stage 4) - Daily wound care, air mattress - Off-loading to all bony areas (heels, ankles, hips and tailbone) with Allevyn/Optifoam Prophylaxis - DVT ppx: BID SQH because of low bodyweight FEN - Today Na corrected from 126 >> 137, repeat BMP @ 12 PM - check and replete electrolytes as needed - Restart Perative Tube feeds, titrate up to 55 LTD - Trach - 07/25 - Pigtail catheter (07/27) drained 2050 cc over last 24hrs - Rectal tube - Mistry Dispo - Cont to monitor in ICU - vascular manager: Referral remains open with [facility]. Visit type - Emergency Visit Emergency Visit: Yes ED Registration Date: 07/01/20 Care time: The patient presented to the Emergency Department on the above date and was hospitalized for further evaluation of their emergent condition. - New Patient This patient is new to me today: No - Critical Care Critical Care patient: Yes Total Critical Care Time (in minutes): 37 Critical Care Statement: The care of this patient involved high complexity decision making to prevent further life threatening deterioration of the patient's condition and/or to evaluate & treat vital organ system(s) failure or risk of failure. - Discharge Referral Referred to [facility] No ATTENDING PHYSICIAN STATEMENT I saw and evaluated the patient. I reviewed the resident's note and discussed the case with the resident. I agree with the resident's findings and plan as documented. SUBJECTIVE: OBJECTIVE: ASSESSMENT AND PLAN:
[2020-08-01] MEDS ORDERED: LIDOCAINE HCL 1%, 10 MG/ML (20ML VIAL) ONE (12:34)
--- NOTE | 2020-08-01 12:54 | PN ---
Progress Note, Physician History of Present Illness: Pt seen and examined at bedside. She remains in the ICU. - Current Medication List Current Medications: Active Medications Acetaminophen (Ofirmev Injection -) 500 mg IVPB Q6H [facility] Last Admin: 08/01/20 09:35 Dose: 500 mg Documented by: Ascorbic Acid (Vitamin C -) 500 mg PO DAILY [facility] Last Admin: 08/01/20 10:16 Dose: 500 mg Documented by: Banana Based Medical Food (Banatrol Plus Powder Packet) 1 packet GT TID [facility] Last Admin: 08/01/20 06:31 Dose: 1 packet Documented by: Dextrose (D50w (Vial) -) 12.5 gm IVPUSH PRN PRN PRN Reason: HYPOGLYCEMIA Last Admin: 07/31/20 06:34 Dose: 12.5 gm Documented by: Folic Acid (Folic Acid -) 1 mg NGT DAILY [facility] Last Admin: 08/01/20 10:16 Dose: 1 mg Documented by: Heparin Sodium (Porcine) (Heparin -) 5,000 unit SQ BID [facility] Last Admin: 08/01/20 10:18 Dose: 5,000 unit Documented by: Hydromorphone HCl (Dilaudid Vial -) 1 mg IVPUSH Q3H PRN PRN Reason: PAIN LEVEL 7 - 10 Last Admin: 08/01/20 11:45 Dose: 1 mg Documented by: Dexmedetomidine/Sodium Chloride (Precedex 400 Mcg/100 Ml Inject) 400 mcg in 100 mls @ 1.542 mls/hr IVPB TITR [facility] Last Admin: 07/31/20 12:33 Dose: Not Given Documented by: Tigecycline 50 mg/ Dextrose 100 mls @ 100 mls/hr IVPB BID [facility]; Protocol Last Admin: 08/01/20 10:22 Dose: 100 mls/hr Documented by: Dextrose/Sodium Chloride (D5-Ns -) 1,000 mls @ 42 mls/hr IV ASDIR [facility] Last Admin: 08/01/20 07:06 Dose: Not Given Documented by: Lidocaine HCl (Xylocaine 5% Top. Ointment) 1 applic TP DAILY [facility] Last Admin: 08/01/20 09:00 Dose: 1 applic Documented by: Multi-Ingredient Ointment (Zinc Oxide) 1 applic TP DAILY [facility] Last Admin: 08/01/20 10:44 Dose: 1 applic Documented by: Multivitamins/Minerals (Certavite-Antioxidant Liquid) 15 ml NGT DAILY [facility] Last Admin: 08/01/20 10:44 Dose: 15 ml Documented by: Potassium Chloride (Potassium Chloride Oral Liquid) 40 meq PO DAILY [facility] Last Admin: 08/01/20 10:16 Dose: 40 meq Documented by: Potassium Phos/Sodium Phos (Phos-Nak Packet -) 1 packet PO TID [facility] Last Admin: 08/01/20 06:31 Dose: 1 packet Documented by: Thiamine HCl (Vitamin B1 Injection -) 100 mg IVPB DAILY [facility] Last Admin: 08/01/20 10:18 Dose: 100 mg Documented by: - Objective Vital Signs: Vital Signs Temperature 97.5 F L 08/01/20 10:00 Pulse Rate 64 08/01/20 12:00 Respiratory Rate 14 08/01/20 12:00 Blood Pressure 88/75 L 08/01/20 12:00 O2 Sat by Pulse Oximetry (%) 100 08/01/20 12:00 Constitutional: Yes: Calm Eyes: Yes: Conjunctiva Clear HENT: Yes: Atraumatic Cardiovascular: Yes: S1, S2 Respiratory: Yes: Mechanically Ventilated Gastrointestinal: Yes: Soft Genitourinary: Yes: Uribe Present Musculoskeletal: Yes: Muscle Weakness Neurological: Yes: Other (awake) Labs: CBC, BMP 08/01/20 06:10 08/01/20 06:10 INR, PTT INR 1.75 (0.83-1.09) H 08/01/20 06:10 Fibrinogen 344.0 mg/dL (238-498) 07/21/20 06:00 Problem List - Problems (1) Hypoglycemia Code(s): E16.2 - HYPOGLYCEMIA, UNSPECIFIED (2) Sepsis Code(s): A41.9 - SEPSIS, UNSPECIFIED ORGANISM Qualifiers: Sepsis type: sepsis due to unspecified organism Sepsis acute organ dysfunction status: unspecified Qualified Code(s): A41.9 - Sepsis, unspecified organism (3) Hypoalbuminemia Code(s): E88.09 - OTH DISORDERS OF PLASMA-PROTEIN METABOLISM, NEC (4) Hyponatremia Code(s): E87.1 - HYPO-OSMOLALITY AND HYPONATREMIA Assessment/Plan Current Medications Generic Name Dose Route Start Last Admin Trade Name Freq PRN Reason Stop Dose Admin Acetaminophen 500 mg 08/01/20 10:00 08/01/20 09:35 Ofirmev Injection - IVPB 500 mg Q6H [facility] Administration Ascorbic Acid 500 mg 07/27/20 13:00 08/01/20 10:16 Vitamin C - PO 500 mg DAILY [facility] Administration Banana Based Medical Food 1 packet 07/10/20 22:00 08/01/20 06:31 Banatrol Plus Powder Packet GT 1 packet TID [facility]UL Administration Dextrose 12.5 gm 07/08/20 07:08 07/31/20 06:34 D50w (Vial) - IVPUSH 12.5 gm PRN PRN Administration HYPOGLYCEMIA Folic Acid 1 mg 07/06/20 10:00 08/01/20 10:16 Folic Acid - NGT 1 mg DAILY [facility] Administration Heparin Sodium (Porcine) 5,000 unit 07/20/20 10:00 08/01/20 10:18 Heparin - SQ 5,000 unit BID [facility] Administration Hydromorphone HCl 1 mg 07/26/20 13:39 08/01/20 11:45 Dilaudid Vial - IVPUSH 1 mg Q3H PRN Administration PAIN LEVEL 7 - 10 Dexmedetomidine/Sodium Chloride 400 mcg in 100 mls @ 1.542 mls/hr 07/25/20 11:15 07/31/20 12:33 Precedex 400 Mcg/100 Ml Inject IVPB Not Given TITR RAUL 0.2 MCG/KG/HR Tigecycline 50 mg/ Dextrose 100 mls @ 100 mls/hr 07/28/20 10:00 08/01/20 10 :22 IVPB 100 mls/hr BID [facility]UL Administration Protocol Dextrose/Sodium Chloride 1,000 mls @ 42 mls/hr 07/31/20 06:45 08/01/20 07:06 D5-Ns - IV Not Given ASDIR RAUL Lidocaine HCl 1 applic 07/25/20 21:50 08/01/20 09:00 Xylocaine 5% Top. Ointment TP 1 applic DAILY [facility] Administration Multi-Ingredient Ointment 1 applic 07/19/20 13:30 08/01/20 10:44 Zinc Oxide TP 1 applic DAILY [facility] Administration Multivitamins/Minerals 15 ml 07/06/20 11:45 08/01/20 10:44 Certavite-Antioxidant Liquid NGT 15 ml DAILY [facility] Administration Potassium Chloride 40 meq 07/17/20 12:30 08/01/20 10:16 Potassium Chloride Oral Liquid PO 40 meq DAILY [facility] Administration Potassium Phos/Sodium Phos 1 packet 07/09/20 14:00 08/01/20 06:31 Phos-Nak Packet - PO 1 packet TID [facility]UL Administration Thiamine HCl 100 mg 07/11/20 12:45 08/01/20 10:18 Vitamin B1 Injection - IVPB 100 mg DAILY [facility] Administration Impression 1. azotemia 2. hyponatremia 3. hyperkalemia 4. hypotension 5. sepsis 6. sbo 7. uti 8. liver cirrhosis 9. hypoalbuminemia 10. etoh abuse 11. substance abuse 12. psoriasis 13. acute resp failure 14. malnutrition Plan - repeat bmp - urine output is increased - check urine osm - if sodium elevated give desmopressin, discussed with ICU - monitor urine output - start d5w - vent support
[2020-08-01] MEDS ORDERED: DEXTROSE 5%-WATER - 1,000 ML IV SCH ×2 (13:00→17:35)
[2020-08-01] MEDS ORDERED: MIDAZOLAM HCL 2 MG/2 ML SINGLE DOSE VIAL IVPUSH ONE (13:08)
[2020-08-01 14:00] LABS: ANION GAP 5 MMOL/L (8-16); BLOOD UREA NITROGEN 14.4 mg/dL (7-18); CHLORIDE 107 mmol/L (98-107); CO2 27 mmol/L (21-32); CREATININE < 0.2 mg/dL (0.55-1.3); GLUCOSE,RANDOM 82 mg/dL (74-106); POTASSIUM 4.5 mmol/L (3.5-5.1); SODIUM 140 mmol/L (136-145)
[2020-08-01] MEDS ORDERED: DESMOPRESSIN ACETATE 0.1 MG TABLET PO ONE ×2 (14:15→20:28)
--- NOTE | 2020-08-01 18:02 | PATH ---
Cytology Non-Gynecological Report Patient Name: MARILIN MADRID [facility]. Rec. #: [id number] /Age/Gender: 1985 (Age: 35) / F Account: [id number] Location: ICU [facility] Taken: 07/27/2020 Received: 07/30/2020 Reported: 08/01/2020 Physicians: Pepe Wiggins M.D. Specimen(s) Received PERITONEAL FLUID Clinical History Ascites, cirrhosis Final Diagnosis PERIBRONCHIAL FLUID, PARACENTESIS: SATISFACTORY FOR EVALUATION NEGATIVE FOR MALIGNANT CELLS. BLOOD AND RARE MACROPHAGES PRESENT. Electronically Signed Patrick Enmaorado M.D. Gross Description Approximately 45cc of cloudy fluid received fixed in 50% alcohol. One cytospin and one cellblock prepared
--- NOTE | 2020-08-01 18:23 | PROC ---
Chest Tube Insertion Consent on Chart: Yes Risks and Benefits Explained: Yes Chest tube #1 Indication: Pneumothorax Chest Tube Location: Left Lateral Anesthesia: 1% Lidocaine Size (Fr.): 8 Sterile Technique: Yes Tube Sutured to Skin: Yes Vaseline gauze dressing: Yes Chest Tube Collection System: Pleur-Evac Suction: Yes Drainage, Color/Appearance: Serosanguinous
[2020-08-01 20:25] LABS: ANION GAP 6 MMOL/L (8-16); BLOOD UREA NITROGEN 14.2 mg/dL (7-18); CHLORIDE 108 mmol/L (98-107); CO2 26 mmol/L (21-32); GLUCOSE,RANDOM 66 mg/dL (74-106); POTASSIUM 4.4 mmol/L (3.5-5.1); SODIUM 140 mmol/L (136-145)
[2020-08-01] MEDS ORDERED: PT OWN MED DRAWER 7, Y5N ONE (21:01)
[2020-08-01 21:07] LABS: CREATININE < 5.5 mg/dL (0.55-1.3)
[2020-08-01] MEDS: VASOPRESSIN 40 UNITS in SODIUM CHLORIDE 98 ML IVPB SCH (21:45)
[2020-08-01] MEDS ORDERED: VASOPRESSIN 20 UNITS/ML VIAL IV ONE (21:59)
--- NOTE | 2020-08-01 22:01 | PN ---
Progress Note, Physician History of Present Illness: Pt awake - Current Medication List Current Medications: Active Medications Acetaminophen (Ofirmev Injection -) 500 mg IVPB Q6H [facility] Last Admin: 08/01/20 21:14 Dose: 500 mg Documented by: Ascorbic Acid (Vitamin C -) 500 mg PO DAILY [facility] Last Admin: 08/01/20 10:16 Dose: 500 mg Documented by: Banana Based Medical Food (Banatrol Plus Powder Packet) 1 packet GT TID [facility] Last Admin: 08/01/20 21:13 Dose: 1 packet Documented by: Dextrose (D50w (Vial) -) 12.5 gm IVPUSH PRN PRN PRN Reason: HYPOGLYCEMIA Last Admin: 07/31/20 06:34 Dose: 12.5 gm Documented by: Folic Acid (Folic Acid -) 1 mg NGT DAILY [facility] Last Admin: 08/01/20 10:16 Dose: 1 mg Documented by: Heparin Sodium (Porcine) (Heparin -) 5,000 unit SQ BID [facility] Last Admin: 08/01/20 21:19 Dose: 5,000 unit Documented by: Hydromorphone HCl (Dilaudid Vial -) 1 mg IVPUSH Q3H PRN PRN Reason: PAIN LEVEL 7 - 10 Last Admin: 08/01/20 21:18 Dose: 1 mg Documented by: Dexmedetomidine/Sodium Chloride (Precedex 400 Mcg/100 Ml Inject) 400 mcg in 100 mls @ 1.542 mls/hr IVPB TITR [facility] Last Admin: 08/01/20 18:17 Dose: 0.7 mcg/kg/hr, 5.398 mls/hr Documented by: Tigecycline 50 mg/ Dextrose 100 mls @ 100 mls/hr IVPB BID [facility]; Protocol Last Admin: 08/01/20 21:13 Dose: 100 mls/hr Documented by: Dextrose (D5w -) 1,000 mls @ 75 mls/hr IV ASDIR [facility] Last Admin: 08/01/20 18:00 Dose: 75 mls/hr Documented by: Vasopressin 40 units/ Sodium (Chloride) 100 mls @ 5 mls/hr IVPB TITR [facility]; Protocol Lidocaine HCl (Xylocaine 5% Top. Ointment) 1 applic TP DAILY [facility] Last Admin: 08/01/20 09:00 Dose: 1 applic Documented by: Multi-Ingredient Ointment (Zinc Oxide) 1 applic TP DAILY [facility] Last Admin: 08/01/20 10:44 Dose: 1 applic Documented by: Multivitamins/Minerals (Certavite-Antioxidant Liquid) 15 ml NGT DAILY [facility] Last Admin: 08/01/20 10:44 Dose: 15 ml Documented by: Potassium Chloride (Potassium Chloride Oral Liquid) 40 meq PO DAILY [facility] Last Admin: 08/01/20 10:16 Dose: 40 meq Documented by: Potassium Phos/Sodium Phos (Phos-Nak Packet -) 1 packet PO TID [facility] Last Admin: 08/01/20 21:13 Dose: 1 packet Documented by: Thiamine HCl (Vitamin B1 Injection -) 100 mg IVPB DAILY [facility] Last Admin: 08/01/20 10:18 Dose: 100 mg Documented by: - Objective Vital Signs: Vital Signs Temperature 95.1 F L 08/01/20 19:15 Pulse Rate 63 08/01/20 18:00 Respiratory Rate 15 08/01/20 20:33 Blood Pressure 88/62 L 08/01/20 19:15 O2 Sat by Pulse Oximetry (%) 98 08/01/20 20:33 Labs: CBC, BMP 08/01/20 06:10 08/01/20 19:20 INR, PTT INR 1.75 (0.83-1.09) H 08/01/20 06:10 Fibrinogen 344.0 mg/dL (238-498) 07/21/20 06:00 Problem List - Problems (1) Respiratory failure Code(s): J96.90 - RESPIRATORY FAILURE, UNSP, UNSP W HYPOXIA OR HYPERCAPNIA (2) Sepsis Code(s): A41.9 - SEPSIS, UNSPECIFIED ORGANISM Qualifiers: Sepsis type: sepsis due to unspecified organism Sepsis acute organ dysfunction status: unspecified Qualified Code(s): A41.9 - Sepsis, unspecified organism (3) Anemia Code(s): D64.9 - ANEMIA, UNSPECIFIED (4) At risk for electrolyte imbalance Code(s): Z91.89 - OTH PERSONAL RISK FACTORS, NOT ELSEWHERE CLASSIFIED (5) SBO (small bowel obstruction) Code(s): K56.609 - UNSP INTESTNL OBST, UNSP TO PARTIAL VERSUS COMPLETE OBST (6) Liver cirrhosis, alcoholic Code(s): K70.30 - ALCOHOLIC CIRRHOSIS OF LIVER WITHOUT ASCITES (7) Hypoalbuminemia Code(s): E88.09 - OT DISORDERS OF PLASMA-PROTEIN METABOLISM, NEC (8) Substance abuse Code(s): F19.10 - OTHER PSYCHOACTIVE SUBSTANCE ABUSE, UNCOMPLICATED (9) Cachexia Code(s): R64 - CACHEXIA (10) Severe malnutrition Code(s): E43 - UNSPECIFIED SEVERE PROTEIN-CALORIE MALNUTRITION (11) Sacral ulcer Code(s): L98.429 - NON-PRESSURE CHRONIC ULCER OF BACK WITH UNSPECIFIED SEVERITY
[2020-08-02] MEDS: HYDROmorphone HCl 2 MG/ML VIAL IVPUSH PRN ×3 (00:21→12:30)
[2020-08-02] MEDS: ACETAMINOPHEN 1000 MG/100 ML VIAL (NON FORMULARY) IVPB SCH ×4 (04:40→21:52)
[2020-08-02] MEDS: BANATROL PLUS POWDER PACKET GT SCH ×3 (05:48→21:33)
[2020-08-02] MEDS: NAPH,MB-DB/K PH,MBDB POWDER PACKET PO SCH ×3 (05:48→21:33)
[2020-08-02 06:51] LABS: HEMATOCRIT 31.9 % (32.4-45.2); HEMOGLOBIN 10.9 GM/dL (10.7-15.3); MCH 30.2 pg (25.7-33.7); MCHC 34.2 g/dl (32.0-36.0); MEAN CELL VOLUME 88.5 fl (80-96); MEAN PLT VOLUME 7.7 fl (7.5-11.1); PLATELET COUNT 225 K/MM3 (134-434); RBC 3.61 M/mm3 (3.60-5.2); RDW 17.6 % (11.6-15.6); WHITE BLOOD COUNT 9.9 K/mm3 (4.0-10.0)
[2020-08-02 07:00] LABS: INR 2.04 (0.83-1.09); PROTHROMBIN TIME (PATIENT) 24.3 SEC (9.7-13.0)
[2020-08-02 07:02] LABS: ACTIVATED PTT 47.8 SECONDS (25.2-36.5)
[2020-08-02 07:29] LABS: ALBUMIN 1.6 g/dl (3.4-5.0); ANION GAP 6 MMOL/L (8-16); BLOOD UREA NITROGEN 13.7 mg/dL (7-18); CHLORIDE 103 mmol/L (98-107); CO2 25 mmol/L (21-32); GLUCOSE,RANDOM 83 mg/dL (74-106); MAGNESIUM 1.8 mg/dL (1.8-2.4); POTASSIUM 3.9 mmol/L (3.5-5.1); SODIUM 134 mmol/L (136-145)
[2020-08-02 07:34] LABS: ALK PHOS 308 U/L (45-117); BILIRUBIN,TOTAL 1.4 mg/dL (0.2-1); CREATININE < 0.2 mg/dL (0.55-1.3); PHOSPHOROUS 3.2 mg/dL (2.5-4.9); SGOT/AST 33 U/L (15-37); SGPT/ALT 32 U/L (13-61); TOT PROT 3.8 g/dl (6.4-8.2)
[2020-08-02 07:35] LABS: CALCIUM 6.9 mg/dL (8.5-10.1)
[2020-08-02] MEDS ORDERED: ACETYLCYSTEINE 20% 200MG/ML 30 ML VIAL *FOR ORAL / INH USE ONLY NEB ONE ×3 (08:50→11:30)
[2020-08-02] MEDS ORDERED: PT OWN MED DRAWER 7, Y5N ONE ×2 (09:41→21:25)
[2020-08-02] MEDS ORDERED: LIDOCAINE HCL 1%, 10 MG/ML (20ML VIAL) ONE (09:56)
[2020-08-02] MEDS ORDERED: MIDAZOLAM HCL 10 MG/10 ML VIAL IVPUSH ONE (09:58)
[2020-08-02] MEDS ORDERED: MIDAZOLAM HCL 5 MG/1 ML Single Dose Vial ONE (09:59)
--- NOTE | 2020-08-02 10:00 | PN ---
Progress Note, Physician History of Present Illness: s/p trach comfortable still with positive cx - Current Medication List Current Medications: Active Medications Acetaminophen (Ofirmev Injection -) 500 mg IVPB Q6H [facility] Last Admin: 08/02/20 04:40 Dose: 500 mg Documented by: Acetylcysteine (Mucomyst 20 Oral / Inh Use Only*) 3,000 mg NEB ONCE ONE Stop: 08/02/20 08:51 Ascorbic Acid (Vitamin C -) 500 mg PO DAILY [facility] Last Admin: 08/01/20 10:16 Dose: 500 mg Documented by: Banana Based Medical Food (Banatrol Plus Powder Packet) 1 packet GT TID [facility] Last Admin: 08/02/20 05:48 Dose: 1 packet Documented by: Dextrose (D50w (Vial) -) 12.5 gm IVPUSH PRN PRN PRN Reason: HYPOGLYCEMIA Last Admin: 07/31/20 06:34 Dose: 12.5 gm Documented by: Fentanyl (Sublimaze Injection -) 50 mcg IVPUSH ONCE ONE Stop: 08/02/20 09:58 Folic Acid (Folic Acid -) 1 mg NGT DAILY [facility] Last Admin: 08/01/20 10:16 Dose: 1 mg Documented by: Heparin Sodium (Porcine) (Heparin -) 5,000 unit SQ BID [facility] Last Admin: 08/01/20 21:19 Dose: 5,000 unit Documented by: Hydromorphone HCl (Dilaudid Vial -) 1 mg IVPUSH Q3H PRN PRN Reason: PAIN LEVEL 7 - 10 Last Admin: 08/02/20 05:49 Dose: 1 mg Documented by: Dexmedetomidine/Sodium Chloride (Precedex 400 Mcg/100 Ml Inject) 400 mcg in 100 mls @ 1.542 mls/hr IVPB TITR [facility] Last Admin: 08/01/20 18:17 Dose: 0.7 mcg/kg/hr, 5.398 mls/hr Documented by: Tigecycline 50 mg/ Dextrose 100 mls @ 100 mls/hr IVPB BID [facility]; Protocol Last Admin: 08/01/20 21:13 Dose: 100 mls/hr Documented by: Vasopressin 40 units/ Sodium (Chloride) 100 mls @ 5 mls/hr IVPB TITR [facility]; Protocol Last Admin: 08/01/20 21:45 Dose: 1 units/hr, 2.5 mls/hr Documented by: Lidocaine HCl (Xylocaine 5% Top. Ointment) 1 applic TP DAILY [facility] Last Admin: 08/01/20 09:00 Dose: 1 applic Documented by: Midazolam HCl (Versed -) 4 mg IVPUSH ONCE ONE Stop: 08/02/20 09:59 Multi-Ingredient Ointment (Zinc Oxide) 1 applic TP DAILY [facility] Last Admin: 08/01/20 10:44 Dose: 1 applic Documented by: Multivitamins/Minerals (Certavite-Antioxidant Liquid) 15 ml NGT DAILY [facility] Last Admin: 08/01/20 10:44 Dose: 15 ml Documented by: Potassium Chloride (Potassium Chloride Oral Liquid) 40 meq PO DAILY [facility] Last Admin: 08/01/20 10:16 Dose: 40 meq Documented by: Potassium Phos/Sodium Phos (Phos-Nak Packet -) 1 packet PO TID [facility] Last Admin: 08/02/20 05:48 Dose: 1 packet Documented by: Thiamine HCl (Vitamin B1 Injection -) 100 mg IVPB DAILY [facility] Last Admin: 08/01/20 10:18 Dose: 100 mg Documented by: - Objective Vital Signs: Vital Signs Temperature 99 F 08/02/20 08:00 Pulse Rate 62 08/02/20 08:14 Respiratory Rate 15 08/02/20 09:00 Blood Pressure 133/85 08/02/20 08:00 O2 Sat by Pulse Oximetry (%) 99 08/02/20 09:00 Constitutional: Yes: Other Cardiovascular: Yes: S1, S2 Respiratory: Yes: Mechanically Ventilated, Other (trach) Gastrointestinal: Yes: Normal Bowel Sounds, Soft Musculoskeletal: Yes: WNL Extremities: Yes: WNL Neurological: Yes: Alert Psychiatric: Yes: Alert Labs: CBC, BMP 08/02/20 06:05 08/02/20 06:05 INR, PTT INR 2.04 (0.83-1.09) H 08/02/20 06:05 Fibrinogen 344.0 mg/dL (238-498) 07/21/20 06:00 Assessment/Plan Pneumonia likely Aspiration UTI Sepsis Hyponatremia SBO resolving Alcohol/Heroin Abuse Anemia Failure to Thrive Severe Protein Calorie Malnutrition uti sacral wounds plan continue abx nutrition as per icu vent mgmt repeat cx if needed close watch cc 38 min
[2020-08-02] MEDS: POTASSIUM CHLORIDE ORAL LIQUID 20 MEQ/15 ML PO SCH (10:22)
[2020-08-02] MEDS: MULTIVIT-MINERALS ORAL LIQUID NGT SCH (10:22)
[2020-08-02] MEDS: THIAMINE HCL 200 MG/2 ML VIAL IVPB SCH (10:23)
[2020-08-02] MEDS: TIGECYCLINE 50 MG in DEXTROSE 5%-WATER - 100 ML IVPB SCH ×2 (10:24→21:32)
[2020-08-02] MEDS: HEPARIN NA (PORCINE) 5,000 UNITS/ML 1ML VIAL SQ SCH ×2 (10:25→21:33)
[2020-08-02] MEDS: ASCORBIC ACID 500 MG TABLET (FP) PO SCH (10:25)
[2020-08-02] MEDS: FOLIC ACID 1 MG TABLET (FP) NGT SCH (10:25)
[2020-08-02] MEDS: LIDOCAINE HCL 5% TOP OINTMENT 50 GM TUBE TP SCH (10:29)
[2020-08-02] MEDS: ZINC OXIDE 20% TOPICAL OINTMENT 30 GM TUBE TP SCH (10:30)
--- NOTE | 2020-08-02 11:04 | PN ---
Teaching Attending Note Name of Resident: Yadira Hamilton ATTENDING PHYSICIAN STATEMENT I saw and evaluated the patient. I reviewed the resident's note and discussed the case with the resident. I agree with the resident's findings and plan as documented. SUBJECTIVE: Pt seen and examined in the ICU. Vented, awake. AM CXR still with left sided pneumothorax. Pigtail upsized to 14Fr. OBJECTIVE: Vital Signs Period Temp Pulse Resp BP Sys/Campbell Pulse Ox Last 24 Hr 95.1 F-99 F 47-90 14-17 65-133/41-85 94-100 Intake & Output 07/30/20 07/31/20 08/01/20 08/02/20 23:59 23:59 23:59 23:59 Intake Total 3155.8 3421.4 1763.8 1042.9 Output Total 1400 2550 1690 700 Balance 1755.8 871.4 73.8 342.9 Weight 33.1 kg 33.566 kg 34.4 kg Gen: vented, cachectic Heart: RRR Lung: scattered rhonchi Abd: soft, nontender, +ascites Ext: no edema CBC, BMP 08/02/20 06:05 08/02/20 06:05 Active Medications Acetaminophen (Ofirmev Injection -) 500 mg IVPB Q6H [facility] Last Admin: 08/02/20 10:26 Dose: 500 mg Documented by: Acetylcysteine (Mucomyst 20 Oral / Inh Use Only*) 20 mg NEB ONCE ONE Stop: 08/02/20 08:51 Ascorbic Acid (Vitamin C -) 500 mg PO DAILY [facility] Last Admin: 08/02/20 10:25 Dose: 500 mg Documented by: Banana Based Medical Food (Banatrol Plus Powder Packet) 1 packet GT TID [facility] Last Admin: 08/02/20 05:48 Dose: 1 packet Documented by: Dextrose (D50w (Vial) -) 12.5 gm IVPUSH PRN PRN PRN Reason: HYPOGLYCEMIA Last Admin: 07/31/20 06:34 Dose: 12.5 gm Documented by: Fentanyl (Sublimaze Injection -) 50 mcg IVPUSH ONCE ONE Stop: 08/02/20 09:58 Last Admin: 08/02/20 10:21 Dose: 50 mcg Documented by: Folic Acid (Folic Acid -) 1 mg NGT DAILY [facility] Last Admin: 08/02/20 10:25 Dose: 1 mg Documented by: Heparin Sodium (Porcine) (Heparin -) 5,000 unit SQ BID [facility] Last Admin: 08/02/20 10:25 Dose: 5,000 unit Documented by: Hydromorphone HCl (Dilaudid Vial -) 1 mg IVPUSH Q3H PRN PRN Reason: PAIN LEVEL 7 - 10 Last Admin: 08/02/20 05:49 Dose: 1 mg Documented by: Dexmedetomidine/Sodium Chloride (Precedex 400 Mcg/100 Ml Inject) 400 mcg in 100 mls @ 1.542 mls/hr IVPB TITR [facility] Last Admin: 08/01/20 18:17 Dose: 0.7 mcg/kg/hr, 5.398 mls/hr Documented by: Tigecycline 50 mg/ Dextrose 100 mls @ 100 mls/hr IVPB BID [facility]; Protocol Last Admin: 08/02/20 10:24 Dose: 100 mls/hr Documented by: Vasopressin 40 units/ Sodium (Chloride) 100 mls @ 5 mls/hr IVPB TITR [facility]; Protocol Last Admin: 08/01/20 21:45 Dose: 1 units/hr, 2.5 mls/hr Documented by: Lidocaine HCl (Xylocaine 5% Top. Ointment) 1 applic TP DAILY [facility] Last Admin: 08/02/20 10:29 Dose: 1 applic Documented by: Midazolam HCl (Versed -) 4 mg IVPUSH ONCE ONE Stop: 08/02/20 09:59 Last Admin: 08/02/20 10:21 Dose: 4 mg Documented by: Multi-Ingredient Ointment (Zinc Oxide) 1 applic TP DAILY [facility] Last Admin: 08/02/20 10:30 Dose: 1 applic Documented by: Multivitamins/Minerals (Certavite-Antioxidant Liquid) 15 ml NGT DAILY [facility] Last Admin: 08/02/20 10:22 Dose: 15 ml Documented by: Potassium Chloride (Potassium Chloride Oral Liquid) 40 meq PO DAILY [facility] Last Admin: 08/02/20 10:22 Dose: 40 meq Documented by: Potassium Phos/Sodium Phos (Phos-Nak Packet -) 1 packet PO TID [facility] Last Admin: 08/02/20 05:48 Dose: 1 packet Documented by: Thiamine HCl (Vitamin B1 Injection -) 100 mg IVPB DAILY [facility] Last Admin: 08/02/20 10:23 Dose: 100 mg Documented by: ASSESSMENT AND PLAN: Acute Hypoxic Respiratory Failure s/p Tracheostomy Pneumonia likely Aspiration UTI Sepsis Hyponatremia Small Bowel Obstruction Ascites s/p Peritoneal drain placement Alcohol/Heroin Abuse Anemia/Thrombocytopenia Failure to Thrive Severe Protein Calorie Malnutrition Refeeding Syndrome - repeat CXR - pain control - monitor urine output, creatinine - replete lytes - continue antibiotics - off pressors, maintain MAP >65 - titrate FiO2 to keep SpO2 >90% - spontaneous breathing trials as tolerated - DVT/GI prophylaxis - continue ICU monitoring critical care time spent in reviewing chart, evaluating patient and formulating plan 35 min
--- NOTE | 2020-08-02 11:25 | PROC ---
Chest Tube Insertion Consent on Chart: Yes Risks and Benefits Explained: Yes Chest tube #1 Indication: Pneumothorax Chest Tube Location: Left Lateral Anesthesia: 1% Lidocaine Size (Fr.): 14 Sterile Technique: Yes Tube Sutured to Skin: Yes Vaseline gauze dressing: No Chest Tube Collection System: Pleur-Evac Suction: Yes Drainage, Color/Appearance: Serosanguinous Remarks: Replaced 08/01 pigtail with a size 14 fr today
--- NOTE | 2020-08-02 11:36 | PN ---
Physical Exam: SUBJECTIVE: Patient seen and examined bedside. Had low pressure overnight and had to be placed back on vaso. Patient complained of having trouble breathing and having to suction a lot of mucous out of her trach overnight. OBJECTIVE: Vital Signs Temp Pulse Resp BP Pulse Ox 99 F 62 15 133/85 99 08/02/20 08:00 08/02/20 08:14 08/02/20 09:00 08/02/20 08:00 08/02/20 09:00 GENERAL: The patient is awake, alert, and fully oriented HEAD: temporal wasting improving EYES: PERRL, EOMI. ENT: moist mucous membranes. NECK: Trach placed LUNGS: Decreased breath sounds at bases BL, worse on L side HEART: RRR, s1 ,s2 ABDOMEN: very cachectic, pig tail cath in place on right lower abdomen. EXTREMITIES: no edema, extreme muscle wasting NEUROLOGICAL: Cranial nerves II through XII grossly intact PSYCH: Normal mood, normal affect. SKIN: Sacral ulcer stage 4. Pressure ulcer on Left ear Intake & Output 08/01/20 08/02/20 23:59 07:59 Intake Total 987.8 1042.9 Output Total 90 700 Balance 897.8 342.9 Weight 75 lb 13.424 oz Intake: IV 517.8 838.9 D5w - 1,000 ml @ 42 mls/ 378 hr IV ASDIR RAUL Rx#: [id number] D5w - 1,000 ml @ 75 mls/ 75 770 hr IV ASDIR RAUL Rx#: [id number] PRECEDEX 400 MCG/100 ML 64.8 61 INJECT 400 mcg In 100 ml @ 0.2 MCG/KG/HR 1.542 mls /hr IVPB TITR RAUL Rx#: [id number] Pitressin - 40 Units In 7.9 Normal Saline - 98 ml @ 2 UNITS/HR 5 mls/hr IVPB TITR RAUL Rx#:[id number] IVPB 100 204 Tube Feeding 90 Tube Irrigant (Tube 280 Feeding Water) Output: Chest Tube Drainage 10 0 Left Lateral Chest 10 0 Gastric Drainage 20 Drainage 60 0 Right Abdomen 60 0 Urine 700 Mistry 700 Other: Voiding Method Indwelling Catheter Bowel Movement Yes Yes # Bowel Movements 1 1 Weight Measurement Method [facility] Results WBC 9.9 K/mm3 (4.0-10.0) 08/02/20 06:05 RBC 3.61 M/mm3 (3.60-5.2) 08/02/20 06:05 Hgb 10.9 GM/dL (10.7-15.3) 08/02/20 06:05 Hct 31.9 % (32.4-45.2) L D 08/02/20 06:05 MCV 88.5 fl (80-96) 08/02/20 06:05 MCH 30.2 pg (25.7-33.7) 08/02/20 06:05 MCHC 34.2 g/dl (32.0-36.0) 08/02/20 06:05 RDW 17.6 % (11.6-15.6) H 08/02/20 06:05 Plt Count 225 K/MM3 (134-434) 08/02/20 06:05 MPV 7.7 fl (7.5-11.1) 08/02/20 06:05 Absolute Neuts (auto) 6.7 K/mm3 (1.5-8.0) 07/29/20 05:00 Total Counted 100 07/04/20 10:45 Neutrophils % 87.1 % (42.8-82.8) H 07/29/20 05:00 Neutrophils % (Manual) 82.7 % (42.8-82.8) 07/18/20 06:00 Band Neutrophils % 2.7 % 07/18/20 06:00 Lymphocytes % 7.0 % (8-40) L D 07/29/20 05:00 Lymphocytes % (Manual) 10.9 % (8-40) D 07/18/20 06:00 Monocytes % 5.2 % (3.8-10.2) 07/29/20 05:00 Monocytes % (Manual) 4 % (3.8-10.2) 07/18/20 06:00 Eosinophils % 0.6 % (0-4.5) 07/29/20 05:00 Eosinophils % (Manual) 0.0 % (0-4.5) 07/18/20 06:00 Basophils % 0.1 % (0-2.0) 07/29/20 05:00 Basophils % (Manual) 0.0 % (0-2.0) 07/18/20 06:00 Myelocytes % (Man) 0 % (0-2) 07/18/20 06:00 Promyelocytes % (Man) 0 % (0-2) 07/18/20 06:00 Blast Cells % (Manual) 0 % (0-0) 07/18/20 06:00 Nucleated RBC % 0 % (0-0) 07/29/20 05:00 Metamyelocytes 0 % (0-2) 07/18/20 06:00 Hypochromia 0 07/18/20 06:00 Platelet Estimate Decreased 07/18/20 06:00 Platelet Comment No clotting detected 07/02/20 00:54 Platelet Comment No clumping noted 07/02/20 00:54 Polychromasia 1+ 07/18/20 06:00 Poikilocytosis 2+ 07/16/20 05:30 Anisocytosis 1+ 07/18/20 06:00 Microcytosis 2+ 07/16/20 05:30 Macrocytosis 0 07/18/20 06:00 Tear Drop Cells 1+ 07/02/20 06:50 Ovalocytes 1+ 07/02/20 06:50 Ho Cells 1+ 07/18/20 06:00 Acanthocytes (Spur) 1+ 07/16/20 05:30 Fragmented RBCs 1+ 07/18/20 06:00 Schistocytes 2+ 07/16/20 05:30 Retic Count 4.15 % (0.5-1.5) H 07/20/20 06:00 Haptoglobin 148 mg/dL (33-278) 07/20/20 15:45 PT with INR 24.30 SEC (9.7-13.0) H 08/02/20 06:05 INR 2.04 (0.83-1.09) H 08/02/20 06:05 PTT (Actin FS) 47.8 SECONDS (25.2-36.5) H 08/02/20 06:05 Fibrinogen 344.0 mg/dL (238-498) 07/21/20 06:00 D-Dimer 1728 ng/ml (0-500) H 07/20/20 13:00 Anticoagulation Therapy No Result Required. 07/23/20 05:20 Puncture Site Right brachial 07/23/20 05:20 Patient Temperature No Result Required. 07/23/20 05:20 ABG pH 7.472 (7.350-7.450) H 07/23/20 05:20 ABG pCO2 26.50 mmHg (35-45) L 07/23/20 05:20 ABG pO2 142.3 mmHg (80-100) H 07/23/20 05:20 ABG HCO3 18.9 mmol/L (22-27) L 07/23/20 05:20 ABG O2 Sat (Measured) 99.0 mmHg (95-98) H 07/23/20 05:20 ABG O2 Content No Result Required. 07/23/20 05:20 ABG Base Excess -4.1 mmol/L (-2-2) L 07/23/20 05:20 Yandel Test Positive 07/23/20 05:20 VBG pH 7.377 (7.310-7.410) 07/01/20 15:43 POC VBG pCO2 40.1 mmHg (38-52) 07/01/20 15:43 POC VBG pO2 42.4 mmHg (28-48) 07/01/20 15:43 VBG HCO3 23.0 mmol/L (23-29) 07/01/20 15:43 VBG O2 Sat (Meet) 77.2 % (70-80) 07/01/20 15:43 VBG Base Excess -2.0 mmol/L (-2-2) 07/01/20 15:43 Patient On Oxygen Yes 07/23/20 05:20 O2 Delivery Device Vent 07/23/20 05:20 Oxygen Flow Rate 40% 07/23/20 05:20 Vent Mode A/c 07/23/20 05:20 Vent Rate 14 07/23/20 05:20 Mechanical Rate Yes 07/23/20 05:20 PEEP 5.0 cmH2O 07/23/20 05:20 Pressure Support Vent 350 07/23/20 05:20 Sodium 134 mmol/L (136-145) L 08/02/20 06:05 Potassium 3.9 mmol/L (3.5-5.1) 08/02/20 06:05 Chloride 103 mmol/L (98-107) 08/02/20 06:05 Carbon Dioxide 25 mmol/L (21-32) 08/02/20 06:05 Anion Gap 6 MMOL/L (8-16) L 08/02/20 06:05 BUN 13.7 mg/dL (7-18) 08/02/20 06:05 Creatinine < 0.2 mg/dL (0.55-1.3) L 08/02/20 06:05 Est GFR (CKD-EPI)AfAm 196.46 08/02/20 06:05 Est GFR (CKD-EPI)NonAf 169.51 08/02/20 06:05 POC Glucometer 74 UNITS (80-120) 08/02/20 06:17 Random Glucose 83 mg/dL (74-106) 08/02/20 06:05 Lactic Acid 1.6 mmol/L (0.4-2.0) 07/24/20 02:15 Calcium 6.9 mg/dL (8.5-10.1) L* 08/02/20 06:05 Phosphorus 3.2 mg/dL (2.5-4.9) 08/02/20 06:05 Magnesium 1.8 mg/dL (1.8-2.4) 08/02/20 06:05 Iron 23 ug/dL (50-175) L 07/20/20 06:00 TIBC 88 ug/dL (250-450) L 07/20/20 06:00 Iron Saturation 26 % (17.5-39) 07/20/20 06:00 Unsaturated IBC 65 ug/dL (200-275) L 07/20/20 06:00 Total Bilirubin 1.4 mg/dL (0.2-1) H 08/02/20 06:05 Direct Bilirubin 0.3 mg/dL (0.0-0.2) H 07/22/20 06:00 AST 33 U/L (15-37) 08/02/20 06:05 ALT 32 U/L (13-61) 08/02/20 06:05 Alkaline Phosphatase 308 U/L (45-117) H 08/02/20 06:05 Ammonia 38.60 umol/L (11-32) H 07/19/20 13:50 LD Total 242 U/L (84-246) 07/20/20 15:45 Creatine Kinase 38 U/L (26-192) 07/09/20 15:30 Creatine Kinase Index 5.2 % (0.0-5.0) H 07/04/20 06:25 CK-MB (CK-2) 17.0 ng/mL (0.5-3.6) H 07/04/20 06:25 Troponin I < 0.02 ng/ml (0.00-0.05) 07/01/20 14:50 B-Natriuretic Peptide 32144.8 pg/ml (5-125) H 07/04/20 06:25 Total Protein 3.8 g/dl (6.4-8.2) L 08/02/20 06:05 Albumin 1.6 g/dl (3.4-5.0) L 08/02/20 06:05 Tumor Marker AFP 1.8 ng/ml (0.0-8.3) 07/07/20 12:00 Vitamin B12 2423 pg/ml (193-986) H 07/04/20 06:25 Serum Folate 10 ng/mL (3.1-17.5) 07/04/20 06:25 TSH 6.61 uIU/ml (0.358-3.74) H 07/13/20 05:30 Free T4 0.46 ng/dl (0.76-1.46) L 07/13/20 05:30 Free T3 1.0 pg/ml (2.0-4.4) L 07/13/20 05:30 Serum , Qual Negative 07/01/20 17:00 Urine Color Dk yellow 07/24/20 01:31 Urine Appearance Turbid 07/24/20 01:31 Urine pH 5.5 (5.0-8.0) D 07/24/20 01:31 Ur Specific Laura 1.028 (1.010-1.035) 07/24/20 01:31 Urine Protein 1+ (NEGATIVE) H 07/24/20 01:31 Urine Glucose (UA) Negative (NEGATIVE) 07/24/20 01:31 Urine Ketones Negative (NEGATIVE) 07/24/20 01:31 Urine Blood 3+ (NEGATIVE) H 07/24/20 01:31 Urine Nitrite Positive (NEGATIVE) H 07/24/20 01:31 Urine Bilirubin Negative (NEGATIVE) 07/24/20 01:31 Urine Urobilinogen 0.2 mg/dL (0.2-1.0) 07/24/20 01:31 Ur Leukocyte Esterase 3+ (NEGATIVE) H 07/24/20 01:31 Urine WBC (Auto) 1786 /uL (0-25.8) 07/24/20 01:31 Urine RBC (Auto) 291.4 /uL (0-23.9) 07/20/20 17:30 Urine Casts (Auto) 2 /uL (0-3.1) 07/24/20 01:31 U Pathogenic Cast Auto Negative /lpf (NEGATIVE) 07/20/20 17:30 U Epithel Cells (Auto) 3 /uL (0-25.1) 07/24/20 01:31 U Sm Round Cell (Auto) Non seen 07/20/20 10:15 Urine Bacteria (Auto) 2900 /uL (0-1359) 07/24/20 01:31 Urine Yeast (Auto) Negative (NEGATIVE) 07/20/20 17:30 Urine Osmolality 410 mosm/kg (300-900) 08/01/20 13:40 Ur Random Sodium 41 MMOL/L (40-220) 08/01/20 13:40 Fluid Source Peritoneal 07/27/20 16:15 POC Fluid pH 8.3 (Not Estab.) 07/27/20 16:15 Fluid WBC 59 /mm3 07/27/20 16:15 Fluid RBC 187 /mm3 07/27/20 16:15 Fluid Neutrophils 50 % 07/27/20 16:15 Fluid Lymphocytes 12 % 07/27/20 16:15 Fluid Glucose 113 mg/dL (.) 07/27/20 16:15 Fluid Total Protein 1.0 g/dL (.) 07/27/20 16:15 Fluid Albumin 0.5 g/dL (Not Estab.) 07/27/20 16:15 Body Fluid LDH Source 84 IU/L (.) 07/27/20 16:15 Fluid Amylase 29 U/L (.) 07/27/20 16:15 Fluid Cholesterol 11 mg/dL (.) 07/27/20 16:15 Fluid Triglycerides 23 mg/dL (Not Estab.) 07/27/20 16:15 Pleural Monocytes 13 % 07/27/20 16:15 Pleural Macrophages 24 % 07/27/20 16:15 Pleural Diff Comment 07/27/20 16:15 Stool Occult Blood Positive (NEGATIVE) 07/05/20 14:50 Vancomycin Pre-Dose 14.8 ug/ml (5-10) H 07/25/20 02:15 Opiates Screen Positive ng/ml (IKFDVE=463) A* 07/01/20 17:00 Methadone Screen Negative ng/ml (PXBWKZ=301) 07/01/20 17:00 Barbiturate Screen Negative ng/ml (RBCVBW=620) 07/01/20 17:00 Phencyclidine Screen Negative ng/ml (CUTOFF=25) 07/01/20 17:00 Ur Amphetamines Screen Negative ng/ml (MFNISX=016) 07/01/20 17:00 MDMA (Ecstasy) Screen Negative ng/ml (MGWBCT=477) 07/01/20 17:00 Benzodiazepines Screen Negative ng/ml (LBWMDK=639) 07/01/20 17:00 Cocaine Screen Negative ng/ml (LLMGBZ=050) 07/01/20 17:00 U Marijuana (THC) Screen Negative ng/ml (CUTOFF=50) 07/01/20 17:00 Alcohol, Quantitative < 3 mg/dL (0.0-5.0) 07/01/20 14:50 Soluble Liver Ag IgG Ab 1.4 units (0.0-20.0) 07/07/20 12:00 Smooth Musc &COMMUNICATIONS ASSISTANT Intrp 4 Units (0-19) 07/07/20 12:00 COVID-19 (ALYSIA) Not detected (Not Detected) 07/01/20 15:14 Hep A IgM Ab Confirm Negative (Negative) 07/07/20 12:00 Hepatitis A Ab Total Negative (Negative) 07/07/20 12:00 Hep Bs Antigen Negative (Negative) 07/07/20 12:00 Hep Bs Antibody Non reactive (.) 07/07/20 12:00 Hep B Core Total Ab Negative (Negative) 07/07/20 12:00 Hep B Core IgM Ab Negative (Negative) 07/07/20 12:00 Hepatitis Be Antibody Negative (Negative) 07/07/20 12:00 Hepatitis Be Antigen Negative (Negative) 07/07/20 12:00 Hepatitis C Genotype (.) 07/07/20 12:00 HIV Ag/Ab Combo Qual Negative (NEGATIVE) 07/02/20 00:54 Blood Type O POSITIVE 07/30/20 08:30 Antibody Screen Negative 07/30/20 08:30 Crossmatch See Detail 07/30/20 08:30 Active Medications Generic Name Dose Route Start Last Admin Trade Name Freq PRN Reason Stop Dose Admin Acetaminophen 500 mg 08/01/20 10:00 08/02/20 10:26 Ofirmev Injection - IVPB 500 mg Q6H RAUL Administration Acetylcysteine 600 mg 08/02/20 08:50 Mucomyst 20 Oral / Inh Use Only* NEB 08/02/20 08:51 ONCE ONE Albuterol Sulfate 1 amp 08/02/20 11:21 Ventolin 0.5% - NEB 08/02/20 11:22 ONCE ONE Ascorbic Acid 500 mg 07/27/20 13:00 08/02/20 10:25 Vitamin C - PO 500 mg DAILY RAUL Administration Banana Based Medical Food 1 packet 07/10/20 22:00 08/02/20 05:48 Banatrol Plus Powder Packet GT 1 packet TID RAUL Administration Dextrose 12.5 gm 07/08/20 07:08 07/31/20 06:34 D50w (Vial) - IVPUSH 12.5 gm PRN PRN Administration HYPOGLYCEMIA Folic Acid 1 mg 07/06/20 10:00 08/02/20 10:25 Folic Acid - NGT 1 mg DAILY RAUL Administration Heparin Sodium (Porcine) 5,000 unit 07/20/20 10:00 08/02/20 10:25 Heparin - SQ 5,000 unit BID RAUL Administration Hydromorphone HCl 1 mg 07/26/20 13:39 08/02/20 05:49 Dilaudid Vial - IVPUSH 1 mg Q3H PRN Administration PAIN LEVEL 7 - 10 Dexmedetomidine/Sodium Chloride 400 mcg in 100 mls @ 1.542 mls/hr 07/25/20 11:15 08/01/20 18:17 Precedex 400 Mcg/100 Ml Inject IVPB 0.7 mcg/kg/hr TITR RAUL 5.398 mls/hr Administration 0.2 MCG/KG/HR Tigecycline 50 mg/ Dextrose 100 mls @ 100 mls/hr 07/28/20 10:00 08/02/20 10:24 IVPB 100 mls/hr BID RAUL Administration Protocol Vasopressin 40 units/ Sodium 100 mls @ 5 mls/hr 08/01/20 21:30 08/01/20 21:45 Chloride IVPB 1 units/hr TITR RAUL 2.5 mls/hr Administration Protocol 2 UNITS/HR Lidocaine HCl 1 applic 07/25/20 21:50 08/02/20 10:29 Xylocaine 5% Top. Ointment TP 1 applic DAILY RAUL Administration Multi-Ingredient Ointment 1 applic 07/19/20 13:30 08/02/20 10:30 Zinc Oxide TP 1 applic DAILY RAUL Administration Multivitamins/Minerals 15 ml 07/06/20 11:45 08/02/20 10:22 Certavite-Antioxidant Liquid NGT 15 ml DAILY RAUL Administration Potassium Chloride 40 meq 07/17/20 12:30 08/02/20 10:22 Potassium Chloride Oral Liquid PO 40 meq DAILY RAUL Administration Potassium Phos/Sodium Phos 1 packet 07/09/20 14:00 08/02/20 05:48 Phos-Nak Packet - PO 1 packet TID RAUL Administration Thiamine HCl 100 mg 07/11/20 12:45 08/02/20 10:23 Vitamin B1 Injection - IVPB 100 mg DAILY RAUL Administration ASSESSMENT/PLAN: 35 yo female with PMH of malnutrition 2/2 bulimia and polysubstance use disorder, cirrhosis, & heroin abuse, in ICU with sepsis and acute hypoxic respiratory failure, now s/p trach, sp abdominal peritoneal drain, s/p peg placement. Neuro - Alert, responsive, able to communicate with writing and mouthing words - Dilaudid 1g, q3h - Dexmedetomidine CV - Septic Shock 2/2 UTI - Baseline BP with systolic 80s - Low BP last night, restarted on Vasso 2, no on 1 Pulm - Acute Hypoxic Respiratory Failure, s/p Tracheostomy - s/p trach on 07/25; maintain SpO2 >90% - continue daily trials of CPAP with supported breaths - Pig tail chest tube placed in left chest yesterday with minimal drainage. Minimal improvement on CXR - Chest tube replaced today with 14 uzbek, > 300 cc fluid - minimal improvement on CXR, repeat @ 2 pm - breathing tx today for increased secretion and mucous GI - SBO >> resolved - Refeeding Syndrome Risk - Ascites, 2/2 to hypoalbunemia/cirrhosis - Peritoneal drain placed on 07/27 - SAAG score < 1.1 (less likely from portal HTN) - PEG Tube placed 07/31 - IV Tylenol 500 mg Q6h: keep to 2 g daily for liver disease - mistry in place - UTI Renal - Hypoalbuminemia; 2/2 severe malnutrition - Renal following (Dr. Chavez) - over corrected hyponatremia 125 >> 137 in 24 hrs. Gave desmo 0.1mg x2 - q6h BMP - Na repeat 2 AM 140, & 6AM 134 (likely due to Vaso restarted) ID - Septic Shock; multifactorial 2/2 UTI and likely Aspiration pneumonia - Likely Aspiration Pneumonia - Urine Cx +ESBL Klebsiella pneumo, carbapenem-resistent - S/p Vanc/Zosyn/Meropenem - currently on Tigecycline (Day 6) - ID following (Dr. Martines) Heme - Chronically Elevated PT/INR & PTT - Anemia/Thrombocytopenia, most likely 2/2 liver cirrhosis - check coags daily Psych - Hx of Alcohol/Heroin Abuse - Drug cessation counseling - bulimia/eating disorder Derm - Multiple Sacral Ulcers (stage 4) - Daily wound care, air mattress - Off-loading to all bony areas (heels, ankles, hips and tailbone) with Allevyn/Optifoam Prophylaxis - DVT ppx: BID SQH because of low bodyweight FEN - Hyponatremia overcorrected yesterday, continue to monitor - check and replete electrolytes as needed - Restart Perative Tube feeds, titrate up to 55 LTD - Trach - 07/25 - Pigtail catheter (07/27) drained 660 cc last 24 hrs - Rectal tube - Mistry Dispo - Cont to monitor in ICU - 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 - New Patient This patient is new to me today: No - Critical Care Critical Care patient: Yes Total Critical Care Time (in minutes): 37 Critical Care Statement: The care of this patient involved high complexity decision making to prevent further life threatening deterioration of the patient's condition and/or to evaluate & treat vital organ system(s) failure or risk of failure. - Discharge Referral Referred to [facility] No ATTENDING PHYSICIAN STATEMENT I saw and evaluated the patient. I reviewed the resident's note and discussed the case with the resident. I agree with the resident's findings and plan as documented. SUBJECTIVE: OBJECTIVE: ASSESSMENT AND PLAN:
[2020-08-02] MEDS ORDERED: ACETYLCYSTEINE 20% 200MG/ML 4 ML VIAL *FOR ORAL / INH USE ONLY NEB ONE (11:45)
[2020-08-02] MEDS ORDERED: ALBUTEROL SO4 0.5 % INH SOLN 2.5 MG/0.5 ML VIAL.NEB. NEB ONE (11:45)
[2020-08-02 15:09] LABS: ANION GAP 6 MMOL/L (8-16); BLOOD UREA NITROGEN 13.5 mg/dL (7-18); CHLORIDE 103 mmol/L (98-107); CO2 25 mmol/L (21-32); GLUCOSE,RANDOM 60 mg/dL (74-106); POTASSIUM 3.7 mmol/L (3.5-5.1); SODIUM 134 mmol/L (136-145)
--- NOTE | 2020-08-02 15:18 | PN ---
Progress Note, Physician History of Present Illness: Pt seen and examined at bedside. She remains in the ICU. She remains vent dependent. - Current Medication List Current Medications: Active Medications Acetaminophen (Ofirmev Injection -) 500 mg IVPB Q6H [facility] Last Admin: 08/02/20 10:26 Dose: 500 mg Documented by: Ascorbic Acid (Vitamin C -) 500 mg PO DAILY [facility] Last Admin: 08/02/20 10:25 Dose: 500 mg Documented by: Banana Based Medical Food (Banatrol Plus Powder Packet) 1 packet GT TID [facility] Last Admin: 08/02/20 05:48 Dose: 1 packet Documented by: Dextrose (D50w (Vial) -) 12.5 gm IVPUSH PRN PRN PRN Reason: HYPOGLYCEMIA Last Admin: 07/31/20 06:34 Dose: 12.5 gm Documented by: Folic Acid (Folic Acid -) 1 mg NGT DAILY [facility] Last Admin: 08/02/20 10:25 Dose: 1 mg Documented by: Heparin Sodium (Porcine) (Heparin -) 5,000 unit SQ BID [facility] Last Admin: 08/02/20 10:25 Dose: 5,000 unit Documented by: Hydromorphone HCl (Dilaudid Vial -) 1 mg IVPUSH Q3H PRN PRN Reason: PAIN LEVEL 7 - 10 Last Admin: 08/02/20 05:49 Dose: 1 mg Documented by: Dexmedetomidine/Sodium Chloride (Precedex 400 Mcg/100 Ml Inject) 400 mcg in 100 mls @ 1.542 mls/hr IVPB TITR [facility] Last Admin: 08/01/20 18:17 Dose: 0.7 mcg/kg/hr, 5.398 mls/hr Documented by: Tigecycline 50 mg/ Dextrose 100 mls @ 100 mls/hr IVPB BID [facility]; Protocol Last Admin: 08/02/20 10:24 Dose: 100 mls/hr Documented by: Vasopressin 40 units/ Sodium (Chloride) 100 mls @ 5 mls/hr IVPB TITR [facility]; Protocol Last Admin: 08/01/20 21:45 Dose: 1 units/hr, 2.5 mls/hr Documented by: Lidocaine HCl (Xylocaine 5% Top. Ointment) 1 applic TP DAILY [facility] Last Admin: 08/02/20 10:29 Dose: 1 applic Documented by: Multi-Ingredient Ointment (Zinc Oxide) 1 applic TP DAILY [facility] Last Admin: 08/02/20 10:30 Dose: 1 applic Documented by: Multivitamins/Minerals (Certavite-Antioxidant Liquid) 15 ml NGT DAILY [facility] Last Admin: 08/02/20 10:22 Dose: 15 ml Documented by: Potassium Chloride (Potassium Chloride Oral Liquid) 40 meq PO DAILY [facility] Last Admin: 08/02/20 10:22 Dose: 40 meq Documented by: Potassium Phos/Sodium Phos (Phos-Nak Packet -) 1 packet PO TID [facility] Last Admin: 08/02/20 05:48 Dose: 1 packet Documented by: Thiamine HCl (Vitamin B1 Injection -) 100 mg IVPB DAILY [facility] Last Admin: 08/02/20 10:23 Dose: 100 mg Documented by: - Objective Vital Signs: Vital Signs Temperature 99 F 08/02/20 08:00 Pulse Rate 62 08/02/20 08:14 Respiratory Rate 16 08/02/20 11:30 Blood Pressure 133/85 08/02/20 08:00 O2 Sat by Pulse Oximetry (%) 99 08/02/20 09:00 Constitutional: Yes: Calm Eyes: Yes: Conjunctiva Clear HENT: Yes: Atraumatic Neck: Yes: Supple Cardiovascular: Yes: S1, S2 Respiratory: Yes: Mechanically Ventilated Gastrointestinal: Yes: Soft Genitourinary: Yes: Uribe Present Musculoskeletal: Yes: Muscle Weakness Extremities: Yes: WNL Edema: No Neurological: Yes: Other (awake) Labs: CBC, BMP 08/02/20 06:05 08/02/20 14:25 INR, PTT INR 2.04 (0.83-1.09) H 08/02/20 06:05 Fibrinogen 344.0 mg/dL (238-498) 07/21/20 06:00 Problem List - Problems (1) Hypoglycemia Code(s): E16.2 - HYPOGLYCEMIA, UNSPECIFIED (2) Sepsis Code(s): A41.9 - SEPSIS, UNSPECIFIED ORGANISM Qualifiers: Sepsis type: sepsis due to unspecified organism Sepsis acute organ dy sfunction status: unspecified Qualified Code(s): A41.9 - Sepsis, unspecified organism (3) Hypoalbuminemia Code(s): E88.09 - OTH DISORDERS OF PLASMA-PROTEIN METABOLISM, NEC (4) Hyponatremia Code(s): E87.1 - HYPO-OSMOLALITY AND HYPONATREMIA Assessment/Plan Current Medications Generic Name Dose Route Start Last Admin Trade Name Freq PRN Reason Stop Dose Admin Acetaminophen 500 mg 08/01/20 10:00 08/02/20 10:26 Ofirmev Injection - IVPB 500 mg Q6H RAUL Administration Ascorbic Acid 500 mg 07/27/20 13:00 08/02/20 10:25 Vitamin C - PO 500 mg DAILY RAUL Administration Banana Based Medical Food 1 packet 07/10/20 22:00 08/02/20 05:48 Banatrol Plus Powder Packet GT 1 packet TID RAUL Administration Dextrose 12.5 gm 07/08/20 07:08 07/31/20 06:34 D50w (Vial) - IVPUSH 12.5 gm PRN PRN Administration HYPOGLYCEMIA Folic Acid 1 mg 07/06/20 10:00 08/02/20 10:25 Folic Acid - NGT 1 mg DAILY RAUL Administration Heparin Sodium (Porcine) 5,000 unit 07/20/20 10:00 08/02/20 10:25 Heparin - SQ 5,000 unit BID RAUL Administration Hydromorphone HCl 1 mg 07/26/20 13:39 08/02/20 05:49 Dilaudid Vial - IVPUSH 1 mg Q3H PRN Administration PAIN LEVEL 7 - 10 Dexmedetomidine/Sodium Chloride 400 mcg in 100 mls @ 1.542 mls/hr 07/25/20 11:15 08/01/20 18:17 Precedex 400 Mcg/100 Ml Inject IVPB 0.7 mcg/kg/hr TITR RAUL 5.398 mls/hr Administration 0.2 MCG/KG/HR Tigecycline 50 mg/ Dextrose 100 mls @ 100 mls/hr 07/28/20 10:00 08/02/20 10:24 IVPB 100 mls/hr BID RAUL Administration Protocol Vasopressin 40 units/ Sodium 100 mls @ 5 mls/hr 08/01/20 21:30 08/01/20 21:45 Chloride IVPB 1 units/hr TITR RAUL 2.5 mls/hr Administration Protocol 2 UNITS/HR Lidocaine HCl 1 applic 07/25/20 21:50 08/02/20 10:29 Xylocaine 5% Top. Ointment TP 1 applic DAILY RAUL Administration Multi-Ingredient Ointment 1 applic 07/19/20 13:30 08/02/20 10:30 Zinc Oxide TP 1 applic DAILY RAUL Administration Multivitamins/Minerals 15 ml 07/06/20 11:45 08/02/20 10:22 Certavite-Antioxidant Liquid NGT 15 ml DAILY RAUL Administration Potassium Chloride 40 meq 07/17/20 12:30 08/02/20 10:22 Potassium Chloride Oral Liquid PO 40 meq DAILY RAUL Administration Potassium Phos/Sodium Phos 1 packet 07/09/20 14:00 08/02/20 05:48 Phos-Nak Packet - PO 1 packet TID RAUL Administration Thiamine HCl 100 mg 07/11/20 12:45 08/02/20 10:23 Vitamin B1 Injection - IVPB 100 mg DAILY RAUL Administration Impression 1. azotemia 2. hyponatremia 3. hyperkalemia 4. hypotension 5. sepsis 6. sbo 7. uti 8. liver cirrhosis 9. hypoalbuminemia 10. etoh abuse 11. substance abuse 12. psoriasis 13. acute resp failure 14. malnutrition 15. polyuria Plan - pt required a few dosed of desmopressin yesterday to control polyuria - monitor urine output - monitor sodium level - pt back on vasopressin - monitor urine output closely if vaso stopped - repeat urine lytes and osm - vent support
[2020-08-02 15:22] LABS: CREATININE < 0.2 mg/dL (0.55-1.3)
[2020-08-02 15:24] LABS: CALCIUM 6.5 mg/dL (8.5-10.1)
[2020-08-02] MEDS: DEXMEDETOMIDINE IN 0.9 % NACL 400 MCG/100 ML VIAL IVPB SCH (17:01)
--- NOTE | 2020-08-02 17:53 | PN ---
Progress Note, Physician History of Present Illness: CALM - Current Medication List Current Medications: Active Medications Acetaminophen (Ofirmev Injection -) 500 mg IVPB Q6H [facility] Last Admin: 08/02/20 16:29 Dose: 500 mg Documented by: Ascorbic Acid (Vitamin C -) 500 mg PO DAILY [facility] Last Admin: 08/02/20 10:25 Dose: 500 mg Documented by: Banana Based Medical Food (Banatrol Plus Powder Packet) 1 packet GT TID [facility] Last Admin: 08/02/20 14:29 Dose: 1 packet Documented by: Dextrose (D50w (Vial) -) 12.5 gm IVPUSH PRN PRN PRN Reason: HYPOGLYCEMIA Last Admin: 07/31/20 06:34 Dose: 12.5 gm Documented by: Folic Acid (Folic Acid -) 1 mg NGT DAILY [facility] Last Admin: 08/02/20 10:25 Dose: 1 mg Documented by: Heparin Sodium (Porcine) (Heparin -) 5,000 unit SQ BID [facility] Last Admin: 08/02/20 10:25 Dose: 5,000 unit Documented by: Hydromorphone HCl (Dilaudid Vial -) 1 mg IVPUSH Q3H PRN PRN Reason: PAIN LEVEL 7 - 10 Last Admin: 08/02/20 12:30 Dose: 1 mg Documented by: Dexmedetomidine/Sodium Chloride (Precedex 400 Mcg/100 Ml Inject) 400 mcg in 100 mls @ 1.542 mls/hr IVPB TITR [facility] Last Admin: 08/02/20 17:01 Dose: 0.7 mcg/kg/hr, 5.398 mls/hr Documented by: Tigecycline 50 mg/ Dextrose 100 mls @ 100 mls/hr IVPB BID [facility]; Protocol Last Admin: 08/02/20 10:24 Dose: 100 mls/hr Documented by: Vasopressin 40 units/ Sodium (Chloride) 100 mls @ 5 mls/hr IVPB TITR [facility]; Protocol Last Admin: 08/01/20 21:45 Dose: 1 units/hr, 2.5 mls/hr Documented by: Lidocaine HCl (Xylocaine 5% Top. Ointment) 1 applic TP DAILY [facility] Last Admin: 08/02/20 10:29 Dose: 1 applic Documented by: Multi-Ingredient Ointment (Zinc Oxide) 1 applic TP DAILY [facility] Last Admin: 08/02/20 10:30 Dose: 1 applic Documented by: Multivitamins/Minerals (Certavite-Antioxidant Liquid) 15 ml NGT DAILY [facility] Last Admin: 08/02/20 10:22 Dose: 15 ml Documented by: Potassium Chloride (Potassium Chloride Oral Liquid) 40 meq PO DAILY [facility] Last Admin: 08/02/20 10:22 Dose: 40 meq Documented by: Potassium Phos/Sodium Phos (Phos-Nak Packet -) 1 packet PO TID [facility] Last Admin: 08/02/20 14:29 Dose: 1 packet Documented by: Thiamine HCl (Vitamin B1 Injection -) 100 mg IVPB DAILY [facility] Last Admin: 08/02/20 10:23 Dose: 100 mg Documented by: - Objective Vital Signs: Vital Signs Temperature 99 F 08/02/20 08:00 Pulse Rate 62 08/02/20 08:14 Respiratory Rate 15 08/02/20 15:30 Blood Pressure 133/85 08/02/20 08:00 O2 Sat by Pulse Oximetry (%) 100 08/02/20 10:00 HENT: Yes: WNL Neck: Yes: Other (TRACH COLLAR) Cardiovascular: Yes: Regular Rate and Rhythm Respiratory: Yes: Rales, Rhonchi, Wheezes Gastrointestinal: Yes: Normal Bowel Sounds Extremities: Yes: WNL Neurological: Yes: Alert Labs: CBC, BMP 08/02/20 06:05 08/02/20 14:25 INR, PTT INR 2.04 (0.83-1.09) H 08/02/20 06:05 Fibrinogen 344.0 mg/dL (238-498) 07/21/20 06:00 Problem List - Problems (1) At risk for electrolyte imbalance Assessment/Plan: MONITOR AND REPLACE Code(s): Z91.89 - OT PERSONAL RISK FACTORS, NOT ELSEWHERE CLASSIFIED (2) SBO (small bowel obstruction) Assessment/Plan: FOR PEG ON tf Code(s): K56.609 - UNSP INTESTNL OBST, UNSP TO PARTIAL VERSUS COMPLETE OBST (3) Sepsis Assessment/Plan: ON IV ABX CXS NOTED wbc wnl Code(s): A41.9 - SEPSIS, UNSPECIFIED ORGANISM Qualifiers: Sepsis type: sepsis due to unspecified organism Sepsis acute organ dysfunction status: unspecified Qualified Code(s): A41.9 - Sepsis, unspecified organism (4) Alcoholic liver damage Code(s): K70.9 - ALCOHOLIC LIVER DISEASE, UNSPECIFIED (5) Hypoalbuminemia Code(s): E88.09 - OTH DISORDERS OF PLASMA-PROTEIN METABOLISM, NEC (6) Hyponatremia Code(s): E87.1 - HYPO-OSMOLALITY AND HYPONATREMIA (7) Liver cirrhosis, alcoholic Code(s): K70.30 - ALCOHOLIC CIRRHOSIS OF LIVER WITHOUT ASCITES (8) Ischemic hepatitis Code(s): K75.9 - INFLAMMATORY LIVER DISEASE, UNSPECIFIED (9) Respiratory failure Assessment/Plan: S/P TRACH ON VENT Code(s): J96.90 - RESPIRATORY FAILURE, UNSP, UNSP W HYPOXIA OR HYPERCAPNIA (10) UTI (urinary tract infection) Assessment/Plan: SEPSIS..RESOLVING ON IV ABX URINE STILL TURBID Code(s): N39.0 - URINARY TRACT INFECTION, SITE NOT SPECIFIED Qualifiers: Urinary tract infection type: site unspecified Hematuria presence: with hematuria Qualified Code(s): N39.0 - Urinary tract infection, site not sp ecified; R31.9 - Hematuria, unspecified (11) Elevated LFTs Assessment/Plan: IMPROVING MONITOR Code(s): R79.89 - OTHER SPECIFIED ABNORMAL FINDINGS OF BLOOD CHEMISTRY (12) Hypothermia Assessment/Plan: stable PRN BEAR HUGGER Code(s): T68.XXXA - HYPOTHERMIA, INITIAL ENCOUNTER (13) Skin abrasion Assessment/Plan: AIR MATTRESS helping in healing Code(s): T14.8XXA - OTHER INJURY OF UNSPECIFIED BODY REGION, INITIAL ENCOUNTER (14) Sacral ulcer Code(s): L98.429 - NON-PRESSURE CHRONIC ULCER OF BACK WITH UNSPECIFIED SEVERITY (15) Severe malnutrition Assessment/Plan: S/P PEG GETTING FEEDS Code(s): E43 - UNSPECIFIED SEVERE PROTEIN-CALORIE MALNUTRITION (16) Pneumothorax on left Assessment/Plan: CHEST TUBE IN PLACE Code(s): J93.9 - PNEUMOTHORAX, UNSPECIFIED (17) Hypotension Assessment/Plan: STILL ON PRESSOR SUPPORT Code(s): I95.9 - HYPOTENSION, UNSPECIFIED Assessment/Plan critical care time spent in reviewing chart, evaluating patient and formulating plan [address] octavio moses
[2020-08-02] MEDS: VASOPRESSIN 40 UNITS in SODIUM CHLORIDE 98 ML IVPB SCH (21:33)
[2020-08-02 21:43] LABS: ANION GAP 6 MMOL/L (8-16); BLOOD UREA NITROGEN 15.6 mg/dL (7-18); CHLORIDE 104 mmol/L (98-107); CO2 23 mmol/L (21-32); CREATININE < 0.2 mg/dL (0.55-1.3); GLUCOSE,RANDOM 160 mg/dL (74-106); POTASSIUM 4.2 mmol/L (3.5-5.1); SODIUM 133 mmol/L (136-145)
[2020-08-02 22:17] LABS: CALCIUM 6.3 mg/dL (8.5-10.1)
[2020-08-03] MEDS: ACETAMINOPHEN 1000 MG/100 ML VIAL (NON FORMULARY) IVPB SCH ×4 (04:12→22:13)
[2020-08-03] MEDS: BANATROL PLUS POWDER PACKET GT SCH ×3 (06:10→22:16)
[2020-08-03] MEDS: NAPH,MB-DB/K PH,MBDB POWDER PACKET PO SCH (06:10)
[2020-08-03 06:16] LABS: HEMATOCRIT 30.3 % (32.4-45.2); MCH 29.6 pg (25.7-33.7); MCHC 33.1 g/dl (32.0-36.0); MEAN CELL VOLUME 89.3 fl (80-96); MEAN PLT VOLUME 7.4 fl (7.5-11.1); PLATELET COUNT 152 K/MM3 (134-434); RBC 3.39 M/mm3 (3.60-5.2); WHITE BLOOD COUNT 12.3 K/mm3 (4.0-10.0)
[2020-08-03 06:23] LABS: INR 2.12 (0.83-1.09); PROTHROMBIN TIME (PATIENT) 25.2 SEC (9.7-13.0)
[2020-08-03 06:26] LABS: ACTIVATED PTT 65.2 SECONDS (25.2-36.5)
[2020-08-03 06:43] LABS: ALBUMIN 1.5 g/dl (3.4-5.0); ALK PHOS 331 U/L (45-117); ANION GAP 8 MMOL/L (8-16); BILIRUBIN,TOTAL 1.1 mg/dL (0.2-1); CHLORIDE 102 mmol/L (98-107); CO2 23 mmol/L (21-32); GLUCOSE,RANDOM 109 mg/dL (74-106); MAGNESIUM 1.3 mg/dL (1.8-2.4); PHOSPHOROUS 2.7 mg/dL (2.5-4.9); POTASSIUM 3.7 mmol/L (3.5-5.1); SGOT/AST 32 U/L (15-37); SGPT/ALT 31 U/L (13-61); SODIUM 132 mmol/L (136-145); TOT PROT 3.6 g/dl (6.4-8.2)
[2020-08-03 07:12] LABS: CREATININE < 0.2 mg/dL (0.55-1.3)
[2020-08-03 07:13] LABS: CALCIUM 6.3 mg/dL (8.5-10.1)
[2020-08-03] MEDS ORDERED: MAGNESIUM OXIDE 400 MG TABLET (FP) PO ONE (09:00)
[2020-08-03] MEDS ORDERED: MAGNESIUM 1GM/D5W - 1 GM/100 ML IVPB IVPB ONE (09:00)
[2020-08-03] MEDS ORDERED: PHYTONADIONE 10 MG/1 ML AMP IVPB ONE (10:00)
[2020-08-03] MEDS ORDERED: PT OWN MED DRAWER 7, Y5N ONE ×2 (10:34→22:09)
[2020-08-03] MEDS: ALBUMIN HUMAN 25% 12.5 GM/50 ML VIAL IVPB SCH ×2 (10:39→11:00)
[2020-08-03] MEDS: LIDOCAINE HCL 5% TOP OINTMENT 50 GM TUBE TP SCH (10:41)
[2020-08-03] MEDS: DEXMEDETOMIDINE IN 0.9 % NACL 400 MCG/100 ML VIAL IVPB SCH (10:42)
[2020-08-03] MEDS: ZINC OXIDE 20% TOPICAL OINTMENT 30 GM TUBE TP SCH (10:42)
[2020-08-03] MEDS: POTASSIUM CHLORIDE ORAL LIQUID 20 MEQ/15 ML PO SCH (10:50)
[2020-08-03] MEDS: TIGECYCLINE 50 MG in DEXTROSE 5%-WATER - 100 ML IVPB SCH ×2 (10:50→21:53)
[2020-08-03] MEDS: MULTIVIT-MINERALS ORAL LIQUID NGT SCH (10:51)
[2020-08-03] MEDS: FOLIC ACID 1 MG TABLET (FP) NGT SCH (10:51)
[2020-08-03] MEDS: HEPARIN NA (PORCINE) 5,000 UNITS/ML 1ML VIAL SQ SCH ×2 (10:51→22:14)
[2020-08-03] MEDS: ASCORBIC ACID 500 MG TABLET (FP) PO SCH (10:51)
[2020-08-03] MEDS: THIAMINE HCL 200 MG/2 ML VIAL IVPB SCH (10:52)
[2020-08-03] MEDS ORDERED: LACTATED RINGERS SOLUTION 1,000 ML/1,000 ML INFUS.BAG IV SCH (11:15)
--- NOTE | 2020-08-03 12:38 | PN ---
Teaching Attending Note Name of Resident: Yadira Hamilton ATTENDING PHYSICIAN STATEMENT I saw and evaluated the patient. I reviewed the resident's note and discussed the case with the resident. I agree with the resident's findings and plan as documented. SUBJECTIVE: Patient seen and examined in the ICU. Vented, awake and interactive. Profuse diarrhea. Pain is variably controlled. Pleural catheter intact without an air leak. Vasopressin @ 2 units for hemodynamic support. OBJECTIVE: Intake & Output 07/31/20 08/01/20 08/02/20 08/03/20 23:59 23:59 23:59 23:59 Intake Total 3421.4 1763.8 1826.2 209 Output Total 2550 1690 1540 350 Balance 871.4 73.8 286.2 -141 Weight 74 lb 75 lb 13.424 oz 75 lb 6.369 oz Last Vital Signs Temp Pulse Resp BP Pulse Ox 99.4 F 59 L 15 113/74 100 08/03/20 08:00 08/03/20 08:04 08/03/20 11:20 08/03/20 08:00 08/03/20 11:20 Active Medications Acetaminophen (Ofirmev Injection -) 500 mg IVPB Q6H [facility] Last Admin: 08/03/20 10:53 Dose: 500 mg Documented by: Ascorbic Acid (Vitamin C -) 500 mg PO DAILY [facility] Last Admin: 08/03/20 10:51 Dose: 500 mg Documented by: Banana Based Medical Food (Banatrol Plus Powder Packet) 2 packet GT TID [facility] Dextrose (D50w (Vial) -) 12.5 gm IVPUSH PRN PRN PRN Reason: HYPOGLYCEMIA Last Admin: 07/31/20 06:34 Dose: 12.5 gm Documented by: Folic Acid (Folic Acid -) 1 mg NGT DAILY [facility] Last Admin: 08/03/20 10:51 Dose: 1 mg Documented by: Heparin Sodium (Porcine) (Heparin -) 5,000 unit SQ BID [facility] Last Admin: 08/03/20 10:51 Dose: 5,000 unit Documented by: Hydromorphone HCl (Dilaudid Vial -) 1 mg IVPUSH Q3H PRN PRN Reason: PAIN LEVEL 7 - 10 Last Admin: 08/02/20 12:30 Dose: 1 mg Documented by: Dexmedetomidine/Sodium Chloride (Precedex 400 Mcg/100 Ml Inject) 400 mcg in 100 mls @ 1.542 mls/hr IVPB TITR [facility] Last Admin: 08/02/20 17:01 Dose: 0.7 mcg/kg/hr, 5.398 mls/hr Documented by: Tigecycline 50 mg/ Dextrose 100 mls @ 100 mls/hr IVPB BID [facility]; Protocol Last Admin: 08/03/20 10:50 Dose: 100 mls/hr Documented by: Vasopressin 40 units/ Sodium (Chloride) 100 mls @ 5 mls/hr IVPB TITR [facility]; Protocol Last Admin: 08/02/20 21:33 Dose: 1 units/hr, 2.5 mls/hr Documented by: Sodium Chloride 20 meq/ Amino (Acids) 1,005 mls @ 42 mls/hr IV Q24H [facility] Lidocaine HCl (Xylocaine 5% Top. Ointment) 1 applic TP DAILY [facility] Last Admin: 08/02/20 10:29 Dose: 1 applic Documented by: Multi-Ingredient Ointment (Zinc Oxide) 1 applic TP DAILY [facility] Last Admin: 08/02/20 10:30 Dose: 1 applic Documented by: Multivitamins/Minerals (Certavite-Antioxidant Liquid) 15 ml NGT DAILY [facility] Last Admin: 08/03/20 10:51 Dose: 15 ml Documented by: Potassium Chloride (Potassium Chloride Oral Liquid) 40 meq PO DAILY [facility] Last Admin: 08/03/20 10:50 Dose: 40 meq Documented by: Potassium Phos/Sodium Phos (Phos-Nak Packet -) 1 packet PO TID [facility] Last Admin: 08/03/20 06:10 Dose: 1 packet Documented by: Thiamine HCl (Vitamin B1 Injection -) 100 mg IVPB DAILY [facility] Last Admin: 08/03/20 10:52 Dose: 100 mg Documented by: Gen: vented, awake and alert, cachectic Heart: RRR Lung: Vented, scattered rhonchi, Left pleural catheter Abd: soft, (_) BS< (+) GT Ext: no edema Laboratory Results - last 24 hr 07/30/20 08/02/20 08/02/20 08:30 14:25 19:01 WBC RBC Hgb Hct MCV MCH MCHC RDW Plt Count MPV PT with INR INR PTT (Actin FS) Sodium 134 L Potassium 3.7 Chloride 103 Carbon Dioxide 25 Anion Gap 6 L BUN 13.5 Creatinine < 0.2 L Est GFR (CKD-EPI)AfAm 196.46 Est GFR (CKD-EPI)NonAf 169.51 POC Glucometer 89 Random Glucose 60 L Calcium 6.5 L* Phosphorus Magnesium Total Bilirubin AST ALT Alkaline Phosphatase Total Protein Albumin Blood Type O POSITIVE Antibody Screen Negative Crossmatch See Detail 08/02/20 08/03/20 08/03/20 21:00 05:53 05:53 WBC 12.3 H RBC 3.39 L Hgb 10.0 L Hct 30.3 L MCV 89.3 MCH 29.6 MCHC 33.1 RDW 18.0 H Plt Count 152 D MPV 7.4 L PT with INR 25.20 H INR 2.12 H PTT (Actin FS) 65.2 H Sodium 133 L Potassium 4.2 Chloride 104 Carbon Dioxide 23 Anion Gap 6 L BUN 15.6 Creatinine < 0.2 L Est GFR (CKD-EPI)AfAm 196.46 Est GFR (CKD-EPI)NonAf 169.51 POC Glucometer Random Glucose 160 H Calcium 6.3 L* Phosphorus Magnesium Total Bilirubin AST ALT Alkaline Phosphatase Total Protein Albumin Blood Type Antibody Screen Crossmatch 08/03/20 05:53 WBC RBC Hgb Hct MCV MCH MCHC RDW Plt Count MPV PT with INR INR PTT (Actin FS) Sodium 132 L Potassium 3.7 Chloride 102 Carbon Dioxide 23 Anion Gap 8 BUN 16.0 Creatinine < 0.2 L Est GFR (CKD-EPI)AfAm 196.46 Est GFR (CKD-EPI)NonAf 169.51 POC Glucometer Random Glucose 109 H Calcium 6.3 L* Phosphorus 2.7 Magnesium 1.3 L Total Bilirubin 1.1 H AST 32 ALT 31 Alkaline Phosphatase 331 H Total Protein 3.6 L Albumin 1.5 L Blood Type Antibody Screen Crossmatch ASSESSMENT AND PLAN: Acute Hypoxic Respiratory Failure s/p Tracheostomy Pneumonia likely Aspiration UTI Sepsis Hyponatremia Small Bowel Obstruction Ascites s/p Peritoneal drain placement Alcohol/Heroin Abuse Anemia/Thrombocytopenia Failure to Thrive Severe Protein Calorie Malnutrition Refeeding Syndrome - Leave pigtail to suction today and water seal tomorrow if stable - pain control - monitor urine output, creatinine - replete lytes - continue antibiotics - Wean pressors - Hold spontaneous breathing trials for now - Change enteral feeds and will add 1 liter of adjusted Clinimix per day - DVT/GI prophylaxis - continue ICU monitoring for pressors LTAC evaluation Dr Babb Critical care time spent in reviewing chart, evaluating patient and formulating plan 35 min
--- NOTE | 2020-08-03 12:42 | PN ---
Progress Note, Physician History of Present Illness: ventilated trach back on pressors dirrhoea - Current Medication List Current Medications: Active Medications Acetaminophen (Ofirmev Injection -) 500 mg IVPB Q6H [facility] Last Admin: 08/03/20 10:53 Dose: 500 mg Documented by: Ascorbic Acid (Vitamin C -) 500 mg PO DAILY [facility] Last Admin: 08/03/20 10:51 Dose: 500 mg Documented by: Banana Based Medical Food (Banatrol Plus Powder Packet) 2 packet GT TID [facility] Dextrose (D50w (Vial) -) 12.5 gm IVPUSH PRN PRN PRN Reason: HYPOGLYCEMIA Last Admin: 07/31/20 06:34 Dose: 12.5 gm Documented by: Folic Acid (Folic Acid -) 1 mg NGT DAILY [facility] Last Admin: 08/03/20 10:51 Dose: 1 mg Documented by: Heparin Sodium (Porcine) (Heparin -) 5,000 unit SQ BID [facility] Last Admin: 08/03/20 10:51 Dose: 5,000 unit Documented by: Hydromorphone HCl (Dilaudid Vial -) 1 mg IVPUSH Q3H PRN PRN Reason: PAIN LEVEL 7 - 10 Last Admin: 08/02/20 12:30 Dose: 1 mg Documented by: Dexmedetomidine/Sodium Chloride (Precedex 400 Mcg/100 Ml Inject) 400 mcg in 100 mls @ 1.542 mls/hr IVPB TITR [facility] Last Admin: 08/02/20 17:01 Dose: 0.7 mcg/kg/hr, 5.398 mls/hr Documented by: Tigecycline 50 mg/ Dextrose 100 mls @ 100 mls/hr IVPB BID [facility]; Protocol Last Admin: 08/03/20 10:50 Dose: 100 mls/hr Documented by: Vasopressin 40 units/ Sodium (Chloride) 100 mls @ 5 mls/hr IVPB TITR [facility]; Protocol Last Admin: 08/02/20 21:33 Dose: 1 units/hr, 2.5 mls/hr Documented by: Sodium Chloride 20 meq/ Amino (Acids) 1,005 mls @ 42 mls/hr IV Q24H [facility] Lidocaine HCl (Xylocaine 5% Top. Ointment) 1 applic TP DAILY [facility] Last Admin: 08/02/20 10:29 Dose: 1 applic Documented by: Multi-Ingredient Ointment (Zinc Oxide) 1 applic TP DAILY [facility] Last Admin: 08/02/20 10:30 Dose: 1 applic Documented by: Multivitamins/Minerals (Certavite-Antioxidant Liquid) 15 ml NGT DAILY [facility] Last Admin: 08/03/20 10:51 Dose: 15 ml Documented by: Potassium Chloride (Potassium Chloride Oral Liquid) 40 meq PO DAILY [facility] Last Admin: 08/03/20 10:50 Dose: 40 meq Documented by: Potassium Phos/Sodium Phos (Phos-Nak Packet -) 1 packet PO TID [facility] Last Admin: 08/03/20 06:10 Dose: 1 packet Documented by: Thiamine HCl (Vitamin B1 Injection -) 100 mg IVPB DAILY [facility] Last Admin: 08/03/20 10:52 Dose: 100 mg Documented by: - Objective Vital Signs: Vital Signs Temperature 99.4 F 08/03/20 08:00 Pulse Rate 59 L 08/03/20 08:04 Respiratory Rate 15 08/03/20 11:20 Blood Pressure 113/74 08/03/20 08:00 O2 Sat by Pulse Oximetry (%) 100 08/03/20 11:20 Constitutional: Yes: Calm, Mild Distress, Other (failure to thrive) Cardiovascular: Yes: S1, S2 Respiratory: Yes: Mechanically Ventilated, Other (trach) Musculoskeletal: Yes: WNL Extremities: Yes: WNL Neurological: Yes: Alert Psychiatric: Yes: Alert Labs: CBC, BMP 08/03/20 05:53 08/03/20 05:53 INR, PTT INR 2.12 (0.83-1.09) H 08/03/20 05:53 Fibrinogen 344.0 mg/dL (238-498) 07/21/20 06:00 Assessment/Plan Pneumonia likely Aspiration UTI Sepsis Hyponatremia SBO resolving Alcohol/Heroin Abuse Anemia Failure to Thrive Severe Protein Calorie Malnutrition uti sacral wounds plan ct abx monitor dirrhoea wound care close watch nutrition asp precautions rest as per icu cc 38 min
[2020-08-03] MEDS ORDERED: SODIUM CHLORIDE IV SCH (13:00)
[2020-08-03] MEDS ORDERED: [UNRECOGNIZED DRUG - OTHER] IV SCH (13:00)
[2020-08-03] MEDS ORDERED: AMINO ACIDS IV SCH (13:00)
[2020-08-03] MEDS: HYDROmorphone HCl 2 MG/ML VIAL IVPUSH PRN ×2 (13:46→20:05)
--- NOTE | 2020-08-03 14:27 | PN ---
Progress Note, Physician History of Present Illness: Pt seen and examined at bedside. She remains in the ICU. She has diarrhea. - Current Medication List Current Medications: Active Medications Acetaminophen (Ofirmev Injection -) 500 mg IVPB Q6H [facility] Last Admin: 08/03/20 10:53 Dose: 500 mg Documented by: Ascorbic Acid (Vitamin C -) 500 mg PO DAILY [facility] Last Admin: 08/03/20 10:51 Dose: 500 mg Documented by: Banana Based Medical Food (Banatrol Plus Powder Packet) 2 packet GT TID [facility] Dextrose (D50w (Vial) -) 12.5 gm IVPUSH PRN PRN PRN Reason: HYPOGLYCEMIA Last Admin: 07/31/20 06:34 Dose: 12.5 gm Documented by: Folic Acid (Folic Acid -) 1 mg NGT DAILY [facility] Last Admin: 08/03/20 10:51 Dose: 1 mg Documented by: Heparin Sodium (Porcine) (Heparin -) 5,000 unit SQ BID [facility] Last Admin: 08/03/20 10:51 Dose: 5,000 unit Documented by: Hydromorphone HCl (Dilaudid Vial -) 1 mg IVPUSH Q3H PRN PRN Reason: PAIN LEVEL 7 - 10 Last Admin: 08/02/20 12:30 Dose: 1 mg Documented by: Dexmedetomidine/Sodium Chloride (Precedex 400 Mcg/100 Ml Inject) 400 mcg in 100 mls @ 1.542 mls/hr IVPB TITR [facility] Last Admin: 08/02/20 17:01 Dose: 0.7 mcg/kg/hr, 5.398 mls/hr Documented by: Tigecycline 50 mg/ Dextrose 100 mls @ 100 mls/hr IVPB BID [facility]; Protocol Last Admin: 08/03/20 10:50 Dose: 100 mls/hr Documented by: Vasopressin 40 units/ Sodium (Chloride) 100 mls @ 5 mls/hr IVPB TITR [facility]; Protocol Last Admin: 08/02/20 21:33 Dose: 1 units/hr, 2.5 mls/hr Documented by: Sodium Chloride 20 meq/ Amino (Acids) 1,005 mls @ 42 mls/hr IV Q24H [facility] Lidocaine HCl (Xylocaine 5% Top. Ointment) 1 applic TP DAILY [facility] Last Admin: 08/02/20 10:29 Dose: 1 applic Documented by: Multi-Ingredient Ointment (Zinc Oxide) 1 applic TP DAILY [facility] Last Admin: 08/02/20 10:30 Dose: 1 applic Documented by: Multivitamins/Minerals (Certavite-Antioxidant Liquid) 15 ml NGT DAILY [facility] Last Admin: 08/03/20 10:51 Dose: 15 ml Documented by: Potassium Chloride (Potassium Chloride Oral Liquid) 40 meq PO DAILY [facility] Last Admin: 08/03/20 10:50 Dose: 40 meq Documented by: Potassium Phos/Sodium Phos (Phos-Nak Packet -) 1 packet PO TID [facility] Last Admin: 08/03/20 06:10 Dose: 1 packet Documented by: Thiamine HCl (Vitamin B1 Injection -) 100 mg IVPB DAILY [facility] Last Admin: 08/03/20 10:52 Dose: 100 mg Documented by: - Objective Vital Signs: Vital Signs Temperature 99.4 F 08/03/20 08:00 Pulse Rate 59 L 08/03/20 08:04 Respiratory Rate 15 08/03/20 11:20 Blood Pressure 113/74 08/03/20 08:00 O2 Sat by Pulse Oximetry (%) 100 08/03/20 11:20 Constitutional: Yes: Calm, Cachectic Eyes: Yes: Conjunctiva Clear HENT: Yes: Atraumatic Cardiovascular: Yes: S1, S2 Respiratory: Yes: Mechanically Ventilated Gastrointestinal: Yes: Soft Musculoskeletal: Yes: Muscle Weakness Edema: No Neurological: Yes: Oriented Labs: CBC, BMP 08/03/20 05:53 08/03/20 05:53 INR, PTT INR 2.12 (0.83-1.09) H 08/03/20 05:53 Fibrinogen 344.0 mg/dL (238-498) 07/21/20 06:00 Problem List - Problems (1) Hypoglycemia Code(s): E16.2 - HYPOGLYCEMIA, UNSPECIFIED (2) Sepsis Code(s): A41.9 - SEPSIS, UNSPECIFIED ORGANISM Qualifiers: Sepsis type: sepsis due to unspecified organism Sepsis acute organ dysfunction status: unspecified Qualified Code(s): A41.9 - Sepsis, unspecified organism (3) Hypoalbuminemia Code(s): E88.09 - OTH DISORDERS OF PLASMA-PROTEIN METABOLISM, NEC (4) Hyponatremia Code(s): E87.1 - HYPO-OSMOLALITY AND HYPONATREMIA Assessment/Plan Current Medications Generic Name Dose Route Start Last Admin Trade Name Freq PRN Reason Stop Dose Admin Acetaminophen 500 mg 08/01/20 10:00 08/03/20 10:53 Ofirmev Injection - IVPB 500 mg Q6H [facility] Administration Ascorbic Acid 500 mg 07/27/20 13:00 08/03/20 10:51 Vitamin C - PO 500 mg DAILY [facility] Administration Banana Based Medical Food 2 packet 08/03/20 11:35 Banatrol Plus Powder Packet GT TID [facility] Dextrose 12.5 gm 07/08/20 07:08 07/31/20 06:34 D50w (Vial) - IVPUSH 12.5 gm PRN PRN Administration HYPOGLYCEMIA Folic Acid 1 mg 07/06/20 10:00 08/03/20 10:51 Folic Acid - NGT 1 mg DAILY [facility] Administration Heparin Sodium (Porcine) 5,000 unit 07/20/20 10:00 08/03/20 10:51 Heparin - SQ 5,000 unit BID [facility] Administration Hydromorphone HCl 1 mg 07/26/20 13:39 08/02/20 12:30 Dilaudid Vial - IVPUSH 1 mg Q3H PRN Administration PAIN LEVEL 7 - 10 Dexmedetomidine/Sodium Chloride 400 mcg in 100 mls @ 1.542 mls/hr 07/25/20 11:15 08/02/20 17:01 Precedex 400 Mcg/100 Ml Inject IVPB 0.7 mcg/kg/hr TITR [facility] 5.398 mls/hr Administration 0.2 MCG/KG/HR Tigecycline 50 mg/ Dextrose 100 mls @ 100 mls/hr 07/28/20 10:00 08/03/20 10:50 IVPB 100 mls/hr BID [facility] Administration Protocol Vasopressin 40 units/ Sodium 100 mls @ 5 mls/hr 08/01/20 21:30 08/02/20 21:33 Chloride IVPB 1 units/hr TITR [facility] 2.5 mls/hr Administration Protocol 2 UNITS/HR Sodium Chloride 20 meq/ Amino 1,005 mls @ 42 mls/hr 08/03/20 13:00 Acids IV Q24H [facility] Lidocaine HCl 1 applic 07/25/20 21:50 08/02/20 10:29 Xylocaine 5% Top. Ointment TP 1 applic DAILY [facility] Administration Multi-Ingredient Ointment 1 applic 07/19/20 13:30 08/02/20 10:30 Zinc Oxide TP 1 applic DAILY [facility] Administration Multivitamins/Minerals 15 ml 07/06/20 11:45 08/03/20 10:51 Certavite-Antioxidant Liquid NGT 15 ml DAILY [facility] Administration Potassium Chloride 40 meq 07/17/20 12:30 08/03/20 10:50 Potassium Chloride Oral Liquid PO 40 meq DAILY [facility] Administration Potassium Phos/Sodium Phos 1 packet 07/09/20 14:00 08/03/20 06:10 Phos-Nak Packet - PO 1 packet TID [facility] Administration Thiamine HCl 100 mg 07/11/20 12:45 08/03/20 10:52 Vitamin B1 Injection - IVPB 100 mg DAILY [facility] Administration Laboratory Tests 08/01/20 13:40 Urine Osmolality 410 Impression 1. azotemia 2. hyponatremia 3. hyperkalemia 4. hypotension 5. sepsis 6. sbo 7. uti 8. liver cirrhosis 9. hypoalbuminemia 10. etoh abuse 11. substance abuse 12. psoriasis 13. acute resp failure 14. malnutrition 15. polyuria Plan - monitor urine output - pt has enterovesicualr fistula, stool in urine may have contributed to elevated urine osm - vasopressin being titrated off - if she developes polyuria/hypernatremia please give desmopressin - discussed with icu team - can give clinimix as she is not tolerating feeds, spoke to dietary - repeat urine lytes and osm - vent support
[2020-08-03 19:15] LABS: ANION GAP 6 MMOL/L (8-16); BLOOD UREA NITROGEN 17.1 mg/dL (7-18); CHLORIDE 103 mmol/L (98-107); CO2 23 mmol/L (21-32); CREATININE < 0.2 mg/dL (0.55-1.3); GLUCOSE,RANDOM 126 mg/dL (74-106); POTASSIUM 4.4 mmol/L (3.5-5.1); SODIUM 132 mmol/L (136-145)
[2020-08-03 19:38] LABS: CALCIUM 6.5 mg/dL (8.5-10.1)
[2020-08-03] MEDS ORDERED: CALCIUM GLUCONATE 10% - 1,000 MG/10 ML VIAL IVPUSH ONE (20:05)
[2020-08-03] MEDS ORDERED: INSULIN REGULAR HUMAN 100 UNITS/ML *VIAL IVPUSH ONE (20:05)
[2020-08-03] MEDS ORDERED: DEXTROSE 50%-WATER - 25 GM/50 ML VIAL IVPUSH ONE (20:05)
[2020-08-03] MEDS ORDERED: SODIUM POLYSTYRENE SULFONATE 15 GM/60 ML BOTTLE PO ONE (20:06)
--- NOTE | 2020-08-03 21:02 | PN ---
Physical Exam: SUBJECTIVE: Patient seen and examined bedside. Having some discomfort where L chest tube is. Patient still no vaso. No issues overnight. OBJECTIVE: Vital Signs Temp Pulse Resp BP Pulse Ox 97.9 F 53 L 20 90/69 100 08/03/20 18:00 08/03/20 18:00 08/03/20 18:00 08/03/20 18:00 08/03/20 18:00 GENERAL: The patient is awake, alert, and fully oriented HEAD: temporal wasting improving EYES: PERRL, EOMI. ENT: moist mucous membranes. NECK: Trach placed LUNGS: Breath sounds improved on left side. L chest tube in place HEART: RRR, on vaso 1.5 ABDOMEN: very cachectic, pig tail cath in place on right lower abdomen. Drain in L abdomen EXTREMITIES: no edema, extreme muscle wasting NEUROLOGICAL: Cranial nerves II through XII grossly intact PSYCH: Normal mood, normal affect. SKIN: Sacral ulcer stage 4. Pressure ulcer on Left ear Intake & Output 08/03/20 08/03/20 08/03/20 07:59 15:59 23:59 Intake Total 209 916.4 Output Total 350 450 Balance -141 466.4 Weight 34.2 kg Intake: IV 209 216.4 PRECEDEX 400 MCG/100 ML 60 69.6 INJECT 400 mcg In 100 ml @ 0.2 MCG/KG/HR 1.542 mls /hr IVPB TITR [facility] Rx#: [id number] Pitressin - 40 Units In 49 46.8 Normal Saline - 98 ml @ 2 UNITS/HR 5 mls/hr IVPB TITR [facility] Rx#:[id number] tylenol 100 100 IVPB 300 Tube Feeding 320 Tube Irrigant (Tube 80 Feeding Water) Output: Chest Tube Drainage 80 Left Lateral Chest 80 Drainage 50 120 Right Abdomen 50 120 Urine 300 250 Mistry 300 250 Other: Voiding Method Indwelling Catheter Bowel Movement Yes Yes: flexeal, ongoing # Bowel Movements 3 Weight Measurement Method Built in [facility] Laboratory Results - last 24 hr 07/30/20 08/02/20 08/03/20 08:30 21:00 05:53 WBC 12.3 H RBC 3.39 L Hgb 10.0 L Hct 30.3 L MCV 89.3 MCH 29.6 MCHC 33.1 RDW 18.0 H Plt Count 152 D MPV 7.4 L PT with INR INR PTT (Actin FS) Sodium 133 L Potassium 4.2 Chloride 104 Carbon Dioxide 23 Anion Gap 6 L BUN 15.6 Creatinine < 0.2 L Est GFR (CKD-EPI)AfAm 196.46 Est GFR (CKD-EPI)NonAf 169.51 Random Glucose 160 H Calcium 6.3 L* Phosphorus Magnesium Total Bilirubin AST ALT Alkaline Phosphatase Total Protein Albumin Blood Type O POSITIVE Antibody Screen Negative Crossmatch See Detail 08/03/20 08/03/20 08/03/20 05:53 05:53 18:35 WBC RBC Hgb Hct MCV MCH MCHC RDW Plt Count MPV PT with INR 25.20 H INR 2.12 H PTT (Actin FS) 65.2 H Sodium 132 L 132 L Potassium 3.7 4.4 Chloride 102 103 Carbon Dioxide 23 23 Anion Gap 8 6 L BUN 16.0 17.1 Creatinine < 0.2 L < 0.2 L Est GFR (CKD-EPI)AfAm 196.46 196.46 Est GFR (CKD-EPI)NonAf 169.51 169.51 Random Glucose 109 H 126 H Calcium 6.3 L* 6.5 L* Phosphorus 2.7 Magnesium 1.3 L Total Bilirubin 1.1 H AST 32 ALT 31 Alkaline Phosphatase 331 H Total Protein 3.6 L Albumin 1.5 L Blood Type Antibody Screen Crossmatch Active Medications Generic Name Dose Route Start Last Admin Trade Name Freq PRN Reason Stop Dose Admin Acetaminophen 500 mg 08/01/20 10:00 08/03/20 16:43 Ofirmev Injection - IVPB 500 mg Q6H [facility]UL Administration Ascorbic Acid 500 mg 07/27/20 13:00 08/03/20 10:51 Vitamin C - PO 500 mg DAILY [facility] Administration Banana Based Medical Food 2 packet 08/03/20 11:35 08/03/20 14:44 Banatrol Plus Powder Packet GT 2 packet TID [facility] Administration Dextrose 12.5 gm 07/08/20 07:08 07/31/20 06:34 D50w (Vial) - IVPUSH 12.5 gm PRN PRN Administration HYPOGLYCEMIA Folic Acid 1 mg 07/06/20 10:00 08/03/20 10:51 Folic Acid - NGT 1 mg DAILY [facility] Administration Heparin Sodium (Porcine) 5,000 unit 07/20/20 10:00 08/03/20 10:51 Heparin - SQ 5,000 unit BID [facility] Administration Hydromorphone HCl 1 mg 07/26/20 13:39 08/03/20 13:46 Dilaudid Vial - IVPUSH 1 mg Q3H PRN Administration PAIN LEVEL 7 - 10 Dexmedetomidine/Sodium Chloride 400 mcg in 100 mls @ 1.542 mls/hr 07/25/20 11:15 08/03/20 10:42 Precedex 400 Mcg/100 Ml Inject IVPB 0.7 mcg/kg/hr TITR [facility]UL 5.398 mls/hr Administration 0.2 MCG/KG/HR Tigecycline 50 mg/ Dextrose 100 mls @ 100 mls/hr 07/28/20 10:00 08/03/20 10:50 IVPB 100 mls/hr BID [facility] Administration Protocol Vasopressin 40 units/ Sodium 100 mls @ 5 mls/hr 08/01/20 21:30 08/02/20 21:33 Chloride IVPB 1 units/hr TITR [facility]UL 2.5 mls/hr Administration Protocol 2 UNITS/HR Sodium Chloride 20 meq/ Amino 1,005 mls @ 42 mls/hr 08/03/20 13:00 08/03/20 17:00 Acids IV 42 mls/hr Q24H [facility] Administration Lidocaine HCl 1 applic 07/25/20 21:50 08/03/20 10:41 Xylocaine 5% Top. Ointment TP 1 applic DAILY [facility] Administration Multi-Ingredient Ointment 1 applic 07/19/20 13:30 08/03/20 10:42 Zinc Oxide TP 1 applic DAILY [facility] Administration Multivitamins/Minerals 15 ml 07/06/20 11:45 08/03/20 10:51 Certavite-Antioxidant Liquid NGT 15 ml DAILY [facility] Administration Potassium Chloride 40 meq 07/17/20 12:30 08/03/20 10:50 Potassium Chloride Oral Liquid PO 40 meq DAILY [facility] Administration Potassium Phos/Sodium Phos 1 packet 07/09/20 14:00 08/03/20 06:10 Phos-Nak Packet - PO 1 packet TID [facility] Administration Thiamine HCl 100 mg 07/11/20 12:45 08/03/20 10:52 Vitamin B1 Injection - IVPB 100 mg DAILY [facility] Administration ASSESSMENT/PLAN: 35 yo female with PMH of malnutrition 2/2 bulimia and polysubstance use disorder, cirrhosis, & heroin abuse, in ICU with sepsis and acute hypoxic respiratory failure, now s/p trach, sp abdominal peritoneal drain, s/p peg placement. Neuro - Alert, responsive, able to communicate with writing and mouthing words - Dilaudid 1g, q3h - Dexmedetomidine CV - Septic Shock 2/2 UTI - Baseline BP with systolic 80s - titrate off vasso today - if MAP < 60, consider dopamine drip instead because of vaso affect of patient's ADH Pulm - Acute Hypoxic Respiratory Failure, s/p Tracheostomy - s/p trach on 07/25; maintain SpO2 >90% - continue daily trials of CPAP with supported breaths - Chest tube drained 600 cc since yesterday. - CXR showed improvement of L lung pneumo. - If CXR is stable, consider seal chest tube for 24 hours and monitor with repeat CXR if CXR does not worsen, consider removing chest tube GI - SBO >> resolved - Refeeding Syndrome Risk - Ascites, 2/2 to hypoalbunemia/cirrhosis - Peritoneal drain placed on 07/27 - SAAG score < 1.1 (less likely from portal HTN) - PEG Tube placed 07/31 - IV Tylenol 500 mg Q6h: keep to 2 g daily for liver disease - albumin repleted today - increased diarrhea, increased banana bags to 2 bags TID - mistry in place - UTI - with diarrhea urine is looking very discolored with high sediment. ) Renal - Hypoalbuminemia; 2/2 severe malnutrition - Renal following (Dr. Chavez) - sodium stabalized while patient back on vasso - titrate off vaso today, monitor sodium off vasso, - if sodium drops start desmopression - if urine output increases start desmopressin ID - Septic Shock; multifactorial 2/2 UTI and likely Aspiration pneumonia - Likely Aspiration Pneumonia - Urine Cx +ESBL Klebsiella pneumo, carbapenem-resistent - S/p Vanc/Zosyn/Meropenem - currently on Tigecycline (Day 7) - ID following (Dr. Martines) Heme - Chronically Elevated PT/INR & PTT - Anemia/Thrombocytopenia, most likely 2/2 liver cirrhosis - check coags daily - vitamin K and albumin given today Psych - Hx of Alcohol/Heroin Abuse - Drug cessation counseling - bulimia/eating disorder Derm - Multiple Sacral Ulcers (stage 4) - Daily wound care, air mattress - Off-loading to all bony areas (heels, ankles, hips and tailbone) with Allevyn/Optifoam Prophylaxis - DVT ppx: BID SQH because of low bodyweight FEN - Sodium stabilized - check and replete electrolytes as needed - Restart Perative Tube feeds, titrate up to 55 - stop prosource - increase banana bags for diarrhea LTD - Trach - 07/25 - Pigtail catheter (07/27) drained 270 cc last 24 hrs - Rectal tube - Mistry - Chest tube placed (08/02) drained 600 cc over 24 hours Dispo - Cont to monitor in ICU - 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 - New Patient This patient is new to me today: No - Critical Care Critical Care patient: Yes Total Critical Care Time (in minutes): 36 Critical Care Statement: The care of this patient involved high complexity decision making to prevent further life threatening deterioration of the patient's condition and/or to evaluate & treat vital organ system(s) failure or risk of failure. - Discharge Referral Referred to [facility] Med [facility] No ATTENDING PHYSICIAN STATEMENT I saw and evaluated the patient. I reviewed the resident's note and discussed the case with the resident. I agree with the resident's findings and plan as documented. SUBJECTIVE: OBJECTIVE: ASSESSMENT AND PLAN:
--- NOTE | 2020-08-03 21:24 | PN ---
Progress Note, Physician - Current Medication List Current Medications: Active Medications Acetaminophen (Ofirmev Injection -) 500 mg IVPB Q6H [facility] Last Admin: 08/03/20 16:43 Dose: 500 mg Documented by: Ascorbic Acid (Vitamin C -) 500 mg PO DAILY [facility] Last Admin: 08/03/20 10:51 Dose: 500 mg Documented by: Banana Based Medical Food (Banatrol Plus Powder Packet) 2 packet GT TID [facility] Last Admin: 08/03/20 14:44 Dose: 2 packet Documented by: Dextrose (D50w (Vial) -) 12.5 gm IVPUSH PRN PRN PRN Reason: HYPOGLYCEMIA Last Admin: 07/31/20 06:34 Dose: 12.5 gm Documented by: Folic Acid (Folic Acid -) 1 mg NGT DAILY [facility] Last Admin: 08/03/20 10:51 Dose: 1 mg Documented by: Heparin Sodium (Porcine) (Heparin -) 5,000 unit SQ BID [facility] Last Admin: 08/03/20 10:51 Dose: 5,000 unit Documented by: Hydromorphone HCl (Dilaudid Vial -) 1 mg IVPUSH Q3H PRN PRN Reason: PAIN LEVEL 7 - 10 Last Admin: 08/03/20 13:46 Dose: 1 mg Documented by: Dexmedetomidine/Sodium Chloride (Precedex 400 Mcg/100 Ml Inject) 400 mcg in 100 mls @ 1.542 mls/hr IVPB TITR [facility] Last Admin: 08/03/20 10:42 Dose: 0.7 mcg/kg/hr, 5.398 mls/hr Documented by: Tigecycline 50 mg/ Dextrose 100 mls @ 100 mls/hr IVPB BID [facility]; Protocol Last Admin: 08/03/20 10:50 Dose: 100 mls/hr Documented by: Vasopressin 40 units/ Sodium (Chloride) 100 mls @ 5 mls/hr IVPB TITR [facility]; Protocol Last Admin: 08/02/20 21:33 Dose: 1 units/hr, 2.5 mls/hr Documented by: Sodium Chloride 20 meq/ Amino (Acids) 1,005 mls @ 42 mls/hr IV Q24H [facility] Last Admin: 08/03/20 17:00 Dose: 42 mls/hr Documented by: Lidocaine HCl (Xylocaine 5% Top. Ointment) 1 applic TP DAILY [facility] Last Admin: 08/03/20 10:41 Dose: 1 applic Documented by: Multi-Ingredient Ointment (Zinc Oxide) 1 applic TP DAILY [facility] Last Admin: 08/03/20 10:42 Dose: 1 applic Documented by: Multivitamins/Minerals (Certavite-Antioxidant Liquid) 15 ml NGT DAILY [facility] Last Admin: 08/03/20 10:51 Dose: 15 ml Documented by: Potassium Chloride (Potassium Chloride Oral Liquid) 40 meq PO DAILY [facility] Last Admin: 08/03/20 10:50 Dose: 40 meq Documented by: Potassium Phos/Sodium Phos (Phos-Nak Packet -) 1 packet PO TID [facility] Last Admin: 08/03/20 06:10 Dose: 1 packet Documented by: Thiamine HCl (Vitamin B1 Injection -) 100 mg IVPB DAILY [facility] Last Admin: 08/03/20 10:52 Dose: 100 mg Documented by: - Objective Vital Signs: Vital Signs Temperature 97.9 F 08/03/20 18:00 Pulse Rate 53 L 08/03/20 18:00 Respiratory Rate 15 08/03/20 20:30 Blood Pressure 90/69 08/03/20 18:00 O2 Sat by Pulse Oximetry (%) 100 08/03/20 20:30 Labs: CBC, BMP 08/03/20 05:53 08/03/20 18:35 INR, PTT INR 2.12 (0.83-1.09) H 08/03/20 05:53 Fibrinogen 344.0 mg/dL (238-498) 07/21/20 06:00 Problem List - Problems (1) Respiratory failure Code(s): J96.90 - RESPIRATORY FAILURE, UNSP, UNSP W HYPOXIA OR HYPERCAPNIA (2) Sepsis Code(s): A41.9 - SEPSIS, UNSPECIFIED ORGANISM Qualifiers: Sepsis type: sepsis due to unspecified organism Sepsis acute organ dysfunction status: unspecified Qualified Code(s): A41.9 - Sepsis, unspecified organism (3) Anemia Code(s): D64.9 - ANEMIA, UNSPECIFIED (4) At risk for electrolyte imbalance Code(s): Z91.89 - OTH PERSONAL RISK FACTORS, NOT ELSEWHERE CLASSIFIED (5) SBO (small bowel obstruction) Code(s): K56.609 - UNSP INTESTNL OBST, UNSP TO PARTIAL VERSUS COMPLETE OBST (6) Liver cirrhosis, alcoholic Code(s): K70.30 - ALCOHOLIC CIRRHOSIS OF LIVER WITHOUT ASCITES (7) Hypoalbuminemia Code(s): E88.09 - OTH DISORDERS OF PLASMA-PROTEIN METABOLISM, NEC (8) Substance abuse Code(s): F19.10 - OTHER PSYCHOACTIVE SUBSTANCE ABUSE, UNCOMPLICATED (9) Cachexia Code(s): R64 - CACHEXIA (10) Severe malnutrition Code(s): E43 - UNSPECIFIED SEVERE PROTEIN-CALORIE MALNUTRITION (11) Sacral ulcer Code(s): L98.429 - NON-PRESSURE CHRONIC ULCER OF BACK WITH UNSPECIFIED SEVERITY
[2020-08-03] MEDS: VASOPRESSIN 40 UNITS in SODIUM CHLORIDE 98 ML IVPB SCH (22:15)
[2020-08-04] MEDS: HYDROmorphone HCl 2 MG/ML VIAL IVPUSH PRN ×5 (01:20→17:30)
[2020-08-04] MEDS: ACETAMINOPHEN 1000 MG/100 ML VIAL (NON FORMULARY) IVPB SCH ×4 (04:22→22:26)
[2020-08-04] MEDS: BANATROL PLUS POWDER PACKET GT SCH ×3 (05:53→22:23)
[2020-08-04 07:00] LABS: HEMATOCRIT 31.7 % (32.4-45.2); HEMOGLOBIN 10.6 GM/dL (10.7-15.3); MCH 30.5 pg (25.7-33.7); MCHC 33.4 g/dl (32.0-36.0); MEAN CELL VOLUME 91.4 fl (80-96); MEAN PLT VOLUME 8.3 fl (7.5-11.1); PLATELET COUNT 137 K/MM3 (134-434); RBC 3.47 M/mm3 (3.60-5.2); RDW 17.9 % (11.6-15.6); WHITE BLOOD COUNT 9.8 K/mm3 (4.0-10.0)
[2020-08-04 07:04] LABS: INR 1.7 (0.83-1.09); PROTHROMBIN TIME (PATIENT) 20.2 SEC (9.7-13.0)
[2020-08-04 07:06] LABS: ACTIVATED PTT 49.7 SECONDS (25.2-36.5)
[2020-08-04 07:35] LABS: ALBUMIN 1.6 g/dl (3.4-5.0); BILIRUBIN,TOTAL 0.8 mg/dL (0.2-1); BLOOD UREA NITROGEN 14.6 mg/dL (7-18); CREATININE 0.2 mg/dL (0.55-1.3); MAGNESIUM 1.9 mg/dL (1.8-2.4); POTASSIUM 4.3 mmol/L (3.5-5.1); TOT PROT 3.8 g/dl (6.4-8.2)
[2020-08-04 07:41] LABS: CALCIUM 6.7 mg/dL (8.5-10.1)
--- NOTE | 2020-08-04 08:11 | PN ---
Progress Note (short form) - Note Progress Note: PULM/CCM Patient seen and examined in ICU. Awake, alert. not in acute distress, trach to vent. Vent settings: AC: 15/350/40%/+0. Left pleural cath in place. Off pressors at this time. Profuse diarrhea over night, decreased tube feed rate. Vital Signs Period Temp Pulse Resp BP Sys/Campbell Pulse Ox Last 24 Hr 97.9 F-98.5 F 51-83 15- 81-113/49-98 94-100 Intake & Output 08/01/20 08/02/20 08/03/20 08/04/20 23:59 23:59 23:59 23:59 Intake Total 1763.8 1826.2 1125.4 1357 Output Total 1690 1540 800 660 Balance 73.8 286.2 325.4 697 Weight 34.4 kg 34.2 kg 34.2 kg Active Medications Acetaminophen (Ofirmev Injection -) 500 mg IVPB Q6H [facility] Last Admin: 08/04/20 04:22 Dose: 500 mg Documented by: Ascorbic Acid (Vitamin C -) 500 mg PO DAILY [facility] Last Admin: 08/03/20 10:51 Dose: 500 mg Documented by: Banana Based Medical Food (Banatrol Plus Powder Packet) 2 packet GT TID [facility] Last Admin: 08/04/20 05:53 Dose: 2 packet Documented by: Dextrose (D50w (Vial) -) 12.5 gm IVPUSH PRN PRN PRN Reason: HYPOGLYCEMIA Last Admin: 07/31/20 06:34 Dose: 12.5 gm Documented by: Folic Acid (Folic Acid -) 1 mg NGT DAILY [facility] Last Admin: 08/03/20 10:51 Dose: 1 mg Documented by: Heparin Sodium (Porcine) (Heparin -) 5,000 unit SQ BID [facility] Last Admin: 08/03/20 22:14 Dose: 5,000 unit Documented by: Hydromorphone HCl (Dilaudid Vial -) 1 mg IVPUSH Q3H PRN PRN Reason: PAIN LEVEL 7 - 10 Last Admin: 08/04/20 08:34 Dose: 1 mg Documented by: Dexmedetomidine/Sodium Chloride (Precedex 400 Mcg/100 Ml Inject) 400 mcg in 100 mls @ 1.542 mls/hr IVPB TITR [facility] Last Admin: 08/03/20 10:42 Dose: 0.7 mcg/kg/hr, 5.398 mls/hr Documented by: Tigecycline 50 mg/ Dextrose 100 mls @ 100 mls/hr IVPB BID [facility]; Protocol Last Admin: 08/03/20 21:53 Dose: 100 mls/hr Documented by: Vasopressin 40 units/ Sodium (Chloride) 100 mls @ 5 mls/hr IVPB TITR [facility]; Protocol Last Admin: 08/03/20 22:15 Dose: 1 units/hr, 2.5 mls/hr Documented by: Sodium Chloride 20 meq/ Amino (Acids) 1,005 mls @ 42 mls/hr IV Q24H [facility] Last Admin: 08/03/20 17:00 Dose: 42 mls/hr Documented by: Lidocaine HCl (Xylocaine 5% Top. Ointment) 1 applic TP DAILY [facility] Last Admin: 08/03/20 10:41 Dose: 1 applic Documented by: Multi-Ingredient Ointment (Zinc Oxide) 1 applic TP DAILY [facility] Last Admin: 08/03/20 10:42 Dose: 1 applic Documented by: Multivitamins/Minerals (Certavite-Antioxidant Liquid) 15 ml NGT DAILY [facility] Last Admin: 08/03/20 10:51 Dose: 15 ml Documented by: Potassium Chloride (Potassium Chloride Oral Liquid) 40 meq PO DAILY [facility] Last Admin: 08/03/20 10:50 Dose: 40 meq Documented by: Potassium Phos/Sodium Phos (Phos-Nak Packet -) 1 packet PO TID [facility] Last Admin: 08/03/20 06:10 Dose: 1 packet Documented by: Thiamine HCl (Vitamin B1 Injection -) 100 mg IVPB DAILY [facility] Last Admin: 08/03/20 10:52 Dose: 100 mg Documented by: Gen: vented, awake and alert, cachectic Heart: RRR, S1, S2 Lung: Vented, scattered rhonchi, Left pleural catheter Abd: soft, GT, +BS in all 4 quandrants Ext: no edema CBC, BMP 08/04/20 05:20 08/04/20 05:20 A/ Acute Hypoxic Respiratory Failure s/p Tracheostomy Pneumonia likely Aspiration UTI Sepsis Hyponatremia (resolved) Small Bowel Obstruction Ascites s/p Peritoneal drain placement Alcohol/Heroin Abuse Anemia/Thrombocytopenia (resolved) Failure to Thrive Severe Protein Calorie Malnutrition Refeeding Syndrome P/ - Titrate Precedex for RASS 0 - Will leave pigtail to suction today, no improvement on the CXR, possible wa ter seal tomorrow if stable - Peritoneal drain in place with moderate output amount - pain control with Ofirmev and - monitor urine output, creatinine - Trend and replete lytes - continue antibiotics - Consider midodrine for blood pressure support - Hold spontaneous breathing trials for now - Continue Clinimix and tube feeds at reduced rate (reduced from 40 to 20 ml/hr) - Heparin for DVT ppx - Added famotidine for GI prophylaxis - PT Dispo: full code Neda Zavala [id number]
[2020-08-04] MEDS ORDERED: PT OWN MED DRAWER 7, Y5N ONE ×2 (09:03→22:18)
[2020-08-04] MEDS: FOLIC ACID 1 MG TABLET (FP) NGT SCH (09:56)
[2020-08-04] MEDS: MULTIVIT-MINERALS ORAL LIQUID NGT SCH (09:56)
[2020-08-04] MEDS: HEPARIN NA (PORCINE) 5,000 UNITS/ML 1ML VIAL SQ SCH ×2 (09:56→22:23)
[2020-08-04] MEDS: THIAMINE HCL 200 MG/2 ML VIAL IVPB SCH (09:57)
[2020-08-04] MEDS: TIGECYCLINE 50 MG in DEXTROSE 5%-WATER - 100 ML IVPB SCH ×2 (09:57→22:23)
[2020-08-04] MEDS: ASCORBIC ACID 500 MG TABLET (FP) PO SCH (09:57)
[2020-08-04] MEDS: ZINC OXIDE 20% TOPICAL OINTMENT 30 GM TUBE TP SCH (09:57)
[2020-08-04] MEDS: LIDOCAINE HCL 5% TOP OINTMENT 50 GM TUBE TP SCH (09:57)
[2020-08-04] MEDS: POTASSIUM CHLORIDE ORAL LIQUID 20 MEQ/15 ML PO SCH (09:57)
[2020-08-04] MEDS: DEXMEDETOMIDINE IN 0.9 % NACL 400 MCG/100 ML VIAL IVPB SCH ×2 (12:00→19:49)
--- NOTE | 2020-08-04 12:20 | PN ---
Progress Note, Physician History of Present Illness: seen and examined in ICU. Awake, alert. not in acute distress, trach to vent. . Left pleural cath in place. Off pressors at this time. Profuse diarrhea over night, awake and alert - Current Medication List Current Medications: Active Medications Acetaminophen (Ofirmev Injection -) 500 mg IVPB Q6H [facility] Last Admin: 08/04/20 09:56 Dose: 500 mg Documented by: Ascorbic Acid (Vitamin C -) 500 mg PO DAILY [facility] Last Admin: 08/04/20 09:57 Dose: 500 mg Documented by: Banana Based Medical Food (Banatrol Plus Powder Packet) 2 packet GT TID [facility] Last Admin: 08/04/20 05:53 Dose: 2 packet Documented by: Dextrose (D50w (Vial) -) 12.5 gm IVPUSH PRN PRN PRN Reason: HYPOGLYCEMIA Last Admin: 07/31/20 06:34 Dose: 12.5 gm Documented by: Famotidine (Pepcid) 20 mg PEG DAILY [facility] Folic Acid (Folic Acid -) 1 mg NGT DAILY [facility] Last Admin: 08/04/20 09:56 Dose: 1 mg Documented by: Heparin Sodium (Porcine) (Heparin -) 5,000 unit SQ BID [facility] Last Admin: 08/04/20 09:56 Dose: 5,000 unit Documented by: Hydromorphone HCl (Dilaudid Vial -) 1 mg IVPUSH Q3H PRN PRN Reason: PAIN LEVEL 7 - 10 Last Admin: 08/04/20 08:34 Dose: 1 mg Documented by: Dexmedetomidine/Sodium Chloride (Precedex 400 Mcg/100 Ml Inject) 400 mcg in 100 mls @ 1.542 mls/hr IVPB TITR [facility] Last Admin: 08/03/20 10:42 Dose: 0.7 mcg/kg/hr, 5.398 mls/hr Documented by: Tigecycline 50 mg/ Dextrose 100 mls @ 100 mls/hr IVPB BID [facility]; Protocol Last Admin: 08/04/20 09:57 Dose: 100 mls/hr Documented by: Vasopressin 40 units/ Sodium (Chloride) 100 mls @ 5 mls/hr IVPB TITR [facility]; Protocol Last Admin: 08/03/20 22:15 Dose: 1 units/hr, 2.5 mls/hr Documented by: Sodium Chloride 20 meq/ Amino (Acids) 1,005 mls @ 42 mls/hr IV Q24H [facility] Last Admin: 08/03/20 17:00 Dose: 42 mls/hr Documented by: Lidocaine HCl (Xylocaine 5% Top. Ointment) 1 applic TP DAILY [facility] Last Admin: 08/04/20 09:57 Dose: 1 applic Documented by: Multi-Ingredient Ointment (Zinc Oxide) 1 applic TP DAILY [facility] Last Admin: 08/04/20 09:57 Dose: 1 applic Documented by: Multivitamins/Minerals (Certavite-Antioxidant Liquid) 15 ml NGT DAILY [facility] Last Admin: 08/04/20 09:56 Dose: 15 ml Documented by: Potassium Chloride (Potassium Chloride Oral Liquid) 40 meq PO DAILY [facility] Last Admin: 08/04/20 09:57 Dose: 40 meq Documented by: Potassium Phos/Sodium Phos (Phos-Nak Packet -) 1 packet PO TID [facility] Last Admin: 08/03/20 06:10 Dose: 1 packet Documented by: Thiamine HCl (Vitamin B1 Injection -) 100 mg IVPB DAILY [facility] Last Admin: 08/04/20 09:57 Dose: 100 mg Documented by: - Objective Vital Signs: Vital Signs Temperature 97.9 F 08/03/20 18:00 Pulse Rate 79 08/04/20 08:29 Respiratory Rate 17 08/04/20 11:57 Blood Pressure 91/66 08/04/20 06:00 O2 Sat by Pulse Oximetry (%) 94 L 08/04/20 08:29 Constitutional: Yes: Other Cardiovascular: Yes: Tachycardia, S1, S2 Respiratory: Yes: Mechanically Ventilated, Other (trach in place) Gastrointestinal: Yes: Other (dirrhoea) Musculoskeletal: Yes: WNL Extremities: Yes: Other Neurological: Yes: Alert Labs: CBC, BMP 08/04/20 05:20 08/04/20 05:20 INR, PTT INR 1.70 (0.83-1.09) H 08/04/20 05:20 Fibrinogen 344.0 mg/dL (238-498) 07/21/20 06:00 Assessment/Plan Pneumonia likely Aspiration UTI Sepsis Hyponatremia SBO resolving Alcohol/Heroin Abuse Anemia Failure to Thrive Severe Protein Calorie Malnutrition uti sacral wounds plan continue abx nutrition as per icu vent mgmt repeat cx if needed close watch please get a cdiff cc 38 min
--- NOTE | 2020-08-04 15:28 | PN ---
Progress Note, Physician History of Present Illness: Pt seen and examined at bedside. SHe is awake and alert. - Current Medication List Current Medications: Active Medications Acetaminophen (Ofirmev Injection -) 500 mg IVPB Q6H [facility] Last Admin: 08/04/20 09:56 Dose: 500 mg Documented by: Ascorbic Acid (Vitamin C -) 500 mg PO DAILY [facility] Last Admin: 08/04/20 09:57 Dose: 500 mg Documented by: Banana Based Medical Food (Banatrol Plus Powder Packet) 2 packet GT TID [facility] Last Admin: 08/04/20 05:53 Dose: 2 packet Documented by: Dextrose (D50w (Vial) -) 12.5 gm IVPUSH PRN PRN PRN Reason: HYPOGLYCEMIA Last Admin: 07/31/20 06:34 Dose: 12.5 gm Documented by: Famotidine (Pepcid) 20 mg PEG DAILY [facility] Folic Acid (Folic Acid -) 1 mg NGT DAILY [facility] Last Admin: 08/04/20 09:56 Dose: 1 mg Documented by: Heparin Sodium (Porcine) (Heparin -) 5,000 unit SQ BID [facility] Last Admin: 08/04/20 09:56 Dose: 5,000 unit Documented by: Hydromorphone HCl (Dilaudid Vial -) 1 mg IVPUSH Q3H PRN PRN Reason: PAIN LEVEL 7 - 10 Last Admin: 08/04/20 08:34 Dose: 1 mg Documented by: Dexmedetomidine/Sodium Chloride (Precedex 400 Mcg/100 Ml Inject) 400 mcg in 100 mls @ 1.542 mls/hr IVPB TITR [facility] Last Admin: 08/03/20 10:42 Dose: 0.7 mcg/kg/hr, 5.398 mls/hr Documented by: Tigecycline 50 mg/ Dextrose 100 mls @ 100 mls/hr IVPB BID [facility]; Protocol Last Admin: 08/04/20 09:57 Dose: 100 mls/hr Documented by: Vasopressin 40 units/ Sodium (Chloride) 100 mls @ 5 mls/hr IVPB TITR [facility]; Protocol Last Admin: 08/03/20 22:15 Dose: 1 units/hr, 2.5 mls/hr Documented by: Sodium Chloride 20 meq/ Amino (Acids) 1,005 mls @ 42 mls/hr IV Q24H [facility] Last Admin: 08/03/20 17:00 Dose: 42 mls/hr Documented by: Lidocaine HCl (Xylocaine 5% Top. Ointment) 1 applic TP DAILY [facility] Last Admin: 08/04/20 09:57 Dose: 1 applic Documented by: Multi-Ingredient Ointment (Zinc Oxide) 1 applic TP DAILY [facility] Last Admin: 08/04/20 09:57 Dose: 1 applic Documented by: Multivitamins/Minerals (Certavite-Antioxidant Liquid) 15 ml NGT DAILY [facility] Last Admin: 08/04/20 09:56 Dose: 15 ml Documented by: Potassium Chloride (Potassium Chloride Oral Liquid) 40 meq PO DAILY [facility] Last Admin: 08/04/20 09:57 Dose: 40 meq Documented by: Potassium Phos/Sodium Phos (Phos-Nak Packet -) 1 packet PO TID [facility] Last Admin: 08/03/20 06:10 Dose: 1 packet Documented by: Thiamine HCl (Vitamin B1 Injection -) 100 mg IVPB DAILY [facility] Last Admin: 08/04/20 09:57 Dose: 100 mg Documented by: - Objective Vital Signs: Vital Signs Temperature 97.9 F 08/03/20 18:00 Pulse Rate 79 08/04/20 08:29 Respiratory Rate 17 08/04/20 11:57 Blood Pressure 91/66 08/04/20 06:00 O2 Sat by Pulse Oximetry (%) 94 L 08/04/20 08:29 Constitutional: Yes: Calm Eyes: Yes: Conjunctiva Clear HENT: Yes: Atraumatic Cardiovascular: Yes: S1, S2 Respiratory: Yes: Mechanically Ventilated Gastrointestinal: Yes: Soft Genitourinary: Yes: Uribe Present Musculoskeletal: Yes: Muscle Weakness Edema: No Neurological: Yes: Oriented Labs: CBC, BMP 08/04/20 05:20 08/04/20 05:20 INR, PTT INR 1.70 (0.83-1.09) H 08/04/20 05:20 Fibrinogen 344.0 mg/dL (238-498) 07/21/20 06:00 Problem List - Problems (1) Hypoglycemia Code(s): E16.2 - HYPOGLYCEMIA, UNSPECIFIED (2) Sepsis Code(s): A41.9 - SEPSIS, UNSPECIFIED ORGANISM Qualifiers: Sepsis type: sepsis due to unspecified organism Sepsis acute organ dysfunction status: unspecified Qualified Code(s): A41.9 - Sepsis, unspecified organism (3) Hypoalbuminemia Code(s): E88.09 - OTH DISORDERS OF PLASMA-PROTEIN METABOLISM, NEC (4) Hyponatremia Code(s): E87.1 - HYPO-OSMOLALITY AND HYPONATREMIA Assessment/Plan Current Medications Generic Name Dose Route Start Last Admin Trade Name Freq PRN Reason Stop Dose Admin Acetaminophen 500 mg 08/01/20 10:00 08/04/20 09:56 Ofirmev Injection - IVPB 500 mg Q6H [facility] Administration Ascorbic Acid 500 mg 07/27/20 13:00 08/04/20 09:57 Vitamin C - PO 500 mg DAILY [facility] Administration Banana Based Medical Food 2 packet 08/03/20 11:35 08/04/20 05:53 Banatrol Plus Powder Packet GT 2 packet TID [facility] Administration Dextrose 12.5 gm 07/08/20 07:08 07/31/20 06:34 D50w (Vial) - IVPUSH 12.5 gm PRN PRN Administration HYPOGLYCEMIA Famotidine 20 mg 08/04/20 10:45 Pepcid PEG DAILY [facility] Folic Acid 1 mg 07/06/20 10:00 08/04/20 09:56 Folic Acid - NGT 1 mg DAILY [facility] Administration Heparin Sodium (Porcine) 5,000 unit 07/20/20 10:00 08/04/20 09:56 Heparin - SQ 5,000 unit BID [facility] Administration Hydromorphone HCl 1 mg 07/26/20 13:39 08/04/20 08:34 Dilaudid Vial - IVPUSH 1 mg Q3H PRN Administration PAIN LEVEL 7 - 10 Dexmedetomidine/Sodium Chloride 400 mcg in 100 mls @ 1.542 mls/hr 07/25/20 11:15 08/03/20 10:42 Precedex 400 Mcg/100 Ml Inject IVPB 0.7 mcg/kg/hr TITR [facility] 5.398 mls/hr Administration 0.2 MCG/KG/HR Tigecycline 50 mg/ Dextrose 100 mls @ 100 mls/hr 07/28/20 10:00 08/04/20 09:57 IVPB 100 mls/hr BID [facility] Administration Protocol Vasopressin 40 units/ Sodium 100 mls @ 5 mls/hr 08/01/20 21:30 08/03/20 22:15 Chloride IVPB 1 units/hr TITR [facility] 2.5 mls/hr Administration Protocol 2 UNITS/HR Sodium Chloride 20 meq/ Amino 1,005 mls @ 42 mls/hr 08/03/20 13:00 08/03/20 17:00 Acids IV 42 mls/hr Q24H [facility] Administration Lidocaine HCl 1 applic 07/25/20 21:50 08/04/20 09:57 Xylocaine 5% Top. Ointment TP 1 applic DAILY [facility] Administration Multi-Ingredient Ointment 1 applic 07/19/20 13:30 08/04/20 09:57 Zinc Oxide TP 1 applic DAILY [facility] Administration Multivitamins/Minerals 15 ml 07/06/20 11:45 08/04/20 09:56 Certavite-Antioxidant Liquid NGT 15 ml DAILY [facility] Administration Potassium Chloride 40 meq 07/17/20 12:30 08/04/20 09:57 Potassium Chloride Oral Liquid PO 40 meq DAILY [facility] Administration Potassium Phos/Sodium Phos 1 packet 07/09/20 14:00 08/03/20 06:10 Phos-Nak Packet - PO 1 packet TID [facility] Administration Thiamine HCl 100 mg 07/11/20 12:45 08/04/20 09:57 Vitamin B1 Injection - IVPB 100 mg DAILY [facility] Administration Impression 1. azotemia 2. hyponatremia 3. hyperkalemia 4. hypotension 5. sepsis 6. sbo 7. uti 8. liver cirrhosis 9. hypoalbuminemia 10. etoh abuse 11. substance abuse 12. psoriasis 13. acute resp failure 14. malnutrition 15. 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
[2020-08-04] MEDS ORDERED: LORazepam 2 MG/ML SDV VIAL IVPUSH ONE (16:46)
[2020-08-04] MEDS: SODIUM CHLORIDE IV SCH (18:21)
[2020-08-04] MEDS: AMINO ACIDS IV SCH (18:21)
[2020-08-04] MEDS: [UNRECOGNIZED DRUG - OTHER] IV SCH (18:21)
--- NOTE | 2020-08-04 23:33 | PN ---
Progress Note, Physician History of Present Illness: Pt agitated w/ Heart rates 130's - Current Medication List Current Medications: Active Medications Acetaminophen (Ofirmev Injection -) 500 mg IVPB Q6H [facility] Last Admin: 08/04/20 22:26 Dose: 500 mg Documented by: Ascorbic Acid (Vitamin C -) 500 mg PO DAILY [facility] Last Admin: 08/04/20 09:57 Dose: 500 mg Documented by: Banana Based Medical Food (Banatrol Plus Powder Packet) 2 packet GT TID [facility] Last Admin: 08/04/20 22:23 Dose: 2 packet Documented by: Dextrose (D50w (Vial) -) 12.5 gm IVPUSH PRN PRN PRN Reason: HYPOGLYCEMIA Last Admin: 07/31/20 06:34 Dose: 12.5 gm Documented by: Famotidine (Pepcid) 20 mg PEG DAILY [facility] Folic Acid (Folic Acid -) 1 mg NGT DAILY [facility] Last Admin: 08/04/20 09:56 Dose: 1 mg Documented by: Heparin Sodium (Porcine) (Heparin -) 5,000 unit SQ BID [facility] Last Admin: 08/04/20 22:23 Dose: 5,000 unit Documented by: Hydromorphone HCl (Dilaudid Vial -) 1 mg IVPUSH Q3H PRN PRN Reason: PAIN LEVEL 7 - 10 Last Admin: 08/04/20 17:30 Dose: 1 mg Documented by: Dexmedetomidine/Sodium Chloride (Precedex 400 Mcg/100 Ml Inject) 400 mcg in 100 mls @ 1.542 mls/hr IVPB TITR [facility] Last Admin: 08/04/20 19:49 Dose: 0.7 mcg/kg/hr, 5.398 mls/hr Documented by: Tigecycline 50 mg/ Dextrose 100 mls @ 100 mls/hr IVPB BID [facility]; Protocol Last Admin: 08/04/20 22:23 Dose: 100 mls/hr Documented by: Vasopressin 40 units/ Sodium (Chloride) 100 mls @ 5 mls/hr IVPB TITR [facility]; Protocol Last Admin: 08/03/20 22:15 Dose: 1 units/hr, 2.5 mls/hr Documented by: Sodium Chloride 20 meq/ Amino (Acids) 1,005 mls @ 55 mls/hr IV Q24H [facility] Last Admin: 08/04/20 18:21 Dose: 55 mls/hr Documented by: Lidocaine HCl (Xylocaine 5% Top. Ointment) 1 applic TP DAILY [facility] Last Admin: 08/04/20 09:57 Dose: 1 applic Documented by: Multi-Ingredient Ointment (Zinc Oxide) 1 applic TP DAILY [facility] Last Admin: 08/04/20 09:57 Dose: 1 applic Documented by: Multivitamins/Minerals (Certavite-Antioxidant Liquid) 15 ml NGT DAILY [facility] Last Admin: 08/04/20 09:56 Dose: 15 ml Documented by: Potassium Chloride (Potassium Chloride Oral Liquid) 40 meq PO DAILY [facility] Last Admin: 08/04/20 09:57 Dose: 40 meq Documented by: Potassium Phos/Sodium Phos (Phos-Nak Packet -) 1 packet PO TID [facility] Last Admin: 08/03/20 06:10 Dose: 1 packet Documented by: Thiamine HCl (Vitamin B1 Injection -) 100 mg IVPB DAILY [facility] Last Admin: 08/04/20 09:57 Dose: 100 mg Documented by: - Objective Vital Signs: Vital Signs Temperature 99.2 F 08/04/20 18:48 Pulse Rate 140 H 08/04/20 18:48 Respiratory Rate 20 08/04/20 20:44 Blood Pressure 89/70 L 08/04/20 18:48 O2 Sat by Pulse Oximetry (%) 96 08/04/20 20:44 Constitutional: Yes: Cachectic Cardiovascular: Yes: Tachycardia Respiratory: Yes: WNL, Regular, CTA Bilaterally, Other ((+) chest tube Lt chest wall) Gastrointestinal: Yes: WNL, Normal Bowel Sounds, Other (Percutaneous tube draining) Labs: CBC, BMP 08/04/20 05:20 08/04/20 05:20 INR, PTT INR 1.70 (0.83-1.09) H 08/04/20 05:20 Fibrinogen 344.0 mg/dL (238-498) 07/21/20 06:00 Problem List - Problems (1) Respiratory failure Assessment/Plan: Acute on chronic respiratory failure Multifactorial RLL infiltrates ?Asp pneumonia Cont IV Zosyn S/P tracheostomy Code(s): J96.90 - RESPIRATORY FAILURE, UNSP, UNSP W HYPOXIA OR HYPERCAPNIA (2) Sepsis Assessment/Plan: Lactic acidosis Cont IVF Cont IV Tigacil Pt on pressors UTI vs Aspiration pneumonia Blood culture/urine culture negative to date Repeat CXR not much change Code(s): A41.9 - SEPSIS, UNSPECIFIED ORGANISM Qualifiers: Sepsis type: sepsis due to unspecified organism Sepsis acute organ dysfunction status: unspecified Qualified Code(s): A41.9 - Sepsis, unspecified organism (3) Anemia Assessment/Plan: Monitor H/H S/p transfusion PRBC's H/H improved Code(s): D64.9 - ANEMIA, UNSPECIFIED (4) At risk for electrolyte imbalance Assessment/Plan: Electrolytes improved Cont to monitor Code(s): Z91.89 - OT PERSONAL RISK FACTORS, NOT ELSEWHERE CLASSIFIED (5) SBO (small bowel obstruction) Assessment/Plan: Surgical consult noted Cont NPO Cont IVF Monitor serial abdominal xrays Monitor hypoglycemia CT scan abd showed probable anasacra/ascites Pt now on enteral feeds Code(s): K56.609 - UNSP INTESTNL OBST, UNSP TO PARTIAL VERSUS COMPLETE OBST (6) Liver cirrhosis, alcoholic Assessment/Plan: Cont to monitor Poor prognosis Code(s): K70.30 - ALCOHOLIC CIRRHOSIS OF LIVER WITHOUT ASCITES (7) Hypoalbuminemia Code(s): E88.09 - OT DISORDERS OF PLASMA-PROTEIN METABOLISM, NEC (8) Substance abuse Assessment/Plan: Psych consult ?Competency Code(s): F19.10 - OTHER PSYCHOACTIVE SUBSTANCE ABUSE, UNCOMPLICATED (9) Cachexia Assessment/Plan: Due to severe protein malnutrition Code(s): R64 - CACHEXIA (10) Severe malnutrition Code(s): E43 - UNSPECIFIED SEVERE PROTEIN-CALORIE MALNUTRITION (11) Sacral ulcer Assessment/Plan: Surgical consult noted Cont wound care No surgical intervention at this time Code(s): L98.429 - NON-PRESSURE CHRONIC ULCER OF BACK WITH UNSPECIFIED SEVERITY
[2020-08-05] MEDS: HYDROmorphone HCl 2 MG/ML VIAL IVPUSH PRN ×5 (04:24→23:06)
[2020-08-05] MEDS: ACETAMINOPHEN 1000 MG/100 ML VIAL (NON FORMULARY) IVPB SCH ×4 (04:26→21:44)
[2020-08-05] MEDS: BANATROL PLUS POWDER PACKET GT SCH ×3 (05:32→21:19)
[2020-08-05 06:53] LABS: BASO % 0.1 % (0-2.0); EOS % 0.4 % (0-4.5); HEMATOCRIT 29.5 % (32.4-45.2); HEMOGLOBIN 9.7 GM/dL (10.7-15.3); LYMPH % 2.4 % (8-40); MCHC 32.9 g/dl (32.0-36.0); MEAN CELL VOLUME 91.1 fl (80-96); MEAN PLT VOLUME 8.1 fl (7.5-11.1); MONO % 3.2 % (3.8-10.2); NEUT % 93.9 % (42.8-82.8); PLATELET COUNT 96 K/MM3 (134-434); RBC 3.24 M/mm3 (3.60-5.2); RDW 18.4 % (11.6-15.6); WHITE BLOOD COUNT 11.7 K/mm3 (4.0-10.0)
[2020-08-05 07:01] LABS: ALBUMIN 1.4 g/dl (3.4-5.0); ANION GAP 2 MMOL/L (8-16); BILIRUBIN,TOTAL 0.9 mg/dL (0.2-1); BLOOD UREA NITROGEN 19.6 mg/dL (7-18); CHLORIDE 108 mmol/L (98-107); CO2 23 mmol/L (21-32); CREATININE < 0.2 mg/dL (0.55-1.3); GLUCOSE,RANDOM 81 mg/dL (74-106); MAGNESIUM 1.6 mg/dL (1.8-2.4); PHOSPHOROUS 1.3 mg/dL (2.5-4.9); POTASSIUM 5.3 mmol/L (3.5-5.1); SGOT/AST 63 U/L (15-37); SGPT/ALT 37 U/L (13-61); SODIUM 134 mmol/L (136-145); TOT PROT 3.6 g/dl (6.4-8.2)
[2020-08-05 07:06] LABS: ALK PHOS 488 U/L (45-117)
[2020-08-05] MEDS ORDERED: MAGNESIUM SULFATE IN WATER 2 GM/50 ML IVPB IVPB ONE (07:08)
[2020-08-05 07:25] LABS: CALCIUM 6.5 mg/dL (8.5-10.1)
[2020-08-05] MEDS ORDERED: SODIUM PHOSPHATE - 15 MM in DEXTROSE 5%-WATER - 250 ML IVPB ONE (08:30)
[2020-08-05] MEDS: HEPARIN NA (PORCINE) 5,000 UNITS/ML 1ML VIAL SQ SCH ×2 (10:00→21:20)
[2020-08-05] MEDS: TIGECYCLINE 50 MG in DEXTROSE 5%-WATER - 100 ML IVPB SCH ×2 (10:00→23:06)
[2020-08-05] MEDS: ZINC OXIDE 20% TOPICAL OINTMENT 30 GM TUBE TP SCH (10:00)
[2020-08-05] MEDS: FOLIC ACID 1 MG TABLET (FP) NGT SCH (10:00)
[2020-08-05] MEDS: MULTIVIT-MINERALS ORAL LIQUID NGT SCH (10:00)
[2020-08-05] MEDS: POTASSIUM CHLORIDE ORAL LIQUID 20 MEQ/15 ML PO SCH (10:00)
[2020-08-05] MEDS: ASCORBIC ACID 500 MG TABLET (FP) PO SCH (10:00)
[2020-08-05] MEDS: LIDOCAINE HCL 5% TOP OINTMENT 50 GM TUBE TP SCH (10:00)
[2020-08-05] MEDS: THIAMINE HCL 200 MG/2 ML VIAL IVPB SCH (10:00)
--- NOTE | 2020-08-05 10:49 | PN ---
Progress Note (short form) - Note Progress Note: Pulm/CCM Patient seen and examined in ICU. 24Hr: still with loose stools but less so and decrease in Tube Feeds awake, alert off pressors VSS Vital Signs Temp 08/05/20 09:00 Pulse 106 H 08/05/20 09:00 Resp 16 08/05/20 09:00 BP 105/71 08/05/20 09:00 Pulse Ox 100 08/05/20 09:00 Intake & Output 08/04/20 08/04/20 08/05/20 11:59 23:59 11:59 Intake Total 4639 052 7518.8 Output Total 660 780 185 Balance 697 130 879.8 Weight 34.2 kg 32.2 kg Intake: IV 649 724.8 VERN#22 s/l 08/03/20 483 PRECEDEX 400 MCG/100 ML 62 64.8 INJECT 400 mcg In 100 ml @ 0.2 MCG/KG/HR 1.542 mls /hr IVPB TITR [facility] Rx#: [id number] Pitressin - 40 Units In 3 Normal Saline - 98 ml @ 2 UNITS/HR 5 mls/hr IVPB TITR [facility] Rx#:[id number] clinimix 660 tylenol 101 IVPB 208 100 100 Tube Feeding 400 690 240 Tube Irrigant (Tube 100 120 0 Feeding Water) Output: Chest Tube Drainage 60 30 35 Left Lateral Chest 60 30 35 Drainage 0 300 150 Right Abdomen 0 300 150 Urine 600 450 Uribe 600 450 Other: Voiding Method Indwelling Catheter Indwelling Catheter Bowel Movement Yes Yes: 1 # Bowel Movements 2 Weight Measurement Method [facility] Active Medications Acetaminophen (Ofirmev Injection -) 500 mg IVPB Q6H [facility] Last Admin: 08/05/20 09:55 Dose: 500 mg Documented by: Ascorbic Acid (Vitamin C -) 500 mg PO DAILY [facility] Last Admin: 08/05/20 10:00 Dose: 500 mg Documented by: Banana Based Medical Food (Banatrol Plus Powder Packet) 2 packet GT TID [facility] Last Admin: 08/05/20 05:32 Dose: 2 packet Documented by: Dextrose (D50w (Vial) -) 12.5 gm IVPUSH PRN PRN PRN Reason: HYPOGLYCEMIA Last Admin: 07/31/20 06:34 Dose: 12.5 gm Documented by: Famotidine (Pepcid) 20 mg PEG DAILY [facility] Folic Acid (Folic Acid -) 1 mg NGT DAILY [facility] Last Admin: 08/05/20 10:00 Dose: 1 mg Documented by: Heparin Sodium (Porcine) (Heparin -) 5,000 unit SQ BID [facility] Last Admin: 08/05/20 10:00 Dose: 5,000 unit Documented by: Hydromorphone HCl (Dilaudid Vial -) 1 mg IVPUSH Q3H PRN PRN Reason: PAIN LEVEL 7 - 10 Last Admin: 08/05/20 07:25 Dose: 1 mg Documented by: Dexmedetomidine/Sodium Chloride (Precedex 400 Mcg/100 Ml Inject) 400 mcg in 100 mls @ 1.542 mls/hr IVPB TITR [facility] Last Admin: 08/04/20 19:49 Dose: 0.7 mcg/kg/hr, 5.398 mls/hr Documented by: Tigecycline 50 mg/ Dextrose 100 mls @ 100 mls/hr IVPB BID [facility]; Protocol Last Admin: 08/05/20 10:00 Dose: 100 mls/hr Documented by: Sodium Chloride 20 meq/ Amino (Acids) 1,005 mls @ 55 mls/hr IV Q24H [facility] Last Admin: 08/04/20 18:21 Dose: 55 mls/hr Documented by: Sodium Phosphate 15 mm/ (Dextrose) 255 mls @ 42.5 mls/hr IVPB ONCE ONE Stop: 08/05/20 14:29 Lidocaine HCl (Xylocaine 5% Top. Ointment) 1 applic TP DAILY [facility] Last Admin: 08/05/20 10:00 Dose: 1 applic Documented by: Multi-Ingredient Ointment (Zinc Oxide) 1 applic TP DAILY [facility] Last Admin: 08/05/20 10:00 Dose: 1 applic Documented by: Multivitamins/Minerals (Certavite-Antioxidant Liquid) 15 ml NGT DAILY [facility] Last Admin: 08/05/20 10:00 Dose: 15 ml Documented by: Potassium Chloride (Potassium Chloride Oral Liquid) 40 meq PO DAILY [facility] Last Admin: 08/05/20 10:00 Dose: 40 meq Documented by: Potassium Phos/Sodium Phos (Phos-Nak Packet -) 1 packet PO TID [facility] Last Admin: 08/03/20 06:10 Dose: 1 packet Documented by: Thiamine HCl (Vitamin B1 Injection -) 100 mg IVPB DAILY [facility] Last Admin: 08/05/20 10:00 Dose: 100 mg Documented by: Gen: vented, awake and alert, severely cachectic Heart: RRR, S1, S2 Lung: Vented, scattered rhonchi, Left pleural catheter with minimal output Abd: soft, GT, +BS in all 4 quandrants Ext: no edema Neuro: non focal exam, MORTON x 4 Laboratory Results - last 24 hr 08/05/20 08/05/20 08/05/20 00:00 05:30 05:30 WBC 11.7 H RBC 3.24 L Hgb 9.7 L Hct 29.5 L MCV 91.1 MCH 30.0 MCHC 32.9 RDW 18.4 H Plt Count 96 L D MPV 8.1 Absolute Neuts (auto) 11.0 H Neutrophils % 93.9 H Lymphocytes % 2.4 L D Monocytes % 3.2 L Eosinophils % 0.4 Basophils % 0.1 Nucleated RBC % 0 Sodium 134 L Potassium 5.3 H Chloride 108 H Carbon Dioxide 23 Anion Gap 2 L BUN 19.6 H Creatinine < 0.2 L Est GFR (CKD-EPI)AfAm 196.46 Est GFR (CKD-EPI)NonAf 169.51 POC Glucometer Random Glucose 81 Calcium 6.5 L* Phosphorus 1.3 L Magnesium 1.6 L Total Bilirubin 0.9 AST 63 H ALT 37 Alkaline Phosphatase 488 H Total Protein 3.6 L Albumin 1.4 L Urine Osmolality 338 Ur Random Sodium 20 L Ur Random Potassium 26.0 Ur Random Chloride 23 L 08/05/20 06:39 WBC RBC Hgb Hct MCV MCH MCHC RDW Plt Count MPV Absolute Neuts (auto) Neutrophils % Lymphocytes % Monocytes % Eosinophils % Basophils % Nucleated RBC % Sodium Potassium Chloride Carbon Dioxide Anion Gap BUN Creatinine Est GFR (CKD-EPI)AfAm Est GFR (CKD-EPI)NonAf POC Glucometer 114 Random Glucose Calcium Phosphorus Magnesium Total Bilirubin AST ALT Alkaline Phosphatase Total Protein Albumin Urine Osmolality Ur Random Sodium Ur Random Potassium Ur Random Chloride A/ Acute Hypoxic Respiratory Failure s/p Tracheostomy Pneumonia likely Aspiration UTI Sepsis Hyponatremia (resolved) Small Bowel Obstruction Ascites s/p Peritoneal drain placement Alcohol/Heroin Abuse Anemia/Thrombocytopenia (resolved) Failure to Thrive Severe Protein Calorie Malnutrition Refeeding Syndrome P/ - Titrate Precedex for RASS 0 - Pigtail to water seal - Peritoneal drain in place with moderate output amount - pain control with Ofirmev and - monitor urine output, creatinine - Trend and replete lytes - continue antibiotics - Consider midodrine for blood pressure support - Hold spontaneous breathing trials for now - Continue Clinimix and tube feeds at reduced rate - Heparin for DVT ppx - Added famotidine for GI prophylaxis - PT as able Dispo: full code Manuel ACNP [id number]
[2020-08-05 11:30] LABS: ANISOCYTOSIS 1+; MACROCYTOSIS 1+; PLATELET ESTIMATE DECREASED
--- NOTE | 2020-08-05 15:08 | PN ---
Progress Note, Physician History of Present Illness: Pt seen and examined at bedside. No great change in status. - Current Medication List Current Medications: Active Medications Acetaminophen (Ofirmev Injection -) 500 mg IVPB Q6H [facility] Last Admin: 08/05/20 09:55 Dose: 500 mg Documented by: Ascorbic Acid (Vitamin C -) 500 mg PO DAILY [facility] Last Admin: 08/05/20 10:00 Dose: 500 mg Documented by: Banana Based Medical Food (Banatrol Plus Powder Packet) 2 packet GT TID [facility] Last Admin: 08/05/20 05:32 Dose: 2 packet Documented by: Dextrose (D50w (Vial) -) 12.5 gm IVPUSH PRN PRN PRN Reason: HYPOGLYCEMIA Last Admin: 07/31/20 06:34 Dose: 12.5 gm Documented by: Famotidine (Pepcid) 20 mg PEG DAILY [facility] Folic Acid (Folic Acid -) 1 mg NGT DAILY [facility] Last Admin: 08/05/20 10:00 Dose: 1 mg Documented by: Heparin Sodium (Porcine) (Heparin -) 5,000 unit SQ BID [facility] Last Admin: 08/05/20 10:00 Dose: 5,000 unit Documented by: Hydromorphone HCl (Dilaudid Vial -) 1 mg IVPUSH Q3H PRN PRN Reason: PAIN LEVEL 7 - 10 Last Admin: 08/05/20 07:25 Dose: 1 mg Documented by: Dexmedetomidine/Sodium Chloride (Precedex 400 Mcg/100 Ml Inject) 400 mcg in 100 mls @ 1.542 mls/hr IVPB TITR [facility] Last Admin: 08/04/20 19:49 Dose: 0.7 mcg/kg/hr, 5.398 mls/hr Documented by: Tigecycline 50 mg/ Dextrose 100 mls @ 100 mls/hr IVPB BID [facility]; Protocol Last Admin: 08/05/20 10:00 Dose: 100 mls/hr Documented by: Sodium Chloride 20 meq/ Amino (Acids) 1,005 mls @ 55 mls/hr IV Q24H [facility] Last Admin: 08/04/20 18:21 Dose: 55 mls/hr Documented by: Lidocaine HCl (Xylocaine 5% Top. Ointment) 1 applic TP DAILY [facility] Last Admin: 08/05/20 10:00 Dose: 1 applic Documented by: Midazolam HCl (Versed -) 1 mg IVPUSH Q6H PRN PRN Reason: ANXIETY Multi-Ingredient Ointment (Zinc Oxide) 1 applic TP DAILY [facility] Last Admin: 08/05/20 10:00 Dose: 1 applic Documented by: Multivitamins/Minerals (Certavite-Antioxidant Liquid) 15 ml NGT DAILY [facility] Last Admin: 08/05/20 10:00 Dose: 15 ml Documented by: Potassium Chloride (Potassium Chloride Oral Liquid) 40 meq PO DAILY [facility] Last Admin: 08/05/20 10:00 Dose: 40 meq Documented by: Potassium Phos/Sodium Phos (Phos-Nak Packet -) 1 packet PO TID [facility] Last Admin: 08/03/20 06:10 Dose: 1 packet Documented by: Thiamine HCl (Vitamin B1 Injection -) 100 mg IVPB DAILY [facility] Last Admin: 08/05/20 10:00 Dose: 100 mg Documented by: - Objective Vital Signs: Vital Signs Temperature 9702 F H 08/05/20 09:00 Pulse Rate 106 H 08/05/20 09:00 Respiratory Rate 15 08/05/20 11:53 Blood Pressure 105/71 08/05/20 09:00 O2 Sat by Pulse Oximetry (%) 100 08/05/20 09:00 Constitutional: Yes: Calm, Cachectic Eyes: Yes: Conjunctiva Clear Cardiovascular: Yes: S1, S2 Respiratory: Yes: Mechanically Ventilated Gastrointestinal: Yes: Soft Genitourinary: Yes: Uribe Present Musculoskeletal: Yes: Muscle Weakness Neurological: Yes: Oriented Psychiatric: Yes: Oriented Labs: CBC, BMP 08/05/20 05:30 08/05/20 05:30 INR, PTT INR 1.70 (0.83-1.09) H 08/04/20 05:20 Fibrinogen 344.0 mg/dL (238-498) 07/21/20 06:00 Problem List - Problems (1) Hypoglycemia Code(s): E16.2 - HYPOGLYCEMIA, UNSPECIFIED (2) Sepsis Code(s): A41.9 - SEPSIS, UNSPECIFIED ORGANISM Qualifiers: Sepsis type: sepsis due to unspecified organism Sepsis acute organ dysfunction status: unspecified Qualified Code(s): A41.9 - Sepsis, unspecified organism (3) Hypoalbuminemia Code(s): E88.09 - OTH DISORDERS OF PLASMA-PROTEIN METABOLISM, NEC (4) Hyponatremia Code(s): E87.1 - HYPO-OSMOLALITY AND HYPONATREMIA Assessment/Plan Current Medications Generic Name Dose Route Start Last Admin Trade Name Freq PRN Reason Stop Dose Admin Acetaminophen 500 mg 08/01/20 10:00 08/05/20 09:55 Ofirmev Injection - IVPB 500 mg Q6H [facility]UL Administration Ascorbic Acid 500 mg 07/27/20 13:00 08/05/20 10:00 Vitamin C - PO 500 mg DAILY [facility] Administration Banana Based Medical Food 2 packet 08/03/20 11:35 08/05/20 05:32 Banatrol Plus Powder Packet GT 2 packet TID [facility]UL Administration Dextrose 12.5 gm 07/08/20 07:08 07/31/20 06:34 D50w (Vial) - IVPUSH 12.5 gm PRN PRN Administration HYPOGLYCEMIA Famotidine 20 mg 08/04/20 10:45 Pepcid PEG DAILY [facility] Folic Acid 1 mg 07/06/20 10:00 08/05/20 10:00 Folic Acid - NGT 1 mg DAILY [facility] Administration Heparin Sodium (Porcine) 5,000 unit 07/20/20 10:00 08/05/20 10:00 Heparin - SQ 5,000 unit BID [facility] Administration Hydromorphone HCl 1 mg 07/26/20 13:39 08/05/20 07:25 Dilaudid Vial - IVPUSH 1 mg Q3H PRN Administration PAIN LEVEL 7 - 10 Dexmedetomidine/Sodium Chloride 400 mcg in 100 mls @ 1.542 mls/hr 07/25/20 11:15 08/04/20 19:49 Precedex 400 Mcg/100 Ml Inject IVPB 0.7 mcg/kg/hr TITR [facility]UL 5.398 mls/hr Administration 0.2 MCG/KG/HR Tigecycline 50 mg/ Dextrose 100 mls @ 100 mls/hr 07/28/20 10:00 08/05/20 10:00 IVPB 100 mls/hr BID [facility] Administration Protocol Sodium Chloride 20 meq/ Amino 1,005 mls @ 55 mls/hr 08/04/20 15:29 08/04/20 18:21 Acids IV 55 mls/hr Q24H [facility] Administration Lidocaine HCl 1 applic 07/25/20 21:50 08/05/20 10:00 Xylocaine 5% Top. Ointment TP 1 applic DAILY [facility] Administration Midazolam HCl 1 mg 08/05/20 10:54 Versed - IVPUSH Q6H PRN ANXIETY Multi-Ingredient Ointment 1 applic 07/19/20 13:30 08/05/20 10:00 Zinc Oxide TP 1 applic DAILY [facility] Administration Multivitamins/Minerals 15 ml 07/06/20 11:45 08/05/20 10:00 Certavite-Antioxidant Liquid NGT 15 ml DAILY [facility] Administration Potassium Chloride 40 meq 07/17/20 12:30 08/05/20 10:00 Potassium Chloride Oral Liquid PO 40 meq DAILY [facility] Administration Potassium Phos/Sodium Phos 1 packet 07/09/20 14:00 08/03/20 06:10 Phos-Nak Packet - PO 1 packet TID [facility] Administration Thiamine HCl 100 mg 07/11/20 12:45 08/05/20 10:00 Vitamin B1 Injection - IVPB 100 mg DAILY [facility] Administration Impression 1. azotemia 2. hyponatremia 3. hyperkalemia 4. hypotension 5. sepsis 6. sbo 7. uti 8. liver cirrhosis 9. hypoalbuminemia 10. etoh abuse 11. substance abuse 12. psoriasis 13. acute resp failure 14. malnutrition 15. 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
[2020-08-05] MEDS: MIDAZOLAM HCL 2 MG/2 ML SINGLE DOSE VIAL IVPUSH PRN ×2 (15:25→21:20)
[2020-08-05] MEDS: [UNRECOGNIZED DRUG - OTHER] IV SCH (16:10)
[2020-08-05] MEDS: AMINO ACIDS IV SCH (16:10)
[2020-08-05] MEDS: SODIUM CHLORIDE IV SCH (16:10)
[2020-08-05] MEDS: DEXMEDETOMIDINE IN 0.9 % NACL 400 MCG/100 ML VIAL IVPB SCH (16:20)
[2020-08-05] MEDS: FAMOTIDINE 40 MG/5 ML ORAL SUSPENSION PEG SCH (16:26)
[2020-08-05] MEDS: COLLAGENASE CLOSTRIDIUM HIST. 30 GRAMS TUBE TP SCH (21:19)
--- NOTE | 2020-08-05 23:40 | PN ---
Progress Note, Physician - Current Medication List Current Medications: Active Medications Acetaminophen (Ofirmev Injection -) 500 mg IVPB Q6H [facility] Last Admin: 08/05/20 21:44 Dose: 500 mg Documented by: Ascorbic Acid (Vitamin C -) 500 mg PO DAILY [facility] Last Admin: 08/05/20 10:00 Dose: 500 mg Documented by: Banana Based Medical Food (Banatrol Plus Powder Packet) 2 packet GT TID [facility] Last Admin: 08/05/20 21:19 Dose: 2 packet Documented by: Collagenase (Santyl -) 1 applic TP DAILY [facility]; Protocol Last Admin: 08/05/20 21:19 Dose: 1 applic Documented by: Dextrose (D50w (Vial) -) 12.5 gm IVPUSH PRN PRN PRN Reason: HYPOGLYCEMIA Last Admin: 07/31/20 06:34 Dose: 12.5 gm Documented by: Famotidine (Pepcid) 20 mg PEG DAILY [facility] Last Admin: 08/05/20 16:26 Dose: 20 mg Documented by: Folic Acid (Folic Acid -) 1 mg NGT DAILY [facility] Last Admin: 08/05/20 10:00 Dose: 1 mg Documented by: Heparin Sodium (Porcine) (Heparin -) 5,000 unit SQ BID [facility] Last Admin: 08/05/20 21:20 Dose: 5,000 unit Documented by: Hydromorphone HCl (Dilaudid Vial -) 1 mg IVPUSH Q3H PRN PRN Reason: PAIN LEVEL 7 - 10 Last Admin: 08/05/20 23:06 Dose: 1 mg Documented by: Dexmedetomidine/Sodium Chloride (Precedex 400 Mcg/100 Ml Inject) 400 mcg in 100 mls @ 1.542 mls/hr IVPB TITR [facility] Last Admin: 08/05/20 16:20 Dose: 0.7 mcg/kg/hr, 5.398 mls/hr Documented by: Tigecycline 50 mg/ Dextrose 100 mls @ 100 mls/hr IVPB BID [facility]; Protocol Last Admin: 08/05/20 23:06 Dose: 100 mls/hr Documented by: Sodium Chloride 20 meq/ Amino (Acids) 1,005 mls @ 55 mls/hr IV Q24H [facility] Last Admin: 08/05/20 16:10 Dose: 55 mls/hr Documented by: Lidocaine HCl (Xylocaine 5% Top. Ointment) 1 applic TP DAILY [facility] Last Admin: 08/05/20 10:00 Dose: 1 applic Documented by: Midazolam HCl (Versed -) 1 mg IVPUSH Q6H PRN PRN Reason: ANXIETY Last Admin: 08/05/20 21:20 Dose: 1 mg Documented by: Multi-Ingredient Ointment (Zinc Oxide) 1 applic TP DAILY [facility] Last Admin: 08/05/20 10:00 Dose: 1 applic Documented by: Multivitamins/Minerals (Certavite-Antioxidant Liquid) 15 ml NGT DAILY [facility] Last Admin: 08/05/20 10:00 Dose: 15 ml Documented by: Thiamine HCl (Vitamin B1 Injection -) 100 mg IVPB DAILY [facility] Last Admin: 08/05/20 10:00 Dose: 100 mg Documented by: - Objective Vital Signs: Vital Signs Temperature 9702 F H 08/05/20 09:00 Pulse Rate 86 08/05/20 20:46 Respiratory Rate 17 08/05/20 20:46 Blood Pressure 78/55 L 08/05/20 18:53 O2 Sat by Pulse Oximetry (%) 99 08/05/20 20:46 Labs: CBC, BMP 08/05/20 05:30 08/05/20 05:30 INR, PTT INR 1.70 (0.83-1.09) H 08/04/20 05:20 Fibrinogen 344.0 mg/dL (238-498) 07/21/20 06:00 Problem List - Problems (1) Respiratory failure Code(s): J96.90 - RESPIRATORY FAILURE, UNSP, UNSP W HYPOXIA OR HYPERCAPNIA (2) Sepsis Code(s): A41.9 - SEPSIS, UNSPECIFIED ORGANISM Qualifiers: Sepsis type: sepsis due to unspecified organism Sepsis acute organ dysfunction status: unspecified Qualified Code(s): A41.9 - Sepsis, unspecified organism (3) Anemia Code(s): D64.9 - ANEMIA, UNSPECIFIED (4) At risk for electrolyte imbalance Code(s): Z91.89 - OTH PERSONAL RISK FACTORS, NOT ELSEWHERE CLASSIFIED (5) SBO (small bowel obstruction) Code(s): K56.609 - UNSP INTESTNL OBST, UNSP TO PARTIAL VERSUS COMPLETE OBST (6) Liver cirrhosis, alcoholic Code(s): K70.30 - ALCOHOLIC CIRRHOSIS OF LIVER WITHOUT ASCITES (7) Hypoalbuminemia Code(s): E88.09 - OTH DISORDERS OF PLASMA-PROTEIN METABOLISM, NEC (8) Substance abuse Code(s): F19.10 - OTHER PSYCHOACTIVE SUBSTANCE ABUSE, UNCOMPLICATED (9) Cachexia Code(s): R64 - CACHEXIA (10) Severe malnutrition Code(s): E43 - UNSPECIFIED SEVERE PROTEIN-CALORIE MALNUTRITION (11) Sacral ulcer Code(s): L98.429 - NON-PRESSURE CHRONIC ULCER OF BACK WITH UNSPECIFIED SEVERITY
[2020-08-06] MEDS: HYDROmorphone HCl 2 MG/ML VIAL IVPUSH PRN ×4 (03:38→16:13)
[2020-08-06] MEDS: ACETAMINOPHEN 1000 MG/100 ML VIAL (NON FORMULARY) IVPB SCH ×4 (03:39→21:15)
[2020-08-06] MEDS: BANATROL PLUS POWDER PACKET GT SCH (05:41)
[2020-08-06] MEDS: MIDAZOLAM HCL 2 MG/2 ML SINGLE DOSE VIAL IVPUSH PRN (06:12)
[2020-08-06 07:36] LABS: HEMATOCRIT 29.3 % (32.4-45.2); HEMOGLOBIN 9.7 GM/dL (10.7-15.3); MCH 30.3 pg (25.7-33.7); MCHC 33.2 g/dl (32.0-36.0); MEAN CELL VOLUME 91.1 fl (80-96); MEAN PLT VOLUME 8.8 fl (7.5-11.1); PLATELET COUNT 99 K/MM3 (134-434); RBC 3.22 M/mm3 (3.60-5.2); RDW 18.6 % (11.6-15.6); WHITE BLOOD COUNT 7.6 K/mm3 (4.0-10.0)
[2020-08-06 07:54] LABS: ALBUMIN 1.4 g/dl (3.4-5.0); BILIRUBIN,TOTAL 0.5 mg/dL (0.2-1); BLOOD UREA NITROGEN 22.2 mg/dL (7-18); CREATININE 0.2 mg/dL (0.55-1.3); POTASSIUM 5.3 mmol/L (3.5-5.1); TOT PROT 3.7 g/dl (6.4-8.2)
[2020-08-06 07:57] LABS: CALCIUM 6.6 mg/dL (8.5-10.1)
[2020-08-06] MEDS ORDERED: PT OWN MED DRAWER 7, Y5N ONE ×2 (09:17→14:30)
[2020-08-06] MEDS: FAMOTIDINE 40 MG/5 ML ORAL SUSPENSION PEG SCH (10:10)
[2020-08-06] MEDS: MULTIVIT-MINERALS ORAL LIQUID NGT SCH (10:10)
[2020-08-06] MEDS: HEPARIN NA (PORCINE) 5,000 UNITS/ML 1ML VIAL SQ SCH ×2 (10:10→21:14)
[2020-08-06] MEDS: FOLIC ACID 1 MG TABLET (FP) NGT SCH (10:10)
[2020-08-06] MEDS: ASCORBIC ACID 500 MG TABLET (FP) PO SCH (10:10)
[2020-08-06] MEDS: TIGECYCLINE 50 MG in DEXTROSE 5%-WATER - 100 ML IVPB SCH ×2 (10:10→21:14)
[2020-08-06] MEDS: THIAMINE HCL 200 MG/2 ML VIAL IVPB SCH (10:11)
[2020-08-06 10:14] LABS: PHOSPHOROUS 2.2 mg/dL (2.5-4.9)
[2020-08-06] MEDS: LIDOCAINE HCL 5% TOP OINTMENT 50 GM TUBE TP SCH (10:28)
[2020-08-06] MEDS: COLLAGENASE CLOSTRIDIUM HIST. 30 GRAMS TUBE TP SCH (10:28)
[2020-08-06] MEDS: ZINC OXIDE 20% TOPICAL OINTMENT 30 GM TUBE TP SCH (10:29)
--- NOTE | 2020-08-06 11:53 | PN ---
Teaching Attending Note Name of Resident: Masha Eduardo ATTENDING PHYSICIAN STATEMENT I saw and evaluated the patient. I reviewed the resident's note and discussed the case with the resident. I agree with the resident's findings and plan as documented. SUBJECTIVE: Patient seen and examined in the ICU. Vented, awake and interactive. Diarrhea. Pain is variably controlled. Pleural catheter intact without an air leak. No pressors. CXR: : large Left PTX OBJECTIVE: Laboratory Results - last 24 hr 08/05/20 08/05/20 08/06/20 05:30 18:39 01:08 WBC RBC Hgb Hct MCV MCH MCHC RDW Plt Count MPV Neutrophils % (Manual) 92.1 H Band Neutrophils % 1.0 Lymphocytes % (Manual) 3.0 L D Monocytes % (Manual) 4 Eosinophils % (Manual) 0.0 Basophils % (Manual) 0.0 Myelocytes % (Man) 0 Promyelocytes % (Man) 0 Blast Cells % (Manual) 0 Nucleated RBC % 0 Metamyelocytes 0 Hypochromia 1+ Platelet Estimate Decreased Polychromasia 0 Poikilocytosis 1+ Anisocytosis 1+ Microcytosis 0 Macrocytosis 1+ Sodium Potassium Chloride Carbon Dioxide Anion Gap BUN Creatinine Est GFR (CKD-EPI)AfAm Est GFR (CKD-EPI)NonAf POC Glucometer 118 88 Random Glucose Calcium Phosphorus Magnesium Total Bilirubin AST ALT Alkaline Phosphatase Total Protein Albumin 08/06/20 08/06/20 08/06/20 06:09 07:00 07:00 WBC 7.6 RBC 3.22 L Hgb 9.7 L Hct 29.3 L MCV 91.1 MCH 30.3 MCHC 33.2 RDW 18.6 H Plt Count 99 L MPV 8.8 Neutrophils % (Manual) Band Neutrophils % Lymphocytes % (Manual) Monocytes % (Manual) Eosinophils % (Manual) Basophils % (Manual) Myelocytes % (Man) Promyelocytes % (Man) Blast Cells % (Manual) Nucleated RBC % Metamyelocytes Hypochromia Platelet Estimate Polychromasia Poikilocytosis Anisocytosis Microcytosis Macrocytosis Sodium 133 L Potassium 5.3 H Chloride 107 Carbon Dioxide 21 Anion Gap 5 L BUN 22.2 H Creatinine 0.2 L Est GFR (CKD-EPI)AfAm 196.46 Est GFR (CKD-EPI)NonAf 169.51 POC Glucometer 133 Random Glucose 112 H Calcium 6.6 L* Phosphorus 2.2 L Magnesium 2.0 Total Bilirubin 0.5 AST 59 H ALT 46 Alkaline Phosphatase 692 H Total Protein 3.7 L Albumin 1.4 L Gen: vented, awake and alert, cachectic Heart: RRR Lung: Vented, scattered rhonchi, Left pleural catheter Abd: soft, (+) BS< (+) GT Ext: no edema Laboratory Results - last 24 hr 08/05/20 08/05/20 08/06/20 05:30 18:39 01:08 WBC RBC Hgb Hct MCV MCH MCHC RDW Plt Count MPV Neutrophils % (Manual) 92.1 H Band Neutrophils % 1.0 Lymphocytes % (Manual) 3.0 L D Monocytes % (Manual) 4 Eosinophils % (Manual) 0.0 Basophils % (Manual) 0.0 Myelocytes % (Man) 0 Promyelocytes % (Man) 0 Blast Cells % (Manual) 0 Nucleated RBC % 0 Metamyelocytes 0 Hypochromia 1+ Platelet Estimate Decreased Polychromasia 0 Poikilocytosis 1+ Anisocytosis 1+ Microcytosis 0 Macrocytosis 1+ Sodium Potassium Chloride Carbon Dioxide Anion Gap BUN Creatinine Est GFR (CKD-EPI)AfAm Est GFR (CKD-EPI)NonAf POC Glucometer 118 88 Random Glucose Calcium Phosphorus Magnesium Total Bilirubin AST ALT Alkaline Phosphatase Total Protein Albumin 08/06/20 08/06/20 08/06/20 06:09 07:00 07:00 WBC 7.6 RBC 3.22 L Hgb 9.7 L Hct 29.3 L MCV 91.1 MCH 30.3 MCHC 33.2 RDW 18.6 H Plt Count 99 L MPV 8.8 Neutrophils % (Manual) Band Neutrophils % Lymphocytes % (Manual) Monocytes % (Manual) Eosinophils % (Manual) Basophils % (Manual) Myelocytes % (Man) Promyelocytes % (Man) Blast Cells % (Manual) Nucleated RBC % Metamyelocytes Hypochromia Platelet Estimate Polychromasia Poikilocytosis Anisocytosis Microcytosis Macrocytosis Sodium 133 L Potassium 5.3 H Chloride 107 Carbon Dioxide 21 Anion Gap 5 L BUN 22.2 H Creatinine 0.2 L Est GFR (CKD-EPI)AfAm 196.46 Est GFR (CKD-EPI)NonAf 169.51 POC Glucometer 133 Random Glucose 112 H Calcium 6.6 L* Phosphorus 2.2 L Magnesium 2.0 Total Bilirubin 0.5 AST 59 H ALT 46 Alkaline Phosphatase 692 H Total Protein 3.7 L Albumin 1.4 L ASSESSMENT AND PLAN: Acute Hypoxic Respiratory Failure s/p Tracheostomy Pneumonia likely Aspiration UTI Sepsis Hyponatremia Small Bowel Obstruction Ascites s/p Peritoneal drain placement Alcohol/Heroin Abuse Anemia/Thrombocytopenia Failure to Thrive Severe Protein Calorie Malnutrition Refeeding Syndrome - Place pigtail to suction today - pain control - monitor urine output, creatinine - replete lytes - continue antibiotics - Hold spontaneous breathing trials for now - DVT/GI prophylaxis - continue ICU monitoring LTAC evaluation Dr Babb Critical care time spent in reviewing chart, evaluating patient and formulating plan 35 min
[2020-08-06] MEDS ORDERED: BANATROL PLUS POWDER PACKET GT SCH (12:36)
[2020-08-06] MEDS: METHADONE HCL 10 MG TABLET PO SCH ×2 (13:22→21:14)
[2020-08-06] MEDS: DEXMEDETOMIDINE IN 0.9 % NACL 400 MCG/100 ML VIAL IVPB SCH (13:23)
--- NOTE | 2020-08-06 13:25 | PN ---
Physical Exam: SUBJECTIVE: Patient seen and examined. No acute events overnight. Pt resting comfortably in bed. Complains of pain and requesting methadone. OBJECTIVE: Vital Signs Period Temp Pulse Resp BP Sys/Campbell Pulse Ox Last 24 Hr 98.4 F-99.3 F 69-106 15-26 69-98/42-67 95-100 Vent Setting:RR 14, TV 350, FiO2 40%, PEEP 5 GENERAL: The patient is awake, alert, oriented HEAD: Normal with no signs of trauma, temporal wasting, tracheostomy EYES: PERRL, extraocular movements intact, sclera anicteric, conjunctiva clear. No ptosis. ENT: Ears normal, nares patent, oropharynx clear without exudates, moist mucous membranes. NECK: Trachea midline, full range of motion, supple. LUNGS: Breath sounds diminished on right basilar, crackles on right base, absent breath sounds on left lung. clear to auscultation bilaterally, no wheezes, no accessory muscle use. HEART: regular rhythm, S1, S2 without murmur, rub or gallop. ABDOMEN: thin, peg tube Soft, nontender, nondistended, normoactive bowel sounds, no guarding, rebound, no hepatosplenomegaly, no masses. EXTREMITIES: 2+ pulses, warm, well-perfused, no edema. NEUROLOGICAL: Cranial nerves II through XII grossly intact, gait not observed. PSYCH: Normal mood, normal affect. SKIN: Warm, dry, normal turgor, sacral ulcer (unstagable), peritoneal ulcer Laboratory Results - last 24 hr 08/05/20 08/06/20 08/06/20 18:39 01:08 06:09 WBC RBC Hgb Hct MCV MCH MCHC RDW Plt Count MPV Sodium Potassium Chloride Carbon Dioxide Anion Gap BUN Creatinine Est GFR (CKD-EPI)AfAm Est GFR (CKD-EPI)NonAf POC Glucometer 118 88 133 Random Glucose Calcium Phosphorus Magnesium Total Bilirubin AST ALT Alkaline Phosphatase Total Protein Albumin 08/06/20 08/06/20 07:00 07:00 WBC 7.6 RBC 3.22 L Hgb 9.7 L Hct 29.3 L MCV 91.1 MCH 30.3 MCHC 33.2 RDW 18.6 H Plt Count 99 L MPV 8.8 Sodium 133 L Potassium 5.3 H Chloride 107 Carbon Dioxide 21 Anion Gap 5 L BUN 22.2 H Creatinine 0.2 L Est GFR (CKD-EPI)AfAm 196.46 Est GFR (CKD-EPI)NonAf 169.51 POC Glucometer Random Glucose 112 H Calcium 6.6 L* Phosphorus 2.2 L Magnesium 2.0 Total Bilirubin 0.5 AST 59 H ALT 46 Alkaline Phosphatase 692 H Total Protein 3.7 L Albumin 1.4 L Active Medications Generic Name Dose Route Start Last Admin Trade Name Freq PRN Reason Stop Dose Admin Acetaminophen 500 mg 08/01/20 10:00 08/06/20 09:59 Ofirmev Injection - IVPB 500 mg Q6H RAUL Administration Ascorbic Acid 500 mg 07/27/20 13:00 08/06/20 10:10 Vitamin C - PO 500 mg DAILY RAUL Administration Banana Based Medical Food 1 packet 08/06/20 12:36 Banatrol Plus Powder Packet GT TID RAUL Collagenase 1 applic 08/05/20 19:30 08/06/20 10:28 Santyl - TP 1 applic DAILY [facility] Administration Protocol Dextrose 12.5 gm 07/08/20 07:08 07/31/20 06:34 D50w (Vial) - IVPUSH 12.5 gm PRN PRN Administration HYPOGLYCEMIA Famotidine 20 mg 08/04/20 10:45 08/06/20 10:10 Pepcid PEG 20 mg DAILY [facility]UL Administration Folic Acid 1 mg 07/06/20 10:00 08/06/20 10:10 Folic Acid - NGT 1 mg DAILY [facility] Administration Heparin Sodium (Porcine) 5,000 unit 07/20/20 10:00 08/06/20 10:10 Heparin - SQ 5,000 unit BID [facility]UL Administration Hydromorphone HCl 1 mg 07/26/20 13:39 08/06/20 11:47 Dilaudid Vial - IVPUSH 1 mg Q3H PRN Administration PAIN LEVEL 7 - 10 Dexmedetomidine/Sodium Chloride 400 mcg in 100 mls @ 1.542 mls/hr 07/25/20 11:15 08/05/20 16:20 Precedex 400 Mcg/100 Ml Inject IVPB 0.7 mcg/kg/hr TITR RAUL 5.398 mls/hr Administration 0.2 MCG/KG/HR Tigecycline 50 mg/ Dextrose 100 mls @ 100 mls/hr 07/28/20 10:00 08/06/20 10:10 IVPB 100 mls/hr BID RAUL Administration Protocol Sodium Chloride 20 meq/ Amino 1,005 mls @ 55 mls/hr 08/04/20 15:29 08/05/20 16:10 Acids IV 55 mls/hr Q24H RAUL Administration Lidocaine HCl 1 applic 07/25/20 21:50 08/06/20 10:28 Xylocaine 5% Top. Ointment TP 1 applic DAILY [facility]UL Administration Methadone HCl 10 mg 08/06/20 13:00 08/06/20 13:22 Dolophine - PO 10 mg BID [facility]UL Administration Midazolam HCl 1 mg 08/05/20 10:54 08/06/20 06:12 Versed - IVPUSH 1 mg Q6H PRN Administration ANXIETY Multi-Ingredient Ointment 1 applic 07/19/20 13:30 08/06/20 10:29 Zinc Oxide TP 1 applic DAILY [facility]UL Administration Multivitamins/Minerals 15 ml 07/06/20 11:45 08/06/20 10:10 Certavite-Antioxidant Liquid NGT 15 ml DAILY [facility] Administration Thiamine HCl 100 mg 07/11/20 12:45 08/06/20 10:11 Vitamin B1 Injection - IVPB 100 mg DAILY [facility]UL Administration ASSESSMENT/PLAN: ASSESSMENT/PLAN: 35 yo female with PMH of malnutrition 2/2 bulimia and polysubstance use disorder, cirrhosis, & heroin abuse, in ICU with sepsis and acute hypoxic respiratory failure, now s/p trach, sp abdominal peritoneal drain, s/p peg placement. Neuro - Alert, responsive, able to communicate with writing and mouthing words - Dilaudid 1g, q3h - Dexmedetomidine CV - Septic Shock (UTI vs Aspiration Pneumonia) - Basline MAP 70 - BP Stable, discontinued vasopressin Respiratory - Acute Hypoxic Respiratory Failure 2/2 Aspiration Pneumonia - Tracheostomy on 07/25; maintain SpO2 >90% - continue daily trials of CPAP with supported breaths - Pneumothorax (L upper lobe) - repeat CXR in AM - switched from water seal to suction - continue to watch, if worsens consider chest tube placement GI - Refeeding Syndrome Risk - Ascites, 2/2 to hypoalbunemia/cirrhosis - Peritoneal drain placed on 07/27 - SAAG score < 1.1 (less likely from portal HTN) - PEG Tube placed 07/31 - IV Tylenol 500 mg Q6h: keep to 2 g daily for liver disease - mistry in place - UTI - colovesicular fistula - Renal following (Dr. Chavez) ID - Septic Shock (UTI vs Aspiration Pneumonia) - Urine Cx +ESBL Klebsiella pneumo, carbapenem-resistent - S/p Vanc/Zosyn/Meropenem - currently on Tigecycline (Day 9) - ID following (Dr. Martines) Heme - Normocytic Anemia (Hb 9.7) - Thrombocytopenia (Plt 99) - Chronically Elevated PT/INR & PTT - check coags daily Psych - Hx of Eating Disorder - Hx of Alcohol/Heroin Abuse - Methadone 10mg, BID - Drug cessation counseling - Hx of Anxiety - Versed 10, BID q6 Derm - Multiple Sacral Ulcers (stage 4) - Daily wound care, air mattress - Off-loading to all bony areas (heels, ankles, hips and tailbone) with Allevyn/Optifoam FEN - Hypoalbuminemia (1.4) - 2/2 to severe malnutrition - Perative Tube feeds, titrate up to 55 - Hyponatremia (133) - Hyperkalemia (5.3) - Hypophosphatemia (2.2), replenished with sodium phosphate - check and replete electrolytes as needed Prophylaxis - DVT ppx: BID SQH because of low bodyweight Dispo - Cont to monitor in ICU - lead case manager: Referral remains open with [facility]. Visit type - Emergency Visit Emergency Visit: Yes ED Registration Date: 07/01/20 Care time: The patient presented to the Emergency Department on the above date and was hospitalized for further evaluation of their emergent condition. - New Patient This patient is new to me today: No - Critical Care Critical Care patient: No ATTENDING PHYSICIAN STATEMENT I saw and evaluated the patient. I reviewed the resident's note and discussed the case with the resident. I agree with the resident's findings and plan as documented. SUBJECTIVE: OBJECTIVE: ASSESSMENT AND PLAN:
--- NOTE | 2020-08-06 13:25 | PN ---
Progress Note, Physician History of Present Illness: Pt seen and examined at bedside. She appears comfortable. She remains in the ICU. She remains mechanically ventilated. - Current Medication List Current Medications: Active Medications Acetaminophen (Ofirmev Injection -) 500 mg IVPB Q6H [facility] Last Admin: 08/06/20 09:59 Dose: 500 mg Documented by: Ascorbic Acid (Vitamin C -) 500 mg PO DAILY [facility] Last Admin: 08/06/20 10:10 Dose: 500 mg Documented by: Banana Based Medical Food (Banatrol Plus Powder Packet) 1 packet GT TID [facility] Collagenase (Santyl -) 1 applic TP DAILY [facility]UL; Protocol Last Admin: 08/06/20 10:28 Dose: 1 applic Documented by: Dextrose (D50w (Vial) -) 12.5 gm IVPUSH PRN PRN PRN Reason: HYPOGLYCEMIA Last Admin: 07/31/20 06:34 Dose: 12.5 gm Documented by: Famotidine (Pepcid) 20 mg PEG DAILY [facility] Last Admin: 08/06/20 10:10 Dose: 20 mg Documented by: Folic Acid (Folic Acid -) 1 mg NGT DAILY [facility] Last Admin: 08/06/20 10:10 Dose: 1 mg Documented by: Heparin Sodium (Porcine) (Heparin -) 5,000 unit SQ BID [facility] Last Admin: 08/06/20 10:10 Dose: 5,000 unit Documented by: Hydromorphone HCl (Dilaudid Vial -) 1 mg IVPUSH Q3H PRN PRN Reason: PAIN LEVEL 7 - 10 Last Admin: 08/06/20 11:47 Dose: 1 mg Documented by: Dexmedetomidine/Sodium Chloride (Precedex 400 Mcg/100 Ml Inject) 400 mcg in 100 mls @ 1.542 mls/hr IVPB TITR [facility]UL Last Admin: 08/05/20 16:20 Dose: 0.7 mcg/kg/hr, 5.398 mls/hr Documented by: Tigecycline 50 mg/ Dextrose 100 mls @ 100 mls/hr IVPB BID [facility]; Protocol Last Admin: 08/06/20 10:10 Dose: 100 mls/hr Documented by: Sodium Chloride 20 meq/ Amino (Acids) 1,005 mls @ 55 mls/hr IV Q24H [facility] Last Admin: 08/05/20 16:10 Dose: 55 mls/hr Documented by: Lidocaine HCl (Xylocaine 5% Top. Ointment) 1 applic TP DAILY [facility] Last Admin: 08/06/20 10:28 Dose: 1 applic Documented by: Methadone HCl (Dolophine -) 10 mg PO BID [facility] Last Admin: 08/06/20 13:22 Dose: 10 mg Documented by: Midazolam HCl (Versed -) 1 mg IVPUSH Q6H PRN PRN Reason: ANXIETY Last Admin: 08/06/20 06:12 Dose: 1 mg Documented by: Multi-Ingredient Ointment (Zinc Oxide) 1 applic TP DAILY [facility] Last Admin: 08/06/20 10:29 Dose: 1 applic Documented by: Multivitamins/Minerals (Certavite-Antioxidant Liquid) 15 ml NGT DAILY [facility] Last Admin: 08/06/20 10:10 Dose: 15 ml Documented by: Thiamine HCl (Vitamin B1 Injection -) 100 mg IVPB DAILY [facility] Last Admin: 08/06/20 10:11 Dose: 100 mg Documented by: - Objective Vital Signs: Vital Signs Temperature 99.3 F 08/06/20 10:00 Pulse Rate 95 H 08/06/20 10:00 Respiratory Rate 20 08/06/20 11:29 Blood Pressure 96/63 08/06/20 10:00 O2 Sat by Pulse Oximetry (%) 100 08/06/20 11:29 Constitutional: Yes: Calm Eyes: Yes: Conjunctiva Clear HENT: Yes: Atraumatic Neck: Yes: Other (trache) Cardiovascular: Yes: S1, S2 Respiratory: Yes: Mechanically Ventilated Gastrointestinal: Yes: Normal Bowel Sounds, Soft Genitourinary: Yes: Uribe Present Musculoskeletal: Yes: Muscle Weakness Edema: No Neurological: Yes: Oriented Labs: CBC, BMP 08/06/20 07:00 08/06/20 07:00 INR, PTT INR 1.70 (0.83-1.09) H 08/04/20 05:20 Fibrinogen 344.0 mg/dL (238-498) 07/21/20 06:00 Problem List - Problems (1) Hypoglycemia Code(s): E16.2 - HYPOGLYCEMIA, UNSPECIFIED (2) Sepsis Code(s): A41.9 - SEPSIS, UNSPECIFIED ORGANISM Qualifiers: Sepsis type: sepsis due to unspecified organism Sepsis acute organ dysfunction status: unspecified Qualified Code(s): A41.9 - Sepsis, unspecified organism (3) Hypoalbuminemia Code(s): E88.09 - OTH DISORDERS OF PLASMA-PROTEIN METABOLISM, NEC (4) Hyponatremia Code(s): E87.1 - HYPO-OSMOLALITY AND HYPONATREMIA Assessment/Plan Current Medications Generic Name Dose Route Start Last Admin Trade Name Freq PRN Reason Stop Dose Admin Acetaminophen 500 mg 08/01/20 10:00 08/06/20 09:59 Ofirmev Injection - IVPB 500 mg Q6H RAUL Administration Ascorbic Acid 500 mg 07/27/20 13:00 08/06/20 10:10 Vitamin C - PO 500 mg DAILY RAUL Administration Banana Based Medical Food 1 packet 08/06/20 12:36 Banatrol Plus Powder Packet GT TID [facility] Collagenase 1 applic 08/05/20 19:30 08/06/20 10:28 Santyl - TP 1 applic DAILY [facility] Administration Protocol Dextrose 12.5 gm 07/08/20 07:08 07/31/20 06:34 D50w (Vial) - IVPUSH 12.5 gm PRN PRN Administration HYPOGLYCEMIA Famotidine 20 mg 08/04/20 10:45 08/06/20 10:10 Pepcid PEG 20 mg DAILY [facility]UL Administration Folic Acid 1 mg 07/06/20 10:00 08/06/20 10:10 Folic Acid - NGT 1 mg DAILY [facility] Administration Heparin Sodium (Porcine) 5,000 unit 07/20/20 10:00 08/06/20 10:10 Heparin - SQ 5,000 unit BID [facility]UL Administration Hydromorphone HCl 1 mg 07/26/20 13:39 08/06/20 11:47 Dilaudid Vial - IVPUSH 1 mg Q3H PRN Administration PAIN LEVEL 7 - 10 Dexmedetomidine/Sodium Chloride 400 mcg in 100 mls @ 1.542 mls/hr 07/25/20 11:15 08/05/20 16:20 Precedex 400 Mcg/100 Ml Inject IVPB 0.7 mcg/kg/hr TITR RAUL 5.398 mls/hr Administration 0.2 MCG/KG/HR Tigecycline 50 mg/ Dextrose 100 mls @ 100 mls/hr 07/28/20 10:00 08/06/20 10:10 IVPB 100 mls/hr BID RAUL Administration Protocol Sodium Chloride 20 meq/ Amino 1,005 mls @ 55 mls/hr 08/04/20 15:29 08/05/20 16:10 Acids IV 55 mls/hr Q24H [facility]UL Administration Lidocaine HCl 1 applic 07/25/20 21:50 08/06/20 10:28 Xylocaine 5% Top. Ointment TP 1 applic DAILY [facility] Administration Methadone HCl 10 mg 08/06/20 13:00 08/06/20 13:22 Dolophine - PO 10 mg BID [facility] Administration Midazolam HCl 1 mg 08/05/20 10:54 08/06/20 06:12 Versed - IVPUSH 1 mg Q6H PRN Administration ANXIETY Multi-Ingredient Ointment 1 applic 07/19/20 13:30 08/06/20 10:29 Zinc Oxide TP 1 applic DAILY [facility] Administration Multivitamins/Minerals 15 ml 07/06/20 11:45 08/06/20 10:10 Certavite-Antioxidant Liquid NGT 15 ml DAILY [facility] Administration Thiamine HCl 100 mg 07/11/20 12:45 08/06/20 10:11 Vitamin B1 Injection - IVPB 100 mg DAILY [facility] Administration Impression 1. azotemia 2. hyponatremia 3. hyperkalemia 4. hypotension 5. sepsis 6. sbo 7. uti 8. liver cirrhosis 9. hypoalbuminemia 10. etoh abuse 11. substance abuse 12. psoriasis 13. acute resp failure 14. malnutrition 15. 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
[2020-08-06] MEDS ORDERED: AMINO ACIDS 4.25%/D5W 1,000 ML IV SCH ×2 (13:26→13:28)
[2020-08-06] MEDS ORDERED: SODIUM PHOSPHATE - 20 MM in DEXTROSE 5%-WATER - 250 ML IVPB ONE (13:26)
[2020-08-06] MEDS ORDERED: SODIUM PHOSPHATE - 0 MM in DEXTROSE 5%-WATER - 250 ML IVPB ONE (13:35)
[2020-08-06] MEDS ORDERED: SODIUM PHOSPHATE - 15 MM in DEXTROSE 5%-WATER - 250 ML IVPB ONE (13:49)
--- NOTE | 2020-08-06 14:05 | PN ---
Progress Note, Physician History of Present Illness: continues to be on vent support large pleural effusion comfortable thin - Current Medication List Current Medications: Active Medications Acetaminophen (Ofirmev Injection -) 500 mg IVPB Q6H [facility] Last Admin: 08/06/20 09:59 Dose: 500 mg Documented by: Ascorbic Acid (Vitamin C -) 500 mg PO DAILY [facility] Last Admin: 08/06/20 10:10 Dose: 500 mg Documented by: Collagenase (Santyl -) 1 applic TP DAILY [facility]; Protocol Last Admin: 08/06/20 10:28 Dose: 1 applic Documented by: Dextrose (D50w (Vial) -) 12.5 gm IVPUSH PRN PRN PRN Reason: HYPOGLYCEMIA Last Admin: 07/31/20 06:34 Dose: 12.5 gm Documented by: Famotidine (Pepcid) 20 mg PEG DAILY [facility] Last Admin: 08/06/20 10:10 Dose: 20 mg Documented by: Folic Acid (Folic Acid -) 1 mg NGT DAILY [facility] Last Admin: 08/06/20 10:10 Dose: 1 mg Documented by: Heparin Sodium (Porcine) (Heparin -) 5,000 unit SQ BID [facility] Last Admin: 08/06/20 10:10 Dose: 5,000 unit Documented by: Hydromorphone HCl (Dilaudid Vial -) 1 mg IVPUSH Q3H PRN PRN Reason: PAIN LEVEL 7 - 10 Last Admin: 08/06/20 11:47 Dose: 1 mg Documented by: Dexmedetomidine/Sodium Chloride (Precedex 400 Mcg/100 Ml Inject) 400 mcg in 100 mls @ 1.542 mls/hr IVPB TITR [facility] Last Admin: 08/06/20 13:23 Dose: 0.7 mcg/kg/hr, 5.398 mls/hr Documented by: Tigecycline 50 mg/ Dextrose 100 mls @ 100 mls/hr IVPB BID [facility]; Protocol Last Admin: 08/06/20 10:10 Dose: 100 mls/hr Documented by: Sodium Phosphate 20 mm/ (Dextrose) 256.6667 mls @ 62.5 mls/hr IVPB ONCE ONE Stop: 08/06/20 17:32 Amino Acids (Clinimix -) 1,000 mls @ 65 mls/hr IV Q15H [facility] Last Admin: 08/06/20 13:45 Dose: 65 mls/hr Documented by: Lidocaine HCl (Xylocaine 5% Top. Ointment) 1 applic TP DAILY [facility] Last Admin: 08/06/20 10:28 Dose: 1 applic Documented by: Methadone HCl (Dolophine -) 10 mg PO BID [facility] Last Admin: 08/06/20 13:22 Dose: 10 mg Documented by: Midazolam HCl (Versed -) 1 mg IVPUSH Q6H PRN PRN Reason: ANXIETY Last Admin: 08/06/20 06:12 Dose: 1 mg Documented by: Multi-Ingredient Ointment (Zinc Oxide) 1 applic TP DAILY [facility] Last Admin: 08/06/20 10:29 Dose: 1 applic Documented by: Multivitamins/Minerals (Certavite-Antioxidant Liquid) 15 ml NGT DAILY [facility] Last Admin: 08/06/20 10:10 Dose: 15 ml Documented by: Thiamine HCl (Vitamin B1 Injection -) 100 mg IVPB DAILY [facility] Last Admin: 08/06/20 10:11 Dose: 100 mg Documented by: - Objective Vital Signs: Vital Signs Temperature 99.3 F 08/06/20 10:00 Pulse Rate 95 H 08/06/20 10:00 Respiratory Rate 20 08/06/20 11:29 Blood Pressure 96/63 08/06/20 10:00 O2 Sat by Pulse Oximetry (%) 100 08/06/20 11:29 Constitutional: Yes: Other Cardiovascular: Yes: S1, S2 Respiratory: Yes: Mechanically Ventilated, Other (trach) Gastrointestinal: Yes: Normal Bowel Sounds, Soft, Other (chest tube) Genitourinary: Yes: Uribe Present Musculoskeletal: Yes: WNL Extremities: Yes: WNL Neurological: Yes: Alert Labs: CBC, BMP 08/06/20 07:00 08/06/20 07:00 INR, PTT INR 1.70 (0.83-1.09) H 08/04/20 05:20 Fibrinogen 344.0 mg/dL (238-498) 07/21/20 06:00 Assessment/Plan Pneumonia likely Aspiration UTI Sepsis Hyponatremia SBO resolving Alcohol/Heroin Abuse Anemia Failure to Thrive Severe Protein Calorie Malnutrition uti sacral wounds dirrhoea plan continue current mgmt nutrition as per icu vent mgmt close watch cc 38 min
--- NOTE | 2020-08-06 23:26 | PN ---
Progress Note, Physician History of Present Illness: No new change - Current Medication List Current Medications: Active Medications Acetaminophen (Ofirmev Injection -) 500 mg IVPB Q6H [facility] Last Admin: 08/06/20 21:15 Dose: 500 mg Documented by: Ascorbic Acid (Vitamin C -) 500 mg PO DAILY [facility] Last Admin: 08/06/20 10:10 Dose: 500 mg Documented by: Collagenase (Santyl -) 1 applic TP DAILY [facility]; Protocol Last Admin: 08/06/20 10:28 Dose: 1 applic Documented by: Dextrose (D50w (Vial) -) 12.5 gm IVPUSH PRN PRN PRN Reason: HYPOGLYCEMIA Last Admin: 07/31/20 06:34 Dose: 12.5 gm Documented by: Famotidine (Pepcid) 20 mg PEG DAILY [facility] Last Admin: 08/06/20 10:10 Dose: 20 mg Documented by: Folic Acid (Folic Acid -) 1 mg NGT DAILY [facility] Last Admin: 08/06/20 10:10 Dose: 1 mg Documented by: Heparin Sodium (Porcine) (Heparin -) 5,000 unit SQ BID [facility] Last Admin: 08/06/20 21:14 Dose: 5,000 unit Documented by: Hydromorphone HCl (Dilaudid Vial -) 1 mg IVPUSH Q3H PRN PRN Reason: PAIN LEVEL 7 - 10 Last Admin: 08/06/20 16:13 Dose: 1 mg Documented by: Dexmedetomidine/Sodium Chloride (Precedex 400 Mcg/100 Ml Inject) 400 mcg in 100 mls @ 1.542 mls/hr IVPB TITR [facility] Last Admin: 08/06/20 13:23 Dose: 0.7 mcg/kg/hr, 5.398 mls/hr Documented by: Tigecycline 50 mg/ Dextrose 100 mls @ 100 mls/hr IVPB BID [facility]; Protocol Last Admin: 08/06/20 21:14 Dose: 100 mls/hr Documented by: Lidocaine HCl (Xylocaine 5% Top. Ointment) 1 applic TP DAILY [facility] Last Admin: 08/06/20 10:28 Dose: 1 applic Documented by: Methadone HCl (Dolophine -) 10 mg PO BID [facility] Last Admin: 08/06/20 21:14 Dose: 10 mg Documented by: Midazolam HCl (Versed -) 1 mg IVPUSH Q6H PRN PRN Reason: ANXIETY Last Admin: 10/05/20 06:12 Dose: 1 mg Documented by: Multi-Ingredient Ointment (Zinc Oxide) 1 applic TP DAILY [facility] Last Admin: 08/06/20 10:29 Dose: 1 applic Documented by: Multivitamins/Minerals (Certavite-Antioxidant Liquid) 15 ml NGT DAILY [facility] Last Admin: 08/06/20 10:10 Dose: 15 ml Documented by: Thiamine HCl (Vitamin B1 Injection -) 100 mg IVPB DAILY [facility] Last Admin: 08/06/20 10:11 Dose: 100 mg Documented by: - Objective Vital Signs: Vital Signs Temperature 98.8 F 08/06/20 18:00 Pulse Rate 95 H 08/06/20 20:45 Respiratory Rate 20 08/06/20 22:31 Blood Pressure 84/59 L 08/06/20 18:00 O2 Sat by Pulse Oximetry (%) 100 08/06/20 22:31 HENT: Yes: Other ((+) Trach) Cardiovascular: Yes: Tachycardia Respiratory: Yes: Diminished Gastrointestinal: Yes: WNL, Normal Bowel Sounds, Soft, Other ((+) PEG) Labs: CBC, BMP 08/06/20 07:00 08/06/20 07:00 INR, PTT INR 1.70 (0.83-1.09) H 08/04/20 05:20 Fibrinogen 344.0 mg/dL (238-498) 07/21/20 06:00 Problem List - Problems (1) Respiratory failure Assessment/Plan: Acute on chronic respiratory failure Multifactorial RLL infiltrates ?Asp pneumonia S/P tracheostomy S/P Pneumothorax EITAN Check CXR in am Code(s): J96.90 - RESPIRATORY FAILURE, UNSP, UNSP W HYPOXIA OR HYPERCAPNIA (2) Sepsis Assessment/Plan: Lactic acidosis Cont IVF Cont IV Tigacil Pt on pressors UTI vs Aspiration pneumonia Blood culture/urine culture negative to date Code(s): A41.9 - SEPSIS, UNSPECIFIED ORGANISM Qualifiers: Sepsis type: sepsis due to unspecified organism Sepsis acute organ dysfunction status: unspecified Qualified Code(s): A41.9 - Sepsis, unspecified organism (3) Anemia Assessment/Plan: Monitor H/H S/p transfusion PRBC's H/H improved Code(s): D64.9 - ANEMIA, UNSPECIFIED (4) At risk for electrolyte imbalance Assessment/Plan: Electrolytes improved Cont to monitor Code(s): Z91.89 - OTH PERSONAL RISK FACTORS, NOT ELSEWHERE CLASSIFIED (5) Liver cirrhosis, alcoholic Assessment/Plan: Cont to monitor Poor prognosis Code(s): K70.30 - ALCOHOLIC CIRRHOSIS OF LIVER WITHOUT ASCITES (6) Hypoalbuminemia Code(s): E88.09 - OTH DISORDERS OF PLASMA-PROTEIN METABOLISM, NEC (7) Substance abuse Assessment/Plan: Psych consult ?Competency Code(s): F19.10 - OTHER PSYCHOACTIVE SUBSTANCE ABUSE, UNCOMPLICATED (8) Cachexia Assessment/Plan: Due to severe protein malnutrition Code(s): R64 - CACHEXIA (9) Severe malnutrition Code(s): E43 - UNSPECIFIED SEVERE PROTEIN-CALORIE MALNUTRITION (10) Sacral ulcer Assessment/Plan: Surgical consult noted Cont wound care No surgical intervention at this time Code(s): L98.429 - NON-PRESSURE CHRONIC ULCER OF BACK WITH UNSPECIFIED SEVERITY (11) SBO (small bowel obstruction) Assessment/Plan: Surgical consult noted Cont NPO Cont IVF Monitor serial abdominal xrays Monitor hypoglycemia CT scan abd showed probable anasacra/ascites Pt now on enteral feeds Code(s): K56.609 - UNSP INTESTNL OBST, UNSP TO PARTIAL VERSUS COMPLETE OBST
[2020-08-07] MEDS: HYDROmorphone HCl 2 MG/ML VIAL IVPUSH PRN ×2 (01:49→14:56)
[2020-08-07] MEDS: ACETAMINOPHEN 1000 MG/100 ML VIAL (NON FORMULARY) IVPB SCH ×4 (04:58→23:31)
[2020-08-07 07:25] LABS: INR 1.67 (0.83-1.09); PROTHROMBIN TIME (PATIENT) 19.8 SEC (9.7-13.0)
[2020-08-07 07:30] LABS: HEMATOCRIT 28.2 % (32.4-45.2); HEMOGLOBIN 9.5 GM/dL (10.7-15.3); MCH 30.5 pg (25.7-33.7); MCHC 33.6 g/dl (32.0-36.0); MEAN CELL VOLUME 90.8 fl (80-96); PLATELET COUNT 116 K/MM3 (134-434); RDW 18.4 % (11.6-15.6); WHITE BLOOD COUNT 8.1 K/mm3 (4.0-10.0)
[2020-08-07 07:50] LABS: ANION GAP 4 MMOL/L (8-16); BLOOD UREA NITROGEN 23.1 mg/dL (7-18); CHLORIDE 109 mmol/L (98-107); CO2 23 mmol/L (21-32); GLUCOSE,RANDOM 99 mg/dL (74-106); MAGNESIUM 1.9 mg/dL (1.8-2.4); PHOSPHOROUS 3.2 mg/dL (2.5-4.9); POTASSIUM 5.4 mmol/L (3.5-5.1); SODIUM 136 mmol/L (136-145)
[2020-08-07 08:12] LABS: CREATININE < 0.5 mg/dL (0.55-1.3)
[2020-08-07] MEDS ORDERED: PT OWN MED DRAWER 7, Y5N ONE (09:27)
[2020-08-07 09:29] LABS: CALCIUM 6.6 mg/dL (8.5-10.1)
[2020-08-07] MEDS: TIGECYCLINE 50 MG in DEXTROSE 5%-WATER - 100 ML IVPB SCH (09:35)
[2020-08-07] MEDS: METHADONE HCL 10 MG TABLET PO SCH ×3 (09:46→23:29)
[2020-08-07] MEDS: HEPARIN NA (PORCINE) 5,000 UNITS/ML 1ML VIAL SQ SCH ×2 (09:46→21:53)
[2020-08-07] MEDS: MULTIVIT-MINERALS ORAL LIQUID NGT SCH (09:46)
[2020-08-07] MEDS: FAMOTIDINE 40 MG/5 ML ORAL SUSPENSION PEG SCH (09:46)
[2020-08-07] MEDS: ASCORBIC ACID 500 MG TABLET (FP) PO SCH (09:47)
[2020-08-07] MEDS: THIAMINE HCL 200 MG/2 ML VIAL IVPB SCH (09:47)
[2020-08-07] MEDS: FOLIC ACID 1 MG TABLET (FP) NGT SCH (09:47)
[2020-08-07] MEDS: COLLAGENASE CLOSTRIDIUM HIST. 30 GRAMS TUBE TP SCH (09:47)
[2020-08-07] MEDS: ZINC OXIDE 20% TOPICAL OINTMENT 30 GM TUBE TP SCH (09:48)
[2020-08-07] MEDS: LIDOCAINE HCL 5% TOP OINTMENT 50 GM TUBE TP SCH (09:48)
--- NOTE | 2020-08-07 11:49 | PN ---
Teaching Attending Note Name of Resident: Masha Eduardo ATTENDING PHYSICIAN STATEMENT I saw and evaluated the patient. I reviewed the resident's note and discussed the case with the resident. I agree with the resident's findings and plan as documented. SUBJECTIVE: Patient seen and examined in the ICU. Vented, awake and interactive. Diarrhea. Pain is seems better today after adding Methadone yesterday. Pleural catheter intact without an air leak. No pressors. Remains on Precedex. CXR: : Improving large Left PTX OBJECTIVE: Intake & Output 08/04/20 08/05/20 08/06/20 08/07/20 23:59 23:59 23:59 23:59 Intake Total 2267 2878.4 2510.6 832.5 Output Total 3429 276 0726 800 Balance 827 2038.4 885.6 32.5 Weight 75 lb 6.369 oz 70 lb 15.822 oz 72 lb 4.986 oz 71 lb 3.349 oz Last Vital Signs Temp Pulse Resp BP Pulse Ox 97.8 F 93 H 18 84/60 L 99 08/06/20 22:01 08/07/20 10:00 08/07/20 10:00 08/07/20 10:00 08/07/20 10:00 Active Medications Acetaminophen (Ofirmev Injection -) 500 mg IVPB Q6H [facility] Last Admin: 08/07/20 09:45 Dose: 500 mg Documented by: Ascorbic Acid (Vitamin C -) 500 mg PO DAILY [facility] Last Admin: 08/07/20 09:47 Dose: 500 mg Documented by: Collagenase (Santyl -) 1 applic TP DAILY [facility]; Protocol Last Admin: 08/07/20 09:47 Dose: 1 applic Documented by: Dextrose (D50w (Vial) -) 12.5 gm IVPUSH PRN PRN PRN Reason: HYPOGLYCEMIA Last Admin: 07/31/20 06:34 Dose: 12.5 gm Documented by: Famotidine (Pepcid) 20 mg PEG DAILY [facility] Last Admin: 08/07/20 09:46 Dose: 20 mg Documented by: Folic Acid (Folic Acid -) 1 mg NGT DAILY [facility] Last Admin: 08/07/20 09:47 Dose: 1 mg Documented by: Heparin Sodium (Porcine) (Heparin -) 5,000 unit SQ BID [facility] Last Admin: 08/07/20 09:46 Dose: 5,000 unit Documented by: Hydromorphone HCl (Dilaudid Vial -) 1 mg IVPUSH Q3H PRN PRN Reason: PAIN LEVEL 7 - 10 Last Admin: 08/07/20 01:49 Dose: 1 mg Documented by: Tigecycline 50 mg/ Dextrose 100 mls @ 100 mls/hr IVPB BID [facility]; Protocol Last Admin: 08/07/20 09:35 Dose: 100 mls/hr Documented by: Lidocaine HCl (Xylocaine 5% Top. Ointment) 1 applic TP DAILY [facility] Last Admin: 08/07/20 09:48 Dose: 1 applic Documented by: Methadone HCl (Dolophine -) 10 mg PO BID [facility] Last Admin: 08/07/20 09:46 Dose: 10 mg Documented by: Midazolam HCl (Versed -) 1 mg IVPUSH Q6H PRN PRN Reason: ANXIETY Last Admin: 08/06/20 06:12 Dose: 1 mg Documented by: Multi-Ingredient Ointment (Zinc Oxide) 1 applic TP DAILY [facility] Last Admin: 08/07/20 09:48 Dose: 1 applic Documented by: Multivitamins/Minerals (Certavite-Antioxidant Liquid) 15 ml NGT DAILY [facility] Last Admin: 08/07/20 09:46 Dose: 15 ml Documented by: Thiamine HCl (Vitamin B1 Injection -) 100 mg IVPB DAILY [facility] Last Admin: 08/07/20 09:47 Dose: 100 mg Documented by: Gen: vented, awake and alert, cachectic Heart: RRR Lung: Vented, scattered rhonchi, Left pleural catheter Abd: soft, (+) BS< (+) GT Ext: no edema Laboratory Results - last 24 hr 08/06/20 08/06/20 08/07/20 13:31 18:56 00:18 WBC RBC Hgb Hct MCV MCH MCHC RDW Plt Count MPV PT with INR INR PTT (Actin FS) Sodium Potassium Chloride Carbon Dioxide Anion Gap BUN Creatinine Est GFR (CKD-EPI)AfAm Est GFR (CKD-EPI)NonAf POC Glucometer 114 96 107 Random Glucose Calcium Phosphorus Magnesium 08/07/20 08/07/20 08/07/20 06:27 06:41 06:41 WBC 8.1 RBC 3.10 L Hgb 9.5 L Hct 28.2 L MCV 90.8 MCH 30.5 MCHC 33.6 RDW 18.4 H Plt Count 116 L MPV 9.0 PT with INR INR PTT (Actin FS) Sodium 136 Potassium 5.4 H Chloride 109 H Carbon Dioxide 23 Anion Gap 4 L BUN 23.1 H Creatinine < 0.5 L Est GFR (CKD-EPI)AfAm 145.33 Est GFR (CKD-EPI)NonAf 125.39 POC Glucometer 107 Random Glucose 99 Calcium 6.6 L* Phosphorus 3.2 Magnesium 1.9 08/07/20 06:41 WBC RBC Hgb Hct MCV MCH MCHC RDW Plt Count MPV PT with INR 19.80 H INR 1.67 H PTT (Actin FS) 40.0 H Sodium Potassium Chloride Carbon Dioxide Anion Gap BUN Creatinine Est GFR (CKD-EPI)AfAm Est GFR (CKD-EPI)NonAf POC Glucometer Random Glucose Calcium Phosphorus Magnesium ASSESSMENT AND PLAN: Acute Hypoxic Respiratory Failure s/p Tracheostomy Pneumonia likely Aspiration UTI Sepsis Hyponatremia Small Bowel Obstruction Ascites s/p Peritoneal drain placement Alcohol/Heroin Abuse Anemia/Thrombocytopenia Failure to Thrive Severe Protein Calorie Malnutrition Refeeding Syndrome - Maintain pigtail to suction - pain control : Methadone - monitor urine output, creatinine - replete lytes - continue antibiotics - Hold spontaneous breathing trials for now - DVT/GI prophylaxis - continue ICU monitoring LTAC evaluation Dr Babb Critical care time spent in reviewing chart, evaluating patient and formulating plan 35 min
--- NOTE | 2020-08-07 13:40 | PN ---
Physical Exam: SUBJECTIVE: Patient seen and examined OBJECTIVE: Vital Signs Period Temp Pulse Resp BP Sys/Campbell Pulse Ox Last 24 Hr 97.8 F-99.5 F 73-110 15-31 68-100/41-79 95-100 GENERAL: The patient is awake, alert, and fully oriented, in no acute distress. HEAD: Normal with no signs of trauma. EYES: PERRL, extraocular movements intact, sclera anicteric, conjunctiva clear. No ptosis. ENT: Ears normal, nares patent, oropharynx clear without exudates, moist mucous membranes. NECK: Trachea midline, full range of motion, supple. LUNGS: Breath sounds equal, clear to auscultation bilaterally, no wheezes, no crackles, no accessory muscle use. HEART: Regular rate and rhythm, S1, S2 without murmur, rub or gallop. ABDOMEN: Soft, nontender, nondistended, normoactive bowel sounds, no guarding, no rebound, no hepatosplenomegaly, no masses. EXTREMITIES: 2+ pulses, warm, well-perfused, no edema. NEUROLOGICAL: Cranial nerves II through XII grossly intact. Normal speech, gait not observed. PSYCH: Normal mood, normal affect. SKIN: Warm, dry, normal turgor, no rashes or lesions noted Laboratory Results - last 24 hr 08/06/20 08/07/20 08/07/20 18:56 00:18 06:27 WBC RBC Hgb Hct MCV MCH MCHC RDW Plt Count MPV PT with INR INR PTT (Actin FS) Sodium Potassium Chloride Carbon Dioxide Anion Gap BUN Creatinine Est GFR (CKD-EPI)AfAm Est GFR (CKD-EPI)NonAf POC Glucometer 96 107 107 Random Glucose Calcium Phosphorus Magnesium 08/07/20 08/07/20 08/07/20 06:41 06:41 06:41 WBC 8.1 RBC 3.10 L Hgb 9.5 L Hct 28.2 L MCV 90.8 MCH 30.5 MCHC 33.6 RDW 18.4 H Plt Count 116 L MPV 9.0 PT with INR 19.80 H INR 1.67 H PTT (Actin FS) 40.0 H Sodium 136 Potassium 5.4 H Chloride 109 H Carbon Dioxide 23 Anion Gap 4 L BUN 23.1 H Creatinine < 0.5 L Est GFR (CKD-EPI)AfAm 145.33 Est GFR (CKD-EPI)NonAf 125.39 POC Glucometer Random Glucose 99 Calcium 6.6 L* Phosphorus 3.2 Magnesium 1.9 08/07/20 12:17 WBC RBC Hgb Hct MCV MCH MCHC RDW Plt Count MPV PT with INR INR PTT (Actin FS) Sodium Potassium Chloride Carbon Dioxide Anion Gap BUN Creatinine Est GFR (CKD-EPI)AfAm Est GFR (CKD-EPI)NonAf POC Glucometer 108 Random Glucose Calcium Phosphorus Magnesium Active Medications Generic Name Dose Route Start Last Admin Trade Name Freq PRN Reason Stop Dose Admin Acetaminophen 500 mg 08/01/20 10:00 08/07/20 09:45 Ofirmev Injection - IVPB 500 mg Q6H RAUL Administration Ascorbic Acid 500 mg 07/27/20 13:00 08/07/20 09:47 Vitamin C - PO 500 mg DAILY [facility] Administration Collagenase 1 applic 08/05/20 19:30 08/07/20 09:47 Santyl - TP 1 applic DAILY RAUL Administration Protocol Dextrose 12.5 gm 07/08/20 07:08 07/31/20 06:34 D50w (Vial) - IVPUSH 12.5 gm PRN PRN Administration HYPOGLYCEMIA Famotidine 20 mg 08/04/20 10:45 08/07/20 09:46 Pepcid PEG 20 mg DAILY RAUL Administration Folic Acid 1 mg 07/06/20 10:00 08/07/20 09:47 Folic Acid - NGT 1 mg DAILY RAUL Administration Heparin Sodium (Porcine) 5,000 unit 07/20/20 10:00 08/07/20 09:46 Heparin - SQ 5,000 unit BID RAUL Administration Hydromorphone HCl 1 mg 07/26/20 13:39 08/07/20 01:49 Dilaudid Vial - IVPUSH 1 mg Q3H PRN Administration PAIN LEVEL 7 - 10 Tigecycline 50 mg/ Dextrose 100 mls @ 100 mls/hr 07/28/20 10:00 08/07/20 09:35 IVPB 100 mls/hr BID RAUL Administration Protocol Lidocaine HCl 1 applic 07/25/20 21:50 08/07/20 09:48 Xylocaine 5% Top. Ointment TP 1 applic DAILY RAUL Administration Methadone HCl 10 mg 08/06/20 13:00 08/07/20 09:46 Dolophine - PO 10 mg BID RAUL Administration Midazolam HCl 1 mg 08/05/20 10:54 08/06/20 06:12 Versed - IVPUSH 1 mg Q6H PRN Administration ANXIETY Multi-Ingredient Ointment 1 applic 07/19/20 13:30 08/07/20 09:48 Zinc Oxide TP 1 applic DAILY RAUL Administration Multivitamins/Minerals 15 ml 07/06/20 11:45 08/07/20 09:46 Certavite-Antioxidant Liquid NGT 15 ml DAILY RAUL Administration Thiamine HCl 100 mg 07/11/20 12:45 08/07/20 09:47 Vitamin B1 Injection - IVPB 100 mg DAILY RAUL Administration ASSESSMENT/PLAN: ASSESSMENT/PLAN: 35 yo female with PMH of malnutrition 2/2 bulimia and polysubstance use disorder, cirrhosis, & heroin abuse, in ICU with sepsis and acute hypoxic respiratory failure, now s/p trach, sp abdominal peritoneal drain, s/p peg placement. Neuro - Alert, responsive, able to communicate with writing and mouthing words - Dilaudid 1g, q3h - Discontinued Precedex CV - Septic Shock (UTI vs Aspiration Pneumonia) - Baseline MAP 70 - Discontinued vasopressin Respiratory - Acute Hypoxic Respiratory Failure 2/2 Aspiration Pneumonia - Tracheostomy on 07/25; maintain SpO2 >90% - Pneumothorax (L upper lobe) - repeat CXR in AM - remained on suction, no air lead - continue to watch, if worsens consider chest tube placement GI - Refeeding Syndrome Risk - Ascites, 2/2 to hypoalbunemia/cirrhosis - Peritoneal drain placed on 07/27 - SAAG score < 1.1 (less likely from portal HTN) - PEG Tube placed 07/31 - IV Tylenol 500 mg Q6h: keep to 2 g daily for liver disease - mistry in place - UTI - colovesicular fistula - Renal following (Dr. Chavez) ID - Septic Shock (UTI vs Aspiration Pneumonia) - Urine Cx +ESBL Klebsiella pneumo, carbapenem-resistent - S/p Vanc/Zosyn/Meropenem - currently on Tigecycline (Day 9) - ID following (Dr. Martines) Heme - Normocytic Anemia (Hb 9.5) - Thrombocytopenia (Plt 116) - Chronically Elevated PT/INR & PTT - check coags daily Psych - Hx of Eating Disorder - Hx of Alcohol/Heroin Abuse - Methadone 10mg, BID - Drug cessation counseling - Hx of Anxiety - Versed 10, BID q6 Derm - Multiple Sacral Ulcers (stage 4) - Daily wound care, air mattress - Off-loading to all bony areas (heels, ankles, hips and tailbone) with Allevyn/Optifoam FEN - Hyperkalemia (5.4), discontinue banana flakes - Hypoalbuminemia (1.4) - 2/2 to severe malnutrition - Perative Tube feeds, titrate up to 45 - check and replete electrolytes as needed Prophylaxis - DVT ppx: BID SQH because of low bodyweight Dispo - Cont to monitor in ICU - logistics solution manager: Referral remains open with [facility]. Visit type - Emergency Visit Emergency Visit: Yes ED Registration Date: 07/01/20 Care time: The patient presented to the Emergency Department on the above date and was hospitalized for further evaluation of their emergent condition. - New Patient This patient is new to me today: No - Critical Care Critical Care patient: No ATTENDING PHYSICIAN STATEMENT I saw and evaluated the patient. I reviewed the resident's note and discussed the case with the resident. I agree with the resident's findings and plan as documented. SUBJECTIVE: OBJECTIVE: ASSESSMENT AND PLAN:
--- NOTE | 2020-08-07 13:47 | PN ---
Progress Note, Physician History of Present Illness: Pt seen and examined at bedside. She is awake and appears comfortable. - Current Medication List Current Medications: Active Medications Acetaminophen (Ofirmev Injection -) 500 mg IVPB Q6H [facility] Last Admin: 08/07/20 09:45 Dose: 500 mg Documented by: Ascorbic Acid (Vitamin C -) 500 mg PO DAILY [facility] Last Admin: 08/07/20 09:47 Dose: 500 mg Documented by: Collagenase (Santyl -) 1 applic TP DAILY [facility]; Protocol Last Admin: 08/07/20 09:47 Dose: 1 applic Documented by: Dextrose (D50w (Vial) -) 12.5 gm IVPUSH PRN PRN PRN Reason: HYPOGLYCEMIA Last Admin: 07/31/20 06:34 Dose: 12.5 gm Documented by: Famotidine (Pepcid) 20 mg PEG DAILY [facility] Last Admin: 08/07/20 09:46 Dose: 20 mg Documented by: Folic Acid (Folic Acid -) 1 mg NGT DAILY [facility] Last Admin: 08/07/20 09:47 Dose: 1 mg Documented by: Heparin Sodium (Porcine) (Heparin -) 5,000 unit SQ BID [facility] Last Admin: 08/07/20 09:46 Dose: 5,000 unit Documented by: Hydromorphone HCl (Dilaudid Vial -) 1 mg IVPUSH Q3H PRN PRN Reason: PAIN LEVEL 7 - 10 Last Admin: 08/07/20 01:49 Dose: 1 mg Documented by: Lidocaine HCl (Xylocaine 5% Top. Ointment) 1 applic TP DAILY [facility] Last Admin: 08/07/20 09:48 Dose: 1 applic Documented by: Methadone HCl (Dolophine -) 10 mg PO BID [facility] Last Admin: 08/07/20 09:46 Dose: 10 mg Documented by: Midazolam HCl (Versed -) 1 mg IVPUSH Q6H PRN PRN Reason: ANXIETY Last Admin: 08/06/20 06:12 Dose: 1 mg Documented by: Multi-Ingredient Ointment (Zinc Oxide) 1 applic TP DAILY [facility] Last Admin: 08/07/20 09:48 Dose: 1 applic Documented by: Multivitamins/Minerals (Certavite-Antioxidant Liquid) 15 ml NGT DAILY [facility] Last Admin: 08/07/20 09:46 Dose: 15 ml Documented by: Thiamine HCl (Vitamin B1 Injection -) 100 mg IVPB DAILY [facility] Last Admin: 08/07/20 09:47 Dose: 100 mg Documented by: - Objective Vital Signs: Vital Signs Temperature 99.5 F 08/07/20 10:00 Pulse Rate 85 08/07/20 12:00 Respiratory Rate 21 H 08/07/20 12:19 Blood Pressure 79/58 L 08/07/20 12:00 O2 Sat by Pulse Oximetry (%) 99 08/07/20 10:00 Constitutional: Yes: Calm Cardiovascular: Yes: S1, S2 Respiratory: Yes: Regular, Mechanically Ventilated, Other Musculoskeletal: Yes: WNL Extremities: Yes: WNL Neurological: Yes: Alert Psychiatric: Yes: Alert Labs: CBC, BMP 08/07/20 06:41 08/07/20 06:41 INR, PTT INR 1.67 (0.83-1.09) H 08/07/20 06:41 Fibrinogen 344.0 mg/dL (238-498) 07/21/20 06:00 Assessment/Plan Pneumonia likely Aspiration UTI Sepsis Hyponatremia SBO resolving Alcohol/Heroin Abuse Anemia Failure to Thrive Severe Protein Calorie Malnutrition uti sacral wounds dirrhoea plan continue current mgmt nutrition as per icu vent mgmt close watch cc 38 min
[2020-08-07] MEDS ORDERED: SODIUM ZIRCONIUM CYCLOSILICATE (LOKELMA) 5 GM PACKET PO ONE (14:57)
--- NOTE | 2020-08-07 15:01 | PN ---
Progress Note, Physician History of Present Illness: Pt seen and examined at bedside. She is awake and appears comfortable. - Current Medication List Current Medications: Active Medications Acetaminophen (Ofirmev Injection -) 500 mg IVPB Q6H [facility] Last Admin: 08/07/20 09:45 Dose: 500 mg Documented by: Ascorbic Acid (Vitamin C -) 500 mg PO DAILY [facility] Last Admin: 08/07/20 09:47 Dose: 500 mg Documented by: Collagenase (Santyl -) 1 applic TP DAILY [facility]; Protocol Last Admin: 08/07/20 09:47 Dose: 1 applic Documented by: Dextrose (D50w (Vial) -) 12.5 gm IVPUSH PRN PRN PRN Reason: HYPOGLYCEMIA Last Admin: 07/31/20 06:34 Dose: 12.5 gm Documented by: Famotidine (Pepcid) 20 mg PEG DAILY [facility] Last Admin: 08/07/20 09:46 Dose: 20 mg Documented by: Folic Acid (Folic Acid -) 1 mg NGT DAILY [facility] Last Admin: 08/07/20 09:47 Dose: 1 mg Documented by: Heparin Sodium (Porcine) (Heparin -) 5,000 unit SQ BID [facility] Last Admin: 08/07/20 09:46 Dose: 5,000 unit Documented by: Hydromorphone HCl (Dilaudid Vial -) 1 mg IVPUSH Q3H PRN PRN Reason: PAIN LEVEL 7 - 10 Last Admin: 08/07/20 14:56 Dose: 1 mg Documented by: Lidocaine HCl (Xylocaine 5% Top. Ointment) 1 applic TP DAILY [facility] Last Admin: 08/07/20 09:48 Dose: 1 applic Documented by: Methadone HCl (Dolophine -) 10 mg PO BID [facility] Last Admin: 08/07/20 09:46 Dose: 10 mg Documented by: Midazolam HCl (Versed -) 1 mg IVPUSH Q6H PRN PRN Reason: ANXIETY Last Admin: 08/06/20 06:12 Dose: 1 mg Documented by: Multi-Ingredient Ointment (Zinc Oxide) 1 applic TP DAILY [facility] Last Admin: 08/07/20 09:48 Dose: 1 applic Documented by: Multivitamins/Minerals (Certavite-Antioxidant Liquid) 15 ml NGT DAILY [facility] Last Admin: 08/07/20 09:46 Dose: 15 ml Documented by: Thiamine HCl (Vitamin B1 Injection -) 100 mg IVPB DAILY [facility] Last Admin: 08/07/20 09:47 Dose: 100 mg Documented by: - Objective Vital Signs: Vital Signs Temperature 99.3 F 08/07/20 14:00 Pulse Rate 99 H 08/07/20 14:00 Respiratory Rate 20 08/07/20 14:00 Blood Pressure 91/60 08/07/20 14:00 O2 Sat by Pulse Oximetry (%) 99 08/07/20 10:00 Constitutional: Yes: Calm Eyes: Yes: Conjunctiva Clear HENT: Yes: Atraumatic Neck: Yes: Supple Cardiovascular: Yes: S1, S2 Respiratory: Yes: Mechanically Ventilated, Other (chest tube) Gastrointestinal: Yes: Normal Bowel Sounds, Soft Genitourinary: Yes: Uribe Present Musculoskeletal: Yes: Muscle Weakness Neurological: Yes: Oriented Labs: CBC, BMP 08/07/20 06:41 08/07/20 06:41 INR, PTT INR 1.67 (0.83-1.09) H 08/07/20 06:41 Fibrinogen 344.0 mg/dL (238-498) 07/21/20 06:00 Problem List - Problems (1) Hypoglycemia Code(s): E16.2 - HYPOGLYCEMIA, UNSPECIFIED (2) Sepsis Code(s): A41.9 - SEPSIS, UNSPECIFIED ORGANISM Qualifiers: Sepsis type: sepsis due to unspecified organism Sepsis acute organ dysf unction status: unspecified Qualified Code(s): A41.9 - Sepsis, unspecified organism (3) Hypoalbuminemia Code(s): E88.09 - OTH DISORDERS OF PLASMA-PROTEIN METABOLISM, NEC (4) Hyponatremia Code(s): E87.1 - HYPO-OSMOLALITY AND HYPONATREMIA Assessment/Plan Current Medications Generic Name Dose Route Start Last Admin Trade Name Freq PRN Reason Stop Dose Admin Acetaminophen 500 mg 08/01/20 10:00 08/07/20 09:45 Ofirmev Injection - IVPB 500 mg Q6H RAUL Administration Ascorbic Acid 500 mg 07/27/20 13:00 08/07/20 09:47 Vitamin C - PO 500 mg DAILY RAUL Administration Collagenase 1 applic 08/05/20 19:30 08/07/20 09:47 Santyl - TP 1 applic DAILY [facility]UL Administration Protocol Dextrose 12.5 gm 07/08/20 07:08 07/31/20 06:34 D50w (Vial) - IVPUSH 12.5 gm PRN PRN Administration HYPOGLYCEMIA Famotidine 20 mg 08/04/20 10:45 08/07/20 09:46 Pepcid PEG 20 mg DAILY RAUL Administration Folic Acid 1 mg 07/06/20 10:00 08/07/20 09:47 Folic Acid - NGT 1 mg DAILY [facility]UL Administration Heparin Sodium (Porcine) 5,000 unit 07/20/20 10:00 08/07/20 09:46 Heparin - SQ 5,000 unit BID RAUL Administration Hydromorphone HCl 1 mg 07/26/20 13:39 08/07/20 14:56 Dilaudid Vial - IVPUSH 1 mg Q3H PRN Administration PAIN LEVEL 7 - 10 Lidocaine HCl 1 applic 07/25/20 21:50 08/07/20 09:48 Xylocaine 5% Top. Ointment TP 1 applic DAILY RAUL Administration Methadone HCl 10 mg 08/06/20 13:00 08/07/20 09:46 Dolophine - PO 10 mg BID RAUL Administration Midazolam HCl 1 mg 08/05/20 10:54 08/06/20 06:12 Versed - IVPUSH 1 mg Q6H PRN Administration ANXIETY Multi-Ingredient Ointment 1 applic 07/19/20 13:30 08/07/20 09:48 Zinc Oxide TP 1 applic DAILY RAUL Administration Multivitamins/Minerals 15 ml 07/06/20 11:45 08/07/20 09:46 Certavite-Antioxidant Liquid NGT 15 ml DAILY RAUL Administration Sodium Zirconium Cyclosilicate 10 gm 08/07/20 14:57 Lokelma PO 08/07/20 14:58 ONCE ONE Thiamine HCl 100 mg 07/11/20 12:45 08/07/20 09:47 Vitamin B1 Injection - IVPB 100 mg DAILY RAUL Administration Impression 1. azotemia 2. hyponatremia 3. hyperkalemia 4. hypotension 5. sepsis 6. sbo 7. uti 8. liver cirrhosis 9. hypoalbuminemia 10. etoh abuse 11. substance abuse 12. psoriasis 13. acute resp failure 14. malnutrition 15. 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
--- NOTE | 2020-08-07 16:42 | PN ---
Progress Note, Physician History of Present Illness: CALM - Current Medication List Current Medications: Active Medications Acetaminophen (Ofirmev Injection -) 500 mg IVPB Q6H [facility] Last Admin: 08/07/20 09:45 Dose: 500 mg Documented by: Ascorbic Acid (Vitamin C -) 500 mg PO DAILY [facility] Last Admin: 08/07/20 09:47 Dose: 500 mg Documented by: Collagenase (Santyl -) 1 applic TP DAILY [facility]; Protocol Last Admin: 08/07/20 09:47 Dose: 1 applic Documented by: Dextrose (D50w (Vial) -) 12.5 gm IVPUSH PRN PRN PRN Reason: HYPOGLYCEMIA Last Admin: 07/31/20 06:34 Dose: 12.5 gm Documented by: Famotidine (Pepcid) 20 mg PEG DAILY [facility] Last Admin: 08/07/20 09:46 Dose: 20 mg Documented by: Folic Acid (Folic Acid -) 1 mg NGT DAILY [facility] Last Admin: 08/07/20 09:47 Dose: 1 mg Documented by: Heparin Sodium (Porcine) (Heparin -) 5,000 unit SQ BID [facility] Last Admin: 08/07/20 09:46 Dose: 5,000 unit Documented by: Hydromorphone HCl (Dilaudid Vial -) 1 mg IVPUSH Q3H PRN PRN Reason: PAIN LEVEL 7 - 10 Last Admin: 08/07/20 14:56 Dose: 1 mg Documented by: Lidocaine HCl (Xylocaine 5% Top. Ointment) 1 applic TP DAILY [facility] Last Admin: 08/07/20 09:48 Dose: 1 applic Documented by: Methadone HCl (Dolophine -) 10 mg PO BID [facility] Last Admin: 08/07/20 09:46 Dose: 10 mg Documented by: Midazolam HCl (Versed -) 1 mg IVPUSH Q6H PRN PRN Reason: ANXIETY Last Admin: 08/06/20 06:12 Dose: 1 mg Documented by: Multi-Ingredient Ointment (Zinc Oxide) 1 applic TP DAILY [facility] Last Admin: 08/07/20 09:48 Dose: 1 applic Documented by: Multivitamins/Minerals (Certavite-Antioxidant Liquid) 15 ml NGT DAILY [facility] Last Admin: 08/07/20 09:46 Dose: 15 ml Documented by: Thiamine HCl (Vitamin B1 Injection -) 100 mg IVPB DAILY [facility] Last Admin: 08/07/20 09:47 Dose: 100 mg Documented by: - Objective Vital Signs: Vital Signs Temperature 99.3 F 08/07/20 14:00 Pulse Rate 99 H 08/07/20 14:00 Respiratory Rate 27 H 08/07/20 15:59 Blood Pressure 91/60 08/07/20 14:00 O2 Sat by Pulse Oximetry (%) 98 08/07/20 15:59 Constitutional: Yes: Calm HENT: Yes: Atraumatic Neck: Yes: Other (trach collar) Cardiovascular: Yes: Regular Rate and Rhythm Gastrointestinal: Yes: Normal Bowel Sounds Extremities: Yes: WNL Neurological: Yes: Alert Labs: CBC, BMP 08/07/20 06:41 08/07/20 06:41 INR, PTT INR 1.67 (0.83-1.09) H 08/07/20 06:41 Fibrinogen 344.0 mg/dL (238-498) 07/21/20 06:00 Problem List - Problems (1) At risk for electrolyte imbalance Assessment/Plan: MONITOR AND REPLACE Code(s): Z91.89 - OT PERSONAL RISK FACTORS, NOT ELSEWHERE CLASSIFIED (2) SBO (small bowel obstruction) Assessment/Plan: FOR PEG ON tf Code(s): K56.609 - UNSP INTESTNL OBST, UNSP TO PARTIAL VERSUS COMPLETE OBST (3) Sepsis Assessment/Plan: ON IV ABX CXS NOTED wbc wnl Code(s): A41.9 - SEPSIS, UNSPECIFIED ORGANISM Qualifiers: Sepsis type: sepsis due to unspecified organism Sepsis acute organ dysfunction status: unspecified Qualified Code(s): A41.9 - Sepsis, unspecified organism (4) Alcoholic liver damage Code(s): K70.9 - ALCOHOLIC LIVER DISEASE, UNSPECIFIED (5) Hypoalbuminemia Code(s): E88.09 - OTH DISORDERS OF PLASMA-PROTEIN METABOLISM, NEC (6) Hyponatremia Code(s): E87.1 - HYPO-OSMOLALITY AND HYPONATREMIA (7) Liver cirrhosis, alcoholic Code(s): K70.30 - ALCOHOLIC CIRRHOSIS OF LIVER WITHOUT ASCITES (8) Ischemic hepatitis Code(s): K75.9 - INFLAMMATORY LIVER DISEASE, UNSPECIFIED (9) Respiratory failure Assessment/Plan: S/P TRACH ON VENT Code(s): J96.90 - RESPIRATORY FAILURE, UNSP, UNSP W HYPOXIA OR HYPERCAPNIA (10) UTI (urinary tract infection) Assessment/Plan: SEPSIS..RESOLVING ON IV ABX Code(s): N39.0 - URINARY TRACT INFECTION, SITE NOT SPECIFIED Qualifiers: Urinary tract infection type: site unspecified Hematuria presence: with hematuria Qualified Code(s): N39.0 - Urinary tract infection, site not specified; R31.9 - Hematuria, unspecified (11) Elevated LFTs Code(s): R79.89 - OTHER SPECIFIED ABNORMAL FINDINGS OF BLOOD CHEMISTRY (12) Hypothermia Assessment/Plan: stable PRN BEAR HUGGER Code(s): T68.XXXA - HYPOTHERMIA, INITIAL ENCOUNTER (13) Skin abrasion Assessment/Plan: AIR MATTRESS helping in healing Code(s): T14.8XXA - OTHER INJURY OF UNSPECIFIED BODY REGION, INITIAL ENCOUNTER (14) Sacral ulcer Code(s): L98.429 - NON-PRESSURE CHRONIC ULCER OF BACK WITH UNSPECIFIED SEVERITY (15) Severe malnutrition Code(s): E43 - UNSPECIFIED SEVERE PROTEIN-CALORIE MALNUTRITION (16) Pneumothorax on left Code(s): J93.9 - PNEUMOTHORAX, UNSPECIFIED (17) Hypotension Code(s): I95.9 - HYPOTENSION, UNSPECIFIED Assessment/Plan critical care time spent in reviewing chart, evaluating patient and formulating plan [address] octavio moses
[2020-08-07] MEDS ORDERED: morphine CARPU-JECT 2 MG/1 ML DISP.SYRIN SQ PRN (23:34)
[2020-08-07] MEDS ORDERED: LIDOCAINE 5% TOPICAL PATCH TP ONE (23:35)
[2020-08-07] MEDS ORDERED: MORPHINE SULFATE 2 MG/ML VIAL IVPUSH ONE (23:38)
[2020-08-08] MEDS: ACETAMINOPHEN 1000 MG/100 ML VIAL (NON FORMULARY) IVPB SCH ×4 (05:10→20:02)
[2020-08-08] MEDS: HYDROmorphone HCl 2 MG/ML VIAL IVPUSH PRN (07:42)
[2020-08-08 07:43] LABS: INR 1.52 (0.83-1.09)
[2020-08-08 07:44] LABS: HEMOGLOBIN 9.6 GM/dL (10.7-15.3); MCH 30.3 pg (25.7-33.7); MCHC 33.3 g/dl (32.0-36.0); MEAN CELL VOLUME 91.1 fl (80-96); MEAN PLT VOLUME 8.5 fl (7.5-11.1); PLATELET COUNT 198 K/MM3 (134-434); RBC 3.18 M/mm3 (3.60-5.2); RDW 18.8 % (11.6-15.6); WHITE BLOOD COUNT 11.5 K/mm3 (4.0-10.0)
[2020-08-08 07:45] LABS: ACTIVATED PTT 34.4 SECONDS (25.2-36.5)
[2020-08-08 07:55] LABS: ALBUMIN 1.5 g/dl (3.4-5.0); ANION GAP 7 MMOL/L (8-16); BILIRUBIN,TOTAL 0.6 mg/dL (0.2-1); CHLORIDE 105 mmol/L (98-107); CO2 24 mmol/L (21-32); CREATININE < 0.2 mg/dL (0.55-1.3); GLUCOSE,RANDOM 110 mg/dL (74-106); MAGNESIUM 1.9 mg/dL (1.8-2.4); PHOSPHOROUS 2.6 mg/dL (2.5-4.9); POTASSIUM 4.7 mmol/L (3.5-5.1); SGOT/AST 116 U/L (15-37); SGPT/ALT 111 U/L (13-61); SODIUM 135 mmol/L (136-145); TOT PROT 4.5 g/dl (6.4-8.2)
[2020-08-08 07:56] LABS: ALK PHOS > 1000 U/L (45-117)
[2020-08-08] MEDS: FOLIC ACID 1 MG TABLET (FP) NGT SCH (09:08)
[2020-08-08] MEDS: ASCORBIC ACID 500 MG TABLET (FP) PO SCH (09:08)
[2020-08-08] MEDS: HEPARIN NA (PORCINE) 5,000 UNITS/ML 1ML VIAL SQ SCH ×2 (09:09→22:50)
--- NOTE | 2020-08-08 09:10 | PN ---
Physical Exam: SUBJECTIVE: Patient seen and examined at bedside. Overnight, her HR was elevated at 150s and pt felt she was going thru withdrawal. Given 10 methadone which resolved HR back to normal Pt is resting comfortably. Complains of pain at chest tube site. OBJECTIVE: Vital Signs Period Temp Pulse Resp BP Sys/Campbell Pulse Ox Last 24 Hr 98.3 F-99.9 F 85-144 17-27 79-125/58-90 92-100 GENERAL: The patient is awake, alert, oriented HEAD: Normal with no signs of trauma, temporal wasting, tracheostomy EYES: PERRL, extraocular movements intact, sclera anicteric, conjunctiva clear. No ptosis. ENT: Ears normal, nares patent, oropharynx clear without exudates, moist mucous membranes. NECK: Trachea midline, full range of motion, supple. LUNGS: Breath sounds diminished on right basilar, crackles on right base, absent breath sounds on left lung. clear to auscultation bilaterally, no wheezes, no accessory muscle use. HEART: regular rhythm, S1, S2 without murmur, rub or gallop. ABDOMEN: thin, peg tube Soft, nontender, nondistended, normoactive bowel sounds, no guarding, rebound, no hepatosplenomegaly, no masses. EXTREMITIES: 2+ pulses, warm, well-perfused, no edema. NEUROLOGICAL: Cranial nerves II through XII grossly intact, gait not observed. PSYCH: Normal mood, normal affect. SKIN: Warm, dry, normal turgor, sacral ulcer (unstagable), peritoneal ulcer Laboratory Results - last 24 hr 08/07/20 08/07/20 08/07/20 06:41 12:17 18:11 WBC RBC Hgb Hct MCV MCH MCHC RDW Plt Count MPV PT with INR INR PTT (Actin FS) Sodium Potassium Chloride Carbon Dioxide Anion Gap BUN Creatinine Est GFR (CKD-EPI)AfAm Est GFR (CKD-EPI)NonAf POC Glucometer 108 108 Random Glucose Calcium 6.6 L* Phosphorus Magnesium Total Bilirubin AST ALT Alkaline Phosphatase Total Protein Albumin 08/08/20 08/08/20 08/08/20 05:56 06:15 06:15 WBC 11.5 H RBC 3.18 L Hgb 9.6 L Hct 29.0 L MCV 91.1 MCH 30.3 MCHC 33.3 RDW 18.8 H Plt Count 198 D MPV 8.5 PT with INR INR PTT (Actin FS) Sodium 135 L Potassium 4.7 Chloride 105 Carbon Dioxide 24 Anion Gap 7 L BUN 24.0 H Creatinine < 0.2 L Est GFR (CKD-EPI)AfAm 196.46 Est GFR (CKD-EPI)NonAf 169.51 POC Glucometer 100 Random Glucose 110 H Calcium 7.0 L Phosphorus 2.6 Magnesium 1.9 Total Bilirubin 0.6 AST 116 H ALT 111 H Alkaline Phosphatase > 1000 H Total Protein 4.5 L Albumin 1.5 L 08/08/20 06:15 WBC RBC Hgb Hct MCV MCH MCHC RDW Plt Count MPV PT with INR 18.00 H INR 1.52 H PTT (Actin FS) 34.4 Sodium Potassium Chloride Carbon Dioxide Anion Gap BUN Creatinine Est GFR (CKD-EPI)AfAm Est GFR (CKD-EPI)NonAf POC Glucometer Random Glucose Calcium Phosphorus Magnesium Total Bilirubin AST ALT Alkaline Phosphatase Total Protein Albumin Active Medications Generic Name Dose Route Start Last Admin Trade Name Freq PRN Reason Stop Dose Admin Acetaminophen 500 mg 08/01/20 10:00 08/08/20 05:10 Ofirmev Injection - IVPB 500 mg Q6H RAUL Administration Ascorbic Acid 500 mg 07/27/20 13:00 08/07/20 09:47 Vitamin C - PO 500 mg DAILY RAUL Administration Collagenase 1 applic 08/05/20 19:30 08/07/20 09:47 Santyl - TP 1 applic DAILY RAUL Administration Protocol Dextrose 12.5 gm 07/08/20 07:08 07/31/20 06:34 D50w (Vial) - IVPUSH 12.5 gm PRN PRN Administration HYPOGLYCEMIA Famotidine 20 mg 08/04/20 10:45 08/07/20 09:46 Pepcid PEG 20 mg DAILY RAUL Administration Folic Acid 1 mg 07/06/20 10:00 08/07/20 09:47 Folic Acid - NGT 1 mg DAILY RAUL Administration Heparin Sodium (Porcine) 5,000 unit 07/20/20 10:00 08/07/20 21:53 Heparin - SQ 5,000 unit BID RAUL Administration Hydromorphone HCl 1 mg 07/26/20 13:39 08/08/20 07:42 Dilaudid Vial - IVPUSH 1 mg Q3H PRN Administration PAIN LEVEL 7 - 10 Lidocaine HCl 1 applic 07/25/20 21:50 08/07/20 09:48 Xylocaine 5% Top. Ointment TP 1 applic DAILY RAUL Administration Methadone HCl 10 mg 08/06/20 13:00 08/07/20 23:29 Dolophine - PO Not Given BID RAUL Midazolam HCl 1 mg 08/05/20 10:54 08/06/20 06:12 Versed - IVPUSH 1 mg Q6H PRN Administration ANXIETY Miscellaneous 1 each 08/08/20 12:00 Lidoderm Patch Removal MC 08/08/20 12:01 ONCE@1200 ONE Multi-Ingredient Ointment 1 applic 07/19/20 13:30 08/07/20 09:48 Zinc Oxide TP 1 applic DAILY RAUL Administration Multivitamins/Minerals 15 ml 07/06/20 11:45 08/07/20 09:46 Certavite-Antioxidant Liquid NGT 15 ml DAILY RAUL Administration Thiamine HCl 100 mg 07/11/20 12:45 08/07/20 09:47 Vitamin B1 Injection - IVPB 100 mg DAILY RAUL Administration ASSESSMENT/PLAN: 35 yo female with PMH of malnutrition 2/2 bulimia and polysubstance use disorder, cirrhosis, & heroin abuse, in ICU with sepsis and acute hypoxic respiratory failure, now s/p trach, sp abdominal peritoneal drain, s/p peg placement. Neuro - Alert, responsive, able to communicate with writing and mouthing words - Dilaudid 1g, q3h - Morphine 1mg, q6h - Discontinue methadone due to elevated liver enzymes - Discontinued Precedex CV - Septic Shock (UTI vs Aspiration Pneumonia) -Resolved - Baseline MAP 70 Respiratory - Acute Hypoxic Respiratory Failure 2/2 Aspiration Pneumonia -Resolved - Tracheostomy on 07/25 - maintain SpO2 >90% - downsize trach tube at LTAC - L Pneumothorax - s/p chest tube and subsequent re-inflation - 08/08, on suction, air leak present GI - Refeeding Syndrome - Ascites, 2/2 to hypoalbunemia/cirrhosis - Peritoneal drain placed on 07/27 - SAAG score < 1.1 (less likely from portal HTN) - Ordered RUQ US to assess biliary function - Transaminase - Elevated Alk Phos - PEG Tube placed 07/31 - 08/08/2020 Will change TF to Jevity w/ Prosource to reduce volume and increase calories - IV Tylenol 500 mg Q6h: keep to 2 g daily for liver disease - mistry in place - UTI, s/p abx - 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 Chavez) ID - Septic Shock (UTI vs Aspiration Pneumonia) - Urine Cx +ESBL Klebsiella pneumo, carbapenem-resistent - S/p Vanc/Zosyn/Meropenem/Tigecycline (end 08/07) - ID following (Dr. Martines) Heme - Normocytic Anemia (Hb 9.6) - Thrombocytopenia (Plt 198) - Chronically Elevated PT/INR & PTT - Check coags daily Psych - Hx of Eating Disorder - Hx of Alcohol/Heroin Abuse - Methadone D/C'ed today 2 transaminitis - Hx of Anxiety - Versed 10, BID q6 Derm - Multiple Sacral Ulcers (stage 4) - Daily wound care, air mattress, w/ frequent turns - Off-loading to all bony areas (heels, ankles, hips and tailbone) with Allevyn/Optifoam FEN - Hyperkalemia resolved, discontinue banana flakes - Hypoalbuminemia - 12/04 to severe malnutrition - Perative Tube feeds, titrate up to 45 - check and replete electrolytes as needed Prophylaxis - DVT ppx: Heparin 5000u SQ Q12H 12/04 low bodyweight LTD - Tracheostomy on 07/25 - PEG Tube placed 07/31 - Mistry in place - L pigtail chest tube Dispo - Cont to monitor in ICU - recruiting manager: Referral remains open with [facility]. Visit type - Emergency Visit Emergency Visit: Yes ED Registration Date: 07/01/20 Care time: The patient presented to the Emergency Department on the above date and was hospitalized for further evaluation of their emergent condition. - New Patient This patient is new to me today: No - Critical Care Critical Care patient: No ATTENDING PHYSICIAN STATEMENT I saw and evaluated the patient. I reviewed the resident's note and discussed the case with the resident. I agree with the resident's findings and plan as documented. SUBJECTIVE: OBJECTIVE: ASSESSMENT AND PLAN:
[2020-08-08] MEDS: THIAMINE HCL 200 MG/2 ML VIAL IVPB SCH (09:18)
[2020-08-08] MEDS ORDERED: PT OWN MED DRAWER 7, Y5N ONE ×2 (09:20→11:05)
[2020-08-08] MEDS: MULTIVIT-MINERALS ORAL LIQUID NGT SCH (09:21)
[2020-08-08] MEDS: FAMOTIDINE 40 MG/5 ML ORAL SUSPENSION PEG SCH ×2 (11:19→12:05)
--- NOTE | 2020-08-08 11:29 | PN ---
Teaching Attending Note Name of Resident: Masha Eduardo ATTENDING PHYSICIAN STATEMENT I saw and evaluated the patient. I reviewed the resident's note and discussed the case with the resident. I agree with the resident's findings and plan as documented. SUBJECTIVE: Pt seen and examined in the ICU. Vented, awake. AM CXR still with left sided pneumothorax but less. OBJECTIVE: Vital Signs Period Temp Pulse Resp BP Sys/Campbell Pulse Ox Last 24 Hr 98.3 F-99.9 F 83-144 17-27 79-125/58-90 92-100 Intake & Output 08/05/20 08/06/20 08/07/20 08/08/20 23:59 23:59 23:59 23:59 Intake Total 2878.4 2510.6 1824.5 760 Output Total 840 1625 1400 425 Balance 2038.4 885.6 424.5 335 Weight 32.2 kg 32.8 kg 32.3 kg 32.3 kg Gen: vented, cachectic Heart: RRR Lung: scattered rhonchi Abd: soft, nontender, +ascites Ext: no edema CBC, BMP 08/08/20 06:15 08/08/20 06:15 Active Medications Acetaminophen (Ofirmev Injection -) 500 mg IVPB Q6H [facility] Last Admin: 08/08/20 05:10 Dose: 500 mg Documented by: Ascorbic Acid (Vitamin C -) 500 mg PO DAILY [facility] Last Admin: 08/08/20 09:08 Dose: 500 mg Documented by: Collagenase (Santyl -) 1 applic TP DAILY [facility]; Protocol Last Admin: 08/07/20 09:47 Dose: 1 applic Documented by: Dextrose (D50w (Vial) -) 12.5 gm IVPUSH PRN PRN PRN Reason: HYPOGLYCEMIA Last Admin: 07/31/20 06:34 Dose: 12.5 gm Documented by: Famotidine (Pepcid) 20 mg PEG DAILY [facility] Last Admin: 08/08/20 11:19 Dose: 20 mg Documented by: Folic Acid (Folic Acid -) 1 mg NGT DAILY [facility] Last Admin: 08/08/20 09:08 Dose: 1 mg Documented by: Heparin Sodium (Porcine) (Heparin -) 5,000 unit SQ BID [facility] Last Admin: 08/08/20 09:09 Dose: 5,000 unit Documented by: Hydromorphone HCl (Dilaudid Vial -) 1 mg IVPUSH Q3H PRN PRN Reason: PAIN LEVEL 7 - 10 Last Admin: 08/08/20 07:42 Dose: 1 mg Documented by: Lidocaine HCl (Xylocaine 5% Top. Ointment) 1 applic TP DAILY [facility] Last Admin: 08/07/20 09:48 Dose: 1 applic Documented by: Midazolam HCl (Versed -) 1 mg IVPUSH Q6H PRN PRN Reason: ANXIETY Last Admin: 08/06/20 06:12 Dose: 1 mg Documented by: Miscellaneous (Lidoderm Patch Removal) 1 each ONCE@1200 ONE Stop: 08/08/20 12:01 Morphine Sulfate (Morphine Sulfate) 1 mg IVPUSH Q6H PRN PRN Reason: PAIN LEVEL 1-5 Multi-Ingredient Ointment (Zinc Oxide) 1 applic TP DAILY [facility] Last Admin: 08/07/20 09:48 Dose: 1 applic Documented by: Multivitamins/Minerals (Certavite-Antioxidant Liquid) 15 ml NGT DAILY [facility] Last Admin: 08/08/20 09:21 Dose: 15 ml Documented by: Thiamine HCl (Vitamin B1 Injection -) 100 mg IVPB DAILY [facility] Last Admin: 08/08/20 09:18 Dose: 100 mg Documented by: ASSESSMENT AND PLAN: Acute Hypoxic Respiratory Failure s/p Tracheostomy Pneumonia likely Aspiration UTI Sepsis Hyponatremia Small Bowel Obstruction Ascites s/p Peritoneal drain placement Alcohol/Heroin Abuse Anemia/Thrombocytopenia Failure to Thrive Severe Protein Calorie Malnutrition Refeeding Syndrome - continue chest tube to low wall suction - pain control - monitor urine output, creatinine - replete lytes - completed antibiotics - off pressors, maintain MAP >65 - titrate FiO2 to keep SpO2 >90% - spontaneous breathing trials as tolerated - DVT/GI prophylaxis - continue ICU monitoring - for LTAC placement
[2020-08-08] MEDS ORDERED: LIDOCAINE PATCH REMOVAL MC ONE (12:00)
[2020-08-08] MEDS: METHADONE HCL 10 MG TABLET PO SCH (12:04)
[2020-08-08] MEDS: LIDOCAINE HCL 5% TOP OINTMENT 50 GM TUBE TP SCH (12:05)
[2020-08-08] MEDS: ZINC OXIDE 20% TOPICAL OINTMENT 30 GM TUBE TP SCH (12:05)
[2020-08-08] MEDS: COLLAGENASE CLOSTRIDIUM HIST. 30 GRAMS TUBE TP SCH (12:05)
[2020-08-08] MEDS: MORPHINE SULFATE 2 MG/ML VIAL IVPUSH PRN ×2 (12:07→18:25)
--- NOTE | 2020-08-08 12:59 | PN ---
Progress Note, Physician History of Present Illness: Pt seen and examined at bedside. She remains in the ICU. She appears comfortable. - Current Medication List Current Medications: Active Medications Acetaminophen (Ofirmev Injection -) 500 mg IVPB Q6H [facility] Last Admin: 08/08/20 12:09 Dose: 500 mg Documented by: Amino Acids (Prosource No Carb Liquid Pkt) 30 ml PO DAILY [facility] Ascorbic Acid (Vitamin C -) 500 mg PO DAILY [facility] Last Admin: 08/08/20 09:08 Dose: 500 mg Documented by: Collagenase (Santyl -) 1 applic TP DAILY [facility]; Protocol Last Admin: 08/08/20 12:05 Dose: 1 applic Documented by: Dextrose (D50w (Vial) -) 12.5 gm IVPUSH PRN PRN PRN Reason: HYPOGLYCEMIA Last Admin: 07/31/20 06:34 Dose: 12.5 gm Documented by: Famotidine (Pepcid) 20 mg PEG DAILY [facility] Last Admin: 08/08/20 12:05 Dose: 20 mg Documented by: Folic Acid (Folic Acid -) 1 mg NGT DAILY [facility] Last Admin: 08/08/20 09:08 Dose: 1 mg Documented by: Heparin Sodium (Porcine) (Heparin -) 5,000 unit SQ BID [facility] Last Admin: 08/08/20 09:09 Dose: 5,000 unit Documented by: Hydromorphone HCl (Dilaudid Vial -) 1 mg IVPUSH Q3H PRN PRN Reason: PAIN LEVEL 7 - 10 Last Admin: 08/08/20 07:42 Dose: 1 mg Documented by: Lactobacillus Acidophilus (Bacid -) 1 tab PEG DAILY [facility] Lidocaine HCl (Xylocaine 5% Top. Ointment) 1 applic TP DAILY [facility] Last Admin: 08/08/20 12:05 Dose: 1 applic Documented by: Midazolam HCl (Versed -) 1 mg IVPUSH Q6H PRN PRN Reason: ANXIETY Last Admin: 08/06/20 06:12 Dose: 1 mg Documented by: Morphine Sulfate (Morphine Sulfate) 1 mg IVPUSH Q6H PRN PRN Reason: PAIN LEVEL 1-5 Last Admin: 08/08/20 12:07 Dose: 1 mg Documented by: Multi-Ingredient Ointment (Zinc Oxide) 1 applic TP DAILY [facility] Last Admin: 08/08/20 12:05 Dose: 1 applic Documented by: Multivitamins/Minerals (Certavite-Antioxidant Liquid) 15 ml NGT DAILY [facility] Last Admin: 08/08/20 09:21 Dose: 15 ml Documented by: Thiamine HCl (Vitamin B1 Injection -) 100 mg IVPB DAILY [facility] Last Admin: 08/08/20 09:18 Dose: 100 mg Documented by: - Objective Vital Signs: Vital Signs Temperature 98.5 F 08/08/20 10:00 Pulse Rate 106 H 08/08/20 10:00 Respiratory Rate 20 08/08/20 11:53 Blood Pressure 108/75 08/08/20 10:00 O2 Sat by Pulse Oximetry (%) 99 08/08/20 10:00 Constitutional: Yes: Calm Eyes: Yes: Conjunctiva Clear HENT: Yes: Atraumatic Cardiovascular: Yes: S1, S2 Respiratory: Yes: Mechanically Ventilated Gastrointestinal: Yes: Soft, Other (peritoneal drain) Genitourinary: Yes: Uribe Present Musculoskeletal: Yes: Muscle Weakness Edema: No Neurological: Yes: Oriented Labs: CBC, BMP 08/08/20 06:15 08/08/20 06:15 INR, PTT INR 1.52 (0.83-1.09) H 08/08/20 06:15 Fibrinogen 344.0 mg/dL (238-498) 07/21/20 06:00 Problem List - Problems (1) Hypoglycemia Code(s): E16.2 - HYPOGLYCEMIA, UNSPECIFIED (2) Sepsis Code(s): A41.9 - SEPSIS, UNSPECIFIED ORGANISM Qualifiers: Sepsis type: sepsis due to unspecified organism Sepsis acute organ dysfunction status: unspecified Qualified Code(s): A41.9 - Sepsis, unspecified organism (3) Hypoalbuminemia Code(s): E88.09 - OTH DISORDERS OF PLASMA-PROTEIN METABOLISM, NEC (4) Hyponatremia Code(s): E87.1 - HYPO-OSMOLALITY AND HYPONATREMIA Assessment/Plan Current Medications Generic Name Dose Route Start Last Admin Trade Name Freq PRN Reason Stop Dose Admin Acetaminophen 500 mg 08/01/20 10:00 08/08/20 12:09 Ofirmev Injection - IVPB 500 mg Q6H [facility] Administration Amino Acids 30 ml 08/08/20 12:45 Prosource No Carb Liquid Pkt PO DAILY [facility] Ascorbic Acid 500 mg 07/27/20 13:00 08/08/20 09:08 Vitamin C - PO 500 mg DAILY RAUL Administration Collagenase 1 applic 08/05/20 19:30 08/08/20 12:05 Santyl - TP 1 applic DAILY RAUL Administration Protocol Dextrose 12.5 gm 07/08/20 07:08 07/31/20 06:34 D50w (Vial) - IVPUSH 12.5 gm PRN PRN Administration HYPOGLYCEMIA Famotidine 20 mg 08/04/20 10:45 08/08/20 12:05 Pepcid PEG 20 mg DAILY RAUL Administration Folic Acid 1 mg 07/06/20 10:00 08/08/20 09:08 Folic Acid - NGT 1 mg DAILY RAUL Administration Heparin Sodium (Porcine) 5,000 unit 07/20/20 10:00 08/08/20 09:09 Heparin - SQ 5,000 unit BID RAUL Administration Hydromorphone HCl 1 mg 07/26/20 13:39 08/08/20 07:42 Dilaudid Vial - IVPUSH 1 mg Q3H PRN Administration PAIN LEVEL 7 - 10 Lactobacillus Acidophilus 1 tab 08/08/20 12:45 Bacid - PEG DAILY RAUL Lidocaine HCl 1 applic 07/25/20 21:50 08/08/20 12:05 Xylocaine 5% Top. Ointment TP 1 applic DAILY RAUL Administration Midazolam HCl 1 mg 08/05/20 10:54 08/06/20 06:12 Versed - IVPUSH 1 mg Q6H PRN Administration ANXIETY Morphine Sulfate 1 mg 08/08/20 10:43 08/08/20 12:07 Morphine Sulfate IVPUSH 1 mg Q6H PRN Administration PAIN LEVEL 1-5 Multi-Ingredient Ointment 1 applic 07/19/20 13:30 08/08/20 12:05 Zinc Oxide TP 1 applic DAILY RAUL Administration Multivitamins/Minerals 15 ml 07/06/20 11:45 08/08/20 09:21 Certavite-Antioxidant Liquid NGT 15 ml DAILY RAUL Administration Thiamine HCl 100 mg 07/11/20 12:45 08/08/20 09:18 Vitamin B1 Injection - IVPB 100 mg DAILY RAUL Administration Impression 1. azotemia 2. hyponatremia 3. hyperkalemia 4. hypotension 5. sepsis 6. sbo 7. uti 8. liver cirrhosis 9. hypoalbuminemia 10. etoh abuse 11. substance abuse 12. psoriasis 13. acute resp failure 14. malnutrition 15. 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 ascites Plan - potassium stable - cont feed - monitor lytes - monitor output - monitor albumin - chest tube care - vent support
--- NOTE | 2020-08-08 13:45 | PN ---
Progress Note, Physician History of Present Illness: Pt seen and examined in the ICU. Vented, awake. AM CXR still with left sided pneumothorax - Current Medication List Current Medications: Active Medications Acetaminophen (Ofirmev Injection -) 500 mg IVPB Q6H [facility] Last Admin: 08/08/20 12:09 Dose: 500 mg Documented by: Amino Acids (Prosource No Carb Liquid Pkt) 30 ml PO DAILY [facility] Ascorbic Acid (Vitamin C -) 500 mg PO DAILY [facility] Last Admin: 08/08/20 09:08 Dose: 500 mg Documented by: Collagenase (Santyl -) 1 applic TP DAILY [facility]; Protocol Last Admin: 08/08/20 12:05 Dose: 1 applic Documented by: Dextrose (D50w (Vial) -) 12.5 gm IVPUSH PRN PRN PRN Reason: HYPOGLYCEMIA Last Admin: 07/31/20 06:34 Dose: 12.5 gm Documented by: Famotidine (Pepcid) 20 mg PEG DAILY [facility] Last Admin: 08/08/20 12:05 Dose: 20 mg Documented by: Folic Acid (Folic Acid -) 1 mg NGT DAILY [facility] Last Admin: 08/08/20 09:08 Dose: 1 mg Documented by: Heparin Sodium (Porcine) (Heparin -) 5,000 unit SQ BID [facility] Last Admin: 08/08/20 09:09 Dose: 5,000 unit Documented by: Hydromorphone HCl (Dilaudid Vial -) 1 mg IVPUSH Q3H PRN PRN Reason: PAIN LEVEL 7 - 10 Last Admin: 08/08/20 07:42 Dose: 1 mg Documented by: Lactobacillus Acidophilus (Bacid -) 1 tab PEG DAILY [facility] Lidocaine HCl (Xylocaine 5% Top. Ointment) 1 applic TP DAILY [facility] Last Admin: 08/08/20 12:05 Dose: 1 applic Documented by: Midazolam HCl (Versed -) 1 mg IVPUSH Q6H PRN PRN Reason: ANXIETY Last Admin: 08/06/20 06:12 Dose: 1 mg Documented by: Morphine Sulfate (Morphine Sulfate) 1 mg IVPUSH Q6H PRN PRN Reason: PAIN LEVEL 1-5 Last Admin: 08/08/20 12:07 Dose: 1 mg Documented by: Multi-Ingredient Ointment (Zinc Oxide) 1 applic TP DAILY [facility] Last Admin: 08/08/20 12:05 Dose: 1 applic Documented by: Multivitamins/Minerals (Certavite-Antioxidant Liquid) 15 ml NGT DAILY [facility] Last Admin: 08/08/20 09:21 Dose: 15 ml Documented by: Thiamine HCl (Vitamin B1 Injection -) 100 mg IVPB DAILY [facility] Last Admin: 08/08/20 09:18 Dose: 100 mg Documented by: - Objective Vital Signs: Vital Signs Temperature 98.5 F 08/08/20 10:00 Pulse Rate 106 H 08/08/20 10:00 Respiratory Rate 20 08/08/20 11:53 Blood Pressure 108/75 08/08/20 10:00 O2 Sat by Pulse Oximetry (%) 99 08/08/20 10:00 Constitutional: Yes: Other Cardiovascular: Yes: Tachycardia, S1, S2 Respiratory: Yes: Mechanically Ventilated, Other (chest tube) Gastrointestinal: Yes: Normal Bowel Sounds, Soft Musculoskeletal: Yes: WNL Extremities: Yes: WNL Neurological: Yes: Alert Psychiatric: Yes: Alert Labs: CBC, BMP 08/08/20 06:15 08/08/20 06:15 INR, PTT INR 1.52 (0.83-1.09) H 08/08/20 06:15 Fibrinogen 344.0 mg/dL (238-498) 07/21/20 06:00 Assessment/Plan Pneumonia likely Aspiration UTI Sepsis Hyponatremia SBO resolving Alcohol/Heroin Abuse Anemia Failure to Thrive Severe Protein Calorie Malnutrition uti sacral wounds dirrhoea plan continue current mgmt nutrition as per icu vent mgmt close watch cc 38 min
[2020-08-08] MEDS: AMINO ACIDS/PROTEIN HYDROLYS 30 ML LIQUID.PKT PO SCH (16:06)
[2020-08-08] MEDS: LACTOBACILLUS ACIDOPHILUS 1 TABLET PEG SCH (16:06)
--- NOTE | 2020-08-08 23:41 | PN ---
Progress Note, Physician History of Present Illness: ? of opoid withdrawal Methadone dose was given - Current Medication List Current Medications: Active Medications Acetaminophen (Ofirmev Injection -) 500 mg IVPB Q6H [facility] Last Admin: 08/08/20 20:02 Dose: Not Given Documented by: Amino Acids (Prosource No Carb Liquid Pkt) 30 ml PO DAILY [facility] Last Admin: 08/08/20 16:06 Dose: 30 ml Documented by: Ascorbic Acid (Vitamin C -) 500 mg PO DAILY [facility] Last Admin: 08/08/20 09:08 Dose: 500 mg Documented by: Collagenase (Santyl -) 1 applic TP DAILY [facility]; Protocol Last Admin: 08/08/20 12:05 Dose: 1 applic Documented by: Dextrose (D50w (Vial) -) 12.5 gm IVPUSH PRN PRN PRN Reason: HYPOGLYCEMIA Last Admin: 07/31/20 06:34 Dose: 12.5 gm Documented by: Famotidine (Pepcid) 20 mg PEG DAILY [facility] Last Admin: 08/08/20 12:05 Dose: 20 mg Documented by: Folic Acid (Folic Acid -) 1 mg NGT DAILY [facility] Last Admin: 08/08/20 09:08 Dose: 1 mg Documented by: Heparin Sodium (Porcine) (Heparin -) 5,000 unit SQ BID [facility] Last Admin: 08/08/20 22:50 Dose: 5,000 unit Documented by: Hydromorphone HCl (Dilaudid Vial -) 1 mg IVPUSH Q3H PRN PRN Reason: PAIN LEVEL 7 - 10 Last Admin: 08/08/20 07:42 Dose: 1 mg Documented by: Lactobacillus Acidophilus (Bacid -) 1 tab PEG DAILY [facility] Last Admin: 08/08/20 16:06 Dose: 1 tab Documented by: Lidocaine HCl (Xylocaine 5% Top. Ointment) 1 applic TP DAILY [facility] Last Admin: 08/08/20 12:05 Dose: 1 applic Documented by: Midazolam HCl (Versed -) 1 mg IVPUSH Q6H PRN PRN Reason: ANXIETY Last Admin: 08/06/20 06:12 Dose: 1 mg Documented by: Morphine Sulfate (Morphine Sulfate) 1 mg IVPUSH Q6H PRN PRN Reason: PAIN LEVEL 1-5 Last Admin: 08/08/20 18:25 Dose: 1 mg Documented by: Multi-Ingredient Ointment (Zinc Oxide) 1 applic TP DAILY [facility] Last Admin: 08/08/20 12:05 Dose: 1 applic Documented by: Multivitamins/Minerals (Certavite-Antioxidant Liquid) 15 ml NGT DAILY [facility] Last Admin: 08/08/20 09:21 Dose: 15 ml Documented by: Thiamine HCl (Vitamin B1 Injection -) 100 mg IVPB DAILY [facility] Last Admin: 08/08/20 09:18 Dose: 100 mg Documented by: - Objective Vital Signs: Vital Signs Temperature 98.2 F 08/08/20 22:00 Pulse Rate 105 H 08/08/20 22:00 Respiratory Rate 18 08/08/20 22:00 Blood Pressure 107/51 L 08/08/20 22:00 O2 Sat by Pulse Oximetry (%) 100 08/08/20 22:00 Cardiovascular: Yes: Tachycardia Respiratory: Yes: Diminished Gastrointestinal: Yes: WNL, Normal Bowel Sounds, Soft, Other ((+) PEG) Labs: CBC, BMP 08/08/20 06:15 08/08/20 06:15 INR, PTT INR 1.52 (0.83-1.09) H 08/08/20 06:15 Fibrinogen 344.0 mg/dL (238-498) 07/21/20 06:00 Problem List - Problems (1) Respiratory failure Assessment/Plan: Acute on chronic respiratory failure Multifactorial RLL infiltrates ?Asp pneumonia S/P tracheostomy S/P Pneumothorax EITAN Code(s): J96.90 - RESPIRATORY FAILURE, UNSP, UNSP W HYPOXIA OR HYPERCAPNIA (2) Sepsis Assessment/Plan: Pt is now off antibxs Follow WBC Lactic acidosis Cont IVF UTI vs Aspiration pneumonia Blood culture/urine culture negative to date Code(s): A41.9 - SEPSIS, UNSPECIFIED ORGANISM Qualifiers: Sepsis type: sepsis due to unspecified organism Sepsis acute organ dysfunction status: unspecified Qualified Code(s): A41.9 - Sepsis, unspecified organism (3) Anemia Assessment/Plan: Monitor H/H S/p transfusion PRBC's H/H improved Code(s): D64.9 - ANEMIA, UNSPECIFIED (4) At risk for electrolyte imbalance Assessment/Plan: Electrolytes improved Cont to monitor Code(s): Z91.89 - OTH PERSONAL RISK FACTORS, NOT ELSEWHERE CLASSIFIED (5) Liver cirrhosis, alcoholic Assessment/Plan: Cont to monitor Poor prognosis Code(s): K70.30 - ALCOHOLIC CIRRHOSIS OF LIVER WITHOUT ASCITES (6) Hypoalbuminemia Code(s): E88.09 - OTH DISORDERS OF PLASMA-PROTEIN METABOLISM, NEC (7) Substance abuse Assessment/Plan: Psych consult ?Competency Code(s): F19.10 - OTHER PSYCHOACTIVE SUBSTANCE ABUSE, UNCOMPLICATED (8) Cachexia Assessment/Plan: Due to severe protein malnutrition Code(s): R64 - CACHEXIA (9) Severe malnutrition Code(s): E43 - UNSPECIFIED SEVERE PROTEIN-CALORIE MALNUTRITION (10) Sacral ulcer Assessment/Plan: Surgical consult noted Cont wound care No surgical intervention at this time Code(s): L98.429 - NON-PRESSURE CHRONIC ULCER OF BACK WITH UNSPECIFIED SEVERITY (11) SBO (small bowel obstruction) Assessment/Plan: Surgical consult noted Cont NPO Cont IVF Monitor serial abdominal xrays Monitor hypoglycemia CT scan abd showed probable anasacra/ascites Pt now on enteral feeds Code(s): K56.609 - UNSP INTESTNL OBST, UNSP TO PARTIAL VERSUS COMPLETE OBST
[2020-08-09] MEDS: ACETAMINOPHEN 1000 MG/100 ML VIAL (NON FORMULARY) IVPB SCH ×3 (01:02→10:47)
[2020-08-09] MEDS: HYDROmorphone HCl 2 MG/ML VIAL IVPUSH PRN ×4 (01:03→19:35)
[2020-08-09] MEDS: MIDAZOLAM HCL 2 MG/2 ML SINGLE DOSE VIAL IVPUSH PRN (02:50)
[2020-08-09 06:47] LABS: HEMATOCRIT 27.8 % (32.4-45.2); HEMOGLOBIN 9.2 GM/dL (10.7-15.3); MCH 30.5 pg (25.7-33.7); MEAN CELL VOLUME 92.3 fl (80-96); MEAN PLT VOLUME 8.6 fl (7.5-11.1); PLATELET COUNT 184 K/MM3 (134-434); RBC 3.02 M/mm3 (3.60-5.2); RDW 18.9 % (11.6-15.6); WHITE BLOOD COUNT 8.2 K/mm3 (4.0-10.0)
[2020-08-09 07:04] LABS: ALBUMIN 1.4 g/dl (3.4-5.0); ANION GAP 5 MMOL/L (8-16); BLOOD UREA NITROGEN 22.7 mg/dL (7-18); CHLORIDE 107 mmol/L (98-107); CO2 25 mmol/L (21-32); GLUCOSE,RANDOM 98 mg/dL (74-106); MAGNESIUM 1.8 mg/dL (1.8-2.4); PHOSPHOROUS 2.9 mg/dL (2.5-4.9); SGOT/AST 107 U/L (15-37); SGPT/ALT 125 U/L (13-61); SODIUM 137 mmol/L (136-145); TOT PROT 4.6 g/dl (6.4-8.2)
[2020-08-09 07:18] LABS: BILIRUBIN,TOTAL 0.8 mg/dL (0.2-1)
[2020-08-09 07:48] LABS: ALK PHOS > 1000 U/L (45-117); CALCIUM 7.1 mg/dL (8.5-10.1); CREATININE < 0.2 mg/dL (0.55-1.3)
[2020-08-09 09:33] LABS: LIPASE 38 U/L (73-393)
[2020-08-09] MEDS: LACTOBACILLUS ACIDOPHILUS 1 TABLET PEG SCH (10:46)
[2020-08-09] MEDS: MULTIVIT-MINERALS ORAL LIQUID NGT SCH (10:46)
[2020-08-09] MEDS: FOLIC ACID 1 MG TABLET (FP) NGT SCH (10:46)
[2020-08-09] MEDS: HEPARIN NA (PORCINE) 5,000 UNITS/ML 1ML VIAL SQ SCH ×2 (10:47→22:45)
[2020-08-09] MEDS: ASCORBIC ACID 500 MG TABLET (FP) PO SCH (10:48)
[2020-08-09] MEDS: AMINO ACIDS/PROTEIN HYDROLYS 30 ML LIQUID.PKT PO SCH (10:48)
[2020-08-09] MEDS: THIAMINE HCL 200 MG/2 ML VIAL IVPB SCH (10:48)
[2020-08-09] MEDS: LIDOCAINE HCL 5% TOP OINTMENT 50 GM TUBE TP SCH (10:51)
[2020-08-09] MEDS: ZINC OXIDE 20% TOPICAL OINTMENT 30 GM TUBE TP SCH (10:51)
[2020-08-09] MEDS: COLLAGENASE CLOSTRIDIUM HIST. 30 GRAMS TUBE TP SCH (10:52)
[2020-08-09] MEDS: FAMOTIDINE 40 MG/5 ML ORAL SUSPENSION PEG SCH (11:07)
[2020-08-09] MEDS: LIDOCAINE 5% TOPICAL PATCH TP SCH ×2 (11:21→11:48)
[2020-08-09] MEDS ORDERED: IBUPROFEN 800 MG/8 ML IJ IVPB PRN (11:23)
[2020-08-09] MEDS ORDERED: KETOROLAC TROMETHAMINE 15 MG/ML VIAL IVPUSH PRN (11:27)
--- NOTE | 2020-08-09 11:51 | PN ---
Teaching Attending Note Name of Resident: Masha Eduardo ATTENDING PHYSICIAN STATEMENT I saw and evaluated the patient. I reviewed the resident's note and discussed the case with the resident. I agree with the resident's findings and plan as documented. SUBJECTIVE: Patient seen and examined in the ICU. Vented, awake and interactive. Pain is about the same. Methadone stopped yesterday due to transaminitis. Pleural catheter intact without an air leak. No pressors. CXR: Stable Left PTX OBJECTIVE: Intake & Output 08/06/20 08/07/20 08/08/20 08/09/20 23:59 23:59 23:59 23:59 Intake Total 2510.6 1824.5 910 2000 Output Total 1625 1400 1195 100 Balance 885.6 424.5 -285 1900 Weight 72 lb 4.986 oz 71 lb 3.349 oz 71 lb 3.349 oz 73 lb 13.678 oz Last Vital Signs Temp Pulse Resp BP Pulse Ox 98.2 F 94 H 15 108/73 100 08/09/20 10:00 08/09/20 10:00 08/09/20 10:00 08/09/20 10:00 08/09/20 10:00 Active Medications Amino Acids (Prosource No Carb Liquid Pkt) 30 ml PO DAILY [facility] Last Admin: 08/09/20 10:48 Dose: 30 ml Documented by: Ascorbic Acid (Vitamin C -) 500 mg PO DAILY [facility] Last Admin: 08/09/20 10:48 Dose: 500 mg Documented by: Collagenase (Santyl -) 1 applic TP DAILY [facility]; Protocol Last Admin: 08/09/20 10:52 Dose: 1 applic Documented by: Dextrose (D50w (Vial) -) 12.5 gm IVPUSH PRN PRN PRN Reason: HYPOGLYCEMIA Last Admin: 07/31/20 06:34 Dose: 12.5 gm Documented by: Famotidine (Pepcid) 20 mg PEG DAILY [facility] Last Admin: 08/09/20 11:07 Dose: 20 mg Documented by: Fentanyl (Sublimaze Injection -) 50 mcg IVPUSH Q6H PRN PRN Reason: PAIN LEVEL 7-10 Stop: 08/10/20 10:44 Last Admin: 08/09/20 11:24 Dose: 50 mcg Documented by: Folic Acid (Folic Acid -) 1 mg NGT DAILY [facility] Last Admin: 08/09/20 10:46 Dose: 1 mg Documented by: Heparin Sodium (Porcine) (Heparin -) 5,000 unit SQ BID [facility] Last Admin: 08/09/20 10:47 Dose: 5,000 unit Documented by: Hydromorphone HCl (Dilaudid Vial -) 1 mg IVPUSH Q3H PRN PRN Reason: PAIN LEVEL 4 - 6 Last Admin: 08/09/20 06:40 Dose: 1 mg Documented by: Ketorolac Tromethamine (Toradol Injection -) 15 mg IVPUSH Q6H PRN PRN Reason: PAIN LEVEL 1-5 Stop: 08/14/20 11:26 Lactobacillus Acidophilus (Bacid -) 1 tab PEG DAILY [facility] Last Admin: 08/09/20 10:46 Dose: 1 tab Documented by: Lidocaine (Lidoderm Patch -) 1 patch TP DAILY [facility] Last Admin: 08/09/20 11:48 Dose: Not Given Documented by: Lidocaine HCl (Xylocaine 5% Top. Ointment) 1 applic TP DAILY [facility] Last Admin: 08/09/20 10:51 Dose: 1 applic Documented by: Miscellaneous (Lidoderm Patch Removal) 1 each MC DAILY@2200 [facility] Morphine Sulfate (Morphine Sulfate) 1 mg IVPUSH Q6H PRN PRN Reason: PAIN LEVEL 1-3 Last Admin: 08/08/20 18:25 Dose: 1 mg Documented by: Multi-Ingredient Ointment (Zinc Oxide) 1 applic TP DAILY [facility] Last Admin: 08/09/20 10:51 Dose: 1 applic Documented by: Multivitamins/Minerals (Certavite-Antioxidant Liquid) 15 ml NGT DAILY [facility] Last Admin: 08/09/20 10:46 Dose: 15 ml Documented by: Thiamine HCl (Vitamin B1 Injection -) 100 mg IVPB DAILY [facility] Last Admin: 08/09/20 10:48 Dose: 100 mg Documented by: Gen: vented, awake and alert, cachectic Heart: RRR Lung: Vented, scattered rhonchi, Left pleural catheter Abd: soft, (+) BS< (+) GT Ext: no edema Laboratory Results - last 24 hr 08/08/20 08/08/20 08/09/20 16:28 20:50 06:00 WBC 8.2 RBC 3.02 L Hgb 9.2 L Hct 27.8 L MCV 92.3 MCH 30.5 MCHC 33.0 RDW 18.9 H Plt Count 184 MPV 8.6 Sodium Potassium Chloride Carbon Dioxide Anion Gap BUN Creatinine Est GFR (CKD-EPI)AfAm Est GFR (CKD-EPI)NonAf POC Glucometer 95 94 Random Glucose Calcium Phosphorus Magnesium Total Bilirubin AST ALT Alkaline Phosphatase Total Protein Albumin Lipase 08/09/20 08/09/20 06:00 06:15 WBC RBC Hgb Hct MCV MCH MCHC RDW Plt Count MPV Sodium 137 Potassium 5.0 Chloride 107 Carbon Dioxide 25 Anion Gap 5 L BUN 22.7 H Creatinine < 0.2 L Est GFR (CKD-EPI)AfAm 196.46 Est GFR (CKD-EPI)NonAf 169.51 POC Glucometer 95 Random Glucose 98 Calcium 7.1 L Phosphorus 2.9 Magnesium 1.8 Total Bilirubin 0.8 AST 107 H ALT 125 H Alkaline Phosphatase > 1000 H Total Protein 4.6 L Albumin 1.4 L Lipase 38 L ASSESSMENT AND PLAN: Acute Hypoxic Respiratory Failure s/p Tracheostomy Pneumonia likely Aspiration UTI Sepsis Hyponatremia Small Bowel Obstruction Ascites s/p Peritoneal drain placement Alcohol/Heroin Abuse Anemia/Thrombocytopenia Failure to Thrive Severe Protein Calorie Malnutrition Refeeding Syndrome - Maintain pigtail to suction - pain control : Consult Dr Parra - monitor urine output, creatinine - replete lytes - continue antibiotics - Hold spontaneous breathing trials - DVT/GI prophylaxis - continue ICU monitoring LTAC evaluation Dr Babb
--- NOTE | 2020-08-09 13:26 | PN ---
Physical Exam: SUBJECTIVE: Patient seen and examined at bedside. Pt is resting comfortably. She is worried about discontinuing methadone due to hx of withdrawals. OBJECTIVE: Vital Signs Period Temp Pulse Resp BP Sys/Campbell Pulse Ox Last 24 Hr 98 F-98.2 F 81-115 15-27 97-129/51-81 97-100 GENERAL: The patient is awake, alert, oriented HEAD: Normal with no signs of trauma, temporal wasting, tracheostomy EYES: PERRL, extraocular movements intact, sclera anicteric, conjunctiva clear. No ptosis. ENT: Ears normal, nares patent, oropharynx clear without exudates, moist mucous membranes. NECK: Trachea midline, full range of motion, supple. LUNGS: Breath sounds diminished on right basilar, crackles on right base, absent breath sounds on left lung. clear to auscultation bilaterally, no wheezes, no accessory muscle use. HEART: regular rhythm, S1, S2 without murmur, rub or gallop. ABDOMEN: thin, peg tube Soft, nontender, nondistended, normoactive bowel sounds, no guarding, rebound, no hepatosplenomegaly, no masses. EXTREMITIES: 2+ pulses, warm, well-perfused, no edema. NEUROLOGICAL: Cranial nerves II through XII grossly intact, gait not observed. PSYCH: Normal mood, normal affect. SKIN: Warm, dry, normal turgor, sacral ulcer (unstagable), peritoneal ulcer Laboratory Results - last 24 hr 08/08/20 08/08/20 08/09/20 16:28 20:50 06:00 WBC 8.2 RBC 3.02 L Hgb 9.2 L Hct 27.8 L MCV 92.3 MCH 30.5 MCHC 33.0 RDW 18.9 H Plt Count 184 MPV 8.6 Sodium Potassium Chloride Carbon Dioxide Anion Gap BUN Creatinine Est GFR (CKD-EPI)AfAm Est GFR (CKD-EPI)NonAf POC Glucometer 95 94 Random Glucose Calcium Phosphorus Magnesium Total Bilirubin AST ALT Alkaline Phosphatase Total Protein Albumin Lipase 08/09/20 08/09/20 06:00 06:15 WBC RBC Hgb Hct MCV MCH MCHC RDW Plt Count MPV Sodium 137 Potassium 5.0 Chloride 107 Carbon Dioxide 25 Anion Gap 5 L BUN 22.7 H Creatinine < 0.2 L Est GFR (CKD-EPI)AfAm 196.46 Est GFR (CKD-EPI)NonAf 169.51 POC Glucometer 95 Random Glucose 98 Calcium 7.1 L Phosphorus 2.9 Magnesium 1.8 Total Bilirubin 0.8 AST 107 H ALT 125 H Alkaline Phosphatase > 1000 H Total Protein 4.6 L Albumin 1.4 L Lipase 38 L Active Medications Generic Name Dose Route Start Last Admin Trade Name Freq PRN Reason Stop Dose Admin Amino Acids 30 ml 08/08/20 12:45 08/09/20 10:48 Prosource No Carb Liquid Pkt PO 30 ml DAILY [facility] Administration Ascorbic Acid 500 mg 07/27/20 13:00 08/09/20 10:48 Vitamin C - PO 500 mg DAILY [facility] Administration Collagenase 1 applic 08/05/20 19:30 08/09/20 10:52 Santyl - TP 1 applic DAILY [facility] Administration Protocol Dextrose 12.5 gm 07/08/20 07:08 07/31/20 06:34 D50w (Vial) - IVPUSH 12.5 gm PRN PRN Administration HYPOGLYCEMIA Famotidine 20 mg 08/04/20 10:45 08/09/20 11:07 Pepcid PEG 20 mg DAILY [facility] Administration Fentanyl 50 mcg 08/09/20 10:44 08/09/20 11:24 Sublimaze Injection - IVPUSH 08/10/20 10:44 50 mcg Q6H PRN Administration PAIN LEVEL 7-10 Folic Acid 1 mg 07/06/20 10:00 08/09/20 10:46 Folic Acid - NGT 1 mg DAILY [facility] Administration Heparin Sodium (Porcine) 5,000 unit 07/20/20 10:00 08/09/20 10:47 Heparin - SQ 5,000 unit BID [facility] Administration Hydromorphone HCl 1 mg 07/26/20 13:39 08/09/20 06:40 Dilaudid Vial - IVPUSH 1 mg Q3H PRN Administration PAIN LEVEL 4 - 6 Ketorolac Tromethamine 15 mg 08/09/20 11:27 Toradol Injection - IVPUSH 08/14/20 11:26 Q6H PRN PAIN LEVEL 1-5 Lactobacillus Acidophilus 1 tab 08/08/20 12:45 08/09/20 10:46 Bacid - PEG 1 tab DAILY [facility] Administration Lidocaine 1 patch 08/09/20 11:30 08/09/20 11:48 Lidoderm Patch - TP Not Given DAILY [facility] Lidocaine HCl 1 applic 07/25/20 21:50 08/09/20 10:51 Xylocaine 5% Top. Ointment TP 1 applic DAILY [facility] Administration Miscellaneous 1 each 08/09/20 23:00 Lidoderm Patch Removal MC DAILY@2200 [facility] Morphine Sulfate 1 mg 08/08/20 10:43 08/08/20 18:25 Morphine Sulfate IVPUSH 1 mg Q6H PRN Administration PAIN LEVEL 1-3 Multi-Ingredient Ointment 1 applic 07/19/20 13:30 08/09/20 10:51 Zinc Oxide TP 1 applic DAILY [facility] Administration Multivitamins/Minerals 15 ml 07/06/20 11:45 08/09/20 10:46 Certavite-Antioxidant Liquid NGT 15 ml DAILY [facility] Administration Thiamine HCl 100 mg 07/11/20 12:45 08/09/20 10:48 Vitamin B1 Injection - IVPB 100 mg DAILY [facility] Administration ASSESSMENT/PLAN: 35 yo female with PMH of malnutrition 2/2 bulimia and polysubstance use disorder, cirrhosis, & heroin abuse, in ICU with sepsis and acute hypoxic respiratory failure, now s/p trach, sp abdominal peritoneal drain, s/p peg placement. Neuro - Alert, responsive, able to communicate with writing and mouthing words - Dilaudid 1g, q3h - Morphine 1mg, q6h - Fentanyl 50mcg, q6h - Toradol 15mg, q6h - Lidoderm Patch - Discontinue Methadone - Dr Hinkle consulted for pain management CV - Baseline MAP 70 - discontinued pressors Respiratory - Acute Hypoxic Respiratory Failure 2/2 Aspiration Pneumonia -Resolved - Tracheostomy on 07/25 - maintain SpO2 >90% - downsize trach tube at LTAC - L Pneumothorax - stable pneumothorax - s/p chest tube and subsequent re-inflation - 08/08, on suction, air leak present GI - Refeeding Syndrome - Ascites, 2/2 to hypoalbunemia/cirrhosis - Peritoneal drain placed on 07/27 - SAAG score < 1.1 (less likely from portal HTN) - Transaminitis - Transaminase 107-121 - Elevated Alk hos - RUQ US- identified stones without GB inflammation - discontinue Acetaminophen - discontinue Methadone - consulted GI (Lentin) - PEG Tube placed 07/31 - Dietary consulted for tube feeds - Jevity w/ Prosource to reduce volume and increase calories - mistry in place - UTI, s/p abx - 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 Chavez) ID - Resolved septic shock - S/p Vanc/Zosyn/Meropenem/Tigecycline (end 08/07) - ID following (Dr. Martines) Heme - Normocytic Anemia (Hb 9.2), downtrending - Thrombocytopenia (Plt 184) - Chronically Elevated PT/INR & PTT - Check coags daily Psych - Hx of Eating Disorder - Hx of Alcohol/Heroin Abuse - Hx of Anxiety - Versed 10, BID q6 Derm - Multiple Sacral Ulcers (stage 4) - Daily wound care, air mattress, w/ frequent turns - Off-loading to all bony areas (heels, ankles, hips and tailbone) with Allevyn/Optifoam FEN - Hyperkalemia resolved, discontinue banana flakes - Hypoalbuminemia - 12/04 to severe malnutrition - Perative Tube feeds, titrate up to 45 - check and replete electrolytes as needed Prophylaxis - DVT ppx: Heparin 5000u SQ Q12H 12/04 low bodyweight LTD - Tracheostomy on 07/25 - PEG Tube placed 07/31 - Mistry in place - L pigtail chest tube Dispo - Cont to monitor in ICU - food service manager: Referral remains open with [facility]. Visit type - Emergency Visit Emergency Visit: Yes ED Registration Date: 07/01/20 Care time: The patient presented to the Emergency Department on the above date and was hospitalized for further evaluation of their emergent condition. - New Patient This patient is new to me today: No - Critical Care Critical Care patient: No ATTENDING PHYSICIAN STATEMENT I saw and evaluated the patient. I reviewed the resident's note and discussed the case with the resident. I agree with the resident's findings and plan as documented. SUBJECTIVE: OBJECTIVE: ASSESSMENT AND PLAN:
--- NOTE | 2020-08-09 14:30 | PN ---
Progress Note, Physician - Current Medication List Current Medications: Active Medications Amino Acids (Prosource No Carb Liquid Pkt) 30 ml PO DAILY [facility] Last Admin: 08/09/20 10:48 Dose: 30 ml Documented by: Ascorbic Acid (Vitamin C -) 500 mg PO DAILY [facility] Last Admin: 08/09/20 10:48 Dose: 500 mg Documented by: Collagenase (Santyl -) 1 applic TP DAILY [facility]; Protocol Last Admin: 08/09/20 10:52 Dose: 1 applic Documented by: Dextrose (D50w (Vial) -) 12.5 gm IVPUSH PRN PRN PRN Reason: HYPOGLYCEMIA Last Admin: 07/31/20 06:34 Dose: 12.5 gm Documented by: Famotidine (Pepcid) 20 mg PEG DAILY [facility] Last Admin: 08/09/20 11:07 Dose: 20 mg Documented by: Fentanyl (Sublimaze Injection -) 50 mcg IVPUSH Q6H PRN PRN Reason: PAIN LEVEL 7-10 Stop: 08/10/20 10:44 Last Admin: 08/09/20 11:24 Dose: 50 mcg Documented by: Folic Acid (Folic Acid -) 1 mg NGT DAILY [facility] Last Admin: 08/09/20 10:46 Dose: 1 mg Documented by: Heparin Sodium (Porcine) (Heparin -) 5,000 unit SQ BID [facility] Last Admin: 08/09/20 10:47 Dose: 5,000 unit Documented by: Hydromorphone HCl (Dilaudid Vial -) 1 mg IVPUSH Q3H PRN PRN Reason: PAIN LEVEL 4 - 6 Last Admin: 08/09/20 14:17 Dose: 1 mg Documented by: Ketorolac Tromethamine (Toradol Injection -) 15 mg IVPUSH Q6H PRN PRN Reason: PAIN LEVEL 1-5 Stop: 08/14/20 11:26 Lactobacillus Acidophilus (Bacid -) 1 tab PEG DAILY [facility] Last Admin: 08/09/20 10:46 Dose: 1 tab Documented by: Lidocaine (Lidoderm Patch -) 1 patch TP DAILY [facility] Last Admin: 08/09/20 11:48 Dose: Not Given Documented by: Lidocaine HCl (Xylocaine 5% Top. Ointment) 1 applic TP DAILY [facility] Last Admin: 08/09/20 10:51 Dose: 1 applic Documented by: Miscellaneous (Lidoderm Patch Removal) 1 each MC DAILY@2200 [facility] Morphine Sulfate (Morphine Sulfate) 1 mg IVPUSH Q6H PRN PRN Reason: PAIN LEVEL 1-3 Last Admin: 08/08/20 18:25 Dose: 1 mg Documented by: Multi-Ingredient Ointment (Zinc Oxide) 1 applic TP DAILY [facility] Last Admin: 08/09/20 10:51 Dose: 1 applic Documented by: Multivitamins/Minerals (Certavite-Antioxidant Liquid) 15 ml NGT DAILY [facility] Last Admin: 08/09/20 10:46 Dose: 15 ml Documented by: Thiamine HCl (Vitamin B1 Injection -) 100 mg IVPB DAILY [facility] Last Admin: 08/09/20 10:48 Dose: 100 mg Documented by: - Objective Vital Signs: Vital Signs Temperature 98.2 F 08/09/20 10:00 Pulse Rate 115 H 08/09/20 12:00 Respiratory Rate 21 H 08/09/20 12:00 Blood Pressure 101/77 08/09/20 12:00 O2 Sat by Pulse Oximetry (%) 100 08/09/20 12:00 Labs: CBC, BMP 08/09/20 06:00 08/09/20 06:00 INR, PTT INR 1.52 (0.83-1.09) H 08/08/20 06:15 Fibrinogen 344.0 mg/dL (238-498) 07/21/20 06:00
--- NOTE | 2020-08-09 15:17 | PN ---
Progress Note, Physician History of Present Illness: Pt seen and examined at bedside. She is awake and remains in ICU. - Current Medication List Current Medications: Active Medications Amino Acids (Prosource No Carb Liquid Pkt) 30 ml PO DAILY [facility] Last Admin: 08/09/20 10:48 Dose: 30 ml Documented by: Ascorbic Acid (Vitamin C -) 500 mg PO DAILY [facility] Last Admin: 08/09/20 10:48 Dose: 500 mg Documented by: Collagenase (Santyl -) 1 applic TP DAILY [facility]; Protocol Last Admin: 08/09/20 10:52 Dose: 1 applic Documented by: Dextrose (D50w (Vial) -) 12.5 gm IVPUSH PRN PRN PRN Reason: HYPOGLYCEMIA Last Admin: 07/31/20 06:34 Dose: 12.5 gm Documented by: Famotidine (Pepcid) 20 mg PEG DAILY [facility] Last Admin: 08/09/20 11:07 Dose: 20 mg Documented by: Fentanyl (Sublimaze Injection -) 50 mcg IVPUSH Q6H PRN PRN Reason: PAIN LEVEL 7-10 Stop: 08/10/20 10:44 Last Admin: 08/09/20 11:24 Dose: 50 mcg Documented by: Folic Acid (Folic Acid -) 1 mg NGT DAILY [facility] Last Admin: 08/09/20 10:46 Dose: 1 mg Documented by: Heparin Sodium (Porcine) (Heparin -) 5,000 unit SQ BID [facility] Last Admin: 08/09/20 10:47 Dose: 5,000 unit Documented by: Hydromorphone HCl (Dilaudid Vial -) 1 mg IVPUSH Q3H PRN PRN Reason: PAIN LEVEL 4 - 6 Last Admin: 08/09/20 14:17 Dose: 1 mg Documented by: Ketorolac Tromethamine (Toradol Injection -) 15 mg IVPUSH Q6H PRN PRN Reason: PAIN LEVEL 1-5 Stop: 08/14/20 11:26 Lactobacillus Acidophilus (Bacid -) 1 tab PEG DAILY [facility] Last Admin: 08/09/20 10:46 Dose: 1 tab Documented by: Lidocaine (Lidoderm Patch -) 1 patch TP DAILY [facility] Last Admin: 08/09/20 11:48 Dose: Not Given Documented by: Lidocaine HCl (Xylocaine 5% Top. Ointment) 1 applic TP DAILY [facility] Last Admin: 08/09/20 10:51 Dose: 1 applic Documented by: Miscellaneous (Lidoderm Patch Removal) 1 each MC DAILY@2200 [facility] Morphine Sulfate (Morphine Sulfate) 1 mg IVPUSH Q6H PRN PRN Reason: PAIN LEVEL 1-3 Last Admin: 08/08/20 18:25 Dose: 1 mg Documented by: Multi-Ingredient Ointment (Zinc Oxide) 1 applic TP DAILY [facility] Last Admin: 08/09/20 10:51 Dose: 1 applic Documented by: Multivitamins/Minerals (Certavite-Antioxidant Liquid) 15 ml NGT DAILY [facility] Last Admin: 08/09/20 10:46 Dose: 15 ml Documented by: Thiamine HCl (Vitamin B1 Injection -) 100 mg IVPB DAILY [facility] Last Admin: 08/09/20 10:48 Dose: 100 mg Documented by: - Objective Vital Signs: Vital Signs Temperature 98.2 F 08/09/20 10:00 Pulse Rate 115 H 08/09/20 12:00 Respiratory Rate 21 H 08/09/20 12:00 Blood Pressure 101/77 08/09/20 12:00 O2 Sat by Pulse Oximetry (%) 100 08/09/20 12:00 Constitutional: Yes: Calm Eyes: Yes: Conjunctiva Clear HENT: Yes: Atraumatic Cardiovascular: Yes: S1, S2 Respiratory: Yes: Mechanically Ventilated Gastrointestinal: Yes: Normal Bowel Sounds, Soft Genitourinary: Yes: Uribe Present Musculoskeletal: Yes: Muscle Weakness Edema: No Neurological: Yes: Oriented Labs: CBC, BMP 08/09/20 06:00 08/09/20 06:00 INR, PTT INR 1.52 (0.83-1.09) H 08/08/20 06:15 Fibrinogen 344.0 mg/dL (238-498) 07/21/20 06:00 Problem List - Problems (1) Hypoglycemia Code(s): E16.2 - HYPOGLYCEMIA, UNSPECIFIED (2) Sepsis Code(s): A41.9 - SEPSIS, UNSPECIFIED ORGANISM Qualifiers: Sepsis type: sepsis due to unspecified organism Sepsis acute organ dysfunction status: unspecified Qualified Code(s): A41.9 - Sepsis, unspecified organism (3) Hypoalbuminemia Code(s): E88.09 - OTH DISORDERS OF PLASMA-PROTEIN METABOLISM, NEC (4) Hyponatremia Code(s): E87.1 - HYPO-OSMOLALITY AND HYPONATREMIA Assessment/Plan Current Medications Generic Name Dose Route Start Last Admin Trade Name Freq PRN Reason Stop Dose Admin Amino Acids 30 ml 08/08/20 12:45 08/09/20 10:48 Prosource No Carb Liquid Pkt PO 30 ml DAILY [facility] Administration Ascorbic Acid 500 mg 07/27/20 13:00 08/09/20 10:48 Vitamin C - PO 500 mg DAILY [facility] Administration Collagenase 1 applic 08/05/20 19:30 08/09/20 10:52 Santyl - TP 1 applic DAILY [facility] Administration Protocol Dextrose 12.5 gm 07/08/20 07:08 07/31/20 06:34 D50w (Vial) - IVPUSH 12.5 gm PRN PRN Administration HYPOGLYCEMIA Famotidine 20 mg 08/04/20 10:45 08/09/20 11:07 Pepcid PEG 20 mg DAILY [facility] Administration Fentanyl 50 mcg 08/09/20 10:44 08/09/20 11:24 Sublimaze Injection - IVPUSH 08/10/20 10:44 50 mcg Q6H PRN Administration PAIN LEVEL 7-10 Folic Acid 1 mg 07/06/20 10:00 08/09/20 10:46 Folic Acid - NGT 1 mg DAILY [facility] Administration Heparin Sodium (Porcine) 5,000 unit 07/20/20 10:00 08/09/20 10:47 Heparin - SQ 5,000 unit BID [facility] Administration Hydromorphone HCl 1 mg 07/26/20 13:39 08/09/20 14:17 Dilaudid Vial - IVPUSH 1 mg Q3H PRN Administration PAIN LEVEL 4 - 6 Ketorolac Tromethamine 15 mg 08/09/20 11:27 Toradol Injection - IVPUSH 08/14/20 11:26 Q6H PRN PAIN LEVEL 1-5 Lactobacillus Acidophilus 1 tab 08/08/20 12:45 08/09/20 10:46 Bacid - PEG 1 tab DAILY [facility] Administration Lidocaine 1 patch 08/09/20 11:30 08/09/20 11:48 Lidoderm Patch - TP Not Given DAILY [facility] Lidocaine HCl 1 applic 07/25/20 21:50 08/09/20 10:51 Xylocaine 5% Top. Ointment TP 1 applic DAILY [facility] Administration Miscellaneous 1 each 08/09/20 23:00 Lidoderm Patch Removal MC DAILY@2200 [facility] Morphine Sulfate 1 mg 08/08/20 10:43 08/08/20 18:25 Morphine Sulfate IVPUSH 1 mg Q6H PRN Administration PAIN LEVEL 1-3 Multi-Ingredient Ointment 1 applic 07/19/20 13:30 08/09/20 10:51 Zinc Oxide TP 1 applic DAILY [facility] Administration Multivitamins/Minerals 15 ml 07/06/20 11:45 08/09/20 10:46 Certavite-Antioxidant Liquid NGT 15 ml DAILY [facility] Administration Thiamine HCl 100 mg 07/11/20 12:45 08/09/20 10:48 Vitamin B1 Injection - IVPB 100 mg DAILY [facility] Administration Impression 1. azotemia 2. hyponatremia 3. hyperkalemia 4. hypotension 5. sepsis 6. sbo 7. uti 8. liver cirrhosis 9. hypoalbuminemia 10. etoh abuse 11. substance abuse 12. psoriasis 13. acute resp failure 14. malnutrition 15. 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 ascites Plan - cont feeds - repeat labs in am - monitor potassium as it is trending up - vent support - monitor output
--- NOTE | 2020-08-09 21:10 | PN ---
Progress Note, Physician - Current Medication List Current Medications: Active Medications Amino Acids (Prosource No Carb Liquid Pkt) 30 ml PO DAILY [facility] Last Admin: 08/09/20 10:48 Dose: 30 ml Documented by: Ascorbic Acid (Vitamin C -) 500 mg PO DAILY [facility] Last Admin: 08/09/20 10:48 Dose: 500 mg Documented by: Collagenase (Santyl -) 1 applic TP DAILY [facility]; Protocol Last Admin: 08/09/20 10:52 Dose: 1 applic Documented by: Dextrose (D50w (Vial) -) 12.5 gm IVPUSH PRN PRN PRN Reason: HYPOGLYCEMIA Last Admin: 07/31/20 06:34 Dose: 12.5 gm Documented by: Famotidine (Pepcid) 20 mg PEG DAILY [facility] Last Admin: 08/09/20 11:07 Dose: 20 mg Documented by: Fentanyl (Sublimaze Injection -) 50 mcg IVPUSH Q6H PRN PRN Reason: PAIN LEVEL 7-10 Stop: 08/10/20 10:44 Last Admin: 08/09/20 11:24 Dose: 50 mcg Documented by: Folic Acid (Folic Acid -) 1 mg NGT DAILY [facility] Last Admin: 08/09/20 10:46 Dose: 1 mg Documented by: Heparin Sodium (Porcine) (Heparin -) 5,000 unit SQ BID [facility] Last Admin: 08/09/20 10:47 Dose: 5,000 unit Documented by: Hydromorphone HCl (Dilaudid Vial -) 1 mg IVPUSH Q3H PRN PRN Reason: PAIN LEVEL 4 - 6 Last Admin: 08/09/20 19:35 Dose: 1 mg Documented by: Ketorolac Tromethamine (Toradol Injection -) 15 mg IVPUSH Q6H PRN PRN Reason: PAIN LEVEL 1-5 Stop: 08/14/20 11:26 Lactobacillus Acidophilus (Bacid -) 1 tab PEG DAILY [facility] Last Admin: 08/09/20 10:46 Dose: 1 tab Documented by: Lidocaine (Lidoderm Patch -) 1 patch TP DAILY [facility] Last Admin: 08/09/20 11:48 Dose: Not Given Documented by: Lidocaine HCl (Xylocaine 5% Top. Ointment) 1 applic TP DAILY [facility] Last Admin: 08/09/20 10:51 Dose: 1 applic Documented by: Miscellaneous (Lidoderm Patch Removal) 1 each MC DAILY@2200 [facility] Morphine Sulfate (Morphine Sulfate) 1 mg IVPUSH Q6H PRN PRN Reason: PAIN LEVEL 1-3 Last Admin: 08/08/20 18:25 Dose: 1 mg Documented by: Multi-Ingredient Ointment (Zinc Oxide) 1 applic TP DAILY [facility] Last Admin: 08/09/20 10:51 Dose: 1 applic Documented by: Multivitamins/Minerals (Certavite-Antioxidant Liquid) 15 ml NGT DAILY [facility] Last Admin: 08/09/20 10:46 Dose: 15 ml Documented by: Thiamine HCl (Vitamin B1 Injection -) 100 mg IVPB DAILY [facility] Last Admin: 08/09/20 10:48 Dose: 100 mg Documented by: - Objective Vital Signs: Vital Signs Temperature 98.9 F 08/09/20 18:00 Pulse Rate 116 H 08/09/20 20:05 Respiratory Rate 16 08/09/20 20:05 Blood Pressure 109/78 08/09/20 18:00 O2 Sat by Pulse Oximetry (%) 98 08/09/20 20:05 Labs: CBC, BMP 08/09/20 06:00 08/09/20 06:00 INR, PTT INR 1.52 (0.83-1.09) H 08/08/20 06:15 Fibrinogen 344.0 mg/dL (238-498) 07/21/20 06:00 Problem List - Problems (1) Respiratory failure Code(s): J96.90 - RESPIRATORY FAILURE, UNSP, UNSP W HYPOXIA OR HYPERCAPNIA (2) Sepsis Code(s): A41.9 - SEPSIS, UNSPECIFIED ORGANISM Qualifiers: Sepsis type: sepsis due to unspecified organism Sepsis acute organ dysfunction status: unspecified Qualified Code(s): A41.9 - Sepsis, unspecified organism (3) Anemia Code(s): D64.9 - ANEMIA, UNSPECIFIED (4) At risk for electrolyte imbalance Code(s): Z91.89 - OTH PERSONAL RISK FACTORS, NOT ELSEWHERE CLASSIFIED (5) Liver cirrhosis, alcoholic Code(s): K70.30 - ALCOHOLIC CIRRHOSIS OF LIVER WITHOUT ASCITES (6) Hypoalbuminemia Code(s): E88.09 - OTH DISORDERS OF PLASMA-PROTEIN METABOLISM, NEC (7) Substance abuse Code(s): F19.10 - OTHER PSYCHOACTIVE SUBSTANCE ABUSE, UNCOMPLICATED (8) Cachexia Code(s): R64 - CACHEXIA (9) Severe malnutrition Code(s): E43 - UNSPECIFIED SEVERE PROTEIN-CALORIE MALNUTRITION (10) Sacral ulcer Code(s): L98.429 - NON-PRESSURE CHRONIC ULCER OF BACK WITH UNSPECIFIED SEVERITY (11) SBO (small bowel obstruction) Code(s): K56.609 - UNSP INTESTNL OBST, UNSP TO PARTIAL VERSUS COMPLETE OBST
[2020-08-10] MEDS: LIDOCAINE PATCH REMOVAL MC SCH ×2 (00:18→21:37)
[2020-08-10] MEDS: MORPHINE SULFATE 2 MG/ML VIAL IVPUSH PRN ×2 (00:19→10:13)
[2020-08-10] MEDS: HYDROmorphone HCl 2 MG/ML VIAL IVPUSH PRN ×3 (02:15→21:28)
[2020-08-10] MEDS ORDERED: MIDAZOLAM HCL 2 MG/2 ML SINGLE DOSE VIAL IVPUSH ONE (04:11)
[2020-08-10] MEDS ORDERED: DEXTROSE 50%-WATER - 25 GM/50 ML VIAL IVPUSH ONE (04:58)
[2020-08-10] MEDS ORDERED: DEXTROSE 50%-WATER - 25 GM/50 ML VIAL ONE (05:08)
[2020-08-10 07:39] LABS: HEMATOCRIT 26.4 % (32.4-45.2); HEMOGLOBIN 8.7 GM/dL (10.7-15.3); MCH 30.3 pg (25.7-33.7); MCHC 32.8 g/dl (32.0-36.0); MEAN CELL VOLUME 92.4 fl (80-96); MEAN PLT VOLUME 8.5 fl (7.5-11.1); PLATELET COUNT 236 K/MM3 (134-434); RBC 2.85 M/mm3 (3.60-5.2); RDW 18.6 % (11.6-15.6); WHITE BLOOD COUNT 13.1 K/mm3 (4.0-10.0)
[2020-08-10 07:40] LABS: ALBUMIN 1.3 g/dl (3.4-5.0); BILIRUBIN,TOTAL 0.8 mg/dL (0.2-1); CHLORIDE 106 mmol/L (98-107); GLUCOSE,RANDOM 145 mg/dL (74-106); POTASSIUM 3.8 mmol/L (3.5-5.1); SODIUM 139 mmol/L (136-145)
[2020-08-10 07:54] LABS: ANION GAP 7 MMOL/L (8-16); CO2 25 mmol/L (21-32); CREATININE < 0.2 mg/dL (0.55-1.3); MAGNESIUM 1.5 mg/dL (1.8-2.4); SGOT/AST 109 U/L (15-37); SGPT/ALT 147 U/L (13-61); TOT PROT 4.2 g/dl (6.4-8.2)
[2020-08-10 07:58] LABS: ALK PHOS 973 U/L (45-117)
[2020-08-10 08:24] LABS: CALCIUM 6.9 mg/dL (8.5-10.1)
[2020-08-10] MEDS ORDERED: MAGNESIUM 1GM/D5W - 1 GM/100 ML IVPB IVPB ONE (08:45)
[2020-08-10] MEDS: MULTIVIT-MINERALS ORAL LIQUID NGT SCH (10:07)
[2020-08-10] MEDS: AMINO ACIDS/PROTEIN HYDROLYS 30 ML LIQUID.PKT PO SCH (10:07)
[2020-08-10] MEDS: LIDOCAINE 5% TOPICAL PATCH TP SCH (10:08)
[2020-08-10] MEDS: FOLIC ACID 1 MG TABLET (FP) NGT SCH (10:08)
[2020-08-10] MEDS: HEPARIN NA (PORCINE) 5,000 UNITS/ML 1ML VIAL SQ SCH ×2 (10:08→21:29)
[2020-08-10] MEDS: FAMOTIDINE 40 MG/5 ML ORAL SUSPENSION PEG SCH (10:09)
[2020-08-10] MEDS: THIAMINE HCL 200 MG/2 ML VIAL IVPB SCH (10:10)
[2020-08-10] MEDS: ASCORBIC ACID 500 MG TABLET (FP) PO SCH (10:13)
[2020-08-10] MEDS ORDERED: KETOROLAC TROMETHAMINE 15 MG/ML VIAL IVPUSH PRN (10:36)
[2020-08-10] MEDS ORDERED: MIDAZOLAM HCL 2 MG/2 ML SINGLE DOSE VIAL IVPUSH PRN (10:38)
[2020-08-10] MEDS: COLLAGENASE CLOSTRIDIUM HIST. 30 GRAMS TUBE TP SCH (10:45)
[2020-08-10] MEDS: ZINC OXIDE 20% TOPICAL OINTMENT 30 GM TUBE TP SCH (10:45)
[2020-08-10] MEDS: LACTOBACILLUS ACIDOPHILUS 1 TABLET PEG SCH (10:52)
--- NOTE | 2020-08-10 11:18 | PN ---
Physical Exam: SUBJECTIVE: Patient seen and examined at bedside. No acute events overnight. Pt complains of trouble sleeping at night. Pt complains of dry mouth and wants ice chips. OBJECTIVE: Vital Signs Period Temp Pulse Resp BP Sys/Campbell Pulse Ox Last 24 Hr 98.0 F-98.9 F 109-133 15-25 95-112/72-83 96-100 GENERAL: The patient is awake, alert, oriented HEAD: Normal with no signs of trauma, temporal wasting, tracheostomy EYES: PERRL, extraocular movements intact, sclera anicteric, conjunctiva clear. No ptosis. ENT: Ears normal, nares patent, oropharynx clear without exudates, moist mucous membranes. NECK: Trachea midline, full range of motion, supple. LUNGS: Breath sounds diminished on right basilar, crackles on right base, absent breath sounds on left lung. clear to auscultation bilaterally, no wheezes, no accessory muscle use. HEART: regular rhythm, S1, S2 without murmur, rub or gallop. ABDOMEN: thin, peg tube Soft, nontender, nondistended, normoactive bowel sounds, no guarding, rebound, no hepatosplenomegaly, no masses. EXTREMITIES: 2+ pulses, warm, well-perfused, no edema. NEUROLOGICAL: Cranial nerves II through XII grossly intact, gait not observed. PSYCH: Normal mood, normal affect. SKIN: Warm, dry, normal turgor, sacral ulcer (unstagable), peritoneal ulcer Laboratory Results - last 24 hr 08/09/20 08/10/20 08/10/20 17:28 04:51 05:27 WBC 13.1 H RBC 2.85 L Hgb 8.7 L Hct 26.4 L MCV 92.4 MCH 30.3 MCHC 32.8 RDW 18.6 H Plt Count 236 D MPV 8.5 Sodium Potassium Chloride Carbon Dioxide Anion Gap BUN Creatinine Est GFR (CKD-EPI)AfAm Est GFR (CKD-EPI)NonAf POC Glucometer 111 67 Random Glucose Calcium Phosphorus Magnesium Total Bilirubin AST ALT Alkaline Phosphatase Total Protein Albumin 08/10/20 05:27 WBC RBC Hgb Hct MCV MCH MCHC RDW Plt Count MPV Sodium 139 Potassium 3.8 Chloride 106 Carbon Dioxide 25 Anion Gap 7 L BUN 20.0 H Creatinine < 0.2 L Est GFR (CKD-EPI)AfAm 196.46 Est GFR (CKD-EPI)NonAf 169.51 POC Glucometer Random Glucose 145 H Calcium 6.9 L* Phosphorus 3.0 Magnesium 1.5 L Total Bilirubin 0.8 AST 109 H ALT 147 H Alkaline Phosphatase 973 H Total Protein 4.2 L Albumin 1.3 L Active Medications Generic Name Dose Route Start Last Admin Trade Name Freq PRN Reason Stop Dose Admin Amino Acids 30 ml 08/08/20 12:45 08/10/20 10:07 Prosource No Carb Liquid Pkt PO 30 ml DAILY [facility] Administration Ascorbic Acid 500 mg 07/27/20 13:00 08/10/20 10:13 Vitamin C - PO 500 mg DAILY [facility] Administration Collagenase 1 applic 08/05/20 19:30 08/09/20 10:52 Santyl - TP 1 applic DAILY [facility] Administration Protocol Dextrose 12.5 gm 07/08/20 07:08 07/31/20 06:34 D50w (Vial) - IVPUSH 12.5 gm PRN PRN Administration HYPOGLYCEMIA Diazepam 2 mg 08/10/20 10:41 Valium - PO 2100 PRN INSOMNIA Famotidine 20 mg 08/04/20 10:45 08/10/20 10:09 Pepcid PEG 20 mg DAILY [facility] Administration Folic Acid 1 mg 07/06/20 10:00 08/10/20 10:08 Folic Acid - NGT 1 mg DAILY [facility] Administration Heparin Sodium (Porcine) 5,000 unit 07/20/20 10:00 08/10/20 10:08 Heparin - SQ 5,000 unit BID [facility] Administration Hydromorphone HCl 1 mg 07/26/20 13:39 08/10/20 02:15 Dilaudid Vial - IVPUSH 1 mg Q3H PRN Administration PAIN LEVEL 4 - 6 Ketorolac Tromethamine 15 mg 08/10/20 10:36 Toradol Injection - IVPUSH 08/14/20 11:26 Q12H PRN PAIN LEVEL 1-5 Lactobacillus Acidophilus 1 tab 08/08/20 12:45 08/10/20 10:52 Bacid - PEG 1 tab DAILY [facility] Administration Lidocaine 1 patch 08/09/20 11:30 08/10/20 10:08 Lidoderm Patch - TP 1 patch DAILY [facility] Administration Lidocaine HCl 1 applic 07/25/20 21:50 08/09/20 10:51 Xylocaine 5% Top. Ointment TP 1 applic DAILY [facility] Administration Miscellaneous 1 each 08/09/20 23:00 08/10/20 00:18 Lidoderm Patch Removal MC 1 each DAILY@2200 [facility] Administration Morphine Sulfate 1 mg 08/08/20 10:43 08/10/20 10:13 Morphine Sulfate IVPUSH 1 mg Q6H PRN Administration PAIN LEVEL 1-3 Multi-Ingredient Ointment 1 applic 07/19/20 13:30 08/09/20 10:51 Zinc Oxide TP 1 applic DAILY [facility] Administration Multivitamins/Minerals 15 ml 07/06/20 11:45 08/10/20 10:07 Certavite-Antioxidant Liquid NGT 15 ml DAILY [facility] Administration Thiamine HCl 100 mg 07/11/20 12:45 08/10/20 10:10 Vitamin B1 Injection - IVPB 100 mg DAILY [facility] Administration ASSESSMENT/PLAN: 35 yo female with PMH of malnutrition 2/2 bulimia and polysubstance use disorder, cirrhosis, & heroin abuse, in ICU with sepsis and acute hypoxic respiratory failure, now s/p trach, sp abdominal peritoneal drain, s/p peg placement. Neuro - Alert, responsive, able to communicate with writing and mouthing words - Dilaudid 1g, q3h - Morphine 1mg, q6h - Fentanyl 50mcg, q6h - Toradol 15mg, q12 - Lidoderm Patch - Dr Hinkle consulted for pain management CV - Baseline MAP 80s - discontinued pressors Respiratory - Acute Hypoxic Respiratory Failure 2/2 Aspiration Pneumonia -Resolved - Tracheostomy on 07/25 - maintain SpO2 >90% - downsize trach tube at LTAC - L Pneumothorax - stable pneumothorax - s/p chest tube and subsequent re-inflation - 08/08, on suction, air leak present - 08/10, increased suction to 30 GI - NPO except for ice chips - Refeeding Syndrome - Ascites, 2/2 to hypoalbunemia/cirrhosis - Peritoneal drain placed on 07/27 - SAAG score < 1.1 (less likely from portal HTN) - Transaminitis - Transaminase 109/147 - Elevated Alk hos - RUQ US- identified stones without GB inflammation - discontinue Acetaminophen - discontinue Methadone - consulted GI (Lentin) - PEG Tube placed 07/31 - Dietary consulted for tube feeds - Jevity w/ Prosource to reduce volume and increase calories - mistry in place - UTI, s/p abx - 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 Chavez) ID - Resolved septic shock - S/p Vanc/Zosyn/Meropenem/Tigecycline (end 08/07) - ID following (Dr. Martines) Heme - Normocytic Anemia (Hb 8.7), downtrending - Chronically Elevated PT/INR & PTT - Check coags daily Psych - Hx of Eating Disorder - Hx of Alcohol/Heroin Abuse - Insomnia, placed on Valium 2g, qHS Derm - Multiple Sacral Ulcers (stage 4) - Daily wound care, air mattress, w/ frequent turns - Off-loading to all bony areas (heels, ankles, hips and tailbone) with Allevyn/Optifoam FEN - Hyperkalemia resolved, discontinue banana flakes - Hypoalbuminemia - 12/04 to severe malnutrition - Perative Tube feeds, titrate up to 45 - check and replete electrolytes as needed Prophylaxis - DVT ppx: Heparin 5000u SQ Q12H 12/04 low bodyweight LTD - Tracheostomy on 07/25 - PEG Tube placed 07/31 - Mistry in place - L pigtail chest tube Dispo - Cont to monitor in ICU - 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 Visit type - Emergency Visit Emergency Visit: Yes ED Registration Date: 07/01/20 Care time: The patient presented to the Emergency Department on the above date and was hospitalized for further evaluation of their emergent condition. - New Patient This patient is new to me today: No - Critical Care Critical Care patient: No ATTENDING PHYSICIAN STATEMENT I saw and evaluated the patient. I reviewed the resident's note and discussed the case with the resident. I agree with the resident's findings and plan as documented. SUBJECTIVE: OBJECTIVE: ASSESSMENT AND PLAN:
--- NOTE | 2020-08-10 11:43 | PN ---
Teaching Attending Note Name of Resident: Masha Eduardo ATTENDING PHYSICIAN STATEMENT I saw and evaluated the patient. I reviewed the resident's note and discussed the case with the resident. I agree with the resident's findings and plan as documented. SUBJECTIVE: Patient seen and examined in the ICU. Vented, awake and interactive. Pain is about the same. Slight increase in transamintis. No pressors. CXR: Stable Left PTX OBJECTIVE: Intake & Output 08/07/20 08/08/20 08/09/20 08/10/20 23:59 23:59 23:59 23:59 Intake Total 1824.5 910 2000 720 Output Total 1400 1195 850 350 Balance 424.5 -285 1150 370 Weight 71 lb 3.349 oz 71 lb 3.349 oz 73 lb 13.678 oz 73 lb Last Vital Signs Temp Pulse Resp BP Pulse Ox 98.4 F 129 H 20 110/82 98 08/10/20 06:00 08/10/20 06:00 08/10/20 08:42 08/10/20 06:00 08/10/20 06:41 Active Medications Amino Acids (Prosource No Carb Liquid Pkt) 30 ml PO DAILY [facility] Last Admin: 08/10/20 10:07 Dose: 30 ml Documented by: Ascorbic Acid (Vitamin C -) 500 mg PO DAILY [facility] Last Admin: 08/10/20 10:13 Dose: 500 mg Documented by: Collagenase (Santyl -) 1 applic TP DAILY [facility]; Protocol Last Admin: 08/09/20 10:52 Dose: 1 applic Documented by: Dextrose (D50w (Vial) -) 12.5 gm IVPUSH PRN PRN PRN Reason: HYPOGLYCEMIA Last Admin: 07/31/20 06:34 Dose: 12.5 gm Documented by: Diazepam (Valium -) 2 mg PO 2100 PRN PRN Reason: INSOMNIA Famotidine (Pepcid) 20 mg PEG DAILY [facility] Last Admin: 08/10/20 10:09 Dose: 20 mg Documented by: Folic Acid (Folic Acid -) 1 mg NGT DAILY [facility] Last Admin: 08/10/20 10:08 Dose: 1 mg Documented by: Heparin Sodium (Porcine) (Heparin -) 5,000 unit SQ BID [facility] Last Admin: 08/10/20 10:08 Dose: 5,000 unit Documented by: Hydromorphone HCl (Dilaudid Vial -) 1 mg IVPUSH Q3H PRN PRN Reason: PAIN LEVEL 4 - 6 Last Admin: 08/10/20 02:15 Dose: 1 mg Documented by: Ketorolac Tromethamine (Toradol Injection -) 15 mg IVPUSH Q12H PRN PRN Reason: PAIN LEVEL 1-5 Stop: 08/14/20 11:26 Lactobacillus Acidophilus (Bacid -) 1 tab PEG DAILY [facility] Last Admin: 08/10/20 10:52 Dose: 1 tab Documented by: Lidocaine (Lidoderm Patch -) 1 patch TP DAILY [facility] Last Admin: 08/10/20 10:08 Dose: 1 patch Documented by: Lidocaine HCl (Xylocaine 5% Top. Ointment) 1 applic TP DAILY [facility] Last Admin: 08/09/20 10:51 Dose: 1 applic Documented by: Miscellaneous (Lidoderm Patch Removal) 1 each MC DAILY@2200 [facility] Last Admin: 08/10/20 00:18 Dose: 1 each Documented by: Morphine Sulfate (Morphine Sulfate) 1 mg IVPUSH Q6H PRN PRN Reason: PAIN LEVEL 1-3 Last Admin: 08/10/20 10:13 Dose: 1 mg Documented by: Multi-Ingredient Ointment (Zinc Oxide) 1 applic TP DAILY [facility] Last Admin: 08/09/20 10:51 Dose: 1 applic Documented by: Multivitamins/Minerals (Certavite-Antioxidant Liquid) 15 ml NGT DAILY [facility] Last Admin: 08/10/20 10:07 Dose: 15 ml Documented by: Thiamine HCl (Vitamin B1 Injection -) 100 mg IVPB DAILY [facility] Last Admin: 08/10/20 10:10 Dose: 100 mg Documented by: Gen: vented, awake and alert, cachectic Heart: RRR Lung: Vented, scattered rhonchi, Left pleural catheter Abd: soft, (+) BS< (+) GT Ext: no edema Laboratory Results - last 24 hr 08/09/20 08/10/20 08/10/20 17:28 04:51 05:27 WBC 13.1 H RBC 2.85 L Hgb 8.7 L Hct 26.4 L MCV 92.4 MCH 30.3 MCHC 32.8 RDW 18.6 H Plt Count 236 D MPV 8.5 Sodium Potassium Chloride Carbon Dioxide Anion Gap BUN Creatinine Est GFR (CKD-EPI)AfAm Est GFR (CKD-EPI)NonAf POC Glucometer 111 67 Random Glucose Calcium Phosphorus Magnesium Total Bilirubin AST ALT Alkaline Phosphatase Total Protein Albumin 08/10/20 05:27 WBC RBC Hgb Hct MCV MCH MCHC RDW Plt Count MPV Sodium 139 Potassium 3.8 Chloride 106 Carbon Dioxide 25 Anion Gap 7 L BUN 20.0 H Creatinine < 0.2 L Est GFR (CKD-EPI)AfAm 196.46 Est GFR (CKD-EPI)NonAf 169.51 POC Glucometer Random Glucose 145 H Calcium 6.9 L* Phosphorus 3.0 Magnesium 1.5 L Total Bilirubin 0.8 AST 109 H ALT 147 H Alkaline Phosphatase 973 H Total Protein 4.2 L Albumin 1.3 L ASSESSMENT AND PLAN: Acute Hypoxic Respiratory Failure s/p Tracheostomy Pneumonia likely Aspiration UTI Sepsis Hyponatremia Small Bowel Obstruction Ascites s/p Peritoneal drain placement Alcohol/Heroin Abuse Anemia/Thrombocytopenia Failure to Thrive Severe Protein Calorie Malnutrition Refeeding Syndrome - Maintain pigtail to suction - pain control : Consult Dr Parra - monitor urine output, creatinine - replete lytes - continue antibiotics - Hold spontaneous breathing trials - DVT/GI prophylaxis - continue ICU monitoring LTAC evaluation Dr Babb
[2020-08-10] MEDS: LIDOCAINE HCL 5% TOP OINTMENT 50 GM TUBE TP SCH (12:15)
--- NOTE | 2020-08-10 13:16 | PN ---
Progress Note, Physician History of Present Illness: AWAKE - Current Medication List Current Medications: Active Medications Amino Acids (Prosource No Carb Liquid Pkt) 30 ml PO DAILY [facility] Last Admin: 08/10/20 10:07 Dose: 30 ml Documented by: Ascorbic Acid (Vitamin C -) 500 mg PO DAILY [facility] Last Admin: 08/10/20 10:13 Dose: 500 mg Documented by: Collagenase (Santyl -) 1 applic TP DAILY [facility]; Protocol Last Admin: 08/10/20 10:45 Dose: 1 applic Documented by: Dextrose (D50w (Vial) -) 12.5 gm IVPUSH PRN PRN PRN Reason: HYPOGLYCEMIA Last Admin: 07/31/20 06:34 Dose: 12.5 gm Documented by: Diazepam (Valium -) 2 mg PO 2100 PRN PRN Reason: INSOMNIA Famotidine (Pepcid) 20 mg PEG DAILY [facility] Last Admin: 08/10/20 10:09 Dose: 20 mg Documented by: Folic Acid (Folic Acid -) 1 mg NGT DAILY [facility] Last Admin: 08/10/20 10:08 Dose: 1 mg Documented by: Heparin Sodium (Porcine) (Heparin -) 5,000 unit SQ BID [facility] Last Admin: 08/10/20 10:08 Dose: 5,000 unit Documented by: Hydromorphone HCl (Dilaudid Vial -) 1 mg IVPUSH Q3H PRN PRN Reason: PAIN LEVEL 4 - 6 Last Admin: 08/10/20 12:15 Dose: 1 mg Documented by: Ketorolac Tromethamine (Toradol Injection -) 15 mg IVPUSH Q12H PRN PRN Reason: PAIN LEVEL 1-5 Stop: 08/14/20 11:26 Lactobacillus Acidophilus (Bacid -) 1 tab PEG DAILY [facility] Last Admin: 08/10/20 10:52 Dose: 1 tab Documented by: Lidocaine (Lidoderm Patch -) 1 patch TP DAILY [facility] Last Admin: 08/10/20 10:08 Dose: 1 patch Documented by: Lidocaine HCl (Xylocaine 5% Top. Ointment) 1 applic TP DAILY [facility] Last Admin: 08/10/20 12:15 Dose: 1 applic Documented by: Miscellaneous (Lidoderm Patch Removal) 1 each MC DAILY@2200 [facility] Last Admin: 08/10/20 00:18 Dose: 1 each Documented by: Morphine Sulfate (Morphine Sulfate) 1 mg IVPUSH Q6H PRN PRN Reason: PAIN LEVEL 1-3 Last Admin: 08/10/20 10:13 Dose: 1 mg Documented by: Multi-Ingredient Ointment (Zinc Oxide) 1 applic TP DAILY [facility] Last Admin: 08/10/20 10:45 Dose: 1 applic Documented by: Multivitamins/Minerals (Certavite-Antioxidant Liquid) 15 ml NGT DAILY [facility] Last Admin: 08/10/20 10:07 Dose: 15 ml Documented by: Thiamine HCl (Vitamin B1 Injection -) 100 mg IVPB DAILY [facility] Last Admin: 08/10/20 10:10 Dose: 100 mg Documented by: - Objective Vital Signs: Vital Signs Temperature 98.4 F 08/10/20 06:00 Pulse Rate 129 H 08/10/20 06:00 Respiratory Rate 20 08/10/20 08:42 Blood Pressure 110/82 08/10/20 06:00 O2 Sat by Pulse Oximetry (%) 98 08/10/20 06:41 Constitutional: Yes: No Distress, Cachectic HENT: Yes: Atraumatic Neck: Yes: Other (TRACH COLLAR) Cardiovascular: Yes: Regular Rate and Rhythm Respiratory: Yes: Rhonchi Gastrointestinal: Yes: Normal Bowel Sounds Extremities: Yes: WNL Neurological: Yes: Alert, Oriented Labs: CBC, BMP 08/10/20 05:27 08/10/20 05:27 INR, PTT INR 1.52 (0.83-1.09) H 08/08/20 06:15 Fibrinogen 344.0 mg/dL (238-498) 07/21/20 06:00 Problem List - Problems (1) At risk for electrolyte imbalance Assessment/Plan: MONITOR AND REPLACE Code(s): Z91.89 - OTH PERSONAL RISK FACTORS, NOT ELSEWHERE CLASSIFIED (2) SBO (small bowel obstruction) Assessment/Plan: PEG IN PLACE Code(s): K56.609 - UNSP INTESTNL OBST, UNSP TO PARTIAL VERSUS COMPLETE OBST (3) Sepsis Assessment/Plan: OFF OF ABX STABLE Code(s): A41.9 - SEPSIS, UNSPECIFIED ORGANISM Qualifiers: Sepsis type: sepsis due to unspecified organism Sepsis acute organ dysfunction status: unspecified Qualified Code(s): A41.9 - Sepsis, unspecified organism (4) Alcoholic liver damage Code(s): K70.9 - ALCOHOLIC LIVER DISEASE, UNSPECIFIED (5) Hypoalbuminemia Code(s): E88.09 - OTH DISORDERS OF PLASMA-PROTEIN METABOLISM, NEC (6) Hyponatremia Code(s): E87.1 - HYPO-OSMOLALITY AND HYPONATREMIA (7) Liver cirrhosis, alcoholic Code(s): K70.30 - ALCOHOLIC CIRRHOSIS OF LIVER WITHOUT ASCITES (8) Ischemic hepatitis Code(s): K75.9 - INFLAMMATORY LIVER DISEASE, UNSPECIFIED (9) Respiratory failure Assessment/Plan: S/P TRACH ON VENT Code(s): J96.90 - RESPIRATORY FAILURE, UNSP, UNSP W HYPOXIA OR HYPERCAPNIA (10) UTI (urinary tract infection) Assessment/Plan: OFF OF ABX Code(s): N39.0 - URINARY TRACT INFECTION, SITE NOT SPECIFIED Qualifiers: Urinary tract infection type: site unspecified Hematuria presence: with hematuria Qualified Code(s): N39.0 - Urinary tract infection, site not specified; R31.9 - Hematuria, unspecified (11) Elevated LFTs Code(s): R79.89 - OTHER SPECIFIED ABNORMAL FINDINGS OF BLOOD CHEMISTRY (12) Hypothermia Code(s): T68.XXXA - HYPOTHERMIA, INITIAL ENCOUNTER (13) Skin abrasion Code(s): T14.8XXA - OTHER INJURY OF UNSPECIFIED BODY REGION, INITIAL ENCOUNTER (14) Sacral ulcer Code(s): L98.429 - NON-PRESSURE CHRONIC ULCER OF BACK WITH UNSPECIFIED SEVERITY (15) Severe malnutrition Assessment/Plan: S/P PEG GETTING FEEDS Code(s): E43 - UNSPECIFIED SEVERE PROTEIN-CALORIE MALNUTRITION (16) Pneumothorax on left Assessment/Plan: CHEST TUBE IN PLACE Code(s): J93.9 - PNEUMOTHORAX, UNSPECIFIED (17) Hypotension Assessment/Plan: STILL ON PRESSOR SUPPORT Code(s): I95.9 - HYPOTENSION, UNSPECIFIED Assessment/Plan critical care time spent in reviewing chart, evaluating patient and formulating plan [address] octavio moses
--- NOTE | 2020-08-10 14:13 | PN ---
Progress Note, Physician - Current Medication List Current Medications: Active Medications Amino Acids (Prosource No Carb Liquid Pkt) 30 ml PO DAILY [facility] Last Admin: 08/10/20 10:07 Dose: 30 ml Documented by: Ascorbic Acid (Vitamin C -) 500 mg PO DAILY [facility] Last Admin: 08/10/20 10:13 Dose: 500 mg Documented by: Collagenase (Santyl -) 1 applic TP DAILY [facility]; Protocol Last Admin: 08/10/20 10:45 Dose: 1 applic Documented by: Dextrose (D50w (Vial) -) 12.5 gm IVPUSH PRN PRN PRN Reason: HYPOGLYCEMIA Last Admin: 07/31/20 06:34 Dose: 12.5 gm Documented by: Diazepam (Valium -) 2 mg PO 2100 PRN PRN Reason: INSOMNIA Famotidine (Pepcid) 20 mg PEG DAILY [facility] Last Admin: 08/10/20 10:09 Dose: 20 mg Documented by: Folic Acid (Folic Acid -) 1 mg NGT DAILY [facility] Last Admin: 08/10/20 10:08 Dose: 1 mg Documented by: Heparin Sodium (Porcine) (Heparin -) 5,000 unit SQ BID [facility] Last Admin: 08/10/20 10:08 Dose: 5,000 unit Documented by: Hydromorphone HCl (Dilaudid Vial -) 1 mg IVPUSH Q3H PRN PRN Reason: PAIN LEVEL 4 - 6 Last Admin: 08/10/20 12:15 Dose: 1 mg Documented by: Ketorolac Tromethamine (Toradol Injection -) 15 mg IVPUSH Q12H PRN PRN Reason: PAIN LEVEL 1-5 Stop: 08/14/20 11:26 Lactobacillus Acidophilus (Bacid -) 1 tab PEG DAILY [facility] Last Admin: 08/10/20 10:52 Dose: 1 tab Documented by: Lidocaine (Lidoderm Patch -) 1 patch TP DAILY [facility] Last Admin: 08/10/20 10:08 Dose: 1 patch Documented by: Lidocaine HCl (Xylocaine 5% Top. Ointment) 1 applic TP DAILY [facility] Last Admin: 08/10/20 12:15 Dose: 1 applic Documented by: Miscellaneous (Lidoderm Patch Removal) 1 each MC DAILY@2200 [facility] Last Admin: 08/10/20 00:18 Dose: 1 each Documented by: Morphine Sulfate (Morphine Sulfate) 1 mg IVPUSH Q6H PRN PRN Reason: PAIN LEVEL 1-3 Last Admin: 08/10/20 10:13 Dose: 1 mg Documented by: Multi-Ingredient Ointment (Zinc Oxide) 1 applic TP DAILY [facility] Last Admin: 08/10/20 10:45 Dose: 1 applic Documented by: Multivitamins/Minerals (Certavite-Antioxidant Liquid) 15 ml NGT DAILY [facility] Last Admin: 08/10/20 10:07 Dose: 15 ml Documented by: Thiamine HCl (Vitamin B1 Injection -) 100 mg IVPB DAILY [facility] Last Admin: 08/10/20 10:10 Dose: 100 mg Documented by: - Objective Vital Signs: Vital Signs Temperature 98.4 F 08/10/20 06:00 Pulse Rate 129 H 08/10/20 06:00 Respiratory Rate 24 H 08/10/20 11:45 Blood Pressure 110/82 08/10/20 06:00 O2 Sat by Pulse Oximetry (%) 98 08/10/20 06:41 Labs: CBC, BMP 08/10/20 05:27 08/10/20 05:27 INR, PTT INR 1.52 (0.83-1.09) H 08/08/20 06:15 Fibrinogen 344.0 mg/dL (238-498) 07/21/20 06:00
--- NOTE | 2020-08-10 16:52 | PN ---
Progress Note, Physician History of Present Illness: Pt seen and examined at bedside. She is awake and appears comfortable. - Current Medication List Current Medications: Active Medications Amino Acids (Prosource No Carb Liquid Pkt) 30 ml PO DAILY [facility] Last Admin: 08/10/20 10:07 Dose: 30 ml Documented by: Ascorbic Acid (Vitamin C -) 500 mg PO DAILY [facility] Last Admin: 08/10/20 10:13 Dose: 500 mg Documented by: Collagenase (Santyl -) 1 applic TP DAILY [facility]; Protocol Last Admin: 08/10/20 10:45 Dose: 1 applic Documented by: Dextrose (D50w (Vial) -) 12.5 gm IVPUSH PRN PRN PRN Reason: HYPOGLYCEMIA Last Admin: 07/31/20 06:34 Dose: 12.5 gm Documented by: Diazepam (Valium -) 2 mg PO 2100 PRN PRN Reason: INSOMNIA Famotidine (Pepcid) 20 mg PEG DAILY [facility] Last Admin: 08/10/20 10:09 Dose: 20 mg Documented by: Folic Acid (Folic Acid -) 1 mg NGT DAILY [facility] Last Admin: 08/10/20 10:08 Dose: 1 mg Documented by: Heparin Sodium (Porcine) (Heparin -) 5,000 unit SQ BID [facility] Last Admin: 08/10/20 10:08 Dose: 5,000 unit Documented by: Hydromorphone HCl (Dilaudid Vial -) 1 mg IVPUSH Q3H PRN PRN Reason: PAIN LEVEL 4 - 6 Last Admin: 08/10/20 12:15 Dose: 1 mg Documented by: Ketorolac Tromethamine (Toradol Injection -) 15 mg IVPUSH Q12H PRN PRN Reason: PAIN LEVEL 1-5 Stop: 08/14/20 11:26 Lactobacillus Acidophilus (Bacid -) 1 tab PEG DAILY [facility] Last Admin: 08/10/20 10:52 Dose: 1 tab Documented by: Lidocaine (Lidoderm Patch -) 1 patch TP DAILY [facility] Last Admin: 08/10/20 10:08 Dose: 1 patch Documented by: Lidocaine HCl (Xylocaine 5% Top. Ointment) 1 applic TP DAILY [facility] Last Admin: 08/10/20 12:15 Dose: 1 applic Documented by: Miscellaneous (Lidoderm Patch Removal) 1 each MC DAILY@2200 [facility] Last Admin: 08/10/20 00:18 Dose: 1 each Documented by: Morphine Sulfate (Morphine Sulfate) 1 mg IVPUSH Q6H PRN PRN Reason: PAIN LEVEL 1-3 Last Admin: 08/10/20 10:13 Dose: 1 mg Documented by: Multi-Ingredient Ointment (Zinc Oxide) 1 applic TP DAILY [facility] Last Admin: 08/10/20 10:45 Dose: 1 applic Documented by: Multivitamins/Minerals (Certavite-Antioxidant Liquid) 15 ml NGT DAILY [facility] Last Admin: 08/10/20 10:07 Dose: 15 ml Documented by: Thiamine HCl (Vitamin B1 Injection -) 100 mg IVPB DAILY [facility] Last Admin: 08/10/20 10:10 Dose: 100 mg Documented by: - Objective Vital Signs: Vital Signs Temperature 98.4 F 08/10/20 06:00 Pulse Rate 129 H 08/10/20 06:00 Respiratory Rate 29 H 08/10/20 16:15 Blood Pressure 110/82 08/10/20 06:00 O2 Sat by Pulse Oximetry (%) 98 08/10/20 06:41 Constitutional: Yes: Calm, Cachectic Eyes: Yes: Conjunctiva Clear Cardiovascular: Yes: S1, S2 Gastrointestinal: Yes: Soft Genitourinary: Yes: Uribe Present Musculoskeletal: Yes: Muscle Weakness Edema: No Neurological: Yes: Oriented Labs: CBC, BMP 08/10/20 05:27 08/10/20 05:27 INR, PTT INR 1.52 (0.83-1.09) H 08/08/20 06:15 Fibrinogen 344.0 mg/dL (238-498) 07/21/20 06:00 Problem List - Problems (1) Hypoglycemia Code(s): E16.2 - HYPOGLYCEMIA, UNSPECIFIED (2) Sepsis Code(s): A41.9 - SEPSIS, UNSPECIFIED ORGANISM Qualifiers: Sepsis type: sepsis due to unspecified organism Sepsis acute organ dysfunc tion status: unspecified Qualified Code(s): A41.9 - Sepsis, unspecified organism (3) Hypoalbuminemia Code(s): E88.09 - OTH DISORDERS OF PLASMA-PROTEIN METABOLISM, NEC (4) Hyponatremia Code(s): E87.1 - HYPO-OSMOLALITY AND HYPONATREMIA Assessment/Plan Current Medications Generic Name Dose Route Start Last Admin Trade Name Freq PRN Reason Stop Dose Admin Amino Acids 30 ml 08/08/20 12:45 08/10/20 10:07 Prosource No Carb Liquid Pkt PO 30 ml DAILY [facility] Administration Ascorbic Acid 500 mg 07/27/20 13:00 08/10/20 10:13 Vitamin C - PO 500 mg DAILY [facility] Administration Collagenase 1 applic 08/05/20 19:30 08/10/20 10:45 Santyl - TP 1 applic DAILY [facility] Administration Protocol Dextrose 12.5 gm 07/08/20 07:08 07/31/20 06:34 D50w (Vial) - IVPUSH 12.5 gm PRN PRN Administration HYPOGLYCEMIA Diazepam 2 mg 08/10/20 10:41 Valium - PO 2100 PRN INSOMNIA Famotidine 20 mg 08/04/20 10:45 08/10/20 10:09 Pepcid PEG 20 mg DAILY [facility] Administration Folic Acid 1 mg 07/06/20 10:00 08/10/20 10:08 Folic Acid - NGT 1 mg DAILY [facility] Administration Heparin Sodium (Porcine) 5,000 unit 07/20/20 10:00 08/10/20 10:08 Heparin - SQ 5,000 unit BID [facility] Administration Hydromorphone HCl 1 mg 07/26/20 13:39 08/10/20 12:15 Dilaudid Vial - IVPUSH 1 mg Q3H PRN Administration PAIN LEVEL 4 - 6 Ketorolac Tromethamine 15 mg 08/10/20 10:36 Toradol Injection - IVPUSH 08/14/20 11:26 Q12H PRN PAIN LEVEL 1-5 Lactobacillus Acidophilus 1 tab 08/08/20 12:45 08/10/20 10:52 Bacid - PEG 1 tab DAILY [facility] Administration Lidocaine 1 patch 08/09/20 11:30 08/10/20 10:08 Lidoderm Patch - TP 1 patch DAILY [facility] Administration Lidocaine HCl 1 applic 07/25/20 21:50 08/10/20 12:15 Xylocaine 5% Top. Ointment TP 1 applic DAILY [facility] Administration Miscellaneous 1 each 08/09/20 23:00 08/10/20 00:18 Lidoderm Patch Removal MC 1 each DAILY@2200 [facility] Administration Morphine Sulfate 1 mg 08/08/20 10:43 08/10/20 10:13 Morphine Sulfate IVPUSH 1 mg Q6H PRN Administration PAIN LEVEL 1-3 Multi-Ingredient Ointment 1 applic 07/19/20 13:30 08/10/20 10:45 Zinc Oxide TP 1 applic DAILY [facility] Administration Multivitamins/Minerals 15 ml 07/06/20 11:45 08/10/20 10:07 Certavite-Antioxidant Liquid NGT 15 ml DAILY [facility] Administration Thiamine HCl 100 mg 07/11/20 12:45 08/10/20 10:10 Vitamin B1 Injection - IVPB 100 mg DAILY [facility] Administration Impression 1. azotemia 2. hyponatremia 3. hyperkalemia 4. hypotension 5. sepsis 6. sbo 7. uti 8. liver cirrhosis 9. hypoalbuminemia 10. etoh abuse 11. substance abuse 12. psoriasis 13. acute resp failure 14. malnutrition 15. 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 ascites Plan - pt tolerating feeds - monitor lytes - monitor output - vent support - will follow prn
[2020-08-10] MEDS ORDERED: LORazepam 2 MG/ML SDV VIAL IVPUSH ONE (19:22)
[2020-08-10] MEDS ORDERED: levETIRAcetam 500 MG/5 ML INJECTION VIAL IVPB ONE (19:24)
[2020-08-10] MEDS ORDERED: LORazepam 2 MG/ML SDV VIAL ONE (19:27)
[2020-08-11] MEDS: HYDROmorphone HCl 2 MG/ML VIAL IVPUSH PRN ×4 (01:50→21:05)
[2020-08-11] MEDS: MORPHINE SULFATE 2 MG/ML VIAL IVPUSH PRN ×2 (07:14→17:18)
[2020-08-11] MEDS: diazePAM 2 MG TABLET PO PRN (07:15)
--- NOTE | 2020-08-11 07:43 | PN ---
Physical Exam: SUBJECTIVE: Patient seen and examined at bedside. Resting comfortably without any new complaints. Pain control has improved with new regimen. Suspected seizure activity that spontaneously resolved. Given 1000mg Keppra for prophylaxis. OBJECTIVE: Vital Signs Period Temp Pulse Resp BP Sys/Campbell Pulse Ox Last 24 Hr 98 F-99.7 F 102-144 14-29 102-137/67-90 93-100 GENERAL: The patient is awake, alert, oriented HEAD: Normal with no signs of trauma, temporal wasting, tracheostomy EYES: PERRL, extraocular movements intact, sclera anicteric, conjunctiva clear. No ptosis. ENT: Ears normal, nares patent, oropharynx clear without exudates, moist mucous membranes. NECK: Trachea midline, full range of motion, supple. LUNGS: Breath sounds diminished on right basilar, crackles on right base, absent breath sounds on left lung. clear to auscultation bilaterally, HEART: regular rhythm, S1, S2 without murmur, rub or gallop. ABDOMEN: thin, peg tube Soft, nontender, nondistended, normoactive bowel sounds, no guarding, rebound, no hepatosplenomegaly, no masses. EXTREMITIES: 2+ pulses, warm, well-perfused, no edema. NEUROLOGICAL: Cranial nerves II through XII grossly intact, gait not observed. PSYCH: Normal mood, normal affect. SKIN: Warm, dry, normal turgor, sacral ulcer (unstagable), peritoneal ulcer Laboratory Results - last 24 hr 08/10/20 08/10/20 08/10/20 05:27 05:27 19:21 WBC 13.1 H RBC 2.85 L Hgb 8.7 L Hct 26.4 L MCV 92.4 MCH 30.3 MCHC 32.8 RDW 18.6 H Plt Count 236 D MPV 8.5 Sodium 139 Potassium 3.8 Chloride 106 Carbon Dioxide 25 Anion Gap 7 L BUN 20.0 H Creatinine < 0.2 L Est GFR (CKD-EPI)AfAm 196.46 Est GFR (CKD-EPI)NonAf 169.51 POC Glucometer 109 Random Glucose 145 H Calcium 6.9 L* Phosphorus 3.0 Magnesium 1.5 L Total Bilirubin 0.8 AST 109 H ALT 147 H Alkaline Phosphatase 973 H Total Protein 4.2 L Albumin 1.3 L 08/11/20 07:09 WBC RBC Hgb Hct MCV MCH MCHC RDW Plt Count MPV Sodium Potassium Chloride Carbon Dioxide Anion Gap BUN Creatinine Est GFR (CKD-EPI)AfAm Est GFR (CKD-EPI)NonAf POC Glucometer 111 Random Glucose Calcium Phosphorus Magnesium Total Bilirubin AST ALT Alkaline Phosphatase Total Protein Albumin Active Medications Generic Name Dose Route Start Last Admin Trade Name Freq PRN Reason Stop Dose Admin Amino Acids 30 ml 08/08/20 12:45 08/10/20 10:07 Prosource No Carb Liquid Pkt PO 30 ml DAILY [facility] Administration Ascorbic Acid 500 mg 07/27/20 13:00 08/10/20 10:13 Vitamin C - PO 500 mg DAILY [facility] Administration Collagenase 1 applic 08/05/20 19:30 08/10/20 10:45 Santyl - TP 1 applic DAILY [facility] Administration Protocol Dextrose 12.5 gm 07/08/20 07:08 07/31/20 06:34 D50w (Vial) - IVPUSH 12.5 gm PRN PRN Administration HYPOGLYCEMIA Diazepam 2 mg 08/10/20 10:41 08/11/20 07:15 Valium - PO 2 mg 2100 PRN Administration INSOMNIA Famotidine 20 mg 08/04/20 10:45 08/10/20 10:09 Pepcid PEG 20 mg DAILY [facility] Administration Folic Acid 1 mg 07/06/20 10:00 08/10/20 10:08 Folic Acid - NGT 1 mg DAILY [facility] Administration Heparin Sodium (Porcine) 5,000 unit 07/20/20 10:00 08/10/20 21:29 Heparin - SQ 5,000 unit BID [facility] Administration Hydromorphone HCl 1 mg 07/26/20 13:39 08/11/20 05:02 Dilaudid Vial - IVPUSH 1 mg Q3H PRN Administration PAIN LEVEL 4 - 6 Ketorolac Tromethamine 15 mg 08/10/20 10:36 Toradol Injection - IVPUSH 08/14/20 11:26 Q12H PRN PAIN LEVEL 1-5 Lactobacillus Acidophilus 1 tab 08/08/20 12:45 08/10/20 10:52 Bacid - PEG 1 tab DAILY [facility] Administration Lidocaine 1 patch 08/09/20 11:30 08/10/20 10:08 Lidoderm Patch - TP 1 patch DAILY [facility] Administration Lidocaine HCl 1 applic 07/25/20 21:50 08/10/20 12:15 Xylocaine 5% Top. Ointment TP 1 applic DAILY [facility] Administration Miscellaneous 1 each 08/09/20 23:00 08/10/20 21:37 Lidoderm Patch Removal MC 1 each DAILY@2200 [facility] Administration Morphine Sulfate 1 mg 08/08/20 10:43 08/11/20 07:14 Morphine Sulfate IVPUSH 1 mg Q6H PRN Administration PAIN LEVEL 1-3 Multi-Ingredient Ointment 1 applic 07/19/20 13:30 08/10/20 10:45 Zinc Oxide TP 1 applic DAILY [facility] Administration Multivitamins/Minerals 15 ml 07/06/20 11:45 08/10/20 10:07 Certavite-Antioxidant Liquid NGT 15 ml DAILY [facility] Administration Thiamine HCl 100 mg 07/11/20 12:45 08/10/20 10:10 Vitamin B1 Injection - IVPB 100 mg DAILY [facility] Administration ASSESSMENT/PLAN: 35 yo female with PMH of malnutrition 2/2 bulimia and polysubstance use disorder, cirrhosis, & heroin abuse, in ICU with sepsis and acute hypoxic respiratory failure, now s/p trach, sp abdominal peritoneal drain, s/p peg placement. Neuro - Alert, responsive, able to communicate with writing and mouthing words -Pain Management - Dilaudid 1g, q3h - Morphine 1mg, q6h - Fentanyl 50mcg, q6h - Toradol 15mg, q12 - Lidoderm Patch - Dr Hinkle consulted for pain management -Sleep Management - Diazepam 2mg, qHS 1000mg Keppra 1x for seizure prophylaxis after suspected seizure CV - MAP stable - discontinued pressors Respiratory - Acute Hypoxic Respiratory Failure 2/2 Aspiration Pneumonia -Resolved - Tracheostomy on 07/25 - maintain SpO2 >90% - downsize trach tube at [facility] - L Pneumothorax - stable pneumothorax - s/p chest tube and subsequent re-inflation - 08/08, on suction, air leak present - 08/10, increased suction to 30 GI - NPO except for ice chips - Refeeding Syndrome - Transaminitis - Transaminase Resolving - Elevated Alk hos - RUQ US- identified stones without GB inflammation - discontinue Acetaminophen - discontinue Methadone - consulted GI (Lentin) - PEG Tube placed 07/31 - Dietary consulted for tube feeds - Jevity w/ Prosource to reduce volume and increase calories - mistry in place - UTI, s/p abx - 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 Chavez) ID - Resolved septic shock - S/p Vanc/Zosyn/Meropenem/Tigecycline (end 08/07) - ID following (Dr. Martines) Heme - Normocytic Anemia (Hb 8.9), stable - Chronically Elevated PT/INR & PTT - Check coags daily Psych - Hx of Eating Disorder - Hx of Alcohol/Heroin Abuse - Insomnia, placed on Valium 2g, qHS Derm - Multiple Sacral Ulcers (stage 4) - Daily wound care, air mattress, w/ frequent turns - Off-loading to all bony areas (heels, ankles, hips and tailbone) with Allevyn/Optifoam FEN - Hyperkalemia resolved, discontinue banana flakes - Hypoalbuminemia - 12/04 to severe malnutrition - Perative Tube feeds, titrate up to 45 - check and replete electrolytes as needed Prophylaxis - DVT ppx: Heparin 5000u SQ Q12H 12/04 low bodyweight LTD - Tracheostomy on 07/25 - PEG Tube placed 07/31 - Mistry in place - L pigtail chest tube Dispo - Cont to monitor in ICU - 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 Visit type - Emergency Visit Emergency Visit: Yes ED Registration Date: 07/01/20 Care time: The patient presented to the Emergency Department on the above date and was hospitalized for further evaluation of their emergent condition. - New Patient This patient is new to me today: No - Critical Care Critical Care patient: No - Discharge Referral Referred to [facility] No ATTENDING PHYSICIAN STATEMENT I saw and evaluated the patient. I reviewed the resident's note and discussed the case with the resident. I agree with the resident's findings and plan as documented. SUBJECTIVE: OBJECTIVE: ASSESSMENT AND PLAN:
[2020-08-11 08:05] LABS: ALBUMIN 1.4 g/dl (3.4-5.0); BLOOD UREA NITROGEN 20.6 mg/dL (7-18); CALCIUM 7.3 mg/dL (8.5-10.1); CREATININE 0.2 mg/dL (0.55-1.3); MAGNESIUM 1.9 mg/dL (1.8-2.4); PHOSPHOROUS 3.4 mg/dL (2.5-4.9); POTASSIUM 4.1 mmol/L (3.5-5.1); TOT PROT 4.6 g/dl (6.4-8.2)
[2020-08-11 08:29] LABS: HEMATOCRIT 26.3 % (32.4-45.2); HEMOGLOBIN 8.9 GM/dL (10.7-15.3); MCH 31.6 pg (25.7-33.7); MCHC 33.7 g/dl (32.0-36.0); MEAN CELL VOLUME 93.6 fl (80-96); MEAN PLT VOLUME 8.4 fl (7.5-11.1); PLATELET COUNT 361 K/MM3 (134-434); RBC 2.81 M/mm3 (3.60-5.2); WHITE BLOOD COUNT 12.8 K/mm3 (4.0-10.0)
[2020-08-11] MEDS ORDERED: PT OWN MED DRAWER 7, Y5N ONE (09:04)
[2020-08-11] MEDS: THIAMINE HCL 200 MG/2 ML VIAL IVPB SCH (09:05)
[2020-08-11] MEDS: ASCORBIC ACID 500 MG TABLET (FP) PO SCH (09:05)
[2020-08-11] MEDS: MULTIVIT-MINERALS ORAL LIQUID NGT SCH (09:05)
[2020-08-11] MEDS: LACTOBACILLUS ACIDOPHILUS 1 TABLET PEG SCH (09:05)
[2020-08-11] MEDS: HEPARIN NA (PORCINE) 5,000 UNITS/ML 1ML VIAL SQ SCH ×2 (09:05→21:05)
[2020-08-11] MEDS: FAMOTIDINE 40 MG/5 ML ORAL SUSPENSION PEG SCH (09:06)
[2020-08-11] MEDS: FOLIC ACID 1 MG TABLET (FP) NGT SCH (09:06)
[2020-08-11] MEDS: LIDOCAINE 5% TOPICAL PATCH TP SCH (09:06)
[2020-08-11] MEDS: COLLAGENASE CLOSTRIDIUM HIST. 30 GRAMS TUBE TP SCH (09:06)
[2020-08-11] MEDS: LIDOCAINE HCL 5% TOP OINTMENT 50 GM TUBE TP SCH (09:07)
[2020-08-11] MEDS: ZINC OXIDE 20% TOPICAL OINTMENT 30 GM TUBE TP SCH (09:07)
[2020-08-11] MEDS: AMINO ACIDS/PROTEIN HYDROLYS 30 ML LIQUID.PKT PO SCH (09:25)
--- NOTE | 2020-08-11 12:19 | PN ---
Teaching Attending Note Name of Resident: Masha Eduardo ATTENDING PHYSICIAN STATEMENT I saw and evaluated the patient. I reviewed the resident's note and discussed the case with the resident. I agree with the resident's findings and plan as documented. SUBJECTIVE: Patient seen and examined in the ICU. Vented, awake and interactive. Pain is about the same. No pressors. CXR: Some improvement in Left PTX OBJECTIVE: Intake & Output 08/08/20 08/09/20 08/10/20 08/11/20 23:59 23:59 23:59 23:59 Intake Total 910 2000 1620 820 Output Total 1195 850 540 500 Balance -285 1150 1080 320 Weight 71 lb 3.349 oz 73 lb 13.678 oz 73 lb 73 lb Last Vital Signs Temp Pulse Resp BP Pulse Ox 99.5 F 115 H 20 113/80 100 08/11/20 10:00 08/11/20 10:00 08/11/20 10:00 08/11/20 10:00 08/11/20 10:00 Active Medications Amino Acids (Prosource No Carb Liquid Pkt) 30 ml PO DAILY [facility] Last Admin: 08/11/20 09:25 Dose: 30 ml Documented by: Ascorbic Acid (Vitamin C -) 500 mg PO DAILY [facility] Last Admin: 08/11/20 09:05 Dose: 500 mg Documented by: Collagenase (Santyl -) 1 applic TP DAILY [facility]; Protocol Last Admin: 08/11/20 09:06 Dose: 1 applic Documented by: Dextrose (D50w (Vial) -) 12.5 gm IVPUSH PRN PRN PRN Reason: HYPOGLYCEMIA Last Admin: 07/31/20 06:34 Dose: 12.5 gm Documented by: Diazepam (Valium -) 2 mg PO 2100 PRN PRN Reason: INSOMNIA Last Admin: 08/11/20 07:15 Dose: 2 mg Documented by: Famotidine (Pepcid) 20 mg PEG DAILY [facility] Last Admin: 08/11/20 09:06 Dose: 20 mg Documented by: Folic Acid (Folic Acid -) 1 mg NGT DAILY [facility] Last Admin: 08/11/20 09:06 Dose: 1 mg Documented by: Heparin Sodium (Porcine) (Heparin -) 5,000 unit SQ BID [facility] Last Admin: 08/11/20 09:05 Dose: 5,000 unit Documented by: Hydromorphone HCl (Dilaudid Vial -) 1 mg IVPUSH Q3H PRN PRN Reason: PAIN LEVEL 4 - 6 Last Admin: 08/11/20 10:51 Dose: 1 mg Documented by: Ketorolac Tromethamine (Toradol Injection -) 15 mg IVPUSH Q12H PRN PRN Reason: PAIN LEVEL 1-5 Stop: 08/14/20 11:26 Lactobacillus Acidophilus (Bacid -) 1 tab PEG DAILY [facility] Last Admin: 08/11/20 09:05 Dose: 1 tab Documented by: Lidocaine (Lidoderm Patch -) 1 patch TP DAILY [facility] Last Admin: 08/11/20 09:06 Dose: 1 patch Documented by: Lidocaine HCl (Xylocaine 5% Top. Ointment) 1 applic TP DAILY [facility] Last Admin: 08/11/20 09:07 Dose: 1 applic Documented by: Miscellaneous (Lidoderm Patch Removal) 1 each MC DAILY@2200 [facility] Last Admin: 08/10/20 21:37 Dose: 1 each Documented by: Morphine Sulfate (Morphine Sulfate) 1 mg IVPUSH Q6H PRN PRN Reason: PAIN LEVEL 1-3 Last Admin: 08/11/20 07:14 Dose: 1 mg Documented by: Multi-Ingredient Ointment (Zinc Oxide) 1 applic TP DAILY [facility] Last Admin: 08/11/20 09:07 Dose: 1 applic Documented by: Multivitamins/Minerals (Certavite-Antioxidant Liquid) 15 ml NGT DAILY [facility] Last Admin: 08/11/20 09:05 Dose: 15 ml Documented by: Thiamine HCl (Vitamin B1 Injection -) 100 mg IVPB DAILY [facility] Last Admin: 08/11/20 09:05 Dose: 100 mg Documented by: Gen: vented, awake and alert, cachectic Heart: RRR Lung: Vented, scattered rhonchi, Left pleural catheter Abd: soft, (+) BS< (+) GT Ext: no edema Laboratory Results - last 24 hr 08/10/20 08/11/20 08/11/20 19:21 06:26 06:26 WBC 12.8 H RBC 2.81 L Hgb 8.9 L Hct 26.3 L MCV 93.6 MCH 31.6 MCHC 33.7 RDW 19.0 H Plt Count 361 D MPV 8.4 Sodium 137 Potassium 4.1 Chloride 104 Carbon Dioxide 27 Anion Gap 6 L BUN 20.6 H Creatinine 0.2 L Est GFR (CKD-EPI)AfAm 196.46 Est GFR (CKD-EPI)NonAf 169.51 POC Glucometer 109 Random Glucose 108 H Calcium 7.3 L Phosphorus 3.4 Magnesium 1.9 Total Bilirubin 1.0 AST 70 H ALT 129 H Alkaline Phosphatase 1171 H Total Protein 4.6 L Albumin 1.4 L 08/11/20 07:09 WBC RBC Hgb Hct MCV MCH MCHC RDW Plt Count MPV Sodium Potassium Chloride Carbon Dioxide Anion Gap BUN Creatinine Est GFR (CKD-EPI)AfAm Est GFR (CKD-EPI)NonAf POC Glucometer 111 Random Glucose Calcium Phosphorus Magnesium Total Bilirubin AST ALT Alkaline Phosphatase Total Protein Albumin ASSESSMENT AND PLAN: Acute Hypoxic Respiratory Failure s/p Tracheostomy Pneumonia likely Aspiration UTI Sepsis Hyponatremia Small Bowel Obstruction Ascites s/p Peritoneal drain placement Alcohol/Heroin Abuse Anemia/Thrombocytopenia Failure to Thrive Severe Protein Calorie Malnutrition Refeeding Syndrome - Maintain pigtail to suction - pain control : Consult Dr Parra - Nutritional support - replete lytes - ABX per ID - Hold spontaneous breathing trials due to PTX - DVT/GI prophylaxis - continue ICU monitoring Pending LTAC approval Dr Babb
--- NOTE | 2020-08-11 15:57 | PN ---
Progress Note, Physician History of Present Illness: Pt is alert and responsive, without obvious distress. On vent via trach. Mild temp elevations noted. - Current Medication List Current Medications: Active Medications Amino Acids (Prosource No Carb Liquid Pkt) 30 ml PO DAILY [facility] Last Admin: 08/11/20 09:25 Dose: 30 ml Documented by: Ascorbic Acid (Vitamin C -) 500 mg PO DAILY [facility] Last Admin: 08/11/20 09:05 Dose: 500 mg Documented by: Collagenase (Santyl -) 1 applic TP DAILY [facility]; Protocol Last Admin: 08/11/20 09:06 Dose: 1 applic Documented by: Dextrose (D50w (Vial) -) 12.5 gm IVPUSH PRN PRN PRN Reason: HYPOGLYCEMIA Last Admin: 07/31/20 06:34 Dose: 12.5 gm Documented by: Diazepam (Valium -) 2 mg PO 2100 PRN PRN Reason: INSOMNIA Last Admin: 08/11/20 07:15 Dose: 2 mg Documented by: Famotidine (Pepcid) 20 mg PEG DAILY [facility] Last Admin: 08/11/20 09:06 Dose: 20 mg Documented by: Folic Acid (Folic Acid -) 1 mg NGT DAILY [facility] Last Admin: 08/11/20 09:06 Dose: 1 mg Documented by: Heparin Sodium (Porcine) (Heparin -) 5,000 unit SQ BID [facility] Last Admin: 08/11/20 09:05 Dose: 5,000 unit Documented by: Hydromorphone HCl (Dilaudid Vial -) 1 mg IVPUSH Q3H PRN PRN Reason: PAIN LEVEL 4 - 6 Last Admin: 08/11/20 10:51 Dose: 1 mg Documented by: Ketorolac Tromethamine (Toradol Injection -) 15 mg IVPUSH Q12H PRN PRN Reason: PAIN LEVEL 1-5 Stop: 08/14/20 11:26 Lactobacillus Acidophilus (Bacid -) 1 tab PEG DAILY [facility] Last Admin: 08/11/20 09:05 Dose: 1 tab Documented by: Lidocaine (Lidoderm Patch -) 1 patch TP DAILY [facility] Last Admin: 08/11/20 09:06 Dose: 1 patch Documented by: Lidocaine HCl (Xylocaine 5% Top. Ointment) 1 applic TP DAILY [facility] Last Admin: 08/11/20 09:07 Dose: 1 applic Documented by: Miscellaneous (Lidoderm Patch Removal) 1 each DAILY@2199 [facility] Last Admin: 08/10/20 21:37 Dose: 1 each Documented by: Morphine Sulfate (Morphine Sulfate) 1 mg IVPUSH Q6H PRN PRN Reason: PAIN LEVEL 1-3 Last Admin: 08/11/20 07:14 Dose: 1 mg Documented by: Multi-Ingredient Ointment (Zinc Oxide) 1 applic TP DAILY [facility] Last Admin: 08/11/20 09:07 Dose: 1 applic Documented by: Multivitamins/Minerals (Certavite-Antioxidant Liquid) 15 ml NGT DAILY [facility] Last Admin: 08/11/20 09:05 Dose: 15 ml Documented by: Thiamine HCl (Vitamin B1 Injection -) 100 mg IVPB DAILY [facility] Last Admin: 08/11/20 09:05 Dose: 100 mg Documented by: - Objective Vital Signs: Vital Signs Temperature 99.6 F 08/11/20 14:00 Pulse Rate 130 H 08/11/20 14:00 Respiratory Rate 24 H 08/11/20 14:00 Blood Pressure 120/83 08/11/20 14:00 O2 Sat by Pulse Oximetry (%) 100 08/11/20 14:00 Constitutional: Yes: No Distress, Calm, Cachectic Cardiovascular: Yes: Tachycardia Respiratory: Yes: Mechanically Ventilated Gastrointestinal: Yes: Normal Bowel Sounds, Soft Genitourinary: Yes: Uribe Present Neurological: Yes: Alert Labs: CBC, BMP 08/11/20 06:26 08/11/20 06:26 INR, PTT INR 1.52 (0.83-1.09) H 08/08/20 06:15 Fibrinogen 344.0 mg/dL (238-498) 07/21/20 06:00 Laboratory Last Values WBC 12.8 K/mm3 (4.0-10.0) H 08/11/20 06:26 RBC 2.81 M/mm3 (3.60-5.2) L 08/11/20 06:26 Hgb 8.9 GM/dL (10.7-15.3) L 08/11/20 06:26 Hct 26.3 % (32.4-45.2) L 08/11/20 06:26 MCV 93.6 fl (80-96) 08/11/20 06:26 MCH 31.6 pg (25.7-33.7) 08/11/20 06:26 MCHC 33.7 g/dl (32.0-36.0) 08/11/20 06:26 RDW 19.0 % (11.6-15.6) H 08/11/20 06:26 Plt Count 361 K/MM3 (134-434) D 08/11/20 06:26 MPV 8.4 fl (7.5-11.1) 08/11/20 06:26 Absolute Neuts (auto) 11.0 K/mm3 (1.5-8.0) H 08/05/20 05:30 Total Counted 100 07/04/20 10:45 Neutrophils % 93.9 % (42.8-82.8) H 08/05/20 05:30 Neutrophils % (Manual) 92.1 % (42.8-82.8) H 08/05/20 05:30 Band Neutrophils % 1.0 % 08/05/20 05:30 Lymphocytes % 2.4 % (8-40) L D 08/05/20 05:30 Lymphocytes % (Manual) 3.0 % (8-40) L D 08/05/20 05:30 Monocytes % 3.2 % (3.8-10.2) L 08/05/20 05:30 Monocytes % (Manual) 4 % (3.8-10.2) 08/05/20 05:30 Eosinophils % 0.4 % (0-4.5) 08/05/20 05:30 Eosinophils % (Manual) 0.0 % (0-4.5) 08/05/20 05:30 Basophils % 0.1 % (0-2.0) 08/05/20 05:30 Basophils % (Manual) 0.0 % (0-2.0) 08/05/20 05:30 Myelocytes % (Man) 0 % (0-2) 08/05/20 05:30 Promyelocytes % (Man) 0 % (0-2) 08/05/20 05:30 Blast Cells % (Manual) 0 % (0-0) 08/05/20 05:30 Nucleated RBC % 0 % (0-0) 08/05/20 05:30 Metamyelocytes 0 % (0-2) 08/05/20 05:30 Hypochromia 1+ 08/05/20 05:30 Platelet Estimate Decreased 08/05/20 05:30 Platelet Comment No clotting detected 07/02/20 00:54 Platelet Comment No clumping noted 07/02/20 00:54 Polychromasia 0 08/05/20 05:30 Poikilocytosis 1+ 08/05/20 05:30 Anisocytosis 1+ 08/05/20 05:30 Microcytosis 0 08/05/20 05:30 Macrocytosis 1+ 08/05/20 05:30 Tear Drop Cells 1+ 07/02/20 06:50 Ovalocytes 1+ 07/02/20 06:50 Breaks Cells 1+ 07/18/20 06:00 Acanthocytes (Spur) 1+ 07/16/20 05:30 Fragmented RBCs 1+ 07/18/20 06:00 Schistocytes 2+ 07/16/20 05:30 Retic Count 4.15 % (0.5-1.5) H 07/20/20 06:00 Haptoglobin 148 mg/dL (33-278) 07/20/20 15:45 PT with INR 18.00 SEC (9.7-13.0) H 08/08/20 06:15 INR 1.52 (0.83-1.09) H 08/08/20 06:15 PTT (Actin FS) 34.4 SECONDS (25.2-36.5) 08/08/20 06:15 Fibrinogen 344.0 mg/dL (238-498) 07/21/20 06:00 D-Dimer 1728 ng/ml (0-500) H 07/20/20 13:00 Anticoagulation Therapy No Result Required. 07/23/20 05:20 Puncture Site Right brachial 07/23/20 05:20 Patient Temperature No Result Required. 07/23/20 05:20 ABG pH 7.472 (7.350-7.450) H 07/23/20 05:20 ABG pCO2 26.50 mmHg (35-45) L 07/23/20 05:20 ABG pO2 142.3 mmHg (80-100) H 07/23/20 05:20 ABG HCO3 18.9 mmol/L (22-27) L 07/23/20 05:20 ABG O2 Sat (Measured) 99.0 mmHg (95-98) H 07/23/20 05:20 ABG O2 Content No Result Required. 07/23/20 05:20 ABG Base Excess -4.1 mmol/L (-2-2) L 07/23/20 05:20 Yandel Test Positive 07/23/20 05:20 VBG pH 7.377 (7.310-7.410) 07/01/20 15:43 POC VBG pCO2 40.1 mmHg (38-52) 07/01/20 15:43 POC VBG pO2 42.4 mmHg (28-48) 07/01/20 15:43 VBG HCO3 23.0 mmol/L (23-29) 07/01/20 15:43 VBG O2 Sat (Meet) 77.2 % (70-80) 07/01/20 15:43 VBG Base Excess -2.0 mmol/L (-2-2) 07/01/20 15:43 Patient On Oxygen Yes 07/23/20 05:20 O2 Delivery Device Vent 07/23/20 05:20 Oxygen Flow Rate 40% 07/23/20 05:20 Vent Mode A/c 07/23/20 05:20 Vent Rate 14 07/23/20 05:20 Mechanical Rate Yes 07/23/20 05:20 PEEP 5.0 cmH2O 07/23/20 05:20 Pressure Support Vent 350 07/23/20 05:20 Sodium 137 mmol/L (136-145) 08/11/20 06:26 Potassium 4.1 mmol/L (3.5-5.1) 08/11/20 06:26 Chloride 104 mmol/L (98-107) 08/11/20 06:26 Carbon Dioxide 27 mmol/L (21-32) 08/11/20 06:26 Anion Gap 6 MMOL/L (8-16) L 08/11/20 06:26 BUN 20.6 mg/dL (7-18) H 08/11/20 06:26 Creatinine 0.2 mg/dL (0.55-1.3) L 08/11/20 06:26 Est GFR (CKD-EPI)AfAm 196.46 08/11/20 06:26 Est GFR (CKD-EPI)NonAf 169.51 08/11/20 06:26 POC Glucometer 111 UNITS (80-120) 08/11/20 07:09 Random Glucose 108 mg/dL (74-106) H 08/11/20 06:26 Lactic Acid 1.6 mmol/L (0.4-2.0) 07/24/20 02:15 Calcium 7.3 mg/dL (8.5-10.1) L 08/11/20 06:26 Phosphorus 3.4 mg/dL (2.5-4.9) 08/11/20 06:26 Magnesium 1.9 mg/dL (1.8-2.4) 08/11/20 06:26 Iron 23 ug/dL (50-175) L 07/20/20 06:00 TIBC 88 ug/dL (250-450) L 07/20/20 06:00 Iron Saturation 26 % (17.5-39) 07/20/20 06:00 Unsaturated IBC 65 ug/dL (200-275) L 07/20/20 06:00 Total Bilirubin 1.0 mg/dL (0.2-1) 08/11/20 06:26 Direct Bilirubin 0.3 mg/dL (0.0-0.2) H 07/22/20 06:00 AST 70 U/L (15-37) H 08/11/20 06:26 ALT 129 U/L (13-61) H 08/11/20 06:26 Alkaline Phosphatase 1171 U/L (45-117) H 08/11/20 06:26 Ammonia 38.60 umol/L (11-32) H 07/19/20 13:50 LD Total 242 U/L (84-246) 07/20/20 15:45 Creatine Kinase 38 U/L (26-192) 07/09/20 15:30 Creatine Kinase Index 5.2 % (0.0-5.0) H 07/04/20 06:25 CK-MB (CK-2) 17.0 ng/mL (0.5-3.6) H 07/04/20 06:25 Troponin I < 0.02 ng/ml (0.00-0.05) 07/01/20 14:50 B-Natriuretic Peptide 05332.8 pg/ml (5-125) H 07/04/20 06:25 Total Protein 4.6 g/dl (6.4-8.2) L 08/11/20 06:26 Albumin 1.4 g/dl (3.4-5.0) L 08/11/20 06:26 Lipase 38 U/L (73-393) L 08/09/20 06:00 Tumor Marker AFP 1.8 ng/ml (0.0-8.3) 07/07/20 12:00 Vitamin B12 2423 pg/ml (193-986) H 07/04/20 06:25 Serum Folate 10 ng/mL (3.1-17.5) 07/04/20 06:25 TSH 6.61 uIU/ml (0.358-3.74) H 07/13/20 05:30 Free T4 0.46 ng/dl (0.76-1.46) L 07/13/20 05: Free T3 1.0 pg/ml (2.0-4.4) L 07/13/20 05:30 Serum , Qual Negative 07/01/20 17:00 Urine Color Dk yellow 07/24/20 01:31 Urine Appearance Turbid 07/24/20 01:31 Urine pH 5.5 (5.0-8.0) D 07/24/20 01:31 Ur Specific [place] 1.028 (1.010-1.035) 07/24/20 01:31 Urine Protein 1+ (NEGATIVE) H 07/24/20 01:31 Urine Glucose (UA) Negative (NEGATIVE) 07/24/20 01:31 Urine Ketones Negative (NEGATIVE) 07/24/20 01:31 Urine Blood 3+ (NEGATIVE) H 07/24/20 01:31 Urine Nitrite Positive (NEGATIVE) H 07/24/20 01:31 Urine Bilirubin Negative (NEGATIVE) 07/24/20 01:31 Urine Urobilinogen 0.2 mg/dL (0.2-1.0) 07/24/20 01:31 Ur Leukocyte Esterase 3+ (NEGATIVE) H 07/24/20 01:31 Urine WBC (Auto) 1786 /uL (0-25.8) 07/24/20 01:31 Urine RBC (Auto) 291.4 /uL (0-23.9) 07/20/20 17:30 Urine Casts (Auto) 2 /uL (0-3.1) 07/24/20 01:31 U Pathogenic Cast Auto Negative /lpf (NEGATIVE) 07/20/20 17:30 U Epithel Cells (Auto) 3 /uL (0-25.1) 07/24/20 01:31 U Sm Round Cell (Auto) Non seen 07/20/20 10:15 Urine Bacteria (Auto) 2900 /uL (0-1359) 07/24/20 01:31 Urine Yeast (Auto) Negative (NEGATIVE) 07/20/20 17:30 Urine Osmolality 338 mosm/kg (300-900) 08/05/20 00:00 Ur Random Sodium 20 MMOL/L (40-220) L 08/05/20 00:00 Ur Random Potassium 26.0 MMOL/L (25-125) 08/05/20 00:00 Ur Random Chloride 23 MMOL/L (110-250) L 08/05/20 00:00 Fluid Source Peritoneal 07/27/20 16:15 POC Fluid pH 8.3 (Not Estab.) 07/27/20 16:15 Fluid WBC 59 /mm3 07/27/20 16:15 Fluid RBC 187 /mm3 07/27/20 16:15 Fluid Neutrophils 50 % 07/27/20 16:15 Fluid Lymphocytes 12 % 07/27/20 16:15 Fluid Glucose 113 mg/dL (.) 07/27/20 16:15 Fluid Total Protein 1.0 g/dL (.) 07/27/20 16:15 Fluid Albumin 0.5 g/dL (Not Estab.) 07/27/20 16:15 Body Fluid LDH Source 84 IU/L (.) 07/27/20 16:15 Fluid Amylase 29 U/L (.) 07/27/20 16:15 Fluid Cholesterol 11 mg/dL (.) 07/27/20 16:15 Fluid Triglycerides 23 mg/dL (Not Estab.) 07/27/20 16:15 Pleural Monocytes 13 % 07/27/20 16:15 Pleural Macrophages 24 % 07/27/20 16:15 Pleural Diff Comment 07/27/20 16:15 Stool Occult Blood Positive (NEGATIVE) 07/05/20 14:50 Vancomycin Pre-Dose 14.8 ug/ml (5-10) H 07/25/20 02:15 Opiates Screen Positive ng/ml (XHLDOP=333) A* 07/01/20 17:00 Methadone Screen Negative ng/ml (EWZQRA=160) 07/01/20 17:00 Barbiturate Screen Negative ng/ml (FNSZFZ=712) 07/01/20 17:00 Phencyclidine Screen Negative ng/ml (CUTOFF=25) 07/01/20 17:00 Ur Amphetamines Screen Negative ng/ml (HWFFWN=726) 07/01/20 17:00 MDMA (Ecstasy) Screen Negative ng/ml (VCDCYL=019) 07/01/20 17:00 Benzodiazepines Screen Negative ng/ml (VCNAXG=304) 07/01/20 17:00 Cocaine Screen Negative ng/ml (XQLADI=475) 07/01/20 17:00 U Marijuana (THC) Screen Negative ng/ml (CUTOFF=50) 07/01/20 17:00 Alcohol, Quantitative < 3 mg/dL (0.0-5.0) 07/01/20 14:50 Soluble Liver Ag IgG Ab 1.4 units (0.0-20.0) 07/07/20 12:00 Smooth Musc &[employer] Intrp 4 Units (0-19) 07/07/20 12:00 COVID-19 (ALYSIA) Not detected (Not Detected) 07/01/20 15:14 Hep A IgM Ab Confirm Negative (Negative) 07/07/20 12:00 Hepatitis A Ab Total Negative (Negative) 07/07/20 12:00 Hep Bs Antigen Negative (Negative) 07/07/20 12:00 Hep Bs Antibody Non reactive (.) 07/07/20 12:00 Hep B Core Total Ab Negative (Negative) 07/07/20 12:00 Hep B Core IgM Ab Negative (Negative) 07/07/20 12:00 Hepatitis Be Antibody Negative (Negative) 07/07/20 12:00 Hepatitis Be Antigen Negative (Negative) 07/07/20 12:00 Hepatitis C Genotype (.) 07/07/20 12:00 HIV Ag/Ab Combo Qual Negative (NEGATIVE) 07/02/20 00:54 Blood Type O POSITIVE 07/30/20 08:30 Antibody Screen Negative 07/30/20 08:30 Crossmatch See Detail 07/30/20 08:30 Microbiology 07/27/20 16:15 Peritoneal Fluid KAVITA Preparation - Preliminary 07/27/20 16:15 Peritoneal Fluid Fungal Culture - Preliminary 07/22/20 18:30 Sputum - Endotrachea Suction/Ventilator Fungus Mold Identification - Final Aspergillus [place] 07/27/20 16:15 Peritoneal Fluid AFB Smear Concentration - Final 07/27/20 16:15 Peritoneal Fluid Mycobacterial Culture - Preliminary 07/27/20 16:15 Peritoneal Fluid Gram Stain - Final 07/27/20 16:15 Peritoneal Fluid Body Fluid Culture - Final NO GROWTH OF AEROBIC ORGANISMS AFTER 48 HOURS INCUBATION 07/27/20 16:15 Peritoneal Fluid Anaerobic Culture - Final NO ANAEROBES WERE ISOLATED 07/24/20 03:35 Blood - Peripheral Venous Blood Culture - Final NO GROWTH AFTER 5 DAYS INCUBATION 07/24/20 03:00 Blood - Peripheral Venous Blood Culture - Final NO GROWTH AFTER 5 DAYS INCUBATION 07/24/20 10:32 Urine - Urine Uribe Urine Culture - Final Klebsiella Pneumoniae - Esbl 07/22/20 18:30 Sputum - Endotrachea Suction/Ventilator Gram Stain - Final 07/22/20 18:30 Sputum - Endotrachea Suction/Ventilator Sputum Culture - Final Yeast Like Organism Fungal Isolate: Mold 07/11/20 23:45 Blood - Peripheral Venous Blood Culture - Final NO GROWTH AFTER 5 DAYS INCUBATION 07/11/20 22:00 Sputum - Endotrachea Suction/Ventilator Gram Stain - Final 07/11/20 22:00 Sputum - Endotrachea Suction/Ventilator Sputum Culture - Final Yeast Like Organism 07/11/20 23:45 Urine - Urine - Catheterized Urine Culture - Final Yeast Like Organism Pseudomonas Aeruginosa 07/04/20 17:00 Sputum - Endotrachea Suction/Ventilator Gram Stain - Final 07/04/20 17:00 Sputum - Endotrachea Suction/Ventilator Sputum Culture - Final Yeast Like Organism 07/01/20 15:50 Blood - Peripheral Venous Blood Culture - Final NO GROWTH AFTER 5 DAYS INCUBATION 07/01/20 15:43 Blood - Peripheral Venous Blood Culture - Final NO GROWTH AFTER 5 DAYS INCUBATION 07/01/20 15:50 Urine - Urine Suprapubic Urine Culture - Final Pseudomonas Aeruginosa Escherichia Coli Enterococcus Avium - ....Imaging Chest X-ray: Report Reviewed Problem List - Problems (1) Bowel obstruction Code(s): K56.609 - UNSP INTESTNL OBST, UNSP TO PARTIAL VERSUS COMPLETE OBST (2) Hypothermia Code(s): T68.XXXA - HYPOTHERMIA, INITIAL ENCOUNTER (3) Pneumonia Code(s): J18.9 - PNEUMONIA, UNSPECIFIED ORGANISM (4) SBO (small bowel obstruction) Code(s): K56.609 - UNSP INTESTNL OBST, UNSP TO PARTIAL VERSUS COMPLETE OBST (5) Sepsis Code(s): A41.9 - SEPSIS, UNSPECIFIED ORGANISM Qualifiers: Sepsis type: sepsis due to unspecified organism Sepsis acute organ dysfunction status: unspecified Qualified Code(s): A41.9 - Sepsis, unspecified organism (6) UTI (urinary tract infection) Code(s): N39.0 - URINARY TRACT INFECTION, SITE NOT SPECIFIED Qualifiers: Urinary tract infection type: site unspecified Hematuria presence: with hematuria Qualified Code(s): N39.0 - Urinary tract infection, site not specified; R31.9 - Hematuria, unspecified (7) Alcoholic liver damage Code(s): K70.9 - ALCOHOLIC LIVER DISEASE, UNSPECIFIED (8) Cachexia Code(s): R64 - CACHEXIA (9) Lactic acid acidosis Code(s): E87.2 - ACIDOSIS (10) Substance abuse Code(s): F19.10 - OTHER PSYCHOACTIVE SUBSTANCE ABUSE, UNCOMPLICATED Assessment/Plan Acute respiratory failure on MV s/p trach Sepsis PNA, Likely Aspiration Lt PTX Carbapenem-resistant UTI SBO Ascites s/p drain placement ETOH/Heroin abuse Failure to thrive Severe malnutrition -- Pt alert, without current distress,on vent -- s/p courses of antibiotics -- mild fevers/leukocytosis - continue monitor closely for now, if persists will repeat cultures
--- NOTE | 2020-08-11 16:16 | PN ---
Progress Note, Physician History of Present Illness: AWAKE - Current Medication List Current Medications: Active Medications Amino Acids (Prosource No Carb Liquid Pkt) 30 ml PO DAILY [facility] Last Admin: 08/11/20 09:25 Dose: 30 ml Documented by: Ascorbic Acid (Vitamin C -) 500 mg PO DAILY [facility] Last Admin: 08/11/20 09:05 Dose: 500 mg Documented by: Collagenase (Santyl -) 1 applic TP DAILY [facility]; Protocol Last Admin: 08/11/20 09:06 Dose: 1 applic Documented by: Dextrose (D50w (Vial) -) 12.5 gm IVPUSH PRN PRN PRN Reason: HYPOGLYCEMIA Last Admin: 07/31/20 06:34 Dose: 12.5 gm Documented by: Diazepam (Valium -) 2 mg PO 2100 PRN PRN Reason: INSOMNIA Last Admin: 08/11/20 07:15 Dose: 2 mg Documented by: Famotidine (Pepcid) 20 mg PEG DAILY [facility] Last Admin: 08/11/20 09:06 Dose: 20 mg Documented by: Folic Acid (Folic Acid -) 1 mg NGT DAILY [facility] Last Admin: 08/11/20 09:06 Dose: 1 mg Documented by: Heparin Sodium (Porcine) (Heparin -) 5,000 unit SQ BID [facility] Last Admin: 08/11/20 09:05 Dose: 5,000 unit Documented by: Hydromorphone HCl (Dilaudid Vial -) 1 mg IVPUSH Q3H PRN PRN Reason: PAIN LEVEL 4 - 6 Last Admin: 08/11/20 10:51 Dose: 1 mg Documented by: Ketorolac Tromethamine (Toradol Injection -) 15 mg IVPUSH Q12H PRN PRN Reason: PAIN LEVEL 1-5 Stop: 08/14/20 11:26 Lactobacillus Acidophilus (Bacid -) 1 tab PEG DAILY [facility] Last Admin: 08/11/20 09:05 Dose: 1 tab Documented by: Lidocaine (Lidoderm Patch -) 1 patch TP DAILY [facility] Last Admin: 08/11/20 09:06 Dose: 1 patch Documented by: Lidocaine HCl (Xylocaine 5% Top. Ointment) 1 applic TP DAILY [facility] Last Admin: 08/11/20 09:07 Dose: 1 applic Documented by: Miscellaneous (Lidoderm Patch Removal) 1 each MC DAILY@2200 [facility] Last Admin: 08/10/20 21:37 Dose: 1 each Documented by: Morphine Sulfate (Morphine Sulfate) 1 mg IVPUSH Q6H PRN PRN Reason: PAIN LEVEL 1-3 Last Admin: 08/11/20 07:14 Dose: 1 mg Documented by: Multi-Ingredient Ointment (Zinc Oxide) 1 applic TP DAILY [facility] Last Admin: 08/11/20 09:07 Dose: 1 applic Documented by: Multivitamins/Minerals (Certavite-Antioxidant Liquid) 15 ml NGT DAILY [facility] Last Admin: 08/11/20 09:05 Dose: 15 ml Documented by: Thiamine HCl (Vitamin B1 Injection -) 100 mg IVPB DAILY [facility] Last Admin: 08/11/20 09:05 Dose: 100 mg Documented by: - Objective Vital Signs: Vital Signs Temperature 99.6 F 08/11/20 14:00 Pulse Rate 130 H 08/11/20 14:00 Respiratory Rate 23 H 08/11/20 15:57 Blood Pressure 120/83 08/11/20 14:00 O2 Sat by Pulse Oximetry (%) 100 08/11/20 15:57 Constitutional: Yes: No Distress, Cachectic HENT: Yes: Atraumatic Cardiovascular: Yes: Regular Rate and Rhythm Respiratory: Yes: Rhonchi, Wheezes, Other (chest tube) Gastrointestinal: Yes: Normal Bowel Sounds, Other Extremities: Yes: WNL Neurological: Yes: Alert Labs: CBC, BMP 08/11/20 06:26 08/11/20 06:26 INR, PTT INR 1.52 (0.83-1.09) H 08/08/20 06:15 Fibrinogen 344.0 mg/dL (238-498) 07/21/20 06:00 Problem List - Problems (1) At risk for electrolyte imbalance Assessment/Plan: MONITOR AND REPLACE Code(s): Z91.89 - OTH PERSONAL RISK FACTORS, NOT ELSEWHERE CLASSIFIED (2) SBO (small bowel obstruction) Assessment/Plan: PEG IN PLACE Code(s): K56.609 - UNSP INTESTNL OBST, UNSP TO PARTIAL VERSUS COMPLETE OBST (3) Sepsis Assessment/Plan: OFF OF ABX STABLE Code(s): A41.9 - SEPSIS, UNSPECIFIED ORGANISM Qualifiers: Sepsis type: sepsis due to unspecified organism Sepsis acute organ dysfunction status: unspecified Qualified Code(s): A41.9 - Sepsis, unspecified organism (4) Alcoholic liver damage Code(s): K70.9 - ALCOHOLIC LIVER DISEASE, UNSPECIFIED (5) Hypoalbuminemia Code(s): E88.09 - OTH DISORDERS OF PLASMA-PROTEIN METABOLISM, NEC (6) Hyponatremia Code(s): E87.1 - HYPO-OSMOLALITY AND HYPONATREMIA (7) Liver cirrhosis, alcoholic Code(s): K70.30 - ALCOHOLIC CIRRHOSIS OF LIVER WITHOUT ASCITES (8) Ischemic hepatitis Code(s): K75.9 - INFLAMMATORY LIVER DISEASE, UNSPECIFIED (9) Respiratory failure Assessment/Plan: S/P TRACH ON VENT Code(s): J96.90 - RESPIRATORY FAILURE, UNSP, UNSP W HYPOXIA OR HYPERCAPNIA (10) UTI (urinary tract infection) Assessment/Plan: OFF OF ABX Code(s): N39.0 - URINARY TRACT INFECTION, SITE NOT SPECIFIED Qualifiers: Urinary tract infection type: site unspecified Hematuria presence: with hematuria Qualified Code(s): N39.0 - Urinary tract infection, site not specified; R31.9 - Hematuria, unspecified (11) Elevated LFTs Assessment/Plan: IMPROVING MONITOR Code(s): R79.89 - OTHER SPECIFIED ABNORMAL FINDINGS OF BLOOD CHEMISTRY (12) Hypothermia Assessment/Plan: stable PRN BEAR HUGGER Code(s): T68.XXXA - HYPOTHERMIA, INITIAL ENCOUNTER (13) Skin abrasion Assessment/Plan: AIR MATTRESS helping in healing Code(s): T14.8XXA - OTHER INJURY OF UNSPECIFIED BODY REGION, INITIAL ENCOUNTER (14) Sacral ulcer Code(s): L98.429 - NON-PRESSURE CHRONIC ULCER OF BACK WITH UNSPECIFIED SEVERITY (15) Severe malnutrition Assessment/Plan: S/P PEG GETTING FEEDS Code(s): E43 - UNSPECIFIED SEVERE PROTEIN-CALORIE MALNUTRITION (16) Pneumothorax on left Assessment/Plan: CHEST TUBE IN PLACE Code(s): J93.9 - PNEUMOTHORAX, UNSPECIFIED (17) Hypotension Assessment/Plan: STILL ON PRESSOR SUPPORT Code(s): I95.9 - HYPOTENSION, UNSPECIFIED Assessment/Plan critical care time spent in reviewing chart, evaluating patient and formulating plan [address] octavio moses
[2020-08-11] MEDS: LIDOCAINE PATCH REMOVAL MC SCH (21:05)
[2020-08-12] MEDS: HYDROmorphone HCl 2 MG/ML VIAL IVPUSH PRN ×3 (05:29→21:58)
[2020-08-12 07:00] LABS: HEMATOCRIT 22.1 % (32.4-45.2); HEMOGLOBIN 7.5 GM/dL (10.7-15.3); MCH 31.3 pg (25.7-33.7); MCHC 33.8 g/dl (32.0-36.0); MEAN CELL VOLUME 92.6 fl (80-96); MEAN PLT VOLUME 7.8 fl (7.5-11.1); PLATELET COUNT 347 K/MM3 (134-434); RBC 2.39 M/mm3 (3.60-5.2); RDW 19.5 % (11.6-15.6); WHITE BLOOD COUNT 9.8 K/mm3 (4.0-10.0)
[2020-08-12 07:38] LABS: ALBUMIN 1.3 g/dl (3.4-5.0); ANION GAP 4 MMOL/L (8-16); BLOOD UREA NITROGEN 16.3 mg/dL (7-18); CALCIUM 7.1 mg/dL (8.5-10.1); CHLORIDE 104 mmol/L (98-107); CO2 29 mmol/L (21-32); CREATININE < 0.2 mg/dL (0.55-1.3); GLUCOSE,RANDOM 89 mg/dL (74-106); PHOSPHOROUS 2.7 mg/dL (2.5-4.9); POTASSIUM 4.2 mmol/L (3.5-5.1); SODIUM 137 mmol/L (136-145)
[2020-08-12 07:52] LABS: BILIRUBIN,TOTAL 0.5 mg/dL (0.2-1); MAGNESIUM 1.7 mg/dL (1.8-2.4); SGOT/AST 122 U/L (15-37); SGPT/ALT 118 U/L (13-61); TOT PROT 4.4 g/dl (6.4-8.2)
[2020-08-12 07:56] LABS: ALK PHOS 1060 U/L (45-117)
[2020-08-12] MEDS ORDERED: PT OWN MED DRAWER 7, Y5N ONE (08:49)
[2020-08-12] MEDS: LACTOBACILLUS ACIDOPHILUS 1 TABLET PEG SCH (09:46)
[2020-08-12] MEDS: HEPARIN NA (PORCINE) 5,000 UNITS/ML 1ML VIAL SQ SCH ×2 (09:47→21:58)
[2020-08-12] MEDS: FOLIC ACID 1 MG TABLET (FP) NGT SCH (09:47)
[2020-08-12] MEDS: MULTIVIT-MINERALS ORAL LIQUID NGT SCH (09:47)
[2020-08-12] MEDS: FAMOTIDINE 40 MG/5 ML ORAL SUSPENSION PEG SCH (09:48)
[2020-08-12] MEDS: AMINO ACIDS/PROTEIN HYDROLYS 30 ML LIQUID.PKT PO SCH (09:48)
[2020-08-12] MEDS: COLLAGENASE CLOSTRIDIUM HIST. 30 GRAMS TUBE TP SCH (09:48)
[2020-08-12] MEDS: LIDOCAINE 5% TOPICAL PATCH TP SCH (09:48)
[2020-08-12] MEDS: LIDOCAINE HCL 5% TOP OINTMENT 50 GM TUBE TP SCH (09:49)
[2020-08-12] MEDS: THIAMINE HCL 200 MG/2 ML VIAL IVPB SCH (09:49)
[2020-08-12] MEDS: ASCORBIC ACID 500 MG TABLET (FP) PO SCH (09:49)
[2020-08-12] MEDS: ZINC OXIDE 20% TOPICAL OINTMENT 30 GM TUBE TP SCH (09:50)
--- NOTE | 2020-08-12 10:57 | PN ---
Physical Exam: SUBJECTIVE: Patient seen and examined at bedside. Resting comfortably, no acute events overnight although she did have a temp of 99.5. Communicating with pen/paper, endorses dry mouth. OBJECTIVE: Vital Signs Period Temp Pulse Resp BP Sys/Campbell Pulse Ox Last 24 Hr 99.0 F-99.6 F 98-130 15-27 101-122/73-86 97-100 GENERAL: AOx3 HEAD: Normal with no signs of trauma, temporal wasting NECK: Tracheostomy tube in place LUNGS: Breath sounds diminished on right basilar, crackles on right base, absent breath sounds on left lung. clear to auscultation bilaterally, HEART: regular rhythm, S1, S2 without murmur, rub or gallop. ABDOMEN: peg tube Soft, nontender, nondistended, normoactive bowel sounds, no guarding, rebound, no hepatosplenomegaly, no masses. EXTREMITIES: 2+ pulses, warm, well-perfused, no edema. NEUROLOGICAL: Cranial nerves II through XII grossly intact, gait not observed. PSYCH: Normal mood, normal affect. SKIN: Warm, dry, normal turgor, sacral ulcer (unstagable), peritoneal ulcer Laboratory Results - last 24 hr 08/11/20 08/12/20 08/12/20 16:53 05:37 06:11 WBC 9.8 RBC 2.39 L Hgb 7.5 L Hct 22.1 L D MCV 92.6 MCH 31.3 MCHC 33.8 RDW 19.5 H Plt Count 347 MPV 7.8 Sodium Potassium Chloride Carbon Dioxide Anion Gap BUN Creatinine Est GFR (CKD-EPI)AfAm Est GFR (CKD-EPI)NonAf POC Glucometer 101 115 Random Glucose Calcium Phosphorus Magnesium Total Bilirubin AST ALT Alkaline Phosphatase Total Protein Albumin 08/12/20 06:11 WBC RBC Hgb Hct MCV MCH MCHC RDW Plt Count MPV Sodium 137 Potassium 4.2 Chloride 104 Carbon Dioxide 29 Anion Gap 4 L BUN 16.3 Creatinine < 0.2 L Est GFR (CKD-EPI)AfAm 196.46 Est GFR (CKD-EPI)NonAf 169.51 POC Glucometer Random Glucose 89 Calcium 7.1 L Phosphorus 2.7 Magnesium 1.7 L Total Bilirubin 0.5 AST 122 H ALT 118 H Alkaline Phosphatase 1060 H Total Protein 4.4 L Albumin 1.3 L Active Medications Generic Name Dose Route Start Last Admin Trade Name Freq PRN Reason Stop Dose Admin Amino Acids 30 ml 08/08/20 12:45 08/12/20 09:48 Prosource No Carb Liquid Pkt PO 30 ml DAILY [facility] Administration Ascorbic Acid 500 mg 07/27/20 13:00 08/12/20 09:49 Vitamin C - PO 500 mg DAILY [facility] Administration Collagenase 1 applic 08/05/20 19:30 08/12/20 09:48 Santyl - TP 1 applic DAILY [facility] Administration Protocol Dextrose 12.5 gm 07/08/20 07:08 07/31/20 06:34 D50w (Vial) - IVPUSH 12.5 gm PRN PRN Administration HYPOGLYCEMIA Diazepam 2 mg 08/10/20 10:41 08/11/20 07:15 Valium - PO 2 mg 2100 PRN Administration INSOMNIA Famotidine 20 mg 08/04/20 10:45 08/12/20 09:48 Pepcid PEG 20 mg DAILY [facility] Administration Folic Acid 1 mg 07/06/20 10:00 08/12/20 09:47 Folic Acid - NGT 1 mg DAILY [facility] Administration Heparin Sodium (Porcine) 5,000 unit 07/20/20 10:00 08/12/20 09:47 Heparin - SQ 5,000 unit BID [facility] Administration Hydromorphone HCl 1 mg 07/26/20 13:39 08/12/20 09:57 Dilaudid Vial - IVPUSH 1 mg Q3H PRN Administration PAIN LEVEL 4 - 6 Ketorolac Tromethamine 15 mg 08/10/20 10:36 Toradol Injection - IVPUSH 08/14/20 11:26 Q12H PRN PAIN LEVEL 1-5 Lactobacillus Acidophilus 1 tab 08/08/20 12:45 08/12/20 09:46 Bacid - PEG 1 tab DAILY [facility] Administration Lidocaine 1 patch 08/09/20 11:30 08/12/20 09:48 Lidoderm Patch - TP 1 patch DAILY [facility] Administration Lidocaine HCl 1 applic 07/25/20 21:50 08/12/20 09:49 Xylocaine 5% Top. Ointment TP 1 applic DAILY [facility] Administration Miscellaneous 1 each 08/09/20 23:00 08/11/20 21:05 Lidoderm Patch Removal MC 1 each DAILY@2200 [facility] Administration Morphine Sulfate 1 mg 08/08/20 10:43 10/10/20 17:18 Morphine Sulfate IVPUSH 1 mg Q6H PRN Administration PAIN LEVEL 1-3 Multi-Ingredient Ointment 1 applic 07/19/20 13:30 08/12/20 09:50 Zinc Oxide TP 1 applic DAILY [facility] Administration Multivitamins/Minerals 15 ml 07/06/20 11:45 08/12/20 09:47 Certavite-Antioxidant Liquid NGT 15 ml DAILY [facility] Administration Thiamine HCl 100 mg 07/11/20 12:45 08/12/20 09:49 Vitamin B1 Injection - IVPB 100 mg DAILY [facility] Administration ASSESSMENT/PLAN: 35F with PMH of malnutrition 2/2 bulimia and polysubstance use disorder, cirrhosis, & heroin abuse, in ICU with sepsis and acute hypoxic respiratory failure, now s/p trach, abdominal peritoneal drain, PEG placement, and L chest tube #[employer] - AOx3, communicates with pen/paper - Pain control on Dilaudid, Morphine 1mg, Fentanyl, Toradol - Diazepam for insomnia - Keppra 1000mg 1x for seizure prophylaxis after suspected seizure yesterday #CVS - MAP stable, no pressor support #Resp - Tracheostomy 07/25, downsize trach tube at LTAC - L Pneumothorax stable pneumothorax, s/p chest tube and subsequent re-inflation - CXR tomorrow to assess pneumothorax #GI - NPO except for ice chips - Refeeding Syndrome - Transaminitis, increased from 70/128 to 122/118 today - Dietary consulted for tube feeds, Jevity w/ Prosource to reduce volume and increase calories #ID - Resolved septic shock, no abx currently #Heme - Hg dropped 8.9 -> 7.5 today, will recheck in AM and transfuse if <7 #Derm - Multiple Sacral Ulcers (stage 4) - Daily wound care, air mattress, w/ frequent turns - Off-loading to all bony areas (heels, ankles, hips and tailbone) with Allevyn/Optifoam #FEN - Jevity w/ Prosource to reduce volume and increase calories #Prophylaxis - Heparin 5k BID #Dispo - Cont to monitor in ICU, pending transfer to LTAC Visit type - Emergency Visit Emergency Visit: Yes ED Registration Date: 07/01/20 Care time: The patient presented to the Emergency Department on the above date and was hospitalized for further evaluation of their emergent condition. - New Patient This patient is new to me today: No - Critical Care Critical Care patient: No Total Critical Care Time (in minutes): 37 Critical Care Statement: The care of this patient involved high complexity decision making to prevent further life threatening deterioration of the patient's condition and/or to evaluate & treat vital organ system(s) failure or risk of failure. ATTENDING PHYSICIAN STATEMENT I saw and evaluated the patient. I reviewed the resident's note and discussed the case with the resident. I agree with the resident's findings and plan as documented. SUBJECTIVE: OBJECTIVE: ASSESSMENT AND PLAN:
--- NOTE | 2020-08-12 11:55 | PN ---
Teaching Attending Note Name of Resident: Bird Harris ATTENDING PHYSICIAN STATEMENT I saw and evaluated the patient. I reviewed the resident's note and discussed the case with the resident. I agree with the resident's findings and plan as documented. SUBJECTIVE: Patient seen and examined in the ICU. Vented, awake and interactive. Pain is about the same. No pressors. CXR: None today OBJECTIVE: Intake & Output 08/09/20 08/10/20 08/11/20 08/12/20 23:59 23:59 23:59 23:59 Intake Total 1999 1620 1300 720 Output Total 850 540 900 50 Balance 1150 1080 400 670 Weight 73 lb 13.678 oz 73 lb 73 lb 73 lb Last Vital Signs Temp Pulse Resp BP Pulse Ox 99.0 F 116 H 22 H 101/78 100 08/12/20 08:00 08/12/20 10:00 08/12/20 10:00 08/12/20 10:00 08/12/20 10:00 Active Medications Amino Acids (Prosource No Carb Liquid Pkt) 30 ml PO DAILY [facility] Last Admin: 08/12/20 09:48 Dose: 30 ml Documented by: Ascorbic Acid (Vitamin C -) 500 mg PO DAILY [facility] Last Admin: 08/12/20 09:49 Dose: 500 mg Documented by: Collagenase (Santyl -) 1 applic TP DAILY [facility]; Protocol Last Admin: 08/12/20 09:48 Dose: 1 applic Documented by: Dextrose (D50w (Vial) -) 12.5 gm IVPUSH PRN PRN PRN Reason: HYPOGLYCEMIA Last Admin: 07/31/20 06:34 Dose: 12.5 gm Documented by: Diazepam (Valium -) 2 mg PO 2100 PRN PRN Reason: INSOMNIA Last Admin: 08/11/20 07:15 Dose: 2 mg Documented by: Famotidine (Pepcid) 20 mg PEG DAILY [facility] Last Admin: 08/12/20 09:48 Dose: 20 mg Documented by: Folic Acid (Folic Acid -) 1 mg NGT DAILY [facility] Last Admin: 08/12/20 09:47 Dose: 1 mg Documented by: Heparin Sodium (Porcine) (Heparin -) 5,000 unit SQ BID [facility] Last Admin: 08/12/20 09:47 Dose: 5,000 unit Documented by: Hydromorphone HCl (Dilaudid Vial -) 1 mg IVPUSH Q3H PRN PRN Reason: PAIN LEVEL 4 - 6 Last Admin: 08/12/20 09:57 Dose: 1 mg Documented by: Ketorolac Tromethamine (Toradol Injection -) 15 mg IVPUSH Q12H PRN PRN Reason: PAIN LEVEL 1-5 Stop: 08/14/20 11:26 Lactobacillus Acidophilus (Bacid -) 1 tab PEG DAILY [facility] Last Admin: 08/12/20 09:46 Dose: 1 tab Documented by: Lidocaine (Lidoderm Patch -) 1 patch TP DAILY [facility] Last Admin: 08/12/20 09:48 Dose: 1 patch Documented by: Lidocaine HCl (Xylocaine 5% Top. Ointment) 1 applic TP DAILY [facility] Last Admin: 08/12/20 09:49 Dose: 1 applic Documented by: Miscellaneous (Lidoderm Patch Removal) 1 each MC DAILY@2200 [facility] Last Admin: 08/11/20 21:05 Dose: 1 each Documented by: Morphine Sulfate (Morphine Sulfate) 1 mg IVPUSH Q6H PRN PRN Reason: PAIN LEVEL 1-3 Last Admin: 08/11/20 17:18 Dose: 1 mg Documented by: Multi-Ingredient Ointment (Zinc Oxide) 1 applic TP DAILY [facility] Last Admin: 08/12/20 09:50 Dose: 1 applic Documented by: Multivitamins/Minerals (Certavite-Antioxidant Liquid) 15 ml NGT DAILY [facility] Last Admin: 08/12/20 09:47 Dose: 15 ml Documented by: Thiamine HCl (Vitamin B1 Injection -) 100 mg IVPB DAILY [facility] Last Admin: 08/12/20 09:49 Dose: 100 mg Documented by: Gen: vented, awake and alert, cachectic Heart: RRR Lung: Vented, scattered rhonchi, Left pleural catheter Abd: soft, (+) BS< (+) GT Ext: no edema Laboratory Results - last 24 hr 08/11/20 08/12/20 08/12/20 16:53 05:37 06:11 WBC 9.8 RBC 2.39 L Hgb 7.5 L Hct 22.1 L D MCV 92.6 MCH 31.3 MCHC 33.8 RDW 19.5 H Plt Count 347 MPV 7.8 Sodium Potassium Chloride Carbon Dioxide Anion Gap BUN Creatinine Est GFR (CKD-EPI)AfAm Est GFR (CKD-EPI)NonAf POC Glucometer 101 115 Random Glucose Calcium Phosphorus Magnesium Total Bilirubin AST ALT Alkaline Phosphatase Total Protein Albumin 08/12/20 06:11 WBC RBC Hgb Hct MCV MCH MCHC RDW Plt Count MPV Sodium 137 Potassium 4.2 Chloride 104 Carbon Dioxide 29 Anion Gap 4 L BUN 16.3 Creatinine < 0.2 L Est GFR (CKD-EPI)AfAm 196.46 Est GFR (CKD-EPI)NonAf 169.51 POC Glucometer Random Glucose 89 Calcium 7.1 L Phosphorus 2.7 Magnesium 1.7 L Total Bilirubin 0.5 AST 122 H ALT 118 H Alkaline Phosphatase 1060 H Total Protein 4.4 L Albumin 1.3 L ASSESSMENT AND PLAN: Acute Hypoxic Respiratory Failure s/p Tracheostomy Pneumonia likely Aspiration UTI Sepsis Hyponatremia Small Bowel Obstruction Ascites s/p Peritoneal drain placement Alcohol/Heroin Abuse Anemia/Thrombocytopenia Failure to Thrive Severe Protein Calorie Malnutrition Refeeding Syndrome - Maintain pigtail to suction (-30) : Check CXR in AM - pain control : Consult Dr Parra - Nutritional support - replete lytes - ABX per ID - Hold spontaneous breathing trials due to PTX - DVT/GI prophylaxis - continue ICU monitoring Pending LTAC approval Dr Babb
--- NOTE | 2020-08-12 17:14 | PN ---
Progress Note, Physician History of Present Illness: Pt alert, responsive, without acute distress. Temp of 99F. - Current Medication List Current Medications: Active Medications Amino Acids (Prosource No Carb Liquid Pkt) 30 ml PO DAILY [facility] Last Admin: 08/12/20 09:48 Dose: 30 ml Documented by: Ascorbic Acid (Vitamin C -) 500 mg PO DAILY [facility] Last Admin: 08/12/20 09:49 Dose: 500 mg Documented by: Collagenase (Santyl -) 1 applic TP DAILY [facility]; Protocol Last Admin: 08/12/20 09:48 Dose: 1 applic Documented by: Dextrose (D50w (Vial) -) 12.5 gm IVPUSH PRN PRN PRN Reason: HYPOGLYCEMIA Last Admin: 07/31/20 06:34 Dose: 12.5 gm Documented by: Diazepam (Valium -) 2 mg PO 2100 PRN PRN Reason: INSOMNIA Last Admin: 08/11/20 07:15 Dose: 2 mg Documented by: Famotidine (Pepcid) 20 mg PEG DAILY [facility] Last Admin: 08/12/20 09:48 Dose: 20 mg Documented by: Folic Acid (Folic Acid -) 1 mg NGT DAILY [facility] Last Admin: 08/12/20 09:47 Dose: 1 mg Documented by: Heparin Sodium (Porcine) (Heparin -) 5,000 unit SQ BID [facility] Last Admin: 08/12/20 09:47 Dose: 5,000 unit Documented by: Hydromorphone HCl (Dilaudid Vial -) 1 mg IVPUSH Q3H PRN PRN Reason: PAIN LEVEL 4 - 6 Last Admin: 08/12/20 09:57 Dose: 1 mg Documented by: Ketorolac Tromethamine (Toradol Injection -) 15 mg IVPUSH Q12H PRN PRN Reason: PAIN LEVEL 1-5 Stop: 08/14/20 11:26 Lactobacillus Acidophilus (Bacid -) 1 tab PEG DAILY [facility] Last Admin: 08/12/20 09:46 Dose: 1 tab Documented by: Lidocaine (Lidoderm Patch -) 1 patch TP DAILY [facility] Last Admin: 08/12/20 09:48 Dose: 1 patch Documented by: Lidocaine HCl (Xylocaine 5% Top. Ointment) 1 applic TP DAILY [facility] Last Admin: 08/12/20 09:49 Dose: 1 applic Documented by: Miscellaneous (Lidoderm Patch Removal) 1 each MC DAILY@2200 [facility] Last Admin: 08/11/20 21:05 Dose: 1 each Documented by: Morphine Sulfate (Morphine Sulfate) 1 mg IVPUSH Q6H PRN PRN Reason: PAIN LEVEL 1-3 Last Admin: 08/11/20 17:18 Dose: 1 mg Documented by: Multi-Ingredient Ointment (Zinc Oxide) 1 applic TP DAILY [facility] Last Admin: 08/12/20 09:50 Dose: 1 applic Documented by: Multivitamins/Minerals (Certavite-Antioxidant Liquid) 15 ml NGT DAILY [facility] Last Admin: 08/12/20 09:47 Dose: 15 ml Documented by: Thiamine HCl (Vitamin B1 Injection -) 100 mg IVPB DAILY [facility] Last Admin: 08/12/20 09:49 Dose: 100 mg Documented by: - Objective Vital Signs: Vital Signs Temperature 99.0 F 08/12/20 16:00 Pulse Rate 133 H 08/12/20 16:00 Respiratory Rate 15 08/12/20 16:00 Blood Pressure 110/83 08/12/20 16:00 O2 Sat by Pulse Oximetry (%) 96 08/12/20 16:00 Constitutional: Yes: No Distress, Cachectic Cardiovascular: Yes: Tachycardia Respiratory: Yes: Rhonchi, Other (Lt chest catheter) Gastrointestinal: Yes: Normal Bowel Sounds Neurological: Yes: Alert Labs: CBC, BMP 08/12/20 06:11 08/12/20 06:11 INR, PTT INR 1.52 (0.83-1.09) H 08/08/20 06:15 Fibrinogen 344.0 mg/dL (238-498) 07/21/20 06:00 Microbiology 07/27/20 16:15 Peritoneal Fluid KAVITA Preparation - Preliminary 07/27/20 16:15 Peritoneal Fluid Fungal Culture - Preliminary 07/22/20 18:30 Sputum - Endotrachea Suction/Ventilator Fungus Mold Identification - Final Aspergillus [place] 07/27/20 16:15 Peritoneal Fluid AFB Smear Concentration - Final 07/27/20 16:15 Peritoneal Fluid Mycobacterial Culture - Preliminary 07/27/20 16:15 Peritoneal Fluid Gram Stain - Final 07/27/20 16:15 Peritoneal Fluid Body Fluid Culture - Final NO GROWTH OF AEROBIC ORGANISMS AFTER 48 HOURS INCUBATION 07/27/20 16:15 Peritoneal Fluid Anaerobic Culture - Final NO ANAEROBES WERE ISOLATED 07/24/20 03:35 Blood - Peripheral Venous Blood Culture - Final NO GROWTH AFTER 5 DAYS INCUBATION 07/24/20 03:00 Blood - Peripheral Venous Blood Culture - Final NO GROWTH AFTER 5 DAYS INCUBATION 07/24/20 10:32 Urine - Urine Uribe Urine Culture - Final Klebsiella Pneumoniae - Esbl 07/22/20 18:30 Sputum - Endotrachea Suction/Ventilator Gram Stain - Final 07/22/20 18:30 Sputum - Endotrachea Suction/Ventilator Sputum Culture - Final Yeast Like Organism Fungal Isolate: Mold 07/11/20 23:45 Blood - Peripheral Venous Blood Culture - Final NO GROWTH AFTER 5 DAYS INCUBATION 07/11/20 22:00 Sputum - Endotrachea Suction/Ventilator Gram Stain - Final 07/11/20 22:00 Sputum - Endotrachea Suction/Ventilator Sputum Culture - Final Yeast Like Organism 07/11/20 23:45 Urine - Urine - Catheterized Urine Culture - Final Yeast Like Organism Pseudomonas Aeruginosa 07/04/20 17:00 Sputum - Endotrachea Suction/Ventilator Gram Stain - Final 07/04/20 17:00 Sputum - Endotrachea Suction/Ventilator Sputum Culture - Final Yeast Like Organism 07/01/20 15:50 Blood - Peripheral Venous Blood Culture - Final NO GROWTH AFTER 5 DAYS INCUBATION 07/01/20 15:43 Blood - Peripheral Venous Blood Culture - Final NO GROWTH AFTER 5 DAYS INCUBATION 07/01/20 15:50 Urine - Urine Suprapubic Urine Culture - Final Pseudomonas Aeruginosa Escherichia Coli Enterococcus Avium Problem List - Problems (1) Bowel obstruction Code(s): K56.609 - UNSP INTESTNL OBST, UNSP TO PARTIAL VERSUS COMPLETE OBST (2) Hypothermia Code(s): T68.XXXA - HYPOTHERMIA, INITIAL ENCOUNTER (3) Pneumonia Code(s): J18.9 - PNEUMONIA, UNSPECIFIED ORGANISM (4) SBO (small bowel obstruction) Code(s): K56.609 - UNSP INTESTNL OBST, UNSP TO PARTIAL VERSUS COMPLETE OBST (5) Sepsis Code(s): A41.9 - SEPSIS, UNSPECIFIED ORGANISM Qualifiers: Sepsis type: sepsis due to unspecified organism Sepsis acute organ dysfunction status: unspecified Qualified Code(s): A41.9 - Sepsis, unspecified organism (6) UTI (urinary tract infection) Code(s): N39.0 - URINARY TRACT INFECTION, SITE NOT SPECIFIED Qualifiers: Urinary tract infection type: site unspecified Hematuria presence: with hematuria Qualified Code(s): N39.0 - Urinary tract infection, site not specified; R31.9 - Hematuria, unspecified (7) Alcoholic liver damage Code(s): K70.9 - ALCOHOLIC LIVER DISEASE, UNSPECIFIED (8) Cachexia Code(s): R64 - CACHEXIA (9) Lactic acid acidosis Code(s): E87.2 - ACIDOSIS (10) Substance abuse Code(s): F19.10 - OTHER PSYCHOACTIVE SUBSTANCE ABUSE, UNCOMPLICATED Assessment/Plan Acute respiratory failure on MV s/p trach Sepsis PNA, Likely Aspiration Lt PTX Carbapenem-resistant UTI SBO Ascites s/p drain placement ETOH/Heroin abuse Failure to thrive Severe malnutrition -- Pt alert, without current distress,on vent -- mild intermittent temp elevations, wbc down to normal today -- continue monitor off of antibiotics, s/p multiple courses -- repeat cultures if spiking temps -- consider repeat respiratory cultures (previous +aspergillus sp.)
[2020-08-12] MEDS: diazePAM 2 MG TABLET PO PRN (21:58)
[2020-08-12] MEDS: LIDOCAINE PATCH REMOVAL MC SCH (22:00)
[2020-08-12] MEDS ORDERED: DEXTROSE 50%-WATER - 25 GM/50 ML VIAL IVPUSH ONE (22:43)
[2020-08-12] MEDS ORDERED: DEXTROSE 50%-WATER - 25 GM/50 ML VIAL ONE (22:51)
--- NOTE | 2020-08-12 23:03 | PN ---
Progress Note, Physician History of Present Illness: Pt awake - Current Medication List Current Medications: Active Medications Amino Acids (Prosource No Carb Liquid Pkt) 30 ml PO DAILY [facility] Last Admin: 08/12/20 09:48 Dose: 30 ml Documented by: Ascorbic Acid (Vitamin C -) 500 mg PO DAILY [facility] Last Admin: 08/12/20 09:49 Dose: 500 mg Documented by: Collagenase (Santyl -) 1 applic TP DAILY [facility]; Protocol Last Admin: 08/12/20 09:48 Dose: 1 applic Documented by: Dextrose (D50w (Vial) -) 12.5 gm IVPUSH PRN PRN PRN Reason: HYPOGLYCEMIA Last Admin: 07/31/20 06:34 Dose: 12.5 gm Documented by: Diazepam (Valium -) 2 mg PO 2100 PRN PRN Reason: INSOMNIA Last Admin: 08/12/20 21:58 Dose: 2 mg Documented by: Famotidine (Pepcid) 20 mg PEG DAILY [facility] Last Admin: 08/12/20 09:48 Dose: 20 mg Documented by: Folic Acid (Folic Acid -) 1 mg NGT DAILY [facility] Last Admin: 08/12/20 09:47 Dose: 1 mg Documented by: Heparin Sodium (Porcine) (Heparin -) 5,000 unit SQ BID [facility] Last Admin: 08/12/20 21:58 Dose: 5,000 unit Documented by: Hydromorphone HCl (Dilaudid Vial -) 1 mg IVPUSH Q3H PRN PRN Reason: PAIN LEVEL 4 - 6 Last Admin: 08/12/20 21:58 Dose: 1 mg Documented by: Ketorolac Tromethamine (Toradol Injection -) 15 mg IVPUSH Q12H PRN PRN Reason: PAIN LEVEL 1-5 Stop: 08/14/20 11:26 Lactobacillus Acidophilus (Bacid -) 1 tab PEG DAILY [facility] Last Admin: 08/12/20 09:46 Dose: 1 tab Documented by: Lidocaine (Lidoderm Patch -) 1 patch TP DAILY [facility] Last Admin: 08/12/20 09:48 Dose: 1 patch Documented by: Lidocaine HCl (Xylocaine 5% Top. Ointment) 1 applic TP DAILY [facility] Last Admin: 08/12/20 09:49 Dose: 1 applic Documented by: Miscellaneous (Lidoderm Patch Removal) 1 each MC DAILY@2200 [facility] Last Admin: 08/12/20 22:00 Dose: 1 each Documented by: Morphine Sulfate (Morphine Sulfate) 1 mg IVPUSH Q6H PRN PRN Reason: PAIN LEVEL 1-3 Last Admin: 08/11/20 17:18 Dose: 1 mg Documented by: Multi-Ingredient Ointment (Zinc Oxide) 1 applic TP DAILY [facility] Last Admin: 08/12/20 09:50 Dose: 1 applic Documented by: Multivitamins/Minerals (Certavite-Antioxidant Liquid) 15 ml NGT DAILY [facility] Last Admin: 08/12/20 09:47 Dose: 15 ml Documented by: Thiamine HCl (Vitamin B1 Injection -) 100 mg IVPB DAILY [facility] Last Admin: 08/12/20 09:49 Dose: 100 mg Documented by: - Objective Vital Signs: Vital Signs Temperature 99.0 F 08/12/20 16:00 Pulse Rate 127 H 08/12/20 21:00 Respiratory Rate 22 H 08/12/20 21:00 Blood Pressure 98/69 08/12/20 21:00 O2 Sat by Pulse Oximetry (%) 92 L 08/12/20 21:00 Constitutional: Yes: Cachectic Cardiovascular: Yes: Tachycardia Respiratory: Yes: Diminished Gastrointestinal: Yes: WNL, Normal Bowel Sounds, Soft, Other ((+) PEG) Labs: CBC, BMP 08/12/20 06:11 08/12/20 06:11 INR, PTT INR 1.52 (0.83-1.09) H 08/08/20 06:15 Fibrinogen 344.0 mg/dL (238-498) 07/21/20 06:00 Problem List - Problems (1) Respiratory failure Assessment/Plan: Acute on chronic respiratory failure Multifactorial RLL infiltrates ?Asp pneumonia S/P tracheostomy S/P Pneumothorax EITAN Repeat CXR in am Code(s): J96.90 - RESPIRATORY FAILURE, UNSP, UNSP W HYPOXIA OR HYPERCAPNIA (2) Sepsis Assessment/Plan: Pt is now off antibxs Follow WBC Lactic acidosis Cont IVF UTI vs Aspiration pneumonia Blood culture/urine culture negative to date Code(s): A41.9 - SEPSIS, UNSPECIFIED ORGANISM Qualifiers: Sepsis type: sepsis due to unspecified organism Sepsis acute organ dysfunction status: unspecified Qualified Code(s): A41.9 - Sepsis, unspecified organism (3) Anemia Assessment/Plan: Monitor H/H S/p transfusion PRBC's H/H improved Code(s): D64.9 - ANEMIA, UNSPECIFIED (4) At risk for electrolyte imbalance Assessment/Plan: Electrolytes improved Cont to monitor Code(s): Z91.89 - OTH PERSONAL RISK FACTORS, NOT ELSEWHERE CLASSIFIED (5) Liver cirrhosis, alcoholic Assessment/Plan: Cont to monitor Poor prognosis Code(s): K70.30 - ALCOHOLIC CIRRHOSIS OF LIVER WITHOUT ASCITES (6) Hypoalbuminemia Code(s): E88.09 - OTH DISORDERS OF PLASMA-PROTEIN METABOLISM, NEC (7) Substance abuse Assessment/Plan: Psych consult ?Competency Code(s): F19.10 - OTHER PSYCHOACTIVE SUBSTANCE ABUSE, UNCOMPLICATED (8) Cachexia Assessment/Plan: Due to severe protein malnutrition Code(s): R64 - CACHEXIA (9) Severe malnutrition Code(s): E43 - UNSPECIFIED SEVERE PROTEIN-CALORIE MALNUTRITION (10) Sacral ulcer Assessment/Plan: Surgical consult noted Cont wound care No surgical intervention at this time Code(s): L98.429 - NON-PRESSURE CHRONIC ULCER OF BACK WITH UNSPECIFIED SEVERITY (11) SBO (small bowel obstruction) Assessment/Plan: Surgical consult noted Cont NPO Cont IVF Monitor serial abdominal xrays Monitor hypoglycemia CT scan abd showed probable anasacra/ascites Pt now on enteral feeds Code(s): K56.609 - UNSP INTESTNL OBST, UNSP TO PARTIAL VERSUS COMPLETE OBST
[2020-08-13] MEDS ORDERED: METOPROLOL TARTRATE 5 MG/5 ML VIAL IVPUSH ONE (00:41)
[2020-08-13] MEDS ORDERED: IBUPROFEN 400 MG TABLET (FP) PO ONE (05:15)
[2020-08-13] MEDS ORDERED: SODIUM CHLORIDE 250 ML IV STA (05:21)
[2020-08-13] MEDS ORDERED: DEXTROSE 5%-NORMAL SALINE 500 ML IV ONE (05:58)
[2020-08-13 07:33] LABS: BASO % 0.2 % (0-2.0); HEMATOCRIT 20.8 % (32.4-45.2); HEMOGLOBIN 6.7 GM/dL (10.7-15.3); LYMPH % 1.4 % (8-40); MCH 31.3 pg (25.7-33.7); MCHC 32.5 g/dl (32.0-36.0); MEAN CELL VOLUME 96.4 fl (80-96); MONO % 1.1 % (3.8-10.2); NEUT % 97.3 % (42.8-82.8); PLATELET COUNT 399 K/MM3 (134-434); RBC 2.15 M/mm3 (3.60-5.2); RDW 19.4 % (11.6-15.6)
[2020-08-13 08:13] LABS: ALBUMIN 1.2 g/dl (3.4-5.0); BILIRUBIN,TOTAL 0.5 mg/dL (0.2-1); BLOOD UREA NITROGEN 22.7 mg/dL (7-18); CREATININE 0.3 mg/dL (0.55-1.3); MAGNESIUM 1.6 mg/dL (1.8-2.4); PHOSPHOROUS 3.4 mg/dL (2.5-4.9); POTASSIUM 4.4 mmol/L (3.5-5.1); TOT PROT 3.9 g/dl (6.4-8.2)
[2020-08-13] MEDS ORDERED: LACTATED RINGERS SOLUTION 1,000 ML/1,000 ML INFUS.BAG IV SCH (08:30)
[2020-08-13 08:41] LABS: CALCIUM 6.9 mg/dL (8.5-10.1)
[2020-08-13] MEDS ORDERED: MAGNESIUM OXIDE 400 MG TABLET (FP) PO ONE (08:57)
[2020-08-13] MEDS: LACTOBACILLUS ACIDOPHILUS 1 TABLET PEG SCH (09:23)
[2020-08-13] MEDS: HYDROmorphone HCl 2 MG/ML VIAL IVPUSH PRN ×2 (10:10→23:46)
[2020-08-13] MEDS: MULTIVIT-MINERALS ORAL LIQUID NGT SCH (10:23)
[2020-08-13] MEDS: FOLIC ACID 1 MG TABLET (FP) NGT SCH (10:23)
[2020-08-13] MEDS: HEPARIN NA (PORCINE) 5,000 UNITS/ML 1ML VIAL SQ SCH ×2 (10:24→21:20)
[2020-08-13] MEDS: AMINO ACIDS/PROTEIN HYDROLYS 30 ML LIQUID.PKT PO SCH (10:25)
[2020-08-13] MEDS: LIDOCAINE 5% TOPICAL PATCH TP SCH (10:25)
[2020-08-13] MEDS: COLLAGENASE CLOSTRIDIUM HIST. 30 GRAMS TUBE TP SCH (10:25)
[2020-08-13] MEDS: FAMOTIDINE 40 MG/5 ML ORAL SUSPENSION PEG SCH (10:25)
[2020-08-13] MEDS: THIAMINE HCL 200 MG/2 ML VIAL IVPB SCH (10:26)
[2020-08-13] MEDS: ASCORBIC ACID 500 MG TABLET (FP) PO SCH (10:26)
[2020-08-13] MEDS: ZINC OXIDE 20% TOPICAL OINTMENT 30 GM TUBE TP SCH (10:27)
--- NOTE | 2020-08-13 11:10 | PN ---
Teaching Attending Note Name of Resident: Yadira Hamilton ATTENDING PHYSICIAN STATEMENT I saw and evaluated the patient. I reviewed the resident's note and discussed the case with the resident. I agree with the resident's findings and plan as documented. SUBJECTIVE: Pt seen and examined in the ICU. Vented, awake. No air leak on chest tube. Low grade fevers this AM. Rounded density on CXR this AM. OBJECTIVE: Vital Signs Period Temp Pulse Resp BP Sys/Campbell Pulse Ox Last 24 Hr 98.9 F-100.5 F 107-144 15-28 71-114/55-85 92-100 Intake & Output 08/10/20 08/11/20 08/12/20 08/13/20 23:59 23:59 23:59 23:59 Intake Total 1620 1300 1540 890 Output Total 540 900 610 400 Balance 1080 400 930 490 Weight 33.112 kg 33.112 kg 33.112 kg Gen: vented, cachectic Heart: RRR Lung: scattered rhonchi Abd: soft, nontender, +ascites Ext: no edema CBC, BMP 08/13/20 06:32 08/13/20 06:32 Active Medications Amino Acids (Prosource No Carb Liquid Pkt) 30 ml PO DAILY [facility] Last Admin: 08/12/20 09:48 Dose: 30 ml Documented by: Ascorbic Acid (Vitamin C -) 500 mg PO DAILY [facility] Last Admin: 08/12/20 09:49 Dose: 500 mg Documented by: Collagenase (Santyl -) 1 applic TP DAILY [facility]; Protocol Last Admin: 08/12/20 09:48 Dose: 1 applic Documented by: Dextrose (D50w (Vial) -) 12.5 gm IVPUSH PRN PRN PRN Reason: HYPOGLYCEMIA Last Admin: 07/31/20 06:34 Dose: 12.5 gm Documented by: Diazepam (Valium -) 2 mg PO 2100 PRN PRN Reason: INSOMNIA Last Admin: 08/12/20 21:58 Dose: 2 mg Documented by: Famotidine (Pepcid) 20 mg PEG DAILY [facility] Last Admin: 08/12/20 09:48 Dose: 20 mg Documented by: Folic Acid (Folic Acid -) 1 mg NGT DAILY [facility] Last Admin: 08/12/20 09:47 Dose: 1 mg Documented by: Heparin Sodium (Porcine) (Heparin -) 5,000 unit SQ BID [facility] Last Admin: 08/12/20 21:58 Dose: 5,000 unit Documented by: Hydromorphone HCl (Dilaudid Vial -) 1 mg IVPUSH Q3H PRN PRN Reason: PAIN LEVEL 4 - 6 Last Admin: 08/12/20 21:58 Dose: 1 mg Documented by: Ketorolac Tromethamine (Toradol Injection -) 15 mg IVPUSH Q12H PRN PRN Reason: PAIN LEVEL 1-5 Stop: 08/14/20 11:26 Last Admin: 08/12/20 23:55 Dose: 15 mg Documented by: Lactobacillus Acidophilus (Bacid -) 1 tab PEG DAILY [facility] Last Admin: 08/12/20 09:46 Dose: 1 tab Documented by: Lidocaine (Lidoderm Patch -) 1 patch TP DAILY [facility] Last Admin: 08/12/20 09:48 Dose: 1 patch Documented by: Lidocaine HCl (Xylocaine 5% Top. Ointment) 1 applic TP DAILY [facility] Last Admin: 08/12/20 09:49 Dose: 1 applic Documented by: Miscellaneous (Lidoderm Patch Removal) 1 each MC DAILY@2200 [facility] Last Admin: 08/12/20 22:00 Dose: 1 each Documented by: Morphine Sulfate (Morphine Sulfate) 1 mg IVPUSH Q6H PRN PRN Reason: PAIN LEVEL 1-3 Last Admin: 08/11/20 17:18 Dose: 1 mg Documented by: Multi-Ingredient Ointment (Zinc Oxide) 1 applic TP DAILY [facility] Last Admin: 08/12/20 09:50 Dose: 1 applic Documented by: Multivitamins/Minerals (Certavite-Antioxidant Liquid) 15 ml NGT DAILY [facility] Last Admin: 08/12/20 09:47 Dose: 15 ml Documented by: Thiamine HCl (Vitamin B1 Injection -) 100 mg IVPB DAILY [facility] Last Admin: 08/12/20 09:49 Dose: 100 mg Documented by: ASSESSMENT AND PLAN: Acute Hypoxic Respiratory Failure s/p Tracheostomy Pneumonia likely Aspiration UTI Sepsis Hyponatremia Small Bowel Obstruction Ascites s/p Peritoneal drain placement Alcohol/Heroin Abuse Anemia/Thrombocytopenia Failure to Thrive Severe Protein Calorie Malnutrition Refeeding Syndrome - CT chest to r/o aspergilloma - reculture - continue chest tube to low wall suction - pain control - monitor urine output, creatinine - transfuse PRBC - monitor H/H - completed antibiotics - off pressors, maintain MAP >65 - titrate FiO2 to keep SpO2 >90% - spontaneous breathing trials as tolerated - enteral feeds - DVT/GI prophylaxis - continue ICU monitoring - for LTACH placement
--- NOTE | 2020-08-13 11:28 | PN ---
Progress Note, Physician - Current Medication List Current Medications: Active Medications Amino Acids (Prosource No Carb Liquid Pkt) 30 ml PO DAILY [facility] Last Admin: 08/12/20 09:48 Dose: 30 ml Documented by: Ascorbic Acid (Vitamin C -) 500 mg PO DAILY [facility] Last Admin: 08/12/20 09:49 Dose: 500 mg Documented by: Collagenase (Santyl -) 1 applic TP DAILY [facility]; Protocol Last Admin: 08/12/20 09:48 Dose: 1 applic Documented by: Dextrose (D50w (Vial) -) 12.5 gm IVPUSH PRN PRN PRN Reason: HYPOGLYCEMIA Last Admin: 07/31/20 06:34 Dose: 12.5 gm Documented by: Diazepam (Valium -) 2 mg PO 2100 PRN PRN Reason: INSOMNIA Last Admin: 08/12/20 21:58 Dose: 2 mg Documented by: Famotidine (Pepcid) 20 mg PEG DAILY [facility] Last Admin: 08/12/20 09:48 Dose: 20 mg Documented by: Folic Acid (Folic Acid -) 1 mg NGT DAILY [facility] Last Admin: 08/12/20 09:47 Dose: 1 mg Documented by: Heparin Sodium (Porcine) (Heparin -) 5,000 unit SQ BID [facility] Last Admin: 08/12/20 21:58 Dose: 5,000 unit Documented by: Hydromorphone HCl (Dilaudid Vial -) 1 mg IVPUSH Q3H PRN PRN Reason: PAIN LEVEL 4 - 6 Last Admin: 08/12/20 21:58 Dose: 1 mg Documented by: Ketorolac Tromethamine (Toradol Injection -) 15 mg IVPUSH Q12H PRN PRN Reason: PAIN LEVEL 1-5 Stop: 08/14/20 11:26 Last Admin: 08/12/20 23:55 Dose: 15 mg Documented by: Lactobacillus Acidophilus (Bacid -) 1 tab PEG DAILY [facility] Last Admin: 08/12/20 09:46 Dose: 1 tab Documented by: Lidocaine (Lidoderm Patch -) 1 patch TP DAILY [facility] Last Admin: 08/12/20 09:48 Dose: 1 patch Documented by: Lidocaine HCl (Xylocaine 5% Top. Ointment) 1 applic TP DAILY [facility] Last Admin: 08/12/20 09:49 Dose: 1 applic Documented by: Miscellaneous (Lidoderm Patch Removal) 1 each MC DAILY@2200 [facility] Last Admin: 08/12/20 22:00 Dose: 1 each Documented by: Morphine Sulfate (Morphine Sulfate) 1 mg IVPUSH Q6H PRN PRN Reason: PAIN LEVEL 1-3 Last Admin: 08/11/20 17:18 Dose: 1 mg Documented by: Multi-Ingredient Ointment (Zinc Oxide) 1 applic TP DAILY [facility] Last Admin: 08/12/20 09:50 Dose: 1 applic Documented by: Multivitamins/Minerals (Certavite-Antioxidant Liquid) 15 ml NGT DAILY [facility] Last Admin: 08/12/20 09:47 Dose: 15 ml Documented by: Thiamine HCl (Vitamin B1 Injection -) 100 mg IVPB DAILY [facility] Last Admin: 08/12/20 09:49 Dose: 100 mg Documented by: - Objective Vital Signs: Vital Signs Temperature 100.5 F H 08/13/20 06:00 Pulse Rate 137 H 08/13/20 08:16 Respiratory Rate 28 H 08/13/20 08:16 Blood Pressure 80/55 L 08/13/20 06:00 O2 Sat by Pulse Oximetry (%) 100 08/13/20 08:16 Labs: CBC, BMP 08/13/20 06:32 08/13/20 06:32 INR, PTT INR 1.52 (0.83-1.09) H 08/08/20 06:15 Fibrinogen 344.0 mg/dL (238-498) 07/21/20 06:00
--- NOTE | 2020-08-13 11:33 | PN ---
Physical Exam: SUBJECTIVE: Patient seen and examined bedside. Febrile early this morning. Patient complaining of being hot then having chills. OBJECTIVE: Vital Signs Temp Pulse Resp BP Pulse Ox 100.5 F H 137 H 28 H 80/55 L 100 08/13/20 06:00 08/13/20 08:16 08/13/20 08:16 08/13/20 06:00 08/13/20 08:16 GENERAL: The patient is awake, alert, and fully oriented HEAD: temporal wasting EYES: PERRL, EOMI ENT: moist mucous membranes. NECK: Trach in place LUNGS: decreased breath sounds BL HEART: Regular rhythm, tachy ABDOMEN: Peg in place, peritoneal drain on R side, Chest tube in place of L side EXTREMITIES: warm, well-perfused, mild edema BL NEUROLOGICAL: Cranial nerves II through XII grossly intact. PSYCH: Normal mood, normal affect. SKIN: sacral ulcer stage 4 Intake & Output 08/12/20 08/13/20 08/13/20 23:59 07:59 15:59 Intake Total 240 890 Output Total 410 400 Balance -170 490 Intake: IV 290 D5-Ns - 500 ml @ 1000 mls 250 /hr IV ONCE ONE Rx#: [id number] Normal Saline - 250 ml @ 40 250 mls/hr IV ASDIR STA Rx#:[id number] Tube Feeding 200 500 Tube Irrigant (Tube 40 100 Feeding Water) Output: Chest Tube Drainage 330 150 Left Lateral Chest 330 150 Drainage 50 Right Abdomen 50 Urine 80 200 Uribe 80 200 Other: Voiding Method Indwelling Catheter Indwelling Catheter Laboratory Results - last 24 hr 08/12/20 08/13/20 08/13/20 22:41 00:33 02:33 WBC RBC Hgb Hct MCV MCH MCHC RDW Plt Count MPV Absolute Neuts (auto) Total Counted Neutrophils % Neutrophils % (Manual) Band Neutrophils % Lymphocytes % Lymphocytes % (Manual) Monocytes % Monocytes % (Manual) Eosinophils % Basophils % Nucleated RBC % Sodium Potassium Chloride Carbon Dioxide Anion Gap BUN Creatinine Est GFR (CKD-EPI)AfAm Est GFR (CKD-EPI)NonAf POC Glucometer 51 111 90 Random Glucose Calcium Phosphorus Magnesium Total Bilirubin AST ALT Alkaline Phosphatase Total Protein Albumin Crossmatch 08/13/20 08/13/20 08/13/20 04:51 06:32 06:32 WBC 18.0 H RBC 2.15 L Hgb 6.7 L* Hct 20.8 L MCV 96.4 H MCH 31.3 MCHC 32.5 RDW 19.4 H Plt Count 399 MPV 8.0 Absolute Neuts (auto) 17.5 H Total Counted 100 Neutrophils % 97.3 H Neutrophils % (Manual) 82.0 Band Neutrophils % 16.0 Lymphocytes % 1.4 L D Lymphocytes % (Manual) 1.0 L D Monocytes % 1.1 L Monocytes % (Manual) 1 L Eosinophils % 0.0 D Basophils % 0.2 Nucleated RBC % 0 Sodium 138 Potassium 4.4 Chloride 107 Carbon Dioxide 24 Anion Gap 8 BUN 22.7 H Creatinine 0.3 L Est GFR (CKD-EPI)AfAm 171.92 Est GFR (CKD-EPI)NonAf 148.34 POC Glucometer 106 Random Glucose 148 H Calcium 6.9 L* Phosphorus 3.4 Magnesium 1.6 L Total Bilirubin 0.5 AST 54 H ALT 84 H Alkaline Phosphatase 714 H Total Protein 3.9 L Albumin 1.2 L Crossmatch 08/13/20 08/13/20 06:54 09:50 WBC RBC Hgb Hct MCV MCH MCHC RDW Plt Count MPV Absolute Neuts (auto) Total Counted Neutrophils % Neutrophils % (Manual) Band Neutrophils % Lymphocytes % Lymphocytes % (Manual) Monocytes % Monocytes % (Manual) Eosinophils % Basophils % Nucleated RBC % Sodium Potassium Chloride Carbon Dioxide Anion Gap BUN Creatinine Est GFR (CKD-EPI)AfAm Est GFR (CKD-EPI)NonAf POC Glucometer 158 Random Glucose Calcium Phosphorus Magnesium Total Bilirubin AST ALT Alkaline Phosphatase Total Protein Albumin Crossmatch See Detail Active Medications Generic Name Dose Route Start Last Admin Trade Name Freq PRN Reason Stop Dose Admin Amino Acids 30 ml 08/08/20 12:45 08/12/20 09:48 Prosource No Carb Liquid Pkt PO 30 ml DAILY [facility] Administration Ascorbic Acid 500 mg 07/27/20 13:00 08/12/20 09:49 Vitamin C - PO 500 mg DAILY [facility] Administration Collagenase 1 applic 08/05/20 19:30 08/12/20 09:48 Santyl - TP 1 applic DAILY [facility] Administration Protocol Dextrose 12.5 gm 07/08/20 07:08 07/31/20 06:34 D50w (Vial) - IVPUSH 12.5 gm PRN PRN Administration HYPOGLYCEMIA Diazepam 2 mg 08/10/20 10:41 08/12/20 21:58 Valium - PO 2 mg 2100 PRN Administration INSOMNIA Famotidine 20 mg 08/04/20 10:45 08/12/20 09:48 Pepcid PEG 20 mg DAILY [facility] Administration Folic Acid 1 mg 07/06/20 10:00 08/12/20 09:47 Folic Acid - NGT 1 mg DAILY [facility] Administration Heparin Sodium (Porcine) 5,000 unit 07/20/20 10:00 08/12/20 21:58 Heparin - SQ 5,000 unit BID [facility] Administration Hydromorphone HCl 1 mg 07/26/20 13:39 08/12/20 21:58 Dilaudid Vial - IVPUSH 1 mg Q3H PRN Administration PAIN LEVEL 4 - 6 Ketorolac Tromethamine 15 mg 08/10/20 10:36 08/12/20 23:55 Toradol Injection - IVPUSH 08/14/20 11:26 15 mg Q12H PRN Administration PAIN LEVEL 1-5 Lactobacillus Acidophilus 1 tab 08/08/20 12:45 08/12/20 09:46 Bacid - PEG 1 tab DAILY [facility] Administration Lidocaine 1 patch 08/09/20 11:30 08/12/20 09:48 Lidoderm Patch - TP 1 patch DAILY [facility] Administration Lidocaine HCl 1 applic 07/25/20 21:50 08/12/20 09:49 Xylocaine 5% Top. Ointment TP 1 applic DAILY [facility] Administration Miscellaneous 1 each 08/09/20 23:00 08/12/20 22:00 Lidoderm Patch Removal MC 1 each DAILY@2200 [facility] Administration Morphine Sulfate 1 mg 08/08/20 10:43 08/11/20 17:18 Morphine Sulfate IVPUSH 1 mg Q6H PRN Administration PAIN LEVEL 1-3 Multi-Ingredient Ointment 1 applic 07/19/20 13:30 08/12/20 09:50 Zinc Oxide TP 1 applic DAILY [facility] Administration Multivitamins/Minerals 15 ml 07/06/20 11:45 08/12/20 09:47 Certavite-Antioxidant Liquid NGT 15 ml DAILY [facility] Administration Thiamine HCl 100 mg 07/11/20 12:45 08/12/20 09:49 Vitamin B1 Injection - IVPB 100 mg DAILY [facility] Administration CXR: A single view of the chest is submitted. Since the prior study of 08/11/2020 at 0844 hours right pulmonary pleural changes, tracheostomy tube and left chest tube persist. There is no sign of a gross pneumothorax. The left pulm onary pleural changes have increased. There is a new rounded density seen by the left heart border. Correlation recommended. If findings do not improve then further imaging with CT may be of help ASSESSMENT/PLAN: 35F with PMH of malnutrition 2/2 bulimia and polysubstance use disorder, cirrhosis, & heroin abuse, in ICU with sepsis and acute hypoxic respiratory failure, now s/p trach, abdominal peritoneal drain, PEG placement, and L chest tube. 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, communicates with pen/paper - Pain control on Dilaudid, Morphine 1mg, Fentanyl, Toradol - Diazepam for insomnia - Keppra 1000mg 1x for seizure prophylaxis after suspected seizure Thursday CV[facility] - MAP stable, no pressor support - tachy most likely due to sepsis, monitor Resp - Tracheostomy 07/25, downsize trach tube at LTAC - L Pneumothorax stable pneumothorax, s/p chest tube and subsequent re-inflation - CXR shows consolidation in - Chest CT today GI - NPO except for ice chips - Transaminitis improving - no PPI ppx - flexi seal in place with intermittent diarrhea ID - S/p Tigecycline (08/07) - New sepsis with fever and tachycardia - new lung consolidation - CT chest ordered, possibly fungal based on previous cultures - ID consulted (Dr. Martines) - blood urine and sputum cultures pending - Start zosyn q8h Heme - Hg dropped 6.7, transfuse today - continue to monitor Derm - Multiple Sacral Ulcers (stage 4) - Daily wound care, air mattress, w/ frequent turns - Off-loading to all bony areas (heels, ankles, hips and tailbone) with Allevyn/Optifoam FEN - Jevity w/ Prosource to reduce volume and increase calories - monitor and replete lytes PRN - restart Banana bags for diarrhea, watch K levels DVT PPx - Heparin BID Dispo - CCC: spoke with Sita at [place] ph:[phone] who stated she is now following the request for patient to attend [facility]. Sita is aware that [facility] their in-network [facility], declined the referral. Sita stated that due to [employer] being [id number] Kiel needs to negotiate payment with [facility] directly. [facility] provided contact information for Michelle at [facility]. Sita explained once they have established pricing it will require 8 different approvals and signatures. Sita estimating that a determination should be made by Thursday or Thursday. [facility] will continue to follow Visit type - Emergency Visit Emergency Visit: Yes ED Registration Date: 07/01/20 Care time: The patient presented to the Emergency Department on the above date and was hospitalized for further evaluation of their emergent condition. - New Patient This patient is new to me today: No - Critical Care Critical Care patient: Yes Total Critical Care Time (in minutes): 35 Critical Care Statement: The care of this patient involved high complexity decision making to prevent further life threatening deterioration of the patient's condition and/or to evaluate & treat vital organ system(s) failure or risk of failure. - Discharge Referral Referred to [facility] Med [facility] No ATTENDING PHYSICIAN STATEMENT I saw and evaluated the patient. I reviewed the resident's note and discussed the case with the resident. I agree with the resident's findings and plan as documented. SUBJECTIVE: OBJECTIVE: ASSESSMENT AND PLAN:
[2020-08-13 12:26] VITALS: BMI 12.5
[2020-08-13] MEDS: PIPERACILLIN/TAZOB 3.375 GM 3.375 GM in DEXTROSE 5%-WATER - 50 ML IVPB SCH ×2 (12:38→17:54)
[2020-08-13] MEDS: LIDOCAINE HCL 5% TOP OINTMENT 50 GM TUBE TP SCH (14:26)
[2020-08-13] MEDS ORDERED: PIPERACILLIN/TAZOBACTAM 3.375 GM VIAL IVPB ONE ×2 (14:28→17:45)
[2020-08-13] MEDS ORDERED: DEXTROSE 5%-WATER - 50 ML IVPB ONE ×2 (14:28→17:45)
[2020-08-13] MEDS ORDERED: ACETAMINOPHEN 1000 MG/100 ML VIAL (NON FORMULARY) IVPB ONE ×2 (14:37)
[2020-08-13] MEDS: BANATROL PLUS POWDER PACKET PO SCH ×2 (14:39→21:20)
[2020-08-13] MEDS ORDERED: LOPERAMIDE HCL 1 MG/7.5 ML LIQUID PO ONE (15:59)
--- NOTE | 2020-08-13 16:09 | PN ---
Progress Note, Physician History of Present Illness: Pt seen and examined at bedside. She is awake and appears comfortable. - Current Medication List Current Medications: Active Medications Amino Acids (Prosource No Carb Liquid Pkt) 30 ml PO DAILY [facility] Last Admin: 08/13/20 10:25 Dose: 30 ml Documented by: Ascorbic Acid (Vitamin C -) 500 mg PO DAILY [facility] Last Admin: 08/13/20 10:26 Dose: 500 mg Documented by: Banana Based Medical Food (Banatrol Plus Powder Packet) 1 packet PO TID [facility] Last Admin: 08/13/20 14:39 Dose: 1 packet Documented by: Collagenase (Santyl -) 1 applic TP DAILY [facility]; Protocol Last Admin: 08/13/20 10:25 Dose: 1 applic Documented by: Dextrose (D50w (Vial) -) 12.5 gm IVPUSH PRN PRN PRN Reason: HYPOGLYCEMIA Last Admin: 07/31/20 06:34 Dose: 12.5 gm Documented by: Diazepam (Valium -) 2 mg PO 2100 PRN PRN Reason: INSOMNIA Last Admin: 08/12/20 21:58 Dose: 2 mg Documented by: Famotidine (Pepcid) 20 mg PEG DAILY [facility] Last Admin: 08/13/20 10:25 Dose: 20 mg Documented by: Folic Acid (Folic Acid -) 1 mg NGT DAILY [facility] Last Admin: 08/13/20 10:23 Dose: 1 mg Documented by: Heparin Sodium (Porcine) (Heparin -) 5,000 unit SQ BID [facility] Last Admin: 08/13/20 10:24 Dose: 5,000 unit Documented by: Hydromorphone HCl (Dilaudid Vial -) 1 mg IVPUSH Q3H PRN PRN Reason: PAIN LEVEL 4 - 6 Last Admin: 08/12/20 21:58 Dose: 1 mg Documented by: Piperacillin Sod/Tazobactam (Sod 3.375 gm/ Dextrose) 50 mls @ 100 mls/hr IVPB Q8H-IV [facility]; Protocol Last Admin: 08/13/20 12:38 Dose: 100 mls/hr Documented by: Ketorolac Tromethamine (Toradol Injection -) 15 mg IVPUSH Q12H PRN PRN Reason: PAIN LEVEL 1-5 Stop: 08/14/20 11:26 Last Admin: 08/12/20 23:55 Dose: 15 mg Documented by: Lactobacillus Acidophilus (Bacid -) 1 tab PEG DAILY [facility] Last Admin: 08/13/20 09:23 Dose: 1 tab Documented by: Lidocaine (Lidoderm Patch -) 1 patch TP DAILY [facility] Last Admin: 08/13/20 10:25 Dose: 1 patch Documented by: Lidocaine HCl (Xylocaine 5% Top. Ointment) 1 applic TP DAILY [facility] Last Admin: 08/13/20 14:26 Dose: 1 applic Documented by: Loperamide HCl (Imodium Liquid -) 2 mg PO ONCE ONE Stop: 08/13/20 16:00 Miscellaneous (Lidoderm Patch Removal) 1 each MC DAILY@2200 [facility] Last Admin: 08/12/20 22:00 Dose: 1 each Documented by: Morphine Sulfate (Morphine Sulfate) 1 mg IVPUSH Q6H PRN PRN Reason: PAIN LEVEL 1-3 Last Admin: 08/11/20 17:18 Dose: 1 mg Documented by: Multi-Ingredient Ointment (Zinc Oxide) 1 applic TP DAILY [facility] Last Admin: 08/13/20 10:27 Dose: 1 applic Documented by: Multivitamins/Minerals (Certavite-Antioxidant Liquid) 15 ml NGT DAILY [facility] Last Admin: 08/13/20 10:23 Dose: 15 ml Documented by: Thiamine HCl (Vitamin B1 Injection -) 100 mg IVPB DAILY [facility] Last Admin: 08/13/20 10:26 Dose: 100 mg Documented by: - Objective Vital Signs: Vital Signs Temperature 99 F 08/13/20 14:00 Pulse Rate 156 H 08/13/20 14:00 Respiratory Rate 29 H 08/13/20 16:03 Blood Pressure 100/70 08/13/20 14:00 O2 Sat by Pulse Oximetry (%) 92 L 08/13/20 16:03 Constitutional: Yes: Calm, Cachectic Eyes: Yes: Conjunctiva Clear HENT: Yes: Atraumatic Neck: Yes: Supple Cardiovascular: Yes: S1, S2 Respiratory: Yes: CTA Bilaterally, Mechanically Ventilated Gastrointestinal: Yes: Normal Bowel Sounds, Soft Genitourinary: Yes: Uribe Present Edema: No Neurological: Yes: Oriented Labs: CBC, BMP 08/13/20 06:32 08/13/20 06:32 INR, PTT INR 1.52 (0.83-1.09) H 08/08/20 06:15 Fibrinogen 344.0 mg/dL (238-498) 07/21/20 06:00 Problem List - Problems (1) Hypoglycemia Code(s): E16.2 - HYPOGLYCEMIA, UNSPECIFIED (2) Sepsis Code(s): A41.9 - SEPSIS, UNSPECIFIED ORGANISM Qualifiers: Sepsis type: sepsis due to unspecified organism Sepsis acute organ dysfunction status: unspecified Qualified Code(s): A41.9 - Sepsis, unspecified organism (3) Hypoalbuminemia Code(s): E88.09 - OTH DISORDERS OF PLASMA-PROTEIN METABOLISM, NEC (4) Hyponatremia Code(s): E87.1 - HYPO-OSMOLALITY AND HYPONATREMIA Assessment/Plan Current Medications Generic Name Dose Route Start Last Admin Trade Name Freq PRN Reason Stop Dose Admin Amino Acids 30 ml 08/08/20 12:45 08/13/20 10:25 Prosource No Carb Liquid Pkt PO 30 ml DAILY [facility] Administration Ascorbic Acid 500 mg 07/27/20 13:00 08/13/20 10:26 Vitamin C - PO 500 mg DAILY [facility] Administration Banana Based Medical Food 1 packet 08/13/20 14:00 08/13/20 14:39 Banatrol Plus Powder Packet PO 1 packet TID [facility] Administration Collagenase 1 applic 08/05/20 19:30 08/13/20 10:25 Santyl - TP 1 applic DAILY [facility] Administration Protocol Dextrose 12.5 gm 07/08/20 07:08 07/31/20 06:34 D50w (Vial) - IVPUSH 12.5 gm PRN PRN Administration HYPOGLYCEMIA Diazepam 2 mg 08/10/20 10:41 08/12/20 21:58 Valium - PO 2 mg 2100 PRN Administration INSOMNIA Famotidine 20 mg 08/04/20 10:45 08/13/20 10:25 Pepcid PEG 20 mg DAILY [facility] Administration Folic Acid 1 mg 07/06/20 10:00 08/13/20 10:23 Folic Acid - NGT 1 mg DAILY [facility] Administration Heparin Sodium (Porcine) 5,000 unit 07/20/20 10:00 08/13/20 10:24 Heparin - SQ 5,000 unit BID [facility] Administration Hydromorphone HCl 1 mg 07/26/20 13:39 08/12/20 21:58 Dilaudid Vial - IVPUSH 1 mg Q3H PRN Administration PAIN LEVEL 4 - 6 Piperacillin Sod/Tazobactam 50 mls @ 100 mls/hr 08/13/20 11:45 08/13/20 12:38 Sod 3.375 gm/ Dextrose IVPB 100 mls/hr Q8H-IV [facility] Administration Protocol Ketorolac Tromethamine 15 mg 08/10/20 10:36 08/12/20 23:55 Toradol Injection - IVPUSH 08/14/20 11:26 15 mg Q12H PRN Administration PAIN LEVEL 1-5 Lactobacillus Acidophilus 1 tab 08/08/20 12:45 08/13/20 09:23 Bacid - PEG 1 tab DAILY [facility] Administration Lidocaine 1 patch 08/09/20 11:30 08/13/20 10:25 Lidoderm Patch - TP 1 patch DAILY [facility] Administration Lidocaine HCl 1 applic 07/25/20 21:50 08/13/20 14:26 Xylocaine 5% Top. Ointment TP 1 applic DAILY [facility] Administration Loperamide HCl 2 mg 08/13/20 15:59 Imodium Liquid - PO 08/13/20 16:00 ONCE ONE Miscellaneous 1 each 08/09/20 23:00 08/12/20 22:00 Lidoderm Patch Removal MC 1 each DAILY@2200 [facility] Administration Morphine Sulfate 1 mg 08/08/20 10:43 08/11/20 17:18 Morphine Sulfate IVPUSH 1 mg Q6H PRN Administration PAIN LEVEL 1-3 Multi-Ingredient Ointment 1 applic 07/19/20 13:30 08/13/20 10:27 Zinc Oxide TP 1 applic DAILY [facility] Administration Multivitamins/Minerals 15 ml 07/06/20 11:45 08/13/20 10:23 Certavite-Antioxidant Liquid NGT 15 ml DAILY [facility] Administration Thiamine HCl 100 mg 07/11/20 12:45 08/13/20 10:26 Vitamin B1 Injection - IVPB 100 mg DAILY [facility] Administration Impression 1. azotemia 2. hyponatremia 3. hyperkalemia 4. hypotension 5. sepsis 6. sbo 7. uti 8. liver cirrhosis 9. hypoalbuminemia 10. etoh abuse 11. substance abuse 12. psoriasis 13. acute resp failure 14. malnutrition 15. 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 ascites Plan - cont feeds - replace mag - monitor output - repeat labs in am - vent support
[2020-08-13] MEDS ORDERED: VORICONAZOLE 200 MG TABLET (RESTRICTED TO ID) PO SCH (18:37)
[2020-08-13] MEDS ORDERED: DEXTROSE 5%-NORMAL SALINE 1,000 ML IV SCH (21:00)
[2020-08-13] MEDS: diazePAM 2 MG TABLET PO PRN (21:20)
--- NOTE | 2020-08-13 23:26 | PN ---
Progress Note, Physician - Current Medication List Current Medications: Active Medications Amino Acids (Prosource No Carb Liquid Pkt) 30 ml PO DAILY [facility] Last Admin: 08/13/20 10:25 Dose: 30 ml Documented by: Ascorbic Acid (Vitamin C -) 500 mg PO DAILY [facility] Last Admin: 08/13/20 10:26 Dose: 500 mg Documented by: Banana Based Medical Food (Banatrol Plus Powder Packet) 1 packet PO TID [facility] Last Admin: 08/13/20 21:20 Dose: 1 packet Documented by: Collagenase (Santyl -) 1 applic TP DAILY [facility]; Protocol Last Admin: 08/13/20 10:25 Dose: 1 applic Documented by: Dextrose (D50w (Vial) -) 12.5 gm IVPUSH PRN PRN PRN Reason: HYPOGLYCEMIA Last Admin: 07/31/20 06:34 Dose: 12.5 gm Documented by: Diazepam (Valium -) 2 mg PO 2100 PRN PRN Reason: INSOMNIA Last Admin: 08/13/20 21:20 Dose: 2 mg Documented by: Famotidine (Pepcid) 20 mg PEG DAILY [facility] Last Admin: 08/13/20 10:25 Dose: 20 mg Documented by: Folic Acid (Folic Acid -) 1 mg NGT DAILY [facility] Last Admin: 08/13/20 10:23 Dose: 1 mg Documented by: Heparin Sodium (Porcine) (Heparin -) 5,000 unit SQ BID [facility] Last Admin: 08/13/20 21:20 Dose: 5,000 unit Documented by: Hydromorphone HCl (Dilaudid Vial -) 1 mg IVPUSH Q3H PRN PRN Reason: PAIN LEVEL 4 - 6 Last Admin: 08/13/20 10:10 Dose: 1 mg Documented by: Piperacillin Sod/Tazobactam (Sod 3.375 gm/ Dextrose) 50 mls @ 100 mls/hr IVPB Q8H-IV [facility]; Protocol Last Admin: 08/13/20 17:54 Dose: 100 mls/hr Documented by: Dextrose/Sodium Chloride (D5-Ns -) 1,000 mls @ 42 mls/hr IV ASDIR [facility] Stop: 08/14/20 04:00 Last Admin: 08/13/20 20:57 Dose: 42 mls/hr Documented by: Ketorolac Tromethamine (Toradol Injection -) 15 mg IVPUSH Q12H PRN PRN Reason: PAIN LEVEL 1-5 Stop: 08/14/20 11:26 Last Admin: 08/12/20 23:55 Dose: 15 mg Documented by: Lactobacillus Acidophilus (Bacid -) 1 tab PEG DAILY [facility] Last Admin: 08/13/20 09:23 Dose: 1 tab Documented by: Lidocaine (Lidoderm Patch -) 1 patch TP DAILY [facility] Last Admin: 08/13/20 10:25 Dose: 1 patch Documented by: Lidocaine HCl (Xylocaine 5% Top. Ointment) 1 applic TP DAILY [facility] Last Admin: 08/13/20 14:26 Dose: 1 applic Documented by: Miscellaneous (Lidoderm Patch Removal) 1 each MC DAILY@2200 [facility] Last Admin: 08/12/20 22:00 Dose: 1 each Documented by: Morphine Sulfate (Morphine Sulfate) 1 mg IVPUSH Q6H PRN PRN Reason: PAIN LEVEL 1-3 Last Admin: 08/11/20 17:18 Dose: 1 mg Documented by: Multi-Ingredient Ointment (Zinc Oxide) 1 applic TP DAILY [facility] Last Admin: 08/13/20 10:27 Dose: 1 applic Documented by: Multivitamins/Minerals (Certavite-Antioxidant Liquid) 15 ml NGT DAILY [facility] Last Admin: 08/13/20 10:23 Dose: 15 ml Documented by: Thiamine HCl (Vitamin B1 Injection -) 100 mg IVPB DAILY [facility] Last Admin: 08/13/20 10:26 Dose: 100 mg Documented by: Voriconazole (Vfend (Restricted To Id)) 200 mg PO BID [facility] Voriconazole (Vfend (Restricted To Id)) 200 mg PO BID [facility] Stop: 08/14/20 10:01 - Objective Vital Signs: Vital Signs Temperature 98.7 F 08/13/20 21:16 Pulse Rate 136 H 08/13/20 21:36 Respiratory Rate 23 H 08/13/20 21:16 Blood Pressure 105/84 08/13/20 21:36 O2 Sat by Pulse Oximetry (%) 94 L 08/13/20 21:16 Labs: CBC, BMP 08/13/20 06:32 08/13/20 06:32 INR, PTT INR 1.52 (0.83-1.09) H 08/08/20 06:15 Fibrinogen 344.0 mg/dL (238-498) 07/21/20 06:00 Problem List - Problems (1) Respiratory failure Code(s): J96.90 - RESPIRATORY FAILURE, UNSP, UNSP W HYPOXIA OR HYPERCAPNIA (2) Sepsis Code(s): A41.9 - SEPSIS, UNSPECIFIED ORGANISM Qualifiers: Sepsis type: sepsis due to unspecified organism Sepsis acute organ dys function status: unspecified Qualified Code(s): A41.9 - Sepsis, unspecified organism (3) Anemia Code(s): D64.9 - ANEMIA, UNSPECIFIED (4) At risk for electrolyte imbalance Code(s): Z91.89 - OT PERSONAL RISK FACTORS, NOT ELSEWHERE CLASSIFIED (5) Liver cirrhosis, alcoholic Code(s): K70.30 - ALCOHOLIC CIRRHOSIS OF LIVER WITHOUT ASCITES (6) Hypoalbuminemia Code(s): E88.09 - OT DISORDERS OF PLASMA-PROTEIN METABOLISM, NEC (7) Substance abuse Code(s): F19.10 - OTHER PSYCHOACTIVE SUBSTANCE ABUSE, UNCOMPLICATED (8) Cachexia Code(s): R64 - CACHEXIA (9) Severe malnutrition Code(s): E43 - UNSPECIFIED SEVERE PROTEIN-CALORIE MALNUTRITION (10) Sacral ulcer Code(s): L98.429 - NON-PRESSURE CHRONIC ULCER OF BACK WITH UNSPECIFIED SEVERITY (11) SBO (small bowel obstruction) Code(s): K56.609 - UNSP INTESTNL OBST, UNSP TO PARTIAL VERSUS COMPLETE OBST
[2020-08-13] MEDS: VORICONAZOLE 200 MG TABLET (RESTRICTED TO ID) PO SCH (23:39)
[2020-08-13] MEDS: LIDOCAINE PATCH REMOVAL MC SCH (23:39)
[2020-08-14] MEDS ORDERED: PIPERACILLIN/TAZOBACTAM 3.375 GM VIAL IVPB ONE ×3 (02:50→17:51)
[2020-08-14] MEDS ORDERED: DEXTROSE 5%-WATER - 50 ML IVPB ONE ×3 (02:50→17:52)
[2020-08-14] MEDS: PIPERACILLIN/TAZOB 3.375 GM 3.375 GM in DEXTROSE 5%-WATER - 50 ML IVPB SCH ×3 (02:57→17:48)
[2020-08-14] MEDS: VORICONAZOLE 200 MG TABLET (RESTRICTED TO ID) PO SCH ×2 (02:58→12:43)
[2020-08-14 03:08] LABS: HEMATOCRIT 40.2 % (32.4-45.2); HEMOGLOBIN 13.6 GM/dL (10.7-15.3); MCH 31.1 pg (25.7-33.7); MEAN CELL VOLUME 91.4 fl (80-96); PLATELET COUNT 402 K/MM3 (134-434); RBC 4.39 M/mm3 (3.60-5.2); RDW 16.7 % (11.6-15.6); WHITE BLOOD COUNT 18.8 K/mm3 (4.0-10.0)
[2020-08-14] MEDS ORDERED: DEXTROSE 50%-WATER 25 GM/50 ML DISP.SYRIN ONE (05:12)
[2020-08-14] MEDS: DEXTROSE 50%-WATER - 25 GM/50 ML VIAL IVPUSH PRN (05:29)
[2020-08-14] MEDS: BANATROL PLUS POWDER PACKET PO SCH ×3 (05:29→21:07)
[2020-08-14 07:43] LABS: INR 1.49 (0.83-1.09); PROTHROMBIN TIME (PATIENT) 17.4 SEC (9.7-13.0)
[2020-08-14 07:45] LABS: HEMATOCRIT 33.9 % (32.4-45.2); HEMOGLOBIN 11.3 GM/dL (10.7-15.3); MCH 30.2 pg (25.7-33.7); MCHC 33.3 g/dl (32.0-36.0); MEAN CELL VOLUME 90.8 fl (80-96); MEAN PLT VOLUME 8.3 fl (7.5-11.1); PLATELET COUNT 430 K/MM3 (134-434); RBC 3.74 M/mm3 (3.60-5.2); RDW 17.2 % (11.6-15.6); WHITE BLOOD COUNT 16.7 K/mm3 (4.0-10.0)
[2020-08-14 07:46] LABS: ACTIVATED PTT 35.8 SECONDS (25.2-36.5)
[2020-08-14 08:09] LABS: ALBUMIN 1.3 g/dl (3.4-5.0); BILIRUBIN,TOTAL 0.9 mg/dL (0.2-1); BLOOD UREA NITROGEN 24.2 mg/dL (7-18); CALCIUM 7.2 mg/dL (8.5-10.1); CREATININE 0.3 mg/dL (0.55-1.3); MAGNESIUM 1.8 mg/dL (1.8-2.4); PHOSPHOROUS 3.3 mg/dL (2.5-4.9); POTASSIUM 4.6 mmol/L (3.5-5.1); TOT PROT 4.4 g/dl (6.4-8.2)
[2020-08-14] MEDS ORDERED: PT OWN MED DRAWER 7, Y5N ONE ×3 (09:26→21:46)
[2020-08-14] MEDS: HYDROmorphone HCl 2 MG/ML VIAL IVPUSH PRN ×2 (10:08→17:30)
[2020-08-14] MEDS: FOLIC ACID 1 MG TABLET (FP) NGT SCH (10:09)
[2020-08-14] MEDS: MULTIVIT-MINERALS ORAL LIQUID NGT SCH (10:09)
[2020-08-14] MEDS: LACTOBACILLUS ACIDOPHILUS 1 TABLET PEG SCH (10:09)
[2020-08-14] MEDS: HEPARIN NA (PORCINE) 5,000 UNITS/ML 1ML VIAL SQ SCH ×2 (10:09→21:07)
[2020-08-14] MEDS ORDERED: VORICONAZOLE 200 MG/20 ML VIAL (RESTRICTED TO ID) IVPB SCH ×2 (10:15→11:09)
[2020-08-14] MEDS: THIAMINE HCL 200 MG/2 ML VIAL IVPB SCH (10:22)
[2020-08-14] MEDS: COLLAGENASE CLOSTRIDIUM HIST. 30 GRAMS TUBE TP SCH (10:22)
[2020-08-14] MEDS: FAMOTIDINE 40 MG/5 ML ORAL SUSPENSION PEG SCH (10:22)
[2020-08-14] MEDS: LIDOCAINE HCL 5% TOP OINTMENT 50 GM TUBE TP SCH (10:22)
[2020-08-14] MEDS: AMINO ACIDS/PROTEIN HYDROLYS 30 ML LIQUID.PKT PO SCH (10:22)
[2020-08-14] MEDS: LIDOCAINE 5% TOPICAL PATCH TP SCH (10:22)
[2020-08-14] MEDS: ASCORBIC ACID 500 MG TABLET (FP) PO SCH (10:22)
[2020-08-14] MEDS: ZINC OXIDE 20% TOPICAL OINTMENT 30 GM TUBE TP SCH (10:23)
[2020-08-14] MEDS ORDERED: LOPERAMIDE HCL 1 MG/5 ML UNIT DOSE CUP PO ONE (10:59)
--- NOTE | 2020-08-14 12:07 | PN ---
Teaching Attending Note Name of Resident: Yadira Hamilton ATTENDING PHYSICIAN STATEMENT I saw and evaluated the patient. I reviewed the resident's note and discussed the case with the resident. I agree with the resident's findings and plan as documented. SUBJECTIVE: Pt seen and examined in the ICU. Vented, awake. No air leak on chest tube. No further fevers. CT chest confirming 2 cavitary lesions on the left. OBJECTIVE: Vital Signs Period Temp Pulse Resp BP Sys/Campbell Pulse Ox Last 24 Hr 98.7 F-99 F 112-156 16-29 84-105/57-84 92-100 Intake & Output 08/11/20 08/12/20 08/13/20 08/14/20 23:59 23:59 23:59 23:59 Intake Total 1300 1540 1070 560 Output Total 900 610 480 500 Balance 400 930 590 60 Weight 33.112 kg 33.112 kg Gen: vented, cachectic Heart: RRR Lung: scattered rhonchi Abd: soft, nontender, +ascites Ext: no edema CBC, BMP 08/14/20 06:10 08/14/20 06:10 Active Medications Amino Acids (Prosource No Carb Liquid Pkt) 30 ml PO DAILY [facility] Last Admin: 08/14/20 10:22 Dose: 30 ml Documented by: Ascorbic Acid (Vitamin C -) 500 mg PO DAILY [facility] Last Admin: 08/14/20 10:22 Dose: 500 mg Documented by: Banana Based Medical Food (Banatrol Plus Powder Packet) 1 packet PO TID [facility] Last Admin: 08/14/20 05:29 Dose: 1 packet Documented by: Collagenase (Santyl -) 1 applic TP DAILY [facility]; Protocol Last Admin: 08/14/20 10:22 Dose: 1 applic Documented by: Dextrose (D50w (Vial) -) 12.5 gm IVPUSH PRN PRN PRN Reason: HYPOGLYCEMIA Last Admin: 08/14/20 05:29 Dose: 12.5 gm Documented by: Diazepam (Valium -) 2 mg PO 2100 PRN PRN Reason: INSOMNIA Last Admin: 08/13/20 21:20 Dose: 2 mg Documented by: Famotidine (Pepcid) 20 mg PEG DAILY [facility] Last Admin: 08/14/20 10:22 Dose: 20 mg Documented by: Folic Acid (Folic Acid -) 1 mg NGT DAILY [facility] Last Admin: 08/14/20 10:09 Dose: 1 mg Documented by: Heparin Sodium (Porcine) (Heparin -) 5,000 unit SQ BID [facility] Last Admin: 08/14/20 10:09 Dose: 5,000 unit Documented by: Hydromorphone HCl (Dilaudid Vial -) 1 mg IVPUSH Q3H PRN PRN Reason: PAIN LEVEL 4 - 6 Last Admin: 08/14/20 10:08 Dose: 1 mg Documented by: Piperacillin Sod/Tazobactam (Sod 3.375 gm/ Dextrose) 50 mls @ 100 mls/hr IVPB Q8H-IV [facility]; Protocol Last Admin: 08/14/20 10:23 Dose: 100 mls/hr Documented by: Voriconazole 130 mg/ Sodium (Chloride) 113 mls @ 113 mls/hr IVPB BID [facility] Lactobacillus Acidophilus (Bacid -) 1 tab PEG DAILY [facility] Last Admin: 08/14/20 10:09 Dose: 1 tab Documented by: Lidocaine (Lidoderm Patch -) 1 patch TP DAILY [facility] Last Admin: 08/14/20 10:22 Dose: 1 patch Documented by: Lidocaine HCl (Xylocaine 5% Top. Ointment) 1 applic TP DAILY [facility] Last Admin: 08/14/20 10:22 Dose: 1 applic Documented by: Loperamide HCl (Loperamide Hcl) 2 mg PO ONCE ONE Stop: 08/14/20 12:16 Miscellaneous (Lidoderm Patch Removal) 1 each MC DAILY@2200 [facility] Last Admin: 08/13/20 23:39 Dose: 1 each Documented by: Morphine Sulfate (Morphine Sulfate) 1 mg IVPUSH Q6H PRN PRN Reason: PAIN LEVEL 1-3 Last Admin: 08/11/20 17:18 Dose: 1 mg Documented by: Multi-Ingredient Ointment (Zinc Oxide) 1 applic TP DAILY [facility] Last Admin: 08/14/20 10:23 Dose: 1 applic Documented by: Multivitamins/Minerals (Certavite-Antioxidant Liquid) 15 ml NGT DAILY [facility] Last Admin: 08/14/20 10:09 Dose: 15 ml Documented by: Thiamine HCl (Vitamin B1 Injection -) 100 mg IVPB DAILY [facility] Last Admin: 08/14/20 10:22 Dose: 100 mg Documented by: ASSESSMENT AND PLAN: Acute Hypoxic Respiratory Failure s/p Tracheostomy Pneumonia likely Aspiration UTI Sepsis Hyponatremia Small Bowel Obstruction Ascites s/p Peritoneal drain placement Alcohol/Heroin Abuse Anemia/Thrombocytopenia Failure to Thrive Severe Protein Calorie Malnutrition Refeeding Syndrome - start voriconazole - placed chest tube on water seal - pain control - monitor urine output, creatinine - monitor H/H - completed antibiotics - off pressors, maintain MAP >65 - titrate FiO2 to keep SpO2 >90% - spontaneous breathing trials as tolerated - enteral feeds - DVT/GI prophylaxis - continue ICU monitoring - for LTACH placement
[2020-08-14] MEDS ORDERED: LOPERAMIDE HCL 1 MG/7.5 ML LIQUID PO ONE (12:15)
[2020-08-14] MEDS: SODIUM CHLORIDE IVPB SCH ×2 (12:20→21:48)
[2020-08-14] MEDS: VORICONAZOLE IVPB SCH ×2 (12:20→21:48)
--- NOTE | 2020-08-14 13:26 | PN ---
Progress Note, Physician History of Present Illness: Pt seen and examined at bedside. She is awake and appears comfortable. - Current Medication List Current Medications: Active Medications Amino Acids (Prosource No Carb Liquid Pkt) 30 ml PO DAILY [facility] Last Admin: 08/14/20 10:22 Dose: 30 ml Documented by: Ascorbic Acid (Vitamin C -) 500 mg PO DAILY [facility] Last Admin: 08/14/20 10:22 Dose: 500 mg Documented by: Banana Based Medical Food (Banatrol Plus Powder Packet) 1 packet PO TID [facility] Last Admin: 08/14/20 05:29 Dose: 1 packet Documented by: Collagenase (Santyl -) 1 applic TP DAILY [facility]; Protocol Last Admin: 08/14/20 10:22 Dose: 1 applic Documented by: Dextrose (D50w (Vial) -) 12.5 gm IVPUSH PRN PRN PRN Reason: HYPOGLYCEMIA Last Admin: 08/14/20 05:29 Dose: 12.5 gm Documented by: Diazepam (Valium -) 2 mg PO 2100 PRN PRN Reason: INSOMNIA Last Admin: 08/13/20 21:20 Dose: 2 mg Documented by: Famotidine (Pepcid) 20 mg PEG DAILY [facility] Last Admin: 08/14/20 10:22 Dose: 20 mg Documented by: Folic Acid (Folic Acid -) 1 mg NGT DAILY [facility] Last Admin: 08/14/20 10:09 Dose: 1 mg Documented by: Heparin Sodium (Porcine) (Heparin -) 5,000 unit SQ BID [facility] Last Admin: 08/14/20 10:09 Dose: 5,000 unit Documented by: Hydromorphone HCl (Dilaudid Vial -) 1 mg IVPUSH Q3H PRN PRN Reason: PAIN LEVEL 4 - 6 Last Admin: 08/14/20 10:08 Dose: 1 mg Documented by: Piperacillin Sod/Tazobactam (Sod 3.375 gm/ Dextrose) 50 mls @ 100 mls/hr IVPB Q8H-IV [facility]; Protocol Last Admin: 08/14/20 10:23 Dose: 100 mls/hr Documented by: Voriconazole 130 mg/ Sodium (Chloride) 113 mls @ 113 mls/hr IVPB BID [facility] Last Admin: 08/14/20 12:20 Dose: 113 mls/hr Documented by: Lactobacillus Acidophilus (Bacid -) 1 tab PEG DAILY [facility] Last Admin: 10/13/20 10:09 Dose: 1 tab Documented by: Lidocaine (Lidoderm Patch -) 1 patch TP DAILY [facility] Last Admin: 08/14/20 10:22 Dose: 1 patch Documented by: Lidocaine HCl (Xylocaine 5% Top. Ointment) 1 applic TP DAILY [facility] Last Admin: 08/14/20 10:22 Dose: 1 applic Documented by: Miscellaneous (Lidoderm Patch Removal) 1 each MC DAILY@2200 [facility] Last Admin: 08/13/20 23:39 Dose: 1 each Documented by: Morphine Sulfate (Morphine Sulfate) 1 mg IVPUSH Q6H PRN PRN Reason: PAIN LEVEL 1-3 Last Admin: 08/11/20 17:18 Dose: 1 mg Documented by: Multi-Ingredient Ointment (Zinc Oxide) 1 applic TP DAILY [facility] Last Admin: 08/14/20 10:23 Dose: 1 applic Documented by: Multivitamins/Minerals (Certavite-Antioxidant Liquid) 15 ml NGT DAILY [facility] Last Admin: 08/14/20 10:09 Dose: 15 ml Documented by: Thiamine HCl (Vitamin B1 Injection -) 100 mg IVPB DAILY [facility] Last Admin: 08/14/20 10:22 Dose: 100 mg Documented by: - Objective Vital Signs: Vital Signs Temperature 98.7 F 08/14/20 05:20 Pulse Rate 129 H 08/14/20 12:00 Respiratory Rate 17 08/14/20 12:20 Blood Pressure 96/70 08/14/20 12:00 O2 Sat by Pulse Oximetry (%) 97 08/14/20 12:20 Constitutional: Yes: Calm, Cachectic Eyes: Yes: Conjunctiva Clear HENT: Yes: Atraumatic Neck: Yes: Supple Cardiovascular: Yes: S1, S2 Respiratory: Yes: Mechanically Ventilated Gastrointestinal: Yes: Soft Genitourinary: Yes: Uribe Present Edema: No Neurological: Yes: Oriented Labs: CBC, BMP 08/14/20 06:10 08/14/20 06:10 INR, PTT INR 1.49 (0.83-1.09) H 08/14/20 06:10 Fibrinogen 344.0 mg/dL (238-498) 07/21/20 06:00 Problem List - Problems (1) Hypoglycemia Code(s): E16.2 - HYPOGLYCEMIA, UNSPECIFIED (2) Sepsis Code(s): A41.9 - SEPSIS, UNSPECIFIED ORGANISM Qualifiers: Sepsis type: sepsis due to unspecified organism Sepsis acute organ dysfunction status: unspecified Qualified Code(s): A41.9 - Sepsis, unspecified organism (3) Hypoalbuminemia Code(s): E88.09 - OTH DISORDERS OF PLASMA-PROTEIN METABOLISM, NEC (4) Hyponatremia Code(s): E87.1 - HYPO-OSMOLALITY AND HYPONATREMIA Assessment/Plan Current Medications Generic Name Dose Route Start Last Admin Trade Name Freq PRN Reason Stop Dose Admin Amino Acids 30 ml 08/08/20 12:45 08/14/20 10:22 Prosource No Carb Liquid Pkt PO 30 ml DAILY [facility] Administration Ascorbic Acid 500 mg 07/27/20 13:00 08/14/20 10:22 Vitamin C - PO 500 mg DAILY [facility] Administration Banana Based Medical Food 1 packet 08/13/20 14:00 08/14/20 05:29 Banatrol Plus Powder Packet PO 1 packet TID [facility] Administration Collagenase 1 applic 08/05/20 19:30 08/14/20 10:22 Santyl - TP 1 applic DAILY [facility] Administration Protocol Dextrose 12.5 gm 07/08/20 07:08 08/14/20 05:29 D50w (Vial) - IVPUSH 12.5 gm PRN PRN Administration HYPOGLYCEMIA Diazepam 2 mg 08/10/20 10:41 08/13/20 21:20 Valium - PO 2 mg 2100 PRN Administration INSOMNIA Famotidine 20 mg 08/04/20 10:45 08/14/20 10:22 Pepcid PEG 20 mg DAILY [facility] Administration Folic Acid 1 mg 07/06/20 10:00 08/14/20 10:09 Folic Acid - NGT 1 mg DAILY [facility] Administration Heparin Sodium (Porcine) 5,000 unit 07/20/20 10:00 08/14/20 10:09 Heparin - SQ 5,000 unit BID [facility] Administration Hydromorphone HCl 1 mg 07/26/20 13:39 08/14/20 10:08 Dilaudid Vial - IVPUSH 1 mg Q3H PRN Administration PAIN LEVEL 4 - 6 Piperacillin Sod/Tazobactam 50 mls @ 100 mls/hr 08/13/20 11:45 08/14/20 10:23 Sod 3.375 gm/ Dextrose IVPB 100 mls/hr Q8H-IV [facility] Administration Protocol Voriconazole 130 mg/ Sodium 113 mls @ 113 mls/hr 08/14/20 11:30 08/14/20 12:20 Chloride IVPB 113 mls/hr BID [facility] Administration Lactobacillus Acidophilus 1 tab 08/08/20 12:45 08/14/20 10:09 Bacid - PEG 1 tab DAILY [facility] Administration Lidocaine 1 patch 08/09/20 11:30 08/14/20 10:22 Lidoderm Patch - TP 1 patch DAILY [facility] Administration Lidocaine HCl 1 applic 07/25/20 21:50 08/14/20 10:22 Xylocaine 5% Top. Ointment TP 1 applic DAILY [facility] Administration Miscellaneous 1 each 08/09/20 23:00 08/13/20 23:39 Lidoderm Patch Removal MC 1 each DAILY@2200 [facility] Administration Morphine Sulfate 1 mg 08/08/20 10:43 08/11/20 17:18 Morphine Sulfate IVPUSH 1 mg Q6H PRN Administration PAIN LEVEL 1-3 Multi-Ingredient Ointment 1 applic 07/19/20 13:30 08/14/20 10:23 Zinc Oxide TP 1 applic DAILY [facility] Administration Multivitamins/Minerals 15 ml 07/06/20 11:45 08/14/20 10:09 Certavite-Antioxidant Liquid NGT 15 ml DAILY [facility] Administration Thiamine HCl 100 mg 07/11/20 12:45 08/14/20 10:22 Vitamin B1 Injection - IVPB 100 mg DAILY [facility] Administration Impression 1. azotemia 2. hyponatremia 3. hyperkalemia 4. hypotension 5. sepsis 6. sbo 7. uti 8. liver cirrhosis 9. hypoalbuminemia 10. etoh abuse 11. substance abuse 12. psoriasis 13. acute resp failure 14. malnutrition 15. 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 ascites Plan - cont current feeds - cont vent support - bp is improve - repeat labs in am - chest tube care
--- NOTE | 2020-08-14 14:34 | PN ---
Physical Exam: SUBJECTIVE: Patient seen and examined, feeling better, still tachycardic. No events overnight. OBJECTIVE: Vital Signs Temp Pulse Resp BP Pulse Ox 98.7 F 129 H 17 96/70 97 08/14/20 05:20 08/14/20 12:00 08/14/20 12:20 08/14/20 12:00 08/14/20 12:20 GENERAL: The patient is awake, alert, and fully oriented HEAD: temporal wasting EYES: PERRL, EOMI ENT: moist mucous membranes. NECK: Trach in place LUNGS: decreased breath sounds BL HEART: Regular rhythm, tachy ABDOMEN: Peg in place, peritoneal drain on R side, Chest tube in place of L side EXTREMITIES: warm, well-perfused, mild edema BL NEUROLOGICAL: Cranial nerves II through XII grossly intact. PSYCH: Normal mood, normal affect. SKIN: sacral ulcer stage 4 Intake & Output 08/13/20 08/14/20 08/14/20 23:59 07:59 15:59 Intake Total 180 560 Output Total 30 500 Balance 150 60 Intake: IV 180 270 D5-Ns - 1,000 ml @ 42 mls 180 270 /hr IV ASDIR [facility] Rx#: [id number] IVPB 50 Tube Feeding 180 Tube Irrigant (Tube 60 Feeding Water) Output: Chest Tube Drainage 100 Left Lateral Chest 100 Drainage 150 Right Abdomen 150 Urine 30 250 Uribe 30 250 Other: Voiding Method Indwelling Catheter Indwelling Catheter Indwelling Catheter Bowel Movement Yes: very large loose BM # Bowel Movements 1 Laboratory Results - last 24 hr 08/13/20 08/13/20 08/14/20 09:50 20:01 02:29 WBC RBC Hgb Hct MCV MCH MCHC RDW Plt Count MPV PT with INR INR PTT (Actin FS) Sodium Potassium Chloride Carbon Dioxide Anion Gap BUN Creatinine Est GFR (CKD-EPI)AfAm Est GFR (CKD-EPI)NonAf POC Glucometer 75 66 Random Glucose Calcium Phosphorus Magnesium Total Bilirubin AST ALT Alkaline Phosphatase Total Protein Albumin Blood Type O POSITIVE Antibody Screen Negative Crossmatch See Detail 08/14/20 08/14/20 08/14/20 02:45 04:40 06:10 WBC 18.8 H RBC 4.39 Hgb 13.6 Hct 40.2 D MCV 91.4 MCH 31.1 MCHC 34.0 RDW 16.7 H Plt Count 402 MPV 8.0 PT with INR 17.40 H INR 1.49 H PTT (Actin FS) 35.8 Sodium Potassium Chloride Carbon Dioxide Anion Gap BUN Creatinine Est GFR (CKD-EPI)AfAm Est GFR (CKD-EPI)NonAf POC Glucometer 69 Random Glucose Calcium Phosphorus Magnesium Total Bilirubin AST ALT Alkaline Phosphatase Total Protein Albumin Blood Type Antibody Screen Crossmatch 08/14/20 08/14/20 08/14/20 06:10 06:10 06:16 WBC 16.7 H RBC 3.74 Hgb 11.3 Hct 33.9 D MCV 90.8 MCH 30.2 MCHC 33.3 RDW 17.2 H Plt Count 430 MPV 8.3 PT with INR INR PTT (Actin FS) Sodium 135 L Potassium 4.6 Chloride 102 Carbon Dioxide 26 Anion Gap 7 L BUN 24.2 H Creatinine 0.3 L Est GFR (CKD-EPI)AfAm 171.92 Est GFR (CKD-EPI)NonAf 148.34 POC Glucometer 127 Random Glucose 103 Calcium 7.2 L Phosphorus 3.3 Magnesium 1.8 Total Bilirubin 0.9 AST 31 ALT 65 H Alkaline Phosphatase 562 H Total Protein 4.4 L Albumin 1.3 L Blood Type Antibody Screen Crossmatch 08/14/20 08:43 WBC RBC Hgb Hct MCV MCH MCHC RDW Plt Count MPV PT with INR INR PTT (Actin FS) Sodium Potassium Chloride Carbon Dioxide Anion Gap BUN Creatinine Est GFR (CKD-EPI)AfAm Est GFR (CKD-EPI)NonAf POC Glucometer 104 Random Glucose Calcium Phosphorus Magnesium Total Bilirubin AST ALT Alkaline Phosphatase Total Protein Albumin Blood Type Antibody Screen Crossmatch Active Medications Generic Name Dose Route Start Last Admin Trade Name Freq PRN Reason Stop Dose Admin Amino Acids 30 ml 08/08/20 12:45 08/14/20 10:22 Prosource No Carb Liquid Pkt PO 30 ml DAILY RAUL Administration Ascorbic Acid 500 mg 07/27/20 13:00 08/14/20 10:22 Vitamin C - PO 500 mg DAILY RAUL Administration Banana Based Medical Food 1 packet 08/13/20 14:00 08/14/20 05:29 Banatrol Plus Powder Packet PO 1 packet TID RAUL Administration Collagenase 1 applic 08/05/20 19:30 08/14/20 10:22 Santyl - TP 1 applic DAILY RAUL Administration Protocol Dextrose 12.5 gm 07/08/20 07:08 08/14/20 05:29 D50w (Vial) - IVPUSH 12.5 gm PRN PRN Administration HYPOGLYCEMIA Diazepam 2 mg 08/10/20 10:41 08/13/20 21:20 Valium - PO 2 mg 2100 PRN Administration INSOMNIA Famotidine 20 mg 08/04/20 10:45 08/14/20 10:22 Pepcid PEG 20 mg DAILY RAUL Administration Folic Acid 1 mg 07/06/20 10:00 08/14/20 10:09 Folic Acid - NGT 1 mg DAILY RAUL Administration Heparin Sodium (Porcine) 5,000 unit 07/20/20 10:00 08/14/20 10:09 Heparin - SQ 5,000 unit BID RAUL Administration Hydromorphone HCl 1 mg 07/26/20 13:39 08/14/20 10:08 Dilaudid Vial - IVPUSH 1 mg Q3H PRN Administration PAIN LEVEL 4 - 6 Piperacillin Sod/Tazobactam 50 mls @ 100 mls/hr 08/13/20 11:45 08/14/20 10:23 Sod 3.375 gm/ Dextrose IVPB 100 mls/hr Q8H-IV RAUL Administration Protocol Voriconazole 130 mg/ Sodium 113 mls @ 113 mls/hr 08/14/20 11:30 08/14/20 12:20 Chloride IVPB 113 mls/hr BID RAUL Administration Lactobacillus Acidophilus 1 tab 08/08/20 12:45 08/14/20 10:09 Bacid - PEG 1 tab DAILY RAUL Administration Lidocaine 1 patch 08/09/20 11:30 08/14/20 10:22 Lidoderm Patch - TP 1 patch DAILY RAUL Administration Lidocaine HCl 1 applic 07/25/20 21:50 08/14/20 10:22 Xylocaine 5% Top. Ointment TP 1 applic DAILY RAUL Administration Miscellaneous 1 each 08/09/20 23:00 08/13/20 23:39 Lidoderm Patch Removal MC 1 each DAILY@2200 RAUL Administration Morphine Sulfate 1 mg 08/08/20 10:43 08/11/20 17:18 Morphine Sulfate IVPUSH 1 mg Q6H PRN Administration PAIN LEVEL 1-3 Multi-Ingredient Ointment 1 applic 07/19/20 13:30 08/14/20 10:23 Zinc Oxide TP 1 applic DAILY RAUL Administration Multivitamins/Minerals 15 ml 07/06/20 11:45 08/14/20 10:09 Certavite-Antioxidant Liquid NGT 15 ml DAILY RAUL Administration Thiamine HCl 100 mg 07/11/20 12:45 08/14/20 10:22 Vitamin B1 Injection - IVPB 100 mg DAILY RAUL Administration CT Chest: Impression: Subtle trace left apical pneumothorax. Left-sided pleural drainage catheter in place. An approximately 6 x 3.5 cm irregular mildly thick-walled lobulated left pulmonary apex air-containing cavitary lesion is seen probably representing an abscess cavity. A separate 3.7 x 2.5 cm similar air-containing cavitary lesion is noted within the lingula. In comparison to an abdomen/pelvic CT exam of 07/05/2020 interval development of a left lower lobe infiltrate is seen posteriorly. A moderate left pleural effusion is noted with resultant partial left lower lobe compressive atelectasis. No definite interval change is seen in this regard. Interval development of multifocal infiltrates are seen within the right lower lobe. A small right pleural effusion is seen which has decreased in size. Tracheostomy tube in place. ASSESSMENT/PLAN: 35F with PMH of malnutrition 2/2 bulimia and polysubstance use disorder, cirrhosis, & heroin abuse, in ICU with sepsis and acute hypoxic respiratory failure, now s/p trach, abdominal peritoneal drain, PEG placement, and L chest tube. [employer] - AOx3, communicates with pen/paper - Pain control on Dilaudid, Morphine 1mg, Fentanyl, Toradol - Diazepam for insomnia - Keppra 1000mg 1x for seizure prophylaxis after suspected seizure Thursday CV[facility] - MAP stable, no pressor support - tachy most likely due to sepsis, monitor Resp - Tracheostomy 07/25, downsize trach tube at LTAC - pneumothorax resolved, chest tube placed on water seal, repeat CXR in AM - Chest CT yesterday showed cavitary lesions, tx for possible aspergillus - blam for bedside bronchoscopy pending sputum cultures GI - NPO except for ice chips - peg feeds - Transaminitis improving - no PPI - continued intermittent diarrhea, flexi seal out ID - S/p Tigecycline (08/07) - New sepsis with fever and tachycardia - new lung consolidation - CT chest ordered, possibly fungal based on previous cultures - ID consulted (Dr. Martines) - blood urine and sputum cultures pending - Start zosyn q8h - Started on Voriconazole PO yesterday, switched to PO 130 mg IV BID - continue to watch LFTs on meds Heme - Hbg 11.3 - continue to monitor Derm - Multiple Sacral Ulcers (stage 4) - Daily wound care, air mattress, w/ frequent turns - Off-loading to all bony areas (heels, ankles, hips and tailbone) with Allevyn/Optifoam FEN - Jevity w/ Prosource to reduce volume and increase calories - monitor and replete lytes PRN - restart Banana bags for diarrhea, watch K levels DVT PPx - Heparin BID Visit type - Emergency Visit Emergency Visit: Yes ED Registration Date: 07/01/20 Care time: The patient presented to the Emergency Department on the above date and was hospitalized for further evaluation of their emergent condition. - New Patient This patient is new to me today: No - Critical Care Critical Care patient: Yes Total Critical Care Time (in minutes): 36 Critical Care Statement: The care of this patient involved high complexity decision making to prevent further life threatening deterioration of the patient's condition and/or to evaluate & treat vital organ system(s) failure or risk of failure. - Discharge Referral Referred to [facility] Med [facility] No ATTENDING PHYSICIAN STATEMENT I saw and evaluated the patient. I reviewed the resident's note and discussed the case with the resident. I agree with the resident's findings and plan as documented. SUBJECTIVE: OBJECTIVE: ASSESSMENT AND PLAN:
--- NOTE | 2020-08-14 15:16 | PN ---
Progress Note, Physician History of Present Illness: stable more awake and alert wbc trending down - Current Medication List Current Medications: Active Medications Amino Acids (Prosource No Carb Liquid Pkt) 30 ml PO DAILY [facility] Last Admin: 08/14/20 10:22 Dose: 30 ml Documented by: Ascorbic Acid (Vitamin C -) 500 mg PO DAILY [facility] Last Admin: 08/14/20 10:22 Dose: 500 mg Documented by: Banana Based Medical Food (Banatrol Plus Powder Packet) 1 packet PO TID [facility] Last Admin: 08/14/20 14:27 Dose: 1 packet Documented by: Collagenase (Santyl -) 1 applic TP DAILY [facility]; Protocol Last Admin: 08/14/20 10:22 Dose: 1 applic Documented by: Dextrose (D50w (Vial) -) 12.5 gm IVPUSH PRN PRN PRN Reason: HYPOGLYCEMIA Last Admin: 08/14/20 05:29 Dose: 12.5 gm Documented by: Diazepam (Valium -) 2 mg PO 2100 PRN PRN Reason: INSOMNIA Last Admin: 08/13/20 21:20 Dose: 2 mg Documented by: Famotidine (Pepcid) 20 mg PEG DAILY [facility] Last Admin: 08/14/20 10:22 Dose: 20 mg Documented by: Folic Acid (Folic Acid -) 1 mg NGT DAILY [facility] Last Admin: 08/14/20 10:09 Dose: 1 mg Documented by: Heparin Sodium (Porcine) (Heparin -) 5,000 unit SQ BID [facility] Last Admin: 08/14/20 10:09 Dose: 5,000 unit Documented by: Hydromorphone HCl (Dilaudid Vial -) 1 mg IVPUSH Q3H PRN PRN Reason: PAIN LEVEL 4 - 6 Last Admin: 08/14/20 10:08 Dose: 1 mg Documented by: Piperacillin Sod/Tazobactam (Sod 3.375 gm/ Dextrose) 50 mls @ 100 mls/hr IVPB Q8H-IV [facility]; Protocol Last Admin: 08/14/20 10:23 Dose: 100 mls/hr Documented by: Voriconazole 130 mg/ Sodium (Chloride) 113 mls @ 113 mls/hr IVPB BID [facility] Last Admin: 08/14/20 12:20 Dose: 113 mls/hr Documented by: Lactobacillus Acidophilus (Bacid -) 1 tab PEG DAILY [facility] Last Admin: 08/14/20 10:09 Dose: 1 tab Documented by: Lidocaine (Lidoderm Patch -) 1 patch TP DAILY [facility] Last Admin: 08/14/20 10:22 Dose: 1 patch Documented by: Lidocaine HCl (Xylocaine 5% Top. Ointment) 1 applic TP DAILY [facility] Last Admin: 08/14/20 10:22 Dose: 1 applic Documented by: Miscellaneous (Lidoderm Patch Removal) 1 each MC DAILY@2200 [facility] Last Admin: 08/13/20 23:39 Dose: 1 each Documented by: Morphine Sulfate (Morphine Sulfate) 1 mg IVPUSH Q6H PRN PRN Reason: PAIN LEVEL 1-3 Last Admin: 08/11/20 17:18 Dose: 1 mg Documented by: Multi-Ingredient Ointment (Zinc Oxide) 1 applic TP DAILY [facility] Last Admin: 08/14/20 10:23 Dose: 1 applic Documented by: Multivitamins/Minerals (Certavite-Antioxidant Liquid) 15 ml NGT DAILY [facility] Last Admin: 08/14/20 10:09 Dose: 15 ml Documented by: Thiamine HCl (Vitamin B1 Injection -) 100 mg IVPB DAILY [facility] Last Admin: 08/14/20 10:22 Dose: 100 mg Documented by: - Objective Vital Signs: Vital Signs Temperature 98.7 F 08/14/20 05:20 Pulse Rate 117 H 08/14/20 14:00 Respiratory Rate 20 08/14/20 14:00 Blood Pressure 99/77 08/14/20 14:00 O2 Sat by Pulse Oximetry (%) 97 08/14/20 14:00 Constitutional: Yes: No Distress, Calm, Other (failure to thrive) Cardiovascular: Yes: S1, S2 Respiratory: Yes: Other Gastrointestinal: Yes: Normal Bowel Sounds, Soft Integumentary: Yes: Other Labs: CBC, BMP 08/14/20 06:10 08/14/20 06:10 INR, PTT INR 1.49 (0.83-1.09) H 08/14/20 06:10 Fibrinogen 344.0 mg/dL (238-498) 07/21/20 06:00 - ....Imaging Cat Scan: Report Reviewed, Image Reviewed Assessment/Plan Pneumonia likely Aspiration UTI Sepsis Hyponatremia SBO resolving Alcohol/Heroin Abuse Anemia Failure to Thrive Severe Protein Calorie Malnutrition uti sacral wounds plan ct abx ct scan showing cavities patient started on voricanozale continue monitor lft consider bronch and lavage cc 38 min
[2020-08-14] MEDS: LIDOCAINE PATCH REMOVAL MC SCH (21:40)
[2020-08-14] MEDS: diazePAM 2 MG TABLET PO PRN (21:53)
--- NOTE | 2020-08-14 22:12 | PN ---
Progress Note, Physician History of Present Illness: Pt awake - Current Medication List Current Medications: Active Medications Amino Acids (Prosource No Carb Liquid Pkt) 30 ml PO DAILY RAUL Last Admin: 08/14/20 10:22 Dose: 30 ml Documented by: Ascorbic Acid (Vitamin C -) 500 mg PO DAILY RAUL Last Admin: 08/14/20 10:22 Dose: 500 mg Documented by: Banana Based Medical Food (Banatrol Plus Powder Packet) 1 packet PO TID RAUL Last Admin: 08/14/20 21:07 Dose: 1 packet Documented by: Collagenase (Santyl -) 1 applic TP DAILY RAUL; Protocol Last Admin: 08/14/20 10:22 Dose: 1 applic Documented by: Dextrose (D50w (Vial) -) 12.5 gm IVPUSH PRN PRN PRN Reason: HYPOGLYCEMIA Last Admin: 08/14/20 05:29 Dose: 12.5 gm Documented by: Diazepam (Valium -) 2 mg PO 2100 PRN PRN Reason: INSOMNIA Last Admin: 08/14/20 21:53 Dose: 2 mg Documented by: Famotidine (Pepcid) 20 mg PEG DAILY [facility] Last Admin: 08/14/20 10:22 Dose: 20 mg Documented by: Folic Acid (Folic Acid -) 1 mg NGT DAILY [facility] Last Admin: 08/14/20 10:09 Dose: 1 mg Documented by: Heparin Sodium (Porcine) (Heparin -) 5,000 unit SQ BID [facility] Last Admin: 08/14/20 21:07 Dose: 5,000 unit Documented by: Hydromorphone HCl (Dilaudid Vial -) 1 mg IVPUSH Q3H PRN PRN Reason: PAIN LEVEL 4 - 6 Last Admin: 08/14/20 17:30 Dose: 1 mg Documented by: Piperacillin Sod/Tazobactam (Sod 3.375 gm/ Dextrose) 50 mls @ 100 mls/hr IVPB Q8H-IV RAUL; Protocol Last Admin: 08/14/20 17:48 Dose: 100 mls/hr Documented by: Voriconazole 130 mg/ Sodium (Chloride) 113 mls @ 113 mls/hr IVPB BID [facility] Last Admin: 08/14/20 21:48 Dose: 113 mls/hr Documented by: Lactobacillus Acidophilus (Bacid -) 1 tab PEG DAILY RAUL Last Admin: 08/14/20 10:09 Dose: 1 tab Documented by: Lidocaine (Lidoderm Patch -) 1 patch TP DAILY [facility] Last Admin: 08/14/20 10:22 Dose: 1 patch Documented by: Lidocaine HCl (Xylocaine 5% Top. Ointment) 1 applic TP DAILY [facility] Last Admin: 08/14/20 10:22 Dose: 1 applic Documented by: Miscellaneous (Lidoderm Patch Removal) 1 each MC DAILY@2200 [facility] Last Admin: 08/14/20 21:40 Dose: 1 each Documented by: Morphine Sulfate (Morphine Sulfate) 1 mg IVPUSH Q6H PRN PRN Reason: PAIN LEVEL 1-3 Last Admin: 08/11/20 17:18 Dose: 1 mg Documented by: Multi-Ingredient Ointment (Zinc Oxide) 1 applic TP DAILY [facility] Last Admin: 08/14/20 10:23 Dose: 1 applic Documented by: Multivitamins/Minerals (Certavite-Antioxidant Liquid) 15 ml NGT DAILY [facility] Last Admin: 08/14/20 10:09 Dose: 15 ml Documented by: Thiamine HCl (Vitamin B1 Injection -) 100 mg IVPB DAILY [facility] Last Admin: 08/14/20 10:22 Dose: 100 mg Documented by: - Objective Vital Signs: Vital Signs Temperature 98.5 F 08/14/20 20:00 Pulse Rate 124 H 08/14/20 22:00 Respiratory Rate 20 08/14/20 22:00 Blood Pressure 104/80 08/14/20 22:00 O2 Sat by Pulse Oximetry (%) 98 08/14/20 22:00 Constitutional: Yes: Cachectic Cardiovascular: Yes: Tachycardia Respiratory: Yes: Diminished Gastrointestinal: Yes: WNL, Normal Bowel Sounds, Soft, Other ((+) PEG) Labs: CBC, BMP 08/14/20 06:10 08/14/20 06:10 INR, PTT INR 1.49 (0.83-1.09) H 08/14/20 06:10 Fibrinogen 344.0 mg/dL (238-498) 07/21/20 06:00 Problem List - Problems (1) Respiratory failure Code(s): J96.90 - RESPIRATORY FAILURE, UNSP, UNSP W HYPOXIA OR HYPERCAPNIA (2) Sepsis Code(s): A41.9 - SEPSIS, UNSPECIFIED ORGANISM Qualifiers: Sepsis type: sepsis due to unspecified organism Sepsis acute organ dysfunction status: unspecified Qualified Code(s): A41.9 - Sepsis, unspecified organism (3) Anemia Code(s): D64.9 - ANEMIA, UNSPECIFIED (4) At risk for electrolyte imbalance Code(s): Z91.89 - OT PERSONAL RISK FACTORS, NOT ELSEWHERE CLASSIFIED (5) Liver cirrhosis, alcoholic Code(s): K70.30 - ALCOHOLIC CIRRHOSIS OF LIVER WITHOUT ASCITES (6) Hypoalbuminemia Code(s): E88.09 - OT DISORDERS OF PLASMA-PROTEIN METABOLISM, NEC (7) Substance abuse Code(s): F19.10 - OTHER PSYCHOACTIVE SUBSTANCE ABUSE, UNCOMPLICATED (8) Cachexia Code(s): R64 - CACHEXIA (9) Severe malnutrition Code(s): E43 - UNSPECIFIED SEVERE PROTEIN-CALORIE MALNUTRITION (10) Sacral ulcer Code(s): L98.429 - NON-PRESSURE CHRONIC ULCER OF BACK WITH UNSPECIFIED SEVERITY (11) SBO (small bowel obstruction) Code(s): K56.609 - UNSP INTESTNL OBST, UNSP TO PARTIAL VERSUS COMPLETE OBST
[2020-08-15] MEDS ORDERED: DEXTROSE 5%-WATER - 50 ML IVPB ONE ×4 (01:21→21:26)
[2020-08-15] MEDS ORDERED: PIPERACILLIN/TAZOBACTAM 3.375 GM VIAL IVPB ONE ×4 (01:21→21:26)
[2020-08-15] MEDS: PIPERACILLIN/TAZOB 3.375 GM 3.375 GM in DEXTROSE 5%-WATER - 50 ML IVPB SCH ×3 (01:48→17:22)
[2020-08-15] MEDS: HYDROmorphone HCl 2 MG/ML VIAL IVPUSH PRN ×3 (05:36→19:46)
[2020-08-15] MEDS: BANATROL PLUS POWDER PACKET PO SCH ×3 (05:36→22:20)
[2020-08-15 07:58] LABS: HEMATOCRIT 37.3 % (32.4-45.2); HEMOGLOBIN 12.5 GM/dL (10.7-15.3); MCH 30.3 pg (25.7-33.7); MCHC 33.6 g/dl (32.0-36.0); MEAN CELL VOLUME 90.2 fl (80-96); PLATELET COUNT 465 K/MM3 (134-434); RBC 4.14 M/mm3 (3.60-5.2); RDW 17.2 % (11.6-15.6); WHITE BLOOD COUNT 13.4 K/mm3 (4.0-10.0)
[2020-08-15 08:34] LABS: ALBUMIN 1.2 g/dl (3.4-5.0); BILIRUBIN,TOTAL 0.8 mg/dL (0.2-1); BLOOD UREA NITROGEN 22.4 mg/dL (7-18); CALCIUM 7.6 mg/dL (8.5-10.1); CREATININE 0.3 mg/dL (0.55-1.3); MAGNESIUM 2.1 mg/dL (1.8-2.4); PHOSPHOROUS 4.6 mg/dL (2.5-4.9); POTASSIUM 4.4 mmol/L (3.5-5.1); TOT PROT 4.6 g/dl (6.4-8.2)
[2020-08-15] MEDS ORDERED: PT OWN MED DRAWER 7, Y5N ONE (08:38)
[2020-08-15] MEDS ORDERED: SODIUM CHLORIDE 1,000 ML IV SCH (09:00)
[2020-08-15] MEDS: LACTOBACILLUS ACIDOPHILUS 1 TABLET PEG SCH (09:11)
[2020-08-15] MEDS: MULTIVIT-MINERALS ORAL LIQUID NGT SCH (09:11)
[2020-08-15] MEDS: HEPARIN NA (PORCINE) 5,000 UNITS/ML 1ML VIAL SQ SCH ×2 (09:12→22:20)
[2020-08-15] MEDS: FAMOTIDINE 40 MG/5 ML ORAL SUSPENSION PEG SCH (09:12)
[2020-08-15] MEDS: ASCORBIC ACID 500 MG TABLET (FP) PO SCH (09:12)
[2020-08-15] MEDS: THIAMINE HCL 200 MG/2 ML VIAL IVPB SCH (09:12)
[2020-08-15] MEDS: LIDOCAINE 5% TOPICAL PATCH TP SCH (09:12)
[2020-08-15] MEDS: FOLIC ACID 1 MG TABLET (FP) NGT SCH (09:12)
[2020-08-15] MEDS: AMINO ACIDS/PROTEIN HYDROLYS 30 ML LIQUID.PKT PO SCH (09:12)
[2020-08-15] MEDS: VORICONAZOLE IVPB SCH ×2 (10:26→22:47)
[2020-08-15] MEDS: SODIUM CHLORIDE IVPB SCH ×2 (10:26→22:47)
[2020-08-15 11:05] LABS: INR 1.15 (0.83-1.09); PROTHROMBIN TIME (PATIENT) 13.5 SEC (9.7-13.0)
[2020-08-15 11:07] LABS: ACTIVATED PTT 32.1 SECONDS (25.2-36.5)
[2020-08-15] MEDS: COLLAGENASE CLOSTRIDIUM HIST. 30 GRAMS TUBE TP SCH (12:08)
[2020-08-15] MEDS: LIDOCAINE HCL 5% TOP OINTMENT 50 GM TUBE TP SCH (12:08)
[2020-08-15] MEDS: ZINC OXIDE 20% TOPICAL OINTMENT 30 GM TUBE TP SCH (12:08)
--- NOTE | 2020-08-15 12:19 | PN ---
Progress Note, Physician - Current Medication List Current Medications: Active Medications Amino Acids (Prosource No Carb Liquid Pkt) 30 ml PO DAILY [facility] Last Admin: 08/15/20 09:12 Dose: 30 ml Documented by: Ascorbic Acid (Vitamin C -) 500 mg PO DAILY [facility]UL Last Admin: 08/15/20 09:12 Dose: 500 mg Documented by: Banana Based Medical Food (Banatrol Plus Powder Packet) 1 packet PO TID RAUL Last Admin: 08/15/20 05:36 Dose: 1 packet Documented by: Collagenase (Santyl -) 1 applic TP DAILY [facility]; Protocol Last Admin: 08/15/20 12:08 Dose: 1 applic Documented by: Dextrose (D50w (Vial) -) 12.5 gm IVPUSH PRN PRN PRN Reason: HYPOGLYCEMIA Last Admin: 08/14/20 05:29 Dose: 12.5 gm Documented by: Diazepam (Valium -) 2 mg PO 2100 PRN PRN Reason: INSOMNIA Last Admin: 08/14/20 21:53 Dose: 2 mg Documented by: Famotidine (Pepcid) 20 mg PEG DAILY [facility] Last Admin: 08/15/20 09:12 Dose: 20 mg Documented by: Folic Acid (Folic Acid -) 1 mg NGT DAILY [facility] Last Admin: 08/15/20 09:12 Dose: 1 mg Documented by: Heparin Sodium (Porcine) (Heparin -) 5,000 unit SQ BID [facility] Last Admin: 08/15/20 09:12 Dose: 5,000 unit Documented by: Hydromorphone HCl (Dilaudid Vial -) 1 mg IVPUSH Q3H PRN PRN Reason: PAIN LEVEL 4 - 6 Last Admin: 08/15/20 10:47 Dose: 1 mg Documented by: Piperacillin Sod/Tazobactam (Sod 3.375 gm/ Dextrose) 50 mls @ 100 mls/hr IVPB Q8H-IV RAUL; Protocol Last Admin: 08/15/20 09:12 Dose: 100 mls/hr Documented by: Voriconazole 130 mg/ Sodium (Chloride) 113 mls @ 113 mls/hr IVPB BID [facility] Last Admin: 08/15/20 10:26 Dose: 113 mls/hr Documented by: Sodium Chloride (Normal Saline -) 1,000 mls @ 42 mls/hr IV ASDIR RAUL Stop: 08/16/20 08:49 Last Admin: 08/15/20 10:26 Dose: 42 mls/hr Documented by: Lactobacillus Acidophilus (Bacid -) 1 tab PEG DAILY [facility] Last Admin: 08/15/20 09:11 Dose: 1 tab Documented by: Lidocaine (Lidoderm Patch -) 1 patch TP DAILY [facility] Last Admin: 08/15/20 09:12 Dose: 1 patch Documented by: Lidocaine HCl (Xylocaine 5% Top. Ointment) 1 applic TP DAILY [facility] Last Admin: 08/15/20 12:08 Dose: 1 applic Documented by: Miscellaneous (Lidoderm Patch Removal) 1 each MC DAILY@2200 [facility] Last Admin: 08/14/20 21:40 Dose: 1 each Documented by: Morphine Sulfate (Morphine Sulfate) 1 mg IVPUSH Q6H PRN PRN Reason: PAIN LEVEL 1-3 Last Admin: 08/11/20 17:18 Dose: 1 mg Documented by: Multi-Ingredient Ointment (Zinc Oxide) 1 applic TP DAILY [facility] Last Admin: 08/15/20 12:08 Dose: 1 applic Documented by: Multivitamins/Minerals (Certavite-Antioxidant Liquid) 15 ml NGT DAILY [facility] Last Admin: 08/15/20 09:11 Dose: 15 ml Documented by: Thiamine HCl (Vitamin B1 Injection -) 100 mg IVPB DAILY [facility] Last Admin: 08/15/20 09:12 Dose: 100 mg Documented by: - Objective Vital Signs: Vital Signs Temperature 97.9 F 08/15/20 10:34 Pulse Rate 109 H 08/15/20 10:34 Respiratory Rate 22 H 08/15/20 10:34 Blood Pressure 100/76 08/15/20 10:34 O2 Sat by Pulse Oximetry (%) 98 08/15/20 10:34 Labs: CBC, BMP 08/15/20 06:40 08/15/20 06:40 INR, PTT INR 1.15 (0.83-1.09) H 08/15/20 06:40 Fibrinogen 344.0 mg/dL (238-498) 07/21/20 06:00
--- NOTE | 2020-08-15 12:37 | PN ---
Teaching Attending Note Name of Resident: Yadira Hamilton ATTENDING PHYSICIAN STATEMENT I saw and evaluated the patient. I reviewed the resident's note and discussed the case with the resident. I agree with the resident's findings and plan as documented. SUBJECTIVE: Pt seen and examined in the ICU. Vented, awake. Gram stain from sputum growing gram negative bacilli. No fevers recorded. OBJECTIVE: Vital Signs Period Temp Pulse Resp BP Sys/Campbell Pulse Ox Last 24 Hr 97.9 F-98.6 F 101-124 16-23 96-113/74-82 94-100 Intake & Output 08/12/20 08/13/20 08/14/20 08/15/20 23:59 23:59 23:59 23:59 Intake Total 1540 1070 930 490 Output Total 013 449 4483 500 Balance 930 590 -210 -10 Weight 33.112 kg Gen: vented, cachectic Heart: RRR Lung: scattered rhonchi Abd: soft, nontender, +ascites Ext: no edema CBC, BMP 08/15/20 06:40 08/15/20 06:40 Active Medications Amino Acids (Prosource No Carb Liquid Pkt) 30 ml PO DAILY [facility] Last Admin: 08/15/20 09:12 Dose: 30 ml Documented by: Ascorbic Acid (Vitamin C -) 500 mg PO DAILY [facility] Last Admin: 08/15/20 09:12 Dose: 500 mg Documented by: Banana Based Medical Food (Banatrol Plus Powder Packet) 1 packet PO TID [facility] Last Admin: 08/15/20 05:36 Dose: 1 packet Documented by: Collagenase (Santyl -) 1 applic TP DAILY [facility]; Protocol Last Admin: 08/15/20 12:08 Dose: 1 applic Documented by: Dextrose (D50w (Vial) -) 12.5 gm IVPUSH PRN PRN PRN Reason: HYPOGLYCEMIA Last Admin: 08/14/20 05:29 Dose: 12.5 gm Documented by: Diazepam (Valium -) 2 mg PO 2100 PRN PRN Reason: INSOMNIA Last Admin: 08/14/20 21:53 Dose: 2 mg Documented by: Famotidine (Pepcid) 20 mg PEG DAILY [facility] Last Admin: 08/15/20 09:12 Dose: 20 mg Documented by: Folic Acid (Folic Acid -) 1 mg NGT DAILY [facility] Last Admin: 08/15/20 09:12 Dose: 1 mg Documented by: Heparin Sodium (Porcine) (Heparin -) 5,000 unit SQ BID [facility] Last Admin: 08/15/20 09:12 Dose: 5,000 unit Documented by: Hydromorphone HCl (Dilaudid Vial -) 1 mg IVPUSH Q3H PRN PRN Reason: PAIN LEVEL 4 - 6 Last Admin: 08/15/20 10:47 Dose: 1 mg Documented by: Piperacillin Sod/Tazobactam (Sod 3.375 gm/ Dextrose) 50 mls @ 100 mls/hr IVPB Q8H-IV [facility]; Protocol Last Admin: 08/15/20 09:12 Dose: 100 mls/hr Documented by: Voriconazole 130 mg/ Sodium (Chloride) 113 mls @ 113 mls/hr IVPB BID [facility] Last Admin: 08/15/20 10:26 Dose: 113 mls/hr Documented by: Sodium Chloride (Normal Saline -) 1,000 mls @ 42 mls/hr IV ASDIR [facility] Stop: 08/16/20 08:49 Last Admin: 08/15/20 10:26 Dose: 42 mls/hr Documented by: Lactobacillus Acidophilus (Bacid -) 1 tab PEG DAILY [facility] Last Admin: 08/15/20 09:11 Dose: 1 tab Documented by: Lidocaine (Lidoderm Patch -) 1 patch TP DAILY [facility] Last Admin: 08/15/20 09:12 Dose: 1 patch Documented by: Lidocaine HCl (Xylocaine 5% Top. Ointment) 1 applic TP DAILY [facility] Last Admin: 08/15/20 12:08 Dose: 1 applic Documented by: Miscellaneous (Lidoderm Patch Removal) 1 each MC DAILY@2200 [facility] Last Admin: 08/14/20 21:40 Dose: 1 each Documented by: Morphine Sulfate (Morphine Sulfate) 1 mg IVPUSH Q6H PRN PRN Reason: PAIN LEVEL 1-3 Last Admin: 08/11/20 17:18 Dose: 1 mg Documented by: Multi-Ingredient Ointment (Zinc Oxide) 1 applic TP DAILY [facility] Last Admin: 08/15/20 12:08 Dose: 1 applic Documented by: Multivitamins/Minerals (Certavite-Antioxidant Liquid) 15 ml NGT DAILY [facility] Last Admin: 08/15/20 09:11 Dose: 15 ml Documented by: Thiamine HCl (Vitamin B1 Injection -) 100 mg IVPB DAILY [facility] Last Admin: 08/15/20 09:12 Dose: 100 mg Documented by: ASSESSMENT AND PLAN: Acute Hypoxic Respiratory Failure s/p Tracheostomy Pneumonia likely Aspiration UTI Sepsis Hyponatremia Small Bowel Obstruction Ascites s/p Peritoneal drain placement Alcohol/Heroin Abuse Anemia/Thrombocytopenia Failure to Thrive Severe Protein Calorie Malnutrition Refeeding Syndrome - continue antibiotics - will obtain BAL culture - can likely stop voriconazole - chest tube to water seal - pain control - monitor urine output, creatinine - monitor H/H - completed antibiotics - off pressors, maintain MAP >65 - titrate FiO2 to keep SpO2 >90% - spontaneous breathing trials as tolerated - will downsize trach - enteral feeds - DVT/GI prophylaxis - continue ICU monitoring - for LTACH placement
[2020-08-15] MEDS ORDERED: MIDAZOLAM HCL 2 MG/2 ML SINGLE DOSE VIAL IVPUSH ONE ×2 (13:04→14:37)
--- NOTE | 2020-08-15 13:11 | PN ---
Progress Note, Physician History of Present Illness: Pt seen and examined at beside. She is awake and appears comfortable. - Current Medication List Current Medications: Active Medications Amino Acids (Prosource No Carb Liquid Pkt) 30 ml PO DAILY [facility] Last Admin: 08/15/20 09:12 Dose: 30 ml Documented by: Ascorbic Acid (Vitamin C -) 500 mg PO DAILY [facility] Last Admin: 08/15/20 09:12 Dose: 500 mg Documented by: Banana Based Medical Food (Banatrol Plus Powder Packet) 1 packet PO TID [facility] Last Admin: 08/15/20 13:01 Dose: 1 packet Documented by: Collagenase (Santyl -) 1 applic TP DAILY [facility]; Protocol Last Admin: 08/15/20 12:08 Dose: 1 applic Documented by: Dextrose (D50w (Vial) -) 12.5 gm IVPUSH PRN PRN PRN Reason: HYPOGLYCEMIA Last Admin: 08/14/20 05:29 Dose: 12.5 gm Documented by: Diazepam (Valium -) 2 mg PO 2100 PRN PRN Reason: INSOMNIA Last Admin: 08/14/20 21:53 Dose: 2 mg Documented by: Famotidine (Pepcid) 20 mg PEG DAILY [facility] Last Admin: 08/15/20 09:12 Dose: 20 mg Documented by: Fentanyl (Sublimaze Injection -) 50 mcg IVPUSH ONCE ONE Stop: 08/15/20 13:05 Folic Acid (Folic Acid -) 1 mg NGT DAILY [facility] Last Admin: 08/15/20 09:12 Dose: 1 mg Documented by: Heparin Sodium (Porcine) (Heparin -) 5,000 unit SQ BID [facility] Last Admin: 08/15/20 09:12 Dose: 5,000 unit Documented by: Hydromorphone HCl (Dilaudid Vial -) 1 mg IVPUSH Q3H PRN PRN Reason: PAIN LEVEL 4 - 6 Last Admin: 08/15/20 10:47 Dose: 1 mg Documented by: Piperacillin Sod/Tazobactam (Sod 3.375 gm/ Dextrose) 50 mls @ 100 mls/hr IVPB Q8H-IV [facility]; Protocol Last Admin: 08/15/20 09:12 Dose: 100 mls/hr Documented by: Voriconazole 130 mg/ Sodium (Chloride) 113 mls @ 113 mls/hr IVPB BID [facility] Last Admin: 08/15/20 10:26 Dose: 113 mls/hr Documented by: Sodium Chloride (Normal Saline -) 1,000 mls @ 42 mls/hr IV ASDIR [facility] Stop: 08/16/20 08:49 Last Admin: 08/15/20 10:26 Dose: 42 mls/hr Documented by: Lactobacillus Acidophilus (Bacid -) 1 tab PEG DAILY [facility] Last Admin: 08/15/20 09:11 Dose: 1 tab Documented by: Lidocaine (Lidoderm Patch -) 1 patch TP DAILY [facility] Last Admin: 08/15/20 09:12 Dose: 1 patch Documented by: Lidocaine HCl (Xylocaine 5% Top. Ointment) 1 applic TP DAILY [facility] Last Admin: 08/15/20 12:08 Dose: 1 applic Documented by: Midazolam HCl (Versed -) 4 mg IVPUSH ONCE ONE Stop: 08/15/20 13:05 Miscellaneous (Lidoderm Patch Removal) 1 each MC DAILY@2200 [facility] Last Admin: 08/14/20 21:40 Dose: 1 each Documented by: Morphine Sulfate (Morphine Sulfate) 1 mg IVPUSH Q6H PRN PRN Reason: PAIN LEVEL 1-3 Last Admin: 08/11/20 17:18 Dose: 1 mg Documented by: Multi-Ingredient Ointment (Zinc Oxide) 1 applic TP DAILY [facility] Last Admin: 08/15/20 12:08 Dose: 1 applic Documented by: Multivitamins/Minerals (Certavite-Antioxidant Liquid) 15 ml NGT DAILY [facility] Last Admin: 08/15/20 09:11 Dose: 15 ml Documented by: Thiamine HCl (Vitamin B1 Injection -) 100 mg IVPB DAILY [facility] Last Admin: 08/15/20 09:12 Dose: 100 mg Documented by: - Objective Vital Signs: Vital Signs Temperature 97.9 F 08/15/20 10:34 Pulse Rate 103 H 08/15/20 12:00 Respiratory Rate 23 H 08/15/20 12:00 Blood Pressure 92/73 08/15/20 12:00 O2 Sat by Pulse Oximetry (%) 98 08/15/20 12:00 Constitutional: Yes: Calm, Cachectic Eyes: Yes: Conjunctiva Clear HENT: Yes: Atraumatic Neck: Yes: Supple Cardiovascular: Yes: S1, S2 Respiratory: Yes: Mechanically Ventilated Gastrointestinal: Yes: Soft Genitourinary: Yes: Uribe Present Musculoskeletal: Yes: Muscle Weakness Edema: No Neurological: Yes: Oriented Psychiatric: Yes: Oriented Labs: CBC, BMP 08/15/20 06:40 08/15/20 06:40 INR, PTT INR 1.15 (0.83-1.09) H 08/15/20 06:40 Fibrinogen 344.0 mg/dL (238-498) 07/21/20 06:00 Problem List - Problems (1) Hypoglycemia Code(s): E16.2 - HYPOGLYCEMIA, UNSPECIFIED (2) Sepsis Code(s): A41.9 - SEPSIS, UNSPECIFIED ORGANISM Qualifiers: Sepsis type: sepsis due to unspecified organism Sepsis acute organ dysfunction status: unspecified Qualified Code(s): A41.9 - Sepsis, unspecified organism (3) Hypoalbuminemia Code(s): E88.09 - OTH DISORDERS OF PLASMA-PROTEIN METABOLISM, NEC (4) Hyponatremia Code(s): E87.1 - HYPO-OSMOLALITY AND HYPONATREMIA Assessment/Plan Current Medications Generic Name Dose Route Start Last Admin Trade Name Freq PRN Reason Stop Dose Admin Amino Acids 30 ml 08/08/20 12:45 08/15/20 09:12 Prosource No Carb Liquid Pkt PO 30 ml DAILY [facility] Administration Ascorbic Acid 500 mg 07/27/20 13:00 08/15/20 09:12 Vitamin C - PO 500 mg DAILY [facility] Administration Banana Based Medical Food 1 packet 08/13/20 14:00 08/15/20 13:01 Banatrol Plus Powder Packet PO 1 packet TID [facility] Administration Collagenase 1 applic 08/05/20 19:30 08/15/20 12:08 Santyl - TP 1 applic DAILY [facility] Administration Protocol Dextrose 12.5 gm 07/08/20 07:08 08/14/20 05:29 D50w (Vial) - IVPUSH 12.5 gm PRN PRN Administration HYPOGLYCEMIA Diazepam 2 mg 08/10/20 10:41 08/14/20 21:53 Valium - PO 2 mg 2100 PRN Administration INSOMNIA Famotidine 20 mg 08/04/20 10:45 08/15/20 09:12 Pepcid PEG 20 mg DAILY [facility] Administration Fentanyl 50 mcg 08/15/20 13:04 Sublimaze Injection - IVPUSH 08/15/20 13:05 ONCE ONE Folic Acid 1 mg 07/06/20 10:00 08/15/20 09:12 Folic Acid - NGT 1 mg DAILY [facility] Administration Heparin Sodium (Porcine) 5,000 unit 07/20/20 10:00 08/15/20 09:12 Heparin - SQ 5,000 unit BID [facility] Administration Hydromorphone HCl 1 mg 07/26/20 13:39 08/15/20 10:47 Dilaudid Vial - IVPUSH 1 mg Q3H PRN Administration PAIN LEVEL 4 - 6 Piperacillin Sod/Tazobactam 50 mls @ 100 mls/hr 08/13/20 11:45 08/15/20 09:12 Sod 3.375 gm/ Dextrose IVPB 100 mls/hr Q8H-IV [facility] Administration Protocol Voriconazole 130 mg/ Sodium 113 mls @ 113 mls/hr 08/14/20 11:30 08/15/20 10:26 Chloride IVPB 113 mls/hr BID [facility] Administration Sodium Chloride 1,000 mls @ 42 mls/hr 08/15/20 09:00 08/15/20 10:26 Normal Saline - IV 08/16/20 08:49 42 mls/hr ASDIR [facility] Administration Lactobacillus Acidophilus 1 tab 08/08/20 12:45 08/15/20 09:11 Bacid - PEG 1 tab DAILY [facility] Administration Lidocaine 1 patch 08/09/20 11:30 08/15/20 09:12 Lidoderm Patch - TP 1 patch DAILY [facility] Administration Lidocaine HCl 1 applic 07/25/20 21:50 08/15/20 12:08 Xylocaine 5% Top. Ointment TP 1 applic DAILY [facility] Administration Midazolam HCl 4 mg 08/15/20 13:04 Versed - IVPUSH 08/15/20 13:05 ONCE ONE Miscellaneous 1 each 08/09/20 23:00 08/14/20 21:40 Lidoderm Patch Removal MC 1 each DAILY@2200 [facility] Administration Morphine Sulfate 1 mg 08/08/20 10:43 08/11/20 17:18 Morphine Sulfate IVPUSH 1 mg Q6H PRN Administration PAIN LEVEL 1-3 Multi-Ingredient Ointment 1 applic 07/19/20 13:30 08/15/20 12:08 Zinc Oxide TP 1 applic DAILY [facility] Administration Multivitamins/Minerals 15 ml 07/06/20 11:45 08/15/20 09:11 Certavite-Antioxidant Liquid NGT 15 ml DAILY [facility] Administration Thiamine HCl 100 mg 07/11/20 12:45 08/15/20 09:12 Vitamin B1 Injection - IVPB 100 mg DAILY [facility] Administration Impression 1. azotemia 2. hyponatremia 3. hyperkalemia 4. hypotension 5. sepsis 6. sbo 7. uti 8. liver cirrhosis 9. hypoalbuminemia 10. etoh abuse 11. substance abuse 12. psoriasis 13. acute resp failure 14. malnutrition 15. 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 ascites Plan - cont feeds - monitor lytes - vent support - monitor chest tube output - lytes overall stable - monitor weight - dietary follow up
--- NOTE | 2020-08-15 13:32 | PN ---
Physical Exam: SUBJECTIVE: Patient seen and examined OBJECTIVE: Vital Signs Period Temp Pulse Resp BP Sys/Campbell Pulse Ox Last 24 Hr 97.9 F-98.6 F 101-124 16-26 92-113/73-82 94-100 GENERAL: The patient is awake, alert, and fully oriented HEAD: temporal wasting EYES: PERRL, EOMI ENT: moist mucous membranes. NECK: Trach in place LUNGS: decreased breath sounds, worse on L HEART: Regular rhythm, tachy ABDOMEN: Peg in place, peritoneal drain on R side, Chest tube in place of L side EXTREMITIES: warm, well-perfused, mild edema BL NEUROLOGICAL: Cranial nerves II through XII grossly intact. PSYCH: Normal mood, normal affect. SKIN: sacral ulcer stage 4 Intake & Output 08/15/20 08/15/20 08/15/20 07:59 15:59 23:59 Intake Total 490 1352 Output Total 500 400 Balance -10 952 Intake: IV 952 saline lock 1 952 IVPB 50 Tube Feeding 330 Tube Irrigant (Tube 110 400 Feeding Water) Output: Chest Tube Drainage 0 Left Lateral Chest 0 Drainage 100 Right Abdomen 100 Urine 400 400 Uribe 400 400 Other: Voiding Method Indwelling Catheter Indwelling Catheter Bowel Movement No Laboratory Results - last 24 hr 08/14/20 08/14/20 08/15/20 17:06 21:42 05:42 WBC RBC Hgb Hct MCV MCH MCHC RDW Plt Count MPV PT with INR INR PTT (Actin FS) Sodium Potassium Chloride Carbon Dioxide Anion Gap BUN Creatinine Est GFR (CKD-EPI)AfAm Est GFR (CKD-EPI)NonAf POC Glucometer 79 102 98 Random Glucose Calcium Phosphorus Magnesium Total Bilirubin AST ALT Alkaline Phosphatase Total Protein Albumin 08/15/20 08/15/20 08/15/20 06:40 06:40 06:40 WBC 13.4 H RBC 4.14 Hgb 12.5 Hct 37.3 MCV 90.2 MCH 30.3 MCHC 33.6 RDW 17.2 H Plt Count 465 H MPV 8.0 PT with INR 13.50 H INR 1.15 H PTT (Actin FS) 32.1 Sodium 135 L Potassium 4.4 Chloride 102 Carbon Dioxide 25 Anion Gap 9 BUN 22.4 H Creatinine 0.3 L Est GFR (CKD-EPI)AfAm 171.92 Est GFR (CKD-EPI)NonAf 148.34 POC Glucometer Random Glucose 84 Calcium 7.6 L Phosphorus 4.6 Magnesium 2.1 Total Bilirubin 0.8 AST 73 H ALT 64 H Alkaline Phosphatase 641 H Total Protein 4.6 L Albumin 1.2 L 08/15/20 12:58 WBC RBC Hgb Hct MCV MCH MCHC RDW Plt Count MPV PT with INR INR PTT (Actin FS) Sodium Potassium Chloride Carbon Dioxide Anion Gap BUN Creatinine Est GFR (CKD-EPI)AfAm Est GFR (CKD-EPI)NonAf POC Glucometer 92 Random Glucose Calcium Phosphorus Magnesium Total Bilirubin AST ALT Alkaline Phosphatase Total Protein Albumin Active Medications Generic Name Dose Route Start Last Admin Trade Name Freq PRN Reason Stop Dose Admin Amino Acids 30 ml 08/08/20 12:45 08/15/20 09:12 Prosource No Carb Liquid Pkt PO 30 ml DAILY [facility] Administration Ascorbic Acid 500 mg 07/27/20 13:00 08/15/20 09:12 Vitamin C - PO 500 mg DAILY [facility] Administration Banana Based Medical Food 1 packet 08/13/20 14:00 08/15/20 13:01 Banatrol Plus Powder Packet PO 1 packet TID [facility] Administration Collagenase 1 applic 08/05/20 19:30 08/15/20 12:08 Santyl - TP 1 applic DAILY [facility] Administration Protocol Dextrose 12.5 gm 07/08/20 07:08 08/14/20 05:29 D50w (Vial) - IVPUSH 12.5 gm PRN PRN Administration HYPOGLYCEMIA Diazepam 2 mg 08/10/20 10:41 08/14/20 21:53 Valium - PO 2 mg 2100 PRN Administration INSOMNIA Famotidine 20 mg 08/04/20 10:45 08/15/20 09:12 Pepcid PEG 20 mg DAILY [facility] Administration Fentanyl 50 mcg 08/15/20 13:04 Sublimaze Injection - IVPUSH 08/15/20 13:05 ONCE ONE Folic Acid 1 mg 07/06/20 10:00 08/15/20 09:12 Folic Acid - NGT 1 mg DAILY [facility] Administration Heparin Sodium (Porcine) 5,000 unit 07/20/20 10:00 08/15/20 09:12 Heparin - SQ 5,000 unit BID [facility] Administration Hydromorphone HCl 1 mg 07/26/20 13:39 08/15/20 10:47 Dilaudid Vial - IVPUSH 1 mg Q3H PRN Administration PAIN LEVEL 4 - 6 Piperacillin Sod/Tazobactam 50 mls @ 100 mls/hr 08/13/20 11:45 08/15/20 09:12 Sod 3.375 gm/ Dextrose IVPB 100 mls/hr Q8H-IV [facility] Administration Protocol Voriconazole 130 mg/ Sodium 113 mls @ 113 mls/hr 08/14/20 11:30 08/15/20 10:26 Chloride IVPB 113 mls/hr BID [facility] Administration Sodium Chloride 1,000 mls @ 42 mls/hr 08/15/20 09:00 08/15/20 10:26 Normal Saline - IV 08/16/20 08:49 42 mls/hr ASDIR [facility] Administration Lactobacillus Acidophilus 1 tab 08/08/20 12:45 08/15/20 09:11 Bacid - PEG 1 tab DAILY [facility] Administration Lidocaine 1 patch 08/09/20 11:30 08/15/20 09:12 Lidoderm Patch - TP 1 patch DAILY [facility] Administration Lidocaine HCl 1 applic 07/25/20 21:50 08/15/20 12:08 Xylocaine 5% Top. Ointment TP 1 applic DAILY [facility] Administration Midazolam HCl 4 mg 08/15/20 13:04 Versed - IVPUSH 08/15/20 13:05 ONCE ONE Miscellaneous 1 each 08/09/20 23:00 08/14/20 21:40 Lidoderm Patch Removal MC 1 each DAILY@2200 [facility] Administration Morphine Sulfate 1 mg 08/08/20 10:43 08/11/20 17:18 Morphine Sulfate IVPUSH 1 mg Q6H PRN Administration PAIN LEVEL 1-3 Multi-Ingredient Ointment 1 applic 07/19/20 13:30 08/15/20 12:08 Zinc Oxide TP 1 applic DAILY [facility] Administration Multivitamins/Minerals 15 ml 07/06/20 11:45 08/15/20 09:11 Certavite-Antioxidant Liquid NGT 15 ml DAILY [facility] Administration Thiamine HCl 100 mg 07/11/20 12:45 08/15/20 09:12 Vitamin B1 Injection - IVPB 100 mg DAILY [facility] Administration ASSESSMENT/PLAN: 35F with PMH of malnutrition 2/2 bulimia and polysubstance use disorder, cirrhosis, & heroin abuse, in ICU with sepsis and acute hypoxic respiratory failure, now s/p trach, abdominal peritoneal drain, PEG placement, and L chest tube. 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 - Pain control on Dilaudid, Morphine 1mg, - Diazepam for insomnia CVS - MAP stable, no pressor support - tachy most likely due to sepsis, monitor Resp - Tracheostomy 07/25 - pneumothorax resolved, chest tube placed on day 2 water seal - Chest CT yesterday showed cavitary lesions, tx for possible aspergillus - bronchoscopy with lavage today, sputum cultures collected - repeat CXR showed worsening atelectasis, continue to monitor consider putting on PEEP now that chest tube suction off - Trach replaced with size 6 today (08/15) GI - NPO except for ice chips - peg feeds - Transaminitis, increasing likely due to antifungal meds - no PPI - diarrhea resolving, continue to monitor ID - S/p Tigecycline (08/07) - New sepsis with fever and tachycardia - new lung consolidation - CT chest ordered, possibly fungal based on previous cultures - ID consulted (Dr. Martines) - blood urine and sputum cultures, lactose fermenting bacteria - zosyn q8h day 3 - Voriconazole day 2 >> consider stopping tomorrow - LFT increasing Heme - continue to monitor Hbg - transfuse if hbg < 7 Derm - Multiple Sacral Ulcers (stage 4) - Daily wound care, air mattress, w/ frequent turns - Off-loading to all bony areas (heels, ankles, hips and tailbone) with Allevyn/Optifoam FEN - Jevity w/ Prosource to reduce volume and increase calories - monitor and replete lytes PRN - restart Banana bags for diarrhea, watch K levels - 1 bag NS 42cc/hr - monitor sodium levels DVT PPx - Heparin BID Visit type - Emergency Visit Emergency Visit: Yes ED Registration Date: 07/01/20 Care time: The patient presented to the Emergency Department on the above date and was hospitalized for further evaluation of their emergent condition. - New Patient This patient is new to me today: No - Critical Care Critical Care patient: Yes Total Critical Care Time (in minutes): 37 Critical Care Statement: The care of this patient involved high complexity decision making to prevent further life threatening deterioration of the patient's condition and/or to evaluate & treat vital organ system(s) failure or risk of failure. - Discharge Referral Referred to [facility] No ATTENDING PHYSICIAN STATEMENT I saw and evaluated the patient. I reviewed the resident's note and discussed the case with the resident. I agree with the resident's findings and plan as documented. SUBJECTIVE: OBJECTIVE: ASSESSMENT AND PLAN:
--- NOTE | 2020-08-15 14:25 | PN ---
Progress Note, Physician History of Present Illness: AWAKE - Current Medication List Current Medications: Active Medications Amino Acids (Prosource No Carb Liquid Pkt) 30 ml PO DAILY [facility] Last Admin: 08/15/20 09:12 Dose: 30 ml Documented by: Ascorbic Acid (Vitamin C -) 500 mg PO DAILY [facility] Last Admin: 08/15/20 09:12 Dose: 500 mg Documented by: Banana Based Medical Food (Banatrol Plus Powder Packet) 1 packet PO TID [facility] Last Admin: 08/15/20 13:01 Dose: 1 packet Documented by: Collagenase (Santyl -) 1 applic TP DAILY [facility]; Protocol Last Admin: 08/15/20 12:08 Dose: 1 applic Documented by: Dextrose (D50w (Vial) -) 12.5 gm IVPUSH PRN PRN PRN Reason: HYPOGLYCEMIA Last Admin: 08/14/20 05:29 Dose: 12.5 gm Documented by: Diazepam (Valium -) 2 mg PO 2100 PRN PRN Reason: INSOMNIA Last Admin: 08/14/20 21:53 Dose: 2 mg Documented by: Famotidine (Pepcid) 20 mg PEG DAILY [facility] Last Admin: 08/15/20 09:12 Dose: 20 mg Documented by: Fentanyl (Sublimaze Injection -) 50 mcg IVPUSH ONCE ONE Stop: 08/15/20 13:05 Folic Acid (Folic Acid -) 1 mg NGT DAILY [facility] Last Admin: 08/15/20 09:12 Dose: 1 mg Documented by: Heparin Sodium (Porcine) (Heparin -) 5,000 unit SQ BID [facility] Last Admin: 08/15/20 09:12 Dose: 5,000 unit Documented by: Hydromorphone HCl (Dilaudid Vial -) 1 mg IVPUSH Q3H PRN PRN Reason: PAIN LEVEL 4 - 6 Last Admin: 08/15/20 10:47 Dose: 1 mg Documented by: Piperacillin Sod/Tazobactam (Sod 3.375 gm/ Dextrose) 50 mls @ 100 mls/hr IVPB Q8H-IV [facility]; Protocol Last Admin: 08/15/20 09:12 Dose: 100 mls/hr Documented by: Voriconazole 130 mg/ Sodium (Chloride) 113 mls @ 113 mls/hr IVPB BID [facility] Last Admin: 08/15/20 10:26 Dose: 113 mls/hr Documented by: Sodium Chloride (Normal Saline -) 1,000 mls @ 42 mls/hr IV ASDIR [facility] Stop: 08/16/20 08:49 Last Admin: 08/15/20 10:26 Dose: 42 mls/hr Documented by: Lactobacillus Acidophilus (Bacid -) 1 tab PEG DAILY [facility] Last Admin: 08/15/20 09:11 Dose: 1 tab Documented by: Lidocaine (Lidoderm Patch -) 1 patch TP DAILY [facility] Last Admin: 08/15/20 09:12 Dose: 1 patch Documented by: Lidocaine HCl (Xylocaine 5% Top. Ointment) 1 applic TP DAILY [facility] Last Admin: 08/15/20 12:08 Dose: 1 applic Documented by: Midazolam HCl (Versed -) 4 mg IVPUSH ONCE ONE Stop: 08/15/20 13:05 Miscellaneous (Lidoderm Patch Removal) 1 each MC DAILY@2200 [facility] Last Admin: 08/14/20 21:40 Dose: 1 each Documented by: Morphine Sulfate (Morphine Sulfate) 1 mg IVPUSH Q6H PRN PRN Reason: PAIN LEVEL 1-3 Last Admin: 08/11/20 17:18 Dose: 1 mg Documented by: Multi-Ingredient Ointment (Zinc Oxide) 1 applic TP DAILY [facility] Last Admin: 08/15/20 12:08 Dose: 1 applic Documented by: Multivitamins/Minerals (Certavite-Antioxidant Liquid) 15 ml NGT DAILY [facility] Last Admin: 08/15/20 09:11 Dose: 15 ml Documented by: Thiamine HCl (Vitamin B1 Injection -) 100 mg IVPB DAILY [facility] Last Admin: 08/15/20 09:12 Dose: 100 mg Documented by: - Objective Vital Signs: Vital Signs Temperature 97.9 F 08/15/20 10:34 Pulse Rate 103 H 08/15/20 12:00 Respiratory Rate 23 H 08/15/20 12:00 Blood Pressure 92/73 08/15/20 12:00 O2 Sat by Pulse Oximetry (%) 98 08/15/20 12:00 Constitutional: Yes: Calm, Cachectic HENT: Yes: Atraumatic Neck: Yes: Other (trach collar) Respiratory: Yes: Rhonchi, Wheezes Gastrointestinal: Yes: Normal Bowel Sounds Extremities: Yes: WNL Neurological: Yes: Alert Labs: CBC, BMP 08/15/20 06:40 08/15/20 06:40 INR, PTT INR 1.15 (0.83-1.09) H 08/15/20 06:40 Fibrinogen 344.0 mg/dL (238-498) 07/21/20 06:00 Problem List - Problems (1) At risk for electrolyte imbalance Assessment/Plan: MONITOR AND REPLACE Code(s): Z91.89 - OTH PERSONAL RISK FACTORS, NOT ELSEWHERE CLASSIFIED (2) SBO (small bowel obstruction) Assessment/Plan: PEG IN PLACE Code(s): K56.609 - UNSP INTESTNL OBST, UNSP TO PARTIAL VERSUS COMPLETE OBST (3) Sepsis Assessment/Plan: IV ABX STABLE Code(s): A41.9 - SEPSIS, UNSPECIFIED ORGANISM Qualifiers: Sepsis type: sepsis due to unspecified organism Sepsis acute organ dysfunction status: unspecified Qualified Code(s): A41.9 - Sepsis, unspecified organism (4) Alcoholic liver damage Code(s): K70.9 - ALCOHOLIC LIVER DISEASE, UNSPECIFIED (5) Hypoalbuminemia Code(s): E88.09 - OTH DISORDERS OF PLASMA-PROTEIN METABOLISM, NEC (6) Hyponatremia Code(s): E87.1 - HYPO-OSMOLALITY AND HYPONATREMIA (7) Liver cirrhosis, alcoholic Code(s): K70.30 - ALCOHOLIC CIRRHOSIS OF LIVER WITHOUT ASCITES (8) Ischemic hepatitis Code(s): K75.9 - INFLAMMATORY LIVER DISEASE, UNSPECIFIED (9) Respiratory failure Assessment/Plan: S/P TRACH ON VENT Code(s): J96.90 - RESPIRATORY FAILURE, UNSP, UNSP W HYPOXIA OR HYPERCAPNIA (10) UTI (urinary tract infection) Assessment/Plan: ON IV ABX CXS NOTED Code(s): N39.0 - URINARY TRACT INFECTION, SITE NOT SPECIFIED Qualifiers: Urinary tract infection type: site unspecified Hematuria presence: with hematuria Qualified Code(s): N39.0 - Urinary tract infection, site not specified; R31.9 - Hematuria, unspecified (11) Elevated LFTs Assessment/Plan: IMPROVING MONITOR Code(s): R79.89 - OTHER SPECIFIED ABNORMAL FINDINGS OF BLOOD CHEMISTRY (12) Hypothermia Assessment/Plan: stable PRN BEAR HUGGER Code(s): T68.XXXA - HYPOTHERMIA, INITIAL ENCOUNTER (13) Skin abrasion Code(s): T14.8XXA - OTHER INJURY OF UNSPECIFIED BODY REGION, INITIAL ENCOUNTER (14) Sacral ulcer Code(s): L98.429 - NON-PRESSURE CHRONIC ULCER OF BACK WITH UNSPECIFIED SEVERITY (15) Severe malnutrition Assessment/Plan: S/P PEG GETTING FEEDS Code(s): E43 - UNSPECIFIED SEVERE PROTEIN-CALORIE MALNUTRITION (16) Pneumothorax on left Assessment/Plan: CHEST TUBE IN PLACE Code(s): J93.9 - PNEUMOTHORAX, UNSPECIFIED (17) Hypotension Assessment/Plan: STILL ON PRESSOR SUPPORT Code(s): I95.9 - HYPOTENSION, UNSPECIFIED Assessment/Plan critical care time spent in reviewing chart, evaluating patient and formulating plan [address] cunningham today
--- NOTE | 2020-08-15 15:17 | PROC ---
Procedure Note Procedure: BRONCHOSCOPY NOTE After discussing the risks and benefits of the procedure, informed consent was obtained. Moran-x bronchoscope was passed via the tracheostomy and the airways were examined to the subsegmental level. There were no endobronchial lesions noted in either lung. There were copious secretions noted in the left mainstem, EITAN, lingula. Lingula was then wedged and lavaged. Bronchoscope then withdrawn and procedure terminated. BAL sent for cultures and fungal cultures. Alfred Gallagher MD
[2020-08-15] MEDS: LIDOCAINE PATCH REMOVAL MC SCH (22:20)
[2020-08-16] MEDS: PIPERACILLIN/TAZOB 3.375 GM 3.375 GM in DEXTROSE 5%-WATER - 50 ML IVPB SCH ×3 (01:07→17:54)
[2020-08-16] MEDS: HYDROmorphone HCl 2 MG/ML VIAL IVPUSH PRN ×3 (05:39→17:53)
[2020-08-16] MEDS: BANATROL PLUS POWDER PACKET PO SCH ×3 (05:40→21:15)
[2020-08-16 07:33] LABS: HEMATOCRIT 31.8 % (32.4-45.2); HEMOGLOBIN 10.8 GM/dL (10.7-15.3); MCH 30.6 pg (25.7-33.7); MCHC 33.9 g/dl (32.0-36.0); MEAN CELL VOLUME 90.1 fl (80-96); MEAN PLT VOLUME 7.8 fl (7.5-11.1); PLATELET COUNT 419 K/MM3 (134-434); RBC 3.53 M/mm3 (3.60-5.2); RDW 16.7 % (11.6-15.6)
[2020-08-16 07:38] LABS: INR 1.21 (0.83-1.09); PROTHROMBIN TIME (PATIENT) 14.8 SEC (9.7-13.0)
[2020-08-16 07:41] LABS: ACTIVATED PTT 31.1 SECONDS (25.2-36.5)
[2020-08-16 07:59] LABS: BILIRUBIN,TOTAL 0.4 mg/dL (0.2-1); BLOOD UREA NITROGEN 15.2 mg/dL (7-18); CREATININE 0.2 mg/dL (0.55-1.3); MAGNESIUM 1.6 mg/dL (1.8-2.4); PHOSPHOROUS 3.4 mg/dL (2.5-4.9); TOT PROT 4.1 g/dl (6.4-8.2)
[2020-08-16 08:01] LABS: CALCIUM 6.6 mg/dL (8.5-10.1)
[2020-08-16] MEDS ORDERED: ALBUMIN HUMAN 25% 12.5 GM/50 ML VIAL IVPB SCH (08:30)
[2020-08-16] MEDS ORDERED: MAGNESIUM OXIDE 400 MG TABLET (FP) PO ONE (10:00)
[2020-08-16] MEDS ORDERED: PIPERACILLIN/TAZOBACTAM 3.375 GM VIAL IVPB ONE ×2 (10:10→17:40)
[2020-08-16] MEDS ORDERED: DEXTROSE 5%-WATER - 50 ML IVPB ONE ×2 (10:11→17:40)
[2020-08-16] MEDS: FOLIC ACID 1 MG TABLET (FP) NGT SCH (10:43)
[2020-08-16] MEDS: LIDOCAINE 5% TOPICAL PATCH TP SCH (10:43)
[2020-08-16] MEDS: MULTIVIT-MINERALS ORAL LIQUID NGT SCH (10:43)
[2020-08-16] MEDS: HEPARIN NA (PORCINE) 5,000 UNITS/ML 1ML VIAL SQ SCH ×2 (10:43→21:15)
[2020-08-16] MEDS: FAMOTIDINE 40 MG/5 ML ORAL SUSPENSION PEG SCH (10:43)
[2020-08-16] MEDS: LACTOBACILLUS ACIDOPHILUS 1 TABLET PEG SCH (10:43)
[2020-08-16] MEDS: COLLAGENASE CLOSTRIDIUM HIST. 30 GRAMS TUBE TP SCH (10:44)
[2020-08-16] MEDS: AMINO ACIDS/PROTEIN HYDROLYS 30 ML LIQUID.PKT PO SCH (10:44)
[2020-08-16] MEDS: THIAMINE HCL 200 MG/2 ML VIAL IVPB SCH (10:44)
[2020-08-16] MEDS: ASCORBIC ACID 500 MG TABLET (FP) PO SCH (10:44)
[2020-08-16] MEDS: ZINC OXIDE 20% TOPICAL OINTMENT 30 GM TUBE TP SCH (10:44)
[2020-08-16] MEDS: LIDOCAINE HCL 5% TOP OINTMENT 50 GM TUBE TP SCH (10:44)
[2020-08-16] MEDS ORDERED: PT OWN MED DRAWER 7, Y5N ONE (10:46)
--- NOTE | 2020-08-16 11:13 | PN ---
Teaching Attending Note Name of Resident: Yadira Hamilton ATTENDING PHYSICIAN STATEMENT I saw and evaluated the patient. I reviewed the resident's note and discussed the case with the resident. I agree with the resident's findings and plan as documented. SUBJECTIVE: Pt seen and examined in the ICU. Vented, awake. No fevers recorded. No pn eumothorax on AM CXR. Trach downsized to 6 yesterday. OBJECTIVE: Vital Signs Period Temp Pulse Resp BP Sys/Campbell Pulse Ox Last 24 Hr 97.5 F-98.6 F 100-128 15-26 77-104/58-80 92-100 Intake & Output 08/13/20 08/14/20 08/15/20 08/16/20 23:59 23:59 23:59 23:59 Intake Total 6818 834 9262 2216 Output Total 480 1140 900 700 Balance 590 -560 206 5469 Weight 33.112 kg Gen: vented, cachectic Heart: RRR Lung: scattered rhonchi Abd: soft, nontender, +ascites Ext: no edema CBC, BMP 08/16/20 05:58 08/16/20 05:58 Active Medications Albumin Human (Albumin Human 25%) 12.5 gm IVPB Q6H [facility] Stop: 08/16/20 17:01 Amino Acids (Prosource No Carb Liquid Pkt) 30 ml PO DAILY [facility] Last Admin: 08/16/20 10:44 Dose: 30 ml Documented by: Ascorbic Acid (Vitamin C -) 500 mg PO DAILY [facility] Last Admin: 08/16/20 10:44 Dose: 500 mg Documented by: Banana Based Medical Food (Banatrol Plus Powder Packet) 1 packet PO TID [facility] Last Admin: 08/16/20 05:40 Dose: 1 packet Documented by: Collagenase (Santyl -) 1 applic TP DAILY [facility]; Protocol Last Admin: 08/16/20 10:44 Dose: 1 applic Documented by: Dextrose (D50w (Vial) -) 12.5 gm IVPUSH PRN PRN PRN Reason: HYPOGLYCEMIA Last Admin: 08/14/20 05:29 Dose: 12.5 gm Documented by: Diazepam (Valium -) 2 mg PO 2100 PRN PRN Reason: INSOMNIA Last Admin: 08/14/20 21:53 Dose: 2 mg Documented by: Famotidine (Pepcid) 20 mg PEG DAILY [facility] Last Admin: 08/16/20 10:43 Dose: 20 mg Documented by: Folic Acid (Folic Acid -) 1 mg NGT DAILY [facility] Last Admin: 08/16/20 10:43 Dose: 1 mg Documented by: Heparin Sodium (Porcine) (Heparin -) 5,000 unit SQ BID [facility] Last Admin: 08/16/20 10:43 Dose: 5,000 unit Documented by: Hydromorphone HCl (Dilaudid Vial -) 1 mg IVPUSH Q3H PRN PRN Reason: PAIN LEVEL 4 - 6 Last Admin: 08/16/20 10:15 Dose: 1 mg Documented by: Piperacillin Sod/Tazobactam (Sod 3.375 gm/ Dextrose) 50 mls @ 100 mls/hr IVPB Q8H-IV [facility]; Protocol Last Admin: 08/16/20 10:44 Dose: 100 mls/hr Documented by: Lactobacillus Acidophilus (Bacid -) 1 tab PEG DAILY [facility] Last Admin: 08/16/20 10:43 Dose: 1 tab Documented by: Lidocaine (Lidoderm Patch -) 1 patch TP DAILY [facility] Last Admin: 08/16/20 10:43 Dose: 1 patch Documented by: Lidocaine HCl (Xylocaine 5% Top. Ointment) 1 applic TP DAILY [facility] Last Admin: 08/16/20 10:44 Dose: 1 applic Documented by: Miscellaneous (Lidoderm Patch Removal) 1 each MC DAILY@2200 [facility] Last Admin: 08/15/20 22:20 Dose: 1 each Documented by: Morphine Sulfate (Morphine Sulfate) 1 mg IVPUSH Q6H PRN PRN Reason: PAIN LEVEL 1-3 Last Admin: 08/11/20 17:18 Dose: 1 mg Documented by: Multi-Ingredient Ointment (Zinc Oxide) 1 applic TP DAILY [facility] Last Admin: 08/16/20 10:44 Dose: 1 applic Documented by: Multivitamins/Minerals (Certavite-Antioxidant Liquid) 15 ml NGT DAILY [facility] Last Admin: 08/16/20 10:43 Dose: 15 ml Documented by: Thiamine HCl (Vitamin B1 Injection -) 100 mg IVPB DAILY [facility] Last Admin: 08/16/20 10:44 Dose: 100 mg Documented by: ASSESSMENT AND PLAN: Acute Hypoxic Respiratory Failure s/p Tracheostomy Pneumonia likely Aspiration UTI Sepsis Hyponatremia Small Bowel Obstruction Ascites s/p Peritoneal drain placement Alcohol/Heroin Abuse Anemia/Thrombocytopenia Failure to Thrive Severe Protein Calorie Malnutrition Refeeding Syndrome - continue antibiotics - f/u cultures - clamp chest tube, repeat CXR - can d/c chest tube if no pneumothorax on repeat CXR - PMV trial - swallow eval - pain control - monitor urine output, creatinine - monitor H/H - completed antibiotics - off pressors, maintain MAP >65 - titrate FiO2 to keep SpO2 >90% - spontaneous breathing trials as tolerated - enteral feeds - DVT/GI prophylaxis - continue ICU monitoring - for LTACH placement
--- NOTE | 2020-08-16 12:03 | PN ---
Physical Exam: SUBJECTIVE: Patient seen and examined bedside. Reports feeling better. Is excited about speech therapy today with new smaller trach. No events overnight. OBJECTIVE: Vital Signs Temp Pulse Resp BP Pulse Ox 98.7 F 139 H 24 H 113/86 99 08/16/20 10:00 08/16/20 10:00 08/16/20 10:00 08/16/20 10:00 08/16/20 10:00 GENERAL: The patient is awake, alert, and fully oriented. overall appears much better today HEAD: temporal wasting improving EYES: PERRL, EOMI ENT: moist mucous membranes. NECK: New trach in place LUNGS: Breath sounds improved on L today. Chest tube clamped this AM HEART: Regular rhythm, tachy ABDOMEN: Peg in place, peritoneal drain on R side, Chest tube in place of L side EXTREMITIES: warm, well-perfused, mild edema BL NEUROLOGICAL: Cranial nerves II through XII grossly intact. PSYCH: Normal mood, normal affect. SKIN: sacral ulcer stage 4 Intake & Output 08/16/20 07:59 Intake Total 2216 Output Total 700 Balance 1516 Weight 33.112 kg Intake: IV 1456 Normal Saline - 1,000 ml 504 @ 42 mls/hr IV ASDIR [facility] Rx#:[id number] saline lock 1 952 IVPB 100 Tube Feeding 540 Tube Irrigant (Tube 120 Feeding Water) Output: Chest Tube Drainage 0 Left Lateral Chest 0 Drainage 100 Right Abdomen 100 Urine 300 Uribe 300 Fecal Drainage 300 Other: Voiding Method Indwelling Catheter Bowel Movement No Weight Measurement Method Built in [facility] Intake & Output 08/13/20 08/14/20 08/15/20 08/16/20 23:59 23:59 23:59 23:59 Intake Total 1240 357 2875 2216 Output Total 480 1140 900 700 Balance 590 -217 758 9788 Weight 33.112 kg Laboratory Results - last 24 hr 08/15/20 08/15/20 08/16/20 12:58 17:30 01:13 WBC RBC Hgb Hct MCV MCH MCHC RDW Plt Count MPV PT with INR INR PTT (Actin FS) Sodium Potassium Chloride Carbon Dioxide Anion Gap BUN Creatinine Est GFR (CKD-EPI)AfAm Est GFR (CKD-EPI)NonAf POC Glucometer 92 83 113 Random Glucose Calcium Phosphorus Magnesium Total Bilirubin AST ALT Alkaline Phosphatase Total Protein Albumin 08/16/20 08/16/20 08/16/20 05:58 05:58 05:58 WBC 14.0 H RBC 3.53 L Hgb 10.8 Hct 31.8 L MCV 90.1 MCH 30.6 MCHC 33.9 RDW 16.7 H Plt Count 419 MPV 7.8 PT with INR 14.80 H INR 1.21 H PTT (Actin FS) 31.1 Sodium 138 Potassium 4.0 Chloride 106 Carbon Dioxide 25 Anion Gap 8 BUN 15.2 Creatinine 0.2 L Est GFR (CKD-EPI)AfAm 196.46 Est GFR (CKD-EPI)NonAf 169.51 POC Glucometer Random Glucose 103 Calcium 6.6 L* Phosphorus 3.4 Magnesium 1.6 L Total Bilirubin 0.4 AST 67 H ALT 55 Alkaline Phosphatase 634 H Total Protein 4.1 L Albumin 1.0 L 08/16/20 06:33 WBC RBC Hgb Hct MCV MCH MCHC RDW Plt Count MPV PT with INR INR PTT (Actin FS) Sodium Potassium Chloride Carbon Dioxide Anion Gap BUN Creatinine Est GFR (CKD-EPI)AfAm Est GFR (CKD-EPI)NonAf POC Glucometer 130 Random Glucose Calcium Phosphorus Magnesium Total Bilirubin AST ALT Alkaline Phosphatase Total Protein Albumin Active Medications Generic Name Dose Route Start Last Admin Trade Name Freq PRN Reason Stop Dose Admin Albumin Human 12.5 gm 08/16/20 12:00 Albumin Human 25% IVPB 08/16/20 18:01 Q6H [facility] Amino Acids 30 ml 08/08/20 12:45 08/16/20 10:44 Prosource No Carb Liquid Pkt PO 30 ml DAILY [facility] Administration Ascorbic Acid 500 mg 07/27/20 13:00 08/16/20 10:44 Vitamin C - PO 500 mg DAILY [facility] Administration Banana Based Medical Food 1 packet 08/13/20 14:00 08/16/20 05:40 Banatrol Plus Powder Packet PO 1 packet TID [facility] Administration Collagenase 1 applic 08/05/20 19:30 08/16/20 10:44 Santyl - TP 1 applic DAILY [facility] Administration Protocol Dextrose 12.5 gm 07/08/20 07:08 08/14/20 05:29 D50w (Vial) - IVPUSH 12.5 gm PRN PRN Administration HYPOGLYCEMIA Diazepam 2 mg 08/10/20 10:41 08/14/20 21:53 Valium - PO 2 mg 2100 PRN Administration INSOMNIA Famotidine 20 mg 08/04/20 10:45 08/16/20 10:43 Pepcid PEG 20 mg DAILY [facility] Administration Folic Acid 1 mg 07/06/20 10:00 08/16/20 10:43 Folic Acid - NGT 1 mg DAILY [facility] Administration Heparin Sodium (Porcine) 5,000 unit 07/20/20 10:00 08/16/20 10:43 Heparin - SQ 5,000 unit BID [facility] Administration Hydromorphone HCl 1 mg 07/26/20 13:39 08/16/20 10:15 Dilaudid Vial - IVPUSH 1 mg Q3H PRN Administration PAIN LEVEL 4 - 6 Piperacillin Sod/Tazobactam 50 mls @ 100 mls/hr 08/13/20 11:45 08/16/20 10:44 Sod 3.375 gm/ Dextrose IVPB 100 mls/hr Q8H-IV [facility] Administration Protocol Lactobacillus Acidophilus 1 tab 08/08/20 12:45 08/16/20 10:43 Bacid - PEG 1 tab DAILY [facility] Administration Lidocaine 1 patch 08/09/20 11:30 08/16/20 10:43 Lidoderm Patch - TP 1 patch DAILY [facility] Administration Lidocaine HCl 1 applic 07/25/20 21:50 08/16/20 10:44 Xylocaine 5% Top. Ointment TP 1 applic DAILY [facility] Administration Miscellaneous 1 each 08/09/20 23:00 08/15/20 22:20 Lidoderm Patch Removal MC 1 each DAILY@2200 [facility] Administration Morphine Sulfate 1 mg 08/08/20 10:43 08/11/20 17:18 Morphine Sulfate IVPUSH 1 mg Q6H PRN Administration PAIN LEVEL 1-3 Multi-Ingredient Ointment 1 applic 07/19/20 13:30 08/16/20 10:44 Zinc Oxide TP 1 applic DAILY [facility] Administration Multivitamins/Minerals 15 ml 07/06/20 11:45 08/16/20 10:43 Certavite-Antioxidant Liquid NGT 15 ml DAILY [facility] Administration Thiamine HCl 100 mg 07/11/20 12:45 08/16/20 10:44 Vitamin B1 Injection - IVPB 100 mg DAILY [facility] Administration ASSESSMENT/PLAN: 35F with PMH of malnutrition 2/2 bulimia and polysubstance use disorder, cirrhosis, & heroin abuse, in ICU with sepsis and acute hypoxic respiratory failure, now s/p trach, abdominal peritoneal drain, PEG placement, and L chest tube. Trach replaced with smaller size 08/15. HEEL GOUGER - AOx3, communicates with pen/paper - Pain control on Dilaudid Q3H, Morphine 1mg PRN - Diazepam for insomnia CVS - MAP stable, no pressor support - tachy most likely due to sepsis, monitor Resp - Tracheostomy 07/25 - pneumothorax resolved, chest tube placed on day 2 water seal - Chest CT showed cavitary lesions - repeat CXR today showed improved atelectasis - bronchoscopy with lavage 08/15 with sputum cultures collected - Trach replaced with size 6 (08/15) - Clamped chest tube, repeat CXR this afternoon - passy surjit valve ordered GI - speech and swall re eval - peg feeds - Transaminitis stable - no PPI - diarrhea resolving ID - S/p Tigecycline (08/07) - CT chest showed cavitations, sputum cultures lactose fermenting neg bacilli - ID consulted (Dr. Martines) - Sepsis improving - zosyn q8h day 4 - Voriconazole stopped - LFT stabalized, continue to monitor Renal - sodium stable - albumin 1, replete today Heme - continue to monitor Hbg - transfuse if hbg < 7 Derm - Multiple Sacral Ulcers (stage 4) - Daily wound care, air mattress, w/ frequent turns - Off-loading to all bony areas (heels, ankles, hips and tailbone) with Allevyn/Optifoam FEN - Jevity w/ Prosource to reduce volume and increase calories - feeds almost at goal - monitor and replete lytes PRN - sodium improved, continue to monitor DVT PPx - Heparin BID Visit type - Emergency Visit Emergency Visit: Yes ED Registration Date: 07/01/20 Care time: The patient presented to the Emergency Department on the above date and was hospitalized for further evaluation of their emergent condition. - New Patient This patient is new to me today: No - Critical Care Critical Care patient: Yes Total Critical Care Time (in minutes): 36 Critical Care Statement: The care of this patient involved high complexity decision making to prevent further life threatening deterioration of the patient's condition and/or to evaluate & treat vital organ system(s) failure or risk of failure. - Discharge Referral Referred to [facility] Med P.C.: No ATTENDING PHYSICIAN STATEMENT I saw and evaluated the patient. I reviewed the resident's note and discussed the case with the resident. I agree with the resident's findings and plan as documented. SUBJECTIVE: OBJECTIVE: ASSESSMENT AND PLAN:
--- NOTE | 2020-08-16 12:15 | PN ---
Progress Note, Physician - Current Medication List Current Medications: Active Medications Albumin Human (Albumin Human 25%) 12.5 gm IVPB Q6H [facility] Stop: 08/16/20 18:01 Amino Acids (Prosource No Carb Liquid Pkt) 30 ml PO DAILY [facility] Last Admin: 08/16/20 10:44 Dose: 30 ml Documented by: Ascorbic Acid (Vitamin C -) 500 mg PO DAILY [facility] Last Admin: 08/16/20 10:44 Dose: 500 mg Documented by: Banana Based Medical Food (Banatrol Plus Powder Packet) 1 packet PO TID [facility] Last Admin: 08/16/20 05:40 Dose: 1 packet Documented by: Collagenase (Santyl -) 1 applic TP DAILY [facility]; Protocol Last Admin: 08/16/20 10:44 Dose: 1 applic Documented by: Dextrose (D50w (Vial) -) 12.5 gm IVPUSH PRN PRN PRN Reason: HYPOGLYCEMIA Last Admin: 08/14/20 05:29 Dose: 12.5 gm Documented by: Diazepam (Valium -) 2 mg PO 2100 PRN PRN Reason: INSOMNIA Last Admin: 08/14/20 21:53 Dose: 2 mg Documented by: Famotidine (Pepcid) 20 mg PEG DAILY [facility] Last Admin: 08/16/20 10:43 Dose: 20 mg Documented by: Folic Acid (Folic Acid -) 1 mg NGT DAILY [facility] Last Admin: 08/16/20 10:43 Dose: 1 mg Documented by: Heparin Sodium (Porcine) (Heparin -) 5,000 unit SQ BID [facility] Last Admin: 08/16/20 10:43 Dose: 5,000 unit Documented by: Hydromorphone HCl (Dilaudid Vial -) 1 mg IVPUSH Q3H PRN PRN Reason: PAIN LEVEL 4 - 6 Last Admin: 08/16/20 10:15 Dose: 1 mg Documented by: Piperacillin Sod/Tazobactam (Sod 3.375 gm/ Dextrose) 50 mls @ 100 mls/hr IVPB Q8H-IV [facility]; Protocol Last Admin: 08/16/20 10:44 Dose: 100 mls/hr Documented by: Lactobacillus Acidophilus (Bacid -) 1 tab PEG DAILY [facility] Last Admin: 08/16/20 10:43 Dose: 1 tab Documented by: Lidocaine (Lidoderm Patch -) 1 patch TP DAILY [facility] Last Admin: 08/16/20 10:43 Dose: 1 patch Documented by: Lidocaine HCl (Xylocaine 5% Top. Ointment) 1 applic TP DAILY [facility] Last Admin: 08/16/20 10:44 Dose: 1 applic Documented by: Miscellaneous (Lidoderm Patch Removal) 1 each MC DAILY@2200 [facility] Last Admin: 08/15/20 22:20 Dose: 1 each Documented by: Morphine Sulfate (Morphine Sulfate) 1 mg IVPUSH Q6H PRN PRN Reason: PAIN LEVEL 1-3 Last Admin: 08/11/20 17:18 Dose: 1 mg Documented by: Multi-Ingredient Ointment (Zinc Oxide) 1 applic TP DAILY [facility] Last Admin: 08/16/20 10:44 Dose: 1 applic Documented by: Multivitamins/Minerals (Certavite-Antioxidant Liquid) 15 ml NGT DAILY [facility] Last Admin: 08/16/20 10:43 Dose: 15 ml Documented by: Thiamine HCl (Vitamin B1 Injection -) 100 mg IVPB DAILY [facility] Last Admin: 08/16/20 10:44 Dose: 100 mg Documented by: - Objective Vital Signs: Vital Signs Temperature 98.7 F 08/16/20 10:00 Pulse Rate 139 H 08/16/20 10:00 Respiratory Rate 24 H 08/16/20 10:00 Blood Pressure 113/86 08/16/20 10:00 O2 Sat by Pulse Oximetry (%) 99 08/16/20 10:00 Labs: CBC, BMP 08/16/20 05:58 08/16/20 05:58 INR, PTT INR 1.21 (0.83-1.09) H 08/16/20 05:58 Fibrinogen 344.0 mg/dL (238-498) 07/21/20 06:00
[2020-08-16] MEDS: ALBUMIN HUMAN 25% 12.5 GM/50 ML VIAL IVPB SCH ×2 (12:46→17:52)
--- NOTE | 2020-08-16 15:01 | CONSULT ---
[place] Valve Eval - Assessment Prior to PMV Placement Patient and/or family educated re PMV: Yes Mental Status: Awake, Alert, Attempting to Communicate Respiratory Rate: 26 O2 Sat by Pulse Oximetry (%): 100 Secretions: Moderate Amount Patient on Ventilator: Yes Patient on Trach Collar: No Suctioned: Yes Trach Size: 6.0 Inner Cannula Removed: No Cuff Status: Inflated Passy-[place] Valve in Place - Speech Characteristics Able to Phonate with PMV in place: No Voice Loudness: Severely Soft/Quiet Voice Phonatory-based Quality: Breathy, Weak, Dysphonia Speech Pattern: Impaired Speech Clarity: < 25% Nasal Resonance: Normal Articulation: Precise Rate of Speech: Intact Voice, Other Observations: Inadequate Breath Support - Assessment with PMV in Place Respiratory Rate: 46 O2 Sat by Pulse Oximetry (%): 100 Change in Mental Status with PMV in Place: No Able to Manage Secretions: Yes Pt's subjective response to PMV: Yes: Other (wanted to use it.) Length of time with PMV in place: 15 min Additional comments: Voice is Aphonic, slightly audible but quite breathy,suspect due to vocal cord dysfunction as well as poor respiratory support with very weak respiratory function. Suspect impaired subglottic pressure, with air free flowing through vocal cords. RR was in the 40's with PMV on, although o2 saturation was maintained at 100%. When cued to take deep breaths, RR was in 30's however this could not be maintained for more than a minute. Pt was able to tolerate her secretions while PMV was on and she was disappointed that it needed to be removed. She wanted to speak with it on, although functionally, speech was breathy and low volume. - Recommendations Recommendations: PMV as tolerated (short periods, with supervision to exercise vocal cords and respiratory muscles.), Remove PMV while sleeping, Monitor Pulse Ox PMV on, Supervision while PMV on, Other (Trial with family. Needs nursing/RT supervion/monitor RR, o2 sat, ability to tolerate secretions. Needs deep suctioning and good pharyngeal suctioning before PMV placed.)
--- NOTE | 2020-08-16 17:08 | PN ---
Progress Note, Physician History of Present Illness: Pt seen and examined. No great change in status. - Current Medication List Current Medications: Active Medications Albumin Human (Albumin Human 25%) 12.5 gm IVPB Q6H [facility] Stop: 08/16/20 18:01 Last Admin: 08/16/20 12:46 Dose: 12.5 gm Documented by: Amino Acids (Prosource No Carb Liquid Pkt) 30 ml PO DAILY RAUL Last Admin: 08/16/20 10:44 Dose: 30 ml Documented by: Ascorbic Acid (Vitamin C -) 500 mg PO DAILY RAUL Last Admin: 08/16/20 10:44 Dose: 500 mg Documented by: Banana Based Medical Food (Banatrol Plus Powder Packet) 1 packet PO TID RAUL Last Admin: 08/16/20 05:40 Dose: 1 packet Documented by: Collagenase (Santyl -) 1 applic TP DAILY RAUL; Protocol Last Admin: 08/16/20 10:44 Dose: 1 applic Documented by: Dextrose (D50w (Vial) -) 12.5 gm IVPUSH PRN PRN PRN Reason: HYPOGLYCEMIA Last Admin: 08/14/20 05:29 Dose: 12.5 gm Documented by: Diazepam (Valium -) 2 mg PO 2100 PRN PRN Reason: INSOMNIA Last Admin: 08/14/20 21:53 Dose: 2 mg Documented by: Famotidine (Pepcid) 20 mg PEG DAILY [facility] Last Admin: 08/16/20 10:43 Dose: 20 mg Documented by: Folic Acid (Folic Acid -) 1 mg NGT DAILY [facility] Last Admin: 08/16/20 10:43 Dose: 1 mg Documented by: Heparin Sodium (Porcine) (Heparin -) 5,000 unit SQ BID RAUL Last Admin: 08/16/20 10:43 Dose: 5,000 unit Documented by: Hydromorphone HCl (Dilaudid Vial -) 1 mg IVPUSH Q3H PRN PRN Reason: PAIN LEVEL 4 - 6 Last Admin: 08/16/20 10:15 Dose: 1 mg Documented by: Piperacillin Sod/Tazobactam (Sod 3.375 gm/ Dextrose) 50 mls @ 100 mls/hr IVPB Q8H-IV RAUL; Protocol Last Admin: 08/16/20 10:44 Dose: 100 mls/hr Documented by: Lactobacillus Acidophilus (Bacid -) 1 tab PEG DAILY [facility] Last Admin: 08/16/20 10:43 Dose: 1 tab Documented by: Lidocaine (Lidoderm Patch -) 1 patch TP DAILY [facility] Last Admin: 08/16/20 10:43 Dose: 1 patch Documented by: Lidocaine HCl (Xylocaine 5% Top. Ointment) 1 applic TP DAILY [facility] Last Admin: 08/16/20 10:44 Dose: 1 applic Documented by: Miscellaneous (Lidoderm Patch Removal) 1 each MC DAILY@2200 [facility] Last Admin: 08/15/20 22:20 Dose: 1 each Documented by: Morphine Sulfate (Morphine Sulfate) 1 mg IVPUSH Q6H PRN PRN Reason: PAIN LEVEL 1-3 Last Admin: 08/11/20 17:18 Dose: 1 mg Documented by: Multi-Ingredient Ointment (Zinc Oxide) 1 applic TP DAILY [facility] Last Admin: 08/16/20 10:44 Dose: 1 applic Documented by: Multivitamins/Minerals (Certavite-Antioxidant Liquid) 15 ml NGT DAILY [facility] Last Admin: 08/16/20 10:43 Dose: 15 ml Documented by: Thiamine HCl (Vitamin B1 Injection -) 100 mg IVPB DAILY [facility] Last Admin: 08/16/20 10:44 Dose: 100 mg Documented by: - Objective Vital Signs: Vital Signs Temperature 98.7 F 08/16/20 10:00 Pulse Rate 130 H 08/16/20 16:00 Respiratory Rate 24 H 08/16/20 16:00 Blood Pressure 107/80 08/16/20 16:00 O2 Sat by Pulse Oximetry (%) 100 08/16/20 16:00 Constitutional: Yes: Calm Eyes: Yes: Conjunctiva Clear HENT: Yes: Atraumatic Cardiovascular: Yes: S1, S2 Respiratory: Yes: Mechanically Ventilated Genitourinary: Yes: Uribe Present Edema: Yes Edema: LLE: Trace, RLE: Trace Neurological: Yes: Oriented Labs: CBC, BMP 08/16/20 05:58 08/16/20 05:58 INR, PTT INR 1.21 (0.83-1.09) H 08/16/20 05:58 Fibrinogen 344.0 mg/dL (238-498) 07/21/20 06:00 Problem List - Problems (1) Hypoglycemia Code(s): E16.2 - HYPOGLYCEMIA, UNSPECIFIED (2) Sepsis Code(s): A41.9 - SEPSIS, UNSPECIFIED ORGANISM Qualifiers: Sepsis type: sepsis due to unspecified organism Sepsis acute organ dysfunc tion status: unspecified Qualified Code(s): A41.9 - Sepsis, unspecified organism (3) Hypoalbuminemia Code(s): E88.09 - OTH DISORDERS OF PLASMA-PROTEIN METABOLISM, NEC (4) Hyponatremia Code(s): E87.1 - HYPO-OSMOLALITY AND HYPONATREMIA Assessment/Plan Current Medications Generic Name Dose Route Start Last Admin Trade Name Freq PRN Reason Stop Dose Admin Albumin Human 12.5 gm 08/16/20 12:00 08/16/20 12:46 Albumin Human 25% IVPB 08/16/20 18:01 12.5 gm Q6H RAUL Administration Amino Acids 30 ml 08/08/20 12:45 08/16/20 10:44 Prosource No Carb Liquid Pkt PO 30 ml DAILY RAUL Administration Ascorbic Acid 500 mg 07/27/20 13:00 08/16/20 10:44 Vitamin C - PO 500 mg DAILY RAUL Administration Banana Based Medical Food 1 packet 08/13/20 14:00 08/16/20 05:40 Banatrol Plus Powder Packet PO 1 packet TID RAUL Administration Collagenase 1 applic 08/05/20 19:30 08/16/20 10:44 Santyl - TP 1 applic DAILY RAUL Administration Protocol Dextrose 12.5 gm 07/08/20 07:08 08/14/20 05:29 D50w (Vial) - IVPUSH 12.5 gm PRN PRN Administration HYPOGLYCEMIA Diazepam 2 mg 08/10/20 10:41 08/14/20 21:53 Valium - PO 2 mg 2100 PRN Administration INSOMNIA Famotidine 20 mg 08/04/20 10:45 08/16/20 10:43 Pepcid PEG 20 mg DAILY RAUL Administration Folic Acid 1 mg 07/06/20 10:00 08/16/20 10:43 Folic Acid - NGT 1 mg DAILY RAUL Administration Heparin Sodium (Porcine) 5,000 unit 07/20/20 10:00 08/16/20 10:43 Heparin - SQ 5,000 unit BID RAUL Administration Hydromorphone HCl 1 mg 07/26/20 13:39 08/16/20 10:15 Dilaudid Vial - IVPUSH 1 mg Q3H PRN Administration PAIN LEVEL 4 - 6 Piperacillin Sod/Tazobactam 50 mls @ 100 mls/hr 08/13/20 11:45 08/16/20 10:44 Sod 3.375 gm/ Dextrose IVPB 100 mls/hr Q8H-IV RAUL Administration Protocol Lactobacillus Acidophilus 1 tab 08/08/20 12:45 08/16/20 10:43 Bacid - PEG 1 tab DAILY RAUL Administration Lidocaine 1 patch 08/09/20 11:30 08/16/20 10:43 Lidoderm Patch - TP 1 patch DAILY RAUL Administration Lidocaine HCl 1 applic 07/25/20 21:50 08/16/20 10:44 Xylocaine 5% Top. Ointment TP 1 applic DAILY RAUL Administration Miscellaneous 1 each 08/09/20 23:00 08/15/20 22:20 Lidoderm Patch Removal MC 1 each DAILY@2200 RAUL Administration Morphine Sulfate 1 mg 08/08/20 10:43 08/11/20 17:18 Morphine Sulfate IVPUSH 1 mg Q6H PRN Administration PAIN LEVEL 1-3 Multi-Ingredient Ointment 1 applic 07/19/20 13:30 08/16/20 10:44 Zinc Oxide TP 1 applic DAILY RAUL Administration Multivitamins/Minerals 15 ml 07/06/20 11:45 08/16/20 10:43 Certavite-Antioxidant Liquid NGT 15 ml DAILY RAUL Administration Thiamine HCl 100 mg 07/11/20 12:45 08/16/20 10:44 Vitamin B1 Injection - IVPB 100 mg DAILY RAUL Administration Impression 1. azotemia 2. hyponatremia 3. hyperkalemia 4. hypotension 5. sepsis 6. sbo 7. uti 8. liver cirrhosis 9. hypoalbuminemia 10. etoh abuse 11. substance abuse 12. psoriasis 13. acute resp failure 14. malnutrition 15. 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 ascites Plan - cont to monitor lytes - cont feeds - albumin remains low - vent support - chest tube care - dietary follow up
[2020-08-16] MEDS: diazePAM 2 MG TABLET PO PRN (21:16)
--- NOTE | 2020-08-16 22:20 | PN ---
Progress Note, Physician History of Present Illness: Pt comfortable - Current Medication List Current Medications: Active Medications Amino Acids (Prosource No Carb Liquid Pkt) 30 ml PO DAILY [facility] Last Admin: 08/16/20 10:44 Dose: 30 ml Documented by: Ascorbic Acid (Vitamin C -) 500 mg PO DAILY [facility] Last Admin: 08/16/20 10:44 Dose: 500 mg Documented by: Banana Based Medical Food (Banatrol Plus Powder Packet) 1 packet PO TID RAUL Last Admin: 08/16/20 21:15 Dose: 1 packet Documented by: Collagenase (Santyl -) 1 applic TP DAILY RAUL; Protocol Last Admin: 08/16/20 10:44 Dose: 1 applic Documented by: Dextrose (D50w (Vial) -) 12.5 gm IVPUSH PRN PRN PRN Reason: HYPOGLYCEMIA Last Admin: 08/14/20 05:29 Dose: 12.5 gm Documented by: Diazepam (Valium -) 2 mg PO 2100 PRN PRN Reason: INSOMNIA Last Admin: 08/16/20 21:16 Dose: 2 mg Documented by: Famotidine (Pepcid) 20 mg PEG DAILY [facility] Last Admin: 08/16/20 10:43 Dose: 20 mg Documented by: Folic Acid (Folic Acid -) 1 mg NGT DAILY [facility] Last Admin: 08/16/20 10:43 Dose: 1 mg Documented by: Heparin Sodium (Porcine) (Heparin -) 5,000 unit SQ BID [facility] Last Admin: 08/16/20 21:15 Dose: 5,000 unit Documented by: Hydromorphone HCl (Dilaudid Vial -) 1 mg IVPUSH Q3H PRN PRN Reason: PAIN LEVEL 4 - 6 Last Admin: 08/16/20 17:53 Dose: 1 mg Documented by: Piperacillin Sod/Tazobactam (Sod 3.375 gm/ Dextrose) 50 mls @ 100 mls/hr IVPB Q8H-IV [facility]UL; Protocol Last Admin: 08/16/20 17:54 Dose: 100 mls/hr Documented by: Lactobacillus Acidophilus (Bacid -) 1 tab PEG DAILY [facility] Last Admin: 08/16/20 10:43 Dose: 1 tab Documented by: Lidocaine (Lidoderm Patch -) 1 patch TP DAILY [facility] Last Admin: 08/16/20 10:43 Dose: 1 patch Documented by: Lidocaine HCl (Xylocaine 5% Top. Ointment) 1 applic TP DAILY [facility] Last Admin: 08/16/20 10:44 Dose: 1 applic Documented by: Miscellaneous (Lidoderm Patch Removal) 1 each MC DAILY@2200 [facility] Last Admin: 08/15/20 22:20 Dose: 1 each Documented by: Morphine Sulfate (Morphine Sulfate) 1 mg IVPUSH Q6H PRN PRN Reason: PAIN LEVEL 1-3 Last Admin: 08/11/20 17:18 Dose: 1 mg Documented by: Multi-Ingredient Ointment (Zinc Oxide) 1 applic TP DAILY [facility] Last Admin: 08/16/20 10:44 Dose: 1 applic Documented by: Multivitamins/Minerals (Certavite-Antioxidant Liquid) 15 ml NGT DAILY [facility] Last Admin: 08/16/20 10:43 Dose: 15 ml Documented by: Thiamine HCl (Vitamin B1 Injection -) 100 mg IVPB DAILY [facility] Last Admin: 08/16/20 10:44 Dose: 100 mg Documented by: - Objective Vital Signs: Vital Signs Temperature 96.8 F L 08/16/20 20:00 Pulse Rate 93 H 08/16/20 20:00 Respiratory Rate 20 08/16/20 20:00 Blood Pressure 91/70 08/16/20 20:00 O2 Sat by Pulse Oximetry (%) 97 08/16/20 20:00 Constitutional: Yes: Cachectic Cardiovascular: Yes: Tachycardia Respiratory: Yes: Diminished Gastrointestinal: Yes: WNL, Normal Bowel Sounds, Soft, Other ((+) PEG) Labs: CBC, BMP 08/16/20 05:58 08/16/20 05:58 INR, PTT INR 1.21 (0.83-1.09) H 08/16/20 05:58 Fibrinogen 344.0 mg/dL (238-498) 07/21/20 06:00 Problem List - Problems (1) Respiratory failure Assessment/Plan: Acute on chronic respiratory failure Multifactorial RLL infiltrates ?Asp pneumonia S/P tracheostomy Ct scan chest showed cavitary lesions S/P Pneumothorax EITAN S/P Chest tube clamped Repeat CXR shows Lt apical air collection Cont IV zosyn Code(s): J96.90 - RESPIRATORY FAILURE, UNSP, UNSP W HYPOXIA OR HYPERCAPNIA (2) Sepsis Assessment/Plan: Cont IV zosyn Follow WBC Lactic acidosis Cont IVF Code(s): A41.9 - SEPSIS, UNSPECIFIED ORGANISM Qualifiers: Sepsis type: sepsis due to unspecified organism Sepsis acute organ dysfunction status: unspecified Qualified Code(s): A41.9 - Sepsis, unspecified organism (3) Anemia Assessment/Plan: Monitor H/H S/p transfusion PRBC's H/H improved Code(s): D64.9 - ANEMIA, UNSPECIFIED (4) At risk for electrolyte imbalance Assessment/Plan: Electrolytes improved Cont to monitor Code(s): Z91.89 - OTH PERSONAL RISK FACTORS, NOT ELSEWHERE CLASSIFIED (5) Liver cirrhosis, alcoholic Assessment/Plan: Cont to monitor Poor prognosis Code(s): K70.30 - ALCOHOLIC CIRRHOSIS OF LIVER WITHOUT ASCITES (6) Hypoalbuminemia Code(s): E88.09 - OTH DISORDERS OF PLASMA-PROTEIN METABOLISM, NEC (7) Substance abuse Assessment/Plan: Psych consult ?Competency Code(s): F19.10 - OTHER PSYCHOACTIVE SUBSTANCE ABUSE, UNCOMPLICATED (8) Cachexia Assessment/Plan: Due to severe protein malnutrition Code(s): R64 - CACHEXIA (9) Severe malnutrition Code(s): E43 - UNSPECIFIED SEVERE PROTEIN-CALORIE MALNUTRITION (10) Sacral ulcer Assessment/Plan: Surgical consult noted Cont wound care No surgical intervention at this time Code(s): L98.429 - NON-PRESSURE CHRONIC ULCER OF BACK WITH UNSPECIFIED SEVERITY (11) SBO (small bowel obstruction) Assessment/Plan: Surgical consult noted Cont NPO Cont IVF Monitor serial abdominal xrays Monitor hypoglycemia CT scan abd showed probable anasacra/ascites Pt now on enteral feeds Code(s): K56.609 - UNSP INTESTNL OBST, UNSP TO PARTIAL VERSUS COMPLETE OBST
[2020-08-17] MEDS: HYDROmorphone HCl 2 MG/ML VIAL IVPUSH PRN ×4 (00:02→21:18)
[2020-08-17] MEDS ORDERED: DEXTROSE 5%-WATER - 50 ML IVPB ONE ×3 (01:16→17:23)
[2020-08-17] MEDS ORDERED: PIPERACILLIN/TAZOBACTAM 3.375 GM VIAL IVPB ONE ×3 (01:16→17:23)
[2020-08-17] MEDS: PIPERACILLIN/TAZOB 3.375 GM 3.375 GM in DEXTROSE 5%-WATER - 50 ML IVPB SCH ×3 (02:13→18:22)
[2020-08-17] MEDS: BANATROL PLUS POWDER PACKET PO SCH ×3 (05:41→21:19)
[2020-08-17] MEDS: MORPHINE SULFATE 2 MG/ML VIAL IVPUSH PRN (05:41)
[2020-08-17] MEDS: LIDOCAINE PATCH REMOVAL MC SCH ×2 (07:41→22:25)
[2020-08-17 07:45] LABS: HEMATOCRIT 32.2 % (32.4-45.2); MCH 30.7 pg (25.7-33.7); MCHC 34.1 g/dl (32.0-36.0); MEAN CELL VOLUME 90.1 fl (80-96); MEAN PLT VOLUME 7.7 fl (7.5-11.1); PLATELET COUNT 389 K/MM3 (134-434); RBC 3.57 M/mm3 (3.60-5.2); RDW 16.4 % (11.6-15.6); WHITE BLOOD COUNT 11.8 K/mm3 (4.0-10.0)
[2020-08-17] MEDS ORDERED: ACETYLCYSTEINE 20% 200MG/ML 4 ML VIAL *FOR ORAL / INH USE ONLY NEB ONE (07:59)
[2020-08-17] MEDS ORDERED: ACETYLCYSTEINE 20% 200MG/ML 30 ML VIAL *FOR ORAL / INH USE ONLY NEB ONE (07:59)
[2020-08-17 08:07] LABS: POTASSIUM 3.9 mmol/L (3.5-5.1)
[2020-08-17 08:17] LABS: ALBUMIN 1.4 g/dl (3.4-5.0); BILIRUBIN,TOTAL 1.2 mg/dL (0.2-1); BLOOD UREA NITROGEN 14.3 mg/dL (7-18); CALCIUM 7.1 mg/dL (8.5-10.1); CREATININE 0.2 mg/dL (0.55-1.3); MAGNESIUM 1.7 mg/dL (1.8-2.4); PHOSPHOROUS 2.9 mg/dL (2.5-4.9); TOT PROT 4.3 g/dl (6.4-8.2)
[2020-08-17] MEDS ORDERED: ALBUTEROL SO4 0.5 % INH SOLN 2.5 MG/0.5 ML VIAL.NEB. NEB ONE (08:25)
[2020-08-17] MEDS ORDERED: SODIUM CHLORIDE 1,000 ML IV SCH (08:30)
[2020-08-17] MEDS: FAMOTIDINE 40 MG/5 ML ORAL SUSPENSION PEG SCH (10:00)
[2020-08-17] MEDS: LACTOBACILLUS ACIDOPHILUS 1 TABLET PEG SCH (10:14)
[2020-08-17] MEDS: COLLAGENASE CLOSTRIDIUM HIST. 30 GRAMS TUBE TP SCH (10:15)
[2020-08-17] MEDS: THIAMINE HCL 200 MG/2 ML VIAL IVPB SCH (10:15)
[2020-08-17] MEDS: AMINO ACIDS/PROTEIN HYDROLYS 30 ML LIQUID.PKT PO SCH (10:15)
[2020-08-17] MEDS: LIDOCAINE 5% TOPICAL PATCH TP SCH (10:15)
[2020-08-17] MEDS: ASCORBIC ACID 500 MG TABLET (FP) PO SCH (10:15)
[2020-08-17] MEDS: HEPARIN NA (PORCINE) 5,000 UNITS/ML 1ML VIAL SQ SCH ×2 (10:15→21:18)
[2020-08-17] MEDS: ZINC OXIDE 20% TOPICAL OINTMENT 30 GM TUBE TP SCH (10:16)
[2020-08-17] MEDS: LIDOCAINE HCL 5% TOP OINTMENT 50 GM TUBE TP SCH (10:16)
[2020-08-17] MEDS: FOLIC ACID 1 MG TABLET (FP) NGT SCH (10:16)
[2020-08-17] MEDS: MULTIVIT-MINERALS ORAL LIQUID NGT SCH (10:52)
[2020-08-17] MEDS ORDERED: METHADONE HCL 10 MG TABLET PO SCH (11:06)
--- NOTE | 2020-08-17 11:38 | PN ---
Physical Exam: SUBJECTIVE: Patient seen and examined bedside. Complaining of increased pain today not controlled by current regimen. Also having increased secretions. OBJECTIVE: Vital Signs Temperature 98.5 F 08/17/20 10:00 Pulse Rate 119 H 08/17/20 10:00 Respiratory Rate 24 H 08/17/20 10:00 Blood Pressure 85/61 L 08/17/20 10:00 O2 Sat by Pulse Oximetry (%) 83 L 08/17/20 10:00 GENERAL: The patient is awake, alert, and fully oriented HEAD: temporal wasting improving EYES: PERRL, EOMI ENT: moist mucous membranes. NECK: trach in place LUNGS: Breath sounds decreased at bases BL. Overall more clear breath sounds BL HEART: Regular rhythm, tachy ABDOMEN: Peg in place, peritoneal drain on R side EXTREMITIES: warm, well-perfused, mild edema BL NEUROLOGICAL: Cranial nerves II through XII grossly intact. PSYCH: Normal mood, normal affect. SKIN: sacral ulcer stage 4 Intake & Output 08/16/20 08/17/20 08/17/20 23:59 07:59 15:59 Intake Total 1364 934 Output Total 5 320 Balance 1359 614 Weight 33.112 kg Intake: IV 504 504 Normal Saline - 1,000 ml 504 504 @ 42 mls/hr IV [facility] Rx#:[id number] IVPB 200 50 Tube Feeding 540 280 Tube Irrigant (Tube 120 100 Feeding Water) Output: Chest Tube Drainage 5 Left Lateral Chest 5 Drainage 20 Right Abdomen 20 Urine 300 Uribe 300 Other: Voiding Method Indwelling Catheter Indwelling Catheter Bowel Movement Yes Yes # Bowel Movements 2 Weight Measurement Method Built in [facility] 08/14/20 08/15/20 08/16/20 08/17/20 23:59 23:59 23:59 23:59 Intake Total 930 1842 3580 934 Output Total 1140 900 955 320 Balance -618 379 4972 614 Weight 33.112 kg 33.112 kg Laboratory Results - last 24 hr 08/13/20 08/16/20 08/16/20 09:50 13:03 18:11 WBC RBC Hgb Hct MCV MCH MCHC RDW Plt Count MPV Sodium Potassium Chloride Carbon Dioxide Anion Gap BUN Creatinine Est GFR (CKD-EPI)AfAm Est GFR (CKD-EPI)NonAf POC Glucometer 135 128 Random Glucose Calcium Phosphorus Magnesium Total Bilirubin AST ALT Alkaline Phosphatase Total Protein Albumin Blood Type O POSITIVE Antibody Screen Negative Crossmatch See Detail 08/16/20 08/17/20 08/17/20 21:26 06:42 06:42 WBC 11.8 H RBC 3.57 L Hgb 11.0 Hct 32.2 L MCV 90.1 MCH 30.7 MCHC 34.1 RDW 16.4 H Plt Count 389 MPV 7.7 Sodium 134 L Potassium 3.9 Chloride 102 Carbon Dioxide 26 Anion Gap 6 L BUN 14.3 Creatinine 0.2 L Est GFR (CKD-EPI)AfAm 196.46 Est GFR (CKD-EPI)NonAf 169.51 POC Glucometer 71 Random Glucose 61 L Calcium 7.1 L Phosphorus 2.9 Magnesium 1.7 L Total Bilirubin 1.2 H AST 33 ALT 39 Alkaline Phosphatase 472 H Total Protein 4.3 L Albumin 1.4 L Blood Type Antibody Screen Crossmatch 08/17/20 06:55 WBC RBC Hgb Hct MCV MCH MCHC RDW Plt Count MPV Sodium Potassium Chloride Carbon Dioxide Anion Gap BUN Creatinine Est GFR (CKD-EPI)AfAm Est GFR (CKD-EPI)NonAf POC Glucometer 69 Random Glucose Calcium Phosphorus Magnesium Total Bilirubin AST ALT Alkaline Phosphatase Total Protein Albumin Blood Type Antibody Screen Crossmatch Active Medications Generic Name Dose Route Start Last Admin Trade Name Freq PRN Reason Stop Dose Admin Amino Acids 30 ml 08/08/20 12:45 08/17/20 10:15 Prosource No Carb Liquid Pkt PO 30 ml DAILY RAUL Administration Ascorbic Acid 500 mg 07/27/20 13:00 08/17/20 10:15 Vitamin C - PO 500 mg DAILY RAUL Administration Banana Based Medical Food 1 packet 08/13/20 14:00 08/17/20 05:41 Banatrol Plus Powder Packet PO 1 packet TID RAUL Administration Collagenase 1 applic 08/05/20 19:30 08/17/20 10:15 Santyl - TP 1 applic DAILY RAUL Administration Protocol Dextrose 12.5 gm 07/08/20 07:08 08/14/20 05:29 D50w (Vial) - IVPUSH 12.5 gm PRN PRN Administration HYPOGLYCEMIA Diazepam 2 mg 08/10/20 10:41 08/16/20 21:16 Valium - PO 2 mg 2100 PRN Administration INSOMNIA Famotidine 20 mg 08/04/20 10:45 08/16/20 10:43 Pepcid PEG 20 mg DAILY RAUL Administration Folic Acid 1 mg 07/06/20 10:00 08/17/20 10:16 Folic Acid - NGT 1 mg DAILY RAUL Administration Heparin Sodium (Porcine) 5,000 unit 07/20/20 10:00 08/17/20 10:15 Heparin - SQ 5,000 unit BID RAUL Administration Hydromorphone HCl 1 mg 07/26/20 13:39 08/17/20 07:41 Dilaudid Vial - IVPUSH 1 mg Q3H PRN Administration PAIN LEVEL 4 - 6 Piperacillin Sod/Tazobactam 50 mls @ 100 mls/hr 08/13/20 11:45 08/17/20 10:16 Sod 3.375 gm/ Dextrose IVPB 100 mls/hr Q8H-IV RAUL Administration Protocol Sodium Chloride 1,000 mls @ 42 mls/hr 08/17/20 08:30 Normal Saline - IV 08/18/20 08:19 ASDIR RAUL Lactobacillus Acidophilus 1 tab 08/08/20 12:45 08/17/20 10:14 Bacid - PEG 1 tab DAILY RAUL Administration Lidocaine 1 patch 08/09/20 11:30 08/17/20 10:15 Lidoderm Patch - TP 1 patch DAILY RAUL Administration Lidocaine HCl 1 applic 07/25/20 21:50 08/17/20 10:16 Xylocaine 5% Top. Ointment TP 1 applic DAILY RAUL Administration Methadone HCl 5 mg 08/17/20 11:00 Dolophine - PO BID RAUL Miscellaneous 1 each 08/09/20 23:00 08/17/20 07:41 Lidoderm Patch Removal MC Not Given DAILY@2200 RAUL Morphine Sulfate 1 mg 08/08/20 10:43 08/17/20 05:41 Morphine Sulfate IVPUSH 1 mg Q6H PRN Administration PAIN LEVEL 1-3 Multi-Ingredient Ointment 1 applic 07/19/20 13:30 08/17/20 10:16 Zinc Oxide TP 1 applic DAILY RAUL Administration Multivitamins/Minerals 15 ml 07/06/20 11:45 08/17/20 10:52 Certavite-Antioxidant Liquid NGT 15 ml DAILY RAUL Administration Thiamine HCl 100 mg 07/11/20 12:45 08/17/20 10:15 Vitamin B1 Injection - IVPB 100 mg DAILY RAUL Administration ASSESSMENT/PLAN: v=35F with PMH of malnutrition 2/2 bulimia and polysubstance use disorder, cirrhosis, & heroin abuse, in ICU with sepsis and acute hypoxic respiratory failure, now s/p trach, abdominal peritoneal drain, PEG placement, and L chest tube. Trach replaced with smaller size 08/15. 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 - AOx3, communicates with pen/paper - Pain control on Dilaudid Q3H, Morphine 1mg PRN, restart methadone 5 mg PO BID, trend LFTs - consult pain management - Diazepam for insomnia CVS - MAP stable, no pressor support - tachy most likely due to sepsis, monitor Resp - Tracheostomy 07/25 - pneumothorax resolved, chest tube placed on day 2 water seal - Chest CT showed cavitary lesions - bronchoscopy with lavage 08/15 with sputum cultures collected - Trach replaced with size 6 (08/15) - hold off speech/swallow practice with passy surjit until overall more conditioned respiratory efforts - attempt daily trials of CPAP - high risk of recurrent pneumo GI - speech and swall re eval - peg feeds - Transaminitis resolved - diarrhea resolving - trend LFTs back on methadone ID - S/p Tigecycline (08/07) - CT chest showed cavitations, sputum cultures lactose fermenting neg bacilli - ID consulted (Dr. Martines) - Sepsis improving - zosyn q8h day 5 - LFTs stable Renal - sodium stable Heme - continue to monitor Hbg - transfuse if hbg < 7 Derm - Multiple Sacral Ulcers (stage 4) - Daily wound care, air mattress, w/ frequent turns - Off-loading to all bony areas (heels, ankles, hips and tailbone) with Allevyn/Optifoam FEN - Jevity w/ Prosource to reduce volume and increase calories - feeds almost at goal - monitor and replete lytes PRN - sodium improved, continue to monitor DVT PPx - Heparin BID Dispo: Auth remains pending with Fidelis. Martinez from [facility] confirmed patient cont inues to be accepted. CCC will continue to follow Visit type - Emergency Visit Emergency Visit: Yes ED Registration Date: 07/01/20 Care time: The patient presented to the Emergency Department on the above date and was hospitalized for further evaluation of their emergent condition. - New Patient This patient is new to me today: No - Critical Care Critical Care patient: Yes Total Critical Care Time (in minutes): 38 Critical Care Statement: The care of this patient involved high complexity decision making to prevent further life threatening deterioration of the patient's condition and/or to evaluate & treat vital organ system(s) failure or risk of failure. - Discharge Referral Referred to [facility] Med [facility] No ATTENDING PHYSICIAN STATEMENT I saw and evaluated the patient. I reviewed the resident's note and discussed the case with the resident. I agree with the resident's findings and plan as documented. SUBJECTIVE: OBJECTIVE: ASSESSMENT AND PLAN:
--- NOTE | 2020-08-17 12:09 | PN ---
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 - Note Progress Note: Selected Entries 08/16/20 08/16/20 08/16/20 09:00 10:00 19:00 Skin Risk Level High Risk High Risk High Risk Total Score - 10 10 10 Skin Risk Assessment Temperature Pulse Rate Respiratory Rate Blood Pressure O2 Sat by Pulse Oximetry (%) Oxygen Delivery Method Fraction of Inspired Oxygen (FIO2) Weight 08/17/20 08/17/20 08/17/20 00:00 00:10 02:00 Skin Risk Level Total Score - Skin Risk Assessment Temperature Pulse Rate 110 H 88 Respiratory 19 14 14 Rate Blood Pressure 94/75 100/78 O2 Sat by Pulse 98 97 95 Oximetry (%) Oxygen Delivery Method Fraction of 50 Inspired Oxygen (FIO2) Weight 08/17/20 08/17/20 08/17/20 04:00 04:15 06:00 Skin Risk Level Total Score - Skin Risk Assessment Temperature 98.0 F Pulse Rate 93 H 112 H Respiratory 14 14 17 Rate Blood Pressure 96/75 94/69 O2 Sat by Pulse 97 97 98 Oximetry (%) Oxygen Delivery Method Fraction of 50 Inspired Oxygen (FIO2) Weight 73 lb 08/17/20 08/17/20 08/17/20 08:00 08:23 10:00 Skin Risk Level Total Score - Skin Risk Assessment Temperature 98.5 F Pulse Rate 113 H 108 H 119 H Respiratory 17 17 24 H Rate Blood Pressure 92/68 85/61 L O2 Sat by Pulse 89 L 98 83 L Oximetry (%) Oxygen Delivery Mechanical Method Ventilator Fraction of 50 Inspired Oxygen (FIO2) Weight 08/17/20 11:44 Skin Risk Level Total Score - Skin Risk Assessment Temperature Pulse Rate Respiratory 26 H Rate Blood Pressure O2 Sat by Pulse Oximetry (%) Oxygen Delivery Method Fraction of 50 Inspired Oxygen (FIO2) Weight Laboratory Tests 08/16/20 08/17/20 05:58 06:42 WBC 14.0 H 11.8 H Case reviewed with critical care team. To defer PMV use until medically improved.
--- NOTE | 2020-08-17 13:05 | PN ---
Progress Note, Physician History of Present Illness: Pt seen and examined. She appears comfortable. She remains on vent. - Current Medication List Current Medications: Active Medications Amino Acids (Prosource No Carb Liquid Pkt) 30 ml PO DAILY [facility] Last Admin: 08/17/20 10:15 Dose: 30 ml Documented by: Ascorbic Acid (Vitamin C -) 500 mg PO DAILY [facility] Last Admin: 08/17/20 10:15 Dose: 500 mg Documented by: Banana Based Medical Food (Banatrol Plus Powder Packet) 1 packet PO TID [facility] Last Admin: 08/17/20 05:41 Dose: 1 packet Documented by: Collagenase (Santyl -) 1 applic TP DAILY [facility]; Protocol Last Admin: 08/17/20 10:15 Dose: 1 applic Documented by: Dextrose (D50w (Vial) -) 12.5 gm IVPUSH PRN PRN PRN Reason: HYPOGLYCEMIA Last Admin: 08/14/20 05:29 Dose: 12.5 gm Documented by: Diazepam (Valium -) 2 mg PO 2100 PRN PRN Reason: INSOMNIA Last Admin: 08/16/20 21:16 Dose: 2 mg Documented by: Famotidine (Pepcid) 20 mg PEG DAILY [facility] Last Admin: 08/16/20 10:43 Dose: 20 mg Documented by: Folic Acid (Folic Acid -) 1 mg NGT DAILY [facility] Last Admin: 08/17/20 10:16 Dose: 1 mg Documented by: Heparin Sodium (Porcine) (Heparin -) 5,000 unit SQ BID [facility] Last Admin: 08/17/20 10:15 Dose: 5,000 unit Documented by: Hydromorphone HCl (Dilaudid Vial -) 1 mg IVPUSH Q3H PRN PRN Reason: PAIN LEVEL 4 - 6 Last Admin: 08/17/20 07:41 Dose: 1 mg Documented by: Piperacillin Sod/Tazobactam (Sod 3.375 gm/ Dextrose) 50 mls @ 100 mls/hr IVPB Q8H-IV [facility]; Protocol Last Admin: 08/17/20 10:16 Dose: 100 mls/hr Documented by: Sodium Chloride (Normal Saline -) 1,000 mls @ 42 mls/hr IV ASDIR [facility] Stop: 08/18/20 08:19 Lactobacillus Acidophilus (Bacid -) 1 tab PEG DAILY [facility] Last Admin: 08/17/20 10:14 Dose: 1 tab Documented by: Lidocaine (Lidoderm Patch -) 1 patch TP DAILY [facility] Last Admin: 08/17/20 10:15 Dose: 1 patch Documented by: Lidocaine HCl (Xylocaine 5% Top. Ointment) 1 applic TP DAILY [facility] Last Admin: 08/17/20 10:16 Dose: 1 applic Documented by: Methadone HCl (Dolophine -) 5 mg PO BID [facility] Miscellaneous (Lidoderm Patch Removal) 1 each MC DAILY@2200 [facility] Last Admin: 08/17/20 07:41 Dose: Not Given Documented by: Morphine Sulfate (Morphine Sulfate) 1 mg IVPUSH Q6H PRN PRN Reason: PAIN LEVEL 1-3 Last Admin: 08/17/20 05:41 Dose: 1 mg Documented by: Multi-Ingredient Ointment (Zinc Oxide) 1 applic TP DAILY [facility] Last Admin: 08/17/20 10:16 Dose: 1 applic Documented by: Multivitamins/Minerals (Certavite-Antioxidant Liquid) 15 ml NGT DAILY [facility] Last Admin: 08/17/20 10:52 Dose: 15 ml Documented by: Thiamine HCl (Vitamin B1 Injection -) 100 mg IVPB DAILY [facility] Last Admin: 08/17/20 10:15 Dose: 100 mg Documented by: - Objective Vital Signs: Vital Signs Temperature 98.5 F 08/17/20 10:00 Pulse Rate 119 H 08/17/20 10:00 Respiratory Rate 26 H 08/17/20 11:44 Blood Pressure 85/61 L 08/17/20 10:00 O2 Sat by Pulse Oximetry (%) 83 L 08/17/20 10:00 Constitutional: Yes: Calm Eyes: Yes: Conjunctiva Clear HENT: Yes: Atraumatic Neck: Yes: Supple Cardiovascular: Yes: S1, S2 Respiratory: Yes: Mechanically Ventilated Gastrointestinal: Yes: Soft Genitourinary: Yes: Uribe Present Edema: Yes Edema: LLE: Trace, RLE: Trace Neurological: Yes: Oriented Psychiatric: Yes: Oriented Labs: CBC, BMP 08/17/20 06:42 08/17/20 06:42 INR, PTT INR 1.21 (0.83-1.09) H 08/16/20 05:58 Fibrinogen 344.0 mg/dL (238-498) 07/21/20 06:00 Problem List - Problems (1) Hypoglycemia Code(s): E16.2 - HYPOGLYCEMIA, UNSPECIFIED (2) Sepsis Code(s): A41.9 - SEPSIS, UNSPECIFIED ORGANISM Qualifiers: Sepsis type: sepsis due to unspecified organism Sepsis acute organ dysfunction status: unspecified Qualified Code(s): A41.9 - Sepsis, unspecified organism (3) Hypoalbuminemia Code(s): E88.09 - OTH DISORDERS OF PLASMA-PROTEIN METABOLISM, NEC (4) Hyponatremia Code(s): E87.1 - HYPO-OSMOLALITY AND HYPONATREMIA Assessment/Plan Current Medications Generic Name Dose Route Start Last Admin Trade Name Freq PRN Reason Stop Dose Admin Amino Acids 30 ml 08/08/20 12:45 08/17/20 10:15 Prosource No Carb Liquid Pkt PO 30 ml DAILY [facility] Administration Ascorbic Acid 500 mg 07/27/20 13:00 08/17/20 10:15 Vitamin C - PO 500 mg DAILY [facility] Administration Banana Based Medical Food 1 packet 08/13/20 14:00 08/17/20 05:41 Banatrol Plus Powder Packet PO 1 packet TID [facility] Administration Collagenase 1 applic 08/05/20 19:30 08/17/20 10:15 Santyl - TP 1 applic DAILY [facility] Administration Protocol Dextrose 12.5 gm 07/08/20 07:08 08/14/20 05:29 D50w (Vial) - IVPUSH 12.5 gm PRN PRN Administration HYPOGLYCEMIA Diazepam 2 mg 08/10/20 10:41 08/16/20 21:16 Valium - PO 2 mg 2100 PRN Administration INSOMNIA Famotidine 20 mg 08/04/20 10:45 08/16/20 10:43 Pepcid PEG 20 mg DAILY [facility] Administration Folic Acid 1 mg 07/06/20 10:00 08/17/20 10:16 Folic Acid - NGT 1 mg DAILY [facility] Administration Heparin Sodium (Porcine) 5,000 unit 07/20/20 10:00 08/17/20 10:15 Heparin - SQ 5,000 unit BID [facility] Administration Hydromorphone HCl 1 mg 07/26/20 13:39 08/17/20 07:41 Dilaudid Vial - IVPUSH 1 mg Q3H PRN Administration PAIN LEVEL 4 - 6 Piperacillin Sod/Tazobactam 50 mls @ 100 mls/hr 08/13/20 11:45 08/17/20 10:16 Sod 3.375 gm/ Dextrose IVPB 100 mls/hr Q8H-IV [facility] Administration Protocol Sodium Chloride 1,000 mls @ 42 mls/hr 08/17/20 08:30 Normal Saline - IV 08/18/20 08:19 ASDIR [facility] Lactobacillus Acidophilus 1 tab 08/08/20 12:45 08/17/20 10:14 Bacid - PEG 1 tab DAILY [facility] Administration Lidocaine 1 patch 08/09/20 11:30 08/17/20 10:15 Lidoderm Patch - TP 1 patch DAILY [facility] Administration Lidocaine HCl 1 applic 07/25/20 21:50 08/17/20 10:16 Xylocaine 5% Top. Ointment TP 1 applic DAILY [facility] Administration Methadone HCl 5 mg 08/17/20 11:00 Dolophine - PO BID [facility] Miscellaneous 1 each 08/09/20 23:00 08/17/20 07:41 Lidoderm Patch Removal MC Not Given DAILY@2200 [facility] Morphine Sulfate 1 mg 08/08/20 10:43 08/17/20 05:41 Morphine Sulfate IVPUSH 1 mg Q6H PRN Administration PAIN LEVEL 1-3 Multi-Ingredient Ointment 1 applic 07/19/20 13:30 08/17/20 10:16 Zinc Oxide TP 1 applic DAILY [facility] Administration Multivitamins/Minerals 15 ml 07/06/20 11:45 08/17/20 10:52 Certavite-Antioxidant Liquid NGT 15 ml DAILY [facility] Administration Thiamine HCl 100 mg 07/11/20 12:45 08/17/20 10:15 Vitamin B1 Injection - IVPB 100 mg DAILY [facility] Administration Impression 1. azotemia 2. hyponatremia 3. hyperkalemia 4. hypotension 5. sepsis 6. sbo 7. uti 8. liver cirrhosis 9. hypoalbuminemia 10. etoh abuse 11. substance abuse 12. psoriasis 13. acute resp failure 14. malnutrition 15. 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 ascites Plan - cont feeds - monitor glucose - wound d/c saline if possible - vent support - dietary follow up
[2020-08-17] MEDS: METHADONE HCL 5 MG TABLET PO SCH ×2 (13:20→21:18)
--- NOTE | 2020-08-17 13:46 | PN ---
Teaching Attending Note Name of Resident: Yadira Hamilton ATTENDING PHYSICIAN STATEMENT I saw and evaluated the patient. I reviewed the resident's note and discussed the case with the resident. I agree with the resident's findings and plan as documented. SUBJECTIVE: Patient seen and examined in the ICU. Vented, awake. No fevers recorded. Resolved pneumothorax. Trach downsized to 6. OBJECTIVE: Intake & Output 08/14/20 08/15/20 08/16/20 08/17/20 23:59 23:59 23:59 23:59 Intake Total 930 1842 3580 934 Output Total 1140 900 955 320 Balance -351 416 8758 614 Weight 73 lb 73 lb Last Vital Signs Temp Pulse Resp BP Pulse Ox 98.5 F 112 H 18 97/78 99 08/17/20 10:00 08/17/20 12:00 08/17/20 12:00 08/17/20 12:00 08/17/20 12:00 Active Medications Amino Acids (Prosource No Carb Liquid Pkt) 30 ml PO DAILY [facility] Last Admin: 08/17/20 10:15 Dose: 30 ml Documented by: Ascorbic Acid (Vitamin C -) 500 mg PO DAILY [facility] Last Admin: 08/17/20 10:15 Dose: 500 mg Documented by: Banana Based Medical Food (Banatrol Plus Powder Packet) 1 packet PO TID [facility] Last Admin: 08/17/20 05:41 Dose: 1 packet Documented by: Collagenase (Santyl -) 1 applic TP DAILY [facility]; Protocol Last Admin: 08/17/20 10:15 Dose: 1 applic Documented by: Dextrose (D50w (Vial) -) 12.5 gm IVPUSH PRN PRN PRN Reason: HYPOGLYCEMIA Last Admin: 08/14/20 05:29 Dose: 12.5 gm Documented by: Diazepam (Valium -) 2 mg PO 2100 PRN PRN Reason: INSOMNIA Last Admin: 08/16/20 21:16 Dose: 2 mg Documented by: Famotidine (Pepcid) 20 mg PEG DAILY [facility] Last Admin: 08/16/20 10:43 Dose: 20 mg Documented by: Folic Acid (Folic Acid -) 1 mg NGT DAILY [facility] Last Admin: 08/17/20 10:16 Dose: 1 mg Documented by: Heparin Sodium (Porcine) (Heparin -) 5,000 unit SQ BID [facility] Last Admin: 08/17/20 10:15 Dose: 5,000 unit Documented by: Hydromorphone HCl (Dilaudid Vial -) 1 mg IVPUSH Q3H PRN PRN Reason: PAIN LEVEL 4 - 6 Last Admin: 08/17/20 07:41 Dose: 1 mg Documented by: Piperacillin Sod/Tazobactam (Sod 3.375 gm/ Dextrose) 50 mls @ 100 mls/hr IVPB Q8H-IV [facility]; Protocol Last Admin: 08/17/20 10:16 Dose: 100 mls/hr Documented by: Sodium Chloride (Normal Saline -) 1,000 mls @ 42 mls/hr IV ASDIR [facility] Stop: 08/18/20 08:19 Lactobacillus Acidophilus (Bacid -) 1 tab PEG DAILY [facility] Last Admin: 08/17/20 10:14 Dose: 1 tab Documented by: Lidocaine (Lidoderm Patch -) 1 patch TP DAILY [facility] Last Admin: 08/17/20 10:15 Dose: 1 patch Documented by: Lidocaine HCl (Xylocaine 5% Top. Ointment) 1 applic TP DAILY [facility] Last Admin: 08/17/20 10:16 Dose: 1 applic Documented by: Methadone HCl (Dolophine -) 5 mg PO BID [facility] Miscellaneous (Lidoderm Patch Removal) 1 each MC DAILY@2200 [facility] Last Admin: 08/17/20 07:41 Dose: Not Given Documented by: Morphine Sulfate (Morphine Sulfate) 1 mg IVPUSH Q6H PRN PRN Reason: PAIN LEVEL 1-3 Last Admin: 08/17/20 05:41 Dose: 1 mg Documented by: Multi-Ingredient Ointment (Zinc Oxide) 1 applic TP DAILY [facility] Last Admin: 08/17/20 10:16 Dose: 1 applic Documented by: Multivitamins/Minerals (Certavite-Antioxidant Liquid) 15 ml NGT DAILY [facility] Last Admin: 08/17/20 10:52 Dose: 15 ml Documented by: Thiamine HCl (Vitamin B1 Injection -) 100 mg IVPB DAILY [facility] Last Admin: 08/17/20 10:15 Dose: 100 mg Documented by: Gen: vented, cachectic Heart: RRR Lung: scattered rhonchi Abd: soft, nontender, +ascites Ext: no edema Laboratory Results - last 24 hr 10/12/20 10/15/20 10/15/20 09:50 18:11 21:26 WBC RBC Hgb Hct MCV MCH MCHC RDW Plt Count MPV Sodium Potassium Chloride Carbon Dioxide Anion Gap BUN Creatinine Est GFR (CKD-EPI)AfAm Est GFR (CKD-EPI)NonAf POC Glucometer 128 71 Random Glucose Calcium Phosphorus Magnesium Total Bilirubin AST ALT Alkaline Phosphatase Total Protein Albumin Blood Type O POSITIVE Antibody Screen Negative Crossmatch See Detail 08/17/20 08/17/20 08/17/20 06:42 06:42 06:55 WBC 11.8 H RBC 3.57 L Hgb 11.0 Hct 32.2 L MCV 90.1 MCH 30.7 MCHC 34.1 RDW 16.4 H Plt Count 389 MPV 7.7 Sodium 134 L Potassium 3.9 Chloride 102 Carbon Dioxide 26 Anion Gap 6 L BUN 14.3 Creatinine 0.2 L Est GFR (CKD-EPI)AfAm 196.46 Est GFR (CKD-EPI)NonAf 169.51 POC Glucometer 69 Random Glucose 61 L Calcium 7.1 L Phosphorus 2.9 Magnesium 1.7 L Total Bilirubin 1.2 H AST 33 ALT 39 Alkaline Phosphatase 472 H Total Protein 4.3 L Albumin 1.4 L Blood Type Antibody Screen Crossmatch ASSESSMENT AND PLAN: Acute Hypoxic Respiratory Failure s/p Tracheostomy Pneumonia likely Aspiration UTI Sepsis Hyponatremia Small Bowel Obstruction Ascites s/p Peritoneal drain placement Alcohol/Heroin Abuse Anemia/Thrombocytopenia Failure to Thrive Severe Protein Calorie Malnutrition Refeeding Syndrome - continue antibiotics per ID - f/u cultures - Hold PMV trials due to overall tenuous/poor condition - pain control: Restart Methadone and consult Dr Parra: monitor LFTs - monitor urine output, creatinine - titrate FiO2 to keep SpO2 >90% - enteral feeds - DVT/GI prophylaxis - continue ICU monitoring - for LTACH placement - Can downgrade Dr Babb
[2020-08-17] MEDS ORDERED: MAGNESIUM OXIDE 400 MG TABLET (FP) PO ONE (14:04)
--- NOTE | 2020-08-17 14:28 | PN ---
Progress Note, Physician History of Present Illness: AWAKE - Current Medication List Current Medications: Active Medications Amino Acids (Prosource No Carb Liquid Pkt) 30 ml PO DAILY [facility] Last Admin: 08/17/20 10:15 Dose: 30 ml Documented by: Ascorbic Acid (Vitamin C -) 500 mg PO DAILY [facility] Last Admin: 08/17/20 10:15 Dose: 500 mg Documented by: Banana Based Medical Food (Banatrol Plus Powder Packet) 1 packet PO TID [facility] Last Admin: 08/17/20 05:41 Dose: 1 packet Documented by: Collagenase (Santyl -) 1 applic TP DAILY [facility]; Protocol Last Admin: 08/17/20 10:15 Dose: 1 applic Documented by: Dextrose (D50w (Vial) -) 12.5 gm IVPUSH PRN PRN PRN Reason: HYPOGLYCEMIA Last Admin: 08/14/20 05:29 Dose: 12.5 gm Documented by: Diazepam (Valium -) 2 mg PO 2100 PRN PRN Reason: INSOMNIA Last Admin: 08/16/20 21:16 Dose: 2 mg Documented by: Famotidine (Pepcid) 20 mg PEG DAILY [facility] Last Admin: 08/17/20 10:00 Dose: 20 mg Documented by: Folic Acid (Folic Acid -) 1 mg NGT DAILY [facility] Last Admin: 08/17/20 10:16 Dose: 1 mg Documented by: Heparin Sodium (Porcine) (Heparin -) 5,000 unit SQ BID [facility] Last Admin: 08/17/20 10:15 Dose: 5,000 unit Documented by: Hydromorphone HCl (Dilaudid Vial -) 1 mg IVPUSH Q3H PRN PRN Reason: PAIN LEVEL 4 - 6 Last Admin: 08/17/20 07:41 Dose: 1 mg Documented by: Piperacillin Sod/Tazobactam (Sod 3.375 gm/ Dextrose) 50 mls @ 100 mls/hr IVPB Q8H-IV [facility]; Protocol Last Admin: 08/17/20 10:16 Dose: 100 mls/hr Documented by: Sodium Chloride (Normal Saline -) 1,000 mls @ 42 mls/hr IV ASDIR [facility] Stop: 08/18/20 08:19 Lactobacillus Acidophilus (Bacid -) 1 tab PEG DAILY [facility] Last Admin: 08/17/20 10:14 Dose: 1 tab Documented by: Lidocaine (Lidoderm Patch -) 1 patch TP DAILY [facility] Last Admin: 08/17/20 10:15 Dose: 1 patch Documented by: Lidocaine HCl (Xylocaine 5% Top. Ointment) 1 applic TP DAILY [facility] Last Admin: 08/17/20 10:16 Dose: 1 applic Documented by: Magnesium Oxide (Mag-Ox -) 400 mg PO ONCE ONE Stop: 08/17/20 14:05 Methadone HCl (Dolophine -) 5 mg PO BID [facility] Last Admin: 08/17/20 13:20 Dose: 5 mg Documented by: Miscellaneous (Lidoderm Patch Removal) 1 each MC DAILY@2200 [facility] Last Admin: 08/17/20 07:41 Dose: Not Given Documented by: Morphine Sulfate (Morphine Sulfate) 1 mg IVPUSH Q6H PRN PRN Reason: PAIN LEVEL 1-3 Last Admin: 08/17/20 05:41 Dose: 1 mg Documented by: Multi-Ingredient Ointment (Zinc Oxide) 1 applic TP DAILY [facility] Last Admin: 08/17/20 10:16 Dose: 1 applic Documented by: Multivitamins/Minerals (Certavite-Antioxidant Liquid) 15 ml NGT DAILY [facility] Last Admin: 08/17/20 10:52 Dose: 15 ml Documented by: Thiamine HCl (Vitamin B1 Injection -) 100 mg IVPB DAILY [facility] Last Admin: 08/17/20 10:15 Dose: 100 mg Documented by: - Objective Vital Signs: Vital Signs Temperature 98.5 F 08/17/20 10:00 Pulse Rate 102 H 08/17/20 14:00 Respiratory Rate 20 08/17/20 14:00 Blood Pressure 111/89 08/17/20 14:00 O2 Sat by Pulse Oximetry (%) 100 08/17/20 14:00 Constitutional: Yes: Cachectic HENT: Yes: Atraumatic Neck: Yes: Other (TRACH COLLAR) Cardiovascular: Yes: Regular Rate and Rhythm Respiratory: Yes: Rhonchi Gastrointestinal: Yes: Normal Bowel Sounds Neurological: Yes: Alert Labs: CBC, BMP 08/17/20 06:42 08/17/20 06:42 INR, PTT INR 1.21 (0.83-1.09) H 08/16/20 05:58 Fibrinogen 344.0 mg/dL (238-498) 07/21/20 06:00 Problem List - Problems (1) At risk for electrolyte imbalance Code(s): Z91.89 - OT PERSONAL RISK FACTORS, NOT ELSEWHERE CLASSIFIED (2) SBO (small bowel obstruction) Assessment/Plan: PEG IN PLACE Code(s): K56.609 - UNSP INTESTNL OBST, UNSP TO PARTIAL VERSUS COMPLETE OBST (3) Sepsis Assessment/Plan: IV ABX STABLE CXS NOTED Code(s): A41.9 - SEPSIS, UNSPECIFIED ORGANISM Qualifiers: Sepsis type: sepsis due to unspecified organism Sepsis acute organ dysfunction status: unspecified Qualified Code(s): A41.9 - Sepsis, unspecified organism (4) Alcoholic liver damage Code(s): K70.9 - ALCOHOLIC LIVER DISEASE, UNSPECIFIED (5) Hypoalbuminemia Code(s): E88.09 - OTH DISORDERS OF PLASMA-PROTEIN METABOLISM, NEC (6) Hyponatremia Code(s): E87.1 - HYPO-OSMOLALITY AND HYPONATREMIA (7) Liver cirrhosis, alcoholic Code(s): K70.30 - ALCOHOLIC CIRRHOSIS OF LIVER WITHOUT ASCITES (8) Ischemic hepatitis Code(s): K75.9 - INFLAMMATORY LIVER DISEASE, UNSPECIFIED (9) Respiratory failure Assessment/Plan: S/P TRACH ON VENT Code(s): J96.90 - RESPIRATORY FAILURE, UNSP, UNSP W HYPOXIA OR HYPERCAPNIA (10) UTI (urinary tract infection) Code(s): N39.0 - URINARY TRACT INFECTION, SITE NOT SPECIFIED Qualifiers: Urinary tract infection type: site unspecified Hematuria presence: with hematuria Qualified Code(s): N39.0 - Urinary tract infection, site not specified; R31.9 - Hematuria, unspecified (11) Elevated LFTs Assessment/Plan: IMPROVING MONITOR Code(s): R79.89 - OTHER SPECIFIED ABNORMAL FINDINGS OF BLOOD CHEMISTRY (12) Hypothermia Assessment/Plan: stable PRN BEAR HUGGER Code(s): T68.XXXA - HYPOTHERMIA, INITIAL ENCOUNTER (13) Skin abrasion Code(s): T14.8XXA - OTHER INJURY OF UNSPECIFIED BODY REGION, INITIAL ENCOUNTER (14) Sacral ulcer Code(s): L98.429 - NON-PRESSURE CHRONIC ULCER OF BACK WITH UNSPECIFIED SEVERITY (15) Severe malnutrition Code(s): E43 - UNSPECIFIED SEVERE PROTEIN-CALORIE MALNUTRITION (16) Pneumothorax on left Assessment/Plan: CHEST TUBE DC Code(s): J93.9 - PNEUMOTHORAX, UNSPECIFIED (17) Hypotension Assessment/Plan: BP STABLE Code(s): I95.9 - HYPOTENSION, UNSPECIFIED Assessment/Plan critical care time spent in reviewing chart, evaluating patient and formulating plan [address] cunningham today
--- NOTE | 2020-08-17 15:30 | PN ---
Progress Note, Physician - Current Medication List Current Medications: Active Medications Amino Acids (Prosource No Carb Liquid Pkt) 30 ml PO DAILY [facility] Last Admin: 08/17/20 10:15 Dose: 30 ml Documented by: Ascorbic Acid (Vitamin C -) 500 mg PO DAILY [facility] Last Admin: 08/17/20 10:15 Dose: 500 mg Documented by: Banana Based Medical Food (Banatrol Plus Powder Packet) 1 packet PO TID [facility] Last Admin: 08/17/20 05:41 Dose: 1 packet Documented by: Collagenase (Santyl -) 1 applic TP DAILY [facility]; Protocol Last Admin: 08/17/20 10:15 Dose: 1 applic Documented by: Dextrose (D50w (Vial) -) 12.5 gm IVPUSH PRN PRN PRN Reason: HYPOGLYCEMIA Last Admin: 08/14/20 05:29 Dose: 12.5 gm Documented by: Diazepam (Valium -) 2 mg PO 2100 PRN PRN Reason: INSOMNIA Last Admin: 08/16/20 21:16 Dose: 2 mg Documented by: Famotidine (Pepcid) 20 mg PEG DAILY [facility] Last Admin: 08/17/20 10:00 Dose: 20 mg Documented by: Folic Acid (Folic Acid -) 1 mg NGT DAILY [facility] Last Admin: 08/17/20 10:16 Dose: 1 mg Documented by: Heparin Sodium (Porcine) (Heparin -) 5,000 unit SQ BID [facility] Last Admin: 08/17/20 10:15 Dose: 5,000 unit Documented by: Hydromorphone HCl (Dilaudid Vial -) 1 mg IVPUSH Q3H PRN PRN Reason: PAIN LEVEL 4 - 6 Last Admin: 08/17/20 07:41 Dose: 1 mg Documented by: Piperacillin Sod/Tazobactam (Sod 3.375 gm/ Dextrose) 50 mls @ 100 mls/hr IVPB Q8H-IV [facility]; Protocol Last Admin: 08/17/20 10:16 Dose: 100 mls/hr Documented by: Sodium Chloride (Normal Saline -) 1,000 mls @ 42 mls/hr IV ASDIR [facility] Stop: 08/18/20 08:19 Lactobacillus Acidophilus (Bacid -) 1 tab PEG DAILY [facility] Last Admin: 08/17/20 10:14 Dose: 1 tab Documented by: Lidocaine (Lidoderm Patch -) 1 patch TP DAILY [facility] Last Admin: 08/17/20 10:15 Dose: 1 patch Documented by: Lidocaine HCl (Xylocaine 5% Top. Ointment) 1 applic TP DAILY [facility] Last Admin: 08/17/20 10:16 Dose: 1 applic Documented by: Methadone HCl (Dolophine -) 5 mg PO BID [facility] Last Admin: 08/17/20 13:20 Dose: 5 mg Documented by: Miscellaneous (Lidoderm Patch Removal) 1 each MC DAILY@2200 [facility] Last Admin: 08/17/20 07:41 Dose: Not Given Documented by: Morphine Sulfate (Morphine Sulfate) 1 mg IVPUSH Q6H PRN PRN Reason: PAIN LEVEL 1-3 Last Admin: 08/17/20 05:41 Dose: 1 mg Documented by: Multi-Ingredient Ointment (Zinc Oxide) 1 applic TP DAILY [facility] Last Admin: 08/17/20 10:16 Dose: 1 applic Documented by: Multivitamins/Minerals (Certavite-Antioxidant Liquid) 15 ml NGT DAILY [facility] Last Admin: 08/17/20 10:52 Dose: 15 ml Documented by: Thiamine HCl (Vitamin B1 Injection -) 100 mg IVPB DAILY [facility] Last Admin: 08/17/20 10:15 Dose: 100 mg Documented by: - Objective Vital Signs: Vital Signs Temperature 98.5 F 08/17/20 10:00 Pulse Rate 102 H 08/17/20 14:00 Respiratory Rate 20 08/17/20 14:00 Blood Pressure 111/89 08/17/20 14:00 O2 Sat by Pulse Oximetry (%) 100 08/17/20 14:00 Labs: CBC, BMP 08/17/20 06:42 08/17/20 06:42 INR, PTT INR 1.21 (0.83-1.09) H 08/16/20 05:58 Fibrinogen 344.0 mg/dL (238-498) 07/21/20 06:00
[2020-08-18] MEDS: PIPERACILLIN/TAZOB 3.375 GM 3.375 GM in DEXTROSE 5%-WATER - 50 ML IVPB SCH ×3 (02:00→17:44)
[2020-08-18] MEDS ORDERED: DEXTROSE 50%-WATER - 25 GM/50 ML VIAL IVPUSH ONE (06:16)
[2020-08-18] MEDS ORDERED: DEXTROSE 50%-WATER - 25 GM/50 ML VIAL ONE (06:27)
[2020-08-18] MEDS: BANATROL PLUS POWDER PACKET PO SCH ×3 (06:51→21:29)
[2020-08-18 07:20] LABS: HEMATOCRIT 31.7 % (32.4-45.2); HEMOGLOBIN 10.9 GM/dL (10.7-15.3); MCH 31.6 pg (25.7-33.7); MCHC 34.3 g/dl (32.0-36.0); MEAN CELL VOLUME 92.3 fl (80-96); MEAN PLT VOLUME 7.6 fl (7.5-11.1); PLATELET COUNT 350 K/MM3 (134-434); RBC 3.44 M/mm3 (3.60-5.2); RDW 16.2 % (11.6-15.6); WHITE BLOOD COUNT 7.5 K/mm3 (4.0-10.0)
[2020-08-18 07:25] LABS: INR 1.37 (0.83-1.09); PROTHROMBIN TIME (PATIENT) 16.7 SEC (9.7-13.0)
[2020-08-18 07:35] LABS: POTASSIUM 4.1 mmol/L (3.5-5.1)
[2020-08-18 07:51] LABS: CALCIUM 7.3 mg/dL (8.5-10.1)
[2020-08-18 07:52] LABS: BLOOD UREA NITROGEN 15.8 mg/dL (7-18); MAGNESIUM 1.7 mg/dL (1.8-2.4)
[2020-08-18 07:53] LABS: ALBUMIN 1.4 g/dl (3.4-5.0)
[2020-08-18 07:55] LABS: CREATININE 0.2 mg/dL (0.55-1.3); PHOSPHOROUS 3.5 mg/dL (2.5-4.9)
[2020-08-18 07:56] LABS: BILIRUBIN,TOTAL 0.7 mg/dL (0.2-1); TOT PROT 4.5 g/dl (6.4-8.2)
--- NOTE | 2020-08-18 07:58 | PN ---
Progress Note (short form) - Note Progress Note: Pulm/CCM SUBJECTIVE: Patient seen and examined in the ICU. -awake, vented -no events overnight, afebrile -awaiting placement OBJECTIVE: Vital Signs Temp 98.6 F 08/18/20 06:00 Pulse 100 H 08/18/20 06:00 Resp 17 08/18/20 06:00 BP 112/79 08/18/20 06:00 Pulse Ox 99 08/18/20 06:00 Intake & Output 08/17/20 08/17/20 08/18/20 11:59 23:59 11:59 Intake Total 934 710 Output Total 320 400 550 Balance 614 -400 160 Weight 33.112 kg 33.15 kg Intake: IV 504 Normal Saline - 1,000 ml 504 @ 42 mls/hr IV ASDIR [facility] Rx#:[id number] IVPB 50 50 Tube Feeding 280 540 Tube Irrigant (Tube 100 120 Feeding Water) Output: Drainage 20 300 Right Abdomen 20 300 Urine 300 150 250 Uribe 300 150 250 Ileostomy 250 Other: Voiding Method Indwelling Catheter Indwelling Catheter Indwelling Catheter Bowel Movement Yes Yes Yes # Bowel Movements 2 1 1 Body Mass Index (BMI) 12.5 Weight Measurement Method Built in Bedscale Built in Bedscale Active Medications Albumin Human (Albumin Human 25%) 12.5 gm IVPB Q6H [facility] Stop: 08/18/20 14:01 Amino Acids (Prosource No Carb Liquid Pkt) 30 ml PO DAILY [facility] Last Admin: 08/17/20 10:15 Dose: 30 ml Documented by: Ascorbic Acid (Vitamin C -) 500 mg PO DAILY [facility] Last Admin: 08/17/20 10:15 Dose: 500 mg Documented by: Banana Based Medical Food (Banatrol Plus Powder Packet) 1 packet PO TID [facility] Last Admin: 08/18/20 06:51 Dose: 1 packet Documented by: Collagenase (Santyl -) 1 applic TP DAILY [facility]; Protocol Last Admin: 08/17/20 10:15 Dose: 1 applic Documented by: Dextrose (D50w (Vial) -) 12.5 gm IVPUSH PRN PRN PRN Reason: HYPOGLYCEMIA Last Admin: 08/14/20 05:29 Dose: 12.5 gm Documented by: Diazepam (Valium -) 2 mg PO 2100 PRN PRN Reason: INSOMNIA Last Admin: 08/16/20 21:16 Dose: 2 mg Documented by: Famotidine (Pepcid) 20 mg PEG DAILY [facility] Last Admin: 08/17/20 10:00 Dose: 20 mg Documented by: Folic Acid (Folic Acid -) 1 mg NGT DAILY [facility] Last Admin: 08/17/20 10:16 Dose: 1 mg Documented by: Heparin Sodium (Porcine) (Heparin -) 5,000 unit SQ BID [facility] Last Admin: 08/17/20 21:18 Dose: 5,000 unit Documented by: Hydromorphone HCl (Dilaudid Vial -) 1 mg IVPUSH Q3H PRN PRN Reason: PAIN LEVEL 4 - 6 Last Admin: 08/17/20 21:18 Dose: 1 mg Documented by: Piperacillin Sod/Tazobactam (Sod 3.375 gm/ Dextrose) 50 mls @ 100 mls/hr IVPB Q8H-IV [facility]; Protocol Last Admin: 08/18/20 02:00 Dose: 100 mls/hr Documented by: Sodium Chloride (Normal Saline -) 1,000 mls @ 42 mls/hr IV [facility] Stop: 08/18/20 08:19 Last Admin: 08/17/20 10:00 Dose: 42 mls/hr Documented by: Lactobacillus Acidophilus (Bacid -) 1 tab PEG DAILY [facility] Last Admin: 08/17/20 10:14 Dose: 1 tab Documented by: Lidocaine (Lidoderm Patch -) 1 patch TP DAILY [facility] Last Admin: 08/17/20 10:15 Dose: 1 patch Documented by: Lidocaine HCl (Xylocaine 5% Top. Ointment) 1 applic TP DAILY [facility] Last Admin: 08/17/20 10:16 Dose: 1 applic Documented by: Methadone HCl (Dolophine -) 5 mg PO BID [facility] Last Admin: 08/17/20 21:18 Dose: 5 mg Documented by: Miscellaneous (Lidoderm Patch Removal) 1 each MC DAILY@2200 [facility] Last Admin: 08/17/20 07:41 Dose: Not Given Documented by: Morphine Sulfate (Morphine Sulfate) 1 mg IVPUSH Q6H PRN PRN Reason: PAIN LEVEL 1-3 Last Admin: 08/17/20 05:41 Dose: 1 mg Documented by: Multi-Ingredient Ointment (Zinc Oxide) 1 applic TP DAILY [facility] Last Admin: 08/17/20 10:16 Dose: 1 applic Documented by: Multivitamins/Minerals (Certavite-Antioxidant Liquid) 15 ml NGT DAILY [facility] Last Admin: 08/17/20 10:52 Dose: 15 ml Documented by: Thiamine HCl (Vitamin B1 Injection -) 100 mg IVPB DAILY [facility] Last Admin: 08/17/20 10:15 Dose: 100 mg Documented by: Gen: vented, cachectic, bitemporal wasting Heart: RRR Lung: scattered rhonchi Abd: soft, nontender, +ascites, drain in place Ext: no edema Neuro: follows simple commands Laboratory Results - last 24 hr 08/17/20 08/17/20 08/17/20 06:42 06:42 17:02 WBC 11.8 H RBC 3.57 L Hgb 11.0 Hct 32.2 L MCV 90.1 MCH 30.7 MCHC 34.1 RDW 16.4 H Plt Count 389 MPV 7.7 PT with INR INR Sodium 134 L Potassium 3.9 Chloride 102 Carbon Dioxide 26 Anion Gap 6 L BUN 14.3 Creatinine 0.2 L Est GFR (CKD-EPI)AfAm 196.46 Est GFR (CKD-EPI)NonAf 169.51 POC Glucometer 95 Random Glucose 61 L Calcium 7.1 L Phosphorus 2.9 Magnesium 1.7 L Total Bilirubin 1.2 H AST 33 ALT 39 Alkaline Phosphatase 472 H Total Protein 4.3 L Albumin 1.4 L 08/18/20 08/18/20 08/18/20 06:15 06:44 06:44 WBC 7.5 RBC 3.44 L Hgb 10.9 Hct 31.7 L MCV 92.3 MCH 31.6 MCHC 34.3 RDW 16.2 H Plt Count 350 MPV 7.6 PT with INR 16.70 H INR 1.37 H Sodium Potassium Chloride Carbon Dioxide Anion Gap BUN Creatinine Est GFR (CKD-EPI)AfAm Est GFR (CKD-EPI)NonAf POC Glucometer 56 Random Glucose Calcium Phosphorus Magnesium Total Bilirubin AST ALT Alkaline Phosphatase Total Protein Albumin 08/18/20 06:44 WBC RBC Hgb Hct MCV MCH MCHC RDW Plt Count MPV PT with INR INR Sodium 137 Potassium 4.1 Chloride Carbon Dioxide 27 Anion Gap BUN 15.8 Creatinine 0.2 L Est GFR (CKD-EPI)AfAm 196.46 Est GFR (CKD-EPI)NonAf 169.51 POC Glucometer Random Glucose 52 L Calcium 7.3 L Phosphorus 3.5 Magnesium 1.7 L Total Bilirubin AST 40 H ALT 41 Alkaline Phosphatase Total Protein Albumin 1.4 L ASSESSMENT AND PLAN: Acute Hypoxic Respiratory Failure s/p Tracheostomy Pneumonia likely Aspiration UTI Sepsis Hyponatremia Small Bowel Obstruction Ascites s/p Peritoneal drain placement Alcohol/Heroin Abuse Anemia/Thrombocytopenia Failure to Thrive Severe Protein Calorie Malnutrition Refeeding Syndrome - continue antibiotics per ID - f/u cultures - maintain on MV for now - pain control:standing methadone and prns - monitor urine output, creatinine - titrate FiO2 to keep SpO2 >90% - enteral feeds - DVT/GI prophylaxis - continue ICU monitoring - for LTACH placement - Can downgrade, or transfer direct to LTACH once avail [place] [facility] [id number]
[2020-08-18] MEDS ORDERED: PT OWN MED DRAWER 7, Y5N ONE (09:21)
[2020-08-18] MEDS ORDERED: DEXTROSE 5%-WATER - 50 ML IVPB ONE ×3 (09:21→23:35)
[2020-08-18] MEDS ORDERED: PIPERACILLIN/TAZOBACTAM 3.375 GM VIAL IVPB ONE ×3 (09:21→23:34)
[2020-08-18] MEDS: LIDOCAINE 5% TOPICAL PATCH TP SCH (10:00)
[2020-08-18] MEDS: FAMOTIDINE 40 MG/5 ML ORAL SUSPENSION PEG SCH (10:03)
[2020-08-18] MEDS: THIAMINE HCL 200 MG/2 ML VIAL IVPB SCH (10:03)
[2020-08-18] MEDS: AMINO ACIDS/PROTEIN HYDROLYS 30 ML LIQUID.PKT PO SCH (10:03)
[2020-08-18] MEDS: METHADONE HCL 5 MG TABLET PO SCH ×2 (10:04→21:35)
[2020-08-18] MEDS: MULTIVIT-MINERALS ORAL LIQUID NGT SCH (10:04)
[2020-08-18] MEDS: ALBUMIN HUMAN 25% 12.5 GM/50 ML VIAL IVPB SCH ×2 (10:05→14:22)
[2020-08-18] MEDS: LACTOBACILLUS ACIDOPHILUS 1 TABLET PEG SCH (10:05)
[2020-08-18] MEDS: ASCORBIC ACID 500 MG TABLET (FP) PO SCH (10:05)
[2020-08-18] MEDS: HEPARIN NA (PORCINE) 5,000 UNITS/ML 1ML VIAL SQ SCH ×2 (10:05→21:29)
[2020-08-18] MEDS: FOLIC ACID 1 MG TABLET (FP) NGT SCH (10:05)
[2020-08-18] MEDS: COLLAGENASE CLOSTRIDIUM HIST. 30 GRAMS TUBE TP SCH (10:08)
[2020-08-18] MEDS: ZINC OXIDE 20% TOPICAL OINTMENT 30 GM TUBE TP SCH (10:08)
--- NOTE | 2020-08-18 13:45 | PN ---
Progress Note, Physician - Current Medication List Current Medications: Active Medications Albumin Human (Albumin Human 25%) 12.5 gm IVPB Q6H [facility] Stop: 08/18/20 14:01 Last Admin: 08/18/20 10:05 Dose: 12.5 gm Documented by: Amino Acids (Prosource No Carb Liquid Pkt) 30 ml PO DAILY [facility] Last Admin: 08/18/20 10:03 Dose: 30 ml Documented by: Ascorbic Acid (Vitamin C -) 500 mg PO DAILY [facility] Last Admin: 08/18/20 10:05 Dose: 500 mg Documented by: Banana Based Medical Food (Banatrol Plus Powder Packet) 1 packet PO TID [facility] Last Admin: 08/18/20 06:51 Dose: 1 packet Documented by: Collagenase (Santyl -) 1 applic TP DAILY [facility]; Protocol Last Admin: 08/18/20 10:08 Dose: 1 applic Documented by: Dextrose (D50w (Vial) -) 12.5 gm IVPUSH PRN PRN PRN Reason: HYPOGLYCEMIA Last Admin: 08/14/20 05:29 Dose: 12.5 gm Documented by: Diazepam (Valium -) 2 mg PO 2100 PRN PRN Reason: INSOMNIA Last Admin: 08/16/20 21:16 Dose: 2 mg Documented by: Famotidine (Pepcid) 20 mg PEG DAILY [facility] Last Admin: 08/18/20 10:03 Dose: 20 mg Documented by: Folic Acid (Folic Acid -) 1 mg NGT DAILY [facility] Last Admin: 08/18/20 10:05 Dose: 1 mg Documented by: Heparin Sodium (Porcine) (Heparin -) 5,000 unit SQ BID [facility] Last Admin: 08/18/20 10:05 Dose: 5,000 unit Documented by: Hydromorphone HCl (Dilaudid Vial -) 1 mg IVPUSH Q3H PRN PRN Reason: PAIN LEVEL 4 - 6 Last Admin: 08/17/20 21:18 Dose: 1 mg Documented by: Piperacillin Sod/Tazobactam (Sod 3.375 gm/ Dextrose) 50 mls @ 100 mls/hr IVPB Q8H-IV [facility]; Protocol Last Admin: 08/18/20 10:08 Dose: 100 mls/hr Documented by: Lactobacillus Acidophilus (Bacid -) 1 tab PEG DAILY [facility] Last Admin: 08/18/20 10:05 Dose: 1 tab Documented by: Lidocaine (Lidoderm Patch -) 1 patch TP DAILY [facility] Last Admin: 08/18/20 10:00 Dose: 1 patch Documented by: Lidocaine HCl (Xylocaine 5% Top. Ointment) 1 applic TP DAILY [facility] Last Admin: 08/17/20 10:16 Dose: 1 applic Documented by: Methadone HCl (Dolophine -) 5 mg PO BID [facility] Last Admin: 08/18/20 10:04 Dose: 5 mg Documented by: Miscellaneous (Lidoderm Patch Removal) 1 each MC DAILY@2200 [facility] Last Admin: 08/17/20 07:41 Dose: Not Given Documented by: Morphine Sulfate (Morphine Sulfate) 1 mg IVPUSH Q6H PRN PRN Reason: PAIN LEVEL 1-3 Last Admin: 08/17/20 05:41 Dose: 1 mg Documented by: Multi-Ingredient Ointment (Zinc Oxide) 1 applic TP DAILY [facility] Last Admin: 08/18/20 10:08 Dose: 1 applic Documented by: Multivitamins/Minerals (Certavite-Antioxidant Liquid) 15 ml NGT DAILY [facility] Last Admin: 08/18/20 10:04 Dose: 15 ml Documented by: Thiamine HCl (Vitamin B1 Injection -) 100 mg IVPB DAILY [facility] Last Admin: 08/18/20 10:03 Dose: 100 mg Documented by: - Objective Vital Signs: Vital Signs Temperature 98.6 F 08/18/20 06:00 Pulse Rate 90 08/18/20 08:05 Respiratory Rate 19 08/18/20 11:37 Blood Pressure 96/80 08/18/20 08:00 O2 Sat by Pulse Oximetry (%) 99 08/18/20 11:37 Labs: CBC, BMP 08/18/20 06:44 08/18/20 06:44 INR, PTT INR 1.37 (0.83-1.09) H 08/18/20 06:44 Fibrinogen 344.0 mg/dL (238-498) 07/21/20 06:00
[2020-08-18] MEDS: HYDROmorphone HCl 2 MG/ML VIAL IVPUSH PRN ×2 (14:19→21:25)
[2020-08-18] MEDS: LIDOCAINE HCL 5% TOP OINTMENT 50 GM TUBE TP SCH (18:58)
--- NOTE | 2020-08-18 22:24 | PN ---
Progress Note, Physician - Current Medication List Current Medications: Active Medications Amino Acids (Prosource No Carb Liquid Pkt) 30 ml PO DAILY [facility] Last Admin: 08/18/20 10:03 Dose: 30 ml Documented by: Ascorbic Acid (Vitamin C -) 500 mg PO DAILY [facility] Last Admin: 08/18/20 10:05 Dose: 500 mg Documented by: Banana Based Medical Food (Banatrol Plus Powder Packet) 1 packet PO TID [facility] Last Admin: 08/18/20 21:29 Dose: 1 packet Documented by: Collagenase (Santyl -) 1 applic TP DAILY [facility]; Protocol Last Admin: 08/18/20 10:08 Dose: 1 applic Documented by: Dextrose (D50w (Vial) -) 12.5 gm IVPUSH PRN PRN PRN Reason: HYPOGLYCEMIA Last Admin: 08/14/20 05:29 Dose: 12.5 gm Documented by: Diazepam (Valium -) 2 mg PO 2100 PRN PRN Reason: INSOMNIA Last Admin: 08/16/20 21:16 Dose: 2 mg Documented by: Famotidine (Pepcid) 20 mg PEG DAILY [facility] Last Admin: 08/18/20 10:03 Dose: 20 mg Documented by: Folic Acid (Folic Acid -) 1 mg NGT DAILY [facility] Last Admin: 08/18/20 10:05 Dose: 1 mg Documented by: Heparin Sodium (Porcine) (Heparin -) 5,000 unit SQ BID [facility] Last Admin: 08/18/20 21:29 Dose: 5,000 unit Documented by: Hydromorphone HCl (Dilaudid Vial -) 1 mg IVPUSH Q3H PRN PRN Reason: PAIN LEVEL 4 - 6 Last Admin: 08/18/20 21:25 Dose: 1 mg Documented by: Piperacillin Sod/Tazobactam (Sod 3.375 gm/ Dextrose) 50 mls @ 100 mls/hr IVPB Q8H-IV [facility]; Protocol Last Admin: 08/18/20 17:44 Dose: 100 mls/hr Documented by: Lactobacillus Acidophilus (Bacid -) 1 tab PEG DAILY [facility] Last Admin: 08/18/20 10:05 Dose: 1 tab Documented by: Lidocaine (Lidoderm Patch -) 1 patch TP DAILY [facility] Last Admin: 08/18/20 10:00 Dose: 1 patch Documented by: Lidocaine HCl (Xylocaine 5% Top. Ointment) 1 applic TP DAILY [facility] Last Admin: 08/18/20 18:58 Dose: Not Given Documented by: Methadone HCl (Dolophine -) 5 mg PO BID [facility] Last Admin: 08/18/20 21:35 Dose: 5 mg Documented by: Miscellaneous (Lidoderm Patch Removal) 1 each MC DAILY@2200 [facility] Last Admin: 08/17/20 07:41 Dose: Not Given Documented by: Morphine Sulfate (Morphine Sulfate) 1 mg IVPUSH Q6H PRN PRN Reason: PAIN LEVEL 1-3 Last Admin: 08/17/20 05:41 Dose: 1 mg Documented by: Multi-Ingredient Ointment (Zinc Oxide) 1 applic TP DAILY [facility] Last Admin: 08/18/20 10:08 Dose: 1 applic Documented by: Multivitamins/Minerals (Certavite-Antioxidant Liquid) 15 ml NGT DAILY [facility] Last Admin: 08/18/20 10:04 Dose: 15 ml Documented by: Thiamine HCl (Vitamin B1 Injection -) 100 mg IVPB DAILY [facility] Last Admin: 08/18/20 10:03 Dose: 100 mg Documented by: - Objective Vital Signs: Vital Signs Temperature 98.7 F 08/18/20 20:00 Pulse Rate 108 H 08/18/20 20:20 Respiratory Rate 24 H 08/18/20 20:20 Blood Pressure 110/85 08/18/20 20:00 O2 Sat by Pulse Oximetry (%) 100 08/18/20 20:20 Labs: CBC, BMP 08/18/20 06:44 08/18/20 06:44 INR, PTT INR 1.37 (0.83-1.09) H 08/18/20 06:44 Fibrinogen 344.0 mg/dL (238-498) 07/21/20 06:00 Problem List - Problems (1) Respiratory failure Code(s): J96.90 - RESPIRATORY FAILURE, UNSP, UNSP W HYPOXIA OR HYPERCAPNIA (2) Sepsis Code(s): A41.9 - SEPSIS, UNSPECIFIED ORGANISM Qualifiers: Sepsis type: sepsis due to unspecified organism Sepsis acute organ dysfunction status: unspecified Qualified Code(s): A41.9 - Sepsis, unspecified organism (3) Anemia Code(s): D64.9 - ANEMIA, UNSPECIFIED (4) At risk for electrolyte imbalance Code(s): Z91.89 - OTH PERSONAL RISK FACTORS, NOT ELSEWHERE CLASSIFIED (5) Liver cirrhosis, alcoholic Code(s): K70.30 - ALCOHOLIC CIRRHOSIS OF LIVER WITHOUT ASCITES (6) Hypoalbuminemia Code(s): E88.09 - OTH DISORDERS OF PLASMA-PROTEIN METABOLISM, NEC (7) Substance abuse Code(s): F19.10 - OTHER PSYCHOACTIVE SUBSTANCE ABUSE, UNCOMPLICATED (8) Cachexia Code(s): R64 - CACHEXIA (9) Severe malnutrition Code(s): E43 - UNSPECIFIED SEVERE PROTEIN-CALORIE MALNUTRITION (10) Sacral ulcer Code(s): L98.429 - NON-PRESSURE CHRONIC ULCER OF BACK WITH UNSPECIFIED SEVERITY (11) SBO (small bowel obstruction) Code(s): K56.609 - UNSP INTESTNL OBST, UNSP TO PARTIAL VERSUS COMPLETE OBST
[2020-08-18] MEDS: LIDOCAINE PATCH REMOVAL MC SCH (22:25)
[2020-08-19] MEDS: PIPERACILLIN/TAZOB 3.375 GM 3.375 GM in DEXTROSE 5%-WATER - 50 ML IVPB SCH ×2 (02:00→09:08)
[2020-08-19] MEDS: HYDROmorphone HCl 2 MG/ML VIAL IVPUSH PRN ×4 (02:00→21:01)
[2020-08-19] MEDS: BANATROL PLUS POWDER PACKET PO SCH ×3 (05:00→23:45)
[2020-08-19 07:30] LABS: HEMATOCRIT 30.9 % (32.4-45.2); HEMOGLOBIN 10.7 GM/dL (10.7-15.3); MCH 31.6 pg (25.7-33.7); MCHC 34.5 g/dl (32.0-36.0); MEAN CELL VOLUME 91.5 fl (80-96); MEAN PLT VOLUME 7.9 fl (7.5-11.1); PLATELET COUNT 361 K/MM3 (134-434); RBC 3.38 M/mm3 (3.60-5.2); RDW 16.2 % (11.6-15.6); WHITE BLOOD COUNT 6.9 K/mm3 (4.0-10.0)
[2020-08-19 07:46] LABS: CHLORIDE 102 mmol/L (98-107); POTASSIUM 4.3 mmol/L (3.5-5.1); SODIUM 135 mmol/L (136-145)
[2020-08-19 07:47] LABS: ANION GAP 6 MMOL/L (8-16); CALCIUM 7.3 mg/dL (8.5-10.1); CO2 27 mmol/L (21-32)
[2020-08-19 07:48] LABS: BLOOD UREA NITROGEN 11.7 mg/dL (7-18); GLUCOSE,RANDOM 53 mg/dL (74-106); MAGNESIUM 1.5 mg/dL (1.8-2.4)
--- NOTE | 2020-08-19 07:49 | PN ---
Progress Note (short form) - Note Progress Note: Pulm/CCM Patient seen and examined in the ICU. -awake, trach to vented -no events overnight, afebrile -awaiting placement to LTACH Vital Signs Period Temp Pulse Resp BP Sys/Campbell Pulse Ox Last 24 Hr 98.6 F-98.7 F 85-120 15-24 96-116/72-89 95-100 Intake & Output 08/16/20 08/17/20 08/18/20 08/19/20 23:59 23:59 23:59 23:59 Intake Total 3580 934 2432 590 Output Total 955 720 950 600 Balance 2625 214 1482 -10 Weight 33.112 kg 33.112 kg 33.15 kg 33.15 kg Active Medications Amino Acids (Prosource No Carb Liquid Pkt) 30 ml PO DAILY [facility] Last Admin: 08/18/20 10:03 Dose: 30 ml Documented by: Ascorbic Acid (Vitamin C -) 500 mg PO DAILY [facility] Last Admin: 08/18/20 10:05 Dose: 500 mg Documented by: Banana Based Medical Food (Banatrol Plus Powder Packet) 1 packet PO TID [facility] Last Admin: 08/19/20 05:00 Dose: 1 packet Documented by: Collagenase (Santyl -) 1 applic TP DAILY [facility]; Protocol Last Admin: 08/18/20 10:08 Dose: 1 applic Documented by: Dextrose (D50w (Vial) -) 12.5 gm IVPUSH PRN PRN PRN Reason: HYPOGLYCEMIA Last Admin: 08/14/20 05:29 Dose: 12.5 gm Documented by: Diazepam (Valium -) 2 mg PO 2100 PRN PRN Reason: INSOMNIA Last Admin: 08/16/20 21:16 Dose: 2 mg Documented by: Famotidine (Pepcid) 20 mg PEG DAILY [facility] Last Admin: 08/18/20 10:03 Dose: 20 mg Documented by: Folic Acid (Folic Acid -) 1 mg NGT DAILY [facility] Last Admin: 08/18/20 10:05 Dose: 1 mg Documented by: Heparin Sodium (Porcine) (Heparin -) 5,000 unit SQ BID [facility] Last Admin: 08/18/20 21:29 Dose: 5,000 unit Documented by: Hydromorphone HCl (Dilaudid Vial -) 1 mg IVPUSH Q3H PRN PRN Reason: PAIN LEVEL 4 - 6 Last Admin: 08/19/20 06:55 Dose: 1 mg Documented by: Piperacillin Sod/Tazobactam (Sod 3.375 gm/ Dextrose) 50 mls @ 100 mls/hr IVPB Q8H-IV [facility]; Protocol Last Admin: 08/19/20 02:00 Dose: 100 mls/hr Documented by: Lactobacillus Acidophilus (Bacid -) 1 tab PEG DAILY [facility] Last Admin: 08/18/20 10:05 Dose: 1 tab Documented by: Lidocaine (Lidoderm Patch -) 1 patch TP DAILY [facility] Last Admin: 08/18/20 10:00 Dose: 1 patch Documented by: Lidocaine HCl (Xylocaine 5% Top. Ointment) 1 applic TP DAILY [facility] Last Admin: 08/18/20 18:58 Dose: Not Given Documented by: Methadone HCl (Dolophine -) 5 mg PO BID [facility] Last Admin: 08/18/20 21:35 Dose: 5 mg Documented by: Miscellaneous (Lidoderm Patch Removal) 1 each MC DAILY@2200 [facility] Last Admin: 08/18/20 22:25 Dose: 1 each Documented by: Morphine Sulfate (Morphine Sulfate) 1 mg IVPUSH Q6H PRN PRN Reason: PAIN LEVEL 1-3 Last Admin: 08/17/20 05:41 Dose: 1 mg Documented by: Multi-Ingredient Ointment (Zinc Oxide) 1 applic TP DAILY [facility] Last Admin: 08/18/20 10:08 Dose: 1 applic Documented by: Multivitamins/Minerals (Certavite-Antioxidant Liquid) 15 ml NGT DAILY [facility] Last Admin: 08/18/20 10:04 Dose: 15 ml Documented by: Thiamine HCl (Vitamin B1 Injection -) 100 mg IVPB DAILY [facility] Last Admin: 08/18/20 10:03 Dose: 100 mg Documented by: Gen: vented, cachectic, bitemporal wasting Heart: RRR Lung: scattered rhonchi Abd: soft, nontender, +ascites, drain in place Ext: no edema Neuro: follows simple commands CBC, BMP 08/19/20 06:20 08/19/20 06:20 ASSESSMENT AND PLAN: Acute Hypoxic Respiratory Failure s/p Tracheostomy Pneumonia likely Aspiration UTI Sepsis Hyponatremia Small Bowel Obstruction Ascites s/p Peritoneal drain placement Alcohol/Heroin Abuse Anemia/Thrombocytopenia Failure to Thrive Severe Protein Calorie Malnutrition Refeeding Syndrome - continue antibiotics per ID - f/u cultures - maintain on MV for now - pain control:standing methadone and prns - monitor urine output, creatinine - Monitor and replete lytes, keep Mg>2, K>4 - titrate FiO2 to keep SpO2 >90% - Continue enteral feeds - DVT/GI prophylaxis - Wound care - for LTACH placement - Can downgrade, or transfer direct to LTACH once avail Neda [facility]av[facility] [id number]
[2020-08-19 07:51] LABS: CREATININE < 0.2 mg/dL (0.55-1.3); PHOSPHOROUS 3.7 mg/dL (2.5-4.9)
[2020-08-19] MEDS ORDERED: MAGNESIUM SULFATE IN WATER 2 GM/50 ML IVPB IVPB ONE (07:56)
[2020-08-19] MEDS ORDERED: PIPERACILLIN/TAZOBACTAM 3.375 GM VIAL IVPB ONE (08:53)
[2020-08-19] MEDS ORDERED: PT OWN MED DRAWER 7, Y5N ONE (08:53)
[2020-08-19] MEDS ORDERED: DEXTROSE 5%-WATER - 50 ML IVPB ONE (08:54)
[2020-08-19] MEDS: AMINO ACIDS/PROTEIN HYDROLYS 30 ML LIQUID.PKT PO SCH (09:07)
[2020-08-19] MEDS: LIDOCAINE 5% TOPICAL PATCH TP SCH (09:07)
[2020-08-19] MEDS: LACTOBACILLUS ACIDOPHILUS 1 TABLET PEG SCH (09:09)
[2020-08-19] MEDS: ZINC OXIDE 20% TOPICAL OINTMENT 30 GM TUBE TP SCH (09:09)
[2020-08-19] MEDS: ASCORBIC ACID 500 MG TABLET (FP) PO SCH (09:09)
[2020-08-19] MEDS: LIDOCAINE HCL 5% TOP OINTMENT 50 GM TUBE TP SCH (09:09)
[2020-08-19] MEDS: HEPARIN NA (PORCINE) 5,000 UNITS/ML 1ML VIAL SQ SCH ×2 (09:10→23:45)
[2020-08-19] MEDS: FOLIC ACID 1 MG TABLET (FP) NGT SCH (09:10)
[2020-08-19] MEDS: METHADONE HCL 5 MG TABLET PO SCH ×2 (09:10→23:45)
[2020-08-19] MEDS: MULTIVIT-MINERALS ORAL LIQUID NGT SCH (09:10)
[2020-08-19] MEDS: FAMOTIDINE 40 MG/5 ML ORAL SUSPENSION PEG SCH (09:11)
[2020-08-19] MEDS: THIAMINE HCL 200 MG/2 ML VIAL IVPB SCH (09:12)
[2020-08-19] MEDS: COLLAGENASE CLOSTRIDIUM HIST. 30 GRAMS TUBE TP SCH (09:12)
--- NOTE | 2020-08-19 12:09 | PN ---
Progress Note, Physician History of Present Illness: failure to thrive on special bed now awake and alert - Current Medication List Current Medications: Active Medications Amino Acids (Prosource No Carb Liquid Pkt) 30 ml PO DAILY [facility] Last Admin: 08/19/20 09:07 Dose: 30 ml Documented by: Ascorbic Acid (Vitamin C -) 500 mg PO DAILY [facility] Last Admin: 08/19/20 09:09 Dose: 500 mg Documented by: Banana Based Medical Food (Banatrol Plus Powder Packet) 1 packet PO TID [facility] Last Admin: 08/19/20 05:00 Dose: 1 packet Documented by: Collagenase (Santyl -) 1 applic TP DAILY [facility]; Protocol Last Admin: 08/19/20 09:12 Dose: 1 applic Documented by: Dextrose (D50w (Vial) -) 12.5 gm IVPUSH PRN PRN PRN Reason: HYPOGLYCEMIA Last Admin: 08/14/20 05:29 Dose: 12.5 gm Documented by: Diazepam (Valium -) 2 mg PO 2100 PRN PRN Reason: INSOMNIA Last Admin: 08/16/20 21:16 Dose: 2 mg Documented by: Famotidine (Pepcid) 20 mg PEG DAILY [facility] Last Admin: 08/19/20 09:11 Dose: 20 mg Documented by: Folic Acid (Folic Acid -) 1 mg NGT DAILY [facility] Last Admin: 08/19/20 09:10 Dose: 1 mg Documented by: Heparin Sodium (Porcine) (Heparin -) 5,000 unit SQ BID [facility] Last Admin: 08/19/20 09:10 Dose: 5,000 unit Documented by: Hydromorphone HCl (Dilaudid Vial -) 1 mg IVPUSH Q3H PRN PRN Reason: PAIN LEVEL 4 - 6 Last Admin: 08/19/20 11:24 Dose: 1 mg Documented by: Lactobacillus Acidophilus (Bacid -) 1 tab PEG DAILY [facility] Last Admin: 08/19/20 09:09 Dose: 1 tab Documented by: Lidocaine (Lidoderm Patch -) 1 patch TP DAILY [facility] Last Admin: 08/19/20 09:07 Dose: 1 patch Documented by: Lidocaine HCl (Xylocaine 5% Top. Ointment) 1 applic TP DAILY [facility] Last Admin: 08/19/20 09:09 Dose: 1 applic Documented by: Methadone HCl (Dolophine -) 5 mg PO BID [facility] Last Admin: 08/19/20 09:10 Dose: 5 mg Documented by: Miscellaneous (Lidoderm Patch Removal) 1 each MC DAILY@2200 [facility] Last Admin: 08/18/20 22:25 Dose: 1 each Documented by: Morphine Sulfate (Morphine Sulfate) 1 mg IVPUSH Q6H PRN PRN Reason: PAIN LEVEL 1-3 Last Admin: 08/17/20 05:41 Dose: 1 mg Documented by: Multi-Ingredient Ointment (Zinc Oxide) 1 applic TP DAILY [facility] Last Admin: 08/19/20 09:09 Dose: 1 applic Documented by: Multivitamins/Minerals (Certavite-Antioxidant Liquid) 15 ml NGT DAILY [facility] Last Admin: 08/19/20 09:10 Dose: 15 ml Documented by: Thiamine HCl (Vitamin B1 Injection -) 100 mg IVPB DAILY [facility] Last Admin: 08/19/20 09:12 Dose: 100 mg Documented by: - Objective Vital Signs: Vital Signs Temperature 98.7 F 08/18/20 20:00 Pulse Rate 82 08/19/20 08:15 Respiratory Rate 14 08/19/20 11:49 Blood Pressure 107/79 08/19/20 06:00 O2 Sat by Pulse Oximetry (%) 100 08/19/20 08:15 Constitutional: Yes: No Distress, Calm Cardiovascular: Yes: S1, S2 Respiratory: Yes: Regular, Poor Air Entry Gastrointestinal: Yes: Normal Bowel Sounds, Soft Musculoskeletal: Yes: WNL Extremities: Yes: WNL Neurological: Yes: Alert, Oriented Psychiatric: Yes: Alert, Oriented Labs: CBC, BMP 08/19/20 06:20 08/19/20 06:20 INR, PTT INR 1.37 (0.83-1.09) H 08/18/20 06:44 Fibrinogen 344.0 mg/dL (238-498) 07/21/20 06:00 Assessment/Plan Pneumonia likely Aspiration UTI Sepsis Hyponatremia SBO resolving Alcohol/Heroin Abuse Anemia Failure to Thrive Severe Protein Calorie Malnutrition uti sacral wounds plan ct abx will change abx to ceftriaxone await for identifcation of organism
--- NOTE | 2020-08-19 23:16 | PN ---
Progress Note, Physician History of Present Illness: Spoke to pt's mother and answered her questions - Current Medication List Current Medications: Active Medications Amino Acids (Prosource No Carb Liquid Pkt) 30 ml PO DAILY [facility] Last Admin: 08/19/20 09:07 Dose: 30 ml Documented by: Ascorbic Acid (Vitamin C -) 500 mg PO DAILY [facility] Last Admin: 08/19/20 09:09 Dose: 500 mg Documented by: Banana Based Medical Food (Banatrol Plus Powder Packet) 1 packet PO TID [facility] Last Admin: 08/19/20 13:52 Dose: 1 packet Documented by: Collagenase (Santyl -) 1 applic TP DAILY [facility]; Protocol Last Admin: 08/19/20 09:12 Dose: 1 applic Documented by: Dextrose (D50w (Vial) -) 12.5 gm IVPUSH PRN PRN PRN Reason: HYPOGLYCEMIA Last Admin: 08/14/20 05:29 Dose: 12.5 gm Documented by: Diazepam (Valium -) 2 mg PO 2100 PRN PRN Reason: INSOMNIA Last Admin: 08/16/20 21:16 Dose: 2 mg Documented by: Famotidine (Pepcid) 20 mg PEG DAILY [facility] Last Admin: 08/19/20 09:11 Dose: 20 mg Documented by: Folic Acid (Folic Acid -) 1 mg NGT DAILY [facility] Last Admin: 08/19/20 09:10 Dose: 1 mg Documented by: Heparin Sodium (Porcine) (Heparin -) 5,000 unit SQ BID [facility] Last Admin: 08/19/20 09:10 Dose: 5,000 unit Documented by: Hydromorphone HCl (Dilaudid Vial -) 1 mg IVPUSH Q3H PRN PRN Reason: PAIN LEVEL 4 - 6 Last Admin: 08/19/20 21:01 Dose: 1 mg Documented by: Lactobacillus Acidophilus (Bacid -) 1 tab PEG DAILY [facility] Last Admin: 08/19/20 09:09 Dose: 1 tab Documented by: Lidocaine (Lidoderm Patch -) 1 patch TP DAILY [facility] Last Admin: 08/19/20 09:07 Dose: 1 patch Documented by: Lidocaine HCl (Xylocaine 5% Top. Ointment) 1 applic TP DAILY [facility] Last Admin: 08/19/20 09:09 Dose: 1 applic Documented by: Methadone HCl (Dolophine -) 5 mg PO BID [facility] Last Admin: 08/19/20 09:10 Dose: 5 mg Documented by: Miscellaneous (Lidoderm Patch Removal) 1 each MC DAILY@2200 [facility] Last Admin: 08/18/20 22:25 Dose: 1 each Documented by: Morphine Sulfate (Morphine Sulfate) 1 mg IVPUSH Q6H PRN PRN Reason: PAIN LEVEL 1-3 Last Admin: 08/17/20 05:41 Dose: 1 mg Documented by: Multi-Ingredient Ointment (Zinc Oxide) 1 applic TP DAILY [facility] Last Admin: 08/19/20 09:09 Dose: 1 applic Documented by: Multivitamins/Minerals (Certavite-Antioxidant Liquid) 15 ml NGT DAILY [facility] Last Admin: 08/19/20 09:10 Dose: 15 ml Documented by: Thiamine HCl (Vitamin B1 Injection -) 100 mg IVPB DAILY [facility] Last Admin: 08/19/20 09:12 Dose: 100 mg Documented by: - Objective Vital Signs: Vital Signs Temperature 98.2 F 08/19/20 20:00 Pulse Rate 100 H 08/19/20 20:00 Respiratory Rate 21 H 08/19/20 20:30 Blood Pressure 109/82 08/19/20 20:00 O2 Sat by Pulse Oximetry (%) 100 08/19/20 20:30 Cardiovascular: Yes: Tachycardia Respiratory: Yes: Diminished Gastrointestinal: Yes: WNL, Normal Bowel Sounds, Soft, Other ((+) PEG) Labs: CBC, BMP 08/19/20 06:20 08/19/20 06:20 INR, PTT INR 1.37 (0.83-1.09) H 08/18/20 06:44 Fibrinogen 344.0 mg/dL (238-498) 07/21/20 06:00 Problem List - Problems (1) Respiratory failure Assessment/Plan: Acute on chronic respiratory failure Multifactorial RLL infiltrates/Asp pneumonia S/P tracheostomy Ct scan chest showed cavitary lesions S/P Pneumothorax EITAN S/P Chest tube Code(s): J96.90 - RESPIRATORY FAILURE, UNSP, UNSP W HYPOXIA OR HYPERCAPNIA (2) Sepsis Assessment/Plan: Pt is off antibxs Follow WBC Lactic acidosis Cont IVF Code(s): A41.9 - SEPSIS, UNSPECIFIED ORGANISM Qualifiers: Sepsis type: sepsis due to unspecified organism Sepsis acute organ dysfunction status: unspecified Qualified Code(s): A41.9 - Sepsis, unspecified organism (3) Anemia Code(s): D64.9 - ANEMIA, UNSPECIFIED (4) At risk for electrolyte imbalance Code(s): Z91.89 - OT PERSONAL RISK FACTORS, NOT ELSEWHERE CLASSIFIED (5) Liver cirrhosis, alcoholic Code(s): K70.30 - ALCOHOLIC CIRRHOSIS OF LIVER WITHOUT ASCITES (6) Hypoalbuminemia Code(s): E88.09 - OT DISORDERS OF PLASMA-PROTEIN METABOLISM, NEC (7) Substance abuse Code(s): F19.10 - OTHER PSYCHOACTIVE SUBSTANCE ABUSE, UNCOMPLICATED (8) Cachexia Code(s): R64 - CACHEXIA (9) Severe malnutrition Code(s): E43 - UNSPECIFIED SEVERE PROTEIN-CALORIE MALNUTRITION (10) Sacral ulcer Code(s): L98.429 - NON-PRESSURE CHRONIC ULCER OF BACK WITH UNSPECIFIED SEVERITY (11) SBO (small bowel obstruction) Code(s): K56.609 - UNSP INTESTNL OBST, UNSP TO PARTIAL VERSUS COMPLETE OBST
[2020-08-19] MEDS: LIDOCAINE PATCH REMOVAL MC SCH (23:45)
[2020-08-20] MEDS: HYDROmorphone HCl 2 MG/ML VIAL IVPUSH PRN ×6 (01:27→22:46)
[2020-08-20] MEDS: BANATROL PLUS POWDER PACKET PO SCH ×3 (05:37→21:13)
[2020-08-20 07:09] LABS: HEMOGLOBIN 11.1 GM/dL (10.7-15.3); MCH 30.6 pg (25.7-33.7); MCHC 33.5 g/dl (32.0-36.0); MEAN CELL VOLUME 91.4 fl (80-96); PLATELET COUNT 393 K/MM3 (134-434); RBC 3.61 M/mm3 (3.60-5.2); RDW 16.1 % (11.6-15.6); WHITE BLOOD COUNT 8.3 K/mm3 (4.0-10.0)
[2020-08-20 07:40] LABS: POTASSIUM 4.7 mmol/L (3.5-5.1)
[2020-08-20 07:46] LABS: BLOOD UREA NITROGEN 12.1 mg/dL (7-18); CALCIUM 7.5 mg/dL (8.5-10.1)
[2020-08-20 07:49] LABS: CREATININE 0.2 mg/dL (0.55-1.3)
[2020-08-20 07:50] LABS: PHOSPHOROUS 3.1 mg/dL (2.5-4.9)
[2020-08-20] MEDS ORDERED: cefTRIAXone SODIUM 1 GM VIAL ONE (09:52)
[2020-08-20] MEDS ORDERED: DEXTROSE 5%-WATER - 50 ML IVPB ONE (09:52)
[2020-08-20] MEDS ORDERED: PT OWN MED DRAWER 7, Y5N ONE ×2 (09:52→14:53)
[2020-08-20] MEDS: AMINO ACIDS/PROTEIN HYDROLYS 30 ML LIQUID.PKT PO SCH (09:59)
[2020-08-20] MEDS ORDERED: CEFTRIAXONE 1 GM in DEXTROSE 5%-WATER - 50 ML IVPB SCH (10:00)
[2020-08-20] MEDS: MULTIVIT-MINERALS ORAL LIQUID NGT SCH (10:00)
[2020-08-20] MEDS: FAMOTIDINE 40 MG/5 ML ORAL SUSPENSION PEG SCH (10:00)
[2020-08-20] MEDS: METHADONE HCL 5 MG TABLET PO SCH (10:01)
[2020-08-20] MEDS: ASCORBIC ACID 500 MG TABLET (FP) PO SCH (10:01)
[2020-08-20] MEDS: FOLIC ACID 1 MG TABLET (FP) NGT SCH (10:01)
[2020-08-20] MEDS: LACTOBACILLUS ACIDOPHILUS 1 TABLET PEG SCH (10:02)
[2020-08-20] MEDS: HEPARIN NA (PORCINE) 5,000 UNITS/ML 1ML VIAL SQ SCH ×2 (10:03→21:13)
[2020-08-20] MEDS: LIDOCAINE 5% TOPICAL PATCH TP SCH (10:03)
[2020-08-20] MEDS: ZINC OXIDE 20% TOPICAL OINTMENT 30 GM TUBE TP SCH (10:04)
[2020-08-20] MEDS: LIDOCAINE HCL 5% TOP OINTMENT 50 GM TUBE TP SCH (10:04)
[2020-08-20] MEDS: THIAMINE HCL 200 MG/2 ML VIAL IVPB SCH (10:04)
[2020-08-20] MEDS: COLLAGENASE CLOSTRIDIUM HIST. 30 GRAMS TUBE TP SCH (10:04)
--- NOTE | 2020-08-20 12:08 | PN ---
Progress Note, Physician History of Present Illness: stable no new issues sputum now showing esbl - Current Medication List Current Medications: Active Medications Amino Acids (Prosource No Carb Liquid Pkt) 30 ml PO DAILY [facility] Last Admin: 08/20/20 09:59 Dose: 30 ml Documented by: Ascorbic Acid (Vitamin C -) 500 mg PO DAILY [facility] Last Admin: 08/20/20 10:01 Dose: 500 mg Documented by: Banana Based Medical Food (Banatrol Plus Powder Packet) 1 packet PO TID [facility] Last Admin: 08/20/20 05:37 Dose: 1 packet Documented by: Collagenase (Santyl -) 1 applic TP DAILY [facility]; Protocol Last Admin: 08/20/20 10:04 Dose: 1 applic Documented by: Dextrose (D50w (Vial) -) 12.5 gm IVPUSH PRN PRN PRN Reason: HYPOGLYCEMIA Last Admin: 08/14/20 05:29 Dose: 12.5 gm Documented by: Diazepam (Valium -) 2 mg PO 2100 PRN PRN Reason: INSOMNIA Last Admin: 08/16/20 21:16 Dose: 2 mg Documented by: Famotidine (Pepcid) 20 mg PEG DAILY [facility] Last Admin: 08/20/20 10:00 Dose: 20 mg Documented by: Folic Acid (Folic Acid -) 1 mg NGT DAILY [facility] Last Admin: 08/20/20 10:01 Dose: 1 mg Documented by: Heparin Sodium (Porcine) (Heparin -) 5,000 unit SQ BID [facility] Last Admin: 08/20/20 10:03 Dose: 5,000 unit Documented by: Hydromorphone HCl (Dilaudid Vial -) 1 mg IVPUSH Q3H PRN PRN Reason: PAIN LEVEL 4 - 6 Last Admin: 08/20/20 10:02 Dose: 1 mg Documented by: Ertapenem 1 gm/ Sodium (Chloride) 50 mls @ 100 mls/hr IVPB DAILY [facility] Lactobacillus Acidophilus (Bacid -) 1 tab PEG DAILY [facility] Last Admin: 08/20/20 10:02 Dose: 1 tab Documented by: Lidocaine (Lidoderm Patch -) 1 patch TP DAILY [facility] Last Admin: 08/20/20 10:03 Dose: 1 patch Documented by: Lidocaine HCl (Xylocaine 5% Top. Ointment) 1 applic TP DAILY [facility] Last Admin: 08/20/20 10:04 Dose: 1 applic Documented by: Methadone HCl (Dolophine Injection -) 5 mg IVPUSH BID [facility] Miscellaneous (Lidoderm Patch Removal) 1 each MC DAILY@2200 [facility] Last Admin: 08/19/20 23:45 Dose: 1 each Documented by: Morphine Sulfate (Morphine Sulfate) 1 mg IVPUSH Q6H PRN PRN Reason: PAIN LEVEL 1-3 Last Admin: 08/17/20 05:41 Dose: 1 mg Documented by: Multi-Ingredient Ointment (Zinc Oxide) 1 applic TP DAILY [facility] Last Admin: 08/20/20 10:04 Dose: 1 applic Documented by: Multivitamins/Minerals (Certavite-Antioxidant Liquid) 15 ml NGT DAILY [facility] Last Admin: 08/20/20 10:00 Dose: 15 ml Documented by: Thiamine HCl (Vitamin B1 Injection -) 100 mg IVPB DAILY [facility] Last Admin: 08/20/20 10:04 Dose: 100 mg Documented by: - Objective Vital Signs: Vital Signs Temperature 97.8 F 08/20/20 10:00 Pulse Rate 109 H 08/20/20 10:00 Respiratory Rate 17 08/20/20 10:00 Blood Pressure 98/74 08/20/20 10:00 O2 Sat by Pulse Oximetry (%) 98 08/20/20 10:00 Constitutional: Yes: No Distress, Calm, Other (failue to thrive) Cardiovascular: Yes: S1, S2 Respiratory: Yes: Regular, CTA Bilaterally Gastrointestinal: Yes: Normal Bowel Sounds, Soft Musculoskeletal: Yes: WNL Extremities: Yes: WNL Neurological: Yes: Alert Psychiatric: Yes: Alert Labs: CBC, BMP 08/20/20 05:50 08/20/20 05:50 INR, PTT INR 1.37 (0.83-1.09) H 08/18/20 06:44 Fibrinogen 344.0 mg/dL (238-498) 07/21/20 06:00 Assessment/Plan Pneumonia likely Aspiration UTI Sepsis Hyponatremia SBO resolving Alcohol/Heroin Abuse Anemia Failure to Thrive Severe Protein Calorie Malnutrition uti sacral wounds plan ct abx change abx to ertapenam
--- NOTE | 2020-08-20 12:43 | PN ---
Physical Exam: SUBJECTIVE: Patient seen and examined at bedside. Patient reports that she is still in pain and that the pain medication is not really helping. The patient also reports that the Methadone is not working well enough. Methadone was changed to IV to improve it's efficacy, but the pharmacy called and said that the hospital does not carry IV Methadone, only PO. Methadone was then changed back to PO. OBJECTIVE: Vital Signs Period Temp Pulse Resp BP Sys/Campbell Pulse Ox Last 24 Hr 97.8 F-98.2 F 79-109 14-26 98-123/70-82 94-100 GENERAL: The patient is awake, alert, and fully oriented, in no acute distress. Nonverbal due to trach in neck, but communicates with writing. HEAD: Normal with no signs of trauma. Temporal wasting. EYES: PERRL, extraocular movements intact. No ptosis. ENT: Ears normal, nares patent, oropharynx clear without exudates, moist mucous membranes. Trach in place in neck. NECK: Trachea midline, full range of motion, supple. LUNGS: Coarse breath sounds bilaterally. HEART: Regular rate and rhythm, S1, S2 without murmur, rub or gallop. ABDOMEN: Soft, nontender, nondistended, normoactive bowel sounds, no guarding, no rebound, no masses. EXTREMITIES: 2+ pulses, warm, well-perfused, no edema. NEUROLOGICAL: Cranial nerves II through XII grossly intact. Normal speech, gait not observed. PSYCH: Normal mood, normal affect. SKIN: Warm, dry, normal turgor. Very low BMI. Stage 4 Sacral Ulcer. Laboratory Results - last 24 hr 08/19/20 08/20/20 08/20/20 18:03 05:43 05:50 WBC 8.3 RBC 3.61 Hgb 11.1 Hct 33.0 MCV 91.4 MCH 30.6 MCHC 33.5 RDW 16.1 H Plt Count 393 MPV 8.0 Sodium Potassium Chloride Carbon Dioxide Anion Gap BUN Creatinine Est GFR (CKD-EPI)AfAm Est GFR (CKD-EPI)NonAf POC Glucometer 116 161 Random Glucose Calcium Phosphorus Magnesium 08/20/20 08/20/20 05:50 11:46 WBC RBC Hgb Hct MCV MCH MCHC RDW Plt Count MPV Sodium 134 L Potassium 4.7 Chloride 99 Carbon Dioxide 28 Anion Gap 7 L BUN 12.1 Creatinine 0.2 L Est GFR (CKD-EPI)AfAm 196.46 Est GFR (CKD-EPI)NonAf 169.51 POC Glucometer 113 Random Glucose 126 H Calcium 7.5 L Phosphorus 3.1 Magnesium 2.0 Active Medications Generic Name Dose Route Start Last Admin Trade Name Freq PRN Reason Stop Dose Admin Amino Acids 30 ml 08/08/20 12:45 08/20/20 09:59 Prosource No Carb Liquid Pkt PO 30 ml DAILY [facility] Administration Ascorbic Acid 500 mg 07/27/20 13:00 08/20/20 10:01 Vitamin C - PO 500 mg DAILY [facility] Administration Banana Based Medical Food 1 packet 08/13/20 14:00 08/20/20 05:37 Banatrol Plus Powder Packet PO 1 packet TID [facility] Administration Collagenase 1 applic 08/05/20 19:30 08/20/20 10:04 Santyl - TP 1 applic DAILY [facility] Administration Protocol Dextrose 12.5 gm 07/08/20 07:08 08/14/20 05:29 D50w (Vial) - IVPUSH 12.5 gm PRN PRN Administration HYPOGLYCEMIA Diazepam 2 mg 08/10/20 10:41 08/16/20 21:16 Valium - PO 2 mg 2100 PRN Administration INSOMNIA Famotidine 20 mg 08/04/20 10:45 08/20/20 10:00 Pepcid PEG 20 mg DAILY [facility] Administration Folic Acid 1 mg 07/06/20 10:00 08/20/20 10:01 Folic Acid - NGT 1 mg DAILY [facility] Administration Heparin Sodium (Porcine) 5,000 unit 07/20/20 10:00 08/20/20 10:03 Heparin - SQ 5,000 unit BID [facility] Administration Hydromorphone HCl 1 mg 07/26/20 13:39 08/20/20 10:02 Dilaudid Vial - IVPUSH 1 mg Q3H PRN Administration PAIN LEVEL 4 - 6 Ertapenem 1 gm/ Sodium 50 mls @ 100 mls/hr 08/20/20 12:15 Chloride IVPB DAILY [facility] Lactobacillus Acidophilus 1 tab 08/08/20 12:45 08/20/20 10:02 Bacid - PEG 1 tab DAILY [facility] Administration Lidocaine 1 patch 08/09/20 11:30 08/20/20 10:03 Lidoderm Patch - TP 1 patch DAILY [facility] Administration Lidocaine HCl 1 applic 07/25/20 21:50 08/20/20 10:04 Xylocaine 5% Top. Ointment TP 1 applic DAILY [facility] Administration Methadone HCl 5 mg 08/20/20 22:00 Dolophine Injection - IVPUSH BID [facility] Miscellaneous 1 each 08/09/20 23:00 08/19/20 23:45 Lidoderm Patch Removal MC 1 each DAILY@2200 [facility] Administration Morphine Sulfate 1 mg 08/08/20 10:43 08/17/20 05:41 Morphine Sulfate IVPUSH 1 mg Q6H PRN Administration PAIN LEVEL 1-3 Multi-Ingredient Ointment 1 applic 07/19/20 13:30 08/20/20 10:04 Zinc Oxide TP 1 applic DAILY [facility] Administration Multivitamins/Minerals 15 ml 07/06/20 11:45 08/20/20 10:00 Certavite-Antioxidant Liquid NGT 15 ml DAILY [facility] Administration Thiamine HCl 100 mg 07/11/20 12:45 08/20/20 10:04 Vitamin B1 Injection - IVPB 100 mg DAILY [facility] Administration ASSESSMENT/PLAN: 35 year old female patient with past medical history that includes malnutrition 2/2 bulimia, polysubstance use disorder including heroin abuse, and cirrhosis, who is in the ICU due to sepsis and acute hypoxic respiratory failure, now s/p trach, abdominal peritoneal drain, PEG placement, and L chest tube, wih trach replaced with a smaller size 08/15. [employer] - AOx3, communicates with pen/paper - Pain control on Dilaudid 1mg Q3H, Morphine 1mg Q6H PRN, methadone 10 mg PO BID, Lidocaine patch - pain management consulted - Diazepam 2mg PRN for insomnia CVS - MAP stable - no pressor support - tachy possibly due to sepsis, now on Ertapenem Resp - Tracheostomy 07/25 - Chest CT showed cavitary lesions - bronchoscopy with lavage 08/15 with sputum cultures collected, which shows Klebsiella Pneumoniae - ESBL and Mold. - high risk of recurrent pneumo - goal SpO2 >90% GI - tube feeding ID - S/p Tigecycline (08/07) - CT chest showed cavitations, sputum cultures Klebsiella Pneumoniae - ESBL and Mold - ID consulted (Dr. Martines) - Ertapenem - LFTs stable Renal - sodium stable Heme - Hbg stable at 11.1 - transfuse if hbg < 7 Derm - Multiple Sacral Ulcers (stage 4) - Daily wound care, air mattress, w/ frequent turns - Off-loading to all bony areas (heels, ankles, hips and tailbone) with Allevyn/Optifoam FEN - Jevity w/ Prosource to reduce volume and increase calories - tube feeds - monitor and replete lytes PRN DVT PPx - Heparin BID Dispo: - Possibly going to LTACH tomorrow Visit type - Emergency Visit Emergency Visit: Yes ED Registration Date: 07/01/20 Care time: The patient presented to the Emergency Department on the above date a nd was hospitalized for further evaluation of their emergent condition. - New Patient This patient is new to me today: Yes Date on this admission: 08/20/20 - Critical Care Critical Care patient: Yes Total Critical Care Time (in minutes): 30 Critical Care Statement: The care of this patient involved high complexity decision making to prevent further life threatening deterioration of the patient's condition and/or to evaluate & treat vital organ system(s) failure or risk of failure. - Discharge Referral Referred to [facility] No ATTENDING PHYSICIAN STATEMENT I saw and evaluated the patient. I reviewed the resident's note and discussed the case with the resident. I agree with the resident's findings and plan as documented. SUBJECTIVE: OBJECTIVE: ASSESSMENT AND PLAN:
--- NOTE | 2020-08-20 13:10 | PN ---
Teaching Attending Note Name of Resident: Adi Steel ATTENDING PHYSICIAN STATEMENT I saw and evaluated the patient. I reviewed the resident's note and discussed the case with the resident. I agree with the resident's findings and plan as documented. SUBJECTIVE: Patient seen and examined in the ICU. Vented, awake. Still with pain issues. OBJECTIVE: Intake & Output 08/17/20 08/18/20 08/19/20 08/20/20 23:59 23:59 23:59 23:59 Intake Total 934 2432 1390 710 Output Total 720 950 925 450 Balance 214 1482 465 260 Weight 73 lb 73 lb 1.332 oz 73 lb 1.332 oz 73 lb 1.332 oz Last Vital Signs Temp Pulse Resp BP Pulse Ox 97.8 F 110 H 26 H 100/75 94 L 08/20/20 10:00 08/20/20 12:00 08/20/20 12:05 08/20/20 12:00 08/20/20 12:05 Active Medications Amino Acids (Prosource No Carb Liquid Pkt) 30 ml PO DAILY [facility] Last Admin: 08/20/20 09:59 Dose: 30 ml Documented by: Ascorbic Acid (Vitamin C -) 500 mg PO DAILY [facility] Last Admin: 08/20/20 10:01 Dose: 500 mg Documented by: Banana Based Medical Food (Banatrol Plus Powder Packet) 1 packet PO TID [facility] Last Admin: 08/20/20 05:37 Dose: 1 packet Documented by: Collagenase (Santyl -) 1 applic TP DAILY [facility]; Protocol Last Admin: 08/20/20 10:04 Dose: 1 applic Documented by: Dextrose (D50w (Vial) -) 12.5 gm IVPUSH PRN PRN PRN Reason: HYPOGLYCEMIA Last Admin: 08/14/20 05:29 Dose: 12.5 gm Documented by: Diazepam (Valium -) 2 mg PO 2100 PRN PRN Reason: INSOMNIA Last Admin: 08/16/20 21:16 Dose: 2 mg Documented by: Famotidine (Pepcid) 20 mg PEG DAILY [facility] Last Admin: 08/20/20 10:00 Dose: 20 mg Documented by: Folic Acid (Folic Acid -) 1 mg NGT DAILY [facility] Last Admin: 08/20/20 10:01 Dose: 1 mg Documented by: Heparin Sodium (Porcine) (Heparin -) 5,000 unit SQ BID [facility] Last Admin: 08/20/20 10:03 Dose: 5,000 unit Documented by: Hydromorphone HCl (Dilaudid Vial -) 1 mg IVPUSH Q3H PRN PRN Reason: PAIN LEVEL 4 - 6 Last Admin: 08/20/20 10:02 Dose: 1 mg Documented by: Ertapenem 1 gm/ Sodium (Chloride) 50 mls @ 100 mls/hr IVPB DAILY [facility] Lactobacillus Acidophilus (Bacid -) 1 tab PEG DAILY [facility] Last Admin: 08/20/20 10:02 Dose: 1 tab Documented by: Lidocaine (Lidoderm Patch -) 1 patch TP DAILY [facility] Last Admin: 08/20/20 10:03 Dose: 1 patch Documented by: Lidocaine HCl (Xylocaine 5% Top. Ointment) 1 applic TP DAILY [facility] Last Admin: 08/20/20 10:04 Dose: 1 applic Documented by: Methadone HCl (Dolophine Injection -) 5 mg IVPUSH BID [facility] Miscellaneous (Lidoderm Patch Removal) 1 each MC DAILY@2200 [facility] Last Admin: 08/19/20 23:45 Dose: 1 each Documented by: Morphine Sulfate (Morphine Sulfate) 1 mg IVPUSH Q6H PRN PRN Reason: PAIN LEVEL 1-3 Last Admin: 08/17/20 05:41 Dose: 1 mg Documented by: Multi-Ingredient Ointment (Zinc Oxide) 1 applic TP DAILY [facility] Last Admin: 08/20/20 10:04 Dose: 1 applic Documented by: Multivitamins/Minerals (Certavite-Antioxidant Liquid) 15 ml NGT DAILY [facility] Last Admin: 08/20/20 10:00 Dose: 15 ml Documented by: Thiamine HCl (Vitamin B1 Injection -) 100 mg IVPB DAILY [facility] Last Admin: 08/20/20 10:04 Dose: 100 mg Documented by: Gen: vented, cachectic Heart: RRR Lung: scattered rhonchi Abd: soft, nontender Ext: no edema Laboratory Results - last 24 hr 08/19/20 08/20/20 08/20/20 18:03 05:43 05:50 WBC 8.3 RBC 3.61 Hgb 11.1 Hct 33.0 MCV 91.4 MCH 30.6 MCHC 33.5 RDW 16.1 H Plt Count 393 MPV 8.0 Sodium Potassium Chloride Carbon Dioxide Anion Gap BUN Creatinine Est GFR (CKD-EPI)AfAm Est GFR (CKD-EPI)NonAf POC Glucometer 116 161 Random Glucose Calcium Phosphorus Magnesium 08/20/20 08/20/20 05:50 11:46 WBC RBC Hgb Hct MCV MCH MCHC RDW Plt Count MPV Sodium 134 L Potassium 4.7 Chloride 99 Carbon Dioxide 28 Anion Gap 7 L BUN 12.1 Creatinine 0.2 L Est GFR (CKD-EPI)AfAm 196.46 Est GFR (CKD-EPI)NonAf 169.51 POC Glucometer 113 Random Glucose 126 H Calcium 7.5 L Phosphorus 3.1 Magnesium 2.0 ASSESSMENT AND PLAN: Acute Hypoxic Respiratory Failure s/p Tracheostomy Pneumonia likely Aspiration UTI Sepsis Hyponatremia Small Bowel Obstruction Ascites s/p Peritoneal drain placement Alcohol/Heroin Abuse Anemia/Thrombocytopenia Failure to Thrive Severe Protein Calorie Malnutrition Refeeding Syndrome - ABX per ID - f/u final cultures - Hold PMV trials due to overall tenuous/poor condition - pain control: Increase Methadone and consult Dr Parra: monitor LFTs - monitor urine output, creatinine - titrate FiO2 to keep SpO2 >90% - enteral feeds - DVT/GI prophylaxis - for LTACH placement - Can downgrade Dr Babb
[2020-08-20] MEDS: ERTAPENEM SODIUM 1 GM in SODIUM CHLORIDE 50 ML IVPB SCH (14:56)
--- NOTE | 2020-08-20 16:31 | PN ---
Progress Note, Physician History of Present Illness: Pt seen and examined at bedside. She appears comfortable. - Current Medication List Current Medications: Active Medications Amino Acids (Prosource No Carb Liquid Pkt) 30 ml PO DAILY [facility] Last Admin: 08/20/20 09:59 Dose: 30 ml Documented by: Ascorbic Acid (Vitamin C -) 500 mg PO DAILY [facility] Last Admin: 08/20/20 10:01 Dose: 500 mg Documented by: Banana Based Medical Food (Banatrol Plus Powder Packet) 1 packet PO TID [facility] Last Admin: 08/20/20 14:05 Dose: 1 packet Documented by: Collagenase (Santyl -) 1 applic TP DAILY [facility]; Protocol Last Admin: 08/20/20 10:04 Dose: 1 applic Documented by: Dextrose (D50w (Vial) -) 12.5 gm IVPUSH PRN PRN PRN Reason: HYPOGLYCEMIA Last Admin: 08/14/20 05:29 Dose: 12.5 gm Documented by: Diazepam (Valium -) 2 mg PO 2100 PRN PRN Reason: INSOMNIA Last Admin: 08/16/20 21:16 Dose: 2 mg Documented by: Famotidine (Pepcid) 20 mg PEG DAILY [facility] Last Admin: 08/20/20 10:00 Dose: 20 mg Documented by: Folic Acid (Folic Acid -) 1 mg NGT DAILY [facility] Last Admin: 08/20/20 10:01 Dose: 1 mg Documented by: Heparin Sodium (Porcine) (Heparin -) 5,000 unit SQ BID [facility] Last Admin: 08/20/20 10:03 Dose: 5,000 unit Documented by: Hydromorphone HCl (Dilaudid Vial -) 1 mg IVPUSH Q3H PRN PRN Reason: PAIN LEVEL 4 - 6 Last Admin: 08/20/20 13:57 Dose: 1 mg Documented by: Ertapenem 1 gm/ Sodium (Chloride) 50 mls @ 100 mls/hr IVPB DAILY [facility] Last Admin: 08/20/20 14:56 Dose: 100 mls/hr Documented by: Lactobacillus Acidophilus (Bacid -) 1 tab PEG DAILY [facility] Last Admin: 08/20/20 10:02 Dose: 1 tab Documented by: Lidocaine (Lidoderm Patch -) 1 patch TP DAILY [facility] Last Admin: 08/20/20 10:03 Dose: 1 patch Documented by: Lidocaine HCl (Xylocaine 5% Top. Ointment) 1 applic TP DAILY [facility] Last Admin: 08/20/20 10:04 Dose: 1 applic Documented by: Methadone HCl (Dolophine Injection -) 5 mg IVPUSH BID [facility] Miscellaneous (Lidoderm Patch Removal) 1 each MC DAILY@2200 [facility] Last Admin: 08/19/20 23:45 Dose: 1 each Documented by: Morphine Sulfate (Morphine Sulfate) 1 mg IVPUSH Q6H PRN PRN Reason: PAIN LEVEL 1-3 Last Admin: 08/17/20 05:41 Dose: 1 mg Documented by: Multi-Ingredient Ointment (Zinc Oxide) 1 applic TP DAILY [facility] Last Admin: 08/20/20 10:04 Dose: 1 applic Documented by: Multivitamins/Minerals (Certavite-Antioxidant Liquid) 15 ml NGT DAILY [facility] Last Admin: 08/20/20 10:00 Dose: 15 ml Documented by: Thiamine HCl (Vitamin B1 Injection -) 100 mg IVPB DAILY [facility] Last Admin: 08/20/20 10:04 Dose: 100 mg Documented by: - Objective Vital Signs: Vital Signs Temperature 97.8 F 08/20/20 10:00 Pulse Rate 110 H 08/20/20 12:00 Respiratory Rate 27 H 08/20/20 15:35 Blood Pressure 100/75 08/20/20 12:00 O2 Sat by Pulse Oximetry (%) 96 08/20/20 15:35 Constitutional: Yes: Calm Eyes: Yes: Conjunctiva Clear HENT: Yes: Atraumatic Cardiovascular: Yes: S1, S2 Respiratory: Yes: Mechanically Ventilated Gastrointestinal: Yes: Soft Genitourinary: Yes: Uribe Present Edema: Yes Edema: LLE: Trace, RLE: Trace Neurological: Yes: Oriented Labs: CBC, BMP 08/20/20 05:50 08/20/20 05:50 INR, PTT INR 1.37 (0.83-1.09) H 08/18/20 06:44 Fibrinogen 344.0 mg/dL (238-498) 07/21/20 06:00 Problem List - Problems (1) Hypoglycemia Code(s): E16.2 - HYPOGLYCEMIA, UNSPECIFIED (2) Sepsis Code(s): A41.9 - SEPSIS, UNSPECIFIED ORGANISM Qualifiers: Sepsis type: sepsis due to unspecified organism Sepsis acute organ dysfunction status: unspecified Qualified Code(s): A41.9 - Sepsis, unspecified organism (3) Hypoalbuminemia Code(s): E88.09 - OTH DISORDERS OF PLASMA-PROTEIN METABOLISM, NEC (4) Hyponatremia Code(s): E87.1 - HYPO-OSMOLALITY AND HYPONATREMIA Assessment/Plan Current Medications Generic Name Dose Route Start Last Admin Trade Name Freq PRN Reason Stop Dose Admin Amino Acids 30 ml 08/08/20 12:45 08/20/20 09:59 Prosource No Carb Liquid Pkt PO 30 ml DAILY [facility] Administration Ascorbic Acid 500 mg 07/27/20 13:00 08/20/20 10:01 Vitamin C - PO 500 mg DAILY [facility] Administration Banana Based Medical Food 1 packet 08/13/20 14:00 08/20/20 14:05 Banatrol Plus Powder Packet PO 1 packet TID [facility] Administration Collagenase 1 applic 08/05/20 19:30 08/20/20 10:04 Santyl - TP 1 applic DAILY [facility] Administration Protocol Dextrose 12.5 gm 07/08/20 07:08 08/14/20 05:29 D50w (Vial) - IVPUSH 12.5 gm PRN PRN Administration HYPOGLYCEMIA Diazepam 2 mg 08/10/20 10:41 08/16/20 21:16 Valium - PO 2 mg 2100 PRN Administration INSOMNIA Famotidine 20 mg 08/04/20 10:45 08/20/20 10:00 Pepcid PEG 20 mg DAILY [facility] Administration Folic Acid 1 mg 07/06/20 10:00 08/20/20 10:01 Folic Acid - NGT 1 mg DAILY [facility] Administration Heparin Sodium (Porcine) 5,000 unit 07/20/20 10:00 08/20/20 10:03 Heparin - SQ 5,000 unit BID [facility] Administration Hydromorphone HCl 1 mg 07/26/20 13:39 08/20/20 13:57 Dilaudid Vial - IVPUSH 1 mg Q3H PRN Administration PAIN LEVEL 4 - 6 Ertapenem 1 gm/ Sodium 50 mls @ 100 mls/hr 08/20/20 12:15 08/20/20 14:56 Chloride IVPB 100 mls/hr DAILY [facility] Administration Lactobacillus Acidophilus 1 tab 08/08/20 12:45 08/20/20 10:02 Bacid - PEG 1 tab DAILY [facility] Administration Lidocaine 1 patch 08/09/20 11:30 08/20/20 10:03 Lidoderm Patch - TP 1 patch DAILY [facility] Administration Lidocaine HCl 1 applic 07/25/20 21:50 08/20/20 10:04 Xylocaine 5% Top. Ointment TP 1 applic DAILY [facility] Administration Methadone HCl 5 mg 08/20/20 22:00 Dolophine Injection - IVPUSH BID [facility] Miscellaneous 1 each 08/09/20 23:00 08/19/20 23:45 Lidoderm Patch Removal MC 1 each DAILY@2200 [facility] Administration Morphine Sulfate 1 mg 08/08/20 10:43 08/17/20 05:41 Morphine Sulfate IVPUSH 1 mg Q6H PRN Administration PAIN LEVEL 1-3 Multi-Ingredient Ointment 1 applic 07/19/20 13:30 08/20/20 10:04 Zinc Oxide TP 1 applic DAILY [facility] Administration Multivitamins/Minerals 15 ml 07/06/20 11:45 08/20/20 10:00 Certavite-Antioxidant Liquid NGT 15 ml DAILY [facility] Administration Thiamine HCl 100 mg 07/11/20 12:45 08/20/20 10:04 Vitamin B1 Injection - IVPB 100 mg DAILY [facility] Administration Impression 1. azotemia 2. hyponatremia 3. hyperkalemia 4. hypotension 5. sepsis 6. sbo 7. uti 8. liver cirrhosis 9. hypoalbuminemia 10. etoh abuse 11. substance abuse 12. psoriasis 13. acute resp failure 14. malnutrition 15. 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 ascites Plan - pt tolerating feeds - cont vent support - repeat labs in am - low drag out worker secondary to low muscle mass - dietary follow up
[2020-08-20] MEDS: METHADONE HCL 10 MG TABLET PO SCH (21:13)
[2020-08-20] MEDS: LIDOCAINE PATCH REMOVAL MC SCH (21:14)
--- NOTE | 2020-08-20 21:18 | PN ---
Progress Note, Physician History of Present Illness: Pt remains vented - Current Medication List Current Medications: Active Medications Amino Acids (Prosource No Carb Liquid Pkt) 30 ml PO DAILY [facility] Last Admin: 08/20/20 09:59 Dose: 30 ml Documented by: Ascorbic Acid (Vitamin C -) 500 mg PO DAILY [facility] Last Admin: 08/20/20 10:01 Dose: 500 mg Documented by: Banana Based Medical Food (Banatrol Plus Powder Packet) 1 packet PO TID [facility] Last Admin: 08/20/20 21:13 Dose: 1 packet Documented by: Collagenase (Santyl -) 1 applic TP DAILY [facility]; Protocol Last Admin: 08/20/20 10:04 Dose: 1 applic Documented by: Dextrose (D50w (Vial) -) 12.5 gm IVPUSH PRN PRN PRN Reason: HYPOGLYCEMIA Last Admin: 08/14/20 05:29 Dose: 12.5 gm Documented by: Diazepam (Valium -) 2 mg PO 2100 PRN PRN Reason: INSOMNIA Last Admin: 08/16/20 21:16 Dose: 2 mg Documented by: Famotidine (Pepcid) 20 mg PEG DAILY [facility] Last Admin: 08/20/20 10:00 Dose: 20 mg Documented by: Folic Acid (Folic Acid -) 1 mg NGT DAILY [facility] Last Admin: 08/20/20 10:01 Dose: 1 mg Documented by: Heparin Sodium (Porcine) (Heparin -) 5,000 unit SQ BID [facility] Last Admin: 08/20/20 21:13 Dose: 5,000 unit Documented by: Hydromorphone HCl (Dilaudid Vial -) 1 mg IVPUSH Q3H PRN PRN Reason: PAIN LEVEL 4 - 6 Last Admin: 08/20/20 17:51 Dose: 1 mg Documented by: Ertapenem 1 gm/ Sodium (Chloride) 50 mls @ 100 mls/hr IVPB DAILY [facility] Last Admin: 08/20/20 14:56 Dose: 100 mls/hr Documented by: Lactobacillus Acidophilus (Bacid -) 1 tab PEG DAILY [facility] Last Admin: 08/20/20 10:02 Dose: 1 tab Documented by: Lidocaine (Lidoderm Patch -) 1 patch TP DAILY [facility] Last Admin: 08/20/20 10:03 Dose: 1 patch Documented by: Lidocaine HCl (Xylocaine 5% Top. Ointment) 1 applic TP DAILY [facility] Last Admin: 08/20/20 10:04 Dose: 1 applic Documented by: Methadone HCl (Dolophine Injection -) 5 mg IVPUSH BID [facility] Methadone HCl (Dolophine -) 10 mg PO BID [facility] Last Admin: 08/20/20 21:13 Dose: 10 mg Documented by: Miscellaneous (Lidoderm Patch Removal) 1 each MC DAILY@2200 [facility] Last Admin: 08/20/20 21:14 Dose: 1 each Documented by: Morphine Sulfate (Morphine Sulfate) 1 mg IVPUSH Q6H PRN PRN Reason: PAIN LEVEL 1-3 Last Admin: 08/17/20 05:41 Dose: 1 mg Documented by: Multi-Ingredient Ointment (Zinc Oxide) 1 applic TP DAILY [facility] Last Admin: 08/20/20 10:04 Dose: 1 applic Documented by: Multivitamins/Minerals (Certavite-Antioxidant Liquid) 15 ml NGT DAILY [facility] Last Admin: 08/20/20 10:00 Dose: 15 ml Documented by: Thiamine HCl (Vitamin B1 Injection -) 100 mg IVPB DAILY [facility] Last Admin: 08/20/20 10:04 Dose: 100 mg Documented by: - Objective Vital Signs: Vital Signs Temperature 99.3 F 08/20/20 19:30 Pulse Rate 121 H 08/20/20 19:30 Respiratory Rate 22 H 08/20/20 19:30 Blood Pressure 100/70 08/20/20 19:30 O2 Sat by Pulse Oximetry (%) 96 08/20/20 19:30 HENT: Yes: Other ((+) trach) Neck: Yes: WNL, Supple Cardiovascular: Yes: Tachycardia Respiratory: Yes: Diminished Gastrointestinal: Yes: Normal Bowel Sounds, Other ((+) PEG) Labs: CBC, BMP 08/20/20 05:50 08/20/20 05:50 INR, PTT INR 1.37 (0.83-1.09) H 08/18/20 06:44 Fibrinogen 344.0 mg/dL (238-498) 07/21/20 06:00 Problem List - Problems (1) Respiratory failure Assessment/Plan: Acute on chronic respiratory failure Multifactorial RLL infiltrates/Asp pneumonia S/P tracheostomy Ct scan chest showed cavitary lesions S/P Pneumothorax EITAN S/P Chest tube Code(s): J96.90 - RESPIRATORY FAILURE, UNSP, UNSP W HYPOXIA OR HYPERCAPNIA (2) Sepsis Assessment/Plan: Pt is off antibxs Follow WBC Lactic acidosis Cont IVF Code(s): A41.9 - SEPSIS, UNSPECIFIED ORGANISM Qualifiers: Sepsis type: sepsis due to unspecified organism Sepsis acute organ dysfunction status: unspecified Qualified Code(s): A41.9 - Sepsis, unspecified organism (3) Anemia Assessment/Plan: Monitor H/H S/p transfusion PRBC's H/H improved Code(s): D64.9 - ANEMIA, UNSPECIFIED (4) At risk for electrolyte imbalance Code(s): Z91.89 - OT PERSONAL RISK FACTORS, NOT ELSEWHERE CLASSIFIED (5) Liver cirrhosis, alcoholic Code(s): K70.30 - ALCOHOLIC CIRRHOSIS OF LIVER WITHOUT ASCITES (6) Hypoalbuminemia Code(s): E88.09 - OT DISORDERS OF PLASMA-PROTEIN METABOLISM, NEC (7) Substance abuse Code(s): F19.10 - OTHER PSYCHOACTIVE SUBSTANCE ABUSE, UNCOMPLICATED (8) Cachexia Code(s): R64 - CACHEXIA (9) Severe malnutrition Code(s): E43 - UNSPECIFIED SEVERE PROTEIN-CALORIE MALNUTRITION (10) Sacral ulcer Code(s): L98.429 - NON-PRESSURE CHRONIC ULCER OF BACK WITH UNSPECIFIED SEVERITY (11) SBO (small bowel obstruction) Code(s): K56.609 - UNSP INTESTNL OBST, UNSP TO PARTIAL VERSUS COMPLETE OBST
[2020-08-20] MEDS ORDERED: METHADONE HCL 10 MG/1 ML (20ML VIAL) IVPUSH SCH (22:00)
[2020-08-20] MEDS ORDERED: METHADONE HCL 10 MG TABLET (FOR DETOX USE ONLY) PO SCH (22:00)
[2020-08-20] MEDS: diazePAM 2 MG TABLET PO PRN (22:46)
[2020-08-21] MEDS: BANATROL PLUS POWDER PACKET PO SCH ×2 (05:38→15:54)
[2020-08-21] MEDS: HYDROmorphone HCl 2 MG/ML VIAL IVPUSH PRN (06:24)
[2020-08-21 06:44] LABS: HEMATOCRIT 31.5 % (32.4-45.2); HEMOGLOBIN 10.5 GM/dL (10.7-15.3); MCH 30.3 pg (25.7-33.7); MCHC 33.3 g/dl (32.0-36.0); MEAN PLT VOLUME 8.1 fl (7.5-11.1); PLATELET COUNT 364 K/MM3 (134-434); RBC 3.46 M/mm3 (3.60-5.2); RDW 15.8 % (11.6-15.6); WHITE BLOOD COUNT 12.2 K/mm3 (4.0-10.0)
[2020-08-21 07:26] LABS: CHLORIDE 100 mmol/L (98-107); POTASSIUM 4.4 mmol/L (3.5-5.1); SODIUM 132 mmol/L (136-145)
[2020-08-21 07:30] LABS: ANION GAP 6 MMOL/L (8-16); BLOOD UREA NITROGEN 12.5 mg/dL (7-18); CALCIUM 7.6 mg/dL (8.5-10.1); CO2 26 mmol/L (21-32); GLUCOSE,RANDOM 110 mg/dL (74-106); MAGNESIUM 1.8 mg/dL (1.8-2.4)
[2020-08-21 07:33] LABS: CREATININE < 0.2 mg/dL (0.55-1.3); PHOSPHOROUS 3.5 mg/dL (2.5-4.9)
[2020-08-21] MEDS ORDERED: PT OWN MED DRAWER 7, Y5N ONE (09:33)
[2020-08-21] MEDS: ERTAPENEM SODIUM 1 GM in SODIUM CHLORIDE 50 ML IVPB SCH (09:39)
[2020-08-21] MEDS: MULTIVIT-MINERALS ORAL LIQUID NGT SCH (09:39)
[2020-08-21] MEDS: AMINO ACIDS/PROTEIN HYDROLYS 30 ML LIQUID.PKT PO SCH (09:39)
[2020-08-21] MEDS: ASCORBIC ACID 500 MG TABLET (FP) PO SCH (09:40)
[2020-08-21] MEDS: FAMOTIDINE 40 MG/5 ML ORAL SUSPENSION PEG SCH (09:40)
[2020-08-21] MEDS: LACTOBACILLUS ACIDOPHILUS 1 TABLET PEG SCH (09:40)
[2020-08-21] MEDS: COLLAGENASE CLOSTRIDIUM HIST. 30 GRAMS TUBE TP SCH (09:40)
[2020-08-21] MEDS: METHADONE HCL 10 MG TABLET PO SCH (09:40)
[2020-08-21] MEDS: LIDOCAINE 5% TOPICAL PATCH TP SCH (09:40)
[2020-08-21] MEDS: HEPARIN NA (PORCINE) 5,000 UNITS/ML 1ML VIAL SQ SCH (09:41)
[2020-08-21] MEDS: FOLIC ACID 1 MG TABLET (FP) NGT SCH (09:41)
[2020-08-21] MEDS: THIAMINE HCL 200 MG/2 ML VIAL IVPB SCH (09:42)
[2020-08-21] MEDS: ZINC OXIDE 20% TOPICAL OINTMENT 30 GM TUBE TP SCH (09:42)
[2020-08-21] MEDS: LIDOCAINE HCL 5% TOP OINTMENT 50 GM TUBE TP SCH (09:42)
[2020-08-21 10:25] LABS: ALBUMIN 1.5 g/dl (3.4-5.0)
[2020-08-21 10:28] LABS: BILIRUBIN,DIRECT 0.2 mg/dL (0.0-0.2)
[2020-08-21 10:29] LABS: SGOT/AST 41 U/L (15-37)
[2020-08-21 10:30] LABS: BILIRUBIN,TOTAL 0.4 mg/dL (0.2-1)
[2020-08-21 10:33] LABS: SGPT/ALT 47 U/L (13-61)
[2020-08-21 10:34] LABS: ALK PHOS 429 U/L (45-117)
--- NOTE | 2020-08-21 12:02 | PN ---
Teaching Attending Note Name of Resident: Adi Steel ATTENDING PHYSICIAN STATEMENT I saw and evaluated the patient. I reviewed the resident's note and discussed the case with the resident. I agree with the resident's findings and plan as documented. SUBJECTIVE: Pt seen and examined in the ICU. Vented, awake. No fevers recorded. Not tolerat ing CPAP/PS trials. OBJECTIVE: Vital Signs Period Temp Pulse Resp BP Sys/Campbell Pulse Ox Last 24 Hr 98.9 F-99.7 F 97-137 15-31 96-110/68-83 94-100 Intake & Output 08/18/20 08/19/20 08/20/20 08/21/20 23:59 23:59 23:59 23:59 Intake Total 2432 1390 1470 660 Output Total 950 925 720 980 Balance 1482 465 750 -320 Weight 33.15 kg 33.15 kg 33.15 kg Gen: vented, cachectic Heart: RRR Lung: scattered rhonchi Abd: soft, nontender, +ascites Ext: no edema CBC, BMP 08/21/20 05:44 08/21/20 05:44 Active Medications Amino Acids (Prosource No Carb Liquid Pkt) 30 ml PO DAILY [facility] Last Admin: 08/21/20 09:39 Dose: 30 ml Documented by: Ascorbic Acid (Vitamin C -) 500 mg PO DAILY [facility] Last Admin: 08/21/20 09:40 Dose: 500 mg Documented by: Banana Based Medical Food (Banatrol Plus Powder Packet) 1 packet PO TID [facility] Last Admin: 08/21/20 05:38 Dose: 1 packet Documented by: Collagenase (Santyl -) 1 applic TP DAILY [facility]; Protocol Last Admin: 08/21/20 09:40 Dose: 1 applic Documented by: Dextrose (D50w (Vial) -) 12.5 gm IVPUSH PRN PRN PRN Reason: HYPOGLYCEMIA Last Admin: 08/14/20 05:29 Dose: 12.5 gm Documented by: Diazepam (Valium -) 2 mg PO 2100 PRN PRN Reason: INSOMNIA Last Admin: 08/20/20 22:46 Dose: 2 mg Documented by: Famotidine (Pepcid) 20 mg PEG DAILY [facility] Last Admin: 08/21/20 09:40 Dose: 20 mg Documented by: Folic Acid (Folic Acid -) 1 mg NGT DAILY [facility] Last Admin: 08/21/20 09:41 Dose: 1 mg Documented by: Heparin Sodium (Porcine) (Heparin -) 5,000 unit SQ BID [facility] Last Admin: 08/21/20 09:41 Dose: 5,000 unit Documented by: Hydromorphone HCl (Dilaudid Vial -) 1 mg IVPUSH Q3H PRN PRN Reason: PAIN LEVEL 4 - 6 Last Admin: 08/21/20 06:24 Dose: 1 mg Documented by: Ertapenem 1 gm/ Sodium (Chloride) 50 mls @ 100 mls/hr IVPB DAILY [facility] Last Admin: 08/21/20 09:39 Dose: 100 mls/hr Documented by: Lactobacillus Acidophilus (Bacid -) 1 tab PEG DAILY [facility] Last Admin: 08/21/20 09:40 Dose: 1 tab Documented by: Lidocaine (Lidoderm Patch -) 1 patch TP DAILY [facility] Last Admin: 08/21/20 09:40 Dose: 1 patch Documented by: Lidocaine HCl (Xylocaine 5% Top. Ointment) 1 applic TP DAILY [facility] Last Admin: 08/21/20 09:42 Dose: 1 applic Documented by: Methadone HCl (Dolophine -) 10 mg PO BID [facility] Last Admin: 08/21/20 09:40 Dose: 10 mg Documented by: Miscellaneous (Lidoderm Patch Removal) 1 each MC DAILY@2200 [facility] Last Admin: 08/20/20 21:14 Dose: 1 each Documented by: Morphine Sulfate (Morphine Sulfate) 1 mg IVPUSH Q6H PRN PRN Reason: PAIN LEVEL 1-3 Last Admin: 08/17/20 05:41 Dose: 1 mg Documented by: Multi-Ingredient Ointment (Zinc Oxide) 1 applic TP DAILY [facility] Last Admin: 08/21/20 09:42 Dose: 1 applic Documented by: Multivitamins/Minerals (Certavite-Antioxidant Liquid) 15 ml NGT DAILY [facility] Last Admin: 08/21/20 09:39 Dose: 15 ml Documented by: Thiamine HCl (Vitamin B1 Injection -) 100 mg IVPB DAILY [facility] Last Admin: 08/21/20 09:42 Dose: 100 mg Documented by: ASSESSMENT AND PLAN: Acute Hypoxic Respiratory Failure s/p Tracheostomy Pneumonia likely Aspiration UTI Sepsis Hyponatremia Small Bowel Obstruction Ascites s/p Peritoneal drain placement Alcohol/Heroin Abuse Anemia/Thrombocytopenia Failure to Thrive Severe Protein Calorie Malnutrition Refeeding Syndrome - continue antibiotics per ID - PMV trial as tolerated - swallow eval - pain control - check LFTs now that methadone started - monitor urine output, creatinine - monitor H/H - completed antibiotics - off pressors, maintain MAP >65 - titrate FiO2 to keep SpO2 >90% - spontaneous breathing trials as tolerated - enteral feeds - DVT/GI prophylaxis - continue ICU monitoring - for LTACH placement
--- NOTE | 2020-08-21 12:25 | PN ---
Progress Note, CHAIN OFFBEARER - Note Progress Note: Pending transfer to [facility]. Asked to reassess PMV use. improved use today with 100% o2 saturation, RR 30, (last time was in mid 40's) Aphonic with mild improvement in ability to take deep breaths and push out phonation to audible, dysphonic voice. Suspect impairment related to weak vocal cord adduction and weak respiratory function. [facility] and respiratory muscles, for improved communication, pulm function, psychosocial benefit, and swallowing function.
[2020-08-21] MEDS: MORPHINE SULFATE 2 MG/ML VIAL IVPUSH PRN (12:40)
--- NOTE | 2020-08-21 13:36 | DS ---
Physical Examination Vital Signs: Vital Signs Temperature 99.4 F 08/21/20 02:00 Pulse Rate 116 H 08/21/20 08:34 Respiratory Rate 22 H 08/21/20 11:51 Blood Pressure 103/76 08/21/20 07:00 O2 Sat by Pulse Oximetry (%) 97 08/21/20 11:51 Labs: CBC, BMP 08/21/20 05:44 08/21/20 05:44 Discharge Summary Problems reviewed: Yes Reason For Visit: ABDOMINAL PAIN,HYPONATREMIA,ALCOLHOLIC CIRRHOSIS, Current Active Problems Anemia (Acute) At risk for electrolyte imbalance (Acute) Bowel obstruction (Acute) Cirrhosis (Acute) Elevated LFTs (Acute) Hypoglycemia (Acute) Hypotension (Acute) Hypothermia (Acute) Ischemic hepatitis (Acute) Pneumonia (Acute) Pneumothorax on left (Acute) Respiratory failure (Acute) SBO (small bowel obstruction) (Acute) Sacral ulcer (Acute) Sepsis (Acute) Severe malnutrition (Acute) Skin abrasion (Acute) Syncope (Acute) UTI (urinary tract infection) (Acute) Hospital Course: Pt is a 34 yo F pmh cachexia (bulimia vs anorexia vs mixed picture), ETOH abuse, heroin abuse, cirrhosis, HTN, GERD, psoriasis / psoriatic arthritis, asthma, presenting after episode of passing out with hypoglycemia at home. Patient BIBEMS with hypoglycemia, hypotension, hypoxia, hyperthermia. Pt was admitted to ICU for sepsis and acute respiratory failure. Pt was intubated and treated w/ IV antibxs for asp pneumonia. Pt was subsequently had a tracheostomy and PEG placement. Pt also developed pneumonthorax and had chest tube wc was removed. Pt has been off antibx's and is now ready for DC to LTACH. Condition: Guarded - Instructions Referrals: Ralph Cordon MD [Primary Care Provider] - Disposition: NURSING HOME FACILITY - Home Medications Comprehensive Discharge Medication List: Ambulatory Orders Sulfamethoxazole/Trimethoprim [Bactrim Ds -] 1 tab PO BID #14 tablet 06/26/20
--- NOTE | 2020-08-21 13:45 | PN ---
Progress Note, Physician - Current Medication List Current Medications: Active Medications Amino Acids (Prosource No Carb Liquid Pkt) 30 ml PO DAILY [facility] Last Admin: 08/21/20 09:39 Dose: 30 ml Documented by: Ascorbic Acid (Vitamin C -) 500 mg PO DAILY [facility] Last Admin: 08/21/20 09:40 Dose: 500 mg Documented by: Banana Based Medical Food (Banatrol Plus Powder Packet) 1 packet PO TID [facility] Last Admin: 08/21/20 05:38 Dose: 1 packet Documented by: Collagenase (Santyl -) 1 applic TP DAILY [facility]; Protocol Last Admin: 08/21/20 09:40 Dose: 1 applic Documented by: Dextrose (D50w (Vial) -) 12.5 gm IVPUSH PRN PRN PRN Reason: HYPOGLYCEMIA Last Admin: 08/14/20 05:29 Dose: 12.5 gm Documented by: Diazepam (Valium -) 2 mg PO 2100 PRN PRN Reason: INSOMNIA Last Admin: 08/20/20 22:46 Dose: 2 mg Documented by: Famotidine (Pepcid) 20 mg PEG DAILY [facility] Last Admin: 08/21/20 09:40 Dose: 20 mg Documented by: Folic Acid (Folic Acid -) 1 mg NGT DAILY [facility] Last Admin: 08/21/20 09:41 Dose: 1 mg Documented by: Heparin Sodium (Porcine) (Heparin -) 5,000 unit SQ BID [facility] Last Admin: 08/21/20 09:41 Dose: 5,000 unit Documented by: Hydromorphone HCl (Dilaudid Vial -) 1 mg IVPUSH Q3H PRN PRN Reason: PAIN LEVEL 4 - 6 Last Admin: 08/21/20 06:24 Dose: 1 mg Documented by: Ertapenem 1 gm/ Sodium (Chloride) 50 mls @ 100 mls/hr IVPB DAILY [facility] Last Admin: 08/21/20 09:39 Dose: 100 mls/hr Documented by: Lactobacillus Acidophilus (Bacid -) 1 tab PEG DAILY [facility] Last Admin: 08/21/20 09:40 Dose: 1 tab Documented by: Lidocaine (Lidoderm Patch -) 1 patch TP DAILY [facility] Last Admin: 08/21/20 09:40 Dose: 1 patch Documented by: Lidocaine HCl (Xylocaine 5% Top. Ointment) 1 applic TP DAILY [facility] Last Admin: 08/21/20 09:42 Dose: 1 applic Documented by: Methadone HCl (Dolophine -) 10 mg PO BID [facility] Last Admin: 08/21/20 09:40 Dose: 10 mg Documented by: Miscellaneous (Lidoderm Patch Removal) 1 each MC DAILY@2200 [facility] Last Admin: 08/20/20 21:14 Dose: 1 each Documented by: Morphine Sulfate (Morphine Sulfate) 1 mg IVPUSH Q6H PRN PRN Reason: PAIN LEVEL 1-3 Last Admin: 08/21/20 12:40 Dose: 1 mg Documented by: Multi-Ingredient Ointment (Zinc Oxide) 1 applic TP DAILY [facility] Last Admin: 08/21/20 09:42 Dose: 1 applic Documented by: Multivitamins/Minerals (Certavite-Antioxidant Liquid) 15 ml NGT DAILY [facility] Last Admin: 08/21/20 09:39 Dose: 15 ml Documented by: Thiamine HCl (Vitamin B1 Injection -) 100 mg IVPB DAILY [facility] Last Admin: 08/21/20 09:42 Dose: 100 mg Documented by: - Objective Vital Signs: Vital Signs Temperature 99.4 F 08/21/20 02:00 Pulse Rate 116 H 08/21/20 08:34 Respiratory Rate 22 H 08/21/20 11:51 Blood Pressure 103/76 08/21/20 07:00 O2 Sat by Pulse Oximetry (%) 97 08/21/20 11:51 Labs: CBC, BMP 08/21/20 05:44 08/21/20 05:44 INR, PTT INR 1.37 (0.83-1.09) H 08/18/20 06:44 Fibrinogen 344.0 mg/dL (238-498) 07/21/20 06:00
--- NOTE | 2020-08-21 14:21 | PN ---
Physical Exam: SUBJECTIVE: Patient seen and examined at bedside. She says that the deep suctioning of her trach 'zuleta like fire'. She also reports that the increase in methadone did not seem to help. She feels like she is still in a lot of pain. OBJECTIVE: Vital Signs Period Temp Pulse Resp BP Sys/Campbell Pulse Ox Last 24 Hr 99.3 F-99.7 F 97-125 15-28 96-110/68-83 95-100 GENERAL: The patient is awake, alert, and fully oriented, in no acute distress. Nonverbal due to trach in neck, but communicates with writing. HEAD: Normal with no signs of trauma. Temporal wasting. EYES: PERRL, extraocular movements intact. No ptosis. ENT: Ears normal, nares patent, oropharynx clear without exudates, moist mucous membranes. Trach in place in neck. NECK: Trachea midline, full range of motion, supple. LUNGS: Coarse breath sounds bilaterally. HEART: Regular rate and rhythm, S1, S2 without murmur, rub or gallop. ABDOMEN: Soft, nontender, nondistended, normoactive bowel sounds, no guarding, no rebound, no masses. EXTREMITIES: 2+ pulses, warm, well-perfused, no edema. NEUROLOGICAL: Cranial nerves II through XII grossly intact. Normal speech, gait not observed. PSYCH: Normal mood, normal affect. SKIN: Warm, dry, normal turgor. Very low BMI. Stage 4 Sacral Ulcer. Laboratory Results - last 24 hr 08/20/20 08/20/20 08/21/20 18:12 21:29 05:42 WBC RBC Hgb Hct MCV MCH MCHC RDW Plt Count MPV Sodium Potassium Chloride Carbon Dioxide Anion Gap BUN Creatinine Est GFR (CKD-EPI)AfAm Est GFR (CKD-EPI)NonAf POC Glucometer 81 121 98 Random Glucose Calcium Phosphorus Magnesium Total Bilirubin Direct Bilirubin AST ALT Alkaline Phosphatase Total Protein Albumin 08/21/20 08/21/20 05:44 05:44 WBC 12.2 H RBC 3.46 L Hgb 10.5 L Hct 31.5 L MCV 91.0 MCH 30.3 MCHC 33.3 RDW 15.8 H Plt Count 364 MPV 8.1 Sodium 132 L Potassium 4.4 Chloride 100 Carbon Dioxide 26 Anion Gap 6 L BUN 12.5 Creatinine < 0.2 L Est GFR (CKD-EPI)AfAm 196.46 Est GFR (CKD-EPI)NonAf 169.51 POC Glucometer Random Glucose 110 H Calcium 7.6 L Phosphorus 3.5 Magnesium 1.8 Total Bilirubin 0.4 Direct Bilirubin 0.2 AST 41 H ALT 47 Alkaline Phosphatase 429 H Total Protein 5.0 L Albumin 1.5 L Active Medications Generic Name Dose Route Start Last Admin Trade Name Freq PRN Reason Stop Dose Admin Amino Acids 30 ml 08/08/20 12:45 08/21/20 09:39 Prosource No Carb Liquid Pkt PO 30 ml DAILY RAUL Administration Ascorbic Acid 500 mg 07/27/20 13:00 08/21/20 09:40 Vitamin C - PO 500 mg DAILY RAUL Administration Banana Based Medical Food 1 packet 08/13/20 14:00 08/21/20 05:38 Banatrol Plus Powder Packet PO 1 packet TID RAUL Administration Collagenase 1 applic 08/05/20 19:30 08/21/20 09:40 Santyl - TP 1 applic DAILY RAUL Administration Protocol Dextrose 12.5 gm 07/08/20 07:08 08/14/20 05:29 D50w (Vial) - IVPUSH 12.5 gm PRN PRN Administration HYPOGLYCEMIA Diazepam 2 mg 08/10/20 10:41 08/20/20 22:46 Valium - PO 2 mg 2100 PRN Administration INSOMNIA Famotidine 20 mg 08/04/20 10:45 08/21/20 09:40 Pepcid PEG 20 mg DAILY RAUL Administration Folic Acid 1 mg 07/06/20 10:00 08/21/20 09:41 Folic Acid - NGT 1 mg DAILY RAUL Administration Heparin Sodium (Porcine) 5,000 unit 07/20/20 10:00 08/21/20 09:41 Heparin - SQ 5,000 unit BID RAUL Administration Hydromorphone HCl 1 mg 07/26/20 13:39 08/21/20 06:24 Dilaudid Vial - IVPUSH 1 mg Q3H PRN Administration PAIN LEVEL 4 - 6 Ertapenem 1 gm/ Sodium 50 mls @ 100 mls/hr 08/20/20 12:15 08/21/20 09:39 Chloride IVPB 100 mls/hr DAILY RAUL Administration Lactobacillus Acidophilus 1 tab 08/08/20 12:45 08/21/20 09:40 Bacid - PEG 1 tab DAILY RAUL Administration Lidocaine 1 patch 08/09/20 11:30 08/21/20 09:40 Lidoderm Patch - TP 1 patch DAILY RAUL Administration Lidocaine HCl 1 applic 07/25/20 21:50 08/21/20 09:42 Xylocaine 5% Top. Ointment TP 1 applic DAILY RAUL Administration Methadone HCl 10 mg 08/20/20 22:00 08/21/20 09:40 Dolophine - PO 10 mg BID RAUL Administration Miscellaneous 1 each 08/09/20 23:00 08/20/20 21:14 Lidoderm Patch Removal MC 1 each DAILY@2200 RAUL Administration Morphine Sulfate 1 mg 08/08/20 10:43 08/21/20 12:40 Morphine Sulfate IVPUSH 1 mg Q6H PRN Administration PAIN LEVEL 1-3 Multi-Ingredient Ointment 1 applic 07/19/20 13:30 08/21/20 09:42 Zinc Oxide TP 1 applic DAILY RAUL Administration Multivitamins/Minerals 15 ml 07/06/20 11:45 08/21/20 09:39 Certavite-Antioxidant Liquid NGT 15 ml DAILY RAUL Administration Thiamine HCl 100 mg 07/11/20 12:45 08/21/20 09:42 Vitamin B1 Injection - IVPB 100 mg DAILY RAUL Administration ASSESSMENT/PLAN: 35 year old female patient with past medical history that includes malnutrition 2/2 bulimia, polysubstance use disorder including heroin abuse, and cirrhosis, who is in the ICU due to sepsis and acute hypoxic respiratory failure, now s/p trach, abdominal peritoneal drain, PEG placement, and L chest tube, with trach replaced with a smaller size 08/15. 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 - Tracheostomy 07/25 - Chest CT showed cavitary lesions - bronchoscopy with lavage 08/15 with sputum cultures collected, which shows Klebsiella Pneumoniae - ESBL and Mold. - high risk of recurrent pneumo - goal SpO2 >90% GI - tube feeding ID - CT chest showed cavitations, sputum cultures Klebsiella Pneumoniae - ESBL and Mold - ID consulted (Dr. Martines) - Ertapenem - LFTs stable Renal - monitoring sodium Heme - Hbg stable at 10.5 - transfuse if hbg < 7 Derm - Multiple Sacral Ulcers (stage 4) - Daily wound care, air mattress, w/ frequent turns - Off-loading to all bony areas (heels, ankles, hips and tailbone) with Allevyn/Optifoam FEN - Jevity w/ Prosource to reduce volume and increase calories - tube feeds - monitor and replete lytes PRN DVT PPx - Heparin BID Dispo: - Possibly going to LTACH today Visit type - Emergency Visit Emergency Visit: Yes ED Registration Date: 07/01/20 Care time: The patient presented to the Emergency Department on the above date and was hospitalized for further evaluation of their emergent condition. - New Patient This patient is new to me today: No - Critical Care Critical Care patient: Yes Total Critical Care Time (in minutes): 30 Critical Care Statement: The care of this patient involved high complexity decision making to prevent further life threatening deterioration of the patient's condition and/or to evaluate & treat vital organ system(s) failure or risk of failure. - Discharge Referral Referred to [facility] No ATTENDING PHYSICIAN STATEMENT I saw and evaluated the patient. I reviewed the resident's note and discussed the case with the resident. I agree with the resident's findings and plan as documented. SUBJECTIVE: OBJECTIVE: ASSESSMENT AND PLAN:
--- NOTE | 2020-08-21 14:36 | PN ---
Progress Note, Physician History of Present Illness: Pt seen and examined at bedside. SHe remains in the ICU. She is more interactive and able to write down questions. - Current Medication List Current Medications: Active Medications Amino Acids (Prosource No Carb Liquid Pkt) 30 ml PO DAILY [facility] Last Admin: 08/21/20 09:39 Dose: 30 ml Documented by: Ascorbic Acid (Vitamin C -) 500 mg PO DAILY RAUL Last Admin: 08/21/20 09:40 Dose: 500 mg Documented by: Banana Based Medical Food (Banatrol Plus Powder Packet) 1 packet PO TID RAUL Last Admin: 08/21/20 05:38 Dose: 1 packet Documented by: Collagenase (Santyl -) 1 applic TP DAILY [facility]; Protocol Last Admin: 08/21/20 09:40 Dose: 1 applic Documented by: Dextrose (D50w (Vial) -) 12.5 gm IVPUSH PRN PRN PRN Reason: HYPOGLYCEMIA Last Admin: 08/14/20 05:29 Dose: 12.5 gm Documented by: Diazepam (Valium -) 2 mg PO 2100 PRN PRN Reason: INSOMNIA Last Admin: 08/20/20 22:46 Dose: 2 mg Documented by: Famotidine (Pepcid) 20 mg PEG DAILY RAUL Last Admin: 08/21/20 09:40 Dose: 20 mg Documented by: Folic Acid (Folic Acid -) 1 mg NGT DAILY [facility] Last Admin: 08/21/20 09:41 Dose: 1 mg Documented by: Heparin Sodium (Porcine) (Heparin -) 5,000 unit SQ BID RAUL Last Admin: 08/21/20 09:41 Dose: 5,000 unit Documented by: Hydromorphone HCl (Dilaudid Vial -) 1 mg IVPUSH Q3H PRN PRN Reason: PAIN LEVEL 4 - 6 Last Admin: 08/21/20 06:24 Dose: 1 mg Documented by: Ertapenem 1 gm/ Sodium (Chloride) 50 mls @ 100 mls/hr IVPB DAILY [facility] Last Admin: 08/21/20 09:39 Dose: 100 mls/hr Documented by: Lactobacillus Acidophilus (Bacid -) 1 tab PEG DAILY RAUL Last Admin: 08/21/20 09:40 Dose: 1 tab Documented by: Lidocaine (Lidoderm Patch -) 1 patch TP DAILY [facility] Last Admin: 08/21/20 09:40 Dose: 1 patch Documented by: Lidocaine HCl (Xylocaine 5% Top. Ointment) 1 applic TP DAILY [facility] Last Admin: 08/21/20 09:42 Dose: 1 applic Documented by: Methadone HCl (Dolophine -) 10 mg PO BID [facility] Last Admin: 08/21/20 09:40 Dose: 10 mg Documented by: Miscellaneous (Lidoderm Patch Removal) 1 each MC DAILY@2200 [facility] Last Admin: 08/20/20 21:14 Dose: 1 each Documented by: Morphine Sulfate (Morphine Sulfate) 1 mg IVPUSH Q6H PRN PRN Reason: PAIN LEVEL 1-3 Last Admin: 08/21/20 12:40 Dose: 1 mg Documented by: Multi-Ingredient Ointment (Zinc Oxide) 1 applic TP DAILY [facility] Last Admin: 08/21/20 09:42 Dose: 1 applic Documented by: Multivitamins/Minerals (Certavite-Antioxidant Liquid) 15 ml NGT DAILY [facility] Last Admin: 08/21/20 09:39 Dose: 15 ml Documented by: Thiamine HCl (Vitamin B1 Injection -) 100 mg IVPB DAILY [facility] Last Admin: 08/21/20 09:42 Dose: 100 mg Documented by: - Objective Vital Signs: Vital Signs Temperature 99.4 F 08/21/20 02:00 Pulse Rate 116 H 08/21/20 08:34 Respiratory Rate 22 H 08/21/20 11:51 Blood Pressure 103/76 08/21/20 07:00 O2 Sat by Pulse Oximetry (%) 97 08/21/20 11:51 Constitutional: Yes: Calm Neck: Yes: Other (trache) Cardiovascular: Yes: S1, S2 Respiratory: Yes: Mechanically Ventilated Gastrointestinal: Yes: Soft Genitourinary: Yes: Uribe Present Musculoskeletal: Yes: Muscle Weakness Edema: No Neurological: Yes: Oriented Psychiatric: Yes: Oriented Labs: CBC, BMP 08/21/20 05:44 08/21/20 05:44 INR, PTT INR 1.37 (0.83-1.09) H 08/18/20 06:44 Fibrinogen 344.0 mg/dL (238-498) 07/21/20 06:00 Problem List - Problems (1) Hypoglycemia Code(s): E16.2 - HYPOGLYCEMIA, UNSPECIFIED (2) Sepsis Code(s): A41.9 - SEPSIS, UNSPECIFIED ORGANISM Qualifiers: Sepsis type: sepsis due to unspecified organism Sepsis acute organ dysfunction status: unspecified Qualified Code(s): A41.9 - Sepsis, unspecified organism (3) Hypoalbuminemia Code(s): E88.09 - OTH DISORDERS OF PLASMA-PROTEIN METABOLISM, NEC (4) Hyponatremia Code(s): E87.1 - HYPO-OSMOLALITY AND HYPONATREMIA Assessment/Plan Current Medications Generic Name Dose Route Start Last Admin Trade Name Freq PRN Reason Stop Dose Admin Amino Acids 30 ml 08/08/20 12:45 08/21/20 09:39 Prosource No Carb Liquid Pkt PO 30 ml DAILY RAUL Administration Ascorbic Acid 500 mg 07/27/20 13:00 08/21/20 09:40 Vitamin C - PO 500 mg DAILY RAUL Administration Banana Based Medical Food 1 packet 08/13/20 14:00 08/21/20 05:38 Banatrol Plus Powder Packet PO 1 packet TID RAUL Administration Collagenase 1 applic 08/05/20 19:30 08/21/20 09:40 Santyl - TP 1 applic DAILY RAUL Administration Protocol Dextrose 12.5 gm 07/08/20 07:08 08/14/20 05:29 D50w (Vial) - IVPUSH 12.5 gm PRN PRN Administration HYPOGLYCEMIA Diazepam 2 mg 08/10/20 10:41 08/20/20 22:46 Valium - PO 2 mg 2100 PRN Administration INSOMNIA Famotidine 20 mg 08/04/20 10:45 08/21/20 09:40 Pepcid PEG 20 mg DAILY RAUL Administration Folic Acid 1 mg 07/06/20 10:00 08/21/20 09:41 Folic Acid - NGT 1 mg DAILY RAUL Administration Heparin Sodium (Porcine) 5,000 unit 07/20/20 10:00 08/21/20 09:41 Heparin - SQ 5,000 unit BID RAUL Administration Hydromorphone HCl 1 mg 07/26/20 13:39 08/21/20 06:24 Dilaudid Vial - IVPUSH 1 mg Q3H PRN Administration PAIN LEVEL 4 - 6 Ertapenem 1 gm/ Sodium 50 mls @ 100 mls/hr 08/20/20 12:15 08/21/20 09:39 Chloride IVPB 100 mls/hr DAILY RAUL Administration Lactobacillus Acidophilus 1 tab 08/08/20 12:45 08/21/20 09:40 Bacid - PEG 1 tab DAILY RAUL Administration Lidocaine 1 patch 08/09/20 11:30 08/21/20 09:40 Lidoderm Patch - TP 1 patch DAILY RAUL Administration Lidocaine HCl 1 applic 07/25/20 21:50 08/21/20 09:42 Xylocaine 5% Top. Ointment TP 1 applic DAILY RAUL Administration Methadone HCl 10 mg 08/20/20 22:00 08/21/20 09:40 Dolophine - PO 10 mg BID RAUL Administration Miscellaneous 1 each 08/09/20 23:00 08/20/20 21:14 Lidoderm Patch Removal MC 1 each DAILY@2200 RAUL Administration Morphine Sulfate 1 mg 08/08/20 10:43 08/21/20 12:40 Morphine Sulfate IVPUSH 1 mg Q6H PRN Administration PAIN LEVEL 1-3 Multi-Ingredient Ointment 1 applic 07/19/20 13:30 08/21/20 09:42 Zinc Oxide TP 1 applic DAILY RAUL Administration Multivitamins/Minerals 15 ml 07/06/20 11:45 08/21/20 09:39 Certavite-Antioxidant Liquid NGT 15 ml DAILY RAUL Administration Thiamine HCl 100 mg 07/11/20 12:45 08/21/20 09:42 Vitamin B1 Injection - IVPB 100 mg DAILY RAUL Administration Impression 1. azotemia 2. hyponatremia 3. hyperkalemia 4. hypotension 5. sepsis 6. sbo 7. uti 8. liver cirrhosis 9. hypoalbuminemia 10. etoh abuse 11. substance abuse 12. psoriasis 13. acute resp failure 14. malnutrition 15. 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 ascites Plan - pt tolerating feeds - monitor sodium - repeat labs in am - cont vent support - pt is clinically slowly improving
[2020-08-21] MEDS ORDERED: MAGNESIUM SULF 50% (8.12 MEQ/2 ML-1 GM VIAL) IVPB ONE (15:07)
[2020-08-21 15:22] VITALS: TEMP 98.4
[2020-08-21 17:54] VITALS: BP 114/90; PULSE 122
== END 2020-08-21 16:30 | DRG 4 ==
LOC: JER 14:10 → JERBED 17:33 → JICU 07-03 06:47
PROVIDERS: ADMIT Internal Medicine; ATTEND Internal Medicine
PROC: 5A1955Z Respiratory Ventilation, Greater than 96 Consecutive Hours (ICD-10-PCS; 2020-07-04)
PROC: 0CHY7BZ Insertion of Airway into Mouth and Throat, Via Natural or Artificial Opening (ICD-10-PCS; 2020-07-04)
PROC: 05HN33Z Insertion of Infusion Device into Left Internal Jugular Vein, Percutaneous Approach (ICD-10-PCS; 2020-07-17)
PROC: B544ZZA Ultrasonography of Left Jugular Veins, Guidance (ICD-10-PCS; 2020-07-17)
PROC: 05HM33Z Insertion of Infusion Device into Right Internal Jugular Vein, Percutaneous Approach (ICD-10-PCS; 2020-07-24)
PROC: B543ZZA Ultrasonography of Right Jugular Veins, Guidance (ICD-10-PCS; 2020-07-24)
PROC: 0B113F4 Bypass Trachea to Cutaneous with Tracheostomy Device, Percutaneous Approach (ICD-10-PCS; principal; 2020-07-25 10:00)
PROC: 0BJ08ZZ Inspection of Tracheobronchial Tree, Via Natural or Artificial Opening Endoscopic (ICD-10-PCS; 2020-07-25 10:00)
PROC: 0W9B30Z Drainage of Left Pleural Cavity with Drainage Device, Percutaneous Approach (ICD-10-PCS; 2020-07-27)
PROC: 0DH673Z Insertion of Infusion Device into Stomach, Via Natural or Artificial Opening (ICD-10-PCS; 2020-07-31)
PROC: 30233N1 Transfusion of Nonautologous Red Blood Cells into Peripheral Vein, Percutaneous Approach (ICD-10-PCS; 2020-07-31)
PROC: 30233L1 Transfusion of Nonautologous Fresh Plasma into Peripheral Vein, Percutaneous Approach (ICD-10-PCS; 2020-07-31)
PROC: 30233K1 Transfusion of Nonautologous Frozen Plasma into Peripheral Vein, Percutaneous Approach (ICD-10-PCS; 2020-07-31)
PROC: 0BJ08ZZ Inspection of Tracheobronchial Tree, Via Natural or Artificial Opening Endoscopic (ICD-10-PCS; 2020-08-15)
DX: A41.9 Sepsis, unspecified organism (principal); F10.10 Alcohol abuse, uncomplicated; F11.10 Opioid abuse, uncomplicated; K70.30 Alcoholic cirrhosis of liver without ascites; I10 Essential (primary) hypertension; L40.9 Psoriasis, unspecified; J45.909 Unspecified asthma, uncomplicated; E87.1 Hypo-osmolality and hyponatremia; E87.5 Hyperkalemia; R79.89 Other specified abnormal findings of blood chemistry; K21.9 Gastro-esophageal reflux disease without esophagitis; J69.0 Pneumonitis due to inhalation of food and vomit; F17.210 Nicotine dependence, cigarettes, uncomplicated; E16.2 Hypoglycemia, unspecified; E88.09 Other disorders of plasma-protein metabolism, not elsewhere classified; N39.0 Urinary tract infection, site not specified; Z91.89 Other specified personal risk factors, not elsewhere classified; K70.9 Alcoholic liver disease, unspecified; K75.9 Inflammatory liver disease, unspecified; Z68.1 Body mass index [BMI] 19.9 or less, adult; E87.8 Other disorders of electrolyte and fluid balance, not elsewhere classified; F50.00 Anorexia nervosa, unspecified; J95.811 Postprocedural pneumothorax; I95.9 Hypotension, unspecified; R65.21 Severe sepsis with septic shock; L89.154 Pressure ulcer of sacral region, stage 4; J95.821 Acute postprocedural respiratory failure; J96.01 Acute respiratory failure with hypoxia; T68.XXXA Hypothermia, initial encounter; K56.609 Unspecified intestinal obstruction, unspecified as to partial versus complete obstruction; R64 Cachexia; E43 Unspecified severe protein-calorie malnutrition; D64.9 Anemia, unspecified; D69.6 Thrombocytopenia, unspecified; R00.0 Tachycardia, unspecified; E87.6 Hypokalemia; E83.42 Hypomagnesemia; E83.39 Other disorders of phosphorus metabolism; E87.3 Alkalosis
CPT/HCPCS: 31500; 31502; 36415; 36430; 36511; 36600; 49406; 49440; 71045-TC-FY; 71250-TC; 72192-TC; 74018-TC-FY; 74019-TC-FY; 74176-TC; 74177-TC; 74240-TC-FY; 76705-TC; 80048; 80053; 80076; 80307; 81003; 82040; 82042; 82105; 82140; 82150; 82272; 82436; 82465; 82550; 82553; 82607; 82746; 82803; 82945; 82962; 83010; 83516; 83540; 83550; 83605; 83615; 83690; 83735; 83880; 83935; 83986; 84100; 84133; 84157; 84300; 84439; 84443; 84478; 84481; 84484; 84703; 85025; 85027; 85045; 85379; 85384; 85610; 85730; 86704; 86706; 86707; 86708; 86709; 86850; 86900; 86901; 86922; 87040; 87070; 87075; 87077; 87086; 87102; 87107; 87116; 87186; 87205; 87206; 87210; 87340; 87389; 87902; 88108; 88305-TC; 93005; 93010; 93308; 94002; 94640; 97116-GP; 97162-GP; 99285-25; C9803; E0194; G0480; J0131; J1644; J3243; J3465; P9017; P9038; P9047; P9058; U0003

== ENCOUNTER 2024-08-19 15:34 | Inpatient (IN) | payer OTHER ==
[2024-08-19 15:44] VITALS: BMI 12.2
[2024-08-19 17:57] LABS: EPI CELLS 18 /uL (0-25.1); HYALINE CASTS 9 /uL (0-3.1); PH,URINE 5.5 (5.0-8.0); URINE APPEARANCE CLOUDY; URINE BACTERIA >9,000 /uL (0-1359); URINE BILIRUBIN 2+ (NEGATIVE); URINE COLOR DK YELLOW; URINE GLUCOSE (UA) NEGATIVE (NEGATIVE); URINE KETONE TRACE (NEGATIVE); URINE LEUK ESTERASE 2+ (NEGATIVE); URINE NITRITE POSITIVE (NEGATIVE); URINE PROTEIN 1+ (NEGATIVE); URINE WBC 721 /uL (0-25.8)
[2024-08-19 18:28] LABS: INR 1.57 (0.83-1.09); PROTHROMBIN TIME (PATIENT) 17.5 SEC (9.7-13.0)
[2024-08-19 18:30] LABS: HEMATOCRIT 25.3 % (32.4-45.2); HEMOGLOBIN 8.1 GM/dL (10.7-15.3); MCH 32.5 pg (25.7-33.7); MEAN CELL VOLUME 101.6 fl (80-96); MEAN PLT VOLUME 7.8 fl (7.5-11.1); PLATELET COUNT 316 10^3/uL (134-434); RBC 2.49 M/mm3 (3.60-5.2); WHITE BLOOD COUNT 12.2 K/mm3 (4.0-10.0)
[2024-08-19 18:31] LABS: ACTIVATED PTT 39.6 SECONDS (25.2-36.5)
[2024-08-19 19:11] LABS: POTASSIUM 4.8 mmol/L (3.5-5.1)
[2024-08-19 19:13] LABS: CALCIUM 7.3 mg/dL (8.5-10.1)
[2024-08-19 19:14] LABS: ALBUMIN 1.9 g/dl (3.4-5.0)
[2024-08-19 19:17] LABS: CREATININE 0.7 mg/dL (0.55-1.3)
[2024-08-19 19:19] LABS: BILIRUBIN,TOTAL 1.7 mg/dL (0.2-1); TOT PROT 6.1 g/dl (6.4-8.2)
[2024-08-19 19:32] LABS: URINE RBC 29.3 /uL (0-23.9)
[2024-08-19 19:34] LABS: ANISOCYTOSIS 2+; MACROCYTOSIS 0
[2024-08-19] MEDS: SODIUM CHLORIDE 0.9% 500 ML INFUS.BAG IV ONE (20:33)
[2024-08-19] MEDS: DICYCLOMINE HCL 10 MG CAPSULE PO ONE ×2 (20:47→20:56)
[2024-08-19] MEDS ORDERED: ACETAMINOPHEN INJECTION 100 ML ONE (20:50)
[2024-08-19] MEDS ORDERED: DICYCLOMINE HCL 10 MG CAPSULE ONE (20:50)
[2024-08-19] MEDS: ACETAMINOPHEN 1000 MG/100 ML BAG IVPB ONE (20:56)
[2024-08-19] MEDS ORDERED: PIPERACILLIN/TAZOB 4.5 GM 4.5 GM/100 ML BAG IVPB ONE (21:03)
[2024-08-19] MEDS: PIPERACILLIN/TAZOB 4.5 GM 4.5 GM in DEXTROSE 5%-WATER 100 ML IVPB ONE (21:12)
[2024-08-19] MEDS: TIGECYCLINE 100 MG in DEXTROSE 5%-WATER - 100 ML IVPB ONE (22:51)
[2024-08-20] MEDS ORDERED: ALBUTEROL SO4 HFA INHALER IH PRN (05:33)
[2024-08-20 07:29] LABS: BASO % 0.1 % (0-2.0); EOS % 0.2 % (0-4.5); HEMATOCRIT 26.5 % (32.4-45.2); HEMOGLOBIN 8.3 GM/dL (10.7-15.3); LYMPH % 12.7 % (8-40); MCH 32.6 pg (25.7-33.7); MCHC 31.4 g/dl (32.0-36.0); MEAN CELL VOLUME 103.6 fl (80-96); MEAN PLT VOLUME 6.7 fl (7.5-11.1); MONO % 1.7 % (3.8-10.2); NEUT % 85.3 % (42.8-82.8); PLATELET COUNT 290 10^3/uL (134-434); RBC 2.56 M/mm3 (3.60-5.2); RDW 25.7 % (11.6-15.6); WHITE BLOOD COUNT 14.4 K/mm3 (4.0-10.0)
[2024-08-20 08:04] LABS: POTASSIUM 3.5 mmol/L (3.5-5.1)
[2024-08-20 08:06] LABS: BLOOD UREA NITROGEN 16.9 mg/dL (7-18)
[2024-08-20 08:07] LABS: CALCIUM 7.2 mg/dL (8.5-10.1); MAGNESIUM 1.3 mg/dL (1.8-2.4)
[2024-08-20 08:10] LABS: CREATININE 0.5 mg/dL (0.55-1.3); PHOSPHOROUS 3.8 mg/dL (2.5-4.9)
[2024-08-20] MEDS ORDERED: methaDONE HCL 10 MG TABLET PO SCH (10:15)
[2024-08-20] MEDS ORDERED: methaDONE HCL 40 MG DISPERSABLE TABLET ONE (10:33)
[2024-08-20] MEDS ORDERED: FAMOTIDINE 20 MG TABLET ONE ×2 (14:19→22:12)
[2024-08-20] MEDS: FAMOTIDINE 20 MG TABLET PO SCH ×2 (14:22→14:23)
[2024-08-20] MEDS ORDERED: DOCUSATE SODIUM 100 MG CAPSULE (FP) PO ONE (22:12)
[2024-08-20] MEDS ORDERED: SENNOSIDES 8.6MG TABLET (FP) PO ONE (22:12)
[2024-08-20] MEDS: SENNOSIDES 8.6MG TABLET (FP) PO SCH (22:37)
[2024-08-20] MEDS: DOCUSATE SODIUM 100 MG CAPSULE (FP) PO SCH (22:37)
[2024-08-21] MEDS ORDERED: methaDONE HCL 40 MG DISPERSABLE TABLET ONE (06:31)
[2024-08-21 07:00] LABS: HEMATOCRIT 21.1 % (32.4-45.2); MCH 33.5 pg (25.7-33.7); MCHC 32.7 g/dl (32.0-36.0); MEAN CELL VOLUME 102.4 fl (80-96); MEAN PLT VOLUME 6.9 fl (7.5-11.1); PLATELET COUNT 130 10^3/uL (134-434); RBC 2.06 M/mm3 (3.60-5.2); RDW 25.1 % (11.6-15.6); WHITE BLOOD COUNT 4.9 K/mm3 (4.0-10.0)
[2024-08-21 07:30] LABS: HEMOGLOBIN 6.9 GM/dL (10.7-15.3)
[2024-08-21 08:05] LABS: CHLORIDE 101 mmol/L (98-107); POTASSIUM 3.8 mmol/L (3.5-5.1); SODIUM 134 mmol/L (136-145)
[2024-08-21 08:09] LABS: ALBUMIN 1.5 g/dl (3.4-5.0); ANION GAP 7 mmol/L (4-13); BLOOD UREA NITROGEN 12.8 mg/dL (7-18); CALCIUM 6.7 mg/dL (8.5-10.1); CO2 27 mmol/L (21-32); GLUCOSE,RANDOM 70 mg/dL (74-106)
[2024-08-21 08:12] LABS: CREATININE 0.4 mg/dL (0.55-1.3); SGOT/AST 45 U/L (15-37); SGPT/ALT 28 U/L (13-61)
[2024-08-21 08:13] LABS: BILIRUBIN,TOTAL 1.2 mg/dL (0.2-1)
[2024-08-21 08:14] LABS: TOT PROT 5.1 g/dl (6.4-8.2)
[2024-08-21 08:19] LABS: ALK PHOS 366 U/L (45-117)
[2024-08-21 08:42] LABS: ANISOCYTOSIS 2+; MACROCYTOSIS 1+
[2024-08-21 08:49] LABS: PLATELET ESTIMATE SLT DECREASE
[2024-08-21 10:38] LABS: HEMOGLOBIN 7.9 GM/dL (10.7-15.3); MCH 33.6 pg (25.7-33.7); MEAN CELL VOLUME 101.8 fl (80-96); MEAN PLT VOLUME 6.5 fl (7.5-11.1); PLATELET COUNT 236 10^3/uL (134-434); RBC 2.36 M/mm3 (3.60-5.2); RDW 24.8 % (11.6-15.6); WHITE BLOOD COUNT 8.7 K/mm3 (4.0-10.0)
[2024-08-21] MEDS ORDERED: FAMOTIDINE 20 MG TABLET ONE (11:12)
[2024-08-21] MEDS ORDERED: PIPERACILLIN/TAZOB 3.375 GM 3.375 GM/50 ML BAG IVPB ONE ×2 (11:17→18:02)
[2024-08-21] MEDS: PIPERACILLIN/TAZOB 3.375 GM 3.375 GM in DEXTROSE 5%-WATER - 50 ML IVPB SCH (11:21)
[2024-08-21 11:42] LABS: ANISOCYTOSIS 2+; MACROCYTOSIS 1+
[2024-08-21 11:45] LABS: PLATELET ESTIMATE ADEQUATE
[2024-08-22] MEDS: SODIUM CHLORIDE 500 ML IV STA (06:26)
[2024-08-22] MEDS: PIPERACILLIN/TAZOB 3.375 GM 3.375 GM in DEXTROSE 5%-WATER - 50 ML IVPB SCH (18:48)
[2024-08-22] MEDS: PIPERACILLIN/TAZOB 3.375 GM 50 ML IVPB SCH (19:38)
[2024-08-23 11:10] LABS: BASO % 0.1 % (0-2.0); EOS % 0.1 % (0-4.5); LYMPH % 9.4 % (8-40); MCH 34.2 pg (25.7-33.7); MCHC 32.6 g/dl (32.0-36.0); MEAN CELL VOLUME 104.8 fl (80-96); MEAN PLT VOLUME 7.4 fl (7.5-11.1); MONO % 12.2 % (3.8-10.2); NEUT % 78.2 % (42.8-82.8); PLATELET COUNT 98 10^3/uL (134-434); RBC 1.81 M/mm3 (3.60-5.2); RDW 24.6 % (11.6-15.6); WHITE BLOOD COUNT 5.7 K/mm3 (4.0-10.0)
[2024-08-23 11:19] LABS: HEMOGLOBIN 6.2 GM/dL (10.7-15.3)
[2024-08-23 11:20] LABS: CHLORIDE 98 mmol/L (98-107); POTASSIUM 3.3 mmol/L (3.5-5.1); SODIUM 134 mmol/L (136-145)
[2024-08-23 11:36] LABS: ALBUMIN 1.5 g/dl (3.4-5.0); ANION GAP 7 mmol/L (4-13); BLOOD UREA NITROGEN 5.3 mg/dL (7-18); CALCIUM 6.9 mg/dL (8.5-10.1); CO2 29 mmol/L (21-32); GLUCOSE,RANDOM 94 mg/dL (74-106)
[2024-08-23 11:38] LABS: SGPT/ALT 55 U/L (13-61)
[2024-08-23 11:39] LABS: CREATININE 0.5 mg/dL (0.55-1.3); SGOT/AST 148 U/L (15-37)
[2024-08-23 11:40] LABS: ALK PHOS 328 U/L (45-117)
[2024-08-23 11:44] LABS: ANISOCYTOSIS 2+; MACROCYTOSIS 1+
[2024-08-23] MEDS: POTASSIUM CHLORIDE ORAL LIQUID 20 MEQ/15 ML PO ONE (14:16)
[2024-08-23] MEDS: CEFTRIAXONE 1 GM in DEXTROSE 5%-WATER - 50 ML IVPB SCH (14:16)
[2024-08-23 15:19] LABS: MAGNESIUM 0.9 mg/dL (1.8-2.4)
[2024-08-23 15:24] LABS: N-TERMINAL BNP 1516.5 pg/ml (5-125)
[2024-08-23] MEDS: ACETAMINOPHEN 325 MG TABLET (FP) PO PRN (15:53)
[2024-08-23] MEDS: MAGNESIUM 1GM/D5W - 1 GM/100 ML IVPB IVPB ONE ×2 (18:02→21:50)
[2024-08-23] MEDS: CALCIUM GLUC IN NACL, ISO-OSM 1 GM/50 ML BAG IVPB ONE (18:02)
[2024-08-23 23:03] VITALS: RESP 18
[2024-08-24] MEDS: CALCIUM GLUC IN NACL, ISO-OSM 1 GM/50 ML BAG IVPB ONE (00:41)
[2024-08-24 08:59] LABS: BASO % 0.2 % (0-2.0); EOS % 0.1 % (0-4.5); HEMATOCRIT 26.7 % (32.4-45.2); HEMOGLOBIN 8.8 GM/dL (10.7-15.3); LYMPH % 6.2 % (8-40); MCH 32.1 pg (25.7-33.7); MCHC 32.9 g/dl (32.0-36.0); MEAN CELL VOLUME 97.5 fl (80-96); MEAN PLT VOLUME 7.8 fl (7.5-11.1); NEUT % 80.5 % (42.8-82.8); PLATELET COUNT 135 10^3/uL (134-434); RBC 2.73 M/mm3 (3.60-5.2); RDW 24.9 % (11.6-15.6); WHITE BLOOD COUNT 7.5 K/mm3 (4.0-10.0)
[2024-08-24 09:24] LABS: POTASSIUM 3.6 mmol/L (3.5-5.1)
[2024-08-24 09:27] LABS: CALCIUM 7.8 mg/dL (8.5-10.1)
[2024-08-24 09:28] LABS: ALBUMIN 1.5 g/dl (3.4-5.0); BLOOD UREA NITROGEN 5.3 mg/dL (7-18)
[2024-08-24 09:31] LABS: CREATININE 0.4 mg/dL (0.55-1.3)
[2024-08-24 09:33] LABS: BILIRUBIN,TOTAL 1.3 mg/dL (0.2-1); TOT PROT 5.1 g/dl (6.4-8.2)
[2024-08-24] MEDS: CEFTRIAXONE 1 G/50 ML PREMIX 50 ML IVPB SCH (10:58)
[2024-08-24 14:21] VITALS: BP 102/72; PULSE 89; TEMP 98.2
== END 2024-08-24 15:44 | disposition short-term general hospital (02) | DRG 252 ==
LOC: JER 15:34 → JERBED 21:09 → J6S 08-21 20:17
PROVIDERS: ADMIT Internal Medicine; ATTEND Internal Medicine
DX: K91.89 Other postprocedural complications and disorders of digestive system (principal); K63.2 Fistula of intestine; F11.20 Opioid dependence, uncomplicated; F19.10 Other psychoactive substance abuse, uncomplicated; E43 Unspecified severe protein-calorie malnutrition; Z68.1 Body mass index [BMI] 19.9 or less, adult; N39.0 Urinary tract infection, site not specified; D64.9 Anemia, unspecified; R64 Cachexia; L40.8 Other psoriasis; I10 Essential (primary) hypertension; K74.60 Unspecified cirrhosis of liver; J45.909 Unspecified asthma, uncomplicated; B96.20 Unspecified Escherichia coli [E. coli] as the cause of diseases classified elsewhere
CPT/HCPCS: 36415; 36430; 71045-TC-FY; 74177-TC; 80048; 80053; 81003; 82272; 83735; 83880; 84100; 84703; 85025; 85610; 85730; 86850; 86900; 86901; 86922; 87086; 87186; 87635; 93005; 93010; 99285-25; J0131; J3243; P9058; Q9967

== ENCOUNTER 2024-10-07 14:41 | Emergency (ER) | payer OTHER ==
[2024-10-07 15:36] VITALS: BMI 12.0
[2024-10-07 16:46] LABS: VENOUS BASE EXCESS 0.7 mmol/L (-2-2); VENOUS PCO2 63.3 mmHg (38-52); VENOUS PH 7.273 (7.310-7.410)
[2024-10-07] MEDS: SODIUM CHLORIDE 0.9% 500 ML INFUS.BAG IV ONE (16:49)
[2024-10-07 16:50] LABS: BASO % 0.7 % (0-2.0); EOS % 1.7 % (0-4.5); HEMOGLOBIN 10.6 GM/dL (10.7-15.3); LYMPH % 23.2 % (8-40); MCHC 32.2 g/dl (32.0-36.0); MEAN CELL VOLUME 93.1 fl (80-96); MEAN PLT VOLUME 7.2 fl (7.5-11.1); MONO % 10.3 % (3.8-10.2); NEUT % 64.1 % (42.8-82.8); PLATELET COUNT 359 10^3/uL (134-434); RBC 3.55 M/mm3 (3.60-5.2); RDW 17.5 % (11.6-15.6); WHITE BLOOD COUNT 5.2 K/mm3 (4.0-10.0)
[2024-10-07 17:06] LABS: ALBUMIN 2.3 g/dl (3.4-5.0); ANION GAP 5 mmol/L (4-13); BLOOD UREA NITROGEN 14.1 mg/dL (7-18); CALCIUM 8.5 mg/dL (8.5-10.1); CHLORIDE 102 mmol/L (98-107); CO2 29 mmol/L (21-32); POTASSIUM 6.2 mmol/L (3.5-5.1); SODIUM 137 mmol/L (136-145)
[2024-10-07 17:07] LABS: GLUCOSE,RANDOM 90 mg/dL (74-106)
[2024-10-07 17:09] LABS: EPI CELLS 3 /uL (0-25.1); HYALINE CASTS 1 /uL (0-3.1); PH,URINE 6.5 (5.0-8.0); SGOT/AST 92 U/L (15-37); SGPT/ALT 21 U/L (13-61); URINE APPEARANCE CLOUDY; URINE BACTERIA 8649 /uL (0-1359); URINE BILIRUBIN NEGATIVE (NEGATIVE); URINE COLOR YELLOW; URINE GLUCOSE (UA) NEGATIVE (NEGATIVE); URINE KETONE TRACE (NEGATIVE); URINE LEUK ESTERASE 3+ (NEGATIVE); URINE NITRITE POSITIVE (NEGATIVE); URINE PROTEIN TRACE (NEGATIVE); URINE RBC 69 /uL (0-23.9); URINE UROBILINOGEN 0.2 mg/dL (0.2-1.0); URINE WBC 1402 /uL (0-25.8)
[2024-10-07 17:10] LABS: CREATININE 0.6 mg/dL (0.55-1.3)
[2024-10-07 17:11] LABS: BILIRUBIN,TOTAL 0.4 mg/dL (0.2-1)
[2024-10-07 17:12] LABS: ALK PHOS 204 U/L (45-117)
[2024-10-07 17:30] LABS: LACTIC ACID 4.7 mmol/L (0.4-2.0)
[2024-10-07] MEDS ORDERED: PIPERACILLIN/TAZOB 3.375 GM 3.375 GM/50 ML BAG IVPB ONE (18:48)
[2024-10-07] MEDS ORDERED: VANCOMYCIN 1 GM PREMIX (F) 1 GM/200 ML BAG ONE (18:48)
[2024-10-07] MEDS: SODIUM CHLORIDE 0.9% 1000 ML INFUS.BAG IV STA (18:49)
[2024-10-07] MEDS: PIPERACILLIN/TAZOB 3.375 GM 3.375 GM in DEXTROSE 5%-WATER - 50 ML IVPB ONE (18:49)
[2024-10-07] MEDS: VANCOMYCIN 1,000 MG in DEXTROSE 5%-WATER - 250 ML IVPB ONE (19:14)
[2024-10-07 20:14] VITALS: BP 98/71; RESP 18
[2024-10-07 21:32] VITALS: PULSE 92; TEMP 98
== END 2024-10-07 23:23 | disposition short-term general hospital (02) ==
LOC: JER 14:41
PROC: 3E03329 Introduction of Other Anti-infective into Peripheral Vein, Percutaneous Approach (ICD-10-PCS; principal; 2024-10-07)
PROC: 3E033GC Introduction of Other Therapeutic Substance into Peripheral Vein, Percutaneous Approach (ICD-10-PCS; 2024-10-07)
PROC: 3E0337Z Introduction of Electrolytic and Water Balance Substance into Peripheral Vein, Percutaneous Approach (ICD-10-PCS; 2024-10-07)
DX: S31.819A Unspecified open wound of right buttock, initial encounter (principal); L08.9 Local infection of the skin and subcutaneous tissue, unspecified; L98.8 Other specified disorders of the skin and subcutaneous tissue; Z20.822 Contact with and (suspected) exposure to COVID-19; X58.XXXA Exposure to other specified factors, initial encounter
CPT/HCPCS: 0241U-QW; 36415; 71045-TC-FY; 80053; 81003; 82803; 83605; 84484; 85025; 87040; 87070; 87086; 87186; 87205; 93005; 93010; 99285-25